=== PATIENT | male | born 1960 | race Caucasian/White ===

== ENCOUNTER 2023-04-11 11:36 | Outpatient (OUT) | payer MEDICARE, SELFPAY ==
[2023-04-11 12:19] LABS: Basophils Percent Auto 0.3 % (0.2-2.0); Eosinophils Absolute Auto 0.1 10^3/uL (0.0-0.7); Eosinophils Percent Auto 1.8 % (0.9-7.0); Hematocrit 44.8 % (42.0-54.0); Hemoglobin 14.2 g/dL (14.0-18.0); Immature Granulocytes Abs Auto 0.07 10^3/uL (0.00-0.03); Immature Granulocytes Pct Auto 2.1 % (0.0-0.5); Lymphocytes Absolute Auto 1.2 10^3/uL (1.2-3.8); Lymphocytes Percent Auto 35.9 % (20.5-60.0); Mean Corpuscular HGB Conc 31.7 g/dL (29.9-35.2); Mean Corpuscular Hemoglobin 26.6 pg (25.9-34.0); Mean Corpuscular Volume 83.9 fL (80.0-94.0); Mean Platelet Volume 9.3 fL (9.5-13.5); Monocytes Absolute Auto 0.2 10^3/uL (0.3-0.8); Monocytes Percent Auto 7.2 % (1.7-12.0); Neutrophils Absolute Auto 1.8 10^3/uL (1.4-6.5); Neutrophils Percent Auto 52.7 % (43.0-75.0); Platelet Count 116 10^3/uL (150-450); Red Blood Count 5.34 10^6/uL (4.70-6.10); Red Cell Distribution Width 15.9 % (11.0-15.0); White Blood Count 3.3 10^3/uL (4.0-11.0)
[2023-04-11 12:30] LABS: Alanine Aminotransferase 54 U/L (16-63); Albumin Globulin Ratio 1.1; Albumin Level 3.8 g/dL (3.4-5.0); Alkaline Phosphatase 92 U/L (46-116); Anion Gap 10.2; Aspartate Amino Transferase 36 U/L (15-37); BUN Creatinine Ratio 12.1; Bilirubin Total 0.6 mg/dL (0.2-1.0); Calcium 9.2 mg/dL (8.5-10.1); Carbon Dioxide 29.8 mmol/L (21.0-32.0); Chloride 108 mmol/L (98-107); Estimated GFR (African America 48 (>=60); Estimated GFR (Non-African Ame 40 (>=60); Globulin 3.5 g/dL; Glucose 104 mg/dL (74-106); Sodium 143 mmol/L (136-145); Total Protein 7.3 g/dL (6.4-8.2)
== END 2023-04-11 11:37 | disposition home or self-care (01) ==
LOC: LAB 11:43
PROVIDERS: PCP Family Medicine; Visit Provider Family Medicine
DX: R10.84 Generalized abdominal pain (principal)
CPT/HCPCS: 36415; 80053; 83690; 85025

== ENCOUNTER 2023-05-26 08:56 | Outpatient (OUT) | payer MEDICARE, SELFPAY ==
[2023-05-26 09:43] LABS: BUN Creatinine Ratio 14.4; Calcium 9.3 mg/dL (8.5-10.1); Carbon Dioxide 28.4 mmol/L (21.0-32.0); Chloride 106 mmol/L (98-107); Estimated GFR (African America 51 (>=60); Estimated GFR (Non-African Ame 42 (>=60); Glucose 114 mg/dL (74-106); Potassium 4.4 mmol/L (3.5-5.1); Sodium 141 mmol/L (136-145)
[2023-05-27 12:09] LABS: PTH, Intact 27 pg/mL (15-65)
== END 2023-05-26 08:57 | disposition home or self-care (01) ==
LOC: LAB 08:59
PROVIDERS: PCP Family Medicine; Visit Provider Internal Medicine
DX: C83.30 Diffuse large B-cell lymphoma, unspecified site (principal); Z76.82 Awaiting organ transplant status; I12.9 Hypertensive chronic kidney disease with stage 1 through stage 4 chronic kidney disease, or unspecified chronic kidney disease; N18.30 Chronic kidney disease, stage 3 unspecified; N25.81 Secondary hyperparathyroidism of renal origin
CPT/HCPCS: 36415; 80048; 83970; 84100

== ENCOUNTER 2023-08-11 08:47 | Outpatient (OUT) | payer MEDICARE, SELFPAY ==
[2023-08-11 09:19] LABS: Basophils Percent Auto 0.2 % (0.2-2.0); Eosinophils Absolute Auto 0.2 10^3/uL (0.0-0.7); Eosinophils Percent Auto 4.2 % (0.9-7.0); Hematocrit 44.4 % (42.0-54.0); Hemoglobin 13.9 g/dL (14.0-18.0); Immature Granulocytes Abs Auto 0.05 10^3/uL (0.00-0.03); Immature Granulocytes Pct Auto 1.1 % (0.0-0.5); Lymphocytes Absolute Auto 1.4 10^3/uL (1.2-3.8); Lymphocytes Percent Auto 29.8 % (20.5-60.0); Mean Corpuscular HGB Conc 31.3 g/dL (29.9-35.2); Mean Corpuscular Hemoglobin 26.8 pg (25.9-34.0); Mean Corpuscular Volume 85.5 fL (80.0-94.0); Mean Platelet Volume 10.1 fL (9.5-13.5); Monocytes Absolute Auto 0.3 10^3/uL (0.3-0.8); Monocytes Percent Auto 7.3 % (1.7-12.0); Neutrophils Absolute Auto 2.6 10^3/uL (1.4-6.5); Neutrophils Percent Auto 57.4 % (43.0-75.0); Platelet Count 124 10^3/uL (150-450); Red Blood Count 5.19 10^6/uL (4.70-6.10); Red Cell Distribution Width 15.1 % (11.0-15.0); White Blood Count 4.5 10^3/uL (4.0-11.0)
[2023-08-11 09:33] LABS: Alanine Aminotransferase 76 U/L (16-63); Albumin Globulin Ratio 0.9; Albumin Level 3.6 g/dL (3.4-5.0); Alkaline Phosphatase 120 U/L (46-116); Anion Gap 10.1; Aspartate Amino Transferase 31 U/L (15-37); Bilirubin Total 0.6 mg/dL (0.2-1.0); Calcium 9.1 mg/dL (8.5-10.1); Chloride 104 mmol/L (98-107); Estimated GFR (African America 52 (>=60); Estimated GFR (Non-African Ame 43 (>=60); Globulin 3.8 g/dL; Glucose 109 mg/dL (74-106); Lactate Dehydrogenase 209 U/L (85-227); Potassium 4.1 mmol/L (3.5-5.1); Sodium 139 mmol/L (136-145); Total Protein 7.4 g/dL (6.4-8.2)
== END 2023-08-11 08:48 | disposition home or self-care (01) ==
LOC: LAB 08:48
PROVIDERS: PCP Family Medicine
DX: C83.39 Diffuse large B-cell lymphoma, extranodal and solid organ sites (principal)
CPT/HCPCS: 36415; 80053; 83615; 85025

== ENCOUNTER 2023-09-10 10:19 | Outpatient (OUT) | payer MEDICARE, SELFPAY ==
--- OUTSIDE RECORDS SUMMARY | 2023-09-10 10:28 | XMS_ITS | CCD ---
Author Name Unknown Address [address] [facility] [id number] [place] [address] Organization [facility] Care Team Providers Care Solar Sales Rep Name Role Phone Christopher Watkins Unavailable Unavailable Nael Farias Unavailable Unavailable Nael Farias Unavailable Unavailable Unavailable MD Nael Farias 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 Provider [phone] MD Victor Hugo Farrell Attending Provider Andrea, Dr. Nael Brand 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 Unava ilable Anirudh Sears Attending Unavailable Andrea, Dr. Nael Brand 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 Unava ilable Anirudh Sears Attending Unavailable Anirudh Sears Attending Unavailable Andrea, Dr. Nael Brand 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 Unava ilable Unavailable Unavailable SANDRA COLE Admitting Unavailable SANDRA COLE Consulting Unavailable SANDRA COLE Attending Unavailable HEMEEVELYN ., DR GARCIA 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 Unavailable HEMEYER ., DR GARCIA Consulting Unavailable HEMEYER ., DR GARCIA Attending Unavailable HEMEYER ., DR GARCIA Admitting Unavailable HEMEYER ., DR GARCIA 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 Unavailable MISC, DR MATTHEW Consulting Unavailable HEMEYER ., DR GARCIA 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 Unavailable MISC, DR MATTHEW Attending Unavailable MISC, DR MATTHEW Admitting Unavailable MISC, DR MATTHEW Admitting Unavailable HEMEYER ., DR GARCIA 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 Unavailable MISC, DR MATTHEW Consulting Unavailable MISC, DR MATTHEW Attending Unavailable MISC, DR MATTHEW Admitting Unavailable HEMEYER ., DR GARCIA 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 Unavailable MISC, DR MATTHEW Consulting Unavailable MISC, DR MATTHEW Attending Unavailable MISC, DR MATTHEW Admitting Unavailable HEMEYER ., DR GARCIA 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 Unavailable MISC, DR MATTHEW Consulting Unavailable MISC, DR MATTHEW Attending Unavailable ZIEBER, DR JS Hubbard Consulting Unavailable HEMEYER ., DR GARCIA 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 Unavailable HEMEYER ., DR GARCIA Consulting Unavailable HEMEYER ., DR GARCIA Attending Unavailable HEMEYER ., DR GARCIA Admitting Unavailable MISC, DR MATTHEW Admitting Unavailable HEMEYER ., DR GARCIA 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 Unavailable MISC, DR MATTHEW Consulting Unavailable MISC, DR MATTHEW Attending Unavailable Unavailable Unavailable Dr. Fab Clark Attending Unavailable Hemeyer, Dr. Nael Brand [facility] Unava ilable Farrell, Victor Hugo Attending Unavailable HemeNael rivas [facility] Care Unavailable Farrell, Victor Hugo Admitting Unavailable Farrell, Victor Hugo Attending Unavailable HemeNael rivas [facility] Care Unavailable Farrell, Victor Hugo Admitting Unavailable Sears, Anirudh C Admitting Unavailable Sears, Anirudh C Attending Unavailable Andrea, Dr. Nael Brand [facility] Unava ilable Sears, Anirudh C Admitting Unavailable Sears, Anirudh C Attending Unavailable Andrea, Dr. Nael Brand 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 Unava ilable Hemeyer, Dr. Nael Brand [facility] Care Unava ilable Neha, Dr. White Attending Unavailable Neha, Dr. White Referring Unavailable Hemeyer, Dr. Nael Brand [facility] Care Unava ilable Neha, Dr. White Attending Unavailable Neha, Dr. White Referring Unavailable Hemeyer, Dr. Nael Brand [facility] Care Unava ilable Neha, Dr. White Attending Unavailable Neha, Dr. White Referring Unavailable Hemeyer, Dr. Nael Brand 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 Unava ilable Hemeyer, Dr. Nael Brand Referring Unava ilable Kelsey, Dr. Sandra Lopez Attending Unav ailable Hemeyer, Dr. Nael Brand [facility] Care Unava ilable Sears, Anirudh C Attending Unavailable Sears, Anirudh C Admitting Unavailable NOHELIA MACHADO Attending Unavailable SEARS, ANIRUDH C Attending Unavailable NAEL FARIAS [facility] Care Unavailab Nael Garcia MD 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 Provider Anirudh Sears MD Unavailable Allergies Allergy Classification Reported Allergen(s) Allergy Type Date of Onset Reaction(s) Facility (20 sources) Dapsonhardik; Translations: [dapsone] Drug Allergy 06-13-20 22 Rash [facility] (20 sources) Prochlorperazine; Translations: [Compazine] Drug Allergy [facility] Repository (20 sources) Sulfamethoxazole / Trimethoprim; Translations: [Bactrim DS TABS] Drug Allergy 08-04-20 23 Hives, Itching, Rash [facility] Work Phone: (16 sources) voriconazole; Translations: [voriconazole] Drug Allergy 08-04-20 23 Other [facility] Repository (1 source) Penicillins Allergy to substance 12-04-19 18 Unknown Reaction [facility] (6 sources) Prochlorperazine; Translations: [prochlorperazine] Drug Allergy 12-04-19 18 Other, Shortness of breath [facility] (3 sources) Sulfamethoxazole; Translations: [sulfamethoxazole] Drug Allergy 12-04-19 18 Unknown Reaction [facility] (3 sources) Trimethoprim; Translations: [trimethoprim] Drug Allergy 12-04-19 18 Unknown Reaction [facility] (1 source) Capsaicin Drug Allergy [facility] (1 source) Sulfamethoxazole / Trimethoprim Drug Allergy [facility] (1 source) Sulfamethoxazole / Trimethoprim; Translations: [SULFAMETHOXAZOLE-TR IMETHOPRIM] Drug Allergy 08-04-20 [facility] Medications Current Medications Medication Drug Class(es) Dates Sig (Normalized) Sig (Original) breath-actuated 120 actuat beclomethasone dipropionate 0.08 mg/actuat metered dose inhaler (1 source) Corticosteroid Start: 09-09-2023 End: 09-08-2024 beclomethasone dipropionate (Qvar) 80 mcg/actuation inhaler Indications: CVID (common variable immunodeficiency) ([facility]) Inhale 2 Inhalations 2 times a day. Rinse mouth out after inhalation. 10.6 g 3 09/09/2023 09/08/2024 Active calcitriol 0.50320 mg oral capsule (20 sources) Vitamin D3 Analog Start: 06-13-2022 take 0.5 ug by mouth twice daily Calcitriol Active 0.5 MCG PO Twice daily June 13, 2022 12:00am 2xW; weekends Start: 07-28-2019 calcitriol (Ro caltrol) 0.25 mcg capsule Take by mouth. 0 07/28/2019 Active Start: 07-28-2019 Calcitriol 0.2 5 MCG Oral Capsule TAKE 2 CAPSULES OVER THE WEEKENDS AND 1 CAPSULE THE OTHER DAYS Quantity: 117 Refills: 3 Ordered: 07-Apr-2023 Christopher Watkins MD Start : 28-Jul-2019 Active Start: 07-28-2019 take 1 capsule by [facility] every other day Calcitriol 0.25 MCG Oral Capsule One cap every other day. Quantity: 15 Refills: 10 Christopher Watkins MD Start : 28-Jul-2019 Active cetirizine hydrochloride 10 mg oral tablet (20 sources) Histamine-1 Receptor Antagonist take 1 tablet by mouth once daily cetirizine (ZyrTEC) 10 mg tablet Take 1 tablet (10 mg) by mouth once daily. 0 Active ZyrTEC Allergy 1 0 MG Oral Tablet Quantity: 0 Refills: 0 Ordered: 08-Mar-2019 DO Active Cetirizine / Pseudoephedrine (1 source) alpha-Adrenergic Agonist, Histamine-1 Receptor Antagonist Start: 06-13-2022 take 1 tablet by mouth once daily, then take 1 tablet by mouth every twelve hours Cetirizine-Pseudoephedrine (Zyrtec-D) 5-120 mg Tablet Extended Release 12 Hr Active 1 TAB PO Daily June 13, 2022 12:00am dextran 70 1 mg/ml / glycerin 2 mg/ml / hypromellose 3 mg/ml ophthalmic solution (2 sources) Plasma Volume Supervisor Asbestos Removal, Non-Standardized Chemical Allergen Start: 02-27-2019 artificial tears, pvjfywj-hfypfay-[id number], 0.1-0.3-0.2 % ophthalmic solution Administer into affected eye(s) 4 times a day as needed. 0 02/27/2019 Active diphenhydrAMINE hydrochloride 25 mg oral tablet (18 sources) Histamine-1 Receptor Antagonist Start: 01-16-2021 diphenhydrAMINE (Benadryl Allergy) 25 mg tablet Take by mouth. 0 01/16/2021 Active Start: 01-16-2021 Benadryl Aller gy 25 MG Oral Tablet take 20 minutes prior to infusion Quantity: 10 Refills: 0 Ordered: 16-Jan-2021 Kelsey GRACE, Sandra Daniel Start : 16-Jan-2021 Active 14 actuat fluticasone furoate 0.1 mg/actuat dry powder inhaler (16 sources) Corticosteroid Start: 04-09-2023 take 1 puff(s) by mouth once daily Arnuity Ellipta 100 mcg/actuation inhaler INHALE 1 PUFF BY MOUTH DAILY (rinse mouth after use) 0 04/09/2023 Active Start: 10-09-2022 take 1 puff(s) by mo [facility] once daily Arnuity Ellipta 100 MCG/ACT Inhalation Aerosol Powder Breath Activated INHALE 1 PUFF BY MOUTH DAILY Quantity: 30 Refills: 0 Ordered: 06-Nov-2022 DO Start : 09-Oct-2022 Active Start: 03-13-2018 take 1 spray(s) nasa l route once daily Fluticasone Propionate 50 MCG/ACT Nasal Suspension USE 1 SPRAY IN EACH NOSTRIL ONCE DAILY. Quantity: 1 Refills: 3 DO Start : 13-Mar-2018 Active Magnesium (16 sources) magnesium 200 mg tablet Take 1 tablet (200 mg) by mouth. 0 Active End: 08-13-2023 take 1 tablet by mouth once daily magnesium 200 mg tablet Take 1 tablet (200 mg) by mouth once daily. 0 08/13/2023 Discontinued (Med List Cleanup) take 1 tablet by [facility] once daily Magnesium 200 MG Oral Tablet TAKE 1 TABLET DAILY DIRECTED. Quantity: 0 Refills: 0 Ordered: 08-Nov-2021 DO Active magnesium gluconate 250 mg oral tablet (2 sources) Start: 06-13-2022 take 250 mg by mouth twice daily Magnesium Gluconate Active 250 MG PO Twice daily June 13, 2022 12:00am magnesium glucon ate 12.5 mg magne- sium (250 mg) tablet every 12 hours. 0 Active methocarbamol 750 mg oral tablet (15 sources) Muscle Relaxant Start: 12-19-2021 take 1 tablet by mouth three times daily as needed methocarbamol (Robaxin) 750 mg tablet Take 1 tablet (750 mg) by mouth 3 times a day as needed. 0 12/19/2021 Active omeprazole 20 mg delayed release oral capsule (20 sources) Proton Pump Inhibitor Start: 02-09-2016 End: 06-13-2022 omeprazole (PriLOSEC) [address] capsule Take by mouth once daily. 0 02/09/2016 Active Start: 02-09-2016 Omeprazole 20 MG Oral Capsule Delayed Release Quantity: 0 Refills: 0 Ordered: 09-Feb-2016 DO Start : 09-Feb-2016 Active oxyCODONE hydrochloride 5 mg oral tablet (3 sources) Opioid Agonist Start: 11-12-2018 oxyCODONE (Roxicodone) 5 mg immediate release tablet Take by mouth every 4 hours if needed. 0 11/12/2018 Active potassium 99 mg extended release oral tablet (14 sources) Start: 06-13-2022 take 99 mg by mouth once daily Potassium Active 99 MG PO Daily June 13, 2022 12:00am potassium citrate 99 mg oral tablet (2 sources) take 1 tablet by mouth once daily potassium citrate 99 mg capsule Take 1 tablet by mouth once daily. 0 Active valsartan 80 mg oral tablet (9 sources) Angiotensin 2 Receptor Muriel Start: 04-18-2023 valsartan (Diovan) 80 mg tablet Start: 01-29-2023 take 1 tablet by anthony th once daily Valsartan 80 MG Oral Tablet TAKE 1 TABLET BY MOUTH EVERY DAY Quantity: 90 Refills: 3 Ordered: 29-Jan-2023 Christopher Watkins MD Start : 29-Jan-2023 Active Completed/Discontinued Medications Medication Drug Class(es) Dates Sig (Normalized) Sig (Original) acetaminophen 325 mg oral capsule (18 sources) Start: 01-16-2021 End: 09-09-2023 acetaminophen (TylenoL) 325 mg capsule Take by mouth. 0 01/16/2021 09/09/2023 Discontinued (Med List Cleanup) Start: 01-16-2021 Tylenol 325 MG Oral Capsule take two tablets 20 minutes prior to infusion Quantity: 10 Refills: 0 Ordered: 16-Jan-2021 Sandra Cole MD Start : 16-Jan-2021 Active Start: 01-16-2021 Acetaminophen 325 MG Oral Tablet TAKE 2 TABLETS BY MOUTH 20 MIN PRIOR TO INFUSION Quantity: 10 Refills: 0 Ordered: 17-Jan-2021 DO Start : 16-Jan-2021 Complete acyclovir 400 mg oral tablet (7 sources) Herpesvirus Nucleoside Analog DNA Polymerase Inhibitor, Herpes Simplex Virus Nucleoside Analog DNA Polymerase Inhibitor, Herpes Zoster Virus Nucleoside Analog DNA Polymerase Inhibitor Start: 12-17-2017 take 1 tablet by mouth twice daily Acyclovir 400 MG Oral Tablet TAKE 1 TABLET TWICE DAILY. Quantity: 0 Refills: 0 Ordered: 17-Dec-2017 DO Start : 17-Dec-2017 Active albuterol 0.83 mg/ml inhalation solution (20 sources) beta2-Adrenergic Agonist Start: 07-01-2022 Albuterol Sulfate (2.5 MG/3ML) 0.083% Inhalation Nebulization Solution Quantity: 375 Refills: 0 Ordered: 01-Jul-2022 DO Start : 01-Jul-2022 Active Start: 06-13-2022 take 2.5 mg by inhal ation every six hours Albuterol Sulfate Active 2.5 MG INHALATION Q6H June 13, 2022 12:00am Start: 06-13-2022 take 1 puff(s) by in halation every four hours Albuterol Sulfate Active 1 PUFF INHALATION Q4H June 13, 2022 12:00am Start: 06-13-2020 albuterol 0.63 mg/3 mL nebulizer solution Inhale. 0 06/13/2020 Active Start: 06-13-2020 take 1 [IU] by inhal ation every four to six hours as needed Albuterol Sulfate 0.63 MG/3ML Inhalation Nebulization Solution USE 1 UNIT DOSE IN NEBULIZER EVERY 4 TO 6 HOURS NEEDED. Quantity: 0 Refills: 0 Ordered: 13-Jun-2020 DO Start : 13-Jun-2020 Active amLODIPine 5 mg oral tablet (12 sources) Dihydropyridine Calcium Channel Muriel Start: 03-12-2022 End: 09-09-2023 take 1 tablet by mouth once daily amLODIPine (Norvasc) 5 mg tablet Take 1 tablet (5 mg) by mouth once daily. 0 03/12/2022 09/09/2023 Discontinued (Therapy completed) cefdinir 300 mg oral capsule (2 sources) Cephalosporin Antibacterial Start: 11-20-2022 End: 09-09-2023 take 1 capsule by mouth twice daily cefdinir (Omnicef) 300 mg capsule Take 1 capsule (300 mg) by mouth 2 times a day. 0 11/20/2022 09/09/2023 Discontinued (Therapy completed) cefuroxime 500 mg oral tablet (2 sources) Cephalosporin Antibacterial Start: 10-31-2022 End: 09-09-2023 take 1 tablet by mouth twice daily cefuroxime (Ceftin) 500 mg tablet Take 1 tablet (500 mg) by mouth 2 times a day. 0 10/31/2022 09/09/2023 Discontinued (Therapy completed) cholecalciferol 0.125 mg oral tablet (2 sources) Vitamin D Start: 12-03-2017 End: 06-13-2022 take 1 tablet by mouth once daily Cholecalciferol (Vitamin D3) (Vitamin D3) 5,000 unit Tablet Discontinued 5000 UNIT PO Daily December 03, 2017 12:00am June 13, 2022 8:53am chondroitin sulfates 200 mg / glucosamine hydrochloride 250 mg oral tablet (2 sources) Start: 12-03-2017 End: 06-13-2022 take 2 tablets by mouth once daily Glucosamine-Chondro itin (Osteo Bi-Flex) 250-200 mg Tablet Discontinued 2 TAB PO Daily December 03, 2017 12:00am June 13, 2022 8:53am ergocalciferol 46781 unt oral capsule (5 sources) Provitamin D2 Compound Vitamin D (Ergocalciferol) 1.25 MG (22799 UT) Oral Capsule Refills: 0 DO Active Vitamin D (Ergoc alciferol) 70556 UNIT Oral Capsule Refills: 0 Active fluconazole 200 mg oral tablet (3 sources) Azole Antifungal Start: 10-03-2022 End: 09-09-2023 take 1 tablet by mouth once daily fluconazole (Diflucan) 200 mg tablet Take 1 tablet (200 mg) by mouth once daily. 0 10/03/2022 09/09/2023 Discontinued (Therapy completed) Start: 03-20-2021 take 1 tablet by anthony once daily Fluconazole 200 MG Oral Tablet take 1 tablet by mouth once daily for 10 days Quantity: 14 Refills: 0 Ordered: 20-Mar-2021 DO Start : 20-Mar-2021 Complete gabapentin 100 mg oral capsule (20 sources) Anti-epileptic Agent Start: 02-20-2023 End: 08-13-2023 take 1 capsule by mouth twice daily at bedtime gabapentin (Neurontin) 100 mg capsule TAKE 1 CAPSULE BY MOUTH TWICE DAILY in addition to the 300mg AT BEDTIME 0 02/25/2023 08/13/2023 Discontinued (Med List Cleanup) Start: 06-13-2020 gabapentin (Ne urontin) 300 mg capsule Take by mouth. 0 06/13/2020 Active Start: 06-13-2020 Gabapentin 300 MG Oral Capsule Quantity: 0 Refills: 0 Ordered: 13-Jun-2020 DO Start : 13-Jun-2020 Active Hyaluronidase (9 sources) Endoglycosidase Start: 04-23-2023 End: 09-09-2023 HyQvia 5 gram /50 mL (10 %) solution Start: 04-23-2023 HyQvia 5 gram /50 mL (10 %) solution Start: 06-13-2022 Igg-Hyaluronid ase,Recombinant (Hyqvia) 5 gram /50 mL (10 %) Solution Active 50 ML SUBCUT Q28D June 13, 2022 12:00am Start: 11-06-2021 End: 09-09-2023 immune globulin-hyaluronidas e (HyQvia) 2.5 gram /25 mL (10 %) solution Inject under the skin. 0 11/06/2021 09/09/2023 Discontinued (Cost of medication) Start: 11-06-2021 End: 09-09-2023 HyQvia 20 gram /200 mL (10 % ) solution Inject under the skin. 0 11/06/2021 09/09/2023 Discontinued (Cost of medication) Start: 11-06-2021 immune globuli n-hyaluronidase (HyQvia) 2.5 gram /25 mL (10 %) solution Inject under the skin. 0 11/06/2021 Active Start: 11-06-2021 HyQvia 20 gram /200 mL (10 %) solution Inject under the skin. 0 11/06/2021 Active End: 09-09-2023 immune globulin-hyaluronidas e (HyQvia) 2.5 gram /25 mL (10 %) solution Inject under the skin. 0 09/09/2023 Discontinued (Cost of medication) immune globulin- hyaluronidase (HyQvia) 2.5 gram /25 mL (10 %) solution Inject under the skin. 0 Active hydrocortisone 25 mg/ml topical cream (17 sources) Corticosteroid Start: 01-17-2021 End: 09-09-2023 hydrocortisone 2.5 % cream Apply topically. Apply to affected areas 2-3 times daily 0 01/17/2021 09/09/2023 Discontinued (Cost of medication) Start: 01-17-2021 Hydrocortisone 2.5 % External Cream APPLY 2-3 TIMES DAILY TO AFFECTED AREA(S). Quantity: 1 Refills: 0 Ordered: 17-Jan-2021 Sandra Cole MD Start : 17-Jan-2021 Active Hyqvia 2.5 GM/25ML Subcutane ous Kit (13 sources) Start: 11-06-2021 Hyqvia 2.5 GM/ 25ML Subcutaneous Kit evry 28 days Quantity: 0 Refills: 0 Ordered: 08-Nov-2021 DO Start : 06-Nov-2021 Active Start: 11-06-2021 Hyqvia 2.5 GM/ 25ML Subcutaneous Kit Quantity: 0 Refills: 0 Ordered: 08-Nov-2021 DO Start : 06-Nov-2021 Active Hyqvia 20 GM/200ML Subcutaneous Kit (6 sources) Start: 11-06-2021 Hyqvia 20 GM/200ML Subcutaneous Kit Quantity: 0 Refills: 0 Ordered: 08-Nov-2021 DO Start : 06-Nov-2021 Active levoFLOXacin 750 mg oral tablet (2 sources) Quinolone Antimicrobial Start: 11-19-2022 End: 09-09-2023 take 1 tablet by mouth once daily levoFLOXacin (Levaquin) 750 mg tablet TAKE 1 TABLET BY MOUTH ONCE DAILY FOR 10 DAYS 0 11/19/2022 09/09/2023 Discontinued (Therapy completed) lidocaine 25 mg/ml / prilocaine 25 mg/ml topical cream (11 sources) Antiarrhythmic, Amide Local Anesthetic Start: 08-15-2022 Lidocaine-Prilocai ne 2.5-2.5 % External Cream APPLY TO AREA AND COVER WITH saran wrap 1 HOUR BEFORE APPOINTMENT. Quantity: 1 Refills: 0 Ordered: 19-Aug-2022 Sandra Cole MD Start : 15-Aug-2022 Active Start: 10-12-2021 Lidocaine-Pril ocaine 2.5-2.5 % External Cream Quantity: 30 Refills: 0 Ordered: 12-Oct-2021 DO Start : 12-Oct-2021 Complete loratadine 10 mg oral tablet (2 sources) Start: 12-03-2017 End: 06-13-2022 take 1 tablet by mouth once daily Loratadine (Claritin) 10 mg Tablet Discontinued 10 MG PO Daily December 03, 2017 12:00am June 13, 2022 8:53am losartan potassium 25 mg oral tablet (6 sources) Angiotensin 2 Receptor Muriel Start: 06-13-2022 take 1 tablet by mouth once daily Losartan Potassium 25 MG Oral Tablet TAKE 1 TABLET DAILY. Quantity: 0 Refills: 0 Ordered: 09-Jul-2022 DO Start : 09-Jul-2022 Active ondansetron 4 mg oral tablet (19 sources) Serotonin-3 Receptor Antagonist Start: 06-13-2020 End: 08-13-2023 ondansetron (Zofran) 4 mg tablet Take by mouth. 0 06/13/2020 08/13/2023 Discontinued (Med List Cleanup) Start: 06-13-2020 Zofran 4 MG Or al Tablet Quantity: 0 Refills: 0 Ordered: 13-Jun-2020 DO Start : 13-Jun-2020 Active Start: 02-01-2019 ondansetron (Z ofran) 8 mg tablet Take by mouth every 8 hours if needed. 0 02/01/2019 Active pot bicarb/potassium cit/ca (POTASSIUM BICARBONATE ORAL) (2 sources) End: 09-09-2023 pot bicarb/potassium cit/ca (POTASSIUM BICARBONATE ORAL) Take 99 mg by mouth. 0 09/09/2023 Discontinued (Therapy completed) pot bicarb/potas sium cit/ca (POTASSIUM BICARBONATE ORAL) Take 99 mg by mouth. 0 Active predniSONE 50 mg oral tablet (2 sources) Start: 01-16-2021 predniSONE 50 MG Oral Tablet take 30 minutes prior to infusion Quantity: 10 Refills: 0 Ordered: 16-Jan-2021 Sandra Cole MD Start : 16-Jan-2021 Active traMADol hydrochloride 50 mg oral tablet (2 sources) Opioid Agonist Start: 12-03-2017 End: 06-13-2022 take 50 mg by mouth once daily Tramadol Discontinued 50 MG PO Daily December 03, 2017 12:00am June 13, 2022 8:53am traZODone hydrochloride 50 mg oral tablet (2 sources) Serotonin Reuptake Inhibitor Start: 12-03-2017 End: 06-13-2022 take 50 mg by mouth at bedtime Trazodone Discontinued 50 MG PO Bedtime December 03, 2017 12:00am June 13, 2022 8:53am Problems Active Problems Problem Classification Problem Date Documented Date Episodic/Chronic Acute and unspecified renal failure (15 sources) Injury of kidney; Translations: [Acute kidney failure, unspecified] Onset: 3 08-04-2023 Episodic Asthma (1 source) Asthma; Translations: [Unspecified asthma, uncomplicated] Onset: 4 09-10-2023 Chronic Cataract (20 sources) Nuclear senile cataract; Translations: [Senile nuclear sclerosis] Onset: 9 08-04-2023 Chronic Chronic kidney disease (20 sources) Chronic kidney disease stage 3; Translations: [Chronic kidney disease, Stage III (moderate)] Onset: 2 08-04-2023 Chronic Chronic kidney disease (1 source) Chronic kidney disease; Translations: [CHRONIC KIDNEY DISEASE STAGE 3B] Onset: 2 Coagulation and hemorrhagic disorders (15 sources) Platelet count below reference range; Translations: [Thrombocytopenia, unspecified] Onset: 3 08-04-2023 Chronic Complication of device; implant or graft (20 sources) Graft versus host disease; 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, unspecified] Chronic Deficiency and other anemia (1 source) Antineoplastic chemotherapy induced pancytopenia; Translations: [Antineoplastic chemotherapy induced pancytopenia] Onset: 3 Chronic Essential hypertension (20 sources) Benign essential hypertension; Translations: [Benign essential hypertension] Onset: 3 08-04-2023 Chronic Genitourinary symptoms and ill-defined conditions (20 sources) H/O: kidney disease; Translations: [Urinary symptoms ] Onset: 2 Episodic Headache; including migraine (5 sources) Headache; Translations: [Head ache] Episodic Immunity disorders (20 sources) Hypogammaglobulinemia; Translations: [Hypogammaglobulinemia, unspecified] Onset: 3 Chronic Non-Hodgkin`s lymphoma (20 sources) Diffuse non-Hodgkin's lymphoma, large cell (clinical); Translations: [Other malignant lymphomas, unspecified site, extranodal and solid organ sites] Onset: 2 Chronic Non-Hodgkin`s lymphoma (20 sources) History of B-cell lymphoma; Translations: [Personal history of other lymphatic and hematopoietic neoplasms] Episodic Other circulatory disease (20 sources) H/O: hypertension; Translations: [Personal history of other diseases of circulatory system] Episodic Other circulatory disease (15 sources) Orthostatic hypotension; Translations: [Orthostatic hypotension] Onset: 3 08-04-2023 Episodic Other connective tissue disease (6 sources) Cramp; Translations: [Cramp of limb] Episodic Other connective tissue disease (1 source) Cramp and spasm; Translations: [Cramp and spasm] Onset: 3 Episodic Other diseases of kidney and ureters (17 sources) Renal mass; Translations: [Unspecified disorder of kidney and ureter] Onset: 3 08-04-2023 Chronic Other diseases of kidney and ureters (5 sources) Renal mass; Translations: [Left renal mass] Episodic Other endocrine disorders (19 sources) Secondary hyperparathyroidism; Translations: [Secondary hyperparathyroidism (of renal origin)] Onset: 3 08-04-2023 Chronic Other nervous system disorders (1 source) Polyneuropathy, unspecified; Translations: [Polyneuropathy, unspecified] Onset: 2 Chronic Other screening for suspected conditions (not mental disorders or infectious disease) (4 sources) Other specified abnormal findings of blood chemistry; Translations: [OTH SPEC ABNORMAL FINDINGS BLD CHEM] Onset: 3 Episodic Other skin disorders (3 sources) Eruption; Translations: [Rash and other nonspecific skin eruption] Episodic Other upper respiratory infections (8 sources) Chronic sphenoidal sinusitis; Translations: [Chronic sphenoidal sinusitis] Chronic Residual codes; unclassified (5 sources) Procedure indicated; Translations: [Awaiting organ transplant status] Chronic Residual codes; unclassified (10 sources) Awaiting transplantation; Translations: [Awaiting organ transplant status] Chronic Secondary malignancies (15 sources) Secondary malignant neoplasm of kidney; Translations: [Secondary malignant neoplasm of kidney] Onset: 3 08-04-2023 Chronic Systemic lupus erythematosus and connective tissue disorders (5 sources) Keratoconjunctivitis sicca; 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] Chronic Unclassified (3 sources) COUGH, UNSPECIFIED; Translations: [COUGH, UNSPECIFIED] Onset: 2 Unclassified (1 source) Encounter for screening for malignant neoplasm of colon; Translations: [Encounter for screening for malignant neoplasm of colon] Onset: 2 Unclassified (1 source) Encounter for preprocedural laboratory examination; Translations: [Encounter for preprocedural laboratory examination] Onset: 2 Past or Other Problems Problem Classification Problem Date Documented Date Episodic/Chronic E Codes: Adverse effects of medical drugs (1 source) Adverse effect of antineoplastic and immunosuppressive drugs, sequela; Translations: [ADVRS EFF ANTINEOPL IMMUNOSUP SEQ] Onset: 04-05-2022 Episodic Lung disease due to external agents (1 source) Drug-induced interstitial lung disorders, unspecified; Translations: [DRUG-INDUCD INTERSTIT LUNG D/O UNS] Onset: 04-05-2022 Episodic Neoplasms of unspecified nature or uncertain behavior (20 sources) 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; Translations: [Neoplasm of uncertain behavior of other and unspecified respiratory organs] Resolved: 06-28-2016 Episodic Other eye disorders (20 sources) Tear film insufficiency; Translations: [Tear film insufficiency, unspecified] Onset: 04-08-2019 Episodic Other eye disorders (20 sources) Dry eyes; Translations: [Tear film insufficiency, unspecified] Onset: 04-08-2019 Episodic Unclassified (5 sources) Procedure indicated; Translations: [Stem cell transplant candidate] Unclassified (13 sources) Never smoked tobacco; Translations: [Never a smoker] Unclassified (1 source) COUGH, UNSPECIFIED; Translations: [COUGH, UNSPECIFIED] Onset: 07-18-2022 NEGATED: Highlighted row has not occurred!Residual codes; unclassified (20 sources) Disease Episodic Results Test Name Value Interpretation Reference Range Facility Office Visit ([facility] - Established)on 05-29-2023 Follow-up visit Diagnoses/Problems Benign essential HTN (401.1) (I10) CKD (chronic kidney disease), stage III (585.3) (N18.30) Hyperparathyroidism, secondary (588.81) (N25.81) Orders Benign essential HTN, CKD (chronic kidney disease), stage III, Hyperparathyroidism, secondary Basic Metabolic Panel; Status:Active; Requested for:[id number]; Parathormone Intact, Serum; Status:Active; Requested for:[id number]; Provider Impressions 1- CKD III: His Cr level is 1.67. Stable kidney function. He has history of lymphoma with multiple relapses. He had multiple exposures to iv contrast over the past few years. He had a CAR-T treatment back in December 2018. He is getting IVIG. Last spot urine protein to creatinine ratio did not show significant proteinuria. Volume status is good. His blood pressure is good. 2- Secondary hyperparathyroidism: He is on calcitriol with good PTH level. I will see him in about 4 months for follow-up. Chief Complaint Pt's f/u PT in office for their 6 month f.u History of Present Illness The patient is being seen for a routine clinic follow-up of chronic kidney disease. This is classified as stage 3. Recently, the disease has been stable. Disease complications: hyperparathyroidism, but no hyperkalemia, no hypocalcemia, no hyperphosphatemia, no metabolic acidosis, no coagulopathy, no uremic encephalopathy, no neuropathy and no renal osteodystrophy. The patient is currently asymptomatic. No associated symptoms are reported. Review of Systems The patient does not have any dizziness or lightheadedness. No chills and no fever. No headaches. No nausea and no vomiting. No chest pain. No chest tightness. No abdominal pain. No diarrhea and no constipation. The patient denies any hematemesis or hemoptysis. No hematuria. No rectal bleeding. No melena. No epistaxis. The patient denies any urinary symptoms. No frequency, no hesitancy, and no urgency. No flank pain. The patient denies any leg edema. No leg pain. The patient denies any feeling of weakness. No itching. Overall, the rest of the review of systems is also negative. 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) Never a smoker Orthostatic hypotension (458.0) (I95.1) 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) Stem cell transplant candidate (V49.83) (Z76.82) Thrombocytopenia (287.5) (D69.6) Past Medical History History of Bilateral dry eyes (375.15) (H04.123) History of Dry eye syndrome (375.15) (H04.129) 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) History of B-cell lymphoma (V10.79) (Z85.72) History of hypertension (V12.59) (Z86.79) History of kidney disease (V13.09) (Z87.448) 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) Resolved Date: 28 Jun 2016 Surgical History History of Plantar fasciotomy Family History Family history of Alzheimer's disease (V17.2) (Z82.0) Family history of asthma (V17.5) (Z82.5) Family history of eczema (V19.4) (Z84.0) Family history of malignant neoplasm (V16.9) (Z80.9) Family history of Seasonal allergies Family history of asthma (V17.5) (Z82.5) Family history of eczema (V19.4) (Z84.0) Family history of malignant neoplasm of prostate (V16.42) (Z80.42) Family history of Seasonal allergies Family history of malignant neoplasm (V16.9) (Z80.9) Family history of malignant neoplasm (V16.9) (Z80.9) Family history of multiple myeloma (V16.7) (Z80.7) Family history of glaucoma (V19.11) (Z83.511) Social History Alcohol use (V49.89) (Z78.9) Caffeine use (V49.89) (Z78.9) Currently working Lives with family Never a smoker No illicit drug use Allergies Bactrim DS TABS Recorded By: Komal Jack; 12/17/2017 2:50:40 PM Compazine Recorded By: Komal Jack; 12/17/2017 2:53:15 PM dapsone Recorded By: Marcy Rene; 03/08/2019 2:38:38 PM voriconazole Recorded By: Soo Denton; 10/01/2021 9:50:46 AM No Known Environmental Allergies Recorded By: Samantha Kay; 02/09/2016 8:35:31 AM No Known Food Allergies Recorded By: Samantha Kay; 02/09/2016 8:35:31 AM Current Meds Medication NameInstruction Albuterol Sulfate 0.63 MG/3ML Inhalation Nebulization SolutionUSE 1 UNIT DOSE IN NEBULIZER EVERY 4 TO 6 HOURS NEEDED. amLODIPine Besylate 5 MG Oral TabletTAKE 1 TABLET DAILY DIRECTED. Arnuity Ellipta 100 MCG/ACT Inhalation Aerosol Powder Breath ActivatedINHALE 1 PUFF BY MOUTH DAILY Benadryl Allergy 25 MG Oral Tablettake 20 minutes prior (more content not included)... [facility] Phone Note - Heme Onc-appoin tment question - 04/29/23 [facility] 04-28-2023 Phone Note - Heme Onc-appointment question - 04/29/23 appt Phone Call Information: Patient Demographics: Name: KATERINA DANIELLE Date: 1960 Address: [address] [place] [address] Date and Time: 28-Apr-2023 09:18 Caller Information: call from Call From: patient Primary Phone Number: [phone] Reason for Call: Reason for Callappointment question, 04/29/23 appt Message: Message: VM Got a call about appointment on 04/29/23. Was not aware of this- thought next appointment in July. Is this correct Team Communication: Clinician note: contacted patient Team Communications: Spoke with the patient. Noticed that the appt for tomorrow was scheduled with Albaro after phone message where patient called in for abd pain, bloating and Albaro wanted to see patient after CT, lab, GI appt. States he has a FUV with his PCP this week for the same s/s. Pt prefers to see PCP (10 minutes from house) versus Albaro/Dr. Sears- (2hours away). Explained to patient that I would cancel appt for tomorrow with Albaro but patient can call office back at anytime with any further questions or concerns, Tea Oro 04/28/2023 09:30 Tea Oro 04/28/2023 09:34 Outpatient Medication Profile: * Patient Currently Takes Medications as of 22-Jan-2023 13:01 documented in Structured Notes gabapentin 300 mg oral capsule: 1 cap(s) orally once a day , Start Date: 06-Sep-2022 omeprazole 20 mg oral delayed release tablet: 1 tab(s) orally once a day, Start Date: 10-Jun-2019 Artificial Tears ophthalmic solution: 1 drop(s) in each eye 4 times a day, As Needed -for dry eyes , Start Date: 27-Feb-2019 ondansetron 8 mg oral tablet: 1 tab(s) orally every 8 hours, As Needed -for nausea and vomiting , Start Date: 01-Feb-2019 oxyCODONE 5 mg oral tablet: 1 tab(s) orally every 4 hours, As needed, Pain - Mod (4-6), Start Date: 12-Nov-2018 albuterol 2.5 mg/3 mL (0.083%) inhalation solution: 3 milliliter(s) by nebulizer 2 times a day, As Needed , Start Date: 18-Sep-2018 albuterol 90 mcg/inh inhalation aerosol: 2 puff(s) inhaled 4 times a day, As Needed for shortness of breath, Start Date: 18-Sep-2018 ZyrTEC 10 mg oral tablet: 1 tab(s) orally once a day calcitriol: 20 milligram(s) orally once a day, M-F 2x a day Sat-Sun Hyqvia 10%-160 units/mL subcutaneous solution: every 28 days Arnuity Ellipta 100 mcg inhalation powder: 1 puff(s) inhaled every 24 hours potassium bicarbonate-sodium bicarbonate: 99 milligram(s) orally once a day magnesium calcitrate: 200 milligram(s) orally once a day Orders: Complete Blood Count + Differential, 28-May-2018 Complete Blood Count + Differential, 14-Nov-2021 Comprehensive Metabolic Panel, 14-Nov-2021 Complete Blood Count + Differential, 29-Aug-2022 Comprehensive Metabolic Panel, 29-Aug-2022 Lactate Dehydrogenase, Serum, 29-Aug-2022 Magnesium, Serum, 29-Aug-2022 Complete Blood Count + Differential, 25-Jul-2023 Comprehensive Metabolic Panel, 25-Jul-2023 Lactate Dehydrogenase, Serum, 25-Jul-2023 Allergies: Bactrim: Rash, Hives/Urticaria, Itching Compazine: Other (Moderate), Resp Distress dapsone: Rash voriconazole: Other Lab Results: Results CBC date/time WBC HGB HCT PLT Neut 10-Oct-2022 15:36 N/A N/A N/A N/A N/A BMP date/time NA K CL CO2 BUN CREAT 21-Jan-2023 08:08 N/A N/A N/A N/A N/A N/A Hepatic date/time T Pro T Bili AST ALT ALKP ALB 12-Jan-2019 03:46 4.6(L) 0.8 N/A 13 202(H) 3.1(L) LDH date/time LDH 21-Jan-2023 08:08 N/A Scheduling Orders: Reason for request:Patient Requested. Electronic Signatures: Tea Oro (N MGR) (Signed 28-Apr-2023 09:34) Authored: Phone Call Information, Scheduling Orders Ashley Dugan (UNIT SECT) (Signed 28-Apr-2023 09:19) Authored: Phone Call Information, Outpatient Medication Profile, Orders, Allergies, Results Last Updated: 28-Apr-2023 09:34 by Tea Oro (N MGR) Normal [facility] Phone Note - Heme Onc-test r esultson 04-15-2023 Phone Note - Heme Onc-test results Phone Call Information: Patient Demographics: Name: KATERINA DANIELLE Date: 1960 Address: [address] [place] [address] Date and Time: 15-Apr-2023 14:56 Caller Information: call from Call From: patient Primary Phone Number: [phone] Reason for Call: Reason for Calltest results Message: Message: Calling to see if Dr. Sears had time to see results from labs on Friday His PCP really didn't find anything wrong and wants to order a CT. Patient would like to know Dr. Sears's thoughts first before continuing with this. Should have come from [place]. Team Communication: Team Communications: I spoke Katerina I did let him know that we do have his blood work. He stated that he saw his PCP for ABD pain and tenderness and they want to order a CT and US. He was unsure if he should do it. I did let him know that if his PCP is recommending further testing and is currently still in pain that we would recommend keeping that stephanie and he can fax all results to us so we can have them on file. He was very appreciative and verbalized understanding. he will continue with the scan and US Zofia Smith 04/15/2023 15:30 Outpatient Medication Profile: * Patient Currently Takes Medications as of 22-Jan-2023 13:01 documented in Structured Notes gabapentin 300 mg oral capsule: 1 cap(s) orally once a day , Start Date: 06-Sep-2022 omeprazole 20 mg oral delayed release tablet: 1 tab(s) orally once a day, Start Date: 10-Jun-2019 Artificial Tears ophthalmic solution: 1 drop(s) in each eye 4 times a day, As Needed -for dry eyes , Start Date: 27-Feb-2019 ondansetron 8 mg oral tablet: 1 tab(s) orally every 8 hours, As Needed -for nausea and vomiting , Start Date: 01-Feb-2019 oxyCODONE 5 mg oral tablet: 1 tab(s) orally every 4 hours, As needed, Pain - Mod (4-6), Start Date: 12-Nov-2018 albuterol 2.5 mg/3 mL (0.083%) inhalation solution: 3 milliliter(s) by nebulizer 2 times a day, As Needed , Start Date: 18-Sep-2018 albuterol 90 mcg/inh inhalation aerosol: 2 puff(s) inhaled 4 times a day, As Needed for shortness of breath, Start Date: 18-Sep-2018 ZyrTEC 10 mg oral tablet: 1 tab(s) orally once a day calcitriol: 20 milligram(s) orally once a day, M-F 2x a day Sat-Sun Hyqvia 10%-160 units/mL subcutaneous solution: every 28 days Arnuity Ellipta 100 mcg inhalation powder: 1 puff(s) inhaled every 24 hours potassium bicarbonate-sodium bicarbonate: 99 milligram(s) orally once a day magnesium calcitrate: 200 milligram(s) orally once a day Orders: Complete Blood Count + Differential, 28-May-2018 Complete Blood Count + Differential, 14-Nov-2021 Comprehensive Metabolic Panel, 14-Nov-2021 Complete Blood Count + Differential, 29-Aug-2022 Comprehensive Metabolic Panel, 29-Aug-2022 Lactate Dehydrogenase, Serum, 29-Aug-2022 Magnesium, Serum, 29-Aug-2022 Complete Blood Count + Differential, 25-Jul-2023 Comprehensive Metabolic Panel, 25-Jul-2023 Lactate Dehydrogenase, Serum, 25-Jul-2023 Allergies: Bactrim: Rash, Hives/Urticaria, Itching Compazine: Other (Moderate), Resp Distress dapsone: Rash voriconazole: Other Lab Results: Results CBC date/time WBC HGB HCT PLT Neut 10-Oct-2022 15:36 N/A N/A N/A N/A N/A BMP date/time NA K CL CO2 BUN CREAT 21-Jan-2023 08:08 N/A N/A N/A N/A N/A N/A Hepatic date/time T Pro T Bili AST ALT ALKP ALB 12-Jan-2019 03:46 4.6(L) 0.8 N/A 13 202(H) 3.1(L) LDH date/time LDH 21-Jan-2023 08:08 N/A Electronic Signatures: Zofia Smith (KLEVER) (Signed 15-Apr-2023 15:30) Authored: Phone Call Information Ashley Dugan (UNIT SECT) (Signed 15-Apr-2023 14:58) Authored: Phone Call Information, Outpatient Medication Profile, Orders, Allergies, Results Last Updated: 15-Apr-2023 15:30 by Zofia Smith (RN) [facility] Phone Note - Heme Onc-pain - Pain/tenderness in abdomenon 04-08-2023 Phone Note - Heme Onc-pain - Pain/tenderness in abdomen Phone Call Information: Patient Demographics: Name: KATERINA DANIELLE Date: 1960 Address: [address] [place] [address] Date and Time: 08-Apr-2023 09:26 Caller Information: call from Call From: patient Primary Phone Number: [phone] Reason for Call: Reason for Callpain, Pain/tenderness in abdomen Message: Message: VM Having issues with tenderness in abdomen. Doesn't see Dr. Sears until July. Has been a while since PET scan- not sure if he might need See Dr. Sears sooner Team Communication: Team Communications: Spoke with patient, he has had chronic abdominal tenderness and discomfort, states he has now begun to feel bloated and uncomfortable when sitting up but relief when lying down. Discussed with Albaro, patient referred to GI with lab work and follow-up with Albaro in three weeks. Called patient back and he states he has seen GI in the past and had a colonoscopy last year. He will call their office and make a follow-up and if he isn't able to, he said he will ask his PCP for a referral as he lives two hours away. Blood work requisitions will be mailed to patient. He has no additional questions. Nikki Aguilera 04/08/2023 10:46 Outpatient Medication Profile: * Patient Currently Takes Medications as of 22-Jan-2023 13:01 documented in Structured Notes gabapentin 300 mg oral capsule: 1 cap(s) orally once a day , Start Date: 06-Sep-2022 omeprazole 20 mg oral delayed release tablet: 1 tab(s) orally once a day, Start Date: 10-Jun-2019 Artificial Tears ophthalmic solution: 1 drop(s) in each eye 4 times a day, As Needed -for dry eyes , Start Date: 27-Feb-2019 ondansetron 8 mg oral tablet: 1 tab(s) orally every 8 hours, As Needed -for nausea and vomiting , Start Date: 01-Feb-2019 oxyCODONE 5 mg oral tablet: 1 tab(s) orally every 4 hours, As needed, Pain - Mod (4-6), Start Date: 12-Nov-2018 albuterol 2.5 mg/3 mL (0.083%) inhalation solution: 3 milliliter(s) by nebulizer 2 times a day, As Needed , Start Date: 18-Sep-2018 albuterol 90 mcg/inh inhalation aerosol: 2 puff(s) inhaled 4 times a day, As Needed for shortness of breath, Start Date: 18-Sep-2018 ZyrTEC 10 mg oral tablet: 1 tab(s) orally once a day calcitriol: 20 milligram(s) orally once a day, M-F 2x a day Sat-Sun Hyqvia 10%-160 units/mL subcutaneous solution: every 28 days Arnuity Ellipta 100 mcg inhalation powder: 1 puff(s) inhaled every 24 hours potassium bicarbonate-sodium bicarbonate: 99 milligram(s) orally once a day magnesium calcitrate: 200 milligram(s) orally once a day Orders: Complete Blood Count + Differential, 28-May-2018 Complete Blood Count + Differential, 14-Nov-2021 Comprehensive Metabolic Panel, 14-Nov-2021 Complete Blood Count + Differential, 29-Aug-2022 Comprehensive Metabolic Panel, 29-Aug-2022 Lactate Dehydrogenase, Serum, 29-Aug-2022 Magnesium, Serum, 29-Aug-2022 Complete Blood Count + Differential, 25-Jul-2023 Comprehensive Metabolic Panel, 25-Jul-2023 Lactate Dehydrogenase, Serum, 25-Jul-2023 Allergies: Bactrim: Rash, Hives/Urticaria, Itching Compazine: Other (Moderate), Resp Distress dapsone: Rash voriconazole: Other Lab Results: Results CBC date/time WBC HGB HCT PLT Neut 10-Oct-2022 15:36 N/A N/A N/A N/A N/A BMP date/time NA K CL CO2 BUN CREAT 21-Jan-2023 08:08 N/A N/A N/A N/A N/A N/A Hepatic date/time T Pro T Bili AST ALT ALKP ALB 12-Jan-2019 03:46 4.6(L) 0.8 N/A 13 202(H) 3.1(L) LDH date/time LDH 21-Jan-2023 08:08 N/A Electronic Signatures: Nikki Aguilera (KLEVER) (Signed 08-Apr-2023 10:46) Authored: Phone Call Information Ashley Dugan (UNIT SECT) (Signed 08-Apr-2023 09:27) Authored: Phone Call Information, Outpatient Medication Profile, Orders, Allergies, Results Last Updated: 08-Apr-2023 10:46 by Nikki Aguilera) Normal [facility] Initial Visit (Pain Medicine )on 02-20-2023 Initial Visit (Pain Medicine) Diagnoses/Problems Cramps, muscle, general (729.82) (R25.2) Orders Stop: Gabapentin 100 MG Oral Capsule Neurology - Neuromuscular Referral Evaluation and Treatment Evaluate AND Treat Status: Hold For - Scheduling Requested for: 20Feb2023 Start: Gabapentin 100 MG Oral Capsule; TAKE 1 CAPSULE Twice daily In addition to 300 mg he takes at bedtime Provider Impressions This 60-year-old male here for evaluation of generalized cramps in his multiple muscles of his body. He has been experiencing the symptoms since 2018. He has been diagnosed with large B-cell lymphoma currently under remission. 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 He has tried multiple different medications including opioids, gabapentin, muscle relaxants does take magnesium, drinks significant amount of water. The medications such as muscle relaxants and gabapentin does help however he still gets cramps whenever he is engaged in any sort of activities. Etiology of his cramps is unclear to me, I would recommend referral to neuromuscular neurology for further evaluation. I did however recommend adding 100 mg gabapentin twice daily during the daytime in addition to the 300 mg he only takes at night. Follow-up after evaluation by neurology. Chief Complaint Abdominal Pain NPV for pain in the abdomen since 2017. Had enlarged b cell lymphoma. deny neck and back surgery. no hip or knee pain. All images done at . currently do not take anything for pain. Adult Risk ScreeningThere are no spiritual/cultural practices/values/needs that are important to know Initial Fall Risk Screening: KATERINA has not fallen in the last 6 months. His fall did not result in injury. KATERINA does not have a fear of falling. He does not need assistance with sitting, standing or walking. Does not need assistance walking in his home. He does not need assistance in an unfamiliar setting. The patient is not using an assistive device. Pain Scale: On a scale of 0 to 10, the patient rates the pain at 4. Please identify location of pain: abdomen. Pain Quality: aching and tightness. The pain makes it hard for the patient to do these things: walking, exercise, sleep, house work, relationships with family or friends and self-care (bathing, dressing, eating). Living Will. Living Will: No living will on file. Healthcare POA: No healthcare proxy on file. Tobacco Screening: KATERINA does not use tobacco. Domestic Violence Screen: Does not feel threatened or abused physically, emotionally or sexually. Do you feel UNSAFE? The patient feels safe in the home. Depression/Suicide Screening: During the past 2 weeks, the patient has not felt down, depressed or hopeless. During the past 2 weeks, the patient has not felt little interest or pleasure in doing things. He does not have a risk of suicide. He has not had thoughts of harming others. [place]-SUICIDE SEVERITY RATING SCALE 1. Have you wished you were or wished you could go to sleep and not wake up? -NO 2. Have you actually had any thoughts of killing yourself? - NO 6. Have you done anything, started to do anything, or prepared to do anything to end your life? - NO. Single alcohol screening question: In the past year the patient has had 5 or more drinks (men) or 4 or more drinks (women)? 0 time(s). Single substance abuse screening question: In the past year the patient has used a recreational drug or used a prescription drug for non-medical reasons? 0 time(s). Procedure or Sedation Areas: Not Applicable Nutrition Screening: In the past month, there was not a day when I or anyone in my family went hungry because there was not enough food. Patient Education: The patient denies that they or the person with them has problems with hearing, speaking, seeing, moving around or learning The patient is comfortable filling out medical forms. Food Insecurity: 1. Within the past 12 months, you worried that your food would run out before you got money to buy more: No 2. Within the past 12 months, the food you bought just didn't last and you didn't have money to get more: No History of Present Illness OPIOID Opioid Risk Screening: Opioid Risk Tool Last opioid risk screening date/ordered today: 02/20/23 Patient's total score is 0, within range of Low Risk (<= 3). This 62 year old male here for evaluation of generalized cramping. The patient has been experiencing these symptoms for last 5 years. The patient describes the pain as aching and tight. The patient's current pain score is 4 on a scale from 0-10. The pain is worsened by cramping and is alleviated by walk and medications for cramp. Since the start of the symptoms the pain has been worsening. The patient denies any fever, chills, weight loss, weakness, numbness, bladder/ bowel incontinence, history of IV drug abuse, recent trauma. Review of Systems Constitutional: no fever. Eyes: no eye pain. ENT: no ea (more content not included)... [facility] Note - Heme Onc Sched ulingon 01-31-2023 Clinic Note - Heme Onc Scheduling Retrieve Patient Instructions: Patient Instructions: Patient Instructions: RetrievePatient Instructions Instructions patient is scheduled w/ Pain Mngmnt as requested. Earliest available 02/19. End of Visit Documentation: Clinic Location/Phone Number: Clinic Location/Phone Number: [facility] End Of Visit MU Report Item: Visit Summary given or mailed to patientyes mailed Electronic Signatures: Nicole Jeong (SEC) (Signed 31-Jan-2023 16:14) Authored: Retrieve Patient Instructions, End of Visit Documentation Last Updated: 31-Jan-2023 16:14 by Nicole Jeong (SEC) Normal [facility] Phone Note - Heme Onc-appoin tment question - Referral to paion 01-31-2023 Phone Note - Heme Onc-appointment question - Referral to brian Phone Call Information: Patient Demographics: Name: KATERINA DANIELLE Date: 1960 Address: [address] [place] [address] Date and Time: 31-Jan-2023 12:13 Caller Information: call from Call From: patient Primary Phone Number: [phone] Reason for Call: Reason for Callappointment question, Referral to pain management Message: Message: Calling regarding Dr. Sears's referral for pain management. The doctor he was seeing, Mandi Christianson, said she was not the doctor he was supposed to see- supposed to see pain management. Team Communication: Clinician note: contacted patient Team Communications: Left detailed message on name specific voice mail that a new referral was placed for pain management and should be getting a call to schedule next week. Encouraged to call office back with any further questions or concerns. Tea Oro 01/31/2023 12:22 Outpatient Medication Profile: * Patient Currently Takes Medications as of 22-Jan-2023 13:01 documented in Structured Notes gabapentin 300 mg oral capsule: 1 cap(s) orally once a day , Start Date: 06-Sep-2022 omeprazole 20 mg oral delayed release tablet: 1 tab(s) orally once a day, Start Date: 10-Jun-2019 Artificial Tears ophthalmic solution: 1 drop(s) in each eye 4 times a day, As Needed -for dry eyes , Start Date: 27-Feb-2019 ondansetron 8 mg oral tablet: 1 tab(s) orally every 8 hours, As Needed -for nausea and vomiting , Start Date: 01-Feb-2019 oxyCODONE 5 mg oral tablet: 1 tab(s) orally every 4 hours, As needed, Pain - Mod (4-6), Start Date: 12-Nov-2018 albuterol 2.5 mg/3 mL (0.083%) inhalation solution: 3 milliliter(s) by nebulizer 2 times a day, As Needed , Start Date: 18-Sep-2018 albuterol 90 mcg/inh inhalation aerosol: 2 puff(s) inhaled 4 times a day, As Needed for shortness of breath, Start Date: 18-Sep-2018 ZyrTEC 10 mg oral tablet: 1 tab(s) orally once a day calcitriol: 20 milligram(s) orally once a day, M-F 2x a day Sat-Sun Hyqvia 10%-160 units/mL subcutaneous solution: every 28 days Arnuity Ellipta 100 mcg inhalation powder: 1 puff(s) inhaled every 24 hours potassium bicarbonate-sodium bicarbonate: 99 milligram(s) orally once a day magnesium calcitrate: 200 milligram(s) orally once a day Orders: Complete Blood Count + Differential, 28-May-2018 Complete Blood Count + Differential, 14-Nov-2021 Comprehensive Metabolic Panel, 14-Nov-2021 Complete Blood Count + Differential, 29-Aug-2022 Comprehensive Metabolic Panel, 29-Aug-2022 Lactate Dehydrogenase, Serum, 29-Aug-2022 Magnesium, Serum, 29-Aug-2022 Complete Blood Count + Differential, 25-Jul-2023 Comprehensive Metabolic Panel, 25-Jul-2023 Lactate Dehydrogenase, Serum, 25-Jul-2023 Allergies: Bactrim: Rash, Hives/Urticaria, Itching Compazine: Other (Moderate), Resp Distress dapsone: Rash voriconazole: Other Lab Results: Results CBC date/time WBC HGB HCT PLT Neut 10-Oct-2022 15:36 N/A N/A N/A N/A N/A BMP date/time NA K CL CO2 BUN CREAT 21-Jan-2023 08:08 N/A N/A N/A N/A N/A N/A Hepatic date/time T Pro T Bili AST ALT ALKP ALB 12-Jan-2019 03:46 4.6(L) 0.8 N/A 13 202(H) 3.1(L) LDH date/time LDH 21-Jan-2023 08:08 N/A Electronic Signatures: Tea Oro (N MGR) (Signed 31-Jan-2023 12:22) Authored: Phone Call Information Ashley Dugan (UNIT SECT) (Signed 31-Jan-2023 12:15) Authored: Phone Call Information, Outpatient Medication Profile, Orders, Allergies, Results Last Updated: 31-Jan-2023 12:22 by Tea Oro (N MGR) Normal [facility] Office Visit (Onco-Nephrolog y - Established)on 01-29-2023 Follow-up visit Diagnoses/Problems Benign essential HTN (401.1) (I10) CKD (chronic kidney disease), stage III (585.3) (N18.30) Stem cell transplant candidate (V49.83) (Z76.82) Hyperparathyroidism, secondary (588.81) (N25.81) Diffuse large B-cell lymphoma (202.80) (C83.30) Orders Benign essential HTN, CKD (chronic kidney disease), stage III Start: Valsartan 80 MG Oral Tablet; TAKE 1 TABLET BY MOUTH EVERY DAY Benign essential HTN, CKD (chronic kidney disease), stage III, Diffuse large B-cell lymphoma, Hyperparathyroidism, secondary, Stem cell transplant candidate Basic Metabolic Panel; Status:Active; Requested for:[id number]; Parathormone Intact, Serum; Status:Active; Requested for:[id number]; Phosphorus, Serum; Status:Active; Requested for:[id number]; Unlinked Stop: Losartan Potassium 25 MG Oral Tablet Provider Impressions 1- CKD III: His Cr level is 1.8. Stable kidney function. He has history of lymphoma with multiple relapses. He had multiple exposures to iv contrast over the past few years. He had a CAR-T treatment back in December 2018. He is getting IVIG. Last spot urine protein to creatinine ratio did not show significant proteinuria. Volume status is good. 2- Secondary hyperparathyroidism: He is on calcitriol with good PTH level. 3. HTN: BP is on high side. He is on Losartan 25 mg once a day. I replaced it with Valsartan 80 mg once a day. I will see him in about 4 months for follow-up. Chief Complaint F/u Pt's f/u PT in office for their 6 month f.u History of Present Illness The patient is being seen for a routine clinic follow-up of chronic kidney disease. This is classified as stage 3. Recently, the disease has been stable. Disease complications: hyperparathyroidism, but no hyperkalemia, no hypocalcemia, no hyperphosphatemia, no metabolic acidosis, no coagulopathy, no uremic encephalopathy, no neuropathy and no renal osteodystrophy. The patient is currently asymptomatic. No associated symptoms are reported. Review of Systems The patient does not have any dizziness or lightheadedness. No chills and no fever. No headaches. No nausea and no vomiting. No chest pain. No chest tightness. No abdominal pain. No diarrhea and no constipation. The patient denies any hematemesis or hemoptysis. No hematuria. No rectal bleeding. No melena. No epistaxis. The patient denies any urinary symptoms. No frequency, no hesitancy, and no urgency. No flank pain. The patient denies any leg edema. No leg pain. The patient denies any feeling of weakness. No itching. Overall, the rest of the review of systems is also negative. 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) Stem cell transplant candidate (V49.83) (Z76.82) Thrombocytopenia (287.5) (D69.6) Past Medical History History of Bilateral dry eyes (375.15) (H04.123) History of Dry eye syndrome (375.15) (H04.129) 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) History of B-cell lymphoma (V10.79) (Z85.72) History of hypertension (V12.59) (Z86.79) History of kidney disease (V13.09) (Z87.448) 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) Resolved Date: 28 Jun 2016 Surgical History History of Plantar fasciotomy Family History Family history of Alzheimer's disease (V17.2) (Z82.0) Family history of asthma (V17.5) (Z82.5) Family history of eczema (V19.4) (Z84.0) Family history of malignant neoplasm (V16.9) (Z80.9) Family history of Seasonal allergies Family history of asthma (V17.5) (Z82.5) Family history of eczema (V19.4) (Z84.0) Family history of malignant neoplasm of prostate (V16.42) (Z80.42) Family history of Seasonal allergies Family history of malignant neoplasm (V16.9) (Z80.9) Family history of malignant neoplasm (V16.9) (Z80.9) Family history of multiple myeloma (V16.7) (Z80.7) Family history of glaucoma (V19.11) (Z83.511) Social History Alcohol use (V49.89) (Z78.9) Caffeine use (V49.89) (Z78.9) Currently working Lives with family Never a smoker No illicit drug use Allergies Bactrim DS TABS Recorded By: Komal Jack; 12/17/2017 2:50:40 PM Compazine Recorded By: Komal Jack; 12/17/2017 2:53:15 PM dapsone Recorded By: Marcy Rene; 03/08/2019 2:38:38 PM voriconazole Recorded By: Soo Denton; 10/01/2021 9:50:46 AM No Known Environmental Allergies Recorded By: Samantha Kay; 02/09/2016 8:35:31 AM No Known Food (more content not included)... Normal [facility] Phone Note - Heme Onc-order entryon 01-29-2023 Phone Note - Heme Onc-radio recorder Phone Call Information: Patient Demographics: Name: KATERINA DANIELLE Date: 1960 Address: [address] [place] [address] Primary Phone Number: [phone] Reason for Call: Reason for Callorder entry Team Communication: Team Communications: Orders for labs Zofia Smith 01/29/2023 14:13 Outpatient Medication Profile: * Patient Currently Takes Medications as of 22-Jan-2023 13:01 documented in Structured Notes gabapentin 300 mg oral capsule: 1 cap(s) orally once a day , Start Date: 06-Sep-2022 omeprazole 20 mg oral delayed release tablet: 1 tab(s) orally once a day, Start Date: 10-Jun-2019 Artificial Tears ophthalmic solution: 1 drop(s) in each eye 4 times a day, As Needed -for dry eyes , Start Date: 27-Feb-2019 ondansetron 8 mg oral tablet: 1 tab(s) orally every 8 hours, As Needed -for nausea and vomiting , Start Date: 01-Feb-2019 oxyCODONE 5 mg oral tablet: 1 tab(s) orally every 4 hours, As needed, Pain - Mod (4-6), Start Date: 12-Nov-2018 albuterol 2.5 mg/3 mL (0.083%) inhalation solution: 3 milliliter(s) by nebulizer 2 times a day, As Needed , Start Date: 18-Sep-2018 albuterol 90 mcg/inh inhalation aerosol: 2 puff(s) inhaled 4 times a day, As Needed for shortness of breath, Start Date: 18-Sep-2018 ZyrTEC 10 mg oral tablet: 1 tab(s) orally once a day calcitriol: 20 milligram(s) orally once a day, M-F 2x a day Sat-Sun Hyqvia 10%-160 units/mL subcutaneous solution: every 28 days [place] Ellipta 100 mcg inhalation powder: 1 puff(s) inhaled every 24 hours potassium bicarbonate-sodium bicarbonate: 99 milligram(s) orally once a day magnesium calcitrate: 200 milligram(s) orally once a day Orders: Complete Blood Count + Differential, 28-May-2018 Complete Blood Count + Differential, 14-Nov-2021 Comprehensive Metabolic Panel, 14-Nov-2021 Complete Blood Count + Differential, 29-Aug-2022 Comprehensive Metabolic Panel, 29-Aug-2022 Lactate Dehydrogenase, Serum, 29-Aug-2022 Magnesium, Serum, 29-Aug-2022 Complete Blood Count + Differential, 25-Jul-2023 Comprehensive Metabolic Panel, 25-Jul-2023 Lactate Dehydrogenase, Serum, 25-Jul-2023 Allergies: Bactrim: Rash, Hives/Urticaria, Itching Compazine: Other (Moderate), Resp Distress dapsone: Rash voriconazole: Other Lab Results: Results CBC date/time WBC HGB HCT PLT Neut 10-Oct-2022 15:36 N/A N/A N/A N/A N/A BMP date/time NA K CL CO2 BUN CREAT 21-Jan-2023 08:08 N/A N/A N/A N/A N/A N/A Hepatic date/time T Pro T Bili AST ALT ALKP ALB 12-Jan-2019 03:46 4.6(L) 0.8 N/A 13 202(H) 3.1(L) LDH date/time LDH 21-Jan-2023 08:08 N/A Electronic Signatures: Zofia Smith (RN) (Signed 29-Jan-2023 14:13) Authored: Phone Call Information, Outpatient Medication Profile, Orders, Allergies, Results Last Updated: 29-Jan-2023 14:13 by Zofia Smith (RN) [facility] Tobacco Screening.on 023 Fall risk assessment b) One or more fall s in the last year [facility] 3 DO Work Phone: Tobacco use status [facility] b) No [facility] 3 DO Work Phone: Clinic Note - Heme Onc Sched ulingon 01-24-2023 Clinic Note - Heme Onc Scheduling Retrieve Patient Instructions: Patient Instructions: Patient Instructions: RetrievePatient Instructions End of Visit Documentation: Clinic Location/Phone Number: Clinic Location/Phone Number: [facility] End Of Visit MU Report Item: Visit Summary given or mailed to patientyes mailed to patient Electronic Signatures: Nicole Jeong (SEC) (Signed 24-Jan-2023 14:06) Authored: Retrieve Patient Instructions, End of Visit Documentation Last Updated: 24-Jan-2023 14:06 by Nicole Jeong (SEC) [facility] Clinic Note - Heme Onc-Follo w Up Visiton 01-22-2023 Clinic Note - Heme Onc-Follow Up Visit Patient Visit Information: Visit Type: Follow Up Visit Cancer History: Treatment Synopsis: Mr. Danielle is a 58 yo M with no significant past medical history except for migraine headaches who was referred from Dr. 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 He was well until Sep 2015 occasional migraine headaches before that when he developed what seemed like a sinus infection and was treated with antibiotics and steroids. He continued to have severe throat pain, fever, and severe facial pain. He was seen by Neurology and treated for migraine headaches without any relief. He was then evaluated by ENT and underwent a nasal endoscopy which noted sphenoid sinus fullness but found no mass initially--. 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 He was referred to Dr. Rodriguez in oncology at [facility] for evaluation. 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 Bone marrow biopsy was done which was negative for involvement with lymphoma . He also underwent an LP with low yield. Because of his meningeal enhancement and location close to [employer], he was treated with hyperCVAD-MA. He received 4 cycles of hyperCVAD (last cycle 05/2016) with CR. 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 Pathology report: NOTE: The lymphoma is difficult to classify. It is composed predominantly of medium-sized irregular cells with condensed chromatin with some large cells that are CD5 and CD10 positive. Cyclin D1 was negative. There is evidence of plasmacytic differentiation as a small subset of plasmacytic cells are light chain restricted. The cells demonstrate a Ki-67 proliferation fraction of 50%.The main differential diagnosis includes a cyclin D1 negative mantle cell lymphoma and an unusual marginal zone lymphoma. The number of large cells does not appear to be great enough for a diagnosis of large B cell lymphoma. Nonetheless, with the presence of some large cells and a relatively brisk Ki-67 fraction the lesion may act more aggressively than a low-grade B cell lymphoma. Sox11 staining as well as heavy chain stains and molecular studies are pending to help in the classification of the process. Clinical correlation is suggested. The current biopsy was compared to this patient's previous biopsy ([id number]). The previous biopsy demonstrated areas of necrosis and apoptosis with cells that are more clearly large cells, features not seen, or clearly identified, in the current specimen. Nonetheless, the CD5 positivity and lambda expression is the same although CD10 and CD26 expression are different (CD10 expression may have been very very weak in the previous biopsy in retrospect). Given the findings, the processes are likely related although demonstrating different morphology. Relatedness is difficult to determine with certainty without molecular studies. 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 The patient was enrolled on [id number], Venetoclax+RICE. Cycle 1 started 10/29/17. Had tumor lysis with cycle 1 due to which venetoclax had to be stopped. Recovered with supportive therapy, renal function returned to baseline. Received 2 cycles. Admission January 06-2017, for autologous SCT with BEAM preparative regimen. T=0 January 12, 2018. Hospitalization complicated by fluid overload requiring diuretics, anorexia, nausea, mucositis, C diff negative diarrhea. 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 The patient was recently readmitted to [facility] (06/16-06/18/18) for fever and PNA. 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 He completed by mouth Levaquin. The patient was admitted to [facility] (08/18-08/21/18) with a new PE. He was started on renally dosed Lovenox. He reported bruising with some bleeding at the site of his Lovenox injections. He feels that the Lovenox made his pelvic pain worse. He was not willing to take further Lovenox and discontinued his injections (without discussion with our office) as of 08/31/18. He then was prescribed Xarelto and was only taking this intermittently because of headaches. 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 He initiated therapy on clinical research trial ADCT 1418. He was scheduled to receive C3 (09/04/18) but unable due to a persistently elevated GGT. CAR T Cell infusion 01/04/19 with tisagenlecleucel ([employer]) with preparative regimen of fludarabine and cytoxan. History of Present Illness: ID Statement: KATERINA DANIELLE is a 62 year old Male (more content not included)... [facility] Clinic Note - Intakeon 01-22 Clinic Note - Intake Patient Visit Information: Visit TypeFollow Up Visit Source of Informationpatient Admission Information: Admission Since Last VisitNo Vital Signs: Temp (degrees C)36 degrees C Heart Rate (beats/min)88 beats per minute Respiration (breaths/min)17 breath per minute BP Systolic (mm Hg)Image has been removed. 141 mmHg BP Diastolic (mm Hg)86 mmHg BP Mean (mm Hg)104 mmHg Height in cm182.5 centimeter(s) Weight in kg120.9 kilogram(s) Weightstanding BMI (kg/m2)36.2 kg/M2 BSA (m2)2.47 M2 SpO2 (%)95 % SpO2 Patient Onroom air Pain Screening: Patient States Painno (0) Allergies: Bactrim: Drug, Rash, Hives/Urticaria, Itching, Active Compazine: Drug, Other (Moderate), Resp Distress, Active dapsone: Drug, Rash, Active voriconazole: Drug, Other, Active Outpatient Medication Profile: * Patient Currently Takes Medications as of 22-Jan-2023 13:01 documented in Structured Notes gabapentin 300 mg oral capsule: Last Dose Taken: , 1 cap(s) orally once a day , Start Date: 06-Sep-2022 omeprazole 20 mg oral delayed release tablet: Last Dose Taken: , 1 tab(s) orally once a day, Start Date: 10-Jun-2019 Artificial Tears ophthalmic solution: Last Dose Taken: , 1 drop(s) in each eye 4 times a day, As Needed -for dry eyes , Start Date: 27-Feb-2019 ondansetron 8 mg oral tablet: Last Dose Taken: , 1 tab(s) orally every 8 hours, As Needed -for nausea and vomiting , Start Date: 01-Feb-2019 oxyCODONE 5 mg oral tablet: Last Dose Taken: , 1 tab(s) orally every 4 hours, As needed, Pain - Mod (4-6), Start Date: 12-Nov-2018 albuterol 2.5 mg/3 mL (0.083%) inhalation solution: Last Dose Taken: , 3 milliliter(s) by nebulizer 2 times a day, As Needed , Start Date: 18-Sep-2018 albuterol 90 mcg/inh inhalation aerosol: Last Dose Taken: , 2 puff(s) inhaled 4 times a day, As Needed for shortness of breath, Start Date: 18-Sep-2018 ZyrTEC 10 mg oral tablet: Last Dose Taken: , 1 tab(s) orally once a day calcitriol: Last Dose Taken: , 20 milligram(s) orally once a day, M-F 2x a day Sat-Sun Hyqvia 10%-160 units/mL subcutaneous solution: Last Dose Taken: , every 28 days Arnuity Ellipta 100 mcg inhalation powder: Last Dose Taken: , 1 puff(s) inhaled every 24 hours potassium bicarbonate-sodium bicarbonate: Last Dose Taken: , 99 milligram(s) orally once a day magnesium calcitrate: Last Dose Taken: , 200 milligram(s) orally once a day Notification: NotificationsAnnual Screens Due Dates Advanced Directives: Aug 15, 2023 Family Violence: Aug 15, 2023 Depression (Due every 6 months for ONC only; all others use Annual date): Feb 11, 2023 Substance Use - Alcohol: Aug 15, 2023 Substance Use - Drugs: Aug 15, 2023 Nutrition: Aug 15, 2023 Learning: Aug 15, 2023 Travel History: COVID-19 Screening Completedno exposure or symptoms Travel or ExposureNO travel to International locations in the past 30 days Falls: Have you fallen in the last 6 monthsno Do you have a fear of fallingno Do you feel you need assistanceno Is the patient using an assistive deviceno Not a falls riskimplement environmental risk factors interventions Spiritual/Procedural: Spiritual/cultural/religi ous practices important for us to knowno Alcohol, prescription or recreational drugs taken this AM for non medical reasonsno Oncology Nutrition: During the past 2 weeks, weight has(0) not changed Intake past month, compared to normal intake(0) unchanged Problems keeping me from eating past 2 weeks (0) no problem eating In the past month, my activity/functioning rating is(0) normal with no limitations Clinician notifiedno Score 6 or > notify clinician0 Electronic Signatures: Lindsay Yadav (PCNA) (Signed 22-Jan-2023 13:02) Authored: Patient Visit Information, Vital Signs, Allergies, Outpatient Medication Profile, Notification, Travel History, Falls, Spiritual/Procedural, Oncology Nutrition Last Updated: 22-Jan-2023 13:02 by Lindsay Yadav (PCNA) Normal [facility] COMPREHENSIVE PANELon 2022 ALBUMIN Canceled Normal [facility] Comment on above: Order Comment: TEST COMPREHENSIVE PANEL WAS CANCELLED, 01/21/2023 08:08 NO SPECIMEN RECEIVED IN LAB. Performed By: #### C MP #### [address] [place] [id number] ALKALINE PHOSPHATASE Canceled Normal [facility] [place] Comment on above: Order Comment: TEST COMPREHENSIVE PANEL WAS CANCELLED, 01/21/2023 08:08 NO SPECIMEN RECEIVED IN LAB. Performed By: #### C MP #### [address] [place] [id number] ALT Canceled [facility] Comment on above: Order Comment: TEST COMPREHENSIVE PANEL WAS CANCELLED, 01/21/2023 08:08 NO SPECIMEN RECEIVED IN LAB. Result Comment: Yisel ents treated with Sulfasalazine may generate falsely decreased results for ALT. Performed By: #### C MP #### [address] [place] [address] ANION GAP Canceled Normal [facility] Comment on above: Order Comment: TEST COMPREHENSIVE PANEL WAS CANCELLED, 01/21/2023 08:08 NO SPECIMEN RECEIVED IN LAB. Performed By: #### C MP #### [address] [place] [address] AST Canceled Normal [facility] Comment on above: Order Comment: TEST COMPREHENSIVE PANEL WAS CANCELLED, 01/21/2023 08:08 NO SPECIMEN RECEIVED IN LAB. Performed By: #### C MP #### [address] [place] [address] BICARBONATE Canceled Normal [facility] Comment on above: Order Comment: TEST COMPREHENSIVE PANEL WAS CANCELLED, 01/21/2023 08:08 NO SPECIMEN RECEIVED IN LAB. Performed By: #### C MP #### [address] [place] [address] BILIRUBIN,TOTAL Canceled Normal [facility], [place], [facility] Comment on above: Order Comment: TEST COMPREHENSIVE PANEL WAS CANCELLED, 01/21/2023 08:08 NO SPECIMEN RECEIVED IN LAB. Performed By: #### C MP #### [address] [place] [address] CALCIUM Canceled Normal [facility] Comment on above: Order Comment: TEST COMPREHENSIVE PANEL WAS CANCELLED, 01/21/2023 08:08 NO SPECIMEN RECEIVED IN LAB. Performed By: #### C MP #### [address] [place] [address] CHLORIDE Canceled Normal [facility] Comment on above: Order Comment: TEST COMPREHENSIVE PANEL WAS CANCELLED, 01/21/2023 08:08 NO SPECIMEN RECEIVED IN LAB. Performed By: #### C MP #### [address] [place] [address] CREATININE Canceled Normal [facility] Comment on above: Order Comment: TEST COMPREHENSIVE PANEL WAS CANCELLED, 01/21/2023 08:08 NO SPECIMEN RECEIVED IN LAB. Performed By: #### C MP #### [address] [place] [address] eGFR FEMALE Canceled Normal [facility] Comment on above: Order Comment: TEST COMPREHENSIVE PANEL WAS CANCELLED, 01/21/2023 08:08 NO SPECIMEN RECEIVED IN LAB. Result Comment: CALC ULATIONS OF ESTIMATED GFR ARE PERFORMED USING THE 2020 CKD-EPI STUDY REFIT EQUATION WITHOUT THE RACE VARIABLE FOR THE IDMS-TRACEABLE CREATININE METHODS. https://jasn.asnjournals.org/content/early/ASN.820587 8361 Performed By: #### C MP #### [address] [place] [address] eGFR MALE Canceled Normal [facility] Comment on above: Order Comment: TEST COMPREHENSIVE PANEL WAS CANCELLED, 01/21/2023 08:08 NO SPECIMEN RECEIVED IN LAB. Result Comment: CALC ULATIONS OF ESTIMATED GFR ARE PERFORMED USING THE 2020 CKD-EPI STUDY REFIT EQUATION WITHOUT THE RACE VARIABLE FOR THE IDMS-TRACEABLE CREATININE METHODS. https://jasn.asnjournals.org/content/early/ASN.856116 9486 Performed By: #### C MP #### [address] [place] [address] GLUCOSE Canceled Normal [facility] Comment on above: Order Comment: TEST COMPREHENSIVE PANEL WAS CANCELLED, 01/21/2023 08:08 NO SPECIMEN RECEIVED IN LAB. Performed By: #### C MP #### [address] [place] [address] POTASSIUM Canceled Normal [facility] Comment on above: Order Comment: TEST COMPREHENSIVE PANEL WAS CANCELLED, 01/21/2023 08:08 NO SPECIMEN RECEIVED IN LAB. Performed By: #### C MP #### [address] [place] [address] SODIUM Canceled Normal [facility] Comment on above: Order Comment: TEST COMPREHENSIVE PANEL WAS CANCELLED, 01/21/2023 08:08 NO SPECIMEN RECEIVED IN LAB. Performed By: #### C MP #### [address] [place] [address] TOTAL PROTEIN Canceled Normal [facility] Comment on above: Order Comment: TEST COMPREHENSIVE PANEL WAS CANCELLED, 01/21/2023 08:08 NO SPECIMEN RECEIVED IN LAB. Performed By: #### C MP #### [address] [place] [address] UREA NITROGEN Canceled Normal [facility] Comment on above: Order Comment: TEST COMPREHENSIVE PANEL WAS CANCELLED, 01/21/2023 08:08 NO SPECIMEN RECEIVED IN LAB. Performed By: #### C MP #### [address] [place] [address] LDHon 01-21-2023 LDH Canceled Normal [facility] Comment on above: Order Comment: TEST LDH WAS CANCELLED, 01/21/2023 08:08 NO SPECIMEN RECEIVED IN LAB. Performed By: #### L DH ####[facility] [place] [address] [place] [address] MAGNESIUMon 01-21-2023 MAGNESIUM Canceled Normal [facility] Comment on above: Order Comment: TEST MAGNESIUM WAS CANCELLED, 01/21/2023 08:08 NO SPECIMEN RECEIVED IN LAB. Performed By: #### M G ####[address] [place] [address] Phone Note - Heme Onc-Insura nce Medical Hxon 01-14-2023 Phone Note - Heme Onc-Insurance Medical Hx Phone Call Information: Patient Demographics: Name: KATERINA DANIELLE Date: 1960 Address: [address] [place] [address] Date and Time: 14-Jan-2023 10:30 Caller Information: call from Call From: patient Primary Phone Number: [phone] Reason for Call: Reason for CallInsurance Medical Hx Message: Message: Insurance company re-evaluating him ([facility]). Would like a copy of medical history that was mailed to him last year, since his condition hasn't changed much- if anything, they have gotten worse. He wants dean- they need by 02/05/23. Otherwise benefits will be terminated. Sees Dr. Sears on 01/22/23. Asking for call back to discuss. Team Communication: Clinician note: contacted patient Team Communications: Spoke with the patient. States he received a notice from his disability insurance that he needs to be re-evaluated. States Dr. Saleem's office sent in the form from the insurance company. Pt sees Dr. Sears on January 22 and last saw 3 months prior. Insurance wants information faxed by February 05. Asked the patient to fax us the insurance form- provided office fax number. Pt will work with the insurance company to have the form faxed ot the office. Tea Oro 01/14/2023 11:04 Tea Oro 01/14/2023 11:06 Patient calling back to advise he will bring paperwork in at appointment so everything is filled out correctly and can fax then. Zofia ERNST aware of plan. Ashley Dugan 01/14/2023 14:19 Outpatient Medication Profile: * Patient Currently Takes Medications as of 10-Oct-2022 12:47 documented in Structured Notes gabapentin 300 mg oral capsule: 1 cap(s) orally once a day , Start Date: 06-Sep-2022 omeprazole 20 mg oral delayed release tablet: 1 tab(s) orally once a day, Start Date: 10-Jun-2019 Artificial Tears ophthalmic solution: 1 drop(s) in each eye 4 times a day, As Needed -for dry eyes , Start Date: 27-Feb-2019 ondansetron 8 mg oral tablet: 1 tab(s) orally every 8 hours, As Needed -for nausea and vomiting , Start Date: 01-Feb-2019 oxyCODONE 5 mg oral tablet: 1 tab(s) orally every 4 hours, As needed, Pain - Mod (4-6), Start Date: 12-Nov-2018 albuterol 2.5 mg/3 mL (0.083%) inhalation solution: 3 milliliter(s) by nebulizer 2 times a day, As Needed , Start Date: 18-Sep-2018 albuterol 90 mcg/inh inhalation aerosol: 2 puff(s) inhaled 4 times a day, As Needed for shortness of breath, Start Date: 18-Sep-2018 ZyrTEC 10 mg oral tablet: 1 tab(s) orally once a day calcitriol: 20 milligram(s) orally once a day, M-F 2x a day Sat-Sun Hyqvia 10%-160 units/mL subcutaneous solution: every 28 days Arnclayton Ellipta 100 mcg inhalation powder: 1 puff(s) inhaled every 24 hours potassium bicarbonate-sodium bicarbonate: 99 milligram(s) orally once a day magnesium calcitrate: 200 milligram(s) orally once a day Orders: Complete Blood Count + Differential, 28-May-2018 Complete Blood Count + Differential, 14-Nov-2021 Comprehensive Metabolic Panel, 14-Nov-2021 Complete Blood Count + Differential, 29-Aug-2022 Comprehensive Metabolic Panel, 29-Aug-2022 Lactate Dehydrogenase, Serum, 29-Aug-2022 Magnesium, Serum, 29-Aug-2022 Allergies: Bactrim: Rash, Hives/Urticaria, Itching Compazine: Other (Moderate), Resp Distress dapsone: Rash voriconazole: Other Lab Results: Results CBC date/time WBC HGB HCT PLT Neut 10-Oct-2022 15:36 N/A N/A N/A N/A N/A BMP date/time NA K CL CO2 BUN CREAT 21-Feb-2022 14:00 N/A N/A N/A N/A N/A N/A Hepatic date/time T Pro T Bili AST ALT ALKP ALB 12-Jan-2019 03:46 4.6(L) 0.8 N/A 13 202(H) 3.1(L) LDH date/time LDH 21-Feb-2022 14:00 N/A Electronic Signatures: Tea Oro (N MGR) (Signed 14-Jan-2023 11:06) Authored: Phone Call Information Ashley Dugan (UNIT SECT) (Signed 14-Jan-2023 14:19) Authored: Phone Call Information, Outpatient Medication Profile, Orders, Allergies, Results Last Updated: 14-Jan-2023 14:19 by Ashley Dugan (UNIT SECT) Normal [facility] IMMUNOGLOBULIN IGG QUANTITAT IVEon 01-03-2023 Immunoglobulin G, Qn, Serum 997 mg/dL Normal [phone] [facility] Comment on above: Performed By: #### M G, LDH, CMP #### [facility] [address] [place], [place] [address] Dr. 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 We will call you with results and further recommendations. Continue infusions with no change. If you develop fever, loss of taste or smell, sore throat, wheezing or shortness of breath, please let me know so we can order COVID testing and possible immunoglobulin infusion. By signing my name below, I, Ronny Curiel, attest that this documentation has been prepared under the direction and in the presence of Sandra Cole MD. All medical record entries made by the Marleneibe were at my direction and personally dictated by me. I have reviewed the chart and agree that the record accurately reflects my personal performance of the history, physical exam, discussion and plan. Provider Impressions CVID, hypogammaglobulinemia - Chronic, controlled. He has been ill requiring numerous antibiotic courses. Doing well on HyQvia infusions every 28 days with only mild bloating and abdominal tenderness post infusion. He will have IgG level. We will call you with results and further recommendations. Continue infusions with no change. Record release signed for PCP and Nohelia Machado DO, [employer] in [employer]. If you develop fever, loss of taste or smell, sore throat, wheezing or shortness of breath, please let me know so we can order COVID testing and possible immunoglobulin infusion. Moderate risk of disease progression exists. Chief Complaint Followup visit for immunoglobin deficiency History of Present Illness Patient was last here, 12/28/2021 and he has been chronically sick attributed to his 2 granddaughters who attend school and may bring home triggers. He was having wheezing, chest/sinus congestion, chronic throat-clearing with sensation of phlegm in his throat with intermittent clear sputum and PND, but denied PNA. PCP thought it may have been bacterial. He was on antibiotics for about 2 months. One made him sick and PCP switched him to something else a couple of times because they were not working for him. He did very well after taking Cefdinir and felt great. He developed RSV and at that point, PCP referred patient to a Womens Volleyball Coach at [facility]. He saw Nohelia Machado DO, Womens Volleyball Coach at [facility], did a breathing test and ordered a CXR. He was Dxd with a lung disease and started on Arnuity. Patient thinks he had his labs ordered here last visit. Patient has blood work due and routine labs and questions if he can have his IgG level done at that time. Patient's HyQvia infusions every 28 days are going well but he does have bloating and tenderness after. Review of Systems See attached Review of Systems in HPI. 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) Stem cell transplant candidate (V49.83) (Z76.82) Thrombocytopenia (287.5) (D69.6) Past Medical History History of Bilateral dry eyes (375.15) (H04.123) History of Dry eye syndrome (375.15) (H04.129) 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) History of B-cell lymphoma (V10.79) (Z85.72) History of hypertension (V12.59) (Z86.79) History of kidney disease (V13.09) (Z87.448) 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) Resolved Date: 28 Jun 2016 Surgical History History of Plantar fasciotomy Social History Alcohol use (V49.89) (Z78.9) Caffeine use (V49.89) (Z78.9) Currently working Lives with family Never a smoker No illicit drug use Allergies Bactrim DS TABS Recorded By: Komal Jakc; 12/17/2017 2:50:40 PM Compazine Recorded By: Komal Jack; 12/17/2017 2:53:15 PM dapsone Recorded By: Marcy Rene; 03/08/2019 2:38:38 PM voriconazole Recorded By: Soo Denton; 10/01/2021 9:50:46 AM No Known Environmental Allergies Recorded By: Samantha Kay; 02/09/2016 8:35:31 AM No Known Food Allergies Recorded By: Samantha Kay; 02/09/2016 8:35:31 AM Current Meds Medication NameInstruction Albuterol Sulfate (2.5 MG/3ML) 0.083% Inhalation Nebulization Solution Albuterol Sulfate 0.63 MG/3ML Inhalation Nebulization SolutionUSE 1 UNIT DOSE IN NEBULIZER EVERY 4 TO 6 HOURS NEEDED. amLODIPine Besylate 5 MG Oral TabletTAKE 1 TABLET DAILY DIRECTED. Arnuity Ellipta 100 MCG/ACT Inhalation Aerosol Powder Breath ActivatedINHALE 1 PUFF (more content not included)... Normal [facility] HEREDITARY HEMOCHROMATOSIS, DNA ANALYSISon 10-21-2022 Hereditary Hemochromatosis Comment Normal [facility] Comment on above: Result Comment: [facility]: c.845G>A (p.Qdl091Rfm) - Not Detected c.187C>G (p.Nbl10Lki) - Detected, heterozygous c.193A>T (p.Vhf83Lln) - Not Detected Not associated with increased risk to develop clinical symptoms of Hereditary Hemochromatosis. In symptomatic individuals, other causes of iron overload should be evaluated. See Additional Information and Comments. Additional Clinical Information: Hereditary hemochromatosis (HFE related) is an autosomal recessive iron storage disorder. Patients may have a genetic diagnosis of hereditary hemochromatosis and never show clinical symptoms. Clinical symptoms typically appear between 40 to 60 years in males and after menopause in females. Signs and symptoms may include organ damage, primarily in the liver, risk for hepatocellular carcinoma, diabetes, and heart disease due to iron accumulation. Life expectancy may be decreased in individuals who develop cirrhosis. Treatment for clinically symptomatic individuals may include therapeutic phlebotomy. Liver transplant may be used to treat end stage liver failure. For preventive care, monitoring for iron overload is recommended for patients who are homozygous for c.845G>A (p.Bnu692Fdi) and have yet to experience clinical symptoms. . Comments: The most common HFE variants associated with hereditary hemochromatosis are c.845G>A (p.Biz142Hdt), c.187C>G (p.Sel72Vxe), c.193A>T (p.Gnm94Uor). While patients homozygous for c.845G>A (p.Qxb262Roj) are the most likely to present clinical symptoms, less than 10% develop clinically significant iron overload with tissue and organ damage. . Genetic counseling is recommended to discuss the potential clinical implications of positive results, as well as recommendations for testing family members. Genetic Coordinators are available for health care providers to discuss results at [phone] ([phone]). . Test Details: Three variants analyzed: c.845G>A (p.Sjz246Kbr), commonly referred to as C282Y c.187C>G (p.Gug87Ztc), commonly referred to as H63D c.193A>T (p.Aor02Jgd), commonly referred to as S65C . Methods/Limitations: DNA Analysis of the HFE gene ([id number]) was performed by PCR amplification followed by restriction enzyme digestion analyses. Results must be combined with clinical information for the most accurate interpretation. Molecular-based testing is highly accurate, but as in any laboratory test, diagnostic errors may occur. False positive or false negative results may occur for reasons that include genetic variants, blood transfusions, bone marrow transplantation, somatic or tissue-specific mosaicism, mislabeled samples, or erroneous representation of family relationships. This test was developed and its performance characteristics determined by [employer]. It has not been cleared or approved by the Food and Drug Administration. . References: Jared BR, Keith PC, Shelby KV, Rishabh LW, Heriberto ; [employer] Liver Diseases. Diagnosis and management of hemochromatosis: 2011 practice guideline by the [employer] Liver Diseases. Hepatology. 2011 Sam;54(1):328-43. doi: 10.1002/hep.39341. PMID: 94625393; PMCID: LEW4853760. Consuelo G, Lisa P, Janeth DW, Marcel H, Nick O, Jeffrey S, Ryder I, Frederick Daniel, Candace Hale. [facility] best practice guidelines for the molecular genetic diagnosis of hereditary hemochromatosis (HH). Eur J Hum Winter. 2016 Nov;24(4):479-95. doi: 10.1038/ejhg.2015.128. Epub 2014Mar 08. PMID: 71621119; PMCID: [id number]. . Leslee Cadena, PhD, FACMG Dioni Trinidad, PhD Sunday Sofia, PhD, FAC Angelito Beard, PhD, FAC Tom Wills, PhD, FAC Helio Henry, PhD, FAC Katie Collazo, PhD, FAC Yun Peterson, PhD, FAC Performed By: #### H HDNA #### [facility] [address] [place] [address] [address] Ladan Mcdonald FERRITINon 10-11-2022 Ferritin [Mass/Vol] 1497.0 ng/mL Critically high 26.0-388. 0 [facility] Comment on above: Performed By: #### M G, LDH, CMP #### [facility] [address] [place] [address] [address] Ladan Mcdonald IRON AND TIBCon 10-11-2022 % SATURATION 35.6 % Normal [facility] Comment on above: Performed By: #### M G, LDH, CMP #### [facility] [address] [place] [address] [address] Ladan Mcdonald Iron [Mass/Vol] 99.0 ug/dL Normal 65.0-175.0 [facility] Comment on above: Performed By: #### M G, LDH, CMP #### [facility] [address] [place] [address] [address] Ladan Mcdonald TIBC DIRECT 278.0 ug/dL Normal 250.0-450.0 [facility] Comment on above: Performed By: #### M G, LDH, CMP #### [facility] [address] [place] [address] [address] Ladan Mcdonald MAGNESIUMon 10-11-2022 Magnesium [Mass/Vol] 2.2 mg/dL Normal 1.8-2.4 [facility] Comment on above: Performed By: #### M G, LDH, CMP #### [facility] [address] [place] [address] Dr. Ladan Mcdonald TSHon 10-11-2022 TSH 0.839 uIU/mL Normal 0.358-3.740 [facility] Comment on above: Performed By: #### M G, LDH, CMP #### [facility] [address] [place] [address] Dr. Ladan Mcdonald VIT B12 AND FOLATEon 023 Cobalamin (Vitamin B12) [Mass/Vol] 632.0 pg/mL Normal 193.0-986.0 [facility] Comment on above: Performed By: #### F ERR, B12FOL, FETIBC #### [facility] [address] [place] [address] Dr. Ladan Mcdonald FOLATE 10.20 ng/mL Normal 8.60-58.90 [facility] Comment on above: Performed By: #### F ERR, B12FOL, FETIBC #### [facility] [address] [place] [address] Dr. Ladan Mcdonald CBC AND DIFFERENTIALon 10-10 % AUTOMATED IMMATURE GRAN Canceled Normal [facility] Comment on above: Order Comment: TEST CBC AND DIFFERENTIAL WAS CANCELLED, 10/10/2022 15:36 NO SAMPLE RECIEVED/RELEASED IN ERROR Result Comment: Caryn ture Granulocyte Count (IG) includes promyelocytes, myelocytes and metamyelocytes but does not include bands. Percent differential counts (%) should be interpreted in the context of the absolute cell counts (cells/L). Performed By: #### C BCDF #### [facility] [id number] [place] [address] [place] [address] % BASOPHIL Canceled Normal [facility] Comment on above: Order Comment: TEST CBC AND DIFFERENTIAL WAS CANCELLED, 10/10/2022 15:36 NO SAMPLE RECIEVED/RELEASED IN ERROR Performed By: #### C BCDF #### [address] [place] [address] % EOSINOPHIL Canceled Normal [facility] Comment on above: Order Comment: TEST CBC AND DIFFERENTIAL WAS CANCELLED, 10/10/2022 15:36 NO SAMPLE RECIEVED/RELEASED IN ERROR Performed By: #### C BCDF #### [address] [place] [address] % LYMPHOCYTE Canceled Normal [facility] Comment on above: Order Comment: TEST CBC AND DIFFERENTIAL WAS CANCELLED, 10/10/2022 15:36 NO SAMPLE RECIEVED/RELEASED IN ERROR Performed By: #### C BCDF #### [address] [place] [address] % MONOCYTE Canceled Normal [facility] Comment on above: Order Comment: TEST CBC AND DIFFERENTIAL WAS CANCELLED, 10/10/2022 15:36 NO SAMPLE RECIEVED/RELEASED IN ERROR Performed By: #### C BCDF #### [address] [place] [address] % NEUTROPHIL Canceled Normal [facility] Comment on above: Order Comment: TEST CBC AND DIFFERENTIAL WAS CANCELLED, 10/10/2022 15:36 NO SAMPLE RECIEVED/RELEASED IN ERROR Performed By: #### C BCDF #### [address] [place] [address] BASOPHIL Canceled Normal [facility] Comment on above: Order Comment: TEST CBC AND DIFFERENTIAL WAS CANCELLED, 10/10/2022 15:36 NO SAMPLE RECIEVED/RELEASED IN ERROR Performed By: #### C BCDF #### [address] [place] [address] DIFFERENTIAL Canceled Normal [facility] Comment on above: Order Comment: TEST CBC AND DIFFERENTIAL WAS CANCELLED, 10/10/2022 15:36 NO SAMPLE RECIEVED/RELEASED IN ERROR Performed By: #### C BCDF #### [address] [place] [address] EOSINOPHIL Canceled Normal [facility] Comment on above: Order Comment: TEST CBC AND DIFFERENTIAL WAS CANCELLED, 10/10/2022 15:36 NO SAMPLE RECIEVED/RELEASED IN ERROR Performed By: #### C BCDF #### [address] [place] [address] HCT Canceled Normal [facility] Comment on above: Order Comment: TEST CBC AND DIFFERENTIAL WAS CANCELLED, 10/10/2022 15:36 NO SAMPLE RECIEVED/RELEASED IN ERROR Performed By: #### C BCDF #### [address] [place] [address] HGB Canceled Normal [facility] Comment on above: Order Comment: TEST CBC AND DIFFERENTIAL WAS CANCELLED, 10/10/2022 15:36 NO SAMPLE RECIEVED/RELEASED IN ERROR Performed By: #### C BCDF #### [address] [place] [address] LYMPHOCYTE Canceled Normal [facility] Comment on above: Order Comment: TEST CBC AND DIFFERENTIAL WAS CANCELLED, 10/10/2022 15:36 NO SAMPLE RECIEVED/RELEASED IN ERROR Performed By: #### C BCDF #### [address] [place] [address] MCHC Canceled Normal [facility] Comment on above: Order Comment: TEST CBC AND DIFFERENTIAL WAS CANCELLED, 10/10/2022 15:36 NO SAMPLE RECIEVED/RELEASED IN ERROR Performed By: #### C BCDF #### [address] [place] [address] MCV Canceled Normal [facility] Comment on above: Order Comment: TEST CBC AND DIFFERENTIAL WAS CANCELLED, 10/10/2022 15:36 NO SAMPLE RECIEVED/RELEASED IN ERROR Performed By: #### C BCDF #### [address] [place] [address] MONOCYTE Canceled Normal [facility] Comment on above: Order Comment: TEST CBC AND DIFFERENTIAL WAS CANCELLED, 10/10/2022 15:36 NO SAMPLE RECIEVED/RELEASED IN ERROR Performed By: #### C BCDF #### [address] [place] [address] NEUTROPHIL Canceled Normal [facility] Comment on above: Order Comment: TEST CBC AND DIFFERENTIAL WAS CANCELLED, 10/10/2022 15:36 NO SAMPLE RECIEVED/RELEASED IN ERROR Performed By: #### C BCDF #### [address] [place] [address] PLT Canceled Normal [facility] Comment on above: Order Comment: TEST CBC AND DIFFERENTIAL WAS CANCELLED, 10/10/2022 15:36 NO SAMPLE RECIEVED/RELEASED IN ERROR Performed By: #### C BCDF #### [address] [place] [address] RBC Canceled Normal [facility] Comment on above: Order Comment: TEST CBC AND DIFFERENTIAL WAS CANCELLED, 10/10/2022 15:36 NO SAMPLE RECIEVED/RELEASED IN ERROR Performed By: #### C BCDF #### [address] [place] [address] RDW-CV Canceled Normal [facility] Comment on above: Order Comment: TEST CBC AND DIFFERENTIAL WAS CANCELLED, 10/10/2022 15:36 NO SAMPLE RECIEVED/RELEASED IN ERROR Performed By: #### C BCDF #### [address] [place] [address] WBC Canceled Normal [facility] Comment on above: Order Comment: TEST CBC AND DIFFERENTIAL WAS CANCELLED, 10/10/2022 15:36 NO SAMPLE RECIEVED/RELEASED IN ERROR Performed By: #### C BCDF #### [address] [place] [address] Clinic Note - Heme Onc Miguel Ángel merissacollin 10-10-2022 Clinic Note - Heme Onc Scheduling Retrieve Patient Instructions: Patient Instructions: Patient Instructions: RetrievePatient Instructions Instructions Typenutrition Instructions Return to clinic Please call the office with any new or worsening symptoms in the meantime. End of Visit Documentation: Clinic Location/Phone Number: Clinic Location/Phone Number: [facility] [address] [facility] [place] [address] End Of Visit MU Report Item: Visit Summary given or mailed to patientyes Electronic Signatures: Whit Dugan (SEC) (Signed 10-Oct-2022 14:02) Authored: Retrieve Patient Instructions, End of Visit Documentation Last Updated: 10-Oct-2022 14:02 by Whit Dugan (SEC) [facility] Clinic Note - Heme Onc-Follo w Up Visiton 10-10-2022 Clinic Note - Heme Onc-Follow Up Visit Patient Visit Information: Visit Type: Follow Up Visit Cancer History: Treatment Synopsis: Mr. Danielle is a 58 yo M with no significant past medical history except for migraine headaches who was referred from Dr. 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 He was well until Sep 2015 occasional migraine headaches before that when he developed what seemed like a sinus infection and was treated with antibiotics and steroids. He continued to have severe throat pain, fever, and severe facial pain. He was seen by Neurology and treated for migraine headaches without any relief. He was then evaluated by ENT and underwent a nasal endoscopy which noted sphenoid sinus fullness but found no mass initially--. 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 He was referred to Dr. Rodriguez in oncology at [facility] for evaluation. 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 Bone marrow biopsy was done which was negative for involvement with lymphoma . He also underwent an LP with low yield. Because of his meningeal enhancement and location close to [employer], he was treated with hyperCVAD-MA. He received 4 cycles of hyperCVAD (last cycle 05/2016) with CR. 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 Pathology report: NOTE: The lymphoma is difficult to classify. It is composed predominantly of medium-sized irregular cells with condensed chromatin with some large cells that are CD5 and CD10 positive. Cyclin D1 was negative. There is evidence of plasmacytic differentiation as a small subset of plasmacytic cells are light chain restricted. The cells demonstrate a Ki-67 proliferation fraction of 50%.The main differential diagnosis includes a cyclin D1 negative mantle cell lymphoma and an unusual marginal zone lymphoma. The number of large cells does not appear to be great enough for a diagnosis of large B cell lymphoma. Nonetheless, with the presence of some large cells and a relatively brisk Ki-67 fraction the lesion may act more aggressively than a low-grade B cell lymphoma. Sox11 staining as well as heavy chain stains and molecular studies are pending to help in the classification of the process. Clinical correlation is suggested. The current biopsy was compared to this patient's previous biopsy ([id number]). The previous biopsy demonstrated areas of necrosis and apoptosis with cells that are more clearly large cells, features not seen, or clearly identified, in the current specimen. Nonetheless, the CD5 positivity and lambda expression is the same although CD10 and CD26 expression are different (CD10 expression may have been very very weak in the previous biopsy in retrospect). Given the findings, the processes are likely related although demonstrating different morphology. Relatedness is difficult to determine with certainty without molecular studies. 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 The patient was enrolled on [id number], Venetoclax+RICE. Cycle 1 started 10/29/17. Had tumor lysis with cycle 1 due to which venetoclax had to be stopped. Recovered with supportive therapy, renal function returned to baseline. Received 2 cycles. Admission January 06-2017, for autologous SCT with BEAM preparative regimen. T=0 January 12, 2018. Hospitalization complicated by fluid overload requiring diuretics, anorexia, nausea, mucositis, C diff negative diarrhea. 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 The patient was recently readmitted to [facility] (06/16-06/18/18) for fever and PNA. 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 He completed by mouth Levaquin. The patient was admitted to [facility] (08/18-08/21/18) with a new PE. He was started on renally dosed Lovenox. He reported bruising with some bleeding at the site of his Lovenox injections. He feels that the Lovenox made his pelvic pain worse. He was not willing to take further Lovenox and discontinued his injections (without discussion with our office) as of 08/31/18. He then was prescribed Xarelto and was only taking this intermittently because of headaches. 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 He initiated therapy on clinical research trial ADCT 1418. He was scheduled to receive C3 (09/04/18) but unable due to a persistently elevated GGT. CAR T Cell infusion 01/04/19 with tisagenlecleucel ([employer]) with preparative regimen of fludarabine and cytoxan. History of Present Illness: ID Statement: KATERINA DNAIELLE is a 61 year old Male (more content not included)... Normal [facility] Clinic Note - Intakeon 10-10 Clinic Note - Intake Patient Visit Information: Visit TypeFollow Up Visit Source of Informationpatient Admission Information: Admission Since Last VisitNo Vital Signs: Temp (degrees C)36.2 degrees C Temperaturetemporal Heart Rate (beats/min)75 beats per minute Respiration (breaths/min)18 breath per minute BP Systolic (mm Hg)Image has been removed. 143 mmHg BP Diastolic (mm Hg)81 mmHg BP Mean (mm Hg)101 mmHg Height in cm182.5 centimeter(s) Weight in kg118.6 kilogram(s) Weightstanding BMI (kg/m2)35.6 kg/M2 BSA (m2)2.45 M2 Last 3 Weights & HeightsDate: Weight/Scale Type:Height: 15-Aug-2022 12:86327.7 kg 182.5 cm 21-Feb-2022 13:73901 kg 182.5 cm 21-Nov-2021 11:71651.3 kg / standing kjxiw834.5 cm SpO2 (%)94 % SpO2 Patient Onroom air Pain Screening: Patient States Painno (0) Allergies: Bactrim: Drug, Rash, Hives/Urticaria, Itching, Active Compazine: Drug, Other (Moderate), Resp Distress, Active dapsone: Drug, Rash, Active voriconazole: Drug, Other, Active Outpatient Medication Profile: * Patient Currently Takes Medications as of 06-Sep-2022 10:55 documented in Structured Notes gabapentin 300 mg oral capsule: 1 cap(s) orally once a day , Start Date: 06-Sep-2022 omeprazole 20 mg oral delayed release tablet: 1 tab(s) orally once a day, Start Date: 10-Jun-2019 Artificial Tears ophthalmic solution: 1 drop(s) in each eye 4 times a day, As Needed -for dry eyes , Start Date: 27-Feb-2019 ondansetron 8 mg oral tablet: 1 tab(s) orally every 8 hours, As Needed -for nausea and vomiting , Start Date: 01-Feb-2019 oxyCODONE 5 mg oral tablet: 1 tab(s) orally every 4 hours, As needed, Pain - Mod (4-6), Start Date: 12-Nov-2018 albuterol 2.5 mg/3 mL (0.083%) inhalation solution: 3 milliliter(s) by nebulizer 2 times a day, As Needed , Start Date: 18-Sep-2018 albuterol 90 mcg/inh inhalation aerosol: 2 puff(s) inhaled 4 times a day, As Needed for shortness of breath, Start Date: 18-Sep-2018 ZyrTEC 10 mg oral tablet: 1 tab(s) orally once a day calcitriol: 20 milligram(s) orally once a day, M-F 2x a day Sat-Sun Hyqvia 10%-160 units/mL subcutaneous solution: every 28 days potassium bicarbonate-sodium bicarbonate: 99 milligram(s) orally once a day magnesium calcitrate: 200 milligram(s) orally once a day Notification: NotificationsAnnual Screens Due Dates Advanced Directives: Aug 15, 2023 Family Violence: Aug 15, 2023 Depression (Due every 6 months for ONC only; all others use Annual date): Feb 11, 2023 Substance Use - Alcohol: Aug 15, 2023 Substance Use - Drugs: Aug 15, 2023 Nutrition: Aug 15, 2023 Learning: Aug 15, 2023 Travel History: COVID-19 Screening Completedno exposure or symptoms Travel or ExposureNO travel to International locations in the past 30 days Falls: Have you fallen in the last 6 monthsno Do you have a fear of fallingno Do you feel you need assistanceno Is the patient using an assistive deviceno Electronic Signatures: Linda Romero (PAKO II) (Signed 10-Oct-2022 12:45) Authored: Patient Visit Information, Vital Signs, Allergies, Outpatient Medication Profile, Notification, Travel History, Falls Last Updated: 10-Oct-2022 12:45 by Linda Romero (PAKO PAGAN) Normal [facility] CBC AUTO DIFFon 09-27-2022 BASO # 0.0 103/ul Normal 0.0-0.1 [facility] Comment on above: Performed By: #### C BC #### [facility] [address] [address] [address] Ladan Mcdonald Basophils/100 WBC (Bld) 0.3 % Normal 0.2-2.0 [facility] Comment on above: Performed By: #### C BC #### [facility] [address] [address] [address] Ladan Mcdonald EO # 0.2 103/ul Normal 0.0-0.7 [facility] Comment on above: Performed By: #### C BC #### [facility] [address] [place] [address] Dr. Ladan Mcdonald Eosinophils/100 WBC (Bld) 4.8 % Normal 0.9-7.0 [facility] Comment on above: Performed By: #### C BC #### [facility] [address] [place] [address] Dr. Ladan Mcdonald Erythrocyte distribution width (RBC) [Ratio] 16.1 % Critically high 11.0-15.0 [facility] Comment on above: Performed By: #### C BC #### [facility] [address] [place] [address] Dr. Ladan Mcdonald Hematocrit (Bld) [Volume fraction] 46.7 % Normal 42.0-54.0 [facility] Comment on above: Performed By: #### C BC #### [facility] [address] [place] [address] Dr. Ladan Mcdonald Hemoglobin (Bld) [Mass/Vol] 13.6 g/dL Critically low 14.0-18.0 [facility] Comment on above: Performed By: #### C BC #### [facility] [address] [address] [address] Ladan Mcdonald IG # 0.02 10e3/ul Normal 0.00-0.03 [facility] Comment on above: Performed By: #### C BC #### [facility] [address] [address] [address] Ladan Mcdonald IG % 0.5 % Normal 0.0-0.5 [facility] Comment on above: Performed By: #### C BC #### [facility] [address] [place] [address] Dr. Ladan Mcdonald LYMPH # 1.0 103/ul Critically low 1.2-3.8 [facility] Comment on above: Performed By: #### C BC #### [facility] [address] [place] [address] Dr. Ladan Mcdonald Lymphocytes/100 WBC (Bld) 26.1 % Normal 20.5-60.0 [facility] Comment on above: Performed By: #### C BC #### [facility] [address] [place] [address] Dr. Ladan Mcdonald MANUAL DIFF REQ NO Normal [facility] Comment on above: Performed By: #### C BC #### [facility] [address] [place] [address] Dr. Ldaan Mcdonald MCH (RBC) [Entitic mass] 26.6 pg Normal 25.9-34.0 [facility] Comment on above: Performed By: #### C BC #### [facility] [address] [place] [address] Dr. Ladan Mcdonald MCHC (RBC) [Mass/Vol] 29.1 g/dL Critically low 29.9-35.2 [facility] Comment on above: Performed By: #### C BC #### [facility] [address] [place] [address] Dr. Ladan Mcdonald MCV (RBC) [Entitic vol] 91.4 fL Normal 80.0-94.0 [facility] Comment on above: Performed By: #### C BC #### [facility] [address] [place] [address] Dr. Ladan Mcdonald MONO # 0.4 103/ul Normal 0.3-0.8 [facility] Comment on above: Performed By: #### C BC #### [facility] [address] [place] [address] Dr. Ladan Mcdonald Monocytes/100 WBC (Bld) 8.8 % Normal 1.7-12.0 [facility] Comment on above: Performed By: #### C BC #### [facility] [address] [place] [address] Dr. Ladan Mcdonald NEUT # 2.4 103/ul Normal 1.4-6.5 [facility] Comment on above: Performed By: #### C BC #### [facility] [address] [place] [address] Dr. Ladan Mcdonald Neutrophils/100 WBC (Bld) 59.5 % Normal 43.0-75.0 [facility] Comment on above: Performed By: #### C BC #### [facility] [address] [place] [address] Dr. Ladan Mcdonald Platelet mean volume (Bld) [Entitic vol] 10.1 fL Normal 9.5-13.5 [facility] Comment on above: Performed By: #### C BC #### [facility] [address] [place] [address] Dr. Ladan Mcdonald PLT 132 103/ul Critically low 150-450 [facility] Comment on above: Performed By: #### C BC #### [facility] [address] [place] [address] Dr. Ladan Mcdonald RBC 5.11 106/ul Normal 4.70-6.10 [facility] Comment on above: Performed By: #### C BC #### [facility] [address] [place] [address] Dr. Ladan Mcdonald WBC 4.0 103/ul Normal 4.0-11.0 [facility] Comment on above: Performed By: #### C BC #### [facility] [address] [place] [address] Dr. Ladan Mcdonald LDHon 09-27-2022 LDH 256 U/L Critically high 85-227 [facility] Comment on above: Performed By: #### M G, LDH, CMP #### [facility] [address] [place] [address] Dr. Ladan Mcdonald MAGNESIUMon 09-27-2022 Magnesium [Mass/Vol] 2.1 mg/dL Normal 1.8-2.4 [facility] Comment on above: Performed By: #### M G, LDH, CMP #### [facility] [address] [address] [address] Ladan Mcdonald PROF 14(COMP METB)on 023 Albumin [Mass/Vol] 3.5 g/dL Normal 3.4-5.0 [facility] Comment on above: Performed By: #### M G, LDH, CMP #### [facility] [address] [place] [address] Dr. Ladan Mcdonald Albumin/Globulin [Mass ratio] 1.0 {ratio} Normal [facility] Comment on above: Performed By: #### M G, LDH, CMP #### [facility] [address] [place] [address] Dr. Ladan Mcdonald ALP [Catalytic activity/Vol] 121 U/L Critically high 46-116 [facility] Comment on above: Performed By: #### M G, LDH, CMP #### [facility] [address] [place] [address] Dr. Ladan Mcdonald ALT [Catalytic activity/Vol] 51 U/L Normal 16-63 [facility] Comment on above: Performed By: #### M G, LDH, CMP #### [facility] [address] [place] [address] Dr. Ladan Mcdonald Anion gap [Moles/Vol] 11.7 mmol/L Normal [facility] Comment on above: Performed By: #### M G, LDH, CMP #### [facility] [address] [place] [address] Dr. Ladan Mcdonald AST [Catalytic activity/Vol] 33 U/L Normal 15-37 [facility] Comment on above: Performed By: #### M G, LDH, CMP #### [facility] [address] [address] [address] Ladan Mcdonald Bilirubin [Mass/Vol] 0.4 mg/dL Normal 0.2-1.0 [facility] Comment on above: Performed By: #### M G, LDH, CMP #### [facility] [address] [address] [address] Ladan Mcdonald Calcium [Mass/Vol] 9.4 mg/dL Normal 8.5-10.1 [facility] Comment on above: Performed By: #### M G, LDH, CMP #### [facility] [address] [address] [address] Ladan Mcdonald Chloride [Moles/Vol] 104 mmol/L Normal 98-107 [facility] Comment on above: Performed By: #### M G, LDH, CMP #### [facility] [address] [place] [address] Dr. Ladan Mcdonald CO2 [Moles/Vol] 29.0 mmol/L Normal 21.0-32.0 [facility] Comment on above: Performed By: #### M G, LDH, CMP #### [facility] [address] [address] [address] Ladan Mcdonald Creatinine [Mass/Vol] 1.61 mg/dL Critically high 0.70-1.30 [facility] Comment on above: Performed By: #### M G, LDH, CMP #### [facility] [address] [address] [address] Ladan Mcdonald EGFR-AF COMORAN 53 mL/min/1.73m2 Critically low >=60 [facility] Comment on above: Performed By: #### M G, LDH, CMP #### [facility] [address] [place] [address] Dr. Ladan Mcdonald EGFR-NON AF COMORAN 44 mL/min/1.73m2 Critically low >=60 [facility] Comment on above: Performed By: #### M G, LDH, CMP #### [facility] [address] [address] [address] Ladan Mcdonald Globulin (S) [Mass/Vol] 3.6 g/dL Normal [facility] Comment on above: Performed By: #### M G, LDH, CMP #### [facility] [address] [place] [address] Dr. Ladan Mcdonald Glucose [Mass/Vol] 107 mg/dL Critically high 74-106 [facility] Comment on above: Performed By: #### M G, LDH, CMP #### [facility] [address] [place] [address] Dr. Ladan Mcdonald Potassium [Moles/Vol] 4.7 mmol/L Normal 3.5-5.1 [facility] Comment on above: Performed By: #### M G, LDH, CMP #### [facility] [address] [place] [address] Dr. Ladan Mcdonald Protein [Mass/Vol] 7.1 g/dL Normal 6.4-8.2 [facility] Comment on above: Performed By: #### M G, LDH, CMP #### [facility] [address] [place] [address] Dr. Ladan Mcdonald Sodium [Moles/Vol] 140 mmol/L Normal 136-145 [facility] Comment on above: Performed By: #### M G, LDH, CMP #### [facility] [address] [place] [address] Dr. Ladan Mcdonald Urea nitrogen [Mass/Vol] 27.0 mg/dL Critically high 7.0-18.0 [facility] Comment on above: Performed By: #### M G, LDH, CMP #### [facility] [address] [place] [address] Dr. Ladan Mcdonald Urea nitrogen/Creatinine [Mass ratio] 16.8 mg/mg Normal [facility] Comment on above: Performed By: #### M G, LDH, CMP #### [facility] [address] [place] [address] Dr. Ladan Mcdonald Phone Note - Heme Onc-lab re quisitionon 09-27-2022 Phone Note - Heme Onc-lab requisition Phone Call Information: Patient Demographics: Name: KATERINA DANIELLE Date: 1960 Address: [address] [place] [address] Date and Time: 27-Sep-2022 08:29 Caller Information: call from Primary Phone Number: [phone] Reason for Call: Reason for Calllab requisition Message: Message: Needs lab order sent to [facility] in [place], [place] or [facility] in [place], [place]. Has appointment scheduled for next . Patient called back- fax number to lab at [facility]: [phone] Team Communication: Team Communications: RN printed and this medical assistant secretary faxed. Confirmation received 10:21am. Ashley Dugan 09/27/2022 10:26 Outpatient Medication Profile: * Patient Currently Takes Medications as of 06-Sep-2022 10:55 documented in Structured Notes gabapentin 300 mg oral capsule: 1 cap(s) orally once a day , Start Date: 06-Sep-2022 omeprazole 20 mg oral delayed release tablet: 1 tab(s) orally once a day, Start Date: 10-Jun-2019 Artificial Tears ophthalmic solution: 1 drop(s) in each eye 4 times a day, As Needed -for dry eyes , Start Date: 27-Feb-2019 ondansetron 8 mg oral tablet: 1 tab(s) orally every 8 hours, As Needed -for nausea and vomiting , Start Date: 01-Feb-2019 oxyCODONE 5 mg oral tablet: 1 tab(s) orally every 4 hours, As needed, Pain - Mod (4-6), Start Date: 12-Nov-2018 albuterol 2.5 mg/3 mL (0.083%) inhalation solution: 3 milliliter(s) by nebulizer 2 times a day, As Needed , Start Date: 18-Sep-2018 albuterol 90 mcg/inh inhalation aerosol: 2 puff(s) inhaled 4 times a day, As Needed for shortness of breath, Start Date: 18-Sep-2018 ZyrTEC 10 mg oral tablet: 1 tab(s) orally once a day calcitriol: 20 milligram(s) orally once a day, M-F 2x a day Sat-Sun Hyqvia 10%-160 units/mL subcutaneous solution: every 28 days potassium bicarbonate-sodium bicarbonate: 99 milligram(s) orally once a day magnesium calcitrate: 200 milligram(s) orally once a day Orders: Complete Blood Count + Differential, 28-May-2018 Complete Blood Count + Differential, 14-Nov-2021 Comprehensive Metabolic Panel, 14-Nov-2021 Complete Blood Count + Differential, 29-Aug-2022 Comprehensive Metabolic Panel, 29-Aug-2022 Lactate Dehydrogenase, Serum, 29-Aug-2022 Magnesium, Serum, 29-Aug-2022 Allergies: Bactrim: Rash, Hives/Urticaria, Itching Compazine: Other (Moderate), Resp Distress dapsone: Rash voriconazole: Other Lab Results: Results CBC date/time WBC HGB HCT PLT Neut 21-Feb-2022 14:00 N/A N/A N/A N/A N/A BMP date/time NA K CL CO2 BUN CREAT 21-Feb-2022 14:00 N/A N/A N/A N/A N/A N/A Hepatic date/time T Pro T Bili AST ALT ALKP ALB 12-Jan-2019 03:46 4.6(L) 0.8 N/A 13 202(H) 3.1(L) LDH date/time LDH 21-Feb-2022 14:00 N/A Electronic Signatures: Ashley Dugan (UNIT SECT) (Signed 27-Sep-2022 10:26) Authored: Phone Call Information, Outpatient Medication Profile, Orders, Allergies, Results Last Updated: 27-Sep-2022 10:26 by Ashley Dugan (UNIT SECT) [facility] Phone Note - Heme Onc-refill medication...on 09-06-2022 Phone Note - Heme Onc-refill medication... Phone Call Information: Patient Demographics: Name: KATERINA DANIELLE Date: 1960 Address: [address] [place] [address] Date and Time: 06-Sep-2022 10:40 Caller Information: call from Call From: patient Primary Phone Number: [phone] Reason for Call: Reason for Callrefill medication Message: Message: Patient fills Gabapentin with [facility] that is now [facility]. He has 14 pills left. They will not refill for him until 09/22/22 and then say it will be 1-2 weeks before delivery. He will be out of medication by then. Asking if office can rectify Team Communication: Clinician note: contacted patient Disposition: Rx sent by [facility] Team Communications: Spoke with Yas at [facility] pharmacy. States patient needs a refill for gabapentin sent in and then he will be able to receive the medication within 7 business days or less. Tea Oro 09/06/2022 11:[address] Sears: KAETRINA DANIELLE ([id number]): Needs refill of gabapentin 300mg daily please Anirudh Sears MD09/06/2022 11:17 AM Yes ok to refill Spoke with the patient. Provided the patient the update. Refill sent in to patient's mail order pharmacy. pt had no further questions or concerns at this time, Tea Oro 09/06/2022 11:22 Outpatient Medication Profile: * Patient Currently Takes Medications as of 15-Aug-2022 12:46 documented in Structured Notes gabapentin 300 mg oral capsule: 1 cap(s) orally once a day , Start Date: 21-Nov-2021 omeprazole 20 mg oral delayed release tablet: 1 tab(s) orally once a day, Start Date: 10-Jun-2019 Artificial Tears ophthalmic solution: 1 drop(s) in each eye 4 times a day, As Needed -for dry eyes , Start Date: 27-Feb-2019 ondansetron 8 mg oral tablet: 1 tab(s) orally every 8 hours, As Needed -for nausea and vomiting , Start Date: 01-Feb-2019 oxyCODONE 5 mg oral tablet: 1 tab(s) orally every 4 hours, As needed, Pain - Mod (4-6), Start Date: 12-Nov-2018 albuterol 2.5 mg/3 mL (0.083%) inhalation solution: 3 milliliter(s) by nebulizer 2 times a day, As Needed , Start Date: 18-Sep-2018 albuterol 90 mcg/inh inhalation aerosol: 2 puff(s) inhaled 4 times a day, As Needed for shortness of breath, Start Date: 18-Sep-2018 Hyqvia 10%-160 units/mL subcutaneous solution: every 28 days ZyrTEC 10 mg oral tablet: 1 tab(s) orally once a day calcitriol: 20 milligram(s) orally once a day, M-F 2x a day Sat-Sun potassium bicarbonate-sodium bicarbonate: 99 milligram(s) orally once a day magnesium calcitrate: 200 milligram(s) orally once a day Orders: Complete Blood Count + Differential, 28-May-2018 Complete Blood Count + Differential, 14-Nov-2021 Comprehensive Metabolic Panel, 14-Nov-2021 Complete Blood Count + Differential, 29-Aug-2022 Comprehensive Metabolic Panel, 29-Aug-2022 Lactate Dehydrogenase, Serum, 29-Aug-2022 Magnesium, Serum, 29-Aug-2022 Allergies: Bactrim: Rash, Hives/Urticaria, Itching Compazine: Other (Moderate), Resp Distress dapsone: Rash voriconazole: Other Lab Results: Results CBC date/time WBC HGB HCT PLT Neut 21-Feb-2022 14:00 N/A N/A N/A N/A N/A BMP date/time NA K CL CO2 BUN CREAT 21-Feb-2022 14:00 N/A N/A N/A N/A N/A N/A Hepatic date/time T Pro T Bili AST ALT ALKP ALB 12-Jan-2019 03:46 4.6(L) 0.8 N/A 13 202(H) 3.1(L) LDH date/time LDH 21-Feb-2022 14:00 N/A Electronic Signatures: Tea Oro (N MGR) (Signed 06-Sep-2022 11:22) Authored: Phone Call Information Ashley Dugan (UNIT SECT) (Signed 06-Sep-2022 10:43) Authored: Phone Call Information, Outpatient Medication Profile, Orders, Allergies, Results Last Updated: 06-Sep-2022 11:22 by Tea Oro (N MGR) Normal [facility] Clinic Note - Heme Onc-Follo w Up Visiton 08-15-2022 Clinic Note - Heme Onc-Follow Up Visit Patient Visit Information: Visit Type: Follow Up Visit Cancer History: Treatment Synopsis: Mr. Danielle is a 58 yo M with no significant past medical history except for migraine headaches who was referred from Dr. 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 He was well until Sep 2015 occasional migraine headaches before that when he developed what seemed like a sinus infection and was treated with antibiotics and steroids. He continued to have severe throat pain, fever, and severe facial pain. He was seen by Neurology and treated for migraine headaches without any relief. He was then evaluated by ENT and underwent a nasal endoscopy which noted sphenoid sinus fullness but found no mass initially--. 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 He was referred to Dr. Rodriguez in oncology at [facility] for evaluation. 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 Bone marrow biopsy was done which was negative for involvement with lymphoma . He also underwent an LP with low yield. Because of his meningeal enhancement and location close to [employer], he was treated with hyperCVAD-MA. He received 4 cycles of hyperCVAD (last cycle 05/2016) with CR. 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 Pathology report: NOTE: The lymphoma is difficult to classify. It is composed predominantly of medium-sized irregular cells with condensed chromatin with some large cells that are CD5 and CD10 positive. Cyclin D1 was negative. There is evidence of plasmacytic differentiation as a small subset of plasmacytic cells are light chain restricted. The cells demonstrate a Ki-67 proliferation fraction of 50%.The main differential diagnosis includes a cyclin D1 negative mantle cell lymphoma and an unusual marginal zone lymphoma. The number of large cells does not appear to be great enough for a diagnosis of large B cell lymphoma. Nonetheless, with the presence of some large cells and a relatively brisk Ki-67 fraction the lesion may act more aggressively than a low-grade B cell lymphoma. Sox11 staining as well as heavy chain stains and molecular studies are pending to help in the classification of the process. Clinical correlation is suggested. The current biopsy was compared to this patient's previous biopsy ([id number]). The previous biopsy demonstrated areas of necrosis and apoptosis with cells that are more clearly large cells, features not seen, or clearly identified, in the current specimen. Nonetheless, the CD5 positivity and lambda expression is the same although CD10 and CD26 expression are different (CD10 expression may have been very very weak in the previous biopsy in retrospect). Given the findings, the processes are likely related although demonstrating different morphology. Relatedness is difficult to determine with certainty without molecular studies. 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 The patient was enrolled on [id number], Venetoclax+RICE. Cycle 1 started 10/29/17. Had tumor lysis with cycle 1 due to which venetoclax had to be stopped. Recovered with supportive therapy, renal function returned to baseline. Received 2 cycles. Admission January 06-2017, for autologous SCT with BEAM preparative regimen. T=0 January 12, 2018. Hospitalization complicated by fluid overload requiring diuretics, anorexia, nausea, mucositis, C diff negative diarrhea. 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 The patient was recently readmitted to [facility] (06/16-06/18/18) for fever and PNA. 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 He completed by mouth Levaquin. The patient was admitted to [facility] (08/18-08/21/18) with a new PE. He was started on renally dosed Lovenox. He reported bruising with some bleeding at the site of his Lovenox injections. He feels that the Lovenox made his pelvic pain worse. He was not willing to take further Lovenox and discontinued his injections (without discussion with our office) as of 08/31/18. He then was prescribed Xarelto and was only taking this intermittently because of headaches. 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 He initiated therapy on clinical research trial ADCT 1418. He was scheduled to receive C3 (09/04/18) but unable due to a persistently elevated GGT. CAR T Cell infusion 01/04/19 with tisagenlecleucel ([email or web address].COMCV [employer]) with preparative regimen of fludarabine and cytoxan. History of Present Illness: ID Statement: KATERINA DANIELLE is a 61 year old Male (more content not included)... Normal [facility] Clinic Note - Intakeon 08-15 Clinic Note - Intake Patient Visit Information: Visit TypeFollow Up Visit Source of Informationpatient Admission Information: Admission Since Last VisitNo Vital Signs: Temp (degrees C)36 degrees C Temperaturetemporal Heart Rate (beats/min)85 beats per minute Respiration (breaths/min)16 breath per minute BP Systolic (mm Hg)Image has been removed. 142 mmHg BP Diastolic (mm Hg)87 mmHg BP Mean (mm Hg)105 mmHg Height in cm182.5 centimeter(s) Weight in kg118.7 kilogram(s) Weightstanding BMI (kg/m2)35.6 kg/M2 BSA (m2)2.45 M2 Last 3 Weights & HeightsDate: Weight/Scale Type:Height: 21-Feb-2022 13:22935 kg 182.5 cm 21-Nov-2021 11:84853.3 kg / standing wdynq851.5 cm 23-Aug-2021 13:50353.3 kg / standing .5 cm SpO2 (%)94 % SpO2 Patient Onroom air Pain Screening: Patient States Painyes Current Pain Score (0-10)3 Pain Description/Locationabd pain Pain Scale UsedNumeric (0-10) Currently on a Pain Regimenno Allergies: Bactrim: Drug, Rash, Hives/Urticaria, Itching, Active Compazine: Drug, Other (Moderate), Resp Distress, Active dapsone: Drug, Rash, Active voriconazole: Drug, Other, Active Outpatient Medication Profile: * Patient Currently Takes Medications as of 21-Feb-2022 13:51 documented in Structured Notes gabapentin 300 mg oral capsule: 1 cap(s) orally once a day , Start Date: 21-Nov-2021 omeprazole 20 mg oral delayed release tablet: 1 tab(s) orally once a day, Start Date: 10-Jun-2019 Artificial Tears ophthalmic solution: 1 drop(s) in each eye 4 times a day, As Needed -for dry eyes , Start Date: 27-Feb-2019 ondansetron 8 mg oral tablet: 1 tab(s) orally every 8 hours, As Needed -for nausea and vomiting , Start Date: 01-Feb-2019 oxyCODONE 5 mg oral tablet: 1 tab(s) orally every 4 hours, As needed, Pain - Mod (4-6), Start Date: 12-Nov-2018 albuterol 2.5 mg/3 mL (0.083%) inhalation solution: 3 milliliter(s) by nebulizer 2 times a day, As Needed , Start Date: 18-Sep-2018 albuterol 90 mcg/inh inhalation aerosol: 2 puff(s) inhaled 4 times a day, As Needed for shortness of breath, Start Date: 18-Sep-2018 ZyrTEC 10 mg oral tablet: 1 tab(s) orally once a day calcitriol: 20 milligram(s) orally once a day, M-F 2x a day Sat-Sun potassium bicarbonate-sodium bicarbonate: 99 milligram(s) orally once a day magnesium calcitrate: 200 milligram(s) orally once a day Notification: NotificationsAll annual screens currently due. Travel History: COVID-19 Screening Completedno exposure or symptoms Travel or ExposureNO travel to International locations in the past 30 days Falls: Have you fallen in the last 6 monthsno Do you have a fear of fallingno Do you feel you need assistanceno Is the patient using an assistive deviceno Spiritual/Procedural: Spiritual/cultural/religi ous practices important for us to knowno [facility] of Mental Health Treatmentno Violence: Are you or have you been threatened or abused physically,emotionally or sexually abused by anyoneno Do you feel UNSAFE going back to the place you are livingno Depression: Past 2 wks: [place] down, depressed or hopelessno Past 2 wks: [place] little interest/pleasure doing thingsno Any Thoughts of Harming Othersno In the Past Month: Have you wished you were or could go to sleep and not wake upno In the Past Month: Have you had any actual thoughts of killing yourselfno Lifetime: Have you ever done, started to do, or prepared to do anything to end your lifeno Substance: How many times in the past year have you hd 5 or more drinks within 24 hours0 Patient Declined to Answerno How many times in past year have you used recreational or prescription drugs for non-medical reasons0 Nutrition/Learning: In the past month, was there any day when you or anyone in your family went hungry because you didn't have enough foodno Primary LanguageEnglish Do you, or others today, need extra help due to problems with hearing,speaking, seeing, moving around or learningno Other Miller Learnerno Electronic Signatures: Linda Romero (PAKO II) (Signed 15-Aug-2022 12:44) Authored: Patient Visit Information, Vital Signs, Allergies, Outpatient Medication Profile, Notification, Travel History, Falls, Spiritual/Procedural, Adv Dir, Violence, Depression, Substance, Nutrition/Learning Last Updated: 15-Aug-2022 12:44 by Linda Romero (PAKO II) Normal [facility] CBC AUTO DIFFon 08-12-2022 BASO # 0.0 103/ul Normal 0.0-0.1 [facility] Comment on above: Performed By: #### C BC #### [facility] [address] [address] [address] Ladan Mcdonald Basophils/100 WBC (Bld) 0.5 % Normal 0.2-2.0 [facility] Comment on above: Performed By: #### C BC #### [facility] [address] [place] [address] Dr. Ladan Mcdonald EO # 0.2 103/ul Normal 0.0-0.7 [facility] Comment on above: Performed By: #### C BC #### [facility] [address] [place] [address] Dr. Ladan Mcdonald Eosinophils/100 WBC (Bld) 4.3 % Normal 0.9-7.0 [facility] Comment on above: Performed By: #### C BC #### [facility] [address] [place] [address] Dr. Ladan Mcdonald Erythrocyte distribution width (RBC) [Ratio] 15.7 % Critically high 11.0-15.0 [facility] Comment on above: Performed By: #### C BC #### [facility] [address] [place] [address] Dr. Ladan Mcdonald Hematocrit (Bld) [Volume fraction] 44.2 % Normal 42.0-54.0 [facility] Comment on above: Performed By: #### C BC #### [facility] [address] [place] [address] Dr. Ladan Mcdonald Hemoglobin (Bld) [Mass/Vol] 14.0 g/dL Normal 14.0-18.0 [facility] Comment on above: Performed By: #### C BC #### [facility] [address] [place] [address] Dr. Ladan Mcdonald IG # 0.06 10e3/ul Critically high 0.00-0.03 [facility] Comment on above: Performed By: #### C BC #### [facility] [address] [place] [address] Dr. Ladan Mcdonald IG % 1.5 % Critically high 0.0-0.5 [facility] Comment on above: Performed By: #### C BC #### [facility] [address] [address] [address] Ladan Mcdonald LYMPH # 1.4 103/ul Normal 1.2-3.8 [facility] Comment on above: Performed By: #### C BC #### [facility] [address] [place] [address] Dr. Ladan Mcdonald Lymphocytes/100 WBC (Bld) 35.2 % Normal 20.5-60.0 [facility] Comment on above: Performed By: #### C BC #### [facility] [address] [place] [address] Dr. Ladan Mcdonald MANUAL DIFF REQ NO Normal [facility] Comment on above: Performed By: #### C BC #### [facility] [address] [place] [address] Dr. Ladan Mcdonald MCH (RBC) [Entitic mass] 26.4 pg Normal 25.9-34.0 [facility] Comment on above: Performed By: #### C BC #### [facility] [address] [place] [address] Dr. Ladan Mcdonald MCHC (RBC) [Mass/Vol] 31.7 g/dL Normal 29.9-35.2 [facility] Comment on above: Performed By: #### C BC #### [facility] [address] [place] [address] Dr. Ladan Mcdonald MCV (RBC) [Entitic vol] 83.2 fL Normal 80.0-94.0 [facility] Comment on above: Performed By: #### C BC #### [facility] [address] [place] [address] Dr. Ladan Mcdonald MONO # 0.3 103/ul Normal 0.3-0.8 [facility] Comment on above: Performed By: #### C BC #### [facility] [address] [place] [address] Dr. Ladan Mcdonald Monocytes/100 WBC (Bld) 6.4 % Normal 1.7-12.0 [facility] Comment on above: Performed By: #### C BC #### [facility] [address] [place] [address] Dr. Ladan Mcdonald NEUT # 2.0 103/ul Normal 1.4-6.5 [facility] Comment on above: Performed By: #### C BC #### [facility] [address] [place] [address] Dr. Ladan Mcdonald Neutrophils/100 WBC (Bld) 52.1 % Normal 43.0-75.0 [facility] Comment on above: Performed By: #### C BC #### [facility] [address] [place] [address] Dr. Ladan Mcdonald Platelet mean volume (Bld) [Entitic vol] 9.4 fL Critically low 9.5-13.5 [facility] Comment on above: Performed By: #### C BC #### [facility] [address] [place] [address] Dr. Ladan Mcdonald PLT 137 103/ul Critically low 150-450 [facility] Comment on above: Performed By: #### C BC #### [facility] [address] [place] [address] Dr. Ladan Mcdonald RBC 5.31 106/ul Normal 4.70-6.10 [facility] Comment on above: Performed By: #### C BC #### [facility] [address] [place] [address] Dr. Ladan Mcdonald WBC 3.9 103/ul Critically low 4.0-11.0 [facility] Comment on above: Performed By: #### C BC #### [facility] [address] [place] [address] Dr. Ladan Mcdonald LDHon 08-12-2022 LDH 196 U/L Normal 85-227 [facility] Comment on above: Performed By: #### M G, LDH, CMP #### [facility] [address] [address] [address] Ladan Mcdonald MAGNESIUMon 08-12-2022 Magnesium [Mass/Vol] 2.1 mg/dL Normal 1.8-2.4 [facility] Comment on above: Performed By: #### M G, LDH, CMP #### [facility] [address] [address] [address] Ladan Mcdonald PROF 14(COMP METB)on 022 Albumin [Mass/Vol] 3.5 g/dL Normal 3.4-5.0 [facility] Comment on above: Performed By: #### M G, LDH, CMP #### [facility] [address] [place] [address] Dr. Ladan Mcdonald Albumin/Globulin [Mass ratio] 0.9 {ratio} Normal [facility] Comment on above: Performed By: #### M G, LDH, CMP #### [facility] [address] [place] [address] Dr. Ladan Mcdonald ALP [Catalytic activity/Vol] 118 U/L Critically high 46-116 [facility] Comment on above: Performed By: #### M G, LDH, CMP #### [facility] [address] [place] [address] Dr. Ladan Mcdonald ALT [Catalytic activity/Vol] 46 U/L Normal 16-63 [facility] Comment on above: Performed By: #### M G, LDH, CMP #### [facility] [address] [place] [address] Dr. Ladan Mcdonald Anion gap [Moles/Vol] 8.7 mmol/L Normal [facility] Comment on above: Performed By: #### M G, LDH, CMP #### [facility] [address] [place] [address] Dr. Ladan Mcdonald AST [Catalytic activity/Vol] 30 U/L Normal 15-37 [facility] Comment on above: Performed By: #### M G, LDH, CMP #### [facility] [address] [address] [address] Ladan Mcdonald Bilirubin [Mass/Vol] 0.4 mg/dL Normal 0.2-1.0 [facility] Comment on above: Performed By: #### M G, LDH, CMP #### [facility] [address] [place] [address] Dr. Ladan Mcdonald Calcium [Mass/Vol] 9.1 mg/dL Normal 8.5-10.1 [facility] Comment on above: Performed By: #### M G, LDH, CMP #### [facility] [address] [place] [address] Dr. Ladan Mcdonald Chloride [Moles/Vol] 106 mmol/L Normal 98-107 [facility] Comment on above: Performed By: #### M G, LDH, CMP #### [facility] [address] [place] [address] Dr. Ladan Mcdonald CO2 [Moles/Vol] 31.9 mmol/L Normal 21.0-32.0 [facility] Comment on above: Performed By: #### M G, LDH, CMP #### [facility] [address] [place] [address] Dr. Ladan Mcdonald Creatinine [Mass/Vol] 1.68 mg/dL Critically high 0.70-1.30 [facility] Comment on above: Performed By: #### M G, LDH, CMP #### [facility] [address] [place] [address] Dr. Ladan Mcdonald EGFR-AF COMORAN 51 mL/min/1.73m2 Critically low >=60 [facility] Comment on above: Performed By: #### M G, LDH, CMP #### [facility] [address] [place] [address] Dr. Ladan Mcdonald EGFR-NON AF COMORAN 42 mL/min/1.73m2 Critically low >=60 [facility] Comment on above: Performed By: #### M G, LDH, CMP #### [facility] [address] [place] [address] Dr. Ladan Mcdonald Globulin (S) [Mass/Vol] 3.7 g/dL Normal [facility] Comment on above: Performed By: #### M G, LDH, CMP #### [facility] [address] [address] [address] Ladan Mcdonald Glucose [Mass/Vol] 110 mg/dL Critically high 74-106 [facility] Comment on above: Performed By: #### M G, LDH, CMP #### [facility] [address] [place] [address] Dr. Ladan Mcdonald Potassium [Moles/Vol] 4.6 mmol/L Normal 3.5-5.1 [facility] Comment on above: Performed By: #### M G, LDH, CMP #### [facility] [address] [place] [address] Dr. aLdan Mcdonald Protein [Mass/Vol] 7.2 g/dL Normal 6.4-8.2 [facility] Comment on above: Performed By: #### M G, LDH, CMP #### [facility] [address] [place] [address] Dr. Ladan Mdconald Sodium [Moles/Vol] 142 mmol/L Normal 136-145 [facility] Comment on above: Performed By: #### M G, LDH, CMP #### [facility] [address] [place] [address] Dr. Ladan Mcdonald Urea nitrogen [Mass/Vol] 24.0 mg/dL Critically high 7.0-18.0 [facility] Comment on above: Performed By: #### M G, LDH, CMP #### [facility] [address] [place] [address] Dr. Ladan Mcdonald Urea nitrogen/Creatinine [Mass ratio] 14.3 mg/mg Normal [facility] Comment on above: Performed By: #### M G, LDH, CMP #### [facility] [address] [place] [address] Dr. Ladan Mcdonald Phone Note - Heme Onc-lab re quisition - Mailing lab reqon 08-06-2022 Phone Note - Heme Onc-lab requisition - Mailing lab req Phone Call Information: Patient Demographics: Name: KATERINA DANIELLE Date: 1960 Address: [address] [place] [address] [address] [place] [id number] Date and Time: 06-Aug-2022 10:58 Caller Information: call from Primary Phone Number: [phone] Reason for Call: Reason for Calllab requisition, Mailing lab req Message: Message: Patient has appointment with Dr. Sears 08/15/22. He never got lab slip- usually goes locally before hand. Can this be mailed to him so he can go to lab by Friday Team Communication: Team Communications: I spoke with Katerina. I told him that I will print his lab slip and mail it to him today. He was very appreciative and denied further questions at this time. Zofia Smith 08/06/2022 11:16 Outpatient Medication Profile: * Patient Currently Takes Medications as of 21-Feb-2022 13:51 documented in Structured Notes gabapentin 300 mg oral capsule: 1 cap(s) orally once a day , Start Date: 21-Nov-2021 omeprazole 20 mg oral delayed release tablet: 1 tab(s) orally once a day, Start Date: 10-Jun-2019 Artificial Tears ophthalmic solution: 1 drop(s) in each eye 4 times a day, As Needed -for dry eyes , Start Date: 27-Feb-2019 ondansetron 8 mg oral tablet: 1 tab(s) orally every 8 hours, As Needed -for nausea and vomiting , Start Date: 01-Feb-2019 oxyCODONE 5 mg oral tablet: 1 tab(s) orally every 4 hours, As needed, Pain - Mod (4-6), Start Date: 12-Nov-2018 albuterol 2.5 mg/3 mL (0.083%) inhalation solution: 3 milliliter(s) by nebulizer 2 times a day, As Needed , Start Date: 18-Sep-2018 albuterol 90 mcg/inh inhalation aerosol: 2 puff(s) inhaled 4 times a day, As Needed for shortness of breath, Start Date: 18-Sep-2018 ZyrTEC 10 mg oral tablet: 1 tab(s) orally once a day calcitriol: 20 milligram(s) orally once a day, M-F 2x a day Sat-Sun potassium bicarbonate-sodium bicarbonate: 99 milligram(s) orally once a day magnesium calcitrate: 200 milligram(s) orally once a day Orders: Complete Blood Count + Differential, 28-May-2018 Complete Blood Count + Differential, 14-Nov-2021 Comprehensive Metabolic Panel, 14-Nov-2021 Complete Blood Count + Differential, 29-Aug-2022 Comprehensive Metabolic Panel, 29-Aug-2022 Lactate Dehydrogenase, Serum, 29-Aug-2022 Magnesium, Serum, 29-Aug-2022 Allergies: Bactrim: Rash, Hives/Urticaria, Itching Compazine: Other (Moderate), Resp Distress dapsone: Rash voriconazole: Other Lab Results: Results CBC date/time WBC HGB HCT PLT Neut 21-Feb-2022 14:00 N/A N/A N/A N/A N/A BMP date/time NA K CL CO2 BUN CREAT 21-Feb-2022 14:00 N/A N/A N/A N/A N/A N/A Hepatic date/time T Pro T Bili AST ALT ALKP ALB 12-Jan-2019 03:46 4.6(L) 0.8 N/A 13 202(H) 3.1(L) LDH date/time LDH 21-Feb-2022 14:00 N/A Electronic Signatures: Zofia Smith (RN) (Signed 06-Aug-2022 11:16) Authored: Phone Call Information Ashley Dugan (UNIT SECT) (Signed 06-Aug-2022 11:00) Authored: Phone Call Information, Outpatient Medication Profile, Orders, Allergies, Results Last Updated: 06-Aug-2022 11:16 by Zofia Smith (RN) Normal [facility] XR CHEST 2 Von 07-18-2022 XR CHEST 2 V EXAMINATION: XR CHES T 2 V HISTORY: Cough ; chronic cough, shortness of breath, chest pain COMPARISON: XR chest 06/16/2018 FINDINGS: LUNGS: Mild chronic stranding within the lingula, unchanged. Underexpanded lungs without appreciable infiltrates or mass. VASCULATURE: No increased pulmonary vasculature. PLEURA: No pneumothorax, effusion, or pleural thickening. CARDIAC: No cardiomegaly or cardiac silhouette abnormality. MEDIASTINUM: No visible mass or adenopathy. BONES: No fracture or visible bone lesion. OTHER: Negative. IMPRESSION: 1. No acute cardiopulmonary process. Stable chest. Electronically authenticated by: JS LÓPEZ Date: 2022-07-18 15:06 Normal [facility] Office Visit (Onco-Nephrolog y - Established)on 07-16-2022 Follow-up visit Diagnoses/Problems CKD (chronic kidney disease), stage III (585.3) (N18.30) Benign essential HTN (401.1) (I10) Hyperparathyroidism, secondary (588.81) (N25.81) Orders Benign essential HTN, CKD (chronic kidney disease), stage III, Hyperparathyroidism, secondary Basic Metabolic Panel; Status:Active; Requested for:[id number]; Parathormone Intact, Serum; Status:Active; Requested for:[id number]; Phosphorus, Serum; Status:Active; Requested for:[id number]; Provider Impressions 1- CKD III: His Cr level is 1.74. Stable kidney function. He has history of lymphoma with multiple relapses. He had multiple exposures to iv contrast over the past few years. He had a CAR-T treatment back in December 2018. He is getting IVIG. Last spot urine protein to creatinine ratio did not show significant proteinuria. Volume status is good. His blood pressure is good. 2- Secondary hyperparathyroidism: He is on calcitriol with good PTH level. I will see him in about 4 months for follow-up. Chief Complaint Pt's f/u PT in office for their 6 month f.u History of Present Illness The patient is being seen for a routine clinic follow-up of chronic kidney disease. This is classified as stage 3. Recently, the disease has been stable. Disease complications: hyperparathyroidism, but no hyperkalemia, no hypocalcemia, no hyperphosphatemia, no metabolic acidosis, no coagulopathy, no uremic encephalopathy, no neuropathy and no renal osteodystrophy. The patient is currently asymptomatic. No associated symptoms are reported. Review of Systems The patient does not have any dizziness or lightheadedness. No chills and no fever. No headaches. No nausea and no vomiting. No chest pain. No chest tightness. No abdominal pain. No diarrhea and no constipation. The patient denies any hematemesis or hemoptysis. No hematuria. No rectal bleeding. No melena. No epistaxis. The patient denies any urinary symptoms. No frequency, no hesitancy, and no urgency. No flank pain. The patient denies any leg edema. No leg pain. The patient denies any feeling of weakness. No itching. Overall, the rest of the review of systems is also negative. 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) Stem cell transplant candidate (V49.83) (Z76.82) Thrombocytopenia (287.5) (D69.6) Past Medical History History of Bilateral dry eyes (375.15) (H04.123) History of Dry eye syndrome (375.15) (H04.129) 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) History of B-cell lymphoma (V10.79) (Z85.72) History of hypertension (V12.59) (Z86.79) History of kidney disease (V13.09) (Z87.448) 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) Resolved Date: 28 Jun 2016 Surgical History History of Plantar fasciotomy Family History Family history of Alzheimer's disease (V17.2) (Z82.0) Family history of asthma (V17.5) (Z82.5) Family history of eczema (V19.4) (Z84.0) Family history of malignant neoplasm (V16.9) (Z80.9) Family history of Seasonal allergies Family history of asthma (V17.5) (Z82.5) Family history of eczema (V19.4) (Z84.0) Family history of malignant neoplasm of prostate (V16.42) (Z80.42) Family history of Seasonal allergies Family history of malignant neoplasm (V16.9) (Z80.9) Family history of malignant neoplasm (V16.9) (Z80.9) Family history of multiple myeloma (V16.7) (Z80.7) Family history of glaucoma (V19.11) (Z83.511) Social History Alcohol use (V49.89) (Z78.9) Caffeine use (V49.89) (Z78.9) Currently working Lives with family Never a smoker No illicit drug use Allergies Bactrim DS TABS Recorded By: Komal Jack; 12/17/2017 2:50:40 PM Compazine Recorded By: Komal Jack; 12/17/2017 2:53:15 PM dapsone Recorded By: Marcy Rene; 03/08/2019 2:38:38 PM voriconazole Recorded By: Soo Denton; 10/01/2021 9:50:46 AM No Known Environmental Allergies Recorded By: Samantha Kay; 02/09/2016 8:35:31 AM No Known Food Allergies Recorded By: Samantha Kay; 02/09/2016 8:35:31 AM Current Meds Medication NameInstruction Albuterol Sulfate 0.63 MG/3ML Inhalation Nebulization SolutionUSE 1 UNIT DOSE IN NEBULIZER EVERY 4 TO 6 HOURS NEEDED. amLODIPine Besylate 5 MG Oral TabletTAKE 1 TABLET DAILY DIRECTED. Benadryl Allergy 25 MG Oral Tablettake 20 minutes prior to infusion Calcitriol 0.25 MCG Oral CapsuleTAKE 2 CAPSULES OVER THE WEEKENDS (more content not included)... [facility] L ----- Specimen: [id number] Received: 06/13/22 Status: LUIZ Galvan Num: [id number] Spec Type: Surgical Subm Dr: Victor Hugo Farrell MD Tissues: A Colon - Polyp (POLYP) B Colon - Polyp (POLYP #2) Procedures: HE Stain/6, Gross/Micro L4/2 Age/ Patient Sex Location Account Attending Physician Katerina Danielle 61[id number] Victor Hugo Farrell MD SPEC NUM: [id number] RECD: 06/13/22 STATUS: LUIZ REHao NUM: [id number] FADI: 06/13/[address] [facility] [address]: Victor Hugo Farrell MD ENTERED: 06/13/228357 [facility] DR: SPEC TYPE: Surgical DEPT: S ORDERED: HE Stain/6, Gross/Micro L4/2 ORDERED: HE Stain/6, Gross/Micro L4/2 Pathological Diagnosis A. Polyp number one, polypectomy: - Tubular adenoma. B. Polyp number two, polypectomy: - Tubular adenoma. Clinical Information Screening Gross Description A. Received in formalin labeled with the patient's name, number and polyp are fragments of wallis mucosa tissue measuring 0.3 x 0.2 x 0.2 cm. Entirely submitted in one cassette labeled A1. B. Received in formalin labeled with the patient's name, number and polyp number two is a wallis mucosa tissue measuring 0.3 x 0.2 x 0.2 cm. Entirely submitted in one cassette labeled B1. Specimen: [id number] Received: 06/13/22 Status: LUIZ Galvan Num: [id number] Spec Type: Surgical Subm Dr: Victor Hugo Farrell MD Tissues: A Colon - Polyp (POLYP) B Colon - Polyp (POLYP #2) Procedures: HE Stain/6, Gross/Micro L4/2 Patient: Katerina Danielle [id number] (Continued) Specimen: [id number] Received: 06/13/22 (Continued) Signed (signature on file) Yuri Trinidad MD 06/14/22 0843 Specimen: [id number] Received: 06/13/22 Status: LUIZ Galvan Num: [id number] Spec Type: Surgical Subm Dr: Victor Hugo Farrell MD Tissues: A Colon - Polyp (POLYP) B Colon - Polyp (POLYP #2) Procedures: HE Stain/6, Gross/Micro L4/2 Patient: LolisKaterina [id number] (Continued) Specimen: [id number] Received: 06/13/22 (Continued) Microscopic Description A. Two glass slides with H E stained material have been examined. The microscopic findings support the above pathologic diagnosis. B. Two glass slides with H E stained material have been examined. The microscopic findings support the above pathologic diagnosis. CPT Codes 57381?2 Specimen: [id number] Received: 06/13/22 Status: LUIZ Galvan Num: [id number] Spec Type: Surgical Subm Dr: Victor Hugo Farrell MD Tissues: A Colon - Polyp (POLYP) B Colon - Polyp (POLYP #2) Procedures: CHELA Stain/6, Gross/Micro L4/2 Patient: LolisKaterina [id number] (Continued) Signed (signature on file) Yuri Trinidad MD 06/14/22 0843 [facility] COVID-19 Antigenon 2 COVID-19 Antigen Healthcare Worker?: N Reference Range: Negative Negative results, from patients with symptom onset beyond five days, should be treated as presumptive and confirmation with a molecular assay, if necessary, for patient management, may be performed. Negative results do not rule out COVID-19 and should not be used as the sole basis for treatment or patient management decisions, including infection control decisions. Negative results should be considered in the context of a patient's recent exposures, history and the presence of clinical signs and symptoms consistent with COVID-19. The Crystal SARS Antigen JOE does not differentiate between SARS-CoV and SARS-CoV-2. This test was developed and its performance characteristic determined by [employer] and validated at [facility]. This test has not been FDA cleared or approved. This test has been authorized by FDA under an Emergency Use Authorization (EUA). This test has been validated in accordance with the FDA's Guidance Document (Policy for Diagnostics Testing in Laboratories Certified to Perform High Complexity Testing under CLIA prior to Emergency Use Authorization for Coronavirus Disease-2019 during the Public Health Emergency) issued on December 02, 2019. This test is only authorized for the duration of time the declaration that circumstances exist justifying the authorization of the emergency use of in vitro diagnostic tests for detection of SARS-CoV-2 virus and/or diagnosis of COVID-19 infection under section 564(b)(1) of the Act, 21 U.S.C. 360bbb-3(b)(1), unless the authorization is terminated or revoked sooner. SARS-CoV+SARS-CoV-2 (COVID-19) Ag [Presence] in Respiratory specimen by Rapid immunoassay Negative for SARS Antigen by JOE PERFORMED BY: [place] [address] PATHOLOGIST HUMAN RESOURCES ANALYST BRIAN BALL M.D. [facility] Comment on above: Performed By: #### S RICKIE, COVID-19 CRYSTAL #### [address] COVID-19 SOFIAOrdered By: Tod Farrell on 06-11-2022 SARS-CoV+SARS-CoV-2 (COVID-19) Ag IA.rapid Ql (Resp) Negative Negative [facility] Comment on above: This is a duplicate Crystal SARS Antigen (JOE) result to be used for statistical tracking purpose only. No Panel InformationOrdered By: Victor Hugo Farrell on 06-11-2022 SARS Antigen (LFIA) [facility] Crystal Ag Negativeon 06-11-20 22 Crystal Ag Negative Negative Normal Negative [facility] Comment on above: Result Comment: This is a duplicate Crystal SARS Antigen (JOE) result to be used for statistical tracking purpose only. PERFORMED BY: [facility] [address] [place] [address] PATHOLOGIST HUMAN RESOURCES ANALYST BRIAN BALL M.D. Performed By: #### S OFIANEG, COVID-19 CRYSTAL #### [facility] [address] ECHOCARDIO M/2D COMPLETEon 0 04-01-2022 ECHOCARDIO M/2D COMPLETE Patient: KATERINA DANIELLE Exam Date: 04/01/2022 : 1960 Gender:M Ordering : DR NAEL FARIAS . Admission #: [id number] Family : Order #: [id number] CLICK HERE TO VIEW EXAM ECHOCARDIOGRAM REPORT PROCEDURE: CARDIO PULMONARY ECHOCARDIO M/2D COMP INDICATIONS: B-cell lymphona (chemo and radiation), edema, chronic kidney disease, hypertension COMPARISON: None. DESCRIPTION: COMPLETE ECHOCARDIOGRAM Real-time transthoracic echocardiography with 2D, M-mode, spectral and color flow Doppler performed. QUALITY: Technical quality was good. 72 260# BP 152/80 HR 75 LEFT VENTRICLE: Normal chamber size. Normal left ventricular wall thickness. Normal global left ventricular systolic function by standard measures. Longitudinal strain measurements were performed and are as follows: Four-chamber -14.2%, 2 chamber -8.1%, 3 chamber -12.7%. Global longitudinal strain is -11.7%. LV EF: Normal left ventricular ejection fraction, (55%). DIASTOLIC: Normal diastolic function. ATRIAL SEPTUM: Visually appears intact. LEFT ATRIUM: Normal chamber size. RIGHT ATRIUM: Normal chamber size. RIGHT VENTRICLE: Normal chamber size. Normal right ventricular systolic function. TRICUSPID VALVE: Normal mobility and thickness. No stenosis with mild regurgitation. Doppler velocities are consistent with mildly elevated right-sided pressures. RVSP is 40 mmHg MITRAL VALVE: Normal mobility and thickness. No evidence of mitral valve stenosis. There is no mitral annular calcification. Trivial mitral regurgitation. AORTIC VALVE: Normal trileaflet appearance. No visible sclerosis. Normal leaflet mobility. No evidence of aortic valve stenosis. No aortic regurgitation. AORTIC ROOT: Normal diameter and appearance. Ascending aorta is normal in size. PULMONIC VALVE: Normal thickness and mobility. No stenosis. No regurgitation. PERICARDIUM: IVC: Not well visualized. PLEURA: CONCLUSION: 1. Ventricular systolic function is normal. LVEF is 55%. 2. Normal diastolic function. 3. No significant valvular dysfunction. 4. Mildly elevated right-sided pressures. 5. No pericardial effusion. 6. Reduced global longitudinal strain [-11.17%]. The pattern of reduced strain is patchy throughout the myocardium. This is indicative of subclinical systolic dysfunction. Dictated by: Spencer Perkins M.D. on 04/02/2022 at 18:28 Approved by: Spencer Perkins M.D. on 04/02/2022 at 18:37 Normal [facility] LACTATE DEHYDROGENASE (LD) I SOENZYMESon 02-23-2022 LD FRACTION 1 16 % Critically low 17-32 The [facility] Comment on above: Result Comment: Perf ormed at: BN Performed By: #### L DISO #### [facility] [address] [address] [address] Ladan Mcdonald LD FRACTION 2 33 % Normal 25-40 [facility] Comment on above: Result Comment: Perf ormed at: BN Performed By: #### L DISO #### [facility] [address] [address] [address] Ladan Mcdonald LD FRACTION 3 23 % Normal 17-27 The [facility] Comment on above: Result Comment: Perf ormed at: BN Performed By: #### L DISO #### [facility] [address] [address] [address] Ladan Mcdonald LD FRACTION 4 13 % Normal 5-13 [facility] Comment on above: Result Comment: Perf ormed at: BN Performed By: #### L DISO #### [facility] [address] [address] [address] Ladan Mcdonald LD FRACTION 5 15 % Normal 4-20 [facility] Comment on above: Result Comment: Perf ormed at: BN Performed By: #### L DISO #### [facility] [address] [place], [place] [address] Dr. Ladan Mcdonald LDH 245 IU/L Critically high 121-224 [facility] Comment on above: Result Comment: Perf ormed at: CB Performed By: #### L DISO #### [facility] [address] [place], [place] [address] Dr. Ladan Mcdonald CBC AND DIFFERENTIALon 02-21 % AUTOMATED IMMATURE GRAN Canceled Normal [facility] Comment on above: Order Comment: TEST CBC AND DIFFERENTIAL WAS CANCELLED, 02/21/2022 14:13 Cancelled per Zofia. Result Comment: Caryn ture Granulocyte Count (IG) includes promyelocytes, myelocytes and metamyelocytes but does not include bands. Percent differential counts (%) should be interpreted in the context of the absolute cell counts (cells/L). Performed By: #### C BCDF #### [address] [place] [address] % BASOPHIL Canceled Normal [facility] Comment on above: Order Comment: TEST CBC AND DIFFERENTIAL WAS CANCELLED, 02/21/2022 14:13 Cancelled per Zofia. Performed By: #### C BCDF #### [address] [place] [address] % EOSINOPHIL Canceled Normal [facility] Comment on above: Order Comment: TEST CBC AND DIFFERENTIAL WAS CANCELLED, 02/21/2022 14:13 Cancelled per Zofia. Performed By: #### C BCDF #### [address] [place] [address] % LYMPHOCYTE Canceled Normal [facility] Comment on above: Order Comment: TEST CBC AND DIFFERENTIAL WAS CANCELLED, 02/21/2022 14:13 Cancelled per Zofia. Performed By: #### C BCDF #### [address] [place] [address] % MONOCYTE Canceled Normal [facility] Comment on above: Order Comment: TEST CBC AND DIFFERENTIAL WAS CANCELLED, 02/21/2022 14:13 Cancelled per Zofia. Performed By: #### C BCDF #### [address] [place] [address] % NEUTROPHIL Canceled Normal [facility] Comment on above: Order Comment: TEST CBC AND DIFFERENTIAL WAS CANCELLED, 02/21/2022 14:13 Cancelled per Zofia. Performed By: #### C BCDF #### [address] [place] [address] BASOPHIL Canceled [facility] Comment on above: Order Comment: TEST CBC AND DIFFERENTIAL WAS CANCELLED, 02/21/2022 14:13 Cancelled per Zofia. Performed By: #### C BCDF #### [address] [place] [address] DIFFERENTIAL Canceled [facility] Comment on above: Order Comment: TEST CBC AND DIFFERENTIAL WAS CANCELLED, 02/21/2022 14:13 Cancelled per Zofia. Performed By: #### C BCDF #### [address] [place] [address] EOSINOPHIL Canceled [facility] Comment on above: Order Comment: TEST CBC AND DIFFERENTIAL WAS CANCELLED, 02/21/2022 14:13 Cancelled per Zofia. Performed By: #### C BCDF #### [address] [place] [address] HCT Canceled [facility] Comment on above: Order Comment: TEST CBC AND DIFFERENTIAL WAS CANCELLED, 02/21/2022 14:13 Cancelled per Zofia. Performed By: #### C BCDF #### [address] [place] [address] HGB Canceled [facility] Comment on above: Order Comment: TEST CBC AND DIFFERENTIAL WAS CANCELLED, 02/21/2022 14:13 Cancelled per Zofia. Performed By: #### C BCDF #### [address] [place] [address] LYMPHOCYTE Canceled [facility] Comment on above: Order Comment: TEST CBC AND DIFFERENTIAL WAS CANCELLED, 02/21/2022 14:13 Cancelled per Zofia. Performed By: #### C BCDF #### [address] [place] [address] [facility] Comment on above: Order Comment: TEST CBC AND DIFFERENTIAL WAS CANCELLED, 02/21/2022 14:13 Cancelled per Zofia. Performed By: #### C BCDF #### [address] [place] [address] MCV Canceled [facility] Comment on above: Order Comment: TEST CBC AND DIFFERENTIAL WAS CANCELLED, 02/21/2022 14:13 Cancelled per Zofia. Performed By: #### C BCDF #### [address] [place] [address] MONOCYTE Canceled [facility] Comment on above: Order Comment: TEST CBC AND DIFFERENTIAL WAS CANCELLED, 02/21/2022 14:13 Cancelled per Zofia. Performed By: #### C BCDF #### [address] [place] [address] NEUTROPHIL Canceled [facility] Comment on above: Order Comment: TEST CBC AND DIFFERENTIAL WAS CANCELLED, 02/21/2022 14:13 Cancelled per Zofia. Performed By: #### C BCDF #### [address] [place] [address] PLT Canceled [facility] Comment on above: Order Comment: TEST CBC AND DIFFERENTIAL WAS CANCELLED, 02/21/2022 14:13 Cancelled per Zofia. Performed By: #### C BCDF #### [address] [place] [address] RBC Canceled [facility] Comment on above: Order Comment: TEST CBC AND DIFFERENTIAL WAS CANCELLED, 02/21/2022 14:13 Cancelled per Zofia. Performed By: #### C BCDF #### [address] [place] [address] RDW-CV Canceled [facility] Comment on above: Order Comment: TEST CBC AND DIFFERENTIAL WAS CANCELLED, 02/21/2022 14:13 Cancelled per Zofia. Performed By: #### C BCDF #### [address] [place] [address] WBC Canceled [facility] Comment on above: Order Comment: TEST CBC AND DIFFERENTIAL WAS CANCELLED, 02/21/2022 14:13 Cancelled per Zofia. Performed By: #### C BCDF #### [address] [place] [address] COMPREHENSIVE PANELon 2021 ALBUMIN Canceled Normal [facility] Comment on above: Order Comment: TEST COMPREHENSIVE PANEL WAS CANCELLED, 02/21/2022 14:13 Cancelled per Zofia. Performed By: #### C MP #### [address] [place] [address] ALKALINE PHOSPHATASE Canceled Normal [facility] Comment on above: Order Comment: TEST COMPREHENSIVE PANEL WAS CANCELLED, 02/21/2022 14:13 Cancelled per Zofia. Performed By: #### C MP #### [address] [place] [address] ALT Canceled [facility] Comment on above: Order Comment: TEST COMPREHENSIVE PANEL WAS CANCELLED, 02/21/2022 14:13 Cancelled per Zofia. Result Comment: Yisel ents treated with Sulfasalazine may generate falsely decreased results for ALT. Performed By: #### C MP #### [address] [place] [address] ANION GAP Canceled [facility] Comment on above: Order Comment: TEST COMPREHENSIVE PANEL WAS CANCELLED, 02/21/2022 14:13 Cancelled per Zofia. Performed By: #### C MP #### [address] [place] [address] AST Canceled [facility] Comment on above: Order Comment: TEST COMPREHENSIVE PANEL WAS CANCELLED, 02/21/2022 14:13 Cancelled per Zofia. Performed By: #### C MP #### [address] [place] [address] BICARBONATE Canceled Normal [facility] Comment on above: Order Comment: TEST COMPREHENSIVE PANEL WAS CANCELLED, 02/21/2022 14:13 Cancelled per Zofia. Performed By: #### C MP #### [address] [place] [address] BILIRUBIN,TOTAL Canceled Normal [facility] Comment on above: Order Comment: TEST COMPREHENSIVE PANEL WAS CANCELLED, 02/21/2022 14:13 Cancelled per Zofia. Performed By: #### C MP #### [address] [place] [address] CALCIUM Canceled [facility] Comment on above: Order Comment: TEST COMPREHENSIVE PANEL WAS CANCELLED, 02/21/2022 14:13 Cancelled per Zofia. Performed By: #### C MP #### [address] [place] [address] CHLORIDE Canceled [facility] Comment on above: Order Comment: TEST COMPREHENSIVE PANEL WAS CANCELLED, 02/21/2022 14:13 Cancelled per Zofia. Performed By: #### C MP #### [address] [place] [address] CREATININE Canceled [facility] Comment on above: Order Comment: TEST COMPREHENSIVE PANEL WAS CANCELLED, 02/21/2022 14:13 Cancelled per Zofia. Performed By: #### C MP #### [address] [place] [address] eGFR FEMALE Canceled [facility] Comment on above: Order Comment: TEST COMPREHENSIVE PANEL WAS CANCELLED, 02/21/2022 14:13 Cancelled per Zofia. Result Comment: CALC ULATIONS OF ESTIMATED GFR ARE PERFORMED USING THE 2020 CKD-EPI STUDY REFIT EQUATION WITHOUT THE RACE VARIABLE FOR THE IDMS-TRACEABLE CREATININE METHODS. https://jasn.asnjournals.org/content/early//ASN.868748 2480 Performed By: #### C MP #### [address] [place] [address] eGFR MALE Canceled [facility] Comment on above: Order Comment: TEST COMPREHENSIVE PANEL WAS CANCELLED, 02/21/2022 14:13 Cancelled per Zofia. Result Comment: CALC ULATIONS OF ESTIMATED GFR ARE PERFORMED USING THE 2020 CKD-EPI STUDY REFIT EQUATION WITHOUT THE RACE VARIABLE FOR THE IDMS-TRACEABLE CREATININE METHODS. https://jasn.asnjournals.org/content/early//ASN.261152 9180 Performed By: #### C MP #### [address] [place] [address] GLUCOSE Canceled [facility] Comment on above: Order Comment: TEST COMPREHENSIVE PANEL WAS CANCELLED, 02/21/2022 14:13 Cancelled per Zofia. Performed By: #### C MP #### [address] [place] [address] POTASSIUM Canceled [facility] Comment on above: Order Comment: TEST COMPREHENSIVE PANEL WAS CANCELLED, 02/21/2022 14:13 Cancelled per Zofia. Performed By: #### C MP #### [address] [place] [address] SODIUM Canceled [facility] Comment on above: Order Comment: TEST COMPREHENSIVE PANEL WAS CANCELLED, 02/21/2022 14:13 Cancelled per Zofia. Performed By: #### C MP #### [address] [place] [address] TOTAL PROTEIN Canceled [facility] Comment on above: Order Comment: TEST COMPREHENSIVE PANEL WAS CANCELLED, 02/21/2022 14:13 Cancelled per Zofia. Performed By: #### C MP #### [address] [place] [address] UREA NITROGEN Canceled [facility] Comment on above: Order Comment: TEST COMPREHENSIVE PANEL WAS CANCELLED, 02/21/2022 14:13 Cancelled per Zofia. Performed By: #### C MP #### [address] [place] [address] LDHon 02-21-2022 LDH Canceled Normal [facility] Comment on above: Order Comment: TEST LDH WAS CANCELLED, 02/21/2022 14:13 Cancelled per Zofia. Performed By: #### L #### [facility] [address] [address] [place] [address] CBC AUTO DIFFon 02-20-2022 BASO # 0.0 103/ul Normal 0.0-0.1 [facility] Comment on above: Performed By: #### C BC #### [facility] [address] [address] [address] Ladan Mcdonald Basophils/100 WBC (Bld) 0.6 % Normal 0.2-2.0 [facility] Comment on above: Performed By: #### C BC #### [facility] [address] [place] [address] Dr. Ladan Mcdonald EO # 0.1 103/ul Normal 0.0-0.7 [facility] Comment on above: Performed By: #### C BC #### [facility] [address] [place] [address] Dr. Ladan Mcdonald Eosinophils/100 WBC (Bld) 2.0 % Normal 0.9-7.0 [facility] Comment on above: Performed By: #### C BC #### [facility] [address] [place] [address] Dr. Ladan Mcdonald Erythrocyte distribution width (RBC) [Ratio] 15.4 % Critically high 11.0-15.0 [facility] Comment on above: Performed By: #### C BC #### [facility] [address] [place] [address] Dr. Ladan Mcdonald Hematocrit (Bld) [Volume fraction] 44.7 % Normal 42.0-54.0 [facility] Comment on above: Performed By: #### C BC #### [facility] [address] [place] [address] Dr. Ladan Mcdonald Hemoglobin (Bld) [Mass/Vol] 14.3 g/dL Normal 14.0-18.0 [facility] Comment on above: Performed By: #### C BC #### [facility] [address] [place] [address] Dr. Ladan Mcdonald IG # 0.02 10e3/ul Normal 0.00-0.03 [facility] Comment on above: Performed By: #### C BC #### [facility] [address] [place] [address] Dr. Ladan Mcdonald IG % 0.6 % Critically high 0.0-0.5 [facility] Comment on above: Performed By: #### C BC #### [facility] [address] [place] [address] Dr. Ladan Mcdonald LYMPH # 0.9 103/ul Critically low 1.2-3.8 [facility] Comment on above: Performed By: #### C BC #### [facility] [address] [place] [address] Dr. Ladan Mcdonald Lymphocytes/100 WBC (Bld) 26.6 % Normal 20.5-60.0 [facility] Comment on above: Performed By: #### C BC #### [facility] [address] [place] [address] Dr. Ladan Mcdonald MANUAL DIFF REQ NO Normal [facility] Comment on above: Performed By: #### C BC #### [facility] [address] [place] [address] Dr. Ladan Mcdonald MCH (RBC) [Entitic mass] 26.2 pg Normal 25.9-34.0 [facility] Comment on above: Performed By: #### C BC #### [facility] [address] [place] [address] Dr. Ladan Mcdonald MCHC (RBC) [Mass/Vol] 32.0 g/dL Normal 29.9-35.2 [facility] Comment on above: Performed By: #### C BC #### [facility] [address] [place] [address] Dr. Ladan Mcdonald MCV (RBC) [Entitic vol] 82.0 fL Normal 80.0-94.0 [facility] Comment on above: Performed By: #### C BC #### [facility] [address] [address] [address] Ladan Mcdonald MONO # 0.3 103/ul Normal 0.3-0.8 [facility] Comment on above: Performed By: #### C BC #### [facility] [address] [address] [address] Ladan Mcdonald Monocytes/100 WBC (Bld) 8.9 % Normal 1.7-12.0 [facility] Comment on above: Performed By: #### C BC #### [facility] [address] [place] [address] Dr. Ladan Mcdonald NEUT # 2.2 103/ul Normal 1.4-6.5 [facility] Comment on above: Performed By: #### C BC #### [facility] [address] [place] [address] Dr. Ladan Mcdonald Neutrophils/100 WBC (Bld) 61.3 % Normal 43.0-75.0 [facility] Comment on above: Performed By: #### C BC #### [facility] [address] [place] [address] Dr. Ladan Mcdonald Platelet mean volume (Bld) [Entitic vol] 9.7 fL Normal 9.5-13.5 [facility] Comment on above: Performed By: #### C BC #### [facility] [address] [place] [address] Dr. Ladan Mcdonald PLT 115 103/ul Critically low 150-450 [facility] Comment on above: Performed By: #### C BC #### [facility] [address] [place] [address] Dr. Ladan Mcdonald RBC 5.45 106/ul Normal 4.70-6.10 [facility] Comment on above: Performed By: #### C BC #### [facility] [address] [place] [address] Dr. Ladan Mcdonald WBC 3.5 103/ul Critically low 4.0-11.0 [facility] Comment on above: Performed By: #### C BC #### [facility] [address] [place] [address] Dr. Ladan Mcdonald PROF 14(COMP METB)on 022 Albumin [Mass/Vol] 3.7 g/dL Normal 3.4-5.0 [facility] Comment on above: Performed By: #### M G, LDH, CMP #### [facility] [address] [address] [address] Ladan Mcdonald Albumin/Globulin [Mass ratio] 1.1 {ratio} Normal [facility] Comment on above: Performed By: #### M G, LDH, CMP #### [facility] [address] [address] [address] Ladan Mcdonald ALP [Catalytic activity/Vol] 121 U/L Critically high 46-116 [facility] Comment on above: Performed By: #### M G, LDH, CMP #### [facility] [address] [address] [address] Ladan Mcdonald ALT [Catalytic activity/Vol] 55 U/L Normal 16-63 [facility] Comment on above: Performed By: #### M G, LDH, CMP #### [facility] [address] [address] [address] Ladan Mcdonald Anion gap [Moles/Vol] 11.7 mmol/L Normal [facility] Comment on above: Performed By: #### M G, LDH, CMP #### [facility] [address] [address] [address] Ladan Mcdonald AST [Catalytic activity/Vol] 40 U/L Critically high 15-37 [facility] Comment on above: Performed By: #### M G, LDH, CMP #### [facility] [address] [address] [address] Ladan Mcdonald Bilirubin [Mass/Vol] 0.5 mg/dL Normal 0.2-1.0 [facility] Comment on above: Performed By: #### M G, LDH, CMP #### [facility] [address] [address] [address] Ladan Mcdonald Calcium [Mass/Vol] 9.2 mg/dL Normal 8.5-10.1 [facility] Comment on above: Performed By: #### M G, LDH, CMP #### [facility] [address] [address] [address] Ladan Mcdonald Chloride [Moles/Vol] 107 mmol/L Normal 98-107 [facility] Comment on above: Performed By: #### M G, LDH, CMP #### [facility] [address] [place] [address] Dr. Ladan Mcdonald CO2 [Moles/Vol] 28.3 mmol/L Normal 21.0-32.0 [facility] Comment on above: Performed By: #### M G, LDH, CMP #### [facility] [address] [place] [address] Dr. Ladan Mcdonald Creatinine [Mass/Vol] 1.97 mg/dL Critically high 0.70-1.30 [facility] Comment on above: Performed By: #### M G, LDH, CMP #### [facility] [address] [place] [address] Dr. Ladan Mcdonald EGFR-AF COMORAN 42 mL/min/1.73m2 Critically low >=60 [facility] Comment on above: Performed By: #### M G, LDH, CMP #### [facility] [address] [place] [address] Dr. Ladan Mcdonald EGFR-NON AF COMORAN 35 mL/min/1.73m2 Critically low >=60 [facility] Comment on above: Performed By: #### M G, LDH, CMP #### [facility] [address] [place] [address] Dr. Ladan Mcdonald Globulin (S) [Mass/Vol] 3.5 g/dL Normal [facility] Comment on above: Performed By: #### M G, LDH, CMP #### [facility] [address] [place] [address] Dr. Ladan Mcdonald Glucose [Mass/Vol] 114 mg/dL Critically high 74-106 [facility] Comment on above: Performed By: #### M G, LDH, CMP #### [facility] [address] [place] [address] Dr. Ladan Mcdonald Potassium [Moles/Vol] 4.0 mmol/L Normal 3.5-5.1 [facility] Comment on above: Performed By: #### M G, LDH, CMP #### [facility] [address] [address] [address] Ladan Mcdonald Protein [Mass/Vol] 7.2 g/dL Normal 6.4-8.2 [facility] Comment on above: Performed By: #### M G, LDH, CMP #### [facility] [address] [address] [address] Ladan Mcdonald Sodium [Moles/Vol] 143 mmol/L Normal 136-145 [facility] Comment on above: Performed By: #### M G, LDH, CMP #### [facility] [address] [place] [address] Dr. Ladan Mcdonald Urea nitrogen [Mass/Vol] 26.0 mg/dL Critically high 7.0-18.0 [facility] Comment on above: Performed By: #### M G, LDH, CMP #### [facility] [address] [place] [address] Dr. Ladan Mcdonald Urea nitrogen/Creatinine [Mass ratio] 13.2 mg/mg Normal [facility] Comment on above: Performed By: #### M G, LDH, CMP #### [facility] [address] [place] [address] Dr. Ladan Mcdonald CBC AND DIFFERENTIALon 11-14 % AUTOMATED IMMATURE GRAN 1.2 % High 0.0 - 0.9 [facility] Comment on above: Result Comment: Caryn ture Granulocyte Count (IG) includes promyelocytes, myelocytes and metamyelocytes but does not include bands. Percent differential counts (%) should be interpreted in the context of the absolute cell counts (cells/L). Performed By: #### C BCDF #### [facility] [id number] [place] [address] Basophils (Bld) [#/Vol] 0.01 10*3/uL Normal 0.00 - 0.10 [facility] Comment on above: Performed By: #### C BCDF #### [id number] [place] [address] Basophils/100 WBC (Bld) 0.2 % Normal 0.0 - 2.0 [facility] Comment on above: Performed By: #### C BCDF #### [address] [address] Eosinophils (Bld) [#/Vol] 0.04 10*3/uL Normal 0.00 - 0.70 [facility] Comment on above: Performed By: #### C BCDF #### [address] [address] Eosinophils/100 WBC (Bld) 1.0 % Normal 0.0 - 6.0 [facility] Comment on above: Performed By: #### C BCDF #### [address] [address] Erythrocyte distribution width (RBC) [Ratio] 15.0 % High 11.5 - 14.5 [facility] Comment on above: Performed By: #### C BCDF #### [address] [address] Hematocrit (Bld) [Volume fraction] 48.2 % Normal 41.0 - 52.0 [facility] Comment on above: Performed By: #### C BCDF #### [address] [address] Hemoglobin (Bld) [Mass/Vol] 14.9 g/dL Normal 13.5 - 17.5 [facility] Comment on above: Performed By: #### C BCDF #### [address] [address] Lymphocytes (Bld) [#/Vol] 1.26 10*3/uL Normal 1.20 - 4.80 [facility] Comment on above: Performed By: #### C BCDF #### [address] [address] Lymphocytes/100 WBC (Bld) 30.2 % Normal 13.0 - 44.0 [facility] Comment on above: Performed By: #### C BCDF #### [address] [address] MCHC (RBC) [Mass/Vol] 30.9 g/dL Low 32.0 - 36.0 [facility] Comment on above: Performed By: #### C BCDF #### [address] [address] MCV (RBC) [Entitic vol] 84 fL Normal 80 - 100 [facility] Comment on above: Performed By: #### C BCDF #### [address] [address] Monocytes (Bld) [#/Vol] 0.36 10*3/uL Normal 0.10 - 1.00 [facility] Comment on above: Performed By: #### C BCDF #### [address] [address] Monocytes/100 WBC (Bld) 8.6 % Normal 2.0 - 10.0 [facility] Comment on above: Performed By: #### C BCDF #### [address] [address] Neutrophils (Bld) [#/Vol] 2.45 10*3/uL Normal 1.20 - 7.70 [facility] Comment on above: Performed By: #### C BCDF #### [address] [address] Neutrophils/100 WBC (Bld) 58.8 % Normal 40.0 - 80.0 [facility] Comment on above: Performed By: #### C BCDF #### [address] [address] NUCLEATED RBC 0.0 /100 WBC Normal 0.0 - 0.0 [facility] Comment on above: Performed By: #### C BCDF #### [address] [address] Platelets (Bld) [#/Vol] 138 10*3/uL Low 150 - 450 [facility] Comment on above: Performed By: #### C BCDF #### [address] [address] RBC 5.71 x10E12/L Normal 4.50 - 5.90 [facility] Comment on above: Performed By: #### C BCDF #### [address] [address] WBC (Bld) [#/Vol] 4.2 10*3/uL Low 4.4 - 11.3 [facility] Comment on above: Performed By: #### C BCDF #### [address] [address] COMPREHENSIVE PANELon 2021 Albumin [Mass/Vol] 4.3 g/dL Normal 3.4 - 5.0 [facility] Comment on above: Performed By: #### C MP #### [address] [address] ALP [Catalytic activity/Vol] 89 U/L Normal 33 - 136 [facility] Comment on above: Performed By: #### C MP #### [address] [address] ALT [Catalytic activity/Vol] 43 U/L Normal 10 - 52 [facility] Comment on above: Result Comment: Yisel ents treated with Sulfasalazine may generate falsely decreased results for ALT. Performed By: #### C MP #### [address] [address] Anion gap [Moles/Vol] 11 mmol/L Normal 10 - 20 [facility] Comment on above: Performed By: #### C MP #### [address] [address] AST [Catalytic activity/Vol] 31 U/L Normal 9 - 39 [facility] Comment on above: Performed By: #### C MP #### [address] [address] Bilirubin [Mass/Vol] 0.7 mg/dL Normal 0.0 - 1.2 [facility] Comment on above: Performed By: #### C MP #### [address] [address] Calcium [Mass/Vol] 9.5 mg/dL Normal 8.6 - 10.3 [facility] Comment on above: Performed By: #### C MP #### [address] [address] Chloride [Moles/Vol] 105 mmol/L Normal 98 - 107 [facility] Comment on above: Performed By: #### C MP #### [address] [place] [address] Creatinine [Mass/Vol] 1.76 mg/dL High 0.50 - 1.30 [facility] Comment on above: Performed By: #### C MP #### [address] [address] GFR/1.73 sq M.predicted among non-blacks MDRD (S/P/Bld) [Vol rate/Area] 43 mL/min/{1.73_m2} Abnormal >90 [facility] Comment on above: Result Comment: CALC ULATIONS OF ESTIMATED GFR ARE PERFORMED USING THE 2020 CKD-EPI STUDY REFIT EQUATION WITHOUT THE RACE VARIABLE FOR THE IDMS-TRACEABLE CREATININE METHODS. https://jasn.asnjournals.org/content/early/ASN.734992 2375 Performed By: #### C MP #### [address] [address] Glucose [Mass/Vol] 117 mg/dL High 74 - 99 [facility] Comment on above: Performed By: #### C MP #### [address] [place] [address] HCO3 (Bld) [Moles/Vol] 27 mmol/L Normal 21 - 32 [facility] Comment on above: Performed By: #### C MP #### [address] [address] Potassium [Moles/Vol] 4.3 mmol/L Normal 3.5 - 5.3 [facility] Comment on above: Performed By: #### C MP #### [address] [address] Protein [Mass/Vol] 7.0 g/dL Normal 6.4 - 8.2 [facility] Comment on above: Performed By: #### C MP #### [facility] [address] [place] [address] Sodium [Moles/Vol] 139 mmol/L Normal 136 - 145 [facility] Comment on above: Performed By: #### C MP #### [facility] [address] [place] [address] Urea nitrogen [Mass/Vol] 23 mg/dL Normal 6 - 23 [facility] Comment on above: Performed By: #### C MP #### [address] 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 COMPARISON: CT chest 06/13/2020; CT abdomen pelvis dated 01/02/2019 ACCESSION NUMBER(S): [id number] ORDERING CLINICIAN: ANIRUDH SEARS TECHNIQUE: CT of the chest, abdomen, and pelvis was performed following the intravenous administration 90 mL Omnipaque 350. Sagittal and coronal reconstructions were generated. FINDINGS: CHEST: LUNG/PLEURA/LARGE AIRWAYS: There is no consolidation or pleural fluid. There is basilar atelectasis. There are no suspicious lung nodules. VESSELS: Aorta, cava and main pulmonary arteries are unremarkable. HEART: Heart is normal in size. There are coronary artery calcifications MEDIASTINUM AND ENOCH: There is no significant mediastinal or hilar lymphadenopathy. CHEST WALL AND LOWER NECK: The thyroid as visualized is unremarkable. The thoracic spine is unremarkable. ABDOMEN: LIVER: Unremarkable BILE DUCTS: Unremarkable GALLBLADDER: There is suggestion of a tiny stone in a nondistended gallbladder. PANCREAS: Unremarkable SPLEEN: Unremarkable ADRENAL GLANDS: There are no adrenal masses. KIDNEYS AND URETERS: The left kidney is atrophic. There is soft tissue in the left renal pelvis. There are bilateral tiny nonobstructing calculi. PELVIS: BLADDER: The bladder is nearly empty. REPRODUCTIVE ORGANS: The prostate is visualized. BOWEL: There is no significant bowel distention. There is a suggestion of a normal caliber appendix. There are colonic diverticula. VESSELS: The cava is unremarkable. There are atherosclerotic changes of the aorta. PERITONEUM/RETROPERITONEU M/LYMPH NODES: There is no free air or free fluid. There is minimal residual soft tissue to the left of the aorta the level of the left kidney. BONE AND SOFT TISSUE: The bones are unremarkable. COMPARISON OF FINDINGS: There is a significant decrease in the soft tissue density left renal pelvis. The left kidney has decreased in size. Soft tissue show in the region of the spleen has resolved. IMPRESSION: CHEST: No acute intrathoracic abnormality. No change. ABDOMEN-PELVIS: Interval decrease in the size of the left kidney. Interval decrease in the soft tissue in the left renal pelvis and in the retroperitoneum. Interval resolution of the soft tissue nodule next to the spleen. Electronically signed by: FRANK GRAVES MD [facility] CT SINUS W CONTRASTon 2021 CT SINUS W CONTRAST Patient Name: KATERINA DANIELLE STUDY: CT NECK WITH CONTRAST; CT SINUS W CONTRAST; 11/14/2021 10:51 am INDICATION: HX DLBCL new sinus symptoms, same location as prior occurence 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 COMPARISON: June 2018. ACCESSION NUMBER(S): [id number]; [id number] ORDERING CLINICIAN: ANIRUDH SEARS TECHNIQUE: Following intravenous injection axial CT was performed from the orbital roof the to the thoracic inlet and multiplanar reconstructions were made. FINDINGS: * The the paranasal sinuses nasopharynx and oropharynx are unremarkable. *The major salivary glands are normal. *There is no measurable cervical lymphadenopathy. *The larynx and related cartilages are normal. *The thyroid gland is normal. *The thoracic inlet is normal. IMPRESSION: *The paranasal sinuses are normal *there is no evidence of mass, cyst or adenopathy in the neck. THIS EXAMINATION WAS INTERPRETED AT [place] Electronically signed by: DEANDRE PENG MD Normal [facility] NR CT NECK WITH CONTRASTon 0 11-14-[address] NECK WITH CONTRAST Patient Name: KATERINA DANIELLE STUDY: CT NECK WITH CONTRAST; CT SINUS W CONTRAST; 11/14/2021 10:51 am INDICATION: HX DLBCL new sinus symptoms, same location as prior occurence 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 COMPARISON: June 2018. ACCESSION NUMBER(S): [id number]; [id number] ORDERING CLINICIAN: ANIRUDH SEARS TECHNIQUE: Following intravenous injection axial CT was performed from the orbital roof the to the thoracic inlet and multiplanar reconstructions were made. FINDINGS: * The the paranasal sinuses nasopharynx and oropharynx are unremarkable. *The major salivary glands are normal. *There is no measurable cervical lymphadenopathy. *The larynx and related cartilages are normal. *The thyroid gland is normal. *The thoracic inlet is normal. IMPRESSION: *The paranasal sinuses are normal *there is no evidence of mass, cyst or adenopathy in the neck. THIS EXAMINATION WAS INTERPRETED AT [place] Electronically signed by: DEANDRE PENG MD Normal [facility] Tobacco Screening.on 022 Fall risk assessment a) [facility] falls within the last year [facility] DO Work Phone: Tobacco use status [facility] b) No [facility] DO Work Phone: Complete Blood Count + Diffe maryon 05-21-2021 Basophils/100 WBC (Bld) 0.5 % 0.0 - 2.0 [employer] 2100 DO Work Phone: Erythrocyte distribution width (RBC) [Ratio] 15.6 % above high threshold See Below Shibumi 2100 DO Work Phone: Comment on above: Reference Range: 11. 5 - 14.5 Hematocrit (Bld) [Volume fraction] 46.6 % See Below Shibumi 2100 DO Work Phone: Comment on above: Reference Range: 41. 0 - 52.0 Hemoglobin (Bld) [Mass/Vol] 14.8 g/dL See Below Shibumi 2100 DO Work Phone: Comment on above: Reference Range: 13. 5 - 17.5 Lymphocytes/100 WBC (Bld) 27.6 % See Below Shibumi 2100 DO Work Phone: Comment on above: Reference Range: 13. 0 - 44.0 MCHC (RBC) [Mass/Vol] 31.8 g/dL below low threshold See Below MP-Curtain Drier s-Solo 2100 DO Work Phone: Comment on above: Reference Range: 32. 0 - 36.0 MCV (RBC) [Entitic vol] 87 fL 80 - 100 MP-Curtain Drier s-Owen 2100 DO Work Phone: Monocytes/100 WBC (Bld) 6.7 % 2.0 - 10.0 MP-[facility]urtain Drier [facility]-Solo 2100 DO Work Phone: Neutrophils/100 WBC (Bld) 62.6 % See Below MP-Curtain Drier s-Solo 2100 DO Work Phone: Comment on above: Reference Range: 40. 0 - 80.0 Platelets (Bld) [#/Vol] 138 10*3/uL below low threshold 150 - 450 MP-Curtain Drier s-Solo 2100 DO Work Phone: RBC (Bld) [#/Vol] 5.37 {x10E12/L} See Below MP PriceBabaCurtain Drier s-Owen 2100 DO Work Phone: Comment on above: Reference Range: 4.5 0 - 5.90 WBC (Bld) [#/Vol] 4.2 10*3/uL below low threshold 4.4 - 11.3 MP-Curtain Drier s-Owen 2100 DO Work Phone: Complete Blood Count + Differential 0.02 {x10E9/L} See Below MP-Curtain Drier s-Solo 2100 DO Work Phone: Comment on above: Reference Range: 0.0 0 - 0.10 Complete Blood Count + Differential 0.08 {x10E9/L} See Below MP-Curtain Drier s-Solo 2100 DO Work Phone: Comment on above: Reference Range: 0.0 0 - 0.70 Complete Blood Count + Differential 0.28 {x10E9/L} See Below MP-Curtain Drier s-Solo 2100 DO Work Phone: Comment on above: Reference Range: 0.1 0 - 1.00 Complete Blood Count + Differential 1.15 {x10E9/L} below low threshold See Below Shibumi 2100 DO Work Phone: Comment on above: Reference Range: 1.2 0 - 4.80 Complete Blood Count + Differential 2.60 {x10E9/L} See Below [employer]la[employer] DFM DO Work Phone: Comment on above: Reference Range: 1.2 0 - 7.70 Complete Blood Count + Differential 1.9 % 0.0 - 6.0 AkampuslaBlaze DFM DO Work Phone: Complete Blood Count + Differential 0.7 % 0.0 - 0.9 [employer]la[employer]aze DFM DO Work Phone: Comment on above: Immature Granulocyte Count (IG) includes promyelocytes, myelocytes and metamyelocytes but does not include bands. Percent differential counts (%) should be interpreted in the context of the absolute cell counts (cells/L). Immunoglobulin G Level, Seru [facility] 05-21-2021 IgG [Mass/Vol] 1100 mg/dL 700 - 1600 [employer] Shop[employer]wen 2100 DO Work Phone: Comment on above: MONOCLONAL PROTEINS MAY CAUSE FALSELY LOWRESULTS IN THIS ASSAY. SERUM PROTEINELECTROPHORESIS SHOULD BE DONE THEFIRST TEST TO EVALUATE MONOCLONAL GAMMOPATHY. Laboratory - Chemistry and C hemistry - challengeon 05-21-2021 Albumin BCP dye [Mass/Vol] 4.2 g/dL 3.4 - 5.0 [employer] ASlaBlaze DFM DO Work Phone: ALP [Catalytic activity/Vol] 86 U/L 33 - 136 [employer]la[employer] DFM DO Work Phone: ALT With P-5'-P [Catalytic activity/Vol] 32 U/L 10 - 52 [employer]la[employer] DFM DO Work Phone: Comment on above: Patients treated wit h Sulfasalazine may generate falsely decreased results for ALT. Anion gap [Moles/Vol] 11 mmol/L 10 - 20 MP- Curtain Drier s-Solo 2100 DO Work Phone: [phone] AST With P-5'-P [Catalytic activity/Vol] 28 U/L 9 - 39 MP-Curtain Drier s-Owen 2100 DO Work Phone: [phone] Bilirubin [Mass/Vol] 0.6 mg/dL 0.0 - 1.2 MP-A llergist s-Owen 2100 DO Work Phone: [phone] Calcium [Mass/Vol] 9.2 mg/dL 8.6 - 10.3 MP-All ergist s-Solo 2100 DO Work Phone: [phone] Chloride [Moles/Vol] 107 mmol/L 98 - 107 MP-A llergist s-Solo 2100 DO Work Phone: [phone] CO2 [Moles/Vol] 27 mmol/L 21 - 32 MP-Allerg ist s-Solo 2100 DO Work Phone: [phone] Creatinine [Mass/Vol] 1.77 mg/dL above high threshold See Below MP-Curtain Drier s-Owen 2100 DO Work Phone: [phone] Comment on above: Reference Range: 0.5 0 - 1.30 Glucose [Mass/Vol] 99 mg/dL 74 - 99 MP-All ergist s-Owen 2100 DO Work Phone: [phone] Potassium [Moles/Vol] 4.5 mmol/L 3.5 - 5.3 MP- Curtain Drier s-Solo 2100 DO Work Phone: [phone] Protein [Mass/Vol] 7.0 g/dL 6.4 - 8.2 MP-All ergist s-Solo 2100 DO Work Phone: [phone] Sodium [Moles/Vol] 140 mmol/L 136 - 145 MP-All ergist s-Owen 2100 DO Work Phone: [phone] Urea nitrogen [Mass/Vol] 22 mg/dL 6 - 23 MP-Curtain Drier s-Owen 2100 DO Work Phone: [phone] No Panel Informationon 05-21 47 {mL/min/1.73m2} Abnormal >60 MP-All ergist s-Owen 2100 DO Work Phone: Comment on above: CALCULATIONS OF KATIE MATED GFR ARE PERFORMED USING THE MDRD STUDY EQUATION FOR THE IDMS-TRACEABLE CREATININE METHODS. CLIN CHEM 2007;53:766-72 39 {mL/min/1.73m2} Abnormal >60 MP-All ergist s-Owen 2100 DO Work Phone: CBC AND DIFFERENTIALon 01-20 % AUTOMATED IMMATURE GRAN 1.9 % High 0.0 - 0.9 [facility] Comment on above: Result Comment: Caryn ture Granulocyte Count (IG) includes promyelocytes, myelocytes and metamyelocytes but does not include bands. Percent differential counts (%) should be interpreted in the context of the absolute cell counts (cells/L). Performed By: #### C BCDF #### [address] [address] Basophils (Bld) [#/Vol] 0.02 10*3/uL Normal 0.00 - 0.10 [facility] Comment on above: Performed By: #### C BCDF #### [address] [address] Basophils/100 WBC (Bld) 0.5 % Normal 0.0 - 2.0 [facility] Comment on above: Performed By: #### C BCDF #### [address] [address] Eosinophils (Bld) [#/Vol] 0.25 10*3/uL Normal 0.00 - 0.70 [facility] Comment on above: Performed By: #### C BCDF #### [address] [address] Eosinophils/100 WBC (Bld) 6.0 % Normal 0.0 - 6.0 [facility] Comment on above: Performed By: #### C BCDF #### [address] [address] Erythrocyte distribution width (RBC) [Ratio] 14.2 % Normal 11.5 - 14.5 [facility] Comment on above: Performed By: #### C BCDF #### [address] [address] Hematocrit (Bld) [Volume fraction] 46.7 % Normal 41.0 - 52.0 [facility] Comment on above: Performed By: #### C BCDF #### [address] [address] Hemoglobin (Bld) [Mass/Vol] 14.8 g/dL Normal 13.5 - 17.5 [facility] Comment on above: Performed By: #### C BCDF #### [address] [address] Lymphocytes (Bld) [#/Vol] 1.10 10*3/uL Low 1.20 - 4.80 [facility] Comment on above: Performed By: #### C BCDF #### [address] [address] Lymphocytes/100 WBC (Bld) 26.6 % Normal 13.0 - 44.0 [facility] Comment on above: Performed By: #### C BCDF #### [address] [address] MCHC (RBC) [Mass/Vol] 31.7 g/dL Low 32.0 - 36.0 [facility] Comment on above: Performed By: #### C BCDF #### [address] [address] MCV (RBC) [Entitic vol] 85 fL Normal 80 - 100 [facility] Comment on above: Performed By: #### C BCDF #### [address] [address] Monocytes (Bld) [#/Vol] 0.48 10*3/uL Normal 0.10 - 1.00 [facility] Comment on above: Performed By: #### C BCDF #### [address] [address] Monocytes/100 WBC (Bld) 11.6 % Normal 2.0 - 10.0 [facility] Comment on above: Performed By: #### C BCDF #### [address] [address] Neutrophils (Bld) [#/Vol] 2.21 10*3/uL Normal 1.20 - 7.70 [facility] Comment on above: Performed By: #### C BCDF #### [address] [address] Neutrophils/100 WBC (Bld) 53.4 % Normal 40.0 - 80.0 [facility] Comment on above: Performed By: #### C BCDF #### [address] [address] Platelets (Bld) [#/Vol] 122 10*3/uL Low 150 - 450 [facility] Comment on above: Performed By: #### C BCDF #### [address] [address] RBC (Bld) [#/Vol] 5.47 x10E12/L Normal 4.50 - 5.90 [facility] Comment on above: Performed By: #### C BCDF #### [address] [address] WBC (Bld) [#/Vol] 4.1 10*3/uL Low 4.4 - 11.3 [facility] Comment on above: Performed By: #### C BCDF #### [address] [address] COMPREHENSIVE PANELon 2019 Albumin [Mass/Vol] 4.7 g/dL Normal 3.4 - 5.0 [facility] Comment on above: Performed By: #### P HOS #### [address] [address] ALP [Catalytic activity/Vol] 186 U/L High 33 - 120 [facility] Comment on above: Performed By: #### P HOS #### [address] [address] ALT [Catalytic activity/Vol] 46 U/L Normal 10 - 52 [facility] Comment on above: Result Comment: Yisel ents treated with Sulfasalazine may generate falsely decreased results for ALT. Performed By: #### P HOS #### [address] [address] Anion gap [Moles/Vol] 11 mmol/L Normal 10 - 20 [facility] Comment on above: Performed By: #### P HOS #### [address] [address] AST [Catalytic activity/Vol] 30 U/L Normal 9 - 39 [facility] Comment on above: Performed By: #### P HOS #### [address] [address] Bilirubin [Mass/Vol] 0.6 mg/dL Normal 0.0 - 1.2 [facility] Comment on above: Performed By: #### P HOS #### [address] [address] Calcium [Mass/Vol] 9.2 mg/dL Normal 8.6 - 10.3 [facility] Comment on above: Performed By: #### P HOS #### [address] [address] Chloride [Moles/Vol] 106 mmol/L Normal 98 - 107 [facility] Comment on above: Performed By: #### P HOS #### [address] [address] Creatinine [Mass/Vol] 1.90 mg/dL High 0.50 - 1.30 [facility] Comment on above: Performed By: #### P HOS #### [address] [address] GFR- AM. 44 mL/min/1.73m2 Abnormal >60 [facility] Comment on above: Result Comment: CALC ULATIONS OF ESTIMATED GFR ARE PERFORMED USING THE MDRD STUDY EQUATION FOR THE IDMS-TRACEABLE CREATININE METHODS. CLIN CHEM 2007;53:766-72 Performed By: #### P HOS #### [address] [address] GFR-NON AM. 36 mL/min/1.73m2 Abnormal >60 [facility] Comment on above: Performed By: #### P HOS #### [address] [address] Glucose [Mass/Vol] 62 mg/dL Low 74 - 99 [facility] Comment on above: Performed By: #### P HOS #### [address] [address] HCO3 (Bld) [Moles/Vol] 29 mmol/L Normal 21 - 32 [facility] Comment on above: Performed By: #### P HOS #### [address] [address] Potassium [Moles/Vol] 4.1 mmol/L Normal 3.5 - 5.3 [facility] Comment on above: Performed By: #### P HOS #### [address] [address] Protein [Mass/Vol] 6.5 g/dL Normal 6.4 - 8.2 [facility] Comment on above: Performed By: #### P HOS #### [address] [address] Sodium [Moles/Vol] 142 mmol/L Normal 136 - 145 [facility] Comment on above: Performed By: #### P HOS #### [address] [address] Urea nitrogen [Mass/Vol] 23 mg/dL Normal 6 - 23 [facility] Comment on above: Performed By: #### P HOS #### [address] [address] LDHon 01-21-2020 LDH 246 U/L Normal 84 - 246 [facility] Comment on above: Performed By: #### P HOS #### [address] [address] PARATHYROID HORMONE,INTACTon 01-21-2020 PARATHYROID HORMONE,INTACT 105.7 pg/mL High 18.5 - 88.0 [facility] Comment on above: Result Comment: Yisel ents receiving more than 5 mg/day of biotin may have interference in test results. A sample should be taken no sooner than eight hours after previous dose. Contact the testing laboratory for additional information. Performed By: #### P HOS #### [address] [address] PHOSPHORUSon 01-21-2020 Phosphate [Mass/Vol] 2.8 mg/dL Normal 2.5 - 4.9 [facility] Comment on above: Result Comment: The performance characteristics of phosphorus testing in heparinized plasma have been validated by the individual laboratory site where testing is performed. Testing on heparinized plasma is not approved by the FDA; however, such approval is not necessary. Performed By: #### P HOS #### [address] [address] URIC ACIDon 01-21-2020 Urate [Mass/Vol] 5.9 mg/dL Normal 4.0 - 7.5 [facility] Comment on above: Result Comment: Anabell puncture immediately after or during the administration of Metamizole may lead to falsely low results. Testing should be performed immediately prior to Metamizole dosing. Performed By: #### P HOS #### [address] [address] BASIC METABOLIC PANELon 11-2 Anion gap [Moles/Vol] 11 mmol/L Normal 10 - 20 [facility] Comment on above: Performed By: #### B MP #### [address] [address] Calcium [Mass/Vol] 9.0 mg/dL Normal 8.6 - 10.3 [facility] Comment on above: Performed By: #### B MP #### [address] [address] Chloride [Moles/Vol] 109 mmol/L High 98 - 107 [facility] Comment on above: Performed By: #### B MP #### [address] [address] Creatinine [Mass/Vol] 1.92 mg/dL High 0.50 - 1.30 [facility] Comment on above: Performed By: #### B MP #### [address] [address] GFR- AM. 44 mL/min/1.73m2 Abnormal >60 [facility] Comment on above: Result Comment: CALC ULATIONS OF ESTIMATED GFR ARE PERFORMED USING THE MDRD STUDY EQUATION FOR THE IDMS-TRACEABLE CREATININE METHODS. CLIN CHEM 2007;53:766-72 Performed By: #### B MP #### [address] [address] GFR-NON AM. 36 mL/min/1.73m2 Abnormal >60 [facility] Comment on above: Performed By: #### B MP #### [address] [address] Glucose [Mass/Vol] 64 mg/dL Low 74 - 99 [facility] Comment on above: Performed By: #### B MP #### [address] [address] HCO3 (Bld) [Moles/Vol] 27 mmol/L Normal 21 - 32 [facility] Comment on above: Performed By: #### B MP #### [address] [address] Potassium [Moles/Vol] 4.1 mmol/L Normal 3.5 - 5.3 [facility] Comment on above: Performed By: #### B MP #### [address] [address] Sodium [Moles/Vol] 143 mmol/L Normal 136 - 145 [facility] Comment on above: Performed By: #### B MP #### [address] [address] Urea nitrogen [Mass/Vol] 27 mg/dL High 6 - 23 [facility] Comment on above: Performed By: #### B MP #### [address] [address] Metabolic Panelon 07-27-2019 Anion gap [Moles/Vol] 11 mmol/L 10 - 20 [facility] Work Phone: Calcium [Mass/Vol] 9.0 mg/dL 8.6 - 10.3 [facility]Nep [facility] Work Phone: Chloride [Moles/Vol] 109 mmol/L above high threshold 98 - 107 [facility] Work Phone: CO2 [Moles/Vol] 27 mmol/L 21 - 32 [facility]ro log [facility] Work Phone: Creatinine [Mass/Vol] 1.92 mg/dL above high threshold See Below [facility] Work Phone: Comment on above: Reference Range: 0.5 0 - 1.30 Glucose [Mass/Vol] 64 mg/dL below low threshold 74 - 99 [facility] Work Phone: Potassium [Moles/Vol] 4.1 mmol/L 3.5 - 5.3 [facility] Work Phone: Sodium [Moles/Vol] 143 mmol/L 136 - [address] [facility]-[address] [facility] Work Phone: Urea nitrogen [Mass/Vol] 27 mg/dL above high threshold 6 - 23 [facility] Work Phone: Otheron 07-27-2019 Interpreted by: RULOQN51/27/19 14:38MRN: [id number] Name: KATERINA DANIELLE STUDY:US RENAL BILAT; 07/27/2019 2:41 pm INDICATION:CKD, Essential (primary) hypertension, Diffuse large B-cell lymphoma. COMPARISON:None. ORDERING CLINICIAN:CHRISTOPHER WATKINS TECHNIQUE:Multiple images of the kidneys were obtained . FINDINGS:RIGHT KIDNEY:The right kidney is 11.4 cm in longest axis. There is no evidence ofhydronephrosis. No definite renal masses or stones. LEFT KIDNEY:The left kidney is 10 cm in longest axis. No evidence ofhydronephrosis. Definite stones. BLADDER:The bladder is grossly unremarkable IMPRESSION:No hydronephrosis or suspicious renal masses or obstructing stonesElectronically signed by: CHELSEA 07/28/19 14:38 Normal [facility] Work Phone: 44 {mL/min/1.73m2} Abnormal >60 [facility]ep [facility] Work Phone: Comment on above: CALCULATIONS OF KATIE MATED GFR ARE PERFORMED USING THE MDRD STUDY EQUATION FOR THE IDMS-TRACEABLE CREATININE METHODS. CLIN CHEM 2007;53:766-72 36 {mL/min/1.73m2} Abnormal >60 [facility] Work Phone: Please click on the link to view the study images Normal -Nephrolog [facility] Work Phone: PARATHYROID HORMONE,INTACTon 07-27-2019 PARATHYROID HORMONE,INTACT 117.6 pg/mL High 18.5 - 88.0 [facility] Comment on above: Result Comment: Yisel ents receiving more than 5 mg/day of biotin may have interference in test results. A sample should be taken no sooner than eight hours after previous dose. Contact the testing laboratory for additional information. Performed By: #### P TH #### [address] [address] PHOSPHORUSon 07-27-2019 Phosphate [Mass/Vol] 2.7 mg/dL Normal 2.5 - 4.9 [facility] Comment on above: Result Comment: The performance characteristics of phosphorus testing in heparinized plasma have been validated by the individual laboratory site where testing is performed. Testing on heparinized plasma is not approved by the FDA; however, such approval is not necessary. Performed By: #### P HOS #### [address] [address] Parathormone Intact, Serumon 07-27-2019 Parathyrin.intact [Mass/Vol] 117.6 pg/mL above high threshold See Below [facility] Work Phone: Comment on above: Reference Range: 18. 5 - 88.0 Patients receiving more than 5 mg/day of biotin may have interference in test results. A sample should be taken no sooner than eight hours after previous dose. Contact the testing laboratory for additional information. Phosphorus, Serumon 07-27-20 Phosphate [Mass/Vol] 2.7 mg/dL 2.5 - 4.9 MG-N [facility] Work Phone: Comment on above: The performance marie acteristics of phosphorus testing in heparinized plasma have been validated by the individual laboratory site where testing is performed. Testing on heparinized plasma is not approved by the FDA; however, such approval is not necessary. TOTAL PROTEIN, URINE SPOTon 07-27-2019 CREATININE,URINE 167.0 mg/dL Normal 20.0 - 370.0 [facility] Comment on above: Performed By: #### T PS2 #### [address] [address] T. PROTEIN/CREAT RATIO 0.37 mg/mg Creat High 0.00 - 0.17 [facility] Comment on above: Performed By: #### T PS2 #### [address] [address] TOTAL PROT,URINE SPOT 61 mg/dL High 5 - 25 [facility] Comment on above: Performed By: #### T PS2 #### [address] [address] Total Protein, Urine Spoton 07-27-2019 Creatinine (U) [Mass/Vol] 167.0 mg/dL See Below [facility] Work Phone: Comment on above: Reference Range: 20. 0 - 370.0 Protein/Creatinine (U) [Ratio] 0.37 {mg/mg_Creat} above high threshold See Below [facility] Work Phone: Comment on above: Reference Range: 0.0 0 - 0.17 Total Protein, Urine Spot 61 mg/dL above high threshold 5 - 25 [facility] Work Phone: UA MICROSCOPICon 07-27-2019 MUCUS 1+ /LPF Normal [facility] Comment on above: Performed By: #### U AMIC #### [address] [address] RBC 1 /HPF Normal 0-5 [facility] Comment on above: Performed By: #### U AMIC #### [address] [address] WBC 1 /HPF Normal 0-5 [facility] Comment on above: Performed By: #### U AMIC #### [address] [address] URIC ACIDon 07-27-2019 Urate [Mass/Vol] 5.8 mg/dL Normal 4.0 - 7.5 [facility] Comment on above: Result Comment: Anabell puncture immediately after or during the administration of Metamizole may lead to falsely low results. Testing should be performed immediately prior to Metamizole dosing. Performed By: #### U NIKO #### [address] [address] URINALYSISon 07-27-2019 Appearance (U) CLEAR Normal CLEAR [facility] Comment on above: Performed By: #### U A #### [address] [address] Bilirubin (U) [Mass/Vol] Negative Normal NEGATIVE [facility] Comment on above: Performed By: #### U A #### [address] [address] BLOOD SMALL(1+) Abnormal NEGATIVE [facility] Comment on above: Performed By: #### U A #### [address] [address] Color (U) YELLOW Normal STRAW,YELLO W [facility] Comment on above: Performed By: #### U A #### [address] [address] Glucose [Mass/Vol] Negative Normal NEGATIVE [facility] Comment on above: Performed By: #### U A #### [address] [address] Ketones Ql (U) Negative Normal NEGATIVE [facility] Comment on above: Performed By: #### U A #### [address] [address] Leukocyte esterase Test strip Ql (U) Negative Normal NEGATIVE [facility] Comment on above: Performed By: #### U A #### [address] [address] Nitrite Ql (U) Negative Normal NEGATIVE [facility] Comment on above: Performed By: #### U A #### [address] [address] pH (Bld) 6.0 Normal 5.0 - 8.0 [facility] Comment on above: Performed By: #### U A #### [address] [address] Protein (U) [Mass/Vol] 30 (1+) Abnormal NEGATIVE [facility] Comment on above: Performed By: #### U A #### [address] [address] Specific gravity (U) [Rel density] 1.021 Normal 1.005 - 1.035 [facility] Comment on above: Performed By: #### U A #### [address] [address] Urobilinogen Qn (U) <2.0 Normal 0.0 - 1.9 [facility] Comment on above: Performed By: #### U A #### [address] [address] RENAL BILATon 07-27-2019 RENAL BILAT Patient Name: KATERINA DANIELLE STUDY: US RENAL BILAT; 07/27/2019 2:41 pm INDICATION: CKD, Essential (primary) hypertension, Diffuse large B-cell lymphoma. COMPARISON: None. ACCESSION NUMBER(S): [id number] ORDERING CLINICIAN: CHRISTOPHER WATKINS TECHNIQUE: Multiple images of the kidneys were obtained . FINDINGS: RIGHT KIDNEY: The right kidney is 11.4 cm in longest axis. There is no evidence of hydronephrosis. No definite renal masses or stones. LEFT KIDNEY: The left kidney is 10 cm in longest axis. No evidence of hydronephrosis. Definite stones. BLADDER: The bladder is grossly unremarkable IMPRESSION: No hydronephrosis or suspicious renal masses or obstructing stones Electronically signed by: GRUPO TRAN MD Normal [facility] Uric Acid, Serumon 9 Urate [Mass/Vol] 5.8 mg/dL 4.0 - 7.5 [facility]r [facility] Work Phone: Comment on above: Venipuncture immedia tely after or during the administration of Metamizole may lead to falsely low results. Testing should be performed immediately prior to Metamizole dosing. Urinalysison 07-27-2019 Appearance (U) CLEAR CLEAR [facility] Work Phone: Color (U) YELLOW See Below -Ne[facility] Work Phone: Comment on above: Reference Range: STR AW,YELLOW Glucose Ql (U) Negative NEGATIVE [facility] Work Phone: Ketones Ql (U) Negative NEGATIVE [facility] Work Phone: Leukocyte esterase Test strip Ql (U) Negative NEGATIVE [facility] Work Phone: pH (U) 6.0 [pH] 5.0 - 8.0 -Nephrolog [facility] Work Phone: Protein (U) [Mass/Vol] 30 (1+) Abnormal NEGATIVE [facility] Work Phone: RBC (U) [#/Vol] SMALL(1+) Abnormal NEGATIVE -Nephro log [facility] Work Phone: Specific gravity (U) [Rel density] 1.021 See Below [facility] Work Phone: Comment on above: Reference Range: 1.0 05 - 1.035 Urinalysis Negative NEGATIVE [facility] Work Phone: Urinalysis <2.0 0.0 - 1.9 [facility] Work Phone: Urinalysis, Microscopicon Urinalysis, Microscopic 1 {/HPF} 0-5 [facility] [facility] Work Phone: Urinalysis, Microscopic 1+ [facility] Work Phone: VITAMIN D, 25-HYDROXYon 07-03 VITAMIN D, 25-HYDROXY 66 ng/mL Normal [facility] Comment on above: Result Comment: . DEFICIENCY: < 20 NG/ML INSUFFICIENCY: 20-29 NG/ML OPTIMUM LEVEL: 30-80 NG/ML POSSIBLE TOXICITY: > 80 NG/ML THIS ASSAY ACCURATELY QUANTIFIES THE SUM OF VITAMIN D3, 25-HYDROXY AND VIT D2,25-HYDROXY. Performed By: #### V TDOH #### [address] [address] Vitamin D 25-Hydroxyon 07-27 Calcidiol [Mass/Vol] 66 ng/mL [facility] Work Phone: Comment on above: .DEFICIENCY: < 20 NG /MLINSUFFICIENCY: 20-29 NG/MLOPTIMUM LEVEL: 30-80 NG/MLPOSSIBLE TOXICITY: > 80 NG/MLTHIS ASSAY ACCURATELY QUANTIFIES THE SUM OFVITAMIN D3, 25-HYDROXY AND VIT D2,25-HYDROXY. Complete Blood Count + Diffe rentialon 07-02-2019 Basophils (Bld) [#/Vol] 0.01 {x10E9/L} See Below [facility] Work Phone: 1 Comment on above: Reference Range: 0.0 0 - 0.10 Basophils/100 WBC (Bld) 0.3 % 0.0 - 2.0 [facility] Work Phone: 1 Eosinophils (Bld) [#/Vol] 0.09 {x10E9/L} See Below [facility] Work Phone: 1 Comment on above: Reference Range: 0.0 0 - 0.70 Eosinophils/100 WBC (Bld) 2.8 % 0.0 - 6.0 [facility] Work Phone: Erythrocyte distribution width (RBC) [Ratio] 15.4 % above high threshold See Below [facility] Work Phone: Comment on above: Reference Range: 11. 5 - 14.5 Hematocrit (Bld) [Volume fraction] 43.5 % See Below [facility] Work Phone: Comment on above: Reference Range: 41. 0 - 52.0 Hemoglobin (Bld) [Mass/Vol] 13.6 g/dL See Below [facility] Work Phone: 1 Comment on above: Reference Range: 13. 5 - 17.5 Lymphocytes (Bld) [#/Vol] 0.93 {x10E9/L} below low threshold See Below [facility] Work Phone: Comment on above: Reference Range: 1.2 0 - 4.80 Lymphocytes/100 WBC (Bld) 29.3 % See Below [facility] Work Phone: Comment on above: Reference Range: 13. 0 - 44.0 MCHC (RBC) [Mass/Vol] 31.3 g/dL below low threshold See Below [facility] Work Phone: 1 Comment on above: Reference Range: 32. 0 - 36.0 MCV (RBC) [Entitic vol] 87 fL 80 - 100 [facility] Work Phone: 1 Monocytes (Bld) [#/Vol] 0.28 {x10E9/L} See Below [facility] Work Phone: Comment on above: Reference Range: 0.1 0 - 1.00 Monocytes/100 WBC (Bld) 8.8 % 2.0 - 10.0 [facility] Work Phone: Neutrophils (Bld) [#/Vol] 1.84 {x10E9/L} See Below [facility] Work Phone: 1 Comment on above: Reference Range: 1.2 0 - 7.70 Neutrophils/100 WBC (Bld) 58.2 % See Below [facility] Work Phone: Comment on above: Reference Range: 40. 0 - 80.0 Platelets (Bld) [#/Vol] 61 {x10E9/L} below low threshold 150 - 450 [facility] Work Phone: RBC (Bld) [#/Vol] 5.02 {x10E12/L} See Below [facility] Work Phone: Comment on above: Reference Range: 4.5 0 - 5.90 WBC (Bld) [#/Vol] 3.2 {x10E9/L} below low threshold 4.4 - 11.3 [facility] Work Phone: Complete Blood Count + Differential 0.6 % 0.0 - 0.9 [facility] Work Phone: Comment on above: Percent differential counts (%) should be interpreted in the context of the absolute cell counts (cells/L). Gamma Glutamyl Transferase, Serumon 07-02-2019 Gamma glutamyl transferase [Catalytic activity/Vol] 522 U/L above high threshold 5 - 64 [facility] Work Phone: [phone] Imm/Pathon 07-02-2019 IgA [Mass/Vol] 13 mg/dL below low threshold 70 - 400 [facility] Work Phone: [phone] Comment on above: MONOCLONAL PROTEINS MAY CAUSE FALSELY LOWRESULTS IN THIS ASSAY. SERUM PROTEINELECTROPHORESIS SHOULD BE DONE THEFIRST TEST TO EVALUATE MONOCLONAL GAMMOPATHY. IgG [Mass/Vol] 589 mg/dL below low threshold 700 - 1600 [facility] Work Phone: [phone] Comment on above: MONOCLONAL PROTEINS MAY CAUSE FALSELY LOWRESULTS IN THIS ASSAY. SERUM PROTEINELECTROPHORESIS SHOULD BE DONE THEFIRST TEST TO EVALUATE MONOCLONAL GAMMOPATHY. IgM [Mass/Vol] mg/dL Abnormal 40 - 230 [facility] Work Phone: [phone]- Comment on above: MONOCLONAL PROTEINS MAY CAUSE FALSELY LOWRESULTS IN THIS ASSAY. SERUM PROTEINELECTROPHORESIS SHOULD BE DONE THEFIRST TEST TO EVALUATE MONOCLONAL GAMMOPATHY. Metabolic Panelon 07-02-2019 ALP [Catalytic activity/Vol] 271 U/L above high threshold 33 - 120 [facility] Work Phone: - Anion gap [Moles/Vol] 13 mmol/L 10 - 20 [facility] Work Phone: Bilirubin [Mass/Vol] 0.5 mg/dL 0.0 - 1.2 [facility] Work Phone: Calcium [Mass/Vol] 9.3 mg/dL 8.6 - 10.6 [facility] rology -[facility] Work Phone: Chloride [Moles/Vol] 107 mmol/L 98 - 107 [facility] Work Phone: 38 CO2 [Moles/Vol] 26 mmol/L 21 - 32 [facility]rol ogy -[facility] Work Phone: Creatinine [Mass/Vol] 1.82 mg/dL above high threshold See Below [facility] Work Phone: Comment on above: Reference Range: 0.5 0 - 1.30 Glucose [Mass/Vol] 90 mg/dL 74 - 99 [facility] rology -[facility] Work Phone: -38 LDH [Catalytic activity/Vol] 202 U/L 84 - 246 [facility] Work Phone: [phone] Potassium [Moles/Vol] 4.7 mmol/L 3.5 - 5.3 [facility] [employer] Work Phone: Protein [Mass/Vol] 6.3 g/dL below low threshold 6.4 - 8.2 [facility] Work Phone: Sodium [Moles/Vol] 141 mmol/L 136 - 145 [facility] Work Phone: [phone] Urea nitrogen [Mass/Vol] 32 mg/dL above high threshold 6 - 23 [facility] Work Phone: Glucose [Mass/Vol] 93 mg/dL 74 - 99 [facility] Work Phone: Otheron 07-02-2019 Albumin BCP dye [Mass/Vol] 4.4 g/dL 3.4 - 5.0 [facility] Work Phone: ALT With P-5'-P [Catalytic activity/Vol] 56 U/L above high threshold 10 - 52 [facility] Work Phone: Comment on above: Patients treated wit h Sulfasalazine may generate falsely decreased results for ALT. AST With P-5'-P [Catalytic activity/Vol] 39 U/L 9 - 39 [facility] Work Phone: 46 {mL/min/1.73m2} Abnormal >60 [facility] Ramon [employer] Work Phone: Comment on above: CALCULATIONS OF KATIE MATED GFR ARE PERFORMED USING THE MDRD STUDY EQUATION FOR THE IDMS-TRACEABLE CREATININE METHODS. CLIN CHEM 2007;53:766-72 38 {mL/min/1.73m2} Abnormal >60 [facility] Ramon [employer] Work Phone: Interpreted by: BENJY VICK07/02/19 12:12MRN: [id number] Name: KATERINA DANIELLE STUDY:PET/CT LYMPHOMA STAGING; 07/02/2019 9:33 am INDICATION:Currently on CAR T infusion. Evaluate for disease response. NHL. S/pCAR T Cell therapy. 6 month scan. 58-year-old male with non-Hodgkin'slymphoma, initially diagnosed in the right sphenoid as diffuse largeB- ell lymphoma in 2016 treated with 4 cycles of hyper-CVAD.Recurrence in 10/2017 in the left kidney, started on clinical trialCASE 2415 (Venetoclax + RICE). Patient developed further recurrencein 08/2018, reated with CAR T-cell infusion (tisagenlecleucel) withpreparative regimen of fludarabine and Cytoxan on 01/04/2019 COMPARISON:PET-CT 04/02/2019 ORDERING CLINICIAN:LETICIA SALEEM TECHNIQUE:DIVISION OF NUCLEAR MEDICINEPOSITRON EMISSION TOMOGRAPHY (PET-CT) The patient received an intravenous dose of 10.7 mCi of Fluorine-18fluorodeoxyglu cose (FDG). Positron emission tomographic (PET) imagesfrom mid-thigh to skull base were then acquired after a one hourdelay. Also acquired was a contemporaneous low dose non-contrast CTscan performed for attenuation correction of PET images and anatomiclocalization. The PET and CT images were digitally fused fordisplay. All images were acquired on a combined PET-CT scanner unit.Some areas of FDG accumulation may be described in standardizeduptake value (SUV) units. CODING:Subsequent Treatment Strategy (PS) CALIBRATION:Dose Kclsmgtuo-of-Xyux Interval (mins): 54 minMediastinal bloodpool SUV (normal 1.5-2.5): 2.3Blood glucose: 93 mg/dL FINDINGS:NECK:No focal hypermetabolic soft tissue lesion is seen in the neck.No hypermetabolic cervical lymphadenopathy is present. CHEST:No focal hypermetabolic lesion is seen in the lung parenchyma.No evidence of hypermetabolic mediastinal, hilar or axillarylymphadenopathy. ABDOMEN AND PELVIS:No hypermetabolic soft tissue lesion is present in the abdomen andpelvis. No significant change in size of the inferior pole left renalsoft tissue lesion without convincing evidence of increased FDGuptake, although evaluation is somewhat limited due to the increasedFDG uptake within the adjacent left renal collecting system andureter. No significant change in size of the perisplenic soft tissuelesion with similar mild FDG uptake with a max SUV of 1.4No evidence of hypermetabolic lymphadenopathy.Physiolog ic radiotracer uptake is present in the liver and spleenwith excretion into the bowel and the urinary tract. MUSCULOSKELETAL:There is no focal hypermetabolic lesion to suggest osseous metastasis. IMPRESSION:1. No significant change in size of the inferior pole left renal softtissue lesion without convincing evidence of increased metabolicactivity, although quantification of residual metabolic activity islimited due to excretion of the radiotracer in the patient left renalcollecting system and ureter. Findings likely reflect residual scartissue.2. Very mild persistent metabolic activity within the perisplenicsoft tissue lesion, unchanged in size and also likely reflectsresidual scar tissue.3. Deauville score 2. I personally reviewed the image(s) / study and agree with thefindings and interpretation as stated. [facility]Electronically signed by: DANIAL VICK 07/02/19 12:12 Normal [facility] Work Phone: C Reactive Protein, Serumon 04-02-2019 CRP [Mass/Vol] 1.59 mg/dL Abnormal MG[facility]Ophthal mo logy-[place] [facility] Work Phone: Comment on above: REF VALUE< 1.00 Complete Blood Count + Diffe rentialon 04-02-2019 Basophils (Bld) [#/Vol] 0.01 {x10E9/L} See Below MG-Ophthalmo logy-[place] [facility] Work Phone: Comment on above: Reference Range: 0.0 0 - 0.10 Basophils/100 WBC (Bld) 0.3 % 0.0 - 2.0 MG[facility]Ophthalmo logy-[place] [facility] Work Phone: Eosinophils (Bld) [#/Vol] 0.07 {x10E9/L} See Below [facility]-Ophthalmo logy-[place] [facility] Work Phone: Comment on above: Reference Range: 0.0 0 - 0.70 Eosinophils/100 WBC (Bld) 2.2 % 0.0 - 6.0 MG-Ophthalmlexie [facility] Work Phone: Erythrocyte distribution width (RBC) [Ratio] 13.7 % See Below Corwin [facility] Work Phone: Comment on above: Reference Range: 11. 5 - 14.5 Hematocrit (Bld) [Volume fraction] 38.8 % below low threshold See Below [facility]win [facility] Work Phone: Comment on above: Reference Range: 41. 0 - 52.0 Hemoglobin (Bld) [Mass/Vol] 12.4 g/dL below low threshold See Below Corwin [facility] Work Phone: Comment on above: Reference Range: 13. 5 - 17.5 Lymphocytes (Bld) [#/Vol] 0.89 {x10E9/L} below low threshold See Below Corwin Weaver Work Phone: Comment on above: Reference Range: 1.2 0 - 4.80 Lymphocytes/100 WBC (Bld) 27.7 % See Below Corwin Weaver Work Phone: Comment on above: Reference Range: 13. 0 - 44.0 MCHC (RBC) [Mass/Vol] 32.0 g/dL See Below ASHLEY Weaver Work Phone: Comment on above: Reference Range: 32. 0 - 36.0 MCV (RBC) [Entitic vol] 93 fL 80 - 100 Corwin Weaver Work Phone: Monocytes (Bld) [#/Vol] 0.37 {x10E9/L} See Below Corwin Weaver Work Phone: Comment on above: Reference Range: 0.1 0 - 1.00 Monocytes/100 WBC (Bld) 11.5 % 2.0 - 10.0 -Ophthalmlexie Weaver Work Phone: Neutrophils (Bld) [#/Vol] 1.86 {x10E9/L} See Below MG-Ophthalmo logy-[place] [facility] Work Phone: Comment on above: Reference Range: 1.2 0 - 7.70 Neutrophils/100 WBC (Bld) 58.0 % See Below MG-Ophthalmo logy-[place] [facility] Work Phone: Comment on above: Reference Range: 40. 0 - 80.0 Platelets (Bld) [#/Vol] 60 {x10E9/L} below low threshold 150 - 450 MG-Ophthalmo logy-[place] [facility] Work Phone: [phone] RBC (Bld) [#/Vol] 4.18 {x10E12/L} below low threshold See Below MG-Ophthalmo logy-[place] [facility] Work Phone: Comment on above: Reference Range: 4.5 0 - 5.90 WBC (Bld) [#/Vol] 3.2 {x10E9/L} below low threshold 4.4 - 11.3 MG-Ophthalmo logsamra-[place] [facility] Work Phone: [phone] Complete Blood Count + Differential 0.3 % 0.0 - 0.9 MG-Ophthalmo jerri-[place] Work Phone: [phone] Comment on above: Percent differential counts (%) should be interpreted in the context of the absolute cell counts (cells/L). Ferritin, Serumon 04-02-2019 Ferritin [Mass/Vol] 667 ug/L above high threshold 20 - 300 MG-Ophthalmo logsamra-[place] Work Phone: Fibrinogen Assayon 9 Fibrinogen Assay 435 mg/dL above high threshold 200 - 400 MG-Ophthalmo logy-[place] [facility] Work Phone: Hematologyon 04-02-2019 aPTT Coag (PPP) [Time] 25 {sec} below low threshold 28 - 38 MG-Ophthalmo logy-[place] [facility] Work Phone: Comment on above: THE APTT IS NO LONGE R USED FOR MONITORING UNFRACTIONATED HEPARIN THERAPY. FOR MONITORING HEPARIN THERAPY, USE THE HEPARIN ASSAY. INR Coag (PPP) [Relative time] 1.0 {INR} 0.9 - 1.1 MG-Ophthalmo logy-[place] [facility] Work Phone: [phone] PT Coag (PPP) [Time] 11.0 {sec} 9.7 - 12.7 MG-O phthalmo logy-[place] [facility] Work Phone: [phone] Immunoglobulin G Level, Seru mon 04-02-2019 IgG [Mass/Vol] 487 mg/dL below low threshold 700 - 1600 MG[facility]Ophthalmo logy-[place] [facility] Work Phone: [phone] Comment on above: MONOCLONAL PROTEINS MAY CAUSE FALSELY LOWRESULTS IN THIS ASSAY. SERUM PROTEINELECTROPHORESIS SHOULD BE DONE THEFIRST TEST TO EVALUATE MONOCLONAL GAMMOPATHY. Magnesium, Serumon 9 Magnesium [Mass/Vol] 2.39 mg/dL See Below MG-O phthalmo logy-[place] [facility] [employer] [facility] Work Phone: Comment on above: Reference Range: 1.6 0 - 2.40 Metabolic Panelon 04-02-2019 ALP [Catalytic activity/Vol] 327 U/L above high threshold 33 - 120 MG-Ophthalmo logy-[place] [facility] Work Phone: Anion gap [Moles/Vol] 14 mmol/L 10 - 20 MG- Ophthalmo logy-[place] [facility] Work Phone: Bilirubin [Mass/Vol] 0.7 mg/dL 0.0 - 1.2 MG-O phthalmo logy-[place] [facility] [facility] Work Phone: Calcium [Mass/Vol] 9.6 mg/dL 8.6 - 10.6 MG-Oph thalmo logy-[place] [facility] Work Phone: Chloride [Moles/Vol] 106 mmol/L 98 - 107 MG-O phthalmo logy-[place] [facility] Work Phone: CO2 [Moles/Vol] 25 mmol/L 21 - 32 MG-Ophtha lmo [facility] e [employer] Work Phone: Creatinine [Mass/Vol] 1.50 mg/dL above high threshold See Below MG-Ophthalmo logy-[place] [facility] Work Phone: Comment on above: Reference Range: 0.5 0 - 1.30 Glucose [Mass/Vol] 94 mg/dL 74 - 99 MG-Oph thalmo log-[facility] e [employer] Work Phone: LDH [Catalytic activity/Vol] 161 U/L 84 - 246 MG-Ophthalmo logy-[facility] e [employer] [facility] Work Phone: Potassium [Moles/Vol] 4.6 mmol/L 3.5 - 5.3 MG- [facility] [employer] Work Phone: Protein [Mass/Vol] 6.2 g/dL below low threshold 6.4 - 8.2 MG[facility] Work Phone: Sodium [Moles/Vol] 140 mmol/L 136 - 145 MG-Oph [facility] [employer] Work Phone: Urea nitrogen [Mass/Vol] 22 mg/dL 6 - 23 MG[facility]hthalmo [facility] Work Phone: Glucose [Mass/Vol] 92 mg/dL 74 - 99 MG-Oph [facility] [employer] Work Phone: Otheron 04-02-2019 Interpreted by: REAGAN AHMADI04/02/19 13:04MRN: [id number] Name: KATERINA DANIELLE STUDY:PET/CT LYMPHOMA STAGING; 04/02/2019 11:47 am INDICATION:90 day s/p CAR T infusion. Evaluate for disease response. NHL. S/pCAR T Cell therapy. Day 60 scan. 58-year-old male with non-Hodgkin'slymphoma, initially diagnosed in the right sphenoid as diffuse largeB- ell lymphoma in 2016 treated with 4 cycles of hyper-CVAD.Recurrence in 10/2017 in the left kidney, started on clinical trialCASE 2415 (Venetoclax + RICE). Patient developed further recurrencein 08/2018, reated with CAR T-cell infusion (tisagenlecleucel) withpreparative regimen of fludarabine and Cytoxan on 01/04/2019 COMPARISON:PET-CT dated 03/05/2019 ORDERING CLINICIAN:LETICIA SALEEM TECHNIQUE:DIVISION OF NUCLEAR MEDICINEPOSITRON EMISSION TOMOGRAPHY (PET-CT) The patient received an intravenous dose of 14.8 mCi of Fluorine-18fluorodeoxyglu cose (FDG). Positron emission tomographic (PET) imagesfrom mid-thigh to skull base were then acquired after a one hourdelay. Also acquired was a contemporaneous low dose non-contrast CTscan performed for attenuation correction of PET images and anatomiclocalization. The PET and CT images were digitally fused fordisplay. All images were acquired on a combined PET-CT scanner unit.Some areas of FDG accumulation may be described in standardizeduptake value (SUV) units. CODING:Subsequent Treatment Strategy (PS) CALIBRATION:Dose Anjbqvgtx-cg-Zqjn Interval (mins): 105 minMediastinal bloodpool SUV (normal 1.5-2.5): 1.5Blood glucose: 92 mg/dL FINDINGS:NECK:No focal hypermetabolic soft tissue lesion is seen in the neck.No hypermetabolic cervical lymphadenopathy is present. CHEST:No focal hypermetabolic lesion is seen in the lung parenchyma.No evidence of hypermetabolic mediastinal, hilar or axillarylymphadenopathy. ABDOMEN AND PELVIS:No hypermetabolic soft tissue lesion is present in the abdomen andpelvis.No evidence of hypermetabolic lymphadenopathy.Physiolog ic radiotracer uptake is present in the liver and spleenwith excretion into the bowel loops and the genitourinary tract.The previously noted mild perisplenic hypermetabolic activity, seemsto be continuous with the splenic tissue and again demonstrates milduptake, likely representing splenic tissue. MUSCULOSKELETAL:There is no focal hypermetabolic lesion to suggest osseous metastasis. IMPRESSION:1. No definite evidence of focal hypermetabolic activity throughoutthe body to suggest recurrent or residual malignancy. I personally reviewed the image(s) / study and agree with thefindings and interpretation as stated. [facility] Electronically signed by: ZARA AHMADI 04/02/19 13:04 Normal MG-Ophthalmo logy-[place] [facility] Work Phone: Albumin BCP dye [Mass/Vol] 4.1 g/dL 3.4 - 5.0 MG-Ophthalmo logy-[place] [facility] Work Phone: ALT With P-5'-P [Catalytic activity/Vol] 34 U/L 10 - 52 MG-Ophthalmo logy-[place] [facility] Work Phone: Comment on above: Patients treated wit h Sulfasalazine may generate falsely decreased results for ALT. AST With P-5'-P [Catalytic activity/Vol] 24 U/L 9 - 39 MG-Ophthalmo logy-[place] [facility] Work Phone: 48 {mL/min/1.73m2} Abnormal >60 MG-Oph thalmo logy-[place] [facility] Work Phone: 58 {mL/min/1.73m2} Abnormal >60 MG-Oph thalmo logy-[place] [facility] Work Phone: Comment on above: CALCULATIONS OF KATIE MATED GFR ARE PERFORMED USING THE MDRD STUDY EQUATION FOR THE IDMS-TRACEABLE CREATININE METHODS. CLIN CHEM 2007;53:766-72 Uric Acid, Serumon 9 Urate [Mass/Vol] 5.9 mg/dL 4.0 - 7.5 MG-Ophth almo logy-[place] [facility] Work Phone: Comment on above: Venipuncture immedia tely after or during the administration of Metamizole may lead to falsely low results. Testing should be performed immediately prior to Metamizole dosing. Vitamin B12, Serumon 019 Cobalamin (Vitamin B12) [Mass/Vol] 362 pg/mL 211 - 911 MG-Ophthalmo logy-[place] [facility] Work Phone: C Reactive Protein, Serumon 03-19-2019 CRP [Mass/Vol] 0.82 mg/dL MG-Ophthal mo Jenni Merino Work Phone: Comment on above: REF VALUE< 1.00 Complete Blood Count + Diffe maryse 03-19-2019 Basophils (Bld) [#/Vol] 0.01 {x10E9/L} See Below MG-Ophthalmo jerri-Kandice Merino Work Phone: Comment on above: Reference Range: 0.0 0 - 0.10 Basophils/100 WBC (Bld) 0.4 % 0.0 - 2.0 MG-Ophthalmo jerri-Kandice Merino Work Phone: Eosinophils (Bld) [#/Vol] 0.06 {x10E9/L} See Below MG-Ophthalmo jerri-Kandice Merino Work Phone: Comment on above: Reference Range: 0.0 0 - 0.70 Eosinophils/100 WBC (Bld) 2.3 % 0.0 - 6.0 MG-Ophthalmo jerri-Kandice Merino Work Phone: Erythrocyte distribution width (RBC) [Ratio] 14.9 % above high threshold See Below MG-Ophthalmo jerri-Kandice Merino Work Phone: Comment on above: Reference Range: 11. 5 - 14.5 Hematocrit (Bld) [Volume fraction] 37.4 % below low threshold See Below MG-Ophthalmo jerri-Kandice Merino Work Phone: Comment on above: Reference Range: 41. 0 - 52.0 Hemoglobin (Bld) [Mass/Vol] 11.9 g/dL below low threshold See Below MG-Ophthalmo jerri-Kandice Merino Work Phone: Comment on above: Reference Range: 13. 5 - 17.5 Lymphocytes (Bld) [#/Vol] 0.78 {x10E9/L} below low threshold See Below MG-Ophthalmo jerri-Serinak hardik Merino Work Phone: Comment on above: Reference Range: 1.2 0 - 4.80 Lymphocytes/100 WBC (Bld) 30.2 % See Below MG-Ophthalmo jerri-Kandice Talamantes02 Work Phone: Comment on above: Reference Range: 13. 0 - 44.0 MCHC (RBC) [Mass/Vol] 31.8 g/dL below low threshold See Below MG-Ophthalmo jerri-Kandice Talamantes02 Work Phone: Comment on above: Reference Range: 32. 0 - 36.0 MCV (RBC) [Entitic vol] 95 fL 80 - 100 MG-Ophthalmo jerri-Kandice Talamantes02 Work Phone: [phone] Monocytes (Bld) [#/Vol] 0.33 {x10E9/L} See Below MG-Ophthalmo jerri-Kandice Merino Work Phone: [phone] Comment on above: Reference Range: 0.1 0 - 1.00 Monocytes/100 WBC (Bld) 12.8 % 2.0 - 10.0 MG-Ophthalmo Jenni Merino Work Phone: Neutrophils (Bld) [#/Vol] 1.38 {x10E9/L} See Below MG-Ophthalmo Jenni Merino Work Phone: [phone] Comment on above: Reference Range: 1.2 0 - 7.70 Neutrophils/100 WBC (Bld) 53.5 % See Below MG-Ophthalmo Jenni Merino Work Phone: [phone] Comment on above: Reference Range: 40. 0 - 80.0 Platelets (Bld) [#/Vol] 54 {x10E9/L} below low threshold 150 - 450 MG-Ophthalmo jerri-Kandice Talamantes02 Work Phone: RBC (Bld) [#/Vol] 3.95 {x10E12/L} below low threshold See Below MG-Ophthalmo jerri-Kandice Talamantes02 Work Phone: Comment on above: Reference Range: 4.5 0 - 5.90 WBC (Bld) [#/Vol] 2.6 {x10E9/L} below low threshold 4.4 - 11.3 MG-Ophthalmo logy-[place] [facility] Work Phone: [phone] Complete Blood Count + Differential 0.8 % 0.0 - 0.9 MG-Ophthalmo logy-[place] [facility] Work Phone: [phone] Comment on above: Percent differential counts (%) should be interpreted in the context of the absolute cell counts (cells/L). Ferritin, Serumon 03-19-2019 Ferritin [Mass/Vol] 569 ug/L above high threshold 20 - 300 MG-Ophthalmo logy-[place] [facility] Work Phone: Fibrinogen Assayon 9 Fibrinogen Assay 388 mg/dL 200 - 400 MG-Ophth almo logy-[place] [facility] Work Phone: [phone] Hematologyon 03-19-2019 aPTT Coag (PPP) [Time] 31 {sec} 28 - 38 MG-Ophthalmo logy-[place] [facility] Work Phone: Comment on above: THE APTT IS NO LONGE R USED FOR MONITORING UNFRACTIONATED HEPARIN THERAPY. FOR MONITORING HEPARIN THERAPY, USE THE HEPARIN ASSAY. INR Coag (PPP) [Relative time] 1.0 {INR} 0.9 - 1.1 MG-Ophthalmo logy-[place] [facility] Work Phone: [phone] PT Coag (PPP) [Time] 11.0 {sec} 9.7 - 12.7 MG-O phthalmo logy-[place] [facility] Work Phone: [phone] Immunoglobulin G Level, Seru mon 03-19-2019 IgG [Mass/Vol] 263 mg/dL below low threshold 700 - 1600 MG-Ophthalmo logy-[place] [facility] Work Phone: [phone] Comment on above: MONOCLONAL PROTEINS MAY CAUSE FALSELY LOWRESULTS IN THIS ASSAY. SERUM PROTEINELECTROPHORESIS SHOULD BE DONE THEFIRST TEST TO EVALUATE MONOCLONAL GAMMOPATHY. Magnesium, Serumon 9 Magnesium [Mass/Vol] 2.32 mg/dL See Below MG-O phthalmo logy-[place] [facility] Work Phone: Comment on above: Reference Range: 1.6 0 - 2.40 Metabolic Panelon 03-19-2019 ALP [Catalytic activity/Vol] 359 U/L above high threshold 33 - 120 MG-Ophthalmo logy-[place] e [place] Work Phone: Anion gap [Moles/Vol] 13 mmol/L 10 - 20 MG- Ophthalmo logy-[place] Work Phone: Bilirubin [Mass/Vol] 0.6 mg/dL 0.0 - 1.2 MG-O phthalmo logy-Torinalalex e [place] Work Phone: Calcium [Mass/Vol] 9.7 mg/dL 8.6 - 10.6 [facility]Tor[facility] e [place] Work Phone: Chloride [Moles/Vol] 107 mmol/L 98 - 107 MG-O phthalmo [facility]-Torinalalex e [place] Work Phone: CO2 [Moles/Vol] 24 mmol/L 21 - 32 MG[facility]ha [facility]-Torinalalex e [place] Work Phone: Creatinine [Mass/Vol] 1.49 mg/dL above high threshold See Below MG-Ophthalmo henoky-Serinak e [place] Work Phone: Comment on above: Reference Range: 0.5 0 - 1.30 Glucose [Mass/Vol] 107 mg/dL above high threshold 74 - 99 MG-Ophthalmo logy-[place] e [place] Work Phone: LDH [Catalytic activity/Vol] 171 U/L 84 - 246 MG-Ophthalmo logy-[place] e [place] Work Phone: Potassium [Moles/Vol] 4.2 mmol/L 3.5 - 5.3 MG- [facility]hthalmo logy[facility] [facility] [place] Work Phone: Protein [Mass/Vol] 5.7 g/dL below low threshold 6.4 - 8.2 MG-[facility]hthalmo log[facility] Work Phone: Sodium [Moles/Vol] 140 mmol/L 136 - 145 MG-Oph thalmo logy-[place] [facility] Work Phone: Urea nitrogen [Mass/Vol] 21 mg/dL 6 - 23 MG-[facility]hthalmo log[facility] [facility] Work Phone: Otheron 03-19-2019 Albumin BCP dye [Mass/Vol] 4.1 g/dL 3.4 - 5.0 MG-[facility]hthalmo log[facility] [facility] Work Phone: ALT With P-5'-P [Catalytic activity/Vol] 48 U/L 10 - 52 MG-Ophthalmo log[facility] [facility] Work Phone: Comment on above: Patients treated wit h Sulfasalazine may generate falsely decreased results for ALT. AST With P-5'-P [Catalytic activity/Vol] 27 U/L 9 - 39 MG-Ophthalmo log[facility] [facility] Work Phone: 48 {mL/min/1.73m2} Abnormal >60 MG-Oph thalmo logy-[place] [facility] Work Phone: 58 {mL/min/1.73m2} Abnormal >60 MG-Oph thalmo logy-[place] [facility] Work Phone: Comment on above: CALCULATIONS OF KATIE MATED GFR ARE PERFORMED USING THE MDRD STUDY EQUATION FOR THE IDMS-TRACEABLE CREATININE METHODS. CLIN CHEM 2007;53:766-72 Thyroidon 03-19-2019 TSH Qn 0.78 {mIU/L} See Below MG-Ophthalmo logy-[place] [facility] Work Phone: Comment on above: Reference Range: 0.4 4 - 3.98 TSH testing is performed using different testing methodology at [facility] than at other [facility] hospitals. Direct result comparisons should only be made within the same method.. Patients receiving more than 5 mg/day of biotin may have interference in test results. A sample should be taken no sooner than eight hours after previous dose. Contact [phone] for additional information. Uric Acid, Serumon 9 Urate [Mass/Vol] 5.5 mg/dL 4.0 - 7.5 MG-Conchis Carpenter B102 Work Phone: Comment on above: Venipuncture immedia tely after or during the administration of Metamizole may lead to falsely low results. Testing should be performed immediately prior to Metamizole dosing. Vital Signs Date Time Vital Sign Value Performing Clinician Facility 08-13-2023 11:15-0500 Body mass index (BMI) [Ratio] 35.16 kg/m2 Anirudh Sears MD Work Phone: [facility] 08-13-2023 11:15-0500 Body temperature 97.3 [degF] Anirudh Sears MD Work Phone: [facility] 08-13-2023 11:15-0500 Body weight 117.6 kg Anirudh Sears MD Work Phone: [facility] 08-13-2023 11:15-0500 Diastolic blood pressure 78 mm[Hg] Anirudh Sears MD Work Phone: [facility] 08-13-2023 11:15-0500 Heart rate 70 /min Anirudh Sears MD Work Phone: [facility] 08-13-2023 11:15-0500 Respiratory rate 16 /min Anirudh Sears MD Work Phone: [facility] 08-13-2023 11:15-0500 SaO2% (BldA) [Mass fraction] 98 % Anirudh Sears MD Work Phone: [facility] 08-13-2023 11:15-0500 Systolic blood pressure 115 mm[Hg] Anirudh Sears MD Work Phone: [facility] 02-20-2023 13:54-0400 Body height 182.88 cm Nael Farias Work Phone: -[facility] Work Phone: 02-20-2023 13:54-0400 Body mass index (BMI) [Ratio] 35.26 kg/m2 Nael Farias Work Phone: [facility] Work Phone: 02-20-2023 13:54-0400 Body surface area Derived from formula 2.38 m2 Nael Farias Work Phone: [facility] Work Phone: 02-20-2023 13:54-0400 Body temperature 97.16 [degF] Nael Farias Work Phone: [facility] Work Phone: 02-20-2023 13:54-0400 Body weight 117.94 kg Nael Farias Work Phone: [facility] Work Phone: 02-20-2023 13:54-0400 Diastolic blood pressure 95 mm[Hg] Nael Farias Work Phone: [facility] Work Phone: 02-20-2023 13:54-0400 Heart rate 75 /min Nael Farias Work Phone: [facility] Work Phone: 02-20-2023 13:54-0400 Respiratory rate 16 /min Nael Farias Work Phone: [facility] Work Phone: 02-20-2023 13:54-0400 SaO2% (BldA) [Mass fraction] 96 % Nael Farias Work Phone: [facility] Work Phone: 02-20-2023 13:54-0400 Systolic blood pressure 136 mm[Hg] [facility] Work [facility] 01-29-2023 13:51-0400 Body height 182.88 cm Nael Farias Work Phone: [facility] 3 DO Work Phone: 01-29-2023 13:51-0400 Body mass index (BMI) [Ratio] 36.08 kg/m2 Nael Farias Work Phone: [facility] 3 DO Work Phone: 01-29-2023 13:51-0400 Body surface area Derived from formula 2.4 m2 Nael Farias Work Phone: [facility] 3 DO Work Phone: 01-29-2023 13:51-0400 Body temperature 97.9 [degF] Nael Farias Work Phone: [facility] 3 DO Work Phone: 01-29-2023 13:51-0400 Body weight 120.66 kg Nael Farias Work Phone: [facility] 3 DO Work Phone: 01-29-2023 13:51-0400 Diastolic blood pressure 84 mm[Hg] Nael Farias Work Phone: [facility] 3 DO Work Phone: 01-29-2023 13:51-0400 Heart rate 72 /min Nael Farias Work Phone: [facility] 3 DO Work Phone: 01-29-2023 13:51-0400 Systolic blood pressure 138 mm[Hg] Nael Farias Work Phone: [facility] 3 DO Work Phone: 12-20-2022 10:45-0400 Diastolic blood pressure 98 mm[Hg] Nael Farias Work Phone: [facility] 2099 DO Work Phone: 12-20-2022 10:45-0400 Heart rate 82 /min Nael Farias Work Phone: [facility] 2099 DO Work Phone: 12-20-2022 10:45-0400 SaO2% (BldA) [Mass fraction] 98 % Nael Farias Work Phone: [facility] 2099 DO Work Phone: 12-20-2022 10:45-0400 Systolic blood pressure 134 mm[Hg] Nael Farias Work Phone: [facility] 2099 DO Work Phone: 12-28-2021 10:15-0400 Body height 182.88 cm Nael Farias Work Phone: [facility] 2099 DO Work Phone: 12-28-2021 10:15-0400 Body mass index (BMI) [Ratio] 36.21 kg/m2 Nael Farias Work Phone: [facility] 2099 DO Work Phone: 12-28-2021 10:15-0400 Body surface area Derived from formula 2.41 m2 Nael Farias Work Phone: [facility] 2099 DO Work Phone: 12-28-2021 10:15-0400 Body weight 121.11 kg Nael Farias Work Phone: [facility] 2099 DO Work Phone: 12-28-2021 10:15-0400 Diastolic blood pressure 94 mm[Hg] Nael Brownevelyn Work Phone: [facility] 2099 DO Work Phone: 12-28-2021 10:15-0400 Systolic blood pressure 140 mm[Hg] Nael Brownevelyn Work Phone: [facility] 2099 DO Work Phone: 11-08-2021 10:18-0500 Body height 182.88 cm Nael Brownevelyn Work Phone: [facility] 3 DO Work Phone: 11-08-2021 10:18-0500 Body mass index (BMI) [Ratio] 36.48 kg/m2 Nael Farias Work Phone: [facility] 3 DO Work Phone: 11-08-2021 10:18-0500 Body surface area Derived from formula 2.42 m2 Nael Brownevelyn Work Phone: [facility] 3 DO Work Phone: 11-08-2021 10:18-0500 Body temperature 97 [degF] Nael Brownevelyn Work Phone: [facility] 3 DO Work Phone: 11-08-2021 10:18-0500 Body weight 122.02 kg Nael Farias Work Phone: [facility] 3 DO Work Phone: 11-08-2021 10:18-0500 Diastolic blood pressure 82 mm[Hg] Nael Farias Work Phone: [facility] 3 DO Work Phone: 11-08-2021 10:18-0500 Heart rate 72 /min Nael Farias Work Phone: [facility] 3 DO Work Phone: 11-08-2021 10:18-0500 Systolic blood pressure 130 mm[Hg] Nael Farias Work Phone: [facility] 3 DO Work Phone: 05-21-2021 11:28-0400 Body height 182.88 cm Nael Farias Work Phone: [facility] 2099 DO Work Phone: 05-21-2021 11:28-0400 Body mass index (BMI) [Ratio] 35.8 kg/m2 Nael Farias Work Phone: [facility] 2099 DO Work Phone: 05-21-2021 11:28-0400 Body surface area Derived from formula 2.4 m2 Nael Farias Work Phone: [facility] 2099 DO Work Phone: 05-21-2021 11:28-0400 Body weight 119.75 kg Nael Farias Work Phone: [facility] 2099 DO Work Phone: 05-21-2021 11:28-0400 Diastolic blood pressure 90 mm[Hg] Nael Farias Work Phone: [facility] 2099 DO Work Phone: 05-21-2021 11:28-0400 Systolic blood pressure 142 mm[Hg] Nael Farias Work Phone: [facility] 2099 DO Work Phone: 08-02-2019 12:54-0500 BMI (Body Mass Index) 32.98 kg/m2 Christopher Neha YN-Nhmofmhtj-Cfhqj an Work Phone: 08-02-2019 12:54-0500 Body Temperature 96.62 [degF] Christopher Neha UN-Atzzdkild-Oy idm an Work Phone: 08-02-2019 12:54-0500 Body weight 110.31 kg Christopher Neha BL-Wmvmputci-Qea dm an Work Phone: 08-02-2019 12:54-0500 BP Diastolic 76 mm[Hg] Christopher Neha EF-Wylehenby-Uro dm an Work Phone: 08-02-2019 12:54-0500 BP Systolic 117 mm[Hg] Christopher Neha HW-Itomwfmga-Vcd dm an Work Phone: 08-02-2019 12:54-0500 BSA (Body Surface Area) 2.31 m2 Christopher Neha YL-Ktfjjcxoo-Fejnr an Work Phone: 08-02-2019 12:54-0500 Height 182.88 cm Christopher Neha TC-Gxnfrfhml-Zgx dm an Work Phone: 08-02-2019 12:54-0500 Pulse (Heart Rate) 79 /min Christopher Neha MG-Neurology- [place] Work Phone: 08-02-2019 12:54-0500 Pulse Oximetry 100 % Christopher Neha VN-Ilddyvbjm-Xfs dm an Work Phone: 08-02-2019 12:54-0500 Respiratory Rate 16 /min Christopher Neha BL-Tvwltrmri-Ss idm an Work Phone: 08-02-2019 12:54-0500 0 1 Christopher Neha BZ-Tiohrlkyl-Juz dm an Work Phone: Comment on above: Pain Scale 07-26-2019 11:44-0500 BMI (Body Mass Index) 33.12 kg/m2 Christopher Neha UA-Xgobcplzh-Giuyz an Work Phone: 07-26-2019 11:44-0500 Body Temperature 96.3 [degF] Christopher Neha BV-Ctyfybpqv-Zn idm an Work Phone: 07-26-2019 11:44-0500 Body weight 110.76 kg Christopher Neha UB-Ywbkxtwnd-Mfa dm an Work Phone: 07-26-2019 11:44-0500 BP Diastolic 75 mm[Hg] Christopher Neha MX-Qtequhrnt-Dsl dm an Work Phone: 07-26-2019 11:44-0500 BP Systolic 128 mm[Hg] Christopher Neha JZ-Nhumxttuz-Tot dm an Work Phone: 07-26-2019 11:44-0500 BSA (Body Surface Area) 2.32 m2 Christopher Neha TV-Bltslopai-Oqbwe an Work Phone: 07-26-2019 11:44-0500 Height 182.88 cm Christopher Neha KB-Jlxcjmpsr-Ptr dm an Work Phone: 07-26-2019 11:44-0500 Pulse (Heart Rate) 85 /min Christopher Neha MG-Neurology- [place] Work Phone: 07-26-2019 11:44-0500 Pulse Oximetry 100 % Christopher Neha QE-Dflnjbabg-Ose dm an Work Phone: 07-26-2019 11:44-0500 Respiratory Rate 16 /min Christopher Neha HH-Vpjsbrtdh-Rb idm an Work Phone: 07-26-2019 11:44-0500 3 1 Christopher Neha CV-Uecmebbzs-Ndu dm an Work Phone: Comment on above: Pain Scale Encounters Encounter Date Encounter Type Care Provider Facility Start: 09-09-2023 End: 09-09-2023 Office outpatient visit 25 minutes Sandra Cole MD Work Phone: [facility] Comment on above: Hypogammaglobulinemi a (CMS/HCC) (Primary Dx); CVID (common variable immunodeficiency) (CMS/HCC) Start: 08-13-2023 End: 08-14-2023 ambulatory ANIRUDH SEARS [facility] Start: 08-13-2023 End: 08-13-2023 Office outpatient visit 15 minutes Anirudh Sears MD Work Phone: [facility] Comment on above: Hypogammaglobulinemi a ([facility]/HCC) Start: 07-16-2023 End: 07-16-2023 ambulatory NOHELIA MACHADO Not Available Start: 05-29-[address] Nael Farias Facility: Start: 04-07-2023 Rx Renewal Nael Stout er Work Phone: [facility] 3 DO Work Phone: Start: 02-25-2023 AUDIT Nael Stout er Work Phone: [facility] Work Phone: Start: 02-20-2023 Current tobacco non- user cad cap copd pv dm Nael Farias Work Phone: [facility] Work Phone: Start: 02-20-[address] Fab Clark Faci lity:[id number] Start: 01-29-2023 Office outpatient vi sit 25 minutes Nael Farias Work Phone: [facility] 3 DO Work Phone: Start: 01-29-[address] Nael Farias Facility: Start: 01-22-[address] Nael Farias Facility:[facility] Start: 01-02-2023 End: 01-03-2023 ambulatory SANDRA COLE Facility:H1 Start: 12-20-2022 Office outpatient vi sit 15 minutes Nael Farias Work Phone: CC-Blobdbiexi-Oavmj [place]uis m 2100 DO Work Phone: Start: 12-20-2022 Patient encounter procedure Ed scott Farias Work Phone: MU-Jgnpfmspgg-Cqzun [place] [facility] 2100 DO Work Phone: Start: 12-20-[address] Nael Farias Facility:[id number] Start: 10-22-2022 Rx Renewal Nael Stout er Work Phone: -[facility] 250 DO Work Phone: Start: 10-15-2022 End: 10-16-[address] NAEL FARIAS . Facility:H1 Start: 10-11-2022 End: 10-12-[address] DOCTOR CHÁVEZ Facility:H1 Start: 10-10-2022 ambulatory Anirudh Sears Facility:[facility] Start: 09-27-2022 End: 09-28-[address] DOCTOR CHÁVEZ Facility:H1 Start: 08-15-2022 ambulatory Anirduh Sears Facility:[facility] Start: 08-15-2022 ambulatory Anirudh Sears Faci lity:[id number] Start: 08-12-2022 End: 08-13-[address] DOCTOR CHÁVEZ Facility:H1 Start: 07-18-2022 End: 07-19-[address] DOCTOR CHÁVEZ Facility:H1 Start: 07-16-[address] Nael Farias Facility:[id number] Start: 06-13-2022 End: 06-13-2022 ambulatory Victor Hugo Farrell Facility:[facility] Start: 06-11-2022 End: 06-11-2022 ambulatory Victor Hugo Bud Facility:[facility] Start: 06-11-2022 End: 06-11-2022 ambulatory MD Nael Farias Work Phone: [facility] Work Phone: Start: 06-11-2022 End: 06-11-2022 Patient encounter procedure MD Nael Farias Work Phone: [facility] Ffw-Wtf-Eoxqhrsr Testing Start: 04-01-2022 End: 04-02-[address] NAEL FARIAS . Facility:H1 Start: 02-21-[address] Nael Farias Facility:[id number] Start: 02-20-2022 End: 02-21-[address] DOCTOR CHÁVEZ Facility:H1 Start: 12-28-2021 Office outpatient vi sit 15 minutes Nael Farias Work Phone: FX-Ygdfxtrfdj-Ulpuy luis m 2100 DO Work Phone: Start: 12-28-2021 Patient encounter procedure Ed chavez Jaquan Farias Work Phone: ZP-Nywznqnzel-Xfzjf [place]uis m 2100 DO Work Phone: Start: 11-14-[address] Nael Farias Facility:[id number] Start: 11-08-2021 Office outpatient vi sit 25 minutes Nael Partida Andrea Work Phone: MP-[facility] [place] 3 DO Work Phone: Start: 05-22-2021 Chart Update Nael Stout er Work Phone: FI-Hgmtztzjwn-Tamsy [place] m 2100 DO Work Phone: Start: 05-21-2021 Patient encounter procedure Ed chavez Jaquan Farias Work Phone: CO-Trpxhqmzsy-Otjop luis m 2100 DO Work Phone: Start: 08-02-2019 Patient encounter procedure Christopher Ra shidi UU-Qcdoibubb-Ftfhog n Work Phone: Start: 07-26-2019 Patient encounter procedure Christopher Ra shidi DQ-Ltmnthghc-Rqjmwl n Work Phone: Start: 04-08-2019 Patient encounter procedure Edward H emeyer SD-Qfvsigdtizjrb-Ws [place] B102 Work Phone: Start: 03-08-2019 Patient encounter procedure Edward H emeyer HK-Diniplsocpflk-Jd [place] B102 Work Phone: Start: 07-08-2018 Patient encounter procedure Edward H emeyer OD-Ljojxmcvjsjon-Ad [place] B102 Work Phone: Start: 03-13-2018 Patient encounter procedure Edward H emeyer WN-Svbokmhlgxcxv-Ep [place] B102 Work Phone: Start: 12-17-2017 Patient encounter procedure Edward H emeyer ID-Wwodgfulkelwd-Qy [place] B102 Work Phone: Start: 09-19-2017 Patient encounter procedure Nael valera YK-Lzkwmjiaprcnq-Ck sofie B102 Work Phone: Procedures Date Procedure Procedure Detail Performing Clinician Start: 06-13-2022 Colonoscopy Anirudh Sears MD Work Phone: Start: 08-02-2019 Assay of blood/uric acid Christopher Neha Start: 08-02-2019 Assay of parathormone A rash Neha Start: 08-02-2019 Assay of phosphorus inorganic Christopher Neha Start: 08-02-2019 Basic metabolic 1998 panel - Serum or Plasma Christopher Neha Start: 07-28-2019 Basic metabolic 1998 panel - Serum or Plasma Christopher Neha Start: 07-26-2019 25 hydroxy includes fractions if performed Christopher Neha Start: 07-26-2019 Assay of blood/uric acid Christopher Neha Start: 07-26-2019 Assay of parathormone A rash Neha Start: 07-26-2019 Assay of phosphorus inorganic Christopher Neha Start: 07-26-2019 Basic metabolic 1998 panel - Serum or Plasma Christopher Neha Start: 07-26-2019 Creatinine other source Christopher Neha Start: 07-26-2019 Protein total xcpt refractometry urine Christopher Neha Start: 07-26-2019 Ultrasound Kidney Bilateral Christopher Neha Start: 07-26-2019 Urnls dip stick/tabl et rgnt auto w/o microscopy Christopher Neha Start: 12-23-2017 Lipid 1996 panel - S eulalio or Plasma Anirudh Sears MD Work Phone: Fasciotomy of foot Nael ng SARS Antigen (LFIA) MD Solis Farias Work Phone: Plan of Treatment Date Care Activity Detail Author Start: 06-13-2032 Screening for malignant neoplasm of colon [facility] Start: 08-16-2024 End: 08-16-2024 Patient encounter procedure 08/16/2024 10:40 AM EST Office Visit [facility] [address] [place] [address] [place] [address] [place] [address] [facility] Start: 11-27-2023 End: 11-27-2023 Patient encounter procedure 11/27/2023 12:20 PM EDT Office Visit [facility] [address] [place] [address] [place] [address] [place] [address] [facility] Start: 10-20-2023 End: 10-20-2023 Patient encounter procedure 10/20/2023 3:00 PM EST Office Visit [facility] [address] [facility] [address] [place] [id number] Sandra Cole MD [address] [facility] [address] [place] [address] [facility] Start: 09-09-2023 End: 09-09-2024 Immunoglobulins (IgG, IgA, IgM) Immunoglobulins (IgG, IgA, IgM) Lab Routine CVID (common variable immunodeficiency) (CMS/HCC) Expected: 09/09/2023 (Approximate), Expires: 09/09/2024 [facility] Service Area Work Phone: Comment on above: Expected: 09/09/2023 (Approximate), Expires: 09/09/2024 Start: 08-12-2023 End: 08-11-2024 CBC W Auto Differential panel - Blood CBC and Auto Differential Lab Routine Hypogammaglobulinemia (CMS/HCC) Expected: 08/12/2023 (Approximate), Expires: 08/11/2024 [facility] Service Area Work Phone: Comment on above: Expected: 08/12/2023 (Approximate), Expires: 08/11/2024 Start: 08-12-2023 End: 08-11-2024 Comprehensive metabolic 2000 panel - Serum or Plasma Comprehensive Metabolic Panel Lab Routine Hypogammaglobulinemia (CMS/HCC) Expected: 08/12/2023 (Approximate), Expires: 08/11/2024 [facility] Work Phone: Comment on above: Expected: 08/12/2023 (Approximate), Expires: 08/11/2024 Start: 08-12-2023 End: 08-11-2024 Lactate dehydrogenase [Enzymatic activity/volume] in Serum or Plasma by Lactate to pyruvate reaction Lactate dehydrogenase Lab Routine Hypogammaglobulinemia (CMS/HCC) Expected: 08/12/2023 (Approximate), Expires: 08/11/2024 [facility] Work Phone: Comment on above: Expected: 08/12/2023 (Approximate), Expires: 08/11/2024 Start: 08-09-2023 COVID-19 Vaccine (4 - Pfizer risk series) COVID-19 Vaccine (4 - Pfizer risk series) [facility] Start: 05-29-2023 FUV, Provider: Christopher Watkins, Status: Pen, Time: 12:50 PM FUV, Provider: Christopher Watkins, Status: Pen, Time: 12:50 PM [facility] 3 DO Work Phone: Start: 01-23-2023 FUV, Provider: Christopher Watkins, Status: Pen, Time: 11:10 AM FUV, Provider: Christopher Watkins, Status: Pen, Time: 11:10 AM EN-Gjfcjubnna-[place] 2100 DO Work Phone: Start: 01-21-2023 FUV, Provider: Christopher Watkins, Status: Pen, Time: 1:00 PM FUV, Provider: Christopher Watkins, Status: Pen, Time: 1:00 PM [facility] 250 DO Work Phone: Start: 12-23-2022 Lipid panel Lipid Panel [facility] Start: 07-02-2022 Diabetes mellitus screening Diabetes Screening [facility] Start: 03-12-2022 FUV, Provider: Christopher Watkins, Status: Pen, Time: 2:10 PM FUV, Provider: Christopher Watkins, Status: Pen, Time: 2:10 PM [facility] 3 DO Work Phone: Start: 11-08-2021 FUV, Provider: Christopher Watkins, Status: Pen, Time: 10:00 AM FUV, Provider: Christopher Watkins, Status: Pen, Time: 10:00 AM HS-Cyrxyldoxk-Cnq [place] 2100 DO Work Phone: Start: 07-27-2019 Ultrasound Kidney Bilat eral ZC-Qvglkfkzm-Jcbe man Work Phone: Start: 1982 DTaP/Tdap/Td Vaccine s (1 - Tdap) DTaP/Tdap/Td Vaccines (1 - Tdap) [facility] Start: 11-16-1979 Zoster Vaccines (1 o f 2) Zoster Vaccines (1 of 2) [facility] Start: 1966 Pneumococcal Vaccine : Pediatrics (0 to 5 Years) and At-Risk Patients (6 to 64 Years) (1 - PCV) Pneumococcal Vaccine: Pediatrics (0 to 5 Years) and At-Risk Patients (6 to 64 Years) (1 - PCV) [facility] Start: 1960 HIV screening HIV Screening [facility] Start: 1960 Medicare Annual Wellness Visit Medicare Annual Wellness Visit (AWV) [facility] Start: 1960 Screening for malignant neoplasm of colon [facility] ZC-Ebjnvlzdq-Lc id man Work Phone: NEGATED: Highlighted row has been ruled out! Planned Goals not documented MG-Neurolog y-Berto man Work Phone: Immunizations Immunization Date Immunization Notes Care Provider Fa cilicammy 08-27-2022 Pfizer COVID-19 vaccine, bivalent, age 12 years and older (30 mcg/0.3 mL) Anirudh Sears MD Work Phone: [facility] Work Phone: 08-18-2022 influenza, injectabl e, quadrivalent, preservative free Anirudh Sears MD Work Phone: [facility] Work Phone: 01-01-2022 Pfizer Newman Cap SARS-CoV-2 Anirudh Sears MD Work Phone: [facility] Work Phone: 11-16-2020 Pfizer-BioNTech COVID-19 Vacc 30 MCG/0.3ML Intramuscular Suspension Nael Partida Stephanieevelyn Work Phone: [facility] 3 DO Work Phone: 02-08-2020 measles, mumps and rubella virus vaccine Nael Partida Andrea Work Phone: [facility] 3 DO Work Phone: Payers Date Payer Category Payer Self-pay [id number] 2021 Medicare ANTHEM MEDICARE ANTHEM MEDICARE ADVANTAGE [id number] 2021-Present [address] [place] [address] [id number] 1960 Unknown [id number] 2.16.840.1.711442.3.579.2. 1069 1960 Unknown [id number] 2.16.840.1.431728.3.579.2. 1069 1960 Unknown [id number] 2.16.840.1.551965.3.579.2. 1069 1960 Unknown [id number] 2.16.840.1.393495.3.579.2. 593 1960 Unknown [id number] 2.16.840.1.206966.3.579.2. 593 1960 Unknown [id number] 2.16.840.1.068217.3.579.2. 593 1960 Unknown [id number] 2.16.840.1.203649.3.579.2. 593 1960 Unknown [id number] 2.16.840.1.693509.3.579.2. 593 1960 Unknown [id number] 2.16.840.1.440036.3.579.2. 593 1960 Unknown [id number] 2.16.840.1.189477.3.579.2. 593 1960 Unknown [id number] 2.16.840.1.879228.3.579.2. 593 1960 Unknown [id number] 2.16.840.1.624631.3.579.2. 1046 1960 Unknown [id number] 2.16.840.1.670233.3.579.2. 356 1960 Unknown [id number] 2.16.840.1.050830.3.579.2. 356 1960 Unknown [id number] 2.16.840.1.709677.3.579.2. 356 1960 Unknown [id number] 2.16.840.1.582019.3.579.2. 356 1960 Unknown [id number] 2.16.840.1.221399.3.579.2. 356 1960 Unknown [id number] 2.16.840.1.839933.3.579.2. 356 1960 Unknown [id number] 2.16.840.1.771010.3.579.2. 356 1960 Unknown [id number] 2.16.840.1.168121.3.579.2. 1259 1960 Unknown [id number] 2.16.840.1.422492.3.579.2. 1245 1959 Medicare [id number] Private Health Insurance [place] [facility] [id number] Unknown Unknown O [id number] Unknown Aranza BC/BS [id number] Unknown [id number] Unknown [id number] Social History Date Type Detail Facility Start: 08-13-2023 End: 09-09-2023 Never a smoker Never a smoker [facility]-Ezjykrfzmo-Pkpyip k e 2100 DO Work Phone: Start: 1960 Sex Assigned At Male [facility] Start: 08-13-2023 Tobacco smoking status NHIS Never smoked tobacco [facility] History of tobacco use Passive smoker [facility] Work Phone: Start: 08-13-2023 Tobacco use and exposure Smokeless tobacco non-user [facility] Work Phone: Start: 08-13-2023 End: 09-09-2023 Alcohol intake Lifetime non-drinker (finding) [facility] Work Phone: Start: 08-13-2023 End: 09-09-2023 Tobacco use panel [facility] Work Phone: Start: 1960 Sex Assigned At Not on file [facility] Work Phone: Start: 08-03-2023 End: 08-13-2023 Exposure to SARS-CoV-2 (event) Not sure [facility] NEGATED: Highlighted row - - OU[facility] [address] Work Phone: Functional Status Date Assessment Result Facility NEGATED: Highlighted row Functional performance Functional status health issues are not documented Disease BT-Hspdvvytjejfa[facility] [place] [facility] Work Phone: Mental Status Date Assessment Result Facility NEGATED: Highlighted row Cognitive function [Interpretation] Cognitive status health issues are not documented Disease YT-Emzslftgrvbbq-[place] [place] [facility] Work Phone: Clinical Notes 09-06-2020 to 09-10-2023 Assessment & Plan Note - Sandra Cole MD - 09/10/2023 8:46 AM ESTAssessment & Plan Note - Sandra Cole MD - 09/10/2023 8:46 AM Roque Cole MD - 09/09/2023 5:15 PM EST Note Date & Type Note Facility 09-10-2023 Evaluation + Plan note Associated Problem(s): Asthma Patient states the cost of his Arnuity went up dramatically this year. He is unable to afford the $42 a month co-pay. Therefore, I am going to try to change him to a lower cost inhaler. I am also going to ask my staff to send him co-pay assistance through [employer]. According to the patient his primary care recommended albuterol 2 inhalations twice a day as a maintenance and then every 4 hours as needed, but I am concerned about him developing tolerance to the albuterol and not having his underlying inflammation treated with a maintenance medication. Therefore I am going to attempt to get a covered inhaled corticosteroid for maintenance. [facility] Work Phone: 09-10-2023 Miscellaneous Notes Associated Problem(s): Asthma Patient states the cost of his Arnuity went up dramatically this year. He is unable to afford the $42 a month co-pay. Therefore, I am going to try to change him to a lower cost inhaler. I am also going to ask my staff to send him co-pay assistance through [employer]. According to the patient his primary care recommended albuterol 2 inhalations twice a day as a maintenance and then every 4 hours as needed, but I am concerned about him developing tolerance to the albuterol and not having his underlying inflammation treated with a maintenance medication. Therefore I am going to attempt to get a covered inhaled corticosteroid for maintenance. Associated Problem(s): CVID (common variable immunodeficiency) ([facility]) Unfortunately, this is an insurance nightmare. His benefits have changed. I am going to ask my staff to look into what the actual issue is. He is willing to go to IVIG monthly which is probably his best bet. Unfortunately he does live some distance away. We will try to coordinate care with [facility]. Due to his kidney disease I do not really feel that IV is the best option, but under the circumstances IV is better than nothing. documented in this encounter [facility] Work Phone: 09-10-2023 Evaluation + Plan note Associated Problem(s): CVID (common variable immunodeficiency) ([facility]) Unfortunately, this is an insurance nightmare. His benefits have changed. I am going to ask my staff to look into what the actual issue is. He is willing to go to IVIG monthly which is probably his best bet. Unfortunately he does live some distance away. We will try to coordinate care with [facility]. Due to his kidney disease I do not really feel that IV is the best option, but under the circumstances IV is better than nothing. [facility] Work Phone: 09-09-2023 History of Presen t illness Narrative Subjective Katerina Danielle is a 62 y.o. male who presents for Follow-up and Immunotherapy (Would like to discuss new medication). Chief Complaint Patient presents with Follow-up Immunotherapy Would like to discuss new medication Since last visit, 12/20/2022, patient reports his benefits changed 2 weeks before last month's infusion. His last infusion was 07/30/2023. They notified him 08/12/2023 that he was switched to [place] who never contacted him despite him calling them twice. When they called him, they told him it would cost $2500 a month and that did not include his pump and supplies. He states his stomach feels better than ever after 2 years on HyQvia compared to tender and sore prior. He is fine with going back to IVIG. Patient did test positive for COVID at [facility] and again on 08/27/2023. He and his have researched the last 2 weeks and is asking if his immune system could have healed over this time period. He was doing IVIG every 6 weeks at home instead of every 4. He is willing to try this and will let us know if he gets sick. Patient also asked if Gammagard subcu weekly but he cannot do this. Patient states his medications and copays have increased in [place]. He reports Arnuity was increased from $12 to $42 because it was switched to Tier 3. He states this is a generic. He was switched to albuterol inhaler 2 inhalations every 4 hours but he is planning on using it 2 puffs a day. Physical Exam Constitutional: Appearance: Normal appearance. HENT: Head: Normocephalic and atraumatic. Eyes: Extraocular Movements: Extraocular movements intact. Conjunctiva/sclera: Conjunctivae normal. Pupils: Pupils are equal, round, and reactive to light. Pulmonary: Effort: Pulmonary effort is normal. Musculoskeletal: Cervical back: Normal range of motion. Skin: Findings: No rash. Neurological: Mental Status: He is alert and oriented to person, place, and time. Mental status is at baseline. Psychiatric: Mood and Affect: Mood normal. Behavior: Behavior normal. Thought Content: Thought content normal. Judgment: Judgment normal. Assessment/Plan CVID (common variable immunodeficiency) ([facility]) Unfortunately, this is an insurance nightmare. His benefits have changed. I am going to ask my staff to look into what the actual issue is. He is willing to go to IVIG monthly which is probably his best bet. Unfortunately he does live some distance away. We will try to coordinate care with [facility]. Due to his kidney disease I do not really feel that IV is the best option, but under the circumstances IV is better than nothing. Asthma Patient states the cost of his Arnuity went up dramatically this year. He is unable to afford the $42 a month co-pay. Therefore, I am going to try to change him to a lower cost inhaler. I am also going to ask my staff to send him co-pay assistance through [employer]. According to the patient his primary care recommended albuterol 2 inhalations twice a day as a maintenance and then every 4 hours as needed, but I am concerned about him developing tolerance to the albuterol and not having his underlying inflammation treated with a maintenance medication. Therefore I am going to attempt to get a covered inhaled corticosteroid for maintenance. By signing my name below, I, Marlene Curielibe, attest that this documentation has been prepared under the direction and in the presence of Sandra Cole MD. All medical record entries made by the Scribe were at my direction and personally dictated by me. I have reviewed the chart and agree that the record accurately reflects my personal performance of the history, physical exam, discussion and plan. documented in this encounter [facility] Work Phone: 09-09-2023 Instructions Carolyn Morrison - 09/09/2023 5:15 PM EST Obtain blood work to check IgG, IgA and IgM levels. We will call you with results, recommendations and followup plan. Compare QVAR to Arnuity. Use albuterol only as needed. I will let you know what our plan is for your infusions. documented in this encounter [facility] Work Phone: 08-13-2023 History of Presen t illness Narrative Patient ID: Katerina Danielle is a 62 y.o. male. Cancer History: Treatment Synopsis: Mr. Katerina Danielle is a 62 yo M with no significant past medical history except for migraine headaches who was referred from Dr. 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 He was well until Sep 2015 occasional migraine headaches before that when he developed what seemed like a sinus infection and was treated with antibiotics and steroids. He continued to have severe throat pain, fever, and severe facial pain. He was seen by Neurology and treated for migraine headaches without any relief. He was then evaluated by ENT and underwent a nasal endoscopy which noted sphenoid sinus fullness but found no mass initially--. 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 He was referred to Dr. Rodriguez in oncology at [facility] for evaluation. 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 Bone marrow biopsy was done which was negative for involvement with lymphoma . He also underwent an LP with low yield. Because of his meningeal enhancement and location close to [employer], he was treated with hyperCVAD-MA. He received 4 cycles of hyperCVAD (last cycle 05/2016) with CR. 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 Pathology report: NOTE: The lymphoma is difficult to classify. It is composed predominantly of medium-sized irregular cells with condensed chromatin with some large cells that are CD5 and CD10 positive. Cyclin D1 was negative. There is evidence of plasmacytic differentiation as a small subset of plasmacytic cells are light chain restricted. The cells demonstrate a Ki-67 proliferation fraction of 50%.The main differential diagnosis includes a cyclin D1 negative mantle cell lymphoma and an unusual marginal zone lymphoma. The number of large cells does not appear to be great enough for a diagnosis of large B cell lymphoma. Nonetheless, with the presence of some large cells and a relatively brisk Ki-67 fraction the lesion may act more aggressively than a low-grade B cell lymphoma. Sox11 staining as well as heavy chain stains and molecular studies are pending to help in the classification of the process. Clinical correlation is suggested. The current biopsy was compared to this patient's previous biopsy ([id number]). The previous biopsy demonstrated areas of necrosis and apoptosis with cells that are more clearly large cells, features not seen, or clearly identified, in the current specimen. Nonetheless, the CD5 positivity and lambda expression is the same although CD10 and CD26 expression are different (CD10 expression may have been very very weak in the previous biopsy in retrospect). Given the findings, the processes are likely related although demonstrating different morphology. Relatedness is difficult to determine with certainty without molecular studies. 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 The patient was enrolled on [id number], Venetoclax+RICE. Cycle 1 started 10/29/17. Had tumor lysis with cycle 1 due to which venetoclax had to be stopped. Recovered with supportive therapy, renal function returned to baseline. Received 2 cycles. Admission January 06-2017, for autologous SCT with BEAM preparative regimen. T=0 January 12, 2018. Hospitalization complicated by fluid overload requiring diuretics, anorexia, nausea, mucositis, C diff negative diarrhea. 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 The patient was recently readmitted to [facility] (06/16-06/18/18) for fever and PNA. 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 He completed by mouth Levaquin. The patient was admitted to [facility] (08/18-08/21/18) with a new PE. He was started on renally dosed Lovenox. He reported bruising with some bleeding at the site of his Lovenox injections. He feels that the Lovenox made his pelvic pain worse. He was not willing to take further Lovenox and discontinued his injections (without discussion with our office) as of 08/31/18. He then was prescribed Xarelto and was only taking this intermittently because of headaches. 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 He initiated therapy on clinical research trial ADCT 1418. He was scheduled to receive C3 (09/04/18) but unable due to a persistently elevated GGT. CAR T Cell infusion 01/04/19 with tisagenlecleucel ([facility]) with preparative regimen of fludarabine and cytoxan. Subjective HPI Mr. Katerina Danielle is a 62 y/o M who presents for follow-up for his diffuse large b-cell, s/p CAR-T treatment. Patient had blood work done at an outside of hospital on 08/11/2023. At that time, his creatinine was elevated but stable at 1.63. Platelets 124,000. Since last visit, patient reports that he had COVID 3 weeks ago with high fevers, headaches and nausea, vomiting and diarrhea. States that he is feeling better now with no new infections, fevers or chills or new GI issues. Denies any new chest pain, cough or shortness of breath. Denies any new lumps or bumps. No other complaints today. Patient's past medical history, surgical history, family history and social history reviewed. Objective Vitals: 08/13/23 1115 BP: 115/78 Pulse: 70 Resp: 16 Temp: 36.3 C (97.3 F) SpO2: 98% Review of Systems: Review of Systems: Positive per HPI, otherwise negative. Physical Exam: Constitutional: Patient appears in no acute distress. Sitting comfortably in chair. Eyes: EOMI, clear sclera ENMT: mucous membranes moist, no apparent injury Head/Neck: Neck supple, no JVD Respiratory/Thorax: Patent airways, CTAB, normal breath sounds, no increased work of breathing Cardiovascular: Regular, rate and rhythm, no murmurs Gastrointestinal: Nondistended, soft, non-tender, no rebound tenderness or guarding, no masses palpable Extremities: normal extremities, no cyanosis edema, no swelling Neurological: alert and oriented x3, nonfocal, normal speech and hearing Lymphatic: No palpable lymphadenopathy in cervical, axillary lymph nodes. Spleen appears normal size. Psychological: Appropriate mood and behavior, normal affect Skin: Warm and dry, no lesions, no rashes Performance Status: Symptomatic; fully ambulatory Labs/Imaging/Pathology: personally reviewed reports and images in [facility] electronic medical record system. Pertinent results as it related to the plan represented in below in assessment and plan. Assessment/Plan 1. 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, with possible [employer] extension - S/p 4 cycles of hyperCVAD-MA - Post-treatment imaging showed resolution of the sphenoid mass as well as two abnormalities: mediastinal artifact at site of infusion and pulmonary uptake on PET that was related to infection - He recurred in 10/2017 with a large L renal mass - S/p 2 cycles of V+RICE on clinical trial CASE 2415 - He is s/p autologous sct with BEAM preparative regimen (T0=01/12/18). - He was again found to have recurrence of his lymphoma and was treated on clinical research trial ADCT 1418. Treatment was limited due to persistently elevated GGT. The patient had PET scan 3/8/19 that showed POD. - CAR T Cell therapy: Cells given 01/04/19. Treated with tisagenlecleucel ([facility]). Preparative regimen includes Fludarabine and Cyclophosphamide 08/13/23: - Overall, no evidence of recurrence. - No lymphadenopathy. - He did have a recent COVID infection with high fevers and GI toxicity with nausea, vomiting and diarrhea. - RTC in 1 year with repeat labs. 2. Abdominal pain 3. Muscle cramps - likely also related to prior treatments - advised to start slow magnesium anywhere between 250-500 mg OTC - now improving with OTC med, will discus further pCP 4. 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 Vison changes - Likely also related to prior treatments - At this point, we did discuss that he could benefit from further evaluation with another abstract maker. Patient will consider 6. Hypogammaglobulinemia: - Restarted close to home. Much better sinus symptoms. 7. Dry eye, right worse than the left 8. Hypertension - Persistently elevated blood pressure; patient is to discuss further with his PCP 9. New onset migraines - Worsening; patient believes they may be related to his eye symptoms - Discussed that if migraines worsen further, we would plan for workup with MRI in 2 mo RTC in 1 year with repeat labs. This note has been transcribed using a medical care evaluation specialist and there is a possibility of unintentional typing misprints. Diagnoses and all orders for this visit: Hypogammaglobulinemia (CMS/HCC) - CBC and Auto Differential; Future - Comprehensive Metabolic Panel; Future - Lactate dehydrogenase; Future - Clinic Appointment Request Follow up; Future Anirudh Sears MD Hematology/Oncology [facility] Scribe Attestation By signing my name below, IBernarda Scribe attest that this documentation has been prepared under the direction and in the presence of Anirudh Sears MD. documented in this encounter [facility] Work Phone: 02-20-2023 History of Presen t illness Narrative OPIOIDOpioid Risk Screening:Opioid Risk ToolLast opioid risk screening date/ordered today: 02/20/23Patient's total score is 0, within range of Low Risk (<= 3).This 62 year old male here for evaluation of generalized cramping. The patient has been experiencing these symptoms for last 5 years. The patient describes the pain as aching and tight. The patient's current pain score is 4 on a scale from 0-10. The pain is worsened by cramping and is alleviated by walk and medications for cramp. Since the start of the symptoms the pain has been worsening.The patient denies any fever, chills, weight loss, weakness, numbness, bladder/ bowel incontinence, history of IV drug abuse, recent trauma. -[facility] Work Phone: 02-20-2023 History of Presen t illness Narrative OPIOIDOpioid Risk Screening:Opioid Risk ToolLast opioid risk screening date/ordered today: 02/20/23Patient's total score is 0, within range of Low Risk (<= 3).This 62 year old male here for evaluation of generalized cramping. The patient has been experiencing these symptoms for last 5 years. The patient describes the pain as aching and tight. The patient's current pain score is 4 on a scale from 0-10. The pain is worsened by cramping and is alleviated by walk and medications for cramp. Since the start of the symptoms the pain has been worsening.The patient denies any fever, chills, weight loss, weakness, numbness, bladder/ bowel incontinence, history of IV drug abuse, recent trauma. [facility] Work Phone: 02-20-2023 History of Presen t illness Narrative OPIOIDOpioid Risk Screening:Opioid Risk ToolLast opioid risk screening date/ordered today: 02/20/23Patient's total score is 0, within range of Low Risk (<= 3).This 62 year old male here for evaluation of generalized cramping. The patient has been experiencing these symptoms for last 5 years. The patient describes the pain as aching and tight. The patient's current pain score is 4 on a scale from 0-10. The pain is worsened by cramping and is alleviated by walk and medications for cramp. Since the start of the symptoms the pain has been worsening.The patient denies any fever, chills, weight loss, weakness, numbness, bladder/ bowel incontinence, history of IV drug abuse, recent trauma. [facility] Work Phone: 12-28-2021 History of Presen t illness Narrative Patient was last here, 12/28/2021 and he has been chronically sick attributed to his 2 granddaughters who attend school and may bring home triggers. He was having wheezing, chest/sinus congestion, chronic throat-clearing with sensation of phlegm in his throat with intermittent clear sputum and PND, but denied PNA. PCP thought it may have been bacterial. He was on antibiotics for about 2 months. One made him sick and PCP switched him to something else a couple of times because they were not working for him. He did very well after taking Cefdinir and felt great. He developed RSV and at that point, PCP referred patient to a Wom[employer] Volleyball Coach at [facility].He saw Nohelia Machado DO, Womens Volleyball Coach at [facility], did a breathing test and ordered a CXR. He was Dxd with a lung disease and started on Arnuity.Patient thinks he had his labs ordered here last visit. Patient has blood work due and routine labs and questions if he can have his IgG level done at that time.Patient's HyQvia infusions every 28 days are going well but he does have bloating and tenderness after. [facility]Cyprimil[facility]Ddumoscn 2100 DO Work Phone: 12-28-2021 History of Presen t illness Narrative Patient was last here, 12/28/2021 and he has been chronically sick attributed to his 2 granddaughters who attend school and may bring home triggers. He was having wheezing, chest/sinus congestion, chronic throat-clearing with sensation of phlegm in his throat with intermittent clear sputum and PND, but denied PNA. PCP thought it may have been bacterial. He was on antibiotics for about 2 months. One made him sick and PCP switched him to something else a couple of times because they were not working for him. He did very well after taking Cefdinir and felt great. He developed RSV and at that point, PCP referred patient to a Womens Volleyball Coach at [facility].He saw Nohelia Machado DO, Womens Volleyball Coach at [facility], did a breathing test and ordered a CXR. He was Dxd with a lung disease and started on Arnuity.Patient thinks he had his labs ordered here last visit. Patient has blood work due and routine labs and questions if he can have his IgG level done at that time.Patient's HyQvia infusions every 28 days are going well but he does have bloating and tenderness after. JQ-Bxnrtdhtap-Bosecqrg 2100 DO Work Phone: 05-21-2021 History of Presen t illness Narrative Patient was last here, 05/21/2021.Patient states he is doing well on HyQvia. He reports he bruised his right lower abdomen with the needle. He uses a heating pad during and after infusions. He has been doing infusions in the evening. He has intermittent sensation of abdominal fullness and burning when waking that resolves in a few days.His breathing is variable depending on season. He has intermittent wheeze even just sitting. If he overexerts himself, it is no better and sweats profusely to the point his shirt is drenched. He has to limit himself to 2 hours of exercising. He has gained weight due to limitations and is hoping weight loss helps. He does not use his albuterol.He saw Dr. Watkins 11/08/2021 who ordered labs. His next appointment is 03/12/2022.He takes methocarbamol for sciatic nerve pain provided by PCP.He will have his second COVID booster Friday.. [id number] 2100 DO Work Phone: 05-21-2021 History of Presen t illness Narrative Patient was last here, 05/21/2021.Patient states he is doing well on HyQvia. He reports he bruised his right lower abdomen with the needle. He uses a heating pad during and after infusions. He has been doing infusions in the evening. He has intermittent sensation of abdominal fullness and burning when waking that resolves in a few days.He has had a dramatic decrease in infections. He is doing well from that standpoint. he is tolerating the infusionsHis breathing is variable depending on season. He has intermittent wheeze even just sitting. If he overexerts himself, it is no better and sweats profusely to the point his shirt is drenched. He has to limit himself to 2 hours of exercising. He has gained weight due to limitations and is hoping weight loss helps. He does not use his albuterol.He saw Dr. Watkins 11/08/2021 who ordered labs. His next appointment is 03/12/2022.He takes methocarbamol for sciatic nerve pain provided by PCP.He will have his second COVID booster Friday.. [id number] 2100 DO Work Phone: 09-06-2020 History of Presen t illness Narrative Since last visit, 09/06/2020, patient reportsHe had his labs done at [facility] 2 weeks ago and he requested results be sent to [place] and here. Dr. Sears told her the labs were normal. Dr. Watkins said he would advise of any abnormal labs, but he never called him.He noticed onset of bumps after HyQvia S/P infusion by nurse March 2021. Since then, he does them himself but the last few months and concerned of possible hernia because they get larger. He also felt extremely bloated. He was told to apply moist heat prior to infusion, which helped with the morgan and soreness. He pretreats with prednisone. He extends the infusion time to avoid the burning that occurs with infusing too rapidly.He takes a potassium pill for hand cramping so severe at times, his wanted to call EMS. Dr. 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 Teresa 2100 DO Work Phone: Evaluation note No assessment inform ation available [facility] Work Phone: Evaluation note Diagnosis Hypogammaglobulinemia (CMS/HCC) Unspecified hypogammaglobulinemia documented in this encounter [facility] Work Phone: Evaluation note* Diagnosis Hypogammaglobulinemia (CMS/HCC)- Primary Unspecified hypogammaglobulinemia CVID (common variable immunodeficiency) ([facility]/HCC) Common variable immunodeficiency documented in this encounter [facility] Work Phone: History of Present illness NarrativeThe patient is being seen for a routine clinic follow-up of chronic kidney disease. This is classified as stage 3. Recently, the disease has been stable. Disease complications: hyperparathyroidism, but no hyperkalemia, no hypocalcemia, no hyperphosphatemia, no metabolic acidosis, no coagulopathy, no uremic encephalopathy, no neuropathy and no renal osteodystrophy. The patient is currently asymptomatic. No associated symptoms are reported.-[facility] 3 DO Work Phone: History of Present illness NarrativeThe patient is being seen for a routine clinic follow-up of chronic kidney disease. This is classified as stage 3. Recently, the disease has been stable. Disease complications: hyperparathyroidism, but no hyperkalemia, no hypocalcemia, no hyperphosphatemia, no metabolic acidosis, no coagulopathy, no uremic encephalopathy, no neuropathy and no renal osteodystrophy. The patient is currently asymptomatic. No associated symptoms are reported.-[facility] 3 DO Work Phone: Family History Grandparent Name Dates Details Family history of glaucoma(V 19.11, Z83.511) Status:Active Mother Name Dates Details Family history of Alzheimer' s disease(V17.2, Z82.0) Status:Active Family history of malignant neoplasm(V16.9, Z80.9) Status:Active Sister Name Dates Details Family history of malignant neoplasm(V16.9, Z80.9) Status:Active Brother Name Dates Details Family history of malignant neoplasm(V16.9, Z80.9) Status:Active Grandparent Name Dates Details Family history of glaucoma(V 19.11, Z83.511) Status:Active Mother Name Dates Details Family history of Alzheimer' s disease(V17.2, Z82.0) Status:Active Family history of malignant neoplasm(V16.9, Z80.9) Status:Active Sister Name Dates Details Family history of malignant neoplasm(V16.9, Z80.9) Status:Active Brother Name Dates Details Family history of malignant neoplasm(V16.9, Z80.9) Status:Active Grandparent Name Dates Details Family history of glaucoma(V 19.11, Z83.511) Status:Active Mother Name Dates Details Family history of Alzheimer' s disease(V17.2, Z82.0) Status:Active Family history of malignant neoplasm(V16.9, Z80.9) Status:Active Sister Name Dates Details Family history of malignant neoplasm(V16.9, Z80.9) Status:Active Brother Name Dates Details Family history of malignant neoplasm(V16.9, Z80.9) Status:Active Grandparent Name Dates Details Family history of glaucoma(V 19.11, Z83.511) Status:Active Mother Name Dates Details Family history of Alzheimer' s disease(V17.2, Z82.0) Status:Active Family history of malignant neoplasm(V16.9, Z80.9) Status:Active Sister Name Dates Details Family history of malignant neoplasm(V16.9, Z80.9) Status:Active Brother Name Dates Details Family history of malignant neoplasm(V16.9, Z80.9) Status:Active Grandparent Name Dates Details Family history of glaucoma(V 19.11, Z83.511) Status:Active Mother Name Dates Details Family history of Alzheimer' s disease(V17.2, Z82.0) Status:Active Family history of malignant neoplasm(V16.9, Z80.9) Status:Active Sister Name Dates Details Family history of malignant neoplasm(V16.9, Z80.9) Status:Active Brother Name Dates Details Family history of malignant neoplasm(V16.9, Z80.9) Status:Active Unknown Family Member Name Dates Details Family history of Alzheimer' s disease: Mother(V17.2, Z82.0) Status:Active Family history of malignant neoplasm: Mother, Sister, Brother(V16.9, Z80.9) Status:Active Family history of glaucoma: Grandparent(V19.11, Z83.511) Status:Active Family history of asthma: Mo ther, Father(V17.5, Z82.5) Status:Active Family history of eczema: Mo ther, Father(V19.4, Z84.0) Status:Active Seasonal allergies: Mother, Father Status:Active Unknown Family Member Name Dates Details Family history of Alzheimer' s disease: Mother(V17.2, Z82.0) Status:Active Family history of malignant neoplasm: Mother, Sister, Brother(V16.9, Z80.9) Status:Active Family history of glaucoma: Grandparent(V19.11, Z83.511) Status:Active Family history of asthma: Mo ther, Father(V17.5, Z82.5) Status:Active Family history of eczema: Mo ther, Father(V19.4, Z84.0) Status:Active Seasonal allergies: Mother, Father Status:Active Unknown Family Member Name Dates Details Family history of glaucoma: Grandparent(V19.11, Z83.511) Status:Active Family history of asthma: Mo ther, Father(V17.5, Z82.5) Status:Active Family history of eczema: Mo ther, Father(V19.4, Z84.0) Status:Active Seasonal allergies: Mother, Father Status:Active Family history of malignant neoplasm of prostate: Father(V16.42, Z80.42) Status:Active Family history of malignant neoplasm: Mother, Sister, Brother(V16.9, Z80.9) Status:Active Family history of Alzheimer' s disease: Mother(V17.2, Z82.0) Status:Active Family history of multiple m yeloma: Brother(V16.7, Z80.7) Status:Active Unknown Family Member Name Dates Details Family history of Alzheimer' s disease: Mother(V17.2, Z82.0) Status:Active Family history of malignant neoplasm: Mother, Sister, Brother(V16.9, Z80.9) Status:Active Family history of glaucoma: Grandparent(V19.11, Z83.511) Status:Active Family history of asthma: Mo ther, Father(V17.5, Z82.5) Status:Active Family history of eczema: Mo ther, Father(V19.4, Z84.0) Status:Active Seasonal allergies: Mother, Father Status:Active Family history of malignant neoplasm of prostate: Father(V16.42, Z80.42) Status:Active Family history of multiple m yeloma: Brother(V16.7, Z80.7) Status:Active Unknown Family Member Name Dates Details Family history of Alzheimer' s disease: Mother(V17.2, Z82.0) Status:Active Family history of malignant neoplasm: Mother, Sister, Brother(V16.9, Z80.9) Status:Active Family history of glaucoma: Grandparent(V19.11, Z83.511) Status:Active Family history of asthma: Mo ther, Father(V17.5, Z82.5) Status:Active Family history of eczema: Mo ther, Father(V19.4, Z84.0) Status:Active Seasonal allergies: Mother, Father Status:Active Family history of malignant neoplasm of prostate: Father(V16.42, Z80.42) Status:Active Family history of multiple m yeloma: Brother(V16.7, Z80.7) Status:Active Unknown Family Member Name Dates Details Family history of Alzheimer' s disease: Mother(V17.2, Z82.0) Status:Active Family history of malignant neoplasm: Mother, Sister, Brother(V16.9, Z80.9) Status:Active Family history of glaucoma: Grandparent(V19.11, Z83.511) Status:Active Family history of asthma: Mo ther, Father(V17.5, Z82.5) Status:Active Family history of eczema: Mo ther, Father(V19.4, Z84.0) Status:Active Seasonal allergies: Mother, Father Status:Active Family history of malignant neoplasm of prostate: Father(V16.42, Z80.42) Status:Active Family history of multiple m yeloma: Brother(V16.7, Z80.7) Status:Active Unknown Family Member Name Dates Details Family history of Alzheimer' s disease: Mother(V17.2, Z82.0) Status:Active Family history of malignant neoplasm: Mother, Sister, Brother(V16.9, Z80.9) Status:Active Family history of glaucoma: Grandparent(V19.11, Z83.511) Status:Active Family history of asthma: Mo ther, Father(V17.5, Z82.5) Status:Active Family history of eczema: Mo ther, Father(V19.4, Z84.0) Status:Active Seasonal allergies: Mother, Father Status:Active Family history of malignant neoplasm of prostate: Father(V16.42, Z80.42) Status:Active Family history of multiple m yeloma: Brother(V16.7, Z80.7) Status:Active Unknown Family Member Name Dates Details Family history of Alzheimer' s disease: Mother(V17.2, Z82.0) Status:Active Family history of malignant neoplasm: Mother, Sister, Brother(V16.9, Z80.9) Status:Active Family history of glaucoma: Grandparent(V19.11, Z83.511) Status:Active Family history of asthma: Mo ther, Father(V17.5, Z82.5) Status:Active Family history of eczema: Mo ther, Father(V19.4, Z84.0) Status:Active Seasonal allergies: Mother, Father Status:Active Family history of malignant neoplasm of prostate: Father(V16.42, Z80.42) Status:Active Family history of multiple m yeloma: Brother(V16.7, Z80.7) Status:Active Unknown Family Member Name Dates Details Family history of Alzheimer' s disease: Mother(V17.2, Z82.0) Status:Active Family history of malignant neoplasm: Mother, Sister, Brother(V16.9, Z80.9) Status:Active Family history of glaucoma: Grandparent(V19.11, Z83.511) Status:Active Family history of asthma: Mo ther, Father(V17.5, Z82.5) Status:Active Family history of eczema: Mo ther, Father(V19.4, Z84.0) Status:Active Seasonal allergies: Mother, Father Status:Active Family history of malignant neoplasm of prostate: Father(V16.42, Z80.42) Status:Active Family history of multiple m yeloma: Brother(V16.7, Z80.7) Status:Active Unknown Family Member Name Dates Details Family history of Alzheimer' s disease: Mother(V17.2, Z82.0) Status:Active Family history of malignant neoplasm: Mother, Sister, Brother(V16.9, Z80.9) Status:Active Family history of glaucoma: Grandparent(V19.11, Z83.511) Status:Active Family history of malignant neoplasm of prostate: Father(V16.42, Z80.42) Status:Active Family history of multiple m yeloma: Brother(V16.7, Z80.7) Status:Active Seasonal allergies: Mother, Father Status:Active Family history of eczema: Mo ther, Father(V19.4, Z84.0) Status:Active Family history of asthma: Mo ther, Father(V17.5, Z82.5) Status:Active Unknown Family Member Name Dates Details Family history of Alzheimer' s disease: Mother(V17.2, Z82.0) Status:Active Family history of malignant neoplasm: Mother, Sister, Brother(V16.9, Z80.9) Status:Active Family history of glaucoma: Grandparent(V19.11, Z83.511) Status:Active Family history of asthma: Mo ther, Father(V17.5, Z82.5) Status:Active Family history of eczema: Mo ther, Father(V19.4, Z84.0) Status:Active Seasonal allergies: Mother, Father Status:Active Family history of malignant neoplasm of prostate: Father(V16.42, Z80.42) Status:Active Family history of multiple m yeloma: Brother(V16.7, Z80.7) Status:Active Unknown Family Member Name Dates Details Family history of Alzheimer' s disease: Mother(V17.2, Z82.0) Status:Active Family history of malignant neoplasm: Mother, Sister, Brother(V16.9, Z80.9) Status:Active Family history of glaucoma: Grandparent(V19.11, Z83.511) Status:Active Family history of asthma: Mo ther, Father(V17.5, Z82.5) Status:Active Family history of eczema: Mo ther, Father(V19.4, Z84.0) Status:Active Seasonal allergies: Mother, Father Status:Active Family history of malignant neoplasm of prostate: Father(V16.42, Z80.42) Status:Active Family history of multiple m yeloma: Brother(V16.7, Z80.7) Status:Active Unknown Family Member Name Dates Details Family history of Alzheimer' s disease: Mother(V17.2, Z82.0) Status:Active Family history of malignant neoplasm: Mother, Sister, Brother(V16.9, Z80.9) Status:Active Family history of glaucoma: Grandparent(V19.11, Z83.511) Status:Active Family history of asthma: Mo ther, Father(V17.5, Z82.5) Status:Active Family history of eczema: Mo ther, Father(V19.4, Z84.0) Status:Active Seasonal allergies: Mother, Father Status:Active Family history of malignant neoplasm of prostate: Father(V16.42, Z80.42) Status:Active Family history of multiple m yeloma: Brother(V16.7, Z80.7) Status:Active Relationship Condition Age at Onset Recorded Date/T osvaldo father Heart disease Unknown Diabetes mellitus Unknown Malignant neoplasm of prostate Unknown Disease of circulatory system Unknown Pulmonary emphysema Unknown Not Specified Alzheimer's disease Unknown grandparent Malignant neoplasm Unknown grandparent Alzheimer's disease Unknown sister Malignant neoplasm of ovary Unknown brother Heart disease Unknown Disease of spine Unknown Multiple myeloma Unknown Summary Purpose Advance Directives Advance Directive Response Recorded Date/ Time Advance Directives No November 07 18 3:47pm Chief Complaint FUV for immunoglobin deficiencyPT in office for their 6 month f.uFUV for immunoglobin deficiencyFUV for immunoglobin deficiencyFollowup visit for immunoglobin deficiencyFollowup visit for immunoglobin deficiency* F/u * Pt's f/u * PT in office for their 6 month f.u NPV for pain in the abdomen since 2017. Had enlarged b cell lymphoma. deny neck and back surgery. no hip or knee pain. All images done at . currently do not take anything for pain.NPV for pain in the abdomen since 2017. Had enlarged b cell lymphoma. deny neck and back surgery. no hip or knee pain. All images done at . currently do not take anything for pain.NPV for pain in the abdomen since 2017. Had enlarged b cell lymphoma. deny neck and back surgery. no hip or knee pain. All images done at . currently do not take anything for pain.NPV for pain in the abdomen since 2017. Had enlarged b cell lymphoma. deny neck and back surgery. no hip or knee pain. All images done at . currently do not take anything for pain. Chief Complaint and Reason for Visit Chief Complaint Screening Additional Source Comments (unrecognized sect ion and content) No Status Records FoundNo Status Records FoundNo Status Records FoundNo Status Records FoundNo Status Records FoundNo Status Records FoundNo Status Records FoundNo Status Records FoundNo Status Records Found INFORMATION SOURCE (unrecogn ized section and content) DATE CREATED AUTHOR 01/25/2020 [facility] DATE CREATED AUTHOR AUTHOR'S ORGANIZ ATION 08/22/2022 [facility] DATE CREATED AUTHOR AUTHOR'S ORGANIZ ATION 01/09/2023 [facility] DATE CREATED AUTHOR AUTHOR'S ORGANIZ ATION 02/22/2023 [facility] DATE CREATED AUTHOR AUTHOR'S ORGANIZ ATION 05/03/2023 [facility] DATE CREATED AUTHOR AUTHOR'S ORGANIZ ATION 06/05/2023 [facility] DATE CREATED AUTHOR AUTHOR'S ORGANIZ ATION 06/05/2023 [employer] DATE CREATED AUTHOR AUTHOR'S ORGANIZ ATION 07/18/2023 [facility] EPIC DATE CREATED AUTHOR AUTHOR'S ORGANIZ ATION 08/18/2023 [facility] Care Teams (unrecognized sec tion and content) Team Status: Inactive Member Role Status Dates Nael Farias MD 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 Provider Active Victor Hugo Farrell MD Attending Provider Active Team Status: Active Member Role Status Dates Nael Farias MD 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 Provider 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 Start Date End Date Nael Farias MD [address] [place] [address] PCP - General 06/18/18 Anirudh Sears MD [address] [place] [address] [address] [place], [place] [id number] Consulting Physician Hematology and Oncology 08/13/23 [employer] Relationship Specialty Start Date End Date Nael Farias MD [address] [place] [id number] PCP - General 06/18/18 Anirudh Sears MD [address] [place] [address] [address] [place] [address] Consulting Physician Hematology and Oncology 08/13/23 Goals (unrecognized section and content) Goals may be documented in a n alternate sectionGoals may be documented in an alternate section Reason for Visit (unrecogniz ed section and content) Reason Comments Follow-up Reason Comments Follow-up Immunotherapy Would like to discus s new medication FOR RECORDS PERTAINING TO PATIENTS WHO ARE OR HAVE BEEN ENROLLED IN A CHEMICAL DEPENDENCY/SUBSTANCEABUSE PROGRAM, SOME INFORMATION MAY BE OMITTED. This clinical summary was aggregated from multiple sources. Caution should be exercised in using it in the provision of clinical care. This summary normalizes information from multiple sources, and as a consequence, information in this document may materially change the coding, format and clinical context of patient data. In addition, data may be omitted in some cases. CLINICAL DECISIONS SHOULD BE BASED ON THE PRIMARY CLINICAL RECORDS. [employer] provides no warranty or guarantee of the accuracy or completeness of information in this document.
[2023-09-11 09:12] LABS: Immunoglobulin A, Qn, Serum 12 mg/dL (61-437); Immunoglobulin G, Qn, Serum 610 mg/dL (603-1613); Immunoglobulin M, Qn, Serum <5 mg/dL (20-172)
== END 2023-09-10 10:20 | disposition home or self-care (01) ==
LOC: LAB 10:21
PROVIDERS: PCP Family Medicine
DX: D83.9 Common variable immunodeficiency, unspecified (principal)
CPT/HCPCS: 36415; 82784

== ENCOUNTER 2023-09-24 07:28 | Outpatient (RCR) | payer MEDICARE, SELFPAY ==
[2023-09-24] MEDS: IMMUN GLOB G(IGG)/PRO/IGA 0-50 400 ML IV (09:21)
[2023-09-24 09:54] VITALS: BP 152/88; PULSE 69; RESP 18; TEMP 36.3; O2SAT 96
--- NOTE | 2023-09-24 09:59 | PC.NURSE ---
0840: Pt. to [facility] amb. per self. Weight obtained. Seated in recliner. VSS. #22 gauge IV initiated to right ac on first attempt without difficulty. Flushes easily without redness or edema. Pt. tolerated well. Pt. denies questions regarding infusion. Pt. profile obtained. 0921: IVIG infusion initiated at this time. Clarified with pharmacistMaine permission to give Privigen vs. Gammagard as ordered, as she states it is on [facility] formulary. Pt. given water. Denies wanting food or snack. 0951: Pt. tolerating infusion without c/o. Denies needs.
--- NOTE | 2023-09-24 10:25 | PC.NURSE ---
Pt. without c/o or needs. IV site remains clear.
--- NOTE | 2023-09-24 11:05 | PC.NURSE ---
Pt. without c/o or needs.
[2023-09-24 11:49] VITALS: BP 133/83; PULSE 63; RESP 16; TEMP 36.1; O2SAT 98
--- NOTE | 2023-09-24 11:50 | PC.NURSE ---
Continues to tolerate infusion without c/o. VSS.
[2023-09-24 12:26] VITALS: BP 158/68; PULSE 68; RESP 16; TEMP 36.1; O2SAT 96
--- NOTE | 2023-09-24 12:28 | PC.NURSE ---
1215: IV infusion completed at this time. Pt. without s&s of transfusion reaction. VSS. IV d/c'd, pressure to site. 1225: Pt. d/c'd amb. to home.
== END 2023-10-01 23:59 | disposition home or self-care (01) ==
LOC: INF 07:28
PROVIDERS: PCP Family Medicine
DX: D80.1 Nonfamilial hypogammaglobulinemia (principal); D83.9 Common variable immunodeficiency, unspecified
CPT/HCPCS: 96365; 96366; J1459

== ENCOUNTER 2023-10-22 07:44 | Outpatient (RCR) | payer MEDICARE, SELFPAY ==
[2023-10-22 08:30] VITALS: BP 121/81; PULSE 71; RESP 18; TEMP 36.4; O2SAT 97
[2023-10-22] MEDS: IGA OV50 IV (08:55)
[2023-10-22] MEDS: IMMUN GLOB IV (08:55)
[2023-10-22] MEDS: GLY IV (08:55)
--- NOTE | 2023-10-22 11:08 | PC.NURSE ---
0855: Patient is here for Gammagard, vitals obtained and stable. IV started with blood return, he denies any complaints. 0900:Gammagard started, he is tolerating infusion well and denies any complaints. 1105: He completed infusion well and denies any s/s or reaction. IV was discontinued and he was discharged home ambulatory.
== END 2023-10-30 23:59 | disposition home or self-care (01) ==
LOC: INF 07:44
PROVIDERS: PCP Family Medicine
DX: D80.1 Nonfamilial hypogammaglobulinemia (principal); D83.9 Common variable immunodeficiency, unspecified
CPT/HCPCS: 96365; 96366; J1569

== ENCOUNTER 2023-11-19 07:30 | Outpatient (RCR) | payer MEDICARE, SELFPAY ==
[2023-11-19 09:00] VITALS: BP 143/65; PULSE 70; RESP 18; TEMP 36.3; O2SAT 96
[2023-11-19] MEDS: IGA OV50 IV (09:05)
[2023-11-19] MEDS: GLY IV (09:05)
[2023-11-19] MEDS: IMMUN GLOB IV (09:05)
[2023-11-19 09:07] VITALS: BP 143/65; PULSE 70; RESP 18; TEMP 35.9; O2SAT 96
--- NOTE | 2023-11-19 09:11 | PC.NURSE ---
0850 Arrival ambulatory. alert oriented, offers no complaints. IV #22 initiated RACF, excellent blood return, labs drawn. 09 Gammagard initiated, titrated accordingly: step 1 0.5ml/kg/hr 60.25 ml hrx 30 mins step 2 1 ml/kg/hr 120 ml hr x 30 mins, step 3 2 ml/kg/hr 241 ml/hr for 30 mins, step 4 3 ml/kg/hr 361 ml/hr x 30 mins, step 5 5 ml/kg/hr 602 ml/hr.
[2023-11-19 09:23] LABS: Alanine Aminotransferase 61 U/L (16-63); Albumin Level 3.5 g/dL (3.4-5.0); Alkaline Phosphatase 125 U/L (46-116); Anion Gap 14.5; Aspartate Amino Transferase 27 U/L (15-37); BUN Creatinine Ratio 13.5; Bilirubin Total 0.6 mg/dL (0.2-1.0); Calcium 9.3 mg/dL (8.5-10.1); Carbon Dioxide 28.7 mmol/L (21.0-32.0); Chloride 105 mmol/L (98-107); Estimated GFR (African America 47 (>=60); Estimated GFR (Non-African Ame 39 (>=60); Globulin 3.4 g/dL; Glucose 127 mg/dL (74-106); Potassium 4.2 mmol/L (3.5-5.1); Sodium 144 mmol/L (136-145); Total Protein 6.9 g/dL (6.4-8.2)
[2023-11-19 10:00] VITALS: BP 134/94; PULSE 68; RESP 18; TEMP 36.2; O2SAT 97
--- NOTE | 2023-11-19 10:06 | PC.NURSE ---
1010 tolerating infusion without any s/s or reaction, reclined in recliner watching TV
[2023-11-20 05:10] LABS: Immunoglobulin G, Qn 699 mg/dL (603-1613)
== END 2023-11-30 23:59 | disposition home or self-care (01) ==
LOC: INF 07:30
PROVIDERS: PCP Family Medicine
DX: D83.9 Common variable immunodeficiency, unspecified (principal)
CPT/HCPCS: 80053; 82784; 96365; 96366; J1569

== ENCOUNTER 2023-12-17 07:30 | Outpatient (RCR) | payer MEDICARE, SELFPAY ==
[2023-12-17 08:40] VITALS: BP 140/76; PULSE 64; TEMP 36.6; O2SAT 97
[2023-12-17] MEDS: IMMUN GLOB IV (09:15)
[2023-12-17] MEDS: IGA OV50 IV (09:15)
[2023-12-17] MEDS: GLY IV (09:15)
--- NOTE | 2023-12-17 09:41 | PC.NURSE ---
0840: Pt. to [facility] amb. for Gammagard infusion. Weight obtained. Seated in recliner. Vss. Offers no c/o. Iv initiated on second attempt without difficulty. Pt. tolerated without c/o. Given water, declines wanting to eat. 0915: IV Gammagard initiated at this time. Pt. without c/o. 0930: Tolerating infusion without c/o. Denies needs.
[2023-12-17 10:53] VITALS: BP 134/85; PULSE 55; TEMP 36.3; O2SAT 99
--- NOTE | 2023-12-17 10:54 | PC.NURSE ---
1054: Pt. cont. to deny needs. VSS.
[2023-12-17 12:10] VITALS: BP 148/89; PULSE 66; TEMP 36.6; O2SAT 96
--- NOTE | 2023-12-17 12:16 | PC.NURSE ---
1205: IV infusion completed without s&s of adverse reaction. VSS. IV d/c'd, pressure to site. Up to bathroom to void. 1210: D/c'd amb. to home.
== END 2023-12-30 23:59 | disposition home or self-care (01) ==
LOC: INF 07:30
PROVIDERS: PCP Family Medicine
DX: D83.9 Common variable immunodeficiency, unspecified (principal)
CPT/HCPCS: 96365; 96366; J1569

== ENCOUNTER 2024-01-19 07:32 | Outpatient (RCR) | payer MEDICARE, SELFPAY ==
[2024-01-19] MEDS: IGA OV50 IV (10:02)
[2024-01-19] MEDS: IMMUN GLOB IV (10:02)
[2024-01-19] MEDS: GLY IV (10:02)
[2024-01-19 10:26] VITALS: BP 117/76; PULSE 68; TEMP 36.3; O2SAT 97
--- NOTE | 2024-01-19 10:30 | PC.NURSE ---
0935 Arrival ambulatory. Awake and oriented. IV initiated racf. tolerated well
[2024-01-19 10:45] VITALS: BP 111/70; PULSE 68; TEMP 36.3; O2SAT 98
== END 2024-01-30 23:59 | disposition home or self-care (01) ==
LOC: INF 07:32
PROVIDERS: PCP Family Medicine
DX: D83.9 Common variable immunodeficiency, unspecified (principal)
CPT/HCPCS: 96365; 96366; J1569

== ENCOUNTER 2024-02-11 07:35 | Outpatient (RCR) | payer MEDICARE, SELFPAY ==
[2024-02-11 08:48] VITALS: BP 144/65; PULSE 65; TEMP 36.5; O2SAT 98
[2024-02-11] MEDS: [UNRECOGNIZED DRUG - OTHER] IV (09:00)
[2024-02-11] MEDS: IMMUNE GLOBULIN IV (09:00)
--- NOTE | 2024-02-11 09:15 | PC.NURSE ---
0845 Arrival ambulatory to chair 3. alert oriented offers no complaints. 0855 #22 IV initiated right AC. tolerated well 0900 Gammagard initiated per protocol, instructed on s/s of rxn and to notify staff if experiences any. verbalized understanding 0920 Breakfaast ordered
[2024-02-11 10:30] VITALS: BP 136/83; PULSE 59; TEMP 36.6; O2SAT 95
== END 2024-02-11 12:00 | disposition home or self-care (01) ==
LOC: INF 07:35
PROVIDERS: PCP Family Medicine; Visit Provider Family Medicine
DX: D83.9 Common variable immunodeficiency, unspecified (principal)
CPT/HCPCS: 96365; 96366; J1569

== ENCOUNTER 2024-03-10 07:38 | Outpatient (RCR) | payer MEDICARE, SELFPAY ==
[2024-03-10 08:40] VITALS: BP 156/74; PULSE 58; TEMP 35.8; O2SAT 95
[2024-03-10] MEDS: IMMUNE GLOBULIN IV (09:09)
[2024-03-10] MEDS: [UNRECOGNIZED DRUG - OTHER] IV (09:09)
--- NOTE | 2024-03-10 09:31 | PC.NURSE ---
0840: Pt. to [facility] amb. for Gammagard infusion. Weight obtained. Seated in recliner. VSS. IV initiated to right arm, see documentation. Pt. tolerated without c/o. Given snack and water. Relays comfort.
--- NOTE | 2024-03-10 09:33 | PC.NURSE ---
0909: IV Gammagard initiated at this time. 0935: Pt. tolerating infusion without c/o. Denies needs.
--- NOTE | 2024-03-10 10:32 | PC.NURSE ---
Pt. tolerating infusion without c/o. IV site remains without s&s of infiltration. Pt. denies needs.
[2024-03-10 11:00] VITALS: BP 145/82; PULSE 58; TEMP 36.5; O2SAT 98
--- NOTE | 2024-03-10 11:34 | PC.NURSE ---
1100: IV therapy completed at this time without s&s of adverse reaction. VSS. IV d/c'd, pressure to site. 1105: Pt. d/c'd amb. to home.
== END 2024-03-11 15:33 | disposition home or self-care (01) ==
LOC: INF 07:38
PROVIDERS: PCP Family Medicine; Visit Provider Family Medicine
DX: D83.9 Common variable immunodeficiency, unspecified (principal)
CPT/HCPCS: 96365; 96366; J1569

== ENCOUNTER 2024-04-09 07:34 | Outpatient (RCR) | payer MEDICARE, SELFPAY ==
[2024-04-09 08:42] VITALS: BP 130/79; PULSE 63; TEMP 35.5; O2SAT 94
[2024-04-09] MEDS: [UNRECOGNIZED DRUG - OTHER] IV (09:08)
[2024-04-09] MEDS: IMMUNE GLOBULIN IV (09:08)
--- NOTE | 2024-04-09 09:19 | PC.NURSE ---
0842: Pt. to [facility] amb. for Gammagard infusion. Weight obtained. Seated in recliner. VSS. IV initiated, see documentation. Blood drawn for ordered labs. Pt. tolerated without c/o. Given juice. Declines snack or other needs. 0908:IV Gammagard initiated at this time. To be titrated as tolerated.
[2024-04-09 09:50] LABS: Alanine Aminotransferase 49 U/L (16-63); Albumin Globulin Ratio 1.1; Albumin Level 3.4 g/dL (3.4-5.0); Alkaline Phosphatase 109 U/L (46-116); Anion Gap 10.1; Aspartate Amino Transferase 32 U/L (15-37); BUN Creatinine Ratio 13.3; Bilirubin Total 0.5 mg/dL (0.2-1.0); Calcium 9.2 mg/dL (8.5-10.1); Chloride 106 mmol/L (98-107); Estimated GFR (African America 46 (>=60); Estimated GFR (Non-African Ame 38 (>=60); Globulin 3.2 g/dL; Glucose 109 mg/dL (74-106); Potassium 4.1 mmol/L (3.5-5.1); Sodium 142 mmol/L (136-145); Total Protein 6.6 g/dL (6.4-8.2)
--- NOTE | 2024-04-09 09:58 | PC.NURSE ---
0945: Pt. tolerating infusion without c/o. Denies needs or c/o.
[2024-04-09 10:50] VITALS: BP 144/86; PULSE 58; TEMP 36.6; O2SAT 97
--- NOTE | 2024-04-09 11:12 | PC.NURSE ---
1050: IV infusion completed at this time without s&s of adverse reaction. VSS. IV d/c'd, pressure to site. Pt. without c/o. D/c'd amb. to home
[2024-04-10 05:07] LABS: Immunoglobulin G, Qn 774 mg/dL (603-1613)
== END 2024-05-01 23:59 | disposition home or self-care (01) ==
LOC: INF 07:34
PROVIDERS: PCP Family Medicine
DX: D83.9 Common variable immunodeficiency, unspecified (principal)
CPT/HCPCS: 80053; 82784; 96365; 96366; J1569

== ENCOUNTER 2024-05-05 07:26 | Outpatient (RCR) | payer MEDICARE, SELFPAY ==
[2024-05-05 08:45] VITALS: BP 106/71; PULSE 78; TEMP 35.8; O2SAT 95
[2024-05-05] MEDS: GLY IV (09:05)
[2024-05-05] MEDS: IGA OV50 IV (09:05)
[2024-05-05] MEDS: IMMUN GLOB IV (09:05)
--- NOTE | 2024-05-05 09:08 | PC.NURSE ---
0845: Pt. to [facility] amb. for scheduled infusion. Weight obtained. Seated in recliner. VSS. IV initiated to right outer ac, see documentation. Pt. without c/o or needs. Snack and beverage provided. 0905: IV Gammagard initiated at this time.
--- NOTE | 2024-05-05 09:35 | PC.NURSE ---
0935: Tolerating infusion without c/o. Denies needs. Infusion titrated at this time.
--- NOTE | 2024-05-05 09:58 | PC.NURSE ---
No new changes observed. IV site clear. Pt. denies needs.
--- NOTE | 2024-05-05 11:03 | PC.NURSE ---
1047: Gammagard completed without s&s of adverse reaction. IV d/c'd, pressure to site. D/c'd amb to home.
== END 2024-05-31 23:59 | disposition home or self-care (01) ==
LOC: INF 07:26
PROVIDERS: PCP Family Medicine; Visit Provider Family Medicine
DX: D83.9 Common variable immunodeficiency, unspecified (principal)
CPT/HCPCS: 96365; 96366; J1569

== ENCOUNTER 2024-06-02 08:53 | Outpatient (OUT) | payer MEDICARE, SELFPAY ==
--- OUTSIDE RECORDS SUMMARY | 2024-06-02 09:30 | XMS_ITS | CCD ---
Author Organization [facility] CliniSywv Care Team Providers Care Retort Press Operator Name Role Phone Christopher Watkins Unavailable Unavailable Nael Farias Unavailable Unavailable Nael Farias Unavailable Unavailable Unavailable MD Neal Farias 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 Provider [phone] MD Victor Hugo Farrell Attending Provider [phone] Andrea, Dr. Nael Brand 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 Unava ilable Anirudh Sears Attending Unavailable Hemeevelyn, Dr. Nael Brand 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 Unava ilable Anirudh Sears Attending Unavailable Sears, Anirudh Lowe Attending Unavailable Hemeyer, Dr. Nael Brand 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 Unava ilyonathan Unavailable Unavailable SANDRA COLE Admitting Unavailable SANDRA COLE Consulting Unavailable SANDRA COLE Attending Unavailable HEMEYER ., DR GARCIA 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 [...] Clark Attending Unavailable Hemeyer, Dr. Nael Brand [facility] Unava ilable Sears, Anirudh C Admitting Unavailable Sears, Anirudh C Attending Unavailable Hemeyer, Dr. Nael Brand [facility] Unava ilable Sears, Anirudh C Admitting Unavailable Sears, Anirudh C Attending Unavailable Hemeevelyn, Dr. Nael Brand [facility] Unava ilable Stephanieyer, Dr. Nael Brand [facility] Unava ilable Neha, Dr. White Attending Unavailable Neha, Dr. White Referring Unavailable Hemeyer, Dr. Nael Brand [facility] Unava ilable Neha, Dr. Whiet Attending Unavailable Neah, Dr. White Referring Unavailable Hemeyer, Dr. Nael Brand [facility] Unava ilable Neha, Dr. White Attending Unavailable Neha, Dr. White Referring Unavailable Hemeyer, Dr. Nael Brand [facility] Unava ilable Stephanieyer, Dr. Nael Brand Referring Unava ilable Kelsey, Dr. Sandra Lopez Attending Unav ailable Hemeyer, Dr. Nael Brand [facility] Unava ilable Sears, Anirudh C Attending Unavailable Sears, Anirudh C Admitting Unavailable Hemeyer Nael GRACE 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 Provider Orion GRACE, Anirudh Katina Unavailable Christopher Watkins MD Unavailable SANDRA COLE Attending Unavailable NAEL FARIAS [facility] Unavailab CHRISTOPHER Marcial Attending Unavailable NAEL FARIAS [facility] Unavailab SANDRA Rowley Attending Unavailable NAEL FARIAS [facility] Unavailab MD Nael Garcia 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 Provider DO Nadeem Morrison Attending Provider Nael Farias 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 Unavailable Nadeem Morrison Attending Unavailab Nadeem Lopez Admitting Unavailab le ANIRUDH SEARS Attending Unavailable NAEL FARIAS 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 Unavailable ANIRUDH SEARS Attending Unavailable NAEL FARIAS 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 Unavailable NAEL FARIAS Attending Unavailable NOHELIA MACHADO Attending Unavailable NAEL FARIAS Attending Unavailable NAEL FARIAS Attending Unavailable NAEL FARIAS Attending Unavailable NADEEM MORRISON Attending Unavailable NADEEM MORRISON Attending Unavailable NADEEM MORRISON Attending Unavailable NAEL FARIAS Attending Unavailable Allergies Allergy Classification Reported Allergen(s) Allergy Type Date of Onset Reaction(s) Facility (20 sources) Dapsone; Translations: [dapsone] Drug Allergy 06-13-20 22 Rash [facility] (20 sources) Prochlorperazine; Translations: [Compazine] Drug Allergy [facility] (20 sources) Sulfamethoxazole / Trimethoprim; Translations: [Bactrim DS TABS] Drug Allergy 08-04-20 23 Hives, Itching, Rash -[facility] Work Phone: (19 sources) voriconazole; Translations: [voriconazole] Drug Allergy 08-04-20 23 Other -[facility] 3 DO Work Phone: (1 source) Penicillins Allergy to substance 12-04-19 18 Unknown Reaction [facility] (11 sources) Prochlorperazine; Translations: [PROCHLORPERAZINE] Drug Allergy 12-04-19 18 Other, Shortness of breath [facility] (5 sources) Sulfamethoxazole; Translations: [sulfamethoxazole] Drug Allergy 12-04-19 18 Unknown Reaction [facility] (8 sources) Trimethoprim; Translations: [TRIMETHOPRIM] Drug Allergy 12-04-19 18 Other [facility] (1 source) Capsaicin Drug Allergy [facility] (1 source) Sulfamethoxazole / Trimethoprim Drug Allergy [facility] (3 sources) Capsaicin; Translations: [CAPSAICIN] Drug Allergy 01-05-20 24 Diarrhea [facility] (2 sources) Sulfamethoxazole / Trimethoprim; Translations: [SULFAMETHOXAZOLE-TR IMETHOPRIM] Drug Allergy 08-04-20 23 [facility] 3 Repository Medications Current Medications Medication Drug Class(es) Dates Sig (Normalized) Sig (Original) breath-actuated 120 actuat beclomethasone dipropionate 0.08 mg/actuat metered dose inhaler (1 source) Corticosteroid Start: 09-09-2023 End: 09-08-2024 beclomethasone dipropionate (Qvar) 80 mcg/actuation inhaler Indications: CVID (common variable immunodeficiency) (CMS/HCC) Inhale 2 Inhalations 2 times a day. Rinse mouth out after inhalation. 10.6 g 3 09/09/2023 09/08/2024 Active calcitriol 0.01909 mg oral capsule (20 sources) Vitamin D3 Analog Start: 06-13-2022 take 0.5 ug by mouth twice daily Calcitriol Active 0.5 MCG PO Twice daily June 13, 2022 12:00am 2xW; weekends Start: 07-28-2019 End: 05-19-2024 take 0.25 ug by mouth once daily Calcitriol Discontinued 0.25 MCG PO Daily June 13, 2022 12:00am May 19, 2024 3:58pm 5x week-takes on weekdays Start: 07-28-2019 Calcitriol 0.2 5 MCG Oral Capsule TAKE 2 CAPSULES OVER THE WEEKENDS AND 1 CAPSULE THE OTHER DAYS Quantity: 117 Refills: 3 Ordered: 07-Apr-2023 Christopher Watkins MD Start : 28-Jul-2019 Active Start: 07-28-2019 take 1 capsule by [facility] every other day Calcitriol 0.25 MCG Oral Capsule One cap every other day. Quantity: 15 Refills: 10 Christopher Watkins MD Start : 28-Jul-2019 Active cetirizine hydrochloride 10 mg oral tablet (20 sources) Histamine-1 Receptor Antagonist take 1 tablet by mouth once daily cetirizine (ZyrTEC) 10 mg tablet Take 1 tablet (10 mg) by mouth once daily. Active ZyrTEC Allergy 1 0 MG Oral Tablet Quantity: 0 Refills: 0 Ordered: 08-Mar-2019 DO Active Cetirizine / Pseudoephedrine (3 sources) alpha-Adrenergic Agonist, Histamine-1 Receptor Antagonist Start: 06-13-2022 take 1 tablet by mouth once daily, then take 1 tablet by mouth every twelve hours Cetirizine-Pseudoephedrine (Zyrtec-D) 5-120 mg Tablet Extended Release 12 Hr Active 1 TAB PO Daily June 13, 2022 12:00am dextran 70 1 mg/ml / glycerin 2 mg/ml / hypromellose 3 mg/ml ophthalmic solution (4 sources) Plasma Volume Commercial Technician, Non-Standardized Chemical Allergen Start: 02-27-2019 artificial tears, [id number]-[id number]-[id number], 0.1-0.3-0.2 % ophthalmic solution Administer into affected eye(s) 4 times a day as needed. 02/27/2019 Active diphenhydrAMINE hydrochloride 25 mg oral tablet (20 sources) Histamine-1 Receptor Antagonist Start: 01-16-2021 diphenhydrAMINE (Benadryl Allergy) 25 mg tablet Take by mouth. 01/16/2021 Active Start: 01-16-2021 Benadryl Aller gy [...] Start: 10-09-2022 take 1 puff(s) by mo uth once daily Arnuity Ellipta 100 MCG/ACT Inhalation Aerosol Powder Breath Activated INHALE 1 PUFF BY MOUTH DAILY Quantity: 30 Refills: 0 Ordered: 06-Nov-2022 DO Start : 09-Oct-2022 Active Start: 03-13-2018 take 1 spray(s) nasa l route once daily Fluticasone Propionate 50 MCG/ACT Nasal Suspension USE 1 SPRAY IN EACH NOSTRIL ONCE DAILY. Quantity: 1 Refills: 3 DO Start : 13-Mar-2018 Active fluticasone / salmeterol (3 sources) Corticosteroid, beta2-Adrenergic Agonist Start: 12-26-2023 End: 12-25-2024 take 1 puff(s) by mouth twice daily fluticasone propion-salmeteroL (Wixela Inhub) 500-50 mcg/dose diskus inhaler Indications: Asthma, unspecified asthma severity, unspecified whether complicated, unspecified whether persistent ([facility]-HCC) Inhale 1 puff 2 times a day. Rinse mouth with water after use to reduce aftertaste and incidence of candidiasis. Do not swallow. 60 each 12/26/2023 12/25/2024 Active Start: 09-15-2023 End: 12-05-2023 take 1 puff(s) by mouth twice daily fluticasone propion-salmeteroL (Advair Diskus) 500-50 mcg/dose diskus inhaler Indications: Asthma, unspecified asthma severity, unspecified whether complicated, unspecified whether persistent Inhale 1 puff 2 times a day. Rinse mouth with water after use to reduce aftertaste and incidence of candidiasis. Do not swallow. 60 each 09/15/2023 12/05/2023 Discontinued (Med List Cleanup) End: 12-05-2023 take 1 puff(s) by mouth twice daily fluticasone propion-salmeteroL (Advair Diskus) 500-50 mcg/dose diskus inhaler Inhale 1 puff 2 times a day. Rinse mouth with water after use to reduce aftertaste and incidence of candidiasis. Do not swallow. 0 12/05/2023 Discontinued (Med List Cleanup) 30 actuat fluticasone furoate 0.2 mg/actuat / vilanterol 0.025 mg/actuat dry powder inhaler (1 source) Corticosteroid, beta2-Adrenergic Agonist Start: 12-17-2023 End: 01-07-2024 take 1 puff(s) by inhalation once daily fluticasone furoate-vilanteroL (Breo Ellipta) 200-25 mcg/dose inhaler Indications: Asthma, unspecified asthma severity, unspecified whether complicated, unspecified whether persistent ([facility]-HCC) Inhale 1 puff once daily. 3 each 3 12/17/2023 01/07/2024 Discontinued (Formulary change) fluticasone propion/salmete rol (WIXELA INHUB INHL) (1 source) fluticasone propion/salmeterol (WIXELA INHUB INHL) Inhale. 0 Active gabapentin 100 mg oral capsule (20 sources) Anti-epileptic Agent Start: 05-19-2024 take 100 mg by mouth once daily in the morning Gabapentin Active 100 MG PO Daily May 19, 2024 12:00am in the AM Start: 01-04-2024 take 1 capsule by mo [facility] twice daily gabapentin (Neurontin) 100 mg capsule Take 1 capsule (100 mg) by mouth 2 times a day. 01/04/2024 Active Start: 02-20-2023 End: 08-13-2023 take 1 capsule by mouth twice daily at bedtime gabapentin (Neurontin) 100 mg capsule TAKE 1 CAPSULE BY MOUTH TWICE DAILY in addition to the 300mg AT BEDTIME 0 02/25/2023 08/13/2023 Discontinued (Med List Cleanup) Start: 06-13-2020 take 300 mg by mouth once daily at bedtime Gabapentin Active 300 MG PO Daily at bedtime June 13, 2022 12:00am Start: 06-13-2020 Gabapentin 300 MG Oral Capsule Quantity: 0 Refills: 0 Ordered: 13-Jun-2020 DO Start : 13-Jun-2020 Active 300 ml immunoglobulin g, human 100 mg/ml injection (2 sources) Human Immunoglobulin G Start: 10-03-2023 End: 10-02-2024 immune globulin, human, (Gammagard Liquid) infusion Indications: CVID (common variable immunodeficiency) (Multi) Infuse 400 mL (40 g) into a venous catheter every 30 (thirty) days. 400 mL 10/03/2023 10/02/2024 Active losartan potassium 25 mg oral tablet (9 sources) Angiotensin 2 Receptor Muriel Start: 06-13-2022 End: 12-05-2023 take 25 mg by mouth once daily Losartan Active 25 MG PO Daily June 13, 2022 12:00am Magnesium (18 sources) End: 01-07-2024 magnesium 200 mg tablet Take 1 tablet (200 mg) by mouth. 01/07/2024 Discontinued (Med List Cleanup) magnesium 200 mg tablet Take 1 tablet (200 mg) by mouth. 0 Active End: 08-13-2023 take 1 tablet by mouth once daily magnesium 200 mg tablet Take 1 tablet (200 mg) by mouth once daily. 0 08/13/2023 Discontinued (Med List Cleanup) take 1 tablet by anthony once daily Magnesium 200 MG Oral Tablet TAKE 1 TABLET DAILY DIRECTED. Quantity: 0 Refills: 0 Ordered: 08-Nov-2021 DO Active magnesium gluconate 250 mg oral tablet (6 sources) Start: 06-13-2022 take 250 mg by mouth twice daily Magnesium Gluconate Active 250 MG PO Twice daily June 13, 2022 12:00am magnesium glucon ate 12.5 mg magne- sium (250 mg) tablet every 12 hours. Active ondansetron 8 mg oral tablet (20 sources) Serotonin-3 Receptor Antagonist Start: 06-13-2020 End: 08-13-2023 ondansetron (Zofran) 4 mg tablet Take by mouth. 0 06/13/2020 08/13/2023 Discontinued (Med List Cleanup) Start: 06-13-2020 Zofran 4 MG Or al Tablet Quantity: 0 Refills: 0 Ordered: 13-Jun-2020 DO Start : 13-Jun-2020 Active Start: 02-01-2019 take 8 mg by mouth e very four to six hours Ondansetron Hcl Active 8 MG PO EVERY 4-6 HOURS June 13, 2022 12:00am polyvinyl alcohol 0.014 ml/ml / povidone 6 mg/ml ophthalmic solution (1 source) lubricating eye drops (polyvinyl alcohol-povidon,PF,) ophthalmic solution Administer 1-2 drops into both eyes. Active potassium 99 mg extended release oral tablet (16 sources) Start: take 99 mg by mouth once daily Potassium Active 99 MG PO Daily June 13, 2022 12:00am potassium citrate 99 mg oral tablet (4 sources) take 1 tablet by mouth once daily potassium citrate 99 mg capsule Take 1 tablet by mouth once daily. Active tiZANidine 4 mg oral tablet (1 source) Central alpha-2 Adrenergic Agonist Start: 024 take 0.5-1 tablets by mouth twice daily as needed Tizanidine Active 0 PO Twice daily 60 May 19, 2024 12:00am 1/2-1 tablet orally twice daily PRN; valsartan 80 mg oral tablet (11 sources) Angiotensin 2 Receptor Muriel Start: 024 take 1 tablet by mouth once daily valsartan (Diovan) 80 mg tablet Indications: Benign essential HTN TAKE 1 TABLET BY MOUTH DAILY 90 tablet 3 12/15/2023 Active Start: 10-14-2023 valsartan (Sergey van) 80 mg tablet Indications: Benign essential HTN Take 1 tablet daily 90 tablet 0 10/14/2023 Active Start: 04-18-2023 valsartan (Sergey van) 80 mg tablet Start: 01-29-2023 take 1 tablet by anthony th once daily Valsartan 80 MG Oral Tablet TAKE 1 TABLET BY MOUTH EVERY DAY Quantity: 90 Refills: 3 Ordered: 29-Jan-2023 Christopher Watkins MD Start : 29-Jan-2023 Active ZINC CITRATE (2 sources) ZINC CITRATE ORA L Take by mouth. Active ZINC CITRATE ORA L Take by mouth. 0 Active Completed/Discontinued Medications Medication Drug Class(es) Dates [...] albuterol 0.63 mg/3 mL nebulizer solution Inhale. 06/13/2020 Active Start: 06-13-2020 take 1 [IU] [...] daily. 0 03/12/2022 09/09/2023 Discontinued (Therapy completed) baclofen 10 mg oral tablet (3 sources) gamma-Aminobutyric Acid-ergic Agonist Start: 05-19-2024 End: 05-19-2024 take 10 mg by mouth twice daily Baclofen Discontinued 10 MG PO Twice daily May 19, 2024 12:00am May 19, 2024 4:34pm Start: 09-29-2023 take 1 tablet by anthony th twice daily baclofen (Lioresal) 10 mg tablet Take 1 tablet (10 mg) by mouth 2 times a day. 09/29/2023 Active cefdinir 300 mg oral capsule (2 sources) [...] (Therapy completed) cholecalciferol 0.125 mg oral tablet (6 sources) Vitamin D Start: 12-03-2017 End: 06-13-2022 take 1 tablet by mouth once daily Cholecalciferol (Vitamin D3) (Vitamin D3) 5,000 unit Tablet Discontinued 5000 UNIT PO Daily December 03, 2017 12:00am June 13, 2022 8:53am take 1 tablet by mouth once yeyo y cholecalciferol (Vitamin D3) 50 MCG (2000 UT) tablet Take 1 tablet (50 mcg) by mouth once daily. Active chondroitin sulfates 200 mg / glucosamine hydrochloride 250 mg oral tablet (4 sources) Start: 12-03-2017 End: 06-13-2022 take 2 tablets by mouth once daily Glucosamine-Chondroitin (Osteo Bi-Flex) 250-200 mg Tablet Discontinued 2 TAB PO Daily December 03, 2017 12:00am June 13, 2022 8:53am ergocalciferol 42700 unt oral capsule (5 sources) Provitamin D2 Compound Vitamin D (Ergocalci ferol) 1.25 MG (08784 UT) Oral Capsule Refills: 0 DO Active Vitamin D (Ergoc alciferol) 89876 UNIT Oral Capsule Refills: 0 Active fluconazole [...] Ordered: 20-Mar-2021 DO Start : 20-Mar-2021 Complete Hyaluronidase (11 sources) Endoglycosidase Start: 04-23-2023 End: 09-09-2023 HyQvia [...] APPOINTMENT. Quantity: 1 Refills: 0 Ordered: 19-Aug-2022 Kelsey GRACE, Sandra Daniel Start : 15-Aug-2022 Active Start: 10-12-2021 Lidocaine-Pril ocaine 2.5-2.5 % External Cream Quantity: 30 Refills: 0 Ordered: 12-Oct-2021 DO Start : 12-Oct-2021 Complete loratadine 10 mg oral tablet (4 sources) Start: 12-03-2017 End: 06-13-2022 take 1 tablet by mouth once daily Loratadine (Claritin) 10 mg Tablet Discontinued 10 MG PO Daily December 03, 2017 12:00am June 13, 2022 8:53am methocarbamol 750 mg oral tablet (18 sources) Muscle Relaxant Start: 12-19-2021 End: 05-19-2024 Methocarbamol Discontinued 750 MG PO As Directed June 13, 2022 12:00am May 19, 2024 3:57pm omeprazole 20 mg delayed release oral capsule (20 sources) Proton Pump Inhibitor Start: 02-09-2016 End: 06-13-2022 take 20 mg by mouth once daily Omeprazole Discontinued 20 MG PO Daily December 03, 2017 12:00am June 13, 2022 8:53am Start: 02-09-2016 Omeprazole 20 MG Oral Capsule Delayed Release Quantity: 0 Refills: 0 Ordered: 09-Feb-2016 DO Start : 09-Feb-2016 Active oxyCODONE hydrochloride 5 mg oral tablet (7 sources) Opioid Agonist Start: 11-12-2018 End: 05-19-2024 take 5 mg by mouth every four to six hours Oxycodone Discontinued 5 MG PO EVERY 4-6 HOURS June 13, 2022 12:00am May 19, 2024 3:58pm pot bicarb/potassium cit/ca (POTASSIUM BICARBONATE ORAL) (2 [...] Active traMADol hydrochloride 50 mg oral tablet (4 sources) Opioid Agonist Start: 12-03-2017 End: 06-13-2022 take 50 mg by mouth once daily Tramadol Discontinued 50 MG PO Daily December 03, 2017 12:00am June 13, 2022 8:53am traZODone hydrochloride 50 mg oral tablet (4 sources) Serotonin Reuptake Inhibitor Start: 12-03-2017 End: 06-13-2022 take 50 mg by mouth at bedtime Trazodone Discontinued 50 MG PO Bedtime December 03, 2017 12:00am June 13, 2022 8:53am Problems Active Problems Problem Classification Problem Date Documented Date Episodic/Chronic Asthma (6 sources) Asthma; Translations: [Unspecified asthma, uncomplicated] Onset: 4 09-10-2023 Chronic Cataract (20 sources) Nuclear senile cataract; Translations: [Senile nuclear sclerosis] Onset: 9 08-04-2023 Chronic Chronic kidney disease (20 sources) Chronic kidney disease stage 3; Translations: [Chronic kidney disease, Stage III (moderate)] Onset: 2 08-04-2023 Chronic Chronic kidney disease (3 sources) Chronic kidney disease; Translations: [CHRONIC KIDNEY DISEASE STAGE 3B] Onset: 2 Coagulation and hemorrhagic disorders (17 sources) Platelet count below reference range; Translations: [Thrombocytopenia, unspecified] Onset: 3 08-04-2023 Chronic Complication of device; implant or graft (20 sources) Graft versus host disease; Translations: [Nbkoh-niggeg-ulbw disease, unspecified] Chronic Deficiency and other anemia [...] other diseases of circulatory system] Episodic Other connective tissue disease (6 sources) Cramp; Translations: [Cramp of limb] Episodic Other connective tissue disease (1 source) Cramp and spasm; Translations: [Cramp and spasm] Onset: 3 Episodic Other connective tissue disease (1 source) Spasm; Translations: [Other muscle spasm] 05-19-2024 Episodic Other connective tissue disease (1 source) Other muscle spasm; Translations: [Spasm of muscle] 05-19-2024 Episodic Other diseases of kidney and ureters (19 sources) Renal mass; Translations: [Unspecified disorder of kidney and ureter] Onset: 3 08-04-2023 Chronic Other diseases of kidney and ureters (2 sources) Secondary hyperparathyroidism of renal origin; Translations: [Secondary hyperparathyroidism of renal origin (CMS/HCC)] Onset: 3 Chronic Other diseases of kidney and ureters (5 sources) Renal mass; Translations: [Left renal mass] Episodic Other endocrine disorders (20 sources) Secondary hyperparathyroidism; Translations: [Secondary hyperparathyroidism (of renal origin)] Onset: 3 08-04-2023 Chronic Other nervous system disorders (1 source) Polyneuropathy, unspecified; Translations: [Polyneuropathy, unspecified] Onset: 2 Chronic Other nervous system disorders (1 source) Chronic pain; Translations: [Other chronic pain] 05-19-2024 Chronic Other nervous system disorders (1 source) Other chronic pain; Translations: [Other chronic pain] 05-19-2024 Chronic Other screening for suspected conditions (not [...] [Awaiting organ transplant status] Chronic Secondary malignancies (17 sources) Secondary malignant neoplasm of kidney; Translations: [Secondary malignant neoplasm of kidney] Onset: 3 08-04-2023 Chronic Spondylosis; intervertebral disc disorders; other back problems (2 sources) Degeneration of cervical intervertebral disc; Translations: [Other cervical disc degeneration, unspecified cervical region] 05-19-2024 Chronic Systemic lupus erythematosus and connective tissue disorders (5 sources) Keratoconjunctivitis sicca; 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] Chronic Unclassified (3 sources) COUGH, UNSPECIFIED; Translations: [COUGH, UNSPECIFIED] Onset: 2 Past or Other Problems Problem Classification Problem Date Documented Date Episodic/Chronic Acute and unspecified renal failure (17 sources) Injury of kidney; Translations: [Acute kidney failure, unspecified] Onset: 08-04-2023 08-04-2023 Episodic E Codes: Adverse effects of medical drugs [...] unspecified respiratory organs] Resolved: 06-28-2016 Episodic Other circulatory disease (17 sources) Orthostatic hypotension; Translations: [Orthostatic hypotension] Onset: 08-04-2023 08-04-2023 Episodic Other eye disorders (20 sources) Tear film insufficiency; Translations: [Tear film insufficiency, unspecified] Onset: 04-08-2019 Episodic Other eye disorders (20 sources) Dry eyes; Translations: [Tear film insufficiency, unspecified] Onset: 04-08-2019 Episodic Unclassified (5 sources) Procedure indicated; Translations: [Stem cell transplant candidate] Unclassified (13 sources) Never smoked tobacco; Translations: [Never a smoker] Unclassified (1 source) COUGH, UNSPECIFIED; Translations: [COUGH, UNSPECIFIED] Onset: 07-18-2022 Unclassified (2 sources) Onset: 12-05-2023 12-05-2023 NEGATED: Highlighted row has not occurred!Residual codes; unclassified (20 sources) Disease Episodic Results Test Name Value Interpretation Reference Range Facility ISTAT XRay CREon 04-15-2024 ISTAT GFR 36.811 Normal [facility] Comment on above: Result Comment: PERF ORMED BY: [address] [id number] PATHOLOGIST PROPERTY INSURANCE INSPECTOR BRIAN BALL M.D. Performed By: #### I SCRE #### [address] MR cervical spine wo/w conon 04-15-2024 MR cervical spine wo/w con [facility] [place] [address] [place] [address] MRI Report Signed Patient: Katerina Danielle MR#: [id number] 0 : 1960 Acct:[id number] Age/Sex: 63 / M ADM Date: 04/15/24 Loc: MR Room: Type: [facility] CLI Attending Dr: Nadeem Morrison DO Copies to: Nadeem Morrison DO Ordering Provider: Nadeem Morrison DO Date of Service: 04/15/24 MR/MR cervical spine wo/w con: C85.18, M62.838, R53.1 MR cervical spine wo/w con 04/15/2024 7:43 PM SIGNS AND SYMPTOMS: History of B-cell lymphoma, muscle spasms and generalized weakness PROTOCOL: Multiplanar multisequence MR images of the cervical spine were obtained with and without IV contrast CONTRAST: 20 mL of intravenous ProHance COMPARISON: 03/13/2016. FINDINGS: The bones of the cervical spine are in anatomic alignment. There is preservation of vertebral body heights. There is mild to moderate disc height loss at C5-C6. There is heterogeneous marrow signal within the clivus which is only partly visualized. There is a benign-appearing hemangioma within the T2 vertebral body and T3 vertebral body.. The cord is normal in signal. No epidural or paraspinous fluid collection is appreciated. The visualized paraspinous soft tissues are within normal limits. The prevertebral soft tissues are within normal limits. There is no abnormal postcontrast enhancement. At C2-C3: There is a normal disc, central canal, and neural foramen. At C3-C4: There is a normal disc, central canal, and neural foramen. At C4-C5: There is operative joint spurring and facet hypertrophy. There is moderate right and mild left neural foraminal narrowing without spinal canal narrowing. At C5-C6: There is a broad-based disc bulge with facet and operative joint degenerative change contributing to moderate to severe left and moderate right neural foramen. There is mild spinal canal narrowing. At C6-C7: There is a broad-based disc bulge with facet and operative injection change. There is mild neural foraminal narrowing and mild spinal canal narrowing. At C7-T1: There is a normal disc, central canal, and neural foramen. MR/MR cervical spine wo/w con IMPRESSION: Heterogeneous marrow signal is noted within the clivus which is partly visualized. Degenerative changes are noted at C4-5, C5-6, and C6-7 as above. No cord compression or cord signal abnormality. No abnormal postcontrast enhancement. Impression dictated by: Sorin Shah M.D.04/15/2024 10:18 PM Dictation Location: [facility]--13 Transcribed By: COURT 04/15/242217 Dictated By: Sorin Shah II, MD 04/15/242210 Signed By: 04/15/242217 Normal [facility] MR head/brain wo/w conon MR head/brain wo/w con [facility] [place] [address] [place] [address] MRI Report Signed Patient: Katerina Danielle MR#: [id number] 0 : 1960 Acct:[id number] Age/Sex: 63 / M ADM Date: 04/15/24 Loc: MR Room: Type: [facility] Attending Dr: Nadeem Morrison DO Copies to: Nadeem Morrison DO Ordering Provider: Nadeem Morrison DO Date of Service: 04/15/24 MR/MR head/brain wo/w con: C85.18, M62.838, R53.1 MR head/brain wo/w con 04/15/2024 7:43 PM SIGN AND SYMPTOMS: History of B-cell lymphoma, muscle spasms and generalized weakness PROTOCOL: Multiplanar multisequence MR images of the brain were obtained with and without IV contrast CONTRAST: 20 mL of intravenous ProHance COMPARISON: 03/13/2016 FINDINGS: Extra axial spaces: Age appropriate. Hemorrhage: None. Ventricular system: Within normal limits. Basal cisterns: Within normal limits and not effaced. Cerebral parenchyma: T2 and T2 FLAIR hyperintense foci are noted in the periventricular and subcortical white matter suggesting chronic microvascular ischemic change. Midline shift: None.. Cerebellum: Within normal limits. Brainstem: Within normal limits. OTHER: Calvarium: Normal marrow signal. Vascular system: Satisfactory flow voids within the anterior and posterior circulation. There is a developmental venous anomaly in the left occipital and parietal junction. Visualized Paranasal sinuses: There is a small left mastoid effusion. Mucosal thickening is noted in the maxillary sinuses. There is partial opacification of the sphenoid sinuses with an expansile clivus lesion presumably representing the previously treated mass.. Visualized Orbits: Within normal limits. Visualized upper cervical spine: Within normal limits. Sella and skull base: Within normal limits. MR/MR head/brain wo/w con IMPRESSION: No acute intracranial pathology or abnormal post contrast-enhancement. Posttreatment changes are noted in the clivus and floor of the sella. Mild chronic microvascular ischemic changes are noted. There is a developmental venous anomaly in the left occipital and parietal junction. This is a normal anatomic variant. Impression dictated by: Sorin Shah M.D.04/15/2024 10:23 PM Dictation Location: [place] [address] Transcribed By: [facility] 04/15/242222 Dictated By: Sorin Shah II, MD 04/15/242217 Signed By: 04/15/242222 Normal [facility] No Panel InformationOrdered By: Nadeem Morrison on 04-15-2024 Bedside Estimated GFR (eGFR) 36.811 [facility] Whole blood creatinine measu rementOrdered By: Nadeem Morrison on 04-15-2024 Creatinine [Mass/Vol] 2.0 mg/dL High 0.6-1.3 [facility] Comment on above: ER/ESD physician is notified/shown all ISTAT results.Critical values may be confirmed by laboratory testing ifdeemed necessary by ER attending doctor. Result Comment: ER/E SD physician is notified/shown all ISTAT results. Critical values may be confirmed by laboratory testing if deemed necessary by ER attending doctor. Performed By: #### I SCRE #### [facility] [address] [place] [address] Office Visit (Onco-Nephrolog y - Established)on 05-29-2023 Follow-up visit Diagnoses/Problems Benign essential HTN (401.1) (I10) CKD (chronic kidney disease), stage III (585.3) (N18.30) Hyperparathyroidism, secondary (588.81) (N25.81) Orders Benign essential HTN, CKD (chronic kidney disease), stage III, Hyperparathyroidism, secondary Basic Metabolic Panel; Status:Active; Requested for:02Mtm6052; Parathormone Intact, Serum; Status:Active; Requested for:64Mjx8881; Provider Impressions 1- CKD III: His Cr [...] 12/17/2017 2:50:40 PM Compazine Recorded By: Komal Jakc; 12/17/2017 2:53:15 PM dapsone Recorded By: Marcy [...] minutes prior (more content not included)... Normal [facility] Phone Note - Heme Onc-appoin tment question - 04/29/23 [facility] 04-28-2023 Phone Note - Heme Onc-appointment question - 04/29/23 appt Phone Call Information: Patient Demographics: Name: KATERINA DANIELLE Date: 1960 Address: [address] [place] [address] Date and Time: 28-Apr-2023 09:18 Caller Information: call from Call From: patient Primary Phone Number: [phone] Reason for Call: Reason for Callappointment question, [...] 09:34 by Tea Oro (N MGR) Normal [facility] Phone Note - Heme Onc-test r jose martinon 04-15-2023 Phone Note - Heme Onc-test results Phone Call Information: Patient Demographics: Name: KATERINA DANIELLE Date: 1960 Address: [address] [place] [address] Date and Time: 15-Apr-2023 14:56 Caller Information: call from Call From: patient Primary Phone Number: [phone] Reason for Call: Reason for Calltest results Message: Message: Calling to see if Dr. Sears had time to see results from labs on Friday His PCP really didn't find anything wrong and wants to order a CT. Patient would like to know Dr. Sears's thoughts first before continuing with this. Should have come from [place]. Team Communication: Team Communications: I spoke Katerina [...] Last Updated: 15-Apr-2023 15:30 by Zofia Smith (KLEVER) Normal [facility] Phone Note - Heme Onc-pain - Pain/tenderness in abdomenon 04-08-2023 Phone Note - Heme Onc-pain - Pain/tenderness in abdomen Phone Call Information: Patient Demographics: Name: KATERINA DANIELLE Date: 1960 Address: [address] [place] [address] Date and Time: 08-Apr-2023 09:26 Caller Information: call from Call From: patient Primary Phone Number: [phone] Reason for Call: Reason for Callpain, Pain/tenderness [...] (Signed 08-Apr-2023 10:46) Authored: Phone Call Information Dugan, Ashley (UNIT SECT) (Signed 08-Apr-2023 09:27) Authored: Phone Call Information, Outpatient Medication Profile, Orders, Allergies, Results Last Updated: 08-Apr-2023 10:46 by Nikki AguileraRN) Normal [facility] Initial Visit (Pain Medicine )on 02-20-2023 Initial [...] and evaluated by multiple physicians including his nuisance wildlife trapper, his oncologist. He has tried multiple different [...] no ea (more content not included)... Normal [facility] Clinic Note - Heme Onc Sched ulingon 01-31-2023 Clinic Note - Heme Onc Scheduling Retrieve Patient Instructions: Patient Instructions: Patient Instructions: RetrievePatient Instructions Instructions patient is scheduled w/ Pain Mngmnt as requested. Earliest available 02/19. End of Visit Documentation: Clinic Location/Phone Number: Clinic Location/Phone Number: [facility] End Of Visit MU Report Item: Visit Summary given or mailed to patientyes mailed Electronic Signatures: Nicole Jeong (SEC) (Signed 31-Jan-2023 16:14) Authored: Retrieve Patient Instructions, End of Visit Documentation Last Updated: 31-Jan-2023 16:14 by Nicole Jeong (SEC) Normal [facility] Phone Note - Heme Onc-appoin tment question - Referral to paion 01-31-2023 Phone Note - Heme Onc-appointment question - Referral to brian Phone Call Information: Patient Demographics: Name: KATERINA DANIELLE Date: 1960 Address: [address] [place] [address] Date and Time: 31-Jan-2023 12:13 Caller Information: call from Call From: patient Primary Phone Number: [phone] Reason for Call: Reason for Callappointment question, [...] 12:22 by Tea Oro (N MGR) Normal [facility] Office Visit (Onco-Nephrolog y - Established)on 01-29-2023 [...] transplant candidate Basic Metabolic Panel; Status:Active; Requested for:[id number]; Parathormone Intact, Serum; Status:Active; Requested for:83Vik3356; Phosphorus, Serum; Status:Active; Requested for:98Ihd8042; Unlinked Stop: Losartan Potassium 25 MG Oral [...] Known Food (more content not included)... Normal [employer] Phone Note - Heme Onc-order entryon 01-29-2023 Phone Note - Heme Onc-shipping order clerk Phone Call Information: Patient Demographics: Name: KATERINA DANIELLE Date: 1960 Address: [address] [place] [address] Primary Phone Number: [phone] Reason for Call: Reason for Callorder entry [...] 29-Jan-2023 14:13 by Zofia Smith (RN) Normal [facility] Tobacco Screening.on 023 Fall risk assessment b) One or more fall s in the last year [facility] 3 DO Work Phone: Tobacco use status CPHS b) No [facility] 3 DO Work Phone: Clinic Note - Heme Onc Sched ulingon 01-24-2023 Clinic Note - Heme Onc Scheduling Retrieve Patient Instructions: Patient Instructions: Patient Instructions: RetrievePatient Instructions End of Visit Documentation: Clinic Location/Phone Number: Clinic Location/Phone Number: [facility] End Of Visit MU Report Item: Visit Summary given or mailed to patientyes mailed to patient Electronic Signatures: Nicole Jeong (SEC) (Signed 24-Jan-2023 14:06) Authored: Retrieve Patient Instructions, End of Visit Documentation Last Updated: 24-Jan-2023 14:06 by Nicole Jeong (SEC) Normal [facility] Clinic Note - Heme Onc-Follo w Up [...] referred to Dr. Rodriguez in oncology at [facility] for evaluation. 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 Bone marrow biopsy was done which was negative for involvement with lymphoma . He also underwent an LP with low yield. Because of his meningeal enhancement and location close to DRY CHAIN OFFBEARER, he was treated with hyperCVAD-MA. He received [...] was compared to this patient's previous biopsy ([id number]). The previous biopsy demonstrated areas of necrosis [...] TP53 mutations. The patient was enrolled on [id number], Venetoclax+RICE. Cycle 1 started 10/29/17. Had tumor [...] pneumonitis. The patient was recently readmitted to [facility] (06/16-06/18/18) for fever and PNA. 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 He completed by mouth Levaquin. The patient was admitted to [facility] (08/18-08/21/18) with a new PE. He was [...] CAR T Cell infusion 01/04/19 with tisagenlecleucel ([employer]) with preparative regimen of fludarabine and cytoxan. History of Present Illness: ID Statement: KATERINA DANIELLE is a 62 year old Male (more content not included)... Normal [facility] Clinic Note - Intakeon 01-22 Clinic Note [...] 22-Jan-2023 13:02 by Lindsay Yadav (PCNA) Normal [facility] COMPREHENSIVE PANELon 2022 ALBUMIN Canceled Normal [facility] Comment on above: Order Comment: TEST COMPREHENSIVE PANEL WAS CANCELLED, 01/21/2023 08:08 NO SPECIMEN RECEIVED IN LAB. Performed By: #### C MP #### [address] [place] [address] ALKALINE PHOSPHATASE Canceled Normal [facility] Comment on above: Order Comment: TEST COMPREHENSIVE PANEL WAS CANCELLED, 01/21/2023 08:08 NO SPECIMEN RECEIVED IN LAB. Performed By: #### C MP #### [address] [place] [address] ALT Canceled Normal [facility] Comment on above: Order Comment: TEST COMPREHENSIVE PANEL WAS CANCELLED, 01/21/2023 08:08 NO SPECIMEN RECEIVED IN LAB. Result Comment: Yisel ents treated with Sulfasalazine may generate falsely decreased results for ALT. Performed By: #### C MP #### [address] [place] [address] ANION GAP Canceled Normal [facility] Comment on above: Order Comment: TEST COMPREHENSIVE PANEL WAS CANCELLED, 01/21/2023 08:08 NO SPECIMEN RECEIVED IN LAB. Performed By: #### C MP #### [address] [place] [address] AST Canceled Normal [facility] Comment on above: Order Comment: TEST COMPREHENSIVE PANEL WAS CANCELLED, 01/21/2023 08:08 NO SPECIMEN RECEIVED IN LAB. Performed By: #### C MP #### [address] [place] [address] BICARBONATE Canceled Normal [facility] Comment on above: Order Comment: TEST COMPREHENSIVE PANEL WAS CANCELLED, 01/21/2023 08:08 NO SPECIMEN RECEIVED IN LAB. Performed By: #### C MP #### [address] [place] [address] BILIRUBIN,TOTAL Canceled Normal [facility] Comment on above: Order Comment: TEST COMPREHENSIVE PANEL WAS CANCELLED, 01/21/2023 08:08 NO SPECIMEN RECEIVED IN LAB. Performed By: #### C MP #### [address] [place] [address] CALCIUM Canceled Normal [facility] Comment on above: Order Comment: TEST COMPREHENSIVE PANEL WAS CANCELLED, 01/21/2023 08:08 NO SPECIMEN RECEIVED IN LAB. Performed By: #### C MP #### [address] [place] [address] CHLORIDE Canceled Normal [facility] Comment on above: Order Comment: TEST COMPREHENSIVE PANEL WAS CANCELLED, 01/21/2023 08:08 NO SPECIMEN RECEIVED IN LAB. Performed By: #### C MP #### [address] [place] [address] CREATININE Canceled Normal [facility] Comment on above: Order Comment: TEST COMPREHENSIVE PANEL WAS CANCELLED, 01/21/2023 08:08 NO SPECIMEN RECEIVED IN LAB. Performed By: #### C MP #### [address] [place] [address] eGFR FEMALE Canceled Normal [facility] Comment on above: Order Comment: TEST COMPREHENSIVE PANEL WAS CANCELLED, 01/21/2023 08:08 NO SPECIMEN RECEIVED IN LAB. Result Comment: CALC ULATIONS OF ESTIMATED GFR ARE PERFORMED USING THE 2020 CKD-EPI STUDY REFIT EQUATION WITHOUT THE RACE VARIABLE FOR THE IDMS-TRACEABLE CREATININE METHODS. https://jasn.asnjournals.org/content/early/ASN.860200 7494 Performed By: #### C MP #### [address] [place] [address] eGFR MALE Canceled Normal [facility] Comment on above: Order Comment: TEST COMPREHENSIVE PANEL WAS CANCELLED, 01/21/2023 08:08 NO SPECIMEN RECEIVED IN LAB. Result Comment: CALC ULATIONS OF ESTIMATED GFR ARE PERFORMED USING THE 2020 CKD-EPI STUDY REFIT EQUATION WITHOUT THE RACE VARIABLE FOR THE IDMS-TRACEABLE CREATININE METHODS. https://jasn.asnjournals.org/content/early/ASN.909513 3179 Performed By: #### C MP #### [address] [place] [address] GLUCOSE Canceled Normal [facility] Comment on above: Order Comment: TEST COMPREHENSIVE PANEL WAS CANCELLED, 01/21/2023 08:08 NO SPECIMEN RECEIVED IN LAB. Performed By: #### C MP #### [address] [place] [address] POTASSIUM Canceled Normal [facility] Comment on above: Order Comment: TEST COMPREHENSIVE PANEL WAS CANCELLED, 01/21/2023 08:08 NO SPECIMEN RECEIVED IN LAB. Performed By: #### C MP #### [address] [place] [address] SODIUM Canceled Normal [facility] Comment on above: Order Comment: TEST COMPREHENSIVE PANEL WAS CANCELLED, 01/21/2023 08:08 NO SPECIMEN RECEIVED IN LAB. Performed By: #### C MP #### [address] [place] [address] TOTAL PROTEIN Canceled Normal [facility] Comment on above: Order Comment: TEST COMPREHENSIVE PANEL WAS CANCELLED, 01/21/2023 08:08 NO SPECIMEN RECEIVED IN LAB. Performed By: #### C MP #### [address] [place] [address] UREA NITROGEN Canceled Normal [facility] Comment on above: Order Comment: TEST COMPREHENSIVE PANEL WAS CANCELLED, 01/21/2023 08:08 NO SPECIMEN RECEIVED IN LAB. Performed By: #### C MP #### [address] [place] [address] LDHon 01-21-2023 LDH Canceled Normal [facility] Comment on above: Order Comment: TEST LDH WAS CANCELLED, 01/21/2023 08:08 NO SPECIMEN RECEIVED IN LAB. Performed By: #### L DH ####[facility] [place] [address] [place] [address] MAGNESIUMon 01-21-2023 MAGNESIUM Canceled Normal [facility] Comment on above: Order Comment: TEST MAGNESIUM WAS CANCELLED, 01/21/2023 08:08 NO SPECIMEN RECEIVED IN LAB. Performed By: #### M G ####[address] [place] [address] Phone Note - Heme Onc-Insura nce Medical Hxon 01-14-2023 Phone Note - Heme Onc-Insurance Medical Hx Phone Call Information: Patient Demographics: Name: KATERINA DANIELLE Date: 1960 Address: [address] [place] [address] Date and Time: 14-Jan-2023 10:30 Caller Information: call from Call From: patient Primary Phone Number: [phone] Reason for Call: Reason for CallInsurance Medical Hx Message: Message: Insurance company re-evaluating him (Alfie Espinosa). Would like a copy of medical history [...] insurance that he needs to be re-evaluated. [facility] Dr. Saleem's office sent in the form [...] 14:19 by Ashley Dugan (UNIT SECT) Normal [facility] IMMUNOGLOBULIN IGG QUANTITAT IVEon 01-03-2023 Immunoglobulin G, Qn, Serum 997 mg/dL Normal [id number] [facility] Comment on above: Performed By: #### M G, LDH, CMP #### [facility] [address] [place], [place] [address] Dr. Ladan Mcdonald Office Visiton 12-20-2022 Follow-up [...] All medical record entries made by the Marleneibhardik were at my direction and personally dictated [...] signed for PCP and Nohelia Machado DO, Screen Printing Equipment [employer]ter in [employer]. If you develop fever, loss [...] that point, PCP referred patient to a Screen Printing Equipment Setter at [facility]. He saw Nohelia Machado DO, Screen Printing Equipment Setter at [facility], did a breathing test and ordered [...] 1 PUFF (more content not included)... Normal [facility] HEREDITARY HEMOCHROMATOSIS, DNA ANALYSISon 10-21-2022 Hereditary Hemochromatosis Comment Normal [facility] Comment on above: Result Comment: Resu lts: c.845G>A (p.Uha201Pxa) - Not Detected c.187C>G (p.Dif00Lpj) - Detected, heterozygous c.193A>T (p.Rbm89Nem) - Not Detected Not associated with increased [...] for patients who are homozygous for c.845G>A (p.Dgc435Osh) and have yet to experience clinical symptoms. . Comments: The most common HFE variants associated with hereditary hemochromatosis are c.845G>A (p.Gzb808Hqm), c.187C>G (p.Ddm71Ypd), c.193A>T (p.Bmz63Zvg). While patients homozygous for c.845G>A (p.Eol005Rla) are the most likely to present clinical symptoms, less than 10% develop clinically significant iron overload with tissue and organ damage. . Genetic counseling is recommended to discuss the potential clinical implications of positive results, as well as recommendations for testing family members. Genetic Coordinators are available for health care providers to discuss results at [phone]). . Test Details: Three variants analyzed: c.845G>A (p.Wny269Qwp), commonly referred to as C282Y c.187C>G (p.Hmi42Vha), commonly referred to as H63D c.193A>T (p.Jpz34Ngi), commonly referred to as S65C . Methods/Limitations: [...] developed and its performance characteristics determined by [employer]. It has not been cleared or approved by the Food and Drug Administration. . References: Jared INMAN, Keith PC, Shelby KV, Rishabh LW, Heriberto ; [place] Association for the Study of Liver Diseases. Diagnosis and management of hemochromatosis: 2011 practice guideline by the [place] Association for the Study of Liver Diseases. Hepatology. 2010;54(1):328-43. doi: 10.1002/hep.95164. PMID: 45057079; PMCID: [id number]. Consuelo G, Lisa P, Janeth CODY, Marcel H, Nick O, Jeffrey S, Ryder I, Frederick M, Candace Hale. QN best practice guidelines for the molecular genetic diagnosis of hereditary hemochromatosis (HH). Eur J Hum Winter. 2016 Nov;24(4):479-95. doi: 10.1038/ejhg.2015.128. Epub 2014Mar 08. PMID: 19604604; PMCID: [id number]. . Leslee Cadena, PhD, FACMG Dioni Trinidad, PhD Sunday Sofia, PhD, FACMG Angelito Beard, PhD, FACMG Tom Wills, PhD, FACMG Helio Henry, PhD, FACMG Katie Collazo, PhD, FAC Yun Peterson, PhD, FAC Performed By: #### H HDNA #### [facility] [address] [place] [address] [address] Ladan Mcdonald FERRITINon 10-11-2022 Ferritin [Mass/Vol] 1497.0 ng/mL Critically high 26.0-388. 0 [facility] Comment on above: Performed By: #### M G, LDH, CMP #### [facility] [address] [place] [address] [address] Ladan Mcdonald IRON AND TIBCon 10-11-2022 % SATURATION 35.6 % Normal [facility] Comment on above: Performed By: #### M G, LDH, CMP #### [facility] [address] [place] [address] [address] Ladan Mcdonald Iron [Mass/Vol] 99.0 ug/dL Normal 65.0-175.[address] [facility] Comment on above: Performed By: #### M G, LDH, CMP #### [facility] [address] [place] [address] Dr. Ladan Mcdonald TIBC DIRECT 278.0 ug/dL Normal 250.0-450.0 [facility] Comment on above: Performed By: #### M G, LDH, CMP #### [facility] [address] [place] [address] Dr. Ladan Mcdonald MAGNESIUMon 10-11-2022 Magnesium [Mass/Vol] 2.2 mg/dL Normal 1.8-2.4 [facility] Comment on above: Performed By: #### M G, LDH, CMP #### [facility] [address] [place] [address] Dr. Ladan Mcdonald TSHon 10-11-2022 TSH 0.839 uIU/mL Normal 0.358-3.740 [facility] Comment on above: Performed By: #### M G, LDH, CMP #### [facility] [address] [place] [address] Dr. Ladan Mcdonald VIT B12 AND FOLATEon 023 Cobalamin (Vitamin B12) [Mass/Vol] 632.0 pg/mL Normal 193.0-986.0 [facility] Comment on above: Performed By: #### F ERR, B12FOL, FETIBC #### [facility] [address] [place] [address] Dr. Ladan Mcdonald FOLATE 10.20 ng/mL Normal 8.60-58.90 [facility] Comment on above: Performed By: #### F ERR, B12FOL, FETIBC #### [facility] [address] [place] [address] Dr. Ladan Mcdonald CBC AND DIFFERENTIALon 10-10 % AUTOMATED IMMATURE GRAN Canceled Normal [facility] Comment on above: Order Comment: TEST CBC AND DIFFERENTIAL WAS CANCELLED, 10/10/2022 15:36 NO SAMPLE RECIEVED/RELEASED IN ERROR Result Comment: Caryn ture Granulocyte Count (IG) includes promyelocytes, myelocytes and metamyelocytes but does not include bands. Percent differential counts (%) should be interpreted in the context of the absolute cell counts (cells/L). Performed By: #### C BCDF #### [address] [place] [address] % BASOPHIL Canceled Normal [facility] Comment on above: Order Comment: TEST CBC AND DIFFERENTIAL WAS CANCELLED, 10/10/2022 15:36 NO SAMPLE RECIEVED/RELEASED IN ERROR Performed By: #### C BCDF #### [address] [place] [address] % EOSINOPHIL Canceled Normal [facility] Comment on above: Order Comment: TEST CBC AND DIFFERENTIAL WAS CANCELLED, 10/10/2022 15:36 NO SAMPLE RECIEVED/RELEASED IN ERROR Performed By: #### C BCDF #### [address] [place] [address] % LYMPHOCYTE Canceled Normal [facility] Comment on above: Order Comment: TEST CBC AND DIFFERENTIAL WAS CANCELLED, 10/10/2022 15:36 NO SAMPLE RECIEVED/RELEASED IN ERROR Performed By: #### C BCDF #### [address] [place] [address] % MONOCYTE Canceled Normal [facility] Comment on above: Order Comment: TEST CBC AND DIFFERENTIAL WAS CANCELLED, 10/10/2022 15:36 NO SAMPLE RECIEVED/RELEASED IN ERROR Performed By: #### C BCDF #### [address] [place] [address] % NEUTROPHIL Canceled [facility] Comment on above: Order Comment: TEST CBC AND DIFFERENTIAL WAS CANCELLED, 10/10/2022 15:36 NO SAMPLE RECIEVED/RELEASED IN ERROR Performed By: #### C BCDF #### [address] [place] [address] BASOPHIL Canceled Normal [facility] Comment on above: Order Comment: TEST CBC AND DIFFERENTIAL WAS CANCELLED, 10/10/2022 15:36 NO SAMPLE RECIEVED/RELEASED IN ERROR Performed By: #### C BCDF #### [address] [place] [address] DIFFERENTIAL Canceled Normal [facility] Comment on above: Order Comment: TEST CBC AND DIFFERENTIAL WAS CANCELLED, 10/10/2022 15:36 NO SAMPLE RECIEVED/RELEASED IN ERROR Performed By: #### C BCDF #### [address] [place] [address] EOSINOPHIL Canceled Normal [facility] Comment on above: Order Comment: TEST CBC AND DIFFERENTIAL WAS CANCELLED, 10/10/2022 15:36 NO SAMPLE RECIEVED/RELEASED IN ERROR Performed By: #### C BCDF #### [address] [place] [address] HCT Canceled [facility] Comment on above: Order Comment: TEST CBC AND DIFFERENTIAL WAS CANCELLED, 10/10/2022 15:36 NO SAMPLE RECIEVED/RELEASED IN ERROR Performed By: #### C BCDF #### [address] [place] [address] HGB Canceled [facility] Comment on above: Order Comment: TEST CBC AND DIFFERENTIAL WAS CANCELLED, 10/10/2022 15:36 NO SAMPLE RECIEVED/RELEASED IN ERROR Performed By: #### C BCDF #### [address] [place] [address] LYMPHOCYTE Canceled [facility] Comment on above: Order Comment: TEST CBC AND DIFFERENTIAL WAS CANCELLED, 10/10/2022 15:36 NO SAMPLE RECIEVED/RELEASED IN ERROR Performed By: #### C BCDF #### [address] [place] [address] MCHC Canceled [facility] Comment on above: Order Comment: TEST CBC AND DIFFERENTIAL WAS CANCELLED, 10/10/2022 15:36 NO SAMPLE RECIEVED/RELEASED IN ERROR Performed By: #### C BCDF #### [address] [place] [address] MCV Canceled [facility] Comment on above: Order Comment: TEST CBC AND DIFFERENTIAL WAS CANCELLED, 10/10/2022 15:36 NO SAMPLE RECIEVED/RELEASED IN ERROR Performed By: #### C BCDF #### [address] [place] [address] MONOCYTE Canceled [facility] Comment on above: Order Comment: TEST CBC AND DIFFERENTIAL WAS CANCELLED, 10/10/2022 15:36 NO SAMPLE RECIEVED/RELEASED IN ERROR Performed By: #### C BCDF #### [address] [place] [address] NEUTROPHIL Canceled [facility] Comment on above: Order Comment: TEST CBC AND DIFFERENTIAL WAS CANCELLED, 10/10/2022 15:36 NO SAMPLE RECIEVED/RELEASED IN ERROR Performed By: #### C BCDF #### [address] [place] [address] PLT Canceled [facility] Comment on above: Order Comment: TEST CBC AND DIFFERENTIAL WAS CANCELLED, 10/10/2022 15:36 NO SAMPLE RECIEVED/RELEASED IN ERROR Performed By: #### C BCDF #### [address] [place] [address] RBC Canceled [facility] Comment on above: Order Comment: TEST CBC AND DIFFERENTIAL WAS CANCELLED, 10/10/2022 15:36 NO SAMPLE RECIEVED/RELEASED IN ERROR Performed By: #### C BCDF #### [address] [place] [address] RDW-CV Canceled [facility] Comment on above: Order Comment: TEST CBC AND DIFFERENTIAL WAS CANCELLED, 10/10/2022 15:36 NO SAMPLE RECIEVED/RELEASED IN ERROR Performed By: #### C BCDF #### [address] [place] [address] WBC Canceled [facility] Comment on above: Order Comment: TEST CBC AND DIFFERENTIAL WAS CANCELLED, 10/10/2022 15:36 NO SAMPLE RECIEVED/RELEASED IN ERROR Performed By: #### C BCDF #### [address] [place] [address] Clinic Note - Heme Onc Sched ulingon 10-10-2022 Clinic Note - Heme Onc Scheduling Retrieve Patient Instructions: Patient Instructions: Patient Instructions: RetrievePatient Instructions Instructions Typenutrition Instructions Return to clinic Please call the office with any new or worsening symptoms in the meantime. End of Visit Documentation: Clinic Location/Phone Number: Clinic Location/Phone Number: [address] [address] End Of Visit MU Report Item: Visit Summary given or mailed to patientyes Electronic Signatures: Whit Dugan (SEC) (Signed 10-Oct-2022 14:02) Authored: Retrieve Patient Instructions, End of Visit Documentation Last Updated: 10-Oct-2022 14:02 by Whit Dugan (SEC) [facility] Clinic Note - Heme Onc-Follo w Up [...] referred to Dr. Rodriguez in oncology at [facility] for evaluation. 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 Bone marrow biopsy was done which was negative for involvement with lymphoma . He also underwent an LP with low yield. Because of his meningeal enhancement and location close to DRY CHAIN OFFBEARER, he was treated with hyperCVAD-MA. He received [...] was compared to this patient's previous biopsy ([id number]). The previous biopsy demonstrated areas of necrosis [...] TP53 mutations. The patient was enrolled on [id number], Venetoclax+RICE. Cycle 1 started 10/29/17. Had tumor [...] pneumonitis. The patient was recently readmitted to [facility] (06/16-06/18/18) for fever and PNA. 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 He completed by mouth Levaquin. The patient was admitted to [facility] (08/18-08/21/18) with a new PE. He was [...] CAR T Cell infusion 01/04/19 with tisagenlecleucel ([employer]) with preparative regimen of fludarabine and cytoxan. History of Present Illness: ID Statement: KATERINA DANIELLE is a 61 year old Male (more content not included)... [facility] Clinic Note - Intakeon 10-10 Clinic Note [...] 3 Weights & HeightsDate: Weight/Scale Type:Height: 15-Aug-2022 12:54842.7 kg 182.5 cm 21-Feb-2022 13:99450 kg 182.5 cm 21-Nov-2021 11:57328.3 kg / standing .5 cm SpO2 (%)94 [...] an assistive deviceno Electronic Signatures: Linda Romero (MA II) (Signed 10-Oct-2022 12:45) Authored: Patient Visit Information, Vital Signs, Allergies, Outpatient Medication Profile, Notification, Travel History, Falls Last Updated: 10-Oct-2022 12:45 by Linda Romero (MA II) [facility] CBC AUTO DIFFon 09-27-2022 BASO # 0.0 103/ul Normal 0.0-0.1 [facility] Comment on above: Performed By: #### C BC #### [facility] [address] [address] [address] Ladan Mcdonald Basophils/100 WBC (Bld) 0.3 % Normal 0.2-2.0 [facility] Comment on above: Performed By: #### C BC #### [facility] [address] [address] [address] Ladan Mcdonald EO # 0.2 103/ul Normal 0.0-0.7 [facility] Comment on above: Performed By: #### C BC #### [facility] [address] [address] [address] Ladan Mcdonald Eosinophils/100 WBC (Bld) 4.8 % Normal 0.9-7.0 [facility] Comment on above: Performed By: #### C BC #### [facility] [address] [address] [address] Ladan Mcdonald Erythrocyte distribution width (RBC) [Ratio] 16.1 % Critically high 11.0-15.0 [facility] Comment on above: Performed By: #### C BC #### [facility] [address] [address] [address] Ladan Mcdonald Hematocrit (Bld) [Volume fraction] 46.7 % Normal 42.0-54.0 [facility] Comment on above: Performed By: #### C BC #### [facility] [address] [address] [address] Ladan Mcdonald Hemoglobin (Bld) [Mass/Vol] 13.6 g/dL Critically low 14.0-18.0 [facility] Comment on above: Performed By: #### C BC #### [facility] [address] [place] [address] Dr. Ladan Mcdonald IG # 0.02 10e3/ul Normal 0.00-0.03 [facility] Comment on above: Performed By: #### C BC #### [facility] [address] [place] [address] Dr. Ladan Mcdoanld IG % 0.5 % Normal 0.0-0.5 [facility] Comment on above: Performed By: #### C BC #### [facility] [address] [place] [address] Dr. Ladan Mcdonald LYMPH # 1.0 103/ul Critically low 1.2-3.8 [facility] Comment on above: Performed By: #### C BC #### [facility] [address] [place] [address] Dr. Ladan Mcdonald Lymphocytes/100 WBC (Bld) 26.1 % Normal 20.5-60.0 [facility] Comment on above: Performed By: #### C BC #### [facility] [address] [place] [address] Dr. Ladan Mcdonald MANUAL DIFF REQ NO Normal [facility] Comment on above: Performed By: #### C BC #### [facility] [address] [place] [address] Dr. Ladan Mcdonald MCH (RBC) [Entitic mass] 26.6 pg Normal 25.9-34.0 [facility] Comment on above: Performed By: #### C BC #### [facility] [address] [place] [address] Dr. Ladan Mcdonald MCHC (RBC) [Mass/Vol] 29.1 g/dL Critically low 29.9-35.2 [facility] Comment on above: Performed By: #### C BC #### [facility] [id number] Ladan Mcdonald MCV (RBC) [Entitic vol] 91.4 fL Normal 80.0-94.0 [facility] Comment on above: Performed By: #### C BC #### [facility] [address] [address] [address] Ladan Mcdonald MONO # 0.4 103/ul Normal 0.3-0.8 [facility] Comment on above: Performed By: #### C BC #### [facility] [address] [address] [address] Ladan Mcdonald Monocytes/100 WBC (Bld) 8.8 % Normal 1.7-12.0 [facility] Comment on above: Performed By: #### C BC #### [facility] [address] [place] [address] Dr. Ladan Mcdonald NEUT # 2.4 103/ul Normal 1.4-6.5 [facility] Comment on above: Performed By: #### C BC #### [facility] [address] [place] [address] Dr. Ladan Mcdonald Neutrophils/100 WBC (Bld) 59.5 % Normal 43.0-75.0 [facility] Comment on above: Performed By: #### C BC #### [facility] [address] [place] [address] Dr. Ladan Mcdonald Platelet mean volume (Bld) [Entitic vol] 10.1 fL Normal 9.5-13.5 [facility] Comment on above: Performed By: #### C BC #### [facility] [address] [place] [address] Dr. Ladan Mcdonald PLT 132 103/ul Critically low 150-450 [facility] Comment on above: Performed By: #### C BC #### [facility] [address] [place], [place] [id number] Dr. Ladan Mcdonald RBC 5.11 106/ul Normal 4.70-6.10 [facility] Comment on above: Performed By: #### C BC #### [facility] [address] [place] [address] Dr. Ladan Mcdonald WBC 4.0 103/ul Normal 4.0-11.0 [facility] Comment on above: Performed By: #### C BC #### [facility] [address] [address] [address] Ladan Mcdonald LDHon 09-27-2022 LDH 256 U/L Critically high 85-227 [facility] Comment on above: Performed By: #### M G, LDH, CMP #### [facility] [address] [address] [address] Ladan Mcdonald MAGNESIUMon 09-27-2022 Magnesium [Mass/Vol] 2.1 mg/dL Normal 1.8-2.4 [facility] Comment on above: Performed By: #### M G, LDH, CMP #### [facility] [address] [place] [address] Dr. Ladan Mcdonald PROF 14(COMP METB)on 023 Albumin [Mass/Vol] 3.5 g/dL Normal 3.4-5.0 [facility] Comment on above: Performed By: #### M G, LDH, CMP #### [facility] [address] [address] [address] Ladan Mcdonald Albumin/Globulin [Mass ratio] 1.0 {ratio} Normal [facility] Comment on above: Performed By: #### M G, LDH, CMP #### [facility] [address] [place] [address] Dr. Ladan Mcdonald ALP [Catalytic activity/Vol] 121 U/L Critically high 46-116 [facility] Comment on above: Performed By: #### M G, LDH, CMP #### [facility] [address] [address] [address] Ladan Mcdonald ALT [Catalytic activity/Vol] 51 U/L Normal 16-63 [facility] Comment on above: Performed By: #### M G, LDH, CMP #### [facility] [address] [address] [address] Ladan Mcdonald Anion gap [Moles/Vol] 11.7 mmol/L Normal [facility] [place] Comment on above: Performed By: #### M G, LDH, CMP #### [facility] [address] [address] [address] Ladan Mcdonald AST [Catalytic activity/Vol] 33 U/L Normal 15-37 [facility] Comment on above: Performed By: #### M G, LDH, CMP #### [facility] [address] [place] [address] Dr. Ladan Mcdonald Bilirubin [Mass/Vol] 0.4 mg/dL Normal 0.2-1.0 [facility] Comment on above: Performed By: #### M G, LDH, CMP #### [facility] [address] [place] [address] Dr. Ladan Mcdonald Calcium [Mass/Vol] 9.4 mg/dL Normal 8.5-10.1 [facility] Comment on above: Performed By: #### M G, LDH, CMP #### [facility] [address] [place] [address] Dr. Ladan Mcdonald Chloride [Moles/Vol] 104 mmol/L Normal 98-107 [facility] Comment on above: Performed By: #### M G, LDH, CMP #### [facility] [address] [place] [address] Dr. Ladan Mcdonald CO2 [Moles/Vol] 29.0 mmol/L Normal 21.0-32.0 [facility] Comment on above: Performed By: #### M G, LDH, CMP #### [facility] [address] [place] [address] Dr. Ladan Mcdonald Creatinine [Mass/Vol] 1.61 mg/dL Critically high 0.70-1.30 [facility] Comment on above: Performed By: #### M G, LDH, CMP #### [facility] [address] [place] [address] Dr. Ladan Mcdonald EGFR-AF NIGERIAN 53 mL/min/1.73m2 Critically low >=60 [facility] Comment on above: Performed By: #### M G, LDH, CMP #### [facility] [address] [place] [address] Dr. Ladan Mcdonald EGFR-NON AF NIGERIAN 44 mL/min/1.73m2 Critically low >=60 [facility] Comment on above: Performed By: #### M G, LDH, CMP #### [facility] [address] [address] [address] Ladan Mcdonald Globulin (S) [Mass/Vol] 3.6 g/dL Normal [facility] Comment on above: Performed By: #### M G, LDH, CMP #### [facility] [address] [address] [address] Ladan Mcdonald Glucose [Mass/Vol] 107 mg/dL Critically high 74-106 [facility] Comment on above: Performed By: #### M G, LDH, CMP #### [facility] [address] [place] [address] Dr. Ladan Mcdonald Potassium [Moles/Vol] 4.7 mmol/L Normal 3.5-5.1 [facility] Comment on above: Performed By: #### M G, LDH, CMP #### [facility] [address] [place] [address] Dr. Ladan Mcdonald Protein [Mass/Vol] 7.1 g/dL Normal 6.4-8.2 [facility] Comment on above: Performed By: #### M G, LDH, CMP #### [facility] [address] [place] [address] Dr. Ladan Mcdonald Sodium [Moles/Vol] 140 mmol/L Normal 136-145 [facility] Comment on above: Performed By: #### M G, LDH, CMP #### [facility] [address] [place] [address] Dr. Ladan Mcdonald Urea nitrogen [Mass/Vol] 27.0 mg/dL Critically high 7.0-18.0 [facility] Comment on above: Performed By: #### M G, LDH, CMP #### [facility] [address] [place] [address] Dr. Ladan Mcdonald Urea nitrogen/Creatinine [Mass ratio] 16.8 mg/mg Normal [facility] Comment on above: Performed By: #### M G, LDH, CMP #### [facility] [address] [place], [place] [address] Dr. Ladan Mcdonald Phone Note - Heme Onc-lab re quisitionon 09-27-2022 Phone Note - Heme Onc-lab requisition Phone Call Information: Patient Demographics: Name: KATERINA DANIELLE Date: 1960 Address: [address] [place] [address] Date and Time: 27-Sep-2022 08:29 Caller Information: call from Primary Phone Number: [phone] Reason for Call: Reason for Calllab requisition Message: Message: VM Needs lab order sent to [facility] in [place], [place] or [facility] in [place], [place]. Has appointment scheduled for next . Patient called back- fax number to lab at 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 Confirmation received 10:21am. Ashley Dugan 09/27/2022 [...] 27-Sep-2022 10:26 by Ashley Dugan (UNIT SECT) [facility] Phone Note - Heme Onc-refill medication...on 09-06-2022 Phone Note - Heme Onc-refill medication... Phone Call Information: Patient Demographics: Name: KATERINA DANIELLE Date: 1960 Address: [address] [place] [address] Date and Time: 06-Sep-2022 10:40 Caller Information: call from Call From: patient Primary Phone Number: [phone] Reason for Call: Reason for Callrefill medication Message: Message: Patient fills Gabapentin with [facility] that is now [facility]. He has 14 pills left. They will not refill for him until 09/22/22 and then say it will be 1-2 weeks before delivery. He will be out of medication by then. Asking if office can rectify Team Communication: Clinician note: contacted patient Disposition: Rx sent by eprescribe Team Communications: Spoke with Yas at [facility] pharmacy. States patient needs a refill for gabapentin sent in and then he will be able to receive the medication within 7 business days or less. Tea Oro 09/06/2022 11:[address] Sears: KATERINA DANIELLE ([id number]): Needs refill of gabapentin 300mg daily please [...] 11:22 by Tea Oro (N MGR) [facility] Clinic Note - Heme Onc-Follo w Up [...] referred to Dr. Rodriguez in oncology at [facility] for evaluation. 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 Bone marrow biopsy was done which was negative for involvement with lymphoma . He also underwent an LP with low yield. Because of his meningeal enhancement and location close to DRY CHAIN OFFBEARER, he was treated with hyperCVAD-MA. He received [...] was compared to this patient's previous biopsy ([id number]). The previous biopsy demonstrated areas of necrosis [...] TP53 mutations. The patient was enrolled on [id number], Venetoclax+RICE. Cycle 1 started 10/29/17. Had tumor [...] pneumonitis. The patient was recently readmitted to [facility] (06/16-06/18/18) for fever and PNA. 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 He completed by mouth Levaquin. The patient was admitted to [facility] (08/18-08/21/18) with a new PE. He was [...] CAR T Cell infusion 01/04/19 with tisagenlecleucel ([facility]) with preparative regimen of fludarabine and cytoxan. History of Present Illness: ID Statement: KATERINA DANIELLE is a 61 year old Male (more content not included)... [facility] Clinic Note - Intakeon 08-15 Clinic Note [...] 3 Weights & HeightsDate: Weight/Scale Type:Height: 21-Feb-2022 13:89834 kg 182.5 cm 21-Nov-2021 11:02873.3 kg / standing hovbq673.5 cm 23-Aug-2021 13:50559.3 kg / standing dermv598.5 cm SpO2 (%)94 % SpO2 Patient Onroom [...] for us to knowno Adv Dir: Living [facility] Declaration of Mental Health Treatmentno Violence: Are you or have you been threatened or abused physically,emotionally or sexually abused by anyoneno Do you feel UNSAFE going back to the place you are livingno Depression: Past 2 wks: [place] down, depressed or hopelessno Past 2 wks: [place] little interest/pleasure doing thingsno Any Thoughts of [...] Updated: 15-Aug-2022 12:44 by Linda Romero (PAKO PAGAN) [facility] CBC AUTO DIFFon 08-12-2022 BASO # 0.0 103/ul Normal 0.0-0.1 [facility] Comment on above: Performed By: #### C BC #### [facility] [address] [place] [address] Dr. Ladan Mcdonald Basophils/100 WBC (Bld) 0.5 % Normal 0.2-2.0 [facility] Comment on above: Performed By: #### C BC #### [facility] [address] [place] [address] Dr. Ladan Mcdonald EO # 0.2 103/ul Normal 0.0-0.7 [facility] Comment on above: Performed By: #### C BC #### [facility] [address] [place] [address] Dr. Ladan Mcdonald Eosinophils/100 WBC (Bld) 4.3 % Normal 0.9-7.0 [facility] Comment on above: Performed By: #### C BC #### [facility] [address] [place] [address] Dr. Ladan Mcdonald Erythrocyte distribution width (RBC) [Ratio] 15.7 % Critically high 11.0-15.0 [facility] Comment on above: Performed By: #### C BC #### [facility] [address] [place] [address] Dr. Ladan Mcdonald Hematocrit (Bld) [Volume fraction] 44.2 % Normal 42.0-54.0 [facility] Comment on above: Performed By: #### C BC #### [facility] [address] [place] [address] Dr. Ladan Mcdonald Hemoglobin (Bld) [Mass/Vol] 14.0 g/dL Normal 14.0-18.0 [facility] Comment on above: Performed By: #### C BC #### [facility] [address] [place] [address] Dr. Ladan Mcdonald IG # 0.06 10e3/ul Critically high 0.00-0.03 [facility] Comment on above: Performed By: #### C BC #### [facility] [address] [place] [address] Dr. Ladan Mcdonald IG % 1.5 % Critically high 0.0-0.[address] [facility] Comment on above: Performed By: #### C BC #### [facility] [address] [place] [address] Dr. Ladan Mcdonald LYMPH # 1.4 103/ul Normal 1.2-3.8 [facility] Comment on above: Performed By: #### C BC #### [facility] [address] [place] [address] Dr. Ladan Mcdonald Lymphocytes/100 WBC (Bld) 35.2 % Normal 20.5-60.0 [facility] Comment on above: Performed By: #### C BC #### [facility] [address] [place] [address] Dr. Ladan Mcdonald MANUAL DIFF REQ NO Normal [facility] Comment on above: Performed By: #### C BC #### [facility] [address] [place] [address] Dr. Ladan Mcdonald MCH (RBC) [Entitic mass] 26.4 pg Normal 25.9-34.0 [facility] Comment on above: Performed By: #### C BC #### [facility] [address] [place] [address] Dr. Ladan Mcdonald MCHC (RBC) [Mass/Vol] 31.7 g/dL Normal 29.9-35.2 [facility] Comment on above: Performed By: #### C BC #### [facility] [facility] [address] [place] [address] Dr. Ladan Mcdonald MCV (RBC) [Entitic vol] 83.2 fL Normal 80.0-94.0 [facility] Comment on above: Performed By: #### C BC #### [facility] [address] [place] [address] Dr. Ladan Mcdonald MONO # 0.3 103/ul Normal 0.3-0.8 [facility] Comment on above: Performed By: #### C BC #### [facility] [address] [place] [address] Dr. Ladan Mcdonald Monocytes/100 WBC (Bld) 6.4 % Normal 1.7-12.0 [facility] Comment on above: Performed By: #### C BC #### [facility] [address] [place] [address] Dr. Ladan Mcdonald NEUT # 2.0 103/ul Normal 1.4-6.5 [facility] Comment on above: Performed By: #### C BC #### [facility] [address] [place] [address] Dr. Ladan Mcdonald Neutrophils/100 WBC (Bld) 52.1 % Normal 43.0-75.0 [facility] Comment on above: Performed By: #### C BC #### [facility] [address] [place] [address] Dr. Ladan Mcdonald Platelet mean volume (Bld) [Entitic vol] 9.4 fL Critically low 9.5-13.5 [facility] Comment on above: Performed By: #### C BC #### [facility] [address] [place] [address] Dr. Ladan Mcdonald PLT 137 103/ul Critically low 150-450 [facility] Comment on above: Performed By: #### C BC #### [facility] [address] [place] [address] Dr. Ladan Mcdonald RBC 5.31 106/ul Normal 4.70-6.10 [facility] Comment on above: Performed By: #### C BC #### [facility] [address] [place] [address] Dr. Ladan Mcdonald WBC 3.9 103/ul Critically low 4.0-11.0 [facility] Comment on above: Performed By: #### C BC #### [facility] [address] [address] [address] Ladan Mcdonald LDHon 08-12-2022 LDH 196 U/L Normal 85-227 [facility] Comment on above: Performed By: #### M G, LDH, CMP #### [facility] [address] [place] [address] Dr. Ladan Mcdonald MAGNESIUMon 08-12-2022 Magnesium [Mass/Vol] 2.1 mg/dL Normal 1.8-2.4 [facility] Comment on above: Performed By: #### M G, LDH, CMP #### [facility] [address] [place] [address] Dr. Ladan Mcdonald PROF 14(COMP METB)on 022 Albumin [Mass/Vol] 3.5 g/dL Normal 3.4-5.0 [facility] Comment on above: Performed By: #### M G, LDH, CMP #### [facility] [address] [place] [address] Dr. Ladan Mcdonald Albumin/Globulin [Mass ratio] 0.9 {ratio} Normal [facility] Comment on above: Performed By: #### M G, LDH, CMP #### [facility] [address] [place] [address] Dr. Ladan Mcdonald ALP [Catalytic activity/Vol] 118 U/L Critically high 46-116 [facility] Comment on above: Performed By: #### M G, LDH, CMP #### [facility] [address] [place] [address] Dr. Ladan Mcdonald ALT [Catalytic activity/Vol] 46 U/L Normal 16-63 [facility] Comment on above: Performed By: #### M G, LDH, CMP #### [facility] [address] [place] [address] Dr. Ladan Mcdonald Anion gap [Moles/Vol] 8.7 mmol/L Normal [facility] Comment on above: Performed By: #### M G, LDH, CMP #### [facility] [address] [address] [address] Ladan Mcdonald AST [Catalytic activity/Vol] 30 U/L Normal 15-37 [facility] Comment on above: Performed By: #### M G, LDH, CMP #### [facility] [address] [address] [address] Ladan Mcdonald Bilirubin [Mass/Vol] 0.4 mg/dL Normal 0.2-1.0 [facility] Comment on above: Performed By: #### M G, LDH, CMP #### [facility] [address] [address] [address] Ladan Mcdonald Calcium [Mass/Vol] 9.1 mg/dL Normal 8.5-10.1 [facility] Comment on above: Performed By: #### M G, LDH, CMP #### [facility] [address] [address] [address] Ladan Mcdonald Chloride [Moles/Vol] 106 mmol/L Normal 98-107 [facility] Comment on above: Performed By: #### M G, LDH, CMP #### [facility] [address] [address] [address] Ladan Mcdonald CO2 [Moles/Vol] 31.9 mmol/L Normal 21.0-32.0 [facility] Comment on above: Performed By: #### M G, LDH, CMP #### [facility] [address] [address] [address] Ladan Mcdonald Creatinine [Mass/Vol] 1.68 mg/dL Critically high 0.70-1.30 [facility] Comment on above: Performed By: #### M G, LDH, CMP #### [facility] [address] [address] [address] Ladan Mcdonald EGFR-AF NIGERIAN 51 mL/min/1.73m2 Critically low >=60 [facility] Comment on above: Performed By: #### M G, LDH, CMP #### [facility] [address] [address] [address] Ladan Mcdonald EGFR-NON AF NIGERIAN 42 mL/min/1.73m2 Critically low >=60 [facility] Comment on above: Performed By: #### M G, LDH, CMP #### [facility] [address] [address] [address] Ladan Mcdonald Globulin (S) [Mass/Vol] 3.7 g/dL Normal [facility] Comment on above: Performed By: #### M G, LDH, CMP #### [facility] [address] [address] [address] Ladan Mcdonald Glucose [Mass/Vol] 110 mg/dL Critically high 74-106 [facility] Comment on above: Performed By: #### M G, LDH, CMP #### [facility] [address] [place] [address] Dr. Ladan Mcdonald Potassium [Moles/Vol] 4.6 mmol/L Normal 3.5-5.1 [facility] Comment on above: Performed By: #### M G, LDH, CMP #### [facility] [address] [place] [address] Dr. Ladan Mcdonald Protein [Mass/Vol] 7.2 g/dL Normal 6.4-8.2 [facility] Comment on above: Performed By: #### M G, LDH, CMP #### [facility] [address] [place] [address] Dr. Ladan Mcdonald Sodium [Moles/Vol] 142 mmol/L Normal 136-145 [facility] Comment on above: Performed By: #### M G, LDH, CMP #### [facility] [address] [place] [address] Dr. Ladan Mcdonald Urea nitrogen [Mass/Vol] 24.0 mg/dL Critically high 7.0-18.0 [facility] Comment on above: Performed By: #### M G, LDH, CMP #### [facility] [address] [place] [address] Dr. Ladan Mcdonald Urea nitrogen/Creatinine [Mass ratio] 14.3 mg/mg Normal [facility] Comment on above: Performed By: #### M G, LDH, CMP #### [facility] [address] [place] [address] Dr. Ladan Mcdonald Phone Note - Heme Onc-lab re quisition - Mailing lab reqon 08-06-2022 Phone Note - Heme Onc-lab requisition - Mailing lab req Phone Call Information: Patient Demographics: Name: KATERINA DANIELLE Date: 1960 Address: [address] [place] [address] Date and Time: 06-Aug-2022 10:58 Caller Information: call from Primary Phone Number: [phone] Reason for Call: Reason for Calllab requisition, [...] 21-Feb-2022 14:00 N/A Electronic Signatures: Zofia Smith (KLEVER) (Signed 06-Aug-2022 11:16) Authored: Phone Call Information Ashley Dugan (UNIT SECT) (Signed 06-Aug-2022 11:00) Authored: Phone Call Information, Outpatient Medication Profile, Orders, Allergies, Results Last Updated: 06-Aug-2022 11:16 by Zofia Smith (KLEVER) Normal [facility] XR CHEST 2 Von 07-18-2022 XR CHEST [...] JS LÓPEZ Date: 2022-07-18 15:06 Normal [facility] Office Visit (Onco-Nephrolog y - Established)on 07-16-2022 Follow-up visit Diagnoses/Problems CKD (chronic kidney disease), stage III (585.3) (N18.30) Benign essential HTN (401.1) (I10) Hyperparathyroidism, secondary (588.81) (N25.81) Orders Benign essential HTN, CKD (chronic kidney disease), stage III, Hyperparathyroidism, secondary Basic Metabolic Panel; Status:Active; Requested for:[id number]; Parathormone Intact, Serum; Status:Active; Requested for:[id number]; Phosphorus, Serum; Status:Active; Requested for:[id number]; Provider Impressions 1- CKD III: His Cr [...] THE WEEKENDS (more content not included)... Normal [facility] COVID-19 SOFIAOrdered By: Tod Farrell on 06-11-2022 SARS-CoV+SARS-CoV-2 (COVID-19) Ag IA.rapid Ql (Resp) Negative Negative [facility] Comment on above: This is a duplicate Mariella SARS Antigen (JOE) result to be used for statistical tracking purpose only. No Panel InformationOrdered By: Victor Hugo Farrell on 06-11-2022 SARS Antigen (LFIA) [facility] ECHOCARDIO M/2D COMPLETEon 0 04-01-2022 ECHOCARDIO M/2D COMPLETE Patient: KATERINA DANIELLE Exam Date: 04/01/2022 : 1960 Gender:M Ordering : DR NAEL FARIAS . Admission #: [id number] Family : Order #: [id number] CLICK HERE TO VIEW EXAM ECHOCARDIOGRAM REPORT [...] M.D. on 04/02/2022 at 18:37 Normal [facility] LACTATE DEHYDROGENASE (LD) I SOENZYMESon 02-23-2022 LD FRACTION 1 16 % Critically low 17-32 [facility] Comment on above: Result Comment: Perf ormed at: BN Performed By: #### L DISO #### [facility] [address] [address] [address] Ladan Mcdonald LD FRACTION 2 33 % Normal 25-40 [facility] Comment on above: Result Comment: Perf ormed at: BN Performed By: #### L DISO #### [facility] [address] [address] [address] Ladan Mcdonald LD FRACTION 3 23 % Normal 17-27 [facility] Comment on above: Result Comment: Perf ormed at: BN Performed By: #### L DISO #### [facility] [address] [address] [address] Ladan Mcdonald LD FRACTION 4 13 % Normal 5-13 [facility] Comment on above: Result Comment: Perf ormed at: BN Performed By: #### L DISO #### [facility] [address] [address] [address] Ladan Mcdonald LD FRACTION 5 15 % Normal 4-20 [facility] Comment on above: Result Comment: Perf ormed at: BN Performed By: #### L DISO #### [facility] [address] [address] [address] Ladan Mcdonald LDH 245 IU/L Critically high 121-[address] [facility] Comment on above: Result Comment: Perf ormed at: CB Performed By: #### L DISO #### [facility] [address] [address] [address] Ladan Mcdonald CBC AND DIFFERENTIALon 02-21 % AUTOMATED IMMATURE GRAN Canceled Normal [facility] Comment on above: Order Comment: TEST CBC AND DIFFERENTIAL WAS CANCELLED, 02/21/2022 14:13 Cancelled per Zofia. Result Comment: Caryn ture Granulocyte Count (IG) includes promyelocytes, myelocytes and metamyelocytes but does not include bands. Percent differential counts (%) should be interpreted in the context of the absolute cell counts (cells/L). Performed By: #### C BCDF #### [address] [place] [address] % BASOPHIL Canceled Normal [facility] Comment on above: Order Comment: TEST CBC AND DIFFERENTIAL WAS CANCELLED, 02/21/2022 14:13 Cancelled per Zofia. Performed By: #### C BCDF #### [address] [place] [address] % EOSINOPHIL Canceled Normal [facility] Comment on above: Order Comment: TEST CBC AND DIFFERENTIAL WAS CANCELLED, 02/21/2022 14:13 Cancelled per Zofia. Performed By: #### C BCDF #### [address] [place] [address] % LYMPHOCYTE Canceled Normal [facility] Comment on above: Order Comment: TEST CBC AND DIFFERENTIAL WAS CANCELLED, 02/21/2022 14:13 Cancelled per Zofia. Performed By: #### C BCDF #### [address] [place] [address] % MONOCYTE Canceled Normal [facility] Comment on above: Order Comment: TEST CBC AND DIFFERENTIAL WAS CANCELLED, 02/21/2022 14:13 Cancelled per Zofia. Performed By: #### C BCDF #### [address] [place] [address] % NEUTROPHIL Canceled Normal [facility] Comment on above: Order Comment: TEST CBC AND DIFFERENTIAL WAS CANCELLED, 02/21/2022 14:13 Cancelled per Zofia. Performed By: #### C BCDF #### [address] [place] [address] BASOPHIL Canceled Normal [facility] Comment on above: Order Comment: TEST CBC AND DIFFERENTIAL WAS CANCELLED, 02/21/2022 14:13 Cancelled per Zofia. Performed By: #### C BCDF #### [address] [place] [address] DIFFERENTIAL Canceled [facility] Comment on above: Order Comment: TEST CBC AND DIFFERENTIAL WAS CANCELLED, 02/21/2022 14:13 Cancelled per Zofia. Performed By: #### C BCDF #### [address] [place] [address] EOSINOPHIL Canceled [facility] Comment on above: Order Comment: TEST CBC AND DIFFERENTIAL WAS CANCELLED, 02/21/2022 14:13 Cancelled per Zofia. Performed By: #### C BCDF #### [address] [place] [address] HCT Canceled [facility] Comment on above: Order Comment: TEST CBC AND DIFFERENTIAL WAS CANCELLED, 02/21/2022 14:13 Cancelled per Zofia. Performed By: #### C BCDF #### [address] [place] [address] HGB Canceled [facility] Comment on above: Order Comment: TEST CBC AND DIFFERENTIAL WAS CANCELLED, 02/21/2022 14:13 Cancelled per Zofia. Performed By: #### C BCDF #### [address] [place] [address] LYMPHOCYTE Canceled [facility] Comment on above: Order Comment: TEST CBC AND DIFFERENTIAL WAS CANCELLED, 02/21/2022 14:13 Cancelled per Zofia. Performed By: #### C BCDF #### [address] [place] [address] MCHC Canceled [facility] Comment on above: Order Comment: TEST CBC AND DIFFERENTIAL WAS CANCELLED, 02/21/2022 14:13 Cancelled per Zofia. Performed By: #### C BCDF #### [address] [place] [address] MCV Canceled [facility] Comment on above: Order Comment: TEST CBC AND DIFFERENTIAL WAS CANCELLED, 02/21/2022 14:13 Cancelled per Zofia. Performed By: #### C BCDF #### [address] [place] [address] MONOCYTE Canceled [facility] Comment on above: Order Comment: TEST CBC AND DIFFERENTIAL WAS CANCELLED, 02/21/2022 14:13 Cancelled per Zofia. Performed By: #### C BCDF #### [address] [place] [address] NEUTROPHIL Canceled [facility] Comment on above: Order Comment: TEST CBC AND DIFFERENTIAL WAS CANCELLED, 02/21/2022 14:13 Cancelled per Zofia. Performed By: #### C BCDF #### [address] [place] [address] PLT Canceled [facility] Comment on above: Order Comment: TEST CBC AND DIFFERENTIAL WAS CANCELLED, 02/21/2022 14:13 Cancelled per Zofia. Performed By: #### C BCDF #### [address] [place] [address] RBC Canceled [facility] Comment on above: Order Comment: TEST CBC AND DIFFERENTIAL WAS CANCELLED, 02/21/2022 14:13 Cancelled per Zofia. Performed By: #### C BCDF #### [address] [place] [address] RDW-CV Canceled [facility] Comment on above: Order Comment: TEST CBC AND DIFFERENTIAL WAS CANCELLED, 02/21/2022 14:13 Cancelled per Zofia. Performed By: #### C BCDF #### [address] [place] [address] WBC Canceled [facility] Comment on above: Order Comment: TEST CBC AND DIFFERENTIAL WAS CANCELLED, 02/21/2022 14:13 Cancelled per Zofia. Performed By: #### C BCDF #### [address] [place] [address] COMPREHENSIVE PANELon 2021 ALBUMIN Canceled Normal [facility] Comment on above: Order Comment: TEST COMPREHENSIVE PANEL WAS CANCELLED, 02/21/2022 14:13 Cancelled per Zofia. Performed By: #### C MP #### [address] [place] [address] ALKALINE PHOSPHATASE Canceled Normal [facility] Comment on above: Order Comment: TEST COMPREHENSIVE PANEL WAS CANCELLED, 02/21/2022 14:13 Cancelled per Zofia. Performed By: #### C MP #### [address] [place] [address] ALT Canceled [facility] Comment on above: Order Comment: TEST COMPREHENSIVE PANEL WAS CANCELLED, 02/21/2022 14:13 Cancelled per Zofia. Result Comment: Yisel ents treated with Sulfasalazine may generate falsely decreased results for ALT. Performed By: #### C MP #### [address] [place] [address] ANION GAP Canceled Normal [facility] Comment on above: Order Comment: TEST COMPREHENSIVE PANEL WAS CANCELLED, 02/21/2022 14:13 Cancelled per Zofia. Performed By: #### C MP #### [address] [place] [address] AST Canceled Normal [facility] Comment on above: Order Comment: TEST COMPREHENSIVE PANEL WAS CANCELLED, 02/21/2022 14:13 Cancelled per Zofia. Performed By: #### C MP #### [address] [place] [address] BICARBONATE Canceled Normal [facility] Comment on above: Order Comment: TEST COMPREHENSIVE PANEL WAS CANCELLED, 02/21/2022 14:13 Cancelled per Zofia. Performed By: #### C MP #### [address] [place] [address] BILIRUBIN,TOTAL Canceled Normal [facility] Comment on above: Order Comment: TEST COMPREHENSIVE PANEL WAS CANCELLED, 02/21/2022 14:13 Cancelled per Zofia. Performed By: #### C MP #### [address] [place] [address] CALCIUM Canceled [facility] Comment on above: Order Comment: TEST COMPREHENSIVE PANEL WAS CANCELLED, 02/21/2022 14:13 Cancelled per Zofia. Performed By: #### C MP #### [address] [place] [address] CHLORIDE Canceled [facility] Comment on above: Order Comment: TEST COMPREHENSIVE PANEL WAS CANCELLED, 02/21/2022 14:13 Cancelled per Zofia. Performed By: #### C MP #### [address] [place] [address] CREATININE Canceled [facility] Comment on above: Order Comment: TEST COMPREHENSIVE PANEL WAS CANCELLED, 02/21/2022 14:13 Cancelled per Zofia. Performed By: #### C MP #### [address] [place] [address] eGFR FEMALE Canceled [facility] Comment on above: Order Comment: TEST COMPREHENSIVE PANEL WAS CANCELLED, 02/21/2022 14:13 Cancelled per Zofia. Result Comment: CALC ULATIONS OF ESTIMATED GFR ARE PERFORMED USING THE 2020 CKD-EPI STUDY REFIT EQUATION WITHOUT THE RACE VARIABLE FOR THE IDMS-TRACEABLE CREATININE METHODS. https://jasn.asnjournals.org/content//ASN.184842 2985 Performed By: #### C MP #### [address] [place] [address] eGFR MALE Canceled [facility] Comment on above: Order Comment: TEST COMPREHENSIVE PANEL WAS CANCELLED, 02/21/2022 14:13 Cancelled per Ozfia. Result Comment: CALC ULATIONS OF ESTIMATED GFR ARE PERFORMED USING THE 2020 CKD-EPI STUDY REFIT EQUATION WITHOUT THE RACE VARIABLE FOR THE IDMS-TRACEABLE CREATININE METHODS. https://jasn.asnjournals.org/content/22/ASN.865683 1596 Performed By: #### C MP #### [address] [place] [address] GLUCOSE Canceled Normal [facility] Comment on above: Order Comment: TEST COMPREHENSIVE PANEL WAS CANCELLED, 02/21/2022 14:13 Cancelled per Zofia. Performed By: #### C MP #### [address] [place] [address] POTASSIUM Canceled Normal [facility] Comment on above: Order Comment: TEST COMPREHENSIVE PANEL WAS CANCELLED, 02/21/2022 14:13 Cancelled per Zofia. Performed By: #### C MP #### [address] [place] [address] SODIUM Canceled [facility] Comment on above: Order Comment: TEST COMPREHENSIVE PANEL WAS CANCELLED, 02/21/2022 14:13 Cancelled per Zofia. Performed By: #### C MP #### [address] [place] [address] TOTAL PROTEIN Canceled [facility] Comment on above: Order Comment: TEST COMPREHENSIVE PANEL WAS CANCELLED, 02/21/2022 14:13 Cancelled per Zofia. Performed By: #### C MP #### [address] [place] [address] UREA NITROGEN Canceled Normal [facility] Comment on above: Order Comment: TEST COMPREHENSIVE PANEL WAS CANCELLED, 02/21/2022 14:13 Cancelled per Zofia. Performed By: #### C MP #### [address] [place] [address] LDHon 02-21-2022 LDH Canceled [facility] Comment on above: Order Comment: TEST LDH WAS CANCELLED, 02/21/2022 14:13 Cancelled per Zofia. Performed By: #### L DH #### [facility] [address] [place] [address] CBC AUTO DIFFon 02-20-2022 BASO # 0.0 103/ul Normal 0.0-0.1 [facility] Comment on above: Performed By: #### C BC #### [facility] [address] [place] [address] Dr. Ladan Mcdonald Basophils/100 WBC (Bld) 0.6 % Normal 0.2-2.0 [facility] Comment on above: Performed By: #### C BC #### [facility] [address] [place] [address] Dr. Laadn Mcdonald EO # 0.1 103/ul Normal 0.0-0.7 [facility] Comment on above: Performed By: #### C BC #### [facility] [address] [place] [address] Dr. Ladan Mcdonald Eosinophils/100 WBC (Bld) 2.0 % Normal 0.9-7.0 [facility] Comment on above: Performed By: #### C BC #### [facility] [address] [place] [address] Dr. Ladan Mcdonald Erythrocyte distribution width (RBC) [Ratio] 15.4 % Critically high 11.0-15.0 [facility] Comment on above: Performed By: #### C BC #### [facility] [address] [place] [address] Dr. Ladan Mcdonald Hematocrit (Bld) [Volume fraction] 44.7 % Normal 42.0-54.0 [facility] Comment on above: Performed By: #### C BC #### [facility] [address] [place] [address] Dr. Ladan Mcdonald Hemoglobin (Bld) [Mass/Vol] 14.3 g/dL Normal 14.0-18.0 [facility] Comment on above: Performed By: #### C BC #### [facility] [address] [place] [address] Dr. Ladan Mcdonald IG # 0.02 10e3/ul Normal 0.00-0.03 [facility] Comment on above: Performed By: #### C BC #### [facility] [address] [place] [address] Dr. Ladan Mcdonald IG % 0.6 % Critically high 0.0-0.5 [facility] Comment on above: Performed By: #### C BC #### [facility] [address] [place] [address] Dr. Ladan Mcdonald LYMPH # 0.9 103/ul Critically low 1.2-3.8 [facility] Comment on above: Performed By: #### C BC #### [facility] [address] [place] [address] Dr. Ladan Mcdonald Lymphocytes/100 WBC (Bld) 26.6 % Normal 20.5-60.0 [facility] Comment on above: Performed By: #### C BC #### [facility] [address] [place] [address] Dr. Ladan Mcdonald MANUAL DIFF REQ NO Normal [facility] Comment on above: Performed By: #### C BC #### [facility] [address] [place] [address] Dr. Ladan Mcdonald MCH (RBC) [Entitic mass] 26.2 pg Normal 25.9-34.0 [facility] Comment on above: Performed By: #### C BC #### [facility] [address] [place] [address] Dr. Ladan Mcdonald MCHC (RBC) [Mass/Vol] 32.0 g/dL Normal 29.9-35.2 [facility] Comment on above: Performed By: #### C BC #### [facility] [address] [place] [address] Dr. Ladan Mcdonald MCV (RBC) [Entitic vol] 82.0 fL Normal 80.0-94.0 [facility] [facility] Comment on above: Performed By: #### C BC #### [facility] [address] [place] [address] Dr. Ladan Mcdonald MONO # 0.3 103/ul Normal 0.3-0.8 [facility] Comment on above: Performed By: #### C BC #### [facility] [address] [place] [address] Dr. Ladan Mcdonald Monocytes/100 WBC (Bld) 8.9 % Normal 1.7-12.0 [facility] Comment on above: Performed By: #### C BC #### [facility] [address] [address] [address] Ladan Mcdonald NEUT # 2.2 103/ul Normal 1.4-6.5 [facility] Comment on above: Performed By: #### C BC #### [facility] [address] [address] [address] Ladan Mcdonald Neutrophils/100 WBC (Bld) 61.3 % Normal 43.0-75.0 [facility] Comment on above: Performed By: #### C BC #### [facility] [address] [address] [address] Ladan Mcdonald Platelet mean volume (Bld) [Entitic vol] 9.7 fL Normal 9.5-13.5 [facility] Comment on above: Performed By: #### C BC #### [facility] [address] [address] [address] Ladan Mcdonald PLT 115 103/ul Critically low 150-450 [facility] Comment on above: Performed By: #### C BC #### [facility] [address] [address] [address] Ladan Mcdonald RBC 5.45 106/ul Normal 4.70-6.10 [facility] Comment on above: Performed By: #### C BC #### [facility] [address] [address] [address] Ladan Mcdonald WBC 3.5 103/ul Critically low 4.0-11.0 [facility] Comment on above: Performed By: #### C BC #### [facility] [address] [address] [address] Ladan Mcdonald PROF 14(COMP METB)on 022 Albumin [Mass/Vol] 3.7 g/dL Normal 3.4-5.0 [facility] Comment on above: Performed By: #### M G, LDH, CMP #### [facility] [address] [address] [address] Ladan Mcdonald Albumin/Globulin [Mass ratio] 1.1 {ratio} Normal [facility] Comment on above: Performed By: #### M G, LDH, CMP #### [facility] [address] [address] [address] Ladan Mcdonald ALP [Catalytic activity/Vol] 121 U/L Critically high 46-116 [facility] Comment on above: Performed By: #### M G, LDH, CMP #### [facility] [address] [address] [address] Ladan Mcdonald ALT [Catalytic activity/Vol] 55 U/L Normal 16-63 [facility] Comment on above: Performed By: #### M G, LDH, CMP #### [facility] [address] [address] [address] Ladan Mcdonald Anion gap [Moles/Vol] 11.7 mmol/L Normal [facility] [place] Comment on above: Performed By: #### M G, LDH, CMP #### [facility] [address] [address] [address] Ladan Mcdonald AST [Catalytic activity/Vol] 40 U/L Critically high 15-37 [facility] Comment on above: Performed By: #### M G, LDH, CMP #### [facility] [address] [address] [address] Ladan Mcdonald Bilirubin [Mass/Vol] 0.5 mg/dL Normal 0.2-1.0 [facility] Comment on above: Performed By: #### M G, LDH, CMP #### [facility] [address] [address] [address] Ladan Mcdonald Calcium [Mass/Vol] 9.2 mg/dL Normal 8.5-10.1 [facility] Comment on above: Performed By: #### M G, LDH, CMP #### [facility] [address] [address] [address] Ladan Mcdonald Chloride [Moles/Vol] 107 mmol/L Normal 98-107 [facility] Comment on above: Performed By: #### M G, LDH, CMP #### [facility] [address] [address] [address] Ladan Mcdonald CO2 [Moles/Vol] 28.3 mmol/L Normal 21.0-32.0 [facility] Comment on above: Performed By: #### M G, LDH, CMP #### [facility] [address] [place] [address] Dr. Ladan Mcdonald Creatinine [Mass/Vol] 1.97 mg/dL Critically high 0.70-1.30 [facility] Comment on above: Performed By: #### M G, LDH, CMP #### [facility] [address] [place] [address] Dr. Ladan Mcdonald EGFR-AF NIGERIAN 42 mL/min/1.73m2 Critically low >=60 [facility] Comment on above: Performed By: #### M G, LDH, CMP #### [facility] [address] [place] [address] Dr. Ladan Mcdonald EGFR-NON AF NIGERIAN 35 mL/min/1.73m2 Critically low >=60 [facility] Comment on above: Performed By: #### M G, LDH, CMP #### [facility] [address] [place] [address] Dr. Ladan Mcdonald Globulin (S) [Mass/Vol] 3.5 g/dL Normal [facility] Comment on above: Performed By: #### M G, LDH, CMP #### [facility] [address] [place] [address] Dr. Ladan Mcdonald Glucose [Mass/Vol] 114 mg/dL Critically high 74-106 [facility] Comment on above: Performed By: #### M G, LDH, CMP #### [facility] [address] [place] [address] Dr. Ladan Mcdonald Potassium [Moles/Vol] 4.0 mmol/L Normal 3.5-5.1 [facility] Comment on above: Performed By: #### M G, LDH, CMP #### [facility] [address] [place] [address] Dr. Ladan Mcdonald Protein [Mass/Vol] 7.2 g/dL Normal 6.4-8.2 [facility] Comment on above: Performed By: #### M G, LDH, CMP #### [facility] [address] [place], [place] [address] Dr. Ladan Mcdonald Sodium [Moles/Vol] 143 mmol/L Normal 136-145 [facility] Comment on above: Performed By: #### M G, LDH, CMP #### [facility] [address] [address] [address] Ladan Mcdonald Urea nitrogen [Mass/Vol] 26.0 mg/dL Critically high 7.0-18.0 [facility] Comment on above: Performed By: #### M G, LDH, CMP #### [facility] [address] [place], [place] [address] Dr. Ladan Mcdonald Urea nitrogen/Creatinine [Mass ratio] 13.2 mg/mg Normal [facility] Comment on above: Performed By: #### M G, LDH, CMP #### [facility] [address] [address] [address] Ladan Mcdonald CBC AND DIFFERENTIALon 11-14 % AUTOMATED IMMATURE GRAN 1.2 % High 0.0 - 0.9 [facility] Comment on above: Result Comment: Caryn ture Granulocyte Count (IG) includes promyelocytes, myelocytes and metamyelocytes but does not include bands. Percent differential counts (%) should be interpreted in the context of the absolute cell counts (cells/L). Performed By: #### C BCDF #### [address] [address] Basophils (Bld) [#/Vol] 0.01 10*3/uL Normal 0.00 - 0.10 [facility] Comment on above: Performed By: #### C BCDF #### [address] [address] Basophils/100 WBC (Bld) 0.2 % Normal 0.0 - 2.0 [facility] Comment on above: Performed By: #### C BCDF #### [address] [address] Eosinophils (Bld) [#/Vol] 0.04 10*3/uL Normal 0.00 - 0.70 [facility] Comment on above: Performed By: #### C BCDF #### [address] [place] [address] Eosinophils/100 WBC (Bld) 1.0 % Normal 0.0 - 6.0 [facility] Comment on above: Performed By: #### C BCDF #### [address] [place] [address] Erythrocyte distribution width (RBC) [Ratio] 15.0 % High 11.5 - 14.5 [facility] Comment on above: Performed By: #### C BCDF #### [address] [place] [address] Hematocrit (Bld) [Volume fraction] 48.2 % Normal 41.0 - 52.0 [facility] Comment on above: Performed By: #### C BCDF #### [address] [place] [address] Hemoglobin (Bld) [Mass/Vol] 14.9 g/dL Normal 13.5 - 17.5 [facility] Comment on above: Performed By: #### C BCDF #### [address] [address] Lymphocytes (Bld) [#/Vol] 1.26 10*3/uL Normal 1.20 - 4.80 [facility] Comment on above: Performed By: #### C BCDF #### [address] [place] [address] Lymphocytes/100 WBC (Bld) 30.2 % Normal 13.0 - 44.0 [facility] Comment on above: Performed By: #### C BCDF #### [address] [place] [address] MCHC (RBC) [Mass/Vol] 30.9 g/dL Low 32.0 - 36.0 [facility] Comment on above: Performed By: #### C BCDF #### [address] [place] [address] MCV (RBC) [Entitic vol] 84 fL Normal 80 - 100 [facility] Comment on above: Performed By: #### C BCDF #### [address] [address] Monocytes (Bld) [#/Vol] 0.36 10*3/uL Normal 0.10 - 1.00 [facility] Comment on above: Performed By: #### C BCDF #### [address] [address] Monocytes/100 WBC (Bld) 8.6 % Normal 2.0 - 10.0 [facility] Comment on above: Performed By: #### C BCDF #### [address] [address] Neutrophils (Bld) [#/Vol] 2.45 10*3/uL Normal 1.20 - 7.70 [facility] Comment on above: Performed By: #### C BCDF #### [address] [address] Neutrophils/100 WBC (Bld) 58.8 % Normal 40.0 - 80.0 [facility] Comment on above: Performed By: #### C BCDF #### [address] [address] NUCLEATED RBC 0.0 /100 WBC Normal 0.0 - 0.0 [facility] Comment on above: Performed By: #### C BCDF #### [address] [address] Platelets (Bld) [#/Vol] 138 10*3/uL Low 150 - 450 [facility] Comment on above: Performed By: #### C BCDF #### [address] [address] RBC 5.71 x10E12/L Normal 4.50 - 5.90 [facility] Comment on above: Performed By: #### C BCDF #### [address] [address] WBC (Bld) [#/Vol] 4.2 10*3/uL Low 4.4 - 11.3 [facility] Comment on above: Performed By: #### C BCDF #### [address] [place] [address] COMPREHENSIVE PANELon 2021 Albumin [Mass/Vol] 4.3 g/dL Normal 3.4 - 5.0 [facility] Comment on above: Performed By: #### C MP #### [address] [address] ALP [Catalytic activity/Vol] 89 U/L Normal 33 - 136 [facility] Comment on above: Performed By: #### C MP #### [address] [address] ALT [Catalytic activity/Vol] 43 U/L Normal 10 - 52 [facility] Comment on above: Result Comment: Yisel ents treated with Sulfasalazine may generate falsely decreased results for ALT. Performed By: #### C MP #### [address] [address] Anion gap [Moles/Vol] 11 mmol/L Normal 10 - 20 [facility] Comment on above: Performed By: #### C MP #### [address] [address] AST [Catalytic activity/Vol] 31 U/L Normal 9 - 39 [facility] Comment on above: Performed By: #### C MP #### [address] [address] Bilirubin [Mass/Vol] 0.7 mg/dL Normal 0.0 - 1.2 [facility] Comment on above: Performed By: #### C MP #### [address] [address] Calcium [Mass/Vol] 9.5 mg/dL Normal 8.6 - 10.3 [facility] Comment on above: Performed By: #### C MP #### [address] [address] Chloride [Moles/Vol] 105 mmol/L Normal 98 - 107 [facility] Comment on above: Performed By: #### C MP #### [address] [address] Creatinine [Mass/Vol] 1.76 mg/dL High 0.50 - 1.30 [facility] Comment on above: Performed By: #### C MP #### [address] [address] GFR/1.73 sq M.predicted among non-blacks MDRD (S/P/Bld) [Vol rate/Area] 43 mL/min/{1.73_m2} Abnormal >90 [facility] Comment on above: Result Comment: CALC ULATIONS OF ESTIMATED GFR ARE PERFORMED USING THE 2020 CKD-EPI STUDY REFIT EQUATION WITHOUT THE RACE VARIABLE FOR THE IDMS-TRACEABLE CREATININE METHODS. https://jasn.asnjournals.org/content/early/ASN.815221 5973 Performed By: #### C MP #### [address] [address] Glucose [Mass/Vol] 117 mg/dL High 74 - 99 [facility] Comment on above: Performed By: #### C MP #### [address] [address] HCO3 (Bld) [Moles/Vol] 27 mmol/L Normal 21 - 32 [facility] Comment on above: Performed By: #### C MP #### [address] [address] Potassium [Moles/Vol] 4.3 mmol/L Normal 3.5 - 5.3 [facility] Comment on above: Performed By: #### C MP #### [address] [address] Protein [Mass/Vol] 7.0 g/dL Normal 6.4 - 8.2 [facility] Comment on above: Performed By: #### C MP #### [address] [address] Sodium [Moles/Vol] 139 mmol/L Normal 136 - 145 [facility] Comment on above: Performed By: #### C MP #### [address] [address] Urea nitrogen [Mass/Vol] 23 mg/dL Normal 6 - 23 [facility] Comment on above: Performed By: #### C MP #### [facility] [place] [address] [facility] 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 COMPARISON: CT chest 06/13/2020; CT abdomen pelvis dated 01/02/2019 ACCESSION NUMBER(S): [id number] ORDERING CLINICIAN: ANIRUDH SEARS TECHNIQUE: CT of [...] spleen. Electronically signed by: FRANK GRAVES MD [facility] CT SINUS W CONTRASTon 2021 CT SINUS W CONTRAST Patient Name: KATERINA DANIELLE STUDY: CT NECK WITH CONTRAST; CT SINUS W CONTRAST; 11/14/2021 10:51 am INDICATION: HX DLBCL new sinus symptoms, same location as prior occurence 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 COMPARISON: June 2018. ACCESSION NUMBER(S): [id number]; [id number] ORDERING CLINICIAN: ANIRUDH SEARS TECHNIQUE: Following intravenous [...] the neck. 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 COMPARISON: June 2018. ACCESSION NUMBER(S): [id number]; [id number] ORDERING CLINICIAN: ANIRUDH SEARS TECHNIQUE: Following intravenous [...] the neck. THIS EXAMINATION WAS INTERPRETED AT [facility] Electronically signed by: DEANDRE PENG MD Normal [facility] Tobacco Screening.on 022 Fall risk assessment a) No falls within the last year [facility] [place] 3 DO Work Phone: Tobacco use status CPHS b) No [facility] 3 DO Work Phone: Complete Blood Count + Diffe rentialon 05-21-2021 Basophils/100 WBC (Bld) 0.5 % 0.0 - 2.0 Meetyl DO Work Phone: Erythrocyte distribution width (RBC) [Ratio] 15.6 % above high threshold See Below Meetyl DO Work Phone: Comment on above: Reference Range: 11. 5 - 14.5 Hematocrit (Bld) [Volume fraction] 46.6 % See Below Meetyl DO Work Phone: Comment on above: Reference Range: 41. 0 - 52.0 Hemoglobin (Bld) [Mass/Vol] 14.8 g/dL See Below [employer] 2100 DO Work Phone: Comment on above: Reference Range: 13. 5 - 17.5 Lymphocytes/100 WBC (Bld) 27.6 % See Below Meetyl DO Work Phone: Comment on above: Reference Range: 13. 0 - 44.0 MCHC (RBC) [Mass/Vol] 31.8 g/dL below low threshold See Below Meetyl DO Work Phone: Comment on above: Reference Range: 32. 0 - 36.0 MCV (RBC) [Entitic vol] 87 fL 80 - 100 Meetyl DO Work Phone: Monocytes/100 WBC (Bld) 6.7 % 2.0 - 10.0 [employer] [facility] 2100 DO Work Phone: Neutrophils/100 WBC (Bld) 62.6 % See Below [employer] [facility] 2100 DO Work Phone: Comment on above: Reference Range: 40. 0 - 80.0 Platelets (Bld) [#/Vol] 138 10*3/uL below low threshold 150 - 450 [employer] [facility] 2100 DO Work Phone: RBC (Bld) [#/Vol] 5.37 {x10E12/L} See Below [facility] [facility] 2100 DO Work Phone: Comment on above: Reference Range: 4.5 0 - 5.90 WBC (Bld) [#/Vol] 4.2 10*3/uL below low threshold 4.4 - 11.3 [employer] [facility] 2100 DO Work Phone: Complete Blood Count + Differential 0.02 {x10E9/L} See Below [employer] 2100 DO Work Phone: Comment on above: Reference Range: 0.0 0 - 0.10 Complete Blood Count + Differential 0.08 {x10E9/L} See Below [employer] [facility] 2100 DO Work Phone: Comment on above: Reference Range: 0.0 0 - 0.70 Complete Blood Count + Differential 0.28 {x10E9/L} See Below [employer] [facility] 2100 DO Work Phone: Comment on above: Reference Range: 0.1 0 - 1.00 Complete Blood Count + Differential 1.15 {x10E9/L} below low threshold See Below [employer] [facility] 2100 DO Work Phone: Comment on above: Reference Range: 1.2 0 - 4.80 Complete Blood Count + Differential 2.60 {x10E9/L} See Below [employer] [facility] 2100 DO Work Phone: Comment on above: Reference Range: 1.2 0 - 7.70 Complete Blood Count + Differential 1.9 % 0.0 - 6.0 -[facility] 2100 DO Work Phone: Complete Blood Count + Differential 0.7 % 0.0 - 0.9 -[facility] 2100 DO Work Phone: Comment on above: Immature Granulocyte Count (IG) includes promyelocytes, myelocytes and metamyelocytes but does not include bands. Percent differential counts (%) should be interpreted in the context of the absolute cell counts (cells/L). Immunoglobulin G Level, Seru [facility] 05-21-2021 IgG [Mass/Vol] 1100 mg/dL 700 - 1600 [facility] dinora[facility] 2099 DO Work Phone: Comment on above: MONOCLONAL PROTEINS MAY CAUSE FALSELY LOWRESULTS IN THIS ASSAY. SERUM PROTEINELECTROPHORESIS SHOULD BE DONE THEFIRST TEST TO EVALUATE MONOCLONAL GAMMOPATHY. Laboratory - Chemistry and C hemistry - challengeon 05-21-2021 Albumin BCP dye [Mass/Vol] 4.2 g/dL 3.4 - 5.0 -[facility] 2100 DO Work Phone: ALP [Catalytic activity/Vol] 86 U/L 33 - 136 [facility] 2099 DO Work Phone: ALT With P-5'-P [Catalytic activity/Vol] 32 U/L 10 - 52 -[facility] 2099 DO Work Phone: Comment on above: Patients treated wit h Sulfasalazine may generate falsely decreased results for ALT. Anion gap [Moles/Vol] 11 mmol/L 10 - 20 - [facility] 2100 DO Work Phone: AST With P-5'-P [Catalytic activity/Vol] 28 U/L 9 - 39 -[facility] 2100 DO Work Phone: Bilirubin [Mass/Vol] 0.6 mg/dL 0.0 - 1.2 [facility] 2100 DO Work Phone: Calcium [Mass/Vol] 9.2 mg/dL 8.6 - 10.3 [facility] 2100 DO Work Phone: [phone] Chloride [Moles/Vol] 107 mmol/L 98 - 107 [facility] 2100 DO Work Phone: CO2 [Moles/Vol] 27 mmol/L 21 - 32 [facility] ist [facility] 2100 DO Work Phone: Creatinine [Mass/Vol] 1.77 mg/dL above high threshold See Below [employer] [facility] 2100 DO Work Phone: Comment on above: Reference Range: 0.5 0 - 1.30 Glucose [Mass/Vol] 99 mg/dL 74 - 99 [facility] 2100 DO Work Phone: Potassium [Moles/Vol] 4.5 mmol/L 3.5 - 5.3 [facility]- [employer] [facility] 2100 DO Work Phone: Protein [Mass/Vol] 7.0 g/dL 6.4 - 8.2 [facility] 2100 DO Work Phone: Sodium [Moles/Vol] 140 mmol/L 136 - 145 [facility] 2100 DO Work Phone: Urea nitrogen [Mass/Vol] 22 mg/dL 6 - 23 [employer] [facility] 2100 DO Work Phone: [phone] Panel Informationon 05-21 47 {mL/min/1.73m2} Abnormal >60 [facility] 2100 DO Work Phone: Comment on above: CALCULATIONS OF KATIE MATED GFR ARE PERFORMED USING THE MDRD STUDY EQUATION FOR THE IDMS-TRACEABLE CREATININE METHODS. CLIN CHEM 2007;53:766-72 39 {mL/min/1.73m2} Abnormal >60 [facility] 2100 DO Work Phone: CBC AND DIFFERENTIALon 01-20 % AUTOMATED IMMATURE GRAN 1.9 % High 0.0 - 0.9 [facility] Comment on above: Result Comment: Caryn ture Granulocyte Count (IG) includes promyelocytes, myelocytes and metamyelocytes but does not include bands. Percent differential counts (%) should be interpreted in the context of the absolute cell counts (cells/L). Performed By: #### C BCDF #### [address] [address] Basophils (Bld) [#/Vol] 0.02 10*3/uL Normal 0.00 - 0.10 [facility] Comment on above: Performed By: #### C BCDF #### [address] [address] Basophils/100 WBC (Bld) 0.5 % Normal 0.0 - 2.0 [facility] Comment on above: Performed By: #### C BCDF #### [address] [address] Eosinophils (Bld) [#/Vol] 0.25 10*3/uL Normal 0.00 - 0.70 [facility] Comment on above: Performed By: #### C BCDF #### [address] [address] Eosinophils/100 WBC (Bld) 6.0 % Normal 0.0 - 6.0 [facility] Comment on above: Performed By: #### C BCDF #### [address] [address] Erythrocyte distribution width (RBC) [Ratio] 14.2 % Normal 11.5 - 14.5 [facility] Comment on above: Performed By: #### C BCDF #### [address] [address] Hematocrit (Bld) [Volume fraction] 46.7 % Normal 41.0 - 52.0 [facility] Comment on above: Performed By: #### C BCDF #### [address] [address] Hemoglobin (Bld) [Mass/Vol] 14.8 g/dL Normal 13.5 - 17.5 [facility] Comment on above: Performed By: #### C BCDF #### [address] [address] Lymphocytes (Bld) [#/Vol] 1.10 10*3/uL Low 1.20 - 4.80 [facility] Comment on above: Performed By: #### C BCDF #### [address] [address] Lymphocytes/100 WBC (Bld) 26.6 % Normal 13.0 - 44.0 [facility] Comment on above: Performed By: #### C BCDF #### [address] [address] MCHC (RBC) [Mass/Vol] 31.7 g/dL Low 32.0 - 36.0 [facility] Comment on above: Performed By: #### C BCDF #### [address] [address] MCV (RBC) [Entitic vol] 85 fL Normal 80 - 100 [facility] Comment on above: Performed By: #### C BCDF #### [address] [address] Monocytes (Bld) [#/Vol] 0.48 10*3/uL Normal 0.10 - 1.00 [facility] Comment on above: Performed By: #### C BCDF #### [address] [address] Monocytes/100 WBC (Bld) 11.6 % Normal 2.0 - 10.0 [facility] Comment on above: Performed By: #### C BCDF #### [address] [address] Neutrophils (Bld) [#/Vol] 2.21 10*3/uL Normal 1.20 - 7.70 [facility] Comment on above: Performed By: #### C BCDF #### [address] [address] Neutrophils/100 WBC (Bld) 53.4 % Normal 40.0 - 80.0 [facility] Comment on above: Performed By: #### C BCDF #### [address] [address] Platelets (Bld) [#/Vol] 122 10*3/uL Low 150 - 450 [facility] Comment on above: Performed By: #### C BCDF #### [address] [address] RBC (Bld) [#/Vol] 5.47 x10E12/L Normal 4.50 - 5.90 [facility] Comment on above: Performed By: #### C BCDF #### [address] [address] WBC (Bld) [#/Vol] 4.1 10*3/uL Low 4.4 - 11.3 [facility] Comment on above: Performed By: #### C BCDF #### [address] [address] COMPREHENSIVE PANELon 2019 Albumin [Mass/Vol] 4.7 g/dL Normal 3.4 - 5.0 [facility] Comment on above: Performed By: #### P HOS #### [address] [address] ALP [Catalytic activity/Vol] 186 U/L High 33 - 120 [facility] Comment on above: Performed By: #### P HOS #### [address] [address] ALT [Catalytic activity/Vol] 46 U/L Normal 10 - 52 [facility] Comment on above: Result Comment: Yisel ents treated with Sulfasalazine may generate falsely decreased results for ALT. Performed By: #### P HOS #### [address] [address] Anion gap [Moles/Vol] 11 mmol/L Normal 10 - 20 [facility] Comment on above: Performed By: #### P HOS #### [address] [address] AST [Catalytic activity/Vol] 30 U/L Normal 9 - 39 [facility] Comment on above: Performed By: #### P HOS #### [address] [address] Bilirubin [Mass/Vol] 0.6 mg/dL Normal 0.0 - 1.2 [facility] Comment on above: Performed By: #### P HOS #### [address] [address] Calcium [Mass/Vol] 9.2 mg/dL Normal 8.6 - 10.3 [facility] Comment on above: Performed By: #### P HOS #### [address] [address] Chloride [Moles/Vol] 106 mmol/L Normal 98 - 107 [facility] Comment on above: Performed By: #### P HOS #### [address] [address] Creatinine [Mass/Vol] 1.90 mg/dL High 0.50 - 1.30 [facility] Comment on above: Performed By: #### P HOS #### [address] [address] GFR- AM. 44 mL/min/1.73m2 Abnormal >60 [facility] Comment on above: Result Comment: CALC ULATIONS OF ESTIMATED GFR ARE PERFORMED USING THE MDRD STUDY EQUATION FOR THE IDMS-TRACEABLE CREATININE METHODS. CLIN CHEM 2007;53:766-72 Performed By: #### P HOS #### [address] [address] GFR-NON AM. 36 mL/min/1.73m2 Abnormal >60 [facility] Comment on above: Performed By: #### P HOS #### [address] [address] Glucose [Mass/Vol] 62 mg/dL Low 74 - 99 [facility] Comment on above: Performed By: #### P HOS #### [address] [address] HCO3 (Bld) [Moles/Vol] 29 mmol/L Normal 21 - 32 [facility] Comment on above: Performed By: #### P HOS #### [address] [address] Potassium [Moles/Vol] 4.1 mmol/L Normal 3.5 - 5.3 [facility] Comment on above: Performed By: #### P HOS #### [address] [address] Protein [Mass/Vol] 6.5 g/dL Normal 6.4 - 8.2 [facility] Comment on above: Performed By: #### P HOS #### [address] [address] Sodium [Moles/Vol] 142 mmol/L Normal 136 - 145 [facility] Comment on above: Performed By: #### P HOS #### [address] [address] Urea nitrogen [Mass/Vol] 23 mg/dL Normal 6 - 23 [facility] Comment on above: Performed By: #### P HOS #### [address] [address] LDHon 01-21-2020 LDH 246 U/L Normal 84 - 246 [facility] Comment on above: Performed By: #### P HOS #### [address] [address] PARATHYROID HORMONE,INTACTon 01-21-2020 PARATHYROID HORMONE,INTACT 105.7 pg/mL High 18.5 - 88.0 [facility] Comment on above: Result Comment: Yisel ents receiving more than 5 mg/day of biotin may have interference in test results. A sample should be taken no sooner than eight hours after previous dose. Contact the testing laboratory for additional information. Performed By: #### P HOS #### [address] [address] PHOSPHORUSon 01-21-2020 Phosphate [Mass/Vol] 2.8 mg/dL Normal 2.5 - 4.9 [facility] Comment on above: Result Comment: The performance characteristics of phosphorus testing in heparinized plasma have been validated by the individual laboratory site where testing is performed. Testing on heparinized plasma is not approved by the FDA; however, such approval is not necessary. Performed By: #### P HOS #### [address] [address] URIC ACIDon 01-21-2020 Urate [Mass/Vol] 5.9 mg/dL Normal 4.0 - 7.5 [facility] Comment on above: Result Comment: Anabell puncture immediately after or during the administration of Metamizole may lead to falsely low results. Testing should be performed immediately prior to Metamizole dosing. Performed By: #### P HOS #### [address] [address] BASIC METABOLIC PANELon 11-2 Anion gap [Moles/Vol] 11 mmol/L Normal 10 - 20 [facility] Comment on above: Performed By: #### B MP #### [address] [address] Calcium [Mass/Vol] 9.0 mg/dL Normal 8.6 - 10.3 [facility] Comment on above: Performed By: #### B MP #### [address] [address] Chloride [Moles/Vol] 109 mmol/L High 98 - 107 [facility] Comment on above: Performed By: #### B MP #### [address] [address] Creatinine [Mass/Vol] 1.92 mg/dL High 0.50 - 1.30 [facility] Comment on above: Performed By: #### B MP #### [address] [address] GFR- AM. 44 mL/min/1.73m2 Abnormal >60 [facility] Comment on above: Result Comment: CALC ULATIONS OF ESTIMATED GFR ARE PERFORMED USING THE MDRD STUDY EQUATION FOR THE IDMS-TRACEABLE CREATININE METHODS. CLIN CHEM 2007;53:766-72 Performed By: #### B MP #### [address] [address] GFR-NON AM. 36 mL/min/1.73m2 Abnormal >60 [facility] Comment on above: Performed By: #### B MP #### [address] [address] Glucose [Mass/Vol] 64 mg/dL Low 74 - 99 [facility] Comment on above: Performed By: #### B MP #### [address] [address] HCO3 (Bld) [Moles/Vol] 27 mmol/L Normal 21 - 32 [facility] Comment on above: Performed By: #### B MP #### [address] [address] Potassium [Moles/Vol] 4.1 mmol/L Normal 3.5 - 5.3 [facility] Comment on above: Performed By: #### B MP #### [address] [address] Sodium [Moles/Vol] 143 mmol/L Normal 136 - 145 [facility] Comment on above: Performed By: #### B MP #### [address] [address] Urea nitrogen [Mass/Vol] 27 mg/dL High 6 - 23 [facility] Comment on above: Performed By: #### B MP #### [address] [address] Metabolic Panelon 07-27-2019 Anion gap [Moles/Vol] 11 mmol/L 10 - 20 [facility] Work Phone: Calcium [Mass/Vol] 9.0 mg/dL 8.6 - 10.3 [facility] Work Phone: Chloride [Moles/Vol] 109 mmol/L above high threshold 98 - 107 [facility] Work Phone: CO2 [Moles/Vol] 27 mmol/L 21 - 32 [facility] Work Phone: Creatinine [Mass/Vol] 1.92 mg/dL above high threshold See Below [facility] Work Phone: Comment on above: Reference Range: 0.5 0 - 1.30 Glucose [Mass/Vol] 64 mg/dL below low threshold 74 - 99 [facility] Work Phone: Potassium [Moles/Vol] 4.1 mmol/L 3.5 - 5.3 [facility] Work Phone: Sodium [Moles/Vol] 143 mmol/L 136 - 145 [facility] Work Phone: Urea nitrogen [Mass/Vol] 27 mg/dL above high threshold 6 - 23 [facility] Work Phone: Otheron 07-27-2019 Interpreted by: UWECTA23/27/19 14:38MRN: [id number] Name: KATERINA DANIELLE STUDY: RENAL BILAT; 07/27/2019 2:41 pm INDICATION:CKD, Essential [...] stonesElectronically signed by: CHELSEA 07/28/19 14:38 Normal [facility] Work Phone: 44 {mL/min/1.73m2} Abnormal >60 [facility] Work Phone: Comment on above: CALCULATIONS OF KATIE MATED GFR ARE PERFORMED USING THE MDRD STUDY EQUATION FOR THE IDMS-TRACEABLE CREATININE METHODS. CLIN CHEM 2007;53:766-72 36 {mL/min/1.73m2} Abnormal >60 [facility] Work Phone: Please click on the link to view the study images Normal -[facility] Work Phone: PARATHYROID HORMONE,INTACTon 07-27-2019 PARATHYROID HORMONE,INTACT 117.6 pg/mL High 18.5 - 88.0 [facility] Comment on above: Result Comment: Yisel ents receiving more than 5 mg/day of biotin may have interference in test results. A sample should be taken no sooner than eight hours after previous dose. Contact the testing laboratory for additional information. Performed By: #### P TH #### [address] [address] PHOSPHORUSon 07-27-2019 Phosphate [Mass/Vol] 2.7 mg/dL Normal 2.5 - 4.9 [facility] Comment on above: Result Comment: The performance characteristics of phosphorus testing in heparinized plasma have been validated by the individual laboratory site where testing is performed. Testing on heparinized plasma is not approved by the FDA; however, such approval is not necessary. Performed By: #### P HOS #### [address] [address] Parathormone Intact, Serumon 07-27-2019 Parathyrin.intact [Mass/Vol] 117.6 pg/mL above high threshold See Below [facility] Work Phone: Comment on above: Reference Range: 18. 5 - 88.0 Patients receiving more than 5 mg/day of biotin may have interference in test results. A sample should be taken no sooner than eight hours after previous dose. Contact the testing laboratory for additional information. Phosphorus, Serumon 07-27-20 19 Phosphate [Mass/Vol] 2.7 mg/dL 2.5 - 4.9 [facility] Work Phone: Comment on above: The performance marie acteristics of phosphorus testing in heparinized plasma have been validated by the individual laboratory site where testing is performed. Testing on heparinized plasma is not approved by the FDA; however, such approval is not necessary. TOTAL PROTEIN, URINE SPOTon 07-27-2019 CREATININE,URINE 167.0 mg/dL Normal 20.0 - 370.0 [facility] Comment on above: Performed By: #### T PS2 #### [address] [address] T. PROTEIN/CREAT RATIO 0.37 mg/mg Creat High 0.00 - 0.17 [facility] Comment on above: Performed By: #### T PS2 #### [address] [address] TOTAL PROT,URINE SPOT 61 mg/dL High 5 - 25 [facility] Comment on above: Performed By: #### T PS2 #### [address] [address] Total Protein, Urine Spoton 07-27-2019 Creatinine (U) [Mass/Vol] 167.0 mg/dL See Below [facility] Work Phone: Comment on above: Reference Range: 20. 0 - 370.0 Protein/Creatinine (U) [Ratio] 0.37 {mg/mg_Creat} above high threshold See Below [facility] Work Phone: Comment on above: Reference Range: 0.0 0 - 0.17 Total Protein, Urine Spot 61 mg/dL above high threshold 5 - 25 [facility] Work Phone: UA MICROSCOPICon 07-27-2019 MUCUS 1+ /LPF Normal [facility] Comment on above: Performed By: #### U AMIC #### [address] [address] RBC 1 /HPF Normal 0-5 [facility] Comment on above: Performed By: #### U AMIC #### [address] [address] WBC 1 /HPF Normal 0-5 [facility] Comment on above: Performed By: #### U AMIC #### [address] [address] URIC ACIDon 07-27-2019 Urate [Mass/Vol] 5.8 mg/dL Normal 4.0 - 7.5 [facility] Comment on above: Result Comment: Anabell puncture immediately after or during the administration of Metamizole may lead to falsely low results. Testing should be performed immediately prior to Metamizole dosing. Performed By: #### U NIKO #### [address] [address] URINALYSISon 07-27-2019 Appearance (U) CLEAR Normal CLEAR [facility] Comment on above: Performed By: #### U A #### [address] [address] Bilirubin (U) [Mass/Vol] Negative Normal NEGATIVE [facility] Comment on above: Performed By: #### U A #### [address] [address] BLOOD SMALL(1+) Abnormal NEGATIVE [facility] Comment on above: Performed By: #### U A #### [address] [address] Color (U) YELLOW Normal STRAW,YELLO W [facility] Comment on above: Performed By: #### U A #### [address] [address] Glucose [Mass/Vol] Negative Normal NEGATIVE [facility] Comment on above: Performed By: #### U A #### [address] [address] Ketones Ql (U) Negative Normal NEGATIVE [facility] Comment on above: Performed By: #### U A #### [address] [place] [address] Leukocyte esterase Test strip Ql (U) Negative Normal NEGATIVE [facility] Comment on above: Performed By: #### U A #### [address] [address] Nitrite Ql (U) Negative Normal NEGATIVE [facility] Comment on above: Performed By: #### U A #### [address] [address] pH (Bld) 6.0 Normal 5.0 - 8.0 [facility] Comment on above: Performed By: #### U A #### [address] [address] Protein (U) [Mass/Vol] 30 (1+) Abnormal NEGATIVE [facility] Comment on above: Performed By: #### U A #### [address] [address] Specific gravity (U) [Rel density] 1.021 Normal 1.005 - 1.035 [facility] Comment on above: Performed By: #### U A #### [address] [address] Urobilinogen Qn (U) <2.0 Normal 0.0 - 1.9 [facility] Comment on above: Performed By: #### U A #### [address] [address] RENAL BILATon 07-27-2019 RENAL BILAT Patient Name: KATERINA DANIELLE STUDY: US RENAL BILAT; 07/27/2019 2:41 pm INDICATION: CKD, Essential (primary) hypertension, Diffuse large B-cell lymphoma. COMPARISON: None. ACCESSION NUMBER(S): [id number] ORDERING CLINICIAN: CHRISTOPHER WATKINS TECHNIQUE: Multiple images [...] Electronically signed by: GRUPO TRAN MD Normal [facility] Uric Acid, Serumon 9 Urate [Mass/Vol] 5.8 mg/dL 4.0 - 7.5 [facility] Work Phone: Comment on above: Venipuncture immedia tely after or during the administration of Metamizole may lead to falsely low results. Testing should be performed immediately prior to Metamizole dosing. Urinalysison 07-27-2019 Appearance (U) CLEAR CLEAR [facility] Work Phone: Color (U) YELLOW See Below [facility] Work Phone: Comment on above: Reference Range: STR AW,YELLOW Glucose Ql (U) Negative NEGATIVE [facility] Work Phone: Ketones Ql (U) Negative NEGATIVE [facility] Work Phone: Leukocyte esterase Test strip Ql (U) Negative NEGATIVE -[facility] Work Phone: pH (U) 6.0 [pH] 5.0 - 8.0 -[facility] Work Phone: Protein (U) [Mass/Vol] 30 (1+) Abnormal NEGATIVE [facility] Work Phone: RBC (U) [#/Vol] SMALL(1+) Abnormal NEGATIVE [facility] Work Phone: Specific gravity (U) [Rel density] 1.021 See Below -[facility] Work Phone: Comment on above: Reference Range: 1.0 05 - 1.035 Urinalysis Negative NEGATIVE -[facility] Work Phone: Urinalysis <2.0 0.0 - 1.9 [facility] Work Phone: Urinalysis, Microscopicon Urinalysis, Microscopic 1 {/HPF} 0-5 [facility] Work Phone: Urinalysis, Microscopic 1+ [facility] Work Phone: VITAMIN D, 25-HYDROXYon 07-03 VITAMIN D, 25-HYDROXY 66 ng/mL Normal [facility] Comment on above: Result Comment: . DEFICIENCY: < 20 NG/ML INSUFFICIENCY: 20-29 NG/ML OPTIMUM LEVEL: 30-80 NG/ML POSSIBLE TOXICITY: > 80 NG/ML THIS ASSAY ACCURATELY QUANTIFIES THE SUM OF VITAMIN D3, 25-HYDROXY AND VIT D2,25-HYDROXY. Performed By: #### V TDOH #### [address] [address] Vitamin D 25-Hydroxyon 07-27 Calcidiol [Mass/Vol] 66 ng/mL [facility] Work Phone: Comment on above: .DEFICIENCY: < 20 NG /MLINSUFFICIENCY: 20-29 NG/MLOPTIMUM LEVEL: 30-80 NG/MLPOSSIBLE TOXICITY: > 80 NG/MLTHIS ASSAY ACCURATELY QUANTIFIES THE SUM OFVITAMIN D3, 25-HYDROXY AND VIT D2,25-HYDROXY. Complete Blood Count + Diffe rentialon 07-02-2019 Basophils (Bld) [#/Vol] 0.01 {x10E9/L} See Below [facility] Work Phone: Comment on above: Reference Range: 0.0 0 - 0.10 Basophils/100 WBC (Bld) 0.3 % 0.0 - 2.0 [facility] Work Phone: Eosinophils (Bld) [#/Vol] 0.09 {x10E9/L} See Below [employer] Work Phone: 1 Comment on above: Reference Range: 0.0 0 - 0.70 Eosinophils/100 WBC (Bld) 2.8 % 0.0 - 6.0 [employer] Work Phone: Erythrocyte distribution width (RBC) [Ratio] 15.4 % above high threshold See Below [employer] Work Phone: Comment on above: Reference Range: 11. 5 - 14.5 Hematocrit (Bld) [Volume fraction] 43.5 % See Below [employer] Work Phone: Comment on above: Reference Range: 41. 0 - 52.0 Hemoglobin (Bld) [Mass/Vol] 13.6 g/dL See Below [employer] Work Phone: Comment on above: Reference Range: 13. 5 - 17.5 Lymphocytes (Bld) [#/Vol] 0.93 {x10E9/L} below low threshold See Below [employer] Work Phone: Comment on above: Reference Range: 1.2 0 - 4.80 Lymphocytes/100 WBC (Bld) 29.3 % See Below [employer] Work Phone: Comment on above: Reference Range: 13. 0 - 44.0 MCHC (RBC) [Mass/Vol] 31.3 g/dL below low threshold See Below [employer] Work Phone: Comment on above: Reference Range: 32. 0 - 36.0 MCV (RBC) [Entitic vol] 87 fL 80 - 100 [employer] Work Phone: Monocytes (Bld) [#/Vol] 0.28 {x10E9/L} See Below [employer] Work Phone: Comment on above: Reference Range: 0.1 0 - 1.00 Monocytes/100 WBC (Bld) 8.8 % 2.0 - 10.0 [employer] Work Phone: Neutrophils (Bld) [#/Vol] 1.84 {x10E9/L} See Below [facility] Work Phone: 1) Comment on above: Reference Range: 1.2 0 - 7.70 Neutrophils/100 WBC (Bld) 58.2 % See Below [facility] Work Phone: 1) Comment on above: Reference Range: 40. 0 - 80.0 Platelets (Bld) [#/Vol] 61 {x10E9/L} below low threshold 150 - 450 [facility] Work Phone: 1() RBC (Bld) [#/Vol] 5.02 {x10E12/L} See Below [facility] Work Phone: 1) Comment on above: Reference Range: 4.5 0 - 5.90 WBC (Bld) [#/Vol] 3.2 {x10E9/L} below low threshold 4.4 - 11.3 [facility] Work Phone: ) Complete Blood Count + Differential 0.6 % 0.0 - 0.9 [facility] Work Phone: ) Comment on above: Percent differential counts (%) should be interpreted in the context of the absolute cell counts (cells/L). Gamma Glutamyl Transferase, Serumon 07-02-2019 Gamma glutamyl transferase [Catalytic activity/Vol] 522 U/L above high threshold 5 - 64 [facility] Work Phone: 1) Imm/Pathon 07-02-2019 IgA [Mass/Vol] 13 mg/dL below low threshold 70 - 400 [facility] Work Phone: 1) Comment on above: MONOCLONAL PROTEINS MAY CAUSE FALSELY LOWRESULTS IN THIS ASSAY. SERUM PROTEINELECTROPHORESIS SHOULD BE DONE THEFIRST TEST TO EVALUATE MONOCLONAL GAMMOPATHY. IgG [Mass/Vol] 589 mg/dL below low threshold 700 - 1600 [facility] Work Phone: 1 Comment on above: MONOCLONAL PROTEINS MAY CAUSE FALSELY LOWRESULTS IN THIS ASSAY. SERUM PROTEINELECTROPHORESIS SHOULD BE DONE THEFIRST TEST TO EVALUATE MONOCLONAL GAMMOPATHY. IgM [Mass/Vol] mg/dL Abnormal 40 - 230 [facility] Work Phone: [phone] Comment on above: MONOCLONAL PROTEINS MAY CAUSE FALSELY LOWRESULTS IN THIS ASSAY. SERUM PROTEINELECTROPHORESIS SHOULD BE DONE THEFIRST TEST TO EVALUATE MONOCLONAL GAMMOPATHY. Metabolic Panelon 07-02-2019 ALP [Catalytic activity/Vol] 271 U/L above high threshold 33 - 120 [facility] Work Phone: [phone] Anion gap [Moles/Vol] 13 mmol/L 10 - 20 [facility] Work Phone: [phone] Bilirubin [Mass/Vol] 0.5 mg/dL 0.0 - 1.2 [facility] Work Phone: [phone] Calcium [Mass/Vol] 9.3 mg/dL 8.6 - 10.6 [facility] [employer] Work Phone: [phone] Chloride [Moles/Vol] 107 mmol/L 98 - 107 [facility] Work Phone: [phone] CO2 [Moles/Vol] 26 mmol/L 21 - 32 [facility] Work Phone: [phone] Creatinine [Mass/Vol] 1.82 mg/dL above high threshold See Below [facility] Work Phone: [phone] Comment on above: Reference Range: 0.5 0 - 1.30 Glucose [Mass/Vol] 90 mg/dL 74 - 99 [facility] Work Phone: [phone] LDH [Catalytic activity/Vol] 202 U/L 84 - 246 [facility] Work Phone: [phone] Potassium [Moles/Vol] 4.7 mmol/L 3.5 - 5.3 [facility] Work Phone: [phone] Protein [Mass/Vol] 6.3 g/dL below low threshold 6.4 - 8.2 [facility] Work Phone: [phone] Sodium [Moles/Vol] 141 mmol/L 136 - 145 [facility] Work Phone: Urea nitrogen [Mass/Vol] 32 mg/dL above high threshold 6 - 23 [facility] Work Phone: Glucose [Mass/Vol] 93 mg/dL 74 - 99 [facility] [employer] Work Phone: Otheron 07-02-2019 Albumin BCP dye [Mass/Vol] 4.4 g/dL 3.4 - 5.0 [facility] Work Phone: ALT With P-5'-P [Catalytic activity/Vol] 56 U/L above high threshold 10 - 52 [facility] Work Phone: Comment on above: Patients treated wit h Sulfasalazine may generate falsely decreased results for ALT. AST With P-5'-P [Catalytic activity/Vol] 39 U/L 9 - 39 [facility] Work Phone: 46 {mL/min/1.73m2} Abnormal >60 [facility] [employer] Work Phone: Comment on above: CALCULATIONS OF KATIE MATED GFR ARE PERFORMED USING THE MDRD STUDY EQUATION FOR THE IDMS-TRACEABLE CREATININE METHODS. CLIN CHEM 2007;53:766-72 38 {mL/min/1.73m2} Abnormal >60 [facility] Work Phone: Interpreted by: BENJY VICK07/02/19 12:12MRN: [id number] Name: KATERINA DANIELLE STUDY:PET/CT LYMPHOMA STAGING; 07/02/2019 9:33 am INDICATION:Currently on CAR T infusion. Evaluate for disease response. NHL. S/pCAR T Cell therapy. 6 month scan. 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 CODING:Subsequent Treatment Strategy (PS) CALIBRATION:Dose Ytyskdngb-oj-Cuju Interval (mins): 54 minMediastinal bloodpool SUV (normal [...] interpretation as stated. [facility]Elect[facility]ically signed by: DANIAL VICK 07/02/19 12:12 [...] WBC (Bld) 2.2 % 0.0 - 6.0 [facility] Work Phone: Erythrocyte distribution width (RBC) [Ratio] 13.7 % See Below [facility] Work Phone: Comment on above: Reference Range: 11. 5 - 14.5 Hematocrit (Bld) [Volume fraction] 38.8 % below low threshold See Below [facility] [...] WBC (Bld) 11.5 % 2.0 - 10.0 [facility] Work Phone: Neutrophils (Bld) [#/Vol] 1.86 {x10E9/L} See Below [facility] Work Phone: Comment on above: Reference Range: 1.2 0 - 7.70 Neutrophils/100 WBC (Bld) 58.0 % See Below [facility] Work Phone: Comment on above: Reference Range: 40. 0 - 80.0 Platelets (Bld) [#/Vol] 60 {x10E9/L} below low threshold 150 - 450 [facility] Work Phone: [phone] RBC (Bld) [#/Vol] 4.18 {x10E12/L} below low threshold See Below [facility] Work Phone: Comment on above: Reference Range: 4.5 0 - 5.90 WBC (Bld) [#/Vol] 3.2 {x10E9/L} below low threshold 4.4 - 11.3 [facility] Work Phone: Complete Blood Count + Differential 0.3 % 0.0 - 0.9 [facility] Work Phone: Comment on above: Percent differential counts (%) should be interpreted in the context of the absolute cell counts (cells/L). Ferritin, Serumon 04-02-2019 Ferritin [Mass/Vol] 667 ug/L above high threshold 20 - 300 [facility] Work Phone: [phone] Fibrinogen Assayon 9 Fibrinogen Assay 435 mg/dL above high threshold 200 - 400 [facility] Work Phone: Hematologyon 04-02-2019 aPTT Coag (PPP) [Time] 25 {sec} below low threshold 28 - 38 MG-Ophthalmo logy[facility] [facility] Work Phone: [phone] Comment on above: THE APTT IS NO LONGE R USED FOR MONITORING UNFRACTIONATED HEPARIN THERAPY. FOR MONITORING HEPARIN THERAPY, USE THE HEPARIN ASSAY. INR Coag (PPP) [Relative time] 1.0 {INR} 0.9 - 1.1 MG-Ophthalmo [facility] [facility] Work Phone: [phone] PT Coag (PPP) [Time] 11.0 {sec} 9.7 - 12.7 MG-O phthalmo [facility] [facility] Work Phone: Immunoglobulin G Level, Seru mon 04-02-2019 IgG [Mass/Vol] 487 mg/dL below low threshold 700 - 1600 MG[facility]Ophthalmo [facility] [facility] Work Phone: Comment on above: MONOCLONAL PROTEINS MAY CAUSE FALSELY LOWRESULTS IN THIS ASSAY. SERUM PROTEINELECTROPHORESIS SHOULD BE DONE THEFIRST TEST TO EVALUATE MONOCLONAL GAMMOPATHY. Magnesium, Serumon 9 Magnesium [Mass/Vol] 2.39 mg/dL See Below MG-O phthalmo logy[facility] [facility] Work Phone: Comment on above: Reference Range: 1.6 0 - 2.40 Metabolic Panelon 04-02-2019 ALP [Catalytic activity/Vol] 327 U/L above high threshold 33 - 120 MG-Ophthalmo logy[facility] [facility] Work Phone: Anion gap [Moles/Vol] 14 mmol/L 10 - 20 MG- Ophthalmo logy[facility] [facility] Work Phone: Bilirubin [Mass/Vol] 0.7 mg/dL 0.0 - 1.2 MG-O phthalmo logy[facility] [facility] Work Phone: Calcium [Mass/Vol] 9.6 mg/dL 8.6 - 10.6 MG-Oph thalmo logy-[place] [employer] Work Phone: Chloride [Moles/Vol] 106 mmol/L 98 - 107 MG-O phthalmo logy[facility] [facility] Work Phone: CO2 [Moles/Vol] 25 mmol/L 21 - 32 MG-Ophtha lmo logy[facility] [employer] Work Phone: Creatinine [Mass/Vol] 1.50 mg/dL above high threshold See Below MG-Ophthalmo logy[facility] [facility] Work Phone: Comment on above: Reference Range: 0.5 0 - 1.30 Glucose [Mass/Vol] 94 mg/dL 74 - 99 [facility] Work Phone: LDH [Catalytic activity/Vol] 161 U/L 84 - 246 MG-[facility]hthalmo [place] Work Phone: Potassium [Moles/Vol] 4.6 mmol/L 3.5 - 5.3 MG- [facility]hthalmo [place] Work Phone: Protein [Mass/Vol] 6.2 g/dL below low threshold 6.4 - 8.2 MG[facility]hthalmo [place] Work Phone: Sodium [Moles/Vol] 140 mmol/L 136 - 145 [facility] Work Phone: Urea nitrogen [Mass/Vol] 22 mg/dL 6 - 23 MG-Ophthalmo [facility] e 02 Work Phone: Glucose [Mass/Vol] 92 mg/dL 74 - 99 MG-Oph [facility] e 02 Work Phone: Otheron 04-02-2019 Interpreted by: REAGAN AHMADI04/02/19 13:04MRN: [id number] Name: KATERINA DANIELLE STUDY:PET/CT LYMPHOMA STAGING; 04/02/2019 [...] (SUV) units. CODING:Subsequent Treatment Strategy (PS) CALIBRATION:Dose Ueluapfvh-ss-Wizy Interval (mins): 105 minMediastinal bloodpool SUV (normal [...] interpretation as [facility]. [facility] Electronically signed by: ZARA AHMADI 04/02/19 [...] 03-19-2019 CRP [Mass/Vol] 0.82 mg/dL MG-Ophthal mo logy[facility] [facility] Work Phone: Comment on above: REF VALUE< 1.00 Complete Blood Count + Diffe rentialon 03-19-2019 Basophils (Bld) [#/Vol] 0.01 {x10E9/L} See Below MG-Ophthalmo log[facility] [facility] Work Phone: Comment on above: Reference Range: 0.0 0 - 0.10 Basophils/100 WBC (Bld) 0.4 % 0.0 - 2.0 Corwin Weaver Work Phone: Eosinophils (Bld) [#/Vol] 0.06 {x10E9/L} See Below Corwin Weaver Work Phone: Comment on above: Reference Range: 0.0 0 - 0.70 Eosinophils/100 WBC (Bld) 2.3 % 0.0 - 6.0 Corwin Weaver Work Phone: Erythrocyte distribution width (RBC) [Ratio] 14.9 % above high threshold See Below Corwin Weaver Work Phone: Comment on above: Reference Range: 11. 5 - 14.5 Hematocrit (Bld) [Volume fraction] 37.4 % below low threshold See Below Corwin Weaver Work Phone: Comment on above: Reference Range: 41. 0 - 52.0 Hemoglobin (Bld) [Mass/Vol] 11.9 g/dL below low threshold See Below Corwin Weaver Work Phone: Comment on above: Reference Range: 13. 5 - 17.5 Lymphocytes (Bld) [#/Vol] 0.78 {x10E9/L} below low threshold See Below Corwin Weaver Work Phone: Comment on above: Reference Range: 1.2 0 - 4.80 Lymphocytes/100 WBC (Bld) 30.2 % See Below Corwin Weaver Work Phone: Comment on above: Reference Range: 13. 0 - 44.0 MCHC (RBC) [Mass/Vol] 31.8 g/dL below low threshold See Below Corwin Weaver Work Phone: Comment on above: Reference Range: 32. 0 - 36.0 MCV (RBC) [Entitic vol] 95 fL 80 - 100 MG-Ophthalmo logsamra-[place] Work Phone: Monocytes (Bld) [#/Vol] 0.33 {x10E9/L} See Below MG-Ophthalmo logsamra-[place] Work Phone: Comment on above: Reference Range: 0.1 0 - 1.00 Monocytes/100 WBC (Bld) 12.8 % 2.0 - 10.0 MG-Ophthalmo logsamra-[place] Work Phone: Neutrophils (Bld) [#/Vol] 1.38 {x10E9/L} See Below MG-Ophthalmo logsamra-[place] Work Phone: Comment on above: Reference Range: 1.2 0 - 7.70 Neutrophils/100 WBC (Bld) 53.5 % See Below MG-Ophthalmo logsamra-[place] hardik Merino Work Phone: Comment on above: Reference Range: 40. 0 - 80.0 Platelets (Bld) [#/Vol] 54 {x10E9/L} below low threshold 150 - 450 MG-Ophthalmo jerri-[place] Work Phone: [phone] RBC (Bld) [#/Vol] 3.95 {x10E12/L} below low threshold See Below MG-Ophthalmo jerri-[place] hardik Merino Work Phone: Comment on above: Reference Range: 4.5 0 - 5.90 WBC (Bld) [#/Vol] 2.6 {x10E9/L} below low threshold 4.4 - 11.3 MG-Ophthalmo logsamra-[place] Work Phone: Complete Blood Count + Differential 0.8 % 0.0 - 0.9 MG-Ophthalmo logsamra-[place] Work Phone: Comment on above: Percent differential counts (%) should be interpreted in the context of the absolute cell counts (cells/L). Ferritin, Serumon 07-19-2019 Ferritin [Mass/Vol] 569 ug/L above high threshold 20 - 300 MG-Ophthalmo log[facility] [facility] Work Phone: Fibrinogen Assayon 9 Fibrinogen Assay 388 mg/dL 200 - 400 MG-Ophth almo logy[facility] [facility] Work Phone: Hematologyon 03-19-2019 aPTT Coag (PPP) [Time] 31 {sec} 28 - 38 MG-Ophthalmo [facility] [facility] Work Phone: Comment on above: THE APTT IS NO LONGE R USED FOR MONITORING UNFRACTIONATED HEPARIN THERAPY. FOR MONITORING HEPARIN THERAPY, USE THE HEPARIN ASSAY. INR Coag (PPP) [Relative time] 1.0 {INR} 0.9 - 1.1 MG-Ophthalmo [facility] [facility] Work Phone: [phone] PT Coag (PPP) [Time] 11.0 {sec} 9.7 - 12.7 MG-O phthalmo logy[facility] [facility] Work Phone: Immunoglobulin G Level, Seru mon 03-19-2019 IgG [Mass/Vol] 263 mg/dL below low threshold 700 - 1600 MG-Ophthalmo logy[facility] [facility] Work Phone: Comment on above: MONOCLONAL PROTEINS [...] e B102 Work Phone: Anion gap [Moles/Vol] 13 mmol/L 10 - 20 MG- Ophthalmo log[facility] [facility] Work Phone: Bilirubin [Mass/Vol] 0.6 mg/dL 0.0 - 1.2 MG-O phthalmo logy[place] 02 Work Phone: Calcium [Mass/Vol] 9.7 mg/dL 8.6 - 10.6 MG-Oph thalmo logy-[place] 02 Work Phone: Chloride [Moles/Vol] 107 mmol/L 98 - 107 MG-O phthalmo logy[place] 02 Work Phone: CO2 [Moles/Vol] 24 mmol/L 21 - 32 MG-Ophtha lmo logy-[place] Work Phone: Creatinine [Mass/Vol] 1.49 mg/dL above high threshold See Below MG-Ophthalmo logy[facility] [employer] Work Phone: Comment on above: Reference Range: 0.5 0 - 1.30 Glucose [Mass/Vol] 107 mg/dL above high threshold 74 - 99 MG-Ophthalmo log[facility] [facility] Work Phone: LDH [Catalytic activity/Vol] 171 U/L 84 - 246 MG-Ophthalmo logy[facility] Work Phone: Potassium [Moles/Vol] 4.2 mmol/L 3.5 - 5.3 MG- Ophthalmo logy[facility] Work Phone: Protein [Mass/Vol] 5.7 g/dL below low threshold 6.4 - 8.2 MG-Ophthalmo log[facility] [facility] Work Phone: Sodium [Moles/Vol] 140 mmol/L 136 - 145 MG-Oph thalmo logy-[place] 02 Work Phone: Urea nitrogen [Mass/Vol] 21 mg/dL 6 - 23 MG-Ophthalmo logy[facility] 02 Work Phone: Otheron 03-19-2019 Albumin BCP dye [...] {mL/min/1.73m2} Abnormal >60 MG-Oph thalmo logy[facility] [employer] Work Phone: Comment on above: CALCULATIONS OF KATIE MATED GFR ARE PERFORMED USING THE MDRD STUDY EQUATION FOR THE IDMS-TRACEABLE CREATININE METHODS. CLIN CHEM 2007;53:[id number] Thyroidon 03-19-2019 TSH Qn 0.78 {mIU/L} See Below MG-Ophthalmo logy[facility] [facility] Work Phone: Comment on above: Reference Range: 0.4 4 - 3.98 TSH testing is performed using different testing methodology at [facility] than at other [facility]. Direct result comparisons should only be made within the same method.. Patients receiving more than 5 mg/day of biotin may have interference in test results. A sample should be taken no sooner than eight hours after previous dose. Contact [phone] for additional information. Uric Acid, Serumon 9 Urate [Mass/Vol] 5.5 mg/dL 4.0 - 7.5 MG-Ophth almo logy-[place] [employer] Work Phone: Comment on above: Venipuncture immedia tely after or during the administration of Metamizole may lead to falsely low results. Testing should be performed immediately prior to Metamizole dosing. Vital Signs Date Time Vital Sign Value Performing Clinician Facility 05-19-2024 15:51-0400 Body weight 119.74 kg MD Nael Farias Work Phone: [facility] 05-19-2024 15:51-0400 Diastolic blood pressure 84 mm[Hg] MD Nael Farias Work Phone: [facility] 05-19-2024 15:51-0400 Heart rate 70 /min MD Nael Farias Work Phone: [facility] 05-19-2024 15:51-0400 SaO2% (BldA) [Mass fraction] 97 % MD Nael Farias Work Phone: [facility] 05-19-2024 15:51-0400 Systolic blood pressure 140 mm[Hg] MD Nael Farias Work Phone: [facility] 01-05-2024 10:39-0400 Body mass index (BMI) [Ratio] 35.8 kg/m2 Sandra Cole MD Work Phone: [facility] [place] 01-05-2024 10:39-0400 Body weight 119.75 kg Sandra Cole MD Work Phone: [facility] [place] 01-05-2024 10:39-0400 Heart rate 72 /min Sandra Cole MD Work Phone: [facility] [place] 01-05-2024 10:39-0400 SaO2% (BldA) [Mass fraction] 96 % Sandra Cole MD Work Phone: [facility] [place] 12-05-2023 09:53-0400 Body height 182.9 cm Christopher Watkins MD Work Phone: [facility] [place] 12-05-2023 09:53-0400 Body mass index (BMI) [Ratio] 35.67 kg/m2 Christopher Watkins MD Work Phone: [facility] [place] 12-05-2023 09:53-0400 Body weight 119.3 kg Christopher Watkins MD Work Phone: [facility] [place] 12-05-2023 09:53-0400 Diastolic blood pressure 84 mm[Hg] Christopher Watkins MD Work Phone: [facility] [place] 12-05-2023 09:53-0400 Heart rate 62 /min Christopher Watkins MD Work Phone: [facility] [place] 12-05-2023 09:53-0400 Systolic blood pressure 128 mm[Hg] Christopher Watkins MD Work Phone: [facility] [place] 08-13-2023 11:15-0500 Body mass index (BMI) [Ratio] 35.16 kg/m2 Anirudh Sears MD Work Phone: [facility] [place] 08-13-2023 11:15-0500 Body temperature 97.3 [degF] Anirudh Sears MD Work Phone: [facility] [place] 08-13-2023 11:15-0500 Body weight 117.6 kg Anirudh Sears MD Work Phone: [facility] [place] 08-13-2023 11:15-0500 Diastolic blood pressure 78 mm[Hg] Anirudh Sears MD Work Phone: [facility] [place] 08-13-2023 11:15-0500 Heart rate 70 /min Anirudh Sears MD Work Phone: [facility] [place] 08-13-2023 11:15-0500 Respiratory rate 16 /min Anirudh Sears MD Work Phone: [facility] [place] 08-13-2023 11:15-0500 SaO2% (BldA) [Mass fraction] 98 % Anirudh Sears MD Work Phone: [facility] [place] 08-13-2023 11:15-0500 Systolic blood pressure 115 mm[Hg] Anirudh Sears MD Work Phone: [facility] [place] 02-20-2023 13:54-0400 Body height 182.88 cm Nael Farias Work Phone: [facility] Work Phone: 02-20-2023 13:54-0400 Body mass index (BMI) [Ratio] 35.26 kg/m2 Nael Farias Work Phone: [facility] Work Phone: 02-20-2023 13:54-0400 Body surface area Derived from formula 2.38 m2 Moizscott Partida Stephanieevelyn Work Phone: [facility] Work Phone: 02-20-2023 13:54-0400 Body temperature 97.16 [degF] Moizscott Partida Stephanieevelyn Work Phone: [facility] Work Phone: 02-20-2023 13:54-0400 Body weight 117.94 kg Moizscott Farias Work Phone: [facility] Work Phone: 02-20-2023 13:54-0400 Diastolic blood pressure 95 mm[Hg] Moizscott Farias Work Phone: [facility] Work Phone: 02-20-2023 13:54-0400 Heart rate 75 /min Nael Brownevelyn Work Phone: [facility] Work Phone: 02-20-2023 13:54-0400 Respiratory rate 16 /min Nael Farias Work Phone: [facility] Work Phone: 02-20-2023 13:54-0400 SaO2% (BldA) [Mass fraction] 96 % Nael Farias Work Phone: [facility] Work Phone: 02-20-2023 13:54-0400 Systolic blood pressure 136 mm[Hg] Nael Brownyer Work Phone: [facility] Work Phone: 01-29-2023 13:51-0400 Body height 182.88 cm Nael Brownevelyn Work Phone: [facility] 3 DO Work Phone: 01-29-2023 13:51-0400 Body mass index (BMI) [Ratio] 36.08 kg/m2 Nael Brownyer Work Phone: [facility] 3 DO Work Phone: 01-29-2023 13:51-0400 Body surface area Derived from formula 2.4 m2 Nael Farias Work Phone: [facility] 3 DO Work Phone: 01-29-2023 13:51-0400 Body temperature 97.9 [degF] Nael Brownyer Work Phone: [facility] 3 DO Work Phone: 01-29-2023 13:51-0400 Body weight 120.66 kg Nael Brownevelyn Work Phone: [facility] 3 DO Work Phone: 01-29-2023 13:51-0400 Diastolic blood pressure 84 mm[Hg] Nael Brownyer Work Phone: [facility] 3 DO Work Phone: 01-29-2023 13:51-0400 Heart rate 72 /min Nael Farias Work Phone: [facility] 3 DO Work Phone: 01-29-2023 13:51-0400 Systolic blood pressure 138 mm[Hg] Nael Jaquan Farias Work Phone: [facility] 3 DO Work Phone: 12-20-2022 10:45-0400 Diastolic blood pressure 98 mm[Hg] Moizscott Farias Work Phone: [facility] [address] DO Work Phone: 12-20-2022 10:45-0400 Heart rate 82 /min Moizscott Farias Work Phone: [facility] 2099 DO Work Phone: 12-20-2022 10:45-0400 SaO2% (BldA) [Mass fraction] 98 % Moizscott Farias Work Phone: [facility] 2099 DO Work Phone: 12-20-2022 10:45-0400 Systolic blood pressure 134 mm[Hg] Moizscott Farias Work Phone: KP-[place]karad[facility] [address]99 DO Work Phone: 12-28-2021 10:15-0400 Body height 182.88 cm Moizscott Partida Stephanieevelyn Work Phone: [facility] 2099 DO Work Phone: 12-28-2021 10:15-0400 Body mass index (BMI) [Ratio] 36.21 kg/m2 Nael Brownevelyn Work Phone: ZG-[place]ft[facility] 2099 DO Work Phone: 12-28-2021 10:15-0400 Body surface area Derived from formula 2.41 m2 Nael Farias Work Phone: [facility] 2099 DO Work Phone: 12-28-2021 10:15-0400 Body weight 121.11 kg Nael Farias Work Phone: [facility]-[place]w[facility] [address] DO Work Phone: 12-28-2021 10:15-0400 Diastolic blood pressure 94 mm[Hg] Nael Brownyer Work Phone: [facility] 2099 DO Work Phone: 12-28-2021 10:15-0400 Systolic blood pressure 140 mm[Hg] Nael Brownyer Work Phone: [facility] 2099 DO Work Phone: 11-08-2021 10:18-0500 Body height 182.88 cm Nael Farias Work Phone: [facility] 3 DO Work Phone: 11-08-2021 10:18-0500 Body mass index (BMI) [Ratio] 36.48 kg/m2 Nael Farias Work Phone: [facility] 3 DO Work Phone: 11-08-2021 10:18-0500 Body surface area Derived from formula 2.42 m2 Nael Farias Work Phone: [facility] 3 DO Work Phone: 11-08-2021 10:18-0500 Body temperature 97 [degF] Nael Brownyer Work Phone: [facility] 3 DO Work Phone: 11-08-2021 10:18-0500 Body weight 122.02 kg Nael Farias Work Phone: [facility] 3 DO Work Phone: 11-08-2021 10:18-0500 Diastolic blood pressure 82 mm[Hg] Nael Farias Work Phone: [facility] 3 DO Work Phone: 11-08-2021 10:18-0500 Heart rate 72 /min Moizscott Jaquan Andrea Work Phone: [facility] 3 DO Work Phone: 11-08-2021 10:18-0500 Systolic blood pressure 130 mm[Hg] Moizscott Jaquan Andrea Work Phone: [facility] 3 DO Work Phone: 05-21-2021 11:28-0400 Body height 182.88 cm Moizscott Jaquan Andrea Work Phone: DF-[place]ngp[facility] [address]99 DO Work Phone: 05-21-2021 11:28-0400 Body mass index (BMI) [Ratio] 35.8 kg/m2 Moizscott Jaquan Andrea Work Phone: [facility] 2099 DO Work Phone: 05-21-2021 11:28-0400 Body surface area Derived from formula 2.4 m2 Moizscott Jaquan Andrea Work Phone: [facility] 2099 DO Work Phone: 05-21-2021 11:28-0400 Body weight 119.75 kg Nael Farias Work Phone: [facility] 2099 DO Work Phone: 05-21-2021 11:28-0400 Diastolic blood pressure 90 mm[Hg] Moizscott Jaquan Andrea Work Phone: [facility] 2099 DO Work Phone: 05-21-2021 11:28-0400 Systolic blood pressure 142 mm[Hg] Nael Partida Andrea Work Phone: [facility] 2099 DO Work Phone: 08-02-2019 12:54-0500 BMI (Body Mass Index) 32.98 kg/m2 Christopher TRACYLN-Qkasbjoks-Xcebh an Work Phone: 08-02-2019 12:54-0500 Body Temperature 96.62 [degF] Christopher Neha UO-Dwlboluwj-Tb idm an Work Phone: 08-02-2019 12:54-0500 Body weight 110.31 kg Christopher Neha YC-Huhbzrkum-Cfn dm an Work Phone: 08-02-2019 12:54-0500 BP Diastolic 76 mm[Hg] Christopher Neha PD-Hcgurjeyp-Tig dm an Work Phone: 08-02-2019 12:54-0500 BP Systolic 117 mm[Hg] Christopher Neha EO-Lfrgzpazr-Dvr dm an Work Phone: 08-02-2019 12:54-0500 BSA (Body Surface Area) 2.31 m2 Christopher Neha HV-Yvblcxyqx-Fwfkm an Work Phone: 08-02-2019 12:54-0500 Height 182.88 cm Christopher Neha FL-Lizdiadsy-Vtg dm an Work Phone: 08-02-2019 12:54-0500 Pulse (Heart Rate) 79 /min Christopher Neha MG-Neurology- [place] Work Phone: 08-02-2019 12:54-0500 Pulse Oximetry 100 % Christopher Neha GU-Pfsxvcejj-Ajj dm an Work Phone: 08-02-2019 12:54-0500 Respiratory Rate 16 /min Christopher Neha HX-Bujkuluva-Mw idm an Work Phone: 08-02-2019 12:54-0500 0 1 Christopher Neha LG-Llmaavwco-Dmi dm an Work Phone: Comment on above: Pain Scale 07-26-2019 11:44-0500 BMI (Body Mass Index) 33.12 kg/m2 Christopher Neha FZ-Qercxczaj-Mapqh an Work Phone: 07-26-2019 11:44-0500 Body Temperature 96.3 [degF] Christopher Neha NW-Szkywjifo-Qv idm an Work Phone: 07-26-2019 11:44-0500 Body weight 110.76 kg Christopher Neha UG-Mmematqen-Ufe dm an Work Phone: 07-26-2019 11:44-0500 BP Diastolic 75 mm[Hg] Christopher Neha CS-Qgepmxcha-Asj dm an Work Phone: 07-26-2019 11:44-0500 BP Systolic 128 mm[Hg] Christopher Neha RI-Juaafzibo-Zrq dm an Work Phone: 07-26-2019 11:44-0500 BSA (Body Surface Area) 2.32 m2 Christopher Neha UJ-Wgvevclrl-Yvbgc an Work Phone: 07-26-2019 11:44-0500 Height 182.88 cm Christopher Neha CR-Cykzrdvjv-Wsj dm an Work Phone: 07-26-2019 11:44-0500 Pulse (Heart Rate) 85 /min Christopher Neha MG-Neurology- [place] Work Phone: 07-26-2019 11:44-0500 Pulse Oximetry 100 % Christopher Neha GY-Yxrvykxxk-Nux dm an Work Phone: 07-26-2019 11:44-0500 Respiratory Rate 16 /min Christopher Neha JG-Mfpykgrpl-Lr idm an Work Phone: 07-26-2019 11:44-0500 3 1 Christopher Neha AN-Qhurtkqbu-Rgr dm an Work Phone: Comment on above: Pain Scale Encounters Encounter Date Encounter Type Care Provider Facility Start: 05-25-2024 End: 05-25-2024 ambulatory NAEL FARIAS Not Available Start: 05-19-2024 End: 05-19-2024 ambulatory MD Nael Farias Work Phone: [facility] Work Phone: Start: 05-19-2024 End: 05-19-2024 Patient encounter procedure MD Nael Farias Work Phone: [facility] Work Phone: Start: 05-10-2024 End: 05-10-2024 ambulatory NADEEM MORRISON Not Available Start: 04-27-2024 End: 04-27-2024 ambulatory ANIRUDH Katina [facility] Start: 04-15-2024 End: 04-15-2024 Patient encounter procedure MD Nael Farias Work Phone: [facility] [place] Work Phone: Start: 04-15-2024 End: 04-15-2024 ambulatory MD Nael Farias Work Phone: [facility] Work Phone: Start: 04-13-2024 End: 04-13-2024 ambulatory NADEEM MORRISON Not Available Start: 03-23-2024 End: 03-23-2024 ambulatory NADEEM MORRISON Not Available Start: 02-17-2024 End: 02-17-2024 ambulatory NAEL FARIAS Not Available Start: 01-05-2024 End: 01-05-2024 [facility] Start: 01-05-2024 End: 01-05-2024 Office outpatient visit 25 minutes Sandra Cole MD Work Phone: [facility] Comment on above: Asthma, unspecified asthma severity, unspecified whether complicated, unspecified whether persistent ([facility]-HCC) (Primary Dx); CVID (common variable immunodeficiency) (Multi) Start: 12-05-2023 End: 12-05-2023 ambulatory [facility] Ambulatory Start: 12-05-2023 End: 12-05-2023 Office outpatient visit 15 minutes Christopher Watkins MD Work Phone: [facility] Comment on above: Stage 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 disease (CMS/HCC) (Primary Dx); Essential hypertension; Hyperparathyroidism, secondary (CMS/HCC) Start: 11-05-2023 End: 11-05-2023 ambulatory NAEL FARIAS Not Available Start: 10-23-2023 End: 10-23-2023 ambulatory NAEL FARIAS Not Available Start: 09-11-2023 End: 09-11-2023 ambulatory NAEL FARIAS Not Available Start: 09-09-2023 End: 09-09-2023 ambulatory SANDRA Daniel [facility] Ambulatory Start: 09-09-2023 End: 09-09-2023 Office outpatient visit 25 minutes Sandra Cole MD Work Phone: [facility] Comment on above: Hypogammaglobulinemi a (CMS/HCC) (Primary Dx); CVID (common variable immunodeficiency) (CMS/HCC) Start: 08-13-2023 End: 08-13-2023 Office outpatient visit 15 minutes Anirudh Sears MD Work Phone: [facility] Comment on above: Hypogammaglobulinemi a (CMS/HCC) Start: 08-13-2023 End: 08-13-2023 ambulatory ANIRUDH SEARS [facility] Start: 07-16-2023 End: 07-16-2023 ambulatory NOHELIA MACHADO Not Available Start: 05-29-[address] Nael Farias Facility: Start: 04-07-2023 Rx Renewal Nael Stout er Work Phone: [facility] 3 DO Work Phone: Start: 02-25-2023 AUDIT Nael Stout er Work Phone: [facility] Work Phone: Start: 02-20-2023 Current tobacco non- user cad cap copd pv dm Nael Farias [facility] Work [facility]: Start: 02-20-[address] Fab Clark Faci lity:[id number] Start: 01-29-2023 Office outpatient vi sit 25 minutes Nael Farias Work Phone: [facility] 3 DO Work Phone: Start: 01-29-[address] Nael Farias Facility: Start: 01-22-[address] Nael Farias Facility:[facility] Start: 01-02-2023 End: 01-03-2023 ambulatory SANDRA COLE Facility:[facility]1 Start: 12-20-2022 Office outpatient vi sit 15 minutes Nael Farias Work Phone: [facility] [address] DO Work Phone: Start: 12-20-2022 Patient encounter procedure Moiz Farias Work Phone: [facility] 2100 DO Work Phone: Start: 12-20-[address] Nael Farias Facility:[id number] Start: 10-22-2022 Rx Renewal Nael Stout er Work Phone: [facility] 250 DO Work Phone: Start: 10-15-2022 End: 10-16-[address] NAEL FARIAS . Facility:[facility]1 Start: 10-11-2022 End: 10-12-[address] DOCTOR CHÁVEZ Facility:[facility]1 Start: 10-10-2022 ambulatory Anirudh Sears Facility:[facility] Start: 09-27-2022 End: 09-28-[address] DOCTOR CHÁVEZ Facility:[facility]1 Start: 08-15-2022 ambulatory Anirudh Sears Facility:[facility] [facility] Start: 08-15-2022 ambulatory Anirudh Sears Faci lity:[id number] Start: 08-12-2022 End: 08-13-[address] DOCTOR CHÁVEZ Facility:H1 Start: 07-18-2022 End: 07-19-[address] DOCTOR CHÁVEZ Facility:H1 Start: 07-16-[address] Nael Farias Facility: Start: 06-11-2022 End: 06-11-2022 ambulatory MD Nael Farias Work Phone: [facility] Work Phone: Start: 06-11-2022 End: 06-11-2022 Patient encounter procedure MD Nael Farias Work Phone: [facility]-Pre[facility] Start: 04-01-2022 End: 04-02-[address] NAEL FARIAS . Facility:H1 Start: 02-21-[address] Nael Farias Facility:[id number] Start: 02-20-2022 End: 02-21-[address] DOCTOR CHÁVEZ Facility:H1 Start: 12-28-2021 Office outpatient vi sit 15 minutes Nael Farias Work Phone: LL-Qdfzybbzsk-[place] 2100 DO Work Phone: Start: 12-28-2021 Patient encounter procedure Ed chavez J Andrea Work Phone: YH-Rnjxfxcfer-Zgsb [place] 2100 DO Work Phone: Start: 11-14-[address] Nael Farias Facility:[id number] Start: 11-08-2021 Office outpatient vi sit 25 minutes Nael Farias Work Phone: -[facility] 3 DO Work Phone: Start: 05-22-2021 Chart Update Nael Stout er Work Phone: LU-Pspzqbnhhn-Bqyd [place] 2100 DO Work Phone: Start: 05-21-2021 Patient encounter procedure Ed chavez J Andrea Work Phone: AJ-Mecnqiswxz-[place] 2100 DO Work Phone: Start: 08-02-2019 Patient encounter procedure Christopher Ra shidi JO-Urfewxqim-Myims an Work Phone: Start: 07-26-2019 Patient encounter procedure Christopher Ra shidi ER-Xautrbnpe-Alkwc an Work Phone: Start: 04-08-2019 Patient encounter procedure Nael valera GA-Exrqyjurekfoh-U [place] B102 Work Phone: Start: 03-08-2019 Patient encounter procedure Nael ramsayer CV-Cqdbkyexdltvs-W [place] B102 Work Phone: Start: 07-08-2018 Patient encounter procedure Nael valera ZP-Ehahqqxsyetss-N [place] B102 Work Phone: Start: 03-13-2018 Patient encounter procedure Nael ramsayer KN-Gijybwqxvzrmr-U [place] B102 Work Phone: Start: 12-17-2017 Patient encounter procedure Nael ramsayer LR-Qzpmefvkwcbol-P [place] B102 Work Phone: Start: 09-19-2017 Patient encounter procedure Nael ramsayer CE-Rvciiglcqdwzj-S [place] B102 Work Phone: Procedures Date Procedure Procedure Detail Performing Clinician Start: 04-15-2024 MRI of cervical spin e with contrast MD Nael Farias Work Phone: Start: 04-15-2024 MRI of head MD Nael Farias Work Phone: Start: 09-09-2023 IMMUNOGLOBULINS (IGG , IGA, IGM) SANDRA COLE Start: 06-13-2022 Paola Sears MD Work Phone: Start: 08-02-2019 Assay [...] for malignant neoplasm of colon [facility] Start: 08-16-2024 End: 08-16-2024 Patient encounter procedure 08/16/2024 10:40 AM EST Office Visit [facility] [address] [place] [address] Dr [address] [place] [id number] Anirudh Sears MD [address] [place] [address] Dr [address] [place], [place] [id number] [facility] Start: 07-05-2024 End: 07-05-2024 Patient encounter procedure 07/05/2024 10:45 AM EST Office Visit [facility] [address] [place] [address] Sandra Cole MD [address] [facility], [address] [place] [address] [facility] Start: 06-11-2024 End: 06-11-2024 Patient encounter procedure 06/11/2024 10:30 AM EDT Office Visit [facility] [address] [place] [address] Dr [address] [place] [phone] Christopher Watkins MD [address] [place] [address] Dr [address] [place] [address] [facility] Start: 01-05-2024 End: 01-05-2024 Patient encounter procedure 01/05/2024 10:45 AM EDT Office Visit [facility] [address] [place] [address] Sandra Cole MD [address] [facility], [address] [place] [address] [facility] Start: 12-05-2023 End: 12-04-2024 Basic metabolic 2000 panel - Serum or Plasma Basic Metabolic Panel Lab Routine Stage 3b chronic kidney disease (CMS/HCC) Essential hypertension Expected: 12/05/2023 (Approximate), Expires: 12/04/2024 [facility] Service Area Work Phone: Comment on above: Expected: 12/05/2023 (Approximate), Expires: 12/04/2024 Start: 12-05-2023 End: 12-04-2024 Creatinine [Mass/volume] in Urine Creatinine, Urine Random Lab Routine Stage 3b chronic kidney disease (CMS/HCC) Essential hypertension Expected: 12/05/2023 (Approximate), Expires: 12/04/2024 [facility] Work Phone: Comment on above: Expected: 12/05/2023 (Approximate), Expires: 12/04/2024 Start: 12-05-2023 End: 12-04-2024 Parathyrin.intact [Mass/volume] in Serum or Plasma Parathyroid Hormone, Intact Lab Routine Stage 3b chronic kidney disease (CMS/HCC) Essential hypertension Expected: 12/05/2023 (Approximate), Expires: 12/04/2024 [facility] Work Phone: Comment on above: Expected: 12/05/2023 (Approximate), Expires: 12/04/2024 Start: 12-05-2023 End: 12-04-2024 Protein, Urine Random Protein, Urine Random Lab Routine Stage 3b chronic kidney disease (CMS/HCC) Essential hypertension Expected: 12/05/2023 (Approximate), Expires: 12/04/2024 [facility] Work Phone: Comment on above: Expected: 12/05/2023 (Approximate), Expires: 12/04/2024 Start: 11-27-2023 End: 11-27-2023 Patient encounter procedure 11/27/2023 12:20 PM EDT Office Visit [facility] [address] [facility] [address] [place] [address] [place] [address] [facility] [address] [place] [address] [facility] Start: 10-20-2023 End: 10-20-2023 Patient encounter procedure 10/20/2023 3:00 PM EST Office Visit [facility] [address] [place] [id number] Sandra Cole MD [address] [facility], [facility] [address] [place] [address] [facility] Start: 09-09-2023 End: 09-09-2024 Immunoglobulins (IgG, IgA, IgM) Immunoglobulins (IgG, IgA, IgM) Lab Routine CVID (common variable immunodeficiency) (CMS/HCC) Expected: 09/09/2023 (Approximate), Expires: 09/09/2024 [facility] Service Area Work Phone: Comment on above: Expected: 09/09/2023 (Approximate), Expires: 09/09/2024 Start: 08-12-2023 End: 08-11-2024 CBC W Auto Differential panel - Blood CBC and Auto Differential Lab Routine Hypogammaglobulinemia (CMS/HCC) Expected: 08/12/2023 (Approximate), Expires: 08/11/2024 [facility] Service Area Work Phone: Comment on above: Expected: 08/12/2023 (Approximate), Expires: 08/11/2024 Start: 08-12-2023 End: 08-11-2024 Comprehensive metabolic 2000 panel - Serum or Plasma Comprehensive Metabolic Panel Lab Routine Hypogammaglobulinemia (CMS/HCC) Expected: 08/12/2023 (Approximate), Expires: 08/11/2024 [facility] Work Phone: Comment on above: Expected: 08/12/2023 (Approximate), Expires: 08/11/2024 Start: 08-12-2023 End: 08-11-2024 Lactate dehydrogenase [Enzymatic activity/volume] in Serum or Plasma by Lactate to pyruvate reaction Lactate dehydrogenase Lab Routine Hypogammaglobulinemia (CMS/HCC) Expected: 08/12/2023 (Approximate), Expires: 08/11/2024 [facility] Work Phone: Comment on above: Expected: 08/12/2023 (Approximate), Expires: 08/11/2024 Start: 08-09-2023 COVID-19 Vaccine (4 - Pfizer risk series) COVID-19 Vaccine (4 - Pfizer risk series) [facility] Start: 08-09-2023 COVID-19 Vaccine ( season) COVID-19 Vaccine ( season) [facility] Start: 08-09-2023 COVID-19 Vaccine ( season) COVID-19 Vaccine ( season) [facility] Start: 05-29-2023 FUV, Provider: Christopher Watkins, Status: Pen, Time: 12:50 PM FUV, Provider: Christopher Watkins, Status: Pen, Time: 12:50 PM [facility] 3 DO Work Phone: Start: 01-23-2023 FUV, Provider: Christopher Watkins, Status: Pen, Time: 11:10 AM FUV, Provider: Christopher Watkins, Status: Pen, Time: 11:10 AM [facility] DO Work Phone: Start: 01-21-2023 FUV, Provider: Christopher Watkins, Status: Pen, Time: 1:00 PM FUV, Provider: Christopher Watkins, Status: Pen, Time: 1:00 PM [facility] 250 DO Work Phone: Start: 12-23-2022 Lipid panel Lipid Panel [facility] Start: 07-02-2022 Diabetes mellitus screening Diabetes Screening [facility] Start: 03-12-2022 FUV, Provider: Christopher Watkins, Status: Pen, Time: 2:10 PM FUV, Provider: Christopher Watkins, Status: Pen, Time: 2:10 PM -[facility] 3 DO Work Phone: Start: 11-08-2021 FUV, Provider: Christopher Watkins, Status: Pen, Time: 10:00 AM FUV, Provider: Christopher Watkins, Status: Pen, Time: 10:00 AM ET-Syrqabzknx-Mgg [place] 2100 DO Work Phone: Start: 2020 RSV patient s and/or patients aged 60+ years (1 - 1-dose 60+ series) RSV patients and/or patients aged 60+ years (1 - 1-dose 60+ series) [facility] Start: 07-27-2019 Ultrasound Kidney Bilat eral UG-Rnjpdzsxx-Edgi man Work Phone: Start: 1982 DTaP/Tdap/Td Vaccine s (1 - Tdap) DTaP/Tdap/Td Vaccines (1 - Tdap) [facility] Start: 11-16-1979 Zoster Vaccines (1 o f 2) Zoster Vaccines (1 of 2) [facility] Start: 1966 Pneumococcal Vaccine : Pediatrics (0 to 5 Years) and At-Risk Patients (6 to 64 Years) (1 - PCV) Pneumococcal Vaccine: Pediatrics (0 to 5 Years) and At-Risk Patients (6 to 64 Years) (1 - PCV) [facility] Start: 1966 Pneumococcal Vaccine : Pediatrics (0 to 5 Years) and At-Risk Patients (6 to 64 Years) (1 of 2 - PCV) Pneumococcal Vaccine: Pediatrics (0 to 5 Years) and At-Risk Patients (6 to 64 Years) (1 of 2 - PCV) [facility] Start: 1960 HIV screening HIV Screening [facility] Start: 1960 Medicare Annual Wellness Visit Medicare Annual Wellness Visit (AWV) [facility] Start: 1960 Screening for malignant neoplasm of colon [facility] aPTT in Platelet poo r plasma by Coagulation assay [facility] Platelets [#/volume] in Blood [facility] QG-Dvtcdiyni-Ze id man Work Phone: [facility] NEGATED: Highlighted row has been ruled out! Planned Goals not documented MG-Neurolog y-Berto man Work Phone: Immunizations Immunization Date Immunization Notes Care Provider Fa cili 08-27-2022 Pfizer COVID-19 vaccine, bivalent, age 12 years and older (30 mcg/0.3 mL) Anirudh Sears MD Work Phone: [facility] Work Phone: 08-18-2022 influenza, injectabl e, quadrivalent, preservative free Anirudh Sears MD Work Phone: [facility] Work Phone: 01-01-2022 Pfizer Newman Cap SARS-CoV-2 Anirudh Sears MD Work Phone: [facility] Work Phone: 11-16-2020 Pfizer-BioNTech COVID-19 Vacc 30 MCG/0.3ML Intramuscular Suspension Nael Farias Work Phone: [facility] 3 DO Work Phone: 02-08-2020 measles, mumps and rubella virus vaccine Nael Farias Work Phone: [facility] 3 DO Work Phone: Payers Date Payer Category Payer Self-pay [id number] 2021 Medicare ANTH MEDICARE ANTH MEDICARE ADVANTAGE [id number] 2021-Present [address] [place] [address] [id number] 1960 Unknown [id number] 2.16.840.1.573050.3.579.2. 1069 1960 Unknown [id number] 2.16.840.1.416035.3.579.2. 1069 1960 Unknown [id number] 2.16.840.1.371974.3.579.2. 1069 1960 Unknown [id number] 2.16.840.1.643467.3.579.2. 593 1960 Unknown [id number] 2.16.840.1.513062.3.579.2. 593 1960 Unknown [id number] 2.16.840.1.805138.3.579.2. 593 1960 Unknown [id number] 2.16.840.1.801909.3.579.2. 593 1960 Unknown [id number] 2.16.840.1.787843.3.579.2. 593 1960 Unknown [id number] 2.16.840.1.597289.3.579.2. 593 1960 Unknown [id number] 2.16.840.1.993396.3.579.2. 593 1960 Unknown [id number] 2.16.840.1.812677.3.579.2. 593 1960 Unknown [id number] 2.16.840.1.662464.3.579.2. 1046 1960 Unknown [id number] 2.16.840.1.131224.3.579.2. 356 1960 Unknown [id number] 2.16.840.1.400134.3.579.2. 356 1960 Unknown [id number] 2.16.840.1.947705.3.579.2. 356 1960 Unknown [id number] 2.16.840.1.653574.3.579.2. 356 1960 Unknown [id number] 2.16.840.1.197288.3.579.2. 356 1960 Unknown [id number] 2.16.840.1.050482.3.579.2. 356 1960 Unknown [id number] 2.16.840.1.321481.3.579.2. 356 1960 Unknown [id number] 2.16.840.1.431608.3.579.2. 1244 1960 Unknown [id number] 2.16.840.1.962651.3.579.2. 1244 1960 Unknown [id number] 2.16.840.1.822202.3.579.2. 1244 1960 Unknown [id number] 2.16.840.1.848373.3.579.2. 1245 1960 Unknown [id number] 2.16.840.1.521394.3.579.2. 1245 1960 Unknown [id number] 2.16.840.1.461281.3.579.2. 1259 1960 Unknown [id number] 2.16.840.1.227386.3.579.2. 1259 1960 Unknown [id number] 2.16.840.1.120125.3.579.2. 1259 1960 Unknown [id number] 2.16.840.1.063457.3.579.2. 1259 1960 Unknown [id number] 2.16.840.1.662729.3.579.2. 1259 1960 Unknown [id number] 2.16.840.1.282381.3.579.2. 1259 1960 Unknown [id number] 2.16.840.1.337437.3.579.2. 1259 1960 Unknown [id number] 2.16.840.1.593073.3.579.2. 1259 1960 Unknown [id number] 2.16.840.1.983406.3.579.2. 1259 1959 Medicare [id number] Private Health Insurance [facility] [id number] Unknown Unknown MMO [id number] Unknown [place] [id number] Unknown [id number] 2.16.840.1.438571.3.579.2. 531 Social History Date Type Detail Facility Start: 08-13-2023 End: 01-05-2024 Never a smoker Never a smoker HF-Adzhvjmahw-Njxwog k e 2100 DO Work Phone: Start: 1960 Sex Assigned At Male [facility] Start: 06-13-2022 End: 08-13-2023 Tobacco smoking status NHIS Never smoked tobacco [facility] History of tobacco use Passive smoker [facility] Work Phone: Start: 08-13-2023 Tobacco use and exposure Smokeless tobacco non-user [facility] Work Phone: Start: 08-13-2023 End: 01-05-2024 Alcohol intake Lifetime non-drinker (finding) [facility] Work Phone: Start: 08-13-2023 End: 01-05-2024 Tobacco use panel [facility] Work Phone: Start: 1960 Sex Assigned At Not on file [facility] Work Phone: Start: 08-03-2023 End: 01-05-2024 Exposure to SARS-CoV-2 (event) Not sure [facility] NEGATED: Highlighted row - - TZ-Stnmvuglsyqtw-[place] [address] Work Phone: Functional Status Date Assessment Result Facility NEGATED: Highlighted row Functional performance Functional status health issues are not documented Disease SI-Betyryltfedsw-Dq [place] [address] Work Phone: Mental Status Date Assessment Result Facility NEGATED: Highlighted row Cognitive function [Interpretation] Cognitive status health issues are not documented Disease NA-Cgsdsenapnoaf-Rx sofie Merino Work Phone: Clinical Notes 09-06-2020 to 01-05-2024 Assessment & Plan Note - Carolyn Dormanpam - 01/05/2024 11:13 AM EDTAssessment & Plan Note - Carolyn Dormanpam - 01/05/2024 11:13 AM EDTSandra Cole MD - 01/05/2024 10:45 AM EDT Note Date & Type Note Facility 01-05-2024 Evaluation + Plan note Associated Problem(s): Asthma ([facility]) ACT is 19. Sx are controlled currently. This situation is out of control. We received a call from his insurance company stating that the Wixela was not covered. Therefore they requested that we change it to Breo. We change the prescription to Breo and notify the patient. He then received both the Wixela and the Breo. The insurance will not take the Breo back because it has been shipped to him. Unfortunately insurance company did not notify that they were going to ship it to him. He will finish out the Wixela that he currently has. I explained to him that the Breo is somewhat interchangeable and he can use the Breo that he was dispensed. He is to take that 1 inhalation 1 time a day. Nonetheless, the Wixela will be less expensive so upon completion of the Breo he will restart Wixela. I would like to see him back in 6 months [facility] Work Phone: 01-05-2024 Miscellaneous Notes Associated Problem(s): Asthma ([facility]) ACT is 19. Sx are controlled currently. This situation is out of control. We received a call from his insurance company stating that the Wixela was not covered. Therefore they requested that we change it to Breo. We change the prescription to Breo and notify the patient. He then received both the Wixela and the Breo. The insurance will not take the Breo back because it has been shipped to him. Unfortunately insurance company did not notify that they were going to ship it to him. He will finish out the Wixela that he currently has. I explained to him that the Breo is somewhat interchangeable and he can use the Breo that he was dispensed. He is to take that 1 inhalation 1 time a day. Nonetheless, the Wixela will be less expensive so upon completion of the Breo he will restart Wixela. I would like to see him back in 6 months Associated Problem(s): CVID (common variable immunodeficiency) (Multi) Infusions are going well with Tylenol pretreatment. I think pre and post IV hydration would be beneficial. Unfortunately due to insurance constraints the cost is out of control. Therefore, the patient is willing to suffer with the side effects. Is a very unfortunate situation for the patient. Continue Gammagard infusions at [facility]. He will maintain his current dose. His last level in October 2023 was a little low at 699. Nonetheless, the patient has not had any infections and therefore we will not increase his dose at this time. I would like to check it in 3 months time. documented in this encounter [facility] Work Phone: 01-05-2024 Evaluation + Plan note Associated Problem(s): CVID (common variable immunodeficiency) (Multi) Infusions are going well with Tylenol pretreatment. I think pre and post IV hydration would be beneficial. Unfortunately due to insurance constraints the cost is out of control. Therefore, the patient is willing to suffer with the side effects. Is a very unfortunate situation for the patient. Continue Gammagard infusions at [facility]. He will maintain his current dose. His last level in October 2023 was a little low at 699. Nonetheless, the patient has not had any infections and therefore we will not increase his dose at this time. I would like to check it in 3 months time. [facility] Work Phone: 01-05-2024 History of Presen t illness Narrative Subjective Katerina Danielle is a 63 y.o. male who presents for Immunodeficiency. Chief Complaint Patient presents with Immunodeficiency Since last visit, 12-20-22, patient states his infusions at [facility] are going well but pays over $700 a month. He will have a mild headache and intermittent dizziness. He takes Tylenol prior to infusions. He does not want to add IV hydration before or after his infusions due to the extra cost and time. He has not been ill despite his family being sick and his being sick over the weekend. He is up to date on his COVID vaccines. Patient endorses persistent issues with coverage for his Wixela. He received a new Rx 11-10-23, which was a generic that cost $42.00 a month. He then received Breo Ellipta 200/25 for 90 days for $84.00 in the mail. He called but was never told why they shipped it to him. He told them he would return it but they told him they could not take it back. He also was told the office has to DC the Breo. He is asking if he should just use it since they will not take it back. Patient states he saw Neurology who prescribed gabapentin, which works well for him. Objective Pulse 72 Wt 120 kg (264 lb) SpO2 96% BMI 35.80 kg/m Physical Exam Constitutional: Appearance: Normal appearance. HENT: Head: Normocephalic and atraumatic. Right Ear: External ear normal. There is no impacted cerumen. Left Ear: External ear normal. There is no impacted cerumen. Nose: No congestion or rhinorrhea. Eyes: Extraocular Movements: Extraocular movements intact. Conjunctiva/sclera: Conjunctivae normal. Pupils: Pupils are equal, round, and reactive to light. Cardiovascular: Rate and Rhythm: Normal rate and regular rhythm. Heart sounds: No murmur heard. No friction rub. No gallop. Pulmonary: Effort: No respiratory distress. Breath sounds: No wheezing, rhonchi or rales. Skin: General: Skin is warm and dry. Neurological: Mental Status: He is alert. Psychiatric: Mood and Affect: Mood normal. Behavior: Behavior normal. Assessment/Plan CVID (common variable immunodeficiency) (Multi) Infusions are going well with Tylenol pretreatment. I think pre and post IV hydration would be beneficial. Unfortunately due to insurance constraints the cost is out of control. Therefore, the patient is willing to suffer with the side effects. Is a very unfortunate situation for the patient. Continue Gammagard infusions at [facility]. He will maintain his current dose. His last level in October 2023 was a little low at 699. Nonetheless, the patient has not had any infections and therefore we will not increase his dose at this time. I would like to check it in 3 months time. Asthma ([facility]) ACT is 19. Sx are controlled currently. This situation is out of control. We received a call from his insurance company stating that the Wixela was not covered. Therefore they requested that we change it to Breo. We change the prescription to Breo and notify the patient. He then received both the Wixela and the Breo. The insurance will not take the Breo back because it has been shipped to him. Unfortunately insurance company did not notify that they were going to ship it to him. He will finish out the Wixela that he currently has. I explained to him that the Breo is somewhat interchangeable and he can use the Breo that he was dispensed. He is to take that 1 inhalation 1 time a day. Nonetheless, the Wixela will be less expensive so upon completion of the Breo he will restart Wixela. I would like to see him back in 6 months By signing my name below, I, Ronny [...] plan. documented in this encounter [facility] Work Phone: 01-05-2024 Instructions Carolyn Morrison - 01/05/2024 10:45 AM EDT Continue Wixela or Breo one inhalation one time a day. Continue Gammagard infusions at [facility] as scheduled. Follow up in 6 months or sooner if symptoms worsen prior. documented in this encounter [facility] Work Phone: 09-10-2023 Evaluation + Plan note Associated Problem(s): Asthma Patient states the cost of his Arnuity went up dramatically this year. He is unable to afford the $42 a month co-pay. Therefore, I am going to try to change him to a lower cost inhaler. I am also going to ask my staff to send him co-pay assistance through [employer]. According to the patient his primary care recommended albuterol 2 inhalations twice a day as a maintenance and then every 4 hours as needed, but I am concerned about him developing tolerance to the albuterol and not having his underlying inflammation treated with a maintenance medication. Therefore I am going to attempt to get a covered inhaled corticosteroid for maintenance. [facility] [place] Work Phone: 09-10-2023 Miscellaneous Notes Associated Problem(s): Asthma Patient states the cost of his Arnuity went up dramatically this year. He is unable to afford the $42 a month co-pay. Therefore, I am going to try to change him to a lower cost inhaler. I am also going to ask my staff to send him co-pay assistance through [employer]. According to the patient his primary care [...] maintenance. Associated Problem(s): CVID (common variable immunodeficiency) ([facility]) Unfortunately, this is an insurance nightmare. His benefits have changed. I am going to ask my staff to look into what the actual issue is. He is willing to go to IVIG monthly which is probably his best bet. Unfortunately he does live some distance away. We will try to coordinate care with [facility]. Due to his kidney disease I do not really feel that IV is the best option, but under the circumstances IV is better than nothing. documented in this encounter [facility] [place] Work Phone: 09-10-2023 Evaluation + Plan note Associated Problem(s): CVID (common variable immunodeficiency) ([facility]) Unfortunately, this is an insurance nightmare. His benefits have changed. I am going to ask my staff to look into what the actual issue is. He is willing to go to IVIG monthly which is probably his best bet. Unfortunately he does live some distance away. We will try to coordinate care with [facility]. Due to his kidney disease I do not really feel that IV is the best option, but under the circumstances IV is better than nothing. [facility] [place] Work Phone: 09-09-2023 History of Presen t [...] him 08/12/2023 that he was switched to [facility] who never contacted him despite him calling [...] Patient did test positive for COVID at [facility] and again on 08/27/2023. He and [...] Judgment normal. Assessment/Plan CVID (common variable immunodeficiency) ([facility]) Unfortunately, this is an insurance nightmare. His benefits have changed. I am going to ask my staff to look into what the actual issue is. He is willing to go to IVIG monthly which is probably his best bet. Unfortunately he does live some distance away. We will try to coordinate care with [facility]. Due to his kidney disease I do [...] staff to send him co-pay assistance through [employer]. According to the patient his primary care [...] maintenance. By signing my name below, I, Carolyn Morrison Scribe, attest that this documentation has been prepared [...] plan. documented in this encounter [facility] [place] Work Phone: 09-09-2023 Instructions Carolyn Morrison - 09/09/2023 5:15 PM EST Obtain blood work to check IgG, IgA and IgM levels. We will call you with results, recommendations and followup plan. Compare QVAR to Arnuity. Use albuterol only as needed. I will let you know what our plan is for your infusions. documented in this encounter [facility] [place] Work Phone: 08-13-2023 History of Presen t [...] referred to Dr. Rodriguez in oncology at [facility] for evaluation. 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 Bone marrow biopsy was done which was negative for involvement with lymphoma . He also underwent an LP with low yield. Because of his meningeal enhancement and location close to DRY CHAIN OFFBEARER, he was treated with hyperCVAD-MA. He received [...] was compared to this patient's previous biopsy ([id number]). The previous biopsy demonstrated areas of necrosis [...] TP53 mutations. The patient was enrolled on [id number], Venetoclax+RICE. Cycle 1 started 10/29/17. Had tumor [...] pneumonitis. The patient was recently readmitted to [facility] (06/16-06/18/18) for fever and PNA. 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 He completed by mouth Levaquin. The patient was admitted to [facility] (08/18-08/21/18) with a new PE. He was [...] CAR T Cell infusion 01/04/19 with tisagenlecleucel ([facility]) with preparative regimen of fludarabine and cytoxan. [...] Labs/Imaging/Pathology: personally reviewed reports and images in [employer] [facility] [employer] electronic medical record system. Pertinent results as it related to the plan represented in below in assessment and plan. Assessment/Plan 1. 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 The patient had PET scan 11/06/18 that showed POD. - CAR T Cell therapy: Cells given 01/04/19. Treated with tisagenlecleucel ([employer]). Preparative regimen includes Fludarabine and Cyclophosphamide 08/13/23: [...] could benefit from further evaluation with another machine joint cutter. Patient will consider 6. Hypogammaglobulinemia: - Restarted [...] This note has been transcribed using a director medical science and there is a possibility of unintentional typing misprints. Diagnoses and all orders for this visit: Hypogammaglobulinemia (CMS/HCC) - CBC and Auto Differential; Future - Comprehensive Metabolic Panel; Future - Lactate dehydrogenase; Future - Clinic Appointment Request Follow up; Future Anirudh Sears MD Hematology/Oncology [facility] Scribe Attestation By signing my name below, Bernarda Cole Scribe attest that this documentation has been prepared under the direction and in the presence of Anirudh Sears MD. documented in this encounter [facility] [place] Work Phone: 02-20-2023 History of Presen t [...] of IV drug abuse, recent trauma. -Pain Management-[facility] Work Phone: 02-20-2023 History of Presen t [...] history of IV drug abuse, recent trauma. [facility] Work Phone: 02-20-2023 History of Presen [...] history of IV drug abuse, recent trauma. [facility] Work Phone: 12-28-2021 History of Presen t [...] that point, PCP referred patient to a Screen Printing Equipment Setter at [facility].He saw Nohelia Machado DO, Screen Printing Equipment Setter at [facility], did a breathing test and ordered [...] he does have bloating and tenderness after. HB-Cnlakqheyn-Xuabpvxp 2100 DO Work Phone: 12-28-2021 History of [...] that point, PCP referred patient to a Screen Printing Equipment Setter at [facility].He saw Nohelia Machado DO, Screen Printing Equipment Setter at [facility], did a breathing test and ordered [...] he does have bloating and tenderness after. BP-Fajnmdxqce-Drmesruu 2100 DO Work Phone: 05-21-2021 History of [...] will have his second COVID booster Friday.. XJ-Vcoewitgxl-Dgiermtu 2100 DO Work Phone: 05-21-2021 History of [...] will have his second COVID booster Friday.. PY-Hmdrubcoom-Pbfctddy 8658 DO Work Phone: 09-06-2020 History of Presen t illness Narrative Since last visit, 09/06/2020, patient reportsHe had his labs done at [facility] 2 weeks ago and he requested results [...] be a large B cell lymphoma S/P. GV-Triyqdlxeh-Yjhtgkdw 2100 DO Work Phone: Evaluation note No assessment inform ation available [facility] Work Phone: Evaluation note Diagnosis Hypogammaglobulinemia (CMS/HCC) Unspecified hypogammaglobulinemia documented in this encounter [facility] [place] Work Phone: Evaluation note* Diagnosis Hypogammaglobulinemia (CMS/HCC)- Primary Unspecified hypogammaglobulinemia CVID (common variable immunodeficiency) ([facility]/HCC) Common variable immunodeficiency documented in this encounter [facility] [place] Work Phone: Evaluation note* Diagnosis Stage 3b chronic kidney disease (CMS/HCC)- Primary Essential hypertension Unspecified essential hypertension Hyperparathyroidism, secondary ([facility]/HCC) documented in this encounter [facility] [place] Work Phone: Evaluation note* Diagnosis Asthma, unspecified asthma severity, unspecified whether complicated, unspecified whether persistent ([facility]-HCC)- Primary CVID (common variable immunodeficiency) (Multi) Common variable immunodeficiency documented in this encounter [facility] [place] Work Phone: Evaluation note* Diagnosis Onset Date Resolution Status B-cell lymphoma acute DDD (degenerative disc disease), cervical acute Muscle spasm acute Other chronic pain acute [facility] Work Phone: History of Present illness NarrativeThe [...] is currently asymptomatic. No associated symptoms are reported.-[facility] 3 DO Work Phone: History of Present [...] is currently asymptomatic. No associated symptoms are reported.-[facility] 3 DO Work Phone: History of Present illness Narrative* Christopher Watkins MD - 12/05/2023 10:10 AM EDT Katerina Cory Carneylexie 63 y.o. @WT@ N/Room: [id number]/Room/bed info not found Subjective: The patient is being seen for a routine clinic follow-up of chronic kidney disease. Recently, the disease has been stable. Disease complications: No hyperkalemia, no hypocalcemia, no hyperphosphatemia, no metabolic acidosis, no coagulopathy, no uremic encephalopathy, no neuropathy and no renal osteo dystrophy. The patient is currently asymptomatic. No associated symptoms are reported. Meds: Current Outpatient Medications Medication Sig Dispense Refill albuterol 0.63 mg/3 mL nebulizer solution Inhale. artificial tears, dpwspbi-kgvusru-diqhznao, 0.1-0.3-0.2 % ophthalmic solution Administer into affected eye(s) 4 times a day as needed. baclofen (Lioresal) 10 mg tablet Take 1 tablet (10 mg) by mouth 2 times a day. calcitriol (Rocaltrol) 0.25 mcg capsule Take by mouth. cetirizine (ZyrTEC) 10 mg tablet Take 1 tablet (10 mg) by mouth once daily. cholecalciferol (Vitamin D3) 50 MCG (2000 UT) tablet Take 1 tablet (50 mcg) by mouth once daily. diphenhydrAMINE (Benadryl Allergy) 25 mg tablet Take by mouth. fluticasone propion/salmeterol (WIX[employer]A INHUB INHL) Inhale. gabapentin (Neurontin) 300 mg capsule Take by mouth. immune globulin, human, (Gammagard Liquid) infusion Infuse 400 mL (40 g) into a venous catheter every 30 (thirty) days. 400 mL 11 magnesium 200 mg tablet Take 1 tablet (200 mg) by mouth. magnesium gluconate 12.5 mg magne- sium (250 mg) tablet every 12 hours. omeprazole (PriLOSEC) [address] capsule Take by mouth once daily. ondansetron (Zofran) 8 mg tablet Take by mouth every 8 hours if needed. oxyCODONE (Roxicodone) 5 mg immediate release tablet Take by mouth every 4 hours if needed. potassium citrate 99 mg capsule Take 1 tablet by mouth once daily. valsartan (Diovan) 80 mg tablet Take 1 tablet daily 90 tablet 0 ZINC CITRATE ORAL Take by mouth. No current facility-administered medications for this visit. ROS: The patient is awake and oriented. No dizziness or lightheadedness. No chills and no fever. No headaches. No nausea and no vomiting. No shortness of breath. No cough. No sputum. No chest pain. No chest tightness. No abdominal pain. No diarrhea and no constipation. No hematemesis or hemoptysis. No hematuria. No rectal bleeding. No melena. No epistaxis. No urinary symptoms. No flank pain. No leg edema. No leg pain. No weakness. No itching. Overall, the rest of the review of systems is also negative. 12 point review of systems otherwise negative as stated in HPI. Physical Examination: Vitals: 12/05/23 0953 BP: 128/84 Pulse: 62 General: The patient is awake, oriented, and is not in any distress. Head and Neck: Normocephalic. No periorbital edema. Eyes: non-icteric Respiratory: Symmetric air entry. Symmetric chest expansion.No respiratory distress. Cardiovascular: Symmetric peripheral pulses. Skin: No maculopapular rash. Abdomen: soft, nt/nd Musculoskeletal: No peripheral edema in both left and right upper extremities. No edema in either left or right lower extremities. Neuro Exam: Speech is fluent. Moves extremities. Imaging: === 07/27/19 === US RENAL COMPLETE - Impression - No hydronephrosis or suspicious renal masses or obstructing stones Blood Labs: No results found for this or any previous visit (from the past 24 hour(s)). Lab Results Component Value Date PTH 65.5 11/09/2020 PROTUR 61 (H) 07/27/2019 PROTUR 30 (1+) (A) 07/27/2019 PHOS 4.1 11/09/2020 Lab Results Component Value Date GLUCOSE CANCELED 01/21/2023 CALCIUM CANCELED 01/21/2023 NA CANCELED 01/21/2023 K CANCELED 01/21/2023 CO2 CANCELED 01/21/2023 CL CANCELED 01/21/2023 BUN CANCELED 01/21/2023 CREATININE CANCELED 01/21/2023 Assessment and Plan: 1- CKD III: His Cr level is 1.78. Stable kidney function. He has history of lymphoma with multiple relapses. He had multiple exposures to iv contrast over the past few years. He had a CAR-T treatmentback in December 2018. He is getting IVIG. Last spot urine protein to creatinine ratio did not show significant proteinuria. Volume status is good. His blood pressure is good. 2- Secondary hyperparathyroidism: He is on calcitriol. PTH level will be checked before the next appointment. I will see him in about 6 months for follow-up. Christopher Watkins MD Senior Attending Physician Director of Onco-Nephrology Program Division of Nephrology & Hypertension [facility] documented in this [facility] Work Phone: Family History No Family History Records Found Grandparent Name Dates Details Family history of [...] Disease of spine Unknown Multiple myeloma Unknown Relationship Condition Age at Onset Recorded Date/T osvaldo father Heart disease Unknown Diabetes mellitus Unknown Malignant neoplasm of prostate Unknown Disease of circulatory system Unknown Pulmonary emphysema Unknown mother Alzheimer's disease Unknown grandparent Malignant neoplasm Unknown grandparent Alzheimer's disease Unknown sister Malignant neoplasm of ovary Unknown brother Heart disease Unknown Disease of spine Unknown Multiple myeloma Unknown Summary Purpose Advance Directives No Advanced Directives Records Found Advance Directive Response Recorded Date/ Time Advance Directives No November 07 3:47pm Chief Complaint FUV for immunoglobin deficiencyPT [...] and Reason for Visit Chief Complaint Screening Chief Complaint C85.18 M62.838 R53.1 Chief Complaint C85.18 M62.[address] NADEEM MORRISON Reason for Visit B-cell lymphoma DDD (degenerative disc disease), cervical Muscle spasm Other chronic pain Additional Source Comments (unrecognized sect ion and content) No Status Records FoundNo Status Records FoundNo Status Records FoundNo Status Records FoundNo Status Records FoundNo Status Records FoundNo Status Records FoundNo Status Records FoundNo Status Records FoundNo Status Records Found INFORMATION SOURCE (unrecogn ized section and content) DATE CREATED AUTHOR 01/25/2020 [facility] DATE CREATED AUTHOR AUTHOR'S ORGANIZ ATION 08/22/2022 [facility] DATE CREATED AUTHOR AUTHOR'S ORGANIZ ATION 01/09/2023 [facility] DATE CREATED AUTHOR AUTHOR'S ORGANIZ ATION 02/22/2023 [facility] DATE CREATED AUTHOR AUTHOR'S ORGANIZ ATION 06/05/2023 [facility] DATE CREATED AUTHOR AUTHOR'S ORGANIZ ATION 06/05/2023 [employer] DATE CREATED AUTHOR AUTHOR'S ORGANIZ ATION 01/09/2024 [facility] DATE CREATED AUTHOR AUTHOR'S ORGANIZ ATION 04/22/2024 [facility] DATE CREATED AUTHOR AUTHOR'S ORGANIZ ATION 05/01/2024 [facility] DATE CREATED AUTHOR AUTHOR'S ORGANIZ ATION 05/27/2024 [facility] [employer] Care Teams (unrecognized sec tion and content) Team Status: Active Member Role Status Dates Nael Farias MD 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 Provider Active Team Status: Inactive Member Role Status Dates Nael Farias MD 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 Provider Active Start: April 15, 2024 End: April 15, 2024 Nadeem Morrison DO Attending Provider Active Start: April 15, 2024 End: April 15, 2024 Team Status: Inactive Member Role Status Dates Nael Farias MD 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 Provider Active Victor Hugo Farrell MD Attending Provider Active 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 Start Date End Date Nael Farias MD [address] [place] [phone] PCP - General 06/18/18 Anirudh Sears MD [address] [place] [address] [address] [place] [address] Consulting Physician Hematology and Oncology 08/13/23 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 Start Date End Date Nael Farias MD [address] [place] [phone] PCP - General 06/18/18 Anirudh Sears MD [address] [place] [address] [address] [place] [address] Consulting Physician Hematology and Oncology 08/13/23 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 Start Date End Date Nael Farias MD [address] [phone] PCP - General 06/18/18 Anirudh Sears MD [address] [place] [address] [address] [place] [address] Consulting Physician Hematology and Oncology 08/13/23 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 Start Date End Date Nael Farias MD [address] [place] [phone] PCP - General 06/18/18 Anirudh Sears MD [address] [place] [address] [address] [place] [address] Consulting Physician Hematology and Oncology 08/13/23 Christopher Watkins MD [address] [place] [address] [address] [place] [address] Consulting Physician Nephrology 12/08/23 Team Status: Inactive Member Role Status Dates Nael Farias MD 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 Provider Active Start: May 19, 2024 End: May 19, 2024 Elia Malik MD Attending Provider Active Sta rt: May 19, 2024 End: May 19, 2024 Nadeem Morrison DO Referring Provider Active Start: May 19, 2024 End: May 19, 2024 Goals (unrecognized section and content) Goals may be documented in a n alternate sectionGoals may be documented in an alternate sectionGoals may be documented in an alternate sectionGoals may be documented in an alternate section Reason for Visit (unrecogniz ed section and content) Reason Comments Follow-up Reason Comments Follow-up Immunotherapy Would like to discus s new medication Reason Comments Immunodeficiency FOR RECORDS PERTAINING TO PATIENTS WHO ARE [...] BE BASED ON THE PRIMARY CLINICAL RECORDS. [facility] [employer] provides no warranty or guarantee of the accuracy or completeness of information in this document.
[2024-06-02 10:10] LABS: Anion Gap 13.2; BUN Creatinine Ratio 14.3; Calcium 9.5 mg/dL (8.5-10.1); Chloride 104 mmol/L (98-107); Estimated GFR (African America 42 (>=60 mL/min/1.73m^2); Estimated GFR (Non-African Ame 35 (>=60 mL/min/1.73m^2); Glucose 106 mg/dL (74-106); Potassium 4.2 mmol/L (3.5-5.1); Sodium 140 mmol/L (136-145)
[2024-06-03 12:10] LABS: PTH, Intact 22 pg/mL (15-65)
== END 2024-06-02 08:54 | disposition home or self-care (01) ==
LOC: LAB 09:01
PROVIDERS: PCP Family Medicine; Visit Provider Internal Medicine
DX: C85.10 Unspecified B-cell lymphoma, unspecified site (principal); N18.30 Chronic kidney disease, stage 3 unspecified; N25.81 Secondary hyperparathyroidism of renal origin; I12.9 Hypertensive chronic kidney disease with stage 1 through stage 4 chronic kidney disease, or unspecified chronic kidney disease
CPT/HCPCS: 80048; 83970; 85025; 85610

== ENCOUNTER 2024-06-02 09:09 | Outpatient (OUT) | payer MEDICARE, SELFPAY ==
--- OUTSIDE RECORDS SUMMARY | 2024-06-02 09:33 | XMS_ITS | CCD ---
Author Organization [facility] CliniSyor Care Team Providers Care Well Logging Captain Mud Analysis Name Role Phone Chritsopher Watkins Unavailable Unavailable Nael Farias Unavailable Unavailable Nael Farias Unavailable Unavailable Unavailable MD Nael Farias 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 Provider MD Victor Hugo Farrell Attending Provider Andrea, [...] DR GARCIA 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 Unavailable MISC, DR MATTHWE Consulting Unavailable MISC, DR MATTHEW Attending Unavailable [...] Clark Attending Unavailable Hemeyer, Dr. Nael Brand [facility] Unava ilable Sears, Anirudh C Admitting Unavailable Sears, Anirudh C Attending Unavailable Hemeyer, Dr. Nael Brand [facility] Unava ilable Sears, Anirudh C Admitting Unavailable Sears, Anirudh C Attending Unavailable Hemeevelyn, Dr. Nael Brand [facility] Unava ilable Stephanieyer, Dr. Nael Brand [facility] Unava ilable Neha, Dr. White Attending Unavailable Neha, Dr. White Referring Unavailable Hemeyer, Dr. Nael Brand [facility] Unava ilable Neha, Dr. White Attending Unavailable Neha, Dr. White Referring Unavailable Hemeyer, Dr. Nael Brand [facility] Unava ilable Neha, Dr. White Attending Unavailable Neha, Dr. White Referring Unavailable Hemeyer, Dr. Nael Brand [facility] Unava ilable Stephanieyer, Dr. Nael Brand Referring Unava ilable Kelsey, Dr. Sandra Lopez Attending Unav ailable Hemeyer, Dr. Nael Brand [facility] Unava ilable Sears, Anirudh C Attending Unavailable Sears, Anirudh C Admitting Unavailable Hemeyer Nael GRACE 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 Provider Orion GRACE, Anirudh Katina Unavailable Christopher Watkins MD Unavailable SANDRA COLE Attending Unavailable NAEL FARIAS [facility] Unavailab CHRISTOPHER Marcial Attending Unavailable NAEL FARIAS [facility] Unavailab SANDRA Rowley Attending Unavailable NAEL FARIAS [facility] Unavailab MD Nael Garcia 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 Provider [phone] DO Nadeem Morrison Attending Provider Nael Farias [...] Translations: [dapsone] Drug Allergy 06-13-20 22 Rash [facility] (20 sources) Prochlorperazine; Translations: [Compazine] Drug Allergy The [facility] (20 sources) Sulfamethoxazole / Trimethoprim; Translations: [Bactrim DS TABS] Drug Allergy 08-04-20 23 Hives, Itching, Rash -Ophthalmol [facility] B102 Work Phone: (19 sources) voriconazole; Translations: [voriconazole] Drug Allergy 08-04-20 23 Other -[facility] 3 DO Work Phone: (1 source) Penicillins Allergy to substance 12-04-19 18 Unknown Reaction [facility] (11 sources) Prochlorperazine; Translations: [PROCHLORPERAZINE] Drug Allergy 12-04-19 18 Other, Shortness of breath [facility] (5 sources) Sulfamethoxazole; Translations: [sulfamethoxazole] Drug Allergy 12-04-19 18 Unknown Reaction [facility] (8 sources) Trimethoprim; Translations: [TRIMETHOPRIM] Drug Allergy 12-04-19 18 Other [facility] (1 source) Capsaicin Drug Allergy The [facility] (1 source) Sulfamethoxazole / Trimethoprim Drug Allergy The [facility] (3 sources) Capsaicin; Translations: [CAPSAICIN] Drug Allergy 01-05-20 24 Diarrhea [facility] (2 sources) Sulfamethoxazole / Trimethoprim; Translations: [SULFAMETHOXAZOLE-TR IMETHOPRIM] Drug Allergy 08-04-20 23 [facility] 3 Repository Medications Current Medications Medication Drug Class(es) Dates Sig (Normalized) Sig (Original) breath-actuated 120 actuat beclomethasone dipropionate 0.08 mg/actuat metered dose inhaler (1 source) Corticosteroid Start: 09-09-2023 End: 09-08-2024 beclomethasone dipropionate (Qvar) 80 mcg/actuation inhaler Indications: CVID (common variable immunodeficiency) (CMS/HCC) Inhale 2 Inhalations 2 times a day. Rinse mouth out after inhalation. 10.6 g 3 09/09/2023 09/08/2024 Active calcitriol 0.75216 mg oral capsule (20 sources) Vitamin D3 [...] Active Start: 07-28-2019 take 1 capsule by [facility] every other day Calcitriol 0.25 [...] mg/ml ophthalmic solution (4 sources) Plasma Volume Air Vice Marshal, Non-Standardized Chemical Allergen Start: 02-27-2019 artificial tears, zokwgej-cmxlboe-hoefunju, 0.1-0.3-0.2 % ophthalmic solution Administer into affected [...] severity, unspecified whether complicated, unspecified whether persistent ([facility]-H[facility]) Inhale 1 puff once daily. 3 each [...] 01-04-2024 take 1 capsule by mo [facility] twice daily gabapentin (Neurontin) 100 mg capsule [...] 2017 12:00am June 13, 2022 8:53am ergocalciferol 37568 unt oral capsule (5 sources) Provitamin D2 Compound Vitamin D (Ergocalci ferol) 1.25 MG (19312 UT) Oral Capsule Refills: 0 DO Active Vitamin D (Ergoc alciferol) 38466 UNIT Oral Capsule Refills: 0 Active fluconazole [...] (20 sources) Graft versus host disease; Translations: [Njrgc-xgwcrt-ttcx disease, unspecified] Chronic Deficiency and other anemia [...] CREon 04-15-2024 ISTAT GFR 36.811 Normal [facility] Comment on above: Result Comment: PERF ORMED BY: [address] [address] PATHOLOGIST NEUROPSYCHIATRIC AIDE BRIAN BALL M.D. Performed By: #### I SCRE #### [address] MR cervical spine wo/w conon 04-15-2024 MR cervical spine wo/w con [facility] [place] [address] [place] [address] MRI Report Signed Patient: Katerina Danielle MR#: [id number] 0 : 1960 Acct:[id number] Age/Sex: 63 / M ADM Date: 04/15/24 Loc: MR Room: Type: [facility] CLI Attending Dr: Nadeem Morrison DO Copies [...] Sorin Shah M.D.04/15/2024 10:18 PM Dictation Location: [facility]--13 Transcribed By: COURT 04/15/242217 Dictated By: Sorin Shah II, MD 04/15/242210 Signed By: 04/15/242217 Normal [facility] MR head/brain wo/w conon MR head/brain wo/w con [facility] [place] [address] [place] [address] MRI Report Signed Patient: Katerina Danielle MR#: [id number] 0 : 1960 Acct:[id number] Age/Sex: 63 / M ADM Date: 04/15/24 Loc: MR Room: Type: [facility] Attending Dr: Nadeem Morrison DO Copies to: [...] Sorin Shah M.D.04/15/2024 10:23 PM Dictation Location: [place] [address] Transcribed By: [facility] 04/15/242222 Dictated By: Sorin Shah II, MD 04/15/242217 Signed By: 04/15/242222 Normal [facility] No Panel InformationOrdered By: Nadeem Morrison on 04-15-2024 Bedside Estimated GFR (eGFR) 36.811 [facility] Whole blood creatinine measu rementOrdered By: Nadeem Morrison on 04-15-2024 Creatinine [Mass/Vol] 2.0 mg/dL High 0.6-1.[address] [facility] Comment on above: ER/ESD physician is notified/shown all ISTAT results.Critical values may be confirmed by laboratory testing ifdeemed necessary by ER attending doctor. Result Comment: ER/E SD physician is notified/shown all ISTAT results. Critical values may be confirmed by laboratory testing if deemed necessary by ER attending doctor. Performed By: #### I SCRE #### [facility] [address] [place] [address] Office Visit (Onco-Nephrolog y - Established)on 05-29-2023 Follow-up visit Diagnoses/Problems Benign essential HTN (401.1) (I10) CKD (chronic kidney disease), stage III (585.3) (N18.30) Hyperparathyroidism, secondary (588.81) (N25.81) Orders Benign essential HTN, CKD (chronic kidney disease), stage III, Hyperparathyroidism, secondary Basic Metabolic Panel; Status:Active; Requested for:17Fxs4835; Parathormone Intact, Serum; Status:Active; Requested for:09Pqf3340; Provider Impressions 1- CKD III: His Cr [...] minutes prior (more content not included)... Normal [facility] Phone Note - Heme Onc-appoin tment question - 04/29/23 [facility] 04-28-2023 Phone Note - Heme Onc-appointment question - 04/29/23 appt Phone Call Information: Patient Demographics: Name: KATERINA DANIELLE Date: 1960 Address: [address] [place] [address] Date and Time: 28-Apr-2023 09:18 Caller Information: call from Call From: patient Primary Phone Number: [phone] Reason for Call: Reason for Callappointment question, [...] 09:34 by Tea Oro (N MGR) Normal [facility] Phone Note - Heme Onc-test r jose martinon 04-15-2023 Phone Note - Heme Onc-test results Phone Call Information: Patient Demographics: Name: KATERINA DANIELLE Date: 1960 Address: [address] [place] [address] Date and Time: 15-Apr-2023 14:56 Caller Information: call from Call From: patient Primary Phone Number: [phone] Reason for Call: Reason for Calltest results Message: Message: Calling to see if Dr. Sears had time to see results from labs on Friday His PCP really didn't find anything wrong and wants to order a CT. Patient would like to know Dr. Sears's thoughts first before continuing with this. Should have come from [place]. Team Communication: Team Communications: I spoke Katerina [...] 15-Apr-2023 15:30 by Zofia Smith (KLEVER) Normal [facility] Phone Note - Heme Onc-pain - Pain/tenderness in abdomenon 04-08-2023 Phone Note - Heme Onc-pain - Pain/tenderness in abdomen Phone Call Information: Patient Demographics: Name: KATERINA DANIELLE Date: 1960 Address: [address] [place] [address] Date and Time: 08-Apr-2023 09:26 Caller Information: call from Call From: patient Primary Phone Number: [phone] Reason for Call: Reason for Callpain, Pain/tenderness [...] Updated: 08-Apr-2023 10:46 by Nikki AguileraRN) Normal [facility] Initial Visit (Pain Medicine )on [...] and evaluated by multiple physicians including his info specialist, his oncologist. He has tried multiple different [...] no ea (more content not included)... Normal [facility] Clinic Note - Heme Onc Sched ulingon 01-31-2023 Clinic Note - Heme Onc Scheduling Retrieve Patient Instructions: Patient Instructions: Patient Instructions: RetrievePatient Instructions Instructions patient is scheduled w/ Pain Mngmnt as requested. Earliest available 02/19. End of Visit Documentation: Clinic Location/Phone Number: Clinic Location/Phone Number: [facility] End Of Visit MU Report Item: Visit Summary given or mailed to patientyes mailed Electronic Signatures: Nicole Jeong (SEC) (Signed 31-Jan-2023 16:14) Authored: Retrieve Patient Instructions, End of Visit Documentation Last Updated: 31-Jan-2023 16:14 by Nicole Jeong (SEC) Normal [facility] Phone Note - Heme Onc-appoin tment question - Referral to paion 01-31-2023 Phone Note - Heme Onc-appointment question - Referral to brian Phone Call Information: Patient Demographics: Name: KATERINA DANIELLE Date: 1960 Address: [address] [place] [address] Date and Time: 31-Jan-2023 12:13 Caller Information: call from Call From: patient Primary Phone Number: [phone] Reason for Call: Reason for Callappointment question, [...] 12:22 by Tea Oro (N MGR) Normal [facility] Office Visit (Onco-Nephrolog y - [...] transplant candidate Basic Metabolic Panel; Status:Active; Requested for:87Ste6814; Parathormone Intact, Serum; Status:Active; Requested for:10Tbw6780; Phosphorus, Serum; Status:Active; Requested for:45Krz6819; Unlinked Stop: Losartan Potassium 25 MG Oral [...] Known Food (more content not included)... Normal [facility] Phone Note - Heme Onc-order entryon 01-29-2023 Phone Note - Heme Onc-order puller Phone Call Information: Patient Demographics: Name: KATERINA DANIELLE Date: 1960 Address: [address] [place] [address] Primary Phone Number: [phone] Reason for Call: Reason for Callorder entry [...] 29-Jan-2023 14:13 by Zofia Smith (RN) Normal [facility] Tobacco Screening.on 023 Fall risk assessment b) One or more fall s in the last year [facility] 3 DO Work Phone: Tobacco use status [facility] b) No [facility] 3 DO Work Phone: Clinic Note - Heme Onc Sched ulingon 01-24-2023 Clinic Note - Heme Onc Scheduling Retrieve Patient Instructions: Patient Instructions: Patient Instructions: RetrievePatient Instructions End of Visit Documentation: Clinic Location/Phone Number: Clinic Location/Phone Number: [facility] End Of Visit MU Report Item: Visit Summary given or mailed to patientyes mailed to patient Electronic Signatures: Nicole Jeong (SEC) (Signed 24-Jan-2023 14:06) Authored: Retrieve Patient Instructions, End of Visit Documentation Last Updated: 24-Jan-2023 14:06 by Nicole Jeong (SEC) Normal [facility] Clinic Note - Heme Onc-Follo [...] referred to Dr. Rodriguez in oncology at [facility] for evaluation. 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 Bone marrow biopsy was done which was negative for involvement with lymphoma . He also underwent an LP with low yield. Because of his meningeal enhancement and location close to [employer] THERAPIST, he was treated with hyperCVAD-MA. He received [...] was compared to this patient's previous biopsy ([id number]). The previous biopsy demonstrated areas of necrosis [...] TP53 mutations. The patient was enrolled on [id number], Venetoclax+RICE. Cycle 1 started 10/29/17. Had tumor [...] pneumonitis. The patient was recently readmitted to [facility] (06/16-06/18/18) for fever and PNA. 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 He completed by mouth Levaquin. The patient was admitted to [facility] (08/18-08/21/18) with a new PE. He was [...] CAR T Cell infusion 01/04/19 with tisagenlecleucel ([employer]) with preparative regimen of fludarabine and cytoxan. History of Present Illness: ID Statement: KATERINA DANIELLE is a 62 year old Male (more content not included)... Normal [facility] Clinic Note - Intakeon 01-22 [...] 22-Jan-2023 13:02 by Lindsay Yadav (PCNA) Normal [facility] COMPREHENSIVE PANELon [address] [facility] Comment on above: Order Comment: TEST COMPREHENSIVE PANEL WAS CANCELLED, 01/21/2023 08:08 NO SPECIMEN RECEIVED IN LAB. Performed By: #### C MP #### [address] [place] [address] ALKALINE PHOSPHATASE Canceled Normal [facility] [place] Comment on above: Order Comment: TEST COMPREHENSIVE PANEL WAS CANCELLED, 01/21/2023 08:08 NO SPECIMEN RECEIVED IN LAB. Performed By: #### C MP #### [address] [place] [address] [facility] Comment on above: Order Comment: TEST COMPREHENSIVE PANEL WAS CANCELLED, 01/21/2023 08:08 NO SPECIMEN RECEIVED IN LAB. Result Comment: Yisel ents treated with Sulfasalazine may generate falsely decreased results for ALT. Performed By: #### C MP #### [address] [place] [address] ANION GAP Canceled Normal [facility] Comment on above: Order Comment: TEST COMPREHENSIVE PANEL WAS CANCELLED, 01/21/2023 08:08 NO SPECIMEN RECEIVED IN LAB. Performed By: #### C MP #### [address] [place] [address] [facility] Comment on above: Order Comment: TEST COMPREHENSIVE PANEL WAS CANCELLED, 01/21/2023 08:08 NO SPECIMEN RECEIVED IN LAB. Performed By: #### C MP #### [address] [place] [address] BICARBONATE Canceled Normal [facility] Comment on above: Order Comment: TEST COMPREHENSIVE PANEL WAS CANCELLED, 01/21/2023 08:08 NO SPECIMEN RECEIVED IN LAB. Performed By: #### C MP #### [address] [place] [address] BILIRUBIN,TOTAL Canceled Normal [facility] Comment on above: Order Comment: TEST COMPREHENSIVE PANEL WAS CANCELLED, 01/21/2023 08:08 NO SPECIMEN RECEIVED IN LAB. Performed By: #### C MP #### [address] [place] [address] [facility] Comment on above: Order Comment: TEST COMPREHENSIVE PANEL WAS CANCELLED, 01/21/2023 08:08 NO SPECIMEN RECEIVED IN LAB. Performed By: #### C MP #### [address] [place] [address] [facility] Comment on above: Order Comment: TEST COMPREHENSIVE PANEL WAS CANCELLED, 01/21/2023 08:08 NO SPECIMEN RECEIVED IN LAB. Performed By: #### C MP #### [address] [place] [address] [address] Normal [facility] Comment on above: Order Comment: TEST COMPREHENSIVE PANEL WAS CANCELLED, 01/21/2023 08:08 NO SPECIMEN RECEIVED IN LAB. Performed By: #### C MP #### [address] [place] [address] eGFR FEMALE Canceled Normal [facility] Comment on above: Order Comment: TEST COMPREHENSIVE PANEL WAS CANCELLED, 01/21/2023 08:08 NO SPECIMEN RECEIVED IN LAB. Result Comment: CALC ULATIONS OF ESTIMATED GFR ARE PERFORMED USING THE 2020 CKD-EPI STUDY REFIT EQUATION WITHOUT THE RACE VARIABLE FOR THE IDMS-TRACEABLE CREATININE METHODS. https://jasn.asnjournals.org/content/early/ASN.168753 2609 Performed By: #### C MP #### [address] [place] [address] eGFR MALE Canceled Normal [facility] Comment on above: Order Comment: TEST COMPREHENSIVE PANEL WAS CANCELLED, 01/21/2023 08:08 NO SPECIMEN RECEIVED IN LAB. Result Comment: CALC ULATIONS OF ESTIMATED GFR ARE PERFORMED USING THE 2020 CKD-EPI STUDY REFIT EQUATION WITHOUT THE RACE VARIABLE FOR THE IDMS-TRACEABLE CREATININE METHODS. https://jasn.asnjournals.org/content/early/ASN.932865 1999 Performed By: #### C MP #### [address] [place] [address] [facility] Comment on above: Order Comment: TEST COMPREHENSIVE PANEL WAS CANCELLED, 01/21/2023 08:08 NO SPECIMEN RECEIVED IN LAB. Performed By: #### C MP #### [address] [place] [address] [address] Canceled Normal [facility] Comment on above: Order Comment: TEST COMPREHENSIVE PANEL WAS CANCELLED, 01/21/2023 08:08 NO SPECIMEN RECEIVED IN LAB. Performed By: #### C MP #### [address] [place] [address] [facility] Comment on above: Order Comment: TEST COMPREHENSIVE PANEL WAS CANCELLED, 01/21/2023 08:08 NO SPECIMEN RECEIVED IN LAB. Performed By: #### C MP #### [address] [place] [address] TOTAL PROTEIN Canceled Normal [facility] Comment on above: Order Comment: TEST COMPREHENSIVE PANEL WAS CANCELLED, 01/21/2023 08:08 NO SPECIMEN RECEIVED IN LAB. Performed By: #### C MP #### [address] [place] [address] UREA NITROGEN Canceled Normal [facility] Comment on above: Order Comment: TEST COMPREHENSIVE PANEL WAS CANCELLED, 01/21/2023 08:08 NO SPECIMEN RECEIVED IN LAB. Performed By: #### C MP #### [address] [place] [address] LDHon 01-21-[address] [facility] Comment on above: Order Comment: TEST LDH WAS CANCELLED, 01/21/2023 08:08 NO SPECIMEN RECEIVED IN LAB. Performed By: #### L DH ####[facility] [place] [address] [place] [address] MAGNESIUMon 01-21-[address] [facility] Comment on above: Order Comment: TEST MAGNESIUM WAS CANCELLED, 01/21/2023 08:08 NO SPECIMEN RECEIVED IN LAB. Performed By: #### M G ####[address] [place] [address] Phone Note - Heme Onc-Insura nce Medical Hxon 01-14-2023 Phone Note - Heme Onc-Insurance Medical Hx Phone Call Information: Patient Demographics: Name: KATERINA DANIELLE Date: 1960 Address: [address] [place] [address] Date and Time: 14-Jan-2023 10:30 Caller Information: call from Call From: patient Primary Phone Number: [phone] Reason for Call: Reason for CallInsurance Medical [...] insurance that he needs to be re-evaluated. [facility] Dr. Saleem's office sent in the [...] 14:19 by Ashley Dugan (UNIT SECT) Normal [facility] IMMUNOGLOBULIN IGG QUANTITAT IVEon 01-03-2023 Immunoglobulin G, Qn, Serum 997 mg/dL Normal [phone] [facility] Comment on above: Performed By: #### M G, LDH, CMP #### [facility] [address] [place], [place] [address] Dr. Ladan Mcdonald Office Visiton 12-20-2022 Follow-up [...] signed for PCP and Nohelia Machado DO, Office Asst in [facility]. If you develop fever, loss [...] that point, PCP referred patient to a Office Asst at [facility]. He saw Nohelia Machado DO, Office Asst at [facility], did a breathing test and ordered a [...] 1 PUFF (more content not included)... Normal [facility] HEREDITARY HEMOCHROMATOSIS, DNA ANALYSISon 10-21-2022 Hereditary Hemochromatosis Comment Normal [facility] Comment on above: Result Comment: Resu lts: c.845G>A (p.Gwh467Lme) - Not Detected c.187C>G (p.Qtu31Hge) - Detected, heterozygous c.193A>T (p.Ivu68Fjg) - Not Detected Not associated with increased [...] for patients who are homozygous for c.845G>A (p.Xpp500Hwi) and have yet to experience clinical symptoms. . Comments: The most common HFE variants associated with hereditary hemochromatosis are c.845G>A (p.Ycu032Azt), c.187C>G (p.Dxd86Sns), c.193A>T (p.Xkq28Fnv). While patients homozygous for c.845G>A (p.Lux953Tmg) are the most likely to present clinical symptoms, less than 10% develop clinically significant iron overload with tissue and organ damage. . Genetic counseling is recommended to discuss the potential clinical implications of positive results, as well as recommendations for testing family members. Genetic Coordinators are available for health care providers to discuss results at [phone]). . Test Details: Three variants analyzed: c.845G>A (p.Mdy538Pif), commonly referred to as C282Y c.187C>G (p.Nqa50Qsa), commonly referred to as H63D c.193A>T (p.Rme52Xcb), commonly referred to as S65C . Methods/Limitations: [...] developed and its performance characteristics determined by [employer]. It has not been cleared or approved by the Food and Drug Administration. . References: Jared INMAN, Keith PC, Shelby KV, Rishabh LW, Heriberto ; [employer] Liver [employer]. Diagnosis and management of hemochromatosis: 2011 practice guideline by the [employer]. Hepatology. 2010;54(1):328-43. doi: 10.1002/hep.22553. PMID: 55165863; PMCID: PGA0278844. Consuelo G, Lisa P, Janeth CODY, Marcel H, Nick O, Jeffrey S, Ryder I, Frederick M, Candace Hale. QN best practice guidelines for the molecular genetic diagnosis of hereditary hemochromatosis (HH). Eur J Hum Winter. 2016 Nov;24(4):479-95. doi: 10.1038/ejhg.2015.128. Epub 2014Mar 08. PMID: 46276113; PMCID: [id number]. . Leslee Cadena, PhD, FACMG Dioni Trinidad, PhD Sunday Sofia, PhD, FACMG Angelito Beard, PhD, FACMG Tom Wills, PhD, FACMG Helio Henry, PhD, FACMG Katie Collazo, PhD, FAC Yun Peterson, PhD, FAC Performed By: #### H HDNA #### [facility] [address] [place] [address] [address] Ladan Mcdonald FERRITINon 10-11-2022 Ferritin [Mass/Vol] 1497.0 ng/mL Critically high 26.0-388. 0 [facility] Comment on above: Performed By: #### M G, LDH, CMP #### [facility] [address] [place] [address] [address] Ladan Mcdonald IRON AND TIBCon 10-11-2022 % SATURATION 35.6 % Normal [facility] Comment on above: Performed By: #### M G, LDH, CMP #### [facility] [address] [place] [address] [address] Ladan Mcdonald Iron [Mass/Vol] 99.0 ug/dL Normal 65.0-175.0 [facility] Comment on above: Performed By: #### M G, LDH, CMP #### [facility] [address] [place] [address] Dr. Ladan Mcdonald TIBC DIRECT 278.0 ug/dL Normal 250.0-450.0 [facility] Comment on above: Performed By: #### M G, LDH, CMP #### [facility] [address] [place] [address] Dr. Ladan Mcdonald MAGNESIUMon 10-11-2022 Magnesium [Mass/Vol] 2.2 mg/dL Normal 1.8-2.4 [facility] Comment on above: Performed By: #### M G, LDH, CMP #### [facility] [address] [place] [address] Dr. Ladan Mcdonald TSHon 10-11-2022 TSH 0.839 uIU/mL Normal 0.358-3.740 [facility] Comment on above: Performed By: #### M G, LDH, CMP #### [facility] [address] [place] [address] Dr. Ladan Mcdonald VIT B12 AND FOLATEon 023 Cobalamin (Vitamin B12) [Mass/Vol] 632.0 pg/mL Normal 193.0-986.0 [facility] Comment on above: Performed By: #### F ERR, B12FOL, FETIBC #### [facility] [address] [place] [address] Dr. Ladan Mcdonald FOLATE 10.20 ng/mL Normal 8.60-58.90 [facility] Comment on above: Performed By: #### F ERR, B12FOL, FETIBC #### [facility] [address] [place] [address] Dr. Ladan Mcdonald CBC AND DIFFERENTIALon 10-10 % AUTOMATED IMMATURE GRAN Canceled Normal [facility] Comment on above: Order Comment: TEST CBC AND DIFFERENTIAL WAS CANCELLED, 10/10/2022 15:36 NO SAMPLE RECIEVED/RELEASED IN ERROR Result Comment: Caryn ture Granulocyte Count (IG) includes promyelocytes, myelocytes and metamyelocytes but does not include bands. Percent differential counts (%) should be interpreted in the context of the absolute cell counts (cells/L). Performed By: #### C BCDF #### [address] [place] [address] % BASOPHIL Canceled Normal [facility] Comment on above: Order Comment: TEST CBC AND DIFFERENTIAL WAS CANCELLED, 10/10/2022 15:36 NO SAMPLE RECIEVED/RELEASED IN ERROR Performed By: #### C BCDF #### [address] [place] [address] % EOSINOPHIL Canceled Normal [facility] Comment on above: Order Comment: TEST CBC AND DIFFERENTIAL WAS CANCELLED, 10/10/2022 15:36 NO SAMPLE RECIEVED/RELEASED IN ERROR Performed By: #### C BCDF #### [address] [place] [address] % LYMPHOCYTE Canceled Normal [facility] Comment on above: Order Comment: TEST CBC AND DIFFERENTIAL WAS CANCELLED, 10/10/2022 15:36 NO SAMPLE RECIEVED/RELEASED IN ERROR Performed By: #### C BCDF #### [address] [place] [address] % MONOCYTE Canceled Normal [facility] Comment on above: Order Comment: TEST CBC AND DIFFERENTIAL WAS CANCELLED, 10/10/2022 15:36 NO SAMPLE RECIEVED/RELEASED IN ERROR Performed By: #### C BCDF #### [address] [place] [address] % NEUTROPHIL Canceled Normal [facility] Comment on above: Order Comment: TEST CBC AND DIFFERENTIAL WAS CANCELLED, 10/10/2022 15:36 NO SAMPLE RECIEVED/RELEASED IN ERROR Performed By: #### C BCDF #### [address] [place] [address] [address] [facility] Comment on above: Order Comment: TEST CBC AND DIFFERENTIAL WAS CANCELLED, 10/10/2022 15:36 NO SAMPLE RECIEVED/RELEASED IN ERROR Performed By: #### C BCDF #### [address] [place] [address] [facility] Comment on above: Order Comment: TEST CBC AND DIFFERENTIAL WAS CANCELLED, 10/10/2022 15:36 NO SAMPLE RECIEVED/RELEASED IN ERROR Performed By: #### C BCDF #### [address] [place] [address] [address]IN[address] [facility] Comment on above: Order Comment: TEST CBC AND DIFFERENTIAL WAS CANCELLED, 10/10/2022 15:36 NO SAMPLE RECIEVED/RELEASED IN ERROR Performed By: #### C BCDF #### [address] [place] [address] [facility] Comment on above: Order Comment: TEST CBC AND DIFFERENTIAL WAS CANCELLED, 10/10/2022 15:36 NO SAMPLE RECIEVED/RELEASED IN ERROR Performed By: #### C BCDF #### [address] [place] [address] [facility] Comment on above: Order Comment: TEST CBC AND DIFFERENTIAL WAS CANCELLED, 10/10/2022 15:36 NO SAMPLE RECIEVED/RELEASED IN ERROR Performed By: #### C BCDF #### [address] [place] [address] [address]MPHOCYTE Canceled Normal [facility] Comment on above: Order Comment: TEST CBC AND DIFFERENTIAL WAS CANCELLED, 10/10/2022 15:36 NO SAMPLE RECIEVED/RELEASED IN ERROR Performed By: #### C BCDF #### [address] [place] [address] [facility] Comment on above: Order Comment: TEST CBC AND DIFFERENTIAL WAS CANCELLED, 10/10/2022 15:36 NO SAMPLE RECIEVED/RELEASED IN ERROR Performed By: #### C BCDF #### [address] [place] [address] [facility] Comment on above: Order Comment: TEST CBC AND DIFFERENTIAL WAS CANCELLED, 10/10/2022 15:36 NO SAMPLE RECIEVED/RELEASED IN ERROR Performed By: #### C BCDF #### [address] [place] [address] Normal [facility] Comment on above: Order Comment: TEST CBC AND DIFFERENTIAL WAS CANCELLED, 10/10/2022 15:36 NO SAMPLE RECIEVED/RELEASED IN ERROR Performed By: #### C BCDF #### [address] [place] [address] [address] Normal [facility] Comment on above: Order Comment: TEST CBC AND DIFFERENTIAL WAS CANCELLED, 10/10/2022 15:36 NO SAMPLE RECIEVED/RELEASED IN ERROR Performed By: #### C BCDF #### [address] [place] [address] [facility] Comment on above: Order Comment: TEST CBC AND DIFFERENTIAL WAS CANCELLED, 10/10/2022 15:36 NO SAMPLE RECIEVED/RELEASED IN ERROR Performed By: #### C BCDF #### [address] [place] [address] [facility] Comment on above: Order Comment: TEST CBC AND DIFFERENTIAL WAS CANCELLED, 10/10/2022 15:36 NO SAMPLE RECIEVED/RELEASED IN ERROR Performed By: #### C BCDF #### [address] [place] [address] RDW-CV Canceled Normal [facility] Comment on above: Order Comment: TEST CBC AND DIFFERENTIAL WAS CANCELLED, 10/10/2022 15:36 NO SAMPLE RECIEVED/RELEASED IN ERROR Performed By: #### C BCDF #### [address] [place] [address] [facility] Comment on above: Order Comment: TEST CBC AND DIFFERENTIAL WAS CANCELLED, 10/10/2022 15:36 NO SAMPLE RECIEVED/RELEASED IN ERROR Performed By: #### C BCDF #### [address] [place] [address] Clinic Note - Heme Onc Sched ulingon 10-10-2022 Clinic Note - Heme Onc Scheduling Retrieve Patient Instructions: Patient Instructions: Patient Instructions: RetrievePatient Instructions Instructions Typenutrition Instructions Return to clinic Please call the office with any new or worsening symptoms in the meantime. End of Visit Documentation: Clinic Location/Phone Number: Clinic Location/Phone Number: [address] [place] [address] End Of Visit MU Report Item: Visit Summary given or mailed to patientyes Electronic Signatures: Whit Dugan (SEC) (Signed 10-Oct-2022 14:02) Authored: Retrieve Patient Instructions, End of Visit Documentation Last Updated: 10-Oct-2022 14:02 by Whit Dugan (SEC) Normal [facility] Clinic Note - Heme Onc-Follo [...] referred to Dr. Rodriguez in oncology at [facility] for evaluation. 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 Bone marrow biopsy was done which was negative for involvement with lymphoma . He also underwent an LP with low yield. Because of his meningeal enhancement and location close to [employer], he was treated with hyperCVAD-MA. He received [...] was compared to this patient's previous biopsy ([id number]). The previous biopsy demonstrated areas of necrosis [...] TP53 mutations. The patient was enrolled on [id number], Venetoclax+RICE. Cycle 1 started 10/29/17. Had tumor [...] pneumonitis. The patient was recently readmitted to [facility] (06/16-06/18/18) for fever and PNA. 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 He completed by mouth Levaquin. The patient was admitted to [facility] (08/18-08/21/18) with a new PE. He was [...] CAR T Cell infusion 01/04/19 with tisagenlecleucel ([employer]) with preparative regimen of fludarabine and cytoxan. History of Present Illness: ID Statement: KATERINA DANIELLE is a 61 year old Male (more content not included)... Normal [facility] Clinic Note - Intakeon 10-10 [...] 3 Weights & HeightsDate: Weight/Scale Type:Height: 15-Aug-2022 12:07799.7 kg 182.5 cm 21-Feb-2022 13:99684 kg 182.5 cm 21-Nov-2021 11:75027.3 kg / standing dimrj813.5 cm SpO2 (%)94 % SpO2 Patient Onroom [...] 12:45 by Linda Romero (MA II) Normal [facility] CBC AUTO DIFFon 09-27-2022 BASO # 0.0 103/ul Normal 0.0-0.1 [facility] Comment on above: Performed By: #### C BC #### [facility] [address] [address] [address] Ladan Mcdonald Basophils/100 WBC (Bld) 0.3 % Normal 0.2-2.0 [facility] Comment on above: Performed By: #### C BC #### [facility] [address] [address] [address] Ladan Mcdonald EO # 0.2 103/ul Normal 0.0-0.7 [facility] Comment on above: Performed By: #### C BC #### [facility] [address] [address] [address] Ladan Mcdonald Eosinophils/100 WBC (Bld) 4.8 % Normal 0.9-7.0 [facility] Comment on above: Performed By: #### C BC #### [facility] [address] [address] [address] Ladan Mcdonald Erythrocyte distribution width (RBC) [Ratio] 16.1 % Critically high 11.0-15.0 [facility] Comment on above: Performed By: #### C BC #### [facility] [address] [address] [address] Ladan Mcdonald Hematocrit (Bld) [Volume fraction] 46.7 % Normal 42.0-54.0 [facility] Comment on above: Performed By: #### C BC #### [facility] [address] [address] [address] Ladan Mcdonald Hemoglobin (Bld) [Mass/Vol] 13.6 g/dL Critically low 14.0-18.0 [facility] Comment on above: Performed By: #### C BC #### [facility] [address] [place] [address] Dr. Ladan Mcdonald IG # 0.02 10e3/ul Normal 0.00-0.03 [facility] Comment on above: Performed By: #### C BC #### [facility] [address] [place] [address] Dr. Ladan Mcodnald IG % 0.5 % Normal 0.0-0.5 [facility] Comment on above: Performed By: #### C BC #### [facility] [address] [place] [address] Dr. Ladan Mcdonald LYMPH # 1.0 103/ul Critically low 1.2-3.8 [facility] Comment on above: Performed By: #### C BC #### [facility] [address] [place] [address] Dr. Ladan Mcdonald Lymphocytes/100 WBC (Bld) 26.1 % Normal 20.5-60.0 [facility] Comment on above: Performed By: #### C BC #### [facility] [address] [place] [address] Dr. Ladan Mcdonald MANUAL DIFF REQ NO Normal [facility] Comment on above: Performed By: #### C BC #### [facility] [address] [place] [address] Dr. Ladan Mcdonald MCH (RBC) [Entitic mass] 26.6 pg Normal 25.9-34.0 [facility] Comment on above: Performed By: #### C BC #### [facility] [address] [place] [address] Dr. Ladan Mcdonald MCHC (RBC) [Mass/Vol] 29.1 g/dL Critically low 29.9-35.2 [facility] Comment on above: Performed By: #### C BC #### [facility] [address] [id number] Ladan Mcdonald MCV (RBC) [Entitic vol] 91.4 fL Normal 80.0-94.0 [facility] Comment on above: Performed By: #### C BC #### [facility] [address] [address] [address] Ladan Mcdonald MONO # 0.4 103/ul Normal 0.3-0.8 [facility] Comment on above: Performed By: #### C BC #### [facility] [address] [address] [address] Ladan Mcdonald Monocytes/100 WBC (Bld) 8.8 % Normal 1.7-12.0 [facility] Comment on above: Performed By: #### C BC #### [facility] [address] [place] [address] Dr. Ladan Mcdonald NEUT # 2.4 103/ul Normal 1.4-6.5 [facility] Comment on above: Performed By: #### C BC #### [facility] [address] [place] [address] Dr. Ladan Mcdonald Neutrophils/100 WBC (Bld) 59.5 % Normal 43.0-75.0 [facility] Comment on above: Performed By: #### C BC #### [facility] [address] [place] [address] Dr. Ladan Mcdonald Platelet mean volume (Bld) [Entitic vol] 10.1 fL Normal 9.5-13.5 [facility] Comment on above: Performed By: #### C BC #### [facility] [address] [place] [address] Dr. Ladan Mcdonald PLT 132 103/ul Critically low 150-450 [facility] Comment on above: Performed By: #### C BC #### [facility] [address] [place], [place] [address] Dr. Ladan Mcdonald RBC 5.11 106/ul Normal 4.70-6.10 [facility] Comment on above: Performed By: #### C BC #### [facility] [address] [place] [address] Dr. Ladan Mcdonald WBC 4.0 103/ul Normal 4.0-11.0 [facility] Comment on above: Performed By: #### C BC #### [facility] [address] [address] [address] Ladan Mcdonald LDHon 09-27-2022 LDH 256 U/L Critically high 85-227 [facility] Comment on above: Performed By: #### M G, LDH, CMP #### [facility] [address] [address] [address] Ladan Mcdonald MAGNESIUMon 09-27-2022 Magnesium [Mass/Vol] 2.1 mg/dL Normal 1.8-2.4 [facility] Comment on above: Performed By: #### M G, LDH, CMP #### [facility] [address] [place] [address] Dr. Ladan Mcdonald PROF 14(COMP METB)on 023 Albumin [Mass/Vol] 3.5 g/dL Normal 3.4-5.0 [facility] Comment on above: Performed By: #### M G, LDH, CMP #### [facility] [address] [address] [address] Ladan Mcdonald Albumin/Globulin [Mass ratio] 1.0 {ratio} Normal [facility] Comment on above: Performed By: #### M G, LDH, CMP #### [facility] [address] [place] [address] Dr. Ladan Mcdonald ALP [Catalytic activity/Vol] 121 U/L Critically high 46-116 [facility] Comment on above: Performed By: #### M G, LDH, CMP #### [facility] [address] [address] [address] Ladan Mcdonald ALT [Catalytic activity/Vol] 51 U/L Normal 16-63 [facility] Comment on above: Performed By: #### M G, LDH, CMP #### [facility] [address] [address] [address] Ladan Mcdonald Anion gap [Moles/Vol] 11.7 mmol/L Normal [facility] Comment on above: Performed By: #### M G, LDH, CMP #### [facility] [address] [address] [address] Ladan Mcdonald AST [Catalytic activity/Vol] 33 U/L Normal 15-37 [facility] Comment on above: Performed By: #### M G, LDH, CMP #### [facility] [address] [place] [address] Dr. Ladan Mcdonald Bilirubin [Mass/Vol] 0.4 mg/dL Normal 0.2-1.0 [facility] Comment on above: Performed By: #### M G, LDH, CMP #### [facility] [address] [place] [address] Dr. Ladan Mcdonald Calcium [Mass/Vol] 9.4 mg/dL Normal 8.5-10.1 [facility] Comment on above: Performed By: #### M G, LDH, CMP #### [facility] [address] [place] [address] Dr. Ladan Mcdonald Chloride [Moles/Vol] 104 mmol/L Normal 98-107 [facility] Comment on above: Performed By: #### M G, LDH, CMP #### [facility] [address] [place] [address] Dr. Ladan Mcdonald CO2 [Moles/Vol] 29.0 mmol/L Normal 21.0-32.0 [facility] Comment on above: Performed By: #### M G, LDH, CMP #### [facility] [address] [place] [address] Dr. Ladan Mcdonald Creatinine [Mass/Vol] 1.61 mg/dL Critically high 0.70-1.30 [facility] Comment on above: Performed By: #### M G, LDH, CMP #### [facility] [address] [place] [address] Dr. Ladan Mcdonald EGFR-AF GHANAIAN 53 mL/min/1.73m2 Critically low >=60 [facility] Comment on above: Performed By: #### M G, LDH, CMP #### [facility] [address] [place] [address] Dr. Ladan Mcdonald EGFR-NON AF GHANAIAN 44 mL/min/1.73m2 Critically low >=60 [facility] Comment on above: Performed By: #### M G, LDH, CMP #### [facility] [address] [address] [address] Ladan Mcdonald Globulin (S) [Mass/Vol] 3.6 g/dL Normal [facility] Comment on above: Performed By: #### M G, LDH, CMP #### [facility] [address] [address] [address] Ladan Mcdonald Glucose [Mass/Vol] 107 mg/dL Critically high 74-106 [facility] Comment on above: Performed By: #### M G, LDH, CMP #### [facility] [address] [place] [address] Dr. Ladan Mcdonald Potassium [Moles/Vol] 4.7 mmol/L Normal 3.5-5.1 [facility] Comment on above: Performed By: #### M G, LDH, CMP #### [facility] [address] [place] [address] Dr. Ladan Mcdonald Protein [Mass/Vol] 7.1 g/dL Normal 6.4-8.2 [facility] Comment on above: Performed By: #### M G, LDH, CMP #### [facility] [address] [place] [address] Dr. Ladan Mcdonald Sodium [Moles/Vol] 140 mmol/L Normal 136-145 [facility] Comment on above: Performed By: #### M G, LDH, CMP #### [facility] [address] [place] [address] Dr. Ladan Mcdonald Urea nitrogen [Mass/Vol] 27.0 mg/dL Critically high 7.0-18.0 [facility] Comment on above: Performed By: #### M G, LDH, CMP #### [facility] [address] [place] [address] Dr. Ladan Mcdonald Urea nitrogen/Creatinine [Mass ratio] 16.8 mg/mg Normal [facility] Comment on above: Performed By: #### M G, LDH, CMP #### [facility] [address] [place], [place] [address] Dr. Ladan Mcdonald Phone Note - Heme Onc-lab re quisitionon 09-27-2022 Phone Note - Heme Onc-lab requisition Phone Call Information: Patient Demographics: Name: KATERINA DANIELLE Date: 1960 Address: [address] [place] [address] Date and Time: 27-Sep-2022 08:29 Caller Information: call from Primary Phone Number: [phone] Reason for Call: Reason for Calllab requisition Message: Message: VM Needs lab order sent to [facility] in [place], [place] or [facility] in [place], [place]. Has appointment scheduled for next . Patient called back- fax number to lab at [facility]: [phone] Team Communication: Team Communications: RN printed and this secretary receptionist faxed. Confirmation received 10:21am. Ashley Dugan 09/27/2022 [...] 10:26 by Ashley Dugan (UNIT SECT) Normal [facility] Phone Note - Heme Onc-refill medication...on 09-06-2022 Phone Note - Heme Onc-refill medication... Phone Call Information: Patient Demographics: Name: KATERINA DANIELLE Date: 1960 Address: [address] [place] [address] Date and Time: 06-Sep-2022 10:40 Caller Information: call from Call From: patient Primary Phone Number: [phone] Reason for Call: Reason for Callrefill medication Message: Message: Patient fills Gabapentin with [facility] that is now [facility]. He has 14 pills left. They will not refill for him until 09/22/22 and then say it will be 1-2 weeks before delivery. He will be out of medication by then. Asking if office can rectify Team Communication: Clinician note: contacted patient Disposition: Rx sent by eprescribe Team Communications: Spoke with Yas at [facility]. States patient needs a refill for gabapentin sent in and then he will be able to receive the medication within 7 business days or less. Tea Oro 09/06/2022 11:[address] Sears: KATERINA DANIELLE ([id number]): Needs refill of gabapentin 300mg daily please [...] 11:22 by Tea Oro (N MGR) Normal [facility] Clinic Note - Heme Onc-Follo [...] referred to Dr. Rodriguez in oncology at [facility] for evaluation. 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 Bone marrow biopsy was done which was negative for involvement with lymphoma . He also underwent an LP with low yield. Because of his meningeal enhancement and location close to [employer], he was treated with hyperCVAD-MA. He received [...] was compared to this patient's previous biopsy ([id number]). The previous biopsy demonstrated areas of necrosis [...] TP53 mutations. The patient was enrolled on [id number], Venetoclax+RICE. Cycle 1 started 10/29/17. Had tumor [...] pneumonitis. The patient was recently readmitted to [facility] (06/16-06/18/18) for fever and PNA. 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 He completed by mouth Levaquin. The patient was admitted to [facility] (08/18-08/21/18) with a new PE. He was [...] CAR T Cell infusion 01/04/19 with tisagenlecleucel ([facility] with preparative regimen of fludarabine and cytoxan. History of Present Illness: ID Statement: KATERINA DANIELLE is a 61 year old Male (more content not included)... Normal [facility] Clinic Note - Intakeon 08-15 [...] 3 Weights & HeightsDate: Weight/Scale Type:Height: 21-Feb-2022 13:64882 kg 182.5 cm 21-Nov-2021 11:33557.3 kg / standing .5 cm 23-Aug-2021 13:79978.3 kg / standing .5 cm SpO2 (%)94 [...] for us to knowno Adv Dir: Living [facility] Declaration of Mental Health Treatmentno Violence: Are you or have you been threatened or abused physically,emotionally or sexually abused by anyoneno Do you feel UNSAFE going back to the place you are livingno Depression: Past 2 wks: Shaniko down, depressed or hopelessno Past 2 wks: Shaniko little interest/pleasure doing thingsno Any Thoughts of [...] 12:44 by Linda Romero (PAKO PAGAN) Normal [facility] CBC AUTO DIFFon 08-12-2022 BASO # 0.0 103/ul Normal 0.0-0.1 [facility] Comment on above: Performed By: #### C BC #### [facility] [address] [place] [address] Dr. Ladan Mcdonald Basophils/100 WBC (Bld) 0.5 % Normal 0.2-2.0 [facility] Comment on above: Performed By: #### C BC #### [facility] [address] [place] [address] Dr. Ladan Mcdonald EO # 0.2 103/ul Normal 0.0-0.7 [facility] Comment on above: Performed By: #### C BC #### [facility] [address] [place] [address] Dr. Ladan Mcdonald Eosinophils/100 WBC (Bld) 4.3 % Normal 0.9-7.0 [facility] Comment on above: Performed By: #### C BC #### [facility] [address] [place] [address] Dr. Ladan Mcdonald Erythrocyte distribution width (RBC) [Ratio] 15.7 % Critically high 11.0-15.0 [facility] Comment on above: Performed By: #### C BC #### [facility] [address] [place] [address] Dr. Ladan Mcdonald Hematocrit (Bld) [Volume fraction] 44.2 % Normal 42.0-54.0 [facility] Comment on above: Performed By: #### C BC #### [facility] [address] [place] [address] Dr. Ladan Mcdonald Hemoglobin (Bld) [Mass/Vol] 14.0 g/dL Normal 14.0-18.0 [facility] Comment on above: Performed By: #### C BC #### [facility] [address] [place] [address] Dr. Ladan Mcdonald IG # 0.06 10e3/ul Critically high 0.00-0.03 [facility] Comment on above: Performed By: #### C BC #### [facility] [address] [place] [address] Dr. Ladan Mcdonald IG % 1.5 % Critically high 0.0-0.5 [facility] Comment on above: Performed By: #### C BC #### [facility] [address] [place] [address] Dr. Ladan Mcdonald LYMPH # 1.4 103/ul Normal 1.2-3.8 [facility] Comment on above: Performed By: #### C BC #### [facility] [address] [place] [address] Dr. Ladan Mcdonald Lymphocytes/100 WBC (Bld) 35.2 % Normal 20.5-60.0 [facility] Comment on above: Performed By: #### C BC #### [facility] [address] [place] [address] Dr. Ladan Mcdonald MANUAL DIFF REQ NO Normal [facility] Comment on above: Performed By: #### C BC #### [facility] [address] [place] [address] Dr. Ladan Mcdonald MCH (RBC) [Entitic mass] 26.4 pg Normal 25.9-34.0 [facility] Comment on above: Performed By: #### C BC #### [facility] [address] [place] [address] Dr. Ladan Mcdonald MCHC (RBC) [Mass/Vol] 31.7 g/dL Normal 29.9-35.2 [facility] Comment on above: Performed By: #### C BC #### [facility] [address] [place] [address] Dr. Ladan Mcdonald MCV (RBC) [Entitic vol] 83.2 fL Normal 80.0-94.0 [facility] Comment on above: Performed By: #### C BC #### [facility] [address] [place] [address] Dr. Ladan Mcdonald MONO # 0.3 103/ul Normal 0.3-0.8 [facility] Comment on above: Performed By: #### C BC #### [facility] [address] [place] [address] Dr. Ladan Mcdonald Monocytes/100 WBC (Bld) 6.4 % Normal 1.7-12.0 [facility] Comment on above: Performed By: #### C BC #### [facility] [address] [place] [address] Dr. Ladan Mcdonald NEUT # 2.0 103/ul Normal 1.4-6.5 [facility] Comment on above: Performed By: #### C BC #### [facility] [address] [place] [address] Dr. Ladan Mcdonald Neutrophils/100 WBC (Bld) 52.1 % Normal 43.0-75.0 [facility] Comment on above: Performed By: #### C BC #### [facility] [address] [place] [address] Dr. Ladan Mcdonald Platelet mean volume (Bld) [Entitic vol] 9.4 fL Critically low 9.5-13.5 The [facility] Comment on above: Performed By: #### C BC #### [facility] [address] [place] [address] Dr. Ladan Mcdonald PLT 137 103/ul Critically low 150-450 The [facility] Comment on above: Performed By: #### C BC #### [facility] [address] [place] [address] Dr. Ladan Mcdonald RBC 5.31 106/ul Normal 4.70-6.10 [facility] Comment on above: Performed By: #### C BC #### [facility] [address] [place] [address] Dr. Ladan Mcdonald WBC 3.9 103/ul Critically low 4.0-11.0 [facility] Comment on above: Performed By: #### C BC #### [facility] [address] [address] [address] Ladan Mcdonald LDHon 08-12-2022 LDH 196 U/L Normal 85-227 [facility] Comment on above: Performed By: #### M G, LDH, CMP #### [facility] [address] [place] [address] Dr. Ladan Mcdonald MAGNESIUMon 08-12-2022 Magnesium [Mass/Vol] 2.1 mg/dL Normal 1.8-2.4 [facility] Comment on above: Performed By: #### M G, LDH, CMP #### [facility] [address] [place] [address] Dr. Ladan Mcdonald PROF 14(COMP METB)on 022 Albumin [Mass/Vol] 3.5 g/dL Normal 3.4-5.0 [facility] Comment on above: Performed By: #### M G, LDH, CMP #### [facility] [address] [place] [address] Dr. Ladan Mcdonald Albumin/Globulin [Mass ratio] 0.9 {ratio} Normal [facility] Comment on above: Performed By: #### M G, LDH, CMP #### [facility] [address] [place] [address] Dr. Ladan Mcdonald ALP [Catalytic activity/Vol] 118 U/L Critically high 46-116 [facility] Comment on above: Performed By: #### M G, LDH, CMP #### [facility] [address] [place] [address] Dr. Ladan Mcdonald ALT [Catalytic activity/Vol] 46 U/L Normal 16-63 [facility] Comment on above: Performed By: #### M G, LDH, CMP #### [facility] [address] [place] [address] Dr. Ladan Mcdonald Anion gap [Moles/Vol] 8.7 mmol/L Normal [facility] Comment on above: Performed By: #### M G, LDH, CMP #### [facility] [address] [address] [address] Ladan Mcdonald AST [Catalytic activity/Vol] 30 U/L Normal 15-37 [facility] Comment on above: Performed By: #### M G, LDH, CMP #### [facility] [address] [address] [address] Ladan Mcdonald Bilirubin [Mass/Vol] 0.4 mg/dL Normal 0.2-1.0 [facility] Comment on above: Performed By: #### M G, LDH, CMP #### [facility] [address] [address] [address] Ladan Mcdonald Calcium [Mass/Vol] 9.1 mg/dL Normal 8.5-10.1 [facility] Comment on above: Performed By: #### M G, LDH, CMP #### [facility] [address] [address] [address] Ladan Mcdonald Chloride [Moles/Vol] 106 mmol/L Normal 98-107 [facility] Comment on above: Performed By: #### M G, LDH, CMP #### [facility] [address] [address] [address] Ladan Mcdonald CO2 [Moles/Vol] 31.9 mmol/L Normal 21.0-32.0 [facility] Comment on above: Performed By: #### M G, LDH, CMP #### [facility] [address] [address] [address] Ladan Mcdonald Creatinine [Mass/Vol] 1.68 mg/dL Critically high 0.70-1.30 [facility] Comment on above: Performed By: #### M G, LDH, CMP #### [facility] [address] [address] [address] Ladan Mcdonald EGFR-AF GHANAIAN 51 mL/min/1.73m2 Critically low >=60 [facility] Comment on above: Performed By: #### M G, LDH, CMP #### [facility] [address] [address] [address] Ladan Mcdonald EGFR-NON AF GHANAIAN 42 mL/min/1.73m2 Critically low >=60 [facility] Comment on above: Performed By: #### M G, LDH, CMP #### [facility] [address] [address] [address] Ladan Mcdonald Globulin (S) [Mass/Vol] 3.7 g/dL Normal [facility] Comment on above: Performed By: #### M G, LDH, CMP #### [facility] [address] [address] [address] Ladan Mcdonald Glucose [Mass/Vol] 110 mg/dL Critically high 74-106 [facility] Comment on above: Performed By: #### M G, LDH, CMP #### [facility] [address] [place] [address] Dr. Ladan Mcdonald Potassium [Moles/Vol] 4.6 mmol/L Normal 3.5-5.1 [facility] Comment on above: Performed By: #### M G, LDH, CMP #### [facility] [address] [place] [address] Dr. Ladan Mcdonald Protein [Mass/Vol] 7.2 g/dL Normal 6.4-8.2 [facility] Comment on above: Performed By: #### M G, LDH, CMP #### [facility] [address] [place] [address] Dr. Ladan Mcdonald Sodium [Moles/Vol] 142 mmol/L Normal 136-145 [facility] Comment on above: Performed By: #### M G, LDH, CMP #### [facility] [address] [place] [address] Dr. Ladan Mcdonald Urea nitrogen [Mass/Vol] 24.0 mg/dL Critically high 7.0-18.0 [facility] Comment on above: Performed By: #### M G, LDH, CMP #### [facility] [address] [place] [address] Dr. Ladan Mcdonald Urea nitrogen/Creatinine [Mass ratio] 14.3 mg/mg Normal [facility] Comment on above: Performed By: #### M G, LDH, CMP #### [facility] [address] [place] [address] Dr. Ladan Mcdonald Phone Note - Heme Onc-lab re quisition - Mailing lab reqon 08-06-2022 Phone Note - Heme Onc-lab requisition - Mailing lab req Phone Call Information: Patient Demographics: Name: KATERINA DANIELLE Date: 1960 Address: [address] [place] [address] Date and Time: 06-Aug-2022 10:58 Caller Information: call from Primary Phone Number: [phone] Reason for Call: Reason for Calllab requisition, [...] 06-Aug-2022 11:16 by Zofia Smith (KLEVER) Normal [facility] XR CHEST 2 Von 07-18-2022 [...] JS LÓPEZ Date: 2022-07-18 15:06 Normal [facility] Office Visit (Onco-Nephrolog y - Established)on 07-16-2022 Follow-up visit Diagnoses/Problems CKD (chronic kidney disease), stage III (585.3) (N18.30) Benign essential HTN (401.1) (I10) Hyperparathyroidism, secondary (588.81) (N25.81) Orders Benign essential HTN, CKD (chronic kidney disease), stage III, Hyperparathyroidism, secondary Basic Metabolic Panel; Status:Active; Requested for:[id number]; Parathormone Intact, Serum; Status:Active; Requested for:[id number]; Phosphorus, Serum; Status:Active; Requested for:[id number]; Provider Impressions 1- CKD III: His Cr [...] (COVID-19) Ag IA.rapid Ql (Resp) Negative Negative [facility] Comment on above: This is a duplicate Mariella SARS Antigen (JOE) result to be used for statistical tracking purpose only. No Panel InformationOrdered By: Victor Hugo Farrell on 06-11-2022 SARS Antigen (LFIA) [facility] ECHOCARDIO M/2D COMPLETEon 0 04-01-2022 ECHOCARDIO M/2D COMPLETE Patient: KATERINA DANIELLE Exam Date: 04/01/2022 : 1960 Gender:M Ordering : DR NAEL FARIAS . Admission #: [id number] Family : Order #: [id number] CLICK HERE TO VIEW EXAM ECHOCARDIOGRAM REPORT [...] M.D. on 04/02/2022 at 18:37 Normal [facility] LACTATE DEHYDROGENASE (LD) I SOENZYMESon 02-23-2022 LD FRACTION 1 16 % Critically low 17-32 [facility] Comment on above: Result Comment: Perf ormed at: BN Performed By: #### L DISO #### [facility] [address] [address] [address] Ladan Mcdonald LD FRACTION 2 33 % Normal 25-40 [facility] Comment on above: Result Comment: Perf ormed at: BN Performed By: #### L DISO #### [facility] [address] [address] [address] Ladan Mcdonald LD FRACTION 3 23 % Normal 17-27 [facility] Comment on above: Result Comment: Perf ormed at: BN Performed By: #### L DISO #### [facility] [address] [address] [address] Ladan Mcdonald LD FRACTION 4 13 % Normal 5-13 [facility] Comment on above: Result Comment: Perf ormed at: BN Performed By: #### L DISO #### [facility] [address] [address] [address] Ladan Mcdonald LD FRACTION 5 15 % Normal 4-20 The [facility] Comment on above: Result Comment: Perf ormed at: BN Performed By: #### L DISO #### [facility] [address] [address] [address] Ladan Mcdonald LDH 245 IU/L Critically high 121-224 [facility] Comment on above: Result Comment: Perf ormed at: CB Performed By: #### L DISO #### [facility] [address] [address] [address] Ladan Mcdonald CBC AND DIFFERENTIALon 02-21 % AUTOMATED IMMATURE GRAN Canceled Normal [facility] Comment on above: Order Comment: TEST CBC AND DIFFERENTIAL WAS CANCELLED, 02/21/2022 14:13 Cancelled per Zofia. Result Comment: Caryn ture Granulocyte Count (IG) includes promyelocytes, myelocytes and metamyelocytes but does not include bands. Percent differential counts (%) should be interpreted in the context of the absolute cell counts (cells/L). Performed By: #### C BCDF #### [address] [place] [address] % BASOPHIL Canceled Normal [facility] Comment on above: Order Comment: TEST CBC AND DIFFERENTIAL WAS CANCELLED, 02/21/2022 14:13 Cancelled per Zofia. Performed By: #### C BCDF #### [address] [place] [address] % EOSINOPHIL Canceled Normal [facility] Comment on above: Order Comment: TEST CBC AND DIFFERENTIAL WAS CANCELLED, 02/21/2022 14:13 Cancelled per Zofia. Performed By: #### C BCDF #### [address] [place] [address] % LYMPHOCYTE Canceled Normal [facility] Comment on above: Order Comment: TEST CBC AND DIFFERENTIAL WAS CANCELLED, 02/21/2022 14:13 Cancelled per Zofia. Performed By: #### C BCDF #### [address] [place] [address] % MONOCYTE Canceled Normal [facility] Comment on above: Order Comment: TEST CBC AND DIFFERENTIAL WAS CANCELLED, 02/21/2022 14:13 Cancelled per Zofia. Performed By: #### C BCDF #### [address] [place] [address] % NEUTROPHIL Canceled Normal [facility] Comment on above: Order Comment: TEST CBC AND DIFFERENTIAL WAS CANCELLED, 02/21/2022 14:13 Cancelled per Zofia. Performed By: #### C BCDF #### [address] [place] [address] BASOPHIL Canceled Normal [facility] Comment on above: Order Comment: TEST CBC AND DIFFERENTIAL WAS CANCELLED, 02/21/2022 14:13 Cancelled per Zofia. Performed By: #### C BCDF #### [address] [place] [address] DIFFERENTIAL Canceled [facility] Comment on above: Order Comment: TEST CBC AND DIFFERENTIAL WAS CANCELLED, 02/21/2022 14:13 Cancelled per Zofia. Performed By: #### C BCDF #### [address] [place] [address] EOSINOPHIL Canceled [facility] Comment on above: Order Comment: TEST CBC AND DIFFERENTIAL WAS CANCELLED, 02/21/2022 14:13 Cancelled per Zofia. Performed By: #### C BCDF #### [address] [place] [address] HCT Canceled [facility] Comment on above: Order Comment: TEST CBC AND DIFFERENTIAL WAS CANCELLED, 02/21/2022 14:13 Cancelled per Zofia. Performed By: #### C BCDF #### [address] [place] [address] HGB Canceled [facility] Comment on above: Order Comment: TEST CBC AND DIFFERENTIAL WAS CANCELLED, 02/21/2022 14:13 Cancelled per Zofia. Performed By: #### C BCDF #### [address] [place] [address] LYMPHOCYTE Canceled [facility] Comment on above: Order Comment: TEST CBC AND DIFFERENTIAL WAS CANCELLED, 02/21/2022 14:13 Cancelled per Zofia. Performed By: #### C BCDF #### [address] [place] [address] MCHC Canceled [facility] Comment on above: Order Comment: TEST CBC AND DIFFERENTIAL WAS CANCELLED, 02/21/2022 14:13 Cancelled per Zofia. Performed By: #### C BCDF #### [address] [place] [address] MCV Canceled [facility] Comment on above: Order Comment: TEST CBC AND DIFFERENTIAL WAS CANCELLED, 02/21/2022 14:13 Cancelled per Zofia. Performed By: #### C BCDF #### [address] [place] [address] MONOCYTE Canceled [facility] Comment on above: Order Comment: TEST CBC AND DIFFERENTIAL WAS CANCELLED, 02/21/2022 14:13 Cancelled per Zofia. Performed By: #### C BCDF #### [address] [place] [address] NEUTROPHIL Canceled [facility] Comment on above: Order Comment: TEST CBC AND DIFFERENTIAL WAS CANCELLED, 02/21/2022 14:13 Cancelled per Zofia. Performed By: #### C BCDF #### [address] [place] [address] PLT Canceled [facility] Comment on above: Order Comment: TEST CBC AND DIFFERENTIAL WAS CANCELLED, 02/21/2022 14:13 Cancelled per Zofia. Performed By: #### C BCDF #### [address] [place] [address] RBC Canceled [facility] Comment on above: Order Comment: TEST CBC AND DIFFERENTIAL WAS CANCELLED, 02/21/2022 14:13 Cancelled per Zofia. Performed By: #### C BCDF #### [address] [place] [address] RDW-CV Canceled [facility] Comment on above: Order Comment: TEST CBC AND DIFFERENTIAL WAS CANCELLED, 02/21/2022 14:13 Cancelled per Zofia. Performed By: #### C BCDF #### [address] [place] [address] WBC Canceled [facility] Comment on above: Order Comment: TEST CBC AND DIFFERENTIAL WAS CANCELLED, 02/21/2022 14:13 Cancelled per Zofia. Performed By: #### C BCDF #### [address] [place] [address] COMPREHENSIVE PANELon 2021 ALBUMIN Canceled Normal [facility] Comment on above: Order Comment: TEST COMPREHENSIVE PANEL WAS CANCELLED, 02/21/2022 14:13 Cancelled per Zofia. Performed By: #### C MP #### [address] [place] [address] ALKALINE PHOSPHATASE Canceled Normal [facility] Comment on above: Order Comment: TEST COMPREHENSIVE PANEL WAS CANCELLED, 02/21/2022 14:13 Cancelled per Zofia. Performed By: #### C MP #### [address] [place] [address] ALT Canceled [facility] Comment on above: Order Comment: TEST COMPREHENSIVE PANEL WAS CANCELLED, 02/21/2022 14:13 Cancelled per Zofia. Result Comment: Iysel ents treated with Sulfasalazine may generate falsely decreased results for ALT. Performed By: #### C MP #### [address] [place] [address] ANION GAP Canceled Normal [facility] Comment on above: Order Comment: TEST COMPREHENSIVE PANEL WAS CANCELLED, 02/21/2022 14:13 Cancelled per Zofia. Performed By: #### C MP #### [address] [place] [address] AST Canceled Normal [facility] Comment on above: Order Comment: TEST COMPREHENSIVE PANEL WAS CANCELLED, 02/21/2022 14:13 Cancelled per Zofia. Performed By: #### C MP #### [address] [place] [address] BICARBONATE Canceled Normal [facility] Comment on above: Order Comment: TEST COMPREHENSIVE PANEL WAS CANCELLED, 02/21/2022 14:13 Cancelled per Zofia. Performed By: #### C MP #### [address] [place] [address] BILIRUBIN,TOTAL Canceled Normal [facility] Comment on above: Order Comment: TEST COMPREHENSIVE PANEL WAS CANCELLED, 02/21/2022 14:13 Cancelled per Zofia. Performed By: #### C MP #### [address] [place] [address] CALCIUM Canceled [facility] Comment on above: Order Comment: TEST COMPREHENSIVE PANEL WAS CANCELLED, 02/21/2022 14:13 Cancelled per Zofia. Performed By: #### C MP #### [address] [place] [address] CHLORIDE Canceled [facility] Comment on above: Order Comment: TEST COMPREHENSIVE PANEL WAS CANCELLED, 02/21/2022 14:13 Cancelled per Zofia. Performed By: #### C MP #### [address] [place] [address] CREATININE Canceled [facility] Comment on above: Order Comment: TEST COMPREHENSIVE PANEL WAS CANCELLED, 02/21/2022 14:13 Cancelled per Zofia. Performed By: #### C MP #### [address] [place] [address] eGFR FEMALE Canceled [facility] Comment on above: Order Comment: TEST COMPREHENSIVE PANEL WAS CANCELLED, 02/21/2022 14:13 Cancelled per Zofia. Result Comment: CALC ULATIONS OF ESTIMATED GFR ARE PERFORMED USING THE 2020 CKD-EPI STUDY REFIT EQUATION WITHOUT THE RACE VARIABLE FOR THE IDMS-TRACEABLE CREATININE METHODS. https://jasn.asnjournals.org/content//ASN.102365 2536 Performed By: #### C MP #### [address] [place] [address] eGFR MALE Canceled [facility] Comment on above: Order Comment: TEST COMPREHENSIVE PANEL WAS CANCELLED, 02/21/2022 14:13 Cancelled per Zofia. Result Comment: CALC ULATIONS OF ESTIMATED GFR ARE PERFORMED USING THE 2020 CKD-EPI STUDY REFIT EQUATION WITHOUT THE RACE VARIABLE FOR THE IDMS-TRACEABLE CREATININE METHODS. https://jasn.asnjournals.org/content/22/ASN.046361 9527 Performed By: #### C MP #### [address] [place] [address] GLUCOSE Canceled Normal [facility] Comment on above: Order Comment: TEST COMPREHENSIVE PANEL WAS CANCELLED, 02/21/2022 14:13 Cancelled per Zofia. Performed By: #### C MP #### [address] [place] [address] POTASSIUM Canceled Normal [facility] Comment on above: Order Comment: TEST COMPREHENSIVE PANEL WAS CANCELLED, 02/21/2022 14:13 Cancelled per Zofia. Performed By: #### C MP #### [address] [place] [address] SODIUM Canceled [facility] Comment on above: Order Comment: TEST COMPREHENSIVE PANEL WAS CANCELLED, 02/21/2022 14:13 Cancelled per Zofia. Performed By: #### C MP #### [address] [place] [address] TOTAL PROTEIN Canceled [facility] Comment on above: Order Comment: TEST COMPREHENSIVE PANEL WAS CANCELLED, 02/21/2022 14:13 Cancelled per Zofia. Performed By: #### C MP #### [address] [place] [address] UREA NITROGEN Canceled Normal [facility] Comment on above: Order Comment: TEST COMPREHENSIVE PANEL WAS CANCELLED, 02/21/2022 14:13 Cancelled per Zofia. Performed By: #### C MP #### [address] [place] [address] LDHon 02-21-2022 LDH Canceled [facility] Comment on above: Order Comment: TEST LDH WAS CANCELLED, 02/21/2022 14:13 Cancelled per Zofia. Performed By: #### L DH #### [facility] [address] [place] [address] CBC AUTO DIFFon 02-20-2022 BASO # 0.0 103/ul Normal 0.0-0.1 [facility] Comment on above: Performed By: #### C BC #### [facility] [address] [place] [address] Dr. Ladan Mcdonald Basophils/100 WBC (Bld) 0.6 % Normal 0.2-2.0 [facility] Comment on above: Performed By: #### C BC #### [facility] [address] [place] [address] Dr. Ladan Mcdonald EO # 0.1 103/ul Normal 0.0-0.7 [facility] Comment on above: Performed By: #### C BC #### [facility] [address] [place] [address] Dr. Ladan Mcdonald Eosinophils/100 WBC (Bld) 2.0 % Normal 0.9-7.0 [facility] Comment on above: Performed By: #### C BC #### [facility] [address] [place] [address] Dr. Ladan Mcdonald Erythrocyte distribution width (RBC) [Ratio] 15.4 % Critically high 11.0-15.0 [facility] Comment on above: Performed By: #### C BC #### [facility] [address] [place] [address] Dr. Ladan Mcdonald Hematocrit (Bld) [Volume fraction] 44.7 % Normal 42.0-54.0 [facility] Comment on above: Performed By: #### C BC #### [facility] [address] [place] [address] Dr. Ladan Mcdonald Hemoglobin (Bld) [Mass/Vol] 14.3 g/dL Normal 14.0-18.0 [facility] Comment on above: Performed By: #### C BC #### [facility] [address] [place] [address] Dr. Ladan Mcdonald IG # 0.02 10e3/ul Normal 0.00-0.03 [facility] Comment on above: Performed By: #### C BC #### [facility] [address] [place] [address] Dr. Ladan Mcdonald IG % 0.6 % Critically high 0.0-0.5 [facility] Comment on above: Performed By: #### C BC #### [facility] [facility] [address] [place] [address] Dr. Ladan Mcdonald LYMPH # 0.9 103/ul Critically low 1.2-3.8 [facility] Comment on above: Performed By: #### C BC #### [facility] [address] [place] [address] Dr. Ladan Mcdonald Lymphocytes/100 WBC (Bld) 26.6 % Normal 20.5-60.0 [facility] Comment on above: Performed By: #### C BC #### [facility] [address] [place] [address] Dr. Ladan Mcdonald MANUAL DIFF REQ NO Normal [facility] Comment on above: Performed By: #### C BC #### [facility] [address] [place] [address] Dr. Ladan Mcdonald MCH (RBC) [Entitic mass] 26.2 pg Normal 25.9-34.0 [facility] Comment on above: Performed By: #### C BC #### [facility] [address] [place] [address] Dr. Ladan Mcdonald MCHC (RBC) [Mass/Vol] 32.0 g/dL Normal 29.9-35.2 [facility] Comment on above: Performed By: #### C BC #### [facility] [address] [place] [address] Dr. Ladan Mcdonald MCV (RBC) [Entitic vol] 82.0 fL Normal 80.0-94.0 [facility] Comment on above: Performed By: #### C BC #### [facility] [address] [place] [address] Dr. Ladan Mcdonald MONO # 0.3 103/ul Normal 0.3-0.8 [facility] Comment on above: Performed By: #### C BC #### [facility] [address] [place] [address] Dr. Ladan Mcdonald Monocytes/100 WBC (Bld) 8.9 % Normal 1.7-12.0 [facility] Comment on above: Performed By: #### C BC #### [facility] [address] [address] [address] Ladan Mcdonald NEUT # 2.2 103/ul Normal 1.4-6.5 [facility] Comment on above: Performed By: #### C BC #### [facility] [address] [address] [address] Ladan Mcdonald Neutrophils/100 WBC (Bld) 61.3 % Normal 43.0-75.0 [facility] Comment on above: Performed By: #### C BC #### [facility] [address] [address] [address] Ladan Mcdonald Platelet mean volume (Bld) [Entitic vol] 9.7 fL Normal 9.5-13.5 [facility] Comment on above: Performed By: #### C BC #### [facility] [address] [address] [address] Ladan Mcdonald PLT 115 103/ul Critically low 150-450 [facility] Comment on above: Performed By: #### C BC #### [facility] [address] [address] [address] Ladan Mcdonald RBC 5.45 106/ul Normal 4.70-6.10 [facility] Comment on above: Performed By: #### C BC #### [facility] [address] [address] [address] Ladan Mcdonald WBC 3.5 103/ul Critically low 4.0-11.0 [facility] Comment on above: Performed By: #### C BC #### [facility] [address] [address] [address] Ladan Mcdonald PROF 14(COMP METB)on 022 Albumin [Mass/Vol] 3.7 g/dL Normal 3.4-5.0 [facility] Comment on above: Performed By: #### M G, LDH, CMP #### [facility] [address] [address] [address] Ladan Mcdonald Albumin/Globulin [Mass ratio] 1.1 {ratio} Normal [facility] Comment on above: Performed By: #### M G, LDH, CMP #### [facility] [address] [address] [address] Ladan Mcdonald ALP [Catalytic activity/Vol] 121 U/L Critically high 46-116 [facility] Comment on above: Performed By: #### M G, LDH, CMP #### [facility] [address] [address] [address] Ladan Mcdonald ALT [Catalytic activity/Vol] 55 U/L Normal 16-63 [facility] Comment on above: Performed By: #### M G, LDH, CMP #### [facility] [address] [address] [address] Ladan Mcdonald Anion gap [Moles/Vol] 11.7 mmol/L Normal [facility] Comment on above: Performed By: #### M G, LDH, CMP #### [facility] [address] [address] [address] Ladan Mcdonald AST [Catalytic activity/Vol] 40 U/L Critically high 15-37 [facility] Comment on above: Performed By: #### M G, LDH, CMP #### [facility] [address] [address] [address] Ladan Mcdonald Bilirubin [Mass/Vol] 0.5 mg/dL Normal 0.2-1.0 [facility] Comment on above: Performed By: #### M G, LDH, CMP #### [facility] [address] [address] [address] Ladan Mcdonald Calcium [Mass/Vol] 9.2 mg/dL Normal 8.5-10.1 [facility] Comment on above: Performed By: #### M G, LDH, CMP #### [facility] [address] [address] [address] Ladan Mcdonald Chloride [Moles/Vol] 107 mmol/L Normal 98-107 [facility] Comment on above: Performed By: #### M G, LDH, CMP #### [facility] [address] [address] [address] Ladan Mcdonald CO2 [Moles/Vol] 28.3 mmol/L Normal 21.0-32.0 [facility] Comment on above: Performed By: #### M G, LDH, CMP #### [facility] [address] [place] [address] Dr. Ladan Mcdonald Creatinine [Mass/Vol] 1.97 mg/dL Critically high 0.70-1.30 [facility] Comment on above: Performed By: #### M G, LDH, CMP #### [facility] [address] [place] [address] Dr. Ladan Mcdonald EGFR-AF GHANAIAN 42 mL/min/1.73m2 Critically low >=60 [facility] Comment on above: Performed By: #### M G, LDH, CMP #### [facility] [address] [place] [address] Dr. Ladan Mcdonald EGFR-NON AF GHANAIAN 35 mL/min/1.73m2 Critically low >=60 [facility] Comment on above: Performed By: #### M G, LDH, CMP #### [facility] [address] [place] [address] Dr. Ladan Mcdonald Globulin (S) [Mass/Vol] 3.5 g/dL Normal [facility] Comment on above: Performed By: #### M G, LDH, CMP #### [facility] [address] [place] [address] Dr. Ladan Mcdonald Glucose [Mass/Vol] 114 mg/dL Critically high 74-106 [facility] Comment on above: Performed By: #### M G, LDH, CMP #### [facility] [address] [place] [address] Dr. Ladan Mcdonald Potassium [Moles/Vol] 4.0 mmol/L Normal 3.5-5.1 [facility] Comment on above: Performed By: #### M G, LDH, CMP #### [facility] [address] [place] [address] Dr. Ladan Mcdonald Protein [Mass/Vol] 7.2 g/dL Normal 6.4-8.2 [facility] Comment on above: Performed By: #### M G, LDH, CMP #### [facility] [address] [place], [place] [address] Dr. Ladan Mcdonald Sodium [Moles/Vol] 143 mmol/L Normal 136-145 [facility] Comment on above: Performed By: #### M G, LDH, CMP #### [facility] [address] [address] [address] Ladan Mcdonald Urea nitrogen [Mass/Vol] 26.0 mg/dL Critically high 7.0-18.0 [facility] Comment on above: Performed By: #### M G, LDH, CMP #### [facility] [address] [place], [place] [address] Dr. Ladan Mcdonald Urea nitrogen/Creatinine [Mass ratio] 13.2 mg/mg Normal [facility] Comment on above: Performed By: #### M G, LDH, CMP #### [facility] [address] [address] [address] Ladan Mcdonald CBC AND DIFFERENTIALon 11-14 % AUTOMATED IMMATURE GRAN 1.2 % High 0.0 - 0.9 [facility] Comment on above: Result Comment: Caryn ture Granulocyte Count (IG) includes promyelocytes, myelocytes and metamyelocytes but does not include bands. Percent differential counts (%) should be interpreted in the context of the absolute cell counts (cells/L). Performed By: #### C BCDF #### [address] [address] Basophils (Bld) [#/Vol] 0.01 10*3/uL Normal 0.00 - 0.10 [facility] Comment on above: Performed By: #### C BCDF #### [address] [address] Basophils/100 WBC (Bld) 0.2 % Normal 0.0 - 2.0 [facility] [place] [facility] Comment on above: Performed By: #### C BCDF #### [address] [address] Eosinophils (Bld) [#/Vol] 0.04 10*3/uL Normal 0.00 - 0.70 [facility] [place] Comment on above: Performed By: #### C BCDF #### [address] [place] [address] Eosinophils/100 WBC (Bld) 1.0 % Normal 0.0 - 6.0 [facility] [place] Comment on above: Performed By: #### C BCDF #### [address] [place] [address] Erythrocyte distribution width (RBC) [Ratio] 15.0 % High 11.5 - 14.5 [facility] [place] Comment on above: Performed By: #### C BCDF #### [address] [place] [address] Hematocrit (Bld) [Volume fraction] 48.2 % Normal 41.0 - 52.0 [facility] [place] Comment on above: Performed By: #### C BCDF #### [address] [place] [address] Hemoglobin (Bld) [Mass/Vol] 14.9 g/dL Normal 13.5 - 17.5 [facility] [place] Comment on above: Performed By: #### C BCDF #### [address] [address] Lymphocytes (Bld) [#/Vol] 1.26 10*3/uL Normal 1.20 - 4.80 [facility] [place] Comment on above: Performed By: #### C BCDF #### [address] [place] [address] Lymphocytes/100 WBC (Bld) 30.2 % Normal 13.0 - 44.0 [facility] [place] Comment on above: Performed By: #### C BCDF #### [address] [place] [address] MCHC (RBC) [Mass/Vol] 30.9 g/dL Low 32.0 - 36.0 [facility] [place] [place] Comment on above: Performed By: #### C BCDF #### [address] [place] [address] MCV (RBC) [Entitic vol] 84 fL Normal 80 - 100 [facility] [place] Comment on above: Performed By: #### C BCDF #### [address] [address] Monocytes (Bld) [#/Vol] 0.36 10*3/uL Normal 0.10 - 1.00 [facility] [place] Comment on above: Performed By: #### C BCDF #### [address] [address] Monocytes/100 WBC (Bld) 8.6 % Normal 2.0 - 10.0 [facility] [place] Comment on above: Performed By: #### C BCDF #### [address] [address] Neutrophils (Bld) [#/Vol] 2.45 10*3/uL Normal 1.20 - 7.70 [facility] [place] Comment on above: Performed By: #### C BCDF #### [address] [address] Neutrophils/100 WBC (Bld) 58.8 % Normal 40.0 - 80.0 [facility] [place] Comment on above: Performed By: #### C BCDF #### [address] [address] NUCLEATED RBC 0.0 /100 WBC Normal 0.0 - 0.0 [facility] [place] Comment on above: Performed By: #### C BCDF #### [address] [address] Platelets (Bld) [#/Vol] 138 10*3/uL Low 150 - 450 [facility] [place] Comment on above: Performed By: #### C BCDF #### [address] [address] RBC 5.71 x10E12/L Normal 4.50 - 5.90 [facility] [place] Comment on above: Performed By: #### C BCDF #### [address] [address] WBC (Bld) [#/Vol] 4.2 10*3/uL Low 4.4 - 11.3 [facility] [place] [place] Comment on above: Performed By: #### C BCDF #### [address] [place] [address] COMPREHENSIVE PANELon 2021 Albumin [Mass/Vol] 4.3 g/dL Normal 3.4 - 5.0 [facility] [place] [place] Comment on above: Performed By: #### C MP #### [address] [address] ALP [Catalytic activity/Vol] 89 U/L Normal 33 - 136 [facility] [place] Comment on above: Performed By: #### C MP #### [address] [address] ALT [Catalytic activity/Vol] 43 U/L Normal 10 - 52 [facility] [place] Comment on above: Result Comment: Yisel ents treated with Sulfasalazine may generate falsely decreased results for ALT. Performed By: #### C MP #### [address] [address] Anion gap [Moles/Vol] 11 mmol/L Normal 10 - 20 [facility] [place] Comment on above: Performed By: #### C MP #### [address] [address] AST [Catalytic activity/Vol] 31 U/L Normal 9 - 39 [facility] [place] Comment on above: Performed By: #### C MP #### [address] [address] Bilirubin [Mass/Vol] 0.7 mg/dL Normal 0.0 - 1.2 [facility] [place] Comment on above: Performed By: #### C MP #### [address] [address] Calcium [Mass/Vol] 9.5 mg/dL Normal 8.6 - 10.3 [facility] [place] [place] Comment on above: Performed By: #### C MP #### [address] [address] Chloride [Moles/Vol] 105 mmol/L Normal 98 - 107 [facility] [place] Comment on above: Performed By: #### C MP #### [address] [address] Creatinine [Mass/Vol] 1.76 mg/dL High 0.50 - 1.30 [facility] [place] [place] Comment on above: Performed By: #### C MP #### [address] [address] GFR/1.73 sq M.predicted among non-blacks MDRD (S/P/Bld) [Vol rate/Area] 43 mL/min/{1.73_m2} Abnormal >90 [facility] [place] Comment on above: Result Comment: CALC ULATIONS OF ESTIMATED GFR ARE PERFORMED USING THE 2020 CKD-EPI STUDY REFIT EQUATION WITHOUT THE RACE VARIABLE FOR THE IDMS-TRACEABLE CREATININE METHODS. https://jasn.asnjournals.org/content/early/ASN.842233 0785 Performed By: #### C MP #### [address] [address] Glucose [Mass/Vol] 117 mg/dL High 74 - 99 [facility] [place] [place] Comment on above: Performed By: #### C MP #### [address] [address] HCO3 (Bld) [Moles/Vol] 27 mmol/L Normal 21 - 32 [facility] [place] Comment on above: Performed By: #### C MP #### [address] [address] Potassium [Moles/Vol] 4.3 mmol/L Normal 3.5 - 5.3 [facility] [place] Comment on above: Performed By: #### C MP #### [address] [address] Protein [Mass/Vol] 7.0 g/dL Normal 6.4 - 8.2 [facility] [place] [place] Comment on above: Performed By: #### C MP #### [address] [address] Sodium [Moles/Vol] 139 mmol/L Normal 136 - 145 [facility] [place] [place] Comment on above: Performed By: #### C MP #### [address] [address] Urea nitrogen [Mass/Vol] 23 mg/dL Normal 6 - 23 [facility] [place] Comment on above: Performed By: #### C MP #### [facility] [address] [facility] 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 COMPARISON: CT chest 06/13/2020; CT abdomen pelvis dated 01/02/2019 ACCESSION NUMBER(S): [id number] ORDERING CLINICIAN: ANIRUDH SEARS TECHNIQUE: CT of [...] spleen. Electronically signed by: FRANK GRAVES MD [facility] CT SINUS W CONTRASTon 2021 CT SINUS W CONTRAST Patient Name: KATERINA DANIELLE STUDY: CT NECK WITH CONTRAST; CT SINUS W CONTRAST; 11/14/2021 10:51 am INDICATION: HX DLBCL new sinus symptoms, same location as prior occurence 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 COMPARISON: June 2018. ACCESSION NUMBER(S): [id number]; [id number] ORDERING CLINICIAN: ANIRUDH SEARS TECHNIQUE: Following intravenous [...] the neck. THIS EXAMINATION WAS INTERPRETED AT [facility] [place] Electronically signed by: DEANDRE PENG MD Normal [facility] [place] NR CT NECK WITH CONTRASTon 0 11-14-[address] NECK WITH CONTRAST Patient Name: KATERINA DANIELLE STUDY: CT NECK WITH CONTRAST; CT SINUS W CONTRAST; 11/14/2021 10:51 am INDICATION: HX DLBCL new sinus symptoms, same location as prior occurence 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 COMPARISON: June 2018. ACCESSION NUMBER(S): [id number]; [id number] ORDERING CLINICIAN: ANIRUDH SEARS TECHNIQUE: Following intravenous [...] the neck. THIS EXAMINATION WAS INTERPRETED AT [facility] [place] Electronically signed by: DEANDRE PENG MD Normal [facility] [place] Tobacco Screening.on 022 Fall risk assessment a) No falls within the last year [facility] 3 DO Work Phone: Tobacco use status CPHS b) No [facility] 3 DO Work Phone: Complete Blood Count + Diffe rentialon 05-21-2021 Basophils/100 WBC (Bld) 0.5 % 0.0 - 2.0 [employer] DO Work Phone: Erythrocyte distribution width (RBC) [Ratio] 15.6 % above high threshold See Below [employer] DO Work Phone: Comment on above: Reference Range: 11. 5 - 14.5 Hematocrit (Bld) [Volume fraction] 46.6 % See Below [employer] DO Work Phone: Comment on above: Reference Range: 41. 0 - 52.0 Hemoglobin (Bld) [Mass/Vol] 14.8 g/dL See Below [employer] 2100 DO Work Phone: Comment on above: Reference Range: 13. 5 - 17.5 Lymphocytes/100 WBC (Bld) 27.6 % See Below [employer] DO Work Phone: Comment on above: Reference Range: 13. 0 - 44.0 MCHC (RBC) [Mass/Vol] 31.8 g/dL below low threshold See Below [employer] DO Work Phone: Comment on above: Reference Range: 32. 0 - 36.0 MCV (RBC) [Entitic vol] 87 fL 80 - 100 [employer] DO Work Phone: Monocytes/100 WBC (Bld) 6.7 % 2.0 - 10.0 [facility] 2100 DO Work Phone: Neutrophils/100 WBC (Bld) 62.6 % See Below [facility] 2100 DO Work Phone: Comment on above: Reference Range: 40. 0 - 80.0 Platelets (Bld) [#/Vol] 138 10*3/uL below low threshold 150 - 450 [facility] 2100 DO Work Phone: RBC (Bld) [#/Vol] 5.37 {x10E12/L} See Below [facility] 2100 DO Work Phone: Comment on above: Reference Range: 4.5 0 - 5.90 WBC (Bld) [#/Vol] 4.2 10*3/uL below low threshold 4.4 - 11.3 [facility] 2100 DO Work Phone: Complete Blood Count + Differential 0.02 {x10E9/L} See Below [facility] [facility] 2100 DO Work Phone: Comment on above: Reference Range: 0.0 0 - 0.10 Complete Blood Count + Differential 0.08 {x10E9/L} See Below [facility] [facility] 2100 DO Work Phone: Comment on above: Reference Range: 0.0 0 - 0.70 Complete Blood Count + Differential 0.28 {x10E9/L} See Below [facility] 2100 DO Work Phone: Comment on above: Reference Range: 0.1 0 - 1.00 Complete Blood Count + Differential 1.15 {x10E9/L} below low threshold See Below [facility] 2100 DO Work Phone: Comment on above: Reference Range: 1.2 0 - 4.80 Complete Blood Count + Differential 2.60 {x10E9/L} See Below [facility] 2100 DO Work Phone: Comment on above: Reference Range: 1.2 0 - 7.70 Complete Blood Count + Differential 1.9 % 0.0 - 6.0 [facility] Work Phone: Complete Blood Count + Differential 0.7 % 0.0 - 0.9 [facility] 2100 DO Work Phone: Comment on above: Immature Granulocyte Count (IG) includes promyelocytes, myelocytes and metamyelocytes but does not include bands. Percent differential counts (%) should be interpreted in the context of the absolute cell counts (cells/L). Immunoglobulin G Level, Seru [facility] 05-21-2021 IgG [Mass/Vol] 1100 mg/dL 700 - 1600 [facility] dinora[facility] 2099 DO Work Phone: Comment on above: MONOCLONAL PROTEINS MAY CAUSE FALSELY LOWRESULTS IN THIS ASSAY. SERUM PROTEINELECTROPHORESIS SHOULD BE DONE THEFIRST TEST TO EVALUATE MONOCLONAL GAMMOPATHY. Laboratory - Chemistry and C hemistry - challengeon 05-21-2021 Albumin BCP dye [Mass/Vol] 4.2 g/dL 3.4 - 5.0 -[facility] 2100 DO Work Phone: ALP [Catalytic activity/Vol] 86 U/L 33 - 136 [facility] 2099 DO Work Phone: ALT With P-5'-P [Catalytic activity/Vol] 32 U/L 10 - 52 -[facility] 2099 DO Work Phone: Comment on above: Patients treated wit h Sulfasalazine may generate falsely decreased results for ALT. Anion gap [Moles/Vol] 11 mmol/L 10 - 20 - [facility] 2100 DO Work Phone: AST With P-5'-P [Catalytic activity/Vol] 28 U/L 9 - 39 -[facility] 2100 DO Work Phone: Bilirubin [Mass/Vol] 0.6 mg/dL 0.0 - 1.2 [facility] 2100 DO Work Phone: Calcium [Mass/Vol] 9.2 mg/dL 8.6 - 10.3 [facility] 2100 DO Work Phone: [phone] Chloride [Moles/Vol] 107 mmol/L 98 - 107 [facility] 2100 DO Work Phone: CO2 [Moles/Vol] 27 mmol/L 21 - 32 [facility] 2100 DO Work Phone: Creatinine [Mass/Vol] 1.77 mg/dL above high threshold See Below [facility] 2100 DO Work Phone: Comment on above: Reference Range: 0.5 0 - 1.30 Glucose [Mass/Vol] 99 mg/dL 74 - 99 [facility] 2100 DO Work Phone: Potassium [Moles/Vol] 4.5 mmol/L 3.5 - 5.3 [facility] 2100 DO Work Phone: Protein [Mass/Vol] 7.0 g/dL 6.4 - 8.2 [facility] 2100 DO Work Phone: Sodium [Moles/Vol] 140 mmol/L 136 - 145 [facility] 2100 DO Work Phone: Urea nitrogen [Mass/Vol] 22 mg/dL 6 - 23 [facility] 2100 DO Work Phone: No Panel Informationon 05-21 47 {mL/min/1.73m2} Abnormal >60 [facility] 2100 DO Work Phone: Comment on above: CALCULATIONS OF KATIE MATED GFR ARE PERFORMED USING THE MDRD STUDY EQUATION FOR THE IDMS-TRACEABLE CREATININE METHODS. CLIN CHEM 2007;53:766-72 39 {mL/min/1.73m2} Abnormal >60 [facility] 2100 DO Work Phone: CBC AND DIFFERENTIALon 01-20 % AUTOMATED IMMATURE GRAN 1.9 % High 0.0 - 0.9 [facility] Comment on above: Result Comment: Caryn ture Granulocyte Count (IG) includes promyelocytes, myelocytes and metamyelocytes but does not include bands. Percent differential counts (%) should be interpreted in the context of the absolute cell counts (cells/L). Performed By: #### C BCDF #### [address] [address] Basophils (Bld) [#/Vol] 0.02 10*3/uL Normal 0.00 - 0.10 [facility] Comment on above: Performed By: #### C BCDF #### [address] [address] Basophils/100 WBC (Bld) 0.5 % Normal 0.0 - 2.0 [facility] Comment on above: Performed By: #### C BCDF #### [address] [address] Eosinophils (Bld) [#/Vol] 0.25 10*3/uL Normal 0.00 - 0.70 [facility] Comment on above: Performed By: #### C BCDF #### [address] [address] Eosinophils/100 WBC (Bld) 6.0 % Normal 0.0 - 6.0 [facility] Comment on above: Performed By: #### C BCDF #### [address] [address] Erythrocyte distribution width (RBC) [Ratio] 14.2 % Normal 11.5 - 14.5 [facility] Comment on above: Performed By: #### C BCDF #### [address] [address] Hematocrit (Bld) [Volume fraction] 46.7 % Normal 41.0 - 52.0 [facility] Comment on above: Performed By: #### C BCDF #### [address] [address] Hemoglobin (Bld) [Mass/Vol] 14.8 g/dL Normal 13.5 - 17.5 [facility] Comment on above: Performed By: #### C BCDF #### [address] [address] Lymphocytes (Bld) [#/Vol] 1.10 10*3/uL Low 1.20 - 4.80 [facility] Comment on above: Performed By: #### C BCDF #### [address] [address] Lymphocytes/100 WBC (Bld) 26.6 % Normal 13.0 - 44.0 [facility] Comment on above: Performed By: #### C BCDF #### [address] [address] MCHC (RBC) [Mass/Vol] 31.7 g/dL Low 32.0 - 36.0 [facility] Comment on above: Performed By: #### C BCDF #### [address] [address] MCV (RBC) [Entitic vol] 85 fL Normal 80 - 100 [facility] Comment on above: Performed By: #### C BCDF #### [address] [address] Monocytes (Bld) [#/Vol] 0.48 10*3/uL Normal 0.10 - 1.00 [facility] Comment on above: Performed By: #### C BCDF #### [address] [address] Monocytes/100 WBC (Bld) 11.6 % Normal 2.0 - 10.0 [facility] Comment on above: Performed By: #### C BCDF #### [address] [address] Neutrophils (Bld) [#/Vol] 2.21 10*3/uL Normal 1.20 - 7.70 [facility] Comment on above: Performed By: #### C BCDF #### [address] [address] Neutrophils/100 WBC (Bld) 53.4 % Normal 40.0 - 80.0 [facility] Comment on above: Performed By: #### C BCDF #### [address] [address] Platelets (Bld) [#/Vol] 122 10*3/uL Low 150 - 450 [facility] Comment on above: Performed By: #### C BCDF #### [address] [address] RBC (Bld) [#/Vol] 5.47 x10E12/L Normal 4.50 - 5.90 [facility] Comment on above: Performed By: #### C BCDF #### [address] [address] WBC (Bld) [#/Vol] 4.1 10*3/uL Low 4.4 - 11.3 [facility] Comment on above: Performed By: #### C BCDF #### [address] [address] COMPREHENSIVE PANELon 2019 Albumin [Mass/Vol] 4.7 g/dL Normal 3.4 - 5.0 [facility] Comment on above: Performed By: #### P HOS #### [address] [address] ALP [Catalytic activity/Vol] 186 U/L High 33 - 120 [facility] Comment on above: Performed By: #### P HOS #### [address] [address] ALT [Catalytic activity/Vol] 46 U/L Normal 10 - 52 [facility] Comment on above: Result Comment: Yisel ents treated with Sulfasalazine may generate falsely decreased results for ALT. Performed By: #### P HOS #### [address] [address] Anion gap [Moles/Vol] 11 mmol/L Normal 10 - 20 [facility] Comment on above: Performed By: #### P HOS #### [address] [address] AST [Catalytic activity/Vol] 30 U/L Normal 9 - 39 [facility] Comment on above: Performed By: #### P HOS #### [address] [address] Bilirubin [Mass/Vol] 0.6 mg/dL Normal 0.0 - 1.2 [facility] Comment on above: Performed By: #### P HOS #### [address] [address] Calcium [Mass/Vol] 9.2 mg/dL Normal 8.6 - 10.3 [facility] Comment on above: Performed By: #### P HOS #### [address] [address] Chloride [Moles/Vol] 106 mmol/L Normal 98 - 107 [facility] Comment on above: Performed By: #### P HOS #### [address] [address] Creatinine [Mass/Vol] 1.90 mg/dL High 0.50 - 1.30 [facility] Comment on above: Performed By: #### P HOS #### [address] [address] GFR- AM. 44 mL/min/1.73m2 Abnormal >60 [facility] Comment on above: Result Comment: CALC ULATIONS OF ESTIMATED GFR ARE PERFORMED USING THE MDRD STUDY EQUATION FOR THE IDMS-TRACEABLE CREATININE METHODS. CLIN CHEM 2007;53:766-72 Performed By: #### P HOS #### [address] [address] GFR-NON AM. 36 mL/min/1.73m2 Abnormal >60 [facility] Comment on above: Performed By: #### P HOS #### [address] [address] Glucose [Mass/Vol] 62 mg/dL Low 74 - 99 [facility] Comment on above: Performed By: #### P HOS #### [address] [address] HCO3 (Bld) [Moles/Vol] 29 mmol/L Normal 21 - 32 [facility] Comment on above: Performed By: #### P HOS #### [address] [address] Potassium [Moles/Vol] 4.1 mmol/L Normal 3.5 - 5.3 [facility] Comment on above: Performed By: #### P HOS #### [address] [address] Protein [Mass/Vol] 6.5 g/dL Normal 6.4 - 8.2 [facility] Comment on above: Performed By: #### P HOS #### [address] [address] Sodium [Moles/Vol] 142 mmol/L Normal 136 - 145 [facility] Comment on above: Performed By: #### P HOS #### [address] [address] Urea nitrogen [Mass/Vol] 23 mg/dL Normal 6 - 23 [facility] Comment on above: Performed By: #### P HOS #### [address] [address] LDHon 01-21-2020 LDH 246 U/L Normal 84 - 246 [facility] Comment on above: Performed By: #### P HOS #### [address] [address] PARATHYROID HORMONE,INTACTon 01-21-2020 PARATHYROID HORMONE,INTACT 105.7 pg/mL High 18.5 - 88.0 [facility] Comment on above: Result Comment: Yisel ents receiving more than 5 mg/day of biotin may have interference in test results. A sample should be taken no sooner than eight hours after previous dose. Contact the testing laboratory for additional information. Performed By: #### P HOS #### [address] [address] PHOSPHORUSon 01-21-2020 Phosphate [Mass/Vol] 2.8 mg/dL Normal 2.5 - 4.9 [facility] Comment on above: Result Comment: The performance characteristics of phosphorus testing in heparinized plasma have been validated by the individual laboratory site where testing is performed. Testing on heparinized plasma is not approved by the FDA; however, such approval is not necessary. Performed By: #### P HOS #### [address] [address] URIC ACIDon 01-21-2020 Urate [Mass/Vol] 5.9 mg/dL Normal 4.0 - 7.5 [facility] Comment on above: Result Comment: Anabell puncture immediately after or during the administration of Metamizole may lead to falsely low results. Testing should be performed immediately prior to Metamizole dosing. Performed By: #### P HOS #### [address] [address] BASIC METABOLIC PANELon 11-2 Anion gap [Moles/Vol] 11 mmol/L Normal 10 - 20 [facility] Comment on above: Performed By: #### B MP #### [address] [address] Calcium [Mass/Vol] 9.0 mg/dL Normal 8.6 - 10.3 [facility] Comment on above: Performed By: #### B MP #### [address] [address] Chloride [Moles/Vol] 109 mmol/L High 98 - 107 [facility] Comment on above: Performed By: #### B MP #### [address] [address] Creatinine [Mass/Vol] 1.92 mg/dL High 0.50 - 1.30 [facility] Comment on above: Performed By: #### B MP #### [address] [address] GFR- AM. 44 mL/min/1.73m2 Abnormal >60 [facility] Comment on above: Result Comment: CALC ULATIONS OF ESTIMATED GFR ARE PERFORMED USING THE MDRD STUDY EQUATION FOR THE IDMS-TRACEABLE CREATININE METHODS. CLIN CHEM 2007;53:766-72 Performed By: #### B MP #### [address] [address] GFR-NON AM. 36 mL/min/1.73m2 Abnormal >60 [facility] Comment on above: Performed By: #### B MP #### [address] [address] Glucose [Mass/Vol] 64 mg/dL Low 74 - 99 [facility] Comment on above: Performed By: #### B MP #### [address] [address] HCO3 (Bld) [Moles/Vol] 27 mmol/L Normal 21 - 32 [facility] Comment on above: Performed By: #### B MP #### [address] [address] Potassium [Moles/Vol] 4.1 mmol/L Normal 3.5 - 5.3 [facility] Comment on above: Performed By: #### B MP #### [address] [address] Sodium [Moles/Vol] 143 mmol/L Normal 136 - 145 [facility] Comment on above: Performed By: #### B MP #### [address] [address] Urea nitrogen [Mass/Vol] 27 mg/dL High 6 - 23 [facility] Comment on above: Performed By: #### B MP #### [address] [address] Metabolic Panelon 07-27-2019 Anion gap [Moles/Vol] 11 mmol/L 10 - 20 [facility] Work Phone: Calcium [Mass/Vol] 9.0 mg/dL 8.6 - 10.3 [facility] Work Phone: Chloride [Moles/Vol] 109 mmol/L above high threshold 98 - 107 [facility] Work Phone: CO2 [Moles/Vol] 27 mmol/L 21 - 32 [facility] Work Phone: Creatinine [Mass/Vol] 1.92 mg/dL above high threshold See Below [facility] Work Phone: Comment on above: Reference Range: 0.5 0 - 1.30 Glucose [Mass/Vol] 64 mg/dL below low threshold 74 - 99 [facility] Work Phone: Potassium [Moles/Vol] 4.1 mmol/L 3.5 - 5.3 [facility] Work Phone: Sodium [Moles/Vol] 143 mmol/L 136 - 145 [facility] Work Phone: Urea nitrogen [Mass/Vol] 27 mg/dL above high threshold 6 - 23 [facility] Work Phone: Otheron 07-27-2019 Interpreted by: LMYVEB32/27/19 14:38MRN: [id number] Name: KATERINA DANIELLE STUDY: RENAL BILAT; 07/27/2019 [...] signed by: CHELSEA 07/28/19 14:38 Normal [facility] Work Phone: 44 {mL/min/1.73m2} Abnormal >60 [facility] Work Phone: Comment on above: CALCULATIONS OF KATIE MATED GFR ARE PERFORMED USING THE MDRD STUDY EQUATION FOR THE IDMS-TRACEABLE CREATININE METHODS. CLIN CHEM 2007;53:766-72 36 {mL/min/1.73m2} Abnormal >60 [facility] Work Phone: Please click on the link to view the study images Normal -[facility] Work Phone: PARATHYROID HORMONE,INTACTon 07-27-2019 PARATHYROID HORMONE,INTACT 117.6 pg/mL High 18.5 - 88.0 [facility] Comment on above: Result Comment: Yisel ents receiving more than 5 mg/day of biotin may have interference in test results. A sample should be taken no sooner than eight hours after previous dose. Contact the testing laboratory for additional information. Performed By: #### P TH #### [address] [address] PHOSPHORUSon 07-27-2019 Phosphate [Mass/Vol] 2.7 mg/dL Normal 2.5 - 4.9 [facility] Comment on above: Result Comment: The performance characteristics of phosphorus testing in heparinized plasma have been validated by the individual laboratory site where testing is performed. Testing on heparinized plasma is not approved by the FDA; however, such approval is not necessary. Performed By: #### P HOS #### [address] [address] Parathormone Intact, Serumon 07-27-2019 Parathyrin.intact [Mass/Vol] 117.6 pg/mL above high threshold See Below [facility] Work Phone: Comment on above: Reference Range: 18. 5 - 88.0 Patients receiving more than 5 mg/day of biotin may have interference in test results. A sample should be taken no sooner than eight hours after previous dose. Contact the testing laboratory for additional information. Phosphorus, Serumon 07-27-20 19 Phosphate [Mass/Vol] 2.7 mg/dL 2.5 - 4.9 [facility] Work Phone: Comment on above: The performance marie acteristics of phosphorus testing in heparinized plasma have been validated by the individual laboratory site where testing is performed. Testing on heparinized plasma is not approved by the FDA; however, such approval is not necessary. TOTAL PROTEIN, URINE SPOTon 07-27-2019 CREATININE,URINE 167.0 mg/dL Normal 20.0 - 370.0 [facility] Comment on above: Performed By: #### T PS2 #### [address] [address] T. PROTEIN/CREAT RATIO 0.37 mg/mg Creat High 0.00 - 0.17 [facility] Comment on above: Performed By: #### T PS2 #### [address] [address] TOTAL PROT,URINE SPOT 61 mg/dL High 5 - 25 [facility] Comment on above: Performed By: #### T PS2 #### [address] [address] Total Protein, Urine Spoton 07-27-2019 Creatinine (U) [Mass/Vol] 167.0 mg/dL See Below [facility] Work Phone: Comment on above: Reference Range: 20. 0 - 370.0 Protein/Creatinine (U) [Ratio] 0.37 {mg/mg_Creat} above high threshold See Below [facility] Work Phone: Comment on above: Reference Range: 0.0 0 - 0.17 Total Protein, Urine Spot 61 mg/dL above high threshold 5 - 25 [facility] Work Phone: UA MICROSCOPICon 07-27-2019 MUCUS 1+ /LPF Normal [facility] Comment on above: Performed By: #### U AMIC #### [address] [address] RBC 1 /HPF Normal 0-5 [facility] Comment on above: Performed By: #### U AMIC #### [address] [address] WBC 1 /HPF Normal 0-5 [facility] Comment on above: Performed By: #### U AMIC #### [address] [address] URIC ACIDon 07-27-2019 Urate [Mass/Vol] 5.8 mg/dL Normal 4.0 - 7.5 [facility] Comment on above: Result Comment: Anabell puncture immediately after or during the administration of Metamizole may lead to falsely low results. Testing should be performed immediately prior to Metamizole dosing. Performed By: #### U NIKO #### [address] [address] URINALYSISon 07-27-2019 Appearance (U) CLEAR Normal CLEAR [facility] Comment on above: Performed By: #### U A #### [address] [address] Bilirubin (U) [Mass/Vol] Negative Normal NEGATIVE [facility] Comment on above: Performed By: #### U A #### [address] [address] BLOOD SMALL(1+) Abnormal NEGATIVE [facility] Comment on above: Performed By: #### U A #### [address] [address] Color (U) YELLOW Normal STRAW,YELLO W [facility] Comment on above: Performed By: #### U A #### [address] [address] Glucose [Mass/Vol] Negative Normal NEGATIVE [facility] Comment on above: Performed By: #### U A #### [address] [address] Ketones Ql (U) Negative Normal NEGATIVE [facility] Comment on above: Performed By: #### U A #### [address] [place] [address] Leukocyte esterase Test strip Ql (U) Negative Normal NEGATIVE [facility] Comment on above: Performed By: #### U A #### [address] [address] Nitrite Ql (U) Negative Normal NEGATIVE [facility] Comment on above: Performed By: #### U A #### [address] [address] pH (Bld) 6.0 Normal 5.0 - 8.0 [facility] Comment on above: Performed By: #### U A #### [address] [address] Protein (U) [Mass/Vol] 30 (1+) Abnormal NEGATIVE [facility] Comment on above: Performed By: #### U A #### [address] [address] Specific gravity (U) [Rel density] 1.021 Normal 1.005 - 1.035 [facility] Comment on above: Performed By: #### U A #### [address] [address] Urobilinogen Qn (U) <2.0 Normal 0.0 - 1.9 [facility] Comment on above: Performed By: #### U A #### [address] [address] RENAL BILATon 07-27-2019 RENAL BILAT Patient Name: KATERINA DANIELLE STUDY: US RENAL BILAT; 07/27/2019 2:41 pm INDICATION: CKD, Essential (primary) hypertension, Diffuse large B-cell lymphoma. COMPARISON: None. ACCESSION NUMBER(S): [id number] ORDERING CLINICIAN: CHRISTOPHER WATKINS TECHNIQUE: Multiple images [...] Electronically signed by: GRUPO TRAN MD Normal [facility] Uric Acid, Serumon 9 Urate [Mass/Vol] 5.8 mg/dL 4.0 - 7.5 [facility] Work Phone: Comment on above: Venipuncture immedia tely after or during the administration of Metamizole may lead to falsely low results. Testing should be performed immediately prior to Metamizole dosing. Urinalysison 07-27-2019 Appearance (U) CLEAR CLEAR [facility] Work Phone: Color (U) YELLOW See Below [facility] Work Phone: Comment on above: Reference Range: STR AW,YELLOW Glucose Ql (U) Negative NEGATIVE [facility] Work Phone: Ketones Ql (U) Negative NEGATIVE [facility] Work Phone: Leukocyte esterase Test strip Ql (U) Negative NEGATIVE -[facility] Work Phone: pH (U) 6.0 [pH] 5.0 - 8.0 -[facility] Work Phone: Protein (U) [Mass/Vol] 30 (1+) Abnormal NEGATIVE [facility] Work Phone: RBC (U) [#/Vol] SMALL(1+) Abnormal NEGATIVE [facility] Work Phone: Specific gravity (U) [Rel density] 1.021 See Below -[facility] Work Phone: Comment on above: Reference Range: 1.0 05 - 1.035 Urinalysis Negative NEGATIVE -[facility] Work Phone: Urinalysis <2.0 0.0 - 1.9 [facility] Work Phone: Urinalysis, Microscopicon Urinalysis, Microscopic 1 {/HPF} 0-5 [facility] Work Phone: Urinalysis, Microscopic 1+ [facility] Work Phone: VITAMIN D, 25-HYDROXYon 07-03 VITAMIN D, 25-HYDROXY 66 ng/mL Normal [facility] Comment on above: Result Comment: . DEFICIENCY: < 20 NG/ML INSUFFICIENCY: 20-29 NG/ML OPTIMUM LEVEL: 30-80 NG/ML POSSIBLE TOXICITY: > 80 NG/ML THIS ASSAY ACCURATELY QUANTIFIES THE SUM OF VITAMIN D3, 25-HYDROXY AND VIT D2,25-HYDROXY. Performed By: #### V TDOH #### [address] [address] Vitamin D 25-Hydroxyon 07-27 Calcidiol [Mass/Vol] 66 ng/mL [facility] Work Phone: Comment on above: .DEFICIENCY: < 20 NG /MLINSUFFICIENCY: 20-29 NG/MLOPTIMUM LEVEL: 30-80 NG/MLPOSSIBLE TOXICITY: > 80 NG/MLTHIS ASSAY ACCURATELY QUANTIFIES THE SUM OFVITAMIN D3, 25-HYDROXY AND VIT D2,25-HYDROXY. Complete Blood Count + Diffe rentialon 07-02-2019 Basophils (Bld) [#/Vol] 0.01 {x10E9/L} See Below [facility] Work Phone: Comment on above: Reference Range: 0.0 0 - 0.10 Basophils/100 WBC (Bld) 0.3 % 0.0 - 2.0 [facility] Work Phone: Eosinophils (Bld) [#/Vol] 0.09 {x10E9/L} See Below [employer] Work Phone: 1 Comment on above: Reference Range: 0.0 0 - 0.70 Eosinophils/100 WBC (Bld) 2.8 % 0.0 - 6.0 [employer] Work Phone: Erythrocyte distribution width (RBC) [Ratio] 15.4 % above high threshold See Below [employer] Work Phone: Comment on above: Reference Range: 11. 5 - 14.5 Hematocrit (Bld) [Volume fraction] 43.5 % See Below [employer] Work Phone: Comment on above: Reference Range: 41. 0 - 52.0 Hemoglobin (Bld) [Mass/Vol] 13.6 g/dL See Below [employer] Work Phone: Comment on above: Reference Range: 13. 5 - 17.5 Lymphocytes (Bld) [#/Vol] 0.93 {x10E9/L} below low threshold See Below [employer] Work Phone: Comment on above: Reference Range: 1.2 0 - 4.80 Lymphocytes/100 WBC (Bld) 29.3 % See Below [employer] Work Phone: Comment on above: Reference Range: 13. 0 - 44.0 MCHC (RBC) [Mass/Vol] 31.3 g/dL below low threshold See Below [employer] Work Phone: Comment on above: Reference Range: 32. 0 - 36.0 MCV (RBC) [Entitic vol] 87 fL 80 - 100 [employer] Work Phone: Monocytes (Bld) [#/Vol] 0.28 {x10E9/L} See Below [employer] Work Phone: Comment on above: Reference Range: 0.1 0 - 1.00 Monocytes/100 WBC (Bld) 8.8 % 2.0 - 10.0 [employer] Work Phone: Neutrophils (Bld) [#/Vol] 1.84 {x10E9/L} [...] 9.3 mg/dL 8.6 - 10.6 [facility] [employer] [facility] Work Phone: [phone] Chloride [Moles/Vol] [...] 141 mmol/L 136 - 145 [facility] Work Phone: Urea nitrogen [Mass/Vol] 32 mg/dL above high threshold 6 - 23 [facility] Work Phone: Glucose [Mass/Vol] 93 mg/dL 74 - 99 [facility] [employer] Work Phone: Otheron 07-02-2019 Albumin BCP dye [Mass/Vol] 4.4 g/dL 3.4 - 5.0 [facility] Work Phone: ALT With P-5'-P [Catalytic activity/Vol] 56 U/L above high threshold 10 - 52 [facility] Work Phone: Comment on above: Patients treated wit h Sulfasalazine may generate falsely decreased results for ALT. AST With P-5'-P [Catalytic activity/Vol] 39 U/L 9 - 39 [facility] Work Phone: 46 {mL/min/1.73m2} Abnormal >60 [facility] [employer] Work Phone: Comment on above: CALCULATIONS OF KATIE MATED GFR ARE PERFORMED USING THE MDRD STUDY EQUATION FOR THE IDMS-TRACEABLE CREATININE METHODS. CLIN CHEM 2007;53:766-72 38 {mL/min/1.73m2} Abnormal >60 [facility] [employer] Work Phone: Interpreted by: BENJY VICK07/02/19 12:12MRN: [id number] Name: KATERINA DANIELLE STUDY:PET/CT LYMPHOMA STAGING; 07/02/2019 [...] (SUV) units. CODING:Subsequent Treatment Strategy (PS) CALIBRATION:Dose Mjnulhdus-jh-Lwsu Interval (mins): 54 minMediastinal bloodpool SUV (normal [...] interpretation as stated. [facility]Electronically signed by: DANIAL VICK 07/02/19 12:12 [...] 450 [facility] [facility] Work Phone: [phone] RBC (Bld) [#/Vol] 4.18 {x10E12/L} below [...] 300 [facility] [facility] Work Phone: [phone] Fibrinogen Assayon 9 Fibrinogen Assay 435 mg/dL above high threshold 200 - 400 [facility] [facility] Work Phone: Hematologyon 04-02-2019 aPTT Coag (PPP) [Time] 25 {sec} below low threshold 28 - 38 [facility] [facility] Work Phone: [phone] Comment on above: THE APTT IS NO LONGE R USED FOR MONITORING UNFRACTIONATED HEPARIN THERAPY. FOR MONITORING HEPARIN THERAPY, USE THE HEPARIN ASSAY. INR Coag (PPP) [Relative time] 1.0 {INR} 0.9 - 1.1 [facility] [facility] Work Phone: [phone] PT Coag (PPP) [Time] 11.0 {sec} [...] 8.6 - 10.6 [facility] thalmo [facility] [facility] [employer] Work Phone: Chloride [Moles/Vol] 106 mmol/L 98 - 107 [facility] phthalmo [facility] [facility] Work Phone: CO2 [Moles/Vol] 25 mmol/L 21 - 32 [facility]htha lmo [facility] [employer] Work Phone: Creatinine [Mass/Vol] 1.50 mg/dL above high threshold See Below [facility] [facility] Work Phone: Comment on above: Reference Range: 0.5 0 - 1.30 Glucose [Mass/Vol] 94 mg/dL 74 - 99 [facility] Work Phone: LDH [Catalytic activity/Vol] 161 U/L 84 - 246 [facility]mo [facility] [facility] Work Phone: Potassium [Moles/Vol] 4.6 mmol/L 3.5 - 5.3 MG- [facility]hthalmo [facility] [facility] Work Phone: Protein [Mass/Vol] 6.2 g/dL below low threshold 6.4 - 8.2 [facility]mo [facility] [facility] Work Phone: Sodium [Moles/Vol] 140 mmol/L 136 - 145 [facility] Work Phone: Urea nitrogen [Mass/Vol] 22 mg/dL 6 - 23 [facility]mo [facility] e 02 Work Phone: Glucose [Mass/Vol] 92 mg/dL 74 - 99 MG-Oph [facility] e 02 Work Phone: Otheron 04-02-2019 Interpreted by: REAGAN AHMADI04/02/19 13:04MRN: [id number] Name: KATERINA DANIELLE STUDY:PET/CT LYMPHOMA STAGING; 04/02/2019 [...] (SUV) units. CODING:Subsequent Treatment Strategy (PS) CALIBRATION:Dose Wewemcrtk-ej-Phkj Interval (mins): 105 minMediastinal bloodpool SUV (normal [...] interpretation as stated. [facility] Electronically signed by: ZARA AHMADI 04/02/19 [...] Work Phone: Comment on above: CALCULATIONS OF KTAIE MATED GFR ARE PERFORMED USING THE MDRD [...] g/dL below low threshold See Below [employer] Work Phone: Comment on above: Reference Range: [...] 450 MG-Ophthalmo jerri[facility] [facility] Work Phone: RBC (Bld) [#/Vol] 3.95 {x10E12/L} [...] 1.1 [facility] [facility] Work Phone: [phone] PT Coag (PPP) [Time] 11.0 {sec} [...] 24 mmol/L 21 - 32 [facility]Ophtha lmo [facility] [facility] Work Phone: Creatinine [Mass/Vol] 1.49 mg/dL above high threshold See Below [facility] [employer] Work Phone: Comment on above: Reference Range: 0.5 0 - 1.30 Glucose [Mass/Vol] 107 mg/dL above high threshold 74 - 99 [facility] [facility] Work Phone: LDH [Catalytic activity/Vol] 171 U/L 84 - 246 [facility] Work Phone: Potassium [Moles/Vol] 4.2 mmol/L 3.5 - 5.3 [facility] Work Phone: Protein [Mass/Vol] 5.7 g/dL below low threshold 6.4 - 8.2 [facility] [facility] Work Phone: Sodium [Moles/Vol] 140 [...] {mL/min/1.73m2} Abnormal >60 [facility] thalmo [facility] [employer] Work Phone: Comment on above: CALCULATIONS OF KATIE MATED GFR ARE PERFORMED USING THE MDRD STUDY EQUATION FOR THE IDMS-TRACEABLE CREATININE METHODS. CLIN CHEM 2007;53:[id number] Thyroidon 03-19-2019 TSH Qn 0.78 {mIU/L} See Below [facility] [facility] Work Phone: Comment on above: Reference Range: 0.4 4 - 3.98 TSH testing is performed using different testing methodology at [facility] than at other [facility]. Direct result comparisons should only be made within the same method.. Patients receiving more than 5 mg/day of biotin may have interference in test results. A sample should be taken no sooner than eight hours after previous dose. Contact [phone] for additional information. Uric Acid, Serumon 9 Urate [Mass/Vol] 5.5 mg/dL 4.0 - 7.5 MG-Ophth almo logy[facility] [employer] Work Phone: Comment on above: Venipuncture immedia tely after or during the administration of Metamizole may lead to falsely low results. Testing should be performed immediately prior to Metamizole dosing. Vital Signs Date Time Vital Sign Value Performing Clinician Facility 05-19-2024 15:51-0400 Body weight 119.74 kg MD Nael Farias Work Phone: [facility] 05-19-2024 15:51-0400 Diastolic blood pressure 84 mm[Hg] MD Nael Farias Work Phone: [facility] 05-19-2024 15:51-0400 Heart rate 70 /min MD Nael Farias Work Phone: [facility] 05-19-2024 15:51-0400 SaO2% (BldA) [Mass fraction] 97 % MD Nael Farias Work Phone: [facility] 05-19-2024 15:51-0400 Systolic blood pressure 140 mm[Hg] MD Nael Farias Work Phone: [facility] 01-05-2024 10:39-0400 Body mass index (BMI) [Ratio] 35.8 kg/m2 Sandra Cole MD Work Phone: [facility] 01-05-2024 10:39-0400 Body weight 119.75 kg Sandra Cole MD Work Phone: [facility] 01-05-2024 10:39-0400 Heart rate 72 /min Sandra Cole MD Work Phone: [facility] 01-05-2024 10:39-0400 SaO2% (BldA) [Mass fraction] 96 % Sandra Cole MD Work Phone: [facility] 12-05-2023 09:53-0400 Body height 182.9 cm Christopher Watkins MD Work Phone: [facility] 12-05-2023 09:53-0400 Body mass index (BMI) [Ratio] 35.67 kg/m2 Christopher Watkins MD Work Phone: [facility] 12-05-2023 09:53-0400 Body weight 119.3 kg Christopher Watkins MD Work Phone: [facility] 12-05-2023 09:53-0400 Diastolic blood pressure 84 mm[Hg] Christopher Watkins MD Work Phone: [facility] 12-05-2023 09:53-0400 Heart rate 62 /min Christopher Watkins MD Work Phone: [facility] 12-05-2023 09:53-0400 Systolic blood pressure 128 mm[Hg] Christopher Watkins MD Work Phone: [facility] 08-13-2023 11:15-0500 Body mass index (BMI) [Ratio] 35.16 kg/m2 Anirudh Sears MD Work Phone: [facility] 08-13-2023 11:15-0500 Body temperature 97.3 [degF] Anirudh Sears MD Work Phone: [facility] 08-13-2023 11:15-0500 Body weight 117.6 kg Anirudh Sears MD Work Phone: [facility] 08-13-2023 11:15-0500 Diastolic blood pressure 78 mm[Hg] Anirudh Sears MD Work Phone: [facility] 08-13-2023 11:15-0500 Heart rate 70 /min Anirudh Sears MD Work Phone: [facility] 08-13-2023 11:15-0500 Respiratory rate 16 /min Anirudh Sears MD Work Phone: [facility] 08-13-2023 11:15-0500 SaO2% (BldA) [Mass fraction] 98 % Anirudh Sears MD Work Phone: [facility] 08-13-2023 11:15-0500 Systolic blood pressure 115 mm[Hg] Anirudh Sears MD Work Phone: [facility] 02-20-2023 13:54-0400 Body height 182.88 cm Nael Farias Work Phone: [facility] Work Phone: 02-20-2023 13:54-0400 Body mass index (BMI) [Ratio] 35.26 kg/m2 Nael Farias Work Phone: [facility] Work Phone: 02-20-2023 13:54-0400 Body surface area Derived from formula 2.38 m2 Moizscott Partida Stephanieevelyn Work Phone: [facility] Work Phone: 02-20-2023 13:54-0400 Body temperature 97.16 [degF] Moizscott Partida Stephanieevelyn Work Phone: [facility] Work Phone: 02-20-2023 13:54-0400 Body weight 117.94 kg Moizscott Farias Work Phone: [facility] Work Phone: 02-20-2023 13:54-0400 Diastolic blood pressure 95 mm[Hg] Moizscott Farias Work Phone: [facility] Work Phone: 02-20-2023 13:54-0400 Heart rate 75 /min Nael Brownevelyn Work Phone: [facility] Work Phone: 02-20-2023 13:54-0400 Respiratory rate 16 /min Nael Farias Work Phone: [facility] Work Phone: 02-20-2023 13:54-0400 SaO2% (BldA) [Mass fraction] 96 % Nael Farias Work Phone: [facility] Work Phone: 02-20-2023 13:54-0400 Systolic blood pressure 136 mm[Hg] Nael Brownyer Work Phone: [facility] Work Phone: 01-29-2023 13:51-0400 Body height 182.88 cm Nael Brownevelyn Work Phone: [facility] 3 DO Work Phone: 01-29-2023 13:51-0400 Body mass index (BMI) [Ratio] 36.08 kg/m2 Nael Brownyer Work Phone: [facility] 3 DO Work Phone: 01-29-2023 13:51-0400 Body surface area Derived from formula 2.4 m2 Nael Farias Work Phone: [facility] 3 DO Work Phone: 01-29-2023 13:51-0400 Body temperature 97.9 [degF] Nael Brownyer Work Phone: [facility] 3 DO Work Phone: 01-29-2023 13:51-0400 Body weight 120.66 kg Nael Brownevelyn Work Phone: [facility] 3 DO Work Phone: 01-29-2023 13:51-0400 Diastolic blood pressure 84 mm[Hg] Nael Brownyer Work Phone: [facility] 3 DO Work Phone: 01-29-2023 13:51-0400 Heart rate 72 /min Nael Farias Work Phone: [facility] 3 DO Work Phone: 01-29-2023 13:51-0400 Systolic blood pressure 138 mm[Hg] Nael Jaquan Farias Work Phone: [facility] 3 DO Work Phone: 12-20-2022 10:45-0400 Diastolic blood pressure 98 mm[Hg] Moizscott Farias Work Phone: FC-Ntlohtjjfk[facility] [address]99 DO Work Phone: 12-20-2022 10:45-0400 Heart rate 82 /min Moizscott Farias Work Phone: [facility] 2099 DO Work Phone: 12-20-2022 10:45-0400 SaO2% (BldA) [Mass fraction] 98 % Moizscott Farias Work Phone: [facility] 2099 DO Work Phone: 12-20-2022 10:45-0400 Systolic blood pressure 134 mm[Hg] Moizscott Farias Work Phone: XP-Hwfccudjfg-[place]klp [place] 2099 DO Work Phone: 12-28-2021 10:15-0400 Body height 182.88 cm Moizscott Partida Stephanieevelyn Work Phone: [facility] 2099 DO Work Phone: 12-28-2021 10:15-0400 Body mass index (BMI) [Ratio] 36.21 kg/m2 Nael Brownevelyn Work Phone: BN-Wyybhzolvx-[place] 2099 DO Work Phone: 12-28-2021 10:15-0400 Body surface area Derived from formula 2.41 m2 Nael Farias Work Phone: [facility] 2099 DO Work Phone: 12-28-2021 10:15-0400 Body weight 121.11 kg Nael Farias Work Phone: OS-Plhunzfkdy-Xzpa [place] 2099 DO Work Phone: 12-28-2021 10:15-0400 Diastolic blood pressure 94 mm[Hg] Nael Brownyer Work Phone: [facility] 2099 DO Work Phone: 12-28-2021 10:15-0400 Systolic blood pressure 140 mm[Hg] Nael Brownyer Work Phone: [facility] 2099 DO Work Phone: 11-08-2021 10:18-0500 Body height 182.88 cm Nael Farias Work Phone: [facility] 3 DO Work Phone: 11-08-2021 10:18-0500 Body mass index (BMI) [Ratio] 36.48 kg/m2 Nael Farias Work Phone: [facility] 3 DO Work Phone: 11-08-2021 10:18-0500 Body surface area Derived from formula 2.42 m2 Nael Farias Work Phone: [facility] 3 DO Work Phone: 11-08-2021 10:18-0500 Body temperature 97 [degF] Nael Brownyer Work Phone: [facility] 3 DO Work Phone: 11-08-2021 10:18-0500 Body weight 122.02 kg Nael Farias Work Phone: [facility] 3 DO Work Phone: 11-08-2021 10:18-0500 Diastolic blood pressure 82 mm[Hg] Nael Farias Work Phone: [facility] 3 DO Work Phone: 11-08-2021 10:18-0500 Heart rate 72 /min Moizscott Jaquan Andrea Work Phone: [facility] 3 DO Work Phone: 11-08-2021 10:18-0500 Systolic blood pressure 130 mm[Hg] Moizscott Jaquan Andrea Work Phone: [facility] 3 DO Work Phone: 05-21-2021 11:28-0400 Body height 182.88 cm Moizscott Jaquan Andrea Work Phone: QO-Pvilqjyeqg-Fvxz [place] 2099 DO Work Phone: 05-21-2021 11:28-0400 Body mass index (BMI) [Ratio] 35.8 kg/m2 Moizscott Jaquan Andrea Work Phone: [facility] 2099 DO Work Phone: 05-21-2021 11:28-0400 Body surface area Derived from formula 2.4 m2 Moizscott Jaquan Andrea Work Phone: [facility] 2099 DO Work Phone: 05-21-2021 11:28-0400 Body weight 119.75 kg Nael Farias Work Phone: [facility] 2099 DO Work Phone: 05-21-2021 11:28-0400 Diastolic blood pressure 90 mm[Hg] Moizscott Jaquan Andrea Work Phone: [facility] 2099 DO Work Phone: 05-21-2021 11:28-0400 Systolic blood pressure 142 mm[Hg] Nael Partida Andrea Work Phone: [facility] 2099 DO Work Phone: 08-02-2019 12:54-0500 BMI (Body Mass Index) 32.98 kg/m2 Christopher TRACYSL-Umdbgghcu-Mrkyp an Work Phone: 08-02-2019 12:54-0500 Body Temperature 96.62 [degF] Christopher Neha MS-Rlvrjylvd-Aa idm an Work Phone: 08-02-2019 12:54-0500 Body weight 110.31 kg Christopher Neha XO-Gssiilztt-Mpd dm an Work Phone: 08-02-2019 12:54-0500 BP Diastolic 76 mm[Hg] Christopher Neha ZB-Mslvtpvuo-Mci dm an Work Phone: 08-02-2019 12:54-0500 BP Systolic 117 mm[Hg] Christopher Neha MK-Bfhdlztan-Pba dm an Work Phone: 08-02-2019 12:54-0500 BSA (Body Surface Area) 2.31 m2 Christopher Neha BP-Nmvqtiskq-Dtteo an Work Phone: 08-02-2019 12:54-0500 Height 182.88 cm Christopher Neha EM-Ydvoxqeme-Smg dm an Work Phone: 08-02-2019 12:54-0500 Pulse (Heart Rate) 79 /min Christopher Neha MG-Neurology- [place] [facility] Work Phone: 08-02-2019 12:54-0500 Pulse Oximetry 100 % Christopher Neha DR-Ehxzyonny-Ecf dm an Work Phone: 08-02-2019 12:54-0500 Respiratory Rate 16 /min Christopher Neha XS-Aricawwsk-Bd idm an Work Phone: 08-02-2019 12:54-0500 0 1 Christopher Neha EB-Hctpzbqwf-Kja dm an Work Phone: Comment on above: Pain Scale 07-26-2019 11:44-0500 BMI (Body Mass Index) 33.12 kg/m2 Christopher Neha QT-Okrzywepq-Woqdy an Work Phone: 07-26-2019 11:44-0500 Body Temperature 96.3 [degF] Christopher Neha CM-Fewnkvrei-Bb idm an Work Phone: 07-26-2019 11:44-0500 Body weight 110.76 kg Christopher Neah DL-Krbjnbjcv-Kcr dm an Work Phone: 07-26-2019 11:44-0500 BP Diastolic 75 mm[Hg] Christopher Neha QP-Fwlgonnwj-Tca dm an Work Phone: 07-26-2019 11:44-0500 BP Systolic 128 mm[Hg] Christopher Neha EW-Hagyxuyoh-Bcw dm an Work Phone: 07-26-2019 11:44-0500 BSA (Body Surface Area) 2.32 m2 Christopher Neha LG-Wuhmsqiat-Qflgr an Work Phone: 07-26-2019 11:44-0500 Height 182.88 cm Christopher Neha DP-Jfakkovua-Bww dm an Work Phone: 07-26-2019 11:44-0500 Pulse (Heart Rate) 85 /min Christopher Neha MG-Neurology- [place] Work Phone: 07-26-2019 11:44-0500 Pulse Oximetry 100 % Christopher Neha XU-Uywuplkka-Ajf dm an Work Phone: 07-26-2019 11:44-0500 Respiratory Rate 16 /min Christopher Neha OB-Lvelughdd-Ln idm an Work Phone: 07-26-2019 11:44-0500 3 1 Christopher Neha AE-Butgjbgre-Arz dm an Work Phone: Comment on above: Pain Scale Encounters Encounter Date Encounter Type Care Provider Facility Start: 05-25-2024 End: 05-25-2024 ambulatory NAEL FARIAS Not Available Start: 05-19-2024 End: 05-19-2024 ambulatory MD Nael Farias Work Phone: [facility] Work Phone: Start: 05-19-2024 End: 05-19-2024 Patient encounter procedure MD Nael Farias Work Phone: [facility] Work Phone: Start: 05-10-2024 End: 05-10-2024 ambulatory NADEEM MORRISON Not Available Start: 04-27-2024 End: 04-27-2024 ambulatory ANIRUDH Katina [facility] Start: 04-15-2024 End: 04-15-2024 Patient encounter procedure MD Nael Farias Work Phone: [facility] [place] Work Phone: Start: 04-15-2024 End: 04-15-2024 ambulatory MD Nael Farias Work Phone: [facility] Work Phone: Start: 04-13-2024 End: 04-13-2024 ambulatory NADEEM MORRISON Not Available Start: 03-23-2024 End: 03-23-2024 ambulatory NADEEM MORRISON Not Available Start: 02-17-2024 End: 02-17-2024 ambulatory NAEL FARIAS Not Available Start: 01-05-2024 End: 01-05-2024 [facility] Start: 01-05-2024 End: 01-05-2024 Office outpatient visit 25 minutes Sandra Cole MD Work Phone: [facility] Comment on above: Asthma, unspecified asthma severity, unspecified whether complicated, unspecified whether persistent ([facility]-HCC) (Primary Dx); CVID (common variable immunodeficiency) (Multi) Start: 12-05-2023 End: 12-05-2023 ambulatory [facility] Ambulatory Start: 12-05-2023 End: 12-05-2023 Office outpatient visit 15 minutes Christopher Watkins MD Work Phone: [facility] Comment on above: Stage 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 disease (CMS/HCC) (Primary Dx); Essential hypertension; Hyperparathyroidism, secondary (CMS/HCC) Start: 11-05-2023 End: 11-05-2023 ambulatory NAEL FARIAS Not Available Start: 10-23-2023 End: 10-23-2023 ambulatory NAEL FARIAS Not Available Start: 09-11-2023 End: 09-11-2023 ambulatory NAEL FARIAS Not Available Start: 09-09-2023 End: 09-09-2023 ambulatory SANDRA Daniel [facility] Ambulatory Start: 09-09-2023 End: 09-09-2023 Office outpatient visit 25 minutes Sandra Cole MD Work Phone: [facility] Comment on above: Hypogammaglobulinemi a (CMS/HCC) (Primary Dx); CVID (common variable immunodeficiency) (CMS/HCC) Start: 08-13-2023 End: 08-13-2023 Office outpatient visit 15 minutes Anirudh Sears MD Work Phone: [facility] Comment on above: Hypogammaglobulinemi a (CMS/HCC) Start: 08-13-2023 End: 08-13-2023 ambulatory ANIRUDH SEARS [facility] Start: 07-16-2023 End: 07-16-2023 ambulatory NOHELIA MACHADO Not Available Start: 05-29-[address] Nael Farias Facility: Start: 04-07-2023 Rx Renewal Nael Stout er Work Phone: [facility] 3 DO Work Phone: Start: 02-25-2023 AUDIT Nael Stout er Work Phone: [facility] Work Phone: Start: 02-20-2023 Current tobacco non- user cad cap copd pv dm Nael Farias [facility] Work Phone: Start: 02-20-[address] Fab Clark Faci lity:[id number] Start: 01-29-2023 Office outpatient vi sit 25 minutes Nael Farias Work Phone: [facility] 3 DO Work Phone: Start: 01-29-[address] Nael Farias Facility: Start: 01-22-[address] Nael Farias Facility:[facility] Start: 01-02-2023 End: 01-03-2023 ambulatory SANDRA COLE Facility:H1 Start: 12-20-2022 Office outpatient vi sit 15 minutes Nael Farias Work Phone: TH-Ylthfptbhi-[place] 2100 DO Work Phone: Start: 12-20-2022 Patient encounter procedure Moiz Farias Work Phone: [facility] 2100 DO Work Phone: Start: 12-20-[address] Nael Farias Facility:[id number] Start: 10-22-2022 Rx Renewal Nael Stout er Work Phone: [facility] 250 DO Work Phone: Start: 10-15-2022 End: 10-16-[address] NAEL FARIAS . Facility:H1 Start: 10-11-2022 End: 10-12-[address] DOCTOR CHÁVEZ Facility:H1 Start: 10-10-2022 ambulatory Anirudh Sears Facility:[facility] Start: 09-27-2022 End: 09-28-[address] DOCTOR CHÁVEZ Facility:H1 Start: 08-15-2022 ambulatory Anirudh Sears Facility:[facility] [place] [facility] Start: 08-15-2022 ambulatory Anirudh Sears Faci lity:[id number] Start: 08-12-2022 End: 08-13-[address] DOCTOR CHÁVEZ Facility:H1 Start: 07-18-2022 End: 07-19-[address] DOCTOR CHÁVEZ Facility:H1 Start: 07-16-[address] Nael Farias Facility: Start: 06-11-2022 End: 06-11-2022 ambulatory MD Nael Farias Work Phone: [facility] Work Phone: Start: 06-11-2022 End: 06-11-2022 Patient encounter procedure MD Nael Farias Work Phone: [facility]-Pre-Surgical [facility] Start: 04-01-2022 End: 04-02-[address] NAEL FARIAS . Facility:H1 Start: 02-21-[address] Nael Farias Facility:[id number] Start: 02-20-2022 End: 02-21-[address] DOCTOR CHÁVEZ Facility:H1 Start: 12-28-2021 Office outpatient vi sit 15 minutes Nael Farias Work Phone: TL-Irjaxqwtyc-Z[place]rz [place] 2100 DO Work Phone: Start: 12-28-2021 Patient encounter procedure Ed chavez J Andrea Work Phone: BI-Cgdwfzxppp-Cqsu [place] 2100 DO Work Phone: Start: 11-14-[address] Nael Farias Facility:[id number] Start: 11-08-2021 Office outpatient vi sit 25 minutes Nael Farias Work Phone: -[facility] 3 DO Work Phone: Start: 05-22-2021 Chart Update Nael Stout er Work Phone: ZE-Hmpnmfdthn-Gwxo [place] 2100 DO Work Phone: Start: 05-21-2021 Patient encounter procedure Ed chavez J Andrea Work Phone: XI-Cmqdolzzhx-Etez [place] 2100 DO Work Phone: Start: 08-02-2019 Patient encounter procedure Christopher Ra shidi DR-Tkgqjbsct-Hxubl an Work Phone: Start: 07-26-2019 Patient encounter procedure Christopher Ra shidi QN-Bbhsskpif-Ojeeg an Work Phone: Start: 04-08-2019 Patient encounter procedure Nael valera XY-Wyynvuuekzant-X estarabella B102 Work Phone: Start: 03-08-2019 Patient encounter procedure Nael ramsayer XV-Npujdbjbeccjv-Q [place] [facility] Work Phone: Start: 07-08-2018 Patient encounter procedure Nael valera ZU-Eyvmltturagna-N [place] [facility] Work Phone: Start: 03-13-2018 Patient encounter procedure Nael ramsayer RA-Raodbpodlcbwx-S [place] [address] Work Phone: Start: 12-17-2017 Patient encounter procedure Nael ramsayer JK-Oarpebmqipuun-V [place] [address] Work Phone: Start: 09-19-2017 Patient encounter procedure Nael ramsayer FL-Toxzcvqskklvg-H [place] [address] Work Phone: Procedures Date Procedure [...] Christopher Neha Start: 07-26-2019 Creatinine other source Chrsitopher Neha Start: 07-26-2019 Protein total xcpt refractometry [...] 06-13-2032 Screening for malignant neoplasm of colon [facility] Start: 08-16-2024 End: 08-16-2024 Patient encounter procedure 08/16/2024 10:40 AM EST Office Visit [facility] [address] [place] [address] [address] [place] [id number] Anirudh Sears MD [address] [place] [address] Dr [address] [place], [place] [id number] [facility] Start: 07-05-2024 End: 07-05-2024 Patient encounter procedure 07/05/2024 10:45 AM EST Office Visit [facility] [address] [place] [address] [place] [address] Sandra Cole MD [address] [facility], [address] [place] [address] [facility] Start: 06-11-2024 End: 06-11-2024 Patient encounter procedure 06/11/2024 10:30 AM EDT Office Visit [facility] [address] [place] [address] Dr [address] [place] [phone] Christopher Watkins MD [address] [place] [address] Dr [address] [place] [address] [facility] Start: 01-05-2024 End: 01-05-2024 Patient encounter procedure 01/05/2024 10:45 AM EDT Office Visit [facility] [address] [place] [address] Sandra Cole MD [address] [facility], [address] [place] [address] [facility] Start: 12-05-2023 End: 12-04-2024 Basic metabolic 2000 panel - Serum or Plasma Basic Metabolic Panel Lab Routine Stage 3b chronic kidney disease (CMS/HCC) Essential hypertension Expected: 12/05/2023 (Approximate), Expires: 12/04/2024 [facility] Service Area Work Phone: Comment on above: Expected: 12/05/2023 (Approximate), Expires: 12/04/2024 Start: 12-05-2023 End: 12-04-2024 Creatinine [Mass/volume] in Urine Creatinine, Urine Random Lab Routine Stage 3b chronic kidney disease (CMS/HCC) Essential hypertension Expected: 12/05/2023 (Approximate), Expires: 12/04/2024 [facility] Work Phone: Comment on above: Expected: 12/05/2023 (Approximate), Expires: 12/04/2024 Start: 12-05-2023 End: 12-04-2024 Parathyrin.intact [Mass/volume] in Serum or Plasma Parathyroid Hormone, Intact Lab Routine Stage 3b chronic kidney disease (CMS/HCC) Essential hypertension Expected: 12/05/2023 (Approximate), Expires: 12/04/2024 [facility] Work Phone: Comment on above: Expected: 12/05/2023 (Approximate), Expires: 12/04/2024 Start: 12-05-2023 End: 12-04-2024 Protein, Urine Random Protein, Urine Random Lab Routine Stage 3b chronic kidney disease (CMS/HCC) Essential hypertension Expected: 12/05/2023 (Approximate), Expires: 12/04/2024 [facility] Work Phone: Comment on above: Expected: 12/05/2023 (Approximate), Expires: 12/04/2024 Start: 11-27-2023 End: 11-27-2023 Patient encounter procedure 11/27/2023 12:20 PM EDT Office Visit [facility] [address] [facility] [address] [place] [address] [place] [address] [facility] [address] [place] [address] [facility] Start: 10-20-2023 End: 10-20-2023 Patient encounter procedure 10/20/2023 3:00 PM EST Office Visit [facility] [address] [place] [id number] Sandra Cole MD [address] [facility] [address] [place] [address] [facility] Start: 09-09-2023 End: 09-09-2024 Immunoglobulins (IgG, IgA, IgM) Immunoglobulins (IgG, IgA, IgM) Lab Routine CVID (common variable immunodeficiency) (CMS/HCC) Expected: 09/09/2023 (Approximate), Expires: 09/09/2024 [facility] Service Area Work Phone: Comment on above: Expected: 09/09/2023 (Approximate), Expires: 09/09/2024 Start: 08-12-2023 End: 08-11-2024 CBC W Auto Differential panel - Blood CBC and Auto Differential Lab Routine Hypogammaglobulinemia (CMS/HCC) Expected: 08/12/2023 (Approximate), Expires: 08/11/2024 [facility] Service Area Work Phone: Comment on above: Expected: 08/12/2023 (Approximate), Expires: 08/11/2024 Start: 08-12-2023 End: 08-11-2024 Comprehensive metabolic 2000 panel - Serum or Plasma Comprehensive Metabolic Panel Lab Routine Hypogammaglobulinemia (CMS/HCC) Expected: 08/12/2023 (Approximate), Expires: 08/11/2024 [facility] Work Phone: Comment on above: Expected: 08/12/2023 (Approximate), Expires: 08/11/2024 Start: 08-12-2023 End: 08-11-2024 Lactate dehydrogenase [Enzymatic activity/volume] in Serum or Plasma by Lactate to pyruvate reaction Lactate dehydrogenase Lab Routine Hypogammaglobulinemia (CMS/HCC) Expected: 08/12/2023 (Approximate), Expires: 08/11/2024 [facility] Work Phone: Comment on above: Expected: 08/12/2023 (Approximate), Expires: 08/11/2024 Start: 08-09-2023 COVID-19 Vaccine (4 - Pfizer risk series) COVID-19 Vaccine (4 - Pfizer risk series) [facility] Start: 08-09-2023 COVID-19 Vaccine ( season) COVID-19 Vaccine ( season) [facility] Start: 08-09-2023 COVID-19 Vaccine ( season) COVID-19 Vaccine ( season) [facility] Start: 05-29-2023 FUV, Provider: Christopher Watkins, Status: Pen, Time: 12:50 PM FUV, Provider: Christopher Watkins, Status: Pen, Time: 12:50 PM [facility] 3 DO Work Phone: Start: 01-23-2023 FUV, Provider: Christopher Watkins, Status: Pen, Time: 11:10 AM FUV, Provider: Christopher Watkins, Status: Pen, Time: 11:10 AM [facility] 2100 DO Work Phone: Start: 01-21-2023 FUV, Provider: Christopher Watkins, Status: Pen, Time: 1:00 PM FUV, Provider: Christopher Watkins, Status: Pen, Time: 1:[address] [facility] 250 DO Work Phone: Start: 12-23-2022 Lipid panel Lipid Panel [facility] Start: 07-02-2022 Diabetes mellitus screening Diabetes Screening [facility] Start: 03-12-2022 FUV, Provider: Christopher Watkins, Status: Pen, Time: 2:10 PM FUV, Provider: Christopher Watkins, Status: Pen, Time: 2:10 PM -[facility] 3 DO Work Phone: Start: 11-08-2021 FUV, Provider: Christopher Watkins, Status: Pen, Time: 10:00 AM FUV, Provider: Christopher Watkins, Status: Pen, Time: 10:00 AM EA-Sfhhvwjats-[address]lo [address] 2100 DO Work Phone: Start: 2020 RSV patient s and/or patients aged 60+ years (1 - 1-dose 60+ series) RSV patients and/or patients aged 60+ years (1 - 1-dose 60+ series) [facility] Start: 07-27-2019 Ultrasound Kidney Bilat eral CL-Gdmpdgpjy-Uxvs man Work Phone: Start: 1982 DTaP/Tdap/Td Vaccine s (1 - Tdap) DTaP/Tdap/Td Vaccines (1 - Tdap) [facility] Start: 11-16-1979 Zoster Vaccines (1 o f 2) Zoster Vaccines (1 of 2) [facility] Start: 1966 Pneumococcal Vaccine : Pediatrics (0 to 5 Years) and At-Risk Patients (6 to 64 Years) (1 - PCV) Pneumococcal Vaccine: Pediatrics (0 to 5 Years) and At-Risk Patients (6 to 64 Years) (1 - PCV) [facility] Start: 1966 Pneumococcal Vaccine : Pediatrics (0 to 5 Years) and At-Risk Patients (6 to 64 Years) (1 of 2 - PCV) Pneumococcal Vaccine: Pediatrics (0 to 5 Years) and At-Risk Patients (6 to 64 Years) (1 of 2 - PCV) [facility] Start: 1960 HIV screening HIV Screening [facility] Start: 1960 Medicare Annual Wellness Visit Medicare Annual Wellness Visit (AWV) [facility] Start: 1960 Screening for malignant neoplasm of colon [facility] aPTT in Platelet poo r plasma by Coagulation assay [facility] Platelets [#/volume] in Blood [facility] LE-Kbgjzlldt-Yk id man Work Phone: [facility] NEGATED: Highlighted row has been ruled out! Planned Goals not documented MG-Neurolog y-Berto man Work Phone: Immunizations Immunization Date Immunization Notes Care Provider Fa cili 08-27-2022 Pfizer COVID-19 vaccine, bivalent, age 12 years and older (30 mcg/0.3 mL) Anirudh Sears MD Work Phone: [facility] Work Phone: 08-18-2022 influenza, injectabl e, quadrivalent, preservative free Anirudh Sears MD Work Phone: [facility] Work Phone: 01-01-2022 Pfizer Newman Cap SARS-CoV-2 Anirudh Sears MD Work Phone: [facility] Work Phone: 11-16-2020 Pfizer-BioNTech COVID-19 Vacc 30 MCG/0.3ML Intramuscular Suspension Nael Farias Work Phone: [facility] 3 DO Work Phone: 02-08-2020 measles, mumps and rubella virus vaccine Nael Farias Work Phone: [facility] 3 DO Work Phone: Payers Date Payer Category Payer Self-pay [id number] 2021 Medicare ANTH MEDICARE ANTH MEDICARE ADVANTAGE [id number] 2021-Present [address] [place] [address] [id number] 1960 Unknown [id number] 2.16.840.1.219535.3.579.2. 1069 1960 Unknown [id number] 2.16.840.1.409393.3.579.2. 1069 1960 Unknown [id number] 2.16.840.1.216723.3.579.2. 1069 1960 Unknown [id number] 2.16.840.1.419933.3.579.2. 593 1960 Unknown [id number] 2.16.840.1.888471.3.579.2. 593 1960 Unknown [id number] 2.16.840.1.927311.3.579.2. 593 1960 Unknown [id number] 2.16.840.1.779076.3.579.2. 593 1960 Unknown [id number] 2.16.840.1.469637.3.579.2. 593 1960 Unknown [id number] 2.16.840.1.085935.3.579.2. 593 1960 Unknown [id number] 2.16.840.1.950041.3.579.2. 593 1960 Unknown [id number] 2.16.840.1.683217.3.579.2. 593 1960 Unknown [id number] 2.16.840.1.102971.3.579.2. 1046 1960 Unknown [id number] 2.16.840.1.625669.3.579.2. 356 1960 Unknown [id number] 2.16.840.1.555650.3.579.2. 356 1960 Unknown [id number] 2.16.840.1.641860.3.579.2. 356 1960 Unknown [id number] 2.16.840.1.518024.3.579.2. 356 1960 Unknown [id number] 2.16.840.1.360700.3.579.2. 356 1960 Unknown [id number] 2.16.840.1.161352.3.579.2. 356 1960 Unknown [id number] 2.16.840.1.750192.3.579.2. 356 1960 Unknown [id number] 2.16.840.1.969849.3.579.2. 1244 1960 Unknown [id number] 2.16.840.1.340930.3.579.2. 1244 1960 Unknown [id number] 2.16.840.1.573250.3.579.2. 1244 1960 Unknown [id number] 2.16.840.1.085675.3.579.2. 1245 1960 Unknown [id number] 2.16.840.1.550958.3.579.2. 1245 1960 Unknown [id number] 2.16.840.1.795336.3.579.2. 1259 1960 Unknown [id number] 2.16.840.1.502594.3.579.2. 1259 1960 Unknown [id number] 2.16.840.1.306635.3.579.2. 1259 1960 Unknown [id number] 2.16.840.1.524490.3.579.2. 1259 1960 Unknown [id number] 2.16.840.1.990426.3.579.2. 1259 1960 Unknown [id number] 2.16.840.1.965721.3.579.2. 1259 1960 Unknown [id number] 2.16.840.1.494084.3.579.2. 1259 1960 Unknown [id number] 2.16.840.1.300872.3.579.2. 1259 1960 Unknown [id number] 2.16.840.1.533479.3.579.2. 1259 1959 Medicare [id number] Private Health Insurance [facility] [id number] Unknown Unknown MMO [id number] Unknown [place] BC/BS [id number] Unknown [id number] 2.16.840.1.887662.3.579.2. 531 Social History Date Type Detail Facility Start: 08-13-2023 End: 01-05-2024 Never a smoker Never a smoker JG-Kcuuodjcoo-Ogwlyp k e 2100 DO Work Phone: Start: 1960 Sex Assigned At Male [facility] Start: 06-13-2022 End: 08-13-2023 Tobacco smoking status NHIS Never smoked tobacco [facility] History of tobacco use Passive smoker [facility] Work Phone: Start: 08-13-2023 Tobacco use and exposure Smokeless tobacco non-user [facility] Work Phone: Start: 08-13-2023 End: 01-05-2024 Alcohol intake Lifetime non-drinker (finding) [facility] Work Phone: Start: 08-13-2023 End: 01-05-2024 Tobacco use panel [facility] Work Phone: Start: 1960 Sex Assigned At Not on file [facility] Work Phone: Start: 08-03-2023 End: 01-05-2024 Exposure to SARS-CoV-2 (event) Not sure [facility] NEGATED: Highlighted row - - XU-[address] Work Phone: Functional Status Date Assessment Result Facility NEGATED: Highlighted row Functional performance Functional status health issues are not documented Disease HE-Eqarxswndnzvy-Ez [address] Work Phone: Mental Status Date Assessment Result Facility NEGATED: Highlighted row Cognitive function [Interpretation] Cognitive status health issues are not documented Disease BF-Fgrsvusxfsplf-Ci sofie Merino Work Phone: Clinical Notes 09-06-2020 to 01-05-2024 Assessment & Plan Note - Carolyn Dormanpam - 01/05/2024 11:13 AM EDTAssessment & Plan Note - Carloyn Dormanpam - 01/05/2024 11:13 AM EDTSandra Cole MD - 01/05/2024 10:45 AM EDT Note Date & Type Note Facility 01-05-2024 Evaluation + Plan note Associated Problem(s): Asthma ([facility]) ACT is 19. Sx are controlled currently. [...] to see him back in 6 months [facility] Work Phone: 01-05-2024 Miscellaneous Notes Associated Problem(s): Asthma ([facility]) ACT is 19. Sx are controlled currently. [...] for the patient. Continue Gammagard infusions at [place]. He will maintain his current dose. His last level in October 2023 was a little low at 699. Nonetheless, the patient has not had any infections and therefore we will not increase his dose at this time. I would like to check it in 3 months time. documented in this encounter [facility] Work Phone: 01-05-2024 Evaluation + Plan note [...] for the patient. Continue Gammagard infusions at [place]. He will maintain his current dose. His last level in October 2023 was a little low at 699. Nonetheless, the patient has not had any infections and therefore we will not increase his dose at this time. I would like to check it in 3 months time. [facility] Work Phone: 01-05-2024 History of Presen t illness Narrative Subjective Katerina Danielle is a 63 y.o. male who presents for Immunodeficiency. Chief Complaint Patient presents with Immunodeficiency Since last visit, 12-20-22, patient states his infusions at [facility] are going well but pays over $700 [...] for the patient. Continue Gammagard infusions at [place]. He will maintain his current dose. His last level in October 2023 was a little low at 699. Nonetheless, the patient has not had any infections and therefore we will not increase his dose at this time. I would like to check it in 3 months time. Asthma ([facility]) ACT is 19. Sx are controlled currently. [...] discussion and plan. documented in this encounter [facility] Work Phone: 01-05-2024 Instructions Carolyn Morrison - 01/05/2024 10:45 AM EDT Continue Wixela or Breo one inhalation one time a day. Continue Gammagard infusions at [facility] as scheduled. Follow up in 6 months or sooner if symptoms worsen prior. documented in this encounter [facility] Work Phone: 09-10-2023 Evaluation + Plan note Associated Problem(s): Asthma Patient states the cost of his Arnuity went up dramatically this year. He is unable to afford the $42 a month co-pay. Therefore, I am going to try to change him to a lower cost inhaler. I am also going to ask my staff to send him co-pay assistance through [employer]. According to the patient his primary care recommended albuterol 2 inhalations twice a day as a maintenance and then every 4 hours as needed, but I am concerned about him developing tolerance to the albuterol and not having his underlying inflammation treated with a maintenance medication. Therefore I am going to attempt to get a covered inhaled corticosteroid for maintenance. [facility] Work Phone: 09-10-2023 Miscellaneous Notes Associated Problem(s): Asthma Patient states the cost of his Arnuity went up dramatically this year. He is unable to afford the $42 a month co-pay. Therefore, I am going to try to change him to a lower cost inhaler. I am also going to ask my staff to send him co-pay assistance through [employer]. According to the patient his primary care [...] maintenance. Associated Problem(s): CVID (common variable immunodeficiency) ([facility]) Unfortunately, this is an insurance nightmare. His benefits have changed. I am going to ask my staff to look into what the actual issue is. He is willing to go to IVIG monthly which is probably his best bet. Unfortunately he does live some distance away. We will try to coordinate care with [facility]. Due to his kidney disease I do not really feel that IV is the best option, but under the circumstances IV is better than nothing. documented in this encounter [facility] Work Phone: 09-10-2023 Evaluation + Plan note Associated Problem(s): CVID (common variable immunodeficiency) ([facility]) Unfortunately, this is an insurance nightmare. His benefits have changed. I am going to ask my staff to look into what the actual issue is. He is willing to go to IVIG monthly which is probably his best bet. Unfortunately he does live some distance away. We will try to coordinate care with [facility]. Due to his kidney disease I do not really feel that IV is the best option, but under the circumstances IV is better than nothing. [facility] Work Phone: 09-09-2023 History of Presen t [...] him 08/12/2023 that he was switched to [facility] who never contacted him despite him calling [...] Patient did test positive for COVID at [facility] and again on 08/27/2023. He and his [...] Judgment normal. Assessment/Plan CVID (common variable immunodeficiency) (CMS/[facility]) Unfortunately, this is an insurance nightmare. His benefits have changed. I am going to ask my staff to look into what the actual issue is. He is willing to go to IVIG monthly which is probably his best bet. Unfortunately he does live some distance away. We will try to coordinate care with [facility]. Due to his kidney disease I [...] staff to send him co-pay assistance through [employer]. According to the patient his primary care [...] discussion and plan. documented in this encounter [facility] Work Phone: 09-09-2023 Instructions Carolyn Morrison - 09/09/2023 5:15 PM EST Obtain blood work to check IgG, IgA and IgM levels. We will call you with results, recommendations and followup plan. Compare QVAR to Arnuity. Use albuterol only as needed. I will let you know what our plan is for your infusions. documented in this encounter [facility] Work Phone: 08-13-2023 History of Presen t [...] referred to Dr. Rodriguez in oncology at [facility] for evaluation. 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 Bone marrow biopsy was done which was negative for involvement with lymphoma . He also underwent an LP with low yield. Because of his meningeal enhancement and location close to CLINICAL SOCIAL WORK THERAPIST, he was treated with hyperCVAD-MA. He received [...] was compared to this patient's previous biopsy ([id number]). The previous biopsy demonstrated areas of necrosis [...] TP53 mutations. The patient was enrolled on [id number], Venetoclax+RICE. Cycle 1 started 10/29/17. Had tumor [...] pneumonitis. The patient was recently readmitted to [facility] (06/16-06/18/18) for fever and PNA. 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 He completed by mouth Levaquin. The patient was admitted to [facility] (08/18-08/21/18) with a new PE. He was [...] CAR T Cell infusion 01/04/19 with tisagenlecleucel ([facility]) with preparative regimen of fludarabine and cytoxan. [...] Labs/Imaging/Pathology: personally reviewed reports and images in [employer] electronic medical record system. Pertinent results as it related to the plan represented in below in assessment and plan. Assessment/Plan 1. 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 Patient will consider 6. Hypogammaglobulinemia: - Restarted [...] note has been transcribed using a medical coding instructor and there is a possibility of unintentional typing misprints. Diagnoses and all orders for this visit: Hypogammaglobulinemia (CMS/HCC) - CBC and Auto Differential; Future - Comprehensive Metabolic Panel; Future - Lactate dehydrogenase; Future - Clinic Appointment Request Follow up; Future Anirudh Sears MD Hematology/Oncology [facility] Scribe Attestation By signing my name below, Bernarda Cole Scribe attest that this documentation has been prepared under the direction and in the presence of Anirudh Sears MD. documented in this encounter [facility] Work Phone: 02-20-2023 History of Presen [...] of IV drug abuse, recent trauma. -Pain Management-[facility] Work Phone: 02-20-2023 History of Presen [...] history of IV drug abuse, recent trauma. [facility] Work Phone: 02-20-2023 History of Presen [...] history of IV drug abuse, recent trauma. [facility] Work Phone: 12-28-2021 History of Presen [...] that point, PCP referred patient to a Office Asst at [facility].He saw Nohelia Machado DO, Office Asst at [facility], did a breathing test and ordered a [...] he does have bloating and tenderness after. XK-Utpmgqxcsi-Irgscrzc 2100 DO Work Phone: 12-28-2021 History of [...] that point, PCP referred patient to a Office Asst at [facility].He saw Nohelia Machado DO, Office Asst at [facility], did a breathing test and ordered a [...] he does have bloating and tenderness after. LW-Psfhegzxxj-Qpjmhojj 2100 DO Work Phone: 05-21-2021 History of [...] will have his second COVID booster Friday.. PJ-Kyuhgcfihj-Lqsahuke 2100 DO Work Phone: 05-21-2021 History of [...] will have his second COVID booster Friday.. AW-Ogqjinyhra-Huddulwu 9212 DO Work Phone: 09-06-2020 History of Presen t illness Narrative Since last visit, 09/06/2020, patient reportsHe had his labs done at [facility] 2 weeks ago and he requested [...] be a large B cell lymphoma S/P. DU-Rgwqmzpyaq-Bwhffzpo 2100 DO Work Phone: Evaluation note No assessment inform ation available [facility] Work Phone: Evaluation note Diagnosis Hypogammaglobulinemia (CMS/HCC) Unspecified hypogammaglobulinemia documented in this encounter [facility] Work Phone: Evaluation note* Diagnosis Hypogammaglobulinemia (CMS/HCC)- Primary Unspecified hypogammaglobulinemia CVID (common variable immunodeficiency) ([facility]/HCC) Common variable immunodeficiency documented in this encounter [facility] Work Phone: Evaluation note* Diagnosis Stage 3b chronic kidney disease (CMS/HCC)- Primary Essential hypertension Unspecified essential hypertension Hyperparathyroidism, secondary ([facility]/HCC) documented in this encounter [facility] Work Phone: Evaluation note* Diagnosis Asthma, unspecified asthma severity, unspecified whether complicated, unspecified whether persistent ([facility])- Primary CVID (common variable immunodeficiency) (Multi) Common variable immunodeficiency documented in this encounter [facility] Work Phone: Evaluation note* Diagnosis Onset Date Resolution Status B-cell lymphoma acute DDD (degenerative disc disease), cervical acute Muscle spasm acute Other chronic pain acute [facility] Work Phone: History of Present illness NarrativeThe [...] is currently asymptomatic. No associated symptoms are reported.-[facility] 3 DO Work Phone: History of Present [...] is currently asymptomatic. No associated symptoms are reported.-[facility] 3 DO Work Phone: History of Present illness Narrative* Christopher Watkins MD - 12/05/2023 10:10 AM EDT Katerina Cory Carneylexie 63 y.o. @WT@ N/Room: [id number]/Room/bed info not found Subjective: The patient is [...] mg/3 mL nebulizer solution Inhale. artificial tears, xazcdqq-sngozrg-uwsritax, 0.1-0.3-0.2 % ophthalmic solution Administer into affected [...] Onco-Nephrology Program Division of Nephrology & Hypertension [facility] documented in this [facility] Work Phone: Family History No Family History [...] section and content) DATE CREATED AUTHOR 01/25/2020 [facility] DATE CREATED AUTHOR AUTHOR'S ORGANIZ ATION 08/22/2022 [facility] DATE CREATED AUTHOR AUTHOR'S ORGANIZ ATION 01/09/2023 [facility] DATE CREATED AUTHOR AUTHOR'S ORGANIZ ATION 02/22/2023 [facility] DATE CREATED AUTHOR AUTHOR'S ORGANIZ ATION 06/05/2023 [facility] DATE CREATED AUTHOR AUTHOR'S ORGANIZ ATION 06/05/2023 [employer] DATE CREATED AUTHOR AUTHOR'S ORGANIZ ATION 01/09/2024 [facility] DATE CREATED AUTHOR AUTHOR'S ORGANIZ ATION 04/22/2024 [facility] DATE CREATED AUTHOR AUTHOR'S ORGANIZ ATION 05/01/2024 [facility] DATE CREATED AUTHOR AUTHOR'S ORGANIZ ATION 05/27/2024 [facility] dical Specialists EPIC Care Teams (unrecognized [...] Victor Hugo Farrell MD Attending Provider Active Well Logging Captain Mud Analysis Relationship Specialty Start Date End Date Nael Farias MD [address] [place] [id number] PCP - General 06/18/18 Anirudh Sears MD [address] [place] [address] [address] [place] [address] Consulting Physician Hematology and Oncology 08/13/23 Well Log[employer] Captain Mud Analysis Relationship Specialty Start Date End Date Nael Farias MD [address] [place] [address] PCP - General 06/18/18 Anirudh Sears MD [address] [place] [address] [address] [place] [address] Consulting Physician Hematology and Oncology 08/13/23 Well Log[employer] Captain Mud Analysis Relationship Specialty Start Date End Date Nael Farias MD [address] [place] [phone] PCP - General 06/18/18 Anirudh Sears MD [address] [place] [address] [address] [place] [address] Consulting Physician Hematology and Oncology 08/13/23 Well Logging Captain Mud Analysis Relationship Specialty Start Date End Date Nael Farias MD [address] [place] [phone] PCP - General 06/18/18 Anirudh Sears MD [address] [place] [address] [address] [place] [address] Consulting Physician Hematology and Oncology 08/13/23 Christopher Watkins MD [address] [place] [address] [address] [place] [address] Consulting Physician Nephrology 12/08/23 Team Status: Inactive [...] BE BASED ON THE PRIMARY CLINICAL RECORDS. [facility] [employer] provides no warranty or guarantee of the accuracy or completeness of information in this document.
[2024-06-02 09:52] LABS: Basophils Percent Auto 0.2 % (0.2-2.0); Eosinophils Absolute Auto 0.2 10^3/uL (0.0-0.7); Eosinophils Percent Auto 4.6 % (0.9-7.0); Hematocrit 43.8 % (42.0-54.0); Hemoglobin 13.8 g/dL (14.0-18.0); Immature Granulocytes Abs Auto 0.13 10^3/uL (0.00-0.03); Immature Granulocytes Pct Auto 2.9 % (0.0-0.5); Lymphocytes Absolute Auto 1.2 10^3/uL (1.2-3.8); Mean Corpuscular HGB Conc 31.5 g/dL (29.9-35.2); Mean Corpuscular Hemoglobin 26.6 pg (25.9-34.0); Mean Corpuscular Volume 84.6 fL (80.0-94.0); Mean Platelet Volume 11.2 fL (9.5-13.5); Monocytes Absolute Auto 0.4 10^3/uL (0.3-0.8); Monocytes Percent Auto 7.7 % (1.7-12.0); Neutrophils Absolute Auto 2.6 10^3/uL (1.4-6.5); Neutrophils Percent Auto 57.6 % (43.0-75.0); Platelet Count 149 10^3/uL (150-450); Red Blood Count 5.18 10^6/uL (4.70-6.10); Red Cell Distribution Width 15.4 % (11.0-15.0); White Blood Count 4.6 10^3/uL (4.0-11.0)
[2024-06-02 10:10] LABS: Prothrombin Time 9.8 sec (9.0-11.6)
[2024-06-02 10:13] LABS: INR <0.93
== END 2024-06-02 09:10 | disposition home or self-care (01) ==
LOC: LAB 09:12
PROVIDERS: PCP Family Medicine; Visit Provider Anesthesiology
DX: C85.10 Unspecified B-cell lymphoma, unspecified site (principal)
CPT/HCPCS: 85025; 85610; 85730

== ENCOUNTER 2024-06-30 07:34 | Outpatient (RCR) | payer MEDICARE, SELFPAY ==
[2024-06-02 09:05] VITALS: PULSE 63; TEMP 35.9; O2SAT 96
[2024-06-02] MEDS: IMMUNE GLOBULIN IV ×2 (09:43→10:57)
[2024-06-02] MEDS: [UNRECOGNIZED DRUG - OTHER] IV ×2 (09:43→10:57)
--- NOTE | 2024-06-02 09:45 | PC.NURSE ---
0943: IV IGG infusion initiated at this time. Pt. without needs or c/o.
[2024-06-02 10:28] VITALS: BP 118/74; PULSE 63; TEMP 36.1; O2SAT 95
--- NOTE | 2024-06-02 10:29 | PC.NURSE ---
Tolerating infusion without any s/s of reaction, titration documented in MAR
--- NOTE | 2024-06-02 11:24 | PC.NURSE ---
1125 infusion completed, tolerated wellno s/s of reaction. IV dc'd from racf, catheter intact site clear. cottonball and coban applied. Released ambulatory
[2024-06-30] MEDS: IMMUNE GLOBULIN IV (09:11)
[2024-06-30] MEDS: [UNRECOGNIZED DRUG - OTHER] IV (09:11)
[2024-07-01 05:07] LABS: Immunoglobulin G, Qn 741 mg/dL (603-1613)
== END 2024-07-01 23:59 | disposition home or self-care (01) ==
LOC: INF 07:34
PROVIDERS: PCP Family Medicine
DX: D83.9 Common variable immunodeficiency, unspecified (principal)
CPT/HCPCS: 36415; 82784; 96365; 96366; J1569

== ENCOUNTER 2024-07-28 07:33 | Outpatient (RCR) | payer MEDICARE, SELFPAY ==
[2024-07-28 08:48] VITALS: BP 133/79; PULSE 77; TEMP 35.9; O2SAT 94
[2024-07-28] MEDS: GLY IV (09:18)
[2024-07-28] MEDS: IMMUN GLOB IV (09:18)
[2024-07-28] MEDS: IGA OV50 IV (09:18)
[2024-07-28 10:43] VITALS: BP 120/78; PULSE 81; TEMP 36.3; O2SAT 95
== END 2024-07-28 13:37 | disposition home or self-care (01) ==
LOC: INF 07:33
PROVIDERS: PCP Family Medicine
DX: D83.9 Common variable immunodeficiency, unspecified (principal)
CPT/HCPCS: 96365; J1569

== ENCOUNTER 2024-08-12 11:41 | Outpatient (OUT) | payer MEDICARE, SELFPAY ==
--- OUTSIDE RECORDS SUMMARY | 2024-08-12 11:57 | XMS_ITS | CCD ---
Author Organization [facility] CliniSynm Care Team Providers Care Poultry Hatchery Supervisor Name Role Phone Christopher Watkins Unavailable Unavailable Nael Farias Unavailable Unavailable Nael Farias Unavailable Unavailable Unavailable MD Nael Farias 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 Provider MD Victor Hugo Farrell Attending Provider [phone] Andrea, Dr. Nael Brand 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 Unava [...] Unavailable MISC, DR MATTHEW Consulting Unavailable MISC, DOCTOR Attending Unavailable Unavailable Unavailable Eduardo, Dr. Sanon Attending Unavailable Hemeyer, Dr. Nael Brand [facility] Unava ilable Sears, Anirudh C Admitting Unavailable Sears, Anirudh C Attending Unavailable Hemeyer, Dr. Nael Brand [facility] Unava ilable Sears, Anirudh C Admitting Unavailable Sears, Anirudh C Attending Unavailable Hemeevelyn, Dr. Nael Brand [facility] Unava ilable Andrea, Dr. Nael Brand [facility] Unava ilable Roland, Dr. White Attending Unavailable Roland, Dr. White Referring Unavailable Hemeyer, Dr. Nael Brand [facility] Unava ilable Roland, Dr. White Attending Unavailable Roland, Dr. White Referring Unavailable Hemeyer, Dr. Nael Brand [facility] Unava ilable Roland, Dr. White Attending Unavailable Roland, Dr. White Referring Unavailable Hemeyer, Dr. Nael Brand [facility] Unava ilable Stephanieyer, Dr. Nael Brand Referring Unava ilable Kelsey, Dr. Sandra Lopez Attending Unav ailable Hemeyer, Dr. Nael Brand [facility] Unava ilable Sears, Anirudh C Attending Unavailable Sears, Anirudh C Admitting Unavailable Hemeyer Nael GRACE 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 Provider Anirudh Sears MD Unavailable Christopher Watkins MD Unavailable MD Nael Farias 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 Provider DO Nadeem Morrison Attending Provider Nael Farias 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 Unavailable Nadeem Morrison Attending Unavailab Nadeem Lopez Admitting Unavailab le SEARS, ANIRUDH C Attending Unavailable NAEL FARIAS 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 Unavailable SEARS, ANIRUDH C Attending Unavailable NAEL FARIAS 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 Unavailable NAEL FARIAS Attending Unavailable NOHELIA MACHADO Attending Unavailable HEMEYER, EDWARD J Attending Unavailable NAEL FARIAS Attending Unavailable NAEL FARIAS Attending Unavailable NADEEM MORRISON Attending Unavailable NADEEM MORRISON Attending Unavailable NADEEM MORRISON Attending Unavailable NAEL FARIAS Attending Unavailable Nael Farias MD Unavailable Nael Farias MD 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 Provider Nohelia Machado DO Unavailable Unavailable Christopher Watkins MD Unavailable Unavailable Sandra Cole MD Unavailable Nael Farias MD 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 Provider [phone] Nael Farias MD Unavailable Nael Farias MD 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 Provider [phone] Sandra Cole MD Unavailable SANDRA COLE Attending Unavailable NAEL FARIAS 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 Unavailable ROLAND, CHRISTOPHER Attending Unavailable NAEL FARIAS 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 Unavailable SANDRA COLE Attending Unavailable NAEL FARIAS 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 Unavailable ROLAND, CHRISTOPHER Attending Unavailable NAEL FARIAS 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 Unavailable SANDRA COLE Attending Unavailable NAEL FARIAS 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 Unavailable Allergies Allergy Classification Reported Allergen(s) Allergy Type Date of Onset Reaction(s) Facility (20 sources) Dapsone; Translations: [dapsone] Drug Allergy 06-13-[address] [facility] (20 sources) Prochlorperazine; Translations: [Compazine] Drug Allergy [facility] Repository (20 sources) Sulfamethoxazole / Trimethoprim; Translations: [Bactrim DS TABS] Drug Allergy 02-06-20 23 Hives, Itching, Rash [facility]102 Work Phone: (20 sources) voriconazole; Translations: [voriconazole] Drug Allergy 08-04-20 23 Other [facility] 3 DO Work Phone: (1 source) Penicillins Allergy to substance 12-04-19 18 Unknown Reaction [facility] (18 sources) Prochlorperazine; Translations: [prochlorperazine] Drug Allergy 12-04-19 18 Other, Shortness of breath [facility] (6 sources) Sulfamethoxazole; Translations: [sulfamethoxazole] Drug Allergy 12-04-19 18 Unknown Reaction [facility] (11 sources) Trimethoprim; Translations: [trimethoprim] Drug Allergy 12-04-19 18 Other [facility] (1 source) Capsaicin Drug Allergy [facility] Repository (1 source) Sulfamethoxazole / Trimethoprim Drug Allergy [facility] Repository (5 sources) Capsaicin; Translations: [CAPSAICIN] Drug Allergy 01-05-20 24 Diarrhea [facility] (2 sources) Sulfamethoxazole / Trimethoprim; Translations: [SULFAMETHOXAZOLE-TR IMETHOPRIM] Drug Allergy 08-04-20 23 [facility] Repository (4 sources) Capsaicin Drug Allergy 01-05-20 24 Diarrhea [facility] (4 sources) levoFLOXacin Drug Allergy 02-06-20 23 [facility] Medications Current Medications Medication Drug Class(es) Dates Sig (Normalized) Sig (Original) baclofen 10 mg oral tablet (10 sources) gamma-Aminobutyric Acid-ergic Agonist Start: 03-25-2024 baclofen (Lioresal) 10 MG tablet Indications: Spasm Take by mouth; 1/2 tablet in the morning, 1/2 tablet at lunchtime, and 1 tablet in the evening. 180 tablet 03/25/2024 Active Start: 09-29-2023 End: 06-11-2024 take 10 mg by mouth twice daily Baclofen Discontinued 10 MG PO Twice daily May 19, 2024 12:00am May 19, 2024 4:34pm take 1 tablet by anthony th three times daily baclofen (Lioresal) 10 mg tablet Take 1 tablet (10 mg) by mouth 3 times a day. Active breath-actuated 120 actuat beclomethasone dipropionate 0.08 mg/actuat metered dose inhaler (1 source) Corticosteroid Start: 09-09-2023 End: 09-08-2024 beclomethasone dipropionate (Qvar) 80 mcg/actuation inhaler Indications: CVID (common variable immunodeficiency) (CMS/HCC) Inhale 2 Inhalations 2 times a day. Rinse mouth out after inhalation. 10.6 g 3 09/09/2023 09/08/2024 Active calcitriol 0.49680 mg oral capsule (20 sources) Vitamin D3 Analog Start: 04-15-2024 calcitriol ( Rocaltrol) 0.25 mcg capsule Indications: Hyperparathyroidism (Multi) TAKE 2 CAPSULES OVER THE WEEKENDS AND 1 CAPSULE THE OTHER DAYS 117 capsule 3 04/15/2024 Active Start: 06-13-2022 take 0.5 ug by mouth twice daily Calcitriol Active 0.5 MCG PO Twice daily June 13, 2022 12:00am 2xW; weekends Start: 07-28-2019 End: 05-19-2024 take 0.25 ug by mouth once daily Calcitriol Discontinued 0.25 MCG PO Daily June 13, 2022 12:00am May 19, 2024 3:58pm 5x week-takes on Start: 07-28-2019 Calcitriol 0.2 5 MCG Oral Capsule TAKE 2 CAPSULES OVER THE WEEKENDS AND 1 CAPSULE THE OTHER DAYS Quantity: 117 Refills: 3 Ordered: 07-Apr-2023 Christopher Watkins MD Start : 28-Jul-2019 Active Start: 07-28-2019 take 1 capsule by [facility] every other day Calcitriol 0.25 MCG Oral [...] Ordered: 08-Mar-2019 DO Active Cetirizine / Pseudoephedrine (4 sources) alpha-Adrenergic Agonist, Histamine-1 Receptor Antagonist Start: 06-13-2022 take 1 tablet by mouth once daily, then take 1 tablet by mouth every twelve hours Cetirizine-Pseudoephedrine (Zyrtec-D) 5-120 mg Tablet Extended Release 12 Hr Active 1 TAB PO Daily June 13, 2022 12:00am dextran 70 1 mg/ml / glycerin 2 mg/ml / hypromellose 3 mg/ml ophthalmic solution (6 sources) Plasma Volume Legal Archivist, Non-Standardized Chemical Allergen Start: 02-27-2019 artificial tears, [id number]-wvqadlzs, 0.1-0.3-0.2 % ophthalmic solution Administer into affected eye(s) 4 times a day as needed. 02/27/2019 Active 14 actuat fluticasone furoate 0.1 mg/actuat [...] Start : 13-Mar-2018 Active fluticasone / salmeterol (9 sources) Corticosteroid, beta2-Adrenergic Agonist Start: 05-31-2024 End: 08-29-2024 take 1 puff(s) by mouth twice daily fluticasone propion-salmeteroL (Wixela Inhub) 500-50 mcg/dose diskus inhaler Indications: Asthma, unspecified asthma severity, unspecified whether complicated, unspecified whether persistent (HHS-HCC) Inhale 1 puff 2 times a day. Rinse mouth with water after use to reduce aftertaste and incidence of candidiasis. Do not swallow. 180 each 2 05/31/2024 08/29/2024 Active Start: 12-26-2023 End: 12-25-2024 take 1 puff(s) by mouth twice daily fluticasone propion-salmeteroL (Wixela Inhub) 500-50 mcg/dose diskus inhaler Indications: Asthma, unspecified asthma severity, unspecified whether complicated, unspecified whether persistent (HHS-HCC) Inhale 1 puff 2 times a day. Rinse mouth with water after use to reduce aftertaste and incidence of candidiasis. Do not swallow. 60 each 11 12/26/2023 12/25/2024 Active Start: 09-15-2023 End: 12-05-2023 take 1 puff(s) by mouth twice daily fluticasone propion-salmeteroL (Advair Diskus) 500-50 mcg/dose diskus inhaler Indications: Asthma, unspecified asthma severity, unspecified whether complicated, unspecified whether persistent Inhale 1 puff 2 times a day. Rinse mouth with water after use to reduce aftertaste and incidence of candidiasis. Do not swallow. 60 each 11 09/15/2023 12/05/2023 Discontinued (Med List Cleanup) take 1 puff(s) by in halation once daily Fluticasone-Salmeterol (Wixela Inhub) 500-50 MCG/ACT aerosol powder Inhale 1 puff Daily Active End: 12-05-2023 take 1 puff(s) by mouth [...] severity, unspecified whether complicated, unspecified whether persistent ([facility]) Inhale 1 puff once daily. 3 each 12/17/2023 01/07/2024 Discontinued (Formulary change) fluticasone propion/salmete rol (WIXELA INHUB INHL) (1 source) fluticasone propion/salmeterol (WIXELA INHUB INHL) Inhale. 0 Active gabapentin 100 mg oral capsule (20 sources) Anti-epileptic Agent Start: 05-19-2024 End: 11-27-2024 take 1 capsule by mouth in the morning gabapentin (Neurontin) 100 MG capsule Indications: Chronic pain syndrome Take 1 capsule (100 mg) by mouth in the morning and in the evening 180 capsule 1 05/31/2024 11/27/2024 Active Start: 01-04-2024 take 1 capsule by [facility] twice daily gabapentin (Neurontin) 100 mg capsule Take 1 capsule (100 mg) by mouth 2 times a day. 01/04/2024 Active Start: 02-20-2023 End: 08-13-2023 take 1 capsule by mouth twice daily at bedtime gabapentin (Neurontin) 100 mg capsule TAKE 1 CAPSULE BY MOUTH TWICE DAILY in addition to the 300mg AT BEDTIME 0 02/25/2023 08/13/2023 Discontinued (Med List Cleanup) Start: 06-13-2020 End: 11-27-2024 gabapentin (Neurontin) 300 m g capsule Take by mouth once daily at bedtime. 06/13/2020 07/05/2024 Discontinued (Med List Cleanup) Start: 06-13-2020 Gabapentin 300 MG Oral Capsule Quantity: 0 Refills: 0 Ordered: 13-Jun-2020 DO Start : 13-Jun-2020 Active Homeopathic Products (Leg Cramp Relief) sublingual tablet (4 sources) Homeopathic Prod ucts (Leg Cramp Relief) sublingual tablet Place 1 tablet under the tongue if needed Active 300 ml immunoglobulin g, human 100 mg/ml injection (8 sources) Human Immunoglobulin G Start: 10-03-2023 End: 10-02-2024 immune globulin, human, (Gammagard Liquid) infusion Indications: CVID (common variable immunodeficiency) Infuse 400 mL (40 g) into a venous catheter every 30 (thirty) days. 400 mL 10/03/2023 10/02/2024 Active Immune Globulin, Human, 40 GM/400ML solution Inject 400 mL as directed every 30 (thirty) days Active losartan potassium 25 mg oral tablet (10 sources) Angiotensin 2 Receptor Muriel Start: 06-13-2022 [...] List Cleanup) take 1 tablet by anthony th once daily Magnesium 200 MG Oral Tablet TAKE 1 TABLET DAILY DIRECTED. Quantity: 0 Refills: 0 Ordered: 08-Nov-2021 DO Active magnesium gluconate 250 mg oral tablet (13 sources) Start: 06-13-2022 take 250 mg by mouth twice daily Magnesium Gluconate Active 250 MG PO Twice daily June 13, 2022 12:00am magnesium glucon ate 12.5 mg magne- sium (250 mg) tablet every 12 hours. Active take 1 tablet by mouth once yeyo y magnesium gluconate 250 MG tablet Take 1 tablet by mouth Daily Active omeprazole 20 mg delayed release oral capsule (20 sources) Proton Pump Inhibitor Start: 02-09-2016 End: 06-13-2022 omeprazole (PriLOSEC) [address] capsule Take by mouth once daily. 02/09/2016 Active Start: 02-09-2016 Omeprazole 20 MG Oral Capsule Delayed Release Quantity: 0 Refills: 0 Ordered: 09-Feb-2016 DO Start : 09-Feb-2016 Active take 1 tablet by anthony th before mealtime omeprazole OTC (PriLOSEC OTC) 20 MG EC tablet Take 20 mg by mouth in the morning. Take before meals. Do not crush, chew, or split.. Active ondansetron 8 mg oral tablet (20 [...] by mouth every 8 hours if needed. 02/01/2019 Active oxyCODONE hydrochloride 5 mg oral tablet (14 sources) Opioid Agonist Start: 11-12-2018 End: 05-19-2024 oxyCODONE (Roxicodone) 5 mg immediate release tablet Take by mouth every 4 hours if needed. 11/12/2018 Active take 1 tablet by anthony th every six hours as needed for pain oxyCODONE (Roxicodone) 5 MG immediate release tablet Take 5 mg by mouth every 6 (six) hours if needed for severe pain Active polyvinyl alcohol 0.014 ml/ml / povidone 6 mg/ml ophthalmic solution (7 sources) lubricating eye drops (polyvinyl alcohol-povidon,PF,) ophthalmic solution Administer 1-2 drops into both eyes. Active potassium 99 mg extended release oral tablet (20 sources) Start: 06-13-2022 take 99 mg by mouth once daily Potassium Active 99 MG PO Daily June 13, 2022 12:00am Potassium 99 MG tablet 1 (one) time each day at the same time. Active potassium citrate 99 mg oral tablet (6 sources) take 1 tablet by mouth once daily potassium citrate 99 mg capsule Take 1 tablet by mouth once daily. Active sildenafil 20 mg oral tablet (4 sources) Phosphodiesterase 5 Inhibitor Start: 11-05-19 sildenafil (Revatio) 20 MG tablet Indications: Erectile dysfunction due to diseases classified elsewhere Take 1 to 5 tablets as needed daily 90 tablet 1 11/05/2023 Active tiZANidine 4 mg oral capsule (8 sources) Central alpha-2 Adrenergic Agonist Start: 05-19-20 tiZANidine (Zanaflex) 4 mg capsule 2 mg once daily. 05/19/2024 Active Start: 05-19-2024 take 2 mg by mouth i n the morning tiZANidine (Zanaflex) 4 MG tablet Take 2 mg by mouth in the morning and 2 mg before bedtime. 05/19/2024 Active Start: 05-19-2024 take 0.5-1 tablets b y mouth twice daily as needed Tizanidine Active 0 PO Twice daily 60 May 19, 2024 12:00am 1/2-1 tablet orally twice daily PRN; valsartan 80 mg oral tablet (17 sources) Angiotensin 2 Receptor Muriel Start: 01-29-2023 valsartan (Diovan) 8 0 mg tablet Indications: Benign essential HTN TAKE 1 TABLET DAILY 90 tablet 02/13/2024 Active Completed/Discontinued Medications Medication Drug Class(es) Dates [...] (Therapy completed) cholecalciferol 0.125 mg oral tablet (15 sources) Vitamin D Start: 12-03-2017 End: 06-13-2022 take 1 tablet by mouth once daily Cholecalciferol (Vitamin D3) (Vitamin D3) 5,000 unit Tablet Discontinued 5000 UNIT PO Daily December 03, 2017 12:00am June 13, 2022 8:53am End: 07-05-2024 take 1 tablet by mouth once daily cholecalciferol (Vitamin D3) 50 MCG (2000 UT) tablet Take 1 tablet (50 mcg) by mouth once daily. 07/05/2024 Discontinued (Med List Cleanup) take 2 tablets by mo uth once daily cholecalciferol (Vitamin D3) 5,000 Units tablet Take 2 tablets (10,000 Units) by mouth once daily. Active take 1 capsule by mo uth in the morning cholecalciferol (Vitamin D-3) 250 MCG (10728 UT) capsule Take 1 capsule by mouth in the morning. Active chondroitin sulfates 200 mg / glucosamine hydrochloride 250 mg oral tablet (5 sources) Start: 12-03-2017 End: 06-13-2022 take 2 tablets by mouth once daily Glucosamine-Chondroitin (Osteo Bi-Flex) 250-200 mg Tablet Discontinued 2 TAB PO Daily December 03, 2017 12:00am June 13, 2022 8:53am diphenhydrAMINE hydrochloride 25 mg oral tablet (20 sources) Histamine-1 Receptor Antagonist Start: 01-16-2021 End: 07-05-2024 diphenhydrAMINE (Benadryl Allergy) 25 mg tablet Take by mouth. 01/16/2021 07/05/2024 Discontinued (Med List Cleanup) Start: 01-16-2021 Benadryl Aller gy 25 MG Oral Tablet take 20 minutes prior to infusion Quantity: 10 Refills: 0 Ordered: 16-Jan-2021 Kelsey GRACE, Sandra Daniel Start : 16-Jan-2021 Active ergocalciferol 65362 unt oral capsule (5 sources) Provitamin D2 Compound Vitamin D (Ergocalciferol) 1.25 MG (84540 UT) Oral Capsule Refills: 0 DO Active Vitamin D (Ergoc alciferol) 20164 UNIT Oral Capsule Refills: 0 Active fluconazole 200 mg oral tablet (3 sources) Azole Antifungal Start: 10-03-2022 End: 09-09-2023 take 1 tablet by mouth once daily fluconazole (Diflucan) 200 mg tablet Take 1 tablet (200 mg) by mouth once daily. 0 10/03/2022 09/09/2023 Discontinued (Therapy completed) Start: 03-20-2021 take 1 tablet by anthony th once daily Fluconazole 200 MG Oral Tablet take 1 tablet by mouth once daily for 10 days Quantity: 14 Refills: 0 Ordered: 20-Mar-2021 DO Start : 20-Mar-2021 Complete Hyaluronidase (12 sources) Endoglycosidase Start: 04-23-2023 End: 09-09-2023 HyQvia [...] 12-Oct-2021 Complete loratadine 10 mg oral tablet (5 sources) Start: 12-03-2017 End: 06-13-2022 take 1 tablet by mouth once daily Loratadine (Claritin) 10 mg Tablet Discontinued 10 MG PO Daily December 03, 2017 12:00am June 13, 2022 8:53am methocarbamol 750 mg oral tablet (19 sources) Muscle Relaxant Start: 12-19-2021 End: 05-19-2024 Methocarbamol Discontinued 750 MG PO As Directed June 13, 2022 12:00am May 19, 2024 3:57pm pot bicarb/potassium cit/ca (POTASSIUM BICARBONATE ORAL) (2 [...] Active traMADol hydrochloride 50 mg oral tablet (5 sources) Opioid Agonist Start: 12-03-2017 End: 06-13-2022 take 50 mg by mouth once daily Tramadol Discontinued 50 MG PO Daily December 03, 2017 12:00am June 13, 2022 8:53am traZODone hydrochloride 50 mg oral tablet (5 sources) Serotonin Reuptake Inhibitor Start: 12-03-2017 End: 06-13-2022 take 50 mg by mouth at bedtime Trazodone Discontinued 50 MG PO Bedtime December 03, 2017 12:00am June 13, 2022 8:53am Zinc (2 sources) End: 05-25-2024 take 0.5 tablet by mouth once daily zinc 50 MG tablet Take 0.5 tablets by mouth 1 (one) time each day 05/25/2024 Discontinued (Therapy completed) ZINC CITRATE (4 sources) End: 07-05-2024 ZINC CITRATE ORAL Take by mouth. 07/05/2024 Discontinued (Med List Cleanup) ZINC CITRATE ORA L Take by mouth. Active ZINC CITRATE ORA L Take by mouth. 0 Active Problems Active Problems Problem Classification Problem Date Documented Date Episodic/Chronic Asthma (15 sources) Asthma; Translations: [Unspecified asthma, uncomplicated] Onset: 3 09-10-2023 Chronic Cataract (20 sources) Nuclear senile cataract; Translations: [Senile nuclear sclerosis] Onset: 9 08-04-2023 Chronic Chronic kidney disease (20 sources) Chronic kidney disease stage 3; Translations: [Chronic kidney disease, Stage III (moderate)] Onset: 2 08-04-2023 Chronic Chronic kidney disease (5 sources) Chronic kidney disease; Translations: [CHRONIC KIDNEY DISEASE STAGE 3B] Onset: 2 Coagulation and hemorrhagic disorders (19 sources) Platelet count below reference range; Translations: [Thrombocytopenia, unspecified] Onset: 3 08-04-2023 Chronic Complication of device; implant or graft (20 sources) Graft versus host disease; Translations: [Fdigc-sppdyx-xnnn disease, unspecified] Chronic Deficiency and other anemia (1 source) Antineoplastic chemotherapy induced pancytopenia; Translations: [Antineoplastic chemotherapy induced pancytopenia] Onset: 3 Chronic Disorders of lipid metabolism (4 sources) Mixed hyperlipidemia; Translations: [Mixed hyperlipidemia] Onset: 3 02-05-2023 Chronic Esophageal disorders (4 sources) Gastroesophageal reflux disease; Translations: [Gastro-esophageal reflux disease without esophagitis] Onset: 3 02-05-2023 Chronic Essential hypertension (20 sources) Benign essential hypertension; Translations: [Benign essential hypertension] Onset: 3 08-04-2023 Chronic Genitourinary symptoms and ill-defined conditions (20 sources) H/O: kidney disease; Translations: [Urinary symptoms ] Onset: 2 Episodic Headache; including migraine (4 sources) Refractory migraine without aura; Translations: [Migraine without aura, intractable, with status migrainosus] Onset: 3 02-05-2023 Chronic Headache; including migraine (5 sources) Headache; Translations: [Head ache] Episodic Immunity disorders (20 sources) Hypogammaglobulinemia; Translations: [Hypogammaglobulinemia, unspecified] Onset: 3 Chronic Malaise and fatigue (4 sources) Fatigue; Translations: [Chronic fatigue, unspecified] Onset: 3 02-05-2023 Chronic Non-Hodgkin`s lymphoma (20 sources) Diffuse non-Hodgkin's lymphoma, large cell (clinical); Translations: [Other malignant lymphomas, unspecified site, extranodal and solid organ sites] Onset: 2 Chronic Non-Hodgkin`s lymphoma (20 sources) History of B-cell lymphoma; Translations: [Personal history of other lymphatic and hematopoietic neoplasms] Episodic Osteoarthritis (4 sources) Osteoarthritis; Translations: [Unspecified osteoarthritis, unspecified site] Onset: 3 02-05-2023 Chronic Other and ill-defined heart disease (4 sources) Systolic dysfunction; Translations: [Heart disease, unspecified] Onset: 3 02-05-2023 Chronic Other circulatory disease (20 sources) H/O: hypertension; Translations: [Personal history of other diseases of circulatory system] Episodic Other connective tissue disease (6 sources) Cramp; Translations: [Cramp of limb] Episodic Other connective tissue disease (1 source) Cramp and spasm; Translations: [Cramp and spasm] Onset: 3 Episodic Other connective tissue disease (3 sources) Other muscle spasm; Translations: [Spasm of muscle] 05-19-2024 Episodic Other diseases of kidney and ureters (20 sources) Renal mass; Translations: [Unspecified disorder of kidney and ureter] Onset: 3 08-04-2023 Chronic Other diseases of kidney and ureters (4 sources) Hyperparathyroidism due to renal insufficiency; Translations: [Secondary hyperparathyroidism of renal origin] Onset: 3 02-05-2023 Chronic Other diseases of kidney and ureters (4 sources) Secondary hyperparathyroidism of renal origin; Translations: [Secondary hyperparathyroidism of renal origin (Multi)] Onset: 3 Chronic Other diseases of kidney and ureters (5 sources) Renal mass; Translations: [Left renal mass] Episodic Other endocrine disorders (20 sources) Secondary hyperparathyroidism; Translations: [Secondary hyperparathyroidism (of renal origin)] Onset: 3 08-04-2023 Chronic Other nervous system disorders (1 source) Polyneuropathy, unspecified; Translations: [Polyneuropathy, unspecified] Onset: 2 Chronic Other nervous system disorders (2 sources) Chronic pain; Translations: [Other chronic pain] 05-19-2024 Chronic Other nervous system disorders (3 sources) Other chronic pain; Translations: [Other chronic pain] 05-19-2024 Chronic Other nervous system disorders (6 sources) Polyneuropathy due to drug; Translations: [Drug-induced polyneuropathy] Onset: 3 02-05-2023 Chronic Other nervous system disorders (6 sources) Chronic pain syndrome; Translations: [Chronic pain syndrome] Onset: 4 02-17-2024 Chronic Other nutritional; endocrine; and metabolic disorders (6 sources) Morbid obesity; Translations: [Morbid (severe) obesity due to excess calories] Onset: 4 10-23-2023 Chronic Other nutritional; endocrine; and metabolic disorders (6 sources) Body mass index 30+ - obesity; Translations: [Body mass index (BMI) 35.0-35.9, adult] Onset: 4 05-06-2024 Chronic Other screening for suspected conditions (not mental disorders or infectious disease) (4 sources) Other specified abnormal findings of blood chemistry; Translations: [OTH SPEC ABNORMAL FINDINGS BLD CHEM] Onset: 3 Episodic Other skin disorders (3 sources) Eruption; Translations: [Rash and other nonspecific skin eruption] Episodic Other upper respiratory disease (4 sources) Allergic rhinitis; Translations: [Other allergic rhinitis] Onset: 3 02-05-2023 Chronic Other upper respiratory infections (8 sources) Chronic sphenoidal sinusitis; Translations: [Chronic sphenoidal sinusitis] Chronic Residual codes; unclassified (5 sources) Procedure indicated; Translations: [Awaiting organ transplant status] Chronic Residual codes; unclassified (10 sources) Awaiting transplantation; Translations: [Awaiting organ transplant status] Chronic Residual codes; unclassified (4 sources) H/O: tissue/organ recipient; Translations: [Stem cells transplant status] Onset: 3 02-05-2023 Chronic Secondary malignancies (19 sources) Secondary malignant neoplasm of kidney; Translations: [Secondary malignant neoplasm of kidney] Onset: 3 08-04-2023 Chronic Secondary malignancies (4 sources) 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; Translations: [Secondary malignant neoplasm of kidney] Onset: 3 02-05-2023 Chronic Secondary malignancies (4 sources) Secondary malignant neoplasm of back; Translations: [Secondary malignant neoplasm of other parts of nervous system] Onset: 3 02-05-2023 Chronic Secondary malignancies (4 sources) Secondary malignant neoplasm of spleen; Translations: [Secondary malignant neoplasm of other digestive organs] Onset: 3 02-05-2023 Chronic Spondylosis; intervertebral disc disorders; other back problems (5 sources) Degeneration of cervical intervertebral disc; Translations: [Other cervical disc degeneration, unspecified cervical region] 05-19-2024 Chronic Systemic lupus erythematosus and connective tissue disorders (5 sources) Keratoconjunctivitis sicca; 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] Chronic Unclassified (3 sources) COUGH, UNSPECIFIED; Translations: [COUGH, UNSPECIFIED] Onset: 2 Past or Other Problems Problem Classification Problem Date Documented Date Episodic/Chronic Acute and unspecified renal failure (19 sources) Injury of kidney; Translations: [Acute kidney failure, unspecified] Onset: 08-04-2023 08-04-2023 Episodic E Codes: Adverse effects of medical drugs (5 sources) Adverse effect of antineoplastic and immunosuppressive drugs, sequela; Translations: [Adverse reaction to drug] Onset: 04-05-2022 02-05-2023 Episodic Lung disease due to external agents (5 sources) Drug-induced interstitial lung disorders, unspecified; Translations: [Drug-induced interstitial lung disorder] Onset: 04-05-2022 02-05-2023 Episodic Mood disorders (4 sources) Mood disorders Onset: 10-23-2023 10-23-2023 Neoplasms of unspecified nature or uncertain behavior (20 sources) 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; Translations: [Neoplasm of uncertain behavior of other and unspecified respiratory organs] Resolved: 06-28-2016 Episodic Other circulatory disease (19 sources) Orthostatic hypotension; Translations: [Orthostatic hypotension] Onset: 08-04-2023 08-04-2023 Episodic Other connective tissue disease (8 sources) Spasm; Translations: [Other muscle spasm] Onset: 09-11-2023 05-19-2024 Episodic Other diseases of veins and lymphatics (4 sources) Peripheral venous insufficiency; Translations: [Venous insufficiency (chronic) (peripheral)] Onset: 02-05-2023 02-05-2023 Episodic Other eye disorders (20 sources) Tear film insufficiency; Translations: [Tear film insufficiency, unspecified] Onset: 04-08-2019 Episodic Other eye disorders (20 sources) Dry eyes; Translations: [Tear film insufficiency, unspecified] Onset: 04-08-2019 Episodic Other nutritional; endocrine; and metabolic disorders (4 sources) Obesity caused by energy imbalance; Translations: [Other obesity due to excess calories] Onset: 02-05-2023 Resolved: 10-23-2023 10-23-2023 Chronic Pleurisy; pneumothorax; pulmonary collapse (4 sources) Thickening of pleura; Translations: [Pleural plaque without asbestos] Onset: 02-05-2023 02-05-2023 Episodic Unclassified (5 sources) Procedure indicated; Translations: [Stem cell transplant candidate] Unclassified (13 sources) Never smoked tobacco; Translations: [Never a smoker] Unclassified (1 source) COUGH, UNSPECIFIED; Translations: [COUGH, UNSPECIFIED] Onset: 07-18-2022 Unclassified (4 sources) Onset: 12-05-2023 Resolved: 06-11-2024 12-05-2023 NEGATED: Highlighted row has not occurred!Residual codes; unclassified (20 sources) Disease Episodic Results Test Name Value Interpretation Reference Range Facility ALL IMMUNOGLOBULIN Mio 07-01 TBH IMMUNOGLOBULIN G, QN 741 mg/dL 603 - 1613 mg/dL [facility] Comment on above: Performed at: [place] [id number] [employer] Driver: Benjamín Vora PhD, Phone: [phone] [facility] WITH AUTO DIFFon BASOPHILS ABSOLUTE AUTO 0.0 [facility] Basophils/100 WBC (Bld) 0.2 % 0.2 - 2.0 % [facility] Eosinophils/100 WBC (Bld) 4.6 % 0.9 - 7.0 % [facility] Erythrocyte distribution width (RBC) [Ratio] 15.4 % High 11.0 - 15.0 % [facility] Hematocrit (Bld) [Volume fraction] 43.8 % 42.0 - 54.0 % [facility] Hemoglobin (Bld) [Mass/Vol] 13.8 g/dL Low 14.0 - 18.0 g/dL [facility] IMMATURE GRANULOCYTES ABS AUTO 0.13 High [facility] Immature granulocytes/100 WBC (Bld) 2.9 % High 0.0 - 0.5 % [facility] Interpretation and review of laboratory results Abnormal [facility] LYMPHOCYTES ABSOLUTE AUTO 1.2 [facility] Lymphocytes/100 WBC (Bld) 27.0 % 20.5 - 60.0 % [facility] MCH (RBC) [Entitic mass] 26.6 pg 25.9 - 34.0 pg [facility] MCHC (RBC) [Mass/Vol] 31.5 g/dL 29.9 - 35.2 g/dL [facility] MCV (RBC) [Entitic vol] 84.6 fL 80.0 - 94.0 fL [facility] MONOCYTES ABSOLUTE AUTO 0.4 [facility] Monocytes/100 WBC (Bld) 7.7 % 1.7 - 12.0 % [facility] NEUTROPHILS ABSOLUTE AUTO 2.6 [facility] Neutrophils/100 WBC (Bld) 57.6 % 43.0 - 75.0 % [facility] Platelet mean volume (Bld) [Entitic vol] 11.2 fL 9.5 - 13.5 fL [facility] TBH EO # 0.2 [facility]H PLT 149 Low [facility] TB[facility] RBC 5.18 [facility] WBC 4.6 [facility] CLIN[facility] ISTAT XRay CREon 04-15-2024 ISTAT GFR 36.811 Normal [facility] Comment on above: Result Comment: PERF ORMED BY: [place] [address] PATHOLOGIST [employer]AIL SERVICE LEAD MERCHANDISER BRIAN BALL M.D. Performed By: #### I SCRE #### [address] MR cervical spine wo/w conon 04-15-2024 MR cervical spine wo/w con [facility] [place] [address] [place] [address] MRI Report Signed Patient: Katerina Danielle MR#: [id number] 0 : 1960 Acct:[id number] Age/Sex: 63 / M ADM Date: 04/15/24 Loc: Room: Type: [facility] Attending Dr: Nadeem Morrison DO Copies to: [...] Sorin Shah M.D.04/15/2024 10:18 PM Dictation Location: [place] [address] Transcribed By: [facility] 04/15/242217 Dictated By: Sorin Shah II, MD 04/15/242210 Signed By: 04/15/242217 Normal [facility] MR head/brain wo/w jeanne MR head/brain wo/w con [facility] [place] [address] MRI Report Signed Patient: Katerina Danielle MR#: [id number] 0 : 1960 Acct:[id number] Age/Sex: 63 / M ADM Date: 04/15/24 Loc: MR Room: Type: [facility] CLI Attending Dr: Nadeem Morrison DO Copies [...] Sorin Shah M.D.04/15/2024 10:23 PM Dictation Location: [place] [address] Transcribed By: [facility] 04/15/242222 Dictated By: Sorin Shah II, MD 04/15/242217 Signed By: 04/15/242222 [facility] No Panel InformationOrdered By: Nadeem Morrison on 04-15-2024 Bedside Estimated GFR (eGFR) 36.811 [facility] Whole blood creatinine measu rementOrdered By: Paramjitdean Sosaett on 04-15-2024 Creatinine [Mass/Vol] 2.0 mg/dL High 0.6-1.3 [facility] Comment on above: ER/ESD physician is notified/shown all ISTAT results.Critical values may be confirmed by laboratory testing ifdeemed necessary by ER attending doctor. Result Comment: ER/E SD physician is notified/shown all ISTAT results. Critical values may be confirmed by laboratory testing if deemed necessary by ER attending doctor. Performed By: #### I SCRE #### [address] Office Visit (Onco-Nephrolog y - Established)on 05-29-2023 Follow-up visit Diagnoses/Problems Benign essential HTN (401.1) (I10) CKD (chronic kidney disease), stage III (585.3) (N18.30) Hyperparathyroidism, secondary (588.81) (N25.81) Orders Benign essential HTN, CKD (chronic kidney disease), stage III, Hyperparathyroidism, secondary Basic Metabolic Panel; Status:Active; Requested for:53Gth8788; Parathormone Intact, Serum; Status:Active; Requested for:98Ilg2552; Provider Impressions 1- CKD III: His Cr [...] minutes prior (more content not included)... Normal [facility] Phone Note - Heme Onc-appoin tment question - 04/29/23 appton 04-28-2023 Phone Note - Heme Onc-appointment question - 04/29/23 appt Phone Call Information: Patient Demographics: Name: KATERINA DANIELLE Date: 1960 Address: [address] [place] [address] Date and Time: 28-Apr-2023 09:18 Caller Information: call from Call From: patient Primary Phone Number: [phone] Reason for Call: Reason for Callappointment question, [...] 09:34 by Tea Oro (N MGR) Normal [facility] Phone Note - Heme Onc-test r eneultson 04-15-2023 Phone Note - Heme Onc-test results Phone Call Information: Patient Demographics: Name: KATERINA DANIELLE Date: 1960 Address: [address] [place] [address] Date and Time: 15-Apr-2023 14:56 Caller Information: call from Call From: patient Primary Phone Number: [phone] Reason for Call: Reason for Calltest results Message: Message: Calling to see if Dr. Sears had time to see results from labs on Friday His PCP really didn't find anything wrong and wants to order a CT. Patient would like to know Dr. Sears's thoughts first before continuing with this. Should have come from [place]. Team Communication: Team Communications: I spoke Katerina [...] N/A Electronic Signatures: Zofia Smith (RN) (Signed 15-Apr-2023 15:30) Authored: Phone Call Information Ashley Dugan (UNIT SECT) (Signed 15-Apr-2023 14:58) Authored: Phone Call Information, Outpatient Medication Profile, Orders, Allergies, Results Last Updated: 15-Apr-2023 15:30 by Zofia Smith (RN) [facility] Phone Note - Heme Onc-pain - Pain/tenderness in abdomenon 04-08-2023 Phone Note - Heme Onc-pain - Pain/tenderness in abdomen Phone Call Information: Patient Demographics: Name: KATERINA DANIELLE Date: 1960 Address: [address] [place] [address] Date and Time: 08-Apr-2023 09:26 Caller Information: call from Call From: patient Primary Phone Number: [phone] Reason for Call: Reason for Callpain, Pain/tenderness [...] to patient. He has no additional questions. EdinsonRenato ortizll 04/08/2023 10:46 Outpatient Medication Profile: * Patient [...] 21-Jan-2023 08:08 N/A Electronic Signatures: Nikki Aguilera (RN) (Signed 08-Apr-2023 10:46) Authored: Phone Call Information Ashley Dugan (UNIT SECT) (Signed 08-Apr-2023 09:27) Authored: Phone Call Information, Outpatient Medication Profile, Orders, Allergies, Results Last Updated: 08-Apr-2023 10:46 by Nikki Aguilera (RN) [facility] Initial Visit (Pain Medicine )on 02-20-2023 [...] and evaluated by multiple physicians including his interior design principal, his oncologist. He has tried multiple different [...] no ea (more content not included)... Normal [facility] - [facility] Note - Heme Onc Scheduling Retrieve Patient Instructions: Patient Instructions: Patient Instructions: RetrievePatient Instructions Instructions patient is scheduled w/ Pain Mngmnt as requested. Earliest available 02/19. End of Visit Documentation: Clinic Location/Phone Number: Clinic Location/Phone Number: [facility] End Of Visit [facility] Report Item: Visit Summary given or mailed to patientyes mailed Electronic Signatures: Nicole Jeong (SEC) (Signed 31-Jan-2023 16:14) Authored: Retrieve Patient Instructions, End of Visit Documentation Last Updated: 31-Jan-2023 16:14 by Nicole Jeong) [facility] Phone Note - Heme Onc-appoin tment question - Referral to paion 01-31-2023 Phone Note - Heme Onc-appointment question - Referral to brian Phone Call Information: Patient Demographics: Name: KATERINA DANIELLE Date: 1960 Address: [address] [place] [address] Date and Time: 31-Jan-2023 12:13 Caller Information: call from Call From: patient Primary Phone Number: [phone] Reason for Call: Reason for Callappointment question, [...] 12:22 by Tea Oro (N MGR) Normal [facility] Office Visit (Onco-Nephrolog y - Established)on 01-29-2023 [...] transplant candidate Basic Metabolic Panel; Status:Active; Requested for:94Joq3667; Parathormone Intact, Serum; Status:Active; Requested for:64Srk1390; Phosphorus, Serum; Status:Active; Requested for:99Fiz1353; Unlinked Stop: Losartan Potassium 25 MG Oral [...] Known Food (more content not included)... Normal [facility] Phone Note - Heme Onc-order entryon 01-29-2023 Phone Note - Heme Onc-supervisor order takers Phone Call Information: Patient Demographics: Name: KATERINA DANIELLE Date: 1960 Address: [address] [place] [address] Primary Phone Number: [phone] Reason for Call: Reason for Callorder entry [...] 29-Jan-2023 14:13 by Zofia Smith (RN) Normal [facility] Tobacco Screening.on 023 Fall risk assessment b) One or more fall s in the last year [facility] 3 DO Work Phone: Tobacco use status CP b) No [facility] 3 DO Work Phone: Clinic Note - Heme Onc Sched ulingon 01-24-2023 Clinic Note - Heme Onc Scheduling Retrieve Patient Instructions: Patient Instructions: Patient Instructions: RetrievePatient Instructions End of Visit Documentation: Clinic Location/Phone Number: Clinic Location/Phone Number: [facility] End Of Visit [facility] Report Item: Visit Summary given or mailed to patientyes mailed to patient Electronic Signatures: Nicole Jeong (SEC) (Signed 24-Jan-2023 14:06) Authored: Retrieve Patient Instructions, End of Visit Documentation Last Updated: 24-Jan-2023 14:06 by Nicole Jeong (SEC) Normal [facility] Clinic Note - Heme Onc-Follo w Up [...] referred to Dr. Rodriguez in oncology at [facility] for evaluation. 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 Bone marrow biopsy was done which was negative for involvement with lymphoma . He also underwent an LP with low yield. Because of his meningeal enhancement and location close to PLANNING DIRECTOR, he was treated with hyperCVAD-MA. He received [...] was compared to this patient's previous biopsy ([id number]). The previous biopsy demonstrated areas of necrosis [...] TP53 mutations. The patient was enrolled on [id number], Venetoclax+RICE. Cycle 1 started 10/29/17. Had tumor [...] pneumonitis. The patient was recently readmitted to [facility] (06/16-06/18/18) for fever and PNA. 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 He completed by mouth Levaquin. The patient was admitted to [facility] (08/18-08/21/18) with a new PE. He was [...] CAR T Cell infusion 01/04/19 with tisagenlecleucel ([facility]) with preparative regimen of fludarabine and cytoxan. History of Present Illness: ID Statement: KATERINA DANIELLE is a 62 year old Male (more content not included)... Normal [facility] Clinic Note - Intakeon 01-22 Clinic Note [...] 22-Jan-2023 13:02 by Lindsay Yadav (PCNA) Normal [facility] COMPREHENSIVE PANELon 2022 ALBUMIN Canceled Normal [facility] Comment on above: Order Comment: TEST COMPREHENSIVE PANEL WAS CANCELLED, 01/21/2023 08:08 NO SPECIMEN RECEIVED IN LAB. Performed By: #### C MP #### [address] [place] [address] ALKALINE PHOSPHATASE Canceled Normal [facility] [place] Comment on above: Order Comment: TEST COMPREHENSIVE PANEL WAS CANCELLED, 01/21/2023 08:08 NO SPECIMEN RECEIVED IN LAB. Performed By: #### C MP #### [address] [place] [address] ALT Canceled Normal [facility] Comment on above: Order Comment: TEST COMPREHENSIVE PANEL WAS CANCELLED, 01/21/2023 08:08 NO SPECIMEN RECEIVED IN LAB. Result Comment: Yisel ents treated with Sulfasalazine may generate falsely decreased results for ALT. Performed By: #### C MP #### [address] [place] [address] ANION GAP Canceled Normal [facility] Comment on above: Order Comment: TEST COMPREHENSIVE PANEL WAS CANCELLED, 01/21/2023 08:08 NO SPECIMEN RECEIVED IN LAB. Performed By: #### C MP #### [address] [place] [address] AST Canceled Normal [facility] Comment on above: Order Comment: TEST COMPREHENSIVE PANEL WAS CANCELLED, 01/21/2023 08:08 NO SPECIMEN RECEIVED IN LAB. Performed By: #### C MP #### [address] [place] [address] BICARBONATE Canceled Normal [facility] Comment on above: Order Comment: TEST COMPREHENSIVE PANEL WAS CANCELLED, 01/21/2023 08:08 NO SPECIMEN RECEIVED IN LAB. Performed By: #### C MP #### [address] [place] [address] BILIRUBIN,TOTAL Canceled Normal [facility] Comment on above: Order Comment: TEST COMPREHENSIVE PANEL WAS CANCELLED, 01/21/2023 08:08 NO SPECIMEN RECEIVED IN LAB. Performed By: #### C MP #### [address] [place] [address] CALCIUM Canceled Normal [facility] Comment on above: Order Comment: TEST COMPREHENSIVE PANEL WAS CANCELLED, 01/21/2023 08:08 NO SPECIMEN RECEIVED IN LAB. Performed By: #### C MP #### [address] [place] [address] CHLORIDE Canceled Normal [facility] Comment on above: Order Comment: TEST COMPREHENSIVE PANEL WAS CANCELLED, 01/21/2023 08:08 NO SPECIMEN RECEIVED IN LAB. Performed By: #### C MP #### [address] [place] [address] CREATININE Canceled Normal [facility] Comment on above: Order Comment: TEST COMPREHENSIVE PANEL WAS CANCELLED, 01/21/2023 08:08 NO SPECIMEN RECEIVED IN LAB. Performed By: #### C MP #### [address] [place] [address] eGFR FEMALE Canceled Normal [facility] Comment on above: Order Comment: TEST COMPREHENSIVE PANEL WAS CANCELLED, 01/21/2023 08:08 NO SPECIMEN RECEIVED IN LAB. Result Comment: CALC ULATIONS OF ESTIMATED GFR ARE PERFORMED USING THE 2020 CKD-EPI STUDY REFIT EQUATION WITHOUT THE RACE VARIABLE FOR THE IDMS-TRACEABLE CREATININE METHODS. https://jasn.asnjournals.org/content/early//ASN.040526 7479 Performed By: #### C MP #### [address] [place] [address] eGFR MALE Canceled Normal [facility] Comment on above: Order Comment: TEST COMPREHENSIVE PANEL WAS CANCELLED, 01/21/2023 08:08 NO SPECIMEN RECEIVED IN LAB. Result Comment: CALC ULATIONS OF ESTIMATED GFR ARE PERFORMED USING THE 2020 CKD-EPI STUDY REFIT EQUATION WITHOUT THE RACE VARIABLE FOR THE IDMS-TRACEABLE CREATININE METHODS. https://jasn.asnjournals.org/content/early//ASN.648977 3447 Performed By: #### C MP #### [address] [place] [address] GLUCOSE Canceled Normal [facility] Comment on above: Order Comment: TEST COMPREHENSIVE PANEL WAS CANCELLED, 01/21/2023 08:08 NO SPECIMEN RECEIVED IN LAB. Performed By: #### C MP #### [address] [place] [address] POTASSIUM Canceled Normal [facility] Comment on above: Order Comment: TEST COMPREHENSIVE PANEL WAS CANCELLED, 01/21/2023 08:08 NO SPECIMEN RECEIVED IN LAB. Performed By: #### C MP #### [address] [place] [address] SODIUM Canceled Normal [facility] Comment on above: Order Comment: TEST COMPREHENSIVE PANEL WAS CANCELLED, 01/21/2023 08:08 NO SPECIMEN RECEIVED IN LAB. Performed By: #### C MP #### [address] [place] [address] TOTAL PROTEIN Canceled Normal [facility] Comment on above: Order Comment: TEST COMPREHENSIVE PANEL WAS CANCELLED, 01/21/2023 08:08 NO SPECIMEN RECEIVED IN LAB. Performed By: #### C MP #### [address] [place] [address] UREA NITROGEN Canceled Normal [facility] Comment on above: Order Comment: TEST COMPREHENSIVE PANEL WAS CANCELLED, 01/21/2023 08:08 NO SPECIMEN RECEIVED IN LAB. Performed By: #### C MP #### [address] [place] [address] LDHon 01-21-2023 LDH Canceled Normal [facility] Comment on above: Order Comment: TEST LDH WAS CANCELLED, 01/21/2023 08:08 NO SPECIMEN RECEIVED IN LAB. Performed By: #### L DH ####[facility] [place] [address] MAGNESIUMon 01-21-2023 MAGNESIUM Canceled Normal [facility] Comment on above: Order Comment: TEST MAGNESIUM WAS CANCELLED, 01/21/2023 08:08 NO SPECIMEN RECEIVED IN LAB. Performed By: #### M G ####[facility] [id number] [place] [address] Phone Note - Heme Onc-Insura nce Medical Hxon 01-14-2023 Phone Note - Heme Onc-Insurance Medical Hx Phone Call Information: Patient Demographics: Name: KATERINA DANIELLE Date: 1960 Address: [address] [place], [place] [address] [address] Date and Time: 14-Jan-2023 10:30 Caller Information: call from Call From: patient Primary Phone Number: [phone] Reason for Call: Reason for CallInsurance Medical Hx Message: Message: Insurance company re-evaluating him ([employer]). Would like a copy of medical history that was mailed to him last year, since his condition hasn't changed much- if anything, they have gotten worse. He wants edan- they need by 02/05/23. Otherwise benefits will be terminated. Sees Dr. Sears on 01/22/23. Asking for call back to discuss. Team Communication: Clinician note: contacted patient Team Communications: Spoke with the patient. States he received a notice from his disability insurance that he needs to be re-evaluated. [facility] Dr. Saleem's office sent in the form [...] 14:19 by Ashley Dugan (UNIT SECT) Normal [facility] IMMUNOGLOBULIN IGG QUANTITAT IVEon 01-03-2023 Immunoglobulin G, Qn, Serum 997 mg/dL Normal 603-1613 [facility] Comment on above: Performed By: #### M G, LDH, CMP #### [facility] [address] [place] [address] [address] Ladan Mcdonald Office Visiton 12-20-2022 Follow-up [...] signed for PCP and Nohelia Machado DO, Store Host in [facility]. If you develop fever, loss of taste [...] that point, PCP referred patient to a Store Host at [facility]. He saw Nohelia Machado DO, Store Host at [facility], did a breathing test and ordered [...] 1 PUFF (more content not included)... Normal [facility] HEREDITARY HEMOCHROMATOSIS, DNA ANALYSISon 10-21-2022 Hereditary Hemochromatosis Comment Normal [facility] Comment on above: Result Comment: Resu lts: c.845G>A (p.Gru908Hnt) - Not Detected c.187C>G (p.Iku15Vxe) - Detected, heterozygous c.193A>T (p.Kxc70Msn) - Not Detected Not associated with increased [...] for patients who are homozygous for c.845G>A (p.Ulu753Miu) and have yet to experience clinical symptoms. . Comments: The most common HFE variants associated with hereditary hemochromatosis are c.845G>A (p.Bpb179Bxx), c.187C>G (p.Blt26Lzk), c.193A>T (p.Rew30Xpy). While patients homozygous for c.845G>A (p.Ela962Azf) are the most likely to present clinical symptoms, less than 10% develop clinically significant iron overload with tissue and organ damage. . Genetic counseling is recommended to discuss the potential clinical implications of positive results, as well as recommendations for testing family members. Genetic Coordinators are available for health care providers to discuss results at [phone] ([phone]). . Test Details: Three variants analyzed: c.845G>A (p.Ydm763Cya), commonly referred to as C282Y c.187C>G (p.Mgo02Ihi), commonly referred to as H63D c.193A>T (p.Xii64Xkp), commonly referred to as S65C . Methods/Limitations: [...] developed and its performance characteristics determined by [employer]. It has not been cleared or approved by the Food and Drug Administration. . References: Jared BR, Keith PC, Shelby KV, Rishabh LW, Heriberto ; [employer]. Diagnosis and management of hemochromatosis: 2011 practice guideline by the [employer]. Hepatology. 2011 Mar;54(1):328-43. doi: 10.1002/hep.27312. PMID: 34830582; PMCID: [id number]. Consuelo G, Lisa P, Janeth CODY, Marcel H, Nick O, Jeffrey S, Ryder I, Frederick M, Candace S. [facility] best practice guidelines for the molecular genetic diagnosis of hereditary hemochromatosis (HH). Eur J Hum Winter. 2016 Apr;24(4):479-95. doi: 10.1038/ejhg.2015.128. Epub 2014Mar 08. PMID: 55794726; PMCID: [id number]. . Leslee Cadena, PhD, [facility] Dioni Trinidad, PhD Sunday Sofia, PhD, [facility] Angelito Beard, PhD, [facility] Tom Wills, PhD, [facility] Helio Henry, PhD, [facility] Katie Collazo, PhD, [facility] Yun Peterson, PhD, [facility] Performed By: #### H HDNA #### [facility] [address] [place] [address] Dr. Ladan Mcdonald FERRITINon 10-11-2022 Ferritin [Mass/Vol] 1497.0 ng/mL Critically high 26.0-388. 0 [facility] Comment on above: Performed By: #### M G, LDH, CMP #### [facility] [address] [place] [address] Dr. Ladan Mcdonald IRON AND TIBCon 10-11-2022 % SATURATION 35.6 % Normal [facility] Comment on above: Performed By: #### M G, LDH, CMP #### [facility] [address] [place] [address] Dr. Ladan Mcdonald Iron [Mass/Vol] 99.0 ug/dL Normal 65.0-175.0 [facility] Comment on above: Performed By: #### M G, LDH, CMP #### [facility] [address] [place] [address] Dr. Ladan Mcdonald TIBC DIRECT 278.0 ug/dL Normal 250.0-450.0 [facility] Comment on above: Performed By: #### M G, LDH, CMP #### [facility] [address] [place] [address] Dr. Ladan Mcdonald MAGNESIUMon 10-11-2022 Magnesium [Mass/Vol] 2.2 mg/dL Normal 1.8-2.4 [facility] Comment on above: Performed By: #### M G, LDH, CMP #### [facility] [address] [place] [address] Dr. Ladan Mcdonald TSHon 10-11-2022 TSH 0.839 uIU/mL Normal 0.358-3.740 [facility] Comment on above: Performed By: #### M G, LDH, CMP #### [facility] [address] [place] [address] Dr. Ladan Mcdonald VIT B12 AND FOLATEon 023 Cobalamin (Vitamin B12) [Mass/Vol] 632.0 pg/mL Normal 193.0-986.0 [facility] Comment on above: Performed By: #### F ERR, B12FOL, FETIBC #### [facility] [address] [place], [place] [address] Dr. Ladan Mcdonald FOLATE 10.20 ng/mL Normal 8.60-58.90 [facility] Comment on above: Performed By: #### F ERR, B12FOL, FETIBC #### [facility] [address] [place], [place] [address] Dr. Ladan Mcdonald CBC AND DIFFERENTIALon 10-10 % AUTOMATED IMMATURE GRAN Canceled Normal [facility] Comment on above: Order Comment: TEST CBC AND DIFFERENTIAL WAS CANCELLED, 10/10/2022 15:36 NO SAMPLE RECIEVED/RELEASED IN ERROR Result Comment: Caryn ture Granulocyte Count (IG) includes promyelocytes, myelocytes and metamyelocytes but does not include bands. Percent differential counts (%) should be interpreted in the context of the absolute cell counts (cells/L). Performed By: #### C BCDF #### [address] [place] [address] % BASOPHIL Canceled Normal [facility] Comment on above: Order Comment: TEST CBC AND DIFFERENTIAL WAS CANCELLED, 10/10/2022 15:36 NO SAMPLE RECIEVED/RELEASED IN ERROR Performed By: #### C BCDF #### [address] [place] [address] % EOSINOPHIL Canceled Normal [facility] Comment on above: Order Comment: TEST CBC AND DIFFERENTIAL WAS CANCELLED, 10/10/2022 15:36 NO SAMPLE RECIEVED/RELEASED IN ERROR Performed By: #### C BCDF #### [address] [place] [address] % LYMPHOCYTE Canceled Normal [facility] Comment on above: Order Comment: TEST CBC AND DIFFERENTIAL WAS CANCELLED, 10/10/2022 15:36 NO SAMPLE RECIEVED/RELEASED IN ERROR Performed By: #### C BCDF #### [address] [place] [address] % MONOCYTE Canceled Normal [facility] Comment on above: Order Comment: TEST CBC AND DIFFERENTIAL WAS CANCELLED, 10/10/2022 15:36 NO SAMPLE RECIEVED/RELEASED IN ERROR Performed By: #### C BCDF #### [address] [place] [address] % NEUTROPHIL Canceled Normal [facility] Comment on above: Order Comment: TEST CBC AND DIFFERENTIAL WAS CANCELLED, 10/10/2022 15:36 NO SAMPLE RECIEVED/RELEASED IN ERROR Performed By: #### C BCDF #### [address] [place] [address] BASOPHIL Canceled Normal [facility] Comment on above: Order Comment: TEST CBC AND DIFFERENTIAL WAS CANCELLED, 10/10/2022 15:36 NO SAMPLE RECIEVED/RELEASED IN ERROR Performed By: #### C BCDF #### [address] [place] [address] DIFFERENTIAL Canceled Normal [facility] Comment on above: Order Comment: TEST CBC AND DIFFERENTIAL WAS CANCELLED, 10/10/2022 15:36 NO SAMPLE RECIEVED/RELEASED IN ERROR Performed By: #### C BCDF #### [address] [place] [address] EOSINOPHIL Canceled Normal [facility] Comment on above: Order Comment: TEST CBC AND DIFFERENTIAL WAS CANCELLED, 10/10/2022 15:36 NO SAMPLE RECIEVED/RELEASED IN ERROR Performed By: #### C BCDF #### [address] [place] [address] HCT Canceled Normal [facility] Comment on above: Order Comment: TEST CBC AND DIFFERENTIAL WAS CANCELLED, 10/10/2022 15:36 NO SAMPLE RECIEVED/RELEASED IN ERROR Performed By: #### C BCDF #### [address] [place] [address] HGB Canceled Normal [facility] Comment on above: Order Comment: TEST CBC AND DIFFERENTIAL WAS CANCELLED, 10/10/2022 15:36 NO SAMPLE RECIEVED/RELEASED IN ERROR Performed By: #### C BCDF #### [address] [place] [address] LYMPHOCYTE Canceled Normal [facility] Comment on above: Order Comment: TEST CBC AND DIFFERENTIAL WAS CANCELLED, 10/10/2022 15:36 NO SAMPLE RECIEVED/RELEASED IN ERROR Performed By: #### C BCDF #### [address] [place] [address] MCHC Canceled Normal [facility] Comment on above: Order Comment: TEST CBC AND DIFFERENTIAL WAS CANCELLED, 10/10/2022 15:36 NO SAMPLE RECIEVED/RELEASED IN ERROR Performed By: #### C BCDF #### [address] [place] [address] MCV Canceled Normal [facility] Comment on above: Order Comment: TEST CBC AND DIFFERENTIAL WAS CANCELLED, 10/10/2022 15:36 NO SAMPLE RECIEVED/RELEASED IN ERROR Performed By: #### C BCDF #### [address] [place] [address] MONOCYTE Canceled Normal [facility] Comment on above: Order Comment: TEST CBC AND DIFFERENTIAL WAS CANCELLED, 10/10/2022 15:36 NO SAMPLE RECIEVED/RELEASED IN ERROR Performed By: #### C BCDF #### [address] [place] [address] NEUTROPHIL Canceled Normal [facility] Comment on above: Order Comment: TEST CBC AND DIFFERENTIAL WAS CANCELLED, 10/10/2022 15:36 NO SAMPLE RECIEVED/RELEASED IN ERROR Performed By: #### C BCDF #### [address] [place] [address] PLT Canceled Normal [facility] Comment on above: Order Comment: TEST CBC AND DIFFERENTIAL WAS CANCELLED, 10/10/2022 15:36 NO SAMPLE RECIEVED/RELEASED IN ERROR Performed By: #### C BCDF #### [address] [place] [address] RBC Canceled Normal [facility] Comment on above: Order Comment: TEST CBC AND DIFFERENTIAL WAS CANCELLED, 10/10/2022 15:36 NO SAMPLE RECIEVED/RELEASED IN ERROR Performed By: #### C BCDF #### [address] [place] [address] RDW-CV Canceled Normal [facility] Comment on above: Order Comment: TEST CBC AND DIFFERENTIAL WAS CANCELLED, 10/10/2022 15:36 NO SAMPLE RECIEVED/RELEASED IN ERROR Performed By: #### C BCDF #### [address] [place] [address] WBC Canceled Normal [facility] Comment on above: Order Comment: TEST CBC AND DIFFERENTIAL WAS CANCELLED, 10/10/2022 15:36 NO SAMPLE RECIEVED/RELEASED IN ERROR Performed By: #### C BCDF #### [address] [place] [address] Clinic Note - Heme Onc Sched ulingon 10-10-2022 Clinic Note - Heme Onc Scheduling Retrieve Patient Instructions: Patient Instructions: Patient Instructions: RetrievePatient Instructions Instructions Typenutrition Instructions Return to clinic Please call the office with any new or worsening symptoms in the meantime. End of Visit Documentation: Clinic Location/Phone Number: Clinic Location/Phone Number: [address] [place] [address] End Of Visit MU Report Item: Visit Summary given or mailed to patientyes Electronic Signatures: Whit Dugan (SEC) (Signed 10-Oct-2022 14:02) Authored: Retrieve Patient Instructions, End of Visit Documentation Last Updated: 10-Oct-2022 14:02 by Whit Dugan (SEC) Normal [facility] Clinic Note - Heme Onc-Follo w Up [...] referred to Dr. Rodriguez in oncology at [facility] for evaluation. 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 Bone marrow biopsy was done which was negative for involvement with lymphoma . He also underwent an LP with low yield. Because of his meningeal enhancement and location close to [employer], he was treated with hyperCVAD-MA. He received [...] was compared to this patient's previous biopsy ([id number]). The previous biopsy demonstrated areas of necrosis [...] TP53 mutations. The patient was enrolled on [id number], Venetoclax+RICE. Cycle 1 started 10/29/17. Had tumor [...] pneumonitis. The patient was recently readmitted to [facility] (06/16-06/18/18) for fever and PNA. 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 He completed by mouth Levaquin. The patient was admitted to [facility] (08/18-08/21/18) with a new PE. He was [...] CAR T Cell infusion 01/04/19 with tisagenlecleucel ([employer]/Viigo) with preparative regimen of fludarabine and cytoxan. History of Present Illness: ID Statement: KATERINA DANIELLE is a 61 year old Male (more content not included)... Normal [facility] Clinic Note - Intakeon 10-10 Clinic Note [...] 3 Weights & HeightsDate: Weight/Scale Type:Height: 15-Aug-2022 12:07398.7 kg 182.5 cm 21-Feb-2022 13:30161 kg 182.5 cm 21-Nov-2021 11:30452.3 kg / standing gbhiw054.5 cm SpO2 (%)94 % SpO2 Patient Onroom [...] 12:45 by Linda Romero (PAKO PAGAN) Normal [facility] CBC AUTO DIFFon 09-27-2022 BASO # 0.0 103/ul Normal 0.0-0.1 [facility] Comment on above: Performed By: #### C BC #### [facility] [address] [place] [address] [address] Ladan Mcdonald Basophils/100 WBC (Bld) 0.3 % Normal 0.2-2.0 [facility] Comment on above: Performed By: #### C BC #### [facility] [address] [place] [address] [address] Ladan Mcdonald EO # 0.2 103/ul Normal 0.0-0.7 [facility] Comment on above: Performed By: #### C BC #### [facility] [address] [place] [address] Dr. Ladan Mcdonald Eosinophils/100 WBC (Bld) 4.8 % Normal 0.9-7.0 [facility] Comment on above: Performed By: #### C BC #### [facility] [address] [place] [address] Dr. Ladan Mcdonald Erythrocyte distribution width (RBC) [Ratio] 16.1 % Critically high 11.0-15.0 [facility] Comment on above: Performed By: #### C BC #### [facility] [address] [place] [address] Dr. Ladan Mcdonald Hematocrit (Bld) [Volume fraction] 46.7 % Normal 42.0-54.0 [facility] Comment on above: Performed By: #### C BC #### [facility] [address] [place] [address] Dr. Ladan Mcdonald Hemoglobin (Bld) [Mass/Vol] 13.6 g/dL Critically low 14.0-18.0 [facility] Comment on above: Performed By: #### C BC #### [facility] [address] [place] [address] Dr. Ladan Mcdonald IG # 0.02 10e3/ul Normal 0.00-0.03 [facility] Comment on above: Performed By: #### C BC #### [facility] [address] [place] [address] Dr. Ladan Mcdonald IG % 0.5 % Normal 0.0-0.5 [facility] Comment on above: Performed By: #### C BC #### [facility] [address] [place] [address] Dr. Ladan Mcdonald LYMPH # 1.0 103/ul Critically low 1.2-3.8 [facility] Comment on above: Performed By: #### C BC #### [facility] [address] [place] [address] Dr. Ladan Mcdonald Lymphocytes/100 WBC (Bld) 26.1 % Normal 20.5-60.0 [facility] Comment on above: Performed By: #### C BC #### [facility] [address] [place] [address] Dr. Ladan Mcdonald MANUAL DIFF REQ NO Normal [facility] Comment on above: Performed By: #### C BC #### [facility] [address] [place] [address] Dr. Ladan Mcdonald MCH (RBC) [Entitic mass] 26.6 pg Normal 25.9-34.0 [facility] Comment on above: Performed By: #### C BC #### [facility] [address] [place] [address] Dr. Ladan Mcdonald MCHC (RBC) [Mass/Vol] 29.1 g/dL Critically low 29.9-35.2 [facility] Comment on above: Performed By: #### C BC #### [facility] [address] [place] [address] Dr. Ladan Mcdonald MCV (RBC) [Entitic vol] 91.4 fL Normal 80.0-94.0 [facility] Comment on above: Performed By: #### C BC #### [facility] [address] [place] [address] Dr. Ladan Mcdonald MONO # 0.4 103/ul Normal 0.3-0.8 [facility] Comment on above: Performed By: #### C BC #### [facility] [address] [place] [address] Dr. Ladan Mcdonald Monocytes/100 WBC (Bld) 8.8 % Normal 1.7-12.0 [facility] Comment on above: Performed By: #### C BC #### [facility] [address] [place] [address] Dr. Ladan Mcdonald NEUT # 2.4 103/ul Normal 1.4-6.5 [facility] Comment on above: Performed By: #### C BC #### [facility] [address] [place] [address] Dr. Ladan Mcdonald Neutrophils/100 WBC (Bld) 59.5 % Normal 43.0-75.0 [facility] Comment on above: Performed By: #### C BC #### [facility] [address] [place] [address] Dr. Ladan Mcdonald Platelet mean volume (Bld) [Entitic vol] 10.1 fL Normal 9.5-13.5 [facility] Comment on above: Performed By: #### C BC #### [facility] [address] [place] [address] [address] Ladan Mcdonald PLT 132 103/ul Critically low 150-450 [facility] Comment on above: Performed By: #### C BC #### [facility] [address] [place] [address] Dr. Ladan Mcdonald RBC 5.11 106/ul Normal 4.70-6.10 [facility] Comment on above: Performed By: #### C BC #### [facility] [address] [place] [address] Dr. Ladan Mcdonald WBC 4.0 103/ul Normal 4.0-11.0 [facility] Comment on above: Performed By: #### C BC #### [facility] [address] [place] [address] Dr. Ladan Mcdonald LDHon 09-27-2022 LDH 256 U/L Critically high 85-227 [facility] Comment on above: Performed By: #### M G, LDH, CMP #### [facility] [address] [place] [address] Dr. Ladan Mcdonald MAGNESIUMon 09-27-2022 Magnesium [Mass/Vol] 2.1 mg/dL Normal 1.8-2.4 [facility] Comment on above: Performed By: #### M G, LDH, CMP #### [facility] [address] [place] [address] Dr. Ladan Mcdonald PROF 14(COMP METB)on 023 Albumin [Mass/Vol] 3.5 g/dL Normal 3.4-5.0 [facility] Comment on above: Performed By: #### M G, LDH, CMP #### [facility] [address] [place] [address] [address] Ladan Mcdonald Albumin/Globulin [Mass ratio] 1.0 {ratio} Normal [facility] Comment on above: Performed By: #### M G, LDH, CMP #### [facility] [address] [place] [address] [address] Ladan Mcdonald ALP [Catalytic activity/Vol] 121 U/L Critically high 46-116 [facility] Comment on above: Performed By: #### M G, LDH, CMP #### [facility] [address] [place] [address] [address] Ladan Mcdonald ALT [Catalytic activity/Vol] 51 U/L Normal 16-63 [facility] Comment on above: Performed By: #### M G, LDH, CMP #### [facility] [address] [place] [address] Dr. Ladan Mcdonald Anion gap [Moles/Vol] 11.7 mmol/L Normal [facility] Comment on above: Performed By: #### M G, LDH, CMP #### [facility] [address] [place] [address] [address] Ladan Mcdonald AST [Catalytic activity/Vol] 33 U/L Normal 15-37 [facility] Comment on above: Performed By: #### M G, LDH, CMP #### [facility] [address] [place] [address] Dr. Ladan Mcdonald Bilirubin [Mass/Vol] 0.4 mg/dL Normal 0.2-1.0 [facility] Comment on above: Performed By: #### M G, LDH, CMP #### [facility] [address] [place] [address] Dr. Ladan Mcdonald Calcium [Mass/Vol] 9.4 mg/dL Normal 8.5-10.1 [facility] Comment on above: Performed By: #### M G, LDH, CMP #### [facility] [address] [place] [address] [address] Ladan Mcdonald Chloride [Moles/Vol] 104 mmol/L Normal 98-107 [facility] Comment on above: Performed By: #### M G, LDH, CMP #### [facility] [address] [place] [address] [address] Ladan Mcdonald CO2 [Moles/Vol] 29.0 mmol/L Normal 21.0-32.0 [facility] Comment on above: Performed By: #### M G, LDH, CMP #### [facility] [address] [place] [address] [address] Ladan Mcdonald Creatinine [Mass/Vol] 1.61 mg/dL Critically high 0.70-1.30 [facility] Comment on above: Performed By: #### M G, LDH, CMP #### [facility] [address] [place] [address] [address] Ladan Mcdonald EGFR-AF [place] 53 mL/min/1.73m2 Critically low >=60 [facility] Comment on above: Performed By: #### M G, LDH, CMP #### [facility] [address] [place] [address] Dr. Ladan Mcdonald EGFR-NON AF [place] 44 mL/min/1.73m2 Critically low >=60 [facility] Comment on above: Performed By: #### M G, LDH, CMP #### [facility] [address] [place] [address] [address] Ladan Mcdonald Globulin (S) [Mass/Vol] 3.6 g/dL Normal [facility] Comment on above: Performed By: #### M G, LDH, CMP #### [facility] [address] [place] [address] [address] Ladan Mcdonald Glucose [Mass/Vol] 107 mg/dL Critically high 74-106 [facility] Comment on above: Performed By: #### M G, LDH, CMP #### [facility] [address] [place] [address] [address] Ladan Mcdonald Potassium [Moles/Vol] 4.7 mmol/L Normal 3.5-5.1 [facility] Comment on above: Performed By: #### M G, LDH, CMP #### [facility] [address] [place] [address] [address] Ladan Mcdonald Protein [Mass/Vol] 7.1 g/dL Normal 6.4-8.2 [facility] Comment on above: Performed By: #### M G, LDH, CMP #### [facility] [id number] Ladan Mcdonald Sodium [Moles/Vol] 140 mmol/L Normal 136-145 [facility] Comment on above: Performed By: #### M G, LDH, CMP #### [facility] [id number] Ladan Mcdonald Urea nitrogen [Mass/Vol] 27.0 mg/dL Critically high 7.0-18.0 [facility] Comment on above: Performed By: #### M G, LDH, CMP #### [facility] [id number] Ladan Mcdonald Urea nitrogen/Creatinine [Mass ratio] 16.8 mg/mg Normal [facility] Comment on above: Performed By: #### M G, LDH, CMP #### [facility] [address] [place] [address] [address] Ladan Mcdonald Phone Note - Heme Onc-lab re quisitionon 09-27-2022 Phone Note - Heme Onc-lab requisition Phone Call Information: Patient Demographics: Name: KATERINA DANIELLE Date: 1960 Address: [address] [place] [address] Date and Time: 27-Sep-2022 08:29 Caller Information: call from Primary Phone Number: [phone] Reason for Call: Reason for Calllab requisition Message: Message: Needs lab order sent to [facility] in [place], [place] or [facility] in [place], [place]. Has appointment scheduled for next . Patient called back- fax number to lab at [facility] [place]: [phone] Team Communication: Team Communications: RN printed and this bilingual secretary faxed. Confirmation received 10:21am. Ashley Dugan [...] 27-Sep-2022 10:26 by Ashley Dugan (UNIT SECT) [facility] Phone Note - Heme Onc-refill medication...on 09-06-2022 Phone Note - Heme Onc-refill medication... Phone Call Information: Patient Demographics: Name: KATERINA DANIELLE Date: 1960 Address: [address] [place] [address] Date and Time: 06-Sep-2022 10:40 Caller Information: call from Call From: patient Primary Phone Number: [phone] Reason for Call: Reason for Callrefill medication Message: Message: Patient fills Gabapentin with [facility] now [facility]. He has 14 pills left. They will not refill for him until 09/22/22 and then say it will be 1-2 weeks before delivery. He will be out of medication by then. Asking if office can rectify Team Communication: Clinician note: contacted patient Disposition: Rx sent by eprescribe Team Communications: Spoke with Yas at [facility]. States patient needs a refill for gabapentin sent in and then he will be able to receive the medication within 7 business days or less. Lamoda, Tea 09/06/2022 11:[address] Sears: KATERINA DANIELLE ([id number]): Needs refill of gabapentin 300mg daily please Anirudh Sears MD09/06/2022 11:17 AM Yes ok to refill Spoke with the patient. Provided the patient the update. Refill sent in to patient's mail order pharmacy. pt had no further questions or concerns at this time, Lamoda, Tea 09/06/2022 11:22 Outpatient Medication Profile: * Patient [...] 11:22 by Tea Oro (N MGR) Normal [facility] Note - Heme Onc-Follo w Up [...] referred to Dr. Rodriguez in oncology at [facility] for evaluation. 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 Bone marrow biopsy was done which was negative for involvement with lymphoma . He also underwent an LP with low yield. Because of his meningeal enhancement and location close to [employer], he was treated with hyperCVAD-MA. He received [...] was compared to this patient's previous biopsy ([id number]). The previous biopsy demonstrated areas of necrosis [...] TP53 mutations. The patient was enrolled on [id number], Venetoclax+SCOTT. Cycle 1 started 10/29/17. Had tumor lysis [...] pneumonitis. The patient was recently readmitted to [facility] (06/16-06/18/18) for fever and PNA. 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 He completed by mouth Levaquin. The patient was admitted to [facility] (08/18-08/21/18) with a new PE. He was [...] CAR T Cell infusion 01/04/19 with tisagenlecleucel ([employer]/Viigo) with preparative regimen of fludarabine and cytoxan. History of Present Illness: ID Statement: KATERINA DANIELLE is a 61 year old Male (more content not included)... Normal [facility] Note - Intakeon 08-15 Clinic Note [...] 3 Weights & HeightsDate: Weight/Scale Type:Height: 21-Feb-2022 13:21831 kg 182.5 cm 21-Nov-2021 11:43533.3 kg / standing .5 cm 23-Aug-2021 13:25455.3 kg / standing .5 cm SpO2 (%)94 [...] for us to knowno [facility] of [facility] Treatmentno Violence: Are you or have you been threatened or abused physically,emotionally or sexually abused by anyoneno Do you feel UNSAFE going back to the place you are livingno Depression: Past 2 wks: [place] down, depressed or hopelessno Past 2 wks: [place] little interest/pleasure doing thingsno Any Thoughts of [...] 12:44 by Linda Romero (PAKO II) Normal [facility] CBC AUTO DIFFon 08-12-2022 BASO # 0.0 103/ul Normal 0.0-0.1 [facility] Comment on above: Performed By: #### C BC #### [facility] [address] [address] [address] Ladan Mcdonald Basophils/100 WBC (Bld) 0.5 % Normal 0.2-2.0 [facility] Comment on above: Performed By: #### C BC #### [facility] [address] [address] [address] Ladan Mcdonald EO # 0.2 103/ul Normal 0.0-0.7 [facility] Comment on above: Performed By: #### C BC #### [facility] [address] [place] [address] Dr. Ladan Mcdonald Eosinophils/100 WBC (Bld) 4.3 % Normal 0.9-7.0 [facility] Comment on above: Performed By: #### C BC #### [facility] [address] [place] [address] Dr. Ladan Mcdonald Erythrocyte distribution width (RBC) [Ratio] 15.7 % Critically high 11.0-15.0 [facility] Comment on above: Performed By: #### C BC #### [facility] [address] [place] [address] Dr. Ladan Mcdonald Hematocrit (Bld) [Volume fraction] 44.2 % Normal 42.0-54.0 [facility] Comment on above: Performed By: #### C BC #### [facility] [address] [place] [address] Dr. Ladan Mcdonald Hemoglobin (Bld) [Mass/Vol] 14.0 g/dL Normal 14.0-18.0 [facility] Comment on above: Performed By: #### C BC #### [facility] [address] [place] [address] Dr. Ladan Mcdonald IG # 0.06 10e3/ul Critically high 0.00-0.03 [facility] Comment on above: Performed By: #### C BC #### [facility] [address] [place] [address] Dr. Ladan Mcdonald IG % 1.5 % Critically high 0.0-0.5 [facility] Comment on above: Performed By: #### C BC #### [facility] [address] [place] [address] Dr. Ladan Mcdonald LYMPH # 1.4 103/ul Normal 1.2-3.8 [facility] Comment on above: Performed By: #### C BC #### [facility] [address] [place] [address] Dr. Ladan Mcdonald Lymphocytes/100 WBC (Bld) 35.2 % Normal 20.5-60.0 [facility] Comment on above: Performed By: #### C BC #### [facility] [address] [place] [address] Dr. Ladan Mcdonald MANUAL DIFF REQ NO Normal [facility] Comment on above: Performed By: #### C BC #### [facility] [address] [place] [address] Dr. Ladan Mcdonald MCH (RBC) [Entitic mass] 26.4 pg Normal 25.9-34.0 [facility] Comment on above: Performed By: #### C BC #### [facility] [address] [place] [address] Dr. Ladan Mcdonald MCHC (RBC) [Mass/Vol] 31.7 g/dL Normal 29.9-35.2 [facility] Comment on above: Performed By: #### C BC #### [facility] [address] [place] [address] Dr. Ladan Mcdonald MCV (RBC) [Entitic vol] 83.2 fL Normal 80.0-94.0 [facility] Comment on above: Performed By: #### C BC #### [facility] [address] [place] [address] Dr. Ladan Mcdonald MONO # 0.3 103/ul Normal 0.3-0.8 [facility] Comment on above: Performed By: #### C BC #### [facility] [address] [place] [address] Dr. Ladan Mcdonald Monocytes/100 WBC (Bld) 6.4 % Normal 1.7-12.0 [facility] Comment on above: Performed By: #### C BC #### [facility] [address] [place] [address] Dr. Ladan Mcdonald NEUT # 2.0 103/ul Normal 1.4-6.5 [facility] Comment on above: Performed By: #### C BC #### [facility] [address] [place] [address] Dr. Ladan Mcdonald Neutrophils/100 WBC (Bld) 52.1 % Normal 43.0-75.0 [facility] Comment on above: Performed By: #### C BC #### [facility] [address] [address] [address] Ladan Mcdonald Platelet mean volume (Bld) [Entitic vol] 9.4 fL Critically low 9.5-13.5 [facility] Comment on above: Performed By: #### C BC #### [facility] [address] [address] [address] Ladan Mcdonald PLT 137 103/ul Critically low 150-450 [facility] Comment on above: Performed By: #### C BC #### [facility] [address] [address] [address] Ladan Mcdonald RBC 5.31 106/ul Normal 4.70-6.10 [facility] Comment on above: Performed By: #### C BC #### [facility] [address] [place] [address] Dr. Ladan Mcdonald WBC 3.9 103/ul Critically low 4.0-11.0 [facility] Comment on above: Performed By: #### C BC #### [facility] [address] [address] [address] Ladan Mcdonald LDHon 08-12-2022 LDH 196 U/L Normal 85-227 [facility] Comment on above: Performed By: #### M G, LDH, CMP #### [facility] [address] [place] [address] Dr. Ladan Mcdonald MAGNESIUMon 08-12-2022 Magnesium [Mass/Vol] 2.1 mg/dL Normal 1.8-2.4 [facility] Comment on above: Performed By: #### M G, LDH, CMP #### [facility] [address] [address] [address] Ladan Mcdonald PROF 14(COMP METB)on 022 Albumin [Mass/Vol] 3.5 g/dL Normal 3.4-5.0 [facility] Comment on above: Performed By: #### M G, LDH, CMP #### [facility] [address] [place] [address] Dr. Ladan Mcdonald Albumin/Globulin [Mass ratio] 0.9 {ratio} Normal [facility] Comment on above: Performed By: #### M G, LDH, CMP #### [facility] [address] [address] [address] Ladan Mcdonald ALP [Catalytic activity/Vol] 118 U/L Critically high 46-116 [facility] Comment on above: Performed By: #### M G, LDH, CMP #### [facility] [address] [address] [address] Ladan Mcdonald ALT [Catalytic activity/Vol] 46 U/L Normal 16-63 [facility] Comment on above: Performed By: #### M G, LDH, CMP #### [facility] [address] [place] [address] Dr. Ladan Mcdonald Anion gap [Moles/Vol] 8.7 mmol/L Normal [facility] Comment on above: Performed By: #### M G, LDH, CMP #### [facility] [address] [place] [address] Dr. Ladan Mdconald AST [Catalytic activity/Vol] 30 U/L Normal 15-37 [facility] Comment on above: Performed By: #### M G, LDH, CMP #### [facility] [address] [place] [address] Dr. Ladan Mcdonald Bilirubin [Mass/Vol] 0.4 mg/dL Normal 0.2-1.0 [facility] Comment on above: Performed By: #### M G, LDH, CMP #### [facility] [address] [place] [address] Dr. Ladan Mcdonald Calcium [Mass/Vol] 9.1 mg/dL Normal 8.5-10.1 [facility] Comment on above: Performed By: #### M G, LDH, CMP #### [facility] [address] [place] [address] Dr. Ladan Mcdonald Chloride [Moles/Vol] 106 mmol/L Normal 98-107 [facility] Comment on above: Performed By: #### M G, LDH, CMP #### [facility] [address] [place] [address] Dr. Ladan Mcdonald CO2 [Moles/Vol] 31.9 mmol/L Normal 21.0-32.0 [facility] Comment on above: Performed By: #### M G, LDH, CMP #### [facility] [address] [address] [address] Ladan Mcdonald Creatinine [Mass/Vol] 1.68 mg/dL Critically high 0.70-1.30 [facility] Comment on above: Performed By: #### M G, LDH, CMP #### [facility] [address] [address] [address] Ladan Mcdonald EGFR-AF [place] 51 mL/min/1.73m2 Critically low >=60 [facility] Comment on above: Performed By: #### M G, LDH, CMP #### [facility] [address] [address] [address] Ladan Mcdonald EGFR-NON AF [place] 42 mL/min/1.73m2 Critically low >=60 [facility] Comment on above: Performed By: #### M G, LDH, CMP #### [facility] [address] [address] [address] Ladan Mcdonald Globulin (S) [Mass/Vol] 3.7 g/dL Normal [facility] Comment on above: Performed By: #### M G, LDH, CMP #### [facility] [address] [address] [address] Ladan Mcdonald Glucose [Mass/Vol] 110 mg/dL Critically high 74-106 [facility] Comment on above: Performed By: #### M G, LDH, CMP #### [facility] [address] [address] [address] Ladan Mcdonald Potassium [Moles/Vol] 4.6 mmol/L Normal 3.5-5.1 [facility] Comment on above: Performed By: #### M G, LDH, CMP #### [facility] [address] [address] [address] Ladan Mcdonald Protein [Mass/Vol] 7.2 g/dL Normal 6.4-8.2 [facility] Comment on above: Performed By: #### M G, LDH, CMP #### [facility] [address] [place], [place] [address] Dr. Ladan Mcdonald Sodium [Moles/Vol] 142 mmol/L Normal 136-145 [facility] Comment on above: Performed By: #### M G, LDH, CMP #### [facility] [address] [place], [place] [address] Dr. Ladan Mcdonald Urea nitrogen [Mass/Vol] 24.0 mg/dL Critically high 7.0-18.0 [facility] Comment on above: Performed By: #### M G, LDH, CMP #### [facility] [address] [place], [place] [address] Dr. Ladan Mcdonald Urea nitrogen/Creatinine [Mass ratio] 14.3 mg/mg Normal [facility] Comment on above: Performed By: #### M G, LDH, CMP #### [facility] [id number] Ladan Mcdonald Phone Note - Heme Onc-lab re quisition - Mailing lab reqon 08-06-2022 Phone Note - Heme Onc-lab requisition - Mailing lab req Phone Call Information: Patient Demographics: Name: KATERINA DANIELLE Date: 1960 Address: [address] [place] [address] Date and Time: 06-Aug-2022 10:58 Caller Information: call from Primary Phone Number: [phone] Reason for Call: Reason for Calllab requisition, [...] 06-Aug-2022 11:16 by Zofia Smith (RN) Normal [facility] XR CHEST 2 Von 07-18-2022 XR CHEST [...] by: JS LÓPEZ Date: 2022-07-18 15:06 Normal [facility] Office Visit (Onco-Nephrolog y - Established)on 07-16-2022 Follow-up visit Diagnoses/Problems CKD (chronic kidney disease), stage III (585.3) (N18.30) Benign essential HTN (401.1) (I10) Hyperparathyroidism, secondary (588.81) (N25.81) Orders Benign essential HTN, CKD (chronic kidney disease), stage III, Hyperparathyroidism, secondary Basic Metabolic Panel; Status:Active; Requested for:[id number]; Parathormone Intact, Serum; Status:Active; Requested for:[id number]; Phosphorus, Serum; Status:Active; Requested for:[id number]; Provider Impressions 1- CKD III: His Cr [...] Allergies Bactrim DS TABS Recorded By: Komal aJck; 12/17/2017 2:50:40 PM Compazine Recorded By: Komal Jack; 12/17/2017 2:53:15 PM dapsone Recorded By: Marcy Rnee; 03/08/2019 2:38:38 PM voriconazole Recorded By: Soo [...] THE WEEKENDS (more content not included)... Normal [facility] COVID-19 SOFIAOrdered By: Tod Farrell on 06-11-2022 SARS-CoV+SARS-CoV-2 (COVID-19) Ag IA.rapid Ql (Resp) Negative Negative [facility] Comment on above: This is a duplicate Mariella SARS Antigen (JOE) result to be used for statistical tracking purpose only. No Panel InformationOrdered By: Victor Hugo Farrell on 06-11-2022 SARS Antigen (LFIA) [facility] ECHOCARDIO M/2D COMPLETEon 0 04-01-2022 ECHOCARDIO M/2D COMPLETE Patient: KATERINA DANIELLE Exam Date: 04/01/2022 : 1960 Gender:M Ordering : DR NAEL FARIAS . Admission #: [id number] Family : Order #: [id number] CLICK HERE TO VIEW EXAM ECHOCARDIOGRAM REPORT [...] M.D. on 04/02/2022 at 18:37 Normal [facility] LACTATE DEHYDROGENASE (LD) I SOENZYMESon 02-23-2022 LD FRACTION 1 16 % Critically low 17-32 [facility] [place] [facility] Comment on above: Result Comment: Perf ormed at: BN Performed By: #### L DISO #### [facility] [address] [address] [address] Ladan Mcdonald LD FRACTION 2 33 % Normal 25-40 [facility] Comment on above: Result Comment: Perf ormed at: BN Performed By: #### L DISO #### [facility] [address], [place] [address] Dr. Ladan Mcdonald LD FRACTION 3 23 % Normal 17-27 [facility] Comment on above: Result Comment: Perf ormed at: BN Performed By: #### L DISO #### [facility] [address], [place] [address] Dr. Ladan Mcdonald LD FRACTION 4 13 % Normal 5-13 [facility] Comment on above: Result Comment: Perf ormed at: BN Performed By: #### L DISO #### [facility] [address], [place] [address] Dr. Ladan Mcdonald LD FRACTION 5 15 % Normal 4-20 [facility] Comment on above: Result Comment: Perf ormed at: BN Performed By: #### L DISO #### [facility] [address], [place] [address] Dr. Ladan Mcdonald LDH 245 IU/L Critically high 121-224 [facility] Comment on above: Result Comment: Perf ormed at: CB Performed By: #### L DISO #### [facility] [address], [place] [address] Dr. Ladan Mcdonald CBC AND DIFFERENTIALon 02-21 % AUTOMATED IMMATURE GRAN Canceled Normal [facility] Comment on above: Order Comment: TEST CBC AND DIFFERENTIAL WAS CANCELLED, 02/21/2022 14:13 Cancelled per Zfoia. Result Comment: Caryn ture Granulocyte Count (IG) includes promyelocytes, myelocytes and metamyelocytes but does not include bands. Percent differential counts (%) should be interpreted in the context of the absolute cell counts (cells/L). Performed By: #### C BCDF #### [address] [place] [address] % BASOPHIL Canceled Normal [facility] Comment on above: Order Comment: TEST CBC AND DIFFERENTIAL WAS CANCELLED, 02/21/2022 14:13 Cancelled per Zofia. Performed By: #### C BCDF #### [address] [place] [address] % EOSINOPHIL Canceled Normal [facility] Comment on above: Order Comment: TEST CBC AND DIFFERENTIAL WAS CANCELLED, 02/21/2022 14:13 Cancelled per Zofia. Performed By: #### C BCDF #### [address] [place] [address] % LYMPHOCYTE Canceled Normal [facility] Comment on above: Order Comment: TEST CBC AND DIFFERENTIAL WAS CANCELLED, 02/21/2022 14:13 Cancelled per Zofia. Performed By: #### C BCDF #### [address] [place] [address] % MONOCYTE Canceled Normal [facility] Comment on above: Order Comment: TEST CBC AND DIFFERENTIAL WAS CANCELLED, 02/21/2022 14:13 Cancelled per Zofia. Performed By: #### C BCDF #### [address] [place] [address] % NEUTROPHIL Canceled Normal [facility] Comment on above: Order Comment: TEST CBC AND DIFFERENTIAL WAS CANCELLED, 02/21/2022 14:13 Cancelled per Zofia. Performed By: #### C BCDF #### [address] [place] [address] BASOPHIL Canceled [facility] Comment on above: Order Comment: TEST CBC AND DIFFERENTIAL WAS CANCELLED, 02/21/2022 14:13 Cancelled per Zofia. Performed By: #### C BCDF #### [address] [place] [address] DIFFERENTIAL Canceled [facility] Comment on above: Order Comment: TEST CBC AND DIFFERENTIAL WAS CANCELLED, 02/21/2022 14:13 Cancelled per Ozfia. Performed By: #### C BCDF #### [address] [place] [address] EOSINOPHIL Canceled [facility] Comment on above: Order Comment: TEST CBC AND DIFFERENTIAL WAS CANCELLED, 02/21/2022 14:13 Cancelled per Zofia. Performed By: #### C BCDF #### [address] [place] [address] HCT Canceled [facility] Comment on above: Order Comment: TEST CBC AND DIFFERENTIAL WAS CANCELLED, 02/21/2022 14:13 Cancelled per Zofia. Performed By: #### C BCDF #### [address] [place] [address] HGB Canceled [facility] Comment on above: Order Comment: TEST CBC AND DIFFERENTIAL WAS CANCELLED, 02/21/2022 14:13 Cancelled per Zofia. Performed By: #### C BCDF #### [address] [place] [address] LYMPHOCYTE Canceled Normal [facility] Comment on above: Order Comment: TEST CBC AND DIFFERENTIAL WAS CANCELLED, 02/21/2022 14:13 Cancelled per Zofia. Performed By: #### C BCDF #### [address] [place] [address] MCHC Canceled [facility] Comment on above: Order Comment: TEST CBC AND DIFFERENTIAL WAS CANCELLED, 02/21/2022 14:13 Cancelled per Zofia. Performed By: #### C BCDF #### [address] [place] [address] MCV Canceled [facility] Comment on above: Order Comment: TEST CBC AND DIFFERENTIAL WAS CANCELLED, 02/21/2022 14:13 Cancelled per Zofia. Performed By: #### C BCDF #### [address] [place] [address] MONOCYTE Canceled [facility] Comment on above: Order Comment: TEST CBC AND DIFFERENTIAL WAS CANCELLED, 02/21/2022 14:13 Cancelled per Zofia. Performed By: #### C BCDF #### [address] [place] [address] NEUTROPHIL Canceled [facility] Comment on above: Order Comment: TEST CBC AND DIFFERENTIAL WAS CANCELLED, 02/21/2022 14:13 Cancelled per Zofia. Performed By: #### C BCDF #### [address] [place] [address] PLT Canceled [facility] Comment on above: Order Comment: TEST CBC AND DIFFERENTIAL WAS CANCELLED, 02/21/2022 14:13 Cancelled per Zofia. Performed By: #### C BCDF #### [address] [place] [address] RBC Canceled Normal [facility] Comment on above: Order Comment: TEST CBC AND DIFFERENTIAL WAS CANCELLED, 02/21/2022 14:13 Cancelled per Zofia. Performed By: #### C BCDF #### [address] [place] [address] RDW-CV Canceled Normal [facility] Comment on above: Order Comment: TEST CBC AND DIFFERENTIAL WAS CANCELLED, 02/21/2022 14:13 Cancelled per Zofia. Performed By: #### C BCDF #### [address] [place] [address] WBC Canceled [facility] Comment on above: Order Comment: TEST CBC AND DIFFERENTIAL WAS CANCELLED, 02/21/2022 14:13 Cancelled per Zofia. Performed By: #### C BCDF #### [address] [place] [address] COMPREHENSIVE PANELon 2021 ALBUMIN Canceled Normal [facility] Comment on above: Order Comment: TEST COMPREHENSIVE PANEL WAS CANCELLED, 02/21/2022 14:13 Cancelled per Zofia. Performed By: #### C MP #### [address] [place] [address] ALKALINE PHOSPHATASE Canceled Normal [facility] Comment on above: Order Comment: TEST COMPREHENSIVE PANEL WAS CANCELLED, 02/21/2022 14:13 Cancelled per Zofia. Performed By: #### C MP #### [address] [place] [address] ALT Canceled Normal [facility] Comment on above: Order Comment: TEST COMPREHENSIVE PANEL WAS CANCELLED, 02/21/2022 14:13 Cancelled per Zofia. Result Comment: Yisel ents treated with Sulfasalazine may generate falsely decreased results for ALT. Performed By: #### C MP #### [address] [place] [address] ANION GAP Canceled Normal [facility] Comment on above: Order Comment: TEST COMPREHENSIVE PANEL WAS CANCELLED, 02/21/2022 14:13 Cancelled per Zofia. Performed By: #### C MP #### [address] [place] [address] AST Canceled [facility] Comment on above: Order Comment: TEST COMPREHENSIVE PANEL WAS CANCELLED, 02/21/2022 14:13 Cancelled per Zofia. Performed By: #### C MP #### [address] [place] [address] BICARBONATE Canceled [facility] Comment on above: Order Comment: TEST COMPREHENSIVE PANEL WAS CANCELLED, 02/21/2022 14:13 Cancelled per Zofia. Performed By: #### C MP #### [address] [place] [address] BILIRUBIN,TOTAL Canceled [facility] Comment on above: Order Comment: TEST COMPREHENSIVE PANEL WAS CANCELLED, 02/21/2022 14:13 Cancelled per Zofia. Performed By: #### C MP #### [address] [place] [address] CALCIUM Canceled [facility] Comment on above: Order Comment: TEST COMPREHENSIVE PANEL WAS CANCELLED, 02/21/2022 14:13 Cancelled per Zofia. Performed By: #### C MP #### [address] [place] [address] CHLORIDE Canceled [facility] Comment on above: Order Comment: TEST COMPREHENSIVE PANEL WAS CANCELLED, 02/21/2022 14:13 Cancelled per Zofia. Performed By: #### C MP #### [address] [place] [address] CREATININE Canceled [facility] Comment on above: Order Comment: TEST COMPREHENSIVE PANEL WAS CANCELLED, 02/21/2022 14:13 Cancelled per Zofia. Performed By: #### C MP #### [address] [place] [address] eGFR FEMALE Canceled Normal [facility] Comment on above: Order Comment: TEST COMPREHENSIVE PANEL WAS CANCELLED, 02/21/2022 14:13 Cancelled per Zofia. Result Comment: CALC ULATIONS OF ESTIMATED GFR ARE PERFORMED USING THE 2020 CKD-EPI STUDY REFIT EQUATION WITHOUT THE RACE VARIABLE FOR THE IDMS-TRACEABLE CREATININE METHODS. https://jasn.asnjournals.org/content/earlyASN.789740 6269 Performed By: #### C MP #### [address] [place] [address] eGFR MALE Canceled Normal [facility] Comment on above: Order Comment: TEST COMPREHENSIVE PANEL WAS CANCELLED, 02/21/2022 14:13 Cancelled per Zofia. Result Comment: CALC ULATIONS OF ESTIMATED GFR ARE PERFORMED USING THE 2020 CKD-EPI STUDY REFIT EQUATION WITHOUT THE RACE VARIABLE FOR THE IDMS-TRACEABLE CREATININE METHODS. https://jasn.asnjournals.org/content/earlyASN.205234 8536 Performed By: #### C MP #### [address] [place] [address] GLUCOSE Canceled [facility] Comment on above: Order Comment: TEST COMPREHENSIVE PANEL WAS CANCELLED, 02/21/2022 14:13 Cancelled per Zofia. Performed By: #### C MP #### [address] [place] [address] POTASSIUM Canceled [facility] Comment on above: Order Comment: TEST COMPREHENSIVE PANEL WAS CANCELLED, 02/21/2022 14:13 Cancelled per Zofia. Performed By: #### C MP #### [address] [place] [address] SODIUM Canceled [facility] Comment on above: Order Comment: TEST COMPREHENSIVE PANEL WAS CANCELLED, 02/21/2022 14:13 Cancelled per Zofia. Performed By: #### C MP #### [address] [place] [address] TOTAL PROTEIN Canceled [facility] Comment on above: Order Comment: TEST COMPREHENSIVE PANEL WAS CANCELLED, 02/21/2022 14:13 Cancelled per Zofia. Performed By: #### C MP #### [address] [place] [address] UREA NITROGEN Canceled Normal [facility] Comment on above: Order Comment: TEST COMPREHENSIVE PANEL WAS CANCELLED, 02/21/2022 14:13 Cancelled per Zofia. Performed By: #### C MP #### [address] [place] [address] LDHon 02-21-2022 LDH Canceled Normal [facility] Comment on above: Order Comment: TEST LDH WAS CANCELLED, 02/21/2022 14:13 Cancelled per Zofia. Performed By: #### L DH #### [facility] [address] [place] [address] CBC AUTO DIFFon 02-20-2022 BASO # 0.0 103/ul Normal 0.0-0.1 [facility] Comment on above: Performed By: #### C BC #### [facility] [address] [address] [address] Ladan Mcdonald Basophils/100 WBC (Bld) 0.6 % Normal 0.2-2.0 [facility] Comment on above: Performed By: #### C BC #### [facility] [address] [place] [address] Dr. Ladan Mcdonald EO # 0.1 103/ul Normal 0.0-0.7 [facility] Comment on above: Performed By: #### C BC #### [facility] [address] [address] [address] Ladan Mcdonald Eosinophils/100 WBC (Bld) 2.0 % Normal 0.9-7.0 [facility] Comment on above: Performed By: #### C BC #### [facility] [address] [place] [address] Dr. Ladan Mcdonald Erythrocyte distribution width (RBC) [Ratio] 15.4 % Critically high 11.0-15.0 [facility] Comment on above: Performed By: #### C BC #### [facility] [address] [address] [address] Ladan Mcdonald Hematocrit (Bld) [Volume fraction] 44.7 % Normal 42.0-54.0 [facility] Comment on above: Performed By: #### C BC #### [facility] [address] [address] [address] Ladan Mcdonald Hemoglobin (Bld) [Mass/Vol] 14.3 g/dL Normal 14.0-18.0 [facility] Comment on above: Performed By: #### C BC #### [facility] [address] [place] [address] Dr. Ladan Mcdonald IG # 0.02 10e3/ul Normal 0.00-0.03 [facility] Comment on above: Performed By: #### C BC #### [facility] [address] [place] [address] Dr. Ladan Mcdonald IG % 0.6 % Critically high 0.0-0.5 [facility] Comment on above: Performed By: #### C BC #### [facility] [address] [place] [address] Dr. Ladan Mcdonald LYMPH # 0.9 103/ul Critically low 1.2-3.8 [facility] Comment on above: Performed By: #### C BC #### [facility] [address] [place] [address] Dr. Ladan Mcdonald Lymphocytes/100 WBC (Bld) 26.6 % Normal 20.5-60.0 [facility] Comment on above: Performed By: #### C BC #### [facility] [address] [place] [address] Dr. Ladan Mcdonald MANUAL DIFF REQ NO Normal [facility] Comment on above: Performed By: #### C BC #### [facility] [address] [place] [address] Dr. Ladan Mcdonald MCH (RBC) [Entitic mass] 26.2 pg Normal 25.9-34.0 [facility] Comment on above: Performed By: #### C BC #### [facility] [address] [address] [address] Ladan Mcdonald MCHC (RBC) [Mass/Vol] 32.0 g/dL Normal 29.9-35.2 [facility] Comment on above: Performed By: #### C BC #### [facility] [address] [place] [address] Dr. Ladan Mcdonald MCV (RBC) [Entitic vol] 82.0 fL Normal 80.0-94.0 [facility] Comment on above: Performed By: #### C BC #### [facility] [address] [place] [address] Dr. Ladan Mcdonald MONO # 0.3 103/ul Normal 0.3-0.8 [facility] Comment on above: Performed By: #### C BC #### [facility] [address] [place] [address] Dr. Ladan Mcdonald Monocytes/100 WBC (Bld) 8.9 % Normal 1.7-12.0 [facility] Comment on above: Performed By: #### C BC #### [facility] [address] [place] [address] Dr. Ladan Mcdonald NEUT # 2.2 103/ul Normal 1.4-6.5 [facility] Comment on above: Performed By: #### C BC #### [facility] [address] [place] [address] Dr. Ladan Mcdonald Neutrophils/100 WBC (Bld) 61.3 % Normal 43.0-75.0 [facility] Comment on above: Performed By: #### C BC #### [facility] [address] [place] [address] Dr. Ladan Mcdonald Platelet mean volume (Bld) [Entitic vol] 9.7 fL Normal 9.5-13.5 [facility] Comment on above: Performed By: #### C BC #### [facility] [address] [place] [address] Dr. Ladan Mcdonald PLT 115 103/ul Critically low 150-450 [facility] Comment on above: Performed By: #### C BC #### [facility] [address] [place] [address] Dr. Ladan Mcdonald RBC 5.45 106/ul Normal 4.70-6.10 [facility] Comment on above: Performed By: #### C BC #### [facility] [address] [address] [address] Ladan Mcdonald WBC 3.5 103/ul Critically low 4.0-11.0 [facility] Comment on above: Performed By: #### C BC #### [facility] [address] [address] [address] Ladan Mcdonald PROF 14(COMP METB)on 022 Albumin [Mass/Vol] 3.7 g/dL Normal 3.4-5.0 [facility] Comment on above: Performed By: #### M G, LDH, CMP #### [facility] [address] [address] [address] Ladan Mcdonald Albumin/Globulin [Mass ratio] 1.1 {ratio} Normal [facility] Comment on above: Performed By: #### M G, LDH, CMP #### [facility] [address] [address] [address] Ladan Mcdonald ALP [Catalytic activity/Vol] 121 U/L Critically high 46-116 [facility] Comment on above: Performed By: #### M G, LDH, CMP #### [facility] [address] [address] [address] Ladan Mcdonald ALT [Catalytic activity/Vol] 55 U/L Normal 16-63 [facility] Comment on above: Performed By: #### M G, LDH, CMP #### [facility] [address] [address] [address] Ladan Mcdonald Anion gap [Moles/Vol] 11.7 mmol/L Normal [facility] Comment on above: Performed By: #### M G, LDH, CMP #### [facility] [address] [address] [address] Ladan Mcdonald AST [Catalytic activity/Vol] 40 U/L Critically high 15-37 [facility] Comment on above: Performed By: #### M G, LDH, CMP #### [facility] [address] [address] [address] Ladan Mcdonald Bilirubin [Mass/Vol] 0.5 mg/dL Normal 0.2-1.0 [facility] Comment on above: Performed By: #### M G, LDH, CMP #### [facility] [address] [address] [address] Ladan Mcdonald Calcium [Mass/Vol] 9.2 mg/dL Normal 8.5-10.1 [facility] Comment on above: Performed By: #### M G, LDH, CMP #### [facility] [address] [address] [address] Ladan Mcdonald Chloride [Moles/Vol] 107 mmol/L Normal 98-107 [facility] Comment on above: Performed By: #### M G, LDH, CMP #### [facility] [address] [place] [address] Dr. Ladan Mcdonald CO2 [Moles/Vol] 28.3 mmol/L Normal 21.0-32.0 [facility] Comment on above: Performed By: #### M G, LDH, CMP #### [facility] [address] [address] [address] Ladan Mcdonald Creatinine [Mass/Vol] 1.97 mg/dL Critically high 0.70-1.30 [facility] Comment on above: Performed By: #### M G, LDH, CMP #### [facility] [address] [address] [address] Ladan Mcdonald EGFR-AF [place] 42 mL/min/1.73m2 Critically low >=60 [facility] Comment on above: Performed By: #### M G, LDH, CMP #### [facility] [address] [address] [address] Ladan Mcdonald EGFR-NON AF [place] 35 mL/min/1.73m2 Critically low >=60 [facility] Comment on above: Performed By: #### M G, LDH, CMP #### [facility] [address] [address] [address] Ladan Mcdonald Globulin (S) [Mass/Vol] 3.5 g/dL Normal [facility] Comment on above: Performed By: #### M G, LDH, CMP #### [facility] [address] [address] [address] Ladan Mcdonald Glucose [Mass/Vol] 114 mg/dL Critically high 74-106 [facility] Comment on above: Performed By: #### M G, LDH, CMP #### [facility] [address] [place] [address] Dr. Ladan Mcdonald Potassium [Moles/Vol] 4.0 mmol/L Normal 3.5-5.1 [facility] Comment on above: Performed By: #### M G, LDH, CMP #### [facility] [address] [place] [address] Dr. Ladan Mcdonald Protein [Mass/Vol] 7.2 g/dL Normal 6.4-8.2 [facility] Comment on above: Performed By: #### M G, LDH, CMP #### [facility] [address] [place] [address] Dr. Ladan Mcdonald Sodium [Moles/Vol] 143 mmol/L Normal 136-145 [facility] Comment on above: Performed By: #### M G, LDH, CMP #### [facility] [address] [place] [address] Dr. Ladan Mcdonald Urea nitrogen [Mass/Vol] 26.0 mg/dL Critically high 7.0-18.0 [facility] Comment on above: Performed By: #### M G, LDH, CMP #### [facility] [address] [place] [address] Dr. Ladan Mcdonald Urea nitrogen/Creatinine [Mass ratio] 13.2 mg/mg Normal [facility] Comment on above: Performed By: #### M G, LDH, CMP #### [facility] [address] [place] [address] Dr. Ladan Mcdonald CBC AND DIFFERENTIALon 11-14 % AUTOMATED IMMATURE GRAN 1.2 % High 0.0 - 0.9 [facility] Comment on above: Result Comment: Caryn ture Granulocyte Count (IG) includes promyelocytes, myelocytes and metamyelocytes but does not include bands. Percent differential counts (%) should be interpreted in the context of the absolute cell counts (cells/L). Performed By: #### C BCDF #### [address] [address] Basophils (Bld) [#/Vol] 0.01 10*3/uL Normal 0.00 - 0.10 [facility] Comment on above: Performed By: #### C BCDF #### [address] [address] Basophils/100 WBC (Bld) 0.2 % Normal 0.0 - 2.0 [facility] Comment on above: Performed By: #### C BCDF #### [address] [address] Eosinophils (Bld) [#/Vol] 0.04 10*3/uL Normal 0.00 - 0.70 [facility] Comment on above: Performed By: #### C BCDF #### [address] [address] Eosinophils/100 WBC (Bld) 1.0 % Normal 0.0 - 6.0 [facility] Comment on above: Performed By: #### C BCDF #### [address] [address] Erythrocyte distribution width (RBC) [Ratio] 15.0 % High 11.5 - 14.5 [facility] Comment on above: Performed By: #### C BCDF #### [address] [address] Hematocrit (Bld) [Volume fraction] 48.2 % Normal 41.0 - 52.0 [facility] Comment on above: Performed By: #### C BCDF #### [address] [address] Hemoglobin (Bld) [Mass/Vol] 14.9 g/dL Normal 13.5 - 17.5 [facility] Comment on above: Performed By: #### C BCDF #### [address] [address] Lymphocytes (Bld) [#/Vol] 1.26 10*3/uL Normal 1.20 - 4.80 [facility] Comment on above: Performed By: #### C BCDF #### [address] [address] Lymphocytes/100 WBC (Bld) 30.2 % Normal 13.0 - 44.0 [facility] Comment on above: Performed By: #### C BCDF #### [address] [address] MCHC (RBC) [Mass/Vol] 30.9 g/dL Low 32.0 - 36.0 [facility] Comment on above: Performed By: #### C BCDF #### [address] [address] MCV (RBC) [Entitic vol] 84 fL Normal 80 - 100 [facility] Comment on above: Performed By: #### C BCDF #### [address] [address] Monocytes (Bld) [#/Vol] 0.36 10*3/uL Normal 0.10 - 1.00 [facility] Comment on above: Performed By: #### C BCDF #### [address] [address] Monocytes/100 WBC (Bld) 8.6 % Normal 2.0 - 10.0 [facility] Comment on above: Performed By: #### C BCDF #### [address] [address] Neutrophils (Bld) [#/Vol] 2.45 10*3/uL Normal 1.20 - 7.70 [facility] Comment on above: Performed By: #### C BCDF #### [address] [address] Neutrophils/100 WBC (Bld) 58.8 % Normal 40.0 - 80.0 [facility] Comment on above: Performed By: #### C BCDF #### [address] [address] NUCLEATED RBC 0.0 /100 WBC Normal 0.0 - 0.0 [facility] Comment on above: Performed By: #### C BCDF #### [address] [address] Platelets (Bld) [#/Vol] 138 10*3/uL Low 150 - 450 [facility] Comment on above: Performed By: #### C BCDF #### [address] [address] RBC 5.71 x10E12/L Normal 4.50 - 5.90 [facility] Comment on above: Performed By: #### C BCDF #### [address] [address] WBC (Bld) [#/Vol] 4.2 10*3/uL Low 4.4 - 11.3 [facility] Comment on above: Performed By: #### C BCDF #### [address] [address] COMPREHENSIVE PANELon 2021 Albumin [Mass/Vol] 4.3 g/dL Normal 3.4 - 5.0 [facility] Comment on above: Performed By: #### C MP #### [address] [address] ALP [Catalytic activity/Vol] 89 U/L Normal 33 - 136 [facility] Comment on above: Performed By: #### C MP #### [address] [address] ALT [Catalytic activity/Vol] 43 U/L Normal 10 - 52 [facility] Comment on above: Result Comment: Yisel ents treated with Sulfasalazine may generate falsely decreased results for ALT. Performed By: #### C MP #### [address] [address] Anion gap [Moles/Vol] 11 mmol/L Normal 10 - 20 [facility] Comment on above: Performed By: #### C MP #### [address] [address] AST [Catalytic activity/Vol] 31 U/L Normal 9 - 39 [facility] Comment on above: Performed By: #### C MP #### [address] [address] Bilirubin [Mass/Vol] 0.7 mg/dL Normal 0.0 - 1.2 [facility] Comment on above: Performed By: #### C MP #### [address] [address] Calcium [Mass/Vol] 9.5 mg/dL Normal 8.6 - 10.3 [facility] Comment on above: Performed By: #### C MP #### [address] [address] Chloride [Moles/Vol] 105 mmol/L Normal 98 - 107 [facility] Comment on above: Performed By: #### C MP #### [address] [address] Creatinine [Mass/Vol] 1.76 mg/dL High 0.50 - 1.30 [facility] Comment on above: Performed By: #### C MP #### [address] [address] GFR/1.73 sq M.predicted among non-blacks MDRD (S/P/Bld) [Vol rate/Area] 43 mL/min/{1.73_m2} Abnormal >90 [facility] Comment on above: Result Comment: CALC ULATIONS OF ESTIMATED GFR ARE PERFORMED USING THE 2020 CKD-EPI STUDY REFIT EQUATION WITHOUT THE RACE VARIABLE FOR THE IDMS-TRACEABLE CREATININE METHODS. https://jasn.asnjournals.org/content/early//ASN.322282 4079 Performed By: #### C MP #### [address] [address] Glucose [Mass/Vol] 117 mg/dL High 74 - 99 [facility] Comment on above: Performed By: #### C MP #### [address] [address] HCO3 (Bld) [Moles/Vol] 27 mmol/L Normal 21 - 32 [facility] Comment on above: Performed By: #### C MP #### [address] [place] [address] Potassium [Moles/Vol] 4.3 mmol/L Normal 3.5 - 5.3 [facility] Comment on above: Performed By: #### C MP #### [address] [place] [address] Protein [Mass/Vol] 7.0 g/dL Normal 6.4 - 8.2 [facility] Comment on above: Performed By: #### C MP #### [address] [address] Sodium [Moles/Vol] 139 mmol/L Normal 136 - 145 [facility] Comment on above: Performed By: #### C MP #### [address] [address] Urea nitrogen [Mass/Vol] 23 mg/dL Normal 6 - 23 [facility] Comment on above: Performed By: #### C MP #### [address] [address] [address] CHEST ABDOMEN PELVIS W IV CONTRASTon 11-14-2021 CT CHEST ABDOMEN PELVIS W IV CONTRAST Patient Name: KATERINA DANIELLE STUDY: CT CHEST ABDOMEN PELVIS W IV CONTRAST; 11/14/2021 10:51 am INDICATION: HX DLBCL new sinus symptoms, same location as prior occurence 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 COMPARISON: CT chest 06/13/2020; CT abdomen pelvis dated 01/02/2019 ACCESSION NUMBER(S): [id number] ORDERING CLINICIAN: ANIRUDH SEARS TECHNIQUE: CT of [...] spleen. Electronically signed by: FRANK GRAVES MD [facility] CT SINUS W CONTRASTon 2021 CT SINUS W CONTRAST Patient Name: KATERINA DANIELLE STUDY: CT NECK WITH CONTRAST; CT SINUS W CONTRAST; 11/14/2021 10:51 am INDICATION: HX DLBCL new sinus symptoms, same location as prior occurence 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 COMPARISON: June 2018. ACCESSION NUMBER(S): [id number]; [id number] ORDERING CLINICIAN: ANIRUDH SEARS TECHNIQUE: Following intravenous [...] the neck. THIS EXAMINATION WAS INTERPRETED AT [facility] Electronically signed by: DEANDRE PENG MD Normal [facility] NR CT NECK WITH CONTRASTon 0 11-14-[address] NECK WITH CONTRAST Patient Name: KATERINA DANIELLE STUDY: CT NECK WITH CONTRAST; CT SINUS W CONTRAST; 11/14/2021 10:51 am INDICATION: HX DLBCL new sinus symptoms, same location as prior occurence 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 COMPARISON: June 2018. ACCESSION NUMBER(S): [id number]; [id number] ORDERING CLINICIAN: ANIRUDH SEARS TECHNIQUE: Following intravenous [...] the neck. THIS EXAMINATION WAS INTERPRETED AT [facility] Electronically signed by: DEANDRE PENG MD Normal [facility] Tobacco Screening.on 022 Fall risk assessment a) No falls within the last year [facility] 3 DO Work Phone: Tobacco use status CPHS b) No [facility] 3 DO Work Phone: Complete Blood Count + Diffe rentialon 05-21-2021 Basophils/100 WBC (Bld) 0.5 % 0.0 - 2.0 -Reacción 2099 DO Work Phone: Erythrocyte distribution width (RBC) [Ratio] 15.6 % above high threshold See Below [facility] 2100 DO Work Phone: Comment on above: Reference Range: 11. 5 - 14.5 Hematocrit (Bld) [Volume fraction] 46.6 % See Below -[employer] [facility] 2100 DO Work Phone: Comment on above: Reference Range: 41. 0 - 52.0 Hemoglobin (Bld) [Mass/Vol] 14.8 g/dL See Below [facility] 2100 DO Work Phone: Comment on above: Reference Range: 13. 5 - 17.5 Lymphocytes/100 WBC (Bld) 27.6 % See Below [facility] 2100 DO Work Phone: Comment on above: Reference Range: 13. 0 - 44.0 MCHC (RBC) [Mass/Vol] 31.8 g/dL below low threshold See Below [facility] 2100 DO Work Phone: Comment on above: Reference Range: 32. 0 - 36.0 MCV (RBC) [Entitic vol] 87 fL 80 - 100 [facility] 2100 DO Work Phone: Monocytes/100 WBC (Bld) 6.7 % 2.0 - 10.0 [facility] 2100 DO Work Phone: Neutrophils/100 WBC (Bld) 62.6 % See Below MPGuangzhou Huan CompanyRat Poisoner s-Springer 2100 DO Work Phone: Comment on above: Reference Range: 40. 0 - 80.0 Platelets (Bld) [#/Vol] 138 10*3/uL below low threshold 150 - 450 [facility] 2100 DO Work Phone: RBC (Bld) [#/Vol] 5.37 {x10E12/L} See Below MP [employer] [employer] CompanyRat Poison[employer] s-[place] 2100 DO Work Phone: Comment on above: Reference Range: 4.5 0 - 5.90 WBC (Bld) [#/Vol] 4.2 10*3/uL below low threshold 4.4 - 11.3 [facility] 2100 DO Work Phone: Complete Blood Count + Differential 0.02 {x10E9/L} See Below MP-[facility] [employer] 2100 DO Work Phone: Comment on above: Reference Range: 0.0 0 - 0.10 Complete Blood Count + Differential 0.08 {x10E9/L} See Below TVShow Time[employer] s[employer]Springer 2100 DO Work Phone: Comment on above: Reference Range: 0.0 0 - 0.70 Complete Blood Count + Differential 0.28 {x10E9/L} See Below Women of CoffeeRat Poisoner [email or web address] 2100 DO Work Phone: Comment on above: Reference Range: 0.1 0 - 1.00 Complete Blood Count + Differential 1.15 {x10E9/L} below low threshold See Below TVShow Timeist Apos TherapySpringer 2100 DO Work Phone: Comment on above: Reference Range: 1.2 0 - 4.80 Complete Blood Count + Differential 2.60 {x10E9/L} See Below Women of CoffeeRat Poisoner Apos TherapySpringer 2100 DO Work Phone: Comment on above: Reference Range: 1.2 0 - 7.70 Complete Blood Count + Differential 1.9 % 0.0 - 6.0 Women of CoffeeRat Poisoner Apos TherapySpringer 2100 DO Work Phone: Complete Blood Count + Differential 0.7 % 0.0 - 0.9 Women of CoffeeRat Poisoner Game ClosureProvidence Va Medical CenterSpringer [place] DO Work Phone: Comment on above: Immature Granulocyte Count (IG) includes promyelocytes, myelocytes and metamyelocytes but does not include bands. Percent differential counts (%) should be interpreted in the context of the absolute cell counts (cells/L). Immunoglobulin G Level, Seru mon 05-21-2021 IgG [Mass/Vol] 1100 mg/dL 700 - 1600 -[employer]atomixrust Game ClosureBag[facility] Center [place] DO Work Phone: Comment on above: MONOCLONAL PROTEINS MAY CAUSE FALSELY LOWRESULTS IN THIS ASSAY. SERUM PROTEINELECTROPHORESIS SHOULD BE DONE THEFIRST TEST TO EVALUATE MONOCLONAL GAMMOPATHY. Laboratory - Chemistry and C hemistry - challengeon 05-21-2021 Albumin BCP dye [Mass/Vol] 4.2 g/dL 3.4 - 5.0 [facility] 2100 DO Work Phone: ALP [Catalytic activity/Vol] 86 U/L 33 - 136 MP-[employer] [facility] 2100 DO Work Phone: ALT With P-5'-P [Catalytic activity/Vol] 32 U/L 10 - 52 [facility] [employer] 2100 DO Work Phone: Comment on above: Patients treated wit h Sulfasalazine may generate falsely decreased results for ALT. Anion gap [Moles/Vol] 11 mmol/L 10 - 20 MP- [facility] [employer] 2100 DO Work Phone: AST With P-5'-P [Catalytic activity/Vol] 28 U/L 9 - 39 [facility] 2100 DO Work Phone: Bilirubin [Mass/Vol] 0.6 mg/dL 0.0 - 1.2 MP-A llergist s-Owen 2100 DO Work Phone: Calcium [Mass/Vol] 9.2 mg/dL 8.6 - 10.3 MP-All ergist s-[place]wen 2100 DO Work Phone: Chloride [Moles/Vol] 107 mmol/L 98 - 107 MP-A llergist s-[place]wen 2100 DO Work Phone: CO2 [Moles/Vol] 27 mmol/L 21 - 32 MP-Allerg ist s-Springer 2100 DO Work Phone: Creatinine [Mass/Vol] 1.77 mg/dL above high threshold See Below MP-[employer] [facility] 2100 DO Work Phone: Comment on above: Reference Range: 0.5 0 - 1.30 Glucose [Mass/Vol] 99 mg/dL 74 - 99 MP-All ergist s-Springer 2100 DO Work Phone: Potassium [Moles/Vol] 4.5 mmol/L 3.5 - 5.3 MP- [facility] [employer] [facility] 2100 DO Work Phone: Protein [Mass/Vol] 7.0 g/dL 6.4 - 8.2 MP-All ergist s-Springer 2100 DO Work Phone: Sodium [Moles/Vol] 140 mmol/L 136 - 145 MP-All ergist s-[facility]wen 2100 DO Work Phone: Urea nitrogen [Mass/Vol] 22 mg/dL 6 - 23 [facility] [employer] [facility] 2100 DO Work Phone: No Panel Informationon 05-21 47 {mL/min/1.73m2} Abnormal >60 MP-All ergist s-Springer 2100 DO Work Phone: Comment on above: CALCULATIONS OF KATIE MATED GFR ARE PERFORMED USING THE MDRD STUDY EQUATION FOR THE IDMS-TRACEABLE CREATININE METHODS. CLIN CHEM 2007;53:766-72 39 {mL/min/1.73m2} Abnormal >60 MP-All ergist s-[facility]wen 2100 DO Work Phone: CBC AND DIFFERENTIALon 01-20 % AUTOMATED IMMATURE GRAN 1.9 % High 0.0 - 0.9 [facility] Comment on above: Result Comment: Caryn ture Granulocyte Count (IG) includes promyelocytes, myelocytes and metamyelocytes but does not include bands. Percent differential counts (%) should be interpreted in the context of the absolute cell counts (cells/L). Performed By: #### C BCDF #### [address] [address] Basophils (Bld) [#/Vol] 0.02 10*3/uL Normal 0.00 - 0.10 [facility] Comment on above: Performed By: #### C BCDF #### [address] [address] Basophils/100 WBC (Bld) 0.5 % Normal 0.0 - 2.0 [facility] Comment on above: Performed By: #### C BCDF #### [address] [address] Eosinophils (Bld) [#/Vol] 0.25 10*3/uL Normal 0.00 - 0.70 [facility] Comment on above: Performed By: #### C BCDF #### [address] [address] Eosinophils/100 WBC (Bld) 6.0 % Normal 0.0 - 6.0 [facility] Comment on above: Performed By: #### C BCDF #### [address] [address] Erythrocyte distribution width (RBC) [Ratio] 14.2 % Normal 11.5 - 14.5 [facility] Comment on above: Performed By: #### C BCDF #### [address] [address] Hematocrit (Bld) [Volume fraction] 46.7 % Normal 41.0 - 52.0 [facility] Comment on above: Performed By: #### C BCDF #### [address] [address] Hemoglobin (Bld) [Mass/Vol] 14.8 g/dL Normal 13.5 - 17.5 [facility] Comment on above: Performed By: #### C BCDF #### [address] [address] Lymphocytes (Bld) [#/Vol] 1.10 10*3/uL Low 1.20 - 4.80 [facility] Comment on above: Performed By: #### C BCDF #### [address] [address] Lymphocytes/100 WBC (Bld) 26.6 % Normal 13.0 - 44.0 [facility] Comment on above: Performed By: #### C BCDF #### [address] [address] MCHC (RBC) [Mass/Vol] 31.7 g/dL Low 32.0 - 36.0 [facility] Comment on above: Performed By: #### C BCDF #### [address] [address] MCV (RBC) [Entitic vol] 85 fL Normal 80 - 100 [facility] Comment on above: Performed By: #### C BCDF #### [address] [address] Monocytes (Bld) [#/Vol] 0.48 10*3/uL Normal 0.10 - 1.00 [facility] Comment on above: Performed By: #### C BCDF #### [address] [address] Monocytes/100 WBC (Bld) 11.6 % Normal 2.0 - 10.0 [facility] Comment on above: Performed By: #### C BCDF #### [address] [address] Neutrophils (Bld) [#/Vol] 2.21 10*3/uL Normal 1.20 - 7.70 [facility] Comment on above: Performed By: #### C BCDF #### [address] [address] Neutrophils/100 WBC (Bld) 53.4 % Normal 40.0 - 80.0 [facility] Comment on above: Performed By: #### C BCDF #### [address] [address] Platelets (Bld) [#/Vol] 122 10*3/uL Low 150 - 450 [facility] Comment on above: Performed By: #### C BCDF #### [address] [address] RBC (Bld) [#/Vol] 5.47 x10E12/L Normal 4.50 - 5.90 [facility] Comment on above: Performed By: #### C BCDF #### [address] [address] WBC (Bld) [#/Vol] 4.1 10*3/uL Low 4.4 - 11.3 [facility] Comment on above: Performed By: #### C BCDF #### [address] [address] COMPREHENSIVE PANEL 2019 Albumin [Mass/Vol] 4.7 g/dL Normal 3.4 - 5.0 [facility] Comment on above: Performed By: #### P HOS #### [address] [address] ALP [Catalytic activity/Vol] 186 U/L High 33 - 120 [facility] Comment on above: Performed By: #### P HOS #### [address] [address] ALT [Catalytic activity/Vol] 46 U/L Normal 10 - 52 [facility] Comment on above: Result Comment: Yisel ents treated with Sulfasalazine may generate falsely decreased results for ALT. Performed By: #### P HOS #### [address] [address] Anion gap [Moles/Vol] 11 mmol/L Normal 10 - 20 [facility] Comment on above: Performed By: #### P HOS #### [address] [address] AST [Catalytic activity/Vol] 30 U/L Normal 9 - 39 [facility] Comment on above: Performed By: #### P HOS #### [address] [address] Bilirubin [Mass/Vol] 0.6 mg/dL Normal 0.0 - 1.2 [facility] Comment on above: Performed By: #### P HOS #### [address] [address] Calcium [Mass/Vol] 9.2 mg/dL Normal 8.6 - 10.3 [facility] Comment on above: Performed By: #### P HOS #### [address] [address] Chloride [Moles/Vol] 106 mmol/L Normal 98 - 107 [facility] Comment on above: Performed By: #### P HOS #### [address] [address] Creatinine [Mass/Vol] 1.90 mg/dL High 0.50 - 1.30 [facility] Comment on above: Performed By: #### P HOS #### [address] [address] GFR- AM. 44 mL/min/1.73m2 Abnormal >60 [facility] Comment on above: Result Comment: CALC ULATIONS OF ESTIMATED GFR ARE PERFORMED USING THE MDRD STUDY EQUATION FOR THE IDMS-TRACEABLE CREATININE METHODS. CLIN CHEM 2007;53:766-72 Performed By: #### P HOS #### [address] [address] GFR-NON AM. 36 mL/min/1.73m2 Abnormal >60 [facility] Comment on above: Performed By: #### P HOS #### [address] [address] Glucose [Mass/Vol] 62 mg/dL Low 74 - 99 [facility] Comment on above: Performed By: #### P HOS #### [address] [address] HCO3 (Bld) [Moles/Vol] 29 mmol/L Normal 21 - 32 [facility] Comment on above: Performed By: #### P HOS #### [address] [address] Potassium [Moles/Vol] 4.1 mmol/L Normal 3.5 - 5.3 [facility] Comment on above: Performed By: #### P HOS #### [address] [address] Protein [Mass/Vol] 6.5 g/dL Normal 6.4 - 8.2 [facility] Comment on above: Performed By: #### P HOS #### [address] [address] Sodium [Moles/Vol] 142 mmol/L Normal 136 - 145 [facility] Comment on above: Performed By: #### P HOS #### [address] [address] Urea nitrogen [Mass/Vol] 23 mg/dL Normal 6 - 23 [facility] Comment on above: Performed By: #### P HOS #### [address] [address] LDHon 01-21-2020 LDH 246 U/L Normal 84 - 246 [facility] Comment on above: Performed By: #### P HOS #### [address] [address] PARATHYROID HORMONE,INTACTon 01-21-2020 PARATHYROID HORMONE,INTACT 105.7 pg/mL High 18.5 - 88.0 [facility] Comment on above: Result Comment: Yisel ents receiving more than 5 mg/day of biotin may have interference in test results. A sample should be taken no sooner than eight hours after previous dose. Contact the testing laboratory for additional information. Performed By: #### P HOS #### [address] [address] PHOSPHORUSon 01-21-2020 Phosphate [Mass/Vol] 2.8 mg/dL Normal 2.5 - 4.9 [facility] Comment on above: Result Comment: The performance characteristics of phosphorus testing in heparinized plasma have been validated by the individual laboratory site where testing is performed. Testing on heparinized plasma is not approved by the FDA; however, such approval is not necessary. Performed By: #### P HOS #### [address] [address] URIC ACIDon 01-21-2020 Urate [Mass/Vol] 5.9 mg/dL Normal 4.0 - 7.5 [facility] Comment on above: Result Comment: Anabell puncture immediately after or during the administration of Metamizole may lead to falsely low results. Testing should be performed immediately prior to Metamizole dosing. Performed By: #### P HOS #### [address] [address] BASIC METABOLIC PANELon 11-2 Anion gap [Moles/Vol] 11 mmol/L Normal 10 - 20 [facility] Comment on above: Performed By: #### B MP #### [address] [address] Calcium [Mass/Vol] 9.0 mg/dL Normal 8.6 - 10.3 [facility] Comment on above: Performed By: #### B MP #### [address] [address] Chloride [Moles/Vol] 109 mmol/L High 98 - 107 [facility] Comment on above: Performed By: #### B MP #### [address] [address] Creatinine [Mass/Vol] 1.92 mg/dL High 0.50 - 1.30 [facility] Comment on above: Performed By: #### B MP #### [address] [address] GFR- AM. 44 mL/min/1.73m2 Abnormal >60 [facility] Comment on above: Result Comment: CALC ULATIONS OF ESTIMATED GFR ARE PERFORMED USING THE MDRD STUDY EQUATION FOR THE IDMS-TRACEABLE CREATININE METHODS. CLIN CHEM 2007;53:766-72 Performed By: #### B MP #### [address] [address] GFR-NON AM. 36 mL/min/1.73m2 Abnormal >60 [facility] Comment on above: Performed By: #### B MP #### [address] [address] Glucose [Mass/Vol] 64 mg/dL Low 74 - 99 [facility] Comment on above: Performed By: #### B MP #### [address] [address] HCO3 (Bld) [Moles/Vol] 27 mmol/L Normal 21 - 32 [facility] Comment on above: Performed By: #### B MP #### [address] [address] Potassium [Moles/Vol] 4.1 mmol/L Normal 3.5 - 5.3 [facility] Comment on above: Performed By: #### B MP #### [address] [address] Sodium [Moles/Vol] 143 mmol/L Normal 136 - 145 [facility] Comment on above: Performed By: #### B MP #### [address] [address] Urea nitrogen [Mass/Vol] 27 mg/dL High 6 - 23 [facility] Comment on above: Performed By: #### B MP #### [address] [address] Metabolic Panelon 07-27-2019 Anion gap [Moles/Vol] 11 mmol/L 10 - 20 [facility]- Nephrolog [facility] Work Phone: Calcium [Mass/Vol] 9.0 mg/dL 8.6 - 10.3 [facility]Nep hrolog [facility] Work Phone: [phone] Chloride [Moles/Vol] 109 mmol/L above high threshold 98 - 107 [facility] Work Phone: [phone] CO2 [Moles/Vol] 27 mmol/L 21 - 32 [facility]-Nephro log [facility] Work Phone: Creatinine [Mass/Vol] 1.92 mg/dL above high threshold See Below [facility] Work Phone: Comment on above: Reference Range: 0.5 0 - 1.30 Glucose [Mass/Vol] 64 mg/dL below low threshold 74 - 99 [facility] Work Phone: Potassium [Moles/Vol] 4.1 mmol/L 3.5 - 5.3 [facility] Work Phone: Sodium [Moles/Vol] 143 mmol/L 136 - 145 [facility]ep [facility] Work Phone: [phone] Urea nitrogen [Mass/Vol] 27 mg/dL above high threshold 6 - 23 [facility] Work Phone: Otheron 07-27-2019 Interpreted by: SLYFRX19/27/19 14:38MRN: [id number] Name: KATERINA DANIELLE STUDY: RENAL BILAT; 07/27/2019 [...] signed by: CHELSEA 07/28/19 14:38 Normal [facility] Work Phone: 44 {mL/min/1.73m2} Abnormal >60 [facility]ep [facility] Work Phone: Comment on above: CALCULATIONS OF KATIE MATED GFR ARE PERFORMED USING THE MDRD STUDY EQUATION FOR THE IDMS-TRACEABLE CREATININE METHODS. CLIN CHEM 2007;53:766-72 36 {mL/min/1.73m2} Abnormal >60 [facility]ep [facility] Work Phone: Please click on the link to view the study images Normal -Nephrolog [facility] Work Phone: PARATHYROID HORMONE,INTACTon 07-27-2019 PARATHYROID HORMONE,INTACT 117.6 pg/mL High 18.5 - 88.0 [facility] Comment on above: Result Comment: Yisel ents receiving more than 5 mg/day of biotin may have interference in test results. A sample should be taken no sooner than eight hours after previous dose. Contact the testing laboratory for additional information. Performed By: #### P TH #### [address] [address] PHOSPHORUSon 07-27-2019 Phosphate [Mass/Vol] 2.7 mg/dL Normal 2.5 - 4.9 [facility] Comment on above: Result Comment: The performance characteristics of phosphorus testing in heparinized plasma have been validated by the individual laboratory site where testing is performed. Testing on heparinized plasma is not approved by the FDA; however, such approval is not necessary. Performed By: #### P HOS #### [address] [address] Parathormone Intact, Serumon 07-27-2019 Parathyrin.intact [Mass/Vol] 117.6 pg/mL above high threshold See Below [facility]Nephrolog [facility] Work Phone: Comment on above: Reference Range: 18. 5 - 88.0 Patients receiving more than 5 mg/day of biotin may have interference in test results. A sample should be taken no sooner than eight hours after previous dose. Contact the testing laboratory for additional information. Phosphorus, Serumon 07-27-20 19 Phosphate [Mass/Vol] 2.7 mg/dL 2.5 - 4.9 [facility] Work Phone: Comment on above: The performance marie acteristics of phosphorus testing in heparinized plasma have been validated by the individual laboratory site where testing is performed. Testing on heparinized plasma is not approved by the FDA; however, such approval is not necessary. TOTAL PROTEIN, URINE SPOTon 07-27-2019 CREATININE,URINE 167.0 mg/dL Normal 20.0 - 370.0 [facility] Comment on above: Performed By: #### T PS2 #### [address] [address] T. PROTEIN/CREAT RATIO 0.37 mg/mg Creat High 0.00 - 0.17 [facility] Comment on above: Performed By: #### T PS2 #### [address] [address] TOTAL PROT,URINE SPOT 61 mg/dL High 5 - 25 [facility] Comment on above: Performed By: #### T PS2 #### [address] [address] Total Protein, Urine Spoton 07-27-2019 Creatinine (U) [Mass/Vol] 167.0 mg/dL See Below [facility] Work Phone: Comment on above: Reference Range: 20. 0 - 370.0 Protein/Creatinine (U) [Ratio] 0.37 {mg/mg_Creat} above high threshold See Below [facility] Work Phone: Comment on above: Reference Range: 0.0 0 - 0.17 Total Protein, Urine Spot 61 mg/dL above high threshold 5 - 25 [facility] Work Phone: UA MICROSCOPICon 07-27-2019 MUCUS 1+ /LPF Normal [facility] Comment on above: Performed By: #### U AMIC #### [address] [address] RBC 1 /HPF Normal 0-5 [facility] Comment on above: Performed By: #### U AMIC #### [address] [address] WBC 1 /HPF Normal 0-5 [facility] Comment on above: Performed By: #### U AMIC #### [address] [address] URIC ACIDon 07-27-2019 Urate [Mass/Vol] 5.8 mg/dL Normal 4.0 - 7.5 [facility] Comment on above: Result Comment: Anabell puncture immediately after or during the administration of Metamizole may lead to falsely low results. Testing should be performed immediately prior to Metamizole dosing. Performed By: #### U NIKO #### [address] [address] URINALYSISon 07-27-2019 Appearance (U) CLEAR Normal CLEAR [facility] Comment on above: Performed By: #### U A #### [address] [address] Bilirubin (U) [Mass/Vol] Negative Normal NEGATIVE [facility] Comment on above: Performed By: #### U A #### [address] [address] BLOOD SMALL(1+) Abnormal NEGATIVE [facility] Comment on above: Performed By: #### U A #### [address] [address] Color (U) YELLOW Normal STRAW,YELLO W [facility] Comment on above: Performed By: #### U A #### [address] [address] Glucose [Mass/Vol] Negative Normal NEGATIVE [facility] Comment on above: Performed By: #### U A #### [address] [address] Ketones Ql (U) Negative Normal NEGATIVE [facility] Comment on above: Performed By: #### U A #### [address] [address] Leukocyte esterase Test strip Ql (U) Negative Normal NEGATIVE [facility] Comment on above: Performed By: #### U A #### [address] [address] Nitrite Ql (U) Negative Normal NEGATIVE [facility] Comment on above: Performed By: #### U A #### [address] [address] pH (Bld) 6.0 Normal 5.0 - 8.0 [facility] Comment on above: Performed By: #### U A #### [address] [address] Protein (U) [Mass/Vol] 30 (1+) Abnormal NEGATIVE [facility] Comment on above: Performed By: #### U A #### [address] [address] Specific gravity (U) [Rel density] 1.021 Normal 1.005 - 1.035 [facility] Comment on above: Performed By: #### U A #### [address] [place] [address] Urobilinogen Qn (U) <2.0 Normal 0.0 - 1.9 [facility] Comment on above: Performed By: #### U A #### [address] [address] RENAL BILATon 07-27-2019 US RENAL BILAT Patient Name: KATERINA DANIELLE STUDY: US RENAL BILAT; 07/27/2019 2:41 pm INDICATION: CKD, Essential (primary) hypertension, Diffuse large B-cell lymphoma. COMPARISON: None. ACCESSION NUMBER(S): [id number] ORDERING CLINICIAN: CHRISTOPHER WATKINS TECHNIQUE: Multiple images [...] Electronically signed by: GRUPO TRAN MD Normal [facility] Uric Acid, Serumon 9 Urate [Mass/Vol] 5.8 mg/dL 4.0 - 7.5 [facility]-Nephr olog [facility] Work Phone: Comment on above: Venipuncture immedia tely after or during the administration of Metamizole may lead to falsely low results. Testing should be performed immediately prior to Metamizole dosing. Urinalysison 07-27-2019 Appearance (U) CLEAR CLEAR [facility]-Nephrol og [facility] Work Phone: Color (U) YELLOW See Below [facility]phrolog [facility] Work Phone: Comment on above: Reference Range: STR AW,YELLOW Glucose Ql (U) Negative NEGATIVE [facility]-Nephrol [facility] Work Phone: Ketones Ql (U) Negative NEGATIVE [facility]-Nephrol [facility] Work Phone: Leukocyte esterase Test strip Ql (U) Negative NEGATIVE [facility] Work Phone: [phone] pH (U) 6.0 [pH] 5.0 - 8.0 [facility] Work Phone: [phone] Protein (U) [Mass/Vol] 30 (1+) Abnormal NEGATIVE [facility] Work Phone: [phone] RBC (U) [#/Vol] SMALL(1+) Abnormal NEGATIVE -Nephro log [facility] Work Phone: [phone] Specific gravity (U) [Rel density] 1.021 See Below [facility] Work Phone: [phone] Comment on above: Reference Range: 1.0 05 - 1.035 Urinalysis Negative NEGATIVE [facility] Work Phone: [phone] Urinalysis <2.0 0.0 - 1.9 [facility] Work Phone: [phone] Urinalysis, Microscopicon Urinalysis, Microscopic 1 {/HPF} 0-5 [facility] Work Phone: Urinalysis, Microscopic 1+ [facility] Work Phone: VITAMIN D, 25-HYDROXYon 07-03 VITAMIN D, 25-HYDROXY 66 ng/mL Normal [facility] Comment on above: Result Comment: . DEFICIENCY: < 20 NG/ML INSUFFICIENCY: 20-29 NG/ML OPTIMUM LEVEL: 30-80 NG/ML POSSIBLE TOXICITY: > 80 NG/ML THIS ASSAY ACCURATELY QUANTIFIES THE SUM OF VITAMIN D3, 25-HYDROXY AND VIT D2,25-HYDROXY. Performed By: #### V TDOH #### [address] [address] Vitamin D 25-Hydroxyon 07-27 Calcidiol [Mass/Vol] 66 ng/mL MG-N gisel leonardoFall River Emergency Hospitalmaría elena [facility] Work Phone: [phone] Comment on above: .DEFICIENCY: < 20 NG /MLINSUFFICIENCY: 20-29 NG/MLOPTIMUM LEVEL: 30-80 NG/MLPOSSIBLE TOXICITY: > 80 NG/MLTHIS ASSAY ACCURATELY QUANTIFIES THE SUM OFVITAMIN D3, 25-HYDROXY AND VIT D2,25-HYDROXY. Complete Blood Count + Diffe maryse 07-02-2019 Basophils (Bld) [#/Vol] 0.01 {x10E9/L} See Below -Neurology [facility] Work Phone: [phone] Comment on above: Reference Range: 0.0 0 - 0.10 Basophils/100 WBC (Bld) 0.3 % 0.0 - 2.0 [facility] Work Phone: [phone] Eosinophils (Bld) [#/Vol] 0.09 {x10E9/L} See Below [facility] Work Phone: [phone] Comment on above: Reference Range: 0.0 0 - 0.70 Eosinophils/100 WBC (Bld) 2.8 % 0.0 - 6.0 [facility] Work Phone: [phone] Erythrocyte distribution width (RBC) [Ratio] 15.4 % above high threshold See Below [facility] Work Phone: [phone] Comment on above: Reference Range: 11. 5 - 14.5 Hematocrit (Bld) [Volume fraction] 43.5 % See Below [facility] Work Phone: Comment on above: Reference Range: 41. 0 - 52.0 Hemoglobin (Bld) [Mass/Vol] 13.6 g/dL See Below [facility] Work Phone: [phone] Comment on above: Reference Range: 13. 5 - 17.5 Lymphocytes (Bld) [#/Vol] 0.93 {x10E9/L} below low threshold See Below [facility] Work Phone: [phone] Comment on above: Reference Range: 1.2 0 - 4.80 Lymphocytes/100 WBC (Bld) 29.3 % See Below [facility] Work Phone: [phone] Comment on above: Reference Range: 13. 0 - 44.0 MCHC (RBC) [Mass/Vol] 31.3 g/dL below low threshold See Below [facility] Work Phone: [phone]) Comment on above: Reference Range: 32. 0 - 36.0 MCV (RBC) [Entitic vol] 87 fL 80 - 100 [facility] Work Phone: () Monocytes (Bld) [#/Vol] 0.28 {x10E9/L} See Below [facility] Work Phone: ) Comment on above: Reference Range: 0.1 0 - 1.00 Monocytes/100 WBC (Bld) 8.8 % 2.0 - 10.0 [facility] Work Phone: ) Neutrophils (Bld) [#/Vol] 1.84 {x10E9/L} See Below [facility] Work Phone: ) Comment on above: Reference Range: 1.2 0 - 7.70 Neutrophils/100 WBC (Bld) 58.2 % See Below [facility] Work Phone: ) Comment on above: Reference Range: 40. 0 - 80.0 Platelets (Bld) [#/Vol] 61 {x10E9/L} below low threshold 150 - 450 [facility] Work Phone: RBC (Bld) [#/Vol] 5.02 {x10E12/L} See Below [facility] Work Phone: ) Comment on above: Reference Range: 4.5 0 [...] 5 - 64 [facility] Work Phone: 1 Imm/Pathon 07-02-2019 IgA [Mass/Vol] 13 mg/dL below low threshold 70 - 400 [facility] Work Phone: 1 Comment on [...] mg/dL Abnormal 40 - 230 [facility]-Neurolo gy -[employer] Work Phone: [phone] Comment on above: MONOCLONAL PROTEINS MAY CAUSE FALSELY LOWRESULTS IN THIS ASSAY. SERUM PROTEINELECTROPHORESIS SHOULD BE DONE THEFIRST TEST TO EVALUATE MONOCLONAL GAMMOPATHY. Metabolic Panelon 07-02-2019 ALP [Catalytic activity/Vol] 271 U/L above high threshold 33 - 120 [facility] Work Phone: 1 Anion gap [Moles/Vol] 13 mmol/L 10 - 20 [facility] Work Phone: Bilirubin [Mass/Vol] 0.5 mg/dL 0.0 - 1.2 [facility]-N eurology [facility] Work Phone: Calcium [Mass/Vol] 9.3 mg/dL 8.6 - 10.6 [facility]-Juan Ramon rology -[facility] Work Phone: Chloride [Moles/Vol] 107 mmol/L 98 - 107 [facility]-N eurology [facility] Work Phone: [phone] CO2 [Moles/Vol] 26 mmol/L 21 - 32 [facility]-Neurol ogy [facility] Work Phone: [phone] Creatinine [Mass/Vol] 1.82 mg/dL above high threshold See Below [facility] Work Phone: [phone] Comment on above: Reference Range: 0.5 0 - 1.30 Glucose [Mass/Vol] 90 mg/dL 74 - 99 [facility] Work Phone: [phone] LDH [Catalytic activity/Vol] 202 U/L 84 - 246 [facility] Work Phone: [phone] Potassium [Moles/Vol] 4.7 mmol/L 3.5 - 5.3 [facility] Work Phone: [phone] Protein [Mass/Vol] 6.3 g/dL below low threshold 6.4 - 8.2 [facility] Work Phone: [phone] Sodium [Moles/Vol] 141 mmol/L 136 - 145 [facility] Work Phone: [phone] Urea nitrogen [Mass/Vol] 32 mg/dL above high threshold 6 - 23 [facility] Work Phone: [phone] Glucose [Mass/Vol] 93 mg/dL 74 - 99 [facility] Work Phone: [phone] Otheron 07-02-2019 Albumin BCP dye [Mass/Vol] 4.4 g/dL 3.4 - 5.0 [facility] Work Phone: [phone] ALT With P-5'-P [Catalytic activity/Vol] 56 U/L above high threshold 10 - 52 [facility] Work Phone: [phone] Comment on above: Patients treated wit h Sulfasalazine may generate falsely decreased results for ALT. AST With P-5'-P [Catalytic activity/Vol] 39 U/L 9 - 39 [facility] Work Phone: [phone] 46 {mL/min/1.73m2} Abnormal >60 [facility]uan Ramon [employer] Work Phone: Comment on above: CALCULATIONS OF KATIE MATED GFR ARE PERFORMED USING THE MDRD STUDY EQUATION FOR THE IDMS-TRACEABLE CREATININE METHODS. CLIN CHEM 2007;53:766-72 38 {mL/min/1.73m2} Abnormal >60 [facility] Ramon jacoby [employer] Work Phone: Interpreted by: BENJY VICK07/02/19 12:12MRN: [id number] Name: KATERINA DANIELLE STUDY:PET/CT LYMPHOMA STAGING; 07/02/2019 [...] (SUV) units. CODING:Subsequent Treatment Strategy (PS) CALIBRATION:Dose Hsdkknchj-ys-Kgve Interval (mins): 54 minMediastinal bloodpool SUV (normal [...] interpretation as stated. [facility]Electronically signed by: DANIAL VICK 07/02/19 12:12 Normal [facility] Work Phone: C Reactive Protein, Serumon 04-02-2019 CRP [Mass/Vol] 1.59 mg/dL Abnormal MG-Ophthal mo [employer] [facility] [employer] Work Phone: Comment on above: REF VALUE< 1.00 Complete Blood Count + Diffe rentialon 04-02-2019 Basophils (Bld) [#/Vol] 0.01 {x10E9/L} See Below MG-Ophthalmo [employer] Work Phone: Comment on above: Reference Range: 0.0 0 - 0.10 Basophils/100 WBC (Bld) 0.3 % 0.0 - 2.0 [facility] Work Phone: Eosinophils (Bld) [#/Vol] 0.07 {x10E9/L} See Below [facility] Work Phone: Comment on above: Reference Range: 0.0 0 - 0.70 Eosinophils/100 WBC (Bld) 2.2 % 0.0 - 6.0 [facility] Work [...] [Entitic vol] 93 fL 80 - 100 MG-Ophthalmo logsamra-[facility]in[facility] e [facility] Work Phone: Monocytes (Bld) [#/Vol] 0.37 {x10E9/L} See Below MG-Ophthalmo logy-[place] e [facility]bin02 Work Phone: Comment on above: Reference Range: 0.1 0 - 1.00 Monocytes/100 WBC (Bld) 11.5 % 2.0 - 10.0 MG-Ophthalmo logy-[place] e [facility] Work Phone: Neutrophils (Bld) [#/Vol] 1.86 {x10E9/L} See Below MG-Ophthalmo logy-[place] e [facility]02 Work Phone: Comment on above: Reference Range: 1.2 0 - 7.70 Neutrophils/100 WBC (Bld) 58.0 % See Below MG-Ophthalmo logy-Serinak e Wilber Work Phone: Comment on above: Reference Range: 40. 0 - 80.0 Platelets (Bld) [#/Vol] 60 {x10E9/L} below low threshold 150 - 450 MG-Ophthalmo logsamra-Serinak e [facility]02 Work Phone: [phone] RBC (Bld) [#/Vol] 4.18 {x10E12/L} below low threshold See Below MG-Ophthalmo logsamra-Serinak hardik Merino Work Phone: Comment on above: Reference Range: 4.5 0 - 5.90 WBC (Bld) [#/Vol] 3.2 {x10E9/L} below low threshold 4.4 - 11.3 MG-Ophthalmo logsamra-Serinak e Albin02 Work Phone: Complete Blood Count + Differential 0.3 % 0.0 - 0.9 MG-Ophthalmo logy-Torinlak e Albin02 Work Phone: Comment on above: Percent differential counts (%) should be interpreted in the context of the absolute cell counts (cells/L). Ferritin, Serumon 04-02-2019 Ferritin [Mass/Vol] 667 ug/L above high threshold 20 - 300 MG-Ophthalmo logsamra-Torinlak e B102 Work Phone: Fibrinogen Assayon 9 [...] time] 1.0 {INR} 0.9 - 1.1 MG-Ophthalmo logy-Torinlak e B1Landon Work Phone: [phone] PT Coag (PPP) [Time] 11.0 {sec} 9.7 - 12.7 MG-O phthalmo jerri-Serinak e Wilber Work Phone: Immunoglobulin G Level, Seru mon 04-02-2019 IgG [Mass/Vol] 487 mg/dL below low threshold 700 - 1600 MG-Ophthalmo jerri-Serinak e Wilber Work Phone: Comment on above: MONOCLONAL PROTEINS MAY CAUSE FALSELY LOWRESULTS IN THIS ASSAY. SERUM PROTEINELECTROPHORESIS SHOULD BE DONE THEFIRST TEST TO EVALUATE MONOCLONAL GAMMOPATHY. Magnesium, Serumon 9 Magnesium [Mass/Vol] 2.39 mg/dL See Below MG-O phthalmo jerri-Serinak e Wilber Work Phone: Comment on above: Reference Range: 1.6 0 - 2.40 Metabolic Panelon 04-02-2019 ALP [Catalytic activity/Vol] 327 U/L above high threshold 33 - 120 MG-Ophthalmo logy-Torinlak e Albin02 Work Phone: Anion gap [Moles/Vol] 14 mmol/L 10 - 20 MG- Ophthalmo logy-Westlak e B102 Work Phone: Bilirubin [Mass/Vol] 0.7 mg/dL 0.0 - 1.2 MG-O phthalmo logy-Torinmak e [facility] Work Phone: Calcium [Mass/Vol] 9.6 mg/dL 8.6 - 10.6 MG-Oph thalmo logy-Torinmak e [facility] Work Phone: Chloride [Moles/Vol] 106 mmol/L 98 - 107 MG-O phthalmo logy-Torinmaalex e [facility] Work Phone: CO2 [Moles/Vol] 25 mmol/L 21 - 32 [facility] Work Phone: Creatinine [Mass/Vol] 1.50 mg/dL above high threshold See Below MG-Ophthalmo jerri-Torinmaalex e [facility] Work Phone: Comment on above: Reference Range: 0.5 0 - 1.30 Glucose [Mass/Vol] 94 mg/dL 74 - 99 [facility] Work Phone: LDH [Catalytic activity/Vol] 161 U/L 84 - 246 [facility] Work Phone: Potassium [Moles/Vol] 4.6 mmol/L 3.5 - 5.3 MG- [facility] Work Phone: Protein [Mass/Vol] 6.2 g/dL below low threshold 6.4 - 8.2 [facility]Torin[facility] e [facility] Work Phone: Sodium [Moles/Vol] 140 mmol/L 136 - 145 MG-Oph thalmo logy-Torinmaalex e [facility] Work Phone: Urea nitrogen [Mass/Vol] 22 mg/dL 6 - 23 MG-Ophthalmo logy-Torinmaalex e [facility] Work Phone: Glucose [Mass/Vol] 92 mg/dL 74 - 99 MG-Oph thalmo logy-Torinmaalex e [facility] Work Phone: Otheron 08--2019 Interpreted by: REAGAN AHMADI04/02/19 13:04MRN: [id number] Name: KATERINA DANIELLE STUDY:PET/CT LYMPHOMA STAGING; 04/02/2019 [...] (SUV) units. CODING:Subsequent Treatment Strategy (PS) CALIBRATION:Dose Shpniajjc-jn-Euti Interval (mins): 105 minMediastinal bloodpool SUV (normal [...] interpretation as stated. [facility] Electronically signed by: ZARA AHMADI 04/02/19 [...] [Mass/Vol] 362 pg/mL 211 - 911 MG-Ophthalmo logsamra-Serinak e Albin02 Work Phone: C Reactive Protein, Serumon 03-19-2019 CRP [Mass/Vol] 0.82 mg/dL MG-Ophthal mo logsamra-oTrinlak e Wilber Work Phone: Comment on above: REF VALUE< 1.00 Complete Blood Count + Diffe rentialon 03-19-2019 Basophils (Bld) [#/Vol] 0.01 {x10E9/L} See Below MG-Ophthalmo logsamra-Serinak e Wilber Work Phone: Comment on above: Reference Range: 0.0 0 - 0.10 Basophils/100 WBC (Bld) 0.4 % 0.0 - 2.0 MG-Ophthalmo logsamra-Serinak e ROXIMITY Work Phone: Eosinophils (Bld) [#/Vol] 0.06 {x10E9/L} See Below MG-Ophthalmo logsamra-Torinlak e Wilber Work Phone: Comment on above: Reference Range: 0.0 0 - 0.70 Eosinophils/100 WBC (Bld) 2.3 % 0.0 - 6.0 MG-Ophthalmo logsamra-Torinlak e [employer]binUm[employer]eltech Work Phone: Erythrocyte distribution width (RBC) [Ratio] 14.9 % above high threshold See Below MG-Ophthalmo logsamra-Torinlak e Wilber Work Phone: Comment on above: Reference Range: 11. 5 - 14.5 Hematocrit (Bld) [Volume fraction] 37.4 % below low threshold See Below MG-Ophthalmo logsamra-Torinlak e B102 Work Phone: Comment on above: Reference Range: 41. 0 - 52.0 Hemoglobin (Bld) [Mass/Vol] 11.9 g/dL below low threshold See Below MG-Ophthalmo jerri-Kandice Talamantes02 Work Phone: Comment on above: Reference Range: 13. 5 - 17.5 Lymphocytes (Bld) [#/Vol] 0.78 {x10E9/L} below low threshold See Below MG-Ophthalmo jerri-Kandice Merino Work Phone: Comment on above: Reference Range: 1.2 0 - 4.80 Lymphocytes/100 WBC (Bld) 30.2 % See Below MG-Ophthalmo jerri-Kandice Merino Work Phone: Comment on above: Reference Range: 13. 0 - 44.0 MCHC (RBC) [Mass/Vol] 31.8 g/dL below low threshold See Below MG-Ophthalmo jerri-Kandice Merino Work Phone: Comment on above: Reference Range: 32. 0 - 36.0 MCV (RBC) [Entitic vol] 95 fL 80 - 100 MG-Ophthalmo jerri-Kandice Merino Work Phone: Monocytes (Bld) [#/Vol] 0.33 {x10E9/L} See Below MG-Ophthalmo Jenni Merino Work Phone: Comment on above: Reference Range: 0.1 0 - 1.00 Monocytes/100 WBC (Bld) 12.8 % 2.0 - 10.0 MG-Ophthalmo jerri-Kandice Merino Work Phone: Neutrophils (Bld) [#/Vol] 1.38 {x10E9/L} See Below MG-Ophthalmo jerri-Kandice Merino Work Phone: Comment on above: Reference Range: 1.2 0 - 7.70 Neutrophils/100 WBC (Bld) 53.5 % See Below MG-Ophthalmo jerri-Kandice Talamantes02 Work Phone: Comment on above: Reference Range: 40. 0 - 80.0 Platelets (Bld) [#/Vol] 54 {x10E9/L} below low threshold 150 - 450 MG-Ophthalmo logy-Westlak e B102 Work Phone: RBC (Bld) [#/Vol] 3.95 {x10E12/L} below low threshold See Below MG-Ophthalmo logy-Westlak e B102 Work Phone: Comment on above: Reference Range: 4.5 0 - 5.90 WBC (Bld) [#/Vol] 2.6 {x10E9/L} below low threshold 4.4 - 11.3 MG-Ophthalmo logy-Westlak e B102 Work Phone: Complete Blood Count + Differential 0.8 % 0.0 - 0.9 MG-Ophthalmo logy-Torinlak e B102 Work Phone: Comment on above: Percent differential counts (%) should be interpreted in the context of the absolute cell counts (cells/L). Ferritin, Serumon 03-19-2019 Ferritin [Mass/Vol] 569 ug/L above high threshold 20 - 300 MG-Ophthalmo logy-Westlak e B102 Work Phone: Fibrinogen Assayon 9 Fibrinogen Assay 388 mg/dL 200 - 400 MG-Ophth almo logy-Torinlak e Albin02 Work Phone: Hematologyon 03-19-2019 aPTT Coag (PPP) [Time] 31 {sec} 28 - 38 MG-Ophthalmo logy-Torinlak e B1Landon Work Phone: Comment on above: THE APTT IS NO LONGE R USED FOR MONITORING UNFRACTIONATED HEPARIN THERAPY. FOR MONITORING HEPARIN THERAPY, USE THE HEPARIN ASSAY. INR Coag (PPP) [Relative time] 1.0 {INR} 0.9 - 1.1 MG-Ophthalmo logy-Westlak e B102 Work Phone: PT Coag (PPP) [Time] 11.0 {sec} 9.7 [...] logy-Westlak e B102 Work Phone: Chloride [Moles/Vol] 107 mmol/L 98 - 107 MG-O phthalmo logy-Westlak e B102 Work Phone: CO2 [Moles/Vol] 24 mmol/L 21 - 32 MG-Ophtha lmo logy-Westlak e [employer] Work Phone: Creatinine [Mass/Vol] 1.49 mg/dL above high threshold See Below MG-Ophthalmo logy-Westlak e B102 Work Phone: Comment on above: Reference Range: 0.5 0 - 1.30 Glucose [Mass/Vol] 107 mg/dL above high threshold 74 - 99 MG-Ophthalmo logy-Westlak e B102 Work Phone: LDH [Catalytic activity/Vol] 171 U/L 84 - 246 MG-Ophthalmo logy-Torinlak e 02 Work Phone: Potassium [Moles/Vol] 4.2 mmol/L 3.5 - 5.3 MG- Ophthalmo logy-Westlak e B102 Work Phone: Protein [Mass/Vol] 5.7 g/dL below low threshold 6.4 - 8.2 MG-Ophthalmo logy-Westlak e 02 Work Phone: Sodium [Moles/Vol] 140 mmol/L 136 - 145 MG-Oph thalmo logy-Serinak e 02 Work Phone: Urea nitrogen [Mass/Vol] 21 mg/dL 6 - 23 MG-Ophthalmo logy-Torinlak e 02 Work Phone: [phone] Otheron 03-19-2019 Albumin BCP dye [Mass/Vol] 4.1 g/dL 3.4 - 5.0 MG-Ophthalmo logy-Serinak e [employer] Work Phone: [phone] ALT With P-5'-P [Catalytic activity/Vol] 48 U/L 10 - 52 MG-Ophthalmo logy-Serinak e [employer] Work Phone: Comment on above: Patients treated wit h Sulfasalazine may generate falsely decreased results for ALT. AST With P-5'-P [Catalytic activity/Vol] 27 U/L 9 - 39 MG-Ophthalmo logy-Torinlak e [facility] Work Phone: 48 {mL/min/1.73m2} Abnormal >60 MG-Oph thalmo logy-Torinlak e 02 Work Phone: 58 {mL/min/1.73m2} Abnormal >60 MG-Oph thalmo logy-Westlak e 02 Work Phone: [phone] Comment on above: CALCULATIONS OF KATIE MATED GFR ARE PERFORMED USING THE MDRD STUDY EQUATION FOR THE IDMS-TRACEABLE CREATININE METHODS. CLIN CHEM 2007;[id number]:[id number] Thyroidon 03-19-2019 TSH Qn 0.78 {mIU/L} See Below MG-Ophthalmo jerri-Torinlak e B102 Work Phone: Comment on above: Reference Range: 0.4 4 - 3.98 TSH testing is performed using different testing methodology at [facility] than at other [facility]. Direct result comparisons should only be made within the same method.. Patients receiving more than 5 mg/day of biotin may have interference in test results. A sample should be taken no sooner than eight hours after previous dose. Contact [phone] for additional information. Uric Acid, Serumon 9 Urate [Mass/Vol] 5.5 mg/dL 4.0 - 7.5 MG-Ophth almo logy-Serinak e B102 Work Phone: Comment on above: Venipuncture immedia tely after or during the administration of Metamizole may lead to falsely low results. Testing should be performed immediately prior to Metamizole dosing. Vital Signs Date Time Vital Sign Value Performing Clinician Facility 07-05-2024 10:16050 Body height 182.9 cm Sandra Cole MD Work Phone: [facility] 07-05-2024 10:16050 Body mass index (BMI) [Ratio] 36.89 kg/m2 Sandra Cole MD Work Phone: [facility] 07-05-2024 10:16050 Body weight 123.38 kg Sandra Cole MD Work Phone: [facility] 06-16-2024 14:190400 Body weight 119.74 kg MD Nael Farias Work Phone: [facility] 06-16-2024 14:19-040 Diastolic blood pressure 70 mm[Hg] MD Nael Farias Work Phone: [facility] 06-16-2024 14:190400 Heart rate 69 /min MD Nael Farias Work Phone: [facility] 06-16-2024 14:19-0400 SaO2% (BldA) [Mass fraction] 97 % MD Nael Farias Work Phone: [facility] 06-16-2024 14:19-0400 Systolic blood pressure 120 mm[Hg] MD Nael Farias Work Phone: [facility] 06-11-2024 10:11-0400 Body height 182.9 cm Christopher Watkins MD Work Phone: [facility] 06-11-2024 10:11-0400 Body mass index (BMI) [Ratio] 35.8 kg/m2 Christpoher Watkins MD Work Phone: [facility] 06-11-2024 10:11-0400 Body weight 119.75 kg Christopher Watkins MD Work Phone: [facility] 06-11-2024 10:11-0400 Diastolic blood pressure 69 mm[Hg] Christopher Watkins MD Work Phone: [facility] 06-11-2024 10:11-0400 Heart rate 67 /min Christopher Watkins MD Work Phone: [facility] 06-11-2024 10:11-0400 Systolic blood pressure 104 mm[Hg] Christopher Watkins MD Work Phone: [facility] 05-25-2024 09:57-0400 Body height 182.9 cm Nael Farias MD Work Phone: [facility] 05-25-2024 09:57-0400 Body mass index (BMI) [Ratio] 35.8 kg/m2 Nael Farias MD Work Phone: [facility] 05-25-2024 09:57-0400 Body weight 119.75 kg Nael Farias MD Work Phone: [facility] 05-19-2024 15:51-0400 Body weight 119.74 kg MD Nael Farias Work Phone: [facility] 05-19-2024 15:51-0400 Diastolic blood pressure 84 mm[Hg] MD Nael Farias Work Phone: [facility] 05-19-2024 15:51-0400 Heart rate 70 /min MD Nael Farias Work Phone: [facility] 05-19-2024 15:51-0400 SaO2% (BldA) [Mass fraction] 97 % MD Nael Farias Work Phone: [facility] 05-19-2024 15:51-0400 Systolic blood pressure 140 mm[Hg] MD Nael Farias Work Phone: [facility] 01-05-2024 10:39-0400 Body mass index (BMI) [Ratio] 35.8 kg/m2 Sandra Cole MD Work Phone: [facility] 01-05-2024 10:39-0400 Body weight 119.75 kg Sandra Cole MD Work Phone: [facility] 01-05-2024 10:39-0400 Heart rate 72 /min Sandra Cole MD Work Phone: [facility] 01-05-2024 10:39-0400 SaO2% (BldA) [Mass fraction] 96 % Sandra Cole MD Work Phone: [facility] 12-05-2023 09:53-0400 Body height 182.9 cm Christopher Watkins MD Work Phone: [facility] 12-05-2023 09:53-0400 Body mass index (BMI) [Ratio] 35.67 kg/m2 Christopher Watkins MD Work Phone: [facility] 12-05-2023 09:53-0400 Body weight 119.3 kg Christopher Watkins MD Work Phone: [facility] 12-05-2023 09:53-0400 Diastolic blood pressure 84 mm[Hg] Christopher Watkins MD Work Phone: [facility] 12-05-2023 09:53-0400 Heart rate 62 /min Christopher Watkins MD Work Phone: [facility] 12-05-2023 09:53-0400 Systolic blood pressure 128 mm[Hg] Christopher Watkins MD Work Phone: [facility] 08-13-2023 11:15-0500 Body mass index (BMI) [Ratio] 35.16 kg/m2 Anirudh Sears MD Work Phone: [facility] 08-13-2023 11:15-0500 Body temperature 97.3 [degF] Anirudh Sears MD Work Phone: [facility] 08-13-2023 11:15-0500 Body weight 117.6 kg Anirudh Sears MD Work Phone: [facility] 08-13-2023 11:15-0500 Diastolic blood pressure 78 mm[Hg] Anirudh Sears MD Work Phone: [facility] 08-13-2023 11:15-0500 Heart rate 70 /min Anirudh Sears MD Work Phone: [facility] 08-13-2023 11:15-0500 Respiratory rate 16 /min Anirudh Sears MD Work Phone: [facility] 08-13-2023 11:15-0500 SaO2% (BldA) [Mass fraction] 98 % Anirudh Sears MD Work Phone: [facility] 08-13-2023 11:15-0500 Systolic blood pressure 115 mm[Hg] Anirudh Sears MD Work Phone: [facility] 02-20-2023 13:54-0400 Body height 182.88 cm Nael Farias Work Phone: [facility] Work Phone: 02-20-2023 13:54-0400 Body mass index (BMI) [Ratio] 35.26 kg/m2 Nael Farias Work Phone: [facility] Work Phone: 02-20-2023 13:54-0400 Body surface area Derived from formula 2.38 m2 Nael Farias Work Phone: [facility] Work Phone: 02-20-2023 13:54-0400 Body temperature 97.16 [degF] Nael Farias Work Phone: [facility] Work Phone: 02-20-2023 13:54-0400 Body weight 117.94 kg Nael Farias Work Phone: [facility] Work Phone: 02-20-2023 13:54-0400 Diastolic blood pressure 95 mm[Hg] Nael Farias Work Phone: [facility] Work Phone: 02-20-2023 13:54-0400 Heart rate 75 /min Nael Farias Work Phone: [facility] Work Phone: 02-20-2023 13:54-0400 Respiratory rate 16 /min Nael Farias Work Phone: [facility] Work Phone: 02-20-2023 13:54-0400 SaO2% (BldA) [Mass fraction] 96 % Nael Jaquan Farias Work Phone: [facility] Work Phone: 02-20-2023 13:54-0400 Systolic blood pressure 136 mm[Hg] Nael Jaquan Farias Work Phone: [facility] Work Phone: 01-29-2023 13:51-0400 Body height 182.88 cm Nael Brownevelyn Work Phone: [facility] 3 DO Work Phone: 01-29-2023 13:51-0400 Body mass index (BMI) [Ratio] 36.08 kg/m2 Nael Brownyer Work Phone: [facility] 3 DO Work Phone: 01-29-2023 13:51-0400 Body surface area Derived from formula 2.4 m2 Nael Brownyer Work Phone: [facility] 3 DO Work Phone: 01-29-2023 13:51-0400 Body temperature 97.9 [degF] Nael Brownyer Work Phone: [facility] 3 DO Work Phone: 01-29-2023 13:51-0400 Body weight 120.66 kg Nael Brownyer Work Phone: [facility] 3 DO Work Phone: 01-29-2023 13:51-0400 Diastolic blood pressure 84 mm[Hg] Nael Brownyer Work Phone: [facility] 3 DO Work Phone: 01-29-2023 13:51-0400 Heart rate 72 /min Nael Brownyer Work Phone: [facility] 3 DO Work Phone: 01-29-2023 13:51-0400 Systolic blood pressure 138 mm[Hg] Nael Brownyer Work Phone: [facility] 3 DO Work Phone: 12-20-2022 10:45-0400 Diastolic blood pressure 98 mm[Hg] Nael Farias Work Phone: [facility] [address] DO Work Phone: 12-20-2022 10:45-0400 Heart rate 82 /min Nael Farias Work Phone: [facility] 2099 DO Work Phone: 12-20-2022 10:45-0400 SaO2% (BldA) [Mass fraction] 98 % Nael Farias Work Phone: [facility] [address] DO Work Phone: 12-20-2022 10:45-0400 Systolic blood pressure 134 mm[Hg] Nael Farias Work Phone: [facility] 2099 DO Work Phone: 12-28-2021 10:15-0400 Body height 182.88 cm Nael Farias Work Phone: [facility] 2099 DO Work Phone: 12-28-2021 10:15-0400 Body mass index (BMI) [Ratio] 36.21 kg/m2 Nael Farias Work Phone: [facility] 2099 DO Work Phone: 12-28-2021 10:15-0400 Body surface area Derived from formula 2.41 m2 Moizscott Farias Work Phone: [facility] 2099 DO Work Phone: 12-28-2021 10:15-0400 Body weight 121.11 kg Moizscott Farias Work Phone: [facility] 2099 DO Work Phone: 12-28-2021 10:15-0400 Diastolic blood pressure 94 mm[Hg] Nael Partida Andrea Work Phone: [facility] 2099 DO Work Phone: 12-28-2021 10:15-0400 Systolic blood pressure 140 mm[Hg] Nael Brownyer Work Phone: [place] [address] DO Work Phone: 11-08-2021 10:18-0500 Body height 182.88 cm Nael Farias Work Phone: [facility] 3 DO Work Phone: 11-08-2021 10:18-0500 Body mass index (BMI) [Ratio] 36.48 kg/m2 Nael Brownyer Work Phone: [facility] 3 DO Work Phone: 11-08-2021 10:18-0500 Body surface area Derived from formula 2.42 m2 Nael Farias Work Phone: [facility] 3 DO Work Phone: 11-08-2021 10:18-0500 Body temperature 97 [degF] Nael Brownyer Work Phone: [facility] 3 DO Work Phone: 11-08-2021 10:18-0500 Body weight 122.02 kg Nael Farias Work Phone: [facility] 3 DO Work Phone: 11-08-2021 10:18-0500 Diastolic blood pressure 82 mm[Hg] Nael Brownyer Work Phone: [facility] 3 DO Work Phone: 11-08-2021 10:18-0500 Heart rate 72 /min Nael Farias Work Phone: [facility] 3 DO Work Phone: 11-08-2021 10:18-0500 Systolic blood pressure 130 mm[Hg] Nael Farias Work Phone: [facility] 3 DO Work Phone: 05-21-2021 11:28-0400 Body height 182.88 cm Nael Farias Work Phone: [facility] 2099 DO Work Phone: 05-21-2021 11:28-0400 Body mass index (BMI) [Ratio] 35.8 kg/m2 Nael Farias Work Phone: [facility] 2099 DO Work Phone: 05-21-2021 11:28-0400 Body surface area Derived from formula 2.4 m2 Nael Farias Work Phone: [facility] 2099 DO Work Phone: 05-21-2021 11:28-0400 Body weight 119.75 kg Nael Farias Work Phone: [facility] 2099 DO Work Phone: 05-21-2021 11:28-0400 Diastolic blood pressure 90 mm[Hg] Nael Farias Work Phone: [facility] 2099 DO Work Phone: 05-21-2021 11:28-0400 Systolic blood pressure 142 mm[Hg] Nael Farias Work Phone: [facility] 2099 DO Work Phone: 08-02-2019 12:54-0500 BMI (Body Mass Index) 32.98 kg/m2 Christopher Roland BF-Ehohdilcx-Xhmjg an Work Phone: 08-02-2019 12:54-0500 Body Temperature 96.62 [degF] Christopher Roland UO-Rdawpcnpl-Jg idm an Work Phone: 08-02-2019 12:54-0500 Body weight 110.31 kg Christopher Roland VT-Gvzgbdcxw-Vyv dm an Work Phone: 08-02-2019 12:54-0500 BP Diastolic 76 mm[Hg] Christopher Roland JW-Lejpknoup-Zkn dm an Work Phone: 08-02-2019 12:54-0500 BP Systolic 117 mm[Hg] Christopher Roland JW-Djgcjghhj-Lam dm an Work Phone: 08-02-2019 12:54-0500 BSA (Body Surface Area) 2.31 m2 Christopher Roland LL-Hieuubbrs-Nghxg an Work Phone: 08-02-2019 12:54-0500 Height 182.88 cm Christopher Roland DF-Mzxolqijk-Aru dm an Work Phone: 08-02-2019 12:54-0500 Pulse (Heart Rate) 79 /min Christopher Roland MG-Neurology- Seidm an Work Phone: 08-02-2019 12:54-0500 Pulse Oximetry 100 % Christopher Roland VB-Ofofmqvma-Wok dm an Work Phone: 08-02-2019 12:54-0500 Respiratory Rate 16 /min Christopher Roland NI-Mbgknvyfs-Gb idm an Work Phone: 08-02-2019 12:54-0500 0 1 Christopher Roland WQ-Lxwvsqssf-Fvj dm an Work Phone: Comment on above: Pain Scale 07-26-2019 11:44-0500 BMI (Body Mass Index) 33.12 kg/m2 Christopher Roland DT-Axirwvxro-Zzzgd an Work Phone: 07-26-2019 11:44-0500 Body Temperature 96.3 [degF] Christopher Roland BD-Ypenvbadu-Ag idm an Work Phone: 07-26-2019 11:44-0500 Body weight 110.76 kg Christopher Roland AU-Xyuabgwdb-Utk dm an Work Phone: 07-26-2019 11:44-0500 BP Diastolic 75 mm[Hg] Christopher Roland NW-Kbnprhuon-Tss dm an Work Phone: 07-26-2019 11:44-0500 BP Systolic 128 mm[Hg] Christopher Roland WU-Nzvyijwtx-Hsu dm an Work Phone: 07-26-2019 11:44-0500 BSA (Body Surface Area) 2.32 m2 Christopher Roland PW-Mgmsvcudl-Rbzje an Work Phone: 07-26-2019 11:44-0500 Height 182.88 cm Christopher Roland CI-Smlmulepz-Edr dm an Work Phone: 07-26-2019 11:44-0500 Pulse (Heart Rate) 85 /min Christopher Roland MG-Neurology- Seidm an Work Phone: 07-26-2019 11:44-0500 Pulse Oximetry 100 % Christopher Roland TT-Emkzwdutr-Ujn dm an Work Phone: 07-26-2019 11:44-0500 Respiratory Rate 16 /min Christopher Roland VE-Qrfpoppce-Sr idm an Work Phone: 07-26-2019 11:44-0500 3 1 Christopher Roland QC-Sdvqplxqy-Quv dm an Work Phone: Comment on above: Pain Scale Encounters Encounter Date Encounter Type Care Provider Facility Start: 07-05-2024 End: 07-05-2024 Office outpatient visit 25 minutes Sandra Cole MD Work Phone: [facility] Comment on above: CVID (common variabl e immunodeficiency) (Primary Dx); Asthma, unspecified asthma severity, unspecified whether complicated, unspecified whether persistent ([facility]) Start: 07-05-2024 End: 07-05-2024 ambulatory SANDRA Daniel [facility] Ambulatory Start: 06-30-2024 End: 07-01-2024 Clinisync Result Encounter Generic External Data Provider [facility] External Department Unsolicited Start: 06-30-2024 End: 07-01-2024 Clinisync Result Encounter Generic External Data Provider [facility] External Department Unsolicited Start: 06-16-2024 End: 06-16-2024 ambulatory MD Nael Farias Work Phone: [facility] Work Phone: Start: 06-16-2024 End: 06-16-2024 Patient encounter procedure MD Nael Farias Work Phone: [facility] Work Phone: Start: 06-11-2024 End: 06-11-2024 Office outpatient visit 25 minutes Christopher Watkins MD Work Phone: [facility] Comment on above: Stage 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 disease (Multi) (Primary Dx); Essential hypertension; Hyperparathyroidism, secondary (Multi) Start: 06-11-2024 End: 06-11-[address] [facility] Start: 06-02-2024 End: 06-02-2024 Clinisync Result Encounter Generic External Data Provider [facility] External Department Unsolicited Start: 06-02-2024 End: 06-02-2024 Clinisync Result Encounter Generic External Data Provider [facility] External Department Unsolicited Start: 05-25-2024 End: 05-25-2024 Office outpatient visit 15 minutes Nael Farias MD Work Phone: [facility] Comment on above: Chronic pain syndrom e; Drug-induced polyneuropathy (CMS/HCC); Spasm; Moderate persistent asthma without complication (CMS/HCC); Morbid obesity (CMS/HCC); BMI 35.0-35.9,adult Start: 05-25-2024 End: 05-25-2024 ambulatory NAEL FARIAS Not Available Start: 05-19-2024 End: 05-19-2024 ambulatory MD Nael Farias Work Phone: [facility] Work Phone: Start: 05-19-2024 End: 05-19-2024 Patient encounter procedure MD Nael Farias Work Phone: [facility] Work Phone: Start: 05-10-2024 End: 05-10-2024 ambulatory NADEEM MORRISON Not Available Start: 04-27-2024 End: 04-27-2024 ambulatory [facility] Start: 04-15-2024 End: 04-15-2024 Patient encounter procedure MD Nael Farias Work Phone: [facility] [place] Work Phone: Start: 04-15-2024 End: 04-15-2024 ambulatory MD Nael Farias Work Phone: [facility] Work Phone: Start: 04-13-2024 End: 04-13-2024 ambulatory NADEEM MORRISON Not Available Start: 03-23-2024 End: 03-23-2024 ambulatory NADEEM MORRISON Not Available Start: 02-17-2024 End: 02-17-2024 ambulatory NAEL FARIAS Not Available Start: 01-05-2024 End: 01-05-2024 Office outpatient visit 25 minutes Sandra Cole MD Work Phone: [facility] Comment on above: Asthma, unspecified asthma severity, unspecified whether complicated, unspecified whether persistent ([facility]-HCC) (Primary Dx); CVID (common variable immunodeficiency) (Multi) Start: 01-05-2024 End: 01-05-2024 ambulatory SANDRA Daniel [facility] Ambulatory Start: 12-05-2023 End: 12-05-2023 Office outpatient visit 15 minutes Christopher Watkins MD Work Phone: [facility] Comment on above: Stage 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 disease (CMS/HCC) (Primary Dx); Essential hypertension; Hyperparathyroidism, secondary (CMS/HCC) Start: 12-05-2023 End: 12-05-2023 ambulatory CHRISTOPHER WATKINS [facility] Ambulatory Start: 11-05-2023 End: 11-05-2023 ambulatory NAEL FARIAS Not Available Start: 10-23-2023 End: 10-23-2023 ambulatory NAEL FARIAS Not Available Start: 09-11-2023 End: 09-11-2023 ambulatory NAEL FARIAS Not Available Start: 09-09-2023 End: 09-09-2023 ambulatory SANDRA Daniel [facility] Ambulatory Start: 09-09-2023 End: 09-09-2023 Office outpatient visit 25 minutes Sandra Cole MD Work Phone: [facility] Comment on above: Hypogammaglobulinemi a (CMS/HCC) (Primary Dx); CVID (common variable immunodeficiency) (CMS/HCC) Start: 08-13-2023 End: 08-13-2023 Office outpatient visit 15 minutes Anirudh Sears MD Work Phone: [facility] Comment on above: Hypogammaglobulinemi a (CMS/HCC) Start: 08-13-2023 End: 08-13-2023 ambulatory ANIRUDH SEARS [facility] Start: 07-16-2023 End: 07-16-2023 ambulatory NOHELIA MACHADO Not Available Start: 05-29-[address] Nael Farias Facility: Start: 04-07-2023 Rx Renewal Nael Stout er Work Phone: [place] [address] DO Work Phone: Start: 02-25-2023 AUDIT Nael Stout er Work Phone: [facility] Pain [facility] Work Phone: Start: 02-20-2023 Current tobacco non- user cad cap copd pv dm Nael Farias Work Phone: [facility] Work Phone: Start: 02-20-[address] Fab Clark Faci lity:[id number] Start: 01-29-2023 Office outpatient vi sit 25 minutes Nael Farias Work Phone: [facility] 3 DO Work Phone: Start: 01-29-[address] Nael Farias Facility: Start: 01-22-[address] Nael Farias Facility:[facility] Start: 01-02-2023 End: 01-03-2023 ambulatory SANDRA COLE Facility:H1 Start: 12-20-2022 Office outpatient vi sit 15 minutes Nael Farias Work Phone: KN-Pqkuxmjbqi-Fzzhx luis m 2100 DO Work Phone: Start: 12-20-2022 Patient encounter procedure Moiz Farias Work Phone: FO-Kgqsqufpcb-Dhhfz luis m 2100 DO Work Phone: Start: 12-20-[address] Nael Farias Facility:[id number] Start: 10-22-2022 Rx Renewal Nael Stout er Work Phone: -[facility] 250 DO Work Phone: Start: 10-15-2022 End: 10-16-[address] NAEL FARIAS . Facility:H1 Start: 10-11-2022 End: 10-12-[address] DOCTOR CHÁVEZ Facility:H1 Start: 10-10-2022 ambulatory Anirudh Sears Facility:[facility] Start: 09-27-2022 End: 09-28-[address] DOCTOR CHÁVEZ Facility:H1 Start: 08-15-2022 ambulatory Anirudh Sears Facility:[facility] Start: 08-15-2022 ambulatory Anirudh Sears Faci lity:[id number] Start: 08-12-2022 End: 08-13-[address] DOCTOR CHÁVEZ Facility:H1 Start: 07-18-2022 End: 07-19-[address] DOCTOR CHÁVEZ Facility:H1 Start: 07-16-[address] Nael Farias Facility:[id number] Start: 06-11-2022 End: 06-11-2022 ambulatory MD Nael Farias Work Phone: [facility] Work Phone: Start: 06-11-2022 End: 06-11-2022 Patient encounter procedure MD Nael Farias Work Phone: [facility] Start: 04-01-2022 End: 04-02-[address] NAEL FARIAS . Facility:H1 Start: 02-21-[address] Nael Farias Facility:[id number] Start: 02-20-2022 End: 02-21-[address] DOCTOR CHÁVEZ Facility:H1 Start: 12-28-2021 Office outpatient vi sit 15 minutes Nael Farias Work Phone: JF-Aidrlcwnby-Trask luis m 2100 DO Work Phone: Start: 12-28-2021 Patient encounter procedure Ed chavez Jaquan Farias Work Phone: QN-Rozpeidsqx-Hxxua luis m 2100 DO Work Phone: Start: 11-14-[address] Nael Farias Facility:[id number] Start: 11-08-2021 Office outpatient vi sit 25 minutes Nael Farias Work Phone: [facility] 3 DO Work Phone: Start: 05-22-2021 Chart Update Nael Stout er Work Phone: EB-Opomwksyrr-Ksprg luis m 2100 DO Work Phone: Start: 05-21-2021 Patient encounter procedure Ed chavez Jaquan Farias Work Phone: WI-Nbhvhericy-Rwwdk luis m 2100 DO Work Phone: Start: 08-02-2019 Patient encounter procedure Christopher Ra shidi GP-Wfmksriqv-Zttmwy n Work Phone: Start: 07-26-2019 Patient encounter procedure Christopher Ra shidi BU-Ymsfqpxqc-Kfdzqf n Work Phone: Start: 04-08-2019 Patient encounter procedure Edward H emeyer JH-Mldfawyjxqxdc-Tp [place] B102 Work Phone: Start: 03-08-2019 Patient encounter procedure Edward H emeyer VT-Xlmvdtqmetmeu-Ej [place] [address]102 Work Phone: Start: 07-08-2018 Patient encounter procedure Edscott ramsayer QD-Vefwsyzjzffng-Vl [place] B102 Work Phone: Start: 03-13-2018 Patient encounter procedure Edscott ramsayer BZ-Zggylzygkerwp-Lm [place] B102 Work Phone: Start: 12-17-2017 Patient encounter procedure Edscott garyeyer UT-Xfalgycuasolm-Lx [place] B102 Work Phone: Start: 09-19-2017 Patient encounter procedure Edscott Lui emeyer QP-Ocfrqgrtdagbs-Xd [place] B102 Work Phone: Procedures Date Procedure Procedure Detail Performing Clinician Start: 06-30-2024 ALL IMMUNOGLOBULIN G Ge neric External Data Provider Start: 06-02-2024 ALL CBC WITH AUTO DIFF Generic External Data Provider Start: 04-15-2024 MRI of cervical spin e with contrast MD Nael Farias Work Phone: Start: 04-15-2024 MRI of head MD Nael Farias Work Phone: Start: 09-09-2023 IMMUNOGLOBULINS (IGG , IGA, IGM) SANDRA COLE Start: 06-13-2022 Paola eSars MD Work Phone: Start: 08-02-2019 Assay of blood/uric acid Christopher Roland Start: 08-02-2019 Assay of parathormone A rash Roland Start: 08-02-2019 Assay of phosphorus inorganic Christopher Roland Start: 08-02-2019 Basic metabolic 1998 panel - Serum or Plasma Christopher Roland Start: 07-28-2019 Basic metabolic 1998 panel - Serum or Plasma Christopher Roland Start: 07-26-2019 25 hydroxy includes fractions if performed Christopher Roland Start: 07-26-2019 Assay of blood/uric acid Christopher Roland Start: 07-26-2019 Assay of parathormone A rash Roland Start: 07-26-2019 Assay of phosphorus inorganic Christopher Roland Start: 07-26-2019 Basic metabolic 1998 panel - Serum or Plasma Christopher Roland Start: 07-26-2019 Creatinine other source Christopher Roland Start: 07-26-2019 Protein total xcpt refractometry urine Christopher Roland Start: 07-26-2019 Ultrasound Kidney Bilateral Christopher Roland Start: 07-26-2019 Urnls dip stick/tabl et rgnt auto w/o microscopy Christopher Roland Start: 12-23-2017 Lipid 1996 panel - S eulalio or Plasma Anirudh Sears MD Work Phone: Fasciotomy of foot Nael ng SARS Antigen (LFIA) MD Solis Farias Work Phone: Plan of Treatment Date Care Activity Detail Author Start: 06-13-2032 Screening for malignant neoplasm of colon [facility] Start: 01-03-2025 End: 01-03-2025 Patient encounter procedure 01/03/2025 10:45 AM EDT Office Visit [facility] [address] [place] [phone] Sandra Cole MD [address] [facility] [address] [place] [address] [facility] Start: 10-23-2024 Medicare Annual Wellness (AWV) Medicare Annual Wellness (AWV) [facility] Start: 10-08-2024 End: 10-08-2024 Patient encounter procedure 10/08/2024 10:40 AM EST Office Visit [facility] [address] [place] [address] Dr [address] [place] [phone] Christopher Watkins MD [address] [place] [address] Dr [address] [place] [address] [facility] Start: 08-23-2024 End: 08-23-2024 Patient encounter procedure [facility] 100 Start: 08-16-2024 End: 08-16-2024 Patient encounter procedure 08/16/2024 10:40 AM EST Office Visit [facility] [address] [place] [address] Dr [address] [place] [phone] Anirudh Sears MD [address] [place] [address] Dr [address] [place] [address] [facility] Start: 08-09-2024 End: 08-09-2024 Patient encounter procedure 08/09/2024 8:20 AM EST Office Visit [facility] [address] [place] [phone] Arely Gabriel NP [address] [place] [phone] [facility] Start: 07-14-2024 End: 07-14-2024 Patient encounter procedure 07/14/2024 1:45 PM EST Office Visit [facility] [address] [place] [phone] Nohelia Machado, DO [address] [facility] [place] [address] [facility] Start: 07-05-2024 End: 07-05-2024 Patient encounter procedure 07/05/2024 10:45 AM EST Office Visit [facility] [address] [facility] [address] [place] [phone] Sandra Cole MD [address] [facility] [address] [place], [place] [phone] [facility] Start: 06-11-2024 End: 06-11-2025 Basic metabolic 2000 panel - Serum or Plasma Basic Metabolic Panel Lab Routine Stage 3b chronic kidney disease (Multi) Essential hypertension Hyperparathyroidism, secondary (Multi) Expected: 06/11/2024 (Approximate), Expires: 06/11/2025 [facility] Service Area Work Phone: Comment on above: Expected: 06/11/2024 (Approximate), Expires: 06/11/2025 Start: 06-11-2024 End: 06-11-2025 Creatinine [Mass/volume] in Urine Creatinine, Urine Random Lab Routine Stage 3b chronic kidney disease (Multi) Essential hypertension Hyperparathyroidism, secondary (Multi) Expected: 06/11/2024 (Approximate), Expires: 06/11/2025 [facility] Work Phone: Comment on above: Expected: 06/11/2024 (Approximate), Expires: 06/11/2025 Start: 06-11-2024 End: 06-11-2025 Parathyrin.intact [Mass/volume] in Serum or Plasma Parathyroid Hormone, Intact Lab Routine Stage 3b chronic kidney disease (Multi) Essential hypertension Hyperparathyroidism, secondary (Multi) Expected: 06/11/2024 (Approximate), Expires: 06/11/2025 [facility] Work Phone: Comment on above: Expected: 06/11/2024 (Approximate), Expires: 06/11/2025 Start: 06-11-2024 End: 06-11-2025 Protein, Urine Random Protein, Urine Random Lab Routine Stage 3b chronic kidney disease (Multi) Essential hypertension Hyperparathyroidism, secondary (Multi) Expected: 06/11/2024 (Approximate), Expires: 06/11/2025 [facility] Work Phone: Comment on above: Expected: 06/11/2024 (Approximate), Expires: 06/11/2025 Start: 06-11-2024 End: 06-11-2024 Patient encounter procedure 06/11/2024 10:30 AM EDT Office Visit [facility] [address] [facility] [address] [place] [phone] Christopher Watkins [place] [id number] [place] [address] Dr [address] [place] [address] [facility] Start: 05-02-2024 COVID-19 Vaccine ( season) COVID-19 Vaccine ( season) [facility] Start: 05-02-2024 COVID-19 Vaccine ( season) COVID-19 Vaccine ( season) [facility] Start: 05-02-2024 Influenza vaccination Influenza Vacc ine (#1) [facility] Start: 01-05-2024 End: 01-05-2024 Patient encounter procedure 01/05/2024 10:45 AM EDT Office Visit [facility] [address] [place] [address] Sandra Cole MD [address] [facility], [address] [place] [address] [facility] Start: 12-05-2023 End: 12-04-2024 Basic metabolic 2000 panel - Serum or Plasma Basic Metabolic Panel Lab Routine Stage 3b chronic kidney disease (CMS/HCC) Essential hypertension Expected: 12/05/2023 (Approximate), Expires: 12/04/2024 [facility] Service Area Work Phone: Comment on above: Expected: 12/05/2023 (Approximate), Expires: 12/04/2024 Start: 12-05-2023 End: 12-04-2024 Creatinine [Mass/volume] in Urine Creatinine, Urine Random Lab Routine Stage 3b chronic kidney disease (CMS/HCC) Essential hypertension Expected: 12/05/2023 (Approximate), Expires: 12/04/2024 [facility] Work Phone: Comment on above: Expected: 12/05/2023 (Approximate), Expires: 12/04/2024 Start: 12-05-2023 End: 12-04-2024 Parathyrin.intact [Mass/volume] in Serum or Plasma Parathyroid Hormone, Intact Lab Routine Stage 3b chronic kidney disease (CMS/HCC) Essential hypertension Expected: 12/05/2023 (Approximate), Expires: 12/04/2024 [facility] Work Phone: Comment on above: Expected: 12/05/2023 (Approximate), Expires: 12/04/2024 Start: 12-05-2023 End: 12-04-2024 Protein, Urine Random Protein, Urine Random Lab Routine Stage 3b chronic kidney disease (CMS/HCC) Essential hypertension Expected: 12/05/2023 (Approximate), Expires: 12/04/2024 [facility] Work Phone: Comment on above: Expected: 12/05/2023 (Approximate), Expires: 12/04/2024 Start: 11-27-2023 End: 11-27-2023 Patient encounter procedure 11/27/2023 12:20 PM EDT Office Visit [facility] [address] [facility] [address] [place] [phone] [place] [address] [facility] [address] [place] [address] [facility] Start: 10-20-2023 End: 10-20-2023 Patient encounter procedure 10/20/2023 3:00 PM EST Office Visit [facility] [address] [facility] [address] [place] [phone] Sandra Cole MD [address] [facility] [address] [place] [address] [facility] Start: 09-09-2023 End: 09-09-2024 Immunoglobulins (IgG, IgA, IgM) Immunoglobulins (IgG, IgA, IgM) Lab Routine CVID (common variable immunodeficiency) (CMS/HCC) Expected: 09/09/2023 (Approximate), Expires: 09/09/2024 [facility] Service Area Work Phone: Comment on above: Expected: 09/09/2023 (Approximate), Expires: 09/09/2024 Start: 08-12-2023 End: 08-11-2024 CBC W Auto Differential panel - Blood CBC and Auto Differential Lab Routine Hypogammaglobulinemia (CMS/HCC) Expected: 08/12/2023 (Approximate), Expires: 08/11/2024 [facility] Service Area Work Phone: Comment on above: Expected: 08/12/2023 (Approximate), Expires: 08/11/2024 Start: 08-12-2023 End: 08-11-2024 Comprehensive metabolic 2000 panel - Serum or Plasma Comprehensive Metabolic Panel Lab Routine Hypogammaglobulinemia (CMS/HCC) Expected: 08/12/2023 (Approximate), Expires: 08/11/2024 [facility] Work Phone: Comment on above: Expected: 08/12/2023 (Approximate), Expires: 08/11/2024 Start: 08-12-2023 End: 08-11-2024 Lactate dehydrogenase [Enzymatic activity/volume] in Serum or Plasma by Lactate to pyruvate reaction Lactate dehydrogenase Lab Routine Hypogammaglobulinemia (CMS/HCC) Expected: 08/12/2023 (Approximate), Expires: 08/11/2024 [facility] Work Phone: Comment on above: Expected: 08/12/2023 (Approximate), Expires: 08/11/2024 Start: 08-09-2023 COVID-19 Vaccine (4 - Pfizer risk series) COVID-19 Vaccine (4 - Pfizer risk series) [facility] Start: 08-09-2023 COVID-19 Vaccine ( season) COVID-19 Vaccine ( season) [facility] Start: 08-09-2023 COVID-19 Vaccine ( season) COVID-19 Vaccine () [facility] Start: 05-29-2023 FUV, Provider: Christopher Watkins, Status: Pen, Time: 12:50 PM FUV, Provider: Christopher Watkins, Status: Pen, Time: 12:50 PM [facility] 3 DO Work Phone: Start: 01-23-2023 FUV, Provider: Christopher Watkins, Status: Pen, Time: 11:10 AM FUV, Provider: Christopher Watkins, Status: Pen, Time: 11:10 AM GQ-Tnbhvvfmek-Rdz [place] 2100 DO Work Phone: Start: 01-21-2023 FUV, Provider: Christopher Watkins, Status: Pen, Time: 1:00 PM FUV, Provider: Christopher Watkins, Status: Pen, Time: 1:00 PM [facility] Work Phone: Start: 12-23-2022 Lipid panel Lipid Panel [facility] Start: 07-02-2022 Diabetes mellitus screening Diabetes Screening [facility] Start: 03-12-2022 FUV, Provider: Christopher Watkins, Status: Pen, Time: 2:10 PM FUV, Provider: Christopher Watkins, Status: Pen, Time: 2:10 PM [facility] [place] 3 DO Work Phone: Start: 11-08-2021 FUV, Provider: Christopher Watkins, Status: Pen, Time: 10:00 AM FUV, Provider: Christopher Watkins, Status: Pen, Time: 10:00 AM EK-Hhorymdwsv-Tla [place] [address]100 DO Work Phone: Start: 2020 Hepatitis B Vaccines (1 of 3 - Risk 3-dose series) Hepatitis B Vaccines (1 of 3 - Risk 3-dose series) [facility] Start: 2020 RSV High Risk: (Elderly (60+) or Population) (1 - Risk 60-74 years 1-dose series) RSV High Risk: (Elderly (60+) or Population) (1 - Risk 60-74 years 1-dose series) [facility] Start: 2020 RSV patient s and/or patients aged 60+ years (1 - 1-dose 60+ series) RSV patients and/or patients aged 60+ years (1 - 1-dose 60+ series) [facility] Start: 07-27-2019 Ultrasound Kidney Bilat eral GT-Ecjpxtdah-Agez man Work Phone: Start: 1982 DTaP/Tdap/Td Vaccine s (1 - Tdap) DTaP/Tdap/Td Vaccines (1 - Tdap) [facility] Start: 11-16-1979 Hepatitis A Vaccines (1 of 2 - Risk 2-dose series) Hepatitis A Vaccines (1 of 2 - Risk 2-dose series) [facility] Start: 11-16-1979 Zoster Vaccines (1 o f 2) Zoster Vaccines (1 of 2) [facility] Start: 1966 Pneumococcal Vaccine : Pediatrics (0 to 5 Years) and At-Risk Patients (6 to 64 Years) (1 - PCV) Pneumococcal Vaccine: Pediatrics (0 to 5 Years) and At-Risk Patients (6 to 64 Years) (1 - PCV) [facility] Start: 1966 Pneumococcal Vaccine : Pediatrics (0 to 5 Years) and At-Risk Patients (6 to 64 Years) (1 of 2 - PCV) Pneumococcal Vaccine: Pediatrics (0 to 5 Years) and At-Risk Patients (6 to 64 Years) (1 of 2 - PCV) [facility] Start: 1960 HIV screening HIV Screening [facility] Start: 1960 Medicare Annual Wellness Visit Medicare Annual Wellness Visit (AWV) [facility] Start: 1960 Screening for malignant neoplasm of colon [facility] aPTT in Platelet poo r plasma by Coagulation assay [facility] Platelets [#/volume] in Blood [facility] HQ-Phlwgomjn-Rj id man Work Phone: [facility] NEGATED: Highlighted row has been ruled out! Planned Goals not documented MG-Neurolog y-Berto man Work Phone: Immunizations Immunization Date Immunization Notes Care Provider Marcos jones 06-14-2023 influenza, injectabl e, quadrivalent, preservative free Generic Provider [facility] 06-14-2023 influenza virus vaccine, unspecified formulation Generic Provider [facility] 08-27-2022 Moderna Bivalent Booster Vaccination Generic Provider [facility] 08-27-[address] 12 Years And Older Generic Provider [facility] 08-27-2022 Pfizer COVID-19 vaccine, bivalent, age 12 years and older (30 mcg/0.3 mL) Anirudh Sears MD Work Phone: [facility] Work Phone: 08-18-2022 influenza, injectabl e, quadrivalent, preservative free Anirudh Sears MD Work Phone: [facility] Work Phone: 01-01-2022 Pfizer Newman Cap SARS-CoV-2 Anirudh Sears MD Work Phone: [facility] Work Phone: 11-16-2020 Pfizer-BioNTech COVID-19 Vacc 30 MCG/0.3ML Intramuscular Suspension Nael Partida Stephanieevelyn Work Phone: [facility] 3 DO Work Phone: 02-08-2020 measles, mumps and rubella virus vaccine Moizscott Partida Andrea Work Phone: [facility] 3 DO Work Phone: Payers Date Payer Category Payer Self-pay [id number] 2021 Medicare [id number] 2021 Medicare (Managed Care) 1.2. [id number] 1960 Unknown [id number] 2.16.840.1.690280.3.579.2.1069 1960 Unknown [id number] 2.16.840.1.231216.3.579.2.1069 1960 Unknown [id number] 2.16.840.1.831224.3.579.2.1069 1960 Unknown [id number] 2.16.840.1.968818.3.579.2.593 1960 Unknown [id number] 2.16.840.1.598342.3.579.2.593 1960 Unknown [id number] 2.16.840.1.484327.3.579.2.593 1960 Unknown [id number] 2.16.840.1.631130.3.579.2.593 1960 Unknown [id number] 2.16.840.1.052500.3.579.2.593 1960 Unknown [id number] 2.16.840.1.218640.3.579.2.593 1960 Unknown [id number] 2.16.840.1.411442.3.579.2.593 1960 Unknown [id number] 2.16.840.1.463731.3.579.2.593 1960 Unknown [id number] 2.16.840.1.430874.3.579.2.1046 1960 Unknown [id number] 2.16.840.1.038571.3.579.2.356 1960 Unknown [id number] 2.16.840.1.416068.3.579.2.356 1960 Unknown [id number] 2.16.840.1.300205.3.579.2.356 1960 Unknown [id number] 2.16.840.1.931259.3.579.2.356 1960 Unknown [id number] 2.16.840.1.214651.3.579.2.356 1960 Unknown [id number] 2.16.840.1.153123.3.579.2.356 1960 Unknown [id number] 2.16.840.1.754857.3.579.2.356 1960 Unknown [id number] 2.16.840.1.201144.3.579.2.1245 1960 Unknown [id number] 2.16.840.1.873718.3.579.2.1245 1960 Unknown [id number] 2.16.840.1.135388.3.579.2.1259 1960 Unknown [id number] 2.16.840.1.308237.3.579.2.1259 1960 Unknown [id number] 2.16.840.1.890426.3.579.2.1259 1960 Unknown [id number] 2.16.840.1.859724.3.579.2.1259 1960 Unknown [id number] 2.16.840.1.080818.3.579.2.1259 1960 Unknown [id number] 2.16.840.1.773424.3.579.2.1259 1960 Unknown [id number] 2.16.840.1.926678.3.579.2.1259 1960 Unknown [id number] 2.16.840.1.738196.3.579.2.1259 1960 Unknown [id number] 2.16.840.1.216292.3.579.2.1259 1960 Unknown [id number] 2.16.840.1.924087.3.579.2.1244 1960 Unknown [id number] 2.16.840.1.027090.3.579.2.1244 1960 Unknown [id number] 2.16.840.1.509547.3.579.2.1244 1960 Unknown [id number] 2.16.840.1.487163.3.579.2.1244 1960 Unknown [id number] 2.16.840.1.761041.3.579.2.1244 1959 Medicare [id number] Private Health Insurance [facility] [id number] Unknown Unknown [facility] [id number] Unknown Aranza BC/BS [id number] Unknown [id number] 2.16.840.1.593287.3.579.2.531 Social History Date Type Detail Facility Start: 08-13-2023 End: 07-05-2024 Never a smoker Never a smoker [facility] Start: 1960 Sex Assigned At Male [facility] Start: 07-16-2023 End: 08-13-2023 Tobacco smoking status NHIS Never smoked tobacco [facility] History of tobacco use Passive smoker [facility] Work Phone: Start: 07-16-2023 End: 08-13-2023 Tobacco use and exposure Smokeless tobacco non-user [facility] Work Phone: Start: 08-13-2023 End: 07-05-2024 Alcohol intake Lifetime non-drinker (finding) [facility] Work Phone: Start: 08-13-2023 End: 07-05-2024 Tobacco use panel [facility] Start: 1960 Sex Assigned At [facility] Start: 08-03-2023 End: 07-05-2024 Exposure to SARS-CoV-2 (event) Not sure [facility] Start: 05-25-2024 Alcoholic beverage intake Ex-drinker (finding) [facility] Within the last year , have you been afraid of your partner or ex-partner? No [facility] Are you now , , , , never or living with a partner? [facility] How often to you hav e a drink containing alcohol? Never [facility] How many standard drinks containing alcohol do you have on a typical day? Patient does not drink [facility] Do you feel stress - tense, restless, nervous, or anxious, or unable to sleep at night because your mind is troubled all the time - these days [OSQ] Very much [facility] (I/We) worried whether (my/our) food would run out before (I/we) got money to buy more. Never true [facility] Start: 04-09-2023 Alcohol Comment Caffeine intak e: 1-2 cups per day soda [facility] NEGATED: Highlighted row - - TX-Qsphkrnzosood-Hsm eliezer bell [facility] Work Phone: Functional Status Date Assessment Result Facility NEGATED: Highlighted row Functional performance Functional status health issues are not documented Disease XS-Meuzrzkbdnkcq-Wg starabella [facility] Work Phone: Mental Status Date Assessment Result Facility NEGATED: Highlighted row Cognitive function [Interpretation] Cognitive status health issues are not documented Disease QH-Pczqidyzhnxqs-Ck sofie [facility] Work Phone: Clinical Notes 09-06-2020 to 07-05-2024 Sandra Cole MD - 07/05/2024 10:45 AM ESTPatient InstructionsAssessment & Plan Note - Carolyn Morrison - 07/05/2024 10:36 AM Keli Farias MD - 05/25/2024 10:00 AM EDT Note Date & Type Note Facility 07-05-2024 History of Presen t illness Narrative Subjective Katerina Danielle is a 63 y.o. male who presents for Follow-up (ACT 19). Chief Complaint Patient presents with Follow-up ACT 19 Patient presents for F/U of asthma and CVID. Started Gammagard 10-03-23 at [facility]. Started IVIG in 2018. At that time he received home health out of [place] to come to his home for administration. He would experience flulike symptoms with headache drainage and GI upset that would take him approximately a week to recover from. Therefore he discontinued treatment. He was then started on HyQvia around March 2021. He was changed to IVIG at [facility] due to cost. Since last visit, 01-05-24, patient reports his insurance switched his infusion and he missed August's infusion. In Sep 2023, they gave him the wrong infusion medication so he did not even have the correct one until Oct 2023. It is currently straightened out but has to pay his deductible of $4500 every year. He had his last infusion on , could not stay awake and felt like he was getting sick including chills. He denies fever and he checked his BP, which was normal. By Friday, he started to feel better and still felt mildly sick but today he feels well. Patient's son is a physician and told patient he should feel better after infusions. Both of his granddaughter's, ages 8 and 5, have contracted pneumonia recently with the youngest ending up hospitalized. The 8 year old has asthma. He states the infusions are necessary because he is around them all the time but he will wear a mask. He has intermittent diarrhea but has been healthy otherwise. Patient had blood work ordered Jun [address] Watkins, Retail Support Specialist. He had an MRI of his head showed an abnormality he saw Dr. Sears for. She thinks it was all arthritic and told patient no need to be concern. He has arthritis in his knees, shoulders and and elbows. He was told shots may be given in his neck. He was taking baclofen for his nerve but was switched to something else that caused hot flashes and disrupted his sleep. He called his physician who recommended he return to baclofen. He did research, started eating an apple a day and had cramps only one time since. Patient used gabapentin S/P stem cell transplant 2017. Patient drives 1.5 hours here for this appointment though does not mind the drive. Review of Systems Musculoskeletal: Positive for arthralgias. Objective Ht 1.829 m (6') Wt 123 kg (272 lb) BMI 36.89 kg/m Physical Exam Constitutional: Appearance: Normal appearance. [...] Affect: Mood normal. Behavior: Behavior normal. Assessment/Plan Asthma ([facility]) ACT is 19. He is doing well from an asthma standpoint. He will continue the Wixela one inhalation twice a day. CVID (common variable immunodeficiency) He is tolerating his Gammagard well. Last IgG was 741. Cost is still an issue, but the patient understands that he has few options. He will continue his current treatment. He is due to for a level quarterly By signing my name below, I, Chelly Curiele, attest that this documentation has been prepared under the direction and in the presence of Sandra Cole MD. All medical record entries made by the Scribe were at my direction and personally dictated by me. I have reviewed the chart and agree that the record accurately reflects my personal performance of the history, physical exam, discussion and plan. documented in this encounter [facility] Work Phone: 07-05-2024 Instructions Carolyn Morrison - 07/05/2024 10:45 AM EST Continue Wixela one inhalation two times a day. Continue Gammagard infusions at [facility] as scheduled. Follow up in 6 months or sooner if symptoms worsen prior. documented in this encounter [facility] Work Phone: 07-05-2024 Evaluation + Plan note Associated Problem(s): CVID (common variable immunodeficiency) He is tolerating his Gammagard well. Last IgG was 741. Cost is still an issue, but the patient understands that he has few options. He will continue his current treatment. He is due to for a level quarterly [facility] Work Phone: 07-05-2024 Miscellaneous Notes Associated Problem(s): CVID (common variable immunodeficiency) He is tolerating his Gammagard well. Last IgG was 741. Cost is still an issue, but the patient understands that he has few options. He will continue his current treatment. He is due to for a level quarterly Associated Problem(s): Asthma ACT is 19. He is doing well from an asthma standpoint. He will continue the Wixela one inhalation twice a day. documented in this encounter [facility] Work Phone: 07-04-2024 Evaluation + Plan note Associated Problem(s): Asthma ACT is 19. He is doing well from an asthma standpoint. He will continue the Wixela one inhalation twice a day. [facility] Work Phone: 05-25-2024 History of Presen t illness Narrative Images from the original note were not included. Patient ID: Katerina Danielle is a 63 y.o. male who presents for: Pt is here for follow-up of chronic pain related to back, hips, legs, muscle. Her/His pain is stable with the restricted and limited use of legs. Pain is usually 8/10, described as aching, sharp, and throbbing and occurs continuously. Pt states he saw a pain dr and he put him on a new medication and his BP bottomed out and it took 2 hours to recover. He had stopped taking it again until last night. He wants to discuss with . Asthma Patient presents for evaluation of dyspnea and non-productive cough. The patient has been previously diagnosed with asthma. Symptoms currently include dyspnea, non-productive cough, and wheezing and occur continuously. Observed precipitants include: animal dander, dust, infection, pollens, smoke, and upper respiratory infection. Does he do nebulizer treatments? yes Does he use an inhaler? yes Does he use a spacer with MDIs? no Does he monitor peak flow rates? yes What is his personal best peak flow rate: havent done it in a while Review of Systems Constitutional: Negative for activity change and fatigue. Respiratory: Positive for cough, shortness of breath and wheezing. Cardiovascular: Positive for chest pain and leg swelling. Negative for palpitations. Neurological: Negative for light-headedness and headaches. Objective The patient is pleasant and in no acute distress. The neck is supple and trachea is midline. No masses are appreciated. The heart sounds are somewhat distant. The heart is regular rate and rhythm without S3, S4. No murmur. The patient has normal respiratory pattern. The breath sounds are diffusely decreased but symmetrical without evidence of rhonchi or rales. No wheezing. The skin is warm and dry. The lower extremities have trace edema. The patient has good eye contact and speech is clear. Appropriate affect. Visit Vitals Ht 6' Wt 264 lb BMI 35.80 kg/m Smoking Status Never BSA 2.47 m No visits with results within 6 Month(s) from this visit. Latest known visit with results is: Clinisync Result Encounter on 09/10/2023 Component Date Value Ref Range Status IMMUNOGLOBULIN G, QN, SERUM 09/10/2023 610 603 - 1613 mg/dL Final IMMUNOGLOBULIN A, QN, SERUM 09/10/2023 12 (A) 61 - 437 mg/dL Final Result confirmed on concentration. IMMUNOGLOBULIN M, QN, SERUM 09/10/2023 <5 (A) 20 - 172 mg/dL Final Comment: Result confirmed on concentration. Performed at: [address] [id number] [employer]: Benjamín Vora PhD, Phone: [phone] Allergies Allergen Reactions Capsaicin Diarrhea Dapsone Other Reaction(s): nausea, chills, vomiting Levofloxacin Other Reaction(s): diarrhea Prochlorperazine Other Reaction(s): Hives nausea Sulfamethoxazole-Trimethoprim Other Reaction(s): Hives Current Outpatient Medications on File Prior to Visit Medication Sig Dispense Refill baclofen (Lioresal) 10 MG tablet Take by mouth; 1/2 tablet in the morning, 1/2 tablet at lunchtime, and 1 tablet in the evening. (Patient taking differently: Take 10 mg by mouth 1 in AM) 180 tablet 0 calcitriol (Rocaltrol) 0.25 MCG capsule Take 0.25 mcg by mouth See administration instructions. TAKE 1 CAPSULE BY MOUTH ONCE DAILY ON WEEKDAYS AND 2 CAPSULES ONCE DAILY ON FRI. AND SUN. cetirizine (ZyrTEC) 10 MG tablet Take 10 mg by mouth Daily as needed for allergies cholecalciferol (Vitamin D-3) 250 MCG (13999 UT) capsule Take 1 capsule by mouth in the morning. Fluticasone-Salmeterol (Wixela Inhub) 500-50 MCG/ACT aerosol powder Inhale 1 puff Daily gabapentin (Neurontin) 100 MG capsule Take 100 mg by mouth in the morning and 100 mg before bedtime. gabapentin (Neurontin) 300 MG capsule Take 1-2 capsules (300-600 mg) by mouth at bedtime Take 1 to 2 capsules in the evening 180 capsule 1 Homeopathic Products (Leg Cramp Relief) sublingual tablet Place 1 tablet under the tongue if needed Immune Globulin, Human, 40 GM/400ML solution Inject 400 mL as directed every 30 (thirty) days magnesium gluconate 250 MG tablet Take 1 tablet by mouth Daily omeprazole OTC (PriLOSEC OTC) 20 MG EC tablet Take 20 mg by mouth in the morning. Take before meals. Do not crush, chew, or split.. ondansetron (Zofran) 8 MG tablet Take 8 mg by mouth every 8 (eight) hours if needed for nausea. oxyCODONE (Roxicodone) 5 MG immediate release tablet Take 5 mg by mouth every 6 (six) hours if needed for severe pain polyvinyl alcohol-povidone PF (Refresh) 1.4-0.6 % ophthalmic solution Administer 1-2 drops into both eyes if needed Potassium 99 MG tablet 1 (one) time each day at the same time. sildenafil (Revatio) 20 MG tablet Take 1 to 5 tablets as needed daily 90 tablet 1 tiZANidine (Zanaflex) 4 MG tablet Take 2 mg by mouth in the morning and 2 mg before bedtime. valsartan (Diovan) 80 MG tablet Take 80 mg by mouth in the morning. [DISCONTINUED] zinc 50 MG tablet Take 0.5 tablets by mouth 1 (one) time each day No current facility-administered medications on file prior to visit. 1. Chronic pain syndrome Chronic problem, stable, multifactorial, with complex decision making. The patient presents for re-evaluation of their chronic pain syndrome and treatment recommendations. They note, that the pain is still present but under reasonable control with home therapies and medications. They state that they are taking their medications compliantly and perceiving a benefit specifically from these medications. They deny any significant side effects from the medications themselves. The treatment program enables them to continue their activities of daily living. He has not need a refills today. 2. Drug-induced polyneuropathy (CMS/HCC) Chronic problem that is a component of his chronic pain syndrome. Fairly well managed with the gabapentin. 3. Spasm Chronic problem that Neurology is also looking into. A component of his chronic pain syndrome. He truly describes spasms with actual drawing up of the flexor components of both his upper extremities and to a lesser degree his lower extremities. 4. Moderate persistent asthma without complication (CMS/HCC) Chronic problem, stable. He does note he gets short of breath with activity but denies any wheezing. 5. Morbid obesity (CMS/HCC) Encouraged specific lifestyle changes. 6. BMI 35.0-35.9,adult Defines the morbid obesity when combined with multi morbidity documented in this encounter [facility] 01-05-2024 Evaluation + Plan note Associated Problem(s): Asthma (HHS-HCC) ACT is 19. Sx are controlled currently. [...] to see him back in 6 months [facility] Work Phone: 01-05-2024 Miscellaneous Notes Associated Problem(s): Asthma ([facility]) ACT is 19. Sx are controlled [...] for the patient. Continue Gammagard infusions at [facility]. He will maintain his current dose. His last level in October 2023 was a little low at 699. Nonetheless, the patient has not had any infections and therefore we will not increase his dose at this time. I would like to check it in 3 months time. documented in this encounter [facility] Work Phone: 01-05-2024 Evaluation + Plan note [...] for the patient. Continue Gammagard infusions at [facility]. He will maintain his current dose. His last level in October 2023 was a little low at 699. Nonetheless, the patient has not had any infections and therefore we will not increase his dose at this time. I would like to check it in 3 months time. [facility] Work Phone: 01-05-2024 History of Presen t illness Narrative Subjective Katerina Danielle is a 63 y.o. male who presents for Immunodeficiency. Chief Complaint Patient presents with Immunodeficiency Since last visit, 12-20-22, patient states his infusions at [facility] are going well but pays over $700 [...] for the patient. Continue Gammagard infusions at [facility]. He will maintain his current dose. His last level in October 2023 was a little low at 699. Nonetheless, the patient has not had any infections and therefore we will not increase his dose at this time. I would like to check it in 3 months time. Asthma ([facility]) ACT is 19. Sx are controlled [...] months By signing my name below, I, Marlene [...] discussion and plan. documented in this encounter [facility] Work Phone: 01-05-2024 Instructions Carolyn Morrison - 01/05/2024 10:45 AM EDT Continue Wixela or Breo one inhalation one time a day. Continue Gammagard infusions at [facility] as scheduled. Follow up in 6 months or sooner if symptoms worsen prior. documented in this encounter [facility] Work Phone: 09-10-2023 Evaluation + Plan note Associated Problem(s): Asthma Patient states the cost of his Arnuity went up dramatically this year. He is unable to afford the $42 a month co-pay. Therefore, I am going to try to change him to a lower cost inhaler. I am also going to ask my staff to send him co-pay assistance through [employer]. According to the patient his primary care recommended albuterol 2 inhalations twice a day as a maintenance and then every 4 hours as needed, but I am concerned about him developing tolerance to the albuterol and not having his underlying inflammation treated with a maintenance medication. Therefore I am going to attempt to get a covered inhaled corticosteroid for maintenance. [facility] Work Phone: 09-10-2023 Miscellaneous Notes Associated Problem(s): Asthma Patient states the cost of his Arnuity went up dramatically this year. He is unable to afford the $42 a month co-pay. Therefore, I am going to try to change him to a lower cost inhaler. I am also going to ask my staff to send him co-pay assistance through [employer]. According to the patient his primary care [...] maintenance. Associated Problem(s): CVID (common variable immunodeficiency) ([facility]) Unfortunately, this is an insurance nightmare. His benefits have changed. I am going to ask my staff to look into what the actual issue is. He is willing to go to IVIG monthly which is probably his best bet. Unfortunately he does live some distance away. We will try to coordinate care with [facility]. Due to his kidney disease I do not really feel that IV is the best option, but under the circumstances IV is better than nothing. documented in this encounter [facility] Work Phone: 09-10-2023 Evaluation + Plan note Associated Problem(s): CVID (common variable immunodeficiency) ([facility]) Unfortunately, this is an insurance nightmare. His benefits have changed. I am going to ask my staff to look into what the actual issue is. He is willing to go to IVIG monthly which is probably his best bet. Unfortunately he does live some distance away. We will try to coordinate care with [facility]. Due to his kidney disease I do not really feel that IV is the best option, but under the circumstances IV is better than nothing. [facility] Work Phone: 09-09-2023 History of Presen t [...] him 08/12/2023 that he was switched to [place] who never contacted him despite him calling [...] Patient did test positive for COVID at [facility] and again on 08/27/2023. He and [...] Judgment normal. Assessment/Plan CVID (common variable immunodeficiency) ([facility]) Unfortunately, this is an insurance nightmare. His benefits have changed. I am going to ask my staff to look into what the actual issue is. He is willing to go to IVIG monthly which is probably his best bet. Unfortunately he does live some distance away. We will try to coordinate care with [facility]. Due to his kidney disease I [...] staff to send him co-pay assistance through [employer]. According to the patient his primary care [...] maintenance. By signing my name below, I, Ronny [...] discussion and plan. documented in this encounter [facility] Work Phone: 09-09-2023 Instructions Carolyn Tamiko - 09/09/2023 5:15 PM EST Obtain blood work to check IgG, IgA and IgM levels. We will call you with results, recommendations and followup plan. Compare QVAR to Arnuity. Use albuterol only as needed. I will let you know what our plan is for your infusions. documented in this encounter [facility] Work Phone: 08-13-2023 History of Presen t [...] referred to Dr. Rodriguez in oncology at [facility] for evaluation. 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 Bone marrow biopsy was done which was negative for involvement with lymphoma . He also underwent an LP with low yield. Because of his meningeal enhancement and location close to PLANNING DIRECTOR, he was treated with hyperCVAD-MA. He received [...] was compared to this patient's previous biopsy ([id number]). The previous biopsy demonstrated areas of necrosis [...] TP53 mutations. The patient was enrolled on [id number], Venetoclax+RICE. Cycle 1 started 10/29/17. Had tumor [...] pneumonitis. The patient was recently readmitted to [facility] (06/16-06/18/18) for fever and PNA. 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 He completed by mouth Levaquin. The patient was admitted to [facility] (08/18-08/21/18) with a new PE. He was [...] CAR T Cell infusion 01/04/19 with tisagenlecleucel (Devotee/Viigo) with preparative regimen of fludarabine and cytoxan. [...] Labs/Imaging/Pathology: personally reviewed reports and images in [facility] electronic medical record system. Pertinent results as it related to the plan represented in below in assessment and plan. Assessment/Plan 1. 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 Treated with tisagenlecleucel (Ashley/Tobias). Preparative regimen includes Fludarabine and Cyclophosphamide 08/13/23: [...] could benefit from further evaluation with another supervisor heat treating. Patient will consider 6. Hypogammaglobulinemia: - Restarted [...] note has been transcribed using a medical assistant dermatology and there is a possibility of unintentional typing misprints. Diagnoses and all orders for this visit: Hypogammaglobulinemia (CMS/HCC) - CBC and Auto Differential; Future - Comprehensive Metabolic Panel; Future - Lactate dehydrogenase; Future - Clinic Appointment Request Follow up; Future Anirudh Sears MD Hematology/Oncology [facility] Scribe Attestation By signing my name below, I Bernardajay Noe, Marleneibhardik attest that this documentation has been prepared under the direction and in the presence of Anirudh Sears MD. documented in this encounter [facility] Work Phone: 02-20-2023 History of [...] of IV drug abuse, recent trauma. -Pain Management[facility] Work Phone: 02-20-2023 History of [...] history of IV drug abuse, recent trauma. [facility] Work Phone: 02-20-2023 History of Presen [...] history of IV drug abuse, recent trauma. [facility] Work Phone: 12-28-2021 History of Presen [...] that point, PCP referred patient to a Store Host at [facility].He saw Nohelia Machado DO, Store Host at [facility], did a breathing test and ordered [...] he does have bloating and tenderness after. KU-Xfzpkmxhlj-Xqolpjab 2100 DO Work Phone: 12-28-2021 History of [...] that point, PCP referred patient to a Store Host at [facility].He saw Nohelia Machado DO, Store Host at [facility], did a breathing test and ordered [...] he does have bloating and tenderness after. [employer] [facility] DO Work Phone: 05-21-2021 History of [...] will have his second COVID booster Friday.. FD-Owvtrsftrl-Tchmmebz 2099 DO Work Phone: 05-21-2021 History of Presen [...] will have his second COVID booster Friday.. IO-Bqqnrstxqo-Sgvzyqky 2100 DO Work Phone: 09-06-2020 History of Presen t illness Narrative Since last visit, 09/06/2020, patient reportsHe had his labs done at [facility] 2 weeks ago and he requested [...] be a large B cell lymphoma S/P. WF-Fwpgbvcpip-Hhkgpttz 2100 DO Work Phone: Evaluation note No assessment inform ation available [facility] Work Phone: Evaluation note Diagnosis Hypogammaglobulinemia (CMS/HCC) Unspecified hypogammaglobulinemia documented in this encounter [facility] Work Phone: Evaluation note* Diagnosis Hypogammaglobulinemia (CMS/HCC)- Primary Unspecified hypogammaglobulinemia CVID (common variable immunodeficiency) ([facility]/HCC) Common variable immunodeficiency documented in this encounter [facility] Work Phone: Evaluation note* Diagnosis Stage 3b chronic kidney disease (CMS/HCC)- Primary Essential hypertension Unspecified essential hypertension Hyperparathyroidism, secondary ([facility]/HCC) documented in this encounter [facility] Work Phone: Evaluation note* Diagnosis Asthma, unspecified asthma severity, unspecified whether complicated, unspecified whether persistent ([facility])- Primary CVID (common variable immunodeficiency) (Multi) Common variable immunodeficiency documented in this encounter [facility] Work Phone: Evaluation note* Diagnosis Onset Date Resolution Status B-cell lymphoma acute DDD (degenerative disc disease), cervical acute Muscle spasm acute Other chronic pain acute [facility] Work Phone: Evaluation note* Diagnosis Chronic pain syndrome 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 Spasm Abnormal involuntary movements Moderate persistent asthma without complication (CMS/HCC) Morbid obesity (CMS/HCC) Morbid obesity BMI 35.0-35.9,adult documented in this encounter [facility] HealthcareEvaluation note* Diagnosis Hypogammaglobulinemia (Multi)- Primary Unspecified hypogammaglobulinemia CVID (common variable immunodeficiency) Common variable immunodeficiency Asthma, unspecified asthma severity, unspecified whether complicated, unspecified whether persistent ([facility]HS-HCC)- Primary CVID (common variable immunodeficiency) Common variable immunodeficiency Stage 3b chronic kidney disease (Multi)- Primary Essential hypertension Unspecified essential hypertension Hyperparathyroidism, secondary (Multi) documented in this encounter [facility] Work Phone: Evaluation note* Diagnosis Onset Date Resolution Status B-cell lymphoma acute DDD (degenerative disc disease), cervical acute Muscle spasm acute Other chronic pain acute B-cell lymphoma acute DDD (degenerative disc disease), cervical acute Muscle spasm acute Other chronic pain acute [facility] Work Phone: Evaluation note* Diagnosis Hypogammaglobulinemia (Multi)- Primary Unspecified hypogammaglobulinemia CVID (common variable immunodeficiency) Common variable immunodeficiency Asthma, unspecified asthma severity, unspecified whether complicated, unspecified whether persistent ([facility]-HCC)- Primary CVID (common variable immunodeficiency) Common variable immunodeficiency CVID (common variable immunodeficiency)- Primary Common variable immunodeficiency Asthma, unspecified asthma severity, unspecified whether complicated, unspecified whether persistent ([facility]-HCC) documented in this encounter [facility] Work Phone: History of Present illness NarrativeThe [...] is currently asymptomatic. No associated symptoms are reported.[facility] 3 DO Work Phone: History of Present illness Narrative* Christopher Watkins MD - 12/05/2023 10:10 AM EDT Katerina Danielle 63 y.o. @@ [facility]/Room: [id number]/Room/bed info not found Subjective: The patient is [...] mg/3 mL nebulizer solution Inhale. artificial tears, zrifolm-fhovvco-smhlbpel, 0.1-0.3-0.2 % ophthalmic solution Administer into affected [...] Onco-Nephrology Program Division of Nephrology & Hypertension [facility]: History of Present illness Narrative* Christopher Watkins MD - 06/11/2024 10:30 AM EDT Katerina Danielle 63 y.o. @WT@ [facility]/Room: [id number]/Room/bed info not found Subjective: The patient is [...] mg/3 mL nebulizer solution Inhale. artificial tears, ysdkcue-mykkxdp-kapwjlxr, 0.1-0.3-0.2 % ophthalmic solution Administer into affected eye(s) 4 times a day as needed. calcitriol (Rocaltrol) 0.25 mcg capsule TAKE 2 CAPSULES OVER THE WEEKENDS AND 1 CAPSULE THE OTHER DAYS 117 capsule 3 cetirizine (ZyrTEC) 10 mg tablet Take 1 tablet (10 mg) by mouth once daily. cholecalciferol (Vitamin D3) 5,000 Units tablet Take 2 tablets (10,000 Units) by mouth once daily. diphenhydrAMINE (Benadryl Allergy) 25 mg tablet Take by mouth. fluticasone propion-salmeteroL (Wixela Inhub) 500-50 mcg/dose diskus inhaler Inhale 1 puff 2 times a day. Rinse mouth with water after use to reduce aftertaste and incidence of candidiasis. Do not swallow. 180 each 2 gabapentin (Neurontin) 100 mg capsule Take 1 capsule (100 mg) by mouth 2 times a day. gabapentin (Neurontin) 300 mg capsule Take by mouth once daily at bedtime. immune globulin, human, (Gammagard Liquid) infusion Infuse 400 mL (40 g) into a venous catheter every 30 (thirty) days. 400 mL 11 lubricating eye drops (polyvinyl alcohol-povidon,PF,) ophthalmic solution Administer 1-2 drops intoboth eyes. magnesium gluconate 12.5 mg magne- sium (250 mg) tablet every 12 hours. omeprazole (PriLOSEC) [address] capsule Take by mouth once daily. ondansetron (Zofran) 8 mg tablet Take by mouth every 8 hours if needed. oxyCODONE (Roxicodone) 5 mg immediate release tablet Take by mouth every 4 hours if needed. potassium citrate 99 mg capsule Take 1 tablet by mouth once daily. tiZANidine (Zanaflex) 4 mg capsule 2 mg once daily. valsartan (Diovan) 80 mg tablet TAKE 1 TABLET DAILY 90 tablet 0 cholecalciferol (Vitamin D3) 50 MCG (2000 UT) tablet Take 1 tablet (50 mcg) by mouth once daily. ZINC CITRATE ORAL Take by mouth. No [...] as stated in HPI. Physical Examination: Vitals: 06/11/24 1011 BP: 104/69 Pulse: 67 General: The patient is awake, oriented, and is not in any distress. Head and Neck: Normocephalic. No periorbital edema. Eyes: non-icteric Respiratory: Symmetric air entry. Symmetric chest expansion.No respiratory distress. Skin: No maculopapular rash. Musculoskeletal: No peripheral edema in both left [...] 1- CKD III: His Cr level is 1.96. Stable kidney function. He has history of lymphoma with multiple relapses. He had multiple exposures to iv contrast over the past few years. He is s/p autologus HSCTin December 2027. 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 He is getting IVIG. Last spot urine protein to creatinine ratio did not show significant proteinuria. Volume status is good. 2- Secondary hyperparathyroidism: He is on calcitriol with good PTH level. I will see him in about 4 months for follow-up. Christopher Watkins MD Senior Attending Physician Director of Onco-Nephrology Program Division of Nephrology & Hypertension [facility] documented in this [facility] Work Phone: Family History No Family History [...] disease), cervical Muscle spasm Other chronic pain Chief Complaint C85.18 M62.[address] ANDEEM MORRISON FOLLOW UP FOLLOWING TIZANIDINE CHANGE Reason for Visit B-cell lymphoma DDD (degenerative disc disease), cervical Muscle spasm Other chronic pain B-cell lymphoma DDD (degenerative disc disease), cervical Muscle spasm Other chronic pain Additional Source Comments (unrecognized sect ion and content) No Status Records FoundNo Status Records FoundNo Status Records FoundNo Status Records FoundNo Status Records FoundNo Status Records FoundNo Status Records FoundNo Status Records FoundNo Status Records FoundNo Status Records Found INFORMATION SOURCE (unrecogn ized section and content) DATE CREATED AUTHOR 01/25/2020 [facility] DATE CREATED AUTHOR AUTHOR'S ORGANIZ ATION 08/22/2022 [facility] DATE CREATED AUTHOR AUTHOR'S ORGANIZ ATION 01/09/2023 [facility] DATE CREATED AUTHOR AUTHOR'S ORGANIZ ATION 02/22/2023 [facility] DATE CREATED AUTHOR AUTHOR'S ORGANIZ ATION 06/05/2023 [facility] DATE CREATED AUTHOR AUTHOR'S ORGANIZ ATION 06/05/2023 [facility] DATE CREATED AUTHOR AUTHOR'S ORGANIZ ATION 04/22/[address] [facility] DATE CREATED AUTHOR AUTHOR'S ORGANIZ ATION 05/01/2024 [facility] DATE CREATED AUTHOR AUTHOR'S ORGANIZ ATION 05/27/2024 [facility] EPIC DATE CREATED AUTHOR AUTHOR'S ORGANIZ ATION 07/29/2024 [facility] [employer] Architect Teams (unrecognized sec tion and content) Team [...] Victor Hugo Farrell MD Attending Provider Active Poultry Hatchery Supervisor Relationship Specialty Start Date End Date Nael Farias MD [address] [place] [address] PCP - General 06/18/18 [place] [address] [facility] [address] [place] [address] Consulting Physician Hematology and Oncology 08/13/23 Poultry Hatchery Supervisor Relationship Specialty Start Date End Date Nael Farias MD [address] [place] [address] PCP - General 06/18/18 Anirudh Sears MD [address] [place] [address] [address] [place], [place] [phone] Consulting Physician Hematology and Oncology 08/13/23 Poultry Hatchery Supervisor Relationship Specialty Start Date End Date Nael Farias MD [address] [place] [address] PCP - General 06/18/18 Anirudh Sears MD [address] [place] [address] [address] [place] [address] Consulting Physician Hematology and Oncology 08/13/23 Poultry Hatchery Supervisor Relationship Specialty Start Date End Date Nael Farias MD [address] [place] [address] PCP - General 06/18/18 Anirudh Sears MD [address] [place] [address] [address] [place], [place] [phone] Consulting Physician Hematology and Oncology 08/13/23 Christopher Watkins MD [address] [place] [address] [address] [place] [address] Consulting Physician Nephrology 12/08/23 Team Status: Inactive Member Role Status Dates Nael Farias MD 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 Provider Active Start: May 19, 2024 End: May 19, 2024 Elia Malik MD Attending Provider Active Sta rt: May 19, 2024 End: May 19, 2024 Nadeem Morrison DO Referring Provider Active Start: May 19, 2024 End: May 19, 2024 Poultry Hatchery Supervisor Relationship Specialty Start Date End Date Nael Farias MD [address] [place] [address] (Fax) PCP - Aranza MIN 09/01/21 Nael Farias MD [address] [place] [address] PCP - General Family Medicine 01/31/23 Nohelia Machado DO [address] [place] [address] Referring Physician Pulmonary Disease 10/09/23 [place] [address] [facility] [place] [address] Referring Physician Nephrology 10/09/23 [place] [address] [place] [address] Referring Physician Allergy and Immunology 10/09/23 Anirudh Sears Referring Physician Oncology 09/01/18 Poultry Hatchery Supervisor Relationship Specialty Start Date End Date Nael Farias MD [address] [place] [address] (Fax) PCP - Aranza MIN 09/01/21 Nael Farias MD [address] [place] [address] PCP - General Family Medicine 01/31/23 Nohelia Machado DO [address] [place] [address] Referring Physician Pulmonary Disease 10/09/23 Christopher Watkins MD [address] [place] [address] [place] [address] Referring Physician Nephrology 10/09/23 [place] [address] [place] [phone] Referring Physician Allergy and Immunology 10/09/23 Anirudh Sears Referring Physician Oncology 09/01/18 Poultry Hatchery Supervisor Relationship Specialty Start Date End Date Nael Farias MD [address] [place] [phone] PCP - General 06/18/18 Anirudh Sears MD [address] [place] [address] [address] [place] [address] Consulting Physician Hematology and Oncology 08/13/23 Christopher Watkins MD [address] [place] [address] [address] [place] [address] Consulting Physician Nephrology 12/08/23 Team Status: Inactive Member Role Status Dates Nael Farias MD 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 Provider Active Start: June 16, 2024 End: June 16, 2024 Elia Malik MD Attending Provider Active Sta rt: June 16, 2024 End: June 16, 2024 Poultry Hatchery Supervisor Relationship Specialty Start Date End Date Nael Farias MD [address] [id number] PCP - Aranza MIN 09/01/21 Nael Farias MD [address] [address] PCP - General Family Medicine 01/31/23 Nohelia Machado DO [address] [place] [address] Referring Physician Pulmonary Disease 10/09/23 Christopher Watkins MD [address] [place] [address] [place] [address] Referring Physician Nephrology 10/09/23 [place] [address] [place] [address] Referring Physician Allergy and Immunology 10/09/23 Anirudh Sears Referring Physician Oncology 09/01/18 Poultry Hatchery Supervisor Relationship Specialty Start Date End Date Nael Farias MD [address] [place] [address] PCP - General 06/18/18 Anirudh Sears MD [address] [place] [address] [address] [place] [address] Consulting Physician Hematology and Oncology 08/13/23 Christopher Watkins MD [address] [place] [address] [address] [place] [address] Consulting Physician Nephrology 12/08/23 Sandra Cole MD [address] [facility] [address] [place] [address] Referring Physician Allergy and Immunology 06/24/24 Goals (unrecognized section and content) Goals may [...] discus s new medication Reason Comments Immunodeficiency Reason Comments Asthma Pain Reason Comments Follow-up ACT 19 FOR RECORDS PERTAINING TO PATIENTS WHO ARE [...] BE BASED ON THE PRIMARY CLINICAL RECORDS. [facility]. provides no warranty or guarantee of the accuracy or completeness of information in this document.
[2024-08-12 12:23] LABS: Hematocrit 42.5 % (42.0-54.0); Hemoglobin 13.6 g/dL (14.0-18.0); Mean Corpuscular Hemoglobin 26.9 pg (25.9-34.0); Mean Platelet Volume 10.2 fL (9.5-13.5); Platelet Count 140 10^3/uL (150-450); Red Blood Count 5.06 10^6/uL (4.70-6.10); White Blood Count 4.9 10^3/uL (4.0-11.0)
[2024-08-12 12:47] LABS: Alanine Aminotransferase 38 U/L (16-63); Albumin Level 3.5 g/dL (3.4-5.0); Alkaline Phosphatase 89 U/L (46-116); Anion Gap 10.8; Aspartate Amino Transferase 26 U/L (15-37); BUN Creatinine Ratio 15.2; Bilirubin Total 0.5 mg/dL (0.2-1.0); Calcium 9.7 mg/dL (8.5-10.1); Carbon Dioxide 28.6 mmol/L (21.0-32.0); Chloride 108 mmol/L (98-107); Estimated GFR (African America 47 (>=60 mL/min/1.73m^2); Estimated GFR (Non-African Ame 39 (>=60 mL/min/1.73m^2); Globulin 3.6 g/dL; Glucose 75 mg/dL (74-106); Lactate Dehydrogenase 213 U/L (85-227); Potassium 4.4 mmol/L (3.5-5.1); Sodium 143 mmol/L (136-145); Total Protein 7.1 g/dL (6.4-8.2)
[2024-08-12 14:04] LABS: Eosinophils Absolute Manual 0.09 10^3/uL (0.00-0.70); Lymphocytes Absolute Manual 1.56 10^3/uL (1.20-3.80); Monocytes Absolute Manual 0.39 10^3/uL (0.30-0.80); Segmented Neut Absolute Manual 27.68 10^3/uL (1.4-6.5)
== END 2024-08-12 11:42 | disposition home or self-care (01) ==
LOC: LAB 11:45
PROVIDERS: PCP Family Medicine
DX: C83.398 Diffuse large B-cell lymphoma of other extranodal and solid organ sites (principal)
CPT/HCPCS: 36415; 80053; 83615; 85007; 85027

== ENCOUNTER 2024-08-27 07:32 | Outpatient (RCR) | payer MEDICARE, SELFPAY ==
[2024-08-27 09:16] VITALS: BP 112/73; PULSE 73; TEMP 36.1; O2SAT 95
[2024-08-27] MEDS: IMMUN GLOB IV (10:29)
[2024-08-27] MEDS: IGA OV50 IV (10:29)
[2024-08-27] MEDS: GLY IV (10:29)
== END 2024-08-27 13:29 | disposition home or self-care (01) ==
LOC: INF 07:32
PROVIDERS: PCP Family Medicine
DX: D83.9 Common variable immunodeficiency, unspecified (principal)
CPT/HCPCS: 96365; J1569

== ENCOUNTER 2024-09-22 07:30 | Outpatient (RCR) | payer MEDICARE, SELFPAY ==
[2024-09-22] MEDS: IGA OV50 IV (09:05)
[2024-09-22] MEDS: GLY IV (09:05)
[2024-09-22] MEDS: IMMUN GLOB IV (09:05)
[2024-09-22 09:08] VITALS: BP 120/75; PULSE 73; TEMP 36.1; O2SAT 97
--- NOTE | 2024-09-22 10:18 | PC.NURSE ---
tolerating infusion without any s/s of reaction. titrated up every 15 mins
[2024-09-22 11:58] LABS: Alanine Aminotransferase 42 U/L (16-63); Albumin Globulin Ratio 1.1; Albumin Level 3.4 g/dL (3.4-5.0); Alkaline Phosphatase 91 U/L (46-116); Anion Gap 12.9; Aspartate Amino Transferase 24 U/L (15-37); BUN Creatinine Ratio 14.4; Bilirubin Total 0.6 mg/dL (0.2-1.0); Carbon Dioxide 29.1 mmol/L (21.0-32.0); Chloride 103 mmol/L (98-107); Estimated GFR (African America 46 (>=60 mL/min/1.73m^2); Estimated GFR (Non-African Ame 38 (>=60 mL/min/1.73m^2); Globulin 3.1 g/dL; Glucose 153 mg/dL (74-106); Sodium 141 mmol/L (136-145); Total Protein 6.5 g/dL (6.4-8.2)
[2024-09-23 07:07] LABS: Immunoglobulin G, Qn 794 mg/dL (603-1613)
== END 2024-10-01 23:59 | disposition home or self-care (01) ==
LOC: INF 07:30
PROVIDERS: PCP Family Medicine
DX: D83.9 Common variable immunodeficiency, unspecified (principal); I12.9 Hypertensive chronic kidney disease with stage 1 through stage 4 chronic kidney disease, or unspecified chronic kidney disease; N18.32 Chronic kidney disease, stage 3b; N25.81 Secondary hyperparathyroidism of renal origin; D80.1 Nonfamilial hypogammaglobulinemia
CPT/HCPCS: 36592; 80053; 82784; 83970; 96365; J1569

== ENCOUNTER 2024-09-22 11:13 | Outpatient (OUT) | payer MEDICARE, SELFPAY ==
[2024-09-23 11:08] LABS: PTH, Intact 19 pg/mL (15-65)
== END 2024-09-22 11:14 | disposition home or self-care (01) ==
LOC: LAB 11:14
PROVIDERS: PCP Family Medicine; Referring Provider Internal Medicine; Visit Provider Internal Medicine
DX: I12.9 Hypertensive chronic kidney disease with stage 1 through stage 4 chronic kidney disease, or unspecified chronic kidney disease (principal); N18.32 Chronic kidney disease, stage 3b; N25.81 Secondary hyperparathyroidism of renal origin
CPT/HCPCS: 83970

== ENCOUNTER 2024-10-20 07:34 | Outpatient (RCR) | payer MEDICARE, SELFPAY ==
[2024-10-20 08:36] VITALS: BP 137/82; PULSE 74; TEMP 36.9; O2SAT 96
[2024-10-20] MEDS: IMMUN GLOB IV (09:04)
[2024-10-20] MEDS: GLY IV (09:04)
[2024-10-20] MEDS: IGA OV50 IV (09:04)
--- NOTE | 2024-10-20 09:12 | PC.NURSE ---
Here for IV gammunex. Alert oriented offers no complaints.
== END 2024-10-21 08:32 | disposition home or self-care (01) ==
LOC: INF 07:34
PROVIDERS: PCP Family Medicine
DX: D80.1 Nonfamilial hypogammaglobulinemia (principal); D83.9 Common variable immunodeficiency, unspecified
CPT/HCPCS: 96365; 96366; J1569

== ENCOUNTER 2024-11-17 07:35 | Outpatient (RCR) | payer MEDICARE, SELFPAY ==
[2024-11-17 08:43] VITALS: BP 152/84; PULSE 67; TEMP 36.1; O2SAT 95
[2024-11-17] MEDS: IGA OV50 IV (08:57)
[2024-11-17] MEDS: GLY IV (08:57)
[2024-11-17] MEDS: [UNRECOGNIZED DRUG - OTHER] IV (08:57)
[2024-11-17] MEDS: IMMUN GLOB IV (08:57)
[2024-11-17 10:04] VITALS: BP 130/80
== END 2024-11-22 11:39 | disposition home or self-care (01) ==
LOC: INF 07:35
PROVIDERS: PCP Family Medicine
DX: D83.9 Common variable immunodeficiency, unspecified (principal); D80.1 Nonfamilial hypogammaglobulinemia
CPT/HCPCS: 96365; 96366; J1569

== ENCOUNTER 2024-12-15 07:35 | Outpatient (RCR) | payer MEDICARE, SELFPAY ==
[2024-12-15 08:45] VITALS: BP 125/81; PULSE 74; TEMP 36.5; O2SAT 95
[2024-12-15] MEDS: 0.9 % SODIUM CHLORIDE 250 ML 10 ML IV (09:00)
[2024-12-15] MEDS: GLY IV (09:21)
[2024-12-15] MEDS: IGA OV50 IV (09:21)
[2024-12-15] MEDS: IMMUN GLOB IV (09:21)
--- NOTE | 2024-12-15 10:24 | PC.NURSE ---
Tolerating infusion without c/o. Denies needs.
== END 2024-12-15 13:47 | disposition home or self-care (01) ==
LOC: INF 07:35
PROVIDERS: PCP Family Medicine
DX: D83.9 Common variable immunodeficiency, unspecified (principal); D80.1 Nonfamilial hypogammaglobulinemia; I12.9 Hypertensive chronic kidney disease with stage 1 through stage 4 chronic kidney disease, or unspecified chronic kidney disease; N18.32 Chronic kidney disease, stage 3b; N25.81 Secondary hyperparathyroidism of renal origin; C83.30 Diffuse large B-cell lymphoma, unspecified site
CPT/HCPCS: 36415; 80053; 82570; 82784; 83970; 84156; 96365; 96366; J1569

== ENCOUNTER 2024-12-15 09:00 | Outpatient (RCR) | payer MEDICARE, SELFPAY ==
[2024-12-15 09:39] LABS: Alanine Aminotransferase 47 U/L (16-63); Albumin Globulin Ratio 1.1; Albumin Level 3.5 g/dL (3.4-5.0); Alkaline Phosphatase 97 U/L (46-116); Aspartate Amino Transferase 28 U/L (15-37); BUN Creatinine Ratio 16.1; Bilirubin Total 0.5 mg/dL (0.2-1.0); Calcium 9.3 mg/dL (8.5-10.1); Chloride 105 mmol/L (98-107); Estimated GFR (African America 45 (>=60 mL/min/1.73m^2); Estimated GFR (Non-African Ame 37 (>=60 mL/min/1.73m^2); Globulin 3.1 g/dL; Glucose 125 mg/dL (74-106); Sodium 143 mmol/L (136-145); Total Protein 6.6 g/dL (6.4-8.2)
[2024-12-16 06:07] LABS: Immunoglobulin G, Qn 843 mg/dL (603-1613)
== END 2024-12-15 13:48 | disposition home or self-care (01) ==
LOC: INF 09:00
PROVIDERS: PCP Family Medicine; Visit Provider Allergy & Immunology
DX: D83.9 Common variable immunodeficiency, unspecified (principal)
CPT/HCPCS: 80053; 82784

== ENCOUNTER 2024-12-15 09:00 | Outpatient (RCR) | payer MEDICARE, SELFPAY ==
[2024-12-15 12:07] LABS: Protein Creatinine Ratio Urine 0.21; Total Protein Urine Random 34.4 mg/dL (<=11.9)
[2024-12-16 11:11] LABS: PTH, Intact 15 pg/mL (15-65)
== END 2024-12-15 13:48 | disposition home or self-care (01) ==
LOC: INF 09:00
PROVIDERS: PCP Family Medicine; Visit Provider Internal Medicine
DX: I12.9 Hypertensive chronic kidney disease with stage 1 through stage 4 chronic kidney disease, or unspecified chronic kidney disease (principal); N18.32 Chronic kidney disease, stage 3b; N25.81 Secondary hyperparathyroidism of renal origin; C83.30 Diffuse large B-cell lymphoma, unspecified site
CPT/HCPCS: 82570; 83970; 84156

== ENCOUNTER 2025-01-12 07:34 | Outpatient (RCR) | payer MEDICARE, SELFPAY ==
[2025-01-12 08:48] VITALS: BP 110/72; PULSE 90; TEMP 36.3; O2SAT 93
[2025-01-12] MEDS: 0.9 % SODIUM CHLORIDE 250 ML 10 ML IV (09:06)
[2025-01-12] MEDS: GLY IV (09:20)
[2025-01-12] MEDS: IGA OV50 IV (09:20)
[2025-01-12] MEDS: IMMUN GLOB IV (09:20)
== END 2025-01-13 07:45 | disposition home or self-care (01) ==
LOC: INF 07:34
PROVIDERS: PCP Family Medicine
DX: D80.1 Nonfamilial hypogammaglobulinemia (principal); D83.9 Common variable immunodeficiency, unspecified
CPT/HCPCS: 96365; 96366; J1569

== ENCOUNTER 2025-01-31 07:49 | Outpatient (OUT) | payer MEDICARE, SELFPAY ==
--- OUTSIDE RECORDS SUMMARY | 2025-01-31 07:53 | XMS_ITS | Encounter Summary ---
Author Organization [facility] Address [address] [place] [address] Phone Care Team Providers Care Pulmonary Physical Therapist Name Role Phone Nael Mendez MD 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 Provider Miranda Sears MD Unavailable Christopher Solomon MD Unavailable [phone] Sandra Cole MD Unavailable Encounter Details Date Type Department Care Team (Late st Contact Info) Description 04/12/[address] [facility] [address] [facility] [address] [place] [address] Sandra Cole MD [address] [facility], [address] [place], [place] [id number] Social History Tobacco Use Types Packs/Day Years Used Date Smoking Tobacco: Never Passive Smoke Exposure: Past Smokeless Tobacco: Never Alcohol Use Standard Drinks/Week Comments Never 0 (1 standard drink = 0.6 oz pur e alcohol) Sex and Gender Information Value Date Recorded Sex Assigned at Not on file Legal Sex Male 12:29 PM EST Gender Identity Not on file Sexual Orientation Not on file documented as of this encounter Plan of Treatment Upcoming Encounters Date Type Department Care Team (Late st Contact Info) Description 02/10/2025 9:00 AM EDT Office Visit [facility] [address] [facility] [address] [place] [address] Miranda Sears MD [address] [place] [address] [address] [place] [address] 02/17/2025 11:30 AM EDT Office Visit [facility] [address] [place] [address] [address] [place] [address] Christopher Solomon MD [address] [place] [address] [address] [place] [address] 07/11/2025 11:15 AM EST Office Visit [facility] [address] [place] [address] Sandra Cole MD [address] [facility] [address] [place] [address] 08/15/2025 10:40 AM EST Office Visit [facility] [address] [place] [address] [address] [place] [address] Miranda Sears MD [address] [place] [address] [address] [place] [address] documented as of this encounter Visit Diagnoses Not on filedocumented in this encounter Additional Health Concerns Assessment Noted Time A fall risk assessment has been complete d for the patient 12/05/2023 9:49 AM EDT documented as of this encounter Care Teams Pulmonary Physical Therapist Relationship Specialty Start Date End Date Nael Mendez MD [address] [place] [address] PCP - General 06/18/18 Miranda Sears MD [address] [place] [address] [address] [place] [address] Consulting Physician Hematology and Oncology 08/13/23 Christopher Solomon MD [address] [place] [address] [address] [place] [address] Consulting Physician Nephrology 12/08/23 Sandra Cole MD [address] [facility], [address] [place] [address] Referring Physician Allergy and Immunology 06/24/24 documented as of this encounter
--- OUTSIDE RECORDS SUMMARY | 2025-01-31 07:53 | XMS_ITS | Encounter Summary ---
Author Organization [facility] Address [address] [place] [address] Phone Care Team Providers Care Gas Welding Equipment Mechanic Name Role Phone Nael Mendez MD 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 Provider Miranda Sears MD Unavailable Christopher Solomon MD Unavailable [phone] Sandra Cole MD Unavailable Encounter Details Date Type Department Care Team (Late st Contact Info) Description 08/22/2023 Scanned Document [facility] [address] [facility] [address] [place] [address] Sandra Cole MD [address] [facility], [address] [place], [place] [phone] Social History Tobacco Use Types Packs/Day Years [...] on file Sexual Orientation Not on file COVID-19 Exposure Response Date Recorded In the last 10 days, have yo u been in contact with someone who was confirmed or suspected to have Coronavirus/COVID-19? No / Unsure 08/13/2023 10:36 AM EST documented as of this encounter Plan of Treatment Upcoming Encounters Date Type Department Care Team (Late st Contact Info) Description 02/10/2025 9:00 AM EDT Office Visit [facility] [address] [place] [address] [address] [place] [phone] Miranda Sears MD [address] [place] [address] [address] [place] [address] 02/17/2025 11:30 AM EDT Office Visit [facility] [address] [place] [address] [address] [place] [address] Christopher Solomon MD [address] [place] [address] Dr [address] [place] [address] 07/11/2025 11:15 AM EST Office Visit [facility] [address] [facility] [address] [place] [address] Sandra Cole MD [address] [facility], [facility] [address] [place] [address] 08/15/2025 10:40 AM EST Office Visit [facility] [address] [place] [address] Dr [address] [place] [address] Miranda Sears MD [address] [place] [address] [address] [place] [address] documented as of this encounter Visit Diagnoses Not on filedocumented in this encounter Care Teams Gas Welding Equipment Mechanic Relationship Specialty Start Date End Date Nael Mendez MD [address] [place] [address] PCP - General 06/18/18 Miranda Sears MD [address] [place] [address] [address] [place] [address] Consulting Physician Hematology and Oncology 08/13/23 [place] [address] [facility] [address] [place] [address] Consulting Physician Nephrology 12/08/23 Sandra Cole MD [address] [facility], [facility] [address] [place], [place] [phone] Referring Physician Allergy and Immunology 06/24/24 documented as of this encounter
--- OUTSIDE RECORDS SUMMARY | 2025-01-31 07:53 | XMS_ITS | Encounter Summary ---
Author Organization [facility] Address [address] [place] [address] Phone Care Team Providers Care Structural Biologist Name Role Phone Nael Mendez MD 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 Provider Miranda Sears MD Unavailable Christopher Solomon MD Unavailable [phone] Sandra Cole MD Unavailable Encounter Details Date Type Department Care Team (Late st Contact Info) Description 07/18/2023 Scanned Document [facility] [address] [address] Conversion, Onbase Social History Tobacco Use Types Packs/Day Years Used Date Smoking Tobacco: Never Assessed Sex and Gender Information Value Date Recorded Sex Assigned at Not on file Legal Sex Male 12:29 PM EST Gender Identity Not on file Sexual Orientation Not on file documented as of this encounter Plan of Treatment Upcoming Encounters Date Type Department Care Team (Late st Contact Info) Description 02/10/2025 9:00 AM EDT Office Visit [facility] [address] [facility] [address] [place] [phone] Miranda Sears MD [address] [place] [address] [address] [place] [id number] 02/17/2025 11:30 AM EDT Office Visit [facility] [address] [facility] [address] [place] [phone] Christopher Solomon MD [address] [place] [address] [address] [place] [address] 07/11/2025 11:15 AM EST Office Visit [facility] [address] [place] [address] Sandra Cole MD [address] [facility], [facility] [address] [place] [address] 08/15/2025 10:40 AM EST Office Visit [facility] [address] [place] [address] [address] [place] [address] Miranda Sears MD [address] [place] [address] [address] [place] [address] documented as of this encounter Procedures Procedure Name Priority Date/Time Associated Diagnosis Comments OUTSIDE IMAGING SCAN 07/18/2023 documented in this encounter Results * OUTSIDE IMAGING SCAN (07/18/2023) Anatomical Region Laterality Modality Other Narrative 07/18/2023 Ordered by an unspecified provider. us Onbase Conversion OUTSIDE SCAN Final Result documented in this encounter Visit Diagnoses Not on filedocumented in this encounter Care Teams Structural Biologist Relationship Specialty Start Date End Date Nael Mendez MD [address] [place] [address] PCP - General 06/18/18 Miranda Sears MD [address] [place] [address] [address] [place] [address] Consulting Physician Hematology and Oncology 08/13/23 Christopher Solomon MD [address] [place] [address] [address] [place] [address] Consulting Physician Nephrology 12/08/23 Sandra Cole MD [address] [facility], [place] [address] Referring Physician Allergy and Immunology 06/24/24 documented as of this encounter
--- OUTSIDE RECORDS SUMMARY | 2025-01-31 07:53 | XMS_ITS | Encounter Summary ---
Author Organization [facility] Address [address] [place] [address] Phone Care Team Providers Care Clerk Of Scales Name Role Phone Nael Mendez MD 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 Provider [phone] Miranda Sears MD Unavailable Christopher Solomon MD Unavailable [phone] Sandra Cole MD Unavailable Encounter Details Date Type Department Care Team (Late st Contact Info) Description 11/21/2023 Scanned Document [facility] [address] [place] [address] Sandra Cole MD [address] [facility], Minor [address] [place], [place] [id number] Social History Tobacco Use Types Packs/Day Years [...] Description 02/10/2025 9:00 AM EDT Office Visit [facility] [address] [facility] [address] [place] [address] Miranda Sears MD [address] [place] [address] Dr [address] 1 [place] [address] 02/17/2025 11:30 AM EDT Office Visit [facility] [address] [place] [address] Dr [address] 3 [place] [address] Christopher Solomon MD [address] [place] [address] Dr [address] [place] [address] 07/11/2025 11:15 AM EST Office Visit [facility] [address] [place] [address] Sandra Cole MD [address] [facility], [facility] [address] [place] [address] 08/15/2025 10:40 AM EST Office Visit [facility] [address] [place] [address] Dr [address] [place] [address] Miranda Sears MD [address] [place] [address] Dr [address] 1 [place] [address] documented as of this encounter Visit Diagnoses Not on filedocumented in this encounter Care Teams Clerk Of Scales Relationship Specialty Start Date End Date Nael Mendez MD [address] [place] [address] PCP - General 06/18/18 Miranda Sears MD [address] [place] [address] Dr [address]ax[address] 1 [place] [address] Consulting Physician Hematology and Oncology 08/13/23 Christopher Solomon MD [address] [place] [address] Dr [address] 3 [place] [address] Consulting Physician Nephrology 12/08/23 Sandra Cole MD [address] [facility], Minor [address] [place] [address] Referring Physician Allergy and Immunology 06/24/24 documented as of this encounter
--- OUTSIDE RECORDS SUMMARY | 2025-01-31 07:53 | XMS_ITS | Encounter Summary ---
Author Organization [facility] Address [address] [place] [address] Phone Care Team Providers Care Food Production Manager Name Role Phone Nael Mendez MD 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 Provider [phone] Miranda Sears MD Unavailable Christopher Solomon MD Unavailable [phone] Sandra Cole MD Unavailable [phone] Encounter Details Date Type Department Care Team (Late st Contact Info) Description 09/27/2024 Scanned Document [facility] [address] [place] [address] Sandra Cole MD [address] [facility], Minor [address] [place], [place] [id number] Social History Tobacco Use Types Packs/Day Years [...] Description 02/10/2025 9:00 AM EDT Office Visit [facility] [address] [facility] [address] [place] [address] Miranda Sears MD [address] [place] [address] Dr Gaxiola 1 [place] [address] 02/17/2025 11:30 AM EDT Office Visit [facility] [address] [place] [address] Dr Gax[address]ola 3 [place] [address] Christopher Solomon MD [address] [place] [address] Dr [address] 3 [place] [address] 07/11/2025 11:15 AM EST Office Visit [facility] [address] [place] [address] Sandra Cole MD [address] [facility], [facility] [address] [place] [address] 08/15/2025 10:40 AM EST Office Visit [facility] [address] [place] [address] Dr Gax[address]ola 1 [place] [address] Miranda Sears MD [address] [place] [address] Dr Gax[address] 1 [place] [address] documented as of this encounter Visit Diagnoses Not on filedocumented in this encounter Additional Health Concerns Assessment Noted Time A fall risk assessment has been complete d for the patient 06/11/2024 10:13 AM EDT documented as of this encounter Care Teams Food Production Manager Relationship Specialty Start Date End Date Nael Mendez MD [address] [place] [address] PCP - General 06/18/18 Miranda Sears MD [address] [place] [address] Dr Gax[address] 1 [place] [address] Consulting Physician Hematology and Oncology 08/13/23 Christopher Solomon MD [address] [place] [address] Dr [address] [place] [address] Consulting Physician Nephrology 12/08/23 Sandra Cole MD [address] [facility], Minor [address] [place] [address] Referring Physician Allergy and Immunology 06/24/24 documented as of this encounter
--- OUTSIDE RECORDS SUMMARY | 2025-01-31 07:53 | XMS_ITS | Encounter Summary ---
Author Organization [facility] Address [address] [place] [address] Phone Care Team Providers Care Mold Filler Name Role Phone Nael Mendez MD 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 Provider Miranda Sears MD Unavailable Christopher Solomon MD Unavailable [phone] Sandra Cole MD Unavailable [phone] Encounter Details Date Type Department Care Team (Late st Contact Info) Description 09/13/2024 Scanned Document [facility] [address] [facility] [address] [place] [address] Sandra Cole MD [address] [facility], Minor [address] [place], [place] [phone] Social History Tobacco Use Types Packs/Day Years [...] suspected to have Coronavirus/COVID-19? No / Unsure 08/16/2024 10:14 AM EST documented as of this encounter Plan of Treatment Upcoming Encounters Date Type Department Care Team (Late st Contact Info) Description 02/10/2025 9:00 AM EDT Office Visit [facility] [address] [place] [address] Dr Gaxiola 1 [place] [address] Miranda Sears MD [address] [place] [address] Dr Minor 1 [place] [address] 02/17/2025 11:30 AM EDT Office Visit [facility] [address] [place] [address] Dr [address] 3 [place] [address] Christopher Solomon MD [address] [place] [address] Dr [address] 3 [place] [address] 07/11/2025 11:15 AM EST Office Visit [facility] [address] [facility] [address] [place] [address] Sandra Cole MD [address] [facility], [facility] [address] [place] [address] 08/15/2025 10:40 AM EST Office Visit [facility] [address] [place] [address] Dr [address] 1 [place] [address] Miranda Sears MD [address] [place] [address] Dr [address] 1 [place] [address] documented as of this encounter Visit Diagnoses Not on filedocumented in this encounter Additional Health Concerns Assessment Noted Time A fall risk assessment has been complete d for the patient 06/11/2024 10:13 AM EDT documented as of this encounter Care Teams Mold Filler Relationship Specialty Start Date End Date Nael Mendez MD [address] [place] [address] PCP - General 06/18/18 Miranda Sears MD [address] [place] [address] Dr [address] 1 [place] [address] Consulting Physician Hematology and Oncology 08/13/23 [place] [address] [place] [address] Consulting Physician Nephrology 12/08/23 Sandra Cole MD [address] [facility], Minor [address] [place] [address] Referring Physician Allergy and Immunology 06/24/24 documented as of this encounter
--- OUTSIDE RECORDS SUMMARY | 2025-01-31 07:53 | XMS_ITS | Encounter Summary ---
Author Organization [facility] Address [address] [place] [address] Phone Care Team Providers Care Summer Analyst Name Role Phone Nael Mendez MD 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 Provider Miranda Sears MD Unavailable Christopher Solomon MD Unavailable [phone] Sandra Cole MD Unavailable Encounter Details Date Type Department Care Team (Late st Contact Info) Description 08/22/2023 Scanned Document [facility] [address] [facility] [address] [place] [address] Sandra Cole MD [address] [facility], Minor [address] [place], [place] [id number] Social History Tobacco Use Types Packs/Day Years [...] Description 02/10/2025 9:00 AM EDT Office Visit [facility] [address] [place] [address] Dr Gax[address]ola [address] [place] [address] Miranda Sears MD [address] [place] [address] Dr Gaxiola 1 [place] [address] 02/17/2025 11:30 AM EDT Office Visit [facility] [address] [place] [address] Dr Gaxi[address] 3 [place] [address] Christopher Solomon MD [address] [place] [address] Dr Gaxi[address] 3 [place] [address] 07/11/2025 11:15 AM EST Office Visit [facility] [address] [facility] [address] [place] [address] Sandra Cole MD [address] [facility], [facility] [address] [place] [address] 08/15/2025 10:40 AM EST Office Visit [facility] [address] [place] [address] Dr Gax[address]ola 1 [place] [address] Miarnda Sears MD [address] [place] [address] Dr Gaxiola 1 [place] [address] documented as of this encounter Visit Diagnoses Not on filedocumented in this encounter Care Teams Summer Analyst Relationship Specialty Start Date End Date Nael Mendez MD [address] [place] [address] PCP - General 06/18/18 Miranda Sears MD [address] [place] [address] Dr Gaxiola 1 [place] [address] Consulting Physician Hematology and Oncology 08/13/23 [place] [address] [facility] [address] Minor [address] [place] [address] Consulting Physician Nephrology 12/08/23 Sandra Cole MD [address] [facility], [facility] [address] [place], [place] [address] Referring Physician Allergy and Immunology 06/24/24 documented as of this encounter
--- OUTSIDE RECORDS SUMMARY | 2025-01-31 07:53 | XMS_ITS | Encounter Summary ---
Author Organization [facility] Address [address] [place] [address] Phone Care Team Providers Care Bracelet And Brooch Maker Name Role Phone Nael Mendez MD 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 Provider Miranda Sears MD Unavailable Christopher Solomon MD Unavailable [phone] Sandra Cole MD Unavailable [phone] Encounter Details Date Type Department Care Team (Late st Contact Info) Description 09/29/2023 Scanned Document [facility] [address] [place] [address] Sandra Cole MD [address] [facility], Minor [address] [place], [place] [id number] Social History Tobacco Use Types Packs/Day Years [...] 02/10/2025 9:00 AM EDT Office Visit [facility] [address] [facility] [address] [place] [address] Miranda Sears MD [address] [place] [address] Dr Gaxiola 1 [place] [address] 02/17/2025 11:30 AM EDT Office Visit [facility] [address] [place] [address] Dr G[address]ola 3 [place] [address] Christopher Solomon MD [address] [place] [address] Dr Gax[address]ola 3 [place] [address] 07/11/2025 11:15 AM EST Office Visit [facility] [address] [place] [address] Sandra Cole MD [address] [facility], [facility] [address] [place] [address] 08/15/2025 10:40 AM EST Office Visit [facility] [address] [place] [address] Dr Gaxiola 1 [place] [address] Miranda Sears MD [address] [place] [address] Dr G[address]ola 1 [place] [address] documented as of this encounter Visit Diagnoses Not on filedocumented in this encounter Care Teams Bracelet And Brooch Maker Relationship Specialty Start Date End Date Nael Mendez MD [address] [place] [address] PCP - General 06/18/18 Miranda Sears MD [address] [place] [address] Dr G[address] 1 [place] [address] Consulting Physician Hematology and Oncology 08/13/23 Christopher Solomon MD [address] [place] [address] Dr [address] 3 [place] [address] Consulting Physician Nephrology 12/08/23 Sandra Cole MD [address] [facility], Minor [address] [place] [address] Referring Physician Allergy and Immunology 06/24/24 documented as of this encounter
--- OUTSIDE RECORDS SUMMARY | 2025-01-31 07:53 | XMS_ITS | Encounter Summary ---
Author Organization [facility] Address [address] [place] [address] Phone Care Team Providers Care Equity Manager Name Role Phone Nael Mendez MD 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 Provider Miranda Sears MD Unavailable Christopher Solomon MD Unavailable [phone] Sandra Cole MD Unavailable [phone] Encounter Details Date Type Department Care Team (Late st Contact Info) Description 09/26/2023 Scanned Document [facility] [address] [place] [address] Sandra Cole MD [address] [facility], Minor [address] [place], [place] [phone] Social History Tobacco Use Types Packs/Day Years [...] Description 02/10/2025 9:00 AM EDT Office Visit [facility] [address] [facility] [address] [place] [address] Miranda Sears MD [address] [place] [address] Dr Gaxiola 1 [place] [address] 02/17/2025 11:30 AM EDT Office Visit [facility] [address] [place] [address] Dr Gaxiola 3 [place] [address] Christopher Solomon MD [address] [place] [address] Dr Gaxiola 3 [place] [address] 07/11/2025 11:15 AM EST Office Visit [facility] [address] [place] [address] Sandra Cole MD [address] [facility], [facility] [address] [place] [address] 08/15/2025 10:40 AM EST Office Visit [facility] [address] [place] [address] Dr Gaxiola 1 [place] [address] Miranda Sears MD [address] [place] [address] Dr Gaxiola 1 [place] [address] documented as of this encounter Visit Diagnoses Not on filedocumented in this encounter Care Teams Equity Manager Relationship Specialty Start Date End Date Nael Mendez MD [address] [place] [address] PCP - General 06/18/18 Miranda Sears MD [address] [place] [address] Dr Gaxiola 1 [place] [address] Consulting Physician Hematology and Oncology 08/13/23 Christopher Solomon MD [address] [place] [address] Dr [address]ola 3 [place] [address] Consulting Physician Nephrology 12/08/23 Sandra Cole MD [address] [facility], Minor [address] [place] [address] Referring Physician Allergy and Immunology 06/24/24 documented as of this encounter
--- OUTSIDE RECORDS SUMMARY | 2025-01-31 07:53 | XMS_ITS | Encounter Summary ---
Author Organization [facility] Address [address] [place] [address] Phone Care Team Providers Care Medical Device Sales Name Role Phone Nael Mendez MD 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 Provider Miranda Sears MD Unavailable Christopher Solomon MD Unavailable [phone] Sandra Cole MD Unavailable [phone] Encounter Details Date Type Department Care Team (Late st Contact Info) Description 09/07/2024 Scanned Document [facility] [address] [facility] [address] [place] [address] Sandra Cole MD [address] [facility], Minor [address] [place], [place] [address] Social History Tobacco Use Types Packs/Day Years [...] Description 02/10/2025 9:00 AM EDT Office Visit [facility] [address] [place] [address] Dr Gaxiola 1 [place] [address] Miranda Sears MD [address] [place] [address] Dr Minor [address] [place] [address] 02/17/2025 11:30 AM EDT Office Visit [facility] [address] [place] [address] Dr Gaxiola 3 [place] [address] Christopher Solomon MD [address] [place] [address] Dr G[address]ola 3 [place] [address] 07/11/2025 11:15 AM EST Office Visit [facility] [address] [facility] [address] [place] [address] Sandra Cole MD [address] [facility], [facility] [address] [place] [address] 08/15/2025 10:40 AM EST Office Visit [facility] [address] [place] [address] Dr Gaxiola 1 [place] [address] Miranda Sears MD [address] [place] [address] Dr G[address]ola 1 [place] [address] documented as of this encounter Visit Diagnoses Not on filedocumented in this encounter Additional Health Concerns Assessment Noted Time A fall risk assessment has been complete d for the patient 06/11/2024 10:13 AM EDT documented as of this encounter Care Teams Medical Device Sales Relationship Specialty Start Date End Date Nael Mendez MD [address] [place] [address] PCP - General 06/18/18 Miranda Sears MD [address] [place] [address] Dr G[address] [place] [address] Consulting Physician Hematology and Oncology 08/13/23 [place] [address] [facility] [address] [place] [address] Consulting Physician Nephrology 12/08/23 Sandra Cole MD [address] [facility], Minor [address] [place] [address] Referring Physician Allergy and Immunology 06/24/24 documented as of this encounter
--- OUTSIDE RECORDS SUMMARY | 2025-01-31 07:53 | XMS_ITS | Encounter Summary ---
Author Organization [facility] Address [address] [place] [address] Phone Care Team Providers Care Welding Machine Operator Thermit Name Role Phone Nael Mendez MD 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 Provider Miranda Sears MD Unavailable Christopher Solomon MD Unavailable [phone] Sandra Cole MD Unavailable Encounter Details Date Type Department Care Team (Late st Contact Info) Description 06/02/2024 Scanned Document [facility] [address] [place] [address] Scanning, Generic Provider Social History Tobacco Use Types Packs/Day Years [...] Description 02/10/2025 9:00 AM EDT Office Visit [facility] [address] [facility] [address] [place] [address] [place] [address] [facility] [address] Gax[address] 1 [place] [address] 02/17/2025 11:30 AM EDT Office Visit [facility] [address] [place] [address] Dr Gaxiola 3 [place] [address] Christopher Solomon MD [address] [place] [address] Dr Gaxiola 3 [place] [address] 07/11/2025 11:15 AM EST Office Visit [facility] [address] [place] [address] Sandra Cole MD [address] [facility], Minor [address] [place] [address] 08/15/2025 10:40 AM EST Office Visit [facility] [address] [place] [address] Dr Gaxiola 1 [place] [address] Miranda Sears MD [address] [place] [address] Dr G[address]ola 1 [place] [address] documented as of this encounter Visit Diagnoses Not on filedocumented in this encounter Additional Health Concerns Assessment Noted Time A fall risk assessment has been complete d for the patient 12/05/2023 9:49 AM EDT documented as of this encounter Care Teams Welding Machine Operator Thermit Relationship Specialty Start Date End Date Nael Mendez MD [address] [phone] PCP - General 06/18/18 Miranda Sears MD [address] [place] [address] Dr Gax[address]ola 1 [place] [address] Consulting Physician Hematology and Oncology 08/13/23 Christopher Solomon MD [address] [place] [address] Dr [address] 3 [place] [address] Consulting Physician Nephrology 12/08/23 Sandra Cole MD [address] [facility], Minor [address] [place], [place] [address] Referring Physician Allergy and Immunology 06/24/24 documented as of this encounter
--- OUTSIDE RECORDS SUMMARY | 2025-01-31 07:53 | XMS_ITS | Encounter Summary ---
Author Organization [facility] Address [address] [place] [address] Phone Care Team Providers Care Double Needle Operator Name Role Phone Nael Mendez MD 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 Provider Miranda Sears MD Unavailable Christopher Solomon MD Unavailable [phone] Sandra Cole MD Unavailable Encounter Details Date Type Department Care Team (Late st Contact Info) Description 09/12/2023 Scanned Document [facility] [address] [facility] [address] [place] [address] Sandra Cole MD [address] [facility], Minor [address] [place], [place] [address] Social History Tobacco Use Types Packs/Day Years [...] Description 02/10/2025 9:00 AM EDT Office Visit [facility] [address] [place] [address] Dr Gax[address]ola [address] [place] [address] Miranda Sears MD [address] [place] [address] Dr Gax[address]ola 1 [place] [address] 02/17/2025 11:30 AM EDT Office Visit [facility] [address] [place] [address] Dr Gax[address] 3 [place] [address] Christopher Solomon MD [address] [place] [address] Dr Gax[address]ola 3 [place] [address] 07/11/2025 11:15 AM EST Office Visit [facility] [address] [facility] [address] [place] [address] Sandra Cole MD [address] [facility], [facility] [address] [place] [address] 08/15/2025 10:40 AM EST Office Visit [facility] [address] [place] [address] Dr Gaxiola 1 [place] [address] Miranda Sears MD [address] [place] [address] Dr [address]ola 1 [place] [address] documented as of this encounter Visit Diagnoses Not on filedocumented in this encounter Care Teams Double Needle Operator Relationship Specialty Start Date End Date Nael Mendez MD [address] [place] [address] PCP - General 06/18/18 Miranda Sears MD [address] [place] [address] Dr Gax[address]ola 1 [place] [address] Consulting Physician Hematology and Oncology 08/13/23 [place] [address] [facility] [address] Minor [address] [place] [address] Consulting Physician Nephrology 12/08/23 Sandra Cole MD [address] [facility], [facility] [address] [place], [place] [address] Referring Physician Allergy and Immunology 06/24/24 documented as of this encounter
--- OUTSIDE RECORDS SUMMARY | 2025-01-31 07:53 | XMS_ITS ---
Author Organization [facility] Address [address] [place] [address] Care Team Providers Care Disaster Director Name Role Phone Nael Mendez MD Unavailable [phone] Nael Mendez MD 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 Provider [phone] Nohelia Machado DO Unavailable Unavailable Christopher Solomon MD Unavailable Unavailable Sandra Cole MD Unavailable [phone] Active Problems Problem Noted Date Diagnosed Date BMI 37.0-37.9, adult 05/06/2024 Chronic pain syndrome 02/17/2024 Morbid obesity 10/23/2023 Overview (10/23/2023): BMI >= to 35 with multiple co-morbid conditions. 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 02/05/2023 Esophageal reflux 02/05/2023 Hypogammaglobulinemia 02/05/2023 Immunodeficiency due to external causes 02/06/20 Migraine without aura, intractable, with status migrainosus 02/05/2023 Mixed hyperlipidemia 02/05/2023 Non-seasonal allergic rhinitis 02/05/2023 Osteoarthrosis 02/05/2023 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 Past Treatment and Therapy Plans No past plan information found. Lifetime Dose Tracking * Chemical Lifetime Dose Automatic Entry Manual Entr y Radiation 117.44 mSv 117.44 mSv 0 mSv Resolved Problems Problem Noted Date Diagnosed Date Resolved Date Other obesity due to excess calories 02/05/2023 10/23/2023
--- OUTSIDE RECORDS SUMMARY | 2025-01-31 07:53 | XMS_ITS | Encounter Summary ---
Author Organization [facility] Address [address] [place] [address] Phone Care Team Providers Care Ranch Hand Livestock Name Role Phone Nael Mendez MD 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 Provider [phone] Miranda Sears MD Unavailable Christopher Solomon MD Unavailable [phone] Sandra Cole MD Unavailable Encounter Details Date Type Department Care Team (Late st Contact Info) Description 10/13/2023 Scanned Document [facility] [address] [place] [address] Sandra Cole MD [address] [facility], [address] [place], [place] [id number] Social History Tobacco Use Types Packs/Day Years [...] Description 02/10/2025 9:00 AM EDT Office Visit [facility] [address] [facility] [address] [place] [address] Miranda Sears MD [address] [place] [address] Dr [address] [place] [address] 02/17/2025 11:30 AM EDT Office Visit [facility] [address] [place] [address] Dr [address] [place] [address] Christopher Solomon MD [address] [place] [address] Dr [address] [place] [address] 07/11/2025 11:15 AM EST Office Visit [facility] [address] [place] [address] Sandra Cole MD [address] [facility], [facility] [address] [place] [address] 08/15/2025 10:40 AM EST Office Visit [facility] [address] [place] [address] Dr [address] [place] [address] Miranda Sears MD [address] [place] [address] Dr [address] [place] [address] documented as of this encounter Visit Diagnoses Not on filedocumented in this encounter Care Teams Ranch Hand Livestock Relationship Specialty Start Date End Date Nael Mendez MD [address] [place] [address] PCP - General 06/18/18 Miranda Sears MD [address] [place] [address] Dr [address] [place] [address] Consulting Physician Hematology and Oncology 08/13/23 Christopher Solomon MD [address] [place] [address] Dr [address] [place] [address] Consulting Physician Nephrology 12/08/23 Sandra Cole MD [address] [facility], [address] [place] [address] Referring Physician Allergy and Immunology 06/24/24 documented as of this encounter
--- OUTSIDE RECORDS SUMMARY | 2025-01-31 07:53 | XMS_ITS | Encounter Summary ---
Author Organization [facility] Address [address] [place] [address] Phone Care Team Providers Care Mechanical Engineering Officer Name Role Phone Nael Mendez MD 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 Provider Miranda Sears MD Unavailable Christopher Solomon MD Unavailable [phone] Sandra Cole MD Unavailable Encounter Details Date Type Department Care Team (Late st Contact Info) Description 10/03/2023 Scanned Document [facility] [address] [place] [address] Sandra Cole MD [address] [facility], [address] [place], [place] [id number] Social History Tobacco Use Types Packs/Day Years [...] Description 02/10/2025 9:00 AM EDT Office Visit [facility] [address] [facility] [address] [place] [address] Miranda Sears MD [address] [place] [address] Dr [address]ax[address] 1 [place] [address] 02/17/2025 11:30 AM EDT Office Visit [facility] [address] [place] [address] Dr [address] 3 [place] [address] Chirstopher Solomon MD [address] [place] [address] Dr [address] 3 [place] [address] 07/11/2025 11:15 AM EST Office Visit [facility] [address] [place] [address] Sandra Cole MD [address] [facility], [facility] [address] [place] [address] 08/15/2025 10:40 AM EST Office Visit [facility] [address] [place] [address] Dr [address] 1 [place] [address] Miranda Sears MD [address] [place] [address] Dr [address] 1 [place] [address] documented as of this encounter Visit Diagnoses Not on filedocumented in this encounter Care Teams Mechanical Engineering Officer Relationship Specialty Start Date End Date Nael Mendez MD [address] [place] [address] PCP - General 06/18/18 Miranda Sears MD [address] [place] [address] Dr [address] 1 [place] [address] Consulting Physician Hematology and Oncology 08/13/23 Christopher Solomon MD [address] [place] [address] Dr [address] [place] [address] Consulting Physician Nephrology 12/08/23 Sandra Cole MD [address] [facility], [address] [place] [address] Referring Physician Allergy and Immunology 06/24/24 documented as of this encounter
--- OUTSIDE RECORDS SUMMARY | 2025-01-31 07:53 | XMS_ITS | Encounter Summary ---
Author Organization [facility] Address [address] [place] [address] Phone Care Team Providers Care Associate Professor Of Medicine Name Role Phone Nael Mendez MD 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 Provider Miranda Sears MD Unavailable Christopher Solomon MD Unavailable [phone] Sandra Cole MD Unavailable Encounter Details Date Type Department Care Team (Late st Contact Info) Description 08/22/2023 Scanned Document [facility] [address] [facility] [address] [place] [address] Sandra Cole MD [address] [facility], [address] [place], [place] [id number] Social History Tobacco Use Types Packs/Day Years [...] Description 02/10/2025 9:00 AM EDT Office Visit [facility] [address] [place] [address] Dr [address] [place] [address] Miranda Sears MD [address] [place] [address] Dr [address] 1 [place] [address] 02/17/2025 11:30 AM EDT Office Visit [facility] [address] [place] [address] Dr [address] [place] [address] Christopher Solomon MD [address] [place] [address] Dr [address] [place] [address] 07/11/2025 11:15 AM EST Office Visit [facility] [address] [facility] [address] [place] [address] Sandra Cole MD [address] [facility], [facility] [address] [place] [address] 08/15/2025 10:40 AM EST Office Visit [facility] [address] [place] [address] Dr [address] [place] [address] Miranda Sears MD [address] [place] [address] Dr [address] [place] [address] documented as of this encounter Visit Diagnoses Not on filedocumented in this encounter Care Teams Associate Professor Of Medicine Relationship Specialty Start Date End Date Nael Mendez MD [address] [place] [address] PCP - General 06/18/18 Miranda Sears MD [address] [place] [address] Dr [address] [place] [address] Consulting Physician Hematology and Oncology 08/13/[address] [place] [address] [facility] [facility] [address] [place] [address] Consulting Physician Nephrology 12/08/23 Sandra Cole MD [address] [facility], [facility] [address] [place], [place] [address] Referring Physician Allergy and Immunology 06/24/24 documented as of this encounter
--- OUTSIDE RECORDS SUMMARY | 2025-01-31 07:53 | XMS_ITS | Encounter Summary ---
Author Organization [facility] Address [address] [place] [address] Phone Care Team Providers Care Quality Control Supervisor Name Role Phone Nael Mendez MD 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 Provider Miranda Sears MD Unavailable Christopher Solomon MD Unavailable [phone] Sandra Cole MD Unavailable [phone] Encounter Details Date Type Department Care Team (Late st Contact Info) Description 11/20/2023 Scanned Document [facility] [address] [place] [address] Sandra Cole MD [address] [facility], [address] [place], [place] [phone] Social History Tobacco Use Types Packs/Day Years [...] AM EDT Office Visit [facility] [address] [facility] [address] [place] [address] Miranda Sears MD [address] [place] [address] Dr [address]ax[address] 1 [place] [address] 02/17/2025 11:30 AM EDT Office Visit [facility] [address] [place] [address] Dr [address] [place] [address] Christopher Solomon MD [address] [place] [address] Dr [address] 3 [place] [address] 07/11/2025 11:15 AM EST Office Visit [facility] [address] [place] [address] Sandra Cole MD [address] [facility], [facility] [address] [place] [address] 08/15/2025 10:40 AM EST Office Visit [facility] [address] [place] [address] Dr [address] [place] [address] Miranda Sears MD [address] [place] [address] Dr [address] [place] [address] documented as of this encounter Visit Diagnoses Not on filedocumented in this encounter Care Teams Quality Control Supervisor Relationship Specialty Start Date End Date Nael Mendez MD [address] [place] [address] PCP - General 06/18/18 Miranda Sears MD [address] [place] [address] Dr [address] 1 [place] [address] Consulting Physician Hematology and Oncology 08/13/23 Christopher Solomon MD [address] [place] [address] Dr [address] [place] [address] Consulting Physician Nephrology 12/08/23 Sandra Cole MD [address] [facility], [address] [place] [address] Referring Physician Allergy and Immunology 06/24/24 documented as of this encounter
--- OUTSIDE RECORDS SUMMARY | 2025-01-31 07:53 | XMS_ITS | Encounter Summary ---
Author Organization [facility] Address [address] [place] [address] Phone Care Team Providers Care Atomizer Assembler Name Role Phone Nael Mendez MD 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 Provider Miranda Sears MD Unavailable Christopher Solomon MD Unavailable [phone] Sandra Cole MD Unavailable [phone] Encounter Details Date Type Department Care Team (Late st Contact Info) Description 09/22/2024 Scanned Document [facility] [address] [place] [address] Sandra Cole MD [address] [facility], [address] [place], [place] [phone] Social History Tobacco Use Types Packs/Day Years [...] Description 02/10/2025 9:00 AM EDT Office Visit [facility] [address] [facility] [address] [place] [address] Miranda Sears MD [address] [place] [address] Dr [address] 1 [place] [address] 02/17/2025 11:30 AM EDT Office Visit [facility] [address] [place] [address] Dr [address] 3 [place] [address] Christopher Solomon MD [address] [place] [address] Dr [address] 3 [place] [address] 07/11/2025 11:15 AM EST Office Visit [facility] [address] [place] [address] Sandra Cole MD [address] [facility], [facility] [address] [place] [address] 08/15/2025 10:40 AM EST Office Visit [facility] [address] [place] [address] Dr [address] [place] [address] Miranda Sears MD [address] [place] [address] Dr [address] 1 [place] [address] documented as of this encounter Visit Diagnoses Not on filedocumented in this encounter Additional Health Concerns Assessment Noted Time A fall risk assessment has been complete d for the patient 06/11/2024 10:13 AM EDT documented as of this encounter Care Teams Atomizer Assembler Relationship Specialty Start Date End Date Nael Mendez MD [address] [place] [address] PCP - General 06/18/18 Miranda Sears MD [address] [place] [address] Dr [address] 1 [place] [address] Consulting Physician Hematology and Oncology 08/13/23 Christopher Solomon MD [address] [place] [address] Dr [address] 3 [place] [address] Consulting Physician Nephrology 12/08/23 Sandra Cole MD [address] [facility], [address] [place] [address] Referring Physician Allergy and Immunology 06/24/24 documented as of this encounter
--- OUTSIDE RECORDS SUMMARY | 2025-01-31 07:53 | XMS_ITS | Encounter Summary ---
Author Organization [facility] Address [address] [place] [address] Phone Care Team Providers Care Diffuser Operator Name Role Phone Nael Mendez MD 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 Provider Miranda Sears MD Unavailable Christopher Solomon MD Unavailable [phone] Sandra Cole MD Unavailable Encounter Details Date Type Department Care Team (Late st Contact Info) Description 11/14/2023 Scanned Document [facility] [address] [place] [address] Sandra Cole MD [address] [facility], [address] [employer], [place] [phone] Social History Tobacco Use Types Packs/Day Years [...] Description 02/10/2025 9:00 AM EDT Office Visit [facility] [address] [facility] [address] [place] [address] Miranda Sears MD [address] [place] [address] Dr [address] 1 [place] [address] 02/17/2025 11:30 AM EDT Office Visit [facility] [address] [place] [address] Dr [address] 3 [place] [address] Christopher Solomon MD [address] [place] [address] Dr [address] 3 [place] [address] 07/11/2025 11:15 AM EST Office Visit [facility] [address] [place] [address] Sandra Cole MD [address] [facility], [facility] [address] [place] [address] 08/15/2025 10:40 AM EST Office Visit [facility] [address] [place] [address] Dr [address] 1 [place] [address] Miranda Sears MD [address] [place] [address] Dr [address] 1 [place] [address] documented as of this encounter Visit Diagnoses Not on filedocumented in this encounter Care Teams Diffuser Operator Relationship Specialty Start Date End Date Nael Mendez MD [address] [place] [address] PCP - General 06/18/18 Miranda Sears MD [address] [place] [address] Dr [address] 1 [place] [address] Consulting Physician Hematology and Oncology 08/13/23 Christopher Solomon MD [address] [place] [address] Dr [address] [place] [address] Consulting Physician Nephrology 12/08/23 Sandra Cole MD [address] [facility], [address] [place] [address] Referring Physician Allergy and Immunology 06/24/24 documented as of this encounter
--- OUTSIDE RECORDS SUMMARY | 2025-01-31 07:53 | XMS_ITS | Encounter Summary ---
Author Organization [facility] Address [address] [place] [address] Phone Care Team Providers Care Heat Treater Helper Name Role Phone Nael Mendez MD 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 Provider Miranda Sears MD Unavailable Christopher Solomon MD Unavailable [phone] Sandra Cole MD Unavailable Encounter Details Date Type Department Care Team (Late st Contact Info) Description 10/17/2023 Scanned Document [facility] [address] [place] [address] Sandra Cole MD [address] [facility], [address] [place], [place] [id number] Social History Tobacco Use Types Packs/Day Years [...] Description 02/10/2025 9:00 AM EDT Office [facility] [address] [facility] [address] [place] [address] Miranda Sears MD [address] [place] [address] Dr [address] [place] [address] 02/17/2025 11:30 AM EDT Office Visit [facility] [address] [place] [address] Dr [address] 3 [place] [address] Christopher Solomon MD [address] [place] [address] Dr [address] 3 [place] [address] 07/11/2025 11:15 AM EST Office Visit [facility] [address] [place] [address] Sandra Cole MD [address] [facility], [facility] [address] [place] [address] 08/15/2025 10:40 AM EST Office [facility] [address] [place] [address] Dr [address] [place] [address] Miranda Sears MD [address] [place] [address] Dr [address] [place] [address] documented as of this encounter Visit Diagnoses Not on filedocumented in this encounter Care Teams Heat Treater Helper Relationship Specialty Start Date End Date Nael Mendez MD [address] [place] [address] PCP - General 06/18/18 Miranda Sears MD [address] [place] [address] Dr [address] 1 [place] [address] Consulting Physician Hematology and Oncology 08/13/23 Christopher Solomon MD [address] [place] [address] Dr [address] 3 [place] [address] Consulting Physician Nephrology 12/08/23 Sandra Cole MD [address] [facility], [address] [place] [address] Referring Physician Allergy and Immunology 06/24/24 documented as of this encounter
--- OUTSIDE RECORDS SUMMARY | 2025-01-31 07:53 | XMS_ITS | Encounter Summary ---
Author Organization [facility] Address [address] [place] [address] Phone Care Team Providers Care Boat Joiner Name Role Phone Nael Mendez MD 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 Provider Miranda Sears MD Unavailable Christopher Solomon MD Unavailable [phone] Sandra Cole MD Unavailable Encounter Details Date Type Department Care Team (Late st Contact Info) Description 08/29/2023 Scanned Document [facility] [address] [facility] [address] [place] [address] Sandra Cole MD [address] [facility], [address] [place], [place] [id number] Social History Tobacco Use Types Packs/Day Years [...] Description 02/10/2025 9:00 AM EDT Office Visit [facility] [address] [place] [address] Dr [address] [place] [address] Miranda Sears MD [address] [place] [address] Dr [address] 1 [place] [address] 02/17/2025 11:30 AM EDT Office Visit [facility] [address] [place] [address] Dr [address] 3 [place] [address] Christopher Solomon MD [address] [place] [address] Dr [address] 3 [place] [address] 07/11/2025 11:15 AM EST Office Visit [facility] [address] [facility] [address] [place] [address] Sandra oCle MD [address] [facility], [facility] [address] [place] [address] 08/15/2025 10:40 AM EST Office Visit [facility] [address] [place] [address] Dr [address] [place] [address] Miranda Sears MD [address] [place] [address] Dr [address] 1 [place] [address] documented as of this encounter Visit Diagnoses Not on filedocumented in this encounter Care Teams Boat Joiner Relationship Specialty Start Date End Date Nael Mendez MD [address] [place] [address] PCP - General 06/18/18 Miranda Sears MD [address] [place] [address] Dr [address] 1 [place] [address] Consulting Physician Hematology and Oncology 08/13/23 [place] [address] [place] [address] Consulting Physician Nephrology 12/08/23 Sandra Cole MD [address] [facility], [facility] [address] [place], [place] [address] Referring Physician Allergy and Immunology 06/24/24 documented as of this encounter
--- OUTSIDE RECORDS SUMMARY | 2025-01-31 07:53 | XMS_ITS | Encounter Summary ---
Author Organization [facility] Address [address] [place] [address] Phone Care Team Providers Care Sba Business Development Officer Name Role Phone Nael Mendez MD 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 Provider Miranda Sears MD Unavailable Christopher Solomon MD Unavailable [phone] Sandra Cole MD Unavailable Encounter Details Date Type Department Care Team (Late st Contact Info) Description 04/12/2024 Scanned Document [facility] [address] [place] [address] Sandra Cole MD [address] [facility], [address] [place], [place] [id number] Social History Tobacco Use Types Packs/Day Years [...] Description 02/10/2025 9:00 AM EDT Office Visit [facility] [address] [facility] [address] [place] [phone] Miranda Sears MD [address] [place] [address] [address] [place] [address] 02/17/2025 11:30 AM EDT Office Visit [facility] [address] [place] [address] Dr [address] [place] [address] Christopher Solomon MD [address] [place] [address] Dr [address] [place] [address] 07/11/2025 11:15 AM EST Office Visit [facility] [address] [place] [phone] Sandra Cole MD [address] [facility], [facility] [address] [place] [address] 08/15/2025 10:40 AM EST Office Visit [facility] [address] [place] [address] Dr [address] [place] [address] Miranda Sears MD [address] [place] [address] Dr [address] [place] [address] documented as of this encounter Visit Diagnoses Not on filedocumented in this encounter Additional Health Concerns Assessment Noted Time A fall risk assessment has been complete d for the patient 12/05/2023 9:49 AM EDT documented as of this encounter Care Teams Sba Business Development Officer Relationship Specialty Start Date End Date Nael Mendez MD [address] [place] [address] PCP - General 06/18/18 Miranda Sears MD [address] [place] [address] [address] [place] [address] Consulting Physician Hematology and Oncology 08/13/23 Christopher Solomon MD [address] [place] [address] Dr [address] [place] [address] Consulting Physician Nephrology 12/08/23 Sandra Cole MD [address] [facility], [address] [place] [address] Referring Physician Allergy and Immunology 06/24/24 documented as of this encounter
--- OUTSIDE RECORDS SUMMARY | 2025-01-31 07:53 | XMS_ITS | Clinical Summary ---
Author Organization [facility] Healthcare Address [address] [place] [address] Care Team Providers Care Credit Analysis Manager Name Role Phone Nael Mendez MD Unavailable [phone] Nael Mendez MD 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 Provider [phone] Nohelia Machado DO Unavailable Unavailable Christopher Solomon MD Unavailable Unavailable Sandra Cole MD Unavailable Allergies Active Allergy Reactions Criticality Noted Date Comments Capsaicin Diarrhea 01/05/2024 Dapsone 02/05/2023 Other Reaction(s): nausea, chills, vomiting Levofloxacin 02/05/2023 Other Reaction(s): diarrhea Prochlorperazine 02/05/2023 Other Reaction(s): Hives nausea Sulfamethoxazole-Trimethoprim 2022 Other Reaction(s): Hives Medications calcitriol (Rocaltrol) 0.25 MCG capsule Take 0.25 mcg by mouth See administration instructions. TAKE 1 CAPSULE BY MOUTH ONCE DAILY ON WEEK AND 2 CAPSULES ONCE DAILY ON FRI. AND SUN. Active magnesium gluconate 250 MG tablet Take 1 tablet by mouth Daily Active ondansetron (Zofran) 8 MG tablet Take 8 mg by mouth every 8 (eight) hours if needed for nausea. Active Potassium 99 MG tablet 1 (one) time each day at the same time. Active cetirizine (ZyrTEC) 10 MG tablet Take 10 mg by mouth Daily Active cholecalciferol (Vitamin D-3) 250 MCG (45575 UT) capsule Take 1 capsule by mouth in the morning. Active Fluticasone-Salm eterol (Wixela Inhub) 500-50 MCG/ACT aerosol powder Inhale 1 puff Daily Active oxyCODONE (Roxicodone) 5 MG immediate release tablet Take 5 mg by mouth every 6 (six) hours if needed for severe pain Active omeprazole OTC (PriLOSEC OTC) 20 MG EC tablet Take 20 mg by mouth in the morning. Take before meals. Do not crush, chew, or split.. Active polyvinyl alcohol-povidone PF (Refresh) 1.4-0.6 % ophthalmic solution Administer 1-2 drops into both eyes Daily Active Immune Globulin, Human, 40 GM/400ML solution Inject 400 mL as directed every 30 (thirty) days Active Homeopathic Products (Leg Cramp Relief) sublingual tablet Place 1 tablet under the tongue if needed Active gabapentin (Neurontin) 300 MG capsuleIndicatio ns:Spasm,Chronic pain syndrome Take 1-2 capsules (300-600 mg) by mouth at bedtime Take 1 to 2 capsules in the evening 180 capsule 1 05/31/20 24 Active gabapentin (Neurontin) 100 MG capsuleIndicatio ns:Chronic pain syndrome Take 1 capsule (100 mg) by mouth in the morning and in the evening 180 capsule 1 05/31/20 24 Active Additional Information Patient taking differently:100 mg OralDaily, Reported on 01/10/2025 baclofen (Lioresal) 10 MG tabletIndication s:Spasm Take by mouth; 1/2 tablet in the morning, 1/2 tablet at lunchtime, and 1 tablet in the evening. 180 tablet 1 08/23/20 24 Active albuterol (2.5 MG/3ML) 0.083% nebulizer solutionIndicati ons:Moderate persistent asthma without complication (CMS/HCC) Take 3 mL (2.5 mg) by nebulization 4 (four) times a day as needed for wheezing or shortness of breath 08/23/20 24 025 Active albuterol HFA 90 mcg/act inhalerIndicatio ns:Moderate persistent asthma without complication (CMS/HCC) Inhale 2 puffs every 4 (four) hours if needed for wheezing or shortness of breath 08/23/20 24 Active valsartan (Diovan) 160 MG tablet Take 160 mg by mouth Daily 10/19/19 25 Active Active Problems Problem Noted Date Diagnosed Date [...] canal 03/2023 Secondary malignant neoplasm of spleen 3 Stage 3b chronic kidney disease (HCC) 02/05/2023 Stem cells transplant status 02/05/2023 Overview (11/04/2024): CAR T Cell infusion with tisageniecleucel 2019 Preparative Regimen of fludarabine and Cytoxan Systolic dysfunction 02/05/2023 Thickening of pleura 02/05/2023 Venous (peripheral) insufficiency 02/05/2023 Resolved Problems Problem Noted Date Diagnosed Date Resolved Date Other obesity due to excess calories 02/05/2023 10/23/2023 Encounters Date Type Department Care Team Description 01/10/2025 1:45 PM EDT Office Visit [facility] [address] [place] [address] Nael Mendez MD Diarrhea, unspecified type (Primary Dx); 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) 01/10/2025 Bamboo flowsheet [facility] [address] [facility] [address] [place] [address] Nael Mendez MD 01/10/2025 Travel 01/04/2025 Telephone [facility] [address] [facility] [address] [place] [address] WalterElizabeth singer MA Care Coordination 12/15/2024 Clinisync Result Encounter [facility] External Department Unsolicited Provider, Generic External Data 11/04/2024 9:30 AM EST Office Visit [facility] [address] [facility] [address] [place] [address] Nael Mendez MD Encounter for Medicare annual wellness exam (Primary Dx); Advance directive discussed with patient; Encounter for screening for other disorder; Screening for alcohol problem; Screening for diabetes mellitus (DM); Screening for lipid disorders; Morbid obesity (CMS/HCC); Acute non-recurrent maxillary sinusitis; 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 (CMS/HCC); Secondary malignant neoplasm of spinal canal (CMS/HCC) ; 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); Secondary malignant neoplasm of spleen (CMS/HCC) ; Hypogammaglobulinemia (CMS/HCC) ; Common variable immunodeficiency (CMS/HCC) ; 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); Stem cells transplant status (CMS/HCC) ; Drug-induced polyneuropathy (CMS/HCC) ; 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); Migraine without aura, intractable, with status migrainosus (CMS/HCC) ; Mixed hyperlipidemia (CMS/HCC) ; Stage 3b chronic kidney disease (HCC) (CMS/HCC) 11/04/2024 Bamboo flowsheet [facility] [address] [facility] [address] [place] [address] Nael Mendez MD 11/04/2024 Travel from Last 3 Months Immunizations Immunization Administration Dates Next Due Influenza, injectable, quadrivalent, preservativ e free 06/14/2023,08/18/2022 MMR 02/08/2020 Moderna Bivalent Booster Vaccination 08/27/2022 Pfizer Bivalent Booster 12 Years And Older 12/27 /2022 Family History Medical History Relation Name Comments Myloma Brother 1 Heart disease Brother 2 Patrick Spinal disease Brother 2 Patrick COPD Brother 3 Ryan Heart failure Brother 3 Ryan Alcohol abuse Father Ryan Arthritis Father Ryan Circulation problems Father Ryan Diabetes Father Ryan Emphysema Father Ryan Heart disease Father Ryan Prostate cancer Father Ryan Cancer Maternal Grandfather Louie [place]el[place] Alzheimer's disease Maternal Grandmother Gabriella [place] Mental illness Maternal Grandmother Gabriella [place] Alzheimer's disease Mother Isela Asthma Mother Isela Mental illness Mother Isela Cancer Paternal Grandfather Louie [place] Alzheimer's disease Paternal Grandmother Gabriella [place] Mental illness Paternal Grandmother Gabriella [place] Ovarian cancer Sister Relation Name Status Comments Brother 1 Alive Brother 2 Patrick Alive Brother 3 Ryan Daughter Alive 1 daughter Father Ryan Maternal Grandfather Louie [place] Maternal Grandmother Gabriella [place] Mother Isela Paternal Grandfather Louie [place]ho Paternal Grandmother Gabriella [place] Sister x2 Son Alive 1 son Social History Tobacco Use Types Packs/Day Years Used Date Smoking Tobacco: Never Smokeless Tobacco: Never Tobacco Cessation:Counseling Given: Yes Alcohol Use Standard Drinks/Week Comments Not Currently 0 (1 standard drink = 0.6 oz pure alcohol) Caffeine intake: 1-2 cups per day soda B1300 Health Literacy Answer Date Recor ded How often do you need to hav e someone help you when you read instructions, pamphlets, or other written material from your doctor or pharmacy? Rarely 08/19/2024 Humiliation, Afraid, Rape, and Kick questionnair e Answer Date Recorded Within the last year, have y ou been afraid of your partner or ex-partner? No 04/08/2023 Within the last year, have y ou been humiliated or emotionally abused in other ways by your partner or ex-partner? No Within the last year, have y ou been kicked, hit, slapped, or otherwise physically hurt by your partner or ex-partner? No 04/08/2023 Within the last year, have y ou been raped or forced to have any kind of sexual activity by your partner or ex-partner? No 04/08/2023 Social Connection and Isolation Panel [NHANES] A nswer Date Recorded In a typical week, how many times do you talk on the phone with family, friends, or neighbors? Twice a week 08/19/2024 How often do you get togethe r with friends or relatives? Three times a week 08/19/2024 How often do you attend chur ch or lutheran services? Never 08/19/2024 Do you belong to any clubs o r organizations such as rastafari groups, unions, fraternal or athletic groups, or school groups? No 08/19/2024 How often do you attend meet ings of the clubs or organizations you belong to? Never 08/19/2024 Are you , , di vorced, , never , or living with a partner? 08/19/2024 AUDIT-C Answer Date Recorded Q1: How often do you have a drink containing alcohol? Never 08/19/2024 Q2: How many drinks containi ng alcohol do you have on a typical day when you are drinking? Patient does not drink Q3: How often do you have si x or more drinks on one occasion? Never 08/19/2024 Overall Financial Resource Strain (CARDIA) Answe r Date Recorded How hard is it for you to pa y for the very basics like food, housing, medical care, and heating? Not very hard 08/19/2024 PHQ-2 Answer Date Recorded Patient Health Questionnaire-2 Score 2 11/04/2024 [facility] - Occupational Stress Questionnaire Answer Date Recorded Do you feel stress - tense, restless, nervous, or anxious, or unable to sleep at night because your mind is troubled all the time - these days? Rather much 08/19/2024 Exercise Vital Sign Answer Date Recorde d On average, how many days pe r week do you engage in moderate to strenuous exercise (like a brisk walk)? 0 days 08/19/2024 On average, how many minutes do you engage in exercise at this level? 0 min 08/19/2024 Hunger Vital Sign Answer Date Recorded Within the past 12 months, y ou worried that your food would run out before you got the money to buy more. Never true 08/19/20 24 Within the past 12 months, t he food you bought just didn't last and you didn't have money to get more. Never true 08/19/2024 PRAPARE - Transportation Answer Date Re corded In the past 12 months, has l ack of transportation kept you from medical appointments or from getting medications? No 08/01 In the past 12 months, has l ack of transportation kept you from meetings, work, or from getting things needed for daily living? No 08/19/2024 Housing Stability Vital Sign Answer Nathanael e Recorded In the last 12 months, was t here a time when you were not able to pay the mortgage or rent on time? No 04/08/2023 Number of Places Lived in the Last Year Not on f ile 04/08/2023 In the last 12 months, was t here a time when you did not have a steady place to sleep or slept in a longterm (including now)? No 04/08/2023 Housing Stability Vital Sign Answer Nathanael e Recorded In the last 12 months, was t here a time when you were not able to pay the mortgage or rent on time? No 08/19/2024 Number of Times Moved in the Last Year Not on fi le 08/19/2024 At any time in the past 12 [facility], were you homeless or living in a longterm (including now)? No 08/19/2024 Sex and Gender Information Value Date Recorded Sex Assigned at Not on file Legal Sex Male 7:14 PM EDT Gender Identity Not on file Sexual Orientation Not on file Last Filed Vital Signs Vital Sign Reading Time Taken Comments Blood Pressure 124/78 11/04/2024 9:29 AM EST Pulse 92 11/04/2024 9:29 AM EST Temperature - - Respiratory Rate 16 03/23/2024 8:17 AM EDT Oxygen Saturation 95% 11/04/2024 9:29 AM EST Inhaled Oxygen Concentration - - Weight 120 kg (265 lb) 01/10/2025 1:35 PM EDT Height 182.9 cm (6') 01/10/2025 1:35 PM EDT Body Mass Index 35.94 01/10/2025 1:35 PM EDT Plan of Treatment Health Maintenance Due Date Last Done Comments CT Colonography 1960 FIT-DNA 1960 FIT 1960 FOBT 1960 Sigmoidoscopy 1960 Influenza Vaccine (Season Ended) 2025 06/14/20 23, 08/18/2022 Medicare Annual Wellness (AWV) 11/04/2025 0 11/04/2024, 10/23/2023, 02/25/2022, Additional history exists Colonoscopy 06/13/2032 06/13/2022, 06/01, 06/13/2022 Colorectal Cancer Screening 06/13/2032 Procedures Procedure Name Priority Date/Time Associated Diagnosis Comments [facility] URINE T PROTEIN CREAT RATIO Routine 12/15/2024 11:15 AM EDT [facility] PTH, INTRAOPERATIVE Routine 12/15/2024 9:00 AM EDT ALL IMMUNOGLOBULIN G Routine 12/15/2024 9:00 AM EDT [facility] CMP (CMP) (FOR REMOTE COUNT INCLUDES THE [facility] USE) Routine 12/15/2024 9:00 AM EDT COLONOSCOPY Routine 06/13/2022 12:00 PM EDT from Last 3 Months or Most Recently Relevant to Health Maintenance Results * (ABNORMAL) [facility] URINE T PROTEIN CREAT RATIO (12/15/2024 11:15 AM EDT) TOTAL PROTEIN URINE RANDOM 34.4(H) <=11.9 mg/dL [facility] CREATININE URINE RANDOM 160.50 20.00 - 300.00 mg/dL [facility] PROTEIN CREATININE RATIO URINE 0.21 [facility] 12/15/2024 11:1 5 AM EDT 12/15/2024 11:24 AM EDT Narrative [facility] - 12/15/2024 12:08 PM EDT us Generic External Data Provider JESSICA F inal Result [facility] * [facility] PTH, INTRAOPERATIVE (12/15/2024 9:00 AM EDT) PTH, INTACT 15 15 - 65 pg/mL [facility] Comment: Performed at: - [facility] [address] [id number] Time Broker: Benjamín Vora PhD, Phone: [phone] 12/15/2024 9:00 AM EDT 12/15/2024 9:16 AM EDT Narrative [facility] - 12/16/2024 11:11 AM EDT us Generic External Data Provider [facility] F inal Result [facility] TB * (ABNORMAL) [facility] CMP (CMP) (FOR REMOTE COUNT INCLUDES THE [facility] USE) (12/15/2024 9:00 AM EDT) SODIUM 143 136 - 145 mmol/L [facility] POTASSIUM 4.0 3.5 - 5.1 mmol/L [facility] CHLORIDE 105 98 - 107 mmol/L [facility] CARBON DIOXIDE 30.0 21.0 - 32.0 mmol/L [facility] ANION GAP 12.0 TB[facility] GLUCOSE 125(H) 74 - 106 mg/dL [facility] BLOOD UREA NITROGEN 30.0(H) 7.0 - 18.0 mg/dL [facility] CREATININE 1.86(H) 0.70 - 1.30 mg/dL [facility] TBH EGFR-AF PAKISTANI 45(L) >=60 mL/min/1. 73m 2 TBH TBH EGFR-NON AF PAKISTANI 37(L) >=60 mL/min/1. 73m 2 TB[facility] BUN CREATININE RATIO 16.1 TBH CALCIUM 9.3 8.5 - 10.1 mg/dL [facility] BILIRUBIN TOTAL 0.5 0.2 - 1.0 mg/dL [facility] ASPARTATE AMINO TRANSFERASE 28 15 - 37 U/L [facility] ALANINE AMINOTRANSFERASE 47 16 - 63 U/L [facility] ALKALINE PHOSPHATASE 97 46 - 116 U/L [facility] TOTAL PROTEIN 6.6 6.4 - 8.2 g/dL [facility] ALBUMIN LEVEL 3.5 3.4 - 5.0 g/dL [facility] GLOBULIN 3.1 g/dL [facility] ALBUMIN GLOBULIN RATIO 1.1 [facility] 12/15/2024 9:00 AM EDT 12/15/2024 9:16 AM EDT Narrative [facility] - 12/15/2024 9:42 AM EDT Generic External Data Provider [facility]IN[facility] F inal Result Performing Organization Address City/[facility] Co de Phone Number [facility] * ALL IMMUNOGLOBULIN G (12/15/2024 9:00 AM EDT) Pathologist [facility] IMMUNOGLOBULIN G, QN [phone] - 1613 mg/dL [facility] Comment: Performed at: - [address] [id number] Time Broker: Benjamín Vora PhD, Phone: [phone] 12/15/2024 9:00 AM EDT 12/15/2024 9:16 AM EDT Narrative [facility] - 12/16/2024 6:07 AM EDT Generic External Data Provider CLIN[facility] F inal Result Performing Organization Address [facility] Co de Phone Number [facility] * Colonoscopy (06/13/2022 12:00 PM EDT) Anatomical Region Laterality Modality Endoscopy 06/13/2022 12:0 0 PM EDT Narrative 06/13/2022 12:00 PM EDT PERFORMED AT [facility] LOCATION:[id number] Procedure Note CONVERSION, GENERIC - 01/15/2023 PERFORMED AT [facility] LOCATION:[id number] Nael Mendez MD ENDOSCOPY PROCEDURE ORDERABL ES Final Result from Last 3 Months or Most Recently Relevant to Health Maintenance Insurance [facility] MEDICARE ADVANTAGE Care Teams Credit Analysis Manager Relationship Specialty Start Date End Date Nael Mendez MD [address] [facility] [address] [place] [address] PCP - Aranza MIN 09/01/21 Nael Mendez MD [address] [facility] [address] [place] [address] PCP - General Family Medicine 01/31/23 Nohelia Machado DO [address] [place] [address] Referring Physician Pulmonary Disease 10/09/23 [place] [address] [facility] [place] [address] Referring Physician Nephrology 10/09/23 [place] [address] [place] [address] Referring Physician Allergy and Immunology 10/09/23 Miranda Sears Referring Physician Oncology 09/01/18
--- OUTSIDE RECORDS SUMMARY | 2025-01-31 07:53 | XMS_ITS | Encounter Summary ---
Author Organization [facility] Address [address] [place] [address] Phone Care Team Providers Care Basting Machine Operator Name Role Phone Nael Mendez MD 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 Provider [phone] Miranda Sears MD Unavailable Christopher Solomon MD Unavailable [phone] Sandra Cole MD Unavailable Encounter Details Date Type Department Care Team (Late st Contact Info) Description 09/22/2024 Scanned Document [facility] [address] [place] [phone] Scanning, Generic Provider Social History Tobacco Use [...] Description 02/10/2025 9:00 AM EDT Office Visit [facility] [address] [facility] [address] [facility] [address] [place] [phone] [place] [address] [facility] [address] [place] [address] 02/17/2025 11:30 AM EDT Office Visit [facility] [address] [place] [address] Dr [address] [place] [address] Christopher Solomon MD [address] [place] [address] Dr [address] [place] [address] 07/11/2025 11:15 AM EST Office Visit [facility] [address] [place] [phone] Sandra Cole MD [address] [facility], [address] [place] [address] 08/15/2025 10:40 AM EST Office Visit [facility] [address] [place] [address] Dr [address] [place] [address] Miranda Sears MD [address] [place] [address] Dr [address] [place] [address] documented as of this encounter Visit Diagnoses Not on filedocumented in this encounter Additional Health Concerns Assessment Noted Time A fall risk assessment has been complete d for the patient 06/11/2024 10:13 AM EDT documented as of this encounter Care Teams Basting Machine Operator Relationship Specialty Start Date End Date Nael Mendez MD [address] [phone] PCP - General 06/18/18 Miranda Sears MD [address] [place] [address] Dr [address] [place] [address] Consulting Physician Hematology and Oncology 08/13/23 Christopher Solomon MD [address] [place] [address] Dr [address] [place] [address] Consulting Physician Nephrology 12/08/23 Sadnra Cole MD [address] [facility], [address] [place], [place] [id number] Referring Physician Allergy and Immunology 06/24/24 documented as of this encounter
--- OUTSIDE RECORDS SUMMARY | 2025-01-31 07:53 | XMS_ITS | Encounter Summary ---
Author Organization [facility] Address [address] [place] [address] Phone Care Team Providers Care Fabrication Operator Name Role Phone Nael Mendez MD 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 Provider [phone] Miranda Sears MD Unavailable Christopher Solomon MD Unavailable [phone] Sandra Cole MD Unavailable Encounter Details Date Type Department Care Team (Late st Contact Info) Description 05/26/2023 Orders Only [facility] [address] [place] [address] Conversion, Onbase Social History Tobacco Use Types [...] Description 02/10/2025 9:00 AM EDT Office Visit [facility] [address] [facility] [address] [place] [phone] Miranda Sears MD [address] [place] [address] Dr [address] [place] [id number] 02/17/2025 11:30 AM EDT [facility] [address] [place] [phone] Christopher Solomon MD [address] [place] [address] Dr [address] [place] [address] 07/11/2025 11:15 AM EST Office Visit [facility] [address] [place] [phone] Sandra Cole MD [address] [facility], [facility] [address] [place] [address] 08/15/2025 10:40 AM EST Office Visit [facility] [address] [place] [address] Dr [address] [place] [address] Miranda Sears MD [address] [place] [address] Dr [address] [place] [address] Scheduled Orders Name Type Priority Associated Diagnoses Orde r Schedule OUTSIDE LAB SCAN Lab Ordered: 05/26/2023 OUTSIDE LAB SCAN Lab Ordered: 05/26/2023 documented as of this encounter Visit Diagnoses Not on filedocumented in this encounter Care Teams Fabrication Operator Relationship Specialty Start Date End Date Nael Mendez MD [address] [phone] PCP - General 06/18/18 Miranda Sears MD [address] [place] [address] Dr [address] [place] [address] Consulting Physician Hematology and Oncology 08/13/23 Christopher Solomon MD [address] [place] [address] [address] [place] [address] Consulting Physician Nephrology 12/08/23 Sandra Cole MD [address] [facility], [facility] [address] [place] [address] Referring Physician Allergy and Immunology 06/24/24 documented as of this encounter
--- OUTSIDE RECORDS SUMMARY | 2025-01-31 07:53 | XMS_ITS | Encounter Summary ---
Author Organization [facility] Address [address] [place] [address] Phone Care Team Providers Care Business Area Manager Name Role Phone Nael Mendez MD 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 Provider Miranda Sears MD Unavailable Christopher Solomon MD Unavailable [phone] Sandra Cole MD Unavailable Encounter Details Date Type Department Care Team (Late st Contact Info) Description 09/23/2024 Scanned Document [facility] [address] [place] [phone] Scanning, Generic Provider Social History Tobacco Use [...] Description 02/10/2025 9:00 AM EDT Office Visit [facility] [address] [facility] [address] [place] [address] [place] [address] [place] [address] 02/17/2025 11:30 AM EDT Office Visit [facility] [address] [place] [address] Dr [address] [place] [address] Christopher Solomon MD [address] [place] [address] Dr [address] [place] [address] 07/11/2025 11:15 AM EST Office Visit [facility] [address] [place] [address] Sandra Cole MD [address] [facility], [address] [place] [address] 08/15/2025 10:40 AM EST Office Visit [facility] [address] [place] [address] Dr [address] [place] [address] Miranda Sears MD [address] [place] [address] Dr [address] 1 [place] [address] documented as of this encounter Visit Diagnoses Not on filedocumented in this encounter Additional Health Concerns Assessment Noted Time A fall risk assessment has been complete d for the patient 06/11/2024 10:13 AM EDT documented as of this encounter Care Teams Business Area Manager Relationship Specialty Start Date End Date Nael Mendez MD [address] [phone] PCP - General 06/18/18 Miranda Sears MD [address] [place] [address] Dr [address] [place] [address] Consulting Physician Hematology and Oncology 08/13/23 Christopher Solomon MD [address] [place] [address] Dr [address] [place] [address] Consulting Physician Nephrology 12/08/23 Sandra Cole MD [address] [facility], [address] [place], [place] [phone] Referring Physician Allergy and Immunology 06/24/24 documented as of this encounter
--- OUTSIDE RECORDS SUMMARY | 2025-01-31 07:53 | XMS_ITS | Encounter Summary ---
Author Organization [facility] Address [address] [place] [address] Phone Care Team Providers Care Comprehensive Ophthalmologist Name Role Phone Nael Mendez MD 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 Provider Miranda Sears MD Unavailable Christopher Solomon MD Unavailable [phone] Sandra Cole MD Unavailable Encounter Details Date Type Department Care Team (Late st Contact Info) Description 08/14/2023 Scanned Document [facility] [address] [place] [address] Sandra Cole MD [address] [facility] [address] [facility], [address] [place], [place] [id number] Social History Tobacco Use Types Packs/Day Years [...] Description 02/10/2025 9:00 AM EDT Office Visit [facility] [address] [place] [address] Dr [address] [place] [address] Miranda Sears MD [address] [place] [address] Dr [address] [place] [address] 02/17/2025 11:30 AM EDT Office Visit [facility] [address] [place] [address] Dr [address] [place] [address] Christopher Solomon MD [address] [place] [address] Dr [address] [place] [address] 07/11/2025 11:15 AM EST Office Visit [facility] [address] [place] [address] Sandra Cole MD [address] [facility], [address] [place] [address] 08/15/2025 10:40 AM EST Office Visit [facility] [address] [place] [address] Dr [address] [place] [address] Miranda Sears MD [address] [place] [address] Dr [address] 1 [place] [address] documented as of this encounter Visit Diagnoses Not on filedocumented in this encounter Care Teams Comprehensive Ophthalmologist Relationship Specialty Start Date End Date Nael Mendez MD [address] [place] [phone] PCP - General 06/18/18 Miranda Sears MD [address] [place] [address] Dr [address] 1 [place] [address] Consulting Physician Hematology and Oncology 08/13/23 [place] [address] [place] [address] Consulting Physician Nephrology 12/08/23 Sandra Cole MD [address] [facility], [address] [place], [place] [phone] Referring Physician Allergy and Immunology 06/24/24 documented as of this encounter
--- OUTSIDE RECORDS SUMMARY | 2025-01-31 07:53 | XMS_ITS | Encounter Summary ---
Author Organization [facility] Address [address] [place] [address] Phone Care Team Providers Care Sheep Farm Manager Name Role Phone Nael Mendez MD 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 Provider Miranda Sears MD Unavailable Christopher Solomon MD Unavailable [phone] Sandra Cole MD Unavailable Encounter Details Date Type Department Care Team (Late st Contact Info) Description 09/11/2023 Scanned Document [facility] [address] [place] [address] Sandra Cole MD [address] [facility], [address] [place], [place] [id number] Social History Tobacco Use Types Packs/Day Years [...] AM EDT Office Visit [facility] [address] [place] [address] Dr [address] [place] [address] Miranda Sears MD [address] [place] [address] Dr [address] [place] [address] 02/17/2025 11:30 AM EDT Office Visit [facility] [address] [place] [address] Dr [address] [place] [address] Christopher Solomon MD [address] [place] [address] Dr [address] 3 [place] [address] 07/11/2025 11:15 AM EST Office Visit [facility] [address] [facility] [address] [place] [address] Sandra Cole MD [address] [facility], [facility] [address] [place] [address] 08/15/2025 10:40 AM EST Office Visit [facility] [address] [place] [address] Dr [address] [place] [address] Miranda Sears MD [address] [place] [address] Dr [address] [place] [address] documented as of this encounter Visit Diagnoses Not on filedocumented in this encounter Care Teams Sheep Farm Manager Relationship Specialty Start Date End Date Nael Mendez MD [address] [place] [phone] PCP - General 06/18/18 Miranda Sears MD [address] [place] [address] Dr [address] [place] [address] Consulting Physician Hematology and Oncology 08/13/23 [place] [address] [facility] [address] [place] [address] Consulting Physician Nephrology 12/08/23 Sandra Cole MD [address] [facility], [address] [place], [place] [phone] Referring Physician Allergy and Immunology 06/24/24 documented as of this encounter
--- OUTSIDE RECORDS SUMMARY | 2025-01-31 07:53 | XMS_ITS | Encounter Summary ---
Author Organization [facility] Address [address] [place] [address] Phone Care Team Providers Care Quality Control Head Name Role Phone Nael Mendez MD 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 Provider Miranda Sears MD Unavailable Christopher Solomon MD Unavailable [phone] Sandra Cole MD Unavailable [phone] Encounter Details Date Type Department Care Team (Late st Contact Info) Description 08/14/2023 Scanned Document [facility] [address] [facility] [address] [place] [address] Sandra Cole MD [address] [facility], [address] [place], [place] [id number] Social History Tobacco Use Types Packs/Day Years [...] Description 02/10/2025 9:00 AM EDT Office Visit [facility] [address] [place] [address] Dr [address] [place] [address] Miranda Sears MD [address] [place] [address] Dr [address] 1 [place] [address] 02/17/2025 11:30 AM EDT Office Visit [facility] [address] [place] [address] Dr [address] [place] [address] Christopher Solomon MD [address] [place] [address] Dr [address] 3 [place] [address] 07/11/2025 11:15 AM EST Office Visit [facility] [address] [facility] [address] [place] [address] Sandra Cole MD [address] [facility], [facility] [address] [place] [address] 08/15/2025 10:40 AM EST Office Visit [facility] [address] [place] [address] Dr [address] [place] [address] Miranda Sears MD [address] [place] [address] Dr [address] 1 [place] [address] documented as of this encounter Visit Diagnoses Not on filedocumented in this encounter Care Teams Quality Control Head Relationship Specialty Start Date End Date Nael Mendez MD [address] [place] [address] PCP - General 06/18/18 Miranda Sears MD [address] [place] [address] Dr [address] [place] [address] Consulting Physician Hematology and Oncology 08/13/23 [place] [address] [facility] [address] [place] [address] Consulting Physician Nephrology 12/08/23 Sandra Cole MD [address] [facility], [facility] [address] [place], [place] [phone] Referring Physician Allergy and Immunology 06/24/24 documented as of this encounter
--- OUTSIDE RECORDS SUMMARY | 2025-01-31 07:53 | XMS_ITS | Encounter Summary ---
Author Organization [facility] Address [address] [place] [address] Phone Care Team Providers Care Body Art Technician Name Role Phone Nael Mendez MD 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 Provider Miranda Sears MD Unavailable Christopher Solomon MD Unavailable [phone] Sandra Cole MD Unavailable [phone] Encounter Details Date Type Department Care Team (Late st Contact Info) Description 07/02/2024 Scanned Document [facility] [address] [facility] [address] [place] [address] Sandra Cole MD [address] [facility], [address] [place], [place] [phone] Social History Tobacco Use Types Packs/Day Years [...] suspected to have Coronavirus/COVID-19? No / Unsure 07/05/2024 10:10 AM EST documented as of this encounter Plan of Treatment Upcoming Encounters Date Type Department Care Team (Late st Contact Info) Description 02/10/2025 9:00 AM EDT Office Visit [facility] [address] [place] [address] Dr [address] [place] [address] Miranda Sears MD [address] [place] [address] Dr [address] [place] [address] 02/17/2025 11:30 AM EDT Office Visit [facility] [address] [place] [address] Dr [address] [place] [address] Christopher Solomon MD [address] [place] [address] Dr [address] [place] [address] 07/11/2025 11:15 AM EST Office Visit [facility] [address] [facility] [address] [place] [address] Sandra Cole MD [address] [facility], [facility] [address] [place] [address] 08/15/2025 10:40 AM EST Office Visit [facility] [address] [place] [address] Dr [address] [place] [address] Miranda Sears MD [address] [place] [address] Dr [address] 1 [place] [address] documented as of this encounter Visit Diagnoses Not on filedocumented in this encounter Additional Health Concerns Assessment Noted Time A fall risk assessment has been complete d for the patient 06/11/2024 10:13 AM EDT documented as of this encounter Care Teams Body Art Technician Relationship Specialty Start Date End Date Nael Mendez MD [address] [place] [phone] PCP - General 06/18/18 Miranda Sears MD [address] [place] [address] Dr [address] [place] [address] Consulting Physician Hematology and Oncology 08/13/23 [place] [address] [facility] [address] [place] [address] Consulting Physician Nephrology 12/08/23 Sandra Cole MD [address] [facility], [address] [place] [address] Referring Physician Allergy and Immunology 06/24/24 documented as of this encounter
--- OUTSIDE RECORDS SUMMARY | 2025-01-31 07:53 | XMS_ITS | Encounter Summary ---
Author Organization [facility] Address [address] [place] [address] Phone Care Team Providers Care Histology Manager Name Role Phone Nael Mendez MD 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 Provider Miranda Sears MD Unavailable Christopher Solomon MD Unavailable [phone] Sandra Cole MD Unavailable [phone] Encounter Details Date Type Department Care Team (Late st Contact Info) Description 09/10/2023 Scanned Document [facility] [address] [place] [address] Sandra Cole MD [address] [facility] [address] [facility], [address] [place], [place] [phone] Social History Tobacco Use Types Packs/Day Years [...] AM EDT Office Visit [facility] [address] [place] [address] Dr [address] [place] [address] Miranda Sears MD [address] [place] [address] Dr [address] [place] [address] 02/17/2025 11:30 AM EDT Office Visit [facility] [address] [place] [address] Dr [address] [place] [address] Christopher Solomon MD [address] [place] [address] Dr [address] 3 [place] [address] 07/11/2025 11:15 AM EST Office Visit [facility] [address] [facility] [address] [place] [address] Sandra Cole MD [address] [facility], [facility] [address] [place] [address] 08/15/2025 10:40 AM EST Office Visit [facility] [address] [place] [address] Dr [address] [place] [address] Miranda Sears MD [address] [place] [address] Dr [address] 1 [place] [address] documented as of this encounter Visit Diagnoses Not on filedocumented in this encounter Care Teams Histology Manager Relationship Specialty Start Date End Date Nael Mendez MD [address] [place] [phone] PCP - General 06/18/18 Miranda Sears MD [address] [place] [address] Dr [address] [place] [address] Consulting Physician Hematology and Oncology 08/13/23 [place] [address] [facility] [address] [place] [address] Consulting Physician Nephrology 12/08/23 Sandra Cole MD [address] [facility], [address] [place], [place] [address] Referring Physician Allergy and Immunology 06/24/24 documented as of this encounter
--- OUTSIDE RECORDS SUMMARY | 2025-01-31 07:53 | XMS_ITS | Encounter Summary ---
Author Organization [facility] Address [address] [place] [address] Phone Care Team Providers Care Hearing Consultant Name Role Phone Nael Mendez MD 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 Provider Miranda Sears MD Unavailable Christopher Solomon MD Unavailable [phone] Sandra Cole MD Unavailable Encounter Details Date Type Department Care Team (Late st Contact Info) Description 05/02/2016 Scanned Document [facility] [address] [place] [address] Scanning, Generic Provider Social History Tobacco Use [...] Description 02/10/2025 9:00 AM EDT Office Visit [facility] [address] [facility] [address] [place] [address] Miranda Sears [place] [address] [place] [address] Dr [address] [place] [id number] 02/17/2025 11:30 AM EDT Office Visit [facility] [address] [facility] [address] [place] [address] Christopher Solomon MD [address] [place] [address] Dr [address] [place] [address] 07/11/2025 11:15 AM EST Office Visit [facility] [address] [place] [address] Sandra Cole MD [address] [facility], [address] [place] [address] 08/15/2025 10:40 AM EST Office Visit [facility] [address] [place] [address] Dr [address] 1 [place] [address] Miranda Sears MD [address] [place] [address] Dr [address] 1 [place] [address] documented as of this encounter Visit Diagnoses Not on filedocumented in this encounter Care Teams Hearing Consultant Relationship Specialty Start Date End Date Nael Mendez MD [address] [place] [phone] PCP - General 06/18/18 Miranda Sears MD [address] [place] [address] Dr [address] [place] [address] Consulting Physician Hematology and Oncology 08/13/23 Christopher Solomon MD [address] [place] [address] Dr [address] 3 [place] [address] Consulting Physician Nephrology 12/08/23 Sandra Cole MD [address] [facility], [address] [place] [address] Referring Physician Allergy and Immunology 06/24/24 documented as of this encounter
--- OUTSIDE RECORDS SUMMARY | 2025-01-31 07:54 | XMS_ITS | Encounter Summary ---
Author Organization [facility] Address [address] [place] [address] Phone Care Team Providers Care Automatic Lathe Tender Name Role Phone Nael Mendez MD 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 Provider Miranda Sears MD Unavailable Christopher Solomon MD Unavailable [phone] Sandra Cole MD Unavailable Encounter Details Date Type Department Care Team (Late st Contact Info) Description 12/20/2024 Scanned Document [facility] [address] [facility] [address] [place] [address] Sandra Cole MD [address] [facility], [address] [place], [place] [id number] Social History Tobacco Use Types Packs/Day Years [...] 02/10/2025 9:00 AM EDT Office Visit [facility] [address] [facility] [address] [place] [address] Miranda Sears MD [address] [place] [address] Dr [address] [place] [address] 02/17/2025 11:30 AM EDT Office Visit [facility] [address] [place] [address] Dr [address] 3 [place] [address] Christopher Solomon MD [address] [place] [address] Dr [address] [place] [address] 07/11/2025 11:15 AM EST Office Visit [facility] [address] [place] [address] Sandra Cole MD [address] [facility], [facility] [address] [place] [address] 08/15/2025 10:40 AM EST Office Visit [facility] [address] [place] [address] Dr [address] 1 [place] [address] Miranda Sears MD [address] [place] [address] Dr [address] 1 [place] [address] documented as of this encounter Visit Diagnoses Not on filedocumented in this encounter Additional Health Concerns Assessment Noted Time A fall risk assessment has been complete d for the patient 10/19/2024 2:22 PM EST documented as of this encounter Care Teams Automatic Lathe Tender Relationship Specialty Start Date End Date Nael Mendez MD [address] [facility] [address] [place] [phone] PCP - General 06/18/18 Miranda Sears MD [address] [place] [address] Dr [address] [place] [address] Consulting Physician Hematology and Oncology 08/13/23 Christopher Solomon MD [address] [place] [address] Dr [address] [place] [address] Consulting Physician Nephrology 12/08/23 Sandra Cole MD [address] [facility], [facility] [address] [place] [address] Referring Physician Allergy and Immunology 06/24/24 documented as of this encounter
--- OUTSIDE RECORDS SUMMARY | 2025-01-31 07:54 | XMS_ITS | Encounter Summary ---
Author Organization [facility] Address [address] [place] [address] Phone Care Team Providers Care Poolroom Table Attendant Name Role Phone Nael Mendez MD 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 Provider Miranda Sears MD Unavailable Christopher Solomon MD Unavailable [phone] Sandra Cole MD Unavailable Encounter Details Date Type Department Care Team (Late st Contact Info) Description 04/30/2021 Orders Only [facility] [address] [place] [address] Conversion, Onbase Social History Tobacco Use Types [...] 9:00 AM EDT Office Visit [facility] [address] [facility] [address] [place] [address] Miranda Sears MD [address] [place] [address] Dr [address] [place] [id number] 02/17/2025 11:30 AM EDT Office Visit [facility] [address] [facility] [address] [place] [address] Christopher Solomon MD [address] [place] [address] Dr [address] 3 [place] [address] 07/11/2025 11:15 AM EST Office Visit [facility] [address] [facility] [address] [place] [address] Sandra Cole MD [address] [facility], [facility] [address] [place] [address] 08/15/2025 10:40 AM EST Office Visit [facility] [address] [place] [address] Dr [address] [place] [address] Miranda Sears MD [address] [place] [address] Dr [address] [place] [address] Scheduled Orders Name Type Priority Associated Diagnoses Orde r Schedule OUTSIDE LAB SCAN Lab Ordered: 04/30/2021 documented as of this encounter Visit Diagnoses Not on filedocumented in this encounter Care Teams Poolroom Table Attendant Relationship Specialty Start Date End Date Nael Mendez MD [address] [place] [address] PCP - General 06/18/18 Miranda Sears MD [address] [place] [address] Dr [address] [place] [address] Consulting Physician Hematology and Oncology 08/13/23 Christopher Solomon MD [address] [place] [address] Dr [address] 3 [place] [address] Consulting Physician Nephrology 12/08/23 Sandra Cole MD [address] [facility], [facility] [address] [place] [address] Referring Physician Allergy and Immunology 06/24/24 documented as of this encounter
--- OUTSIDE RECORDS SUMMARY | 2025-01-31 07:54 | XMS_ITS | Encounter Summary ---
Author Organization [facility] Address [address] [place] [address] Phone Care Team Providers Care Binder Layer Name Role Phone Nael Mendez MD 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 Provider Miranda Sears MD Unavailable Christopher Solomon MD Unavailable [phone] Sandra Cole MD Unavailable Encounter Details Date Type Department Care Team (Late st Contact Info) Description 11/06/2021 Orders Only [facility] [address] [place] [address] Conversion, Onbase Social History Tobacco Use Types [...] 02/10/2025 9:00 AM EDT Office Visit [facility] [address] [place] [address] Miranda Sears MD [address] [place] [address] Dr [address] [place] [id number] 02/17/2025 11:30 AM EDT Office Visit [facility] [address] [place] [address] Christopher Solomon MD [address] [place] [address] Dr [address] [place] [address] 07/11/2025 11:15 AM EST Office Visit [facility] [address] [facility] [address] [place] [address] Sandra Cole MD [address] [facility], [facility] [address] [place] [address] 08/15/2025 10:40 AM EST Office Visit [facility] [address] [place] [address] Dr [address] [place] [address] Miranda Sears MD [address] [place] [address] Dr [address] [place] [address] Scheduled Orders Name Type Priority Associated Diagnoses Orde r Schedule OUTSIDE LAB SCAN Lab Ordered: 11/06/2021 documented as of this encounter Visit Diagnoses Not on filedocumented in this encounter Care Teams Binder Layer Relationship Specialty Start Date End Date Nael Mendez MD [address] [place] [address] PCP - General 06/18/18 Miranda Sears MD [address] [place] [address] Dr [address] [place] [address] Consulting Physician Hematology and Oncology 08/13/23 Christopher Solomon MD [address] [place] [address] Dr [address] [place] [address] Consulting Physician Nephrology 12/08/23 Sandra Cole MD [address] [facility], [facility] [address] [place] [address] Referring Physician Allergy and Immunology 06/24/24 documented as of this encounter
--- OUTSIDE RECORDS SUMMARY | 2025-01-31 07:54 | XMS_ITS | Encounter Summary ---
Author Organization [facility] Address [address] [place] [address] Phone Care Team Providers Care Broom Machine Operator Name Role Phone Nael Mendez MD 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 Provider [phone] Miranda Sears MD Unavailable Christopher Solomon MD Unavailable [phone] Sandra Cole MD Unavailable [phone] Encounter Details Date Type Department Care Team (Late st Contact Info) Description 01/20/2023 Orders Only [facility] [address] [place] [address] Conversion, Onbase Social History Tobacco Use Types [...] 9:00 AM EDT Office Visit [facility] [address] [facility] [address] [place] [address] Miranda Sears MD [address] [place] [address] Dr [address] [place] [id number] 02/17/2025 11:30 AM EDT Office Visit [facility] [address] [facility] [address] [place] [address] Christopher Solomon MD [address] [place] [address] Dr [address] [place] [address] 07/11/2025 11:15 AM EST Office Visit [facility] [address] [facility] [address] [place] [address] Sandra Cole MD [address] [facility], [facility] [address] [place] [address] 08/15/2025 10:40 AM EST Office Visit [facility] [address] [place] [address] Dr [address] [place] [address] Miranda Sears MD [address] [place] [address] Dr [address] [place] [address] Scheduled Orders Name Type Priority Associated Diagnoses Orde r Schedule OUTSIDE LAB SCAN Lab Ordered: 01/20/2023 documented as of this encounter Visit Diagnoses Not on filedocumented in this encounter Care Teams Broom Machine Operator Relationship Specialty Start Date End Date Nael Mendez MD [address] [place] [address] PCP - General 06/18/18 Miranda Sears MD [address] [place] [address] Dr [address] [place] [address] Consulting Physician Hematology and Oncology 08/13/23 Christopher Solomon MD [address] [place] [address] Dr [address] [place] [address] Consulting Physician Nephrology 12/08/23 Sandra Cole MD [address] [facility], [facility] [address] [place] [address] Referring Physician Allergy and Immunology 06/24/24 documented as of this encounter
--- OUTSIDE RECORDS SUMMARY | 2025-01-31 07:54 | XMS_ITS | Encounter Summary ---
Author Organization [facility] Address [address] [place] [address] Phone Care Team Providers Care Classified Ad Clerk Name Role Phone Nael Mendez MD 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 Provider [phone] Miranda Sears MD Unavailable Christopher Solomon MD Unavailable [phone] Sandra Cole MD Unavailable Encounter Details Date Type Department Care Team (Late st Contact Info) Description 12/15/2024 Scanned Document [facility] [address] [place] [address] Scanning, Generic Provider Social History Tobacco Use [...] AM EDT Office Visit [facility] [address] [place] [address] [place] [address] [place] [address] 02/17/2025 11:30 AM EDT Office Visit [facility] [address] [place] [address] Dr [address] [place] [address] Christopher Solomon MD [address] [place] [address] Dr [address] [place] [address] 07/11/2025 11:15 AM EST Office Visit [facility] [address] [place] [address] Sandra Cole MD [address] [facility], [address] [place] [address] 08/15/2025 10:40 AM EST Office Visit [facility] [address] [place] [address] Dr [address] [place] [address] Miranda Sears MD [address] [place] [address] Dr [address] [place] [address] documented as of this encounter Visit Diagnoses Not on filedocumented in this encounter Additional Health Concerns Assessment Noted Time A fall risk assessment has been complete d for the patient 10/19/2024 2:22 PM EST documented as of this encounter Care Teams Classified Ad Clerk Relationship Specialty Start Date End Date Nael Mendez MD [address] [address] PCP - General 06/18/18 Miranda Sears MD [address] [place] [address] Dr [address] [place] [address] Consulting Physician Hematology and Oncology 08/13/23 Christopher Solomon MD [address] [place] [address] Dr [address] [place] [address] Consulting Physician Nephrology 12/08/23 Sandra Cole MD [address] [facility], [address] [place], [place] [phone] Referring Physician Allergy and Immunology 06/24/24 documented as of this encounter
--- OUTSIDE RECORDS SUMMARY | 2025-01-31 07:54 | XMS_ITS | Encounter Summary ---
Author Organization [facility] Address [address] [place] [address] Phone Care Team Providers Care Kitchen Steward/Stewardess Name Role Phone Nael Mendez MD 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 Provider Miranda Sears MD Unavailable Christopher Solomon MD Unavailable [phone] Sandra Cole MD Unavailable Encounter Details Date Type Department Care Team (Late st Contact Info) Description 12/15/2024 Scanned Document [facility] [address] [place] [address] Sandra Cole MD [address] [facility], [address] [place], [place] [id number] Social History Tobacco Use Types Packs/Day Years [...] 9:00 AM EDT Office Visit [facility] [address] [facility] [address] [place] [address] Miranda Sears MD [address] [place] [address] Dr [address] [place] [address] 02/17/2025 11:30 AM EDT Office Visit [facility] [address] [place] [address] Dr [address] [place] [address] Christopher Solomon MD [address] [place] [address] Dr [address] [place] [address] 07/11/2025 11:15 AM EST Office Visit [facility] [address] [place] [address] Sandra Cole MD [address] [facility], [facility] [address] [place] [address] 08/15/2025 10:40 AM EST Office Visit [facility] [address] [place] [address] Dr [address] [place] [address] Miranda Sears MD [address] [place] [address] Dr [address] [place] [address] documented as of this encounter Visit Diagnoses Not on filedocumented in this encounter Additional Health Concerns Assessment Noted Time A fall risk assessment has been complete d for the patient 10/19/2024 2:22 PM EST documented as of this encounter Care Teams Kitchen Steward/Stewardess Relationship Specialty Start Date End Date Nael Mendez MD [address] [facility] [address] [place] [address] PCP - General 06/18/18 Miranda Sears MD [address] [place] [address] Dr [address] [place] [address] Consulting Physician Hematology and Oncology 08/13/23 Christopher Solomon MD [address] [place] [address] Dr [address] [place] [address] Consulting Physician Nephrology 12/08/23 Sandra Cole MD [address] [facility], [facility] [address] [place] [address] Referring Physician Allergy and Immunology 06/24/24 documented as of this encounter
--- OUTSIDE RECORDS SUMMARY | 2025-01-31 07:54 | XMS_ITS | Encounter Summary ---
Author Organization [facility] Address [address] [place] [address] Care Team Providers Care Gut Carrier Name Role Phone Nael Mendez MD Unavailable [phone] Nael Mendez MD 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 Provider [phone] Nohelia Machado DO Unavailable Unavailable Christopher Solomon MD Unavailable Unavailable Sandra Cole MD Unavailable [phone] Mary Hinds LPN Unavailable Encounter Details Date Type Department Care Team (Late st Contact Info) Description 02/21/2023 Abstract [facility] [address] [place] [address] Nael Mendez MD 112 [facility] [address] [place] [address] Social History Tobacco Use Types Packs/Day Years [...] suspected to have Coronavirus/COVID-19? No / Unsure 02/05/2023 11:36 AM EDT documented as of this encounter Plan of Treatment Not on file documented as of this encounter Visit Diagnoses Not on filedocumented in this encounter Care Teams Gut Carrier Relationship Specialty Start Date End Date Nael Mendez MD [address] [place] [address] PCP - Aranza MIN 09/01/21 Nael Mendez MD [address] [facility] [address] [place] [address] PCP - General Family Medicine 01/31/23 Nohelia Machado DO [address] [place] [address] Referring Physician Pulmonary Disease 10/09/23 [place] [address] [facility] [place] [address] Referring Physician Nephrology 10/09/23 [place] [address] [place] [address] Referring Physician Allergy and Immunology 10/09/23 Mary Hinds LPN Licensed Practical Nurse Family Medicine 02/23/24 03/11/24 Miranda Sears Referring Physician Oncology 09/01/18 documented as of this encounter
--- OUTSIDE RECORDS SUMMARY | 2025-01-31 07:54 | XMS_ITS | Encounter Summary ---
Author Organization [facility] Address [address] [place] [address] Care Team Providers Care Fast Food Server Name Role Phone Nael Mendez MD Unavailable [phone] Nael Mendez MD 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 Provider [phone] Nohelia Machado DO Unavailable Unavailable Christopher Solomon MD Unavailable Unavailable Sandra Cole MD Unavailable [phone] Mary Hinds LPN Unavailable Encounter Details Date Type Department Care Team (Late st Contact Info) Description 04/25/2023 Abstract [facility] [address] [place] [address] Nael Mendez MD [address] [facility] [address] [place], [place] [id number] Social History Tobacco Use Types Packs/Day Years Used Date Smoking Tobacco: Never Alcohol Use Standard Drinks/Week Comments Not Currently 0 (1 standard drink = 0.6 oz pure alcohol) Caffeine intake: 1-2 cups per day soda Humiliation, Afraid, Rape, and Kick questionnair e [...] the phone with family, friends, or neighbors? Three times a week 04/08/2023 How often do you get togethe r with friends or relatives? Twice a week 04/08/2023 How often do you attend chur ch or orthodox services? Never 04/08/2023 Do you belong to any clubs o r organizations such as methodist groups, unions, fraternal or athletic groups, or school groups? No 04/08/2023 How often do you attend meet ings of the clubs or organizations you belong to? Never 04/08/2023 Are you , , di vorced, , never , or living with a partner? 04/08/2023 AUDIT-C Answer Date Recorded Q1: How often do you have a drink containing alcohol? Never 04/08/2023 Q2: How many drinks containi ng alcohol do you have on a typical day when you are drinking? Patient does not drink Q3: How often do you have si x or more drinks on one occasion? Never 04/08/2023 Overall Financial Resource Strain (CARDIA) Answe r Date Recorded How hard is it for you to pa y for the very basics like food, housing, medical care, and heating? Not hard at all 04/08/2023 [facility] - Occupational Stress Questionnaire Answer Date Recorded Do you feel stress - tense, restless, nervous, or anxious, or unable to sleep at night because your mind is troubled all the time - these days? Very much 04/08/2023 Exercise Vital Sign Answer Date Recorde d On average, how many days pe r week do you engage in moderate to strenuous exercise (like a brisk walk)? 0 days 04/08/2023 On average, how many minutes do you engage in exercise at this level? 0 min 04/08/2023 Hunger Vital Sign Answer Date Recorded Within the past 12 months, y ou worried that your food would run out before you got the money to buy more. Never true 04/08/20 23 Within the past 12 months, t he food you bought just didn't last and you didn't have money to get more. Never true 04/08/2023 PRAPARE - Transportation Answer Date Re corded In the past 12 months, has l ack of transportation kept you from medical appointments or from getting medications? No 04/2023 In the past 12 months, has l ack of transportation kept you from meetings, work, or from getting things needed for daily living? No 04/08/2023 Housing Stability Vital Sign Answer [...] place to sleep or slept in a mcc (including now)? No 04/08/2023 Sex and Gender Information Value Date Recorded Sex Assigned at Not on file Legal Sex Male 7:14 PM EDT Gender Identity Not on file Sexual Orientation Not on file COVID-19 Exposure Response Date Recorded In the last 10 days, have yo u been in contact with someone who was confirmed or suspected to have Coronavirus/COVID-19? No / Unsure 04/18/2023 2:47 PM EDT documented as of this encounter Plan of Treatment Not on file documented as of this encounter Visit Diagnoses Not on filedocumented in this encounter Care Teams Fast Food Server Relationship Specialty Start Date End Date Nael Mendez MD [address] [address] PCP - Aranza MIN 09/01/21 Nael Mendez MD [address] [address] PCP - General Family Medicine 01/31/23 Nohelia Machado DO [address] [place] [address] Referring Physician Pulmonary Disease 10/09/23 [place] [address] [place] [address] Referring Physician Nephrology 10/09/23 [place] [address] [place] [address] Referring Physician Allergy and Immunology 10/09/23 Mary Hinds LPN Licensed Practical Nurse Family Medicine 02/23/24 03/11/24 Miranda Sears Referring Physician Oncology 09/01/18 documented as of this encounter
--- OUTSIDE RECORDS SUMMARY | 2025-01-31 07:54 | XMS_ITS | Encounter Summary ---
Author Organization [facility] Address [address] [place] [address] Care Team Providers Care Tea And Spice Supervisor Name Role Phone Nael Mendez MD Unavailable [phone] Nael Mendez MD 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 Provider [phone] Nohelia Machado DO Unavailable Unavailable Christopher Solomon MD Unavailable Unavailable Sandra Cole MD Unavailable [phone] Mary Hinds LPN Unavailable Encounter Details Date Type Department Care Team (Late st Contact Info) Description 04/25/2023 Abstract [facility] [address] [place] [address] Nael Mendez MD [address] [facility] [address] [place], [place] [id number] Social History Tobacco Use Types Packs/Day Years [...] often do you attend chur ch or druze services? Never 04/08/2023 Do you belong to any clubs o r organizations such as druze groups, unions, fraternal or athletic groups, or [...] and heating? Not hard at all 04/08/2023 [facility] ional Health - Occupational Stress [...] place to sleep or slept in a chcf (including now)? No 04/08/2023 Sex and Gender [...] on filedocumented in this encounter Care Teams Tea And Spice Supervisor Relationship Specialty Start Date End Date Nael Mendez MD [address] [address] PCP - Aranza MIN 09/01/21 Nael Mendez MD [address] [address] PCP - General Family Medicine 01/31/23 Nohelia Machado DO [address] [place] [address] Referring Physician Pulmonary Disease 10/09/23 [place] [address] [facility] [place] [address] Referring Physician Nephrology 10/09/23 [place] [address] [place] [address] Referring Physician Allergy and Immunology 10/09/23 Mary Hinds LPN Licensed Practical Nurse Family Medicine 02/23/24 03/11/24 Miranda Sears Referring Physician Oncology 09/01/18 documented as of this encounter
--- OUTSIDE RECORDS SUMMARY | 2025-01-31 07:54 | XMS_ITS | Encounter Summary ---
Author Organization [facility] Address [address] [place] [address] Phone Care Team Providers Care Director Pharmaceutical Name Role Phone Nael Mendez MD 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 Provider Miranda Sears MD Unavailable Christopher Solomon MD Unavailable [phone] Sandra Cole MD Unavailable Encounter Details Date Type Department Care Team (Late st Contact Info) Description 05/08/2022 Orders Only [facility] [address] [place] [address] Conversion, Onbase Social History Tobacco Use Types [...] Description 02/10/2025 9:00 AM EDT Office Visit [facility] [address] [facility] [address] [place] [address] Miranda Sears MD [address] [place] [address] Dr [address] [place] [id number] 02/17/2025 11:30 AM EDT Office Visit [facility] [address] [facility] [address] [place] [address] Christopher Solomon MD [address] [place] [address] Dr [address] [place] [address] 07/11/2025 11:15 AM EST Office Visit [facility] [address] [facility] [address] [place] [address] Sandra Cole MD [address] [facility], [facility] [address] [place] [address] 08/15/2025 10:40 AM EST Office Visit [facility] [address] [place] [address] Dr [address] [place] [address] Miranda Sears MD [address] [place] [address] Dr [address] [place] [address] Scheduled Orders Name Type Priority Associated Diagnoses Orde r Schedule OUTSIDE LAB SCAN Lab Ordered: 05/08/2022 documented as of this encounter Visit Diagnoses Not on filedocumented in this encounter Care Teams Director Pharmaceutical Relationship Specialty Start Date End Date Nael Mendez MD [address] [place] [address] PCP - General 06/18/18 Miranda Sears MD [address] [place] [address] Dr [address] [place] [address] Consulting Physician Hematology and Oncology 08/13/23 Christopher Solomon MD [address] [place] [address] Dr [address] [place] [address] Consulting Physician Nephrology 12/08/23 Sandra Cole MD [address] [facility], [facility] [address] [place] [address] Referring Physician Allergy and Immunology 06/24/24 documented as of this encounter
--- OUTSIDE RECORDS SUMMARY | 2025-01-31 07:54 | XMS_ITS | Encounter Summary ---
Author Organization [facility] Address [address] [place] [address] Phone Care Team Providers Care Poison Information Specialist Name Role Phone Nael Mendez MD 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 Provider Miranda Sears MD Unavailable Christopher Solomon MD Unavailable [phone] Sandra Cole MD Unavailable Encounter Details Date Type Department Care Team (Late st Contact Info) Description 12/15/2024 Scanned Document [facility] [address] [place] [address] Sandra Cole MD [address] [facility], [address] [place], [place] [id number] Social History Tobacco Use Types Packs/Day Years [...] Description 02/10/2025 9:00 AM EDT Office Visit [facility] [address] [facility] [address] [place] [address] Miranda Sears MD [address] [place] [address] Dr [address] [place] [address] 02/17/2025 11:30 AM EDT Office Visit [facility] [address] [place] [address] Dr [address] [place] [address] Christopher Solomon MD [address] [place] [address] Dr [address] [place] [address] 07/11/2025 11:15 AM EST Office Visit [facility] [address] [place] [address] Sandra Cole MD [address] [facility], [facility] [address] [place] [address] 08/15/2025 10:40 AM EST Office Visit [facility] [address] [place] [address] Dr [address] [place] [address] Miranda Sears MD [address] [place] [address] Dr [address] [place] [address] documented as of this encounter Visit Diagnoses Not on filedocumented in this encounter Additional Health Concerns Assessment Noted Time A fall risk assessment has been complete d for the patient 10/19/2024 2:22 PM EST documented as of this encounter Care Teams Poison Information Specialist Relationship Specialty Start Date End Date Nael Mendez MD [address] [facility] [address] [place] [address] PCP - General 06/18/18 Miranda Sears MD [address] [place] [address] Dr [address] [place] [address] Consulting Physician Hematology and Oncology 08/13/23 Christopher Solomon MD [address] [place] [address] Dr [address] [place] [address] Consulting Physician Nephrology 12/08/23 Sandra Cole MD [address] [facility], [facility] [address] [place] [address] Referring Physician Allergy and Immunology 06/24/24 documented as of this encounter
--- OUTSIDE RECORDS SUMMARY | 2025-01-31 07:54 | XMS_ITS | Encounter Summary ---
Author Organization [facility] Address [address] [place] [address] Care Team Providers Care Entry Level Account Executive Name Role Phone Nael Mendez MD Unavailable [phone] Nael Mendez MD 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 Provider [phone] Nohelia Machado DO Unavailable Unavailable Christopher Solomon MD Unavailable Unavailable Sandra Cole MD Unavailable [phone] Mary Hinds LPN Unavailable Reason for Visit * Reason Comments Med Refill Encounter Details Date Type Department Care Team (Late st Contact Info) Description 02/10/2024 Refill [facility] [address] [facility] [place] [id number] Nael Mendez MD 112 [facility] [address] [place], [place] [id number] Social History Tobacco Use Types Packs/Day Years Used Date Smoking Tobacco: Never Smokeless Tobacco: Never Alcohol Use Standard Drinks/Week [...] often do you attend chur ch or mormonism services? Never 04/08/2023 Do you belong to any clubs o r organizations such as sikh groups, unions, fraternal or athletic groups, or [...] and heating? Not hard at all 04/08/2023 [facility] - Occupational Stress [...] in a longterm (including now)? No 04/08/2023 Sex and Gender Information Value Date Recorded Sex Assigned at Not on file Legal Sex Male 7:14 PM EDT Gender Identity Not on file Sexual Orientation Not on file documented as of this encounter Plan of Treatment Not on file documented as of this encounter Visit Diagnoses Not on filedocumented in this encounter Additional Health Concerns Assessment Noted Time PHQ-9 Depression Total Score: 12 10/23/ 024 10:00 AM EST documented as of this encounter Care Teams Entry Level Account Executive Relationship Specialty Start Date End Date Nael Mendez MD [address] [address] PCP - Aranza MIN 09/01/21 Nael Mendez MD [address] [address] PCP - General Family Medicine 01/31/23 Nohelia Machado DO [address] [place] [address] Referring Physician Pulmonary Disease 10/09/23 [place] [address] [facility] [place] [address] Referring Physician Nephrology 10/09/23 [place] [address] [place] [address] Referring Physician Allergy and Immunology 10/09/23 Mary Hinds LPN Licensed Practical Nurse Family Medicine 02/23/24 03/11/24 Miranda Sears Referring Physician Oncology 09/01/18 documented as of this encounter
--- OUTSIDE RECORDS SUMMARY | 2025-01-31 07:54 | XMS_ITS | Encounter Summary ---
Author Organization [facility] Address [address] [facility] [place] [address] Care Team Providers Care Proc Tech Name Role Phone Nael Mendez MD Unavailable [phone] Nael Mendez MD 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 Provider [phone] Nohelia Machado DO Unavailable Unavailable Christopher Solomon MD Unavailable Unavailable Sandra Cole MD Unavailable [phone] Mary Hinds LPN Unavailable Encounter Details Date Type Department Care Team (Late st Contact Info) Description 02/20/2023 Abstract [facility] [address] [place] [address] Fab Clark MD [address] [place] [address] Social History Tobacco Use Types Packs/Day Years [...] on filedocumented in this encounter Care Teams Proc Tech Relationship Specialty Start Date End Date Nael Mendez MD 112 [facility] [address] [place] [address] (Fax) PCP - Aranza MIN 09/01/21 Nael Mendez MD [address] [place] [address] PCP - General Family Medicine 01/31/23 Nohelia Machado DO [address] [place] [address] Referring Physician Pulmonary Disease 10/09/23 [place] [address] [facility] [place] [address] Referring Physician Nephrology 10/09/23 [place] [address] [place] [address] Referring Physician Allergy and Immunology 10/09/23 Mary Hinds LPN Licensed Practical Nurse Family Medicine 02/23/24 03/11/24 Miranda Sears Referring Physician Oncology 09/01/18 documented as of this encounter
--- OUTSIDE RECORDS SUMMARY | 2025-01-31 07:54 | XMS_ITS | Encounter Summary ---
Author Organization [facility] Address [address] [place] [address] Care Team Providers Care Wildlife Forensic Geneticist Name Role Phone Nael Mendez MD Unavailable [phone] Nael Mendez MD 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 Provider [phone] Nohelia Machado DO Unavailable Unavailable Christopher Solomon MD Unavailable Unavailable Sandra Cole MD Unavailable [phone] Mary Hinds LPN Unavailable Encounter Details Date Type Department Care Team (Late st Contact Info) Description 02/20/2023 Abstract [facility] [address] [place] [address] Nael Mendez MD 112 [facility] 100 [place] [address] Social History Tobacco Use Types Packs/Day Years [...] on filedocumented in this encounter Care Teams Wildlife Forensic Geneticist Relationship Specialty Start Date End Date Nael Mendez MD [address] [place] [address] PCP - Aranza MIN 09/01/21 Nael Mendez MD [address] [facility] [address] [place] [address] PCP - General Family Medicine 01/31/23 Nohelia Machado DO [address] [place] [address] Referring Physician Pulmonary Disease 10/09/23 [place] [address] [facility] [place] [address] Referring Physician Nephrology 10/09/23 [place] [address] [place] [address] Referring Physician Allergy and Immunology 10/09/23 Mary Hinds LPN Licensed Practical Nurse Family Medicine 02/23/24 03/11/24 Miranda Sears Referring Physician Oncology 09/01/18 documented as of this encounter
--- OUTSIDE RECORDS SUMMARY | 2025-01-31 07:54 | XMS_ITS | Encounter Summary ---
Author Organization [facility] Address [address] [place] [address] Phone Care Team Providers Care Site Supervising Technical Operator Name Role Phone Nael Mendez MD 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 Provider Miranda Sears MD Unavailable Christopher Solomon MD Unavailable [phone] Sandra Cole MD Unavailable Encounter Details Date Type Department Care Team (Late st Contact Info) Description 12/13/2024 Scanned Document [facility] [address] [place] [address] Sandra Cole MD [address] [facility], [address] [place], [place] [id number] Social History Tobacco Use Types Packs/Day Years [...] AM EDT Office Visit [facility] [address] [facility] [address] [place] [address] Miranda Sears MD [address] [place] [address] [address] [place] [address] 02/17/2025 11:30 AM EDT Office Visit [facility] [address] [place] [address] [address] [place] [address] Christopher Solomon MD [address] [place] [address] [address] [place] [address] 07/11/2025 11:15 AM EST Office Visit [facility] [address] [place] [address] Sandra Cole MD [address] [facility], [facility] [address] [place] [address] 08/15/2025 10:40 AM EST Office Visit [facility] [address] [place] [address] [address] [place] [address] Miranda Sears MD [address] [place] [address] [address] [place] [address] documented as of this encounter Visit Diagnoses Not on filedocumented in this encounter Additional Health Concerns Assessment Noted Time A fall risk assessment has been complete d for the patient 10/19/2024 2:22 PM EST documented as of this encounter Care Teams Site Supervising Technical Operator Relationship Specialty Start Date End Date Nael Mendez MD [facility] [address] [place] [phone] PCP - General 06/18/18 Miranda Sears MD [address] [place] [address] [address] [place] [address] Consulting Physician Hematology and Oncology 08/13/23 Christopher Solomon MD [address] [place] [address] [address] [place] [address] Consulting Physician Nephrology 12/08/23 Sandra Cole MD [address] [facility], [facility] [address] [place] [address] Referring Physician Allergy and Immunology 06/24/24 documented as of this encounter
--- OUTSIDE RECORDS SUMMARY | 2025-01-31 07:54 | XMS_ITS | Clinical Summary ---
Author Organization [facility] Address [address] [place] [address] Phone Care Team Providers Care University Relations Recruiter Name Role Phone Nael Mendez MD 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 Provider Miranda Sears MD Unavailable Christopher Solomon MD Unavailable [phone] Sandra Cole MD Unavailable Allergies Active Allergy Reactions Criticality Noted Date Comments Capsaicin Diarrhea 01/05/2024 Dapsone Rash Low 08/04/2023 Levofloxacin GI Upset Low 02/05/2023 Prochlorperazine Other,Shortness of breath High 08/04/2023 anxiety, restlessness Sulfamethoxazole-Trimetho prim Hives,Itching,Chavo h Low 08/04/2023 Trimethoprim Other 12/03/2017 Voriconazole Other 08/04/2023 Sweating, insomnia, nausea. Medications potassium citrate 99 mg capsule Take 1 tablet by mouth once daily. Active albuterol 0.63 mg/3 mL nebulizer solution Inhale. 0 Active cetirizine (ZyrTEC) 10 mg tablet Take 1 tablet (10 mg) by mouth once daily. Active artificial tears, dextran-hypomel- glycerin, 0.1-0.3-0.2 % ophthalmic solution Administer into affected eye(s) 4 times a day as needed. 9 Active omeprazole (PriLOSEC) [address] capsule Take by mouth once daily. 6 Active ondansetron (Zofran) 8 mg tablet Take by mouth every 8 hours if needed. 9 Active oxyCODONE (Roxicodone) 5 mg immediate release tablet Take by mouth every 4 hours if needed. 9 Active magnesium gluconate 12.5 mg magne- sium (250 mg) tablet every 12 hours. Active gabapentin (Neurontin) 100 mg capsule Take 1 capsule (100 mg) by mouth 2 times a day. 4 Active lubricating eye drops (polyvinyl alcohol-povidon, PF,) ophthalmic solution Administer 1-2 drops into both eyes. Active calcitriol (Rocaltrol) 0.25 mcg capsuleIndicatio ns:Hyperparathyr oidism (Multi) TAKE 2 CAPSULES OVER THE WEEKENDS AND 1 CAPSULE THE OTHER DAYS 117 capsule 3 4 Active fluticasone propion-salmeter oL (Wixela Inhub) 500-50 mcg/dose diskus inhalerIndicatio ns:Asthma, unspecified asthma severity, unspecified whether complicated, unspecified whether persistent ([facility]) Inhale 1 puff 2 times a day. Rinse mouth with water after use to reduce aftertaste and incidence of candidiasis. Do not swallow. 180 each 2 4 Active cholecalciferol (Vitamin D3) 5,000 Units tablet Take 2 tablets (250 mcg) by mouth once daily. Active baclofen (Lioresal) 10 mg tablet Take 1 tablet (10 mg) by mouth 3 times a day. Active valsartan (Diovan) 160 mg tabletIndication s:Stage 3b chronic kidney disease (Multi),Essentia l hypertension,Hyp erparathyroidism , secondary (Multi),Diffuse large B-cell lymphoma, unspecified body region (Multi) Take 1 tablet (160 mg) by mouth once daily. 90 tablet 3 5 10/19/19 26 Active Active Problems Problem Noted Date Diagnosed Date Asthma 09/10/2023 Overview (09/10/2023): 09/2023 Previously managed by his primary care. Assessment & Plan (01/03/2025 10:56 AM EDT): ACT 19. No flares or exacerbations and Sx are well-controlled on his medications. He will continue Wixela and albuterol as needed. Assessment & Plan (07/07/2024 2:28 PM EST): ACT is 19. He is doing well from an asthma standpoint. He will continue the Wixela one inhalation twice a day. Assessment & Plan (01/07/2024 11:30 AM EDT): ACT is 19. Sx are controlled currently. [...] to see him back in 6 months Assessment & Plan (09/10/2023 8:46 AM EST): Patient states the cost of his Arnuity went up dramatically this year. He is unable to afford the $42 a month co-pay. Therefore, I am going to try to change him to a lower cost inhaler. I am also going to ask my staff to send him co-pay assistance through [employer]. According to the patient his primary care recommended albuterol 2 inhalations twice a day as a maintenance and then every 4 hours as needed, but I am concerned about him developing tolerance to the albuterol and not having his underlying inflammation treated with a maintenance medication. Therefore I am going to attempt to get a covered inhaled corticosteroid for maintenance. EDGAR (acute kidney injury) 08/04/2023 Benign essential HTN 08/04/2023 Chronic kidney insufficiency 08/04/2023 CKD (chronic kidney disease), stage III (Multi) 08/04/2023 CVID (common variable immunodeficiency) 08/04/20 23 Overview (01/02/2025): Started Gammagard infusions 2--24 at [facility]. Previously on HyQvia with side effects of abdominal bloating and pain at infusion sites. 09/2023 Current labs and treatment due to insurance issues. Last infusion was in July 2023. Started IVIG in 2018. At that time he received home health out of [place] to come to his home for administration. He would experience flulike symptoms with headache drainage and GI upset that would take him approximately a week to recover from. Therefore he discontinued treatment. He was then started on HyQvia around March 2021. He was changed to IVIG at [facility] due to cost. Assessment & Plan (01/03/2025 10:57 AM EDT): Infusions are going well with no SE or infections x6 months. He had a GI viral illness since that started with profuse diarrhea and emesis but is improving. He will continue his Gammagard infusions as scheduled with quarterly blood work. Assessment & Plan (07/07/2024 2:35 PM EST): He is tolerating his Gammagard well. Last IgG was 741. Cost is still an issue, but the patient understands that he has few options. He will continue his current treatment. He is due to for a level quarterly Assessment & Plan (01/07/2024 10:05 AM EDT): Infusions are going well with Tylenol pretreatment. I think pre and post IV hydration would be beneficial. Unfortunately due to insurance constraints the cost is out of control. Therefore, the patient is willing to suffer with the side effects. Is a very unfortunate situation for the patient. Continue Gammagard infusions at [facility]. He will maintain his current dose. His last level in October 2023 was a little low at 699. Nonetheless, the patient has not had any infections and therefore we will not increase his dose at this time. I would like to check it in 3 months time. Assessment & Plan (09/10/2023 8:44 AM EST): Unfortunately, this is an insurance nightmare. His benefits have changed. I am going to ask my staff to look into what the actual issue is. He is willing to go to IVIG monthly which is probably his best bet. Unfortunately he does live some distance away. We will try to coordinate care with [facility]. Due to his kidney disease I do not really feel that IV is the best option, but under the circumstances IV is better than nothing. 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) 08/04/2023 Orthostatic hypotension 08/04/2023 Senile nuclear sclerosis 08/04/2023 Thrombocytopenia 08/04/2023 Encounters Date Type Department Care Team Description 01/25/2025 Telephone [facility] [address] [facility] [address] [place] [id number] Miranda Sears MD Lymphoma symptoms 01/03/2025 10:45 AM EDT Office Visit [facility] [address] [facility] [address] [place] [address] Sandra Cole MD CVID (common variable immunodeficiency) (Primary Dx); Moderate persistent asthma without complication ([facility]) 01/03/2025 Travel 12/20/2024 Scanned Document [facility] [address] [facility] [address] [place] [address] Sandra Cole MD 12/15/2024 Scanned Document [facility] [address] [place] [address] Sandra Cole MD 12/15/2024 Scanned Document [facility] [address] [facility] [address] [place] [address] Sandra Cole MD 12/15/2024 Scanned Document [facility] [address] [place] [address] Scanning, Generic Provider 12/13/2024 Scanned Document [facility] [address] [place] [phone] Sandra Cole MD from Last 3 Months Immunizations Immunization Administration Dates Next Due Flu vaccine (IIV4), preservative free *Check age /dose* 08/18/2022 MMR vaccine, subcutaneous (MMR II) 02/08/2020 Pfizer COVID-19 vaccine, biv alent, age 12 years and older (30 mcg/0.3 mL) 08/27/2022 Pfizer Newman Cap SARS-CoV-2 01/01/2022 Social History Tobacco Use Types Packs/Day Years Used Date Smoking Tobacco: Never Passive Smoke Exposure: Past Smokeless Tobacco: Never Tobacco Cessation:Counseling Given: Not Answered Alcohol Use Standard Drinks/Week Comments Never 0 [...] suspected to have Coronavirus/COVID-19? No / Unsure 01/03/2025 10:21 AM EDT Last Filed Vital Signs Vital Sign Reading Time Taken Comments Blood Pressure 130/62 01/03/2025 10:34 AM EDT Pulse 74 10/19/2024 2:36 PM EST Temperature 35.6 C (96.1 F) 08/16/2024 10:24 AM EST Respiratory Rate 18 08/16/2024 10:24 AM EST Oxygen Saturation 94% 08/16/2024 10:24 AM EST Inhaled Oxygen Concentration - - Weight 123 kg (271 lb) 01/03/2025 10:34 AM EDT Height 182.9 cm (6') 01/03/2025 10:34 AM EDT Body Mass Index 36.75 01/03/2025 10:34 AM EDT Plan of Treatment Upcoming Encounters Date Type Department Care Team (Late st Contact Info) Description 02/10/2025 9:00 AM EDT Office Visit [facility] [address] [place] [address] [address] [place] [address] Miranda Sears MD [address] [place] [address] [address] [place] [address] 02/17/2025 11:30 AM EDT Office Visit [facility] [address] [place] [address] [address] [place] [address] Christopher Solomon MD [address] [place] [address] [address] [place] [address] 07/11/2025 11:15 AM EST Office Visit [facility] [address] [facility] [address] [place] [phone] Sandra Cole MD [address] [facility] [address] [place] [address] 08/15/2025 10:40 AM EST Office Visit [facility] [address] [place] [address] [address] [place] [address] Miranda Sears MD [address] [place] [address] [address] [place] [address] Health Maintenance Due Date Last Done Comments CT Colonography 1960 FIT-DNA (Cologuard) 1960 FIT 1960 HIV Screening 1960 Medicare Annual Wellness Visit (AWV) 1960 Sigmoidoscopy 1960 CKD: Urine Protein Screening 11/16/1979 Hepatitis A Vaccines (1 of 2 - Risk 2-dose series) 11/16/1979 Pneumococcal Vaccine (1 of 2 - PCV) 11/16/1979 Zoster Vaccines (1 of 2) 11/16/1979 DTaP/Tdap/Td Vaccines (1 - Tdap) 1982 Hepatitis B Vaccines (1 of 3 - Risk 3-dose series) 2020 RSV High Risk: (Elderly (60+) or Population) (1 - Risk 60-74 years 1-dose series) 2020 Diabetes Screening 07/02/2022 07/02/2019, 0 04/02/2019, 03/05/2019, Additional history exists Lipid Panel 12/23/2022 12/23/2017 COVID-19 Vaccine ( season) 2024 06/14/2023, 08/27/2022, 01/01/2022, Additional history exists Influenza Vaccine (Season Ended) 2025 06/14/2023, 08/18/2022 Colonoscopy 06/13/2032 06/13/2022, 06/13/2022 Colorectal Cancer Screening 06/13/2032 Hepatitis C Screening Completed 11/06/2018 , 12/11/2017, 10/28/2017 MMR Vaccines Completed 02/08/2020 Irritable Bowel Syndrome Discontinued 06/13/2022, 03/02 HIB Vaccines Aged Out No longer eligi ble based on patient's age to complete this topic HPV Vaccines Aged Out No longer eligi ble based on patient's age to complete this topic IPV Vaccines Aged Out No longer eligi ble based on patient's age to complete this topic Meningococcal Vaccine Aged Out No kenadll gemini eligible based on patient's age to complete this topic Rotavirus Vaccines Aged Out No longer eligible based on patient's age to complete this topic Procedures Procedure Name Priority Date/Time Associated Diagnosis Comments POCT GLUCOSE Routine 07/02/2019 8:01 AM EDT AUTO TRANSPLANT VIRAL PANEL Routine 11/06/2018 12:49 PM EST BRONCHOSCOPY Routine 03/23/2018 1:00 PM EDT LIPID PANEL Routine 12/23/2017 9:39 AM EDT from Last 3 Months or Most Recently Relevant to Health Maintenance Results * POCT GLUCOSE (07/02/2019 8:01 AM EDT) POCT Glucose 93 74 - 99 mg/dL [facility] 07/02/2019 8:01 AM EDT 07/02/2019 9:43 AM EDT Pieter Saleem MD LAB POINT OF CAR E TEST DOCKED DEVICE UNSOLICITED RESULTS Final Result [facility] * (ABNORMAL) Auto Transplant Viral Panel (11/06/2018 12:49 PM EST) CMV IgG 9.1(A) INDEX [facility] Comment: RESULTS WERE OBTAINED WITH THE IMMULITE CMV IGG CHEMILUMINESCENT METHOD. THE MAGNITUDE OF THE MEASURED RESULT, ABOVE THE CUT-OFF, IS NOT INDICATIVE OF THE TOTAL AMOUNT OF ANTIBODY PRESENT. NEGATIVE: < 0.9 EQUIVOCAL: 0.9 - 1.0 POSITIVE: >=1.1 CMV IgM NEGATIVE NEGATIVE [facility] Comment: RESULTS WERE OBTAINED WITH THE IMMULITE 2000 CMV IGM CHEMILUMINESCENT METHOD AND CANNOT BE INTERCHANGED WITH OTHER TESTING METHODS. Immunodeficiency may impair a CMV specific IgM response. Samples collected early in CMV infection may not demonstrate IgM sera conversion. Hepatitis B Surface Ab 311.9 <10 mIU/mL [facility] Comment: INTERPRETIVE CRITERIA: <10 mIU/mL....NONREACTIVE >=10 mIU/mL...REACTIVE . Patients receiving more than 5 mg/day of biotin may have interference in test results. A sample should be taken no sooner than eight hours after previous dose. Contact the testing laboratory for additional information. HSV 1 IgG 3.1(A) INDEX [facility] Comment: REF VALUES NEGATIVE <0.9 EQUIVOCAL >=0.90 <=1.10 POSITIVE >1.10 HSV 2 IgG 1.7(A) INDEX [facility] Comment: POTENTIAL FOR CROSS-REACTIVITY BETWEEN HSV I AND HSV II EXISTS. REF VALUES NEGATIVE <0.9 EQUIVOCAL >=0.90 <=1.10 POSITIVE >1.10 Varicella IgG POSITIVE NEGATIVE [facility] Comment: INTERPRETATIVE COMMENT NEGATIVE: No IgG antibodies specific to VZV detected. It is likely that the patient has not had a previous exposure to VZV through infection or vaccination. Alternatively, the patient may have been exposed to VZV but a failure to respond may indicate immunodeficiency. EQUIVOCAL:Equivocal results; obtain additional sample for retesting. POSITIVE: IgG antibody to VZV detected. This may indicate that the patient was exposed to VZV through infection or vaccination. The interpretation of serological tests should take into account the immunological status of the patient. Test results for patients, including immunocompromised patients, neonates, and pediatric patients, reflect their capacity to respond immunologically to the virus as well as their exposure to the pathogen. Patients treated with IVIG may demonstrate altered results in serological assays. Hep B Core IgM NON-REACTIVE NONREACTIVE [facility] Comment: Patients receiving more than 5 mg/day of biotin may have interference in test results. A sample should be taken no sooner than eight hours after previous dose. Contact the testing laboratory for additional information. Hepatitis C Ab NON-REACTIVE NONREACTIVE [facility] Comment: Patients receiving more than 5 mg/day of biotin may have interference in test results. A sample should be taken no sooner than eight hours after previous dose. Contact the testing laboratory for additional information. Hepatitis B Surface Ag NONREACTIVE NONREACTIVE [facility] Comment: Patients receiving more than 5 mg/day of biotin may have interference in test results. A sample should be taken no sooner than eight hours after previous dose. Contact the testing laboratory for additional information. HIV 1 and 2 Screen NON REACTIVE NONREACTIVE [facility] Comment: HIV Ag/Ab screen is performed using the Siemens Advia Centaur HIV Ag/Ab Combo assay which detects the presence of HIV p24 antigen as well as antibodies to HIV-1 (Group M and O) and HIV-2. SYPHILIS IGG - DATA CONVERSION NON REACTIVE NONREACTIVE [facility] Comment: Patients receiving more than 5 mg/day of biotin may have interference in test results. A sample should be taken no sooner than eight hours after previous dose. Contact [phone] for additional information. 11/06/2018 12:4 9 PM EST 11/06/2018 1:54 PM EST us Pieter Saleem MD LAB BLOOD ORDERABLES Fin al Result [facility] * Bronchoscopy (03/23/2018 1:00 PM EDT) Anatomical Region Laterality Modality Endoscopy 03/23/2018 1:00 PM EDT Narrative 08/19/2022 11:51 AM EST Patient Name: Gabriel Danielle Procedure Date: 03/23/2018 1:00 PM Date of : 1960 Room: [place] Procedure Room 7 Attending MD: Dante Murphy DO, [id number] Procedure: Bronchoscopy Indications: Bilateral atelectasis Providers: Dante Murphy DO (Doctor), Gabriel Mcghee RN (Nurse), Denny Montalvo RN (Nurse), Pat Love MD (Fellow) Referring MD: Katie Jeffries MD (Referring MD) Provider Care Team: Katie Jeffries MD (Requesting Physician) Medicines: Lidocaine 4% Nebulizer 3 mL, Midazolam mg IV, Fentanyl mcg IV, Lidocaine 2% mg, Cetacaine [place] 1 dose, Fentanyl IV 125 mcgs, Lidocaine 2% Nebulizer 3 mLs, Versed IV 6 mgs Complications: No immediate complications Procedure: Pre-Anesthesia Assessment: - A History and Physical has been performed. Patient meds and allergies have been reviewed. The risks and benefits of the procedure and the sedation options and risks were discussed with the patient. All questions were answered and informed consent was obtained. Patient identification and proposed procedure were verified prior to the procedure by the physician and the nurse in the procedure room at 09:10 AM. Mental Status Examination: normal. Airway Examination: normal oropharyngeal airway. Respiratory Examination: bibasilar crackles. CV Examination: normal. ASA Grade Assessment: III - A patient with severe systemic disease. After reviewing the risks and benefits, the patient was deemed in satisfactory condition to undergo the procedure. The anesthesia plan was to use monitored anesthesia care (MAC). Immediately prior to administration of medications, the patient was re-assessed for adequacy to receive sedatives. The heart rate, respiratory rate, oxygen saturations, blood pressure, adequacy of pulmonary ventilation, and response to care were monitored throughout the procedure. The physical status of the patient was re-assessed after the procedure. After obtaining informed consent, the therapeutic bronchoscope was introduced through the mouth and advanced to the tracheobronchial tree of both lungs. The procedure was accomplished without difficulty. The patient tolerated the procedure well. The total duration of the procedure was 10 minutes. Findings: The oropharynx appears normal. The larynx appears normal. The vocal cords appear normal. The subglottic space is normal. The trachea is of normal caliber. The helga is sharp. The tracheobronchial tree was examined to at least the first subsegmental level. Bronchial mucosa and anatomy are normal; there are no endobronchial lesions, and no secretions. Copious, white, thick secretions were found throughout the tracheobronchial tree. Bronchoalveolar lavage was performed in the LLL anterior medial segments (B7 & B8) of the lung and sent for cell count, bacterial culture, viral smears & culture, fungal & AFB analysis and cytology for immunocompromised host protocol. 120 mL of fluid were instilled. 50 mL were returned. The return was cellular. Moderate Sedation: Moderate (conscious) sedation was personally administered by the endoscopist. The following parameters were monitored: oxygen saturation, heart rate, blood pressure, and response to care. Total physician intraservice time was 10 minutes. Estimated Blood Loss: Estimated blood loss was minimal. Impression: - Bilateral atelectasis - The examination was normal. - Bronchoalveolar lavage was performed. Recommendation: - The patient will be observed post-procedure, until all discharge criteria are met. - Await BAL results. - Follow up with referring physician. Procedure Code(s): --- Professional --- 75562, Bronchoscopy, rigid or flexible, including fluoroscopic guidance, when performed; with bronchial alveolar lavage Diagnosis Code(s): --- Professional --- J98.11, [employer]te[employer] CPT copyright 2020 [employer]. All rights reserved. The codes documented in this report are preliminary and upon sock and stocking ironer review may be revised to meet current compliance requirements. Attending Participation: I was present and participated during the entire procedure, including non-rivera portions. Dante Murphy DO 03/23/2018 3:17:37 PM This report has been signed electronically. Number of Addenda: 0 Note Initiated On: 03/23/2018 8:27 AM Patient Profile: This is a 57 year old male. Refer to note in patient chart for documentation of history and physical. The attending physician independently verified the history and physical at 9:11AM on 03/23/18. The patient's ECOG performance status grade is 1 - restricted in physically strenuous activity but ambulatory and able to carry out work of a light or sedentary nature. Procedure Note Dante Murphy DO - 10/31/2022 Patient Name: Gabriel Danielle Procedure Date: 03/23/2018 1:00 PM Date of : 1960 Room: [place] Procedure Room 7 Attending MD: Dante Murphy DO, [id number] Procedure: Bronchoscopy Indications: Bilateral atelectasis Providers: Dante Murphy DO (Doctor), Gabriel Mcghee RN (Nurse), Denny Montalvo RN (Nurse), Pat Love MD (Fellow) Referring MD: Katie Jeffries MD (Referring MD) Provider Care Team: Katie Jeffries MD (Requesting Physician) Medicines: Lidocaine 4% Nebulizer 3 mL, Midazolam mg IV,Fentanyl mcg IV, Lidocaine 2% mg, Cetacaine [place] 1 dose, Fentanyl IV 125 mcgs, Lidocaine 2% Nebulizer 3 mLs, Versed IV 6 mgs Complications: No immediate complications Procedure: Pre-Anesthesia Assessment: - A History and Physical has been performed.Patient meds and allergies have been reviewed. The risksand benefits of the procedure and the sedation optionsand risks were discussed with the patient. Allquestions were answered and informed consent was obtained. Patient identification and proposed procedure were verified prior to the procedure by the physicianand the nurse in the procedure room at 09:10 AM. Mental Status Examination: normal. Airway Examination:normal oropharyngeal airway. Respiratory Examination: bibasilar crackles. CV Examination: normal. ASAGrade Assessment: III - A patient with severe systemic disease. After reviewing the risks and benefits,the patient was deemed in satisfactory condition to undergo the procedure. The anesthesia plan was touse monitored anesthesia care (MAC). Immediately priorto administration of medications, the patient was re-assessed for adequacy to receive sedatives. The heart rate, respiratory rate, oxygen saturations, blood pressure, adequacy of pulmonary ventilation,and response to care were monitored throughout the procedure. The physical status of the patient was re-assessed after the procedure. After obtaining informed consent, the therapeutic bronchoscope was introduced through the mouth and advanced to the tracheobronchial tree of bothlungs. The procedure was accomplished without difficulty.The patient tolerated the procedure well. The total duration of the procedure was 10 minutes. Findings: The oropharynx appears normal. The larynx appears normal. The vocal cords appear normal. The subglottic space is normal. The trachea isof normal caliber. The helga is sharp. The tracheobronchial tree was examined to at least the first subsegmental level. Bronchial mucosaand anatomy are normal; there are no endobronchial lesions, and no secretions. Copious, white, thick secretions were found throughoutthe tracheobronchial tree. Bronchoalveolar lavage was performed in the LLL anterior medialsegments (B7 & B8) of the lung and sent for cell count, bacterial culture,viral smears & culture, fungal & AFB analysis and cytology for immunocompromised host protocol. 120 mL of fluid were instilled. 50mL were returned. The return was cellular. Moderate Sedation: Moderate (conscious) sedation was personally administered by the endoscopist. The following parameters were monitored: oxygensaturation, heart rate, blood pressure, and response to care. Total physician intraservice time was 10 minutes. Estimated Blood Loss: Estimated blood loss was minimal. Impression: - Bilateral atelectasis - The examination was normal. - Bronchoalveolar lavage was performed. Recommendation: - The patient will be observed post-procedure,until all discharge criteria are met. - Await BAL results. - Follow up with referring physician. Procedure Code(s): --- Professional --- 92311, Bronchoscopy, rigid or flexible, including fluoroscopic guidance, when performed; withbronchial alveolar lavage Diagnosis Code(s): --- Professional --- J98.11, Atelectasis CPT copyright 2020 [employer]. All rights reserved. The codes documented in this report are preliminary and upon sock and stocking ironer reviewmay be revised to meet current compliance requirements. Attending Participation: I was present and participated during the entire procedure, including non-rievra portions. Dante Murphy DO 03/23/2018 3:17:37 PM This report has been signed electronically. Number of Addenda: 0 Note Initiated On: 03/23/2018 8:27 AM Patient Profile: This is a 57 year old male. Refer to note in patient chart for documentation of history and physical. The attending physician independently verified the history and physical at 9:11AM on 03/23/18. The patient's ECOG performance status grade is 1 - restricted in physically strenuous activity but ambulatory and able to carry outwork of a light or sedentary nature. us Katie Jeffries MD ENDOSCOPY PROCEDURE ORDERABLES Edited Result - Final * (ABNORMAL) Lipid Panel (12/23/2017 9:39 AM EDT) Cholesterol 274(H) 0 - 199 mg/dL [facility] Comment: . AGE DESIRABLE BORDERLINE HIGH HIGH 0-19 Y 0 - 169 170 - 199 >/= 200 20-24 Y 0 - 189 190 - 224 >/= 225 >24 Y 0 - 199 200 - 239 >/= 240 All ranges are based on fasting samples. Specific therapeutic targets will vary based on patient-specific cardiac risk. . Pediatric guidelines reference:Pediatrics 2011, 128(S5). Adult guidelines reference: NCEP ATPIII Guidelines, JOE 2001, 258:2486-97 . Venipuncture immediately after or during the administration of Metamizole may lead to falsely low results. Testing should be performed immediately prior to Metamizole dosing. HDL 49.1 mg/dL [facility] Comment: . AGE VERY LOW LOW NORMAL HIGH 0-19 Y < 35 < 40 40-45 ---- 20-24 Y ---- < 40 >45 ---- >24 Y ---- < 40 40-60 >60 . Cholesterol/HDL Ratio 5.6(A) [facility] Comment: REF VALUES DESIRABLE < 3.4 HIGH RISK > 5.0 LDL 193(H) 0 - 99 mg/dL [facility] Comment: . NEAR BORD AGE DESIRABLE OPTIMAL HIGH HIGH VERY HIGH 0-19 Y 0 - 109 --- 110-129 >/= 130 ---- 20-24 Y 0 - 119 --- 120-159 >/= 160 ---- >24 Y 0 - 99 100-129 130-159 160-189 >/=190 . VLDL 32 0 - 40 mg/dL [facility] Triglycerides 159(H) 0 - 149 mg/dL [facility] Comment: . AGE DESIRABLE BORDERLINE HIGH HIGH VERY HIGH 0 D-90 D 19 - 174 ---- ---- ---- 91 D- 9 Y 0 - 74 75 - 99 >/= 100 ---- 10-19 Y 0 - 89 90 - 129 >/= 130 ---- 20-24 Y 0 - 114 115 - 149 >/= 150 ---- >24 Y 0 - 149 150 - 199 200- 499 >/= 500 . Venipuncture immediately after or during the administration of Metamizole may lead to falsely low results. Testing should be performed immediately prior to Metamizole dosing. 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 [employer] BLOOD ORDERABLES nal Result [facility] from Last 3 Months or Most Recently Relevant to Health Maintenance Insurance ANTHEM MEDICARE ADVANTAGE ANTHEM MEDICARE ADVANTAGE Care Teams University Relations Recruiter Relationship Specialty Start Date End Date Nael Mendez MD [address] [place] [phone] PCP - General 06/18/18 [place] [address] [facility] [address] [place], [place] [id number] Consulting Physician Hematology and Oncology 08/13/23 [place] [address] [facility] [address] [place], [place] [phone] Consulting Physician Nephrology 12/08/23 Sandra Cole MD [address] [facility], [facility] [address] [place], [place] [phone] Referring Physician Allergy and Immunology 06/24/24
--- OUTSIDE RECORDS SUMMARY | 2025-01-31 07:54 | XMS_ITS | Encounter Summary ---
Author Organization [facility] Address [address] [place] [address] Phone Care Team Providers Care Char House Supervisor Name Role Phone Nael Mendez MD 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 Provider Miranda Sears MD Unavailable Christopher Solomon MD Unavailable [phone] Sandra Cole MD Unavailable Reason for Visit * Reason Onset Date Comments Lymphoma symptoms 01/25/2025 Encounter Details Date Type Department Care Team (Late st Contact Info) Description 01/25/2025 Telephone [facility] [address] [address] [place] [address] Miranda Sears MD [id number] [place] [address] [address] [place], [place] [id number] Lymphoma symptoms Social History Tobacco Use Types Packs/Day Years [...] No / Unsure 01/03/2025 10:21 AM EDT documented as of this encounter Miscellaneous Notes * Telephone Encounter - Tea Lamoda, RN - 01/25/2025 12:02 PM EDT Spoke with the patient. Provided update from Dr. Sears. States he gets lab work done at [facility] and is asking for lab reqs to be faxed to the [facility] lab. Then this hospital faxes the results to Dr. Sears's office. Lab orders pended per Dr. Sears's response. Pt verbalized understanding and had no further questions or concerns at this time. [facility] lab fax number: [phone]. Lab reqs for CBCD, CMP, LDH faxed to this number and provided Dr. Sears's office fax for lab to fax results to. * Telephone Encounter - Ashley Dugan - 01/25/2025 9:29 AM EDT Patient scheduled follow up with Dr. Sears due to new symptoms. Asking if she might want blood workprior? Symptoms: gets sob easily. Sweating.. Cold sweats at night. Swelling. If talks too much, gets hoarse. These were all symptoms when diagnosed with lymphoma last time. Also, having a lot of problems with back. Going to go to a chiropractor for this. Patient noting: Stomach flu end of October- just got over last week. Not sure if this is part of it? documented in this encounter Plan of Treatment Upcoming Encounters Date Type Department Care Team (Late st Contact Info) Description 02/10/2025 9:00 AM EDT Office Visit [facility] [address] [place] [address] Dr [address] [place] [address] Miranda Sears MD [address] [place] [address] Dr [address] [place] [address] 02/17/2025 11:30 AM EDT Office Visit [facility] [address] [place] [address] [address] [place] [address] Christopher Solomon MD [address] [place] [address] [address] [place] [address] 07/11/2025 11:15 AM EST Office Visit [facility][note 3] [address] [place] [address] Sandra Cole MD [address] [facility][note 3], [facility] [address] [place] [address] 08/15/2025 10:40 AM EST Office Visit [facility] [address] [place] [address] Dr [address] [place] [phone] Miranda Sears MD [address] [place] [address] Dr [address] [place] [address] Scheduled Orders Name Type Priority Associated Diagnoses Orde r Schedule CBC and Auto Differential Lab Routine 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, unspecified laterality (Multi) Expected: 01/25/2025 (Approximate), Expires: 01/25/2026 Comprehensive Metabolic Panel Lab Routine 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, unspecified laterality (Multi) Expected: 01/25/2025 (Approximate), Expires: 01/25/2026 Lactate dehydrogenase Lab Routine 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, unspecified laterality (Multi) Expected: 01/25/2025 (Approximate), Expires: 01/25/2026 documented as of this encounter Visit Diagnoses Diagnosis 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, unspecified laterality (Multi) documented in this encounter Additional Health Concerns Assessment Noted Time A fall risk assessment has been complete d for the patient 10/19/2024 2:22 PM EST documented as of this encounter Care Teams Char House Supervisor Relationship Specialty Start Date End Date Nael Mendez MD [address] [place] [phone] PCP - General 06/18/18 Miranda Sears MD [address] [place] [address] [address] [place] [address] Consulting Physician Hematology and Oncology 08/13/23 Christopher Solomon MD [address] [place] [address] [address] [place] [address] Consulting Physician Nephrology 12/08/23 Sandra Cole MD [address] [facility][note 3], [address] [place] [address] Referring Physician Allergy and Immunology 06/24/24 documented as of this encounter
--- OUTSIDE RECORDS SUMMARY | 2025-01-31 07:54 | XMS_ITS | Encounter Summary ---
Author Organization [facility] Address [address] [place] [address] Care Team Providers Care Acid Strength Inspector Name Role Phone Nael Mendez MD Unavailable [phone] Nael Mendez MD 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 Provider [phone] Nohelia Machado DO Unavailable Unavailable Christopher Solomon MD Unavailable Unavailable Sandra Cole MD Unavailable [phone] Mary Hinds LPN Unavailable Encounter Details Date Type Department Care Team (Late st Contact Info) Description 02/21/2023 Abstract [facility] [address] [place] [address] Fab Clark MD [address] [place] [address] Social History Tobacco Use Types Packs/Day Years [...] on filedocumented in this encounter Care Teams Acid Strength Inspector Relationship Specialty Start Date End Date Nael Mendez MD [address] [facility] [address] [place] [address] (Fax) PCP - Aranza MIN 09/01/21 Nael Mendez MD [address] [place] [address] PCP - General Family Medicine 01/31/23 Nohelia Machado DO [address] [place] [address] Referring Physician Pulmonary Disease 10/09/23 [place] [address] [facility] [address] Referring Physician Nephrology 10/09/23 [place] [address] [place] [address] Referring Physician Allergy and Immunology 10/09/23 Mary Hinds LPN Licensed Practical Nurse Family Medicine 02/23/24 03/11/24 Miranda Sears Referring Physician Oncology 09/01/18 documented as of this encounter
--- OUTSIDE RECORDS SUMMARY | 2025-01-31 07:54 | XMS_ITS | Encounter Summary ---
Author Organization [facility] Address [address] [place] [address] Phone Care Team Providers Care Beverage Host Name Role Phone Nael Mendez MD 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 Provider Miranda Sears MD Unavailable Christopher Solomon MD Unavailable [phone] Sandra Cole MD Unavailable [phone] Encounter Details Date Type Department Care Team (Late st Contact Info) Description 03/06/2022 Orders Only [facility] [address] [place] [address] Conversion, Onbase Social History Tobacco Use Types [...] Description 02/10/2025 9:00 AM EDT Office Visit [facility] [address] [facility] [address] [place] [phone] Miranda Sears MD [address] [place] [address] Dr [address] [place] [phone] 02/17/2025 11:30 AM EDT Office Visit [facility] [address] [facility] [address] [place] [address] Christopher Solomon MD [address] [place] [address] [address] [place] [address] 07/11/2025 11:15 AM EST Office Visit [facility] [address] [facility] [address] [place] [address] Sandra Cole MD [address] [facility], [facility] [address] [place] [address] 08/15/2025 10:40 AM EST Office Visit [facility] [address] [place] [address] [address] [place] [address] Miranda Sears MD [address] [place] [address] [address] [place] [address] Scheduled Orders Name Type Priority Associated Diagnoses Orde r Schedule OUTSIDE LAB SCAN Lab Ordered: 03/06/2022 documented as of this encounter Visit Diagnoses Not on filedocumented in this encounter Care Teams Beverage Host Relationship Specialty Start Date End Date Nael Mendez MD [address] [place] [address] PCP - General 06/18/18 Miranda Sears MD [address] [place] [address] [address] [place] [address] Consulting Physician Hematology and Oncology 08/13/23 Christopher Solomon MD [address] [place] [address] [address] [place] [address] Consulting Physician Nephrology 12/08/23 Sandra Cole MD [address] [facility], [facility] [address] [place] [address] Referring Physician Allergy and Immunology 06/24/24 documented as of this encounter
[2025-01-31 08:13] LABS: Basophils Percent Auto 0.2 % (0.2-2.0); Eosinophils Absolute Auto 0.3 10^3/uL (0.0-0.7); Hematocrit 40.5 % (42.0-54.0); Hemoglobin 13.1 g/dL (14.0-18.0); Immature Granulocytes Abs Auto 0.13 10^3/uL (0.00-0.03); Immature Granulocytes Pct Auto 2.2 % (0.0-0.5); Lymphocytes Absolute Auto 1.7 10^3/uL (1.2-3.8); Lymphocytes Percent Auto 28.8 % (20.5-60.0); Mean Corpuscular HGB Conc 32.3 g/dL (29.9-35.2); Mean Corpuscular Hemoglobin 27.3 pg (25.9-34.0); Mean Corpuscular Volume 84.4 fL (80.0-94.0); Monocytes Absolute Auto 0.4 10^3/uL (0.3-0.8); Monocytes Percent Auto 7.2 % (1.7-12.0); Neutrophils Absolute Auto 3.3 10^3/uL (1.4-6.5); Neutrophils Percent Auto 56.6 % (43.0-75.0); Platelet Count 164 10^3/uL (150-450); Red Cell Distribution Width 15.5 % (11.0-15.0); White Blood Count 5.8 10^3/uL (4.0-11.0)
[2025-01-31 09:02] LABS: Alanine Aminotransferase 51 U/L (16-63); Albumin Level 3.3 g/dL (3.4-5.0); Alkaline Phosphatase 103 U/L (46-116); Anion Gap 12.1; Aspartate Amino Transferase 28 U/L (15-37); BUN Creatinine Ratio 16.6; Bilirubin Total 0.3 mg/dL (0.2-1.0); Calcium 9.8 mg/dL (8.5-10.1); Carbon Dioxide 30.5 mmol/L (21.0-32.0); Chloride 109 mmol/L (98-107); Estimated GFR (African America 50 (>=60 mL/min/1.73m^2); Estimated GFR (Non-African Ame 41 (>=60 mL/min/1.73m^2); Globulin 3.3 g/dL; Glucose 108 mg/dL (74-106); Lactate Dehydrogenase 207 U/L (85-227); Potassium 4.6 mmol/L (3.5-5.1); Sodium 147 mmol/L (136-145); Total Protein 6.6 g/dL (6.4-8.2)
== END 2025-01-31 07:50 | disposition home or self-care (01) ==
LOC: LAB 07:51
PROVIDERS: PCP Family Medicine
DX: C79.00 Secondary malignant neoplasm of unspecified kidney and renal pelvis (principal)
CPT/HCPCS: 36415; 80053; 83615; 85025

== ENCOUNTER 2025-02-09 07:32 | Outpatient (RCR) | payer MEDICARE, SELFPAY ==
[2025-02-09 08:40] VITALS: BP 126/84; PULSE 95; TEMP 36.4; O2SAT 96
[2025-02-09] MEDS: GLY IV (08:51)
[2025-02-09] MEDS: IMMUN GLOB IV (08:51)
[2025-02-09] MEDS: IGA OV50 IV (08:51)
[2025-02-09] MEDS: 0.9 % SODIUM CHLORIDE 250 ML 10 ML IV (09:00)
--- NOTE | 2025-02-09 10:45 | PC.NURSE ---
gammunex infused. remainder of ns flush began. tolerated well without any s/s of reaction
--- NOTE | 2025-02-09 11:00 | PC.NURSE ---
1100 ns infused. tolerated well. iv dc'd catheter intact. cottonball and bandaid applied. released ambulatory
== END 2025-02-09 14:10 | disposition home or self-care (01) ==
LOC: INF 07:32
PROVIDERS: PCP Family Medicine
DX: D83.9 Common variable immunodeficiency, unspecified (principal); D80.1 Nonfamilial hypogammaglobulinemia
CPT/HCPCS: 96365; 96366; J1569

== ENCOUNTER 2025-03-09 07:30 | Outpatient (RCR) | payer MEDICARE, SELFPAY ==
[2025-03-09] MEDS: 0.9 % SODIUM CHLORIDE 250 ML 750 ML IV (09:00)
[2025-03-09] MEDS: IGA OV50 IV (09:10)
[2025-03-09] MEDS: GLY IV (09:10)
[2025-03-09] MEDS: IMMUN GLOB IV (09:10)
[2025-03-10 04:07] LABS: Immunoglobulin G, Qn 766 mg/dL (603-1613)
== END 2025-03-31 23:59 | disposition home or self-care (01) ==
LOC: INF 07:30
PROVIDERS: PCP Family Medicine
DX: D83.9 Common variable immunodeficiency, unspecified (principal); D80.1 Nonfamilial hypogammaglobulinemia
CPT/HCPCS: 36415; 82784; 96365; J1569

== ENCOUNTER 2025-04-06 07:55 | Outpatient (RCR) | payer MEDICARE, SELFPAY ==
[2025-04-06 08:45] VITALS: BP 121/76; PULSE 88; TEMP 35.9; O2SAT 96
[2025-04-06] MEDS: [UNRECOGNIZED DRUG - OTHER] IV (09:05)
[2025-04-06] MEDS: IMMUNE GLOBULIN IV (09:05)
[2025-04-06] MEDS: 0.9 % SODIUM CHLORIDE 250 ML 1000 ML IV (09:10)
== END 2025-05-01 23:59 | disposition home or self-care (01) ==
LOC: INF 07:55
PROVIDERS: PCP Family Medicine
DX: D80.1 Nonfamilial hypogammaglobulinemia (principal); D83.9 Common variable immunodeficiency, unspecified
CPT/HCPCS: 96365; 96366; J1569

== ENCOUNTER 2025-05-04 08:38 | Outpatient (RCR) | payer MEDICARE, SELFPAY ==
[2025-05-04 08:35] VITALS: BP 122/73; PULSE 76; TEMP 36.4; O2SAT 94
[2025-05-04] MEDS: [UNRECOGNIZED DRUG - OTHER] IV (09:04)
[2025-05-04] MEDS: IMMUNE GLOBULIN IV (09:04)
[2025-05-04] MEDS: 0.9 % SODIUM CHLORIDE 250 ML 20 ML IV (09:04)
--- NOTE | 2025-05-04 09:06 | PC.NURSE ---
IV Gammagard initiated at this time. Pt. given water. Denies c/o or needs.
--- NOTE | 2025-05-04 10:35 | PC.NURSE ---
1029: Pt. completed infusion without s&s of adverse reaction. IV NS infusing at this time. Denies needs.
== END 2025-05-31 23:59 | disposition home or self-care (01) ==
LOC: INF 08:38
PROVIDERS: PCP Family Medicine
DX: D80.1 Nonfamilial hypogammaglobulinemia (principal); D83.9 Common variable immunodeficiency, unspecified
CPT/HCPCS: 96365; J1569

== ENCOUNTER 2025-06-01 08:48 | Outpatient (RCR) | payer MEDICARE, SELFPAY ==
[2025-06-01 09:11] LABS: Anion Gap 12.4; Blood Urea Nitrogen 27.0 mg/dL (7.0-18.0); Calcium 9.6 mg/dL (8.5-10.1); Carbon Dioxide 28.9 mmol/L (21.0-32.0); Chloride 106 mmol/L (98-107); Estimated GFR (African America 46 (>=60 mL/min/1.73m^2); Estimated GFR (Non-African Ame 38 (>=60 mL/min/1.73m^2); Glucose 146 mg/dL (74-106); Potassium 4.3 mmol/L (3.5-5.1); Sodium 143 mmol/L (136-145)
== END 2025-07-01 23:59 | disposition home or self-care (01) ==
LOC: INF 08:48
PROVIDERS: PCP Family Medicine; Visit Provider Family Medicine
DX: N18.32 Chronic kidney disease, stage 3b (principal)
CPT/HCPCS: 80048

== ENCOUNTER 2025-06-29 08:40 | Outpatient (RCR) | payer MEDICARE, SELFPAY ==
[2025-03-09 09:04] VITALS: BP 130/80; PULSE 87; TEMP 36.4; O2SAT 97
[2025-06-01 08:37] VITALS: BP 112/75; PULSE 87; TEMP 36.4; O2SAT 93
[2025-06-01] MEDS: 0.9 % SODIUM CHLORIDE 250 ML 10 ML IV (08:45)
[2025-06-01] MEDS: IGA OV50 IV (09:03)
[2025-06-01] MEDS: IMMUN GLOB IV (09:03)
[2025-06-01] MEDS: GLY IV (09:03)
--- NOTE | 2025-06-01 09:54 | PC.NURSE ---
Tolerating infusion without c/o. Denies needs. IV site remains clear.
[2025-06-29] MEDS: 0.9 % SODIUM CHLORIDE 250 ML 10 ML IV (08:56)
[2025-06-29] MEDS: IMMUN GLOB IV (09:03)
[2025-06-29] MEDS: IGA OV50 IV (09:03)
[2025-06-29] MEDS: GLY IV (09:03)
[2025-06-29 09:16] VITALS: BP 116/76; PULSE 80; TEMP 36.6; O2SAT 96
== END 2025-07-01 23:59 | disposition home or self-care (01) ==
LOC: INF 08:40
PROVIDERS: PCP Family Medicine
DX: N18.32 Chronic kidney disease, stage 3b (principal); D80.1 Nonfamilial hypogammaglobulinemia; D83.9 Common variable immunodeficiency, unspecified
CPT/HCPCS: 36415; 80048; 96365; 96366; J1569

== ENCOUNTER 2025-07-06 08:37 | Outpatient (OUT) | payer MEDICARE, SELFPAY ==
--- OUTSIDE RECORDS SUMMARY | 2025-07-06 08:41 | XMS_ITS ---
Author Organization [facility] Address [address] [place] [address] Care Team Providers Care Welcome Center Attendant Name Role Phone Nael Mendez MD Unavailable [phone] Nohelia Machado DO Unavailable Unavailable Christopher Solomon MD Unavailable Unavailable Sandra Cole MD Unavailable [phone] Nael Mendez MD 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 Provider [phone] Active Problems ProblemNoted DateDiagnosed DateBMI 37.0-37.9, adult05/06/2024hronic pain shosijum21/18/2024Morbid ceuarqb6110/23/2023 Overview (10/23/2023): BMI >= to 35 with multiple co-morbid conditions. Spasm09/11/2023dverse effect of antineoplastic and immunosuppressive drugs, vxeodqa4802/05/20238301Kqxvqm45/07/2023hronic hhzacym3602/05/2023ommon variable cpomianujvmhldww02/07/2023LBCL (diffuse large B cell lymphoma)02/05/2023 Overview (11/04/2024): Initial DX 2016 Drug-induced diffuse interstitial pulmonary /07/2023rug-induced pdbyfbxkkfengb79/07/2023Esophageal ahhapy1202/05/2023Hypogammaglobulinemia 02/05/2023Immunodeficiency due to external kjjxyh1102/05/2023Migraine without aura, intractable, with status aoawzcvlqvz64/07/2023Mixed hyperlipidemia 02/05/2023Non-seasonal allergic uyhhrssh21/07/1395Ybeloxuqnxakkl63/07/2023 Secondary hyperparathyroidism of renal zutzyu4602/05/2023Secondary malignant neoplasm of left kidney and renal yhdhlw2302/05/2023Secondary malignant neoplasm of spinal canal02/05/2023Secondary malignant neoplasm of wkdhhi1502/05/2023Stage 3b chronic kidney thykrau5402/05/2023Stem cells transplant rgpwwa0402/05/2023 Overview (11/04/2024): CAR T Cell infusion with tisageniecleucel 2019 Preparative Regimen of fludarabine and Cytoxan Systolic zadciomfgqv43/07/2023Thickening of cunlbf1002/05/2023Venous (peripheral) ihsyijnkrddph42/07/2023 Current Treatment and Therapy Plans No current plan information found. Past Treatment and Therapy Plans No past plan information found. Lifetime Dose Tracking * ChemicalLifetime DoseAutomatic EntryManual AlnwcNocvorngb970.44 wAc165.44 mSv0 mSv Resolved Problems ProblemNoted DateDiagnosed DateResolved DateOther obesity due to excess calories /
--- OUTSIDE RECORDS SUMMARY | 2025-07-06 08:41 | XMS_ITS | Encounter Summary ---
Author Organization [facility] Address [address] [place] [address] Phone Care Team Providers Care Mainspring Strip Gauger Name Role Phone Nael Mendez MD 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 Provider [phone] Miranda Sears MD Unavailable Christopher Solomon MD Unavailable [phone] Sandra Cole MD Unavailable [phone] Encounter Details DateTypeDepartmentCare Team (Latest Contact Info)Yhktgovduow48/30/2025Scanned Document [facility] [address] [facility] [address] [place] [address] Sandra Cole MD [address] [facility], [facility] [address] [place] [address] Social History Tobacco UseTypesPacks/DayYears UsedDateSmoking Tobacco: NeverPassive Smoke Exposure: PastSmokeless Tobacco: NeverAlcohol UseStandard Drinks/WeekComments Never0 (1 standard drink = 0.6 oz pure alcohol)Sex and Gender InformationValue Date RecordedSex Assigned at BirthNot on fileLegal ZqdWmok51/26/2022 12:29 PM ESTGender IdentityNot on fileSexual OrientationNot on filedocumented as of this encounter Plan of Treatment DateTypeDepartmentCare Team (Latest Contact Info)Fczeqfwmtqa51/10/2025 11:15 AM ESTOffice Visit [facility] [address] [place] [address] Sandra Cole MD [address] [facility], [address] [place] [address] 08/11/2025 11:30 AM ESTOffice Visit [facility] [address] [place] [address] [address] [place] [address] Christopher Solomon MD [address] [place] [address] Dr [address] [place] [address] 08/15/2025 10:40 AM ESTOffice Visit [facility] [address] [place] [address] Dr [address] [place] [address] Miranda Sears MD [address] [place] [address] Dr [address] [place] [address] documented as of this encounter Visit Diagnoses Not on filedocumented in this encounter Additional Health Concerns AssessmentNoted TimeA fall risk assessment has been completed for the patient 02/17/2025 11:03 AM EDTdocumented as of this encounter Care Teams Team MemberRelationshipSpecialtyStart DateEnd Date Nael Mendez MD [address] [place] [address] PCP - Kskyqbl84/18/18 Miranda Sears MD [address] [place] [address] [address] [place] [address] Consulting PhysicianHematology and Fcplkpfj33/13/23 Christopher Solomon MD [address] [place] [address] [address] [place] [address] Consulting PhysicianNephrology12/08/23 Sandra Cole MD [address] [facility], [address] [place] [address] Referring PhysicianAllergy and Qfikfmwyzd46/24/24documented as of this encounter
--- OUTSIDE RECORDS SUMMARY | 2025-07-06 08:41 | XMS_ITS | Clinical Summary ---
Author Organization [facility] Healthcare Address [address] [place] [address] Care Team Providers Care Machining Department Supervisor Name Role Phone Nael Mendez MD Unavailable [phone] Nohelia Machado DO Unavailable Unavailable Christopher Solomon MD Unavailable Unavailable Sandra Cole MD Unavailable [phone] Nael Mendez MD 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 Provider [phone] Allergies Active AllergyReactionsCriticalityNoted EvrjJrdmwpjbGzcowtnsmHqcnlaex48/06/2024 Yidmpip0902/05/2023 Other Reaction(s): nausea, chills, vomiting AlreoihwqnZygneKotvuf10/24/2025 Pain in the kidney area, unable to urinate Owivsukyfcdh87/07/2023 Other Reaction(s): diarrhea Rvdzzuyaqfwpypqw74/07/2023 Other Reaction(s): Hives nausea Sulfamethoxazole-Lxgbgqaqtbmm98/07/2023 Other Reaction(s): Hives RaokbvceiranSam35/04/2023 Sweating, insomnia, nausea. Medications MedicationSigDispense QuantityRefillsLast FilledStart DateEnd DateStatus calcitriol (Rocaltrol) 0.25 MCG capsule Take 0.25 mcg by mouth See administration instructions. TAKE 1 CAPSULE BY MOUTH ONCE DAILY ON WEEK AND 2 CAPSULES ONCE DAILY ON FRI. AND SUN.Active magnesium gluconate 250 MG tablet Take 1 tablet by mouth DailyActive ondansetron (Zofran) 8 MG tablet Take 8 mg by mouth every 8 (eight) hours if needed for nausea.Active Potassium 99 MG tablet 1 (one) time each day at the same time.Active cetirizine (ZyrTEC) 10 MG tablet Take 10 mg by mouth DailyActive cholecalciferol (Vitamin D-3) 250 MCG (22256 UT) capsule Take 1 capsule by mouth in the morning.Active Fluticasone-Salmeterol (Wixela Inhub) 500-50 MCG/ACT aerosol powder Inhale 1 puff DailyActive oxyCODONE (Roxicodone) 5 MG immediate release tablet Take 5 mg by mouth every 6 (six) hours if needed for severe painActive omeprazole OTC (PriLOSEC OTC) 20 MG EC tablet Take 20 mg by mouth in the morning. Take before meals. Do not crush, chew, or split..Active polyvinyl alcohol-povidone PF (Refresh) 1.4-0.6 % ophthalmic solution Administer 1-2 drops into both eyes DailyActive Immune Globulin, Human, 40 GM/400ML solution Inject 400 mL as directed every 30 (thirty) daysActive Homeopathic Products (Leg Cramp Relief) sublingual tablet Place 1 tablet under the tongue if neededActive albuterol (2.5 MG/3ML) 0.083% nebulizer solution Indications:Moderate persistent asthma without complication (HCC)Take 3 mL (2.5 mg) by nebulization 4 (four) times a day as needed for wheezing or shortness of [id number] valsartan (Diovan) 160 MG tablet Take 160 mg by mouth Daily5Active chlorhexidine (Peridex) 0.12 % solution Use 15 mL in the mouth or throat if needed for wound careActive gabapentin (Neurontin) 100 MG capsule Indications:Chronic pain syndromeTake 1 capsule (100 mg) by mouth in the morning and in the evening 180 capsule 5Active gabapentin (Neurontin) 300 MG capsule Indications:Chronic pain syndrome,SpasmTake 1-2 capsules (300-600 mg) by mouth at bedtime Take 1 to 2 capsules in the evening 180 capsule 5Active baclofen (Lioresal) 10 MG tablet Indications:SpasmTake by mouth; 1/2 tablet in the morning, 1/2 tablet at lunchtime, and 1 tablet in the evening. 180 tablet 5Active albuterol HFA 90 mcg/act inhaler Indications:Moderate persistent asthma without complication (HCC)Inhale 2 puffs every 4 (four) hours if needed for wheezing or shortness of breath 54 g 5Active spironolactone (Aldactone) 25 MG tablet Indications:Venous insufficiencyTake 1 tablet (25 mg) by mouth Daily 90 tablet 5009/12/2025ctive spironolactone (Aldactone) 25 MG tablet Indications:Venous insufficiencyTake 1 tablet (25 mg) by mouth Daily 30 tablet Discontinued(Reorder) Active Problems ProblemNoted DateDiagnosed DateBMI 37.0-37.9, adult05/06/2024hronic pain /18/2024Morbid qisjrrq2710/23/2023 Overview (10/23/2023): BMI >= to 35 with multiple co-morbid conditions. Spasm09/11/2023dverse effect of antineoplastic and immunosuppressive drugs, iwrbpxl1002/05/20235653Eoggmd38/07/2023hronic ohshenb8802/05/2023ommon variable cndbuawdeamogghp53/07/2023LBCL (diffuse large B cell lymphoma)02/05/2023 Overview (11/04/2024): Initial DX 2016 Drug-induced diffuse interstitial pulmonary jritthfd69/07/2023rug-induced wwbcwpjlszcotz76/07/2023Esophageal pguzcv7902/05/2023Hypogammaglobulinemia 02/05/2023Immunodeficiency due to external wrfqsg1602/05/2023Migraine without aura, intractable, with status ricbhjzolhw41/07/2023Mixed hyperlipidemia 02/05/2023Non-seasonal allergic nylfnzgp26/07/0524Bncxbsxupnmvdt29/07/2023 Secondary hyperparathyroidism of renal zadipu0502/05/2023Secondary malignant neoplasm of left kidney and renal dshtez0102/05/2023Secondary malignant neoplasm of spinal canal02/05/2023Secondary malignant neoplasm of tcthik6602/05/2023Stage 3b chronic kidney isokqtu5402/05/2023Stem cells transplant qtpiky1502/05/2023 Overview (11/04/2024): CAR T Cell infusion with tisageniecleucel 2018 Preparative Regimen of fludarabine and Cytoxan Systolic jhjtrymepyx86/07/2023Thickening of sxjqyb8302/05/2023Venous (peripheral) mcslupabzzlzf11/07/2023 Resolved Problems ProblemNoted DateDiagnosed DateResolved DateOther obesity due to excess calories / Encounters DateTypeDepartmentCare TuufCwpixqcowig63/14/2025Telephone [facility] [place] [address] [place] [address] Tyree, Elizabeth, [place] Care Fkeewgnlwyex05/01/2025linisync Result Encounter [facility] External Department Unsolicited Nael Mendez MD 05/25/2025 9:00 AM EDTOffice Visit [place] [address] [place] [address] Nael Mendez MD Chronic pain syndrome (Primary Dx); Moderate persistent asthma without complication (HCC); Drug-induced diffuse interstitial pulmonary fibrosis; Morbid obesity (CMS-HCC); BMI 37.0-37.9, adult; Stage 3b chronic kidney disease (CMS-HCC); Venous esycktfwsqlmu49/24/2025amboo flowsheet [place] [address] [place] [address] Nael Mendez MD 05/25/20255811Kfcowj14/17/0680Hxabrk83/08/2025 1:45 PM EDTOffice Visit [place] [address] [place] [address] Nael Mendez MD Edema of both legs (Primary Dx); Drug-induced diffuse interstitial pulmonary fibrosis; Moderate persistent asthma without complication (HCC); Systolic dysfunction; Stage 3b chronic kidney disease (CMS-HCC)05/09/2025amboo flowsheet [place] [address] [place] [address] Nael Mendez MD 05/09/2025Travelfrom Last 3 Months Immunizations ImmunizationAdministration DatesNext DueInfluenza, injectable, quadrivalent, preservative free06/14/2023,08/18/2022MMR02/08/2020Moderna Bivalent Booster Asplqxucdsx32/27/2022fizer Bivalent Booster 12 Years And Older08/27/2022 Family History Medical HistoryRelationNameCommentsMylomaBrother 1Heart diseaseBrother 2Steve Spinal diseaseBrother 2SteveCOPDBrother 3AlfredHeart failureBrother 3Alfred Alcohol abuseFatherAlfredArthritisFatherAlfredCirculation problemsFatherAlfred DiabetesFatherAlfredEmphysemaFatherAlfredHeart diseaseFatherAlfredNeuropathy FatherAlfredProstate cancerFatherAlfredRestless legs syndromeFatherAlfredCancer Maternal GrandfatherGlenn KramerAlzheimer's diseaseMaternal GrandmotherMae KramerMental illnessMaternal GrandmotherMae KramerAlzheimer's diseaseMotherCarol AsthmaMotherCarolDementiaMotherCarolMental illnessMotherCarolCancerPaternal GrandfatherGlenn KramerAlzheimer's diseasePaternal GrandmotherMae KramerMental illnessPaternal GrandmotherMae KramerOvarian cancerSisterRelationNameStatus CommentsBrother 1AliveBrother 2SteveAliveBrother 0UdzwdfIamywziiZphecrqkFgwnn1 daughterFatherAlfredDeceasedMaternal GrandfatherGlenn KramerDeceasedMaternal GrandmotherMae KramerDeceasedMotherCarolDeceasedPaternal GrandfatherGlenn Coelho DeceasedPaternal GrandmotherMae EfborpXzncijqzPwwrtqRlvnndfki9JbbRryyr8 son Social History Tobacco UseTypesPacks/DayYears UsedDateSmoking Tobacco: NeverSmokeless Tobacco: Never Tobacco Cessation:Counseling Given: Yes Alcohol UseStandard Drinks/WeekCommentsNot Currently0 (1 standard drink = 0.6 oz pure alcohol)Caffeine intake: 1-2 cups per day rdxfH5348 Health LiteracyAnswer Date RecordedHow often do you need to have someone help you when you read instructions, pamphlets, or other written material from your doctor or pharmacy? Uefyxn1608/19/2024Humiliation, Afraid, Rape, and Kick questionnaireAnswerDate RecordedWithin the last year, have you been afraid of your partner or ex-partner?No04/08/2023Within the last year, have you been humiliated or emotionally abused in other ways by your partner or ex-partner?No04/08/2023 Within the last year, have you been kicked, hit, slapped, or otherwise physically hurt by your partner or ex-partner?No04/08/2023Within the last year, have you been raped or forced to have any kind of sexual activity by your part ner or ex-partner?No04/08/2023Social Connection and Isolation PanelAnswerDate RecordedIn a typical week, how many times do you talk on the phone with family, friends, or neighbors?Twice a week08/19/2024How often do you get together with friends or relatives?Three times a week08/19/2024How often do you attend episcopal or evangelical services?Never08/19/2024o you belong to any clubs or organizations such as episcopal groups, unions, fraternal or athletic groups, or school groups?No 08/19/2024How often do you attend meetings of the clubs or organizations you belong to?Never08/19/2024re you , , , , never , or living with a partner?Ilzwntf9708/19/2024UDIT-CAnswerDate RecordedQ1: How often do you have a drink containing alcohol?Never08/19/2024Q2: How many drinks containing alcohol do you have on a typical day when you are drinking? Patient does not drink08/19/2024Q3: How often do you have six or more drinks on one occasion?Never08/19/2024Overall Financial Resource Strain (CARDIA)AnswerDate RecordedHow hard is it for you to pay for the very basics like food, housing, medical care, and heating?Not very hard08/19/2024HQ-2AnswerDate RecordedPatient Health Questionnaire-2 [facility]qfvy173[facility] [place] [facility] Occup[facility] - Occupational Stress QuestionnaireAnswerDate RecordedDo you feel stress - tense, restless, nervous, or anxious, or unable to sleep at night because your mind is troubled all the time - these days?Rather much08/19/2024Exercise Vital SignAnswerDate RecordedOn average, how many days per week do you engage in moderate to strenuous exercise (like a brisk walk)?0 days08/19/2024On average, how many minutes do you engage in exercise at this level?0 min08/19/2024Hunger Vital SignAnswerDate RecordedWithin the past 12 months, you worried that your food would run out before you got the money to buymore.Never true08/19/2024 Within the past 12 months, the food you bought just didn't last and you didn't have money to get more.Never true08/19/2024RAPARE - TransportationAnswerDate RecordedIn the past 12 months, has lack of transportation kept you from medical appointments or from getting medications?No08/19/2024In the past 12 months, has lack of transportation kept you from meetings, work, or from getting things needed for daily living?No08/19/2024Housing Stability Vital SignAnswerDate RecordedIn the last 12 months, was there a time when you were not able to pay the mortgage or rent on time?No04/08/2023Number of Places Lived in the Last Year Not on file04/08/2023In the last 12 months, was there a time when you did not have a steady place to sleep or slept in [place] (including now)?No04/08/2023 Housing Stability Vital SignAnswerDate RecordedIn the last 12 months, was there a time when you were not able to pay the mortgage or rent on time?No08/19/2024 Number of Times Moved in the Last YearNot on file08/19/2024t any time in the past 12 months, were you homeless or living in a [place] (including now)?No 08/19/2024Sex and Gender InformationValueDate RecordedSex Assigned at BirthNot on fileLegal OfdTosu5611/13/2022 7:14 PM EDTGender IdentityNot on fileSexual OrientationNot on file Last Filed Vital Signs Vital SignReadingTime TakenCommentsBlood Ygqnifyd419/7803 9:29 AM EST Mwjxq7607 8:58 AM EDTTemperature--Respiratory Pmyx0623 8:17 AM EDTOxygen Ysbnxycbzo51%05/25/2025 8:58 AM EDTInhaled Oxygen Concentration-- Kbrhkt679 kg (273 lb)05/25/2025 8:58 AM IPZPyflwe297.9 cm (6')05/25/2025 8:58 AM EDTBody Mass Index37.03005/25/2025 8:58 AM EDT Plan of Treatment Health MaintenanceDue DateLast DoneCommentsCT Uunsfolmomaa97/17/1961FIT-DNA 1960FIT1960FOBT1960 2562Pknbjdwzlgglo42/17/1961neumococcal Vaccine: Pediatrics (0 to 5 Years) and At-Risk Patients (6 to 64 Years) (1 of 2 - PCV)11/16/1979COVID-19 Vaccine (2024- season)51, 08/27/2022, 08/27/2022, Additional history existsMedicare Annual Wellness (AWV) 6011/04/2024, 10/23/2023, 02/25/2022Influenza Vaccine (#1)2026 06/14/2023, 2Postponed from 05/02/2025 (Patient Refused)Colonoscopy 21, 06/13/2022olorectal Cancer Gqsyqoepz11/13/2032 Procedures Procedure NamePriorityDate/TimeAssociated DiagnosisCommentsALL BASIC METABOLIC DVZBPCcgkhdg32/01/2025 8:40 AM EDT KJRDMCKAOWAJncoxqw29/13/2022 12:00 PM EDT from Last 3 Months or Most Recently Relevant to Health Maintenance Results * (ABNORMAL) ALL BASIC METABOLIC PANEL (06/01/2025 8:40 AM EDT)ComponentValueRef RangeTest MethodAnalysis TimePerformed AtPathologist YeuvxipllIYUXLM990696 - 145 mmol/LTBHPOTASSIUM4.33.5 - 5.1 mmol/INFSZZMOCCMV07883 - 107 mmol/LTBH CARBON HCQAQQM36.921.0 - 32.0 mmol/LTBHANION GAP12.9BGTLZMIWEW394(H)74 - 106 mg/dLTBHBLOOD UREA RTDGVFGG13.0(H)7.0 - 18.0 mg/dLTBHCREATININE1.80(H)0.70 - 1.30 mg/dLTBHTBH EGFR-AF SAAXQHAB11(L)>=60 mL/min/1.73m 2TBHTBH EGFR-NON AF NLBPWJMC22(L)>=60 mL/min/1.73m 2TBHBUN CREATININE RATIO15.1WBFYRRCAEK7.68.5 - 10.1 mg/dLTBHSpecimen (Source)Anatomical Location / LateralityCollection Method / VolumeCollection TimeReceived Time06/01/2025 8:40 AM EDT1 9:01 AM EDT Narrative [facility] - 06/01/2025 9:16 AM EDT Authorizing ProviderResult TypeResult StatusNael Mendez MDCLINISYNCFinal ResultPerforming OrganizationAddressCity/State/ZIP CodePhone Number [facility] * Colonoscopy (06/13/2022 12:00 PM EDT)Anatomical RegionLateralityModality EndoscopySpecimen (Source)Anatomical Location / LateralityCollection Method / VolumeCollection TimeReceived Time06/13/2022 12:00 PM EDT Narrative 06/13/2022 12:00 PM EDT PERFORMED AT [facility] LOCATION:[id number] Procedure Note CONVERSION, GENERIC - 01/15/2023 PERFORMED AT [facility] LOCATION:[id number] Authorizing ProviderResult TypeResult StatusNael Mendez MDENDOSCOPY PROCEDURE ORDERABLESFinal Result from Last 3 Months or Most Recently Relevant to Health Maintenance Insurance MemberSubscriberPlan / Payer (Effective 2021-Present)Name:Gabriel Danielle Relation to Subscriber:SelfName:Gabriel Danielle Payer ID:Not on file Group ID:[id number] Type:Not on file Address: [place] [phone] Care Teams Team MemberRelationshipSpecialtyStart DateEnd Date Nael Mendez MD [address] [address] PCP - [place]09/01/21 Nael Mendez MD [address] [address] PCP - GeneralFamily Medicine05/09/25 Nohelia Machado DO [address] [place] [address] Referring PhysicianPulmonary Disease10/09/23 [place] [address] [facility] [address] Referring PhysicianNephrology10/09/23 [place] [address] [place] [address] Referring PhysicianAllergy and Immunology10/09/23 Miranda Sears Referring PhysicianOncolog09/01/18
--- OUTSIDE RECORDS SUMMARY | 2025-07-06 08:41 | XMS_ITS | Clinical Summary ---
Author Organization [facility] Address [address] [place] [address] Phone Care Team Providers Care Front Desk Agent Name Role Phone Nael Mendez MD 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 Provider Miranda Sears MD Unavailable Christopher Solomon MD Unavailable [phone] Sandra Cole MD Unavailable [phone] Allergies Active AllergyReactionsCriticalityNoted OumdEblczrdnApldkqkmkNnvpsdcv00/06/2024 BaduvevQrmmLnd66/04/2023LevofloxacinGI GaxylGcd99/07/2023ProchlorperazineOther, Shortness of rvgtuyZjic96/04/2023 anxiety, restlessness Sulfamethoxazole-TrimethoprimHives,Itching,UqbtAyh2608/04/2023TrimethoprimOther 12/03/20176092QwmwbbirgxehFuyzy10/04/2023 Sweating, insomnia, nausea. Medications MedicationSigDispense QuantityRefillsLast FilledStart DateEnd DateStatus potassium citrate 99 mg capsule Take 1 tablet by mouth once daily.Active albuterol 0.63 mg/3 mL nebulizer solution Inhale.06/13/2020Active cetirizine (ZyrTEC) 10 mg tablet Take 1 tablet (10 mg) by mouth once daily.Active artificial tears, rfttzzo-ngspsko-egnkmzwv, 0.1-0.3-0.2 % ophthalmic solution Administer into affected eye(s) 4 times a day as needed.02/27/2019Active omeprazole (PriLOSEC) [address] capsule Take by mouth once daily.02/09/2016Active ondansetron (Zofran) 8 mg tablet Take by mouth every 8 hours if needed.02/01/2019Active oxyCODONE (Roxicodone) 5 mg immediate release tablet Take by mouth every 4 hours if needed.11/12/2018Active magnesium gluconate 12.5 mg magne- sium (250 mg) tablet every 12 hours.Active gabapentin (Neurontin) 100 mg capsule Take 1 capsule (100 mg) by mouth 2 times a day.01/04/2024ctive lubricating eye drops (polyvinyl alcohol-povidon,PF,) ophthalmic solution Administer 1-2 drops into both eyes.Active cholecalciferol (Vitamin D3) 5,000 Units tablet Take 2 tablets (250 mcg) by mouth once daily.Active baclofen (Lioresal) 10 mg tablet Take 1 tablet (10 mg) by mouth 3 times a day.Active valsartan (Diovan) 160 mg tablet Indications:Stage 3b chronic kidney disease (Multi),Essential hypertension, Hyperparathyroidism, secondary (Multi),Diffuse large B-cell lymphoma, unspecified body region (Multi)Take 1 tablet (160 mg) by mouth once daily. 90 tablet /ctive fluticasone propion-salmeteroL (Wixela Inhub) 500-50 mcg/dose diskus inhaler Indications:Asthma, unspecified asthma severity, unspecified whether complicated, unspecified whether persistent ([facility])Inhale 1 puff 2 times a day. Rinse mouth with water after use to reduce aftertaste and incidence of candidiasis. Do not swallow. 180 each 12:19 PM EDT501/ctive gabapentin (Neurontin) 300 mg capsule Take 1 capsule (300 mg) by mouth once daily at bedtime.Active calcitriol (Rocaltrol) 0.25 mcg capsule Indications:Hyperparathyroidism (Multi)TAKE TWO CAPSULES BY MOUTH EVERY DAY OVER THE WEEKENDS, AND TAKE ONE CAPSULE DAILY ON THE OTHER DAYS, DIRECTED. 117 capsule 5Active Active Problems ProblemNoted DateDiagnosed EdrhMbiqsp38/10/2024 Overview (09/10/2023): 09/2023 Previously managed by his [...] is to take that 1 inhalation 1 timea day. Nonetheless, the Wixela will be less [...] staff to send him co-pay assistance through [employer]. According to the patient his primary care recommended albuterol 2 inhalations twice a day as a maintenance and then every 4 hours as needed, but I am concerned about him developing tolerance to the albuterol and not having his underlying inflammation treated with a maintenance medication. Therefore I am going to attempt to get a coveredinhaled corticosteroid for maintenance. EDGAR (acute kidney injury)3Benign essential HTN08/04/2023hronic kidney lbqwfitrlahtj12/04/2023KD (chronic kidney disease), stage III08/04/2023VID (common variable immunodeficiency)08/04/2023 Overview (01/02/2025): Started Gammagard infusions 2--24 at [place]. Previously on HyQvia with side effects of abdominal bloating and pain at infusion sites. 09/2023 Current labs and treatment due to insurance issues. Last infusion was in July 2023. Started IVIG in 2018. At that time he received home health out of [place] to come to his home for administration. He would experience flulike symptoms with headache drainage and GI upset that would take him approximately a week to recover from. Therefore he discontinued treatment. He was then started on HyQvia around March 2021. He was changed to IVIG at [place] due to cost. Assessment & Plan (01/03/2025 [...] for the patient. Continue Gammagard infusions at [place]. He will maintain his current dose. His last level in October 2023 was a little low at 699. Nonetheless, the patient has not had any infections and therefore wewill not increase his dose at this time. [...] We will try to coordinate care with [facility]. Due to his kidney disease I do not really feel that IV is the best option, but under the c ircumstances IV is better than nothing. Diffuse large B-cell beipafdh91/04/2023Hyperparathyroidism, ovhukasze26/04/2023 Vlqimhpwsenrxkhipbvxb27/04/9392Vckbjqwbhkdassuic56/04/2023Left renal mass 08/04/2023Malignant neoplasm metastatic to ydjehj1208/04/2023Orthostatic gbkbqpmiorh75/04/2023Senile nuclear luajtnsws66/04/2023Thrombocytopenia 08/04/2023 Encounters DateTypeDepartmentCare JxwtTcqzfcumzmx71/30/2025Scanned Document [facility] [address] [place] [phone] Sandra Cole MD 06/30/2025Orders Only [facility] [address] [place] [phone] Sandra Cole MD Hypogammaglobulinemia (Multi) (Primary Dx)from Last 3 Months Immunizations ImmunizationAdministration DatesNext DueFlu vaccine (IIV4), preservative free *Check age/dose*08/18/2022MMR vaccine, subcutaneous (MMR II)02/08/2020Pfizer COVID-19 vaccine, bivalent, age 12 years and older (30 mcg/0.3 mL)08/27/2022 Pfizer Newman Cap XQYT-OpD-515/03/2022 Social History Tobacco UseTypesPacks/DayYears UsedDateSmoking Tobacco: NeverPassive Smoke Exposure: PastSmokeless Tobacco: Never Tobacco Cessation:Counseling Given: Not Answered Alcohol UseStandard Drinks/WeekCommentsNever0 (1 standard drink = 0.6 oz pure alcohol)Sex and Gender InformationValueDate RecordedSex Assigned at BirthNot on fileLegal TazOocq71/26/2022 12:29 PM ESTGender IdentityNot on fileSexual OrientationNot on file Last Filed Vital Signs Vital SignReadingTime TakenCommentsBlood Pspvpseg108/7406 11:04 AM EDT Hnpgl52730/19/2025 11:04 AM MEVVvhwbdzvpfj09.4 ??C (97.5 ??F)02/10/2025 8:50 AM EDTRespiratory Dgue888802/10/2025 8:50 AM EDTOxygen Novwmfbshm58%02/10/2025 8:50 AM EDTInhaled Oxygen Concentration--Obnosl496 kg (270 lb 6.4 oz)02/17/2025 11:04 AM JFWMwiqtu814.9 cm (6')02/17/2025 11:04 AM EDTBody Mass Index36.67002/17/2025 11:04 AM EDT Plan of Treatment DateTypeDepartmentCare Team (Latest Contact Info)Yiqvheacwmj92/10/2025 11:15 AM ESTOffice Visit [facility] [address] [place] [phone] Sandra Cole MD [address] [facility] [place] [address] 08/11/2025 11:30 AM ESTOffice Visit [facility] [address] [place] [address] [address] [place] [phone] Christopher Solomon MD [address] [place] [address] [address] [place] [address] 08/15/2025 10:40 AM ESTOffice Visit [facility] [address] [facility] [address] [place] [phone] Miranda Sears MD [address] [place] [address] [address] [place] [address] Health MaintenanceDue DateLast DoneCommentsCT Jhwhnerxndcw97/17/1961FIT-DNA (Cologuard)1960FIT1960HIV Outnukggq74/17/1961Medicare Annual Wellness Visit (AWV)1960 4580Cbxyhxqrcdlqa39/17/1961KD: Urine Protein Rlvdegndd72/17/1980Hepatitis A Vaccines (1 of 2 - Risk 2-dose series)11/16/1979 Pneumococcal Vaccine (1 of 2 - PCV)11/16/1979Zoster Vaccines (1 of 2)11/16/1979 DTaP/Tdap/Td Vaccines (1 - Tdap)1982PSA Prostate Cancer Screening 2010RSV High Risk: (Elderly (60+) or Population) (1 - Risk 50-74 years 1-dose series)2010Hepatitis B Vaccines (1 of 3 - Risk 3-dose series) 2020ipid PanelDiabetes Mhhxhteti05/16/700921/, 05/21/2021, 08/08/2020, Additional history existsInfluenza Vaccine (#1) , 2COVID-19 Vaccine ( season)2025 06/14/2023, 08/27/2022, 01/01/2022, Additional history existsColonoscopy , 2Colorectal Cancer Weezgbryc15/13/2032Hepatitis C CmvimotvaBtzusibne24/08/2019, 12/11/2017, 10/28/2017MMR VaccinesCompleted 02/08/2020Irritable Bowel NjquvtakZxgdcmdszkjn84/13/2022, 03/23/2018HIB Vaccines Aged OutNo longer eligible based on patient's age to complete this topicHPV VaccinesAged OutNo longer eligible based on patient's age to complete this topic IPV VaccinesAged OutNo longer eligible based on patient's age to complete this topicMeningococcal VaccineAged OutNo longer eligible based on patient's age to complete this topicRotavirus VaccinesAged OutNo longer eligible based on patient's age to complete this topic Procedures Procedure NamePriorityDate/TimeAssociated DiagnosisCommentsCOMPREHENSIVE METABOLIC BNSJMAobdsrc95/16/2022 9:19 AM EDT AUTO TRANSPLANT VIRAL PYRBXJywxgzd67/08/2019 12:49 PM EST YEZBLGBWZNRJZsrppdq80/23/2018 1:00 PM EDT LIPID PXXJDYvzlege47/24/2018 9:39 AM EDT from Last 3 Months or Most Recently Relevant to Health Maintenance Results * (ABNORMAL) Comprehensive Metabolic Panel (11/14/2021 9:19 AM EDT)Component ValueRef RangeTest MethodAnalysis TimePerformed AtPathologist SignatureGlucose 117(H)74 - 99 mg/dLST [facility] GLMTyozzw796223 - 145 mmol/[facility] LABPotassium4.33.5 - 5.3 mmol/[facility] LAB Otsauljq98953 - 107 mmol/[facility] WQBNdqjvkcirhb1841 - 32 mmol/[facility] LABAnion Qht1354 - 20 mmol/[facility] LABUrea Fkhronuv299 - 23 mg/dLST [facility] LABCreatinine1.76 (H)0.50 - 1.30 mg/dLST [facility] LABGFR MALE43(A)>90 mL/min/1.73m2ST [facility] LABComment: CALCULATIONS OF ESTIMATED GFR ARE PERFORMED USING THE 2020 CKD-EPI STUDY REFIT EQUATION WITHOUT THE RACE VARIABLE FOR THE IDMS-TRACEABLE CREATININE METHODS. https://jasn.asnjournals.org/content//ASN.3902852496 Calcium9.58.6 - 10.3 mg/dLST [facility] LABAlbumin4.33.4 - 5.0 g/dLST [facility] LABAlkaline Tyhnixyyozv9472 - 136 U/LST [facility] LABTotal Protein7.06.4 - 8.2 g/dLST [facility] STHQAE113 - 39 U/LST [facility] LABTotal Bilirubin0.70.0 - 1.2 mg/dLST [facility] LABALT (SGPT)4310 - 52 U/LST [facility] LABComment: Patients treated with Sulfasalazine may generate falsely decreased results for ALT. Specimen (Source)Anatomical Location / LateralityCollection Method / Volume Collection TimeReceived Time11/14/2021 9:19 AM EDT11/14/2021 9:24 AM EDT Narrative Authorizing ProviderResult TypeResult StatusPurandal DEWITT BLOOD ORDERABLES Final ResultPerforming OrganizationAddressCity/State/ZIP CodePhone Number [facility] * (ABNORMAL) Auto Transplant Viral Panel (11/06/2018 12:49 PM EST)ComponentValue Ref RangeTest MethodAnalysis TimePerformed AtPathologist SignatureCMV IgG9.1 (A)[facility] LABComment: RESULTS WERE OBTAINED WITH THE IMMULITE CMV IGG CHEMILUMINESCENT METHOD. THE MAGNITUDE OF THE MEASURED RESULT, ABOVE THE CUT-OFF, IS NOT INDICATIVE OF THE TOTAL AMOUNT OF ANTIBODY PRESENT. NEGATIVE: < 0.9 EQUIVOCAL: ?? 0.9 - 1.0 POSITIVE: >=1.1 CMV IgMNEGATIVENEGATIVEGEISING[facility] LABComment: RESULTS WERE OBTAINED WITH THE IMMULITE 2000 CMV IGM CHEMILUMINESCENT METHOD AND CANNOT BE INTERCHANGED WITH OTHER TESTING METHODS. Immunodeficiency may impair a CMV specific IgM response. Samples collected early in CMV infection may not demonstrate IgM sera conversion. Hepatitis B Surface Ab311.9<10 mIU/mLGEISINGER-[facility]OKIN AREA [facility] LABComment: INTERPRETIVE CRITERIA: <10 mIU/mL....NONREACTIVE >=10 mIU/mL...REACTIVE . Patients receiving more than 5 mg/day of biotin may have interference in test results. ??A sample should be taken no sooner than eight hours after ??previous dose. Contact the testing laboratory for additional information. HSV 1 IgG3.1(A)[facility] LABComment: REF VALUES NEGATIVE <0.9 EQUIVOCAL >=0.90 <=1.10 POSITIVE >1.10 HSV 2 IgG1.7(A)[facility] LABComment: POTENTIAL FOR CROSS-REACTIVITY BETWEEN HSV I AND HSV II EXISTS. REF VALUES NEGATIVE <0.9 EQUIVOCAL >=0.90 <=1.10 POSITIVE >1.10 Varicella IgGPOSITIVENEGATIVEGEISINGER[facility] LABComment: INTERPRETATIVE COMMENT NEGATIVE: No IgG antibodies specific to VZV detected. ? It is likely that the patient has not had a ? previous exposure to VZV through infection ? or vaccination. Alternatively, the patient may have been ? exposed to VZV but a failure to respond may indicate ? immunodeficiency. EQUIVOCAL:Equivocal results; obtain additional sample for retesting. POSITIVE: IgG antibody to VZV detected. This may indicate that ? the patient was exposed to VZV through infection or ? vaccination. The interpretation of serological tests should take into account the immunological status of the patient. ??Test results for patients, including immunocompromised patients, neonates, and pediatric patients, reflect their capacity to respond immunologically to the virus as well as their exposure to the pathogen. Patients treated with IVIG may demonstrate altered results in serological assays. Hep B Core IgMNON-REACTIVENONREACTIVEGEISINGER[facility] LABComment: Patients receiving more than 5 mg/day of biotin may have interference in test results. ??A sample should be taken no sooner than eight hours after ??previous dose. Contact the testing laboratory for additional information. Hepatitis C AbNON-REACTIVENONREACTIVEGEISINGER[facility] LABComment: Patients receiving more than 5 mg/day of biotin may have interference in test results. ??A sample should be taken no sooner than eight hours after ??previous dose. Contact the testing laboratory for additional information. Hepatitis B Surface AgNONREACTIVENONREACTIVEGEISINGER[facility] LABComment: Patients receiving more than 5 mg/day of biotin may have interference in test results. ??A sample should be taken no sooner than eight hours after ??previous dose. Contact the testing laboratory for additional information. HIV 1 and 2 ScreenNON REACTIVENONREFORMERLY [facility] LABComment: HIV Ag/Ab screen is performed using the Siemens Advia Centaur HIV Ag/Ab Combo assay which detects the presence of HIV p24 antigen as well as antibodies to HIV-1 (Group M and O) and HIV-2. SYPHILIS IGG - DATA CONVERSIONNON REACTIVENONREACTIVEGEISINGER[facility] LABComment: Patients receiving more than 5 mg/day of biotin may have interference in test results. ??A sample should be taken no sooner than eight hours after ??previous dose. Contact [phone] for additional information. Specimen (Source)Anatomical Location / LateralityCollection Method / Volume Collection TimeReceived Time11/06/2018 12:49 PM EST11/06/2018 1:54 PM EST Narrative Authorizing ProviderResult TypeResult StatusPaarron Saleem MDLAB BLOOD ORDERABLESFinal ResultPerforming OrganizationAddressCity/State/ZIP CodePhone Number [facility] * Bronchoscopy (03/23/2018 1:00 PM EDT)Anatomical RegionLateralityModality EndoscopySpecimen (Source)Anatomical Location / LateralityCollection Method / VolumeCollection TimeReceived Time03/23/2018 1:00 PM EDT Narrative 08/19/2022 11:51 AM EST Patient Name: Gabriel Danielle Procedure Date: 03/23/2018 1:00 PM Date of : 1960 Room: [place] Procedure Room 7 Attending MD: Dante Murphy DO, [id number] Procedure: ? Bronchoscopy Indications: ? Bilateral atelectasis Providers: ? Dante Murphy DO (Doctor), Gabriel Mcghee RN ? (Nurse), Denny Montalvo RN (Nurse), Pat ? MD Ivan (Fellow) Referring MD: ?Katie Jeffries MD (Referring MD) Provider Care Team: ?Katie Jeffries MD (Requesting Physician) Medicines: ? Lidocaine 4% Nebulizer 3 mL, Midazolam mg IV, Fentanyl ? mcg IV, Lidocaine 2% mg, Cetacaine Langeloth 1 dose, ? Fentanyl IV 125 mcgs, Lidocaine 2% Nebulizer 3 mLs, ? Versed IV 6 mgs Complications: ? No immediate complications Procedure: ? Pre-Anesthesia Assessment: ? - A History and Physical has been performed. Patient ? meds and allergies have been reviewed. The risks and ? benefits of the procedure and the sedation options and ? risks were discussed with the patient. All questions ? were answered and informed consent was obtained. ? Patient identification and proposed procedure were ? verified prior to the procedure by the physician and ? the nurse in the procedure room at 09:10 AM. Mental ? Status Examination: normal. Airway Examination: normal ? oropharyngeal airway. Respiratory Examination: ? bibasilar crackles. CV Examination: normal. ASA Grade ? Assessment: III - A patient with severe systemic ? disease. After reviewing the risks and benefits, the ? patient was deemed in satisfactory condition to ? undergo the procedure. The anesthesia plan was to use ? monitored anesthesia care (MAC). Immediately prior to ? administration of medications, the patient was ? re-assessed for adequacy to receive sedatives. The ? heart rate, respiratory rate, oxygen saturations, ? blood pressure, adequacy of pulmonary ventilation, and ? response to care were monitored throughout the ? procedure. The physical status of the patient was ? re-assessed after the procedure. ? After obtaining informed consent, the therapeutic ? bronchoscope was introduced through the mouth and ? advanced to the tracheobronchial tree of both lungs. ? The procedure was accomplished without difficulty. The ? patient tolerated the procedure well. The total ? duration of the procedure was 10 minutes. Findings: ? The oropharynx appears normal. The larynx appears normal. The vocal ? cords appear normal. The subglottic space is normal. The trachea is of ? normal caliber. The helga is sharp. The tracheobronchial tree was ? examined to at least the first subsegmental level. Bronchial mucosa and ? anatomy are normal; there are no endobronchial lesions, and no ? secretions. Copious, white, thick secretions were found throughout the ? tracheobronchial tree. ? Bronchoalveolar lavage was performed in the LLL anterior medial segments (B7 & B8) of the lung and sent for cell count, bacterial culture, viral smears & culture, fungal & AFB analysis and cytology for ? immunocompromised host protocol. 120 mL of fluid were instilled. 50 mL ? were returned. The return was cellular. Moderate Sedation: ? Moderate (conscious) sedation was personally administered by the ? endoscopist. The following parameters were monitored: oxygen saturation, ? heart rate, blood pressure, and response to care. Total physician ? intraservice time was 10 minutes. Estimated Blood Loss: ? Estimated blood loss was minimal. Impression: ?- Bilateral atelectasis ? - The examination was normal. ? - Bronchoalveolar lavage was performed. Recommendation: ?- The patient will be observed post-procedure, until ? all discharge criteria are met. ? - Await BAL results. ? - Follow up with referring physician. Procedure Code(s): ? --- Professional --- ? 69936, Bronchoscopy, rigid or flexible, including ? fluoroscopic guidance, when performed; with bronchial ? alveolar lavage Diagnosis Code(s): ? --- Professional --- ? J98.11, Atelectasis CPT copyright 2021 [employer]. All rights reserved. The codes documented in this report are preliminary and upon instrument technician helper review may be revised to meet current compliance requirements. Attending Participation: ? I was present and participated during the entire procedure, including ? non-rivera portions. Dante Murphy DO 03/23/2018 3:17:37 PM This report has been signed electronically. Number of Addenda: 0 Note Initiated On: 03/23/2018 8:27 AM Patient Profile: ? This is a 57 year old male. Refer to note in patient chart for ? documentation of history and physical. The attending physician ? independently verified the history and physical at 9:11AM on 03/23/18. ? The patient's ECOG performance status grade is 1 - restricted in ? physically strenuous activity but ambulatory and able to carry out work ? of a light or sedentary nature. Procedure Note Dante Murphy DO - 02/21/2025 Patient Name: Gabriel Danielle Procedure Date: 03/23/2018 1:00 PM Date of : 1960 Room: [place] Procedure Room 7 Attending MD: Dante Murphy DO, [id number] Procedure: Bronchoscopy Indications: Bilateral atelectasis Providers: Dante Murphy DO (Doctor), Gabriel Mcghee RN (Nurse), Denny Montalvo RN (Nurse), Pat Love MD (Fellow) Referring MD: Katie Jeffries MD (Referring MD) Provider Care Team: Katie Jeffries MD (Requesting Physician) Medicines: Lidocaine 4% Nebulizer 3 mL, Midazolam mg IV,Fentanyl mcg IV, Lidocaine 2% mg, Cetacaine Langeloth 1 dose, Fentanyl IV 125 mcgs, Lidocaine [...] tree. Bronchoalveolar lavage was performed in the [facility] anterior medialsegments (B7 & B8) of the [...] referring physician. Procedure Code(s): --- Professional --- 24390, Bronchoscopy, rigid or flexible, including fluoroscopic guidance, when performed; withbronchial alveolar lavage Diagnosis Code(s): --- Professional --- J98.11, Atelectasis CPT copyright 2021 [employer]. All rights reserved. The codes documented in this report are preliminary and upon instrument technician helper reviewmay be revised to meet current compliance [...] outwork of a light or sedentary nature. Authorizing ProviderResult TypeResult StatusJane A Little MDENDOSCOPY PROCEDURE ORDERABLESEdited Result - Final * (ABNORMAL) Lipid Panel (12/23/2017 9:39 AM EDT)ComponentValueRef RangeTest MethodAnalysis TimePerformed AtPathologist CgwtnqcyhHyvhurimprt805(H)0 - 199 mg/dLGE[facility] LABComment: . ?AGE ?DESIRABLE ?? BORDERLINE HIGH ?? HIGH 0-19 Y 0 - 169 170 - 199 >/= 200 20-24 Y 0 - 189 190 - 224 >/= 225 >24 Y 0 - 199 200 - 239 >/= 240 All ranges are based on fasting samples. Specific therapeutic targets will vary based on patient-specific cardiac risk. . Pediatric guidelines reference:Pediatrics 2011, 128(S5). Adult guidelines reference: NCEP ATPIII Guidelines, ??JOE 2001, 258:2486-97 . Venipuncture immediately after or during the administration of Metamizole may lead to falsely low results. Testing should be performed immediately prior to Metamizole dosing. HDL49.1mg/dLGEISINGER[facility] LABComment: . ?AGE ?VERY LOW ?? LOW ? NORMAL ?HIGH ?? 0-19 Y < 35 < 40 40-45 ---- 20-24 Y ---- < 40 >45 ---- >24 Y ---- < 40 40-60 >60 . Cholesterol/HDL Ratio5.6(A)[facility] LABComment: REF VALUES DESIRABLE < 3.4 HIGH RISK > 5.0 HPW385(H)0 - 99 mg/dLGE[facility] LABComment: . ? NEAR ?BORD ?AGE ?DESIRABLE ??OPTIMAL ?HIGH ? HIGH ? VERY HIGH 0-19 Y 0 - 109 --- 110-129 >/= 130 ---- 20-24 Y 0 - 119 --- 120-159 >/= 160 ---- >24 Y 0 - 99 100-129 130-159 160-189 >/=190 . PHRW853 - 40 mg/dLGE[facility] AVPCmunclpozpnvz943(H)0 - 149 mg/dLGEISING[facility] LABComment: . ?AGE ?DESIRABLE ?? BORDERLINE HIGH ?? HIGH ? VERY HIGH 0 D-90 D ?19 - 174 ? ---- ? ---- ?---- 91 D- 9 Y 0 - 74 [...] be performed immediately prior to Metamizole dosing. Specimen (Source)Anatomical Location / LateralityCollection Method / Volume Collection TimeReceived Time12/23/2017 9:39 AM EDT12/23/2017 12:53 PM EDT Narrative Authorizing ProviderResult TypeResult StatusHeather Cory Hastings MICA PLATE LAYER-CNPLAB BLOOD ORDERABLESFinal ResultPerforming OrganizationAddressCity/State/ZIP CodePhone Number [facility] LAB from Last 3 Months or Most Recently Relevant to Health Maintenance Insurance Care Teams Team MemberRelationshipSpecialtyStart DateEnd Date Nael Mendez MD [address] [place] [address] PCP - Whfefou79/18/18 Miranda Sears MD [address] [place] [address] [address] [place] [address] Consulting PhysicianHematology and Fkschshp51/13/23 Christopher Solomon MD [address] [place] [address] [address] [place] [address] Consulting PhysicianNephrology12/08/23 Sandra Cole MD [address] [facility] [address] [place] [address] Referring PhysicianAllergy and Jultsncoog20/24/24
--- OUTSIDE RECORDS SUMMARY | 2025-07-06 08:41 | XMS_ITS | Encounter Summary ---
Author Organization [facility] Address [address] [place] [address] Phone Care Team Providers [employer] First Officer Name Role Phone Nael Mendez MD 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 Provider Miranda Sears MD Unavailable Christopher Solomon MD Unavailable [phone] Sandra Cole MD Unavailable [phone] Encounter Details DateTypeDepartmentCare Team (Latest Contact Info)Juuxvdzbzzl65/30/2025Orders Only [facility] [address] [place] [address] Sandra Cole MD [address] [facility], [address] [place], [place] [id number] Hypogammaglobulinemia (Multi) (Primary Dx) Social History Tobacco UseTypesPacks/DayYears UsedDateSmoking Tobacco: NeverPassive Smoke Exposure: PastSmokeless Tobacco: NeverAlcohol UseStandard Drinks/WeekComments Never0 (1 standard drink = 0.6 oz pure alcohol)Sex and Gender InformationValue Date RecordedSex Assigned at BirthNot on fileLegal SmsKjmu52/26/2022 12:29 PM ESTGender IdentityNot on fileSexual OrientationNot on filedocumented as of this encounter Plan of Treatment DateTypeDepartmentCare Team (Latest Contact Info)Wibitqgbdep10/10/2025 11:15 AM ESTOffice Visit [facility] [address] [place] [phone] Sandra Cole MD [address] [facility], [facility] [address] [place] [address] 08/11/2025 11:30 AM ESTOffice Visit [facility] [address] [place] [address] [address] [place] [phone] Christopher Solomon MD [address] [place] [address] [address] [place] [address] 08/15/2025 10:40 AM ESTOffice Visit [facility] [place] [address] [place] [address] [address] [place] [phone] Miranda Sears MD [address] [place] [address] [address] [place] [address] NameTypePriorityAssociated DiagnosesOrder ScheduleComprehensive Metabolic Panel LabRoutine Hypogammaglobulinemia (Multi) Every 3 months for 6 Occurrences starting 06/30/2025 until 12/30/2026IgGLab Routine Hypogammaglobulinemia (Multi) Every 3 months for 6 Occurrences starting 06/30/2025 until 12/30/2026documented as of this encounter Visit Diagnoses Diagnosis Hypogammaglobulinemia (Multi)- Primary Unspecified hypogammaglobulinemia documented in this encounter Additional Health Concerns AssessmentNoted TimeA fall risk assessment has been completed for the patient 02/17/2025 11:03 AM EDTdocumented as of this encounter Care Teams Team MemberRelationshipSpecialtyStart DateEnd Date Nael Mendez MD [address] [place] [address] PCP - Zzzeewf43/18/18 Miranda Sears MD [address] [place] [address] [address] [place] [address] Consulting PhysicianHematology and Uazbuisc89/13/23 [place] [address] [facility] [address] [place] [address] Consulting PhysicianNephrology12/08/23 Sandra Cole MD [address] [facility], [facility] [address] [place] [address] Referring PhysicianAllergy and Kbevrdfoig42/24/24documented as of this encounter
--- OUTSIDE RECORDS SUMMARY | 2025-07-06 08:46 | XMS_ITS | CCD ---
Author Organization [facility] Care Team Providers Care Building Surveyor Name Role Phone Christopher Watkins Unavailable Unavailable Nael Farias Unavailable Unavailable Nael Farias Unavailable Unavailable Unavailable MD Nael Farias 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 Provider MD Victor Hugo Farrell Attending Provider [phone] Andrea, Dr. Nael Brand 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 Unava ilable Anirudh Sears Attending Unavailable Andrea, Dr. Nael Brand 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 Unava ilable Anirudh Sears Attending Unavailable SearsAnirudh ferreira Attending Unavailable Hemeevelyn, Dr. Nael Brand 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 Unava ilyonathan [...] MATTHEW Consulting Unavailable MISC, DOCTOR Attending Unavailable MISC, DR MATTHEW Admitting Unavailable HEMEYER ., DR GARCIA 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 Unavailable MISC, DR MATTHEW Consulting Unavailable MISC, DOCTOR Attending Unavailable MISC, DR MATTHEW Admitting Unavailable HEMEYER ., DR GARCIA 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 Unavailable MISC, DR MATTHEW Consulting Unavailable MISC, DR MATTHEW Attending Unavailable ZIEBLUDA, DR JS Hubbard Consulting Unavailable HEMEYER ., DR GARCIA 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 Unavailable HEMEYER ., DR GARCIA Consulting Unavailable HEMEYER ., DR GARCIA Attending Unavailable HEMEYER ., DR GARCIA Admitting Unavailable MISC, DR MATTHEW Admitting Unavailable HEMEYER ., DR GARCIA 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 Unavailable MISC, DR MATTHEW Consulting Unavailable MISC, DR MATTHEW Attending Unavailable Unavailable Unavailable Eduardo, Dr. Sanon Attending Unavailable Hemeyer, Dr. Nael Bradn [facility] Unava ilable Sears, Anirudh C Admitting Unavailable Sears, Anirudh C Attending Unavailable Hemeyer, Dr. Nael Brand [facility] Unava ilable Sears, Anirudh C Admitting Unavailable Sears, Anirudh C Attending Unavailable Hemeyer, Dr. Nael Brand [facility] Unava ilable Hemeyer, Dr. Nael Brand [facility] Unava ilable Roland, Dr. White Attending Unavailable Roland, Dr. White Referring Unavailable Hemeyer, Dr. Nael Brand [facility] Unava ilable Roland, Dr. White Attending Unavailable Roland, Dr. White Referring Unavailable Hemeyer, Dr. Nael Brand [facility] Unava ilable Roland, Dr. White Attending Unavailable Roland, Dr. White Referring Unavailable Hemeyer, Dr. Nael Brand [facility] Unava ilable Stephanieyer, Dr. Nael Brand Referring Unava ilable Kelsey, Dr. Sandra Lopez Attending Unav ailable Hemeyer, Dr. Nael Brand [facility] Unava ilable Sears, Anirudh C Attending Unavailable Sears, Anirudh C Admitting Unavailable Hemeyer Nael GRACE 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 Provider Anirudh Sears MD Unavailable Christopher Watkins MD Unavailable MD Nael Farias 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 Provider DO Nadeem Morrison Attending Provider [phone] Nael Farias 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 Unavailable Nadeem Morrison Attending Unavailab Nadeem Lopez Admitting Unavailab Nael Garcia MD Unavailable Nael Farias MD 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 Provider [phone] Nohelia Machado DO Unavailable Unavailable Christopher Watkins MD Unavailable Unavailable Sandra Cole MD Unavailable [phone] Nael Farias MD 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 Provider Nael Farias MD Unavailable Nael Farias MD 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 Provider Sandra Cole MD Unavailable Nael Farias MD Unavailable Nael Farias MD 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 Provider Nael Farias MD 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 Provider [phone] Anirudh Sears MD Unavailable Christopher Watkins MD Unavailable Sandra Cole MD Unavailable SEARS, ANIRUDH C Attending Unavailable HEMEEVELYN, EDSCOTT Partida 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 Unavailable SEARS, ANIRUDH C Attending Unavailable SEARS, ANIRUDH C Referring Unavailable HEMEEVELYN, EDSCOTT Partida 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 Unavailable SEARS, ANIRUDH C Attending Unavailable HEMEEVELYN, EDWARD Jaquan 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 Unavailable ROLAND, CHRISTOPHER Attending Unavailable HEMEEVELYN, EDSCOTT Partida 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 Unavailable SANDRA COLE Attending Unavailable HEMEEVELYN, EDSCOTT Partida 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 Unavailable ROLAND, CHRISTOPHER Attending Unavailable HEMEEVELYN, EDSCOTT Partida 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 Unavailable SANDRA COLE Attending Unavailable HEMEEVELYN, EDSCOTT J 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 Unavailable ROLAND, CHRISTOPHER Attending Unavailable HEMEEVELYN, EDSCOTT J 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 Unavailable Nael Farias MD 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 Provider NAEL FARIAS Attending Unavailable HEMEYER, EDWARD J Attending Unavailable HEMEYER, EDSCOTT J Attending Unavailable HEMEYER, EDSCOTT J Attending Unavailable HEMEYER, EDSCOTT J Attending Unavailable HEMEEVELYN, EDSCOTT J Attending Unavailable Nohelia Machado DO Unavailable Unavailable Christopher Watkins MD Unavailable Unavailable Sandra Cole MD Unavailable Allergies Allergy ClassificationReported Allergen(s)Allergy TypeDate of OnsetReaction(s) Facility (20 sources)Dapsone; Translations: [dapsone]Drug Nkkiazw91-18-7428RamhWklgiaemyReg[facility] ([facility] sources)Prochlorperazine; Translations: [Compazine]Drug AllergyThe [facility] (20 sources)Sulfamethoxazole / Trimethoprim; Translations: [Bactrim DS TABS]Drug Ljoeazr15-94-2309Untex, Itching, GduiPU-Wojqdmrxxnbcy-Bwnxghjm B102 Work Phone: (20 sources)voriconazole; Translations: [voriconazole]Drug Jaovzfj12-63-7307 [facility] 3 DO Work Phone: (1 source)PenicillinsAllergy to uqnkskzkg80-46-5258Jrexamt ReactionOhiohealth Hardin Memorial Hospital (20 sources)Prochlorperazine; Translations: [prochlorperazine]Drug Allergy 98-26-8529Fxzcu, Shortness of breathOhiohealth Hardin Memorial Hospital (6 sources)Sulfamethoxazole; Translations: [sulfamethoxazole]Drug Allergy 03-93-9771DvmatazMer[facility] (17 sources)Trimethoprim; Translations: [trimethoprim]Drug Osupqew63-11-9372 [facility] (1 source)CapsaicinDrug AllergyA[facility] Rep[facility] (1 source)Sulfamethoxazole / TrimethoprimDrug AllergyAcmc [facility] Repository (11 sources)Capsaicin; Translations: [CAPSAICIN]Drug Jgnjlcj77-96-5287JaforptfGerman Hospital (20 sources)CapsaicinDrug Xwohdls70-06-7571KndnrqmsAYIB Healthcare (20 sources)levoFLOXacin; Translations: [LEVOFLOXACIN]Drug Mmnqvtj12-25-0532RT [facility] (2 sources)Sulfamethoxazole / Trimethoprim; Translations: [SULFAMETHOXAZOLE-TRIMETHOPRIM]Drug Gwftkcf10-20-9925YYHenry County Hospital Repository (11 sources)CephalexinDrug Glcbgnw43-09-4366WzpveMSDY Healthcare (5 sources)VoriconazoleAllergy to xegbzlqvv18-17-3303FAID Healthcare Medications Current Medications MedicationDrug Class(es)DatesSig (Normalized)Sig (Original)[id number] 200 actuat albuterol 0.09 mg/actuat metered dose inhaler (20 sources)beta2-Adrenergic AgonistStart: 08-23-2024 End: 32-94-1423psxuryhcm (2.5 MG/3ML) 0.083% nebulizer solution Indications: Moderate persistent asthma without complication (HCC) Take 3 mL (2.5 mg) by nebulization 4 (four) times a day as needed for wheezing or shortness of breath 08/23/2024 08/23/2025 ActiveStart: 08-23-2024 End: 61-29-2030wqcr 2 puff(s) by inhalation every four hours for wheezing albuterol HFA 90 mcg/act inhaler Indications: Moderate persistent asthma without complication (HCC)Inhale 2 puffs every 4 (four) hours if needed for wheezing or shortness of breath 54 g 1 02/22/2025tiveStart: 68-56-0470Lzadekzbg Sulfate (2.5 MG/3ML) 0.083% Inhalation Nebulization Solution Quantity: 375 Refills: 0 Ordered: 01-Jul-2022 DO Start : 01-Jul-2022 ActiveStart: 97-30-1730ueyw 2.5 mg by inhalation every six hoursAlbuterol Sulfate Active 2.5 MG INHALATION Q6H June 13, 2022 12:00amStart: 59-35-8028kezy 1 puff(s) by inhalation every four hoursAlbuterol Sulfate Active 1 PUFF INHALATION Q4H June 13, 2022 12:00amStart: 82-98-4292txipyncdz 0.63 mg/3 mL nebulizer solution Inhale. 06/13/2020 ActiveStart: 21-99-8769tcnq 1 [IU] by inhalation every four to six hours as neededAlbuterol Sulfate 0.63 MG/3ML Inhalation Nebulization Solution USE 1 UNIT DOSE IN NEBULIZER EVERY 4TO 6 HOURS NEEDED. Quantity: 0 Refills: 0 Ordered: 13-Jun-2020 DO Start : 13-Jun-2020 Activebaclofen 10 mg oral tablet (20 sources)gamma-Aminobutyric Acid-ergic AgonistStart: 02-07-2025 End: 56-04-8058hhwkaerr (Lioresal) 10 MG tablet Indications: Spasm Take by mouth; 1/2 tablet in the morning, 1/2 tablet at lunchtime, and 1 tablet in the evening. 180 tablet 1 02/22/2025 ActiveStart: 03-25-2024 End: 98-95-1787tptjorys (Lioresal) 10 MG tablet Indications: Spasm Take by mouth; 1/2 tablet in the morning, 1/2 tablet at lunchtime, and 1 tablet in the evening. 180 tablet 1 08/23/2024 ActiveStart: 09-29-2023 End: 26-00-1220lhox 10 mg by mouth twice dailyBaclofen Discontinued 10 MG PO Twice daily May 19, 2024 12:00am May 19, 2024 4:34pmtake 1 tablet by mouth three times dailybaclofen (Lioresal) 10 mg tablet Take 1 tablet (10 mg) by mouth 3 times a day. Activebreath-actuated 120 actuat beclomethasone dipropionate 0.08 mg/actuat metered dose inhaler (1 source)CorticosteroidStart: 09-09-2023 End: 85-95-1406hqzsmtipznzgil dipropionate (Qvar) 80 mcg/actuation inhaler Indications: CVID (common variable immunodeficiency) ([facility]) Inhale 2 Inhalations 2 times a day. Rinse mouth out after inhalation. 10.6 g3 09/09/2023 09/08/2024 Activecalcitriol 0.09797 mg oral capsule (20 sources)Vitamin D3 AnalogStart: 21-92-7190blbjmpdxpb (Rocaltrol) 0.25 mcg capsule Indications: Hyperparathyroidism (Multi) TAKE 2 CAPSULES OVER THE WEEKENDS AND 1 CAPSULE THE OTHER DAYS 117 capsule 3 04/15/2024 ActiveStart: 44-54-4486nlxx 0.5 ug by mouth twice dailyCalcitriol Active 0.5 MCG PO Twice daily June 13, 2022 12:00am 2xW; weekendsStart: 07-28-2019 End: 48-90-2881wrfl 0.25 ug by mouth once dailyCalcitriol Discontinued 0.25 MCG PO Daily June 13, 2022 12:00am May 19, 2024 3:58pm 5xweek-takes on weekdaysStart: 48-25-9904Qsggrdivmf 0.25 MCG Oral Capsule TAKE 2 CAPSULES OVER THE WEEKENDS AND 1 CAPSULE THE OTHER DAYS Quantity: 117 Refills: 3 Ordered: 07-Apr-2023 Christopher Watkins MD Start : 28-Jul-2019 ActiveStart: 40-07-7523kdks 1 capsule by mouth every other dayCalcitriol 0.25 MCG Oral Capsule One cap every other day. Quantity: 15 Refills: 10 Christopher Watkins MD Start : 28-Jul-2019 Active cefuroxime 500 mg oral tablet (4 sources)Cephalosporin AntibacterialStart: 11-04-2024 End: 69-44-2408mhgi 1 tablet by mouth in the morningcefuroxime (Ceftin) 500 MG tablet Indications: Acute non-recurrent maxillary sinusitis Take 1 tablet (500 mg) by mouth in the morning and 1 tablet (500 mg) before bedtime. Do all this for 14 days. 28tablet 11/04/2024 11/18/2024 ActiveStart: 10-31-2022 End: 23-52-4029gkru 1 tablet by mouth twice dailycefuroxime (Ceftin) 500 mg tablet Take 1 tablet (500 mg) by mouth 2 times a day. 0 10/31/2022 09/09/2023 Discontinued (Therapy completed)cephalexin 500 mg oral capsule (1 source)Cephalosporin Antibacterial End: 80-67-8541vglz 1 capsule by mouth twice dailycephalexin (Keflex) 500 mg capsule Take 1 capsule (500 mg) by mouth 2 times a day. 02/10/2025 Discontinued (Med List Cleanup)cetirizine hydrochloride 10 mg oral tablet (20 sources)Histamine-1 Receptor Antagonisttake 1 tablet by mouth once daily cetirizine (ZyrTEC) 10 MG tablet Take 10 mg by mouth Daily ActiveZyrTEC Allergy 10 MG Oral Tablet Quantity: 0 Refills: 0 Ordered: 08-Mar-2019 DO ActiveCetirizine / Pseudoephedrine (4 sources)alpha-Adrenergic Agonist, Histamine-1 Receptor AntagonistStart: 11-66-2311bmdd 1 tablet by mouth once daily, then take 1 tablet by mouth every twelve hoursCetirizine-Pseudoephedrine (Zyrtec-D) 5-120 mg Tablet Extended Release 12 Hr Active 1 TAB PO Daily June 13, 2022 12:00amchlorhexidine gluconate 1.2 mg/ml mouthwash (11 sources)chlorhexidine (Peridex) 0.12 % solution Use 15 mL in the mouth or throat if needed for wound care Activedextran 70 1 mg/ml / glycerin 2 mg/ml / hypromellose 3 mg/ml ophthalmic solution (12 sources)Plasma Volume Instructional Technology Director, Non-Standardized Chemical AllergenStart: 83-72-1972lkawvkftte tears, cickvtf-pxwchjn-riuebjyy, 0.1-0.3-0.2 % ophthalmic solution Administer into affected eye(s) 4 times a day as needed. 02/27/2019 Uogkhf57 actuat fluticasone furoate 0.1 mg/actuat dry powder inhaler (16 sources)CorticosteroidStart: 44-74-5337fsaw 1 puff(s) by mouth once daily Arnuity Ellipta 100 mcg/actuation inhaler INHALE 1 PUFF BY MOUTH DAILY (rinse mouth after use) 0 04/09/2023 ActiveStart: 28-60-7833tnlz 1 puff(s) by mouth once dailyArnuity Ellipta 100 MCG/ACT Inhalation Aerosol Powder Breath Activated INHALE 1 PUFF BY MOUTH DAILYQuantity: 30 Refills: 0 Ordered: 06-Nov-2022 DO Start : 09-Oct-2022 ActiveStart: 81-70-9747zffn 1 spray(s) nasal route once daily Fluticasone Propionate 50 MCG/ACT Nasal Suspension USE 1 SPRAY IN EACH NOSTRIL ONCE DAILY. Quantity: 1 Refills: 3 DO Start : 13-Mar-2018 Activefluticasone / salmeterol (20 sources)Corticosteroid, beta2-Adrenergic AgonistStart: 02-07-2025 End: 81-15-1242rpdu 1 puff(s) by mouth twice dailyfluticasone propion-salmeteroL (Wixela Inhub) 500-50 mcg/dose diskus inhaler Indications: Asthma, unspecified asthma severity, unspecified whether complicated, unspecified whether persistent (HHS-HCC) Inhale 1 puff 2 times a day. Rinse mouth with water after use to reduce aftertaste and incidence of candidiasis. Do not swallow. 180 each 2 02/07/2025 05/08/2025 ActiveStart: 64-27-3469qxjb 1 puff(s) by mouth twice daily fluticasone propion-salmeteroL (Wixela Inhub) 500-50 mcg/dose diskus inhaler Indications: Asthma, unspecified asthma severity, unspecified whether complicated, unspecified whether persistent (HHS-HCC) Inhale 1 puff 2 times a day. Rinse mouth with water after use to reduce aftertaste and incidence of candidiasis. Do not swallow. 180 each 2 05/31/2024 ActiveStart: 05-31-2024 End: 99-70-6685humo 1 puff(s) by mouth twice dailyfluticasone propion-salmeteroL (Wixela Inhub) 500-50 mcg/dose diskus inhaler Indications: Asthma, unspecified asthma severity, unspecified whether complicated, unspecified whether persistent (HHS-HCC) Inhale 1 puff 2 times a day. Rinse mouth with water after use to reduce aftertaste and incidence of candidiasis. Do not swallow. 180 each 2 05/31/2024 08/29/2024 ActiveStart: 12-26-2023 End: 58-31-5329hgxf 1 puff(s) by mouth twice dailyfluticasone propion-salmeteroL (Wixela Inhub) 500-50 mcg/dose diskus inhaler Indications: Asthma, unspecified asthma severity, unspecified whether complicated, unspecified whether persistent (HHS-HCC) Inhale 1 puff 2 times a day. Rinse mouth with water after use to reduce aftertaste and incidence of candidiasis. Do not swallow. 60 each 12/26/2023 12/25/2024 ActiveStart: 09-15-2023 End: 85-46-8175drid 1 puff(s) by mouth twice dailyfluticasone propion-salmeteroL (Advair Diskus) 500-50 mcg/dose diskus inhaler Indications: Asthma, unspecified asthma severity, unspecified whether complicated, unspecified whether persistent Inhale 1 puff 2 times a day. Rinse mouth with water after use to reduce aftertaste and incidence of candidiasis. Do not swallow. 60 each 09/15/2023 12/05/2023 Discontinued (Med List Cleanup)take 1 puff(s) by inhalation once dailyFluticasone-Salmeterol (Wixela Inhub) 500-50 MCG/ACT aerosol powder Inhale 1 puff Daily Active End: 38-20-0667bjro 1 puff(s) by mouth twice dailyfluticasone propion-salmeteroL (Advair Diskus) 500-50 mcg/dose diskus inhaler Inhale 1 puff 2 timesa day. Rinse mouth with water after use to reduce aftertaste and incidence of candidiasis. Do not swallow. 0 12/05/2023 Discontinued (Med List Cleanup)30 actuat fluticasone furoate 0.2 mg/actuat / vilanterol 0.025 mg/actuat dry powder inhaler (1 source)Corticosteroid, beta2-Adrenergic AgonistStart: 12-17-2023 End: 79-96-7348fmmq 1 puff(s) by inhalation once dailyfluticasone furoate- vilanteroL (Breo Ellipta) 200-25 mcg/dose inhaler Indications: Asthma, unspecifi ed asthma severity, unspecified whether complicated, unspecified whether persistent ([facility]) Inhale 1 puff once daily. 3 each 3 12/17/2023 01/07/2024 Discontinued (Formulary change)fluticasone propion/salmeterol (WIXELA INHUB INHL) (1 source)fluticasone propion/salmeterol (WIXELA INHUB INHL) Inhale. 0 Active gabapentin 300 mg oral capsule (20 sources)Anti-epileptic AgentStart: 05-19-2024 End: 34-61-7337dbld 1 capsule by mouth in the morninggabapentin (Neurontin) 100 MG capsule Indications: Chronic pain syndrome Take 1 capsule (100 mg) bymouth in the morning and in the evening 180 capsule 1 02/22/2025 08/21/2025 ActiveStart: 02-38-7379sviq 1 capsule by mouth twice dailygabapentin (Neurontin) 100 mg capsule Take 1 capsule (100 mg) by mouth 2 times a day. 01/04/2024 ActiveStart: 02-20-2023 End: 19-37-7624dyum 1 capsule by mouth twice daily at bedtimegabapentin (Neurontin) 100 mg capsule TAKE 1 CAPSULE BY MOUTH TWICE DAILY in addition to the 300mg AT BEDTIME 0 02/25/2023 08/13/2023 Discontinued (Med List Cleanup) Start: 06-13-2020 End: 97-27-5109lcdw 1-2 capsules by mouth at bedtime, then take 1-2 capsules by mouth in the eveninggabapentin (Neurontin) 300 MG capsule Indications: Chronic pain syndrome , Spasm Take 1-2 capsules (300-600 mg) by mouth at bedtime Take 1 to 2 capsules in the evening 180 capsule 1 02/22/2025 08/21/2025 ActiveStart: 65-00-2960Lucxbrlpav 300 MG Oral Capsule Quantity: 0 Refills: 0 Ordered: 13-Jun-2020 DO Start : 13-Jun-2020 ActiveHomeopathic Products (Leg Cramp Relief) sublingual tablet (20 sources)Homeopathic Products (Leg Cramp Relief) sublingual tablet Place 1 tablet under the tongue if beroeoWhhsaf418 ml immunoglobulin g, human 100 mg/ml injection (20 sources)Human Immunoglobulin GStart: 10-03-2023 End: 57-54-1831uasltj globulin, human, (Gammagard Liquid) infusion Indications: CVID (common variable immunodeficiency) Infuse 400 mL (40 g) into a venous catheter every 30 (thirty) days. 400 mL 10/03/2023 10/02/2024 ActiveImmune Globulin, Human, 40 GM/400ML solution Inject 400 mL as directed every 30 (thirty) days Activelosartan potassium 25 mg oral tablet (10 sources)Angiotensin 2 Receptor BlockerStart: 06-13-2022 End: 08-42-3790vcfk 25 mg by mouth once dailyLosartan Active 25 MG PO Daily June 13, 2022 12:00amMagnesium (18 sources) End: 53-45-1124cnoahxovu 200 mg tablet Take 1 tablet (200 mg) by mouth. 01/07/2024 Discontinued (Med List Cleanup)magnesium 200 mg tablet Take 1 tablet (200 mg) by mouth. 0 Active End: 84-12-8571pnew 1 tablet by mouth once dailymagnesium 200 mg tablet Take 1 tablet (200 mg) by mouth once daily. 0 08/13/2023 Discontinued (Med List Cleanup)take 1 tablet by mouth once dailyMagnesium 200 MG Oral Tablet TAKE 1 TABLET DAILY DIRECTED. Quantity: 0 Refills: 0 Ordered: 08-Nov-2021 DO Active magnesium gluconate 250 mg oral tablet (20 sources)Start: 27-35-9107emuy 250 mg by mouth twice dailyMagnesium Gluconate Active 250 MG PO Twice daily June 13, 2022 12:00amtake 1 tablet by mouth once dailymagnesium gluconate 250 MG tablet Take 1 tablet by mouth Daily Active magnesium gluconate 12.5 mg magne- sium (250 mg) tablet every 12 hours. Active take 2 tablets by mouth once dailymagnesium gluconate 250 MG tablet Take 2 tablets by mouth Daily Activeomeprazole 20 mg delayed release oral capsule (20 sources)Proton Pump InhibitorStart: 02-09-2016 End: 67-01-2634sgycnioyhy (PriLOSEC) [address] capsule Take by mouth once daily. 02/09/2016 ActiveStart: 06-45-8633Gltesoclup 20 MG Oral Capsule Delayed Release Quantity: 0 Refills: 0 Ordered: 09-Feb-2016 DO Start : 09-Feb-2016 Activetake 1 tablet by mouth before mealtimeomeprazole OTC (PriLOSEC OTC) 20 MG EC tablet Take 20 mg by mouth in the morning. Take before meals. Do not crush, chew, or split.. ActiveoxyCODONE hydrochloride 5 mg oral tablet (20 sources)Opioid AgonistStart: 11-12-2018 End: 13-99-3258pohFYIFRY (Roxicodone) 5 mg immediate release tablet Take by mouth every 4 hours if needed. 11/12/2018 Activetake 1 tablet by mouth every six hours as needed for painoxyCODONE (Roxicodone) 5 MG immediate release tablet Take 5 mg by mouth every 6 (six) hours if needed for severe pain Activepolyvinyl alcohol 0.014 ml/ml / povidone 6 mg/ml ophthalmic solution (20 sources)take 1-2 drop(s) into the eye(s) once dailypolyvinyl alcohol- povidone PF (Refresh) 1.4-0.6 % ophthalmic solution Administer 1-2 drops into both eyes Daily Activelubricating eye drops (polyvinyl alcohol-povidon,PF,) ophthalmic solution Administer 1-2 drops intoboth eyes. Activepotassium 99 mg extended release oral tablet (20 sources)Start: 86-31-5449jowx 99 mg by mouth once dailyPotassium Active 99 MG PO Daily June 13, 2022 12:00amPotassium 99 MG tablet 1 (one) time each day at the same time. Activepotassium citrate 99 mg oral tablet (12 sources)take 1 tablet by mouth once dailypotassium citrate 99 mg capsule Take 1 tablet by mouth once daily. Activesildenafil 20 mg oral tablet (17 sources)Phosphodiesterase 5 InhibitorStart: 11-05-2023 End: 01-18-8926utamgckizr (Revatio) 20 MG tablet Indications: Erectile dysfunction due to diseases classified elsewhere Take 1 to 5 tablets as needed daily 90 tablet 1 11/05/2023 11/04/2024 Discontinued (Therapy completed) spironolactone 25 mg oral tablet (5 sources)Aldosterone AntagonistStart: 05-25-2025 End: 68-91-3260ykvm 1 tablet by mouth once dailyspironolactone (Aldactone) 25 MG tablet Indications: Venous insufficiency Take 1 tablet (25 mg) by mouth Daily 90 tablet 06/14/2025 09/12/2025 ActivetiZANidine 4 mg oral tablet (14 sources)Central alpha-2 Adrenergic AgonistStart: 05-19-2024 End: 48-30-5370baps 2 mg by mouth in the morningtiZANidine (Zanaflex) 4 MG tablet Take 2 mg by mouth in the morning and 2 mg before bedtime. 05/19/2024 08/23/2024 Discontinued (Therapy completed)Start: 05-19-2024 End: 09-94-8398rvXPJbechb (Zanaflex) 4 mg capsule 2 mg once daily. 05/19/2024 08/16/2024 Discontinued (Med List Cleanup)Start: 54-20-4241gnfe 0.5-1 tablets by mouth twice daily as neededTizanidine Active 0 PO Twice daily 60 May 19, 2024 12:00am 1/2-1 tablet orally twice daily PRN;valsartan 160 mg oral tablet (20 sources)Angiotensin 2 Receptor BlockerStart: 10-19-2024 End: 22-27-4327wrnn 1 tablet by mouth once dailyvalsartan (Diovan) 160 MG tablet Take 160 mg by mouth Daily 10/19/2024 ActiveStart: 01-29-2023 End: 40-79-3125vcah 1 tablet by mouth once dailyvalsartan (Diovan) 80 mg tablet Indications: Benign essential HTN TAKE 1 TABLET BY MOUTH DAILY 90 tablet 3 07/26/2024 10/19/2024 Discontinued (Therapy completed) Completed/Discontinued Medications MedicationDrug Class(es)DatesSig (Normalized)Sig (Original)acetaminophen 325 mg oral capsule (18 sources)Start: 01-16-2021 End: 59-11-5100wpqfujxffalsb (TylenoL) 325 mg capsule Take by mouth. 0 01/16/2021 09/09/2023 Discontinued (Med List Cleanup)Start: 41-08-5618Csnfmqn 325 MG Oral Capsule take two tablets 20 minutes prior to infusion Quantity: 10 Refills: 0 Ordered: 16-Jan-2021 Sandra Cole MD Start : 16-Jan-2021 Active Start: 70-57-4091Gkrmcwgkgsorf 325 MG Oral Tablet TAKE 2 TABLETS BY MOUTH 20 MIN PRIOR TO INFUSION Quantity: 10 Refills: 0 Ordered: 17-Jan-2021 DO Start : 16-Jan-2021 Completeacyclovir 400 mg oral tablet (7 sources)Herpesvirus Nucleoside Analog DNA Polymerase Inhibitor, Herpes Simplex Virus Nucleoside Analog DNA Polymerase Inhibitor, Herpes Zoster Virus Nucleoside Analog DNA Polymerase InhibitorStart: 67-53-9652qqlh 1 tablet by mouth twice dailyAcyclovir 400 MG Oral Tablet TAKE 1 TABLET TWICE DAILY. Quantity: 0 Refills: 0 Ordered: 77-Jyz-0782SO Start : 17-Dec-2017 Active amLODIPine 5 mg oral tablet (12 sources)Dihydropyridine Calcium Channel BlockerStart: 03-12-2022 End: 66-60-1877tiyt 1 tablet by mouth once dailyamLODIPine (Norvasc) 5 mg tablet Take 1 tablet (5 mg) by mouth once daily. 0 03/12/2022 09/09/2023 Discontinued (Therapy completed)cefdinir 300 mg oral capsule (2 sources)Cephalosporin AntibacterialStart: 11-20-2022 End: 56-03-1593hlms 1 capsule by mouth twice dailycefdinir (Omnicef) 300 mg capsule Take 1 capsule (300 mg) by mouth 2 times a day. 0 11/20/2022 09/09/2023 Discontinued (Therapy completed)cholecalciferol 0.125 mg oral tablet (20 sources)Vitamin DStart: 12-03-2017 End: 29-36-3546yiue 1 tablet by mouth once dailyCholecalciferol (Vitamin D3) (Vitamin D3) 5,000 unit Tablet Discontinued 5000 UNIT PO Daily December 03, 2017 12:00am June 13, 2022 8:53amtake 1 capsule by mouth in the morning cholecalciferol (Vitamin D-3) 250 MCG (59528 UT) capsule Take 1 capsule by mouth in the morning. Activetake 2 tablets by mouth once dailycholecalciferol (Vitamin D3) 5,000 Units tablet Take 2 tablets (250 mcg) by mouth once daily. Active End: 97-95-7614zfry 1 tablet by mouth once dailycholecalciferol (Vitamin D3) 50 MCG (2000 UT) tablet Take 1 tablet (50 mcg) by mouth once daily. 07/05/2024 Discontinued (Med List Cleanup)chondroitin sulfates 200 mg / glucosamine hydrochloride 250 mg oral tablet (5 sources)Start: 12-03-2017 End: 09-69-5363owio 2 tablets by mouth once dailyGlucosamine-Chondroitin (Osteo Bi-Flex) 250-200 mg Tablet Discontinued 2 TAB PO Daily December 03, 2017 12:00am June 13, 2022 8:53amdiphenhydrAMINE hydrochloride 25 mg oral tablet (20 sources)Histamine-1 Receptor AntagonistStart: 01-16-2021 End: 82-16-9106naktolollnZIIIM (Benadryl Allergy) 25 mg tablet Take by mouth. 01/16/2021 07/05/2024 Discontinued (Med List Cleanup)Start: 02-84-0432Iltqgyla Allergy 25 MG Oral Tablet take 20 minutes prior to infusion Quantity: 10 Refills: 0 Ordered: 16-Jan-2021 Sandra Cole MD Start : 16-Jan-2021 Active ergocalciferol 97216 unt oral capsule (5 sources)Provitamin D2 CompoundVitamin D (Ergocalciferol) 1.25 MG (96907 UT) Oral Capsule Refills: 0 DO ActiveVitamin D (Ergocalciferol) 58856 UNIT Oral Capsule Refills: 0 Activefluconazole 200 mg oral tablet (3 sources)Azole AntifungalStart: 10-03-2022 End: 86-91-7839mrhf 1 tablet by mouth once dailyfluconazole (Diflucan) 200 mg tablet Take 1 tablet (200 mg) by mouth once daily. 0 10/03/2022 09/09/2023 Discontinued (Therapy completed)Start: 21-60-3762ocax 1 tablet by mouth once dailyFluconazole 200 MG Oral Tablet take 1 tablet by mouth once daily for 10 days Quantity: 14 Refills: 0 Ordered: 20-Mar-2021 DO Start : 20-Mar-2021 CompleteHyaluronidase (12 sources)EndoglycosidaseStart: 04-23-2023 End: 90-69-0532PzFjkm 5 gram /50 mL (10 %) solutionStart: 50-29-1696XhFnrt 5 gram /50 mL (10 %) solutionStart: 86-92-8489Vkq-Hyaluronidase,Recombinant (Hyqvia) 5 gram /50 mL (10 %) Solution Active 50 ML SUBCUT Q28D June 13, 2022 12:00amStart: 11-06-2021 End: 02-46-4193univwe globulin-hyaluronidase (HyQvia) 2.5 gram /25 mL (10 %) solution Inject under the skin. 0 11/06/2021 09/09/2023 Discontinued (Cost of medication)Start: 11-06-2021 End: 55-93-0482QvAccv 20 gram /200 mL (10 %) solution Inject under the skin. 0 11/06/2021 09/09/2023 Discontinued (Cost of medication)Start: 78-42-2867vmccxd globulin-hyaluronidase (HyQvia) 2.5 gram /25 mL (10 %) solution Inject under the skin. 0 11/06/2021 ActiveStart: 30-41-6245AiUmpo 20 gram /200 mL (10 %) solution Inject under the skin. 0 11/06/2021 Active End: 20-35-6691cidkzj globulin-hyaluronidase (HyQvia) 2.5 gram /25 mL (10 %) solution Inject under the skin. 0 09/09/2023 Discontinued (Cost of medication) immune globulin-hyaluronidase (HyQvia) 2.5 gram /25 mL (10 %) solution Inject under the skin. 0 Activehydrocortisone 25 mg/ml topical cream (17 sources)CorticosteroidStart: 01-17-2021 End: 55-99-8160jgvofiwfqubvrm 2.5 % cream Apply topically. Apply to affected areas 2-3 times daily 0 01/17/2021 09/09/2023 Discontinued (Cost of medication) Start: 50-78-5187Dyuqktiwcvmcnd 2.5 % External Cream APPLY 2-3 TIMES DAILY TO AFFECTED AREA(S). Quantity: 1 Refills:0 Ordered: 17-Jan-2021 Sandra Cole MD Start : 17-Jan-2021 ActiveHyqvia 2.5 GM/25ML Subcutaneous Kit (13 sources)Start: 83-34-6230Wwbsso 2.5 GM/25ML Subcutaneous Kit evry 28 days Quantity: 0 Refills: 0 Ordered: 08-Nov-2021 DO Start : 06-Nov-2021 ActiveStart: 29-20-4519Kbwllg 2.5 GM/25ML Subcutaneous Kit Quantity: 0 Refills: 0 Ordered: 08-Nov-2021 DO Start : 06-Nov-2021 ActiveHyqvia 20 GM/200ML Subcutaneous Kit (6 sources)Start: 90-18-2453Derlcm 20 GM/200ML Subcutaneous Kit Quantity: 0 Refills: 0 Ordered: 08-Nov-2021 DO Start : 06-Nov-2021 ActivelevoFLOXacin 750 mg oral tablet (2 sources)Quinolone AntimicrobialStart: 11-19-2022 End: 64-74-6712qmjc 1 tablet by mouth once dailylevoFLOXacin (Levaquin) 750 mg tablet TAKE 1 TABLET BY MOUTH ONCE DAILY FOR 10 DAYS 0 11/19/2022 09/09/2023 Discontinued (Therapy completed)lidocaine 25 mg/ml / prilocaine 25 mg/ml topical cream (11 sources)Antiarrhythmic, Amide Local AnestheticStart: 07-24-1856Cfhhdahys- Prilocaine 2.5-2.5 % External Cream APPLY TO AREA AND COVER WITH saran wrap 1 HOUR BEFOREAPPOINTMENT. Quantity: 1 Refills: 0 Ordered: 19-Aug-2022 Sandra Cole MD Start : 15-Aug-2022 ActiveStart: 69-63-1344Ipntwphbw-Prilocaine 2.5- 2.5 % External Cream Quantity: 30 Refills: 0 Ordered: 12-Oct-2021 DO Start: 12-Oct-2021 Completeloratadine 10 mg oral tablet (5 sources)Start: 12-03-2017 End: 40-24-4309wghh 1 tablet by mouth once dailyLoratadine (Claritin) 10 mg Tablet Discontinued 10 MG PO Daily December 03, 2017 12:00am June 13, 2022 8:53ammethocarbamol 750 mg oral tablet (19 sources)Muscle RelaxantStart: 12-19-2021 End: 41-81-8256Oymxzvxhfmgpj Discontinued 750 MG PO As Directed June 13, 2022 12:00am May 19, 2024 3:57pmondansetron 4 mg oral tablet (20 sources)Serotonin-3 Receptor AntagonistStart: 02-22-2025 End: 65-57-6385oxyz 1 tablet by mouth every eight hours as needed for nausea and vomiting and nausea and nauseaondansetron (Zofran) 4 MG tablet Indications: Nausea Take 1 tablet (4 mg) by mouth every 8 (eight) hours if needed for nausea or vomiting for up to 7 days 20 tablet 02/22/2025 03/01/2025 ExpiredStart: 06-13-2020 End: 08-49-0066acekxllgnnn (Zofran) 4 mg tablet Take by mouth. 0 06/13/2020 08/13/2023 Discontinued (Med List Cleanup)Start: 18-58-1315Qjezxz 4 MG Oral Tablet Quantity: 0 Refills: 0 Ordered: 13-Jun-2020 DO Start : 13-Jun-2020 Active Start: 94-04-6997zoopuxzaypp (Zofran) 8 mg tablet Take by mouth every 8 hours if needed. 02/01/2019 Activepot bicarb/potassium cit/ca (POTASSIUM BICARBONATE ORAL) (2 sources) End: 48-41-9149oht bicarb/potassium cit/ca (POTASSIUM BICARBONATE ORAL) Take 99 mg by mouth. 0 09/09/2023 Discontinued (Therapy completed)pot bicarb/potassium cit/ca (POTASSIUM BICARBONATE ORAL) Take 99 mg by mouth. 0 ActivepredniSONE 50 mg oral tablet (2 sources)Start: 94-18-8777forecbYTOL 50 MG Oral Tablet take 30 minutes prior to infusion Quantity: 10 Refills: 0 Ordered: 16-Jan-2021 Sandra Cole MD Start : 16-Jan-2021 ActivetraMADol hydrochloride 50 mg oral tablet (5 sources)Opioid AgonistStart: 12-03-2017 End: 25-54-5657zird 50 mg by mouth once dailyTramadol Discontinued 50 MG PO Daily December 03, 2017 12:00am June 13, 2022 8:53amtraZODone hydrochloride 50 mg oral tablet (5 sources)Serotonin Reuptake InhibitorStart: 12-03-2017 End: 42-35-8009ctpl 50 mg by mouth at bedtimeTrazodone Discontinued 50 MG PO Bedtime December 03, 2017 12:00am June 13, 2022 8:53amZinc (6 sources) End: 10-87-2198ggzv 0.5 tablet by mouth once dailyzinc 50 MG tablet Take 0.5 tablets by mouth 1 (one) time each day 05/25/2024 Discontinued (Therapy c ompleted)take 0.5 tablet by mouth once dailyzinc 50 MG tablet Take 0.5 tablets by mouth 1 (one) time each day ActiveZINC CITRATE (5 sources) End: 39-57-0653LUNC CITRATE ORAL Take by mouth. 07/05/2024 Discontinued (Med List Cleanup)ZINC CITRATE ORAL Take by mouth. ActiveZINC CITRATE ORAL Take by mouth. 0 Active Problems Active Problems Problem ClassificationProblemDateDocumented DateEpisodic/Chronic Administrative/social admission (2 sources)Advance directive discussed with patient; Translations: [Other specified counseling]06-79-1751CxzekhtkBmktet (20 sources)Asthma; Translations: [Unspecified asthma, uncomplicated]Onset: 190418-17-5074LiorxykCjazenyd (20 sources)Nuclear senile cataract; Translations: [Senile nuclear sclerosis] Onset: 160572-07-7842KetuqlkGimvjzj kidney disease (20 sources)Chronic kidney disease stage 3; Translations: [Chronic kidney disease, Stage III (moderate)]Onset: 458590-01-9102RkhsjdyTlboacj kidney disease (3 sources)Chronic kidney disease; Translations: [CHRONIC KIDNEY DISEASE STAGE 3B]Onset: 76-46-9335Pfxrxexqzqr and hemorrhagic disorders (20 sources)Platelet count below reference range; Translations: [Thrombocytopenia, unspecified]Onset: 596778-81-6534TowuazoSdagaxbbjwcq of device; implant or graft (20 sources)Graft versus host disease; Translations: [Olfzf-aqamox-ijog disease, unspecified]ChronicDeficiency and other anemia (1 source)Antineoplastic chemotherapy induced pancytopenia; Translations: [Antineoplastic chemotherapy induced pancytopenia]Onset: 06-71-9248Jolsqgm Disorders of lipid metabolism (20 sources)Mixed hyperlipidemia; Translations: [Mixed hyperlipidemia]Onset: 569388-44-1920VikffdyKkapqxysmm disorders (20 sources)Gastroesophageal reflux disease; Translations: [Gastro-esophageal reflux disease without esophagitis]Onset: 884216-09-6190LtqhxvsOehwtzxrm hypertension (20 sources)Benign essential hypertension; Translations: [Benign essential hypertension]Onset: 830931-46-2952DlxwelkEpslvxgzkecrt symptoms and ill- defined conditions (20 sources)H/O: kidney disease; Translations: [Urinary symptoms ]Onset: 17-26-0134MciwbwajGjniuwgd; including migraine (20 sources)Refractory migraine without aura; Translations: [Migraine without aura, intractable, with status migrainosus]Onset: hronic Headache; including migraine (5 sources)Headache; Translations: [Head ache]EpisodicImmunity disorders (20 sources)Hypogammaglobulinemia; Translations: [Hypogammaglobulinemia, unspecified]Onset: 80-88-8439EtflemjXaqmckj and fatigue (20 sources)Fatigue; Translations: [Chronic fatigue, unspecified]Onset: 384987-61-0077UsenafuTyaeic and vomiting (2 sources)Nausea; Translations: [Nausea]17-93-9318TzfapfpfIku-Hodgkin`s lymphoma (20 sources)Diffuse non-Hodgkin's lymphoma, large cell (clinical); Translations: [Other malignant lymphomas, unspecified site, extranodal and solid organ sites] Onset: 78-91-2413AlcoejgXyg-Hodgkin`s lymphoma (20 sources)History of B-cell lymphoma; Translations: [Personal history of other lymphatic and hematopoietic neoplasms]EpisodicOsteoarthritis (20 sources)Osteoarthritis; Translations: [Unspecified osteoarthritis, unspecified site]Onset: 571940-72-1381QeyeqdhWsofl and ill-defined heart disease (20 sources)Systolic dysfunction; Translations: [Heart disease, unspecified] Onset: 848508-57-3074AwilwwuShjri circulatory disease (20 sources)H/O: hypertension; Translations: [Personal history of other diseases of circulatory system]EpisodicOther connective tissue disease (6 sources)Cramp; Translations: [Cramp of limb]EpisodicOther connective tissue disease (1 source)Cramp and spasm; Translations: [Cramp and spasm]Onset: 02-20-2023 EpisodicOther connective tissue disease (3 sources)Other muscle spasm; Translations: [Spasm of muscle]13-93-1801Munsszqa Other diseases of kidney and ureters (20 sources)Renal mass; Translations: [Unspecified disorder of kidney and ureter]Onset: 403394-10-6878DtcxmqaUavbp diseases of kidney and ureters (20 sources)Hyperparathyroidism due to renal insufficiency; Translations: [Secondary hyperparathyroidism of renal origin]Onset: ChronicOther diseases of kidney and ureters (2 sources)Secondary hyperparathyroidism of renal origin; Translations: [Secondary hyperparathyroidism of renal origin (Multi)]Onset: 02-43-2836Nttlekx Other diseases of kidney and ureters (5 sources)Renal mass; Translations: [Left renal mass]EpisodicOther diseases of veins and lymphatics (3 sources)Vascular insufficiency; Translations: [Venous insufficiency (chronic) (peripheral)]15-13-1301RapubqevQyugo endocrine disorders (20 sources)Secondary hyperparathyroidism; Translations: [Secondary hyperparathyroidism (of renal origin)]Onset: 524484-91-0312IwafafyXpgpp nervous system disorders (1 source)Polyneuropathy, unspecified; Translations: [Polyneuropathy, unspecified]Onset: 77-59-8677NcelvjmHwpwi nervous system disorders (2 sources)Chronic pain; Translations: [Other chronic pain]84-09-7359Nrgysqp Other nervous system disorders (3 sources)Other chronic pain; Translations: [Other chronic pain]05-19-2024 ChronicOther nervous system disorders (20 sources)Polyneuropathy due to drug; Translations: [Drug-induced polyneuropathy]Onset: 175632-45-6494JljxbwvCzazt nervous system disorders (20 sources)Chronic pain syndrome; Translations: [Chronic pain syndrome]Onset: 273010-14-1109CyadhmgGmhzz nutritional; endocrine; and metabolic disorders (20 sources)Morbid obesity; Translations: [Morbid (severe) obesity due to excess calories]Onset: 614171-56-6737LwrkxiqAvlbq nutritional; endocrine; and metabolic disorders (20 sources)Body mass index 30+ - obesity; Translations: [Body mass index (BMI) 35.0-35.9, adult]Onset: 740170-33-8910PhumegxQyxbj screening for suspected conditions (not mental disorders or infectious disease) (10 sources)Other specified abnormal findings of blood chemistry; Translations: [Patient encounter status]Onset: 34-87-6668EilllrcwXffgz skin disorders (3 sources)Eruption; Translations: [Rash and other nonspecific skin eruption] EpisodicOther upper respiratory disease (20 sources)Allergic rhinitis; Translations: [Other allergic rhinitis]Onset: 095102-42-8163KccfvwtQvsav upper respiratory infections (8 sources)Chronic sphenoidal sinusitis; Translations: [Chronic sphenoidal sinusitis]ChronicOther upper respiratory infections (2 sources)Acute maxillary sinusitis; Translations: [Acute maxillary sinusitis, unspecified]79-57-9938NzsmyqetBqzygoqe codes; unclassified (5 sources)Procedure indicated; Translations: [Awaiting organ transplant status] ChronicResidual codes; unclassified (10 sources)Awaiting transplantation; Translations: [Awaiting organ transplant status]ChronicResidual codes; unclassified (20 sources)H/O: tissue/organ recipient; Translations: [Stem cells transplant status]Onset: 562324-92-3736UlvqbfzTpvafgil codes; unclassified (2 sources)Bilateral lower limb edema; Translations: [Localized edema]05-12-2025 EpisodicScreening and history of mental health and substance abuse codes (2 sources)Patient encounter status; Translations: [Encounter for screening examination for other mental health and behavioral disorders]57-28-7962Khrbkuqv Secondary malignancies (20 sources)Secondary malignant neoplasm of kidney; Translations: [Secondary malignant neoplasm of kidney]Onset: 548662-25-0602ZkrozdwEoyyztpca malignancies (20 sources)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; Translations: [Secondary malignant neoplasm of kidney]Onset: 02-05-2023 32-46-0061GxcioccPvhfbmwjb malignancies (20 sources)Secondary malignant neoplasm of back; Translations: [Secondary malignant neoplasm of other parts ofnervous system]Onset: ChronicSecondary malignancies (20 sources)Secondary malignant neoplasm of spleen; Translations: [Secondary malignant neoplasm of other digestive organs]Onset: hronic Spondylosis; intervertebral disc disorders; other back problems (5 sources)Degeneration of cervical intervertebral disc; Translations: [Other cervical disc degeneration, unspecified cervical region]67-67-4169Nxkmbzo Systemic lupus erythematosus and connective tissue disorders (5 sources)Keratoconjunctivitis sicca; 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]ChronicUnclassified (3 sources)COUGH, UNSPECIFIED; Translations: [COUGH, UNSPECIFIED]Onset: 94-98-2454Kqnmissvviva (1 source)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; Translations: [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]Onset: 08-04-2023 Past or Other Problems Problem ClassificationProblemDateDocumented DateEpisodic/ChronicAcute and unspecified renal failure (20 sources)Injury of kidney; Translations: [Acute kidney failure, unspecified] Onset: 838479-26-4139CdszbgayJ Codes: Adverse effects of medical drugs (20 sources)Adverse effect of antineoplastic and immunosuppressive drugs, sequela; Translations: [Adverse reaction to drug]Onset: EpisodicLung disease due to external agents (20 sources)Drug-induced interstitial lung disorders, unspecified; Translations: [Drug-induced interstitial lung disorder]Onset: 868685-25-3003ArqjpyerZdvz disorders (20 sources)Mood disordersOnset: 10-23-2023 Resolved: 538715-66-8894Ekfqznqia of unspecified nature or uncertain behavior (20 sources)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; Translations: [Neoplasm of uncertain behavior of other and unspecified respiratory organs] Resolved: 44-01-1837QapqtqboJxjxo circulatory disease (20 sources)Orthostatic hypotension; Translations: [Orthostatic hypotension] Onset: 262909-95-9067YpdxjfxnJvefe connective tissue disease (20 sources)Spasm; Translations: [Other muscle spasm]Onset: EpisodicOther diseases of veins and lymphatics (20 sources)Peripheral venous insufficiency; Translations: [Venous insufficiency (chronic) (peripheral)]Onset: 684537-50-3691DgqbmfyuDkfyq eye disorders (20 sources)Tear film insufficiency; Translations: [Tear film insufficiency, unspecified]Onset: 86-49-8496ZipeawgvKqgbh eye disorders (20 sources)Dry eyes; Translations: [Tear film insufficiency, unspecified]Onset: 71-20-9438SptkrzkgWbuwx nutritional; endocrine; and metabolic disorders (20 sources)Obesity caused by energy imbalance; Translations: [Other obesity due to excess calories]Onset: 02-05-2023 Resolved: 420148-82-4666HowawqsFkueijbj; pneumothorax; pulmonary collapse (20 sources)Thickening of pleura; Translations: [Pleural plaque without asbestos]Onset: 520904-30-8444HvtbhsorPoqjqhmyijy; intervertebral disc disorders; other back problems (4 sources)Cervical radiculopathy; Translations: [Radiculopathy, cervical region]32-20-4193IuoanzbgZpvekojdpbcf (5 sources)Procedure indicated; Translations: [Stem cell transplant candidate] Unclassified (13 sources)Never smoked tobacco; Translations: [Never a smoker]Unclassified (1 source)COUGH, UNSPECIFIED; Translations: [COUGH, UNSPECIFIED]Onset: 49-66-4965Rszuddmkwvtk (10 sources)Onset: 12-05-2023 Resolved: 090028-71-4942Terqzhgudoma (1 source)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 Residual codes; unclassified (20 sources)DiseaseEpisodic Results Test NameValueInterpretationReference RangeFacilityALL BASIC METABOLIC PANELon 85-90-4796Pozhk gap [Moles/Vol]12.4 mmol/LNOMS HealthcareCalcium [Mass/Vol]9.6 mg/dL8.5 - 10.1 mg/dLNOWI HealthcareChloride [Moles/Vol]106 mmol/L98 - 107 mmol/LNOMS HealthcareCO2 [Moles/Vol]28.9 mmol/L21.0 - 32.0 mmol/LNOMS Healthcare Creatinine [Mass/Vol]1.8 mg/dLHigh0.70 - 1.30 mg/dLNOWI HealthcareGFR/1.73 sq M.predicted CKD-EPI (S/P/Bld) [Vol rate/Area]46Low>=60 mL/min/1.73m 2NOMS HealthcareGlucose [Mass/Vol]146 mg/bPOxtb07 - 106 mg/dLNOWI Healthcare Interpretation and review of laboratory resultsAbnormalNOWI HealthcarePotassium [Moles/Vol]4.3 mmol/L3.5 - 5.1 mmol/LNOMS HealthcareSodium [Moles/Vol]143 mmol/L 136 - 145 mmol/LNOMS HealthcareTBH EGFR-NON AF ZJAHBFVJ45Prz>=60 mL/min/1.73m 2 NOMS HealthcareUrea nitrogen [Mass/Vol]27 mg/dLHigh7.0 - 18.0 mg/dLNOWI HealthcareUrea nitrogen/Creatinine [Mass ratio]15 mg/mgNOWI HealthcareCLINISYNC [facility] HealthcareALL IMMUNOGLOBULIN Mio 18-59-1097ARC IMMUNOGLOBULIN G, QN766 mg/dL603 - 1613 mg/dLNOWI HealthcareComment on above:Performed at: - Lab[address] [id number] Director Of Cardiology: Benjamín Vora PhD, Phone: [phone] [facility]NC[facility] CBC WITH AUTO DIFFon 08-85-9569HDIBTMQTL ABSOLUTE OEEL3ZBKQ HealthcareBasophils/100 WBC (Bld)0.2 %0.2 - 2.0 %NOM Healthcare Eosinophils/100 WBC (Bld)5 %0.9 - 7.0 %[facility] HospitalErythrocyte distribution width (RBC) [Ratio]15.5 %High11.0 - 15.0 %[facility] HealthcareHematocrit (Bld) [Volume fraction]40.5 %Low42.0 - 54.0 %[facility] HealthcareHemoglobin (Bld) [Mass/Vol]13.1 g/dLLow14.0 - 18.0 g/dLNOWI HealthcareIMMATURE GRANULOCYTES ABS AUTO0.13HighNOWI HealthcareImmature granulocytes/100 WBC (Bld)2.2 %High0.0 - 0.5 %[facility] HospitalInterpretation and review of laboratory resultsAbnormalNOWI HealthcareLYMPHOCYTES ABSOLUTE AUTO1.7NOMS HealthcareLymphocytes/100 WBC (Bld) 28.8 %20.5 - 60.0 %[facility] HospitalMCH (RBC) [Entitic mass]27.3 pg25.9 - 34.0 pg [facility] HospitalMCHC (RBC) [Mass/Vol]32.3 g/dL29.9 - 35.2 g/dLNOKindred HospitalMCV (RBC) [Entitic vol]84.4 fL80.0 - 94.0 fLNOWI HealthcareMONOCYTES ABSOLUTE AUTO 0.4NOMS HealthcareMonocytes/100 WBC (Bld)7.2 %1.7 - 12.0 %[facility] NEUTROPHILS ABSOLUTE AUTO3.3NOMS HealthcareNeutrophils/100 WBC (Bld)56.6 %43.0 - 75.0 %[facility] HospitalPlatelet mean volume (Bld) [Entitic vol]10 fL9.5 - 13.5 fL [facility] HospitalTBH EO #0.3NOMS HealthcareTBH [id number] [facility] HospitalTBH RBC4.8NOMS HealthcareTB WBC5.8NOMS HealthcareCLINISYNCNOMS HealthcareCCF CMP (CMP) (FOR REMOTE [facility] USE)on 89-16-7079Ssvfzlu [Mass/Vol]3.5 g/dL3.4 - 5.0 g/dLNOWI HealthcareALBUMIN GLOBULIN RATIO1.1NOMS HealthcareALP [Catalytic activity/Vol]97 U/L46 - 116 U/LNOMS HealthcareALT [Catalytic activity/Vol]47 U/L16 - 63 U/LNOMS HealthcareAnion gap [Moles/Vol]12 mmol/LNOMS HealthcareAST [Catalytic activity/Vol]28 U/L15 - 37 U/LNOMS HealthcareBilirubin [Mass/Vol]0.5 mg/dL0.2 - 1.0 mg/dLNOMS HealthcareCalcium [Mass/Vol]9.3 mg/dL8.5 - 10.1 mg/dLNOMS HealthcareChloride [Moles/Vol]105 mmol/L98 - 107 mmol/LNOMS HealthcareCO2 [Moles/Vol]30 mmol/L21.0 - 32.0 mmol/LNOMS HealthcareCreatinine [Mass/Vol]1.86 mg/dLHigh0.70 - 1.30 mg/dLNOMS HealthcareGFR/1.73 sq M.predicted CKD-EPI (S/P/Bld) [Vol rate/Area]45Low>=60 mL/min/1.73m 2NOMS HealthcareGlobulin (S) [Mass/Vol]3.1 g/dLNOMS HealthcareGlucose [Mass/Vol]125 mg/yITojv58 - 106 mg/dL [facility] HealthcareInterpretation and review of laboratory resultsAbnormalNOMS HealthcarePotassium [Moles/Vol]4 mmol/L3.5 - 5.1 mmol/LNOMS HealthcareProtein [Mass/Vol]6.6 g/dL6.4 - 8.2 g/dLNOWI HealthcareSodium [Moles/Vol]143 mmol/L136 - 145 mmol/LNOMS HealthcareTBH EGFR-NON AF [id number]>=60 mL/min/1.73m 2NOMS HealthcareUrea nitrogen [Mass/Vol]30 mg/dLHigh7.0 - 18.0 mg/dLNOWI Healthcare Urea nitrogen/Creatinine [Mass ratio]16.1 mg/mgNOMS HealthcareCLINISYNCNSURGICAL HOS[facility] [place] HealthcareCCF CMP (CMP) (FOR REMOTE [facility] USE)on 88-87-3254Uvrowqf [Mass/Vol]3.4 g/dL3.4 - 5.0 g/dLNOWI HealthcareALBUMIN GLOBULIN RATIO1.1NOMS HealthcareALP [Catalytic activity/Vol]91 U/L46 - 116 U/LNOMS HealthcareALT [Catalytic activity/Vol]42 U/L16 - 63 U/LNOMS HealthcareAnion gap [Moles/Vol]12.9 mmol/L NOMS HealthcareAST [Catalytic activity/Vol]24 U/L15 - 37 U/LNOMS Healthcare Bilirubin [Mass/Vol]0.6 mg/dL0.2 - 1.0 mg/dLNOWI HealthcareCalcium [Mass/Vol]9 mg/dL8.5 - 10.1 mg/dLNOWI HealthcareChloride [Moles/Vol]103 mmol/L98 - 107 mmol/LNOMS HealthcareCO2 [Moles/Vol]29.1 mmol/L21.0 - 32.0 mmol/LNOMS Healthcare Creatinine [Mass/Vol]1.81 mg/dLHigh0.70 - 1.30 mg/dLNOMS HealthcareGFR/1.73 sq M.predicted CKD-EPI (S/P/Bld) [Vol rate/Area]46Low>=60 mL/min/1.73m 2NS[facility] [place] HealthcareGlobulin (S) [Mass/Vol]3.1 g/dLNOWI HealthcareGlucose [Mass/Vol]153 mg/xOAmls40 - 106 mg/dLNOWI HealthcareInterpretation and review of laboratory resultsAbnormalMCKAY[facility]DEE [facility]ITAL [facility] HealthcarePotassium [Moles/Vol]4 mmol/L3.5 - 5.1 mmol/LNOMS HealthcareProtein [Mass/Vol]6.5 g/dL6.4 - 8.2 g/dLNOWI HealthcareSodium [Moles/Vol]141 mmol/L136 - 145 mmol/LNMosaic Life Care at St. JosephTBH EGFR-NON AF [id number] Low>=60 mL/min/1.73m 2[facility] [place] HealthcareUrea nitrogen [Mass/Vol]26 mg/dLHigh7.0 - 18.0 mg/dLNOWI HealthcareUrea nitrogen/Creatinine [Mass ratio]14.4 mg/mgNOWI HealthcareCLINISYNCNSURGICAL HOSP[facility] [place] [place] HealthcareALL CBC WITH AUTO DIFFon 37-76-5994Yjricukeyub distribution width (RBC) [Ratio]15 %11.0 - 15.0 %NOMS HealthcareHematocrit (Bld) [Volume fraction]42.5 %42.0 - 54.0 %NOM HealthcareHemoglobin (Bld) [Mass/Vol] 13.6 g/dLLow14.0 - 18.0 g/dLNOWI HealthcareInterpretation and review of laboratory resultsAbnormalCoxHealth (RBC) [Entitic mass]26.9 pg25.9 - 34.0 pgNOMS HealthcareMCHC (RBC) [Mass/Vol]32 g/dL29.9 - 35.2 g/dLPershing Memorial HospitalV (RBC) [Entitic vol]84 fL80.0 - 94.0 fLFulton State HospitalPlatelet mean volume (Bld) [Entitic vol]10.2 fL9.5 - 13.5 fLNOKindred HospitalTB ADR604FjmOMXN HealthcareTB RBC5.06NOKindred HospitalTB WBC4.9NOKindred HospitalCLINISYNCNHannibal Regional Hospital IMMUNOGLOBULIN Mio 31-12-9438YGS IMMUNOGLOBULIN G, QN741 mg/dL603 - 1613 mg/dLMCKAY-DEE HOSPITAL CENTER HealthcareComment on above:Performed at: [facility] Lab[address] [id number] Director Of Cardiology: Benjamín Vora PhD, Phone: [phone] CLINISYVanderbilt Rehabilitation Hospital CBC WITH AUTO DIFFon 35-24-4590RFPOPUBLM ABSOLUTE AUTO0.0NOWI HealthcareBasophils/100 WBC (Bld)0.2 %0.2 - 2.0 %[facility] Eosinophils/100 WBC (Bld)4.6 %0.9 - 7.0 %NOM HealthcareErythrocyte distribution width (RBC) [Ratio]15.4 %High11.0 - 15.0 %NOMS HealthcareHematocrit (Bld) [Volume fraction]43.8 %42.0 - 54.0 %NOM HealthcareHemoglobin (Bld) [Mass/Vol] 13.8 g/dLLow14.0 - 18.0 g/dLFulton State HospitalIMMATURE GRANULOCYTES ABS AUTO0.13 HighNOKindred HospitalImmature granulocytes/100 WBC (Bld)2.9 %High0.0 - 0.5 %NOM HealthcareInterpretation and review of laboratory resultsAbnormalFulton State Hospital LYMPHOCYTES ABSOLUTE AUTO1.2NOMS [facility] HospitalLymphocytes/100 WBC (Bld)27.0 %20.5 - 60.0 %Pershing Memorial HospitalH (RBC) [Entitic mass]26.6 pg25.9 - 34.0 pgNOFreeman Cancer InstituteHC (RBC) [Mass/Vol]31.5 g/dL29.9 - 35.2 g/dLNOMS HealthcareMCV (RBC) [Entitic vol]84.6 fL80.0 - 94.0 fLNOMS HealthcareMONOCYTES ABSOLUTE AUTO0.4NOMS HealthcareMonocytes/100 WBC (Bld)7.7 %1.7 - 12.0 %NOMS HealthcareNEUTROPHILS ABSOLUTE AUTO2.6NOMS HealthcareNeutrophils/100 WBC (Bld)57.6 %43.0 - 75.0 %NOMS HealthcarePlatelet mean volume (Bld) [Entitic vol]11.2 fL9.5 - 13.5 fLNOMS HealthcareTBH EO #0.2NOMS HealthcareTBH MOH777GxwOBYA HealthcareTBH RBC5.18NOMS HealthcareTBH WBC4.6NOMS HealthcareCLINISYNCNOMS HealthcareISTAT XRay CREon 00-16-7765WSKLW GFR36.811[facility] Physician GroupComment on above: Result Comment: PERFORMED BY: [place] [address] PATHOLOGIST [employer]PERATION FORMING MACHINE SETTER BRIAN BALL M.D.Performed By: #### ISCRE #### [address] cervical spine wo/w conon 96-90-1737HG cervical spine wo/w [facility] [place] [address] MRI Report Signed Patient: Katerina Danielle MR#: [id number] 0 : 1960 Acct:[id number] Age/Sex: 63 / M ADM Date: 04/15/24 Loc: Room: Type: [facility] Attending Dr: Nadeem Morrison DO Copies to: [...] Sorin Shah M.D.04/15/2024 10:18 PM Dictation Location: [place] [address] Transcribed By: [facility] 04/15/242217 Dictated By: Sorin Shah II, MD 04/15/242210 Signed By: 04/15/242217[facility] Physician [facility] head/brain wo/w jeanne 52-53-8867ZA head/brain wo/w [facility] [place] [address] MRI Report Signed Patient: Katerina Danielle MR#: [id number] 0 : 1960 Acct:[id number] Age/Sex: 63 / M ADM Date: 04/15/24 Loc: MR Room: Type: [facility] Attending Dr: Nadeem Morrison DO Copies to: [...] Sorin Shah M.D.04/15/2024 10:23 PM Dictation Location: [place] [address] Transcribed By: PWS 04/15/242222 Dictated By: Sorin Shah II, MD 04/15/242217 Signed By: 04/15/242222NoHighlands-Cashiers Hospital Physician GroupNo Panel InformationOrdered By: Nadeem Morrison on 63-55-1344Sslpfyn Estimated GFR (eGFR)36.811Ohio[facility] Memorial HospitalWhole blood creatinine measurementOrdered By: Nadeem Morrison on 35-61-9262Dsbklslbub [Mass/Vol]2.0 mg/dLHigh0.6-1.3FCleveland ClinicComment on above:ER/ESD physician is notified/shown all ISTAT results.Critical values may be confirmed by laboratorytesting ifdeemed necessary by ER attending doctor.Result Comment: ER/ESD physician is notified/shown all ISTAT results. Critical values may be confirmed by laboratory testing if deemed necessary by ER attending doctor.Performed By: #### ISCRE #### [place] [address] USAOffice Visit (Onco-Nephrology - Established)on 05-29-2023 Follow-up visitDiagnoses/Problems Benign essential HTN (401.1) (I10) CKD (chronic kidney disease), stage III (585.3) (N18.30) Hyperparathyroidism, secondary (588.81) (N25.81) Orders Benign essential HTN, CKD (chronic kidney disease), stage III, Hyperparathyroidism, secondary Basic Metabolic Panel; Status:Active; Requested for:34Ohj3777; Parathormone Intact, Serum; Status:Active; Requested for:53Dyp6409; Provider Impressions 1- CKD III: His Cr [...] hemoptysis. No hematuria. No rectal bleeding. No m wilmer. No epistaxis. The patient denies any urinary [...] Tablettake 20 minutes prior (more content not included)...NormalUH TouchworksPhone Note - Heme Onc-appointment question - 04/29/23 appton 29-81-4086Tpwqt Note - Heme Onc-appointment question - 04/29/23 apptPhone Call Information: Patient Demographics: Name: KATERINA DANIELLE Date: 1960 Address: [address] [place] [address] Date and Time: 28-Apr-2023 09:18 Caller Information: call from Call From: patient Primary Phone Number: [phone] Reason for Call: Reason for Callappointment question, [...] Updated: 28-Apr-2023 09:34 by Tea Oro (N MGR)[facility] HospitalPhone Note - Heme Onc-test resultson 29-04-5663Lahlw Note - Heme Onc-test resultsPhone Call Information: Patient Demographics: Name: KATERINA DANIELLE Date: 1960 Address: [address] [place] [address] Date and Time: 15-Apr-2023 14:56 Caller Information: call from Call From: patient Primary Phone Number: [phone] Reason for Call: Reason for Calltest results Message: Message: Calling to see if Dr. Sears had time to see results from labs on Friday His PCP really didn't find anything wrong and wants to order a CT. Patient would like to know Dr. Sears's thoughts first before continuing with this. Should have come from [place]. Team Communication: Team Communications: I spoke Katerina [...] Last Updated: 15-Apr-2023 15:30 by Zofia Smith (RN)[facility] HospitalPhone Note - Heme Onc-pain - Pain/tenderness in abdomenon 43-53-9533Zvprb Note - Heme Onc-pain - Pain/tenderness in abdomenPhone Call Information: Patient Demographics: Name: KATERINA DANIELLE Date: 1960 Address: [address] [place] [address] Date and Time: 08-Apr-2023 09:26 Caller Information: call from Call From: patient Primary Phone Number: [phone] Reason for Call: Reason for Callpain, Pain/tenderness [...] Results Last Updated: 08-Apr-2023 10:46 by Nikki Aguilera)[facility] HospitalInitial Visit (Pain Medicine)on 86-44-0970Cvflrej Visit (Pain Medicine) Diagnoses/Problems Cramps, muscle, general [...] He has been diagnosed with large B-cell lymphomacurrently under remission. 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 He has tried multiple different [...] last and you didn't have money to getmore: No History of Present Illness OPIOID Opioid Risk Screening: Opioid Risk Tool Last opioid risk screening date/ordered today: 02/20/23 Patient's total score is 0, within range of Low Risk (<= 3). This 62 year old male here for evaluation of generalized cramping. The patient has been experiencing these symptoms for last 5 years. The patient describes the pain as aching and tight. The patient'scurrent pain score is 4 on a scale from 0-10. The pain is worsened by cramping and is alleviated bywalk and medications for cramp. Since the start of the symptoms the pain has been worsening. The patient denies any fever, chills, weight loss, weakness, numbness, bladder/ bowel incontinence,history of IV drug abuse, recent trauma. Review of Systems Constitutional: no fever. Eyes: no eye pain. ENT: no ea (more content not included)...NormalUH TouchworksClinic Note - Heme Onc Schedulingon 90-72-4562Lavgim Note - Heme Onc SchedulingRetrieve Patient Instructions: Patient Instructions: Patient Instructions: RetrievePatient Instructions Instructions patient is scheduled w/ Pain Mngmnt as requested. Earliest available 02/19. End of Visit Documentation: Clinic Location/Phone Number: Clinic Location/Phone Number: [facility] End Of Visit MU Report Item: Visit Summary given or mailed to patientyes mailed Electronic Signatures: iNcole Jeong (SEC) (Signed 31-Jan-2023 16:14) Authored: Retrieve Patient Instructions, End of Visit Documentation Last Updated: 31-Jan-2023 16:14 by Nicole Jeong (SEC)[facility] HospitalPhone Note - Heme Onc-appointment question - Referral to paion 01-31-2023 Phone Note - Heme Onc-appointment question - Referral to paiPhone Call Information: Patient Demographics: Name: KATERINA DANIELLE Date: 1960 Address: [address] [place] [address] Date and Time: 31-Jan-2023 12:13 Caller Information: call from Call From: patient Primary Phone Number: [phone] Reason for Call: Reason for Callappointment question, [...] Updated: 31-Jan-2023 12:22 by Tea Oro (N MGR)[facility] HospitalOffice Visit (Onco-Nephrology - Established)on 63-53-2125Adjmrr-up visitDiagnoses/Problems Benign essential HTN (401.1) (I10) CKD (chronic [...] transplant candidate Basic Metabolic Panel; Status:Active; Requested for:37Crd7387; Parathormone Intact, Serum; Status:Active; Requested for:21Hdw5557; Phosphorus, Serum; Status:Active; Requested for:70Zww4733; Unlinked Stop: Losartan Potassium 25 MG Oral [...] hemoptysis. No hematuria. No rectal bleeding. No m wilmer. No epistaxis. The patient denies any urinary [...] AM No Known Food (more content not included)...NormalUH TouchworksPhone Note - Heme Onc-order entryon 87-25-3617Njaqa Note - Heme Onc-order entryPhone Call Information: Patient Demographics: Name: KATERINA DANIELLE Date: 1960 Address: [address] [place] [address] Primary Phone Number: [phone] Reason for Call: Reason for Callorder entry [...] Last Updated: 29-Jan-2023 14:13 by Zofia Smith (RN)[facility] HospitalTobacco Screening.on 00-47-5381Mcye risk assessmentb) One or more falls in the last year-[facility] 3 DO Work Phone: Tobacco use status CPHSb) NoMP-[facility] 3 DO Work Phone: Clinic Note - Heme Onc Schedulingon 68-77-8927Ofuvph Note - Heme Onc SchedulingRetrieve Patient Instructions: Patient Instructions: Patient Instructions: RetrievePatient Instructions End of Visit Documentation: Clinic Location/Phone Number: Clinic Location/Phone Number: [facility] End Of Visit MU Report Item: Visit Summary given or mailed to patientyes mailed to patient Electronic Signatures: Nicole Jeong (SEC) (Signed 24-Jan-2023 14:06) Authored: Retrieve Patient Instructions, End of Visit Documentation Last Updated: 24-Jan-2023 14:06 by Nicole Jeong (SEC)[facility] HospitalClinic Note - Heme Onc-Follow Up Visiton 61-52-9728Kadtuu Note - Heme Onc-Follow Up VisitPatient Visit Information: Visit Type: Follow Up Visit [...] referred to Dr. Rodriguez in oncology at [facility] for evaluation. 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 Bone marrow biopsy was done which was negative for involvement with lymphoma . He also underwent an LP with low yield. Because of his meningeal enhancement and location close to [employer], he was treated with hyperCVAD-MA. He received [...] was compared to this patient's previous biopsy ([id number]). The previous biopsy demonstrated areas of necrosis [...] TP53 mutations. The patient was enrolled on RPJX1196, Venetoclax+RICE. Cycle 1 started 10/29/17. Had tumor [...] pneumonitis. The patient was recently readmitted to [facility] (06/16-06/18/18) for fever and PNA. 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 He completed by mouth Levaquin. The patient was admitted to [facility] (08/18-08/21/18) with a new PE. He [...] CAR T Cell infusion 01/04/19 with tisagenlecleucel (24tidyKiind.me/Novartis) with preparative regimen of fludarabine and cytoxan. History of Present Illness: ID Statement: KATERINA DANIELLE is a 62 year old Male (more content not included)...[facility] HospitalClinic Note - Intakeon 84-02-8485Aibzzw Note - IntakePatient Visit Information: Visit TypeFollow Up Visit Source [...] falls riskimplement environmental risk factors interventions Spiritual/Procedural: Spiritual/cultural/temple practices important for us to knowno Alcohol, [...] Last Updated: 22-Jan-2023 13:02 by Lindsay Yadav (PCNA)[facility] HospitalCOMPREHENSIVE PANELon 61-13-9064GCZSFTDDsnonsihBiscixPCRice Memorial HospitalComment on above:Order Comment: TEST COMPREHENSIVE PANEL WAS CANCELLED, 01/21/2023 08:08 NO SPECIMEN RECEIVED IN LAB.Performed By: #### CMP #### [address] [place] [address]MLISDNST PHOSPHATASECanNorth Valley Health Center Comment on above:Order Comment: TEST COMPREHENSIVE PANEL WAS CANCELLED, 01/21/2023 08:08 NO SPECIMEN RECEIVED IN LAB.Performed By: #### CMP #### [address] [place] [address]GTUGzhmzsaqZfrrjwAPKittson Memorial HospitalComment on above: Order Comment: TEST COMPREHENSIVE PANEL WAS CANCELLED, 01/21/2023 08:08 NO SPECIMEN RECEIVED IN LAB.Result Comment: Patients treated with Sulfasalazine may generate falsely decreased results for ALT.Performed By: #### CMP #### [address] [place], [place] [address]CHVPR GAPCanNorth Valley Health CenterComment on above:Order Comment: TEST COMPREHENSIVE PANEL WAS CANCELLED, 01/21/2023 08:08 NO SPECIMEN RECEIVED IN LAB.Performed By: #### CMP #### [address] [place] [address]LOEUblrjwocXonzheXANorth Valley Health CenterComment on above: Order Comment: TEST COMPREHENSIVE PANEL WAS CANCELLED, 01/21/2023 08:08 NO SPECIMEN RECEIVED IN LAB.Performed By: #### CMP #### [address] [place], [place] [address]EJJZVJIFCHLRqczjnolLfcarrZFRice Memorial HospitalComment on above:Order Comment: TEST COMPREHENSIVE PANEL WAS CANCELLED, 01/21/2023 08:08 NO SPECIMEN RECEIVED IN LAB.Performed By: #### CMP #### [address] [place], [place] [address]OWPMBTBEO,TOTALCanNorth Valley Health Center Comment on above:Order Comment: TEST COMPREHENSIVE PANEL WAS CANCELLED, 01/21/2023 08:08 NO SPECIMEN RECEIVED IN LAB.Performed By: #### CMP #### [address] [place], [place] [address]ICPZHZELdzbtdgdVmxleaIKNorth Valley Health CenterComment on above:Order Comment: TEST COMPREHENSIVE PANEL WAS CANCELLED, 01/21/2023 08:08 NO SPECIMEN RECEIVED IN LAB.Performed By: #### CMP #### [address] [place], [place] [address]KOUVJZYDOzokorcmUdlovmQWNorth Valley Health CenterComment on above:Order Comment: TEST COMPREHENSIVE PANEL WAS CANCELLED, 01/21/2023 08:08 NO SPECIMEN RECEIVED IN LAB.Performed By: #### CMP #### [address] [place], [place] [address]GTMQVASFUQUygyshsyZktxpvJTNorth Valley Health CenterComment on above:Order Comment: TEST COMPREHENSIVE PANEL WAS CANCELLED, 01/21/2023 08:08 NO SPECIMEN RECEIVED IN LAB.Performed By: #### CMP #### [address] [place], [place] [address]bWXF FEMALECanNorth Valley Health CenterComment on above:Order Comment: TEST COMPREHENSIVE PANEL WAS CANCELLED, 01/21/2023 08:08 NO SPECIMEN RECEIVED IN LAB.Result Comment: CALCULATIONS OF ESTIMATED GFR ARE PERFORMED USING THE 2020 CKD-EPI STUDY REFIT EQUATION WITHOUT THE RACE VARIABLE FOR THE IDMS-TRACEABLE CREATININE METHODS. https://jasn.asnjournals.org/content/early//ASN.0997494031Jhimimbfn By: #### CMP #### [address] [place] [address]mRDR MALECanNorth Valley Health CenterComment on above:Order Comment: TEST COMPREHENSIVE PANEL WAS CANCELLED, 01/21/2023 08:08 NO SPECIMEN RECEIVED IN LAB.Result Comment: CALCULATIONS OF ESTIMATED GFR ARE PERFORMED USING THE 2020 CKD-EPI STUDY REFIT EQUATION WITHOUT THE RACE VARIABLE FOR THE IDMS-TRACEABLE CREATININE METHODS. https://jasn.asnjournals.org/content/earlyASN.6070933394Dgcbrtvll By: #### CMP #### [address] [place] [address]EITVDPQBspdrtxtObvztsVVNorth Valley Health CenterComment on above:Order Comment: TEST COMPREHENSIVE PANEL WAS CANCELLED, 01/21/2023 08:08 NO SPECIMEN RECEIVED IN LAB.Performed By: #### CMP #### [address] [place] [address]BIUDNRROQVjdqjqxrOflngbHXNorth Valley Health CenterComment on above:Order Comment: TEST COMPREHENSIVE PANEL WAS CANCELLED, 01/21/2023 08:08 NO SPECIMEN RECEIVED IN LAB.Performed By: #### CMP #### [address] [place] [address]OOUSAUYvqmsliuHpfymsSCRice Memorial HospitalComment on above:Order Comment: TEST COMPREHENSIVE PANEL WAS CANCELLED, 01/21/2023 08:08 NO SPECIMEN RECEIVED IN LAB.Performed By: #### CMP #### [address] [place] [address]XICMS PROTEINCanNorth Valley Health CenterComment on above:Order Comment: TEST COMPREHENSIVE PANEL WAS CANCELLED, 01/21/2023 08:08 NO SPECIMEN RECEIVED IN LAB.Performed By: #### CMP #### [address] [place] [address]TXRT NITROGENCanceledKittson Memorial HospitalComment on above:Order Comment: TEST COMPREHENSIVE PANEL WAS CANCELLED, 01/21/2023 08:08 NO SPECIMEN RECEIVED IN LAB.Performed By: #### CMP #### [facility] [address] [place] [address]UPDbm 48-17-4282CVDRiiqdtliRxsibkNFKittson Memorial Hospital Comment on above:Order Comment: TEST LDH WAS CANCELLED, 01/21/2023 08:08 NO SPECIMEN RECEIVED IN LAB.Performed By: #### LDH ####[facility] [place] [address]ZQVLHHQYNje 69-43-0862UVPJFSMYEVatoqjwpIaihmk CentraState Healthcare SystemComment on above:Order Comment: TEST MAGNESIUM WAS CANCELLED, 01/21/2023 08:08 NO SPECIMEN RECEIVED IN LAB.Performed By: #### MG ####[facility] [facility] [place], [place] [address]Aqdeq Note - Heme Onc-Insurance Medical Hxon 38-59-2885Lqqke Note - Heme Onc-Insurance Medical HxPhone Call Information: Patient Demographics: Name: KATERINA DANIELLE Date: 1960 Address: [address] [place] [address] Date and Time: 14-Jan-2023 10:30 Caller Information: call from Call From: patient Primary Phone Number: [phone] Reason for Call: Reason for CallInsurance Medical Hx Message: Message: Insurance company re-evaluating him ([facility]). Would like a copy of [...] Updated: 14-Jan-2023 14:19 by Ashley Dugan (UNIT SECT)[facility] Memorial HospitalIMMUNOGLOBULIN IGG QUANTITATIVEon 01-03-2023 Immunoglobulin G, Qn, Fzgxx732 mg/bJWgahui206-6819Dyh [facility] HospitalComment on above:Performed By: #### MG, LDH, CMP #### [facility] [address] [place] [address] Dr. Ladan Pool Visiton 38-93-4168Gbabgb-up visitDiagnoses/Problems Hypogammaglobulinemia (279.00) (D80.1) CVID (common variable immunodeficiency) [...] All medical record entries made by the Ronny were at my direction and personally dictated by me. Maryuri reviewed the chart and agree that the record accurately reflects my personal performance of the history, physical exam, discussion and plan. Provider Impressions CVID, hypogammaglobulinemia - Chronic, controlled. He has been ill requiring numerous antibiotic courses. Doing well on HyQvia infusions every 28 days with only mild bloating and abdominal tendernesspost infusion. He will have IgG level. We will call you with results and further recommendations. Continue infusions with no change. Record release signed for PCP and Nohelia Machado DO, Community Health Nurse in [facility]. If you develop fever, loss of taste [...] that point, PCP referred patient to a Community Health Nurse at [facility]. He saw Nohelia Machado DO, Community Health Nurse at [facility], did a breathing test and ordered a CXR. He was Dxdwith a lung disease and started on Arnuity. Patient thinks he had his labs ordered here last visit. Patient has blood work due and routine labsand questions if he can have his IgG [...] Breath ActivatedINHALE 1 PUFF (more content not included)...NormalRehabilitation Hospital of Rhode IslandHEREDITARY HEMOCHROMATOSIS, DNA ANALYSISon 14-80-0083Mejaocmndi HemochromatosisComment NormalAcmc Healthcare System GlenbeighComment on above:Result Comment: Results: c.845G>A (p.Cbm422Kry) - Not Detected c.187C>G (p.Mgs98Iqc) - Detected, heterozygous c.193A>T (p.Zfv39Dsx) - Not Detected Not associated with increased [...] for patients who are homozygous for c.845G>A (p.Xnd343Jqm) and have yet to experience clinical symptoms. . Comments: The most common HFE variants associated with hereditary hemochromatosis are c.845G>A (p.Lli251Cay), c.187C>G (p.Bag29Fcu), c.193A>T (p.Xqg18Edr). While patients homozygous for c.845G>A (p.Jvc569Wyz) are the most likely to present clinical symptoms, less than 10% develop clinically significant iron overload with tissue and organ damage. . Genetic counseling is recommended to discuss the potential clinical implications of positive results, as well as recommendations for testing family members. Genetic Coordinators are available for health care providers to discuss results at [phone] ([phone]). . Test Details: Three variants analyzed: c.845G>A (p.Jfy387Swp), commonly referred to as C282Y c.187C>G (p.Ohx14Kel), commonly referred to as H63D c.193A>T (p.Evr66Jxr), commonly referred to as S65C . Methods/Limitations: [...] developed and its performance characteristics determined by [employer]. It has not been cleared or approved by the Food and Drug Administration. . References: Jared BR, Keith PC, Shelby KV, Rishabh LW, Heriberto ; [place] [employer] for [employer] Liver Diseases. Diagnosis and management of hemochromatosis: 2011 practice guideline by the [place] [employer] the [employer] Liver Diseases. Hepatology. 2011 Sam;54(1):328-43. doi: 10.1002/hep.84083. PMID: 79042943; PMCID: CHO9675909. Consuelo G, Lisa P, Janeth CODY, Marcel H, Nick O, Jeffrey S, Ryder I, Frederick M, Candace Hale. EMQN best practice guidelines for the molecular genetic diagnosis of hereditary hemochromatosis (HH). Eur J Hum Winter. 2016 Nov;24(4):479-41. doi: 10.1038/ejhg.2015.128. Epub 2014Mar 08. PMID: 01254009; PMCID: [id number]. . Leslee Cadena, PhD, [facility] Dioni Trinidad, PhD Sunday Sofia, PhD, [facility] Angelito Beard, PhD, [facility] Tom Wills, PhD, [facility] Helio Herny, PhD, [facility] Katie Collazo, PhD, [facility] Yun Peterson, PhD, [facility] HEALTHPerformed By: #### HHDNA #### [facility] [address] [place] [address] Dr. Ladan McdonaldFERRITINon 39-97-3887Pkzigotn [Mass/Vol]1497.0 ng/mLCritically high26.0-388.0The [facility] HospitalComment on above:Performed By: #### MG, LDH, CMP #### [facility] [address] [place] [address] Dr. Ladan Alcantara AND TIBCon 10-11-2022% BILHKXYFNE28.6 %NormalThe [facility] Regional HospitalComment on above:Performed By: #### MG, LDH, CMP #### [facility] [address] [place] [address] Dr. Ladan Alcantara [Mass/Vol]99.0 ug/hFMitoyv62.0-175.0[facility] Comment on above:Performed By: #### MG, LDH, CMP #### [facility] [address] [place] [address] Dr. Ladan McdonaldTIBC KTHSKG122.0 ug/zDNjruxs115.0-450.0The [facility] Comment on above:Performed By: #### MG, LDH, CMP #### [facility] [address] [place] [address] Dr. Ladan McdonaldMAGNESIUMon 07-20-4274Scuoosjfy [Mass/Vol]2.2 mg/dLNormal1.8-2.4 The [facility] HospitalComment on above:Performed By: #### MG, LDH, CMP #### [facility] [address] [place] [address] Dr. Ladan Tovar 89-71-6434PNI3.839 uIU/mLNormal0.358-3.740The [facility] on above:Performed By: #### MG, LDH, CMP #### [facility] [address] [place] [address] Dr. Ladan Casillas B12 AND FOLATEon 34-31-7639Eyhndjngt (Vitamin B12) [Mass/Vol] 632.0 pg/nFHyomah720.0-986.0The [facility] on above:Performed By: #### FERR, B12FOL, FETIBC #### [facility] [address] [place] [address] Dr. Ladan McdonaldFOLATE10.20 ng/mLNormal8.60-58.90The [facility] HospitalComselect [facility] on above:Performed By: #### FERR, B12FOL, FETIBC #### [facility] [address] [place] [address] Dr. Ladan McdonaldCBC AND DIFFERENTIALon 10-10-2022% AUTOMATED IMMATURE GRAN CancelRice Memorial HospitalComment on above:Order Comment: TEST CBC AND DIFFERENTIAL WAS CANCELLED, 10/10/2022 15:36 NO SAMPLE RECIEVED/RELEASED IN ERRORResult Comment: Immature Granulocyte Count (IG) includes promyelocytes, myelocytes and metamyelocytes but does not include bands. Percent differential counts (%) should be interpreted in the context of the absolute cell counts (cells/L).Performed By: #### CBCDF #### [address] [place] [address]% BASOPHILCanceledKittson Memorial HospitalComment on above:Order Comment: TEST CBC AND DIFFERENTIAL WAS CANCELLED, 10/10/2022 15:36 NO SAMPLE RECIEVED/RELEASED IN ERRORPerformed By: #### CBCDF #### [address] [place] [address]% EOSINOPHILCanceledKittson Memorial HospitalComment on above:Order Comment: TEST CBC AND DIFFERENTIAL WAS CANCELLED, 10/10/2022 15:36 NO SAMPLE RECIEVED/RELEASED IN ERRORPerformed By: #### CBCDF #### [address] [place] [address]% LYMPHOCYTECanceledKittson Memorial HospitalComment on above:Order Comment: TEST CBC AND DIFFERENTIAL WAS CANCELLED, 10/10/2022 15:36 NO SAMPLE RECIEVED/RELEASED IN ERRORPerformed By: #### CBCDF #### [address] [place] [address]% MONOCYTECanceledKittson Memorial HospitalComselect specialty hospital[facility] on above:Order Comment: TEST CBC AND DIFFERENTIAL WAS CANCELLED, 10/10/2022 15:36 NO SAMPLE RECIEVED/RELEASED IN ERRORPerformed By: #### CBCDF #### [address] [place] [address]% NEUTROPHILCanceledKittson Memorial HospitalComment on above:Order Comment: TEST CBC AND DIFFERENTIAL WAS CANCELLED, 10/10/2022 15:36 NO SAMPLE RECIEVED/RELEASED IN ERRORPerformed By: #### CBCDF #### [address] [place], [place] [address]RGQLXKSALxsilxegBclvjqRWKittson Memorial HospitalComment on above:Order Comment: TEST CBC AND DIFFERENTIAL WAS CANCELLED, 10/10/2022 15:36 NO SAMPLE RECIEVED/RELEASED IN ERRORPerformed By: #### CBCDF #### [address] [place], [place] [address]XHMRZPOVWVRZDhugpljgAiauuoQERice Memorial HospitalComment on above:Order Comment: TEST CBC AND DIFFERENTIAL WAS CANCELLED, 10/10/2022 15:36 NO SAMPLE RECIEVED/RELEASED IN ERRORPerformed By: #### CBCDF #### [address] [place], [place] [address]PWXDHBLEQSGwizmsdsEamavrVRRice Memorial HospitalComment on above:Order Comment: TEST CBC AND DIFFERENTIAL WAS CANCELLED, 10/10/2022 15:36 NO SAMPLE RECIEVED/RELEASED IN ERRORPerformed By: #### CBCDF #### [address] [place], [place] [address]NAVPayrtdreOjmmvtMQAllina Health Faribault Medical CenterComselect specialty hospital-[place] on above: Order Comment: TEST CBC AND DIFFERENTIAL WAS CANCELLED, 10/10/2022 15:36 NO SAMPLE RECIEVED/RELEASED IN ERRORPerformed By: #### CBCDF #### [address] [place], [place] [address]FAQXtarfmybTgzyotBJPerham Health HospitalComselect specialty hospital-[place] on above: Order Comment: TEST CBC AND DIFFERENTIAL WAS CANCELLED, 10/10/2022 15:36 NO SAMPLE RECIEVED/RELEASED IN ERRORPerformed By: #### CBCDF #### [address] [place], [place] [address]VOSCEATLUOZojywgomWfzfgmIKNorth Valley Health CenterComselect specialty hospital-[place] on above:Order Comment: TEST CBC AND DIFFERENTIAL WAS CANCELLED, 10/10/2022 15:36 NO SAMPLE RECIEVED/RELEASED IN ERRORPerformed By: #### CBCDF #### [address] [place], [place] [address]EEELIvfixzyjUkdxxeEANorth Valley Health CenterComselect specialty hospital-[place] on above: Order Comment: TEST CBC AND DIFFERENTIAL WAS CANCELLED, 10/10/2022 15:36 NO SAMPLE RECIEVED/RELEASED IN ERRORPerformed By: #### CBCDF #### [address] [place], [place] [address]LCVPgwakvpsWlkwmfELAllina Health Faribault Medical CenterComselect specialty hospital-[place] on above: Order Comment: TEST CBC AND DIFFERENTIAL WAS CANCELLED, 10/10/2022 15:36 NO SAMPLE RECIEVED/RELEASED IN ERRORPerformed By: #### CBCDF #### [address] [place], [place] [address]KBBZEYCLLsyuynloCiceszRRNorth Valley Health CenterComselect specialty hospital-[place] on above:Order Comment: TEST CBC AND DIFFERENTIAL WAS CANCELLED, 10/10/2022 15:36 NO SAMPLE RECIEVED/RELEASED IN ERRORPerformed By: #### CBCDF #### [address] [place], [place] [address]ZVUOOYBVRMFckrhjscHqrfgiMTNorth Valley Health CenterComment on above:Order Comment: TEST CBC AND DIFFERENTIAL WAS CANCELLED, 10/10/2022 15:36 NO SAMPLE RECIEVED/RELEASED IN ERRORPerformed By: #### CBCDF #### [address] [place], [place] [address]IQRXpaytjanJpbwusUDPerham Health HospitalComment on above: Order Comment: TEST CBC AND DIFFERENTIAL WAS CANCELLED, 10/10/2022 15:36 NO SAMPLE RECIEVED/RELEASED IN ERRORPerformed By: #### CBCDF #### [address] [place] [address]XVQJhsivpeoZzwxhqWJPerham Health HospitalComment on above: Order Comment: TEST CBC AND DIFFERENTIAL WAS CANCELLED, 10/10/2022 15:36 NO SAMPLE RECIEVED/RELEASED IN ERRORPerformed By: #### CBCDF #### [address] [place], [place] [address]QZE-XSTxezeaoeTxehrxZWNorth Valley Health CenterComselect specialty hospital-[place] on above:Order Comment: TEST CBC AND DIFFERENTIAL WAS CANCELLED, 10/10/2022 15:36 NO SAMPLE RECIEVED/RELEASED IN ERRORPerformed By: #### CBCDF #### [address] [place], [place] [address]SEPUbgphsouTwbygwIZRice Memorial HospitalComment on above: Order Comment: TEST CBC AND DIFFERENTIAL WAS CANCELLED, 10/10/2022 15:36 NO SAMPLE RECIEVED/RELEASED IN ERRORPerformed By: #### CBCDF #### [address] [place], [place] [address]Nolrje Note - Heme Onc Schedulingon [id number] Note - Heme Onc SchedulingRetrieve Patient Instructions: Patient Instructions: Patient Instructions: RetrievePatient Instructions Instructions Typenutrition Instructions Return to clinic Please call the office with any new or worsening symptoms in the meantime. End of Visit Documentation: Clinic Location/Phone Number: Clinic Location/Phone Number: [facility] [address] [facility] [address] [facility] [address] End Of Visit MU Report Item: Visit Summary given or mailed to patientyes Electronic Signatures: Whit Dugan (SEC) (Signed 10-Oct-2022 14:02) Authored: Retrieve Patient Instructions, End of Visit Documentation Last Updated: 10-Oct-2022 14:02 by Whit Dugan (SEC)[facility] HospitalClinic Note - Heme Onc-Follow Up Visiton [id number] Note - Heme Onc-Follow Up VisitPatient Visit Information: Visit Type: Follow Up Visit [...] referred to Dr. Rodriguez in oncology at [facility] for evaluation. 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 Bone marrow biopsy was done which was negative for involvement with lymphoma . He also underwent an LP with low yield. Because of his meningeal enhancement and location close to [employer], he was treated with hyperCVAD-MA. He received [...] was compared to this patient's previous biopsy ([id number]). The previous biopsy demonstrated areas of necrosis [...] TP53 mutations. The patient was enrolled on [id number], Venetoclax+RICE. Cycle 1 started 10/29/17. Had tumor [...] pneumonitis. The patient was recently readmitted to [facility] (06/16-06/18/18) for fever and PNA. 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 He completed by mouth Levaquin. The patient was admitted to [facility] (08/18-08/21/18) with a new PE. He [...] CAR T Cell infusion 01/04/19 with tisagenlecleucel ([employer]) with preparative regimen of fludarabine and cytoxan. History of Present Illness: ID Statement: KATERINA DANIELLE is a 61 year old Male (more content not included)...[facility] HospitalClinic Note - Intakeon [id number] Note - IntakePatient Visit Information: Visit TypeFollow Up Visit Source [...] 3 Weights & HeightsDate: Weight/Scale Type:Height: 15-Aug-2022 12:03994.7 kg 182.5 cm 21-Feb-2022 13:62343 kg 182.5 cm 21-Nov-2021 11:64672.3 kg / standing ytqax354.5 cm SpO2 (%)94 % SpO2 Patient Onroom [...] assistive deviceno Electronic Signatures: Linda Romero (PAKO PAGAN) (Signed 10-Oct-2022 12:45) Authored: Patient Visit Information, Vital Signs, Allergies, Outpatient Medication Profile, Notification, Travel History, Falls Last Updated: 10-Oct-2022 12:45 by Linda Romero (PAKO PAGAN)[facility] Memorial HospitalCBC AUTO DIFFon [id number] #0.0 103/ulNormal0.0-0.1[facility] System GlenbeighComment on above:Performed By: #### CBC #### [facility] [address] [address] [address] Ladan McdonaldBasophils/100 WBC (Bld)0.3 %Normal0.2-2.0[facility] Comment on above:Performed By: #### CBC #### [facility] [address] [address] [address] Ladan Karimi #0.2 103/ulNormal0.0-0.7The [facility] HospitalComment on above: Performed By: #### CBC #### [facility] [address] [address] [address] Ladan Riveraosinophils/100 WBC (Bld)4.8 %Normal0.9-7.0[facility] Comment on above:Performed By: #### CBC #### [facility] [address] [address] [address] Ladan Riverarythrocyte distribution width (RBC) [Ratio]16.1 %Critically high 11.0-15.0[facility] GlenbeighComment on above:Performed By: #### CBC #### [facility] [address] [address] [address] Ladan McdonaldHematocrit (Bld) [Volume fraction]46.7 %Mpjdyt83.0-54.0[facility] GlenbeighComment on above:Performed By: #### CBC #### [facility] [address] [place] [address] Dr. Ladan McdonaldHemoglobin (Bld) [Mass/Vol]13.6 g/dLCritically low14.0-18.0The [facility] HospitalComment on above:Performed By: #### CBC #### [facility] [address] [place] [address] Dr. Ladan Mott #0.02 10e3/ulNormal0.00-0.03The [facility] HospitalComment on above:Performed By: #### CBC #### [facility] [address] [place] [address] Dr. Ladan Mott %0.5 %Normal0.0-0.5The [facility] HospitalComment on above: Performed By: #### CBC #### [facility] [address] [place] [address] Dr. Ladan Woodson #1.0 103/ulCritically low1.2-3.8The [facility] Comment on above:Performed By: #### CBC #### [facility] [address] [place] [address] Dr. Ladan Beckwithhocytes/100 WBC (Bld)26.1 %Lilibi85.5-60.0The [facility] HospitalComment on above:Performed By: #### CBC #### [facility] [address] [place] [address] Dr. Ladan Beckman DIFF REQNONormalThe [facility] HospitalComment on above: Performed By: #### CBC #### [facility] [address] [place] [address] Dr. Ladan Sher (RBC) [Entitic mass]26.6 alGclfem60.9-34.0The [facility] HospitalComment on above:Performed By: #### CBC #### [facility] [address] [place] [address] Dr. Ladan Sher (RBC) [Mass/Vol]29.1 g/dLCritically low29.9-35.2The [facility] HospitalComment on above:Performed By: #### CBC #### [facility] [address] [place] [address] Dr. Yilan ChangMCV (RBC) [Entitic vol]91.4 oRLtejhi66.0-94.0The [facility] HospitalComment on above:Performed By: #### CBC #### [facility] [address] [place] [address] Dr. Ladan Truong #0.4 103/ulNormal0.3-0.8The [facility] HospitalComment on above:Performed By: #### CBC #### [facility] [address] [place] [address] Dr. Ladan Barronocytes/100 WBC (Bld)8.8 %Normal1.7-12.0The [facility] Comment on above:Performed By: #### CBC #### [facility] [address] [place] [address] Dr. Ladan Almazan #2.4 103/ulNormal1.4-6.5The [facility] HospitalComment on above:Performed By: #### CBC #### [facility] [address] [place] [address] Dr. Ladan Wildeutrophils/100 WBC (Bld)59.5 %Zbjkkf42.0-75.0The [facility] HospitalComment on above:Performed By: #### CBC #### [facility] [address] [place] [address] Dr. Ladan Bushlet mean volume (Bld) [Entitic vol]10.1 fLNormal9.5-13.5The [facility] HospitalComment on above:Performed By: #### CBC #### [facility] [address] [place] [address] Dr. Ladan BetancurT132 103/ulCritically djw420-261Osr [facility] HospitalComment on above:Performed By: #### CBC #### [facility] [address] [place] [address] Dr. Ladan McdonaldRBC5.11 106/ulNormal4.70-6.10The [facility] HospitalComment on above:Performed By: #### CBC #### [facility] [address] [place] [address] Dr. Ladan McdonaldWBC4.0 103/ulNormal4.0-11.0The [facility] HospitalComment on above: Performed By: #### CBC #### [facility] [address] [address] [address] Ladan Henley [id number] U/LCritically cpqr74-706Qrd [facility] HospitalComment on above:Performed By: #### MG, LDH, CMP #### [facility] [address] [address] [address] Ladan McdonaldMAGNESIUMon [id number] [Mass/Vol]2.1 mg/dLNormal1.8-2.4 The [facility] HospitalComment on above:Performed By: #### MG, LDH, CMP #### [facility] [address] [place] [address] Dr. Ladan McdonaldPROF 14(COMP METB)on 34-42-5510Qaldgbi [Mass/Vol]3.5 g/dLNormal 3.4-5.0The [facility] HospitalComment on above:Performed By: #### MG, LDH, CMP #### [facility] [address] [place] [address] Dr. Ladan McdonaldAlbumin/Globulin [Mass ratio]1.0 {ratio}NormalThe [facility] Hospitalment on above:Performed By: #### MG, LDH, CMP #### [facility] [address] [place] [address] Dr. Ladan Peraza [Catalytic activity/Vol]121 U/LCritically mdgk55-655Qzw [facility] HospitalComment on above:Performed By: #### MG, LDH, CMP #### [facility] [address] [place] [address] Dr. Ladan French [Catalytic activity/Vol]51 U/QIatkoh42-95Tbt [facility] HospitalComment on above:Performed By: #### MG, LDH, CMP #### [facility] [address] [place] [address] Dr. Ladan Hernandez gap [Moles/Vol]11.7 mmol/LNormalThe [facility] Comment on above:Performed By: #### MG, LDH, CMP #### [facility] [address] [address] [address] Ladan McdonaldAST [Catalytic activity/Vol]33 U/WOjtxtz86-69Tmg [facility] HospitalComment on above:Performed By: #### MG, LDH, CMP #### [facility] [address] [place] [address] Dr. Ladan McdonaldBilirubin [Mass/Vol]0.4 mg/dLNormal0.2-1.0The [facility] Comment on above:Performed By: #### MG, LDH, CMP #### [facility] [address] [place] [address] Dr. Ladan McdonaldCalcium [Mass/Vol]9.4 mg/dLNormal8.5-10.1[facility] Comment on above:Performed By: #### MG, LDH, CMP #### [facility] [address] [place] [address] Dr. Ladan McdonaldChloride [Moles/Vol]104 mmol/YSefrvt85-769Kwf [facility] Comment on above:Performed By: #### MG, LDH, CMP #### [facility] [address] [place] [address] Dr. Ladan McdonaldCO2 [Moles/Vol]29.0 mmol/GVgytfz02.0-32.0[facility] Comment on above:Performed By: #### MG, LDH, CMP #### [facility] [address] [place] [address] Dr. Ladan McdonaldCreatinine [Mass/Vol]1.61 mg/dLCritically high0.70-1.30The [facility] HospitalComment on above:Performed By: #### MG, LDH, CMP #### [facility] [address] [place] [address] Dr. Ladan RiveraGFR-AF OREAJQHA86 mL/min/1.47q6Raavogpqpz low>=60The [facility] HospitalComment on above:Performed By: #### MG, LDH, CMP #### [facility] [address] [place] [address] Dr. Ladan RiveraGFR-NON AF ZOUGQVTB29 mL/min/1.60h8Nguggnavro low>=60The [facility] HospitalComment on above:Performed By: #### MG, LDH, CMP #### [facility] [address] [address] [address] Ladan McdonaldGlobulin (S) [Mass/Vol]3.6 g/dLNoProtestant HospitalComment on above:Performed By: #### MG, LDH, CMP #### [facility] [address] [address] [address] Ladan McdonaldGlucose [Mass/Vol]107 mg/dLCritically gzlp26-450Vfr [facility] HospitalComment on above:Performed By: #### MG, LDH, CMP #### [facility] [address] [address] [address] Ladan McdonaldPotassium [Moles/Vol]4.7 mmol/LNormal3.5-5.1The [facility] Comment on above:Performed By: #### MG, LDH, CMP #### [facility] [address] [address] [address] Ladan McdonaldProtein [Mass/Vol]7.1 g/dLNormal6.4-8.2The [facility] Comment on above:Performed By: #### MG, LDH, CMP #### [facility] [address] [address] [address] Ladan McdonaldSodium [Moles/Vol]140 mmol/YOgqgju514-113Oul [facility] Comment on above:Performed By: #### MG, LDH, CMP #### [facility] [address] [address] [address] Ladan McdonaldUrea nitrogen [Mass/Vol]27.0 mg/dLCritically high7.0-18.0The [facility] HospitalComment on above:Performed By: #### MG, LDH, CMP #### [facility] [address] [address] [address] aLdan McdonaldUrea nitrogen/Creatinine [Mass ratio]16.8 mg/mgNoProtestant HospitalComment on above:Performed By: #### MG, LDH, CMP #### [facility] [address] [address] [address] Ladan McdonaldPhone Note - Heme Onc-lab requisitionon [id number] Note - Heme Onc-lab requisitionPhone Call Information: Patient Demographics: Name: KATERINA DANIELLE Date: 1960 Address: [address] [place] [address] Date and Time: 27-Sep-2022 08:29 Caller Information: call from Primary Phone Number: [phone] Reason for Call: Reason for Calllab requisition Message: Message: Needs lab order sent to [email or web address] in [place], [place] or [facility] in [place], [place]. Has appointment scheduled for next . Patient called back- fax number to lab at [facility]: [phone] Team Communication: Team Communications: RN printed and this social secretary faxed. Confirmation received 10:21am. Ashley Dugan [...] Updated: 27-Sep-2022 10:26 by Ashley Dugan (UNIT SECT)[facility] HospitalPhone Note - Heme Onc-refill medication...on 09-06-2022 Phone Note - Heme Onc-refill medication...Phone Call Information: Patient Demographics: Name: KATERINA DANIELLE Date: 1960 Address: [address] [place] [address] Date and Time: 06-Sep-2022 10:40 Caller Information: call from Call From: patient Primary Phone Number: [phone] Reason for Call: Reason for Callrefill medication Message: Message: Patient fills Gabapentin with [facility] that is now [facility]. He has 14 pills left. They will not refill for him until 09/22/22 and then say it will be 1-2 weeks before delivery. He will be out of medication by then. Asking if office can rectify Team Communication: Clinician note: contacted patient Disposition: Rx sent by eprescribe Team Communications: Spoke with Yas at [facility] pharmacy. States patient needs a refill for gabapentin sent in and then he will be able to receive the medication within 7 business days or less. Tea Oro 09/06/2022 11:[address] Sears: KATERINA DANIELLE ([id number]): Needs refill of gabapentin 300mg daily please [...] Updated: 06-Sep-2022 11:22 by Tea Oro (N MGR)[facility] HospitalClinic Note - Heme Onc-Follow Up Visiton [id number] Note - Heme Onc-Follow Up VisitPatient Visit Information: Visit Type: Follow Up Visit [...] referred to Dr. Rodriguez in oncology at [facility] for evaluation. 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 Bone marrow biopsy was done which was negative for involvement with lymphoma . He also underwent an LP with low yield. Because of his meningeal enhancement and location close to [employer], he was treated with hyperCVAD-MA. He received [...] was compared to this patient's previous biopsy ([id number]). The previous biopsy demonstrated areas of necrosis [...] TP53 mutations. The patient was enrolled on [id number], Venetoclax+RICE. Cycle 1 started 10/29/17. Had tumor [...] pneumonitis. The patient was recently readmitted to [facility] (06/16-06/18/18) for fever and PNA. 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 He completed by mouth Levaquin. The patient was admitted to [facility] (08/18-08/21/18) with a new PE. He [...] CAR T Cell infusion 01/04/19 with tisagenlecleucel ([facility]/[employer]) with preparative regimen of fludarabine and cytoxan. History of Present Illness: ID Statement: KATERINA DANIELLE is a 61 year old Male (more content not included)...NormalCentraState Healthcare SystemClinic Note - Intakeon 69-14-8513Ewadoz Note - IntakePatient Visit Information: Visit TypeFollow Up Visit Source [...] 3 Weights & HeightsDate: Weight/Scale Type:Height: 21-Feb-2022 13:03836 kg 182.5 cm 21-Nov-2021 11:44489.3 kg / standing .5 cm 23-Aug-2021 13:73305.3 kg / standing honry297.5 cm SpO2 (%)94 % SpO2 Patient Onroom [...] the patient using an assistive deviceno Spiritual/Procedural: Spiritual/cultural/temple practices important for us to knowno Adv Dir: [facility] Declaration of Mental Health Treatmentno Violence: Are you or have you been threatened or abused physically,emotionally or sexually abused by anyoneno Do you feel UNSAFE going back to the place you are livingno Depression: Past 2 wks: Skipwith down, depressed or hopelessno Past 2 wks: Skipwith little interest/pleasure doing thingsno Any Thoughts of [...] hearing,speaking, seeing, moving around or learningno Other Rivera Learnerno Electronic Signatures: Linda Romero (MA II) (Signed 15-Aug-2022 12:44) Authored: Patient Visit Information, Vital Signs, Allergies, Outpatient Medication Profile, Notification, Travel History, Falls, Spiritual/Procedural, Adv Dir, Violence, Depression, Substance, Nutrition/Learning Last Updated: 15-Aug-2022 12:44 by Linda Romero (PAKO II)NormalCentraState Healthcare SystemCBC AUTO DIFFon [id number] #0.0 103/ulNormal0.0-0.1The [facility] HospitalComment on above:Performed By: #### CBC #### [facility] [address] [address] [address] Ladan McdonaldBasophils/100 WBC (Bld)0.5 %Normal0.2-2.0The [facility] Comment on above:Performed By: #### CBC #### [facility] [address] [address] [address] Ladan Karimi #0.2 103/ulNormal0.0-0.7The [facility] HospitalComment on above: Performed By: #### CBC #### [facility] [address] [address] [address] Ladan Riveraosinophils/100 WBC (Bld)4.3 %Normal0.9-7.0The [facility] Comment on above:Performed By: #### CBC #### [facility] [address] [address] [address] Ladan Riverarythrocyte distribution width (RBC) [Ratio]15.7 %Critically high 11.0-15.0The [facility] [place] [facility] HospitalComment on above:Performed By: #### CBC #### [facility] [place] [facility] [address] [place] [address] Dr. Ladan McdonaldHematocrit (Bld) [Volume fraction]44.2 %Ovdhdg63.0-54.0The [facility] [place] [facility] HospitalComment on above:Performed By: #### CBC #### [facility] [place] [facility] [address] [place] [address] Dr. Ladan McdonaldHemoglobin (Bld) [Mass/Vol]14.0 g/lQStwssd85.0-18.0The [facility] [place] [facility] HospitalComment on above:Performed By: #### CBC #### [facility] [place] [facility] [address] [place] [address] Dr. Ladan Mott #0.06 10e3/ulCritically high0.00-0.03The [facility] [place] [facility] Comment on above:Performed By: #### CBC #### [facility] [place] [facility] [address] [place] [address] Dr. Ladan Mott %1.5 %Critically high0.0-0.5The [facility] [place] [facility] HospitalComment on above:Performed By: #### CBC #### [facility] [place] [facility] [address] [place] [address] Dr. Ladan Woodson #1.4 103/ulNormal1.2-3.8The [facility] [place] [facility] HospitalComment on above:Performed By: #### CBC #### [facility] [place] [facility] [address] [place] [address] Dr. Ladan Beckwithhocytes/100 WBC (Bld)35.2 %Wlljhb15.5-60.0The [facility] [place] [facility] HospitalComment on above:Performed By: #### CBC #### [facility] [place] [facility] [address] [place] [address] Dr. Ladan Beckman DIFF REQNONormalThe [facility] [place] [facility] HospitalComment on above: Performed By: #### CBC #### [facility] [place] [facility] [address] [place] [address] Dr. Ladan Villarreal (RBC) [Entitic mass]26.4 qkNggnfh23.9-34.0The [facility] [place] [facility] HospitalComment on above:Performed By: #### CBC #### [facility] [place] [facility] [address] [place] [address] Dr. Ladan Sher (RBC) [Mass/Vol]31.7 g/iTKmufjp06.9-35.2The [facility] [place] [facility] HospitalComment on above:Performed By: #### CBC #### [facility] [place] [facility] [address] [place] [address] Dr. Ladan Bateman (RBC) [Entitic vol]83.2 nAPlotgk79.0-94.0The [facility] [place] [facility] HospitalComment on above:Performed By: #### CBC #### [facility] [place] [facility] [address] [place] [address] Dr. Ladan Truong #0.3 103/ulNormal0.3-0.8The [facility] [place] [facility] HospitalComment on above:Performed By: #### CBC #### [facility] [place] [facility] [address] [place] [address] Dr. Ladan Barronocytes/100 WBC (Bld)6.4 %Normal1.7-12.0The [facility] [place] [facility] Comment on above:Performed By: #### CBC #### [facility] [place] [facility] [address] [place] [address] Dr. Ladan Almazan #2.0 103/ulNormal1.4-6.5The [facility] [place] [facility] HospitalComment on above:Performed By: #### CBC #### [facility] [place] [facility] [address] [place] [address] Dr. Ladan Wildeutrophils/100 WBC (Bld)52.1 %Zowqtp67.0-75.0The [facility] [place] [facility] HospitalComment on above:Performed By: #### CBC #### [facility] [place] [facility] [address] [place] [address] Dr. Ladan Bushlet mean volume (Bld) [Entitic vol]9.4 fLCritically low 9.5-13.5The [facility] [place] [facility] HospitalComment on above:Performed By: #### CBC #### [facility] [place] [facility] [address] [place] [address] Dr. Ladan BetancurT137 103/ulCritically fla792-749Vrw [facility] [place] [facility] HospitalComment on above:Performed By: #### CBC #### [facility] [place] [facility] [address] [place] [address] Dr. Ladan McdonaldRBC5.31 106/ulNormal4.70-6.10The [facility] [place] [facility] HospitalComment on above:Performed By: #### CBC #### [facility] [place] [facility] [address] [place] [address] Dr. Ladan McdonaldWBC3.9 103/ulCritically low4.0-11.0The [facility] Hospitalment on above:Performed By: #### CBC #### [facility] [place] [facility] [address] [place] [address] Dr. Ladan Henley 74-22-2906CZW624 U/NGldfqr70-198Rna [facility] [place] [facility] Comment on above:Performed By: #### MG, LDH, CMP #### [facility] [place] [facility] [address] [place] [address] Dr. Ladan MichelGNESIUMon 68-66-7958Rhmidvfwq [Mass/Vol]2.1 mg/dLNormal1.8-2.4 The [facility] [place] [facility] HospitalComment on above:Performed By: #### MG, LDH, CMP #### [facility] [place] [facility] [address] [place] [address] Dr. Ladan McdonaldPROJordan 14(COMP METB)on 80-22-0714Vanpsso [Mass/Vol]3.5 g/dLNormal 3.4-5.0The [facility] [place] [facility] HospitalComment on above:Performed By: #### MG, LDH, CMP #### [facility] [place] [facility] [address] [place] [address] Dr. Ladan McdonaldAlbumin/Globulin [Mass ratio]0.9 {ratio}NormalThe [facility] Hospitalment on above:Performed By: #### MG, LDH, CMP #### [facility] [place] [facility] [address] [place] [address] Dr. Ladan Peraza [Catalytic activity/Vol]118 U/LCritically nqvx69-752Iuy [facility] [place] [facility] HospitalComment on above:Performed By: #### MG, LDH, CMP #### [facility] [place] [facility] [address] [place] [address] Dr. Ladan French [Catalytic activity/Vol]46 U/DYvziju20-30Xob [facility] [place] [facility] HospitalComment on above:Performed By: #### MG, LDH, CMP #### [facility] [place] [facility] [address] [address] [address] Ladan Hernandez gap [Moles/Vol]8.7 mmol/LNormalThe [facility] [place] [facility] HospitalComment on above:Performed By: #### MG, LDH, CMP #### [facility] [place] [facility] [address] [address] [address] Ladan McdonaldAST [Catalytic activity/Vol]30 U/XLnlywh16-55Gjp [facility] [place] [facility] HospitalComment on above:Performed By: #### MG, LDH, CMP #### [facility] [place] [facility] [address] [address] [address] Ladan McdonaldBilirubin [Mass/Vol]0.4 mg/dLNormal0.2-1.0The [facility] [place] [facility] Comment on above:Performed By: #### MG, LDH, CMP #### [facility] [place] [facility] [address] [place] [address] Dr. Ladan McdonaldCalcium [Mass/Vol]9.1 mg/dLNormal8.5-10.1[facility] Comment on above:Performed By: #### MG, LDH, CMP #### [facility] [place] [facility] [address] [place] [address] Dr. Ladan McdonaldChloride [Moles/Vol]106 mmol/EMmjqza82-693Bzz [facility] [place] [facility] Comment on above:Performed By: #### MG, LDH, CMP #### [facility] [place] [facility] [address] [address] [address] Ladan McdonaldCO2 [Moles/Vol]31.9 mmol/QYmcmjb24.0-32.0The [facility] [place] [facility] Comment on above:Performed By: #### MG, LDH, CMP #### [facility] [place] [facility] [address] [address] [address] Ladan McdonaldCreatinine [Mass/Vol]1.68 mg/dLCritically high0.70-1.30The [facility] [place] [facility] HospitalComment on above:Performed By: #### MG, LDH, CMP #### [facility] [place] [facility] [address] [place] [address] Dr. Yilan ChangEGFR-AF ARJFPZVU92 mL/min/1.01r2Iapymqduod low>=60The [facility] [place] [facility] HospitalComment on above:Performed By: #### MG, LDH, CMP #### [facility] [place] [facility] [address] [place] [address] Dr. Pickering ChangEGFR-NON AF JKPPGVXQ06 mL/min/1.19j1Gpuqhmdkal low>=60The [facility] [place] [facility] HospitalComment on above:Performed By: #### MG, LDH, CMP #### [facility] [place] [facility] [address] [place] [address] Dr. Ladan McdonaldGlobulin (S) [Mass/Vol]3.7 g/dLNormalThe [facility] [place] [facility] HospitalComment on above:Performed By: #### MG, LDH, CMP #### [facility] [place] [facility] [address] [place] [address] Dr. Ladan McdonaldGlucose [Mass/Vol]110 mg/dLCritically dhfb55-734Vla [facility] [place] [facility] HospitalComment on above:Performed By: #### MG, LDH, CMP #### [facility] [place] [facility] [address] [place] [address] Dr. Ladan McdonaldPotassium [Moles/Vol]4.6 mmol/LNormal3.5-5.1[facility] Comment on above:Performed By: #### MG, LDH, CMP #### [facility] [place] [facility] [address] [place] [address] Dr. Ladan McdonaldProtein [Mass/Vol]7.2 g/dLNormal6.4-8.2[facility] Comment on above:Performed By: #### MG, LDH, CMP #### [facility] [place] [facility] [address] [place] [address] Dr. Ladan McdonaldSodium [Moles/Vol]142 mmol/SQfdyxh800-109GmhAcmc Healthcare System [facility] Comment on above:Performed By: #### MG, LDH, CMP #### [facility] [place] [facility] [address] [place] [address] Dr. Ladan McdonaldUrea nitrogen [Mass/Vol]24.0 mg/dLCritically high7.0-18.0The [facility] [place] [facility] HospitalComment on above:Performed By: #### MG, LDH, CMP #### [facility] [place] [facility] [address] [address] [address] Ladan McdonaldUrea nitrogen/Creatinine [Mass ratio]14.3 mg/mgNoProtestant HospitalComment on above:Performed By: #### MG, LDH, CMP #### [facility] [place] [facility] [address] [address] [address] Ladan McdonaldPhone Note - Heme Onc-lab requisition - Mailing lab reqon [id number] Note - Heme Onc-lab requisition - Mailing lab reqPhone Call Information: Patient Demographics: Name: KATERINA DANIELLE Date: 1960 Address: [address] [place] [address] Date and Time: 06-Aug-2022 10:58 Caller Information: call from Primary Phone Number: [phone] Reason for Call: Reason for Calllab requisition, [...] 21-Feb-2022 14:00 N/A Electronic Signatures: Zofia Smith (KELVER) (Signed 06-Aug-2022 11:16) Authored: Phone Call Information Ashley Dugan (UNIT SECT) (Signed 06-Aug-2022 11:00) Authored: Phone Call Information, Outpatient Medication Profile, Orders, Allergies, Results Last Updated: 06-Aug-2022 11:16 by Zofia Smith)[facility] Von [id number] CHEST 2 VEXAMINATION: XR CHEST 2 V HISTORY: Cough ; chronic cough, [...] Electronically authenticated by: JS LÓPEZ Date: 2022-07-18 15:06[facility] - Establ[facility])on 07-16-2022 Follow-up visitDiagnoses/Problems CKD (chronic kidney disease), stage III (585.3) (N18.30) Benign essential HTN (401.1) (I10) Hyperparathyroidism, secondary (588.81) (N25.81) Orders Benign essential HTN, CKD (chronic kidney disease), stage III, Hyperparathyroidism, secondary Basic Metabolic Panel; Status:Active; Requested for:71Dbr3024; Parathormone Intact, Serum; Status:Active; Requested for:35Ftx8235; Phosphorus, Serum; Status:Active; Requested for:28Ges0560; Provider Impressions 1- CKD III: His Cr [...] hemoptysis. No hematuria. No rectal bleeding. No m wilmer. No epistaxis. The patient denies any urinary [...] CAPSULES OVER THE WEEKENDS (more content not included)...NormalUH TouchworksCOVID-19 SOFIAOrdered By: Victor Hugoeliezer Farrell on [id number]-CoV+SARS-CoV-2 (COVID-19) Ag IA.rapid Ql (Resp)NegativeNegative [facility] HospitalComment on above:This is a duplicate Mariella SARS Antigen (JOE) result to be used for statistical tracking purpose only.No Panel InformationOrdered By: Victor Hugo Farrell on [id number] Antigen (LFIA)[facility] HospitalECHOCARDIO M/2D COMPLETEon [id number] M/2D COMPLETEPatient: ALONDRAKATERINA Gutierrez Exam Date: 04/01/2022 : 1960 Gender:M Ordering : DR NAEL FARIAS . Admission #: [id number] Family : Order #: [id number] CLICK HERE TO VIEW EXAM ECHOCARDIOGRAM REPORT [...] by: Spencer Perkins M.D. on 04/02/2022 at 18:37[facility]in HospitalLACTATE DEHYDROGENASE (LD) ISOENZYMESon [id number] FRACTION 116 % Critically chx13-02AjqUK [facility] on above:Result Comment: Performed at: BNPerformed By: #### LDISO #### [facility] [address] [address] [address] Ladan Graf FRACTION 233 %Tjwqtx57-79Eds [facility] on above:Result Comment: Performed at: BNPerformed By: #### LDISO #### [facility] [address] [address] [address] Ladan Graf FRACTION 323 %Nunckf61-72Ezp [facility] on above:Result Comment: Performed at: BNPerformed By: #### LDISO #### [facility] [address] [address] [address] Ladan Graf FRACTION 413 %Normal5-13[facility] on above: Result Comment: Performed at: BNPerformed By: #### LDISO #### [facility] [address] [address] [address] Ladan Graf FRACTION 515 %Normal4-20The [facility] [place] [facility] HospitalCom[facility] on above: Result Comment: Performed at: BNPerformed By: #### LDISO #### [facility] [address] [address] [address] Ladan McdonaldLDH245 IU/LCritically sbac258-461DjbAcmc Healthcare System GlenbeighComment on above:Result Comment: Performed at: CBPerformed By: #### LDISO #### [facility] [place] [facility] [address] [place], [place] [address] Dr. Ladan McdonaldCBC AND DIFFERENTIALon 02-21-2022% AUTOMATED IMMATURE GRAN CanceledNormalSt. [facility] HospitalCom[facility] on above:Order Comment: TEST CBC AND DIFFERENTIAL WAS CANCELLED, 02/21/2022 14:13 Cancelled per Zofia.Result Comment: Immature Granulocyte Count (IG) includes promyelocytes, myelocytes and metamyelocytes but does not include bands. Percent differential counts (%) should be interpreted in the context of the absolute cell counts (cells/L).Performed By: #### CBCDF #### [address] [place] [address]% BASOPHILCanceledNormalSt. [facility] HospitalComselect [facility] on above:Order Comment: TEST CBC AND DIFFERENTIAL WAS CANCELLED, 02/21/2022 14:13 Cancelled per Zofia.Performed By: #### CBCDF #### [address] [place] [address]% EOSINOPHILCanceledNormalSt. [facility] HospitalCom[facility] on above:Order Comment: TEST CBC AND DIFFERENTIAL WAS CANCELLED, 02/21/2022 14:13 Cancelled per Zofia.Performed By: #### CBCDF #### [address] [place] [address]% LYMPHOCYTECanceledNormalSt. [facility] HospitalCom[facility] on above:Order Comment: TEST CBC AND DIFFERENTIAL WAS CANCELLED, 02/21/2022 14:13 Cancelled per Zofia.Performed By: #### CBCDF #### [address] [place] [address]% MONOCYTECanceledNormalSt. [facility] HospitalCom[facility] on above:Order Comment: TEST CBC AND DIFFERENTIAL WAS CANCELLED, 02/21/2022 14:13 Cancelled per Zofia.Performed By: #### CBCDF #### [address] [place] [address]% NEUTROPHILCanceledNormalSt. [facility] HospitalCom[facility] on above:Order Comment: TEST CBC AND DIFFERENTIAL WAS CANCELLED, 02/21/2022 14:13 Cancelled per Zofia.Performed By: #### CBCDF #### [address] [place], [place] [address]YABVROWFIgbzahmwZkeznlDy. [facility]Com[facility] on above: Order Comment: TEST CBC AND DIFFERENTIAL WAS CANCELLED, 02/21/2022 14:13 Cancelled per Zofia.Performed By: #### CBCDF #### [address] [place], [place] [address]NQZIGNOVOWWIYmciidamKbzkcyAm. [facility]Com[facility] on above:Order Comment: TEST CBC AND DIFFERENTIAL WAS CANCELLED, 02/21/2022 14:13 Cancelled per Zofia.Performed By: #### CBCDF #### [address] [place], [place] [address]VDDBNSTYFTWieflvuuWpmjhiPm. [facility]Com[facility] on above:Order Comment: TEST CBC AND DIFFERENTIAL WAS CANCELLED, 02/21/2022 14:13 Cancelled per Zofia.Performed By: #### CBCDF #### [address] [place], [place] [address]NQZDlzrnpwhTzekcsKh. [facility]Com[facility] on above:Order Comment: TEST CBC AND DIFFERENTIAL WAS CANCELLED, 02/21/2022 14:13 Cancelled per Zofia.Performed By: #### CBCDF #### [address] [place], [place] [address]FJKSzssfdvzXhnospIy. [facility]Com[facility] on above:Order Comment: TEST CBC AND DIFFERENTIAL WAS CANCELLED, 02/21/2022 14:13 Cancelled per Zofia.Performed By: #### CBCDF #### [address] [place], [place] [address]OVYIKWVZRZTjwbruqpImarwbHm. [facility]Com[facility] on above:Order Comment: TEST CBC AND DIFFERENTIAL WAS CANCELLED, 02/21/2022 14:13 Cancelled per Zofia.Performed By: #### CBCDF #### [address] [place], [place] [address]WTWTXyansvriGpeneuLd. [facility]Com[facility] on above: Order Comment: TEST CBC AND DIFFERENTIAL WAS CANCELLED, 02/21/2022 14:13 Cancelled per Zofia.Performed By: #### CBCDF #### [address] [place], [place] [address]AOSFegtwhetUeszphYa. [facility]Com[facility] on above:Order Comment: TEST CBC AND DIFFERENTIAL WAS CANCELLED, 02/21/2022 14:13 Cancelled per Zofia.Performed By: #### CBCDF #### [address] [place], [place] [address]QXOCQKRFHylkuwiiDlwppuAw. [facility]Com[facility] on above: Order Comment: TEST CBC AND DIFFERENTIAL WAS CANCELLED, 02/21/2022 14:13 Cancelled per Zofia.Performed By: #### CBCDF #### [address] [place], [place] [address]RXIOBGNUNKVyibpqeyAebccsPd. [facility]Com[facility] on above:Order Comment: TEST CBC AND DIFFERENTIAL WAS CANCELLED, 02/21/2022 14:13 Cancelled per Zofia.Performed By: #### CBCDF #### [address] [place], [place] [address]UXUHoslxplaQvporoTd. [facility]Com[facility] on above:Order Comment: TEST CBC AND DIFFERENTIAL WAS CANCELLED, 02/21/2022 14:13 Cancelled per Zofia.Performed By: #### CBCDF #### [address] [place], [place] [address]PBTHbnrpupuSomemlTz. [facility]Com[facility] on above:Order Comment: TEST CBC AND DIFFERENTIAL WAS CANCELLED, 02/21/2022 14:13 Cancelled per Zofia.Performed By: #### CBCDF #### [address] [place], [place] [address]PEY-VQCfaplbedWfywtyEf. [facility] HospitalComment on above: Order Comment: TEST CBC AND DIFFERENTIAL WAS CANCELLED, 02/21/2022 14:13 Cancelled per Zofia.Performed By: #### CBCDF #### [address] [place], [place] [address]QDVYjkejufcHewusaMi. [facility] HospitalComment on above:Order Comment: TEST CBC AND DIFFERENTIAL WAS CANCELLED, 02/21/2022 14:13 Cancelled per Zofia.Performed By: #### CBCDF #### [address] [place], [place] [address]REHGLTLBQQUKC PANELon 62-86-7896ANHLCHONpzjddcyRallrfKb. [facility]Com[facility] on above:Order Comment: TEST COMPREHENSIVE PANEL WAS CANCELLED, 02/21/2022 14:13 Cancelled per Zofia.Performed By: #### CMP #### [address] [place], [place] [address]RIGJEKOE PHOSPHATASECanceledNormalSt. [facility] Comment on above:Order Comment: TEST COMPREHENSIVE PANEL WAS CANCELLED, 02/21/2022 14:13 Cancelled per Zofia.Performed By: #### CMP #### [address] [place], [place] [address]OTAIslqnplfKlzbgySy. [facility] HospitalComment on above:Order Comment: TEST COMPREHENSIVE PANEL WAS CANCELLED, 02/21/2022 14:13 Cancelled per Zofia.Result Comment: Patients treated with Sulfasalazine may generate falsely decreased results for ALT.Performed By: #### CMP #### [address] [place], [place] [address]CJGIU GAPCanceledNormalSt. [facility] HospitalCom[facility] on above:Order Comment: TEST COMPREHENSIVE PANEL WAS CANCELLED, 02/21/2022 14:13 Cancelled per Zofia.Performed By: #### CMP #### [address] [place], [place] [address]DIHSisfanknNzzkysIp. [facility]Com[facility] on above:Order Comment: TEST COMPREHENSIVE PANEL WAS CANCELLED, 02/21/2022 14:13 Cancelled per Zofia.Performed By: #### CMP #### [address] [place], [place] [address]FBYYVWYYKENRqflitqmZycaaiBp. [facility]Com[facility] on above:Order Comment: TEST COMPREHENSIVE PANEL WAS CANCELLED, 02/21/2022 14:13 Cancelled per Zofia.Performed By: #### CMP #### [address] [place], [place] [address]ALNUQUDAE,TOTALCanceledNormalSt. [facility] HospitalCom[facility] on above:Order Comment: TEST COMPREHENSIVE PANEL WAS CANCELLED, 02/21/2022 14:13 Cancelled per Zofia.Performed By: #### CMP #### [address] [place], [place] [address]NAHHLUAGbmudwftEyvxjaPe. [facility]Com[facility] on above: Order Comment: TEST COMPREHENSIVE PANEL WAS CANCELLED, 02/21/2022 14:13 Cancelled per Zofia.Performed By: #### CMP #### [address] [place], [place] [address]UESRKJESLdgvnaiyLowxwzXe. [facility]Com[facility] on above: Order Comment: TEST COMPREHENSIVE PANEL WAS CANCELLED, 02/21/2022 14:13 Cancelled per Zofia.Performed By: #### CMP #### [address] [place], [place] [address]WNPBJOHSGNLhjqvcgvYewpnrPj. [facility] on above:Order Comment: TEST COMPREHENSIVE PANEL WAS CANCELLED, 02/21/2022 14:13 Cancelled per Zofia.Performed By: #### CMP #### [address] [place], [place] [address]dWBL FEMALECanceledNormalSt. [facility] on above:Order Comment: TEST COMPREHENSIVE PANEL WAS CANCELLED, 02/21/2022 14:13 Cancelled per Zofia.Result Comment: CALCULATIONS OF ESTIMATED GFR ARE PERFORMED USING THE 2020 CKD-EPI STUDY REFIT EQUATION WITHOUT THE RACE VARIABLE FOR THE IDMS-TRACEABLE CREATININE METHODS. https://jasn.asnjournals.org/content/early/ASN.2390832917Gdhuslkqr By: #### CMP #### [address] [place], [place] [address]oRSX MALECanceledNormalSt. [facility] HospitalComment on above:Order Comment: TEST COMPREHENSIVE PANEL WAS CANCELLED, 02/21/2022 14:13 Cancelled per Zofia.Result Comment: CALCULATIONS OF ESTIMATED GFR ARE PERFORMED USING THE 2020 CKD-EPI STUDY REFIT EQUATION WITHOUT THE RACE VARIABLE FOR THE IDMS-TRACEABLE CREATININE METHODS. https://jasn.asnjournals.org/content/earlyASN.5228642810Tgwvfdrfv By: #### CMP #### [address] [place], [place] [address]GYEEMGBRnsffcirLelovzTw. [facility] HospitalComment on above: Order Comment: TEST COMPREHENSIVE PANEL WAS CANCELLED, 02/21/2022 14:13 Cancelled per Zofia.Performed By: #### CMP #### [address] [place], [place] [address]QVRYSIQBJPoxphvdbCnwhdwHn. [facility] HospitalComment on above:Order Comment: TEST COMPREHENSIVE PANEL WAS CANCELLED, 02/21/2022 14:13 Cancelled per Zofia.Performed By: #### CMP #### [address] [place], [place] [address]RQBJJSHsckjogbXyesrxHg. [facility]Com[facility] on above: Order Comment: TEST COMPREHENSIVE PANEL WAS CANCELLED, 02/21/2022 14:13 Cancelled per Zofia.Performed By: #### CMP #### [address] [place], [place] [address]KQBBX PROTEINCanceledNormalSt. [facility] HospitalCom[facility] on above:Order Comment: TEST COMPREHENSIVE PANEL WAS CANCELLED, 02/21/2022 14:13 Cancelled per Zofia.Performed By: #### CMP #### [address] [place], [place] [address]QCEV NITROGENCanceledNormRUST. [facility] HospitalComment on above:Order Comment: TEST COMPREHENSIVE PANEL WAS CANCELLED, 02/21/2022 14:13 Cancelled per Zofia.Performed By: #### CMP #### [address] [place], [place] [address]RJKnl 58-04-5663WSCOjcszmcyWautluJt. [facility] Comment on above:Order Comment: TEST LDH WAS CANCELLED, 02/21/2022 14:13 Cancelled per Zofia.Performed By: #### LDH #### [facility] [address] [address] [place], [place] [address]QBC AUTO DIFFon [id number] #0.0 103/ulNormal0.0-0.1[facility] GlenbeighComment on above:Performed By: #### CBC #### [facility] [place] [facility] [address] [place] [address] Dr. Ladan McdonaldBasophils/100 WBC (Bld)0.6 %Normal0.2-2.0[facility] Comment on above:Performed By: #### CBC #### [facility] [place] [facility] [address] [place] [address] Dr. Ladan Karimi #0.1 103/ulNormal0.0-0.7The [facility] [place] [facility] HospitalComment on above: Performed By: #### CBC #### [facility] [address] [place] [address] Dr. Ladan Riveraosinophils/100 WBC (Bld)2.0 %Normal0.9-7.0[facility] [place] [facility] Comment on above:Performed By: #### CBC #### [facility] [address] [place] [address] Dr. Ladan Riverarythrocyte distribution width (RBC) [Ratio]15.4 %Critically high 11.0-15.0[facility] System GlenbeighComment on above:Performed By: #### CBC #### [facility] [address] [place] [address] Dr. Ladan McdonaldHematocrit (Bld) [Volume fraction]44.7 %Xpqama33.0-54.0The [facility] HospitalComment on above:Performed By: #### CBC #### [facility] [address] [place] [address] Dr. Ladan McdonaldHemoglobin (Bld) [Mass/Vol]14.3 g/mTBqfimz72.0-18.0The [facility] HospitalComment on above:Performed By: #### CBC #### [facility] [address] [place] [address] Dr. Ladan Mott #0.02 10e3/ulNormal0.00-0.03The [facility] HospitalComment on above:Performed By: #### CBC #### [facility] [address] [place] [address] Dr. Ladan Mott %0.6 %Critically high0.0-0.5The [facility] HospitalComment on above:Performed By: #### CBC #### [facility] [address] [place] [address] Dr. Ladan Woodson #0.9 103/ulCritically low1.2-3.8The [facility] Comment on above:Performed By: #### CBC #### [facility] [address] [place] [address] Dr. Ladan Tavarezmphocytes/100 WBC (Bld)26.6 %Ttahoq83.5-60.0The [facility] HospitalComment on above:Performed By: #### CBC #### [facility] [address] [place] [address] Dr. Ladan MarcusUAL DIFF REQNONormalThe [facility] HospitalComment on above: Performed By: #### CBC #### [facility] [address] [place] [address] Dr. Ladan Sher (RBC) [Entitic mass]26.2 pmJtdmsg39.9-34.0The [facility] HospitalComment on above:Performed By: #### CBC #### [facility] [address] [place] [address] Dr. Ladan SherHC (RBC) [Mass/Vol]32.0 g/rNIbmohy17.9-35.2The [facility] HospitalComment on above:Performed By: #### CBC #### [facility] [address] [place] [address] Dr. Ladan SherV (RBC) [Entitic vol]82.0 qVBqcfkb77.0-94.0The [facility] HospitalComment on above:Performed By: #### CBC #### [facility] [address] [place] [address] Dr. Ladan Truong #0.3 103/ulNormal0.3-0.8The [facility] HospitalComment on above:Performed By: #### CBC #### [facility] [address] [place] [address] Dr. Ladan Barronocytes/100 WBC (Bld)8.9 %Normal1.7-12.0The [facility] Comment on above:Performed By: #### CBC #### [facility] [address] [place] [address] Dr. Ladan Almazan #2.2 103/ulNormal1.4-6.5The [facility] HospitalComment on above:Performed By: #### CBC #### [facility] [address] [place] [address] Dr. Ladan Wildeutrophils/100 WBC (Bld)61.3 %Haicxb52.0-75.0The [facility] HospitalComment on above:Performed By: #### CBC #### [facility] [address] [place] [address] Dr. Ladan Bushlet mean volume (Bld) [Entitic vol]9.7 fLNormal9.5-13.5The [facility] HospitalComment on above:Performed By: #### CBC #### [facility] [address] [place] [address] Dr. Ladan BetancurT115 103/ulCritically dko002-265Pyk [facility] HospitalComment on above:Performed By: #### CBC #### [facility] [address] [address] [address] Ladan McdonaldRBC5.45 106/ulNormal4.70-6.10The [facility] HospitalComment on above:Performed By: #### CBC #### [facility] [address] [place] [address] Dr. Ladan McdonaldWBC3.5 103/ulCritically low4.0-11.0The [facility] HospitalComment on above:Performed By: #### CBC #### [facility] [address] [place] [address] Dr. Ladan StallingsF 14(COMP METB)on 41-61-2564Wqsbofc [Mass/Vol]3.7 g/dLNormal 3.4-5.0The [facility] Hospitalment on above:Performed By: #### MG, LDH, CMP #### [facility] [address] [place] [address] Dr. Ladan McdonaldAlbumin/Globulin [Mass ratio]1.1 {ratio}NormalThe [facility] HospitalComment on above:Performed By: #### MG, LDH, CMP #### [facility] [address] [place] [address] Dr. Ladan Peraza [Catalytic activity/Vol]121 U/LCritically khjl82-938Ody [facility] HospitalComment on above:Performed By: #### MG, LDH, CMP #### [facility] [address] [place] [address] Dr. Ladan French [Catalytic activity/Vol]55 U/ERrlgdk20-23Lip [facility] Hospitalment on above:Performed By: #### MG, LDH, CMP #### [facility] [address] [place] [address] Dr. Ladan Hernandez gap [Moles/Vol]11.7 mmol/LNormalThe [facility] on above:Performed By: #### MG, LDH, CMP #### [facility] [address] [place] [address] Dr. Ladan Wilson [Catalytic activity/Vol]40 U/LCritically egqi67-73Gle [facility] HospitalComment on above:Performed By: #### MG, LDH, CMP #### [facility] [address] [place] [address] Dr. Ladan McdonaldBilirubin [Mass/Vol]0.5 mg/dLNormal0.2-1.0[facility] Comment on above:Performed By: #### MG, LDH, CMP #### [facility] [address] [place] [address] Dr. Ladan McdonaldCalcium [Mass/Vol]9.2 mg/dLNormal8.5-10.1The [facility] Comment on above:Performed By: #### MG, LDH, CMP #### [facility] [address] [place] [address] Dr. Ladan McdonaldChloride [Moles/Vol]107 mmol/ZRuirxt72-456Wpn [facility] Comment on above:Performed By: #### MG, LDH, CMP #### [facility] [address] [place] [address] Dr. Ladan McdonaldCO2 [Moles/Vol]28.3 mmol/EIlfpkx40.0-32.0The [facility] Comment on above:Performed By: #### MG, LDH, CMP #### [facility] [address] [place] [address] Dr. Ladan Grayatinine [Mass/Vol]1.97 mg/dLCritically high0.70-1.30The [facility] HospitalComment on above:Performed By: #### MG, LDH, CMP #### [facility] [address] [place] [address] Dr. Ladan RiveraGFR-AF OIQUNMYU96 mL/min/1.35l2Eunypejsnc low>=60The [facility] HospitalComment on above:Performed By: #### MG, LDH, CMP #### [facility] [address] [place] [address] Dr. Ladan RiveraGFR-NON AF OVWGMHMH46 mL/min/1.95g7Itozcznebj low>=60The [facility] HospitalComment on above:Performed By: #### MG, LDH, CMP #### [facility] [address] [place] [address] Dr. Yilan ChangGlobulin (S) [Mass/Vol]3.5 g/dLNoProtestant HospitalComment on above:Performed By: #### MG, LDH, CMP #### [facility] [address] [address] [address] Ladan McdonaldGlucose [Mass/Vol]114 mg/dLCritically ufvy17-014Zmz [facility] HospitalComment on above:Performed By: #### MG, LDH, CMP #### [facility] [address] [place] [address] Dr. Ladan McdonaldPotassium [Moles/Vol]4.0 mmol/LNormal3.5-5.1The [facility] Comment on above:Performed By: #### MG, LDH, CMP #### [facility] [address] [place] [address] Dr. Ladan McdonaldProtein [Mass/Vol]7.2 g/dLNormal6.4-8.2The [facility] Comment on above:Performed By: #### MG, LDH, CMP #### [facility] [address] [place] [address] Dr. Ladan McdonaldSodium [Moles/Vol]143 mmol/LSyicam630-231Vdt [facility] Comment on above:Performed By: #### MG, LDH, CMP #### [facility] [address] [place] [address] Dr. Ladan McdonaldUrea nitrogen [Mass/Vol]26.0 mg/dLCritically high7.0-18.0The [facility] HospitalComment on above:Performed By: #### MG, LDH, CMP #### [facility] [address] [place] [address] Dr. Ladan McdonaldUrea nitrogen/Creatinine [Mass ratio]13.2 mg/mgNoProtestant HospitalComment on above:Performed By: #### MG, LDH, CMP #### [facility] [address] [place] [address] Dr. Ladan De La FuenteC AND DIFFERENTIALon 11-14-2021% AUTOMATED IMMATURE GRAN1.2 % High0.0 - 0.9St. [facility] HospitalComment on above:Result Comment: Immature Granulocyte Count (IG) includes promyelocytes, myelocytes and metamyelocytes but does not include bands. Percent differential counts (%) should be interpreted in the context of the absolute cell counts (cells/L).Performed By: #### CBCDF #### [address] [address]Qziloshsa (Bld) [#/Vol]0.01 10*3/uLNormal0.00 - 0.10St. [facility] HospitalComment on above:Performed By: #### CBCDF #### [address] [address]Kvxbyldth/100 WBC (Bld)0.2 %Normal0.0 - 2.0St. [facility] HospitalComment on above:Performed By: #### CBCDF #### [address] [address]Dhvwmfikkna (Bld) [#/Vol]0.04 10*3/uLNormal0.00 - 0.70St. [facility] HospitalComment on above:Performed By: #### CBCDF #### [address] [address]Wxmzjqaraqe/100 WBC (Bld)1.0 %Normal0.0 - 6.0St. [facility] HospitalComment on above:Performed By: #### CBCDF #### [address] [address]Iubblwudske distribution width (RBC) [Ratio]15.0 %High11.5 - 14.5St. [facility] HospitalComment on above:Performed By: #### CBCDF #### [address] [address]Fopnngvjjy (Bld) [Volume fraction]48.2 %Gamxpv36.0 - 52.0St. [facility] HospitalComselect [facility] on above:Performed By: #### CBCDF #### [address] [address]Dxfybiftch (Bld) [Mass/Vol]14.9 g/mTDmiyjs31.5 - 17.5St. [facility] HospitalComment on above:Performed By: #### CBCDF #### [address] [address]Yfavxwnmeub (Bld) [#/Vol]1.26 10*3/uLNormal1.20 - 4.80St. [facility] HospitalComment on above:Performed By: #### CBCDF #### [address] [address]Mnpgjjsrnmw/100 WBC (Bld)30.2 %Fuxchs73.0 - 44.0St. [facility] HospitalComment on above:Performed By: #### CBCDF #### [address] [address]LKNP (RBC) [Mass/Vol]30.9 g/dLLow32.0 - 36.0St. [facility] HospitalComment on above:Performed By: #### CBCDF #### [address] [address]UMY (RBC) [Entitic vol]84 kMKwdmnl97 - 100St. [facility] HospitalComment on above:Performed By: #### CBCDF #### [address] [address]Wogrwbcjm (Bld) [#/Vol]0.36 10*3/uLNormal0.10 - 1.00St. [facility] HospitalComment on above:Performed By: #### CBCDF #### [address] [address]Yffbynynm/100 WBC (Bld)8.6 %Normal2.0 - 10.0St. [facility] HospitalComment on above:Performed By: #### CBCDF #### [address] [address]Dadmehipcml (Bld) [#/Vol]2.45 10*3/uLNormal1.20 - 7.70St. [facility] HospitalComment on above:Performed By: #### CBCDF #### [address] [address]Twahtfngwam/100 WBC (Bld)58.8 %Phgeev86.0 - 80.0St. [facility] HospitalComment on above:Performed By: #### CBCDF #### [address] [address]PACGIRORN RBC0.0 /100 WBCNormal0.0 - 0.0St. [facility] HospitalComment on above:Performed By: #### CBCDF #### [address] [address]Ejupaunmj (Bld) [#/Vol]138 10*3/oPKnh171 - 450St. [facility] HospitalComment on above:Performed By: #### CBCDF #### [address] [address]BAV8.71 x10E12/LNormal4.50 - 5.90[facility] Comment on above:Performed By: #### CBCDF #### [address] [address]TZV (Bld) [#/Vol]4.2 10*3/uLLow4.4 - 11.3St. [facility] HospitalComment on above:Performed By: #### CBCDF #### [address] [address]QTPFJXOSQEKRH PANELon 81-69-6314Wnaghho [Mass/Vol]4.3 g/dL Normal3.4 - 5.0St. [facility] HospitalComment on above:Performed By: #### CMP #### [address] [address]STU [Catalytic activity/Vol]89 U/AXdgfrn91 - 136St. [facility] HospitalComment on above:Performed By: #### CMP #### [address] [address]BBF [Catalytic activity/Vol]43 U/MXmwnix24 - 52St. [facility] HospitalComment on above:Result Comment: Patients treated with Sulfasalazine may generate falsely decreased results for ALT.Performed By: #### CMP #### [address] [place] [address]Uidqb gap [Moles/Vol]11 mmol/DUsbwft36 - 20St. [facility] HospitalComment on above:Performed By: #### CMP #### [address] [place], [place] [address]WNC [Catalytic activity/Vol]31 U/LNormal9 - 39St. [facility] HospitalComment on above:Performed By: #### CMP #### [address] [address]Ownngaovq [Mass/Vol]0.7 mg/dLNormal0.0 - 1.2St. [facility] HospitalComment on above:Performed By: #### CMP #### [address] [address]Jimvbgs [Mass/Vol]9.5 mg/dLNormal8.6 - 10.3St. [facility] HospitalComment on above:Performed By: #### CMP #### [address] [address]Hofazlfb [Moles/Vol]105 mmol/JWbkrfg59 - 107St. [facility] HospitalComment on above:Performed By: #### CMP #### [address] [address]Zkfdzuknbi [Mass/Vol]1.76 mg/dLHigh0.50 - 1.30St. [facility] HospitalComment on above:Performed By: #### CMP #### [address] [address]CEK/1.73 sq M.predicted among non-blacks MDRD (S/P/Bld) [Vol rate/Area]43 mL/min/{1.73_m2}Abnormal>90St. [facility] HospitalComment on above: Result Comment: CALCULATIONS OF ESTIMATED GFR ARE PERFORMED USING THE 2020 CKD-EPI STUDY REFIT EQUATION WITHOUT THE RACE VARIABLE FOR THE IDMS-TRACEABLE CREATININE METHODS. https://jasn.asnjournals.org/content//ASN.4868693660Cxdmvmbyr By: #### CMP #### [address] [facility] [place] [address]Bfdqwam [Mass/Vol]117 mg/rPQxvz48 - 99[facility] Comment on above:Performed By: #### CMP #### [address] [address]SBY1 (Bld) [Moles/Vol]27 mmol/HAjzyce69 - 32St. [facility] HospitalComment on above:Performed By: #### CMP #### [address] [address]Bfwciykjz [Moles/Vol]4.3 mmol/LNormal3.5 - 5.3St. [facility] HospitalComment on above:Performed By: #### CMP #### [address] [address]Bcpvqxv [Mass/Vol]7.0 g/dLNormal6.4 - 8.2St. [facility] HospitalComment on above:Performed By: #### CMP #### [address] [address]Ngmiim [Moles/Vol]139 mmol/NNwuwql358 - 145St. [facility] HospitalComment on above:Performed By: #### CMP #### [address] [address]Frou nitrogen [Mass/Vol]23 mg/dLNormal6 - 23St. 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 COMPARISON: CT chest 06/13/2020; CT abdomen pelvis dated 01/02/2019 ACCESSION NUMBER(S): [id number] ORDERING CLINICIAN: ANIRUDH SEARS TECHNIQUE: CT of [...] There are atherosclerotic changes of the aorta. PERITONEUM/RETROPERITONEUM/LYMPH NODES: There is no free air or [...] next to the spleen. Electronically signed by: Amanda STEEN. [facility] HospitalCT SINUS W CONTRASTon [id number] SINUS W CONTRASTMRN: [id number] Patient Name: KATERINA DANIELLE STUDY: CT NECK WITH CONTRAST; CT SINUS W CONTRAST; 11/14/2021 10:51 am INDICATION: HX DLBCL new sinus symptoms, same location as prior occurence 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 COMPARISON: June 2018. ACCESSION NUMBER(S): [id number]; [id number] ORDERING CLINICIAN: ANIRUDH SEARS TECHNIQUE: Following intravenous [...] the neck. THIS EXAMINATION WAS INTERPRETED AT [facility] Electronically signed by: Amanda WEST. [facility] HospitalNR CT NECK WITH CONTRASTon [id number] CT NECK WITH CONTRASTMRN: [id number] Patient Name: KATERINA DANIELLE STUDY: CT NECK WITH CONTRAST; CT SINUS W CONTRAST; 11/14/2021 10:51 am INDICATION: HX DLBCL new sinus symptoms, same location as prior occurence 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 COMPARISON: June 2018. ACCESSION NUMBER(S): [id number]; [id number] ORDERING CLINICIAN: ANIRUDH SEARS TECHNIQUE: Following intravenous [...] the neck. THIS EXAMINATION WAS INTERPRETED AT [facility] Electronically signed by: Amanda WEST. [facility] HospitalTobacco Screening.on [id number] risk assessmenta) No falls within the last yearMP-[facility] DO Work Phone: Tobacco use status CPHSb) NoMP-[address] [place] [address] DO Work Phone: Complete Blood Count + Differentialon 05-21-2021 Basophils/100 WBC (Bld)0.5 %0.0 - 2.3HC-Fngymaazxo-Aohaganx 2100 DO Work Phone: Erythrocyte distribution width (RBC) [Ratio]15.6 % above high thresholdSee GnzzeWX-Ohxjkhvxzp-Jqngnoyj 2099 DO Work Phone: [phone] on above:Reference Range: 11.5 - 14.5 Hematocrit (Bld) [Volume fraction]46.6 %See DwsulYS-Iwkjjgkodv-Uyxpgcxw 2099 DO Work Phone: Comment on above:Reference Range: 41.0 - 52.0 Hemoglobin (Bld) [Mass/Vol]14.8 g/dLSee IxxrtFU-Yrmdtdsyhu-Ewogttve 2099 DO Work Phone: Comment on above:Reference Range: 13.5 - 17.5 Lymphocytes/100 WBC (Bld)27.6 %See KboqqZJ-Ruacaoovgh-Sdhvuklj 2099 DO Work Phone: [phone] on above:Reference Range: 13.0 - 44.0MCHC (RBC) [Mass/Vol]31.8 g/dLbelow low thresholdSee NaeaoNJ-Zmqgmoqerp-Jamuhjwh 2099 DO Work Phone: Comment on above:Reference Range: 32.0 - 36.0MCV (RBC) [Entitic vol]87 fL80 - 411JC-Cmpbrsqiyr-Uncjnybp 2099 DO Work Phone: Monocytes/100 WBC (Bld)6.7 %2.0 - 10.0 WQ-Rcwsseftqp-Clifnyrz 2099 DO Work Phone: Neutrophils/100 WBC (Bld)62.6 %See Below XZ-Bgxnlohijw-Jmkleryc 2100 DO Work Phone: Comment on above:Reference Range: 40.0 - 80.0Platelets (Bld) [#/Vol]138 10*3/uLbelow low lmdkoisqc770 - 494EZ-Rseggeylpn-Laliqhbx 2100 DO Work Phone: RBC (Bld) [#/Vol]5.37 {x10E12/L}See Below LE-Popanmtabz-Pgchmjjm 2100 DO Work Phone: Comment on above:Reference Range: 4.50 - 5.90WBC (Bld) [#/Vol]4.2 10*3/uLbelow low threshold4.4 - 11.2PL-Cfyukjyqvp-Iufybpon 2100 DO Work Phone: Complete Blood Count + Differential0.02 {x10E9/L}See CojmqMS-Extqkqifws-Ytqjlgfc 2099 DO Work Phone: Comment on above:Reference Range: 0.00 - 0.10Complete Blood Count + Differential0.08 {x10E9/L}See CnibySA-Nvpktyfwvn-Hlatenxm 2100 DO Work Phone: Comment on above:Reference Range: 0.00 - 0.70Complete Blood Count + Differential0.28 {x10E9/L}See JkyvnJP-Qelttjxqvg-Rxnsseuo 2100 DO Work Phone: Comment on above:Reference Range: 0.10 - 1.00Complete Blood Count + Differential1.15 {x10E9/L}below low thresholdSee Below VA-Ixukyygini-Jnofooeb 2100 DO Work Phone: Comment on above:Reference Range: 1.20 - 4.80Complete Blood Count + Differential2.60 {x10E9/L}See CexbeMW-Zcdzbmqffi-Inbxkgbs 2100 DO Work Phone: Comment on above:Reference Range: 1.20 - 7.70Complete Blood Count + Differential1.9 %0.0 - 6.7WZ-Mwutfrbhbz-Umfotmup 2100 DO Work Phone: Complete Blood Count + Differential0.7 %0.0 - 0.9 HY-Anrrgxnlel-Fwpqtitv 2100 DO Work Phone: Comment on above:Immature Granulocyte Count (IG) includes promyelocytes, myelocytes and metamyelocytes but does not include bands. Percent differential counts (%) should be interpreted in the context of the absolute cell counts (cells/L).Immunoglobulin G Level, Serumon [id number] [Mass/Vol]1100 mg/dL700 - 8292KR-Gcoxlwybkp-Nvcjjtys 2099 DO Work Phone: Comment on above:MONOCLONAL PROTEINS MAY CAUSE FALSELY LOWRESULTS IN THIS ASSAY. SERUM PROTEINELECTROPHORESIS SHOULDBE DONE THEFIRST TEST TO EVALUATE MONOCLONAL GAMMOPATHY.Laboratory - Chemistry and Chemistry - challengeon [id number] BCP dye [Mass/Vol]4.2 g/dL3.4 - 5.0 CE-Lmsqpvamog-Omnxbonn 2099 DO Work Phone: ALP [Catalytic activity/Vol]86 U/L33 - 136 VI-Rdmusyryre-Ktqgrryn 2099 DO Work Phone: ALT With P-5'-P [Catalytic activity/Vol]32 U/L10 - 52 SV-Ztmvegpwce-Qepzpnfu 2099 DO Work Phone: Comment on above:Patients treated with Sulfasalazine may generate falsely decreased results for ALT.Anion gap [Moles/Vol]11 mmol/L10 - 24YW-Pgohdxatli-Pdmfgznc 2099 DO Work Phone: AST With P-5'-P [Catalytic activity/Vol]28 U/L9 - 39 UX-Olcsyfqgnd-Qpgeyzqo 2099 DO Work Phone: Bilirubin [Mass/Vol]0.6 mg/dL0.0 - 1.2 WM-Htifrhvjku-Vsubnuig 2099 DO Work Phone: Calcium [Mass/Vol]9.2 mg/dL8.6 - 10.3 NT-Cungxixvil-Kyxhujrr 2099 DO Work Phone: Chloride [Moles/Vol]107 mmol/L98 - 107 EV-Hhrnvdkvgs-Phcdabyj 2099 DO Work Phone: NS3 [Moles/Vol]27 mmol/L21 - 46BX-Jfyenfnwzp-Vbkoxtoa 2099 DO Work Phone: Creatinine [Mass/Vol]1.77 mg/dLabove high thresholdSee WkwqfVL-Vqaurxhkya-Vuewdmxe 2099 DO Work Phone: Comment on above:Reference Range: 0.50 - 1.30Glucose [Mass/Vol]99 mg/dL74 - 81VY-Uwiyjnawvk-Cphxktty 2100 DO Work Phone: Potassium [Moles/Vol]4.5 mmol/L3.5 - 5.3 OC-Giclkdeykj-Vxxqvgui 2100 DO Work Phone: Protein [Mass/Vol]7.0 g/dL6.4 - 8.2 FO-Enehvmghlr-Rfotkycq 2100 DO Work Phone: Sodium [Moles/Vol]140 mmol/L136 - 145 VE-Vymaoqeavb-Pnshacqv 2100 DO Work Phone: Urea nitrogen [Mass/Vol]22 mg/dL6 - 23 XN-Dxnyjotqcd-Pnqprifz 2100 DO Work Phone: No Panel Informationon {mL/min/1.73m2} Abnormal>21OX-Pkncyjkrsa-Uipmijfh 2100 DO Work Phone: Comment on above:CALCULATIONS OF ESTIMATED GFR ARE PERFORMED USING THE MDRD STUDY EQUATION FOR THE IDMS-TRACEABLE CREATININE METHODS. CLIN CHEM 2007;53:766-7239 {mL/min/1.73m2}Abnormal>60 KG-Qarkqvhhzj-Zbiszefr 2100 DO Work Phone: CBC AND DIFFERENTIALon 01-21-2020% AUTOMATED IMMATURE GRAN1.9 %High0.0 - 0.9[facility] HospitalComment on above:Result Comment: Immature Granulocyte Count (IG) includes promyelocytes, myelocytes and metamyelocytes but does not include bands. Percent differential counts (%) should be interpreted in the context of the absolute cell counts (cells/L).Performed By: #### CBCDF #### [address] [address]Oylihbuim (Bld) [#/Vol]0.02 10*3/uLNormal0.00 - 0.10[facility] PetersburgComment on above:Performed By: #### CBCDF #### [address] [place] [address]Fafjlzvsg/100 WBC (Bld)0.5 %Normal0.0 - 2.0[facility] HospitalComment on above:Performed By: #### CBCDF #### [address] [address]Msxqemynnke (Bld) [#/Vol]0.25 10*3/uLNormal0.00 - 0.70[facility] HospitalComment on above:Performed By: #### CBCDF #### [address] [address]Eqlyiwdxhxx/100 WBC (Bld)6.0 %Normal0.0 - 6.0[facility] HospitalComment on above:Performed By: #### CBCDF #### [address] [address]Qsdrkybssoz distribution width (RBC) [Ratio]14.2 %Tctqcc48.5 - 14.5[facility] HospitalComment on above:Performed By: #### CBCDF #### [address] [address]Dzrvtjqsnp (Bld) [Volume fraction]46.7 %Xntxhw26.0 - 52.0[facility] HospitalComment on above:Performed By: #### CBCDF #### [address] [address]Qpviecuxin (Bld) [Mass/Vol]14.8 g/vIZsrnny85.5 - 17.5[facility] HospitalComment on above:Performed By: #### CBCDF #### [address] [address]Zgljxdoipnx (Bld) [#/Vol]1.10 10*3/uLLow1.20 - 4.80[facility] HospitalComment on above:Performed By: #### CBCDF #### [address] [address]Qskciodqmuq/100 WBC (Bld)26.6 %Eefyjd26.0 - 44.0[facility] HospitalComment on above:Performed By: #### CBCDF #### [address] [address]WDZP (RBC) [Mass/Vol]31.7 g/dLLow32.0 - 36.0[facility]-St. PetersburgComment on above:Performed By: #### CBCDF #### [address] [address]YJG (RBC) [Entitic vol]85 zZAyhmnz37 - 100[facility]-St. PetersburgComment on above:Performed By: #### CBCDF #### [address] [address]Mmswfdqrj (Bld) [#/Vol]0.48 10*3/uLNormal0.10 - 1.00[facility]-St. PetersburgComment on above:Performed By: #### CBCDF #### [address] [address]Jqcozjkmm/100 WBC (Bld)11.6 %Normal2.0 - 10.0[facility] above:Performed By: #### CBCDF #### [address] [address]Qhusykdwtex (Bld) [#/Vol]2.21 10*3/uLNormal1.20 - 7.70[facility]Comment [place] above:Performed By: #### CBCDF #### [address] [address]Caborwhysup/100 WBC (Bld)53.4 %Qoqzpq93.0 - 80.0[facility]Comment on above:Performed By: #### CBCDF #### [address] [address]Xoibgjcse (Bld) [#/Vol]122 10*3/zRSrw706 - 450[facility]-[place]Comment on above:Performed By: #### CBCDF #### [address] [address]EIS (Bld) [#/Vol]5.47 x10E12/LNormal4.50 - 5.90[facility] [place]:Performed By: #### CBCDF #### [address] [address]LYA (Bld) [#/Vol]4.1 10*3/uLLow4.4 - 11.3[facility]-[place]Comment on above:Performed By: #### CBCDF #### [address] 133[address]QYJCBNHWYNNPT PANELon 57-84-7150Cgpdofk [Mass/Vol]4.7 g/dLNormal 3.4 - 5.0[facility] HospitalComment on above:Performed By: #### PHOS #### [address] [address]FCP [Catalytic activity/Vol]186 U/LHigh33 - 120[facility] HospitalComment on above:Performed By: #### PHOS #### [address] 93407FRC [Catalytic activity/Vol]46 U/ZJawmuj35 - 52[facility] HospitalComment on above:Result Comment: Patients treated with Sulfasalazine may generate falsely decreased results for ALT.Performed By: #### PHOS #### [address] [address]Podvx gap [Moles/Vol]11 mmol/LFfotxb81 - 20[facility] HospitalComment on above:Performed By: #### PHOS #### [address] 737[address]NFU [Catalytic activity/Vol]30 U/LNormal9 - 39[facility] HospitalComment on above:Performed By: #### PHOS #### [address] 76395Ghdincuxa [Mass/Vol]0.6 mg/dLNormal0.0 - 1.2[facility]-[place]Comment on above:Performed By: #### PHOS #### [address] 33987Laauyrc [Mass/Vol]9.2 mg/dLNormal8.6 - 10.3[facility]-[place] PetersburgComment on above:Performed By: #### PHOS #### [address] [address]Qlhfdtom [Moles/Vol]106 mmol/SCwayam22 - 107[facility]-[place] PetersburgComment on above:Performed By: #### PHOS #### [address] [address]Hiqmbtwxta [Mass/Vol]1.90 mg/dLHigh0.50 - 1.30[facility]-[place] PetersburgComment on above:Performed By: #### PHOS #### [address] [address]IQH-JZGTFCB AM.44 mL/min/1.50c1Crysiwcy>60[facility] HospitalComment on above:Result Comment: CALCULATIONS OF ESTIMATED GFR ARE PERFORMED USING THE MDRD STUDY EQUATION FOR THE IDMS-TRACEABLE CREATININE METHODS. CLIN CHEM 2007;53:766-72Performed By: #### PHOS #### [address] [address]OBR-GWZ AM.36 mL/min/1.41f8Jijzsiwe>60[facility] HospitalComment on above:Performed By: #### PHOS #### [address] [address]Qgmstct [Mass/Vol]62 mg/dLLow74 - 99[facility] [place] Comment on above:Performed By: #### PHOS #### [address] 16369MYZ6 (Bld) [Moles/Vol]29 mmol/SNvyqiz15 - 32[facility]-[place] PetersburgComment on above:Performed By: #### PHOS #### [address] 217[address]Nyjxkfzvp [Moles/Vol]4.1 mmol/LNormal3.5 - 5.3[facility]-[place] PetersburgComment on above:Performed By: #### PHOS #### [address] [address]Rmgklsm [Mass/Vol]6.5 g/dLNormal6.4 - 8.2[facility] HospitalComment on above:Performed By: #### PHOS #### [address] 26472Kfeyio [Moles/Vol]142 mmol/ANouivj591 - 145[facility] HospitalComment on above:Performed By: #### PHOS #### [address] 25562Bmpb nitrogen [Mass/Vol]23 mg/dLNormal6 - 23[facility] HospitalComment on above:Performed By: #### PHOS #### [address] 59709JXMlv 00-97-7737ELV595 U/FGtkosy95 - 246[facility] Comment on above:Performed By: #### PHOS #### [address] 638[address]PQEXBFDPMCO HORMONE,INTACTon 19-23-3665XHJXBEYBLZY HORMONE,AVFJCK656.7 pg/bQLdkq71.5 - 88.0[facility] HospitalComment on above:Result Comment: Patients receiving more than 5 mg/day of biotin may have interference in test results. A sample should be taken no sooner than eight hours after previous dose. Contact the testing laboratory for additional information.Performed By: #### PHOS #### [address] 24327YQQLQXSFCOhs 75-96-9522Mbiypeqhg [Mass/Vol]2.8 mg/dLNormal2.5 - 4.9[facility] HospitalComment on above:Result Comment: The performance characteristics of phosphorus testing in heparinized plasma have been validated by the individual laboratory site where testing is performed. Testing on heparinized plasma is not approved by the FDA; however, such approval is not necessary.Performed By: #### PHOS #### [address] [place] [address]ULVK ACIDon 84-62-7747Owqdm [Mass/Vol]5.9 mg/dLNormal4.0 - 7.5[facility] HospitalComment on above:Result Comment: Venipuncture immediately after or during the administration of Metamizole may lead to falsely low results. Testing should be performed immediately prior to Metamizole dosing.Performed By: #### PHOS #### [address] 33[address]FWCST METABOLIC PANELon 71-92-6816Pyjxr gap [Moles/Vol]11 mmol/L Oxgnam54 - 20[facility] HospitalComment on above:Performed By: #### BMP #### [address] [address]Yrrcofb [Mass/Vol]9.0 mg/dLNormal8.6 - 10.3[facility] HospitalComment on above:Performed By: #### BMP #### [address] [address]10Ezecdecn [Moles/Vol]109 mmol/LHigh98 - 107[facility] HospitalComment on above:Performed By: #### BMP #### [address] [address]Xauhkibwgf [Mass/Vol]1.92 mg/dLHigh0.50 - 1.30[facility] HospitalComment on above:Performed By: #### BMP #### [address] 68[address]WGQ-CNOQFZN AM.44 mL/min/1.75s9Layuckan>60[facility] HospitalComment on above:Result Comment: CALCULATIONS OF ESTIMATED GFR ARE PERFORMED USING THE MDRD STUDY EQUATION FOR THE IDMS-TRACEABLE CREATININE METHODS. CLIN CHEM 2007;53:766-72Performed By: #### BMP #### [address] 24[address]NMU-LLO AM.36 mL/min/1.26e2Ayaqdwmf>60[facility] HospitalComment on above:Performed By: #### BMP #### [address] [address]Kyerkpf [Mass/Vol]64 mg/dLLow74 - 99[facility] [place] Comment on above:Performed By: #### BMP #### [address] [address]18[address]RCP5 (Bld) [Moles/Vol]27 mmol/MAzialu29 - 32[facility]-[place]Comment on above:Performed By: #### BMP #### [address] [address]Ojmmnjjfq [Moles/Vol]4.1 mmol/LNormal3.5 - 5.3[facility]-[place]. PetersburgComment on above:Performed By: #### BMP #### [address] [address]Rmxiac [Moles/Vol]143 mmol/DBioupc805 - 145[facility]-[place]. PetersburgComment on above:Performed By: #### BMP #### [address] [address]71Qrzj nitrogen [Mass/Vol]27 mg/dLHigh6 - 23[facility]-[place]. PetersburgComment on above:Performed By: #### BMP #### [address] [address]Pvkitsvfl Panelon 39-73-0418Boqxf gap [Moles/Vol]11 mmol/L10 - 05DJ-Dhgvatrpot-FmtldceSan[facility] Work Phone: [phone] [Mass/Vol]9.0 mg/dL8.6 - 10.3 EE-Tfdigajozf-WsfrrsdSanford Medical Center [facility] Work Phone: [phone] [Moles/Vol]109 mmol/Labove high gwovmzuvp79 - 512BU-Xxgkrqcels-JkxcxfbSan[facility] Work Phone: [phone] [Moles/Vol]27 mmol/L21 - 36UH-Ljseqxwvzj-OfukqktSanford Medical Center [facility] Work Phone: [phone] [Mass/Vol]1.92 mg/dLabove high thresholdSee ZnzcdRX-Xetwblasyy-Llelyuq [facility] Work Phone: comment on above:Reference Range: 0.50 - 1.30Glucose [Mass/Vol]64 mg/dLbelow low pucjcqwmr79 - 07JN-Xmsrzranns-IdrrqhrChi [facility] Work Phone: potassium [Moles/Vol]4.1 mmol/L3.5 - 5.3 US-Pfcxaumngy-AmjvuusChi [facility] Work Phone: Sodium [Moles/Vol]143 mmol/L136 - 145 DI-Ybthjykicu-AjpyxwlChi [facility] Work Phone: Urea nitrogen [Mass/Vol]27 mg/dLabove high threshold6 - 43ZI-Gtimcczros-RqsssnuChi [facility] Work Phone: Otheron 14-25-4092Nrndfqjshzb by: FOEUDJ13/27/19 14:38MRN: [id number] Name: KATERINA DANIELLE STUDY:US RENAL BILAT;07/27/2019 2:41 pm INDICATION:CKD, Essential (primary) hypertension, Diffuse large B-cell lymphoma.COMPARISON:None. ORDERING CLINICIAN:CHRISTOPHER WATKINS TECHNIQUE:Multiple images of the kidneys were obtained . FINDINGS:RIGHT KIDNEY:The right kidney is 11.4 cm in longest axis. There is no evidence ofhydronephrosis. No definite renal masses or stones. LEFT KIDNEY:The left k idney is 10 cm in longest axis. No evidence ofhydronephrosis. Definite stones. BLADDER:The bladder is grossly unremarkable IMPRESSION:No hydronephrosis or suspicious renal masses or obstructing stonesElectronically signed by: CHELSEA 07/28/19 14:67JscoksMF-Owhgnikurr-PeillbwChi [facility] Work Phone: [phone] {mL/min/1.73m2}Abnormal>06TK-Lhxjtoluhk-NtrraphChi [facility]. [facility] Work Phone: comment on above:CALCULATIONS OF ESTIMATED GFR ARE PERFORMED USING THE MDRD STUDY EQUATION FOR THE IDMS-TRACEABLE CREATININE METHODS. CLIN CHEM 2007;53:766-7236 {mL/min/1.73m2}Abnormal>60 OZ-Xtnoifjgtc-XgqlbttChi [facility] Work Phone: please click on the link to view the study images WcfaqhBG-Vjutxezvma-QzbkgubChi St[facility] Work Phone: pARATHYROID HORMONE,INTACTon 55-49-1727BNUBHMTVECW HORMONE,PYUEAX437.6 pg/dDHkpo05.5 - 88.0[facility] HospitalComment on above:Result Comment: Patients receiving more than 5 mg/day of biotin may have interference in test results. A sample should be taken no sooner than eight hours after previous dose. Contact the testing laboratory for additional information.Performed By: #### PTH #### [address] 35[address]PVUZBMZWSQcb 83-30-2311Ipbyxxbnc [Mass/Vol]2.7 mg/dLNormal2.5 - 4.9[facility] HospitalComment on above:Result Comment: The performance characteristics of phosphorus testing in heparinized plasma have been validated by the individual laboratory site where testing is performed. Testing on heparinized plasma is not approved by the FDA; however, such approval is not necessary.Performed By: #### PHOS #### [address] [address]Hqazlottnhia Intact, Serumon 55-29-9771Dkhewkowts.intact [Mass/Vol]117.6 pg/mLabove high thresholdSee IuitaGF-Ccucyhtlyx-XzfvrxvNelson County Health System Work Phone: comment on above:Reference Range: 18.5 - 88.0 Patients receiving more than 5 mg/day of biotin may have interference in test results. A sample should be taken no sooner than eight hours after previous dose. Contact the testing laboratory for additional information.Phosphorus, Serumon 07-27-2019 Phosphate [Mass/Vol]2.7 mg/dL2.5 - 4.4LZ-Moyqwcbuyh-SmvdawbChi [facility] Work Phone: comment on above:The performance characteristics of phosphorus testing in heparinized plasma have been validated by the individual laboratory site where testing is performed. Testing on heparinized plasma is not approved by the FDA; however, such approval is not necessary.TOTAL PROTEIN, URINE SPOTon 33-18-7895WPIPBODILM,DMDQJ156.0 mg/yEUemtiu72.0 - 370.0[facility] HospitalComment on above:Performed By: #### TPS2 #### [address] [address]L. PROTEIN/CREAT RATIO0.37 mg/mg CreatHigh0.00 - 0.17[facility]-[place]Comment on above:Performed By: #### TPS2 #### [address] [address]YCDFI PROT,URINE SPOT61 mg/dLHigh5 - 25[facility] Comment on above:Performed By: #### TPS2 #### [address] 225[address]Wrxhx Protein, Urine Spoton 74-79-9352Yfjqlbofmb (U) [Mass/Vol] 167.0 mg/dLSee GyjczYG-Lxnotwaxkb-YifuawsChi [facility] Work Phone: comment on above:Reference Range: 20.0 - 370.0 Protein/Creatinine (U) [Ratio]0.37 {mg/mg_Creat}above high thresholdSee Below LR-Yujkpubtze-DcgrwnjNelson County Health System Work Phone: comment on above:Reference Range: 0.00 - 0.17Total Protein, Urine Spot61 mg/dLabove high threshold5 - 51FV-Bdxxescqhs-FnskwimChi [facility]. [facility] Work Phone: UA MICROSCOPICon 12-46-9147LNQHZ0+ /LPFNormalUH [facility] Area-St. PetersburgComment on above:Performed By: #### UAMIC #### [address] [address]HFC7 /HPFNormal0-5[facility] HospitalComment on above: Performed By: #### UAMIC #### [address] [address]CZF1 /HPFNormal0-5[facility] HospitalComment on above: Performed By: #### UAMIC #### [address] [address]AKAA ACIDon 54-90-3258Zzgep [Mass/Vol]5.8 mg/dLNormal4.0 - 7.5[facility] HospitalComment on above:Result Comment: Venipuncture immediately after or during the administration of Metamizole may lead to falsely low results. Testing should be performed immediately prior to Metamizole dosing.Performed By: #### URIC #### [address] [address]JSCKDVMZCFfv 57-43-8492Tgzqwtbvnd (U)CLEARNormalCLEARDelta County Memorial HospitalComment on above:Performed By: #### UA #### [address] [address]Cmdsmjjkv (U) [Mass/Vol]NegativeNormalNEGATIVEDelta County Memorial HospitalComment on above:Performed By: #### UA #### [address] 92998EQYCZLJWPW(1+)AbnormalNEGATIVEDelta County Memorial HospitalComment on above:Performed By: #### UA #### [address] 244[address]Ybxvq (U)YELLOWNormalSTRAW,YELLOWDelta County Memorial HospitalComment on above:Performed By: #### UA #### [address] 17983Xdnvuuw [Mass/Vol]NegativeNormalNEGOur Lady of [facility] Comment on above:Performed By: #### UA #### [address] [address]Vgslbib Ql (U)NegativeNormalNEGOur Lady of [facility] Comment on above:Performed By: #### UA #### [address] [address]Oguxqzzhu esterase Test strip Ql (U)NegativeNormalNEGOur Lady of Lourdes Regional Medical CenterComment on above:Performed By: #### UA #### [address] [address]Rjvtvlu Ql (U)NegativeNormalNEGATIVEDelta County Memorial Hospital Comment on above:Performed By: #### UA #### [address] 80841uQ (Bld)6.7Ylkizr6.0 - 8.0[facility] HospitalComment on above:Performed By: #### UA #### [address] [address]Kwtzulc (U) [Mass/Vol]30 (1+)AbnormalNEGATIVEDelta County Memorial HospitalComment on above:Performed By: #### UA #### [address] [address]Kfqczqnr gravity (U) [Rel density]1.127Bvhpsd1.005 - 1.035[facility] HospitalComment on above:Performed By: #### UA #### [address] [address]Ohnxvipbdxyr Qn (U)<2.2Urjnlx4.0 - 1.9[facility] Comment on above:Performed By: #### UA #### [address] [address]MA RENAL BILATon 07-08-5496GP RENAL BILATMRN: [id number] Patient Name: KATERINA DANIELLE STUDY: US RENAL BILAT; 07/27/2019 2:41 pm INDICATION: CKD, Essential (primary) hypertension, Diffuse large B-cell lymphoma. COMPARISON: None. ACCESSION NUMBER(S): [id number] ORDERING CLINICIAN: CHRISTOPHER WATKINS TECHNIQUE: Multiple images [...] masses or obstructing stones Electronically signed by: AREZOU FARAJI, MDNoSan Luis Valley Regional Medical CenterUric Acid, Serumon 26-82-8209Zvxmf [Mass/Vol]5.8 mg/dL4.0 - 7.4FW-Tqdevtytzb-QsjispxChi [facility] Work Phone: comment on above:Venipuncture immediately after or during the administration of Metamizole may lead to falsely low results. Testing should be performed immediately prior to Metamizole dosing.Urinalysison 47-87-6647Bztelgippd (U)RRLJLWVODBQI-Kyyslhluwq-GitjxpwChi St[facility] Work Phone: [phone] (U)YELLOWSee VostjZH-Gjdocsgsie-MmhjfljLaird Hospital Work Phone: comment on above:Reference Range: STRAW,YELLOWGlucose Ql (U)BumkkgmhGPDZCIYCTJ-Tyrfwcikbj-AnbrixyLaird Hospital Work Phone: [phone] Ql (U)KecmqttcXWJIGLNZQZ-Vxomqvmqel-LqejbejLaird Hospital Work Phone: [phone] esterase Test strip Ql (U)NegativeNEGATIVE [facility] Work Phone: [phone] (U)6.0 [pH]5.0 - 8.6LH-Musebmqteq-KtnogkaChi St. [facility] Work Phone: [phone] (U) [Mass/Vol]30 (1+)AbnormalNEGATIVE [facility] Work Phone: [phone] (U) [#/Vol]SMALL(1+)AbnormalNEGATIVE [facility] Work Phone: [phone] gravity (U) [Rel density]1.021See Below [facility] Work Phone: comment on above:Reference Range: 1.005 - 1.035 QjwjccncisYpsohizuLPUCPKTGHM-Accuqnqnij-Uhhdwnv [facility] Work Phone: [phone]<2.00.0 - 1.2LR-Bdxlapsyth-IpkjhnpSanford Medical Center Work Phone: Urinalysis, Microscopicon 36-38-8785Rrwwiwusis, Microscopic1 {/HPF}9-2NZ-RkufbflibfChi [facility] Work Phone: Urinalysis, Microscopic1+VY-Anhrruthbh-TtslprpChi [facility] Work Phone: VITAMIN D, 25-HYDROXYon 06-73-1335ZXSYHHQ D, 25-CICMWPY40 ng/mLNWray Community District HospitalComment on above:Result Comment: . DEFICIENCY: < 20 NG/ML INSUFFICIENCY: 20-29 NG/ML OPTIMUM LEVEL: 30-80 NG/ML POSSIBLE TOXICITY: > 80 NG/ML THIS ASSAY ACCURATELY QUANTIFIES THE SUM OF VITAMIN D3, 25-HYDROXY AND VIT D2,25-HYDROXY.Performed By: #### VTDOH #### [address] [address]Qvgicnt D 25-Hydroxyon 96-69-7637Nmvgnmhww [Mass/Vol]66 ng/mL [facility] Work Phone: comment on above:.DEFICIENCY: < 20 NG/MLINSUFFICIENCY: 20-29 NG/MLOPTIMUM LEVEL: 30-80 NG/MLPOSSIBLE TOXICITY: > 80 NG/MLTHIS ASSAY ACCURATELY QUANTIFIES THE SUM OFVITAMIN D3, 25-HYDROXY AND VIT D2,25-HYDROXY. Complete Blood Count + Differentialon 21-53-3955Uousirfwe (Bld) [#/Vol]0.01 {x10E9/L}See EowozTL-Dctwmancd-Pizshgt Work Phone: Comment on above:Reference Range: 0.00 - 0.10 Basophils/100 WBC (Bld)0.3 %0.0 - 2.3KB-Uufzgijxh-Ceisrdc Work Phone: Eosinophils (Bld) [#/Vol]0.09 {x10E9/L}See Below [facility] [place] Work Phone: [phone] on above:Reference Range: 0.00 - 0.70 Eosinophils/100 WBC (Bld)2.8 %0.0 - 6.1UB-Bxxrgmuxj-Fxtivuh Work Phone: [phone] distribution width (RBC) [Ratio]15.4 % above high thresholdSee OvhqdBP-Ixwkoiiux-Oigyzbp Work Phone: [phone] on above:Reference Range: 11.5 - 14.5 Hematocrit (Bld) [Volume fraction]43.5 %See PixxoDG-Uohwvgnlt-Yeesker Work Phone: [phone] on above:Reference Range: 41.0 - 52.0 Hemoglobin (Bld) [Mass/Vol]13.6 g/dLSee SubixOE-Hpzpegrbf-Jirhbja Work Phone: [phone] on above:Reference Range: 13.5 - 17.5 Lymphocytes (Bld) [#/Vol]0.93 {x10E9/L}below low thresholdSee Below NP-Qvnchoyxz-Vnysnlw Work Phone: [phone] on above:Reference Range: 1.20 - 4.80 Lymphocytes/100 WBC (Bld)29.3 %See YicllLI-Wdejtrknw-Cwqirsy Work Phone: [phone] on above:Reference Range: 13.0 - 44.0MCHC (RBC) [Mass/Vol]31.3 g/dLbelow low thresholdSee GcrrdMT-Okefufime-Trpvcfq Work Phone: [phone] on above:Reference Range: 32.0 - 36.0MCV (RBC) [Entitic vol]87 fL80 - 737JM-Iwkubckpl-Irwslua Work Phone: [phone] (Bld) [#/Vol]0.28 {x10E9/L}See Below YY-Rciyqguou-Oqsbeoj Work Phone: [phone] on above:Reference Range: 0.10 - 1.00 Monocytes/100 WBC (Bld)8.8 %2.0 - 10.7CO-Tnboajjbs-Nnoetsl Work Phone: [phone] (Bld) [#/Vol]1.84 {x10E9/L}See Below GN-Ldqrhhivd-Enqzzoc Work Phone: [phone] on above:Reference Range: 1.20 - 7.70 Neutrophils/100 WBC (Bld)58.2 %See XeurbLN-Hbshzjgxc-Wwokune Work Phone: [phone] on above:Reference Range: 40.0 - 80.0Platelets (Bld) [#/Vol]61 {x10E9/L}below low - 010JA-Qlazbaoas-Twnhvgx Work Phone: [phone] (Bld) [#/Vol]5.02 {x10E12/L}See Below SI-Iuwvhtpnv-Pskwnjz Work Phone: [phone] on above:Reference Range: 4.50 - 5.90WBC (Bld) [#/Vol]3.2 {x10E9/L}below low threshold4.4 - 11.3BL-Jruzgctnb-Nujcofi Work Phone: [phone] Blood Count + Differential0.6 %0.0 - 0.9 KT-Gdhxwkghi-Kvjumai Work Phone: [phone] on above:Percent differential counts (%) should be interpreted in the context of the absolute cell counts (cells/L).Gamma Glutamyl Transferase, Serumon 62-22-3466Evvot glutamyl transferase [Catalytic activity/Vol]522 U/Labove high threshold5 - 29YS-Lpfmmohtt-Jscoohu Work Phone: [phone]/Pathon 08-42-1179WwZ [Mass/Vol]13 mg/dLbelow low yohnujynh38 - 711OH-Mmowlvzxg-Bonmqzt Work Phone: [phone] on above:MONOCLONAL PROTEINS MAY CAUSE FALSELY LOWRESULTS IN THIS ASSAY. SERUM PROTEINELECTROPHORESIS SHOULDBE DONE THEFIRST TEST TO EVALUATE MONOCLONAL GAMMOPATHY.IgG [Mass/Vol]589 mg/dLbelow low efbtfaxyz801 - 4272RK-Bxbrseuje-Rdhjqpl Work Phone: [phone] on above:MONOCLONAL PROTEINS MAY CAUSE FALSELY LOWRESULTS IN THIS ASSAY. SERUM PROTEINELECTROPHORESIS SHOULDBE DONE THEFIRST TEST TO EVALUATE MONOCLONAL GAMMOPATHY.IgM [Mass/Vol]mg/rBVgnzbgdy91 - 147HL-Tbvteqbif-Zgzipfb Work Phone: [phone] on above:MONOCLONAL PROTEINS MAY CAUSE FALSELY LOWRESULTS IN THIS ASSAY. SERUM PROTEINELECTROPHORESIS SHOULDBE DONE THEFIRST TEST TO EVALUATE MONOCLONAL GAMMOPATHY.Metabolic Panelon 71-66-9617PFE [Catalytic activity/Vol]271 U/Labove high mtlsczakt11 - 190KX-Kywemrmai-Lwuqoob Work Phone: [phone] gap [Moles/Vol]13 mmol/L10 - 20 LS-Dksaftrdl-Avumrxs Work Phone: [phone] [Mass/Vol]0.5 mg/dL0.0 - 1.2 RM-Pljqxmpln-Spluafo Work Phone: [phone] [Mass/Vol]9.3 mg/dL8.6 - 10.6 CT-Ouwrcbyun-Xuyterw Work Phone: [phone] [Moles/Vol]107 mmol/L98 - 107 NG-Jteqpavpv-Hhmnxbd Work Phone: [phone] [Moles/Vol]26 mmol/L21 - 65FH-Ytszcriwh-Exkojxw Work Phone: [phone] [Mass/Vol]1.82 mg/dLabove high thresholdSee SzparBB-Wvimzmtcu-Poiwhml Work Phone: [phone] on above:Reference Range: 0.50 - 1.30Glucose [Mass/Vol]90 mg/dL74 - 27VY-Mxvrphmfd-Lfvozgr Work Phone: [phone] [Catalytic activity/Vol]202 U/L84 - 246 QO-Mzbbzyvwp-Rnlherh Work Phone: [phone] [Moles/Vol]4.7 mmol/L3.5 - 5.3 RZ-Ikvxxmphl-Qdernjm Work Phone: [phone] [Mass/Vol]6.3 g/dLbelow low threshold6.4 - 8.2 LM-Flmanauqv-Dokjlpz Work Phone: [phone] [Moles/Vol]141 mmol/L136 - 145 BT-Xbnvvqhec-Xekdgld Work Phone: Urea nitrogen [Mass/Vol]32 mg/dLabove high threshold6 - 21VD-Dobdjmkzi-Rlqwbpq Work Phone: [phone] [Mass/Vol]93 mg/dL74 - 87HF-Jxthiqbye-Gixssaf Work Phone: Otheron 95-71-9696Ksqamns BCP dye [Mass/Vol]4.4 g/dL 3.4 - 5.8KJ-Pofeapfxi-Gacwlar Work Phone: [phone] With P-5'-P [Catalytic activity/Vol]56 U/Labove high floprrsns83 - 26AN-Dtudbjypa-Usswgle Work Phone: [phone] on above:Patients treated with Sulfasalazine may generate falsely decreased results for ALT.AST With P-5'-P [Catalytic activity/Vol]39 U/L9 - 74HU-Vggrkcchl-Nyrsjxa Work Phone: [phone] {mL/min/1.73m2}Abnormal>20RE-Uvasuqvha-Vlfkrht Work Phone: Comment on above:CALCULATIONS OF ESTIMATED GFR ARE PERFORMED USING THE MDRD STUDY EQUATION FOR THE IDMS-TRACEABLE CREATININE METHODS. CLIN CHEM 2007;53:766-7238 {mL/min/1.73m2}Abnormal>60 FD-Vexoipgzp-Tcytcvi Work Phone: Interpreted by: DANIAL VICK07/02/19 12:12MRN: [id number] Name: KATERINA DANIELLE STUDY:PET/CT LYMPHOMA STAGING; 07/02/2019 9:33 am INDICATION:Currently on CAR T infusion. Evaluate for disease response. NHL. S/pCAR T Cell therapy. 6 month scan. 58-year-old male with non- Hodgkin'slymphoma, initially diagnosed in the right sphenoid as [...] an intravenous dose of 10.7 mCi of Fluorine-18fluorodeoxyglucose (FDG). Positron emission tomographic (PET) imagesfrom mid-thigh to skull base were then acquired after a one hourdelay. Also acquired was a contemporaneous low dose non-contrast CTscan performed for attenuation correction of PET images and anatomiclocalization. The PETand CT images were digitally fused fordisplay. All images were acquired on a combined PET-CT scanner unit.Some areas of FDG accumulation may be described in standardizeduptake value (SUV) units. CODING:Subsequent Treatment Strategy (PS) CALIBRATION:Dose Eshtmpgck-vi-Bohe Interval (mins): 54 minMediastinal bloodpool SUV (normal [...] evidence of increased FDGuptake, although evaluation is somewhatlimited due to the increasedFDG uptake within the adjacent left renal collecting system andureter. No significant change in size of the perisplenic soft tissuelesion with similar mild FDG uptake witha max SUV of 1.4No evidence of hypermetabolic lymphadenopathy.Physiologic radiotracer uptake is present in the liver [...] interpretation as stated. [facility]Electronically signed by: DANIAL VICK 07/02/19 12:12Normal BH-Twcvqffcs-Shqdayw Work Phone: C Reactive Protein, Serumon [id number] [Mass/Vol] 1.59 mg/pJHgkiifuoFR-Jlumoogfbxcbj-Huwmelqw B102 Work Phone: [phone] on above:REF VALUE< 1.00Complete Blood Count + Differentialon [id number] (Bld) [#/Vol]0.01 {x10E9/L}See Below LW-Tizbebbbtybzp-Gzovrtva B102 Work Phone: Comment on above:Reference Range: 0.00 - 0.10 Basophils/100 WBC (Bld)0.3 %0.0 - 2.3SX-Xhlwwjegjhoay-Akotwqmk B102 Work Phone: Eosinophils (Bld) [#/Vol]0.07 {x10E9/L}See Below EW-Iszwiiybhelmu-Otnunarm B102 Work Phone: Comment on above:Reference Range: 0.00 - 0.70 Eosinophils/100 WBC (Bld)2.2 %0.0 - 6.5VX-Qlunrhkkjophl-Ndwujcdt B102 Work Phone: Erythrocyte distribution width (RBC) [Ratio]13.7 %See TjkptIZ-Vikzivsckiagm-Zmdoaust B102 Work Phone: Comment on above:Reference Range: 11.5 - 14.5 Hematocrit (Bld) [Volume fraction]38.8 %below low thresholdSee Below ZC-Vefxmvmzcjoza-Yeouplsb B102 Work Phone: Comment on above:Reference Range: 41.0 - 52.0 Hemoglobin (Bld) [Mass/Vol]12.4 g/dLbelow low thresholdSee Below DG-Razaqhbshdbre-Jfvutllg B102 Work Phone: Comment on above:Reference Range: 13.5 - 17.5 Lymphocytes (Bld) [#/Vol]0.89 {x10E9/L}below low thresholdSee Below XF-Dxffhzamethvv-Jqbvmcas B102 Work Phone: Comment on above:Reference Range: 1.20 - 4.80 Lymphocytes/100 WBC (Bld)27.7 %See DxnxvOV-Zmzjmpqvcazbj-Jcqzafgt B102 Work Phone: Comment on above:Reference Range: 13.0 - 44.0MCHC (RBC) [Mass/Vol]32.0 g/dLSee ZbrpzME-Lqcabfthaqrtj-Vansfcgu B102 Work Phone: Comment on above:Reference Range: 32.0 - 36.0MCV (RBC) [Entitic vol]93 fL80 - 348DF-Wrwausvruztpr-Mrtxfhzu B102 Work Phone: Monocytes (Bld) [#/Vol]0.37 {x10E9/L}See Below TY-Psntqssoneuqj-Ztueyhgh B102 Work Phone: Comment on above:Reference Range: 0.10 - 1.00 Monocytes/100 WBC (Bld)11.5 %2.0 - 10.7MB-Iqkqwbtmdemub-Ssxnifee B102 Work Phone: Neutrophils (Bld) [#/Vol]1.86 {x10E9/L}See Below RS-Nxzrubauzxvse-Pjcwhcpz B102 Work Phone: Comment on above:Reference Range: 1.20 - 7.70 Neutrophils/100 WBC (Bld)58.0 %See UfndsFO-Xjqbnyjpezfuy-Nbzkrwbe B102 Work Phone: Comment on above:Reference Range: 40.0 - 80.0Platelets (Bld) [#/Vol]60 {x10E9/L}below low ghtohzydn979 - 732WT-Vaxtysqczqgst-Xiddyysw B102 Work Phone: RBC (Bld) [#/Vol]4.18 {x10E12/L}below low thresholdSee HkfqyKS-Hypjmcmlukftp-Pzxodqmr B102 Work Phone: Comment on above:Reference Range: 4.50 - 5.90WBC (Bld) [#/Vol]3.2 {x10E9/L}below low threshold4.4 - 11.5WW-Ggwawehvqvlrv-Ffhyivql B102 Work Phone: [phone] Blood Count + Differential0.3 %0.0 - 0.9 CW-Egsczlriwqwgm-Fvyeraqe B102 Work Phone: Comment on above:Percent differential counts (%) should be interpreted in the context of the absolute cell counts (cells/L). Ferritin, Serumon 31-81-4692Nswodbeo [Mass/Vol]667 ug/Labove high xazcycpll93 - 069OA-Qmxduusmslerj-Ezixjigo B102 Work Phone: [phone] Assayon 05-02-7623Iokkbasuci Adkni344 mg/dL above high kquqlvzhf870 - 687HX-Cuxgztjerwqxm-Ruwhwxfm B102 Work Phone: [phone] 13-96-0636eGSH Coag (PPP) [Time]25 {sec} below low kidcvxhuu73 - 48PF-Gpoblzryawgfk-Faeblmth B102 Work Phone: Comment on above:THE APTT IS NO LONGER USED FOR MONITORING UNFRACTIONATED HEPARIN THERAPY. FOR MONITORING HEPARIN THERAPY, USE THE HEPARIN ASSAY.INR Coag (PPP) [Relative time]1.0 {INR}0.9 - 1.1 FD-Efiexlpbywuty-Dlseyaes B102 Work Phone: [phone] Coag (PPP) [Time]11.0 {sec}9.7 - 12.7 MQ-Uoxnzxubzllzj-Faairpev B102 Work Phone: [phone] G Level, Serumon 35-23-0778EdY [Mass/Vol]487 mg/dLbelow low grtgwkfta639 - 4103KO-Cnvplasbnuuor-Xiygjucq B102 Work Phone: Comment on above:MONOCLONAL PROTEINS MAY CAUSE FALSELY LOWRESULTS IN THIS ASSAY. SERUM PROTEINELECTROPHORESIS SHOULDBE DONE THEFIRST TEST TO EVALUATE MONOCLONAL GAMMOPATHY.Magnesium, Serumon 04-02-2019 Magnesium [Mass/Vol]2.39 mg/dLSee WuvjvCL-Wxlywbmwctlub-Lhayruqq B102 Work Phone: Comment on above:Reference Range: 1.60 - 2.40Metabolic Panelon 54-99-7872XOR [Catalytic activity/Vol]327 U/Labove high udmerpfed81 - 547CM-Ypbidudqixzqo-Valtegsj B102 Work Phone: Anion gap [Moles/Vol]14 mmol/L10 - 20 DB-Ktnilselgwahg-Dwwhrbii B102 Work Phone: Bilirubin [Mass/Vol]0.7 mg/dL0.0 - 1.2 LI-Heorjdlufrqsu-Kkwnwnwr B102 Work Phone: Calcium [Mass/Vol]9.6 mg/dL8.6 - 10.6 NJ-Qcztpykcattbg-Cwatyenx B102 Work Phone: Chloride [Moles/Vol]106 mmol/L98 - 107 AZ-Pjmsydfrmaryl-Yxsahmbf B102 Work Phone: OH8 [Moles/Vol]25 mmol/L21 - 32 ER-Yugifzdoqrgxh-Wzhoymyo B102 Work Phone: Creatinine [Mass/Vol]1.50 mg/dLabove high thresholdSee GopadYT-Foruugmpkqyaf-Ingzzupf B102 Work Phone: Comment on above:Reference Range: 0.50 - 1.30Glucose [Mass/Vol]94 mg/dL74 - 35TM-Wivgumcqfsbsl-Onokbvmz B102 Work Phone: LDH [Catalytic activity/Vol]161 U/L84 - 246 QA-Olvgycussvhml-Igaqsdip B102 Work Phone: Potassium [Moles/Vol]4.6 mmol/L3.5 - 5.3 ZX-Kkwelinpivtvr-Amczdwis B102 Work Phone: Protein [Mass/Vol]6.2 g/dLbelow low threshold6.4 - 8.2 MC-Jpjhuwnxgwgas-Qevmuply B102 Work Phone: Sodium [Moles/Vol]140 mmol/L136 - 145 VP-Wpxniktmwjffz-Bhxqydak B102 Work Phone: Urea nitrogen [Mass/Vol]22 mg/dL6 - 23 HI-Ityfqwhlzxafg-Ncdkjoli B102 Work Phone: Glucose [Mass/Vol]92 mg/dL74 - 99 ST-Yytocadusfgcs-Ycwzldqt B102 Work Phone: Otheron 90-04-2200Ggelrvpqszr by: ZARA AHMADI04/02/19 13:04MRN: [id number] Name: KATERINA DANIELLE STUDY:PET/CT LYMPHOMA STAGING; 04/02/2019 11:47 am INDICATION:90 day s/p CAR T infusion. Evaluate for diseaseresponse. NHL. S/pCAR T Cell therapy. Day 60 scan. 58-year-old male with non-Hodgkin'slymphoma, initially diagnosed in the right sphenoid as diffuse largeB- ell lymphoma in 2015 treated with 4 cyclesof hyper- CVAD.Recurrence in 10/2017 in the left kidney, started on clinical trialCASE 2415 (Venetoclax + RICE). Patient developed further recurrencein 08/2018, reated with CAR T-cell infusion (tisagenlecleucel) withpreparative regimen of fludarabine and Cytoxan on 01/04/2019 COMPARISON:PET-CT dated03/05/2019 ORDERING CLINICIAN:LETICIA SALEEM TECHNIQUE:DIVISION OF NUCLEAR MEDICINEPOSITRON EMISSION TOMOGRAPHY (PET-CT) The patient received an intravenous dose of 14.8 mCiof Fluorine-18fluorodeoxyglucose (FDG). Positron emission tomographic (PET) imagesfrom mid-thigh tosktemple[facility] base were then acquired after a one hourdelay. Also acquired was a contemporaneous low dose non-contrast CTscan performed for attenuation correction of PET images and anatomiclocalization. The PET and CT images were digitally fused fordisplay. All images were acquired on a combined PET-CT scanner unit.Some areas of FDG accumulation may be described in standardizeduptake value (SUV) units. CO DING:Subsequent Treatment Strategy (PS) CALIBRATION:Dose Dwirmkqhf-pj-Zsbn Interval (mins): 105 minMediastinal bloodpool SUV (normal 1.5-2.5): 1.5Blood glucose: 92 mg/dL FINDINGS:NECK:No focal hypermetabolic soft tissue lesion is seen in the neck.No hypermetabolic cervical lymphadenopathy is present. CHEST:No focal hypermetabolic lesion is seen in the lung parenchyma.No evidence of hypermetabolicmediastinal, hilar or axillarylymphadenopathy. ABDOMEN AND PELVIS:No hypermetabolic soft tissue lesion is present in the abdomen andpelvis.No evidence of hypermetabolic lymphadenopathy.Physiologic radiotracer uptake is present in the liver and spleenwith excretion into the bowel loops and the genitourinary tract.The previously noted mild perisplenic hypermetabolic activity, seemsto be continuous with the splenic tissue and again demonstrates milduptake, likely representing splenic tissue. MUSCULOSKELETAL:There is no focal hypermetabolic lesion to suggest osseous metastasis. IMPRESSION:1. No de finite evidence of focal hypermetabolic activity throughoutthe body to suggest recurrent or residual malignancy. I personally reviewed the image(s) / study and agree with thefindings and interpretation as stated. [facility] Electronically signed by: ZARA AHMADI 04/02/19 13:63CkqcjiOH-Ckjlcwrtbyqtv-Ufjdemaz B102 Work Phone: Albumin BCP dye [Mass/Vol]4.1 g/dL3.4 - 5.0 EI-Ebukmmskuisxb-Udvsmphk B102 Work Phone: ALT With P-5'-P [Catalytic activity/Vol]34 U/L10 - 52 OG-Wqhvnhpvwlxxu-Vbvyrbhc B102 Work Phone: [phone] on above:Patients treated with Sulfasalazine may generate falsely decreased results for ALT.AST With P-5'-P [Catalytic activity/Vol]24 U/L9 - 83KQ-Ragzwezbtzgtd-Swogptdg B102 Work Phone: [phone] {mL/min/1.73m2}Abnormal>01VR-Zubokfladmyxg-Ylfaprik B102 Work Phone: [phone] {mL/min/1.73m2}Abnormal>55WT-Vhgguewaxqpta-Kvbdeupg B102 Work Phone: [phone] on above:CALCULATIONS OF ESTIMATED GFR ARE PERFORMED USING THE MDRD STUDY EQUATION FOR THE IDMS-TRACEABLE CREATININE METHODS. CLIN CHEM 2007;53:766-72Uric Acid, Serumon 67-80-5207Efilw [Mass/Vol] 5.9 mg/dL4.0 - 7.0LW-Gwhvtlmshnamq-Vfonbkkt B102 Work Phone: [phone] on above:Venipuncture immediately after or during the administration of Metamizole may lead to falsely low results. Testing should be performed immediately prior to Metamizole dosing.Vitamin B12, Serumon 06-37-8785Sijehxbmn (Vitamin B12) [Mass/Vol]362 pg/mL211 - 911 NV-Swjxdjwzvcgxx-Wvfhazlg B102 Work Phone: [phone] Reactive Protein, Serumon 42-79-5664VFR [Mass/Vol] 0.82 mg/nWCC-Pdlzilylftilm-Ayunqfsw B102 Work Phone: [phone] on above:REF VALUE< 1.00Complete Blood Count + Differentialon 85-61-7766Icouesfhb (Bld) [#/Vol]0.01 {x10E9/L}See Below XN-Fulbfkcjzzarr-Mphyvusc B102 Work Phone: [phone] on above:Reference Range: 0.00 - 0.10 Basophils/100 WBC (Bld)0.4 %0.0 - 2.0TV-Lyibeczcrfzam-Zlgmcyjj B102 Work Phone: [phone] (Bld) [#/Vol]0.06 {x10E9/L}See Below AE-Huulxhvqotjyt-Hzoouazg B102 Work Phone: [phone] on above:Reference Range: 0.00 - 0.70 Eosinophils/100 WBC (Bld)2.3 %0.0 - 6.4ZZ-Rgsmnuczkxzre-Ndnhxhfr B102 Work Phone: [phone] distribution width (RBC) [Ratio]14.9 % above high thresholdSee TeoeeMK-Nlqfdtminkjzd-Onkmylsr B102 Work Phone: [phone] on above:Reference Range: 11.5 - 14.5 Hematocrit (Bld) [Volume fraction]37.4 %below low thresholdSee Below TS-Yqnvhmjfamddg-Cjipvfhg B102 Work Phone: Comment on above:Reference Range: 41.0 - 52.0 Hemoglobin (Bld) [Mass/Vol]11.9 g/dLbelow low thresholdSee Below WE-Enrbocrdhhwnl-Tdjumvgm B102 Work Phone: Comment on above:Reference Range: 13.5 - 17.5 Lymphocytes (Bld) [#/Vol]0.78 {x10E9/L}below low thresholdSee Below HB-Edabxdjdvwzqi-Apxhcfvr B102 Work Phone: Comment on above:Reference Range: 1.20 - 4.80 Lymphocytes/100 WBC (Bld)30.2 %See SyqdnWP-Cltjpfyqjtomx-Xkvkjrgz B102 Work Phone: Comment on above:Reference Range: 13.0 - 44.0MCHC (RBC) [Mass/Vol]31.8 g/dLbelow low thresholdSee CsuieWH-Mgwhndkfngacf-Ixxjtvel B102 Work Phone: Comment on above:Reference Range: 32.0 - 36.0MCV (RBC) [Entitic vol]95 fL80 - 877GJ-Sgbphvsrcafyz-Zqmbwbul B102 Work Phone: Monocytes (Bld) [#/Vol]0.33 {x10E9/L}See Below ME-Xzcvaozqwefbn-Lnhjqilo B102 Work Phone: Comment on above:Reference Range: 0.10 - 1.00 Monocytes/100 WBC (Bld)12.8 %2.0 - 10.8SW-Zuxffpwqjacxk-Xhjvcfop B102 Work Phone: Neutrophils (Bld) [#/Vol]1.38 {x10E9/L}See Below WA-Cywbjktgexrce-Boznddvx B102 Work Phone: Comment on above:Reference Range: 1.20 - 7.70 Neutrophils/100 WBC (Bld)53.5 %See FmhjyWC-Nnwwaougnjkeu-Qgycqxao B102 Work Phone: Comment on above:Reference Range: 40.0 - 80.0Platelets (Bld) [#/Vol]54 {x10E9/L}below low hooobmcnk424 - 634OY-Gjqmgwnyffvrf-Hzzhyrsc B102 Work Phone: RBC (Bld) [#/Vol]3.95 {x10E12/L}below low thresholdSee AffliDK-Jkmeqywzdwnma-Mbpxppre B102 Work Phone: Comment on above:Reference Range: 4.50 - 5.90WBC (Bld) [#/Vol]2.6 {x10E9/L}below low threshold4.4 - 11.6DU-Aoripdllpntdk-Lxijeyji B102 Work Phone: Complete Blood Count + Differential0.8 %0.0 - 0.9 TB-Wdmxkrsmvdvnt-Nccvtjuy B102 Work Phone: Comment on above:Percent differential counts (%) should be interpreted in the context of the absolute cell counts (cells/L). Ferritin, Serumon 88-04-0693Niupcelf [Mass/Vol]569 ug/Labove high ctaquxidx66 - 368AG-Mfsfjyjycohom-Yjypajgt B102 Work Phone: [phone] Assayon 45-78-4190Fmbgrllars Xnnbi906 mg/dL 200 - 010BC-Pfumfvajrkfvn-Kenhwprk B102 Work Phone: [phone] 97-71-2230oXRN Coag (PPP) [Time]31 {sec} 28 - 74AU-Aqvxzgklkldga-Gyiceawo B102 Work Phone: Comment on above:THE APTT IS NO LONGER USED FOR MONITORING UNFRACTIONATED HEPARIN THERAPY. FOR MONITORING HEPARIN THERAPY, USE THE HEPARIN ASSAY.INR Coag (PPP) [Relative time]1.0 {INR}0.9 - 1.1 PP-Jddvlbrteielx-Ilgorvcb B102 Work Phone: PT Coag (PPP) [Time]11.0 {sec}9.7 - 12.7 QN-Msndymbncidpj-Ovbgsnuw B102 Work Phone: Immunoglobulin G Level, Serumon 70-92-9505MeT [Mass/Vol]263 mg/dLbelow low nqdhdimop233 - 5600WN-Riioruptwlaqr-Uupjdgzc B102 Work Phone: Comment on above:MONOCLONAL PROTEINS MAY CAUSE FALSELY LOWRESULTS IN THIS ASSAY. SERUM PROTEINELECTROPHORESIS SHOULDBE DONE THEFIRST TEST TO EVALUATE MONOCLONAL GAMMOPATHY.Magnesium, Serumon 03-19-2019 Magnesium [Mass/Vol]2.32 mg/dLSee ZjaccRI-Vahderbogktrv-Hzdndxwb B102 Work Phone: Comment on above:Reference Range: 1.60 - 2.40Metabolic Panelon 18-74-4508EWG [Catalytic activity/Vol]359 U/Labove high - 640AG-Pdtpuflszuqac-Evoxjskf B102 Work Phone: Anion gap [Moles/Vol]13 mmol/L10 - 20 UU-Thomakhhrizof-Bctswlqk B102 Work Phone: Bilirubin [Mass/Vol]0.6 mg/dL0.0 - 1.2 PR-Jxsmxgappowrj-Tnckujrb B102 Work Phone: Calcium [Mass/Vol]9.7 mg/dL8.6 - 10.6 AJ-Mjtdqbnbmiwic-Tnjcecrf B102 Work Phone: Chloride [Moles/Vol]107 mmol/L98 - 107 WQ-Raiimynzumggk-Hakvvgfk B102 Work Phone: XC8 [Moles/Vol]24 mmol/L21 - 32 JQ-Pyhnbhflrdrag-Rxapovtd B102 Work Phone: Creatinine [Mass/Vol]1.49 mg/dLabove high thresholdSee HaxbmZT-Tgsxzeuemrjfl-Xdqijpkr B102 Work Phone: Comment on above:Reference Range: 0.50 - 1.30Glucose [Mass/Vol]107 mg/dLabove high kcsxmvhup45 - 23GB-Fzvmiylnbqidb-Ureebohq B102 Work Phone: LDH [Catalytic activity/Vol]171 U/L84 - 246 BI-Prbytpychvqdm-Bbvwzqtx B102 Work Phone: Potassium [Moles/Vol]4.2 mmol/L3.5 - 5.3 PQ-Tfkgqwugtkfxn-Hyppkszm B102 Work Phone: Protein [Mass/Vol]5.7 g/dLbelow low threshold6.4 - 8.2 RX-Xogicmgrvifbi-Ogmcdchb B102 Work Phone: [phone] [Moles/Vol]140 mmol/L136 - 145 PK-Elunciokpnoga-Ecljejzf B102 Work Phone: [phone] nitrogen [Mass/Vol]21 mg/dL6 - 23 LL-Ivvxeafvdhdzp-Ooetnvbc B102 Work Phone: [phone] 97-12-5423Dwdzvku BCP dye [Mass/Vol]4.1 g/dL 3.4 - 5.9WG-Vsfagnblpmpdl-Fotpknpp B102 Work Phone: ALT With P-5'-P [Catalytic activity/Vol]48 U/L10 - 52 AG-Mtrszuxocofhh-Ipfvinvd B102 Work Phone: [phone] on above:Patients treated with Sulfasalazine may generate falsely decreased results for ALT.AST With P-5'-P [Catalytic activity/Vol]27 U/L9 - 37UV-Hcupmpjrcaboo-Hnikqcli B102 Work Phone: [phone] {mL/min/1.73m2}Abnormal>49DD-Urgkeqzftzpsx-Bplfbyoh B102 Work Phone: [phone] {mL/min/1.73m2}Abnormal>90UN-Bfymjrncieycp-Jtttqlsl B102 Work Phone: [phone] on above:CALCULATIONS OF ESTIMATED GFR ARE PERFORMED USING THE MDRD STUDY EQUATION FOR THE IDMS-TRACEABLE CREATININE METHODS. CLIN CHEM 2007;53:766-72Thyroidon 34-35-6728BJW Qn0.78 {mIU/L}See Below TW-Qrpkehxyxydqc-Ggyuptco B102 Work Phone: [phone] on above:Reference Range: 0.44 - 3.98 TSH testing is performed using different testing methodology at [facility] than at other [facility]. Direct result comparisons should only be made within the same method.. Patients receiving more than 5 mg/day of biotin may have interference in test results. A sample should be taken no sooner than eight hours after previous dose. Contact [phone] for additional information.Uric Acid, Serumon 81-33-2546Hrpno [Mass/Vol]5.5 mg/dL4.0 - 7.5 SL-Qierlnmypkrot-Ajpmgtao B102 Work Phone: Comment on above:Venipuncture immediately after or during the administration of Metamizole may lead to falsely low results. Testing should be performed immediately prior to Metamizole dosing. Vital Signs Date TimeVital SignValuePerforming MbzpxdozpPqlefoya59-00-6169 08:58-0400Body ifywzs529.9 Ty Farias MD Work Phone: [phone] [place], [place] [address]Nkgwteirwn93-57-4490 08:58-0400Body mass index (BMI) [Ratio]37.03 kg/n9ZhgqczNael Farias MD Work Phone: [phone] [place], [place] [address]Ulzyezyvhu91-63-2086 08:58-0400Body .83 kgNael Farias MD Work Phone: [phone] [place], [place] [address]Vviwkxposf60-21-9812 08:58-0400Heart rate84 /min Nael Farias MD Work Phone: [phone] [place], [place] [address]Daorcxicax63-31-3661 08:58-9085HdK2% (BldA) [Mass fraction]94 %Nael Farias MD Work Phone: [phone]09-08-2025 13:45-0400Body escpyn779.9 Ty Farias MD Work Phone: [phone] [place], [place] [address]Vpbrfodwet96-86-0805 13:45-0400Body mass index (BMI) [Ratio]37.03 kg/e5BbsqrgNael Farias MD Work Phone: [phone] [address]-08-2025 13:45-0400Body .83 kgNael Farias MD Work Phone: [phone] [place], [place] [address]Plcjqkwsnv50-84-3750 10:53-0400Body dajhev790.9 Ty Farias MD Work Phone: [phone]06-24-2025 10:53-0400Body mass index (BMI) [Ratio]35.94 kg/f9MjcfwtNael Farias MD Work Phone: [phone]06-24-2025 10:53-0400Body .2 kgNael Farias MD Work Phone: [facility]4100 10:53-0400Heart tkbp202 /min Nael Farias MD Work Phone: [facility] HospitalRpzgyxwzcn93-61-3152 10:53-3636EpW5% (BldA) [Mass fraction]98 %Nael Farias MD Work Phone: [facility] HospitalDxxbrzjlqa90-65-5223 11:04-0400Body kukuzj184.9 cmAslick Watkins MD Work Phone: [phone]06-19-2025 11:04-0400 Body mass index (BMI) [Ratio]36.67 kg/q8KkqamChristopher Watkins MD Work Phone: [phone]06-19-2025 11:04-0400 Body brnuol738.65 kgChristopher Watkins MD Work Phone: [phone] [place], [place] 3986706-19-2025 11:04-0400 Diastolic blood oxidficm22 mm[Hg]Christopher Watkins MD Work Phone: [phone] [place], [place] 3986706-19-2025 11:04-0400 Heart qeij643 /minChristopher Watkins MD Work Phone: [phone] [place], [place] 3986706-19-2025 11:04-0400 Systolic blood djapzogf608 mm[Hg]Christopher Watkins MD Work Phone: [address] [place], [place] 7213206-12-2025 08:50-0400 Body mass index (BMI) [Ratio]36.93 kg/m2Anirudh Sears MD Work Phone: [facility]06-12-2025 08:50-0400 Body gbbeqzxezkd23.5 [degF]Anirudh Sears MD Work Phone: [facility]06-12-2025 08:50-0400 Body kwwhku224.5 kgAnirudh Sears MD Work Phone: [phone] [place], [place] 2854406-12-2025 08:50-0400 Diastolic blood cslbtnoi87 mm[Hg]Anirudh Sears MD Work Phone: [phone] [place], [place] 2854406-12-2025 08:50-0400 Heart rate90 /Alin Sears MD Work Phone: [phone] [place], [place] 2854406-12-2025 08:50-0400 Respiratory rate16 /minAnirudh Sears MD Work Phone: [phone] [place], [place] 2854406-12-2025 08:50-0400 SaO2% (BldA) [Mass fraction]95 %Anirudh Sears MD Work Phone: [phone] [place], [place] 2854406-12-2025 08:50-0400 Systolic blood mm[Hg]Anirudh Sears MD Work Phone: [phone] [place], [place] 2854405-05-2025 10:34-0400 Body urmttc047.9 cmDaburton Cole MD Work Phone: [phone] [place], [place] 3789005-05-2025 10:34-0400 Body mass index (BMI) [Ratio]36.75 kg/m2Daburton Cole MD Work Phone: [phone] [place], [place] 3789005-05-2025 10:34-0400 Body futxxu446.92 kgDaburton Cole MD Work Phone: [phone] [place], [place] 3789005-05-2025 10:34-0400 Diastolic blood hdrsykzm25 mm[Hg]Sandra Cole MD Work Phone: [phone] [place], [place] 3789005-05-2025 10:34-0400 Systolic blood zuiihccx655 mm[Hg]Sandra Cole MD Work Phone: [phone] [place], [place] 3789003-06-2025 09:29-0500 Body .9 Ty Farias MD Work Phone: [facility] HospitalBryhgivddp39-40-3560 09:29-0500Body mass index (BMI) [Ratio]37.03 kg/n5ZuckvkNael Farias MD Work Phone: [facility] HospitalIzzgzafwlv82-27-8397 09:29-0500Body zdncxu296.83 kgNael Farias MD Work Phone: [facility] HospitalTkkdbhetow49-33-9163 09:29-0500Diastolic blood xqgpzoyb64 mm[Hg]Nael Farias MD Work Phone: [facility] HospitalEsakwtisrr43-50-9749 09:29-0500Heart rate92 /min Nael Farias MD Work Phone: [facility] HospitalYzueipmwtx39-58-9260 09:29-9298UrV7% (BldA) [Mass fraction]95 %Nael Farias MD Work Phone: [facility] HospitalPzufahlrvk74-12-2678 09:29-0500Systolic blood xjxirdwr730 mm[Hg]Nael Farias MD Work Phone: [facility] HospitalIkrbcftsgm68-39-6992 14:35-0500Diastolic blood lcfuxpzg13 mm[Hg]Christopher Watkins MD Work Phone: [facility]02-18-2025 14:35-0500 Heart rate72 /minChristopher Watkins MD Work Phone: [phone]02-18-2025 14:35-0500 Systolic blood byfdcbma817 mm[Hg]Christopher Watkins MD Work Phone: [phone] [place], [place] 3986702-18-2025 14:24-0500 Body ozopbo212.9 cmAslick Watkins MD Work Phone: [phone]02-18-2025 14:24-0500 Body mass index (BMI) [Ratio]37.08 kg/w9GqhjjChristopher Watkins MD Work Phone: [facility]02-18-2025 14:24-0500 Body aegyup639.01 kgChristopher Watkins MD Work Phone: [facility]12-23-2024 09:50-0500 Body .9 cmEалександр Farias MD Work Phone: [facility] HospitalWekzfrbsee65-13-2106 09:50-0500Body mass index (BMI) [Ratio]35.8 kg/k3SgwhgfNael Farias MD Work Phone: [facility] [id number] 09:50-0500Body wzlehg112.75 kgNael Farias MD Work Phone: [id number] 09:50-0500Heart rate66 /min Nael Farias MD Work Phone: [facility] HospitalTcjnrljtjg33-07-7540 09:50-6602OtU0% (BldA) [Mass fraction]97 %Nael Farias MD Work Phone: [facility] HospitalWejjxtxqln46-80-3245 10:24-0500Body mass index (BMI) [Ratio]36.15 kg/m2Anirudh Sears MD Work Phone: [phone])320-[facility]12-16-2024 10:24-0500 Body .1 [degF]Anirudh Sears MD Work Phone: [phone])[address]12-16-2024 10:24-0500 Body yplwgd206.9 kgAnirudh Sears MD Work Phone: [phone]12-16-2024 10:24-0500 Diastolic blood unkoamip92 mm[Hg]Anirudh Sears MD Work Phone: [phone])696-[facility]12-16-2024 10:24-0500 Heart rate68 /minAniruhd Sears MD Work Phone: [phone])[address]12-16-2024 10:24-0500 Respiratory rate18 /minAnirudh Sears MD Work Phone: [phone]12-16-2024 10:24-0500 SaO2% (BldA) [Mass fraction]94 %Anirudh Sears MD Work Phone: [facility]12-16-2024 10:24-0500 Systolic blood uypezwmb020 mm[Hg]Anirudh Sears MD Work Phone: [facility]11-04-2024 10:16-0500 Body qsmyvy214.9 cmDawfelicia Cole MD Work Phone: [facility]11-04-2024 10:16-0500 Body mass index (BMI) [Ratio]36.89 kg/m2Dawfelicia Cole MD Work Phone: [facility]11-04-2024 10:16-0500 Body nslibc451.38 kgDawfelicia Cole MD Work Phone: [facility]10-16-2024 14:19-0400 Body gotwis570.74 kgMD Nael Farias Work Phone: 1(275)865-[address] [place], [place] 1951210-16-2024 14:19-0400 Diastolic blood nesefkus74 mm[Hg]MD Nael Farias Work Phone: 1(215)138-[address] [place], [place] 1951210-16-2024 14:19-0400 Heart rate69 /minMD Nael Farias Work Phone: [phone]10-16-2024 14:19-0400 SaO2% (BldA) [Mass fraction]97 %MD Nael Farias Work Phone: [phone])506-[address] [place], [place] 1951210-16-2024 14:19-0400 Systolic blood dhwfbfmy005 mm[Hg]MD Nael Farias Work Phone: 1(858)459-[address] [place], [place] 6101210-11-2024 10:11-0400 Body juelel711.9 Sukhdeep Watkins MD Work Phone: [facility]10-11-2024 10:11-0400 Body mass index (BMI) [Ratio]35.8 kg/j6JiqscChristopher Watkins MD Work Phone: [facility]10-11-2024 10:11-0400 Body .75 kgChristopher Watkins MD Work Phone: [facility]10-11-2024 10:11-0400 Diastolic blood qbnhqtny14 mm[Hg]Christopher Watkins MD Work Phone: [facility]10-11-2024 10:11-0400 Heart rate67 /minChristopher Watkins MD Work Phone: [facility]10-11-2024 10:11-0400 Systolic blood crvygybh554 mm[Hg]Christopher Watkins MD Work Phone: [facility]09-24-2024 09:57-0400 Body ysdddu776.9 cmEалександр Farias MD Work Phone: [facility] [phone] 09:57-0400Body mass index (BMI) [Ratio]35.8 kg/n7VejsheNael Farias MD Work Phone: [facility] [phone] 09:57-0400Body .75 kgNael Farias MD Work Phone: [facility]zb[facility]4648 15:51-0400Body grkuer633.74 kgMD Nael Farias Work Phone: 1(363)473-[address] [place], [place] 1951209-18-2024 15:51-0400 Diastolic blood uqahpqnj73 mm[Hg]MD Nael Farias Work Phone: [facility]09-18-2024 15:51-0400 Heart rate70 /minMD Nael Farias Work Phone: 1(696)357-[address] [place], [place] 1951209-18-2024 15:51-0400 SaO2% (BldA) [Mass fraction]97 %MD Nael Farias Work Phone: 1(007)794-[address] [place], [place] 1951209-18-2024 15:51-0400 Systolic blood bvwtrjij229 mm[Hg]MD Nael Farias Work Phone: 1(084)389-[address] [place], [place] 6101209-09-2024 08:27-0400 Body ykahsa945.9 cmChristdean Morrison DO Work Phone: [facility] HospitalDncjxjoudj39-20-0880 08:27-0400Body mass index (BMI) [Ratio]35.8 kg/c5Pjdjpblxbny Prince DO Work Phone: [facility] HospitalNfvmothadc82-16-1748 08:27-0400Body vvudxi287.75 kgChristopher Prince DO Work Phone: [facility] HospitalMmtnwngfhs25-76-6045 08:27-0400Diastolic blood gmnqdkii24 mm[Hg]Nadeem Morrison DO Work Phone: [facility] HospitalXuxgddnrpm93-35-7138 08:27-0400Heart rate64 /min Christdean Morrison DO Work Phone: [facility] HospitalWruwrqtuid90-23-3711 08:27-1143PeW6% (BldA) [Mass fraction]95 %Christdean Morrison DO Work Phone: [facility] HospitalZdwqmghhur74-64-1347 08:27-0400Systolic blood blqwopcl733 mm[Hg]Nadeem Morrison DO Work Phone: [facility] HospitalIrqxjyscsm84-44-0973 10:39-0400Body mass index (BMI) [Ratio]35.8 kg/m2Sandra Cole MD Work Phone: [facility]05-06-2024 10:39-0400 Body .75 kgSandra Cole MD Work Phone: [facility]05-06-2024 10:39-0400 Heart rate72 /minDbobby Cole MD Work Phone: [facility]05-06-2024 10:39-0400 SaO2% (BldA) [Mass fraction]96 %Sandra Cole MD Work Phone: [facility]04-05-2024 09:53-0400 Body yohdxd984.9 Sukhdeep Watkins MD Work Phone: 1(015)207-[address] [place], [place] 3986704-05-2024 09:53-0400 Body mass index (BMI) [Ratio]35.67 kg/m7KznnuChristopher Watkins MD Work Phone: 1(800)519-[address] [place], [place] 3986704-05-2024 09:53-0400 Body aawtmx330.3 Eloina Watkins MD Work Phone: 1(298)[address]04-05-2024 09:53-0400 Diastolic blood qyenojss97 mm[Hg]Christopher Watkins MD Work Phone: 1(444)[address]04-05-2024 09:53-0400 Heart rate62 /minChristopher Watkins MD Work Phone: 1(360)[address]04-05-2024 09:53-0400 Systolic blood ltcaqpuw269 mm[Hg]Christopher Watkins MD Work Phone: 1(686)042-[address] [place], [place] 3986712-13-2023 11:15-0500 Body mass index (BMI) [Ratio]35.16 kg/m2Anirudh Sears MD Work Phone: 1(895)[address]12-13-2023 11:15-0500 Body fyqjktazlre14.3 [degF]Anirudh Sears MD Work Phone: 1(098)[address] [place], [place] 2854412-13-2023 11:15-0500 Body gmsaiz153.6 kgAnirudh Sears MD Work Phone: 1(983)[address] [place], [place] 3782912-13-2023 11:15-0500 Diastolic blood ejxkgtmm19 mm[Hg]Anirudh Sears MD Work Phone: 1(628)[address] [place], [place] 3976212-13-2023 11:15-0500 Heart rate70 /minAnirudh Sears MD Work Phone: 1(453)[address]12-13-2023 11:15-0500 Respiratory rate16 /minAnirudh Sears MD Work Phone: 1(944)862-[address] [place], [place] 3782912-13-2023 11:15-0500 SaO2% (BldA) [Mass fraction]98 %Anirudh Sears MD Work Phone: [facility]12-13-2023 11:15-0500 Systolic blood fzapcjia784 mm[Hg]Anirudh Sears MD Work Phone: [facility]06-22-2023 13:54-0400 Body .88 cmEалександр Partida Andrea Work Phone: JK-Vopw [facility] Work Phone: 1(670) 366-194106-22-2023 13:54-0400Body mass index (BMI) [Ratio] 35.26 kg/c8Cyjiak J Andrea Work Phone: [facility]cf[facility] Work Phone: 1(493) 313-912106-22-2023 13:54-0400Body surface area Derived from formula2.38 o0NrqqbuNael Brownevelyn Work Phone: YB[facility]unpChildren[facility] Work Phone: 1(473) 849-143106-22-2023 13:54-0400Body wlsoctcugfp75.16 [degF] Nael Partida Andrea Work Phone: WC[facility]rb[facility] Work Phone: 1(618) 187-120306-22-2023 13:54-0400Body xuiitt513.94 kgNael Farias Work Phone: FX-VtyfChildren[facility] Work Phone: 1(438) 181-956806-22-2023 13:54-0400Diastolic blood cfneveyc14 mm[Hg] Nael Brownevelyn Work Phone: KL-Blnd [facility] Work Phone: 1(610) 239-412306-22-2023 13:54-0400Heart rate75 /Mohsen Farias Work Phone: QC-Jvds [facility] Work Phone: 1(625) 996-883906-22-2023 13:54-0400Respiratory rate16 /Mohsen Brownyer Work Phone: 1(378) [phone]-Skst ManagementNorth Valley Health Center Work Phone: 1(890) 853-154406-22-2023 13:54-0199EcG7% (BldA) [Mass fraction]96 % Nael Brownevelyn Work Phone: 1(189) [phone]-Kbfl [facility] Work Phone: 1(935) 602-906006-22-2023 13:54-0400Systolic blood esckaezu904 mm[Hg] Nael Farias Work Phone: 1(733) [phone]-Jzas [facility] Work Phone: 1(170) 109-813805-31-2023 13:51-0400Body lmbyth384.88 Ty Farias Work Phone: 1(722) [phone]-IzgajAnn [place] [address] DO Work Phone: 1(908) 352-142705-31-2023 13:51-0400Body mass index (BMI) [Ratio] 36.08 kg/b3PvtjezNael Farias Work Phone: 1(282) [phone]-EebdxAitkin Hospital 3 DO Work Phone: 1(698) 716-193805-31-2023 13:51-0400Body surface area Derived from formula2.4 f8VcvcxnNael Farias Work Phone: 1(891) [phone]-MgoegAitkin Hospital 3 DO Work Phone: 1(465) 725-798905-31-2023 13:51-0400Body brsfrcyrdyi75.9 [degF]Nael Farias Work Phone: 1(961) [phone]-NfucsAitkin Hospital 3 DO Work Phone: 1(704) 934-107005-31-2023 13:51-0400Body rlzrce437.66 kgNael Farias Work Phone: 1(727) [phone]-LqfprAitkin Hospital 3 DO Work Phone: 1(581) 333-489505-31-2023 13:51-0400Diastolic blood qpyzpjmf32 mm[Hg] Edward J Hemeyer Work Phone: mp774-3922CN-AmzbjSt. [facility] 3 DO Work Phone: 1(236) 401-608005-31-2023 13:51-0400Heart rate72 /Mohsen Partida Stephanieyer Work Phone: mp044-2541TN-SidpcSt. Luke'S Hospital 3 DO Work Phone: 1(166) 933-526105-31-2023 13:51-0400Systolic blood ljawbezl993 mm[Hg] Nael Partida Stephanieyer Work Phone: mp697-9389YJ-DqeztSt. Luke'S Hospital 3 DO Work Phone: 1(772) 847-535004-21-2023 10:45-0400Diastolic blood bzrmiwus93 mm[Hg] Nael Partida Stephanieyer Work Phone: 1(172) [phone]-Xkgnpzdbci-[place] [address]100 DO Work Phone: 1(587) 381-871604-21-2023 10:45-0400Heart rate82 /Mohsen Brownyer Work Phone: 1(114) [phone]-Lxbxavekgh-[place] 2099 DO Work Phone: 1(499) 313-120804-21-2023 10:45-6432TlS9% (BldA) [Mass fraction]98 % Nael Partida Andrea Work Phone: 1(455) [phone]-Ifejcpppdi-[place] [address] DO Work Phone: 1(422) 402-559404-21-2023 10:45-0400Systolic blood vsdflfiy263 mm[Hg] Nael Brownevelyn Work Phone: 1(432) [phone]-Xnkkhwajcg-[place] [address]99 DO Work Phone: 1(746) 218-145604-29-2022 10:15-0400Body kohkdr799.88 cmEалександр Partida Stephanieyer Work Phone: mp992-7900AC-Qxirbcejde-[place] 2099 DO Work Phone: 1(559) 130-220904-29-2022 10:15-0400Body mass index (BMI) [Ratio] 36.21 kg/s9DnxsprNael Brownevelyn Work Phone: 1(723) [phone]-Bnkwhoynex-[place] 2100 DO Work Phone: 1(893) 674-972204-29-2022 10:15-0400Body surface area Derived from formula2.41 x5Rfwqpp Jaquan Farias Work Phone: mp203-1309SL-Dqommaiact-[place] [address] DO Work Phone: 1(852) 558-784704-29-2022 10:15-0400Body atgjhj640.11 kgEdscott Jaquan Farias Work Phone: 1(719) [phone]-KpptfqnchjMerit Health Bilox[facility] 2099 DO Work Phone: 1(855) 941-253304-29-2022 10:15-0400Diastolic blood azcsvixp50 mm[Hg] Moizscott Brownevelyn Work Phone: mp558-1569KR-Mkgztnufoy-[place] 2099 DO Work Phone: 1(382) 372-181004-29-2022 10:15-0400Systolic blood lertgyee560 mm[Hg] Nael Brownevelyn Work Phone: 1(370) [phone]-PkqbdmketxMerit Health [facility] 2099 DO Work Phone: 1(979) 507-988903-10-2022 10:18-0500Body ptszah962.88 cmEdscott Jaquan Farias Work Phone: mp247-3010YC-RhaxfC[facility] 3 DO Work Phone: 1(824) 523-367803-10-2022 10:18-0500Body mass index (BMI) [Ratio] 36.48 kg/n2EstvztNael Brownevelyn Work Phone: mp203-7114UT-BpsvvSt. Luke'S Hospital 3 DO Work Phone: 1(308) 637-672903-10-2022 10:18-0500Body surface area Derived from formula2.42 v9LvdptzNael Brownevelyn Work Phone: mp952-6260MB-KwmdfC[facility] 3 DO Work Phone: 1(337) 622-315703-10-2022 10:18-0500Body ogcsyneclsd02 [degF]Nael Farias Work Phone: 1(856) [phone]-ZnbmmCannon Falls Hospital [facility] 3 DO Work Phone: 1(745) 785-786703-10-2022 10:18-0500Body .02 kgNael Farias Work Phone: mp907-2400AG-RpmkzSt. Luke'S Hospital 3 DO Work Phone: 1(792) 629-865503-10-2022 10:18-0500Diastolic blood rxxjajsq62 mm[Hg] Nael Farias Work Phone: 1(357) [phone]-CjdohSt. Luke'S Hospital 3 DO Work Phone: 1(551) 450-186103-10-2022 10:18-0500Heart rate72 /minEалександр Farias Work Phone: mp232-1440CU-GmynfCannon Falls Hospital [facility] Clinic 3 DO Work Phone: 1(962) 441-412903-10-2022 10:180500Systolic blood egssvgau981 mm[Hg] Nael Farias Work Phone: mp528-2289KT-KgoupCannon Falls Hospital And Clinic 3 DO Work Phone: 1(922) 552-854009-20-2021 11:28-0400Body octokt359.88 cmEdscott Farias Work Phone: 1(813) [phone]-Dmntzqxpdn-[place] 2099 DO Work Phone: 1(651) 948-878309-20-2021 11:28-0400Body mass index (BMI) [Ratio]35.8 kg/b1GyvlcsNael Farias Work Phone: 1(163) [phone]-Rurpxbdrbw-[place] [address]99 DO Work Phone: 1(700) 950-890209-20-2021 11:28-0400Body surface area Derived from formula2.4 f0DytbfcNael Farias Work Phone: 1(779) [phone]-Ylergcfvyr-[place] [address] DO Work Phone: 1(341) 936-162309-20-2021 11:28-0400Body adojrj996.75 kgNael Farias Work Phone: 1(708) [phone]-Uzomcvghhj-[place] 2100 DO Work Phone: 1(960) 167-819109-20-2021 11:28-0400Diastolic blood diioowox35 mm[Hg] Nael Farias Work Phone: mp627-9802PT-Vndzlyjvgl-[place] [address]99 DO Work Phone: 1(627) 346-287709-20-2021 11:28-0400Systolic blood bhaezwzd430 mm[Hg] Nael Farias Work Phone: mp576-1326QQ-Znkpjwztgj-[place] [address]99 DO Work Phone: 1(919) 646-902512-02-2019 12:54-0500BMI (Body Mass Index)32.98 kg/m2 Christopher KzrhnpoQV-Vfjjiomvb-Bbdaydu Work Phone: 1(251)140-786898-727803-00517895-56-2944 12:54-0500Body Alifpgufcrn86.62 [degF]Christopher XftpulyUV-Arwbeplix-Utaaldf Work Phone: 1(090)719-064062-729678-32856589-53-2733 12:54-0500Body dmryes586.31 kgArash Roland EA-Jsmnmtpfx-Jonynng Work Phone: 1(494)748-392227-48 12:54-0500BP Eezmgdvxd74 mm[Hg]Christopher KzamsynDO-Guptmjmrl-Bxrnqsj Work Phone: 1(490)738-642-079288-45 12:54-0500BP Knqiuadi544 mm[Hg]Christopher KsvhlueKA-Bieqbexvg-Dkfyppq Work Phone: 1(899)675-926-863084-34 12:54-0500BSA (Body Surface Area)2.31 m2 Christopher WzvomafQU-Waaadldhd-Mtwbvzd Work Phone: 1(742)057-836737-78 12:54-6535Rwkvxd959.88 cmArash Roland NM-Loggodjhy-Iznnnwl Work Phone: 1(323)143-924-117315-30 12:54-0500Pulse (Heart Rate)79 /minArash BrjqgelEZ-Mcwliyafe-Tzdnhei Work Phone: 1(587)790-742-948410-95 12:54-0500Pulse Msqxstbp726 %Christopher Roland YU-Hjlajszcy-Lcemhag Work Phone: 1(143)516-513659-796440-19342420-45-1499 12:54-0500Respiratory Rate16 /minArash ZjfrxwyTS-Vtgkzopko-Ekpukbu Work Phone: 1(898)706-186-928524-24 12:54-63619 1Arash Roland VK-Gejlpjlky-Iezahis Work Phone: Comment on above:Pain Acmug97-93-4559 11:44-0500BMI (Body Mass Index)33.12 kg/b6Tnost BsdvofqJG-Hxfwnwrrj-Nlbenns Work Phone: 1216) 11:44-0500Body Jgmccmhinah61.3 [degF]Christopher DnfuimgWK-Ntttfqziv-Fzjpjwy Work Phone: 1216) 11:44-0500Body vbhija252.76 kgArash Roland BX-Rbzklplnd-Pcfdbjw Work Phone: 1216 11:44-0500BP Xbrxbghtq22 mm[Hg]Christopher RuzrmqxGK-Ultijgnew-Vrzhpui Work Phone: 1216 11:44-0500BP Pabwplmp806 mm[Hg]Christopher YxozvxeCR-Vtwstkliq-Hfnxscb Work Phone: 1216) 11:44-0500BSA (Body Surface Area)2.32 m2 Christopher DeulglkDM-Zrigzgssp-Uyyhjrn Work Phone: 1216 11:44-9128Hodeft127.88 cmArash Roland BP-Poswpqezs-Kipjymx Work Phone: 1216 11:44-0500Pulse (Heart Rate)85 /minArash IajjcgsAJ-Xnzjivhtm-Vwblxux Work Phone: 1216) 11:44-0500Pulse Vbhcmeeh372 %Christopher Roland KJ-Oltlzshkr-Zpvlxzi Work Phone: 1216 11:44-0500Respiratory Rate16 /minArash VpjxtshFM-Hirrqyyev-Rnzlxzm Work Phone: 1216 11:44-41792 1Arash Roland XN-Goyauczrz-Irzbebd Work Phone: Comment on above:Pain Scale Encounters Encounter DateEncounter TypeCare ProviderFacilityStart: 10-14-2025 End: 86-66-9249Lvycnheew encounterApril Tyree DOWNEY Sushant 100 Family Medicine Comment on above:Care CoordinationStart: 06-01-2025 End: 70-29-8388Byzdvpklm Result Beni Farias MD Work Phone: noms External Department UnsolicitedStart: 06-01-2025 End: 65-92-8683Vyjdpolrt Result Beni Farias MD Work Phone: NORD External Department UnsolicitedStart: 05-25-2025 End: 91-45-9997Hubuzn flowsheetNael Farias MD Work Phone: [facility] Sushant 100 Family MedicineStart: 05-25-2025 End: 89-83-3900Ofzkcl flowsLucina Farias MD Work Phone: [facility] Sushant 100 Family MedicineStart: 05-25-2025 End: 38-35-5081Ewuyfz outpatient visit 25 minutesEdscott Farias MD Work Phone: [facility] S[facility] 100 Family MedicineComment on above:Chronic pain syndrome (Primary Dx); Moderate persistent asthma without complication (HCC); Drug-induced diffuse interstitial pulmonary fibrosis; Morbid obesity ([facility]-HCC); BMI 37.0-37.9, adult; Stage 3b chronic kidney disease ([facility]-HCC); Venous insufficiencyStart: 05-25-2025 End: 67-45-6708ympupkrqqsWJOCDV J HEMEYERNot AvailableStart: 05-09-2025 End: 61-31-6317Pdhwcn flowsLucina Farias MD Work Phone: [facility] S[facility] 100 Family MedicineStart: 05-09-2025 End: 50-25-8890Nigzpd Carmenza Farias MD Work Phone: [facility] S[facility] 100 Family MedicineStart: 05-09-2025 End: 15-60-7607Oqmcns outpatient visit 25 minutesNael Farias MD Work Phone: [facility] [address] 100 [facility] MedicineComment on above:Edema of both legs (Primary Dx); Drug-induced diffuse interstitial pulmonary fibrosis; Moderate persistent asthma without complication (HCC); Systolic dysfunction; Stage 3b chronic kidney disease (CMS-HCC)Start: 05-09-2025 End: 59-01-8197rsyobqbjfmTSYYPJ J HEMEYERNot AvailableStart: 03-09-2025 End: 91-64-6696Qzgzbmlte Result EncounterGeneric External Data ProviderNOMS External Department UnsolicitedStart: 03-09-2025 End: 05-02-8565Totwusypc Result EncounterGeneric External Data ProviderNOMS External Department UnsolicitedStart: 02-22-2025 End: 95-12-3028Sbbuhpmisha Farias MD Work Phone: N[facility] CI FM 100Start: 02-22-2025 End: 86-97-4715Yiyygtmisha Farias MD Work Phone: noMS CI FM 100Start: 02-22-2025 End: 96-33-8888Vfpeex outpatient visit 25 minutesNael Farias MD Work Phone: noMS CI FM 100Comment on above:Nausea (Primary Dx); Moderate persistent asthma without complication (HCC); Drug-induced diffuse interstitial pulmonary fibrosis; Chronic pain syndrome; SpasmStart: 02-22-2025 End: 27-47-9130ligaslkibyTVRILD J HEMEYERNot AvailableStart: 02-17-2025 End: 93-30-1403Kcfivl outpatient visit 25 minutesChristopher Watkins MD Work Phone: [facility] DrComment on above:Stage 3b chronic kidney disease (Multi) (Primary Dx); Essential hypertension; Hyperparathyroidism, secondary (Multi); Diffuse large B-cell lymphoma, unspecified body region (Multi)Start: 02-17-2025 End: 68-72-2470ugxmydckxfISGTKPiedmont Rockdale AmbulatoryStart: 02-10-2025 End: 22-39-0002Tkjeds outpatient visit 25 minutesAnirudh Sears MD Work Phone: uh [facility] DrComment on above: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 (Primary Dx)Start: 02-10-2025 End: 10-02-6888tjvyqbcediNBFK C [facility] Hospitaltart: 01-31-2025 End: 69-29-2222Sznitwwme Result EncounterGeneric External Data ProviderNOMS External Department UnsolicitedStart: 01-31-2025 End: 57-58-9907Djqhsiipd Result EncounterGeneric External Data ProviderNOMS External Department UnsolicitedStart: 01-10-2025 End: 73-62-9761Spqffk Carmenza Farias MD Work Phone: [facility] CI FM 100Start: 01-10-2025 End: 16-60-7974Ydyqgc Carmenza Farias MD Work Phone: [facility] CI FM 100Start: 01-10-2025 End: 47-01-7576wkrbhgcljyWZNUEA J HEMEYERNot AvailableStart: 01-03-2025 End: 06-24-3581Kjqubd outpatient visit 25 minutesDawfelicia Cole MD Work Phone: [facility] HealthcareComment on above:CVID (common variable immunodeficiency) (Primary Dx); Moderate persistent asthma without complication ([facility]-HCC)Start: 01-03-2025 End: 57-11-0594kdcehbfewbQWLB M [facility] AmbulatoryStart: 12-15-2024 End: 98-30-8358Xucjspkiq Result EncounterGeneric External Data ProviderNOMS External Department UnsolicitedStart: 12-15-2024 End: 54-74-9593Lwergoczo Result EncounterGeneric External Data ProviderNOMS External Department UnsolicitedStart: 11-04-2024 End: 49-17-3359Wkhpsgmisha Farias MD Work Phone: [facility] CI FM 100Start: 11-04-2024 End: 11-67-8780Imxppzvenancio Farias MD Work Phone: [facility] CI FM 100Start: 11-04-2024 End: 74-07-9821Abbnfql encounter Lashay Farias MD Work Phone: NOWI CI 100Comment on above:Encounter for Medicare annual wellness exam (Primary Dx); Advance directive discussed with patient; Encounter for screening for other disorder; Screening for alcohol problem; Screening for diabetes mellitus (DM); Screening for lipid disorders; Morbid obesity (CMS/HCC); Acute non-recurrent maxillary sinusitis; 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 (CMS/HCC); Secondary malignant neoplasm of spinal canal (CMS/HCC); 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); Secondary malignant neoplasm of spleen (CMS/HCC); Hypogammaglobulinemia (CMS/HCC); Common variable immunodeficiency (CMS/HCC); 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); Stem cells transplant status (CMS/HCC); Drug-induced polyneuropathy (CMS/HCC); 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); Migraine without aura, intractable, with status migrainosus (CMS/HCC); Mixed hyperlipidemia (CMS/HCC); Stage 3b chronic kidney disease (HCC) (CMS/HCC)Start: 11-04-2024 End: 49-68-0415mmcixssifgPRTZKN J HEMEYERNot AvailableStart: 10-19-2024 End: 49-14-1056Yszcpn outpatient visit [address] [facility] [facility]Christopher Watkins MD Work Phone: [facility] DrComment on above:Stage 3b chronic kidney disease (Multi) (Primary Dx); Essential hypertension; Hyperparathyroidism, secondary (Multi); Diffuse large B-cell lymphoma, unspecified body region (Multi)Start: 10-19-2024 End: 01-74-0112xjeppeohnhLSNUR RASHIDIOur [facility] AmbulatoryStart: 09-22-2024 End: 01-16-3186Rzlxkwgor Result EncounterGeneric External Data ProviderNOMS External Department UnsolicitedStart: 09-22-2024 End: 78-48-7775Bibcmbrpn Result EncounterGeneric External Data ProviderNOMS External Department UnsolicitedStart: 08-23-2024 End: 11-04-1659Iahzcl flowsheetNael Farias MD Work Phone: [facility] CI FM 100Start: 08-23-2024 End: 30-75-6896Qaldhv flowsheetNael Farias MD Work Phone: [facility] CI FM 100Start: 08-23-2024 End: 75-40-3397Vejgam outpatient visit 25 minutesNael Farias MD Work Phone: [facility] CI FM 100Comment on above:Spasm (Primary Dx); Chronic pain syndrome; Drug-induced polyneuropathy (CMS/HCC); Moderate persistent asthma without complication (CMS/HCC)Start: 08-23-2024 End: 97-50-3946oopttbrwavEGQQAD J HEMEYERNot AvailableStart: 08-16-2024 End: 88-97-2884Iexnby outpatient visit 40 minutesAnirudh Sears MD Work Phone: uh [facility] DrComment on above: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 (Primary Dx); Hypogammaglobulinemia (Multi)Start: 08-16-2024 End: 77-37-9127owxtorvrbnLSNU C [facility] Hospitaltart: 08-12-2024 End: 74-76-5208Najvpphmx Result EncounterGeneric External Data ProviderNOMS External Department UnsolicitedStart: 08-12-2024 End: 72-09-8354Mnthzomxu Result EncounterGeneric External Data ProviderNOMS External Department UnsolicitedStart: 07-05-2024 End: 19-37-2056Tecavw outpatient visit 25 minutesDaburton Cole MD Work Phone: uh [facility] HospitalComment on above:CVID (common variable immunodeficiency) (Primary Dx); Asthma, unspecified asthma severity, unspecified whether complicated, unspecified whether persistent ([facility]-HCC)Start: 07-05-2024 End: 25-82-2879yplisgmschRNFY M ZACHASt. [facility] AmbulatoryStart: 06-30-2024 End: 41-13-8480Dmvxrtqsz Result EncounterGeneric External Data ProviderNOMS External Department UnsolicitedStart: 06-30-2024 End: 68-17-9607Vxtjawbeu Result EncounterGeneric External Data ProviderNOMS External Department UnsolicitedStart: 06-16-2024 End: 78-85-0131qvaerpahfnVO Nael Farias Work Phone: [facility] Work Phone: Start: 06-16-2024 End: 56-68-0131Siamsrc encounter procedureMD Nael Farias Work Phone: [facility] Work Phone: Start: 06-11-2024 End: 98-83-3525Mvmtuq outpatient visit 25 minutesChristopher Watkins MD Work Phone: [facility] DrComment on above:Stage 3b chronic kidney disease (Multi) (Primary Dx); Essential hypertension; Hyperparathyroidism, secondary (Multi)Start: 06-11-2024 End: 16-65-5527eqbktllqysNWBKFPiedmont Rockdale AmbulatoryStart: 06-02-2024 End: 51-00-9288Czbcqawlt Result EncounterGeneric External Data ProviderNOMS External Department UnsolicitedStart: 06-02-2024 End: 60-68-3115Xhfehxble Result EncounterGeneric External Data ProviderNOMS External Department UnsolicitedStart: 05-31-2024 End: 53-33-7585Julearmyi Beni Farias MD Work Phone: [facility] CI FM 100Start: 05-25-2024 End: 24-53-6460Jqfeto flowsLucina Farias MD Work Phone: [facility] CI FM 100Start: 05-25-2024 End: 41-79-7238Qpdxaj flowsLucina Farias MD Work Phone: [facility] CI FM 100Start: 05-25-2024 End: 90-35-2099Projli outpatient visit 15 minutesNael Farias MD Work Phone: [facility] CI FM 100Comment on above:Chronic pain syndrome; Drug-induced polyneuropathy (CMS/HCC); Spasm; Moderate persistent asthma without complication (CMS/HCC); Morbid obesity (CMS/HCC); BMI 35.0-35.9,adultStart: 05-19-2024 End: 80-76-9385zhavyfclwsJN Nael Farias Work Phone: [facility] Work Phone: Start: 05-19-2024 End: 65-89-5865Ufxbrde encounter procedureMD Nael Farias Work Phone: [facility] Work Phone: Start: 05-10-2024 End: 04-36-7019Mnmsvc flowsheetChristopher Prince DO Work Phone: [facility]TEStart: 05-10-2024 End: 58-73-3780Ucgxnj flowsheetChristopher Prince DO Work Phone: [facility]TEStart: 05-10-2024 End: 99-08-3281Hggost outpatient visit 25 minutesChristopher Prince DO Work Phone: [facility] STATE ROUTEComment on above:Cervical radiculopathy (Primary Dx); Multilevel degenerative disc diseaseStart: 04-27-2024 End: 07-97-4831Uffdcn outpatient visit 15 minutesAnirudh Sears MD Work Phone: [facility] DrComment on above: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 (Multi) (Primary Dx); Hypogammaglobulinemia (Multi)Start: 04-27-2024 End: 66-17-9174wjubhtueikQJHP C ARORAMarion Hospitaltart: 04-15-2024 End: 39-52-7330Rsvzvdb encounter procedureMD Nael Farias Work Phone: [facility] [place] Work Phone: Start: 04-15-2024 End: 88-81-5821stywrjtsbiFJ Nael Farias Work Phone: [facility] Work Phone: Start: 01-05-2024 End: 32-54-7393Kmrkdg outpatient visit 25 minutesSandra Cole MD Work Phone: [facility] HospitalComment on above:Asthma, unspecified asthma severity, unspecified whether complicated, unspecified whether persistent ([facility]-H[facility]) (Primary Dx); CVID (common variable immunodeficiency) (Multi)Start: 12-05-2023 End: 70-94-3686Rdqlfp outpatient visit 15 minutesChristopher Watkins MD Work Phone: [facility] DrComment on above:Stage 3b chronic kidney disease (CMS/HCC) (Primary Dx); Essential hypertension; Hyperparathyroidism, secondary (CMS/HCC)Start: 09-09-2023 End: 92-17-8394Pjxmtr outpatient visit 25 minutesSandra Cole MD Work Phone: uh Mountainside HospitalComment on above: Hypogammaglobulinemia (CMS/HCC) (Primary Dx); CVID (common variable immunodeficiency) (CMS/HCC)Start: 08-13-2023 End: 11-58-8261Ngmhvn outpatient visit 15 minutesAnirudh Sears MD Work Phone: uh [facility] DrComment on above: Hypogammaglobulinemia (CMS/HCC)Start: 09-57-2750cuzyiswrnrLiMary FariasFacility:[address]Sjzvf: 60-71-6370Ct RenewalEdscott Farias Work Phone: [phone]-LgptlAitkin Hospital 3 DO Work Phone: Start: 55-99-7285DTSLRWctmyi J Hemeyer Work Phone: [facility] Work Phone: Start: 21-21-5508Dkhkitl tobacco non-user cad cap copd pv Bill Farias Work Phone: [phone]-Vdir Management-[place] Work Phone: Start: 72-40-0876hhkpyrsoriUh. Fab Clark Facility:9857Start: 19-16-8455Hjhpxn outpatient visit 25 minutesEdscott Jaquan Brownevelyn Work Phone: [phone]-Svbue [facility] 3 DO Work Phone: Start: 49-71-0426dszxpxmojaEw. Nael Farias Facility:257[address]Ifeke: 12-30-1031rsjnesfwlwTk. Nael FariasFacility:[facility] CtrStart: 01-02-2023 End: 26-38-4556fntnolachfMXNT M ZACHARIASFacility:F1Grjcc: 95-44-3939Emxvrh outpatient visit 15 minutesEdscott Farias Work Phone: [phone]-UtmkuwxkyjNorthwest Medical Center 2100 DO Work Phone: Start: 36-74-3259Wonjvas encounter procedureNael Farias Work Phone: [phone]-TfoqktkeutNorthwest Medical Center 2100 DO Work Phone: Start: 66-60-3018qmbqnxaxduIe. Nael Sunday Andrea Facility:9544Start: 01-58-7287Lz RenewalNael Farias Work Phone: [phone]-SbsxiDeer River Health Care CenterNajma 250 DO Work Phone: Start: 10-15-2022 End: 69-17-2017jpgeoejnqvCO NAEL FARIAS .Facility:T2Rpcbi: 10-11-2022 End: 75-69-4935okjsoxzrcdRW DOCTOR MISCFacility:S3Ceear: 32-57-5937ftugktyfos Anirudh C AroraFacility:[facility] CtrStart: 09-27-2022 End: 18-42-5519voftjbbrcpSY DOCTOR MISCFacility:K2Dynkk: 43-62-3145xufvgtbygs Anirudh C AroraFacility:[facility] CtrStart: 31-21-0270oegerrurgeGzhq Chokshi AroraFacility:9542Start: 08-12-2022 End: 25-31-2707jvqvxxhpguOS DOCTOR MISCFacility:U5Mffow: 07-18-2022 End: 57-31-2584yzwiiajalxRB DOCTOR MISCFacility:I4Ifuru: 35-39-6821oupdbdmdygIs. Nael FariasFacility:20211Nndaj: 06-11-2022 End: 91-63-5207qzedaoxmzfXA Nael Farias Work Phone: [facility] Work Phone: Start: 06-11-2022 End: 50-73-3273Bujbstj encounter procedureMD Nael Farias Work Phone: [facility] Eme-Lcq-Ytjknadg Testing Start: 04-01-2022 End: 68-99-4786czcaxbesbkMR NAEL FARIAS .Facility:Q0Mrvmf: 02-21-2022 [address]Dr[address] Nael FariasFacility:9542Start: 02-20-2022 End: 69-35-8078vwcvxkdkalCN DOCTOR MISCFacility:T4Okozn: 84-75-2031Jhvern outpatient visit 15 minutesNael Farias Work Phone: [phone]-Ftmmoahlyf-[place] 2100 DO Work Phone: Start: 70-45-5179Erpustp encounter procedureNael Farias Work Phone: [phone]-Tmlnjxydtd-[place] 2100 DO Work Phone: Start: 55-38-3309sdugletlosXo. Nael Farias Facility:9537Start: 50-93-9216Ilpdjy outpatient visit 25 minutesNael Farias Work Phone: [phone]-[facility]itsSt. [facility] 3 DO Work Phone: Start: 63-57-8383Svtmn UpdateNael Farias Work Phone: [phone]-Gzcdmhnzuc-[place] 2100 DO Work Phone: Start: 45-47-1587Yhhwsji encounter procedureEdscott Farias Work Phone: [phone]-Adhvbubuiv-[place] 2100 DO Work Phone: Start: 92-75-7916Uteonuk encounter procedureArash IklikjzQG-Tkkwujeck-Gbpvykq Work Phone: Start: 96-42-5887Xwfcvwr encounter procedureArash OnsearjSE-Lucaxokwk-Uqyfvkp Work Phone: Start: 16-07-8924Vclgouc encounter procedureEdward VlwxwnpZZ-Qpuoagwxwvtcu-Ubpmtexb [address]102 Work Phone: Start: 17-17-7893Etlcxdk encounter procedureEdward HpedxrkWV-Gtzbojwvnqovq-Pqxijrta [address]102 Work Phone: Start: 29-19-9406Bwgyvtg encounter procedureEdward SsyfqkqUT-Fllwlbaammyvl-Oxhxmirl [address]102 Work Phone: Start: 40-01-4260Svfqppc encounter procedureEdward ZeqluueLP-Zbmhefmgoikvh-Tzolmuou [address]102 Work Phone: Start: 88-83-4346Mmfamke encounter procedureEdward WkusmanKD-Shfhienvtcdvd-Jugasino [address]102 Work Phone: Start: 85-70-3843Uztlbdh encounter procedureEdward TqxywvaIE-Hwgfnmidxkqkm-Ddzlcbad [address]102 Work Phone: Procedures DateProcedureProcedure DetailPerforming ClinicianStart: 71-54-7109AIF BASIC METABOLIC PANELEdscott Farias MD Work Phone: Start: 59-97-6829RTY IMMUNOGLOBULIN GGeneric External Data ProviderStart: 40-40-9183HXQ CBC WITH AUTO DIFFGeneric External Data ProviderStart: 32-77-1611JXB CMP (CMP) (FOR REMOTE [facility] USE)Generic External Data ProviderStart: 79-19-3457OLW CMP (CMP) (FOR REMOTE [facility] USE)Generic External Data ProviderStart: 06-35-9191OMU CBC WITH AUTO DIFFGeneric External Data ProviderStart: 81-73-0612SGL IMMUNOGLOBULIN GGeneric External Data Provider Start: 55-63-6345OLG CBC WITH AUTO DIFFGeneric External Data ProviderStart: 20-64-5209TXP of cervical spine with contrastMD Nael Farias Work Phone: Start: 51-62-8289QIE of headMD Nael Farias Work Phone: Start: 49-09-5740MwhrdyxzhqhUrqx Arora MD Work Phone: Start: 32-43-6424Ekokc of blood/uric acidArash Roland Start: 99-86-3032Gxwpx of parathormoneArash RashidiStart: 97-29-3691Aceto of phosphorus inorganicArash RashidiStart: 23-78-6823Ojtlu metabolic 1997 panel - Serum or PlasmaArash RashidiStart: 55-55-5551Osgri metabolic 1997 panel - Serum or PlasmaArash RashidiStart: 52-12-735900 hydroxy includes fractions if performedArash RashidiStart: 87-41-1432Bizgw of blood/uric acidArash Roland Start: 56-86-1574Dyzxf of parathormoneArash RashidiStart: 91-61-1597Ljyfx of phosphorus inorganicArash RashidiStart: 52-95-6819Zujmt metabolic 1997 panel - Serum or PlasmaArash RashidiStart: 44-36-9850Kdznzhfjub other sourceArash RashidiStart: 45-09-1327Vqzmuck total xcpt refractometry urineArash Roland Start: 30-85-4604Dbjghmvthg Kidney BilateralArash RashidiStart: 63-52-3823Utgvl dip stick/tablet rgnt auto w/o microscopyArash RashidiStart: 75-14-4466Gmexe 1996 panel - Serum or PlasmaAnirudh Sears MD Work Phone: Fasciotomy of footEdscott Mcdaniel Antigen (LFIA)MD Nael Farias Work Phone: Plan of Treatment DateCare ActivityDetailAuthorStart: 47-98-0504Hzscnsuus for malignant [facility] of [facility] HospitalStart: 98-83-1001Obdxngiee vaccination Influenza Vaccine (#1)[facility] HealthcareComment on above:Postponed from 05/02/2025 (Patient Refused)Start: 03-06-2026Medicare Annual Wellness (AWV)Medicare Annual Wellness (AWV)[facility] HealthcareStart: 08-16-2025 End: 14-33-5900JZI W Auto Differential panel - BloodCBC and Auto Differential Lab Routine 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 Expected: 08/16/2025, Expires: 02/14/2026[facility] Service Area Work Phone: Comment on above:Expected: 08/16/2025, Expires: 02/14/2026Start: 08-16-2025 End: 50-16-2659Tcyxvlynztdhz metabolic 2000 panel - Serum or PlasmaComprehensive metabolic panel Lab Routine 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 Expected: 08/16/2025 (Approximate), Expires: 02/14/2026[facility] Work Phone: Comment on above:Expected: 08/16/2025 (Approximate), Expires: 02/14/2026Start: 08-16-2025 End: 17-01-0295Nqjelsc dehydrogenase [Enzymatic activity/volume] in Serum or Plasma by Lactate to pyruvate reactionLactate dehydrogenase Lab Routine Diffuse large B-cell lymphoma of extranodal site excluding spleenand other solid organs Expected: 08/16/2025 (Approximate), Expires: 02/14/2026[facility] Work Phone: Comment on above:Expected: 08/16/2025 (Approximate), Expires: 02/14/2026Start: 08-15-2025 End: 87-17-2739Qmcyhqq encounter gvaqacpmf62/15/2025 10:40 AM EST Office Visit [facility] [address] [place] [address] [place]irudh Sears [place] [id number] [place] [address] [address] [place] [address] [facility] DrStart: 08-12-2025 End: 97-66-2784WSQ W Auto Differential panel - BloodCBC and Auto Differential Lab Routine 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 Expected: 08/12/2025 (Approximate), Expires: 02/10/2026 [facility] Service Area Work Phone: Comment on above:Expected: 08/12/2025 (Approximate), Expires: 02/10/2026Start: 08-12-2025 End: 00-62-0058Defbvvjownxgs metabolic 2000 panel - Serum or PlasmaComprehensive Metabolic Panel Lab Routine 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 Expected: 08/12/2025 (Approximate), Expires: 02/10/2026[facility] Work Phone: Comment on above:Expected: 08/12/2025 (Approximate), Expires: 02/10/2026Start: 08-12-2025 End: 44-02-5559Mbnguqa dehydrogenase [Enzymatic activity/volume] in Serum or Plasma by Lactate to pyruvate reactionLactate dehydrogenase Lab Routine Diffuse large B-cell lymphoma of extranodal site excluding spleenand other solid organs Expected: 08/12/2025 (Approximate), Expires: 02/10/2026[facility] Work Phone: Comment on above:Expected: 08/12/2025 (Approximate), Expires: 02/10/2026Start: 07-11-2025 End: 74-90-6735Faglkwd encounter grrmfopta30/10/2025 11:15 AM EST Office Visit [facility] [address] [place] [address] Sandra Cole MD [address] [facility], [address] [place], [place] [phone] [facility] Campustart: 05-25-2025 End: 85-95-8484Ixddi metabolic 1998 panel - Serum or PlasmaBasic metabolic panel Lab Routine Stage 3b chronic kidney disease ([facility]-HCC) Expected: 05/25/2025 (Ap proximate), Expires: 05/25/2026[facility] Work Phone: Comment on above:Expected: 05/25/2025 (Approximate), Expires: 05/25/2026Start: 05-25-2025 End: 90-33-4984Nprycyy encounter procedureNOMS CI FM 100Comment on above:Chronic pain syndrome; Moderate persistent asthma without complication (HCC); Drug-induced diffuse interstitial pulmonary fibrosis; Thickening of pleura; Morbid obesity ([facility]-HCC); BMI 37.0-37.9, adultStart: 05-09-2025 End: 51-64-6660Nareweg encounter mpfvbetoa42/08/2025 1:45 PM EDT Office Visit [facility] [place] [address] [place] [address] Nael Farias MD [address] [place] [address] (Fax) ArrivedNORobert Ville [address] Family MedicineComment on above:ArrivedStart: 85-10-1087Sbwfpbtej vaccinationNOMS HealthcareStart: 41-87-0271Odzrpiihl vaccinationInfluenza Vaccine (#1)[facility] HealthcareComment on above:Postponed from 05/02/2024 (Patient Refused)Start: 02-22-2025 End: 07-65-3353Iicwauq encounter mzbozmpkc84/24/2025 11:00 AM EDT Office Visit [facility] [address] [place] [address] Nael Farias MD [address] [place] [address] (Fax) Moderate persistent asthma without complication (HCC); Drug-induced diffuse interstitial pulmonary fibrosis; Chronic pain syndromeNOMS CI FM 100Comment on above:Moderate persistent asthma without complication (HCC); Drug-induced diffuse interstitial pulmonary fibrosis; Chronic pain syndromeStart: 02-17-2025 End: 64-85-8955Xrnxx metabolic 2000 panel - Serum or PlasmaBasic Metabolic Panel Lab Routine Stage 3b chronic kidney disease (Multi) Essential hypertension Hyp erparathyroidism, secondary (Multi) Diffuse large B-cell lymphoma, unspecified body region (Multi) Expected: 02/17/2025 (Approximate), Expires: 02/17/2026[facility] [address] [facility] Work Phone: Comment on above:Expected: 02/17/2025 (Approximate), Expires: 02/17/2026Start: 02-17-2025 End: 48-21-0554Jbtrlcnfnm [Mass/volume] in UrineCreatinine, Urine Random Lab Routine Stage 3b chronic kidney disease (Multi) Essential hypertension Hyperparathyroidism, secondary (Multi) Diffuse large B-cell lymphoma, unspecified body region (Multi) Expected: 02/17/2025 (Approximate), Expires: 02/17/2026[facility] Work Phone: Comment on above:Expected: 02/17/2025 (Approximate), Expires: 02/17/2026Start: 02-17-2025 End: 16-70-0863Sfhyqwqmcz.intact [Mass/volume] in Serum or PlasmaParathyroid Hormone, Intact Lab Routine Stage 3b chronic kidney disease (Multi) Essential hypertension Hyperparathyroidism, secondary (Multi) Diffuse large B-cell lymphoma, unspecified body region (Multi) Expected: 02/17/2025 (Approximate), Expires: 02/17/2026[facility] Work Phone: Comment on above:Expected: 02/17/2025 (Approximate), Expires: 02/17/2026Start: 02-17-2025 End: 98-38-7113Tonqqry, Urine RandomProtein, Urine Random Lab Routine Stage 3b chronic kidney disease (Multi) Essential hypertension Hyperparathyroidism, secondary (Multi) Diffuse large B-cell lymphoma, unspecified body region (Multi) Expected: 02/17/2025 (Approximate), Expires: 02/17/2026[facility] Work Phone: Comment on above:Expected: 02/17/2025 (Approximate), Expires: 02/17/2026Start: 02-17-2025 End: 81-99-6831Smgcxcy encounter ufrklgxra97/19/2025 11:30 AM EDT Office Visit [facility] [address] [place] [address] [place] [address] [place] [address] [facility] DrStart: 01-10-2025 End: 21-82-6204Mysajad encounter xodlfuakg50/12/2025 1:45 PM EDT Office Visit [facility] [address] [place] [address] Nael Farias MD [address] [place] [address] (Fax) ArrivedNOMS CI FM 100Comment on above: ArrivedStart: 01-03-2025 End: 46-96-1751Dijtssz encounter cwqqpgqqo04/05/2025 10:45 AM EDT Office Visit [facility] [address] [facility] [address] [place] [address] Sandra Cole MD [address] [facility], [facility] [address] [place] [address] [facility] Campustart: 11-04-2024 End: 85-90-8582Stkbkio encounter /06/2025 9:30 AM EST Office Visit [facility] [address] [place] [address] Nael Farias MD [address] [place] [address] (Fax) Encounter for Medicare annual wellness exam; Advance directive discussed withpatient; Encounter for screening for other disorder; Screening for alcohol problem; Screening for diabetes mellitus (DM); Screening for lipid disorders; Morbid obesity (CMS/HCC)[facility] CI FM 100Comment on above:Encounter for Medicare annual wellness exam; Advance directive discussed with patient; Encounter for screening for other disorder; Screening for alcohol problem; Screening for diabetes mellitus (DM); Screening for lipid disorders; Morbid obesity ([facility]/HCC)Start: 02-22-2025Medicare Annual Wellness (AWV)Medicare Annual Wellness (AWV)[facility] HealthcareStart: 10-19-2024 End: 78-30-9885Nqxeq metabolic 2000 panel - Serum or PlasmaBasic Metabolic Panel Lab Routine Stage 3b chronic kidney disease (Multi) Essential hypertension Hyp erparathyroidism, secondary (Multi) Diffuse large B-cell lymphoma, unspecified body region (Multi) Expected: 10/19/2024 (Approximate), Expires: 10/19/2025[facility] Service Area Work Phone: Comment on above:Expected: 10/19/2024 (Approximate), Expires: 10/19/2025Start: 10-19-2024 End: 50-91-9994Mnzsfmvryi [Mass/volume] in UrineCreatinine, Urine Random Lab Routine Stage 3b chronic kidney disease (Multi) Essential hypertension Hyperparathyroidism, secondary (Multi) Diffuse large B-cell lymphoma, unspecified body region (Multi) Expected: 10/19/2024 (Approximate), Expires: 10/19/2025[facility] Work Phone: Comment on above:Expected: 10/19/2024 (Approximate), Expires: 10/19/2025Start: 10-19-2024 End: 06-87-4380Iqefjyiuug.intact [Mass/volume] in Serum or PlasmaParathyroid Hormone, Intact Lab Routine Stage 3b chronic kidney disease (Multi) Essential hypertension Hyperparathyroidism, secondary (Multi) Diffuse large B-cell lymphoma, unspecified body region (Multi) Expected: 10/19/2024 (Approximate), Expires: 10/19/2025[facility] Work Phone: Comment on above:Expected: 10/19/2024 (Approximate), Expires: 10/19/2025Start: 10-19-2024 End: 79-67-9629Mlhcukl, Urine RandomProtein, Urine Random Lab Routine Stage 3b chronic kidney disease (Multi) Essential hypertension Hyperparathyroidism, secondary (Multi) Diffuse large B-cell lymphoma, unspecified body region (Multi) Expected: 10/19/2024 (Approximate), Expires: 10/19/2025[facility] Work Phone: Comment on above:Expected: 10/19/2024 (Approximate), Expires: 10/19/2025Start: 10-08-2024 End: 85-77-2377Pbacuse encounter etnlugvrg78/07/2025 10:40 AM EST Office Visit [facility] [address] [place] [address] [address] [place] [address] Christopher Watkins MD [address] [place] [address] [address] [place], [place] [address] [facility] DrStart: 08-23-2024 End: 63-59-3300Einlmcz encounter procedureNOMS CI FM 100Comment on above:Arrived Start: 08-16-2024 End: 33-19-2762Azygpda encounter vzctcgjon74/16/2024 10:40 AM EST Office Visit [facility] [address] [place] [address] [address] [place] [address] Anirudh Sears MD [address] [place] [address] [address] [place], [place] [address] [facility] DrStart: 08-09-2024 End: 89-38-0636Ultswkl encounter oqrkvqwuq36/09/2024 8:20 AM EST Office Visit [facility] [address] [place] [address] Arely Gabriel NP [address] [place] [address] [facility] ROUTEStart: 07-14-2024 End: 74-08-1897Ethpanb encounter zfamieztf44/13/2024 1:45 PM EST Office Visit [facility] [address] [place] [address] Nohelia Machado, DO [address] [place] [address] [facility] DAIGLE PULMStart: 07-05-2024 End: 66-44-6959Luvmfgu encounter jizkeglnh89/04/2024 10:45 AM EST Office Visit [facility] [address] [place] [address] Sandra Cole MD [address] [facility], [address] [place] [address] [facility] Campustart: 06-11-2024 End: 84-80-1147Mmsmi metabolic 2000 panel - Serum or PlasmaBasic Metabolic Panel Lab Routine Stage 3b chronic kidney disease (Multi) Essential hypertension Hyp erparathyroidism, secondary (Multi) Expected: 06/11/2024 (Approximate), Expires: 06/11/2025[facility] Service Area Work Phone: Comment on above:Expected: 06/11/2024 (Approximate), Expires: 06/11/2025Start: 06-11-2024 End: 95-07-0403Rudkdmrxsh [Mass/volume] in UrineCreatinine, Urine Random Lab Routine Stage 3b chronic kidney disease (Multi) Essential hypertension Hyperparathyroidism, secondary (Multi) Expected: 06/11/2024 (Approximate), Expires: 06/11/2025[facility] Work Phone: Comment on above:Expected: 06/11/2024 (Approximate), Expires: 06/11/2025Start: 06-11-2024 End: 65-56-5859Qzqnztynef.intact [Mass/volume] in Serum or PlasmaParathyroid Hormone, Intact Lab Routine Stage 3b chronic kidney disease (Multi) Essential hypertension Hyperparathyroidism, secondary (Multi) Expected: 06/11/2024 (Approximate), Expires: 06/11/2025[facility] Work Phone: Comment on above:Expected: 06/11/2024 (Approximate), Expires: 06/11/2025Start: 06-11-2024 End: 61-40-6325Eebzqwv, Urine RandomProtein, Urine Random Lab Routine Stage 3b chronic kidney disease (Multi) Essential hypertension Hyperparathyroidism, secondary (Multi) Expected: 06/11/2024 (Approximate), Expires: 06/11/2025 [facility] Work Phone: Comment on above:Expected: 06/11/2024 (Approximate), Expires: 06/11/2025Start: 06-11-2024 End: 04-36-3324Lbrmosd encounter otabvxzlb88/11/2024 10:30 AM EDT Office Visit [facility] [address] [place] [address] [place] [address] [place], [place] [address] [facility] DrStart: 05-25-2024 End: 58-74-0975Epnwrun encounter yqgmtzkyh71/24/2024 10:00 AM EDT Office Visit [facility] [address] [address] Nael Farias MD [address] [place], [place] [address] (Fax) Chronic pain syndrome; Drug-induced polyneuropathy (CMS/HCC); Spasm; Moderate persistent asthma without complication (CMS/HCC); Morbid obesity (CMS/HCC); BMI 35.0-35.9,adultNOMS CI FM 100Comment on above: Chronic pain syndrome; Drug-induced polyneuropathy (CMS/HCC); Spasm; Moderate persistent asthma without complication (CMS/HCC); Morbid obesity (CMS/HCC); BMI 35.0-35.9,adultStart: 05-12-2024 End: 41-36-5172Zjeqqzb encounter sqmhrucxt81/11/2024 10:30 AM EDT Office Visit [facility] [address] [phone] Nael Farias MD [address] [facility] [place] [address] (Fax)[place] [address]: 05-10-2024 End: 32-81-7922Zdhaakd encounter qelsnusat88/09/2024 8:30 AM EDT Office Visit [facility] [place] [facility] [address] [place] [address] Nadeem Morrison DO [address] [place] [address] ArrivedNOMS [facility] ROUTEComment on above:ArrivedStart: 91-50-2592UVBJU-19 Vaccine ( season)COVID-19 Vaccine ( season)[facility]: [facility] COVID-19 Vaccine ( season)COVID-19 Vaccine ( season) [facility] InstituteStart: 45-23-4643KLMWS-19 Vaccine ( season)COVID-19 Vaccine ( season)[facility] Start: 49-88-3402Xqvoexcak vaccinationInfluenza Vaccine (#1)[facility] Start: 01-05-2024 End: 11-53-0250Yzvzgpy encounter sjaafoibz59/06/2024 10:45 AM EDT Office Visit [facility] [address] [place] [address] Sandra Cole MD [address] [facility], [facility] [address] [place] [address] (Fax)[facility] Campustart: 12-05-2023 End: 57-44-8196Sdbts metabolic 2000 panel - Serum or PlasmaBasic Metabolic Panel Lab Routine Stage 3b chronic kidney disease (CMS/HCC) Essential hypertension E xpected: 12/05/2023 (Approximate), Expires: 12/04/2024[facility] Service Area Work Phone: Comment on above:Expected: 12/05/2023 (Approximate), Expires: 12/04/2024Start: 12-05-2023 End: 54-44-7696Xiyjygolno [Mass/volume] in UrineCreatinine, Urine Random Lab Routine Stage 3b chronic kidney disease (CMS/HCC) Essential hypertension Expected: 12/05/2023 (Approximate), Expires: 12/04/2024[facility] Work Phone: Comment on above:Expected: 12/05/2023 (Approximate), Expires: 12/04/2024Start: 12-05-2023 End: 36-96-7612Weddpfstdw.intact [Mass/volume] in Serum or PlasmaParathyroid Hormone, Intact Lab Routine Stage 3b chronic kidney disease (CMS/HCC) Essential hypertension Expected: 12/05/2023 (Approximate), Expires: 12/04/2024[facility] Work Phone: Comment on above:Expected: 12/05/2023 (Approximate), Expires: 12/04/2024Start: 12-05-2023 End: 47-45-9342Qerzgwc, Urine RandomProtein, Urine Random Lab Routine Stage 3b chronic kidney disease (CMS/HCC) Essential hypertension Expected: 12/05/2023 (Approximate), Expires: 12/04/2024[facility] Work Phone: Comment on above:Expected: 12/05/2023 (Approximate), Expires: 12/04/2024Start: 11-27-2023 End: 91-71-9208Qjpmqyv encounter rvpmhbeut99/28/2024 12:20 PM EDT Office Visit [facility] [address] [place] [address] [place] [address] [place] [address] [address] [place] [address] [facility] Center DrStart: 10-20-2023 End: 24-46-3422Aqwlluu encounter /19/2024 3:00 PM EST Office Visit [facility] [address] [facility] [address] [place] [id number] Sandra Cole MD [address] [facility], [place] [address] [place] [address] [facility] Campustart: 09-09-2023 End: 75-97-5261Tlhqzfmtcxxtqfq (IgG, IgA, IgM)Immunoglobulins (IgG, IgA, IgM) Lab Routine CVID (common variable immunodeficiency) (CMS/HCC) Expected: 09/09/2023 (Approximate), Expires: 09/09/2024[facility] Service Area Work Phone: comment on above:Expected: 09/09/2023 (Approximate), Expires: 09/09/2024Start: 08-12-2023 End: 59-74-0704GJI W Auto Differential panel - BloodCBC and Auto Differential Lab Routine Hypogammaglobulinemia (CMS/HCC) Expected: 08/12/2023 (Approximate), Expires: 08/11/2024[facility] Service Area Work Phone: Comment on above:Expected: 08/12/2023 (Approximate), Expires: 08/11/2024Start: 08-12-2023 End: 77-94-7696Oyfhapdxdytrp metabolic 2000 panel - Serum or PlasmaComprehensive Metabolic Panel Lab Routine Hypogammaglobulinemia (CMS/HCC) Expected: 08/12/2023 (Approximate), Expires: 08/11/2024[facility] Work Phone: Comment on above:Expected: 08/12/2023 (Approximate), Expires: 08/11/2024Start: 08-12-2023 End: 95-01-5156Hbxtnvk dehydrogenase [Enzymatic activity/volume] in Serum or Plasma by Lactate to pyruvate reactionLactate dehydrogenase Lab Routine Hypogammaglobulinemia (CMS/HCC) Expected: 08/12/2023 (Approximate), Expires: 08/11/2024[facility] Work Phone: Comment on above:Expected: 08/12/2023 (Approximate), Expires: 08/11/2024Start: 24-79-1060YNRAT-19 Vaccine (4 - Pfizer risk series) COVID-19 Vaccine (4 - Pfizer risk series)[facility]: 08-34-3115DCAHR-19 Vaccine ()COVID-19 Vaccine ()[facility]: 54-83-9183STEHA-19 Vaccine ()COVID-19 Vaccine ()[facility]: 53-98-2097NLJCR-19 Vaccine ()COVID-19 Vaccine ()[facility]: 73-55-7846QIF, Provider: Christopher Watkins, Status: Pen, Time: 12:50 PMFUV, Provider: Christopher Watkins, Status: Pen, Time: 12:50 PM-[facility] 3 DO Work Phone: Start: 14-65-6453ACS, Provider: Christopher Watkins, Status: Pen, Time: 11:10 AMFUV, Provider: Christopher Watkins, Status: Pen, Time: 11:10 AM [facility] [address] DO Work Phone: Start: 73-41-0255WOX, Provider: Christopher Watkins, Status: Pen, Time: 1:00 PMFUV, Provider: Christopher Watkins, Status: Pen, Time: 1:00 PM- [facility] 250 DO Work Phone: Start: 49-38-4601Tgums panelLipid PanelUnWright-Patterson Medical Center: 63-45-6150Uuavevlg mellitus screeningDiabetes ScreeningOhioHealth Grady Memorial Hospital: 09-27-5861CPB, Provider: Christopher Watkins, Status: Pen, Time: 2:10 PMFUV, Provider: Christopher Watkins, Status: Pen, Time: 2:10 PM-[facility] 3 DO Work Phone: Start: 62-62-9445XCL, Provider: Christopher Watkins, Status: Pen, Time: 10:00 AMFUV, Provider: Christopher Watkins, Status: Pen, Time: 10:00 AM AM-Hjatkzcamh-Dikfmntm [address]100 DO Work Phone: Start: 22-09-9288Shtpkbfwb B Vaccines (1 of 3 - Risk 3-dose series)Hepatitis B Vaccines (1 of 3 - Risk 3-dose series)[facility]: 42-46-9663NKH High Risk: (Elderly (60+) or Population) (1 - Risk 60-74 years 1-dose series)RSV High Risk: (Elderly (60+) or Population) (1 - Risk 60-74 years 1-dose series)[facility]: 90-02-4180RVD patients and/or patients aged 60+ years (1 - 1-dose 60+ series)RSV patients and/or patients aged 60+ years (1 - 1-dose 60+ series)[facility]: 09-71-8210Fhoqlpfbit Kidney RiyxdjqymUL-Natfjzhib-Gkmydpg Work Phone: Start: 42-23-5240CGzZ/Tdap/Td Vaccines (1 - Tdap) DTaP/Tdap/Td Vaccines (1 - Tdap)[facility]: 54-82-8629Ehubgrhfn A Vaccines (1 of 2 - Risk 2-dose series)Hepatitis A Vaccines (1 of 2 - Risk 2-dose series)[facility]: 11-16-1979 Pneumococcal vaccinationPneumococcal Vaccine (1 of 2 - PCV)[facility]: 78-85-4364Lcpgg screening for proteinCKD: Urine Protein ScreeningUnWright-Patterson Medical Center: 57-79-8907Cztnia Vaccines (1 of 2)Zoster Vaccines (1 of 2)[facility]: 1966 Pneumococcal Vaccine: Pediatrics (0 to 5 Years) and At-Risk Patients (6 to 64 Years) (1 - PCV)Pneumococcal Vaccine: Pediatrics (0 to 5 Years) and At-Risk Patients (6 to 64 Years) (1 - PCV)[facility]: 80-03-4072Brrnxyycencf Vaccine: Pediatrics (0 to 5 Years) and At-Risk Patients (6 to 64 Years) (1 of 2 - PCV)Pneumococcal Vaccine: Pediatrics (0 to 5 Years) and At-Risk Patients (6 to 64 Years) (1 of 2 - PCV)[facility]: 80-30-0320LXD screeningHIV ScreeningOhioHealth Grady Memorial Hospital: 03-17-1961Medicare Annual Wellness VisitMedicare Annual Wellness Visit (AWV)[facility]: 07-96-0985Knqumvmhc for malignant neoplasm of [facility] HospitalaPTT in Platelet poor plasma by Coagulation assayOhiohealth Hardin Memorial HospitalPlatelets [#/volume] in BloodUC West Chester HospitalNeurology-Seidman Work Phone: [facility] HospitalNEGATED: Highlighted row has been ruled out!Planned Goals not ikgrnscixwNV-Svmkokgny-Habiiey Work Phone: Immunizations Immunization DateImmunizationNotesCare MdhswrsoOkjdxxju06-95-2187tcbpktvgd, injectable, quadrivalent, preservative freeChristopher Prince DO Work Phone: noKindred HospitalWathfqjqkh82-23-4462zrysvwwby virus vaccine, unspecified formulationAnirudh Sears MD Work Phone: [facility] Work Phone: [phone] Bivalent Booster Vaccination Christopher Prince DO Work Phone: noKindred HospitalVnbzzoofqt00-90-1209Hfkfkq Bivalent Booster 12 Years And OlderChristopher Prince DO Work Phone: nocloudswave Cnbmgqhdjn57-35-4717Iuxtsa COVID-19 vaccine, bivalent, age 12 years and older (30 mcg/0.3 mL)Anirudh Sears MD Work Phone: [facility] Work Phone: [phone]h, injectable, quadrivalent, preservative freeAnirudh Sears MD Work Phone: [facility] Work Phone: [phone] Newman Cap CHSK-VsN-0Ldmh Arora MD Work Phone: [facility] Work Phone: [phone]-SyvHIxlq COVID-19 Vacc 30 MCG/0.3ML Intramuscular SuspensionNael Farias Work Phone: [phone]-CohylSt. [facility]S [facility] 3 DO Work Phone: [phone], mumps and rubella virus vaccine Nael Farias Work Phone: [phone]-IrknaSt. Luke'S Hospital 3 DO Work Phone: Payers DatePayer CategoryPayerPolicy [id number] [id number] 2022Medicare (Managed Care) [id number] 2..840.1.763823.3.57[id number] 2..840.1.707705.3.579.[id number] 2..840.1.613629.3.579.2.3[id number] 2.16.840.1.507628.3.579.2.82136-00-3900Xpktfep2581984 2.16.840.1.562625.3.579.[id number] 2.16.840.1.431679.3.579.2.20018-78-5223Pmjvrpq2576112 2.16.840.1.514350.3.579.2.73255-73-2197Kgaucoq7999508 2.16.840.1.759184.3.579.2.41013-69-2612Qtobyfq2404311 2..840.1.553044.3.579.2.43775-72-0811Sdpumth1446772 2..840.1.255661.3.579.2.34829-15-5940Ghzonbg0352495 2..840.1.516307.3.579.2.81459-75-4366Qzqukbe39902720 2..840.1.030658.3.579.2.630792-04-2373Iibzjds411111360 2..840.1.775593.3.579.2.72365-73-7300Gkawpnm248584992 2..840.1.960613.3.579.2.34094-00-6439Lpxicqj953937141 2..840.1.796402.3.579.2.90462-94-1533Imlzaal578551672 2..840.1.279134.3.579.2.70671-31-4950Ytfqwyt116494344 2.16.840.1.834447.3.579.2.91115-28-1716Hifzraz234195746 2.16.840.1.977424.3.579.2.76690-40-0676Buvqbwg240682334 2.16.840.1.736286.3.579.2.80785-39-6964Cxgzael372619392 2.16.840.1.909760.3.579.2.758399-46-5554Pztnscq713533108 2.16.840.1.377813.3.579.2.733699-07-3779Mstuuvx75078096 2..840.1.842499.3.579.2.202952-26-3259Gyeuxms899982166 2.840.1.750010.3.579.2.855175-29-0954Yomcahp543815424 2.840.1.556847.3.579.2.481915-05-3779Gpmpyoy231800340 2.840.1.690168.3.579.2.681723-15-5365Tdbirbd935112377 2.840.1.909713.3.579.2.572193-13-8248Kgtpugp948026144 2.840.1.773695.3.579.2.409680-92-7955Gbywsdz25039421 2.840.1.753824.3.579.2.156577-48-9692Dvtymak02392452 2.840.1.195371.3.579.2.412037-18-0507Jcifumu31412366 2.840.1.652821.3.579.2.799776-54-2734Cyhiqap1892795 2..840.1.225372.3.579.2.869115-91-7133Xojvasp8753535 2.840.1.875390.3.579.2.334718-52-9383Nzuqrvq6931128 .16.840.1.838183.3.579.2.1259 [id number] [facility] [id number] [id number]-xs89-8837-u57c-yy2c91j6[id number] 86056t8l-1z2l-2qv3-798x-0hlj6327mt72PdfkhjvDxcvlc /JIUMFUD0636879 g7jido84-8812-3d55-0f4[id number] .16.840.1.424827.3.579.2.531 Social History DateTypeDetailFacilityStart: 08-13-2023 End: 45-72-0403Chzav a smokerNever a smokerMCKAY-DEE [facility] HealthcareStart: 10-71-1226H[facility] Hospitaltart: 07-16-2023 End: 78-24-2247Efjhwps smoking status NHISNever smoked tobaccoRiverview Health InstituteHistory of tobacco usePassive smokerUn[facility] Work Phone: Start: 07-16-2023 End: 93-91-3083Moxwwou use and exposureSmokeless tobacco non-userUnGerman Hospital Work Phone: Start: 08-13-2023 End: 83-93-4642Ozgvilb intakeLifetime non-drinker (finding)[facility] Work Phone: Start: 08-13-2023 End: 87-21-9393Xceoqdq use panelMCKAY-DEE HOSPITAL CENTER HealthcareStart: 04-97-7518Wzt Assigned At BirthNot on fileUnGerman Hospital Work Phone: Start: 08-03-2023 End: 16-03-6513Bcpahxql to SARS-CoV-2 (event)Not sureRiverview Health InstituteStart: 05-25-2024 End: 58-69-1254Sdtstdwvu beverage intakeEx-drinker (finding)[facility] Within the last year, have you been afraid of your partner or ex-partner?NoNOMS HealthcareAre you now , , , , never or living with a partner?MarriedNOMS HealthcareHow often to you have a drink containing alcohol?NeverNOMS HealthcareStart: 06-81-4306Doo many standard drinks containing alcohol do you have on a typical day?Patient does not drinkNOMS HealthcareDo you feel stress - tense, restless, nervous, or anxious, or unable to sleep at night because yourmind is troubled all the time - these days [OSQ] Very muchNOMS Healthcare(I/We) worried whether (my/our) food would run out before (I/we) got money to buy more.Never trueNOMS HealthcareStart: 04-09-2023 Alcohol CommentCaffeine intake: 1-2 cups per day sodaNOMS HealthcareStart: 04-17-2024 End: 00-08-7084Eidzqtqr to SARS-CoV-2 (event)Unable to assessRiverview Health InstituteHow hard is it for you to pay for the very basics like food, housing, medical care, and heatingNot very hardNOMS HealthcareDo you feel stress - tense, restless, nervous, or anxious, or unable to sleep at night because yourmind is troubled all the time - these days [OSQ]Rather muchNOMS HealthcareHow often do you need to have someone help you when you read instructions, pamphlets, or other written material from your doctor or pharmacy [SILS]RarelyNOMS HealthcareNEGATED: Highlighted row--ND-Chdohgdzjuzji-Fzzfmujt B102 Work Phone: Functional Status BdiyLfgqmimtfjHwizewCegvuerj47-83-0358Khpgosg Health Questionnaire 2 item (PHQ- 2) [Reported][facility] Fezeltadkc21-34-5275Wepxtof Health Questionnaire 2 item (PHQ- 2) [Reported][facility] HealthcareNEGATED: Highlighted rowFunctional performance Functional status health issues are not documented Disease KW-Wlvuohiebxpri-Xscqwsfi B102 Work Phone: Mental Status DateAssessmentResultFacilityNEGATED: Highlighted rowCognitive function [Interpretation]Cognitive status health issues are not documented Disease LP-Awjaawobunwne-Fypvzatf B102 Work Phone: Clinical Notes 09-06-2020 to 06-14-2025 Note Date & QsrnVyihCfuxaopj84-46-2324 Telephone encounter Note* Telephone Encounter - Nael Farias MD - 06/14/2025 10:48 AM EDT [facility] Miscellaneous Notes* Telephone Encounter - Nael Farias MD - 06/14/2025 10:48 AM EDT Prescription sent * Telephone Encounter - Elizabeth Clements MA - 06/14/2025 10:40 AM EDT Pt called and left a VM that he needs a refill if [facility]H wants him to keep on the spironolactone. I called and pt states he still swells a little but not nearly as much during the day as he was butwhen he goes to bed and gets up in the morning the swelling is completely gone. documented in this encounterFulton State HospitalTgrvlkgwhn39-89-1011 Telephone encounter Note* Telephone Encounter - Elizabeth Clements MA - 06/14/2025 10:40 AM EDT Pt called and left a VM that he needs a refill if [facility]H wants him to keep on the spironolactone. I called and pt states he still swells a little but not nearly as much during the day as he was butwhen he goes to bed and gets up in the morning the swelling is completely gone. [facility] HospitalSuvndpfvlq63-57-2112 History of Present illness Narrative* Nael Farias MD - 05/25/2025 9:00 AM EDT Images from the original note were not included. Patient ID: Katerina Danielle is a 64 y.o. male who presents for: Chronic Pain: Pt is here for follow-up of chronic pain related to back, hips, legs, muscle. Her/His pain is stable with the restricted and limited use of legs. Pain is usually 6/10, described as aching, sharp, andthrobbing and occurs continuously. He will only use the oxycodone intermittently when absolutely necessary to control his pain. He states he does not need any today. He also specifically noted that the gabapentin helps, but we had refilled it for him previously andhe has refills. He does need the baclofen refilled and does perceive some benefit from taking. He has more swellingin his ankle and gets a shooting pain up into his calf on the left side. He did have some popping afew days ago in the knee causing pain. Asthma Patient presents for evaluation of dyspnea and non-productive cough. The patient has been previously diagnosed with asthma. Symptoms currently include dyspnea, non-productive cough, and wheezing and occur continuously. Observed precipitants include: animal dander, dust, infection, pollens, smoke, and upper respiratory infection. Does he do nebulizer treatments? yes Does he use an inhaler? Yes, but states he does not needed frequently. Does he use a spacer with MDIs? no Does he monitor peak flow rates? yes What is his personal best peak flow rate: havent done it in a while Review of Systems Constitutional: Negative for activity change and fatigue. Respiratory: Negative for cough, shortness of breath and wheezing. Cardiovascular: Negative for chest pain, palpitations and leg swelling. Neurological: Negative for light-headedness and headaches. He is somewhat vague about it but he is complaining of swelling in his left leg more so than the right leg. He does not note it is better today than it has been over the past week. There was no trauma. He denies noting any redness. He just has some more tenderness throughout the leg region. Objective The patient is pleasant and in no acute distress The patient has good eye contact and clear speech He has trace edema is bilateral lower legs. It also does extend up into the thighs. On his left leghe has tenderness when I squeeze his calf but down in an near the Achilles tendon. He is complaining of tenderness to the posterolateral aspect of the ankle area. Because of his tenderness I did not directly palpate the distal Achilles tendon or insertion point. Upon squeezing the calf he did have plantar flexion of his foot. It is also of note that he has had previous plantar fascia surgeries onboth feet. 05/09/2025 1:45 PM 02/22/2025 10:53 AM 01/10/2025 1:35 PM 11/04/2024 9:29 AM Vitals BMI 37.03 kg/m2 35.94 kg/m2 35.94 kg/m2 37.03 kg/m2 BSA (m2) 2.51 m2 2.47 m2 2.47 m2 2.51 m2 Systolic 124 Diastolic 78 Heart Rate 103 92 SpO2 98 % 95 % Height (in) 6' 6' 6' 6' Weight (lb) 273 265 265 273 Visit Report Report Report Report Report Allergies Allergen Reactions Keflex [Cephalexin] Other Pain in the kidney area, unable to urinate Capsaicin Diarrhea Dapsone Other Reaction(s): nausea, chills, vomiting Levofloxacin Other Reaction(s): diarrhea Prochlorperazine Other Reaction(s): Hives nausea Sulfamethoxazole-Trimethoprim Other Reaction(s): Hives Voriconazole Sweating, insomnia, nausea. Current Outpatient Medications on File Prior to Visit Medication Sig Dispense Refill albuterol (2.5 MG/3ML) 0.083% nebulizer solution Take 3 mL (2.5 mg) by nebulization 4 (four) times a day as needed for wheezing or shortness of breath albuterol HFA 90 mcg/act inhaler Inhale 2 puffs every 4 (four) hours if needed for wheezing or shortness of breath 54 g 1 baclofen (Lioresal) 10 MG tablet Take by mouth; 1/2 tablet in the morning, 1/2 tablet at lunchtime,and 1 tablet in the evening. 180 tablet 1 calcitriol (Rocaltrol) 0.25 MCG capsule Take 0.25 mcg by mouth See administration instructions. TAKE 1 CAPSULE BY MOUTH ONCE DAILY ON WEEK AND 2 CAPSULES ONCE DAILY ON FRI. AND SUN. cetirizine (ZyrTEC) 10 MG tablet Take 10 mg by mouth Daily chlorhexidine (Peridex) 0.12 % solution Use 15 mL in the mouth or throat if needed for wound care cholecalciferol (Vitamin D-3) 250 MCG (37052 UT) capsule Take 1 capsule by mouth in the morning. Fluticasone-Salmeterol (Wixela Inhub) 500-50 MCG/ACT aerosol powder Inhale 1 puff Daily gabapentin (Neurontin) 100 MG capsule Take 1 capsule (100 mg) by mouth in the morning and in the evening 180 capsule 1 gabapentin (Neurontin) 300 MG capsule Take 1-2 [...] Administer 1-2 drops into both eyes Daily Potassium 99 MG tablet 1 (one) time each day at the same time. valsartan (Diovan) 160 MG tablet Take 160 mg by mouth Daily No current facility-administered medications on file prior to visit. 1. Chronic pain syndrome (Primary) Chronic problem, stable, multifactorial, with complex decision [...] to continue their activities of daily living. On further questioning we have previously filled and he does not need any refills on the gabapentinfor his narcotic for breakthrough severe pain. Actually he has been doing fairly well. The baclofenhas been refilled. 2. Moderate persistent asthma without complication (HCC) Chronic problem, stable, patient does not need any refills today continue to monitor longitudinally. 3. Drug-induced diffuse interstitial pulmonary fibrosis As above from his chemotherapy in stem cell transplants. 4. Morbid obesity ([facility]) Chronic problem that has actually worsening a bit. We discussed the importance of eliminating sugars minimizing simple carbohydrates in the have a formal exercise program. He tends to pick projects and then he overdoes it in his sore for days afterwards. 5. BMI 37.0-37.9, adult Defines the morbid obesity 6. Stage 3b chronic kidney disease ([facility]-HCC) - Basic metabolic panel; Future - Basic metabolic panel 7. Venous insufficiency I do think most of his problem is secondary to the venous insufficiency. He may have had a little bit of phlebitis in the lateral upper aspect of the calf. I do not think there is any formal DVT nor evidence requiring venous ultrasound although we did discuss this in a mutually agreed not to proceed. We are going to go ahead and add the spironolactone. He will give me a call back in 10-14 days with an update. We will also get the metabolic panel is noted above to ensure that his renal function electrolytes are stable. - spironolactone (Aldactone) 25 MG tablet; Take 1 tablet (25 mg) by mouth Daily Dispense: 30 tablet; Refill: 0 Please Note: Portions of this chart may have been created using voice recognition software. Occasionally a wrong-word or sound-like substitutions may have occurred due to inherent limitations of the voice recognition software. Please read the chart carefully and recognize, using context, where the substitutions may have occurred. documented in this encounterFulton State HospitalOclhvaabtt99-20-0177 History of Present illness Narrative* Nael Farias MD - 05/09/2025 1:45 PM EDT Images from the original note were not included. Patient ID: Katerina Danielle is a 64 y.o. male who presents for: Edema Patient complains of edema in the left ankle and foot and the left lower leg. The edema has been moderate. Onset of symptoms was 5 days ago, . The edema is present all day. The swelling has been aggravated by sitting for a long time with legs down, gave the example of at the races the other day. The swelling has been relieved by nothing. Associated factors include: shortness of breath and weight gain. Cardiac risk factors include hypertension, obesity (BMI >= 30 kg/m2), and sedentary lifestyle. He specifically notes it is better now than it was when he called. Review of Systems Constitutional: Negative for activity change and fatigue. Respiratory: Positive for shortness of breath. Negative for cough and wheezing. Cardiovascular: Positive for leg swelling. Negative for chest pain and palpitations. Neurological: Negative for light-headedness and headaches. Objective Upon 1st entering the room in looking at him he does seem more obese or fluid overloaded to me in general. Upon showing me his legs and noting specifically there much improved he really only has trace pitting edema. He does have some varicosities he notes these are about the same. He does not appear to have any edema around his hands or distal forearms. Auscultation of the lungs does demonstrate decreased breath sounds diffusely which is not unusual for him. No specific rhonchi, rales, wheezes were noted. The heart is distant but otherwise regular rate and rhythm. I could not identify any other heart sounds. 05/09/2025 1:45 PM 02/22/2025 10:53 AM 01/10/2025 1:35 PM 11/04/2024 9:29 AM Vitals BMI 37.03 kg/m2 35.94 kg/m2 35.94 kg/m2 37.03 kg/m2 BSA (m2) 2.51 m2 2.47 m2 2.47 m2 2.51 m2 Systolic 124 Diastolic 78 Heart Rate 103 92 SpO2 98 % 95 % Height (in) 6' 6' 6' 6' Weight (lb) 273 265 265 273 Visit Report Report Report Report Report Allergies Allergen Reactions Keflex [Cephalexin] Other Pain in the kidney area, unable to urinate Capsaicin Diarrhea Dapsone Other Reaction(s): nausea, chills, vomiting Levofloxacin Other Reaction(s): diarrhea Prochlorperazine Other Reaction(s): Hives nausea Sulfamethoxazole-Trimethoprim Other Reaction(s): Hives Current Outpatient Medications on File Prior to Visit Medication Sig Dispense Refill albuterol (2.5 MG/3ML) 0.083% nebulizer solution Take 3 mL (2.5 mg) by nebulization 4 (four) times a day as needed for wheezing or shortness of breath albuterol HFA 90 mcg/act inhaler Inhale 2 puffs every 4 (four) hours if needed for wheezing or shortness of breath 54 g 1 baclofen (Lioresal) 10 MG tablet Take by mouth; 1/2 tablet in the morning, 1/2 tablet at lunchtime,and 1 tablet in the evening. 180 tablet 1 calcitriol (Rocaltrol) 0.25 MCG capsule Take 0.25 mcg by mouth See administration instructions. TAKE 1 CAPSULE BY MOUTH ONCE DAILY ON AND 2 CAPSULES ONCE DAILY ON FRI. AND FRI. cetirizine (ZyrTEC) 10 MG tablet Take 10 mg by mouth Daily chlorhexidine (Peridex) 0.12 % solution Use 15 mL in the mouth or throat if needed for wound care cholecalciferol (Vitamin D-3) 250 MCG (16898 UT) capsule Take 1 capsule by mouth in the morning. Fluticasone-Salmeterol (Wixela Inhub) 500-50 MCG/ACT aerosol powder Inhale 1 puff Daily gabapentin (Neurontin) 100 MG capsule Take 1 capsule (100 mg) by mouth in the morning and in the evening 180 capsule 1 gabapentin (Neurontin) 300 MG capsule Take 1-2 [...] Administer 1-2 drops into both eyes Daily Potassium 99 MG tablet 1 (one) time each day at the same time. valsartan (Diovan) 160 MG tablet Take 160 mg by mouth Daily No current facility-administered medications on file prior to visit. 1. Edema of both legs (Primary) I discussed with him and he already has significant polypharmacy insignificant co-morbidities. We discussed the possibility of adding more medication in the form of a diuretic at but have mutually agreed to hold off since things are improving. I did discuss the importance with him of decreasing hiscarbohydrates and increasing his activity. 2. Drug-induced diffuse interstitial pulmonary fibrosis Chronic problem that appears to be stable but is a complicating factor in the diagnostic differential. 3. Moderate persistent asthma without complication (HCC) Chronic problem that appears to be stable but is a complicating factor in the diagnostic differential. 4. Systolic dysfunction Chronic problem that appears to be stable but is a complicating factor in the diagnostic differential. 5. Stage 3b chronic kidney disease (CMS-HCC) Chronic problem that appears to be stable but is a complicating factor in the diagnostic differential. Polypharmacy Chronic problem The patient meets the criteria for polypharmacy; 5 or more prescriptions or multi-morbidity definedas 5 or more diagnoses. Polypharmacy can significantly increase the risk of adverse drug events and negatively impact adherence. Consideration of factors such as clinician agreement, patient perspective, and de-prescribing,as appropriate can improve patient outcomes while simplifying care. This requires longitudinal monitoring as there is at least a moderate risk of morbidity and requires at least a moderate degree of evaluation and management. Please Note: Portions of this chart may have been created using voice recognition software. Occasionally a wrong-word or sound-like substitutions may have occurred due to inherent limitations of the voice recognition software. Please read the chart carefully and recognize, using context, where the substitutions may have occurred. documented in this encounterFulton State [id number] History of Present illness Narrative* Nael Farias MD - 02/22/2025 11:00 AM EDT Images from the original note were not included. Patient ID: Katerina Danielle is a 64 y.o. male who presents for: Chronic Pain: Pt is here for follow-up of chronic pain related to back, hips, legs, muscle. Her/His pain is stable with the restricted and limited use of legs. Pain is usually 6/10, described as aching, sharp, andthrobbing and occurs continuously. He will only use the oxycodone intermittently when absolutely necessary to control his pain. He states he does not need any today. He also specifically noted that the gabapentin helps, but we had refilled it for him previously andhe has refills. He does need the baclofen refilled and does perceive some benefit from taking. Asthma Patient presents for evaluation of dyspnea and non-productive cough. The patient has been previously diagnosed with asthma. Symptoms currently include dyspnea, non-productive cough, and wheezing and occur continuously. Observed precipitants include: animal dander, dust, infection, pollens, smoke, and upper respiratory infection. Does he do nebulizer treatments? yes Does he use an inhaler? Yes, but states he does not needed frequently. Does he use a spacer with MDIs? no Does he monitor peak flow rates? yes What is his personal best peak flow rate: havent done it in a while Review of Systems Constitutional: Negative for chills and fever. Respiratory: Positive for shortness of breath. Negative for cough and wheezing. Cardiovascular: Negative for chest pain and palpitations. Objective The patient is pleasant and in no acute distress. The neck is supple and trachea is midline. No masses are appreciated. The heart is regular rate and rhythm without S3, S4. No murmur. The patient has normal respiratory pattern. The breath sounds are symmetrical without evidence of rhonchi or rales. No wheezing. The skin is warm and dry. The lower extremities have trace edema. The patient has good eye contact and speech is clear. Appropriate affect. 02/17/2024 9:23 AM 03/23/2024 8:17 AM 05/10/2024 8:27 AM 05/25/2024 9:57 AM 08/23/2024 9:50 AM 11/04/2024 9:29 AM 01/10/2025 1:35 PM Vitals BMI 35.94 kg/m2 35.67 kg/m2 35.8 kg/m2 35.8 kg/m2 35.8 kg/m2 37.03 kg/m2 35.94 kg/m2 BSA (m2) 2.47 m2 2.46 m2 2.47 m2 2.47 m2 2.47 m2 2.51 m2 2.47 m2 Systolic 128 148 124 Diastolic 80 97 78 Heart Rate 62 64 66 92 SpO2 98 % 95 % 97 % 95 % Resp 16 Height (in) 6' 6' 6' 6' 6' 6' 6' Weight (lb) 265 263 264 264 264 273 265 Visit Report Report Report Report Report Report Report Report Allergies Allergen Reactions Capsaicin Diarrhea Dapsone Other Reaction(s): nausea, chills, vomiting Levofloxacin Other Reaction(s): diarrhea Prochlorperazine Other Reaction(s): Hives nausea Sulfamethoxazole-Trimethoprim Other Reaction(s): Hives Current Outpatient Medications on File Prior to Visit Medication Sig Dispense Refill albuterol (2.5 MG/3ML) 0.083% nebulizer solution Take 3 mL (2.5 mg) by nebulization 4 (four) times a day as needed for wheezing or shortness of breath albuterol HFA 90 mcg/act inhaler Inhale 2 puffs every 4 (four) hours if needed for wheezing or shortness of breath baclofen (Lioresal) 10 MG tablet Take by mouth; 1/2 tablet in the morning, 1/2 tablet at lunchtime,and 1 tablet in the evening. 60 tablet 0 calcitriol (Rocaltrol) 0.25 MCG capsule Take 0.25 mcg by mouth See administration instructions. TAKE 1 CAPSULE BY MOUTH ONCE DAILY ON WEEKDAYS AND 2 CAPSULES ONCE DAILY ON SAT. AND SUN. cetirizine (ZyrTEC) 10 MG tablet Take 10 mg by mouth Daily cholecalciferol (Vitamin D-3) 250 MCG (43357 UT) capsule Take 1 capsule by mouth in the morning. Fluticasone-Salmeterol (Wixela Inhub) 500-50 MCG/ACT aerosol powder Inhale 1 puff Daily gabapentin (Neurontin) 100 MG capsule Take 1 capsule (100 mg) by mouth in the morning and in the evening (Patient taking differently: Take 100 mg by mouth 1 (one) time each day) 180 capsule 1 gabapentin (Neurontin) 300 MG capsule Take 1-2 [...] Administer 1-2 drops into both eyes Daily Potassium 99 MG tablet 1 (one) time each day at the same time. valsartan (Diovan) 160 MG tablet Take 160 mg by mouth Daily No current facility-administered medications on file prior to visit. 1. Moderate persistent asthma without complication (HCC) He did note that is HF phase are low and and we will replace. - albuterol HFA 90 mcg/act inhaler; Inhale 2 puffs every 4 (four) hours if needed for wheezing or shortness of breath Dispense: 54 g; Refill: 1 2. Drug-induced diffuse interstitial pulmonary fibrosis Chronic problem which is also a component of his dyspnea secondary to his previous cancer treatments. 3. Chronic pain syndrome Chronic problem that is stable except where when he gets the actual spasms. These cause increased pain and he has to pause and try and stretch the muscles back out. He does note benefit from the baclofen. - gabapentin (Neurontin) 100 MG capsule; Take 1 capsule (100 mg) by mouth in the morning and in theevening Dispense: 180 capsule; Refill: 1 - gabapentin (Neurontin) 300 MG capsule; Take 1-2 capsules (300-600 mg) by mouth at bedtime Take 1 to 2 capsules in the evening Dispense: 180 capsule; Refill: 1 4. Spasm As above - gabapentin (Neurontin) 300 MG capsule; Take 1-2 capsules (300-600 mg) by mouth at bedtime Take 1 to 2 capsules in the evening Dispense: 180 capsule; Refill: 1 - baclofen (Lioresal) 10 MG tablet; Take by mouth; 1/2 tablet in the morning, 1/2 tablet at lunchtime, and 1 tablet in the evening. Dispense: 180 tablet; Refill: 1 5. Nausea (Primary) He gets some intermittent nausea ever since his chemotherapy. He has not had this refilled for sometime but is just about out. - ondansetron (Zofran) 4 MG tablet; Take 1 tablet (4 mg) by mouth every 8 (eight) hours if needed for nausea or vomiting for up to 7 days Dispense: 20 tablet; Refill: 0 documented in this encounterFulton State [id number] History of Present illness Narrative* Anirudh Sears MD - 02/10/2025 9:00 AM EDT Patient ID: Katerina Danielle is a 64 y.o. male. Subjective HPI Mr. Katerina Danielle is a 63 y/o M who presents for follow-up for his diffuse large b-cell, s/p CAR-T treatment. Most recent labs, creatinine stable at 1.69, no new cytopenias, LDH low at 207. He has had some improvement in muscle spasms since going to a chiropractor. He also notes increasednight sweats with chills and diarrhea, after having the stomach flu. Patient's past medical history, surgical history, family history and social history reviewed. Review of Systems: Review of Systems: Positive per HPI, otherwise negative. Objective BP 131/81 (BP Location: Right arm, Patient Position: Sitting) Pulse 90 Temp 36.4 C (97.5 F) (Temporal) Resp 16 Wt 124 kg (272 lb 4.3 oz) SpO2 95% BMI 36.93 kg/m Physical Exam Gen: appears well in clinic, NAD HEENT: atraumatic head, normocephalic, EOMI, conjunctiva normal LUNG: no increased WOB, CTAB CV: No JVD. RRR GI: soft, NT, ND LE: no LE edema Skin: no obvious rashes or lesions on visible skin Neuro: interactive, no focal deficits noted Psych: normal mood and affect Performance Status: Symptomatic; fully ambulatory Labs/Imaging/Pathology: personally reviewed reports and images in [employer] electronic medical record system. Pertinent results as it related to the plan represented in below in assessment and plan. Assessment/Plan 1. 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 Preparative regimen includes Fludarabine and Cyclophosphamide 04/27/24: Telephone visit -reviewed outside report of MRI cervical that reports marrow changes -We reviewed that the marrow changes seen on MRI are not concerning for recurrence of his lymphoma and are very much expected in the setting of prior chemotherapy and CAR-T cell therapy that he has gone through -No lytic lesions or masses or lymphadenopathy seen -No new cytopenia -No new B symptoms at this point he continues to have muscle spasms that I think are likely relatedto prior from prior treatments and recommendation would be for pain control and supportive care -Did discuss integrative health to think about medical massage and alternative methods along with pain management -He wishes to discuss further with neurology and we will keep his follow-up as scheduled in 08/16/24: - No evidence of any abnormalities to suggest recurrence. - He continues to have problems with muscle spasms and we discussed different alternatives for treatment. - However, what seems to help the most is apples and electrolytes, which he is going to continue. - At this point, we discussed, given he is 5 years out, he does not need regular follow up, but prefers to check in once a year - RTC in 1 year with labs 02/10/25: - No new cytopenias - We did discuss that he did have a GI bug and that likely was the reason for his new night sweats - We did review that he is over 5 years out and I would be ok for him to follow up with his PCP alone - He wishes to continue follow up in August - Lab request form printed today, to be done in [facility] - Black spasms now resolved with chiropractor - He knows to call with nay new symptoms - RTC in 6 months 2. Abdominal pain 3. Muscle cramps - likely also related to prior treatments vs unclear etiology, has seen neuro and pain management with no significant improvement in sx - onslow magnesium anywhere between 250-500 mg OTC - now improved with chiropractor 4. 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 Hypogammaglobulinemia: - on IVIG with Dr Cole, Much better sinus symptoms. 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 documented in this encounterUnGerman Hospital Work Phone: [phone] 471-491205-05-2025 Evaluation + Plan note* Assessment & Plan Note - Carolyn Morrison - 01/03/2025 10:57 AM EDTAssociated Problem(s): CVID (common variable immunodeficiency) Infusions are going well with no SE or infections x6 months. He had a GI viral illness since that started with profuse diarrhea and emesis but is improving. He will continue his Gammagard infusions as scheduled with quarterly blood work. [facility] Work Phone: [phone] Miscellaneous Notes* Assessment & Plan Note - Carolyn Morrison - 01/03/2025 10:57 AM EDTAssociated Problem(s): CVID (common variable immunodeficiency) Infusions are going well with no SE or infections x6 months. He had a GI viral illness since that started with profuse diarrhea and emesis but is improving. He will continue his Gammagard infusions as scheduled with quarterly blood work. * Assessment & Plan Note - Carolyn Morrison - 01/03/2025 10:56 AM EDTAssociated Problem(s): Asthma ACT 19. No flares or exacerbations and Sx are well-controlled on his medications. He will continue Wixela and albuterol as needed. documented in this encounterRiverview Health Institute Work Phone: [phone] Evaluation + Plan note* Assessment & Plan Note - Carolyn Morrison - 01/03/2025 10:56 AM EDTAssociated Problem(s): Asthma ACT 19. No flares or exacerbations and Sx are well-controlled on his medications. He will continue Wixela and albuterol as needed. [facility] Work Phone: [phone] History of Present illness Narrative* Sandra Cole MD - 01/03/2025 10:45 AM EDT Subjective Katerina Danielle is a 64 y.o. male who presents for Follow-up (Act 19). Chief Complaint Patient presents with Follow-up Act 19 Patient presents for F/U of asthma and CVID. Started IVIG 2018 and Gammagard 2-2-24 at [place]. Since last visit, 07-05-24, patient reports since last , he started having profuse, watery diarrhea and liquid emesis after everything he ate. He is unsure if he had food poisoning or a stomach flu. This morning, he was going to eat breakfast with his but decided not to due to persistent abdominal distress. Patient states his Gammagard infusions are going well. He denies SE or infections in the last 6 months despite being around his grandchildren. He is getting quarterly blood work. Patient is C/O persistent spasms and cramping in his hands, arms and legs where the lock up when heis working outdoors too much. His neurologist did a SERGEY and he has had other workup that have been unrevealing. He had a brain MRI that showed something on top of his tangirnaq and he was referred to Dr. Sears, Oncologist. Dr. Sears told him there was nothing concerning in the MRI and he likely had arthritis. His neurologist referred him to Pain Management who declined injections because of the infection risk at his neck. He recommended the patient return to his neurologist. He also C/O sciatic nerve pain and he saw a chiropractor. He felt significantly better and has been doing exercises daily . He wonders if this may be triggering his extremities and hand cramping. Patient is questioning the possibility he may have undiagnosed diabetes. He states he has gained weight because he is immobile and not happy with this. He changed his diet and now eating yogurt, salad and a meal at supper. He has never seen a measurement and verification engineer. He has an appointment with his PCP next month. Review of Systems Constitutional: Positive for unexpected weight change (unintentional weight gain). Gastrointestinal: Positive for diarrhea (resolved). Abdominal distress. Musculoskeletal: Positive for back pain (sciatic) and myalgias (spasms and cramping). Bilateral hand spasms and cramping. Objective BP 130/62 Ht 1.829 m (6') Wt 123 kg (271 lb) BMI 36.75 kg/m Physical Exam Constitutional: Appearance: Normal appearance. [...] Mood normal. Behavior: Behavior normal. Assessment/Plan Asthma ([facility]) ACT 19. No flares or exacerbations and Sx are well-controlled on his medications. He will continue Wixela and albuterol as needed. CVID (common variable immunodeficiency) Infusions are going well with no SE or infections x6 months. He had a GI viral illness since that started with profuse diarrhea and emesis but is improving. He will continue his Gammagard infusions as scheduled with quarterly blood work. By signing my name below, I, Marlene [...] exam, discussion and plan. documented in this encounterRiverview Health Institute Work Phone: [phone] Instructions* Patient Instructions* Carolyn Morrison - 01/03/2025 10:45 AM EDT Continue Wixela one inhalation two times a day and albuterol as needed. Continue Gammagard infusions at [place] as scheduled. Follow up in 6 months or sooner if symptoms worsen prior. documented in this encounterRiverview Health Institute Work Phone: [phone] History of Present illness Narrative* Nael Farias MD - 11/04/2024 9:30 AM EST Images from the original note were not included. Subjective : Chief Complaint: Katerina Danielle is an 63 y.o. male here for an annual wellness visit. I have reviewed and reconciled the history and medication list with the patient today. Current Outpatient Medications Medication Sig Dispense Refill albuterol (2.5 MG/3ML) 0.083% nebulizer solution Take 3 mL (2.5 mg) by nebulization 4 (four) times a day as needed for wheezing or shortness of breath albuterol HFA 90 mcg/act inhaler Inhale 2 puffs every 4 (four) hours if needed for wheezing or shortness of breath baclofen (Lioresal) 10 MG tablet Take by mouth; 1/2 tablet in the morning, 1/2 tablet at lunchtime,and 1 tablet in the evening. 180 tablet 1 calcitriol (Rocaltrol) 0.25 MCG capsule Take 0.25 mcg by mouth See administration instructions. TAKE 1 CAPSULE BY MOUTH ONCE DAILY ON WEEKDAYS AND 2 CAPSULES ONCE DAILY ON SAT. AND SUN. cetirizine (ZyrTEC) 10 MG tablet Take 10 mg by mouth Daily cholecalciferol (Vitamin D-3) 250 MCG (35352 UT) capsule Take 1 capsule by mouth in the morning. Fluticasone-Salmeterol (Wixela Inhub) 500-50 MCG/ACT aerosol powder Inhale 1 puff Daily gabapentin (Neurontin) 100 MG capsule Take 1 capsule (100 mg) by mouth in the morning and in the evening (Patient taking differently: Take 100 mg by mouth 1 (one) time each day) 180 capsule 1 gabapentin (Neurontin) 300 MG capsule Take 1-2 [...] Administer 1-2 drops into both eyes Daily Potassium 99 MG tablet 1 (one) time each day at the same time. valsartan (Diovan) 160 MG tablet Take 160 mg by mouth Daily No current facility-administered medications for this visit. Review of Systems unremarkable except as mentioned List of current healthcare providers: Patient Care Team: Nael Farias MD as PCP - General (Family Medicine) Nael Farias MD as PCP - Aranza Sears as Referring Physician (Oncology) Nohelia Machado DO as Referring Physician (Pulmonary Disease) Christopher Watkins MD as Referring Physician (Nephrology) Sandra Cole MD as Referring Physician (Allergy and Immunology) Medicare Annual Visit Health Risk Assessment Form Do you need help eating, bathing, using the toilet, dressing, or getting around your home?: No Can you prepare your own meals?: Yes Can you do your own housework without help?: Yes Can you shop for groceries or clothes without help?: Yes Do you exercise for about 20 minutes 3 or more days a week?: No How confident are you that you can control and manage most of your health problems?: Very confident Can you mange your money, credit cards and accounts, pay bills and taxes?: Yes Vision Screening: Not done Hearing Screening: Not done Cognitive Screening Self Assessment: No concerns rasied by family members, friends, or caretakers Three Word Registration: Leader, Season, Table Clock Drawing: Normal Clock - 2 Three Word Recall: 2/3 words correct - 2 Total Score (0-5 Points): 4 Advance Care Planning Do you have a living will?: No Do you have a medical power of supervisor spring up?: No Objective : BP 124/78 Pulse 92 Ht 6' Wt 273 lb SpO2 95% BMI 37.03 kg/m No results found. Physical Exam The patient is pleasant and in no acute distress. The head is normocephalic and atraumatic. Both eyes appear grossly normal without obvious lid pathology or icterus. Both ears hearing is grossly intact. The neck is supple and trachea is midline. No masses are appreciated. The anterior cervical lymphatics demonstrates shoddy bilateral nontender lymphadenopathy. There is no supraclavicular lymphadenopathy. The heart is regular rate and rhythm without S3, S4. No murmur. The patient has normal respiratory pattern. The breath sounds are diffusely decreased but symmetrical without evidence of rhonchi or rales. No wheezing. The skin is warm and dry. The lower extremities have trace to 1+ edema. Neurologic screening exam is nonfocal. The patient is alert. There is no overt gross evidence of cognitive impairment The patient has good eye contact and speech is clear. Appropriate affect. Assessment/Plan : The following health maintenance schedule was reviewed with the patient and provided in printed form in the after visit summary: Health Maintenance Topic Date Due Medicare Annual Wellness (AWV) 10/23/2024 Influenza Vaccine (1) 02/28/2025 (Originally 05/02/2024) Colorectal Cancer Screening 06/13/2032 1. Encounter for Medicare annual wellness exam (Primary) The patient is here for their Annual Medicare Wellness visit. Demographics were updated. Self-assessment was completed and reviewed. Past medical, family, and social history were updated. The medication list updated and reviewed by the doctor. A list of other current medical providers is established and updated. Time was spent discussing health maintenance issues, ordering testing as appropriate,and a schedule was reviewed regarding recommended screening. We discussed safety issues and fall risk. Depression screening was completed and addressed as appropriate. Fall screening was completed and addressed. Cognitive function was assessed by direct observation, cognitive screening as indicated, and assessment of ability to perform ADL's. The BMI and discussed. Major risk factors for chronic disease including family history were discussed. An after visit summary is made available to the patient 2. Advance directive discussed with patient Patient voluntarily agreed to discuss advance care planning at today's wellness visit. We discussed that an advance directive is a legal document that only goes into effect if the patient is incapacitated and unable to speak for themselves. This would help us to decide what care the patient would want. We discussed emergency treatments to keep the patient alive such as CPR, ventilator use and concept of comfort. We discussed how patients could make their wishes known through a living will, durable power of supervisor spring up for healthcare, or other advanced directives. We discussed telling [place] people about their advance and a copy will be kept in the EHR. I discussedthat they should also make me an emergency contact in their cell phone, and/or notify their POA that I have a copy of the advanced directives. 3. Encounter for screening for other disorder Mild depressive symptomatology. I think most of the responses are more secondary to pain and physical limitations than actual depression. 4. Screening for alcohol problem Negative alcohol screening 5. Screening for diabetes mellitus (DM) 6. Screening for lipid disorders 7. Morbid obesity (CMS/HCC) Chronic problem, unstable and slowly worsening. Briefly discussed limiting sugars and simple carbohydrates. 8. Acute non-recurrent maxillary sinusitis Acute problem, and the comorbidity of immunosuppression we have elected to treat. - cefuroxime (Ceftin) 500 MG tablet; Take 1 tablet (500 mg) by mouth in the morning and 1 tablet (500 mg) before bedtime. Do all this for 14 days. Dispense: 28 tablet; Refill: 0 9. 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 10. Secondary malignant neoplasm of spinal canal (CMS/HCC) Currently in remission and being monitored by Oncology. 11. 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 12. Secondary malignant neoplasm of spleen (CMS/HCC) Currently in remission and being monitored by Oncology. 13. Hypogammaglobulinemia (CMS/HCC) Chronic problem that has not comorbid condition with a stem-cell transplant. Monitored by Oncology. 14. Common variable immunodeficiency (CMS/HCC) Chronic problem that has not comorbid condition with a stem-cell transplant. Monitored by Oncology. 15. 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 Monitored by Oncology. 16. Stem cells transplant status (CMS/HCC) Chronic problem that is leading to the above diagnoses. 17. Drug-induced polyneuropathy (CMS/HCC) Chronic problem that has been related to the chemotherapy he received during the lymphoma. Currently being treated and monitored longitudinally. 18. 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) Chronic problem that has been related to the chemotherapy he received during the lymphoma. Currently being treated and monitored longitudinally. 19. Migraine without aura, intractable, with status migrainosus (CMS/HCC) Chronic problem, stable, monitor longitudinally. 20. Mixed hyperlipidemia (CMS/HCC) Chronic problem, patient declining statin therapy. Continue to monitor longitudinally. 21. Stage 3b chronic kidney disease (HCC) (CMS/HCC) Chronic problem that has been related to the chemotherapy he received during the lymphoma. Currently being treated and monitored longitudinally. Electronically signed by Nael Farias MD on November 04, 2024 documented in this encounterFulton State [id number] History of Present illness Narrative* Christopher Watkins MD - 10/19/2024 2:30 PM EST Katerina Cory Danielle 63 y.o. @WT@ [facility]/Room: [id number]/Room/bed info not found Subjective: The patient is [...] mg/3 mL nebulizer solution Inhale. artificial tears, mjnmaaz-hsyphba-mhamjqgd, 0.1-0.3-0.2 % ophthalmic solution Administer into affected eye(s) 4 times a day as needed. baclofen (Lioresal) 10 mg tablet Take 1 tablet (10 mg) by mouth 3 times a day. calcitriol (Rocaltrol) 0.25 mcg capsule TAKE 2 CAPSULES OVER THE WEEKENDS AND 1 CAPSULE THE OTHER DAYS 117 capsule 3 cetirizine (ZyrTEC) 10 mg tablet Take 1 tablet (10 mg) by mouth once daily. fluticasone propion-salmeteroL (Wixela Inhub) 500-50 mcg/dose diskus inhaler Inhale 1 puff 2 times a day. Rinse mouth with water after use to reduce aftertaste and incidence of candidiasis. Do not swallow. 180 each 2 lubricating eye drops (polyvinyl alcohol-povidon,PF,) ophthalmic solution [...] (Diovan) 80 mg tablet TAKE 1 TABLET BY MOUTH DAILY 90 tablet 3 cholecalciferol (Vitamin D3) 5,000 Units tablet Take 2 tablets (10,000 Units) by mouth once daily. gabapentin (Neurontin) 100 mg capsule Take 1 capsule (100 mg) by mouth 2 times a day. (Patient taking differently: Take 1 capsule (100 mg) by mouth once daily at bedtime.) No current facility-administered medications for this visit. ROS: The patient is awake and oriented. No dizziness or lightheadedness. No chills and no fever. No headaches. No nausea and no vomiting. No shortness of breath. No cough. No chest pain. No abdominal pain. No diarrhea. No hematemesis or hemoptysis. No hematuria. No rectal bleeding. No melena. No epistaxis. No urinary symptoms. No flank pain. No leg edema. No itching. Overall, the rest of the review ofsystems is also negative. 12 point review of systems otherwise negative as stated in HPI. Physical Examination: Vitals: 10/19/24 1424 BP: 145/88 Pulse: 80 General: The patient is awake, oriented, and is not in any distress. Head and Neck: Normocephalic. No periorbital edema. Eyes: non-icteric Respiratory: Symmetric chest expansion. No respiratory distress. Skin: No maculopapular rash. Musculoskeletal: No peripheral edema. Neuro Exam: Speech is fluent. Moves extremities. Imaging: === 07/27/19 === US RENAL COMPLETE - Impression - No hydronephrosis or suspicious renal masses or obstructing stones Blood Labs: No results found for this or any previous visit (from the past 24 hours). Lab Results Component Value Date PTH 65.5 [...] past few years. He is s/p autologus HSCT in December 2017. 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 He is getting IVIG. Last spot urine protein to creatinine ratio did not show significant proteinuria. Volume status is good. 2- Secondary hyperparathyroidism: He is on calcitriol. PTH level will be checked before the next appointment. 3. Hypertension. Blood pressure is on high side. I increased his valsartan dose. I will see him in about 4 months for follow-up. Christopher Watkins MD Senior Attending Physician Director of Onco-Nephrology Program Division of Nephrology & Hypertension [facility] documented in this [facility] Work Phone: [phone]) 552-657912-23-2024 History of Present illness Narrative* Nael Farias MD - 08/23/2024 10:00 AM EST Images from the original note were not included. Patient ID: Katerina Danielle is a 63 y.o. male who presents for: Chronic Pain: Pt is here for follow-up of chronic pain related to back, hips, legs, muscle. Her/His pain is stable with the restricted and limited use of legs. Pain is usually 8/10, described as aching, sharp, andthrobbing and occurs continuously. Pt states he saw a pain dr and he put him on a new medication and his BP bottomed out and it took 2 hours to recover. He will only use the oxycodone intermittently when absolutely necessary to control his pain. He states he does not need any today. He also specifically noted that the gabapentin helps, but we had refilled it for him previously andhe has refills. He does need the baclofen refilled and does perceive some benefit from taking. Asthma Patient presents for evaluation of dyspnea [...] Negative for activity change and fatigue. Respiratory: Negative for cough, shortness of breath and wheezing. Cardiovascular: Negative for chest pain, palpitations and leg swelling. Neurological: Negative for light-headedness and headaches. Objective The patient is pleasant and in no acute distress The patient does not appear to have a gross neurologic deficit. The patient has good eye contact and clear speech He has no spasm at the time of exam. He moves all 4 extremities purposely and symmetrically. He does have some hypertonicity in the bilateral Cervical paraspinal musculature. Decreased range of motion in all 4 directions. Mild decreased range of motion in right and left turning. Visit Vitals Pulse 66 Ht 6' Wt 264 lb SpO2 97% BMI 35.80 kg/m Smoking Status Never BSA 2.47 m PDMP reviewed, Nael Farias MD on 08/23/2024 11:14 AM Appears as expected. Allergies Allergen Reactions Capsaicin Diarrhea Dapsone Other Reaction(s): nausea, chills, vomiting Levofloxacin Other Reaction(s): diarrhea Prochlorperazine Other Reaction(s): Hives nausea Sulfamethoxazole-Trimethoprim Other Reaction(s): Hives Current Outpatient Medications on File Prior to Visit Medication Sig Dispense Refill baclofen (Lioresal) 10 MG tablet Take by mouth; 1/2 tablet in the morning, 1/2 tablet at lunchtime,and 1 tablet in the evening. 180 tablet 0 calcitriol (Rocaltrol) 0.25 MCG capsule Take 0.25 mcg by mouth See administration instructions. TAKE 1 CAPSULE BY MOUTH ONCE DAILY ON WEEKDAYS AND 2 CAPSULES ONCE DAILY ON SAT. AND SUN. cetirizine (ZyrTEC) 10 MG tablet Take 10 mg by mouth Daily cholecalciferol (Vitamin D-3) 250 MCG (57639 UT) capsule Take 1 capsule by mouth in the morning. Fluticasone-Salmeterol (Wixela Inhub) 500-50 MCG/ACT aerosol powder Inhale 1 puff Daily gabapentin (Neurontin) 100 MG capsule Take 1 capsule (100 mg) by mouth in the morning and in the evening 180 capsule 1 gabapentin (Neurontin) 300 MG capsule Take 1-2 [...] Administer 1-2 drops into both eyes Daily Potassium 99 MG tablet 1 (one) time each day at the same time. sildenafil (Revatio) 20 MG tablet Take 1 to 5 tablets as needed daily 90 tablet 1 valsartan (Diovan) 80 MG tablet Take 80 mg by mouth in the morning. [DISCONTINUED] tiZANidine (Zanaflex) 4 MG tablet Take 2 mg by mouth in the morning and 2 mg before bedtime. No current facility-administered medications on file prior to visit. 1. Spasm (Primary) Chronic problem. We have discussed and reviewed all the other doctors that he has seen including Neurology pain management in his oncology. No one seems to have a good answer for him. For now we will continue in an attempt to manage it. - baclofen (Lioresal) 10 MG tablet; Take by mouth; 1/2 tablet in the morning, 1/2 tablet at lunchtime, and 1 tablet in the evening. Dispense: 180 tablet; Refill: 1 2. Chronic pain syndrome Chronic problem, stable, multifactorial, [...] to continue their activities of daily living. 3. Drug-induced polyneuropathy (CMS/HCC) Chronic problem, stable, secondary to his previous chemotherapy. 4. Moderate persistent asthma without complication (CMS/HCC) It turns out this is actually being managed by 1 of his cancer doctors. Updating the medical record. - albuterol (2.5 MG/3ML) 0.083% nebulizer solution; Take 3 mL (2.5 mg) by nebulization 4 (four) times a day as needed for wheezing or shortness of breath - albuterol HFA 90 mcg/act inhaler; Inhale 2 puffs every 4 (four) hours if needed for wheezing or shortness of breath documented in this encounterFulton State [id number] History of Present illness Narrative* Anirudh Sears MD - 08/16/2024 10:40 AM EST Patient ID: Katerina Danielle is a 63 y.o. male. Subjective HPI Mr. Katerina Danielle is a 63 y/o M who presents for follow-up for his diffuse large b-cell, s/p CAR-T treatment. Blood work from outside hospital shows no new cytopenias and creatine 1.78. Patient is not using NSAID or Aleve. He uses Tylenol and valsartan daily. Patient reports persistent pain, musclespasms, and cramping. He states he is unable to exercise because, within an hour, his hands lock up, and he experiences spasms in his legs. He notes that eating apples and having electrolytes seem tohelp with muscle spasms. He reports irregular bowels and difficulty sleeping. Patient's past medical history, surgical history, family history and social history reviewed. Review of Systems: Review of Systems: Positive per HPI, otherwise negative. Objective BP 146/78 Pulse 68 Temp 35.6 C (96.1 F) Resp 18 Wt 121 kg (266 lb 8.6 oz) SpO2 94% BMI 36.15 kg/m Physical Exam Gen: appears well in clinic, NAD HEENT: atraumatic head, normocephalic, EOMI, conjunctiva normal LUNG: no increased WOB, CTAB CV: No JVD. RRR GI: soft, NT, ND LE: no LE edema Skin: no obvious rashes or lesions on visible skin Neuro: interactive, no focal deficits noted Psych: normal mood and affect Performance Status: Symptomatic; fully ambulatory Labs/Imaging/Pathology: personally reviewed reports and images in [employer] electronic medical record system. Pertinent results as it related to the plan represented in below in assessment and plan. Assessment/Plan 1. 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 Preparative regimen includes Fludarabine and Cyclophosphamide 04/27/24: Telephone visit -reviewed outside report of MRI cervical that reports marrow changes -We reviewed that the marrow changes seen on MRI are not concerning for recurrence of his lymphoma and are very much expected in the setting of prior chemotherapy and CAR-T cell therapy that he has gone through -No lytic lesions or masses or lymphadenopathy seen -No new cytopenia -No new B symptoms at this point he continues to have muscle spasms that I think are likely relatedto prior from prior treatments and recommendation would be for pain control and supportive care -Did discuss integrative health to think about medical massage and alternative methods along with pain management -He wishes to discuss further with neurology and we will keep his follow-up as scheduled in 08/16/24: - No evidence of any abnormalities to suggest recurrence. - He continues to have problems with muscle spasms and we discussed different alternatives for treatment. - However, what seems to help the most is apples and electrolytes, which he is going to continue. - At this point, we discussed, given he is 5 years out, he does not need regular follow up, but prefers to check in once a year - RTC in 1 year with labs 2. Abdominal pain 3. Muscle cramps - likely also related to prior treatments vs unclear etiology, has seen neuro and pain management with no significant improvement in sx - advised to start slow magnesium anywhere between 250-500 mg OTC - now improving with OTC med, will discus further pCP 4. 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 Vison changes - Likely also related to prior treatments - At this point, we did discuss that he could benefit from further evaluation with another project management instructor. Patient will consider 6. Hypogammaglobulinemia: - Restarted [...] 2 mo RTC in 1 year with labs. This note has been transcribed using a senior medical director and there is a possibility of unintentional typing misprints. 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 - Clinic Appointment Request; Future - CBC and Auto Differential; Future - Comprehensive metabolic panel; Future - Lactate dehydrogenase; Future Hypogammaglobulinemia (Multi) - Clinic Appointment Request Follow up Anirudh Sears MD Hematology/Oncology [facility] Scribe Attestation By signing my name below, IKristie , Scribe attest that this documentation has been prepared under the direction and in the presence of Anirudh Sears MD. Time Spent Prep time on day of patient encounter: 5 minutes Time spent directly with patient, family or caregiver: 25 minutes Additional Time Spent on Patient Care Activities: 5 minutes Documentation Time: 5 minutes Other Time Spent: 0 minutes Total: 40 minutes documented in this encounterRiverview [facility] Institute Work Phone: 1(657) 615-469111-04-2024 History of Present illness Narrative* Sandra Cole MD - 07/05/2024 10:45 AM EST Subjective Katerina Danielle is a 63 y.o. male who presents for Follow-up (ACT 19). Chief Complaint Patient presents with Follow-up ACT 19 Patient presents for F/U of asthma and CVID. Started Gammagard 10-03-23 at [place]. Started IVIG in 2018. At that time he received home health out of [place] to come to his home for administration. He would experience flulike symptoms with headache drainage and GI upset that would take him approximately a week to recover from. Therefore he discontinued treatment. He was then started on HyQvia around March 2021. He was changed to IVIG at [place] [facility] due to cost. Since last visit, 01-05-24, [...] work ordered Jun [address] Watkins, Docent Coordinator. He had an MRI of his head showed an abnormality he saw Dr. Sears for. She thinks it was all arthritic and told patient no need marshall concern. He has arthritis in his knees, shoulders and and elbows. He was told shots may be givenin his neck. He was taking baclofen for his nerve but was switched to something else that caused hot flashes and disrupted his sleep. He called his physician who recommended he return to baclofen. Ilda lock, started eating an apple a day and [...] Mood normal. Behavior: Behavior normal. Assessment/Plan Asthma ([facility]) ACT is 19. He is doing well [...] quarterly By signing my name below, I, Ronny [...] exam, discussion and plan. documented in this encounterUnGerman Hospital Work Phone: 1(188) 710-979611-04-2024 Instructions* Patient Instructions* Carolyn Morrison - 07/05/2024 10:45 AM EST Continue Wixela one inhalation two times a day. Continue Gammagard infusions at [facility] as scheduled. Follow up in 6 months or sooner if symptoms worsen prior.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 Bone marrow biopsy was done which was negative for involvement with lymphoma . He also underwent an LP with low yield. Because of his meningeal enhancement and location close to LASER BEAM CUTTER, he was treated with hyperCVAD-MA. He received [...] The cells demonstrate a Ki-67 proliferation fraction of50%.The main differential diagnosis includes a cyclin D1 [...] chain stains and molecular studies are pending tohelp in the classification of the process. Clinical correlation is suggested. The current biopsy was compared to this patient's previous biopsy ([id number]). The previous biopsydemonstrated areas of necrosis and apoptosis with cells that are more clearly large cells, featuresnot seen, or clearly identified, in the current [...] TP53 mutations. The patient was enrolled on [id number], Venetoclax+RICE. Cycle 1 started 10/29/17. Had tumor [...] pneumonitis. The patient was recently readmitted to [facility] (06/16-06/18/18) for fever and PNA. 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 He completed by mouth Levaquin. The patient was admitted to [facility] (08/18-08/21/18) with a new PE. He was started on renally dosed Lovenox. He reported bruising with some bleeding at the site of his Lovenox injections. He feels thatthe Lovenox made his pelvic pain worse. He was not willing to take further Lovenox and discontinuedhis injections (without discussion with our office) as of 08/31/18. He then was prescribed Xarelto and was only taking this intermittently because of headaches. 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 He initiated therapy on clinical research trial ADCT 1418. He was scheduled to receive C3 (09/04/18) but unable due to a persistently elevated GGT. CAR T Cell infusion 01/04/19 with tisagenlecleucel ([facility]) with preparative regimen of fludarabine and cytoxan. [...] Labs/Imaging/Pathology: personally reviewed reports and images in [facility] electronic medical record system. Pertinent results as it related to the plan represented in below in assessment and plan. Assessment/Plan 1. 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 Patient will consider 6. Hypogammaglobulinemia: - Restarted [...] This note has been transcribed using a senior medical director and there is a possibility of unintentional typing misprints. Diagnoses and all orders for this visit: Hypogammaglobulinemia (CMS/HCC) - CBC and Auto Differential; Future - Comprehensive Metabolic Panel; Future - Lactate dehydrogenase; Future - Clinic Appointment Request Follow up; Future Anirudh Sears MD Hematology/Oncology [facility] Scribe Attestation By signing my name below, IBernarda Ronny Noe attest that this documentation has been prepared under the direction and in the presence of Anirudh Sears MD. documented in this [facility] Work Phone: 1(646) 537-595706-22-2023 History of Present illness Narrative* OPIOID * Opioid Risk Screening: * Opioid Risk Tool * Last opioid risk screening date/ordered today: 02/20/23 * Patient's total score is 0, within range of Low Risk (<= 3). * This 62 year old male here for evaluation of generalized cramping. The patient has been experiencing these symptoms for last 5 years. The patient describes the pain as aching and tight. The patient'scurrent pain score is 4 on a scale from 0-10. The pain is worsened by cramping and is alleviated bywalk and medications for cramp. Since the start of the symptoms the pain has been worsening. * The patient denies any fever, chills, weight loss, weakness, numbness, bladder/ bowel incontinence,history of IV drug abuse, recent trauma. -Pain Management-[facility] Work Phone: [phone]) 247-566606-22-2023 History of Present illness Narrative* OPIOID * Opioid Risk Screening: * Opioid Risk Tool * Last opioid risk screening date/ordered today: 02/20/23 * Patient's total score is 0, within range of Low Risk (<= 3). * This 62 year old male here for evaluation of generalized cramping. The patient has been experiencing these symptoms for last 5 years. The patient describes the pain as aching and tight. The patient'scurrent pain score is 4 on a scale from 0-10. The pain is worsened by cramping and is alleviated bywalk and medications for cramp. Since the start of the symptoms the pain has been worsening. * The patient denies any fever, chills, weight loss, weakness, numbness, bladder/ bowel incontinence,history of IV drug abuse, recent trauma. [facility] Work Phone: 1([phone]) 124-856906-22-2023 History of Present illness Narrative* OPIOID * Opioid Risk Screening: * Opioid Risk Tool * Last opioid risk screening date/ordered today: 02/20/23 * Patient's total score is 0, within range of Low Risk (<= 3). * This 62 year old male here for evaluation of generalized cramping. The patient has been experiencing these symptoms for last 5 years. The patient describes the pain as aching and tight. The patient'scurrent pain score is 4 on a scale from 0-10. The pain is worsened by cramping and is alleviated bywalk and medications for cramp. Since the start of the symptoms the pain has been worsening. * The patient denies any fever, chills, weight loss, weakness, numbness, bladder/ bowel incontinence,history of IV drug abuse, recent trauma. [facility] Work Phone: 1([phone]) [phone] History of Present illness Narrative* Patient was last here, 12/28/2021 and he [...] that point, PCP referred patient to a Community Health Nurse at [facility]. * He saw Nohelia Machado DO, Community Health Nurse at [facility], did a breathing test and ordered a CXR. He was Dxdwith a lung disease and started on Arnuity. * Patient thinks he had his labs ordered here last visit. Patient has blood work due and routine labsand questions if he can have his IgG level done at that time. * Patient's HyQvia infusions every 28 days are going well but he does have bloating and tenderness after. [facility] DO Work Phone: [phone]) [phone] History of Present illness Narrative* Patient was last here, 12/28/2021 and he [...] that point, PCP referred patient to a Community Health Nurse at [facility]. * He saw Nohelia Machado DO, Community Health Nurse at [facility], did a breathing test and ordered a CXR. He was Dxdwith a lung disease and started on Arnuity. * Patient thinks he had his labs ordered here last visit. Patient has blood work due and routine labsand questions if he can have his IgG level done at that time. * Patient's HyQvia infusions every 28 days are going well but he does have bloating and tenderness after. OV-Ltppplnugu-Ftbdvyzu 2100 DO Work Phone: 1(512) 695-876109-20-2021 History of Present illness Narrative* Patient was last here, 05/21/2021. * Patient states he is doing well on HyQvia. He reports he bruised his right lower abdomen with the needle. He uses a heating pad during and after infusions. He has been doing infusions in the evening.He has intermittent sensation of abdominal fullness and burning when waking that resolves in a few days. * His breathing is variable depending on season. He has intermittent wheeze even just sitting. If he overexerts himself, it is no better and sweats profusely to the point his shirt is drenched. He has to limit himself to 2 hours of exercising. He has gained weight due to limitations and is hoping weight loss helps. He does not use his albuterol. * He saw Dr. Watkins 11/08/2021 who ordered labs. His next appointment is 03/12/2022. * He takes methocarbamol for sciatic nerve pain provided by PCP. * He will have his second COVID booster Friday. * . IR-Cgjevyprxm-Fjxhzjbv 2100 DO Work Phone: 1([phone] 162-805209-20-2021 History of Present illness Narrative* Patient was last here, 05/21/2021. * Patient states he is doing well on HyQvia. He reports he bruised his right lower abdomen with the needle. He uses a heating pad during and after infusions. He has been doing infusions in the evening.He has intermittent sensation of abdominal fullness and burning when waking that resolves in a few days. * He has had a dramatic decrease in infections. He is doing well from that standpoint. he is tolerating the infusions * His breathing is variable depending on season. He has intermittent wheeze even just sitting. If he overexerts himself, it is no better and sweats profusely to the point his shirt is drenched. He has to limit himself to 2 hours of exercising. He has gained weight due to limitations and is hoping weight loss helps. He does not use his albuterol. * He saw Dr. Watkins 11/08/2021 who ordered labs. His next appointment is 03/12/2022. * He takes methocarbamol for sciatic nerve pain provided by PCP. * He will have his second COVID booster Friday. * . OK-Qucahqmujq-Fobvhmbo 2100 DO Work Phone: [phone]) 316-434001-06-2021 History of Present illness Narrative* Since last visit, 09/06/2020, patient reports * He had his labs done at [facility] 2 weeks ago and he requested results be sent to [place] and here. Dr. Sears told her the labs were normal. Dr. Watkins said he would advise of any abnormal labs, but he never called him. * He noticed onset of bumps after HyQvia S/P infusion by nurse March 2021. Since then, he does them himself but the last few months and concerned of possible hernia because they get larger. He also feltextremely bloated. He was told to apply moist heat prior to infusion, which helped with the morgan and soreness. He pretreats with prednisone. He extends the infusion time to avoid the burning that occurs with infusing too rapidly. * He takes a potassium pill for hand cramping so severe at times, his wanted to call EMS. Dr. Sears told him to take magnesium. * He does get headaches. * He c/o abdominal pain attributed to transplant in 2018. * He has not been ill after Gamunex in Oct other than a cold in March that took a month to resolve. * He got his COVID vaccine. * In 2015, he had a sphenoid mass that turned out to be a large B cell lymphoma S/P * . RR-Ealtsvdepf-Zhqxflgp 2100 DO Work Phone: Evaluation noteNo assessment information available [facility] Work Phone: Evaluation note* Diagnosis Hypogammaglobulinemia (CMS/HCC) Unspecified hypogammaglobulinemia documented in this encounter [facility] Work Phone: Evaluation note* Diagnosis Hypogammaglobulinemia (CMS/HCC)- Primary Unspecified hypogammaglobulinemia CVID (common variable immunodeficiency) (CMS/HCC) Common variable immunodeficiency documented in this encounter [facility] Work Phone: Evaluation note* Diagnosis Stage 3b chronic kidney disease (CMS/HCC)- Primary Essential hypertension Unspecified essential hypertension Hyperparathyroidism, secondary (CMS/HCC) documented in this encounter [facility] Work Phone: Evaluation note* Diagnosis Asthma, unspecified asthma severity, unspecified whether complicated, unspecified whether persistent ([facility])- Primary CVID (common variable immunodeficiency) (Multi) Common variable immunodeficiency documented in this encounter [facility] Work Phone: Evaluation note* Diagnosis Onset Date Resolution Status B-cell lymphoma acuteDDD (degenerative disc disease), cervicalacuteMuscle spasmacuteOther chronic painacute [facility] Work Phone: Evaluation note* Diagnosis Chronic pain syndrome 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 Spasm Abnormal involuntary movements Moderate persistent asthma without complication (CMS/HCC) Morbid obesity (CMS/HCC) Morbid obesity BMI 35.0-35.9,adult documented in this encounter [facility] HealthcareEvaluation note* Diagnosis Hypogammaglobulinemia (Multi)- Primary Unspecified hypogammaglobulinemia CVID (common variable immunodeficiency) Common variable immunodeficiency Asthma, unspecified asthma severity, unspecified whether complicated, unspecified whether persistent (HHS-HCC)- Primary CVID (common variable immunodeficiency) Common variable immunodeficiency Stage 3b chronic kidney disease (Multi)- Primary Essential hypertension Unspecified essential hypertension Hyperparathyroidism, secondary (Multi) documented in this encounter [facility] Work Phone: Evaluation note* Diagnosis Onset Date Resolution Status B-cell lymphoma acuteDDD (degenerative disc disease), cervicalacuteMuscle spasmacuteOther chronic painacuteB-cell lymphomaacuteDDD (degenerative disc disease), cervical acuteMuscle spasmacuteOther chronic painacute [facility] Work Phone: Evaluation note* Diagnosis Hypogammaglobulinemia (Multi)- Primary Unspecified hypogammaglobulinemia CVID (common variable immunodeficiency) Common variable immunodeficiency Asthma, unspecified asthma severity, unspecified whether complicated, unspecified whether persistent (HHS-HCC)- Primary CVID (common variable immunodeficiency) Common variable immunodeficiency CVID (common variable immunodeficiency)- Primary Common variable immunodeficiency Asthma, unspecified asthma severity, unspecified whether complicated, unspecified whether persistent (HHS-HCC) documented in this encounter [facility] Work Phone: Evaluation note* Diagnosis Hypogammaglobulinemia (Multi)- Primary Unspecified hypogammaglobulinemia CVID (common variable immunodeficiency) Common variable immunodeficiency Asthma, unspecified asthma severity, unspecified whether complicated, unspecified whether persistent ([facility]HS-HCC)- Primary CVID (common variable immunodeficiency) Common variable immunodeficiency CVID (common variable immunodeficiency)- Primary Common variable immunodeficiency Asthma, unspecified asthma severity, unspecified whether complicated, unspecified whether persistent (HHS-HCC) 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- Primary Hypogammaglobulinemia (Multi) Unspecified hypogammaglobulinemia documented in this encounter [facility] Work Phone: Evaluation note* Diagnosis Hypogammaglobulinemia (Multi)- Primary Unspecified hypogammaglobulinemia CVID (common variable immunodeficiency) (Multi) Common variable immunodeficiency Asthma, unspecified asthma severity, unspecified whether complicated, unspecified whether persistent (HHS-HCC)- Primary CVID (common variable immunodeficiency) (Multi) Common variable immunodeficiency 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 (Multi)- Primary Hypogammaglobulinemia (Multi) Unspecified hypogammaglobulinemia documented in this encounter [facility] Work Phone: Evaluation note* Diagnosis Cervical radiculopathy- Primary Brachial neuritis or radiculitis nos Multilevel degenerative disc disease Chronic pain syndrome 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 Moderate persistent asthma without complication (CMS/HCC) Morbid obesity (CMS/HCC) Morbid obesity BMI 35.0-35.9,adult documented in [facility] encounter [facility]* Diagnosis Spasm Abnormal involuntary movements Chronic pain syndrome documented in this encounter [facility]* Diagnosis Spasm- Primary Abnormal involuntary movements Chronic pain syndrome 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 Moderate persistent asthma without complication (CMS/HCC) documented [facility]* Diagnosis Hypogammaglobulinemia (Multi)- Primary Unspecified hypogammaglobulinemia CVID (common variable immunodeficiency) Common variable immunodeficiency Asthma, unspecified asthma severity, unspecified whether complicated, unspecified whether persistent (HHS-HCC)- Primary CVID (common variable immunodeficiency) Common variable immunodeficiency CVID (common variable immunodeficiency)- Primary Common variable immunodeficiency Asthma, unspecified asthma severity, unspecified whether complicated, unspecified whether persistent (HHS-HCC) Stage 3b chronic kidney disease (Multi)- Primary Essential hypertension Unspecified essential hypertension Hyperparathyroidism, secondary (Multi) Diffuse large B-cell lymphoma, unspecified body region (Multi) documented in this encounter [facility] Work Phone: Evaluation note* Diagnosis Encounter for Medicare annual wellness exam- Primary Advance directive discussed with patient Encounter for screening for other disorder Screening for alcohol problem Screening for alcoholism Screening for diabetes mellitus (DM) Screening for diabetes mellitus Screening for lipid disorders Morbid obesity (CMS/HCC) Morbid obesity Acute non-recurrent maxillary sinusitis 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 (CMS/HCC) 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) Hypogammaglobulinemia (CMS/HCC) Unspecified hypogammaglobulinemia Common variable immunodeficiency (CMS/HCC) Common variable immunodeficiency 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) Stem cells transplant status (CMS/HCC) 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) Migraine without aura, intractable, with status migrainosus (CMS/HCC) Mixed hyperlipidemia (CMS/HCC) Mixed hyperlipidemia Stage 3b chronic kidney disease (HCC) (CMS/HCC) documented in this encounter [facility] HealthcareEvaluation note* Diagnosis Hypogammaglobulinemia (Multi)- Primary Unspecified hypogammaglobulinemia CVID (common variable immunodeficiency) Common variable immunodeficiency Asthma, unspecified asthma severity, unspecified whether complicated, unspecified whether persistent (HHS-HCC)- Primary CVID (common variable immunodeficiency) Common variable immunodeficiency CVID (common variable immunodeficiency)- Primary Common variable immunodeficiency Asthma, unspecified asthma severity, unspecified whether complicated, unspecified whether persistent (HHS-HCC) CVID (common variable immunodeficiency)- Primary Common variable immunodeficiency Moderate persistent asthma without complication (HHS-HCC) documented in this encounter [facility] Work Phone: Evaluation note* Diagnosis Hypogammaglobulinemia (Multi)- Primary Unspecified hypogammaglobulinemia CVID (common variable immunodeficiency) Common variable immunodeficiency Asthma, unspecified asthma severity, unspecified whether complicated, unspecified whether persistent (HHS-HCC)- Primary CVID (common variable immunodeficiency) Common variable immunodeficiency CVID (common variable immunodeficiency)- Primary Common variable immunodeficiency Asthma, unspecified asthma severity, unspecified whether complicated, unspecified whether persistent (HHS-HCC) CVID (common variable immunodeficiency)- Primary Common variable immunodeficiency Moderate persistent asthma without complication (HHS-HCC) 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- Primary documented in this encounter [facility] Work Phone: Evaluation note* Diagnosis Hypogammaglobulinemia (Multi)- Primary Unspecified hypogammaglobulinemia CVID (common variable immunodeficiency) Common variable immunodeficiency Asthma, unspecified asthma severity, unspecified whether complicated, unspecified whether persistent (HHS-HCC)- Primary CVID (common variable immunodeficiency) Common variable immunodeficiency CVID (common variable immunodeficiency)- Primary Common variable immunodeficiency Asthma, unspecified asthma severity, unspecified whether complicated, unspecified whether persistent (HHS-HCC) CVID (common variable immunodeficiency)- Primary Common variable immunodeficiency Moderate persistent asthma without complication (HHS-HCC) Stage 3b chronic kidney disease (Multi)- Primary Essential hypertension Unspecified essential hypertension Hyperparathyroidism, secondary (Multi) Diffuse large B-cell lymphoma, unspecified body region (Multi) documented in this encounter [facility] Work Phone: Evaluation note* Diagnosis Nausea- Primary Nausea alone Moderate persistent asthma without complication (HCC) Drug-induced diffuse interstitial pulmonary fibrosis Chronic pain syndrome Spasm Abnormal involuntary movements [facility]* Diagnosis Edema of both legs- Primary Edema Drug-induced diffuse interstitial pulmonary fibrosis Moderate persistent asthma without complication (HCC) Systolic dysfunction Unspecified heart disease Stage 3b chronic kidney disease ([facility]-HCC) documented in this encounter [facility]* Diagnosis Chronic pain syndrome- Primary Moderate persistent asthma without complication (HCC) Drug-induced diffuse interstitial pulmonary fibrosis Morbid obesity ([facility]-HCC) Morbid obesity BMI 37.0-37.9, adult Stage 3b chronic kidney disease ([facility]HCC) Venous insufficiency Unspecified venous (peripheral) insufficiency documented in this [facility]* Diagnosis Venous insufficiency Unspecified venous (peripheral) insufficiency documented in this encounter [facility] HealthcareHistory of Present illness NarrativeThe patient is being seen for a routine clinic follow-up of chronic kidney disease. This is classified as stage 3. Recently, the disease has been stable. Disease complications: hyperparathyroidism, but no hyperkalemia, no hypocalcemia, no hyperphosphatemia, no metabolic acidosis, no coagulopathy, no uremic encephalopathy, no neuropathy and no renal osteodystrophy. The patient is currently asymptomatic. No associated symptoms are reported.-[facility] 3 DO Work Phone: History of [...] currently asymptomatic. No associated symptoms are reported.-[facility] 3 DO Work Phone: History of Present illness Narrative* Christopher Watkins MD - 12/05/2023 10:10 AM EDT Katerina Danielle 63 y.o. @@ [facility]/Room: [id number]/Room/bed info not found Subjective: The patient is [...] mg/3 mL nebulizer solution Inhale. artificial tears, mzepytf-avnwuoc-nrwdgbav, 0.1-0.3-0.2 % ophthalmic solution Administer into affected [...] Onco-Nephrology Program Division of Nephrology & Hypertension [facility] documented in this [facility] Work Phone: History of Present illness Narrative* Christopher Watkins MD - 06/11/2024 10:30 AM EDT Katerina Danielle 63 y.o. @@ [facility]/Room: [id number]/Room/bed info not found Subjective: The patient is [...] mg/3 mL nebulizer solution Inhale. artificial tears, hzrzmwe-vyfgxkq-vpzzwksr, 0.1-0.3-0.2 % ophthalmic solution Administer into affected [...] Onco-Nephrology Program Division of Nephrology & Hypertension [facility]: [facility] Present illness Narrative* Christopher Watkins MD - 02/17/2025 11:30 AM EDT Katerina Cory Danielle 64 y.o. @WT@ N/Room: [id number]/Room/bed info not found Subjective: The patient is being seen for a routine clinic follow-up of chronic kidney disease. Recently, the disease has been stable. Disease complications: No hyperkalemia, no hypocalcemia, no hyperphosphatemia, no metabolic acidosis, no coagulopathy, no uremic encephalopathy, no neuropathy and no renal osteo dystrophy. The patient is currently asymptomatic. No associated symptoms are reported. Meds: Current Medications[1] Physical Examination: Vitals: 02/17/25 1104 BP: 128/74 Pulse: 103 General: The patient is awake, oriented, and is not in any distress. Head and Neck: Normocephalic. No periorbital edema. Eyes: non-icteric Respiratory: Symmetric chest expansion. No respiratory distress. Skin: No maculopapular rash. Musculoskeletal: No peripheral edema. Neuro Exam: Speech is fluent. Moves extremities. Imaging: === 07/27/19 === US RENAL COMPLETE - Impression - No hydronephrosis or suspicious renal masses or obstructing stones Blood Labs: No results found for this or any previous visit (from the past 24 hours). Lab Results Component Value Date PTH 65.5 11/09/2020 PROTUR 61 (H) 07/27/2019 PROTUR 30 (1+) (A) 07/27/2019 PHOS 4.1 11/09/2020 Lab Results Component Value Date GLUCOSE CANCELED 01/21/2023 CALCIUM CANCELED 01/21/2023 NA CANCELED 01/21/2023 K CANCELED 01/21/2023 CO2 CANCELED 01/21/2023 CL CANCELED 01/21/2023 BUN CANCELED 01/21/2023 CREATININE CANCELED 01/21/2023 Assessment and Plan: 1- CKD III: His Cr level is 1.69. Stable kidney function. He has history of lymphoma with multiple relapses. He had multiple exposures to iv contrast over the past few years. He is s/p autologus HSCTin December 2017. 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 He is getting IVIG. Last spot urine protein to creatinine ratio did not show significant proteinuria. Volume status is good. 2- Secondary hyperparathyroidism: He is on calcitriol with good PTH level. 3. Hypertension. Blood pressure is under control. I will see him in about 6 months for follow-up. Christopher Watkins MD Senior Attending Physician Director of Onco-Nephrology Program Division of Nephrology & Hypertension [facility] [1] Current Outpatient Medications Medication Sig Dispense Refill albuterol 0.63 mg/3 mL nebulizer solution Inhale. artificial tears, ogghqlu-cbiygbh-jeqxives, 0.1-0.3-0.2 % ophthalmic solution Administer into affected eye(s) 4 times a day as needed. baclofen (Lioresal) 10 mg tablet Take 1 tablet (10 mg) by mouth 3 times a day. calcitriol (Rocaltrol) 0.25 mcg capsule TAKE 2 CAPSULES OVER THE WEEKENDS AND 1 CAPSULE THE OTHER DAYS 117 capsule 3 cetirizine (ZyrTEC) 10 mg tablet Take 1 tablet (10 mg) by mouth once daily. cholecalciferol (Vitamin D3) 5,000 Units tablet Take 2 tablets (250 mcg) by mouth once daily. fluticasone propion-salmeteroL (Wixela Inhub) 500-50 mcg/dose diskus inhaler Inhale 1 puff 2 times a day. Rinse mouth with water after use to reduce aftertaste and incidence of candidiasis. Do not swallow. 180 each 2 gabapentin (Neurontin) 100 mg capsule Take 1 capsule (100 mg) by mouth 2 times a day. gabapentin (Neurontin) 300 mg capsule Take 1 capsule (300 mg) by mouth once daily at bedtime. lubricating eye drops (polyvinyl alcohol-povidon,PF,) ophthalmic solution [...] tablet by mouth once daily. valsartan (Diovan) 160 mg tablet Take 1 tablet (160 mg) by mouth once daily. 90 tablet 3 No current facility-administered medications for this visit. documented in this [facility] Work Phone: Family History Grandparent Name Dates Details Family history of glaucoma(V 19.11, Z83.511) Status:Active Mother Name Dates Details Family history of Alzheimer' s disease(V17.2, Z82.0) Status:ActiveFamily history of malignant neoplasm(V16.9, Z80.9) Status:Active Sister Name Dates Details Family history of malignant neoplasm(V16.9, Z80.9) Status:Active Brother Name Dates Details Family history of malignant neoplasm(V16.9, Z80.9) Status:Active Grandparent Name Dates Details Family history of glaucoma(V 19.11, Z83.511) Status:Active Mother Name Dates Details Family history of Alzheimer' s disease(V17.2, Z82.0) Status:ActiveFamily history of malignant neoplasm(V16.9, Z80.9) Status:Active Sister Name Dates Details Family history of malignant neoplasm(V16.9, Z80.9) Status:Active Brother Name Dates Details Family history of malignant neoplasm(V16.9, Z80.9) Status:Active Grandparent Name Dates Details Family history of glaucoma(V 19.11, Z83.511) Status:Active Mother Name Dates Details Family history of Alzheimer' s disease(V17.2, Z82.0) Status:ActiveFamily history of malignant neoplasm(V16.9, Z80.9) Status:Active Sister Name Dates Details Family history of malignant neoplasm(V16.9, Z80.9) Status:Active Brother Name Dates Details Family history of malignant neoplasm(V16.9, Z80.9) Status:Active Grandparent Name Dates Details Family history of glaucoma(V 19.11, Z83.511) Status:Active Mother Name Dates Details Family history of Alzheimer' s disease(V17.2, Z82.0) Status:ActiveFamily history of malignant neoplasm(V16.9, Z80.9) Status:Active Sister Name Dates Details Family history of malignant neoplasm(V16.9, Z80.9) Status:Active Brother Name Dates Details Family history of malignant neoplasm(V16.9, Z80.9) Status:Active Grandparent Name Dates Details Family history of glaucoma(V 19.11, Z83.511) Status:Active Mother Name Dates Details Family history of Alzheimer' s disease(V17.2, Z82.0) Status:ActiveFamily history of malignant neoplasm(V16.9, Z80.9) Status:Active Sister Name Dates Details Family history of malignant neoplasm(V16.9, Z80.9) Status:Active Brother Name Dates Details Family history of malignant neoplasm(V16.9, Z80.9) Status:Active Unknown Family Member Name Dates Details Family history of Alzheimer' s disease: Mother(V17.2, Z82.0) Status:ActiveFamily history of malignant neoplasm: Mother, Sister, Brother (V16.9, Z80.9) Status:ActiveFamily history of glaucoma: Grandparent(V19.11, Z83.511) Status:ActiveFamily history of asthma: Mother, Father(V17.5, Z82.5) Status:ActiveFamily history of eczema: Mother, Father(V19.4, Z84.0) Status:ActiveSeasonal allergies: Mother, Father Status:Active Unknown Family Member Name Dates Details Family history of Alzheimer' s disease: Mother(V17.2, Z82.0) Status:ActiveFamily history of malignant neoplasm: Mother, Sister, Brother (V16.9, Z80.9) Status:ActiveFamily history of glaucoma: Grandparent(V19.11, Z83.511) Status:ActiveFamily history of asthma: Mother, Father(V17.5, Z82.5) Status:ActiveFamily history of eczema: Mother, Father(V19.4, Z84.0) Status:ActiveSeasonal allergies: Mother, Father Status:Active Unknown Family Member Name Dates Details Family history of glaucoma: Grandparent(V19.11, Z83.511) Status:ActiveFamily history of asthma: Mother, Father(V17.5, Z82.5) Status:ActiveFamily history of eczema: Mother, Father(V19.4, Z84.0) Status:ActiveSeasonal allergies: Mother, Father Status:ActiveFamily history of malignant neoplasm of prostate: Father(V16.42, Z80.42) Status:ActiveFamily history of malignant neoplasm: Mother, Sister, Brother (V16.9, Z80.9) Status:ActiveFamily history of Alzheimer's disease: Mother(V17.2, Z82.0) Status:ActiveFamily history of multiple myeloma: Brother(V16.7, Z80.7) Status:Active Unknown Family Member Name Dates Details Family history of Alzheimer' s disease: Mother(V17.2, Z82.0) Status:ActiveFamily history of malignant neoplasm: Mother, Sister, Brother (V16.9, Z80.9) Status:ActiveFamily history of glaucoma: Grandparent(V19.11, Z83.511) Status:ActiveFamily history of asthma: Mother, Father(V17.5, Z82.5) Status:ActiveFamily history of eczema: Mother, Father(V19.4, Z84.0) Status:ActiveSeasonal allergies: Mother, Father Status:ActiveFamily history of malignant neoplasm of prostate: Father(V16.42, Z80.42) Status:ActiveFamily history of multiple myeloma: Brother(V16.7, Z80.7) Status:Active Unknown Family Member Name Dates Details Family history of Alzheimer' s disease: Mother(V17.2, Z82.0) Status:ActiveFamily history of malignant neoplasm: Mother, Sister, Brother (V16.9, Z80.9) Status:ActiveFamily history of glaucoma: Grandparent(V19.11, Z83.511) Status:ActiveFamily history of asthma: Mother, Father(V17.5, Z82.5) Status:ActiveFamily history of eczema: Mother, Father(V19.4, Z84.0) Status:ActiveSeasonal allergies: Mother, Father Status:ActiveFamily history of malignant neoplasm of prostate: Father(V16.42, Z80.42) Status:ActiveFamily history of multiple myeloma: Brother(V16.7, Z80.7) Status:Active Unknown Family Member Name Dates Details Family history of Alzheimer' s disease: Mother(V17.2, Z82.0) Status:ActiveFamily history of malignant neoplasm: Mother, Sister, Brother (V16.9, Z80.9) Status:ActiveFamily history of glaucoma: Grandparent(V19.11, Z83.511) Status:ActiveFamily history of asthma: Mother, Father(V17.5, Z82.5) Status:ActiveFamily history of eczema: Mother, Father(V19.4, Z84.0) Status:ActiveSeasonal allergies: Mother, Father Status:ActiveFamily history of malignant neoplasm of prostate: Father(V16.42, Z80.42) Status:ActiveFamily history of multiple myeloma: Brother(V16.7, Z80.7) Status:Active Unknown Family Member Name Dates Details Family history of Alzheimer' s disease: Mother(V17.2, Z82.0) Status:ActiveFamily history of malignant neoplasm: Mother, Sister, Brother (V16.9, Z80.9) Status:ActiveFamily history of glaucoma: Grandparent(V19.11, Z83.511) Status:ActiveFamily history of asthma: Mother, Father(V17.5, Z82.5) Status:ActiveFamily history of eczema: Mother, Father(V19.4, Z84.0) Status:ActiveSeasonal allergies: Mother, Father Status:ActiveFamily history of malignant neoplasm of prostate: Father(V16.42, Z80.42) Status:ActiveFamily history of multiple myeloma: Brother(V16.7, Z80.7) Status:Active Unknown Family Member Name Dates Details Family history of Alzheimer' s disease: Mother(V17.2, Z82.0) Status:ActiveFamily history of malignant neoplasm: Mother, Sister, Brother (V16.9, Z80.9) Status:ActiveFamily history of glaucoma: Grandparent(V19.11, Z83.511) Status:ActiveFamily history of asthma: Mother, Father(V17.5, Z82.5) Status:ActiveFamily history of eczema: Mother, Father(V19.4, Z84.0) Status:ActiveSeasonal allergies: Mother, Father Status:ActiveFamily history of malignant neoplasm of prostate: Father(V16.42, Z80.42) Status:ActiveFamily history of multiple myeloma: Brother(V16.7, Z80.7) Status:Active Unknown Family Member Name Dates Details Family history of Alzheimer' s disease: Mother(V17.2, Z82.0) Status:ActiveFamily history of malignant neoplasm: Mother, Sister, Brother (V16.9, Z80.9) Status:ActiveFamily history of glaucoma: Grandparent(V19.11, Z83.511) Status:ActiveFamily history of asthma: Mother, Father(V17.5, Z82.5) Status:ActiveFamily history of eczema: Mother, Father(V19.4, Z84.0) Status:ActiveSeasonal allergies: Mother, Father Status:ActiveFamily history of malignant neoplasm of prostate: Father(V16.42, Z80.42) Status:ActiveFamily history of multiple myeloma: Brother(V16.7, Z80.7) Status:Active Unknown Family Member Name Dates Details Family history of Alzheimer' s disease: Mother(V17.2, Z82.0) Status:ActiveFamily history of malignant neoplasm: Mother, Sister, Brother (V16.9, Z80.9) Status:ActiveFamily history of glaucoma: Grandparent(V19.11, Z83.511) Status:ActiveFamily history of malignant neoplasm of prostate: Father(V16.42, Z80.42) Status:ActiveFamily history of multiple myeloma: Brother(V16.7, Z80.7) Status:ActiveSeasonal allergies: Mother, Father Status:ActiveFamily history of eczema: Mother, Father(V19.4, Z84.0) Status:ActiveFamily history of asthma: Mother, Father(V17.5, Z82.5) Status:Active Unknown Family Member Name Dates Details Family history of Alzheimer' s disease: Mother(V17.2, Z82.0) Status:ActiveFamily history of malignant neoplasm: Mother, Sister, Brother (V16.9, Z80.9) Status:ActiveFamily history of glaucoma: Grandparent(V19.11, Z83.511) Status:ActiveFamily history of asthma: Mother, Father(V17.5, Z82.5) Status:ActiveFamily history of eczema: Mother, Father(V19.4, Z84.0) Status:ActiveSeasonal allergies: Mother, Father Status:ActiveFamily history of malignant neoplasm of prostate: Father(V16.42, Z80.42) Status:ActiveFamily history of multiple myeloma: Brother(V16.7, Z80.7) Status:Active Unknown Family Member Name Dates Details Family history of Alzheimer' s disease: Mother(V17.2, Z82.0) Status:ActiveFamily history of malignant neoplasm: Mother, Sister, Brother (V16.9, Z80.9) Status:ActiveFamily history of glaucoma: Grandparent(V19.11, Z83.511) Status:ActiveFamily history of asthma: Mother, Father(V17.5, Z82.5) Status:ActiveFamily history of eczema: Mother, Father(V19.4, Z84.0) Status:ActiveSeasonal allergies: Mother, Father Status:ActiveFamily history of malignant neoplasm of prostate: Father(V16.42, Z80.42) Status:ActiveFamily history of multiple myeloma: Brother(V16.7, Z80.7) Status:Active Unknown Family Member Name Dates Details Family history of Alzheimer' s disease: Mother(V17.2, Z82.0) Status:ActiveFamily history of malignant neoplasm: Mother, Sister, Brother (V16.9, Z80.9) Status:ActiveFamily history of glaucoma: Grandparent(V19.11, Z83.511) Status:ActiveFamily history of asthma: Mother, Father(V17.5, Z82.5) Status:ActiveFamily history of eczema: Mother, Father(V19.4, Z84.0) Status:ActiveSeasonal allergies: Mother, Father Status:ActiveFamily history of malignant neoplasm of prostate: Father(V16.42, Z80.42) Status:ActiveFamily history of multiple myeloma: Brother(V16.7, Z80.7) Status:Active Relationship Condition Age at Onset Recorded Date/T osvaldo father Heart disease Unknown Diabetes mellitusUnknownMalignant neoplasm of prostateUnknownDisease of circulatory systemUnknownPulmonary emphysemaUnknownNot SpecifiedAlzheimer's diseaseUnknowngrandparentMalignant neoplasmUnknowngrandparentAlzheimer's disease UnknownsisterMalignant neoplasm of ovaryUnknownbrotherHeart diseaseUnknown Disease of spineUnknownMultiple myelomaUnknown Relationship Condition Age at Onset Recorded Date/T osvaldo father Heart disease Unknown Diabetes mellitusUnknownMalignant neoplasm of prostateUnknownDisease of circulatory systemUnknownPulmonary emphysemaUnknownmotherAlzheimer's disease UnknowngrandparentMalignant neoplasmUnknowngrandparentAlzheimer's diseaseUnknown sisterMalignant neoplasm of ovaryUnknownbrotherHeart diseaseUnknownDisease of spineUnknownMultiple myelomaUnknown Summary Purpose Advance Directives Advance Directive Response [...] C85.18 M62.[address] NADEEM MORRISONReason for VisitB-cell lymphoma DDD (degenerative disc disease), cervical Muscle spasm Other chronic pain Chief Complaint C85.18 M62.[address] NADEEM MORRISON FOLLOW UP FOLLOWING TIZANIDINE CHANGEReason for VisitB-cell lymphoma DDD (degenerative disc disease), cervical Muscle [...] section and content) DATE CREATED AUTHOR 01/25/2020 [facility] DATE CREATED AUTHOR AUTHOR'S ORGANIZ ATION 08/22/2022 [facility] DATE CREATED AUTHOR AUTHOR'S ORGANIZ ATION 01/09/2023 [facility] DATE CREATED AUTHOR AUTHOR'S ORGANIZ ATION 02/22/2023 [facility] DATE CREATED AUTHOR AUTHOR'S ORGANIZ ATION 06/05/2023 [facility] DATE CREATED AUTHOR AUTHOR'S ORGANIZ ATION 06/05/2023 [facility] DATE CREATED AUTHOR AUTHOR'S ORGANIZ ATION 04/22/2024 [facility] DATE CREATED AUTHOR AUTHOR'S ORGANIZ ATION 02/12/2025 [facility] DATE CREATED AUTHOR AUTHOR'S ORGANIZ ATION 02/20/2025 [facility] DATE CREATED AUTHOR AUTHOR'S ORGANIZ ATION 05/26/2025 [facility] EPIC Care Teams (unrecognized sec tion and content) Team Status: Active Member Role Status Dates Nael Farias MD 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 Provider Active Team Status: Inactive Member Role Status Dates Nael Farias MD 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 Provider Active Start: April 15, 2024 End: April 15Talia Calvert ProviderActiveStart: April 15, 2024 End: April 15, 2024 Team Status: Inactive Member Role Status Dates Nael Farias MD 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 Provider Active Victor Hugo Farrell MDAttaiden ProviderActiveTeam MemberRelationshipSpecialtyStart DateEnd Date Nael Farias MD [address] [place] [address] PCP - Vrjbzvr91/18/18 Anirudh Sears MD [address] [place] [address] [address] [place] [address] Consulting PhysicianHematology and Jrhivajn54/13/23Te MemberRelationship SpecialtyStart DateEnd Date Nael Farias MD [address] [place] [address] PCP - Kdbduxd25/18/18 Anirudh Sears MD [address] [place] [address] [address] [place], [place] [phone] Consulting PhysicianHematology and Otprpcrd00/13/23Team MemberRelationship SpecialtyStart DateEnd Date Nael Farias MD [address] [place] [address] PCP - Pgqeyny25/18/18 Anirudh Sears MD [address] [place] [address] [address] [place] [address] Consulting PhysicianHematology and Xccpucwf37/13/23Team MemberRelationship SpecialtyStart DateEnd Date Nael Farias MD [facility] [address] [place] [address] PCP - Grcovfe92/18/18 Anirudh Sears MD [address] [place] [address] [address] [place] [address] Consulting PhysicianHematology and Mzpflmhr66/13/23 Christopher Watkins MD [address] [place] [address] [address] [place] [address] Consulting PhysicianNephrology12/08/23 Team Status: Inactive Member Role Status Dates Nael Farias MD 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 Provider Active Start: May 19, 2024 End: May 19, 2024Jorge Webster ProviderActiveStart: May 19, 2024 End: May 19Yasmin Calvert ProviderActive Start: May 19, 2024 End: May 19, 2024Team MemberRelationshipSpecialtyStart DateEnd Date Nael Farias MD [address] [place] [address] (Fax) PCP - Vibbard ID09/01/21 Nael Farias MD [address] [place] [address] PCP - GeneralFamily Medicine01/31/23 Nohelia Machado DO [address] [place] [address] Referring PhysicianPulmonary Disease10/09/23 Christopher Watkins MD [address] [place] [address] [place] [address] Referring PhysicianNephrology10/09/23 [place] [address] [place] [address] Referring PhysicianAllergy and Immunology10/09/23 Anirudhrandal Sears Referring PhysicianOncolog09/01/18Team MemberRelationshipSpecialtyStart DateEnd Date Nael Farias MD [address] [place] [address] (Fax) PCP - Vibbard ID09/01/21 Nael Farias MD [address] [place] [address] PCP - [facility]Unity[facility] Centerly Medicine01/31/23 Nohelia Machado DO [address] [place] [address] Referring PhysicianPulmonary Disease10/09/23 Christopher Watkins MD [address] [place] [address] [place] [address] Referring PhysicianNephrology10/09/23 [place] [address] [address] [place], [phone] Referring PhysicianAllergy and Immunology10/09/23 Anirudh Sears Referring PhysicianOncolog09/01/18Team MemberRelationshipSpecialtyStart DateEnd Date Nael Farias MD [address] [address] [place] [address] PCP - Yrxtvjh74/18/18 Anirudh Sears MD [address] [place] [address] [place] [address] Consulting PhysicianHematology and Hldgmebn45/13/23 Christopher Watkins MD [address] [place] [address] Dr [address] [place] [address] Consulting PhysicianNephrology12/08/23 Team Status: Inactive Member Role Status Dates Nael Farias MD 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 Provider Active Start: June 16, 2024 End: June 16, 2024Elia Malik MDAttaiden ProviderActiveStart: June 16, 2024 End: June 16, 2024Team MemberRelationshipSpecialtyStart DateEnd Date Nael Farias MD [address] [place] [address] (Fax) PCP - Vibbard ID09/01/21 Nael Farias MD [address] [place] [address] (Fax) PCP - GeneralFamily Medicine01/31/23 Nohelia Machado DO [address] [place] [address] Referring PhysicianPulmonary Disease10/09/23 Christopher Watkins MD [address] [place] [address] [place] [address] Referring PhysicianNephrology10/09/23 [place] [address] [place] [address] Referring PhysicianAllergy and Immunology10/09/23 Anirudh Sears Referring PhysicianOncolog09/01/18Team MemberRelationshipSpecialtyStart DateEnd Date Nael Farias MD [address] [address] [place] [address] PCP - Niswsdb04/18/18 Anirudh Sears MD [address] [place] [address] [address] [place] [address] Consulting PhysicianHematology and Ybqvidjb98/13/23 Christopher Watkins MD [address] [place] [address] [address] [place] [address] Consulting PhysicianNephrology12/08/23 Sandra Cole MD [address] [facility] [address] [place] [address] Referring PhysicianAllergy and Rpxivxlyeg83/24/24Team MemberRelationship SpecialtyStart DateEnd Date Nael Farias MD [address] [facility] [address] [place] [address] (Fax) PCP - Vibbard MA09/01/21 Nael Farias MD [address] [facility] [address] [place] [address] (Fax) PCP - GeneralFamily Medicine01/31/23 Nohelia Machado DO [address] [place] [address] Referring PhysicianPulmonary Disease10/09/23 Christopher Watkins MD [address] [place] [address] [place] [address] Referring PhysicianNephrology10/09/23 [place] [address] [place] [address] Referring PhysicianAllergy and Immunology10/09/23 Anirudh Sears Referring PhysicianOncolog09/01/18Team MemberRelationshipSpecialtyStart DateEnd Date Nael Farias MD [facility] [place] [address] [place] [phone] PCP - Pgktpow80/18/18 Anirudh Sears MD [address] [place] [address] [address] [place] [address] Consulting PhysicianHematology and Tcsxnonv30/13/23 Christopher Watkins MD [address] [place] [address] Dr [address] [place] [address] Consulting PhysicianNephrology12/08/23 Sandra Cole MD [address] [facility] [place] [address] [place] [address] Referring PhysicianAllergy and Qimdkqskom32/24/24Team MemberRelationship SpecialtyStart DateEnd Date Nael Farias MD [address] [phone] PCP - Ahkrbad88/18/18 Anirudh Sears MD [address] [place] [address] [address] [place] [address] Consulting PhysicianHematology and Qnaxgqgj92/13/23 Christopher Watkins MD [address] [place] [address] [address] [place] [address] Consulting PhysicianNephrology12/08/23Team MemberRelationshipSpecialtyStart Date End Date Nael Farias MD [address] [place] [address] (Fax) PCP - Vibbard MA09/01/21 Nael Farias MD [address] [place] [address] PCP - GeneralFamily Medicine01/31/23 Nohelia Machado DO [address] [place] [address] Referring PhysicianPulmonary Disease10/09/23 Christopher Watkins MD [address] [place] [address] [place] [address] Referring PhysicianNephrology10/09/23 [place] [address] [place] [address] Referring PhysicianAllergy and Immunology10/09/23 Anirudhrandal Sears Referring PhysicianOncology1Team MemberRelationshipSpecialtyStart DateEnd Date Nael Farias MD [address] [place] [address] (Fax) PCP - Vibbard ID09/01/21 Nael Farias MD [address] [place] [address] PCP - GeneralFamily Medicine01/31/23 Nohelia Machado DO [address] [place] [address] Referring PhysicianPulmonary Disease10/09/23 Christopher Watkins MD [address] [place] [address] [place] [address] Referring PhysicianNephrology10/09/23 [place] [address] [place] [address] Referring PhysicianAllergy and Immunology10/09/23 Anirudh Sears Referring PhysicianOncology1Team MemberRelationshipSpecialtyStart DateEnd Date Nael Farias MD [address] [place] [address] (Fax) PCP - Aranza ID09/01/21 Nael Farias MD [address] [place] [place] [address] PCP - GeneralFamily Medicine01/31/23 Nohelia Machado DO [address] [place] [address] Referring PhysicianPulmonary Disease10/09/23 Christopher Watkins MD [address] [place] [address] [place] [address] Referring PhysicianNephrology10/09/23 [place] [address] [place] [address] Referring PhysicianAllergy and Immunology10/09/23 Anirudh Sears Referring PhysicianOncolog09/01/18Team MemberRelationshipSpecialtyStart DateEnd Date Nael Farias MD [address] [place] [address] (Fax) PCP - Aranza ID09/01/21 Nael Farias MD [address] [place] [address] PCP - GeneralFamily Medicine01/31/23 Nohelia Machado DO [address] [place] [address] Referring PhysicianPulmonary Disease10/09/23 Christopher Watkins MD [address] [place] [address] [place] [address] Referring PhysicianNephrology10/09/23 [place] [address] [address] [place] [phone] Referring PhysicianAllergy and Immunology10/09/23 Anirudh Orion Referring PhysicianOncology1Team MemberRelationshipSpecialtyStart DateEnd Date Nael Farias MD [address] [place] [address] (Fax) PCP - Aranza MIN09/01/21 Nael Farias MD [address] [place] [address] (Fax) [facility] Medicine01/31/23 Nohelia Machado DO [address] [place] [address] Referring PhysicianPulmonary Disease10/09/23 Christopher Watkins MD [address] [place] [address] [place] [address] Referring PhysicianNephrology10/09/23 [place] [address] [address] [place], [phone] Referring PhysicianAllergy and Immunology10/09/23 Anirudhrandal Sears Referring PhysicianOncology1Team MemberRelationshipSpecialtyStart DateEnd Date Nael Farias MD [address] [place] [address] (Fax) PCP - Aranza MIN09/01/21 Nael Farias MD [address] [place] [address] (Fax) PCP - [facility] Medicine01/31/23 Nohelia Machado DO [address] [place] [address] Referring PhysicianPulmonary Disease10/09/23 Christopher Watkins MD [address] [place] [address] [place] [address] Referring PhysicianNephrology10/09/23 [place] [address] [place] [address] Referring PhysicianAllergy and Immunology10/09/23 Anirudh Sears Referring PhysicianOncolog09/01/18Team MemberRelationshipSpecialtyStart DateEnd Date Nael Farias MD [address] [place] [address] PCP - Mdkjtil89/18/18 Anirudh Sears MD [address] [place] [address] [address] [place] [address] Consulting PhysicianHematology and Yqbojfkr17/13/23 Christopher Watkins MD [address] [place] [address] [address] [place] [address] Consulting PhysicianNephrology12/08/23 Sandra Cole MD [address] [facility] [address] [place] [address] Referring PhysicianAllergy and Mmhtqmxrpr36/24/24Team MemberRelationship SpecialtyStart DateEnd Date Nael Farias MD [address] [place] [address] (Fax) PCP - Aranza MIN09/01/21 Nael Farias MD [address] [place] [address] (Fax) PCP - GeneralFamily Medicine01/31/23 Nohelia Machado DO [address] [place] [place] [address] Referring PhysicianPulmonary Disease10/09/23 [place] [address] [facility] [place] [address] Referring PhysicianNephrology10/09/23 [place] [address] [address] [place], [facility] Referring PhysicianAllergy and Immunology10/09/23 Anirudh Orion Referring PhysicianOncology1Team MemberRelationshipSpecialtyStart DateEnd Date Nael Farias MD [address] [place] [address] (Fax) PCP - Aranza MIN09/01/21 Nael Farias MD [address] [place] [address] (Fax) PCP - GeneralFamily Medicine01/31/23 Nohelia Machado DO [address] [place] [place] [address] Referring PhysicianPulmonary Disease10/09/23 [place] [address] [facility] [place] [address] Referring PhysicianNephrology10/09/23 [place] [address] [address] [place], [phone] Referring PhysicianAllergy and Immunology10/09/23 Anirudh Orion Referring PhysicianOncology1Team MemberRelationshipSpecialtyStart DateEnd Date Nael Farias MD [address] [place] [address] (Fax) PCP - Aranza MIN09/01/21 Nael Farias MD [address] [place] [address] (Fax) PCP - GeneralFamily Medicine01/31/23 Nohelia Machado DO [address] [place] [address] Referring PhysicianPulmonary Disease10/09/23 Christopher Watkins MD [address] [place] [address] [place] [address] Referring PhysicianNephrology10/09/23 [place] [address] [place] [address] Referring PhysicianAllergy and Immunology10/09/23 Anirudh Sears Referring PhysicianOncolog09/01/18Team MemberRelationshipSpecialtyStart DateEnd Date Nael Farias MD [address] [place] [address] PCP - Qdgnvlq94/18/18 Anirudh Sears MD [address] [place] [address] [address] [place], [place] [address] Consulting PhysicianHematology and Tqditgrg34/13/23 Christopher Watkins MD [address] [place] [address] [address] [place], [place] [address] Consulting PhysicianNephrology12/08/23 Sandra Cole MD [address] [facility] [address] [place], [place] [address] Referring PhysicianAllergy and Qxemomgacw59/24/24Team MemberRelationship SpecialtyStart DateEnd Date Nael Farias MD [address] [place] [address] PCP - Qodudkq09/18/18 [place] [address] [facility] [address] [place], [place] [address] Consulting PhysicianHematology and Hruathkf39/13/23 [place] [address] [facility] [address] [place] [address] Consulting PhysicianNephrology12/08/23 Sandra Cole MD [address] [facility] [address] [place] [address] Referring PhysicianAllergy and Jpbedrkqnq98/24/24Team MemberRelationship SpecialtyStart DateEnd Date Nael Farias MD [address] [facility] [address] [place] [address] PCP - Vibbard MA09/01/21 Nael Farias MD 112 [facility] 100 [place] [address] PCP - GeneralFamily Medicine01/31/23 Nohelia Machado DO [address] [place] [address] Referring PhysicianPulmonary Disease10/09/23 Christopher Watkins MD [address] [place] [address] [place] [address] Referring PhysicianNephrology10/09/23 [place] [address] [place] [address] Referring PhysicianAllergy and Immunology10/09/23 Anirudh Sears Referring PhysicianOncolog09/01/18Team MemberRelationshipSpecialtyStart DateEnd Date Nael Farias MD [address] [place] [address] (Fax) PCP - Aranza MIN09/01/21 Nael Farias MD [address] [place] [address] (Fax) PCP - GeneralFamily Medicine01/31/23 Nohelia Machado DO [address] [place] [address] Referring PhysicianPulmonary Disease10/09/23 Christopher Watkins MD [address] [place] [address] [place] [address] Referring PhysicianNephrology10/09/23 [place] [address] [address] [place], [facility] Referring PhysicianAllergy and Immunology10/09/23 Anirudh Sears Referring PhysicianOncology1Team MemberRelationshipSpecialtyStart DateEnd Date Nael Farias MD [address] [place] [address] (Fax) PCP - Aranza MIN09/01/21 Nael Farias MD [address] [place] [address] (Fax) PCP - GeneralFamily Medicine01/31/23 Nohelia Machado DO [address] [place] [address] Referring PhysicianPulmonary Disease10/09/23 Christopher Watkins MD [address] [place] [address] [place] [address] Referring PhysicianNephrology10/09/23 [place] [address] [place] [address] Referring PhysicianAllergy and Immunology10/09/23 Anirudhrandal Sears Referring PhysicianOncology1Team MemberRelationshipSpecialtyStart DateEnd Date Nael Farias MD [address] [place] [address] (Fax) PCP - Aranza MIN09/01/21 Nael Farias MD [address] [place] [address] (Fax) PCP - GeneralFamily Medicine05/09/25 Nohelia Machado DO [address] [place] [address] Referring PhysicianPulmonary Disease10/09/23 Christopher Watkins MD [address] [place] [address] [place] [address] Referring PhysicianNephrology10/09/23 [place] [address] [place] [address] Referring PhysicianAllergy and Immunology10/09/23 Anirudhrandal Sears Referring PhysicianOncology1Team MemberRelationshipSpecialtyStart DateEnd Date Nael Farias MD [address] [place] [address] (Fax) PCP - Aranza MIN09/01/21 Nael Farias MD [address] [place] [address] (Fax) PCP - Generalmi Medicine05/09/25 Nohelia Machado DO [address] [place] [address] Referring PhysicianPulmonary Disease10/09/23 Christopher Watkins MD [address] [place] [address] [place] [address] Referring PhysicianNephrology10/09/23 [place] [address] [place] [address] Referring PhysicianAllergy and Immunology10/09/23 Anirudh Sears Referring PhysicianOncolog09/01/18Team MemberRelationshipSpecialtyStart DateEnd Date Nael Farias MD [address] [place] [address] (Fax) PCP - Aranza MIN09/01/21 Nael Farias MD [address] [place] [address] (Fax) PCP - GeneralFamily Medicine05/09/25 Nohelia Machado DO [address] [place] [address] Referring PhysicianPulmonary Disease10/09/23 Christopher Watkins MD [address] [place] [address] [place] [address] Referring PhysicianNephrology10/09/23 [place] [address] [place] [address] Referring PhysicianAllergy and Immunology10/09/23 Anirudh Sears Referring PhysicianOncology1Team MemberRelationshipSpecialtyStart DateEnd Date Nael Farias MD [address] [place] [address] (Fax) PCP - Aranza MIN09/01/21 Nael Farias MD [address] [place] [address] (Fax) PCP - GeneralFamily Medicine05/09/25 Nohelia Machado DO [address] [place] [address] Referring PhysicianPulmonary Disease10/09/23 Christopher Watkins MD [address] [place] [address] [place] [address] Referring PhysicianNephrology10/09/23 [place] [address] [address] [place] [address] Referring PhysicianAllergy and Immunology10/09/23 Anirudhrandal Sears Referring PhysicianOncolog09/01/18Team MemberRelationshipSpecialtyStart DateEnd Date Nael Farias MD [address] [facility] [address] [place] [address] PCP - [place] ID09/01/21 Nael Farias MD [address] [address] PCP - GeneralFamily Medicine05/09/25 Nohelia Machado DO [address] [place] [address] Referring PhysicianPulmonary Disease10/09/23 Christopher Watkins MD [address] [place] [address] [place] [address] Referring PhysicianNephrology10/09/23 [place] [address] [place] [address] Referring PhysicianAllergy and Immunology10/09/23 Anirudhrandal Sears Referring PhysicianOncolog09/01/18 Goals (unrecognized section and content) Goals may be documented in a n alternate sectionGoals may be documented in an alternate sectionGoals may be documented in an alternate sectionGoals may be documented in an alternate sectionGoals may be documented in an alternate section Reason for Visit (unrecogniz ed section and content) GcuabhBfbeabugEwjqic-miRuyhlaKlaxojnsFvkwis-fkRsimmnniquzimWsxig like to discuss new medicationReasonCommentsImmunodeficiencyReasonCommentsAsthmaPainReason CommentsFollow-upACT 19ReasonCommentsPainAsthmaReasonCommentsAnnual ExamReason CommentsFollow-upAct 19ReasonCommentsFollow-upChronic Kidney DiseaseReason CommentsEdemaReasonOnset DateCommentsCare Tohlpfgxbdql62/14/2025 FOR RECORDS PERTAINING TO PATIENTS WHO ARE [...] BE BASED ON THE PRIMARY CLINICAL RECORDS. [facility] [employer] [facility]. provides no warranty or guarantee of the accuracy or completeness of information in this document.
[2025-07-06 09:42] LABS: Alanine Aminotransferase 51 U/L (16-63); Albumin Globulin Ratio 0.9; Albumin Level 3.4 g/dL (3.4-5.0); Alkaline Phosphatase 91 U/L (46-116); Anion Gap 11.5; Aspartate Amino Transferase 31 U/L (15-37); Blood Urea Nitrogen 34.0 mg/dL (7.0-18.0); Calcium 9.6 mg/dL (8.5-10.1); Carbon Dioxide 29.3 mmol/L (21.0-32.0); Chloride 106 mmol/L (98-107); Estimated GFR (African America 40 (>=60 mL/min/1.73m^2); Estimated GFR (Non-African Ame 33 (>=60 mL/min/1.73m^2); Globulin 3.7 g/dL; Glucose 115 mg/dL (74-106); Potassium 4.8 mmol/L (3.5-5.1); Sodium 142 mmol/L (136-145); Total Protein 7.1 g/dL (6.4-8.2)
[2025-07-07 08:09] LABS: Immunoglobulin G, Qn 1279 mg/dL (603-1613)
== END 2025-07-06 08:38 | disposition home or self-care (01) ==
LOC: LAB 08:39
PROVIDERS: PCP Family Medicine; Visit Provider Allergy & Immunology
DX: D80.1 Nonfamilial hypogammaglobulinemia (principal)
CPT/HCPCS: 36415; 80053; 82784

== ENCOUNTER 2025-07-12 08:32 | Outpatient (OUT) | payer MEDICARE, SELFPAY ==
--- OUTSIDE RECORDS SUMMARY | 2025-07-11 11:15 | XMS_ITS | Encounter Summary ---
Author Organization [facility] Address [address] [place] [address] Phone Care Team Providers Care Scouts Name Role Phone Nael Mendez MD 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 Provider Miranda Sears MD Unavailable Christopher Solomon MD Unavailable [phone] Sandra Cole MD Unavailable Reason for Visit * ReasonCommentsFollow-upAsthmaACT 22 Encounter Details DateTypeDepartmentCare Team (Latest Contact Info)Iushzimpnpt35/10/2025 11:15 AM ESTOffice Visit [facility] [address] [place] [address] Sandra Cole MD [address] [facility] [address] [place] [address] CVID (common variable immunodeficiency) (Multi) (Primary Dx); Moderate persistent asthma without complication ([facility]) Discharge Disposition: Home Social History Tobacco UseTypesPacks/DayYears UsedDateSmoking Tobacco: NeverPassive Smoke Exposure: PastSmokeless Tobacco: Never Tobacco Cessation:Counseling Given: Not Answered Alcohol UseStandard Drinks/WeekCommentsNever0 (1 standard drink = 0.6 oz pure alcohol)Sex and Gender InformationValueDate RecordedSex Assigned at BirthNot on fileLegal AaiNkss97/26/2022 12:29 PM ESTGender IdentityNot on fileSexual OrientationNot on filedocumented as of this encounter Last Filed Vital Signs Vital SignReadingTime TakenCommentsBlood Pbfmejtu133/8207/11/2025 11:08 AM EST Aatfx340107/11/2025 11:08 AM ESTTemperature--Respiratory Rate--Oxygen Saturation-- Inhaled Oxygen Concentration--Jufiek411 kg (271 lb)07/11/2025 11:08 AM ESTHeight 182.9 cm (6')07/11/2025 11:08 AM ESTBody Mass Index36.7507/11/2025 11:08 AM EST documented in this encounter Functional Status * BPAnswerDate of AxuinebityVifvkz481/8207/11/2025 11:08 AM Flori Nichols MA * PulseAnswerDate of CxqyizqmriPiujbm7218/10/2025 11:08 AM Flori Nichols MA documented as of this encounter Patient Instructions * Patient Instructions* Carolyn Morrison - 07/11/2025 11:15 AM EST Have blood work to evaluate renal panels. I will follow up with you with results and further recommendations. Have blood work for renal, hepatic and pre-infusion, IgG level. I will follow up with you with results and further recommendations. Continue Gammagard 40 g IV infusions every 4 weeks at [place] as scheduled. Send me a message if you have not heard from me. Continue Wixela one inhalation two times a day and albuterol as needed. Follow up in 6 months or sooner if symptoms worsen prior. documented in this encounter Miscellaneous Notes * Assessment & Plan Note - Carolyn Morrison - 07/11/2025 11:53 AM ESTAssociated Problem(s): Asthma ([facility]) ACT 22. Sx are under control with no exacerbations. He continues Wixela. He will continue Wixela one inhalation two times a day and albuterol as needed. * Assessment & Plan Note - Carolyn Morrison - 07/09/2025 6:45 PM ESTAssociated Problem(s): CVID (common variable immunodeficiency) (Multi) Infusions are well-tolerated with no SE or reactions. He will have blood work to evaluate renal panels today. He will then have blood work for renal, hepatic and pre-infusion, IgG level. I discussed possible switch to Hizentra subcu weekly with less volume which should likely decrease his reactions. He will continue Gammagard infusions at [place] as scheduled. I asked him to send me a message if he has not heard from me. documented in this encounter Plan of Treatment DateTypeDepartmentCare Team (Latest Contact Info)Cnexocmtcfp36/11/2025 11:30 AM ESTOffice Visit [facility] [address] [place] [address] [address] [place] [address] Christopher Solomon MD [address] [place] [address] Dr [address] [place] [address] 08/15/2025 10:40 AM ESTOffice Visit [facility] [address] [place] [address] [address] [place] [address] Miranda Sears MD [address] [place] [address] [address] [place] [id number] 01/09/2026 11:00 AM EDTOffice Visit [facility] [address] [place] [address] Sandra Cole MD [address] [facility], [address] [place] [address] NameTypePriorityAssociated DiagnosesOrder ScheduleComprehensive Metabolic Panel LabRoutine CVID (common variable immunodeficiency) (Multi) Every 3 months for 6 Occurrences starting 07/11/2025 until 01/08/2027IgGLab Routine CVID (common variable immunodeficiency) (Multi) Expected: 07/11/2025 (Approximate), Expires: 07/11/2026asic Metabolic PanelLab Routine CVID (common variable immunodeficiency) (Multi) Expected: 07/11/2025 (Approximate), Expires: 07/11/2026documented as of this encounter Visit Diagnoses Diagnosis CVID (common variable immunodeficiency) (Multi)- Primary Common variable immunodeficiency Moderate persistent asthma without complication ([facility]) documented in this encounter Additional Health Concerns AssessmentNoted TimeA fall risk assessment has been completed for the patient 02/17/2025 11:03 AM EDTdocumented as of this encounter Care Teams Team MemberRelationshipSpecialtyStart DateEnd Date Nael Mendez MD [address] [place] [address] PCP - Ddvvzyu86/18/18 Miranda Sears MD [address] [place] [address] [address] [place] [address] Consulting PhysicianHematology and Wtdsigjn59/13/23 Christopher Solomon MD [address] [place] [address] [address] [place] [address] Consulting PhysicianNephrology12/08/23 Sandra Cole MD [address] [facility], [address] [place], [place] [address] Referring PhysicianAllergy and Adoyxuhjgb33/24/24documented as of this encounter
--- OUTSIDE RECORDS SUMMARY | 2025-07-12 08:39 | XMS_ITS | Encounter Summary ---
Author Organization [facility] Address [address] [place] [address] Phone Care Team Providers Care Drafter Patent Name Role Phone Nael Mendez MD 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 Provider [phone] Miranda Sears MD Unavailable Christopher Solomon MD Unavailable [phone] Sandra Cole MD Unavailable Encounter Details DateTypeDepartmentCare Team (Latest Contact Info)Qqkugtyedjo40/10/2025Scanned Document [facility] [address] [place] [address] Sandra Cole MD [address] [facility], [address] [place], [place] [id number] Social History Tobacco UseTypesPacks/DayYears UsedDateSmoking Tobacco: NeverPassive Smoke Exposure: PastSmokeless Tobacco: NeverAlcohol UseStandard Drinks/WeekComments Never0 (1 standard drink = 0.6 oz pure alcohol)Sex and Gender InformationValue Date RecordedSex Assigned at BirthNot on fileLegal SiuGjhp56/26/2022 12:29 PM ESTGender IdentityNot on fileSexual OrientationNot on filedocumented as of this encounter Functional Status * BPAnswerDate of OiozxnsmxgDbpolz635/8211 11:08 AM Flori Nichols MA * PulseAnswerDate of YbxwaecrrvGprsan82315 11:08 AM Flori Nichols MA documented as of this encounter Plan of Treatment DateTypeDepartmentCare Team (Latest Contact Info)Piwzayewtws92/11/2025 11:30 AM ESTOffice Visit [facility] [address] [place] [address] [address] [place] [address] Christopher Solomon MD [address] [place] [address] [address] [place] [address] 08/15/2025 10:40 AM ESTOffice Visit [facility] [address] [place] [address] [address] [place] [address] Miranda Sears MD [address] [place] [address] [address] [place] [address] 01/09/2026 11:00 AM EDTOffice Visit [facility] [address] [facility] [address] [place] [address] Sandra Cole MD [address] [facility], [facility] [address] [place] [address] documented as of this encounter Visit Diagnoses Not on filedocumented in this encounter Additional Health Concerns AssessmentNoted TimeA fall risk assessment has been completed for the patient 02/17/2025 11:03 AM EDTdocumented as of this encounter Care Teams Team MemberRelationshipSpecialtyStart DateEnd Date Nael Mendez MD [address] [place] [address] PCP - Nysgqfu29/18/18 Miranda Sears MD [address] [place] [address] [address] [place], [place] [address] Consulting PhysicianHematology and Ldgxakft48/13/23 [place] [address] [facility] [address] [place] [address] Consulting PhysicianNephrology12/08/23 Sandra Cole MD [address] [facility], [address] [place], [place] [address] Referring PhysicianAllergy and Wdukzskjzy05/24/24documented as of this encounter
--- OUTSIDE RECORDS SUMMARY | 2025-07-12 08:39 | XMS_ITS ---
Author Organization [facility] Address [address] [place] [address] Care Team Providers Care Burn Center Nurse Name Role Phone Nael Mendez MD Unavailable [phone] Nohelia Machado DO Unavailable Unavailable Christopher Solomon MD Unavailable Unavailable Sandra Cole MD Unavailable [phone] Nael Mendez MD 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 Provider [phone] Active Problems ProblemNoted DateDiagnosed DateBMI 37.0-37.9, adult05/06/2024hronic pain kzzmnrod98/18/2024Morbid hntdtie4710/23/2023 Overview (10/23/2023): BMI >= to 35 with multiple co-morbid conditions. Spasm09/11/2023dverse effect of antineoplastic and immunosuppressive drugs, oksszfs9302/05/20237057Irmqny08/07/2023hronic znyxiaf9902/05/2023ommon variable epipmgtbssoevxdb30/07/2023LBCL (diffuse large B cell lymphoma)02/05/2023 Overview (11/04/2024): Initial DX 2016 Drug-induced diffuse interstitial pulmonary kiypogwa81/07/2023rug-induced szdmfxnfplaggh74/07/2023Esophageal ppsqjv4302/05/2023Hypogammaglobulinemia 02/05/2023Immunodeficiency due to external vnrldl6702/05/2023Migraine without aura, intractable, with status btpyudcegwt56/07/2023Mixed hyperlipidemia 02/05/2023Non-seasonal allergic gghzucki79/07/9683Tpkejhhqnukypg88/07/2023 Secondary hyperparathyroidism of renal rhjkgt5002/05/2023Secondary malignant neoplasm of left kidney and renal qntglb6602/05/2023Secondary malignant neoplasm of spinal canal02/05/2023Secondary malignant neoplasm of rwmbtv6602/05/2023Stage 3b chronic kidney isibhoj9402/05/2023Stem cells transplant hftcpb9202/05/2023 Overview (11/04/2024): CAR T Cell infusion with tisageniecleucel 2019 Preparative Regimen of fludarabine and Cytoxan Systolic khjcwiuwrxc89/07/2023Thickening of zmmsrw4102/05/2023Venous (peripheral) iezxgnpkhkczv81/07/2023 Current Treatment and Therapy Plans No current plan information found. Past Treatment and Therapy Plans No past plan information found. Lifetime Dose Tracking * ChemicalLifetime DoseAutomatic EntryManual KlchyEhgmdyelr688.44 uWs109.44 mSv0 mSv Resolved Problems ProblemNoted DateDiagnosed DateResolved DateOther obesity due to excess calories /
--- OUTSIDE RECORDS SUMMARY | 2025-07-12 08:39 | XMS_ITS | Encounter Summary ---
Author Organization [facility] Address [address] [place] [address] Phone Care Team Providers Care Hadoop Infrastructure Architect Name Role Phone Nael Mendez MD 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 Provider Miranda Sears MD Unavailable Christopher Solomon MD Unavailable [phone] Sandra Cole MD Unavailable [phone] Encounter Details DateTypeDepartmentCare Team (Latest Contact Info)Boyvnhxcctv38/30/2025Orders Only [facility] [address] [place] [address] Sandra Cole MD [address] [facility], [address] [place], [place] [id number] Hypogammaglobulinemia (Multi) (Primary Dx) Social History Tobacco UseTypesPacks/DayYears UsedDateSmoking Tobacco: NeverPassive Smoke Exposure: PastSmokeless Tobacco: NeverAlcohol UseStandard Drinks/WeekComments Never0 (1 standard drink = 0.6 oz pure alcohol)Sex and Gender InformationValue Date RecordedSex Assigned at BirthNot on fileLegal OaeQcbw94/26/2022 12:29 PM ESTGender IdentityNot on fileSexual OrientationNot on filedocumented as of this encounter Plan of Treatment DateTypeDepartmentCare Team (Latest Contact Info)Orxkpwiwncu48/11/2025 11:30 AM ESTOffice Visit [facility] [address] [place] [address] [place] [address] [place] [address] 08/15/2025 10:40 AM ESTOffice Visit [facility] [address] [place] [address] Miranda Sears MD [address] [place] [address] Dr [address] [place] [address] 01/09/2026 11:00 AM EDTOffice Visit [facility] [address] [facility] [address] [place] [address] Sandra Cole MD [address] [facility], [facility] [address] [place] [address] NameTypePriorityAssociated DiagnosesOrder ScheduleComprehensive Metabolic Panel LabRoutine Hypogammaglobulinemia [...] Date Nael Mendez MD [address] [place] [address] PCP - Gglftwk54/18/18 Miranda Sears MD [address] [place] [address] [address] [place] [address] Consulting PhysicianHematology and Utrykxzh51/13/23 [place] [address] [facility] 3 [place] [address] Consulting PhysicianNephrology12/08/23 Sandra Cole MD [address] [facility], [facility] [address] [place] [phone] Referring PhysicianAllergy and Lruufnqyfz42/24/24documented as of this encounter
--- OUTSIDE RECORDS SUMMARY | 2025-07-12 08:39 | XMS_ITS | Encounter Summary ---
Author Organization [facility] Address [address] [place] [address] Phone Care Team Providers Care Vacuum Technician Name Role Phone Nael Mendez MD 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 Provider Miranda Sears MD Unavailable Christopher Solomon MD Unavailable [phone] Sandra Cole MD Unavailable Encounter Details DateTypeDepartmentCare Team (Latest Contact Info)Pkhacjkcvvl40/11/2025Scanned Document [facility] [address] [place] [address] Sandra Cole MD [address] [facility], [address] [place], [place] [phone] Social History Tobacco UseTypesPacks/DayYears UsedDateSmoking Tobacco: NeverPassive Smoke Exposure: PastSmokeless Tobacco: NeverAlcohol UseStandard Drinks/WeekComments Never0 (1 standard drink = 0.6 oz pure alcohol)Sex and Gender InformationValue Date RecordedSex Assigned at BirthNot on fileLegal IeiOxiw75/26/2022 12:29 PM ESTGender IdentityNot on fileSexual OrientationNot on filedocumented as of this encounter Plan of Treatment DateTypeDepartmentCare Team (Latest Contact Info)Nzdjreemfty52/11/2025 11:30 AM ESTOffice Visit [facility] [address] [facility] [address] [place] [address] Christopher Solomon MD [address] [place] [address] Dr [address] [place] [address] 08/15/2025 10:40 AM ESTOffice Visit [facility] [address] [place] [address] Dr [address] [place] [address] Miranda Sears MD [address] [place] [address] Dr [address] [place] [address] 01/09/2026 11:00 AM EDTOffice Visit [facility] [address] [facility] [address] [place] [address] Sandra Cole MD [address] [facility], [facility] [address] [place] [address] documented as of this encounter Visit Diagnoses Not on filedocumented in this encounter Additional Health Concerns AssessmentNoted TimeA fall risk assessment has been completed for the patient 02/17/2025 11:03 AM EDTdocumented as of this encounter Care Teams Team MemberRelationshipSpecialtyStart DateEnd Date Nael Mendez MD [address] [address] PCP - Dnfourc96/18/18 Miranda Sears MD [address] [place] [address] [address] [place] [address] Consulting PhysicianHematology and Hcsbvdwm68/13/23 Christopher Solomon MD [address] [place] [address] [address] [place] [address] Consulting PhysicianNephrology12/08/23 Sandra Cole MD [address] [facility], [address] [place] [address] Referring PhysicianAllergy and Igizvrshkg34/24/24documented as of this encounter
--- OUTSIDE RECORDS SUMMARY | 2025-07-12 08:39 | XMS_ITS | Encounter Summary ---
Author Organization [facility] Address [address] [place] [address] Phone Care Team Providers Care Security Officers And Guards Name Role Phone Nael Mendez MD 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 Provider Miranda Sears MD Unavailable Christopher Solomon MD Unavailable [phone] Sandra Cole MD Unavailable Encounter Details DateTypeDepartmentCare Team (Latest Contact Info)Lylecjczvkk17/05/2025Scanned Document [facility] [address] [place] [address] Sandra Cole MD [address] [facility], [address] [place], [place] [phone] Social History Tobacco UseTypesPacks/DayYears UsedDateSmoking Tobacco: NeverPassive Smoke Exposure: PastSmokeless Tobacco: NeverAlcohol UseStandard Drinks/WeekComments Never0 (1 standard drink = 0.6 oz pure alcohol)Sex and Gender InformationValue Date RecordedSex Assigned at BirthNot on fileLegal EseWnmt85/26/2022 12:29 PM ESTGender IdentityNot on fileSexual OrientationNot on filedocumented as of this encounter Plan of Treatment DateTypeDepartmentCare Team (Latest Contact Info)Pvkkiwekwza69/11/2025 11:30 AM ESTOffice Visit [facility] [address] [facility] [address] [place] [address] Christopher Soolmon MD [address] [place] [address] Dr [address] [place] [address] 08/15/2025 10:40 AM ESTOffice Visit [facility] [address] [place] [address] Dr [address] [place] [address] Miranda Sears MD [address] [place] [address] Dr [address] [place] [address] 01/09/2026 11:00 AM EDTOffice Visit [facility] [address] [facility] [address] [place] [address] Sandra Cole MD [address] [facility], [facility] [address] [place] [address] documented as of this encounter Visit Diagnoses Not on filedocumented in this encounter Additional Health Concerns AssessmentNoted TimeA fall risk assessment has been completed for the patient 02/17/2025 11:03 AM EDTdocumented as of this encounter Care Teams Team MemberRelationshipSpecialtyStart DateEnd Date Nael Mendez MD [address] [address] PCP - Nvlknoj43/18/18 Miranda Sears MD [address] [place] [address] Dr [address] [place] [address] Consulting PhysicianHematology and Qdkgcoul50/13/23 Christopher Solomon MD [address] [place] [address] Dr [address] [place] [address] Consulting PhysicianNephrology12/08/23 Sandra Cole MD [address] [facility], [address] [place] [address] Referring PhysicianAllergy and Fctmxvazny57/24/24documented as of this encounter
--- OUTSIDE RECORDS SUMMARY | 2025-07-12 08:39 | XMS_ITS | Clinical Summary ---
Author Organization [facility] Healthcare Address [address] [place] [address] Care Team Providers Care Technology Applications Teacher Name Role Phone Nael Mendez MD Unavailable [phone] Nohelia Machado DO Unavailable Unavailable Christopher Solomon MD Unavailable Unavailable Sandra Cole MD Unavailable [phone] Nael Mendez MD 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 Provider + [phone] Allergies Active AllergyReactionsCriticalityNoted YjsqIxtpbslgElmccfbhsYsmgdhyw82/06/2024 Zasclim0102/05/2023 Other Reaction(s): nausea, chills, vomiting KuvsolcghiWaqwtVrcbtc67/24/2025 Pain in the kidney area, unable to urinate Ledogjbezhfm82/07/2023 Other Reaction(s): diarrhea Nxxwdioazemwccah51/07/2023 Other Reaction(s): Hives nausea Sulfamethoxazole-Qbsunvjznyrq48/07/2023 Other Reaction(s): Hives CrhaqhehrvidZew18/04/2023 Sweating, insomnia, nausea. Medications MedicationSigDispense QuantityRefillsLast FilledStart [...] mouth DailyActive cholecalciferol (Vitamin D-3) 250 MCG (07408 UT) capsule Take 1 capsule by mouth [...] as needed for wheezing or shortness of kndpyb865Active valsartan (Diovan) 160 MG tablet Take 160 [...] Problems ProblemNoted DateDiagnosed DateBMI 37.0-37.9, adult05/06/2024hronic pain jmkzqavh14/18/2024Morbid lejhpwo2410/23/2023 Overview (10/23/2023): BMI >= to 35 with multiple co-morbid conditions. Spasm09/11/2023dverse effect of antineoplastic and immunosuppressive drugs, fegordx2302/05/20236212Clzfeo46/07/2023hronic gomrdmb6602/05/2023ommon variable caznuqniqutgwjfq36/07/2023LBCL (diffuse large B cell lymphoma)02/05/2023 Overview (11/04/2024): Initial DX 2016 Drug-induced diffuse interstitial pulmonary fjopzwyy48/07/2023rug-induced rtrpajwqwplfkp82/07/2023Esophageal pmscwj8102/05/2023Hypogammaglobulinemia 02/05/2023Immunodeficiency due to external qdsfsw6702/05/2023Migraine without aura, intractable, with status cgqmaxloypo38/07/2023Mixed hyperlipidemia 02/05/2023Non-seasonal allergic heuxxhud76/07/3841Jqvczzmenicqhq95/07/2023 Secondary hyperparathyroidism of renal ujtprc5802/05/2023Secondary malignant neoplasm of left kidney and renal pspgly5302/05/2023Secondary malignant neoplasm of spinal canal02/05/2023Secondary malignant neoplasm of sdouaj0102/05/2023Stage 3b chronic kidney hxhddac4902/05/2023Stem cells transplant xrejpv3602/05/2023 Overview (11/04/2024): CAR T Cell infusion with tisageniecleucel 2018 Preparative Regimen of fludarabine and Cytoxan Systolic idqubfgwgps13/07/2023Thickening of rwlfut2902/05/2023Venous (peripheral) ukqgjthxmxdyn87/07/2023 Resolved Problems ProblemNoted DateDiagnosed DateResolved DateOther obesity due to excess calories / Encounters DateTypeDepartmentCare IpadAwirchejtid04/05/2025linisync Result Encounter [facility] External Department Unsolicited Provider, Generic External Data 06/14/2025Telephone [facility] [address] [place] [address] Elizabeth Clements MA Care Eorksidnwfay76/01/2025linisync Result Encounter [facility] External Department Unsolicited Nael Mendez MD 05/25/2025 9:00 AM EDTOffice Visit [facility] [address] [place] [address] Nael Mendez MD Chronic pain syndrome (Primary Dx); Moderate persistent asthma without complication (HCC); Drug-induced diffuse interstitial pulmonary fibrosis; Morbid obesity (CMS-HCC); BMI 37.0-37.9, adult; Stage 3b chronic kidney disease (CMS-HCC); Venous fbaudgfjgrkyu20/24/2025amboo flowsheet [facility] [address] [place] [address] Nael Mendez MD 05/25/20250429Uunfmc88/17/6901Gvuydb51/08/2025 1:45 PM EDTOffice Visit [place] [address] [place] [address] Nael Mendez MD Edema of both legs (Primary Dx); Drug-induced diffuse interstitial pulmonary fibrosis; Moderate persistent asthma without complication (HCC); Systolic dysfunction; Stage 3b chronic kidney disease (CMS-HCC)05/09/2025amboo flowsheet [address] [address] [place] [address] Nael Mendez MD 05/09/2025Travelfrom Last 3 Months Immunizations ImmunizationAdministration DatesNext DueInfluenza, injectable, quadrivalent, preservative free06/14/2023,08/18/2022MMR02/08/2020Moderna Bivalent Booster Jkfeshyregv76/27/2022fizer Bivalent Booster 12 Years And Older08/27/2022 Family History Medical HistoryRelationNameCommentsMylomaBrother 1Heart diseaseBrother 2Steve Spinal diseaseBrother 2SteveCOPDBrother 3AlfredHeart failureBrother 3Alfred Alcohol abuseFatherAlfredArthritisFatherAlfredCirculation problemsFatherAlfred DiabetesFatherAlfredEmphysemaFatherAlfredHeart diseaseFatherAlfredNeuropathy FatherAlfredProstate cancerFatherAlfredRestless legs syndromeFatherAlfredCancer Maternal GrandfatherGlenn KramerAlzheimer's diseaseMaternal GrandmotherMae KramerMental illnessMaternal GrandmotherMae KramerAlzheimer's diseaseMotherCarol AsthmaMotherCarolDementiaMotherCarolMental illnessMotherCarolCancerPaternal GrandfatherGlenn KramerAlzheimer's diseasePaternal GrandmotherMae KramerMental illnessPaternal GrandmotherMae KramerOvarian cancerSisterRelationNameStatus CommentsBrother 1AliveBrother 2SteveAliveBrother 2QjrbfoLdvlbjreRghkeiylPitew8 daughterFatherAlfredDeceasedMaternal GrandfatherGlenn KramerDeceasedMaternal GrandmotherMae KramerDeceasedMotherCarolDeceasedPaternal GrandfatherGlenn Coelho DeceasedPaternal GrandmotherMae TtcbphUiytmgkaSqrwnzZjywlnpur7ZflLlzbu9 son Social History Tobacco UseTypesPacks/DayYears UsedDateSmoking Tobacco: NeverSmokeless Tobacco: Never Tobacco Cessation:Counseling Given: Yes Alcohol UseStandard Drinks/WeekCommentsNot Currently0 (1 standard drink = 0.6 oz pure alcohol)Caffeine intake: 1-2 cups per day [id number] Health LiteracyAnswer Date RecordedHow often do you need to have someone help you when you read instructions, pamphlets, or other written material from your doctor or pharmacy? Tckicb4808/19/2024Humiliation, Afraid, Rape, and Kick questionnaireAnswerDate RecordedWithin the [...] week08/19/2024How often do you attend episcopal or advent services?Never08/19/2024o you belong to any clubs or organizations such as episcopal groups, unions, fraternal or athletic groups, or school groups?No 08/19/2024How often do you attend meetings of the clubs or organizations you belong to?Never08/19/2024re you , , , , never , or living with a partner?Ollvqqq5108/19/2024UDIT-CAnswerDate RecordedQ1: How often do you have a [...] and heating?Not very hard08/19/2024HQ-2AnswerDate RecordedPatient Health Questionnaire-2 Oukqa763[facility] - Occupational Stress QuestionnaireAnswerDate [...] steady place to sleep or slept in [facility] (including now)?No04/08/2023 Housing Stability Vital SignAnswerDate RecordedIn the last 12 months, was there a time when you were not able to pay the mortgage or rent on time?No08/19/2024 Number of Times Moved in the Last YearNot on file08/19/2024t any time in the past 12 months, were you homeless or living in a mcfp (including now)?No 08/19/2024Sex and Gender InformationValueDate RecordedSex Assigned at BirthNot on fileLegal UmsTjpr2911/13/2022 7:14 PM EDTGender IdentityNot on fileSexual OrientationNot on file Last Filed Vital Signs Vital SignReadingTime TakenCommentsBlood Mwftvcmi188/7803 9:29 AM EST Udkyh5997 8:58 AM EDTTemperature--Respiratory Tdtn9027 8:17 AM EDTOxygen Fsdkcoehkw83%05/25/2025 8:58 AM EDTInhaled Oxygen Concentration-- Avwmyy836 kg (273 lb)05/25/2025 8:58 AM HMZTexivo147.9 cm (6')05/25/2025 8:58 AM EDTBody Mass Index37.03005/25/2025 8:58 AM EDT Plan of Treatment Health MaintenanceDue DateLast DoneCommentsCT Xjvvepeqgyzi12/17/1961FIT-DNA 1960FIT1960FOBT1960 1546Jxqwxhgqzujjk97/17/1961neumococcal Vaccine: Pediatrics (0 to 5 Years) and At-Risk Patients (6 to 64 Years) (1 of 2 - PCV)11/16/1979COVID-19 Vaccine ( season)510/, 08/27/2022, 08/27/2022, Additional history existsMedicare Annual Wellness (AWV) 603/01/2025, 10/23/2023, 02/25/2022Influenza Vaccine (#1)2026 06/14/2023, 2Postponed from 05/02/2025 (Patient Refused)Colonoscopy 21, 06/13/2022olorectal Cancer Zkmsqqpds51/13/2032 Procedures Procedure NamePriorityDate/TimeAssociated DiagnosisCommentsALL IMMUNOGLOBULIN G Vgqcvqw8807/06/2025 8:52 AM EST [facility] CMP (CMP) (FOR REMOTE [facility] USE)Vmlfflj3107/06/2025 8:52 AM EST ALL BASIC METABOLIC QOVRCRfcnxlm08/01/2025 8:40 AM EDT HRGWCAXOABQOipgxye32/13/2022 12:00 PM EDT from Last 3 Months or Most Recently Relevant to Health Maintenance Results * (ABNORMAL) [facility] CMP (CMP) (FOR REMOTE [facility] USE) (07/06/2025 8:52 AM EST) ComponentValueRef RangeTest MethodAnalysis TimePerformed AtPathologist GdnfplhugKTNAPJ730290 - 145 mmol/LTBHPOTASSIUM4.83.5 - 5.1 mmol/LTBHCHLORIDE 27988 - 107 mmol/LTBHCARBON KLTMZQG02.321.0 - 32.0 mmol/LTBHANION GAP11.5TBH STSHWXR084(H)74 - 106 mg/dLTBHBLOOD UREA EHGDWDUY77.0(H)7.0 - 18.0 mg/dLTBH CREATININE2.05(H)0.70 - 1.30 mg/dLTBHTBH EGFR-AF QYBHSNWO24(L)>=60 mL/min/1.73m 2TBHTBH EGFR-NON AF SLTNUPAI64(L)>=60 mL/min/1.73m 2TBHBUN CREATININE RATIO16.4TGFABVHCPQ7.68.5 - 10.1 mg/dLTBHBILIRUBIN TOTAL0.50.2 - 1.0 mg/dLTBHASPARTATE AMINO NJSEPYPTQDW3060 - 37 U/LTBHALANINE KPBUSGHZDTDZTMYV7994 - 63 U/LTBHALKALINE WTZZYNDMILR3163 - 116 U/LTBHTOTAL PROTEIN7.16.4 - 8.2 g/dLTBHALBUMIN LEVEL3.43.4 - 5.0 g/dLTBHGLOBULIN3.7g/dLTBH ALBUMIN GLOBULIN RATIO0.9TBHSpecimen (Source)Anatomical Location / Laterality Collection Method / VolumeCollection TimeReceived Time07/06/2025 8:52 AM EST 07/06/2025 8:53 AM EST Narrative CLINISYNC - 07/06/2025 9:42 AM EST Authorizing ProviderResult TypeResult StatusGeneric External Data Provider CLINISYNCFinal ResultPerforming OrganizationAddressCity/State/ZIP CodePhone Number CLINISYNC [facility] * ALL IMMUNOGLOBULIN G (07/06/2025 8:52 AM EST)ComponentValueRef RangeTest MethodAnalysis TimePerformed AtPathologist SignatureTBH IMMUNOGLOBULIN G, QN [id number] - 1613 mg/dLTBHComment: Performed at: ??CB - [facility] [address] ??[id number] Credit Verification Clerk: Benjamín Vora PhD, Phone: ??[phone] Specimen (Source)Anatomical Location / LateralityCollection Method / Volume Collection TimeReceived Time07/06/2025 8:52 AM EST07/06/2025 8:53 AM EST Narrative CLINISYNC - 07/07/2025 8:09 AM EST Authorizing ProviderResult TypeResult StatusGeneric External Data Provider CLINISYNCFinal ResultPerforming OrganizationAddressCity/State/ZIP CodePhone Number [facility] * (ABNORMAL) ALL BASIC METABOLIC PANEL (06/01/2025 8:40 AM EDT)ComponentValueRef RangeTest MethodAnalysis TimePerformed AtPathologist KvtkymlkpBTWIMX036491 - 145 mmol/LTBHPOTASSIUM4.33.5 - 5.1 mmol/KAJTWYEHJSID27602 - 107 mmol/LTBH CARBON KVAIYDS18.921.0 - 32.0 mmol/LTBHANION GAP12.1TDKBOTZFOE561(H)74 - 106 mg/dLTBHBLOOD UREA PXBBFCMT39.0(H)7.0 - 18.0 mg/dLTBHCREATININE1.80(H)0.70 - 1.30 mg/dLTBHTBH EGFR-AF SPGLGDJA21(L)>=60 mL/min/1.73m 2TBHTBH EGFR-NON AF LEGMQEUS35(L)>=60 mL/min/1.73m 2TBHBUN CREATININE RATIO15.3UOHIIYPCKT2.68.5 - 10.1 mg/dLTBHSpecimen (Source)Anatomical Location / LateralityCollection Method / VolumeCollection TimeReceived Time06/01/2025 8:40 AM EDT1 9:01 AM EDT Narrative CLINISYNC - 06/01/2025 9:16 AM EDT Authorizing ProviderResult TypeResult StatusEdscott Mendez MDCLINISYNCFinal ResultPerforming OrganizationAddressCity/State/ZIP CodePhone Number [facility] * Colonoscopy (06/13/2022 12:00 PM EDT)Anatomical RegionLateralityModality EndoscopySpecimen (Source)Anatomical Location / LateralityCollection Method / VolumeCollection TimeReceived Time06/13/2022 12:00 PM EDT Narrative 06/13/2022 12:00 PM EDT PERFORMED AT [facility] LOCATION:[id number] Procedure Note CONVERSION, GENERIC - 01/15/2023 PERFORMED AT [facility] LOCATION:[id number] Authorizing ProviderResult TypeResult StatusEdscott Mendez MDENDOSCOPY PROCEDURE ORDERABLESFinal Result from Last 3 Months or Most Recently Relevant to Health Maintenance Insurance Care Teams Team MemberRelationshipSpecialtyStart DateEnd Date Nael Mendez MD [address] [place] [address] PCP - Aranza [place]09/01/21 Nael Mendez MD [address] [place] [address] PCP - GeneralFamily Medicine05/09/25 Nohelia Machado DO [address] [place] [address] Referring PhysicianPulmonary Disease10/09/23 [place] [address] [facility] [place] [address] Referring PhysicianNephrology10/09/23 [place] [address] [place] [address] Referring PhysicianAllergy and Immunology10/09/23 Miranda Sears Referring PhysicianOncolog09/01/18"
--- OUTSIDE RECORDS SUMMARY | 2025-07-12 08:39 | XMS_ITS | Encounter Summary ---
Author Organization [facility] Address [address] [place] [address] Phone Care Team Providers Care Deckhand Engineer Name Role Phone Nael Mendez MD 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 Provider Miranda Sears MD Unavailable Christopher Solomon MD Unavailable [phone] Sandra Cole MD Unavailable Encounter Details DateTypeDepartmentCare Team (Latest Contact Info)Xcoexpfuhid97/30/2025Scanned Document [facility] [address] [place] [address] Sandra Cole MD [address] [facility] [place] [address] [place] [address] Social History Tobacco UseTypesPacks/DayYears UsedDateSmoking Tobacco: NeverPassive Smoke Exposure: PastSmokeless Tobacco: NeverAlcohol UseStandard Drinks/WeekComments Never0 (1 standard drink = 0.6 oz pure alcohol)Sex and Gender InformationValue Date RecordedSex Assigned at BirthNot on fileLegal RauLvty01/26/2022 12:29 PM ESTGender IdentityNot on fileSexual OrientationNot on filedocumented as of this encounter Plan of Treatment DateTypeDepartmentCare Team (Latest Contact Info)Pvsrwlkktaf85/11/2025 11:30 AM ESTOffice Visit [facility] [address] [facility] [address] [place] [address] Christopher Solomon MD [address] [place] [address] [address] [place] [address] 08/15/2025 10:40 AM ESTOffice Visit [facility] [address] [place] [address] [address] [place] [address] Miranda Sears MD [address] [place] [address] [address] [place] [address] 01/09/2026 11:00 AM EDTOffice Visit [facility] [address] [facility] [address] [place] [address] Sandra Cole MD [address] [address] documented as of this encounter Visit Diagnoses Not on filedocumented in this encounter Additional Health Concerns AssessmentNoted TimeA fall risk assessment has been completed for the patient 02/17/2025 11:03 AM EDTdocumented as of this encounter Care Teams Team MemberRelationshipSpecialtyStart DateEnd Date Nael Mendez MD [address] [place] [address] PCP - Calpdhp40/18/18 Miranda Sears MD [address] [place] [address] [address] [place] [address] Consulting PhysicianHematology and Ginacodr01/13/23 Christopher Solomon MD [address] [place] [address] [address] [place] [address] Consulting PhysicianNephrology12/08/23 Sandra Cole MD [address] [facility] [address] [place] [address] Referring PhysicianAllergy and Qipkhzkspb03/24/24documented as of this encounter
--- OUTSIDE RECORDS SUMMARY | 2025-07-12 08:39 | XMS_ITS | Encounter Summary ---
Author Organization [facility] Address [address] [place] [address] Care Team Providers Care Telegraph Installer Name Role Phone Nael Mendez MD Unavailable [phone] Nohelia Machado DO Unavailable Unavailable Christopher Solomon MD Unavailable Unavailable Sandra Cole MD Unavailable [phone] Nael Mendez MD 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 Provider [phone] Encounter Details DateTypeDepartmentCare Team (Latest Contact Info)Hmbwmjbiveh04/05/2025Clinisync Result Encounter [facility] External Department Unsolicited Provider, Generic External Data Social History Tobacco UseTypesPacks/DayYears UsedDateSmoking Tobacco: NeverSmokeless Tobacco: NeverAlcohol UseStandard Drinks/WeekCommentsNot Currently0 (1 standard drink = 0.6 oz pure alcohol)Caffeine intake: 1-2 cups per day [id number] Health Literacy AnswerDate RecordedHow often do you need to have someone help you when you read instructions, pamphlets, or other written material from your doctor or pharmacy? Rcdfnw1608/19/2024Humiliation, Afraid, Rape, and Kick questionnaireAnswerDate RecordedWithin the [...] times a week08/19/2024How often do you attend yarsanism or gnosticism services?Never08/19/2024o you belong to any clubs or organizations such as yarsanism groups, unions, fraDynamo Plastics or athletic groups, or school groups?No 08/19/2024How often do you attend meetings of the clubs or organizations you belong to?Never08/19/2024re you , , , , never , or living with a partner?Ekjrymj1208/19/2024UDIT-CAnswerDate RecordedQ1: How often do you have a [...] and heating?Not very hard08/19/2024HQ-2AnswerDate RecordedPatient Health Questionnaire-2 Nwgmu748Fincentral [facility] [place] of Occupational Health - Occupational Stress QuestionnaireAnswerDate [...] steady place to sleep or slept in ashelter (including now)?No04/08/2023 Housing Stability Vital SignAnswerDate RecordedIn the last 12 months, was there a time when you were not able to pay the mortgage or rent on time?No08/19/2024 Number of Times Moved in the Last YearNot on file08/19/2024t any time in the past 12 months, were you homeless or living in a assisted (including now)?No 08/19/2024Sex and Gender InformationValueDate RecordedSex Assigned at BirthNot on fileLegal AlpRcqb5111/13/2022 7:14 PM EDTGender IdentityNot on fileSexual OrientationNot on filedocumented as of this encounter Plan of Treatment Not on file documented as of this encounter Procedures Procedure NamePriorityDate/TimeAssociated DiagnosisCommentsCCF CMP (CMP) (FOR REMOTE [facility] USE)Nkcmrab6107/06/2025 8:52 AM EST ALL IMMUNOGLOBULIN KTarkvjg36/05/2025 8:52 AM EST documented in this encounter Results * ALL IMMUNOGLOBULIN G (07/06/2025 8:52 AM EST)ComponentValueRef RangeTest MethodAnalysis TimePerformed AtPathologist SignatureTBH IMMUNOGLOBULIN G, QN [id number] - 1613 mg/dLTBHComment: Performed at: ??CB - [facility] [address] ??[id number] Furniture Mover: Benjamín Vora PhD, Phone: ??[phone] Specimen (Source)Anatomical Location / LateralityCollection Method / Volume Collection TimeReceived Time07/06/2025 8:52 AM EST07/06/2025 8:53 AM EST Narrative CLINISYNC - 07/07/2025 8:09 AM EST Authorizing ProviderResult TypeResult StatusGeneric External Data Provider CLINISYNCFinal ResultPerforming OrganizationAddressCity/State/ZIP CodePhone Number CLINISYNC [facility] * (ABNORMAL) [facility]CF CMP (CMP) (FOR REMOTE [facility] USE) (07/06/2025 8:52 AM EST) ComponentValueRef RangeTest MethodAnalysis TimePerformed AtPathologist AdiyvgomuPZHMDV564671 - 145 mmol/LTBHPOTASSIUM4.83.5 - 5.1 mmol/LTBHCHLORIDE 09259 - 107 mmol/LTBHCARBON QZCYSGH09.321.0 - 32.0 mmol/LTBHANION GAP11.5TBH XXGLAOD719(H)74 - 106 mg/dLTBHBLOOD UREA GJTSMCDO11.0(H)7.0 - 18.0 mg/dLTBH CREATININE2.05(H)0.70 - 1.30 mg/dLTBHTBH EGFR-AF NJUJQXLZ22(L)>=60 mL/min/1.73m 2TBHTBH EGFR-NON AF EMTSGNSW61(L)>=60 mL/min/1.73m 2TBHBUN CREATININE RATIO16.8CQVLWQUQLT3.68.5 - 10.1 mg/dLTBHBILIRUBIN TOTAL0.50.2 - 1.0 mg/dLTBHASPARTATE AMINO VXKPOFPMHYW4378 - 37 U/LTBHALANINE GVPISGAMVSQNWTBC2700 - 63 U/LTBHALKALINE YPVNSRZDPJX2862 - 116 U/LTBHTOTAL PROTEIN7.16.4 - 8.2 g/dLTBHALBUMIN LEVEL3.43.4 - 5.0 g/dLTBHGLOBULIN3.7g/dLTBH ALBUMIN GLOBULIN RATIO0.9TBHSpecimen (Source)Anatomical Location / Laterality Collection Method / VolumeCollection TimeReceived Time07/06/2025 8:52 AM EST 07/06/2025 8:53 AM EST Narrative CLINISYNC - 07/06/2025 9:42 AM EST Authorizing ProviderResult TypeResult StatusGeneric External Data Provider CLINISYNCFinal ResultPerforming OrganizationAddressCity/State/ZIP CodePhone Number CLINISYNC [facility] documented in this encounter Visit Diagnoses Not on filedocumented in this encounter Additional Health Concerns AssessmentNoted TimePHQ-9 Depression Total Score: 11011/04/2024 9:00 AM EST documented as of this encounter Care Teams Team MemberRelationshipSpecialtyStart DateEnd Date Nael Mendez MD [address] [place] [address] PCP - Aranza [place]09/01/21 Nael Mendez MD [address] [place] [address] PCP - GeneralFamily Medicine05/09/25 Nohelia Machado DO [address] [place] [address] Referring PhysicianPulmonary Disease10/09/23 [place] [address] [facility] [place] [address] Referring PhysicianNephrology10/09/23 [place] [address] [place] [address] Referring PhysicianAllergy and Immunology10/09/23 Miranda Sears Referring PhysicianOncolog09/01/18documented as of this encounter
--- OUTSIDE RECORDS SUMMARY | 2025-07-12 08:40 | XMS_ITS | Clinical Summary ---
Author Organization [facility] Address [address] [place] [address] Phone Care Team Providers Care Stock Shaper Name Role Phone Nael Mendez MD 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 Provider Miranda Sears MD Unavailable Christopher Solomon MD Unavailable [phone] Sandra Cole MD Unavailable [phone] Allergies Active AllergyReactionsCriticalityNoted QaraMflhsnerXavftiyejQszhfhud33/06/2024 WusiuupLinzVvi54/04/2023LevofloxacinGI RikdpMpl28/07/2023ProchlorperazineOther, Shortness of xfwbuzGhnq05/04/2023 anxiety, restlessness Sulfamethoxazole-TrimethoprimHives,Itching,WitvNfb9908/04/2023TrimethoprimOther 12/03/20173201LpkhfestzcslOlujf93/04/2023 Sweating, insomnia, nausea. Medications MedicationSigDispense QuantityRefillsLast FilledStart DateEnd DateStatus potassium citrate 99 mg capsule Take 1 tablet by mouth once daily.Active albuterol 0.63 mg/3 mL nebulizer solution Inhale.06/13/2020Active cetirizine (ZyrTEC) 10 mg tablet Take 1 tablet (10 mg) by mouth once daily.Active artificial tears, lclgaoi-psnawym-heizcbvl, 0.1-0.3-0.2 % ophthalmic solution Administer into affected [...] unspecified whether persistent ([facility])Inhale 1 puff 2 times a day. Rinse [...] 117 capsule 5Active Active Problems ProblemNoted DateDiagnosed NlthVmyzlt95/10/2024 Overview (09/10/2023): 09/2023 Previously managed by his primary care. Assessment & Plan (07/11/2025 11:53 AM EST): ACT 22. Sx are under control with no exacerbations. He continues Wixela. He will continue Wixela one inhalation two times a day and albuterol as needed. Assessment & Plan (01/03/2025 10:56 AM EDT): [...] staff to send him co-pay assistance through [employer]. According to the patient his primary care [...] EDGAR (acute kidney injury)3Benign essential HTN08/04/2023hronic kidney migulerbvukke77/04/2023KD (chronic kidney disease), stage III08/04/2023VID (common variable immunodeficiency)08/04/2023 Overview (01/02/2025): Started Gammagard infusions 2--24 at [facility]. Previously on HyQvia with side effects of abdominal bloating and pain at infusion sites. 09/2023 Current labs and treatment due to insurance issues. Last infusion was in July 2023. Started IVIG in 2018. At that time he received home health out of [place] to come to his home for administration. He would experience flulike symptoms with headache drainage and GI upset that would take him approximately a week to recover from. Therefore he discontinued treatment. He was then started on HyQvia around March 2021. He was changed to IVIG at [facility] due to cost. Assessment & Plan (07/11/2025 12:11 PM EST): Infusions are well-tolerated with no SE or reactions. He will have blood work to evaluate renal panels today. He will then have blood work for renal, hepatic and pre-infusion, IgG level. I discussed possible switch to Hizentra subcu weekly with less volume which should likely decrease his reactions. He will continue Gammagard infusions at [facility] as scheduled. I asked him to send me a message if he has not heard from me. Assessment & Plan (01/03/2025 10:57 AM EDT): [...] for the patient. Continue Gammagard infusions at [facility]. He will maintain his current dose. His [...] We will try to coordinate care with [facility]. Due to his kidney disease I do not really feel that IV is the best option, but under the c ircumstances IV is better than nothing. Diffuse large B-cell lucswdbv06/04/2023Hyperparathyroidism, yebkwcjum08/04/2023 Kofrohqzqywlvptxhmlqq74/04/7911Yqyapvlfbuwxhjnek04/04/2023Left renal mass 08/04/2023Malignant neoplasm metastatic to fwjzan5908/04/2023Orthostatic kjmyyccsvtu43/04/2023Senile nuclear yamzcbymz89/04/2023Thrombocytopenia 08/04/2023 Encounters DateTypeDepartmentCare DpmeEsznguymjgg19/11/2025Scanned Document [facility] [address] [place] [address] Sandra Cole MD 07/11/2025 11:15 AM ESTOffice Visit [facility] [address] [place] [address] Sandra Cole MD CVID (common variable immunodeficiency) (Multi) (Primary Dx); Moderate persistent asthma without complication ([facility]) Discharge Disposition: Home07/11/2025Scanned Document [facility] [address] [place] [address] Sandra Cole MD 07/06/2025Scanned Document [facility] [address] [place] [address] Sandra Cole MD 06/30/2025Scanned Document [facility] [address] [place] [phone] Sandra Cole MD 06/30/2025Orders Only [facility] [address] [place] [phone] Sandra Cole MD Hypogammaglobulinemia (Multi) (Primary Dx)from Last 3 Months Immunizations ImmunizationAdministration DatesNext DueFlu vaccine (IIV4), preservative free *Check age/dose*08/18/2022MMR vaccine, subcutaneous (MMR II)02/08/2020Pfizer COVID-19 vaccine, bivalent, age 12 years and older (30 mcg/0.3 mL)08/27/2022 Pfizer Newman Cap GUTO-JlA-105/03/2022 Social History Tobacco UseTypesPacks/DayYears UsedDateSmoking Tobacco: NeverPassive Smoke Exposure: PastSmokeless Tobacco: Never Tobacco Cessation:Counseling Given: Not Answered Alcohol UseStandard Drinks/WeekCommentsNever0 (1 standard drink = 0.6 oz pure alcohol)Sex and Gender InformationValueDate RecordedSex Assigned at BirthNot on fileLegal SdlPluu11/26/2022 12:29 PM ESTGender IdentityNot on fileSexual OrientationNot on file Last Filed Vital Signs Vital SignReadingTime TakenCommentsBlood Xrynqwuh301/8211 11:08 AM EST Iomcv744307/11/2025 11:08 AM CTRLxqatvwfyuw50.4 ??C (97.5 ??F)02/10/2025 8:50 AM EDTRespiratory Zvca575602/10/2025 8:50 AM EDTOxygen Alykdpyzrp50%02/10/2025 8:50 AM EDTInhaled Oxygen Concentration--Lzzdxt877 kg (271 lb)07/11/2025 11:08 AM EST Pmtodc128.9 cm (6')07/11/2025 11:08 AM ESTBody Mass Index36.7507/11/2025 11:08 AM EST Plan of Treatment DateTypeDepartmentCare Team (Latest Contact Info)Txaviadckva76/11/2025 11:30 AM ESTOffice Visit [facility] [address] [place] [address] [address] [place] [address] Christopher Solomon MD [address] [place] [address] [address] [place] [address] 08/15/2025 10:40 AM ESTOffice Visit [facility] [address] [place] [address] [address] [place] [address] Miranda Sears MD [address] [place] [address] [address] [place] [address] 01/09/2026 11:00 AM EDTOffice Visit [facility] [address] [facility] [address] [place] [phone] Sandra Cole MD [address] [facility] [address] [place] [address] Health MaintenanceDue DateLast DoneCommentsCT Dwvyzheaxqnc18/17/1961FIT-DNA (Cologuard)1960FIT1960HIV Kceyqldqo67/17/1961Medicare Annual Wellness Visit (AWV)4710Zblucunngrkwl21/17/1961CKD: Urine Protein Scydqbhij60/17/1980Hepatitis A Vaccines (1 of 2 - Risk 2-dose series)11/16/1979 Pneumococcal Vaccine (1 of 2 - PCV)11/16/1979Zoster Vaccines (1 of 2)11/16/1979 DTaP/Tdap/Td Vaccines (1 - Tdap)1982PSA Prostate Cancer Screening 2010RSV High Risk: (Elderly (60+) or Population) (1 - Risk 50-74 years 1-dose series)2010Hepatitis B Vaccines (1 of 3 - Risk 3-dose series) 1Lipid PanelDiabetes Qkckpxwvc17/16/749213/, 05/21/2021, 08/08/2020, Additional history existsInfluenza Vaccine (#1) /, 2COVID-19 Vaccine ( season)2025 06/14/2023, 08/27/2022, 01/01/2022, Additional history existsColonoscopy , 06/13/2022olorectal Cancer Scbiirgiq54/13/2032Hepatitis C TrdrhcbxgGkgkquxkt78/08/2019, 12/11/2017, 10/28/2017MMR VaccinesCompleted 02/08/2020Irritable Bowel YpypstziImmjkcqjspng80/13/2022, 03/23/2018HIB Vaccines Aged OutNo longer eligible based [...] this topic Procedures Procedure NamePriorityDate/TimeAssociated DiagnosisCommentsCOMPREHENSIVE METABOLIC RYKCPMkvrtey46/16/2022 9:19 AM EDT AUTO TRANSPLANT VIRAL NDWFVOyjfsza12/08/2019 12:49 PM EST MUEZHQRKFIZXMabqvnt87/23/2018 1:00 PM EDT LIPID VLCSGItlwmwg99/24/2018 9:39 AM EDT from Last 3 Months or Most Recently Relevant to Health Maintenance Results * (ABNORMAL) Comprehensive Metabolic Panel (11/14/2021 9:19 AM EDT)Component ValueRef RangeTest MethodAnalysis TimePerformed AtPathologist SignatureGlucose 117(H)74 - 99 mg/dLST [facility] TSZXsrbpa788983 - 145 mmol/LST [facility] LABPotassium4.33.5 - 5.3 mmol/[facility] Ikcaaqri82663 - 107 mmol/L[facility] URLZsdvomywjan5223 - 32 mmol/L[facility] LABAnion Vmp6787 - 20 mmol/[facility] LABUrea Kzljsdqq625 - 23 mg/dLST [facility] LABCreatinine1.76 (H)0.50 - 1.30 mg/dLST [facility] LABGFR MALE43(A)>90 mL/min/1.73m2[facility] LABComment: CALCULATIONS OF ESTIMATED GFR ARE PERFORMED USING THE 2020 CKD-EPI STUDY REFIT EQUATION WITHOUT THE RACE VARIABLE FOR THE IDMS-TRACEABLE CREATININE METHODS. https://jasn.asnjournals.org/content//ASN.8663225060 Calcium9.58.6 - 10.3 mg/dLST [facility] LABAlbumin4.33.4 - 5.0 g/dLST [facility] LABAlkaline Wouhrcflflw9611 - 136 U/LST [facility] LABTotal Protein7.06.4 - 8.2 g/dLST [facility] JVOVNW470 - 39 U/[facility] LABTotal Bilirubin0.70.0 - 1.2 mg/dLST [facility]OALS [facility] LABALT (SGPT)4310 - 52 U/[facility] LABComment: Patients treated with Sulfasalazine may generate falsely decreased results for ALT. Specimen (Source)Anatomical Location / LateralityCollection Method / Volume Collection TimeReceived Time11/14/2021 9:19 AM EDT11/14/2021 9:24 AM EDT Narrative Authorizing ProviderResult TypeResult StatusMiranda DEWITT BLOOD ORDERABLES Final ResultPerforming OrganizationAddressCity/State/ZIP CodePhone Number [facility] * (ABNORMAL) Auto Transplant Viral Panel (11/06/2018 12:49 PM EST)ComponentValue Ref RangeTest MethodAnalysis TimePerformed AtPathologist SignatureCMV IgG9.1 (A)INDEXKINDRED HEALTHCARE LABComment: RESULTS WERE OBTAINED WITH THE IMMULITE CMV IGG CHEMILUMINESCENT METHOD. THE MAGNITUDE OF THE MEASURED RESULT, ABOVE THE CUT-OFF, IS NOT INDICATIVE OF THE TOTAL AMOUNT OF ANTIBODY PRESENT. NEGATIVE: < 0.9 EQUIVOCAL: ?? 0.9 - 1.0 POSITIVE: >=1.1 CMV IgMNEGATIVENEGATIVEKINDRED HEALTHCARE LABComment: RESULTS WERE OBTAINED WITH THE IMMULITE 2000 CMV IGM CHEMILUMINESCENT METHOD AND CANNOT BE INTERCHANGED WITH OTHER TESTING METHODS. Immunodeficiency may impair a CMV specific IgM response. Samples collected early in CMV infection may not demonstrate IgM sera conversion. Hepatitis B Surface Ab311.9<10 mIU/mLKINDRED HEALTHCARE LABComment: INTERPRETIVE CRITERIA: <10 mIU/mL....NONREACTIVE >=10 mIU/mL...REACTIVE . Patients receiving more than 5 mg/day of biotin may have interference in test results. ??A sample should be taken no sooner than eight hours after ??previous dose. Contact the testing laboratory for additional information. HSV 1 IgG3.1(A)[facility] LABComment: REF VALUES NEGATIVE <0.9 EQUIVOCAL >=0.90 <=1.10 POSITIVE >1.10 HSV 2 IgG1.7(A)[facility] LABComment: POTENTIAL FOR CROSS-REACTIVITY BETWEEN HSV I AND HSV II EXISTS. REF VALUES NEGATIVE <0.9 EQUIVOCAL >=0.90 <=1.10 POSITIVE >1.10 Varicella IgGPOSITIVENEGATIVEKINDRED [facility]ALTH[facility]ARE LABComment: INTERPRETATIVE COMMENT NEGATIVE: No IgG antibodies [...] results in serological assays. Hep B Core IgMNON-REACTIVENONREACTIVEKINDRED HEALTHCARE LABComment: Patients receiving more than 5 mg/day of biotin may have interference in test results. ??A sample should be taken no sooner than eight hours after ??previous dose. Contact the testing laboratory for additional information. Hepatitis C AbNON-REACTIVENONREACTIVEKINDRED HEALTHCARE LABComment: Patients receiving more than 5 mg/day of biotin may have interference in test results. ??A sample should be taken no sooner than eight hours after ??previous dose. Contact the testing laboratory for additional information. Hepatitis B Surface AgNONREACTIVENONREACTIVEKINDRED HEALTHCARE LABComment: Patients receiving more than 5 mg/day of biotin may have interference in test results. ??A sample should be taken no sooner than eight hours after ??previous dose. Contact the testing laboratory for additional information. HIV 1 and 2 ScreenNON REACTIVENONREACTIVEKINDRED HEALTHCARE LABComment: HIV Ag/Ab screen is performed using the Siemens Advia Centaur HIV Ag/Ab Combo assay which detects the presence of HIV p24 antigen as well as antibodies to HIV-1 (Group M and O) and HIV-2. SYPHILIS IGG - DATA CONVERSIONNON REACTIVENONACTIVEKINDRED [facility]ALTH[facility]ARE LABComment: Patients receiving more than 5 mg/day of biotin may have interference in test results. ??A sample should be taken no sooner than eight hours after ??previous dose. Contact [phone] for additional information. Specimen (Source)Anatomical Location / LateralityCollection Method / Volume Collection TimeReceived Time11/06/2018 12:49 PM EST11/06/2018 1:54 PM EST Narrative Authorizing ProviderResult TypeResult StatusPieter Saleem MDLAB BLOOD ORDERABLESFinal ResultPerforming OrganizationAddressCity/State/ZIP CodePhone Number [facility] * Bronchoscopy (03/23/2018 1:00 PM EDT)Anatomical RegionLateralityModality EndoscopySpecimen (Source)Anatomical Location / LateralityCollection Method / VolumeCollection TimeReceived Time03/23/2018 1:00 PM EDT Narrative 08/19/2022 11:51 AM EST Patient Name: Gabriel Danielle Procedure Date: 03/23/2018 1:00 PM Date of : 1960 Room: [facility] Procedure Room 7 Attending MD: Dante Murphy DO, [id number] Procedure: ? Bronchoscopy Indications: ? Bilateral atelectasis Providers: ? Dante Murphy DO (Doctor), Gabriel Mcghee RN ? (Nurse), Denny Montalvo RN (Nurse), Pat ? MD Ivan (Fellow) Referring MD: ?Katie Jeffries MD (Referring MD) Provider Care Team: ?Katie Jeffries MD (Requesting Physician) Medicines: ? Lidocaine 4% Nebulizer 3 mL, Midazolam mg IV, Fentanyl ? mcg IV, Lidocaine 2% mg, Cetacaine [place] 1 dose, ? Fentanyl IV 125 mcgs, [...] normal ? oropharyngeal airway. Respiratory Examination: ? zenonlagregory bennett. CV Examination: normal. ASA Grade ? Assessment: [...] Procedure Code(s): ? --- Professional --- ? 57346, Bronchoscopy, rigid or flexible, including ? fluoroscopic guidance, when performed; with bronchial ? alveolar lavage Diagnosis Code(s): ? --- Professional --- ? J98.11, Atelectasis CPT copyright 2021 [employer]. All rights reserved. The codes documented in this report are preliminary and upon strategic marketing associate review may be revised to meet current [...] 1:00 PM Date of : 1960 Room: [facility] Procedure Room 7 Attending MD: Dante Murphy DO, [id number] Procedure: Bronchoscopy Indications: Bilateral atelectasis Providers: Dante Murphy DO (Doctor), Gabriel Mcghee, RN (Nurse), Denny Montalvo RN (Nurse), Pat Love MD (Fellow) Referring MD: Katie Jeffries MD (Referring MD) Provider Care Team: Katie Jeffries MD (Requesting Physician) Medicines: Lidocaine 4% Nebulizer 3 mL, Midazolam mg IV,Fentanyl mcg IV, Lidocaine 2% mg, Cetacaine [place] 1 dose, Fentanyl IV 125 mcgs, Lidocaine [...] tree. Bronchoalveolar lavage was performed in the [facility] anterior medialsegments (B7 & B8) of the [...] referring physician. Procedure Code(s): --- Professional --- 38688, Bronchoscopy, rigid or flexible, including fluoroscopic guidance, when performed; withbronchial alveolar lavage Diagnosis Code(s): --- Professional --- J98.11, Atelectasis CPT copyright 2021 [employer]. All rights reserved. The codes documented in this report are preliminary and upon strategic marketing associate reviewmay be revised to meet current compliance requirements. Attending Participation: I was present and participated during the entire procedure, including non-rivera portions. Dante Murphy, 03/23/2018 3:17:37 PM This report has been [...] 9:39 AM EDT)ComponentValueRef RangeTest MethodAnalysis TimePerformed AtPathologist GmkxlzkrlIrvnflyfwbb857(H)0 - 199 mg/dLKINDRED HEALTHCARE LABComment: . ?AGE ?DESIRABLE ?? BORDERLINE HIGH [...] be performed immediately prior to Metamizole dosing. HDL49.1mg/dLKINDRED HEALTHCARE LABComment: . ?AGE ?VERY LOW ?? LOW ? NORMAL ?HIGH ?? 0-19 Y < 35 < 40 40-45 ---- 20-24 Y ---- < 40 >45 ---- >24 Y ---- < 40 40-60 >60 . Cholesterol/HDL Ratio5.6(A)[facility] LABComment: REF VALUES DESIRABLE < 3.4 HIGH RISK > 5.0 ZVE605(H)0 - 99 mg/dLKINDRED HEALTHCARE LABComment: . ? NEAR ?BORD ?AGE ?DESIRABLE ??OPTIMAL ?HIGH ? HIGH ? VERY HIGH 0-19 Y 0 - 109 --- 110-129 >/= 130 ---- 20-24 Y 0 - 119 --- 120-159 >/= 160 ---- >24 Y 0 - 99 100-129 130-159 160-189 >/=190 . JEDU819 - 40 mg/dLKINDRED HEALTH[facility]ARE XPKBajsvhajzhqaf669(H)0 - 149 mg/dLKINDRED HEALTHCARE LABComment: . ?AGE ?DESIRABLE ?? BORDERLINE HIGH [...] / LateralityCollection Method / Volume Collection TimeReceived Time04/ 9:39 AM EDT12/23/2017 12:53 PM EDT Narrative Authorizing ProviderResult TypeResult StatusHeather Cory Hastings PATROL SERGEANT-CNPLAB BLOOD ORDERABLESFinal ResultPerforming OrganizationAddressCity/State/ZIP CodePhone Number [facility] from Last 3 Months or Most Recently Relevant to Health Maintenance Insurance Care Teams Team MemberRelationshipSpecialtyStart DateEnd Date Nael Mendez MD [address] [place] [address] PCP - Cyzrbne13/18/18 [place] [address] [facility] [place] [address] Consulting PhysicianHematology and Wfzupuwp95/13/23 [place] [address] [facility] [address] [place] [address] Consulting PhysicianNephrology12/08/23 Sandra Cole MD [address] [facility] [address] [place] [address] Referring PhysicianAllergy and Xtutunucca82/24/24
[2025-07-12 09:22] LABS: Anion Gap 11.6; Blood Urea Nitrogen 28.0 mg/dL (7.0-18.0); Calcium 9.6 mg/dL (8.5-10.1); Carbon Dioxide 29.6 mmol/L (21.0-32.0); Chloride 108 mmol/L (98-107); Estimated GFR (African America 42 (>=60 mL/min/1.73m^2); Estimated GFR (Non-African Ame 34 (>=60 mL/min/1.73m^2); Glucose 111 mg/dL (74-106); Potassium 5.2 mmol/L (3.5-5.1); Sodium 144 mmol/L (136-145)
== END 2025-07-12 08:33 | disposition home or self-care (01) ==
LOC: LAB 08:36
PROVIDERS: PCP Family Medicine; Visit Provider Allergy & Immunology
DX: D83.9 Common variable immunodeficiency, unspecified (principal)
CPT/HCPCS: 36415; 80048

== ENCOUNTER 2025-07-27 08:34 | Outpatient (RCR) | payer MEDICARE, SELFPAY ==
[2025-07-27 08:59] VITALS: BP 124/87; PULSE 81; TEMP 35.9; O2SAT 95
[2025-07-27] MEDS: IMMUN GLOB IV (09:04)
[2025-07-27] MEDS: GLY IV (09:04)
[2025-07-27] MEDS: IGA OV50 IV (09:04)
[2025-07-27] MEDS: 0.9 % SODIUM CHLORIDE 250 ML 40 ML IV (09:07)
== END 2025-07-31 23:59 | disposition home or self-care (01) ==
LOC: INF 08:34
PROVIDERS: PCP Family Medicine; Visit Provider Allergy & Immunology
DX: D83.9 Common variable immunodeficiency, unspecified (principal); D80.1 Nonfamilial hypogammaglobulinemia; I12.9 Hypertensive chronic kidney disease with stage 1 through stage 4 chronic kidney disease, or unspecified chronic kidney disease; N18.32 Chronic kidney disease, stage 3b; N25.81 Secondary hyperparathyroidism of renal origin; C83.30 Diffuse large B-cell lymphoma, unspecified site
CPT/HCPCS: 36415; 80048; 81003; 83970; 96365; 96366; J1569

== ENCOUNTER 2025-07-27 08:40 | Outpatient (RCR) | payer MEDICARE, SELFPAY ==
--- OUTSIDE RECORDS SUMMARY | 2025-07-27 08:44 | XMS_ITS | Clinical Summary ---
Author Organization [facility] Address [address] [place] [address] Phone Care Team Providers Care Rn Compliance Name Role Phone Nael Mendez MD 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 Provider Miranda Sears MD Unavailable Christopher Solomon MD Unavailable [phone] Sandra Cole MD Unavailable Allergies Active AllergyReactionsCriticalityNoted VzkiJovsfcdyMuzvbysyrNxxueogd00/06/2024 OmyvwddOthkJqt64/04/2023LevofloxacinGI MnpqgCdc43/07/2023ProchlorperazineOther, Shortness of dsqadsEksh17/04/2023 anxiety, restlessness Sulfamethoxazole-TrimethoprimHives,Itching,CmqqNyd6208/04/2023TrimethoprimOther 12/03/20175405LqlqeuzhzryqHomnv47/04/2023 Sweating, insomnia, nausea. Medications MedicationSigDispense QuantityRefillsLast FilledStart DateEnd DateStatus potassium citrate 99 mg capsule Take 1 tablet by mouth once daily.Active albuterol 0.63 mg/3 mL nebulizer solution Inhale.06/13/2020Active cetirizine (ZyrTEC) 10 mg tablet Take 1 tablet (10 mg) by mouth once daily.Active artificial tears, hqhuffq-xfaxlxl-skkhlcle, 0.1-0.3-0.2 % ophthalmic solution Administer into affected [...] severity, unspecified whether complicated, unspecified whether persistent ([facility])Inhale 1 puff 2 times a day. [...] 117 capsule 5Active Active Problems ProblemNoted DateDiagnosed KffrKvdxke09/10/2024 Overview (09/10/2023): 09/2023 Previously managed by his [...] staff to send him co-pay assistance through [email or web address]. According to the patient his primary care recommended albuterol 2 inhalations twice a day as a maintenance and then every 4 hours as needed, but I am concerned about him developing tolerance to the albuterol and not having his underlying inflammation treated with a maintenance medication. Therefore I am going to attempt to get a coveredinhaled corticosteroid for maintenance. EDGAR (acute kidney injury)08/04/2023enign essential HTN08/04/2023hronic kidney tzniwapgghpcl09/04/2023KD (chronic kidney disease), stage III08/04/2023 Assessment & Plan (07/12/2025 8:48 AM EST): Patient's creatinine increased significantly. He currently sees Dr. Solomon. I explained to him hiscreatinine may have increased due to the large protein bolus associated with IVIG infusions. I willcheck his creatinine now and then prior to his next infusion. 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 This is more gentle on his kidneys. CVID (common variable immunodeficiency)08/04/2023 Overview (07/12/2025): Started Gammagard infusions 2-2-24 at [facility]. Previously on HyQvia with side effects of abdominal bloating and pain at infusion sites. Last infusion of sub cu hyqvia was in July 2023. Started IVIG in 2018. At that time he received home health out of [place] to come to his home for administration. He would experience flulike symptoms with headache drainage and GI upset that would take him approximately a week to recover from. Therefore he discontinued treatment. He was then started on HyQvia around March 2021. He was changed to IVIG at [facility] due to cost and side effects from local reaction at sub cu infusions sites. Assessment & Plan (07/12/2025 8:46 AM EST): Infusions are well-tolerated with no SE or reactions. Gammagard 40 grams monthly IV He will have blood work to evaluate renal panels today. It is possible his creatinine ernesto due to him just having his IV infusion. I explained to the patient that there is a large protein bolus once he receives an IV infusion. He will then have blood work for renal, hepatic and pre-infusion, IgG level. I discussed possible switch to Hizentra subcu weekly with less volume which should likely decrease his reactions. He will continue Gammagard infusions at [facility] as scheduled. Assessment & Plan (01/03/2025 10:57 AM EDT): [...] for the patient. Continue Gammagard infusions at [facility]. He will maintain his current dose. His [...] We will try to coordinate care with [facility]. Due to his kidney disease I do not really feel that IV is the best option, but under the [facility] IV is better than nothing. Diffuse large B-cell uasbicba74/04/2023Hyperparathyroidism, avcomjikw20/04/2023 Swbpsuowuioajqcacazji20/04/4113Triektnsxxuytlllk71/04/2023Left renal mass 08/04/2023Malignant neoplasm metastatic to fyohwe2308/04/2023Orthostatic fzfukbsfiai48/04/2023Senile nuclear wqrfgreah16/04/2023Thrombocytopenia 08/04/2023 Encounters DateTypeDepartmentCare CxbpZiorrpmqraf59/12/2025Telephone [facility] [address] [place] [address] Sarah Mills MA 07/13/2025Orders Only [facility] [address] [facility] [address] [place] [address] Christopher Soolmon MD Stage 3b chronic kidney disease (Multi) (Primary Dx); Essential xdkrmoaokzsm93/11/2025Scanned Document [facility] [address] [place] [address] Sandra Cole MD 07/12/2025Scanned Document [facility] [address] [place] [address] Sandra Cole MD 07/11/2025 11:15 AM ESTOffice Visit [facility] [address] [place] [address] Sandra Cole MD CVID (common variable immunodeficiency) (Multi) (Primary Dx); Moderate persistent asthma without complication ([facility]); Stage 3 chronic kidney disease, unspecified whether stage 3a or 3b CKD (Multi) Discharge Disposition: Home07/11/2025Scanned Document [facility] [address] [place] [address] Sandra Cole MD 07/06/2025Scanned Document [facility] [address] [place] [address] Sandra Cole MD 06/30/2025Scanned Document [facility] [address] [place] [address] Sandra Cole MD 06/30/2025Orders Only [facility] [address] [place] [address] Sandra Cole MD Hypogammaglobulinemia (Multi) (Primary Dx)from Last 3 Months Immunizations ImmunizationAdministration DatesNext DueFlu vaccine (IIV4), preservative free *Check age/dose*08/18/2022MMR vaccine, subcutaneous (MMR II)02/08/2020Pfizer COVID-19 vaccine, bivalent, age 12 years and older (30 mcg/0.3 mL)08/27/2022 Pfizer Newman Cap DUGM-LbL-864/03/2022 Social History Tobacco UseTypesPacks/DayYears UsedDateSmoking Tobacco: NeverPassive Smoke Exposure: PastSmokeless Tobacco: Never Tobacco Cessation:Counseling Given: Not Answered Alcohol UseStandard Drinks/WeekCommentsNever0 (1 standard drink = 0.6 oz pure alcohol)Sex and Gender InformationValueDate RecordedSex Assigned at BirthNot on fileLegal CxwRhgf76/26/2022 12:29 PM ESTGender IdentityNot on fileSexual OrientationNot on file Last Filed Vital Signs Vital SignReadingTime TakenCommentsBlood Oesdwzvd302/8211 11:08 AM EST Ugcrd103307/11/2025 11:08 AM JZDXzmhirbtrto26.4 ??C (97.5 ??F)02/10/2025 8:50 AM EDTRespiratory Svyj898502/10/2025 8:50 AM EDTOxygen Iudibkgdyf76%02/10/2025 8:50 AM EDTInhaled Oxygen Concentration--Vzbdyh395 kg (271 lb)07/11/2025 11:08 AM EST Jlithg746.9 cm (6')07/11/2025 11:08 AM ESTBody Mass Index36.7507/11/2025 11:08 AM EST Plan of Treatment DateTypeDepartmentCare Team (Latest Contact Info)Kxgotmtqhpd27/11/2025 11:30 AM ESTOffice Visit [facility] [address] [facility] [address] [place] [address] Christopher Solomon MD [address] [place] [address] [address] [place] [address] 08/15/2025 10:40 AM ESTOffice Visit [facility] [address] [facility] [address] [place] [address] Miranda Sears MD [address] [place] [address] [address] [place] [address] 01/09/2026 11:00 AM EDTOffice Visit [facility] [address] [place] [address] Sandra Cole MD [address] [facility] [address] [place] [address] Health MaintenanceDue DateLast DoneCommentsCT Lugcivbvjrik25/17/1961FIT-DNA (Cologuard)1960FIT1960HIV Qhxolniii66/17/1961Medicare Annual Wellness Visit (AWV)1960 1958Ikcpihitfxoff73/17/1961KD: Urine Protein Wsvgbcakb71/17/1980Hepatitis A Vaccines (1 of 2 - Risk 2-dose series)11/16/1979 Pneumococcal Vaccine (1 of 2 - PCV)11/16/1979Zoster Vaccines (1 of 2)11/16/1979 DTaP/Tdap/Td Vaccines (1 - Tdap)1982PSA Prostate Cancer Screening 2010RSV High Risk: (Elderly (60+) or Population) (1 - Risk 50-74 years 1-dose series)2010Hepatitis B Vaccines (1 of 3 - Risk 3-dose series) 2020ipid Panel04/24/Diabetes Hfmyvojky74/16/973839/, 05/21/2021, 08/08/2020, Additional history existsInfluenza Vaccine (#1) 51, 2COVID-19 Vaccine ( season)2025 06/14/2023, 08/27/2022, 01/01/2022, Additional history existsColonoscopy 21, 06/13/2022olorectal Cancer Ztfsnkqec23/13/2032Hepatitis C HqckhidpwCzeegfrvm25/08/2019, 12/11/2017, 10/28/2017MMR VaccinesCompleted 02/08/2020Irritable Bowel AwwfulmsElobxirccqgv82/13/2022, 03/23/2018HIB Vaccines Aged OutNo longer eligible based [...] this topic Procedures Procedure NamePriorityDate/TimeAssociated DiagnosisCommentsCOMPREHENSIVE METABOLIC LMDYRMykuuce16/16/2022 9:19 AM EDT AUTO TRANSPLANT VIRAL JZJAVUncfzjc19/08/2019 12:49 PM EST YZCGBSTXQIDEQisowdd48/23/2018 1:00 PM EDT LIPID SMTCTJpqfdfi27/24/2018 9:39 AM EDT from Last 3 Months or Most Recently Relevant to Health Maintenance Results * (ABNORMAL) Comprehensive Metabolic Panel (11/14/2021 9:19 AM EDT)Component ValueRef RangeTest MethodAnalysis TimePerformed AtPathologist SignatureGlucose 117(H)74 - 99 mg/dLST [facility] LQXJarguv233474 - 145 mmol/LST [facility] LABPotassium4.33.5 - 5.3 mmol/[facility] LAB Spsptifw17053 - 107 mmol/[facility] DCVVpfkiczzmrc1443 - 32 mmol/[facility] LABAnion Prn4783 - 20 mmol/[facility] LABUrea Tnwuopve140 - 23 mg/dLST [facility] LABCreatinine1.76 (H)0.50 - 1.30 mg/dLST [facility] LABGFR MALE43(A)>90 mL/min/1.73m2ST [facility] LABComment: CALCULATIONS OF ESTIMATED GFR ARE PERFORMED USING THE 2020 CKD-EPI STUDY REFIT EQUATION WITHOUT THE RACE VARIABLE FOR THE IDMS-TRACEABLE CREATININE METHODS. https://jasn.asnjournals.org/content/early//ASN.3851755218 Calcium9.58.6 - 10.3 mg/dLST [facility] LABAlbumin4.33.4 - 5.0 g/[facility] LABAlkaline Alotgtlvllq1139 - 136 U/[facility] LABTotal Protein7.06.4 - 8.2 g/dLSSAGEWEST [facility] BYMQER809 - 39 U/[facility] LABTotal Bilirubin0.70.0 - 1.2 mg/[facility] LABALT (SGPT)4310 - 52 U/[facility] LABComment: Patients treated with Sulfasalazine may generate falsely decreased results for ALT. Specimen (Source)Anatomical Location / LateralityCollection Method / Volume Collection TimeReceived Time11/14/2021 9:19 AM EDT11/14/2021 9:24 AM EDT Narrative Authorizing ProviderResult TypeResult StatusPefrem Sears MDLAB BLOOD ORDERABLES Final ResultPerforming OrganizationAddressCity/State/ZIP CodePhone Number [facility] * (ABNORMAL) Auto Transplant Viral Panel (11/06/2018 12:49 PM EST)ComponentValue Ref RangeTest MethodAnalysis TimePerformed AtPathologist SignatureCMV IgG9.1 (A)INDEXMEADOWS PSYCHIATRIC CENTER LABComment: RESULTS WERE OBTAINED WITH THE IMMULITE CMV IGG CHEMILUMINESCENT METHOD. THE MAGNITUDE OF THE MEASURED RESULT, ABOVE THE CUT-OFF, IS NOT INDICATIVE OF THE TOTAL AMOUNT OF ANTIBODY PRESENT. NEGATIVE: < 0.9 EQUIVOCAL: ?? 0.9 - 1.0 POSITIVE: >=1.1 CMV IgMNEGATIVENEGATIVEMEADOWS PSYCHIATRIC CENTER LABComment: RESULTS WERE OBTAINED WITH THE IMMULITE 2000 CMV IGM CHEMILUMINESCENT METHOD AND CANNOT BE INTERCHANGED WITH OTHER TESTING METHODS. Immunodeficiency may impair a CMV specific IgM response. Samples collected early in CMV infection may not demonstrate IgM sera conversion. Hepatitis B Surface Ab311.9<10 mIU/mLMEADOWS PSYCHIATRIC CENTER LABComment: INTERPRETIVE CRITERIA: <10 mIU/mL....NONREACTIVE >=10 mIU/mL...REACTIVE . Patients receiving more than 5 mg/day of biotin may have interference in test results. ??A sample should be taken no sooner than eight hours after ??previous dose. Contact the testing laboratory for additional information. HSV 1 IgG3.1(A)INDEXMEADOWS [facility] LABComment: REF VALUES NEGATIVE <0.9 EQUIVOCAL >=0.90 <=1.10 POSITIVE >1.10 HSV 2 IgG1.7(A)[facility] LABComment: POTENTIAL FOR CROSS-REACTIVITY BETWEEN HSV I AND HSV II EXISTS. REF VALUES NEGATIVE <0.9 EQUIVOCAL >=0.90 <=1.10 POSITIVE >1.10 Varicella IgGPOSITIVENEGATIVEMEADOWS PSYCHIATRIC CENTER LABComment: INTERPRETATIVE COMMENT NEGATIVE: No IgG antibodies [...] results in serological assays. Hep B Core IgMNON-REACTIVENONREACTIVEMEADOWS PSYCHIATRIC CENTER LABComment: Patients receiving more than 5 mg/day of biotin may have interference in test results. ??A sample should be taken no sooner than eight hours after ??previous dose. Contact the testing laboratory for additional information. Hepatitis C AbNON-REACTIVENONREACTIVEMEADOWS PSYCHIATRIC CENTER LABComment: Patients receiving more than 5 mg/day of biotin may have interference in test results. ??A sample should be taken no sooner than eight hours after ??previous dose. Contact the testing laboratory for additional information. Hepatitis B Surface AgNONREACTIVENONACTIVEMEADOWS PSYCHIATRIC CENTER LABComment: Patients receiving more than 5 mg/day of biotin may have interference in test results. ??A sample should be taken no sooner than eight hours after ??previous dose. Contact the testing laboratory for additional information. HIV 1 and 2 ScreenNON REACTIVENONSPENCER HOSPITAL LABComment: HIV Ag/Ab screen is performed using the Siemens Advia Centaur HIV Ag/Ab Combo assay which detects the presence of HIV p24 antigen as well as antibodies to HIV-1 (Group M and O) and HIV-2. SYPHILIS IGG - DATA CONVERSIONNON REACTIVENONSPENCER HOSPITAL LABComment: Patients receiving more than 5 mg/day of biotin may have interference in test results. ??A sample should be taken no sooner than eight hours after ??previous dose. Contact [phone] for additional information. Specimen (Source)Anatomical Location / LateralityCollection Method / Volume Collection TimeReceived Time11/06/2018 12:49 PM EST11/06/2018 1:54 PM EST Narrative Authorizing ProviderResult TypeResult StatusPieter Saleem MDLAB BLOOD ORDERABLESFinal ResultPerforming OrganizationAddressCity/State/ZIP CodePhone Number [facility] * Bronchoscopy (03/23/2018 1:00 PM EDT)Anatomical RegionLateralityModality EndoscopySpecimen (Source)Anatomical Location / LateralityCollection Method / VolumeCollection TimeReceived Time03/23/2018 1:00 PM EDT Narrative 08/19/2022 11:51 AM EST Patient Name: Gabriel Danielle Procedure Date: 03/23/2018 1:00 PM Date of : 1960 Room: [place] Procedure Room 7 Attending MD: Dante Murphy DO, [id number] Procedure: ? Bronchoscopy Indications: ? Bilateral atelectasis Providers: ? Dante Murphy DO (Doctor), Gabriel Mcghee RN ? (Nurse), Denny Montalvo RN (Nurse), Pat ? MD Ivan (Fellow) Referring MD: ?Katie Jeffries MD (Referring MD) Provider Care Team: ?Katie Jeffries MD (Requesting Physician) Medicines: ? Lidocaine 4% Nebulizer 3 mL, Midazolam mg IV, Fentanyl ? mcg IV, Lidocaine 2% mg, Cetacaine Acton 1 dose, ? Fentanyl IV 125 mcgs, [...] Procedure Code(s): ? --- Professional --- ? 58357, Bronchoscopy, rigid or flexible, including ? fluoroscopic guidance, when performed; with bronchial ? alveolar lavage Diagnosis Code(s): ? --- Professional --- ? J98.11, Atelectasis CPT copyright 2021 [employer]. All rights reserved. The codes documented in this report are preliminary and upon hospital medical assistant review may be revised to meet current compliance requirements. Attending Participation: ? I was present and participated during the entire procedure, including ? non-rivera portions. Dante Murphy, 03/23/2018 3:17:37 PM [...] 1:00 PM Date of : 1960 Room: [place] Procedure Room 7 Attending MD: Dante Murphy DO, [id number] Procedure: Bronchoscopy Indications: Bilateral atelectasis Providers: Dante Murphy DO (Doctor), Gabriel Mcghee RN (Nurse), Denny Montalvo RN (Nurse), Pat Love MD (Fellow) Referring MD: Katie Jeffries MD (Referring MD) Provider Care Team: Katie Jeffries MD (Requesting Physician) Medicines: Lidocaine 4% Nebulizer 3 mL, Midazolam mg IV,Fentanyl mcg IV, Lidocaine 2% mg, Cetacaine Acton 1 dose, Fentanyl IV 125 mcgs, Lidocaine [...] referring physician. Procedure Code(s): --- Professional --- 23483, Bronchoscopy, rigid or flexible, including fluoroscopic guidance, when performed; withbronchial alveolar lavage Diagnosis Code(s): --- Professional --- J98.11, Atelectasis CPT copyright 2021 [employer]. All rights reserved. The codes documented in this report are preliminary and upon hospital medical assistant reviewmay be revised to meet current compliance [...] light or sedentary nature. Authorizing ProviderResult TypeResult StatusJanhardik A Nesha MDENDOSCOPY PROCEDURE ORDERABLESEdited Result - Final * (ABNORMAL) Lipid Panel (12/23/2017 9:39 AM EDT)ComponentValueRef RangeTest MethodAnalysis TimePerformed AtPathologist AuucyrkkvYsddjxhaoid293(H)0 - 199 mg/dLMEADOWS PSYCHIATRIC CENTER LABComment: . ?AGE ?DESIRABLE ?? BORDERLINE HIGH [...] be performed immediately prior to Metamizole dosing. HDL49.1mg/dLMEADOWS PSYCHIATRIC CENTER LABComment: . ?AGE ?VERY LOW ?? LOW ? NORMAL ?HIGH ?? 0-19 Y < 35 < 40 40-45 ---- 20-24 Y ---- < 40 >45 ---- >24 Y ---- < 40 40-60 >60 . Cholesterol/HDL Ratio5.6(A)[facility] LABComment: REF VALUES DESIRABLE < 3.4 HIGH RISK > 5.0 DGG230(H)0 - 99 mg/dLMEADOWS PSYCHIATRIC CENTER LABComment: . ? NEAR ?BORD ?AGE ?DESIRABLE ??OPTIMAL ?HIGH ? HIGH ? VERY HIGH 0-19 Y 0 - 109 --- 110-129 >/= 130 ---- 20-24 Y 0 - 119 --- 120-159 >/= 160 ---- >24 Y 0 - 99 100-129 130-159 160-189 >/=190 . DJJD455 - 40 mg/dLMEADOWS PSYCHIATRIC CENTER RGWSexurqnswebwp735(H)0 - 149 mg/dLMEADOWS PSYCHIATRIC CENTER LABComment: . ?AGE ?DESIRABLE ?? BORDERLINE HIGH [...] Narrative Authorizing ProviderResult TypeResult StatusHeather Cory Hastings CIRCULAR RIPSAW OPERATOR-CNPLAB BLOOD ORDERABLESFinal ResultPerforming OrganizationAddressCity/State/ZIP CodePhone Number [facility] from Last 3 Months or Most Recently Relevant to Health Maintenance Insurance * Guarantor: Gabriel Danielle TypeRelation to PatientDate of BirthPhone Billing AddressPersonal/UisfhqOxxj16/17/1961 [facility] [address] [place] [address] Care Teams Team MemberRelationshipSpecialtyStart DateEnd Date Nael Mendez MD [address] [place] [phone] PCP - Hjtcsim80/18/18 Miranda Sears MD [address] [place] [address] [address] [place] [address] Consulting PhysicianHematology and Ofrzpiun67/13/23 Christopher Solomon MD [address] [place] [address] [address] [place] [address] Consulting PhysicianNephrology12/08/23 Sandra Cole MD [address] [facility] [place] [address] Referring PhysicianAllergy and Gpooiewgwb44/24/24
--- OUTSIDE RECORDS SUMMARY | 2025-07-27 08:44 | XMS_ITS ---
Author Organization [facility] Address [address] [place] [address] Care Team Providers Care Sewer And Inspector Name Role Phone Nael Mendez MD Unavailable [phone] Nohelia Machado DO Unavailable Unavailable Christopher Solomon MD Unavailable Unavailable Sandra Cole MD Unavailable [phone] Nael Mendez MD 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 Provider [phone] Active Problems ProblemNoted DateDiagnosed DateBMI 37.0-37.9, adult05/06/2024hronic pain bpmlaneb62/18/2024Morbid zrwspis4010/23/2023 Overview (10/23/2023): BMI >= to 35 with multiple co-morbid conditions. Spasm09/11/2023dverse effect of antineoplastic and immunosuppressive drugs, zdotiak1602/05/20231837Tyoyeg47/07/2023hronic wspkgwz5502/05/2023ommon variable ugiteipeqgxbvhox39/07/2023LBCL (diffuse large B cell lymphoma)02/05/2023 Overview (11/04/2024): Initial DX 2016 Drug-induced diffuse interstitial pulmonary llpujvpm41/07/2023rug-induced gxvmzswxgozvhf07/07/2023Esophageal oxvccg8302/05/2023Hypogammaglobulinemia 02/05/2023Immunodeficiency due to external tvzhuj5202/05/2023Migraine without aura, intractable, with status zbytvqdngsa43/07/2023Mixed hyperlipidemia 02/05/2023Non-seasonal allergic pqncqqir82/07/1972Mdvhvzxlcqfulr09/07/2023 Secondary hyperparathyroidism of renal wjnylu6002/05/2023Secondary malignant neoplasm of left kidney and renal jeyvzr3802/05/2023Secondary malignant neoplasm of spinal canal02/05/2023Secondary malignant neoplasm of jjligk3602/05/2023Stage 3b chronic kidney zsqyxxx3302/05/2023Stem cells transplant zjzfzg8402/05/2023 Overview (11/04/2024): CAR T Cell infusion with tisageniecleucel 2019 Preparative Regimen of fludarabine and Cytoxan Systolic zlpyfpxogsp06/07/2023Thickening of nrfacl5502/05/2023Venous (peripheral) lhhleohrjohtw24/07/2023 Current Treatment and Therapy Plans No current plan information found. Past Treatment and Therapy Plans No past plan information found. Lifetime Dose Tracking * ChemicalLifetime DoseAutomatic EntryManual HctkvEthuohdkp735.44 rEx807.44 mSv0 mSv Resolved Problems ProblemNoted DateDiagnosed DateResolved DateOther obesity due to excess calories /
--- OUTSIDE RECORDS SUMMARY | 2025-07-27 08:44 | XMS_ITS | Clinical Summary ---
Author Organization [facility] Healthcare Address [address] [place] [address] Care Team Providers Care Installation Engineer Name Role Phone Nael Mendez MD Unavailable [phone] Nohelia Machado DO Unavailable Unavailable Christopher Solomon MD Unavailable Unavailable Sandra Cole MD Unavailable [phone] Nael Mendez MD 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 Provider [phone] Allergies Active AllergyReactionsCriticalityNoted ExpkQfwpxusnJubmpvsbwNoqsiofe64/06/2024 Vlztely8302/05/2023 Other Reaction(s): nausea, chills, vomiting JfdktaaizkYkxmlAzygxh45/24/2025 Pain in the kidney area, unable to urinate Xeonvdboukqh89/07/2023 Other Reaction(s): diarrhea Tpnxkyewwqlobkyx58/07/2023 Other Reaction(s): Hives nausea Sulfamethoxazole-Cwmcktxapeqv09/07/2023 Other Reaction(s): Hives DftgzgvyacgzEya97/04/2023 Sweating, insomnia, nausea. Medications MedicationSigDispense QuantityRefillsLast FilledStart [...] mouth DailyActive cholecalciferol (Vitamin D-3) 250 MCG (34297 UT) capsule Take 1 capsule by mouth [...] as needed for wheezing or shortness of tyhyfu075Active valsartan (Diovan) 160 MG tablet Take 160 [...] wheezing or shortness of breath 54 g tive spironolactone (Aldactone) 25 MG tablet Indications:Venous insufficiencyTake 1 tablet (25 mg) by mouth Daily 90 tablet 5009/12/2025ctive Active Problems ProblemNoted DateDiagnosed DateBMI 37.0-37.9, adult05/06/2024hronic pain ljdmrauq93/18/2024Morbid szlmrqc8410/23/2023 Overview (10/23/2023): BMI >= to 35 with multiple co-morbid conditions. Spasm09/11/2023dverse effect of antineoplastic and immunosuppressive drugs, wxgscjw6602/05/20230542Cyrlkg87/07/2023hronic esfqwte8302/05/2023ommon variable erxvdlgkuzqktrpu86/07/2023LBCL (diffuse large B cell lymphoma)02/05/2023 Overview (11/04/2024): Initial DX 2016 Drug-induced diffuse interstitial pulmonary rukzepte09/07/2023rug-induced iwowcbfgpygjhk60/07/2023Esophageal lhihis2802/05/2023Hypogammaglobulinemia 02/05/2023Immunodeficiency due to external hflfub8702/05/2023Migraine without aura, intractable, with status usksdviqabu59/07/2023Mixed hyperlipidemia 02/05/2023Non-seasonal allergic stoeaksl68/07/0504Apdeurzzfrnmod21/07/2023 Secondary hyperparathyroidism of renal plbaou8902/05/2023Secondary malignant neoplasm of left kidney and renal nrkvfj8902/05/2023Secondary malignant neoplasm of spinal canal02/05/2023Secondary malignant neoplasm of vkhoas1802/05/2023Stage 3b chronic kidney xdfdguc7402/05/2023Stem cells transplant ojyqhp6102/05/2023 Overview (11/04/2024): CAR T Cell infusion with tisageniecleucel 2019 Preparative Regimen of fludarabine and Cytoxan Systolic csmjfzpqupv32/07/2023Thickening of tcyxvw2302/05/2023Venous (peripheral) rawgqqdwcsgqy29/07/2023 Resolved Problems ProblemNoted DateDiagnosed DateResolved DateOther obesity due to excess calories / Encounters DateTypeDepartmentCare CqsiWahjfzqkrpz51/25/2025Telephone [facility] [address] [place] [address] Ana Maria Bower RN Care Coordination (Medicare Wellness)5Clinisync Result Encounter [facility] External Department Unsolicited Provider, Generic External Data 07/06/2025linisync Result Encounter [facility]OM[facility] External Department Unsolicited Provider, Generic External Data 06/14/2025Telephone [facility] [address] [place] [address] Elizabeth Clements MA Care Vrykrdnkbuyy14/01/2025linisync Result Encounter [facility] External Department Unsolicited Nael Mendez MD 05/25/2025 9:00 AM EDTOffice Visit [address] [place] [address] Nael Mendez MD Chronic pain syndrome (Primary Dx); Moderate persistent asthma without complication (HCC); Drug-induced diffuse interstitial pulmonary fibrosis; Morbid obesity ([facility]); BMI 37.0-37.9, adult; Stage 3b chronic kidney disease ([facility]-HCC); Venous tsprjldosiwjr94/24/2025amboo flowsheet [facility] [place] [address] Nael Mendez MD 05/25/20256853Nnjyoh80/17/3629Befdfx23/08/2025 1:45 PM EDTOffice Visit [address] [place] [address] Nael Mendez MD Edema of both legs (Primary Dx); Drug-induced diffuse interstitial pulmonary fibrosis; Moderate persistent asthma without complication (HCC); Systolic dysfunction; Stage 3b chronic kidney disease (CMS-HCC)09/08/2025Bamboo flowsheet [facility] [address] [facility] [address] [place] [address] Nael Mendez MD 05/09/2025Travelfrom Last 3 Months Immunizations ImmunizationAdministration DatesNext DueInfluenza, injectable, quadrivalent, preservative free06/14/2023,08/18/2022MMR02/08/2020Moderna Bivalent Booster Kysxuviwwyw02/27/2022fizer Bivalent Booster 12 Years And Older08/27/2022 Family History Medical HistoryRelationNameCommentsMylomaBrother 1Heart diseaseBrother 2Steve Spinal diseaseBrother 2SteveCOPDBrother 3AlfredHeart failureBrother 3Alfred Alcohol abuseFatherAlfredArthritisFatherAlfredCirculation problemsFatherAlfred DiabetesFatherAlfredEmphysemaFatherAlfredHeart diseaseFatherAlfredNeuropathy FatherAlfredProstate cancerFatherAlfredRestless legs syndromeFatherAlfredCancer Maternal GrandfatherGlenn KramerAlzheimer's diseaseMaternal GrandmotherMae KramerMental illnessMaternal GrandmotherMae KramerAlzheimer's diseaseMotherCarol AsthmaMotherCarolDementiaMotherCarolMental illnessMotherCarolCancerPaternal GrandfatherGlenn KramerAlzheimer's diseasePaternal GrandmotherMae KramerMental illnessPaternal GrandmotherMae KramerOvarian cancerSisterRelationNameStatus CommentsBrother 1AliveBrother 2SteveAliveBrother 6CohrfgNfxnxwaaRgmlqiurKjgqi7 daughterFatherAlfredDeceasedMaternal GrandfatherGlenn KramerDeceasedMaternal GrandmotherMae KramerDeceasedMotherCarolDeceasedPaternal GrandfatherGlenn Coelho DeceasedPaternal GrandmotherMae SsnugzWloigggtTetyavClntuiqtj2KujEawvo7 son Social History Tobacco UseTypesPacks/DayYears UsedDateSmoking Tobacco: NeverSmokeless Tobacco: Never Tobacco Cessation:Counseling Given: Yes Alcohol UseStandard Drinks/WeekCommentsNot Currently0 (1 standard drink = 0.6 oz pure alcohol)Caffeine intake: 1-2 cups per day hdiuH9439 Health LiteracyAnswer Date RecordedHow often do you need to have someone help you when you read instructions, pamphlets, or other written material from your doctor or pharmacy? Cvkfgm3608/19/2024Humiliation, Afraid, Rape, and Kick questionnaireAnswerDate RecordedWithin the [...] times a week08/19/2024How often do you attend hindu or judaism services?Never08/19/2024o you belong to any clubs or organizations such as hindu groups, unions, fraternal or athletic groups, or school groups?No 08/19/2024How often do you attend meetings of the clubs or organizations you belong to?Never08/19/2024re you , , , , never , or living with a partner?Wwnczbs4608/19/2024UDIT-CAnswerDate RecordedQ1: How often do you have a [...] and heating?Not very hard08/19/2024HQ-2AnswerDate RecordedPatient Health Questionnaire-2 Sruic560[facility] [place] of Occupational Health - Occupational Stress QuestionnaireAnswerDate [...] were you homeless or living in a alf (including now)?No 08/19/2024Sex and Gender InformationValueDate RecordedSex Assigned at BirthNot on fileLegal JbgGnzr8711/13/2022 7:14 PM EDTGender IdentityNot on fileSexual OrientationNot on file Last Filed Vital Signs Vital SignReadingTime TakenCommentsBlood Epaeidoe695/7803 9:29 AM EST Mdtdv2078 8:58 AM EDTTemperature--Respiratory Ussp8924 8:17 AM EDTOxygen Rtknlfqiga83%05/25/2025 8:58 AM EDTInhaled Oxygen Concentration-- Njxxqm716 kg (273 lb)05/25/2025 8:58 AM FYLRvkbjo029.9 cm (6')05/25/2025 8:58 AM EDTBody Mass Index37.0309 8:58 AM EDT Plan of Treatment DateTypeDepartmentCare Team (Latest Contact Info)Lmkhnzxdacn17/09/2025 9:00 AM ESTOffice Visit NOM[facility] [address] [address] Nael Mendez MD 112 [facility] [address] [place] [address] Health MaintenanceDue DateLast DoneCommentsCT Nlxddvckfxtw35/17/1961FIT-DNA 1960FIT1960FOBT1960 5681Avcvaqeqoanwh49/17/1961neumococcal Vaccine: Pediatrics (0 to 5 Years) and At-Risk Patients (6 to 64 Years) (1 of 2 - PCV)11/16/1979COVID-19 Vaccine ( - 2024- season), 08/27/2022, 08/27/2022, Additional history existsMedicare Annual Wellness (AWV) /01/2025, 10/23/2023, 02/25/2022, Additional history existsInfluenza Vaccine (#1)/, 08/18/2022ostponed from 05/02/2025 (Patient Refused)Osvmaftjzqg46, 06/13/2022olorectal Cancer Screening 06/13/2032 Procedures Procedure NamePriorityDate/TimeAssociated DiagnosisCommentsALL BASIC METABOLIC PRKOOWnsuzxw61/11/2025 8:51 AM EST ALL IMMUNOGLOBULIN HFnvwdzc00/05/2025 8:52 AM EST [facility] CMP (CMP) (FOR REMOTE [facility] USE)Ignsyvl0107/06/2025 8:52 AM EST ALL BASIC METABOLIC BDVXDVccvxut30/01/2025 8:40 AM EDT OVPSFBNMTIHJupvqng90/13/2022 12:00 PM EDT from Last 3 Months or Most Recently Relevant to Health Maintenance Results * (ABNORMAL) ALL BASIC METABOLIC PANEL (07/12/2025 8:51 AM EST) Only the most recent of2 resultswithin the time period is included. ComponentValueRef RangeTest MethodAnalysis TimePerformed AtPathologist Signature DWTNNK162050 - 145 mmol/LTBHPOTASSIUM5.2(H)3.5 - 5.1 mmol/RXWHVMNLSSWU358(H)98 - 107 mmol/LTBHCARBON ZVNDBBV61.621.0 - 32.0 mmol/LTBHANION GAP11.1DLJGQFNUOO708 (H)74 - 106 mg/dLTBHBLOOD UREA YNLVVROZ40.0(H)7.0 - 18.0 mg/dLTBHCREATININE1.97 (H)0.70 - 1.30 mg/dLTBHTBH EGFR-AF FXJMZJNK78(L)>=60 mL/min/1.73m 2TBHTBH EGFR- NON AF TCPNDXPO20(L)>=60 mL/min/1.73m 2TBHBUN CREATININE RATIO14.2TMXAHFLHXV4.6 8.5 - 10.1 mg/dLTBHSpecimen (Source)Anatomical Location / LateralityCollection Method / VolumeCollection TimeReceived Time07/12/2025 8:51 AM EST07/12/2025 8:52 AM EST Narrative CLINISYNC - 07/12/2025 9:22 AM EST Authorizing ProviderResult TypeResult StatusGeneric External Data Provider CLINISYNCFinal ResultPerforming OrganizationAddressCity/State/ZIP CodePhone Number [facility] * (ABNORMAL) [facility]CF CMP (CMP) (FOR REMOTE [facility] USE) (07/06/2025 8:52 AM EST) ComponentValueRef RangeTest MethodAnalysis TimePerformed AtPathologist OmesbfklbTQZXCC100042 - 145 mmol/LTBHPOTASSIUM4.83.5 - 5.1 mmol/LTBHCHLORIDE [address]19 - 107 mmol/LTBHCARBON SWMWLRZ65.321.0 - 32.0 mmol/LTBHANION GAP11.5TBH CAFWWDS081(H)74 - 106 mg/dLTBHBLOOD UREA QCDQRLVQ66.0(H)7.0 - 18.0 mg/dLTBH CREATININE2.05(H)0.70 - 1.30 mg/dLTBHTBH EGFR-AF IBHTDGYH02(L)>=60 mL/min/1.73m 2TBHTBH EGFR-NON AF DBRXVJZB97(L)>=60 mL/min/1.73m 2TBHBUN CREATININE RATIO16.7AEEUOZKIRK9.68.5 - 10.1 mg/dLTBHBILIRUBIN TOTAL0.50.2 - 1.0 mg/dLTBHASPARTATE AMINO GJDHMWVDRUT0794 - 37 U/LTBHALANINE UDGUWPXBQNPXFYOM3826 - 63 U/LTBHALKALINE ZIERTQNWBIX1622 - 116 U/LTBHTOTAL PROTEIN7.16.4 - 8.2 g/dLTBHALBUMIN LEVEL3.43.4 - 5.0 g/dLTBHGLOBULIN3.7g/dLTBH ALBUMIN GLOBULIN RATIO0.9TBHSpecimen (Source)Anatomical Location / Laterality Collection Method / VolumeCollection TimeReceived Time07/06/2025 8:52 AM EST 07/06/2025 8:53 AM EST Narrative CLINISYNC - 07/06/2025 9:42 AM EST Authorizing ProviderResult TypeResult StatusGeneric External Data Provider CLINISYNCFinal ResultPerforming OrganizationAddressCity/State/ZIP CodePhone Number [facility] * ALL IMMUNOGLOBULIN G (07/06/2025 8:52 AM EST)ComponentValueRef RangeTest MethodAnalysis TimePerformed AtPathologist SignatureTBH IMMUNOGLOBULIN G, QN [id number] - 1613 mg/dLTBHComment: Performed at: ?? - [facility] [address] ??[id number] Sociology Professor: Benjamín Vora PhD, Phone: ??[phone] Specimen (Source)Anatomical Location / LateralityCollection Method / Volume Collection TimeReceived Time07/06/2025 8:52 AM EST07/06/2025 8:53 AM EST Narrative CLINISYNC - 07/07/2025 8:09 AM EST Authorizing ProviderResult TypeResult StatusGeneric External Data Provider CLINISYNCFinal ResultPerforming OrganizationAddressCity/State/ZIP CodePhone Number [facility]YFORMERLY [facility] * Colonoscopy (06/13/2022 12:00 PM EDT)Anatomical RegionLateralityModality EndoscopySpecimen (Source)Anatomical Location / LateralityCollection Method / VolumeCollection TimeReceived Time06/13/2022 12:00 PM EDT Narrative 06/13/2022 12:00 PM EDT PERFORMED AT [facility] LOCATION:[id number] Procedure Note CONVERSION, GENERIC - 01/15/2023 PERFORMED AT [facility] LOCATION:[id number] Authorizing ProviderResult TypeResult StatusNael Mendez MDENDOSCOPY PROCEDURE ORDERABLESFinal Result from Last 3 Months or Most Recently Relevant to Health Maintenance Insurance Care Teams Team MemberRelationshipSpecialtyStart DateEnd Date Nael Mendez MD [address] [place] [address] (Fax) PCP - Aranza MIN09/01/21 Nael Mendez MD [address] [place] [address] PCP - GeneralFamily Medicine05/09/25 Nohelia Machado DO [address] [place] [address] Referring PhysicianPulmonary Disease10/09/23 [place] [address] [facility] [address] Referring PhysicianNephrology10/09/23 [place] [address] [place] [address] Referring PhysicianAllergy and Immunology10/09/23 Miranda Sears Referring PhysicianOncolog09/01/18
--- OUTSIDE RECORDS SUMMARY | 2025-07-27 08:44 | XMS_ITS | Encounter Summary ---
Author Organization [facility] Address [address] [place] [address] Phone Care Team Providers Care Paper Inserter Name Role Phone Nael Mendez MD 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 Provider [phone] Miranda Sears MD Unavailable Christopher Solomon MD Unavailable [phone] Sandra Cole MD Unavailable Encounter Details DateTypeDepartmentCare Team (Latest Contact Info)Zbhmlqyvfxx79/12/2025Telephone [facility] [address] [place] [address] Sarah Mills MA Social History Tobacco UseTypesPacks/DayYears UsedDateSmoking Tobacco: NeverPassive Smoke Exposure: PastSmokeless Tobacco: NeverAlcohol UseStandard Drinks/WeekComments Never0 (1 standard drink = 0.6 oz pure alcohol)Sex and Gender InformationValue Date RecordedSex Assigned at BirthNot on fileLegal QitWlst32/26/2022 12:29 PM ESTGender IdentityNot on fileSexual OrientationNot on filedocumented as of this encounter Plan of Treatment DateTypeDepartmentCare Team (Latest Contact Info)Amacsjrcyzo85/11/2025 11:30 AM ESTOffice [facility] [address] [place] [address] [place] [address] [place] [address] 08/15/2025 10:40 AM ESTOffice Visit [facility] [address] [place] [address] [address] [place] [address] Miranda Sears MD [address] [place] [address] [address] [place] [address] 01/09/2026 11:00 AM EDTOffice Visit [facility] [address] [facility] [address] [place] [address] Sandra Cole MD [address] [facility], [facility] [address] [place] [address] documented as of this encounter Visit Diagnoses Not on filedocumented in this encounter Additional Health Concerns AssessmentNoted TimeA fall risk assessment has been completed for the patient 02/17/2025 11:03 AM EDTdocumented as of this encounter Care Teams Team MemberRelationshipSpecialtyStart DateEnd Date Nael Mendez MD [address] [place] [address] PCP - Znnfiag32/18/18 Miranda Sears MD [address] [place] [address] [address] [place] [address] Consulting PhysicianHematology and Uczrdzkf50/13/23 Christopher Solomon MD [address] [place] [address] [address] [place] [address] Consulting PhysicianNephrology12/08/23 Sandra Cole MD [address] [facility], [facility] [address] [place] [address] Referring PhysicianAllergy and Zakrcgkrsb18/24/24documented as of this encounter
--- OUTSIDE RECORDS SUMMARY | 2025-07-27 08:44 | XMS_ITS | Encounter Summary ---
Author Organization [facility] Address [address] [facility] [place] [address] Care Team Providers Care Fur Tinter Name Role Phone Nael Mendez MD Unavailable [phone] Nohelia Machado DO Unavailable Unavailable Christopher Solomon MD Unavailable Unavailable Sandra Cole MD Unavailable [phone] Nael Mendez MD 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 Provider [phone] Reason for Visit * ReasonOnset DateCommentsCare Oimdpnbuqozg95/25/2025Medicare Wellness Encounter Details DateTypeDepartmentCare Team (Latest Contact Info)Szqoprjbwfs04/25/2025Telephone [facility] [address] 112 [facility] 100 [place] [address] Ana Maria Bower, KLEVER Care Coordination (Medicare Wellness) Social History Tobacco UseTypesPacks/DayYears UsedDateSmoking Tobacco: NeverSmokeless Tobacco: NeverAlcohol UseStandard Drinks/WeekCommentsNot Currently0 (1 standard drink = 0.6 oz pure alcohol)Caffeine intake: 1-2 cups per day jvucD3814 Health Literacy AnswerDate RecordedHow often do you need to have someone help you when you read instructions, pamphlets, or other written material from your doctor or pharmacy? Nkrwph6808/19/2024Humiliation, Afraid, Rape, and Kick questionnaireAnswerDate RecordedWithin the [...] times a week08/19/2024How often do you attend mormon or restoration services?Never08/19/2024o you belong to any clubs or organizations such as mormon groups, unions, fraISpeak or athletic groups, or school groups?No 08/19/2024How often do you attend meetings of the clubs or organizations you belong to?Never08/19/2024re you , , , , never , or living with a partner?Bohyrfz4908/19/2024UDIT-CAnswerDate RecordedQ1: How often do you have a [...] and heating?Not very hard08/19/2024HQ-2AnswerDate RecordedPatient Health Questionnaire-2 Ompdc951Finuintah [facility] center [place] of Occupational Health - Occupational Stress QuestionnaireAnswerDate [...] steady place to sleep or slept in [facility] (including now)?No04/08/2023 Housing Stability Vital SignAnswerDate RecordedIn the last 12 months, was there a time when you were not able to pay the mortgage or rent on time?No08/19/2024 Number of Times Moved in the Last YearNot on file08/19/2024t any time in the past 12 months, were you homeless or living in a long-term (including now)?No 08/19/2024Sex and Gender InformationValueDate RecordedSex Assigned at BirthNot on fileLegal YjeNybk3811/13/2022 7:14 PM EDTGender IdentityNot on fileSexual OrientationNot on filedocumented as of this encounter Miscellaneous Notes * Telephone Encounter - Ana Maria Bower RN - 07/26/2025 2:46 PM EST Working on Medicare Wellness Report. Spoke with pt and he stated he is coming into the office in August and will schedule his Wellness when he is here. documented in this encounter Plan of Treatment DateTypeDepartmentCare Team (Latest Contact Info)Pelnnffdxkd96/09/2025 9:00 AM ESTOffice Visit [facility] [place] [facility] 112 [facility] 100 [place] [address] Nael Mendez MD 112 [facility] 100 [place] [address] (Fax) documented as of this encounter Visit Diagnoses Not on filedocumented in this encounter Additional Health Concerns AssessmentNoted TimePHQ-9 Depression Total Score: 11011/04/2024 9:00 AM EST documented as of this encounter Care Teams Team MemberRelationshipSpecialtyStart DateEnd Date Nael Mendez MD 112 [facility] 100 [place] [address] PCP - [place] MA09/01/21 Nael Mendez MD 112 [facility] 100 [place] [address] (Fax) PCP - GeneralFamily Medicine05/09/25 Nohelia Machado DO [address] [place] [address] Referring PhysicianPulmonary Disease10/09/23 [place] [address] [place] [address] Referring PhysicianNephrology10/09/23 [place] [address] [place] [address] Referring PhysicianAllergy and Immunology10/09/23 Miranda Sears Referring PhysicianOncology1documented as of this encounter
--- OUTSIDE RECORDS SUMMARY | 2025-07-27 08:44 | XMS_ITS | Encounter Summary ---
Author Organization [facility] Address [address] [place] [address] Phone Care Team Providers Care Director Of Global Talent Name Role Phone Nael Mendez MD 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 Provider Miranda Sears MD Unavailable Christopher Solomon MD Unavailable [phone] Sandra Cole MD Unavailable Encounter Details DateTypeDepartmentCare Team (Latest Contact Info)Ggpfxmbcpnl23/12/2025Orders Only [facility] [address] [facility] [address] [place] [address] Christopher Solomon MD [address] [place] [address] [address] [place] [address] Stage 3b chronic kidney disease (Multi) (Primary Dx); Essential hypertension Social History Tobacco UseTypesPacks/DayYears UsedDateSmoking Tobacco: NeverPassive Smoke Exposure: PastSmokeless Tobacco: NeverAlcohol UseStandard Drinks/WeekComments Never0 (1 standard drink = 0.6 oz pure alcohol)Sex and Gender InformationValue Date RecordedSex Assigned at BirthNot on fileLegal TyvYuud21/26/2022 12:29 PM ESTGender IdentityNot on fileSexual OrientationNot on filedocumented as of this encounter Plan of Treatment DateTypeDepartmentCare Team (Latest Contact Info)Osjoxurkphy95/11/2025 11:30 AM ESTOffice Visit [facility] [address] [facility] [address] [place] [address] Christopher Solomon MD [address] [place] [address] [address] [place] [address] 08/15/2025 10:40 AM ESTOffice Visit [facility] [address] [place] [address] [address] [place] [address] Miranda Sears MD [address] [place] [address] [address] [place] [address] 01/09/2026 11:00 AM EDTOffice Visit [facility] [address] [facility] [address] [place] [address] Sandra Cole MD [address] [facility], [facility] [address] [place] [address] NameTypePriorityAssociated DiagnosesOrder ScheduleBasic Metabolic PanelLab Routine Stage 3b chronic kidney disease (Multi) Essential hypertension Expected: 07/13/2025 (Approximate), Expires: 07/13/2026documented as of this encounter Visit Diagnoses Diagnosis Stage 3b chronic kidney disease (Multi)- Primary Essential hypertension Unspecified essential hypertension documented in this encounter Additional Health Concerns AssessmentNoted TimeA fall risk assessment has been completed for the patient 02/17/2025 11:03 AM EDTdocumented as of this encounter Care Teams Team MemberRelationshipSpecialtyStart DateEnd Date Nael Mendez MD [address] [place] [address] PCP - Lhnchoa06/18/18 Miranda Sears MD [address] [place] [address] [address] [place] [address] Consulting PhysicianHematology and Yeigjjzl90/13/23 Christopher Solomon MD [address] [place] [address] [address] [place] [address] Consulting PhysicianNephrology12/08/23 Sandra Cole MD [address] [facility], [facility] [address] [place], [place] [address] Referring PhysicianAllergy and Rdmshnynpm96/24/24documented as of this encounter
--- OUTSIDE RECORDS SUMMARY | 2025-07-27 08:49 | XMS_ITS | CCD ---
Author Organization [facility] Care Team Providers Care Patient Care Nursing Assistant Name Role Phone Christopher Watkins Unavailable Unavailable Nale Farias Unavailable Unavailable Nael Farias Unavailable Unavailable [...] [place]on Attending Unavailable Hemeyer, Dr. Nael Brand [facility] Unava ilable Sears, Anirudh C Admitting Unavailable Sears, Anirudh C Attending Unavailable Hemeyer, Dr. Nael Brand [facility] Unava ilable Sears, Anirudh C Admitting Unavailable Sears, Anirudh C Attending Unavailable Hemeyer, Dr. Nael Brand [facility] Unava ilable Hemeyer, Dr. Nael Brand [facility] Unava ilable Roland, Dr. White Attending Unavailable Roland, Dr. White Referring Unavailable Hemeyer, Dr. Nael Brand [facility] Unava ilable Roland, Dr. White Attending Unavailable Roland, Dr. White Referring Unavailable Hemeyer, Dr. Nael Brand [facility] Unava ilable Roland, Dr. White Attending Unavailable Roland, Dr. White Referring Unavailable Hemeyer, Dr. Nael Brand [facility] Unava ilable Stephanieyer, Dr. Nael Brand Referring Unava ilable Kelsey, Dr. Sandra Lopez Attending Unav ailable Hemeyer, Dr. Nael Brand [facility] Unava ilable Sears, Anirudh C Attending Unavailable Sears, Anirudh C Admitting Unavailable Hemeyer Nael GRACE 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 Provider Anirudh Sears MD Unavailable Christopher Watkins MD Unavailable MD Nael Farias 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 Provider DO Nadeem Morrison Attending Provider [phone] Nael Farias 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 Unavailable Nadeem Morrison Attending Unavailab Nadeem Lopez Admitting Unavailab Nael Garcia MD Unavailable Nael Farias MD 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 Provider [phone] Nohelia Machado DO Unavailable Unavailable Christopher Watkins MD Unavailable Unavailable Sandra Cole MD Unavailable Nael Farias MD 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 Provider Nael Farias MD Unavailable Nael Farias MD 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 Provider [phone] Sandra Cole MD Unavailable [phone] Nael Farias MD Unavailable [phone] Nael Farias MD 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 Provider Nael Farias MD 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 Provider [phone] Anirudh Sears MD Unavailable Christopher Watkins MD Unavailable Sandra Cole MD Unavailable [phone] SEARS, ANIRUDH C Attending Unavailable HEMENAEL WEEKS 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 Unavailable SEARS, ANIRUDH C Attending Unavailable SEARS, ANIRUDH C Referring Unavailable NAEL FARIAS 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 Unavailable SEARS, ANIRUDH C Attending Unavailable NAEL FARIAS 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 Unavailable Nael Farias MD 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 Provider NAEL FARIAS Attending Unavailable HEMEYER, EDSCOTT J Attending Unavailable HEMEYER, EDSCOTT J Attending Unavailable HEMEYER, EDSCOTT J Attending Unavailable HEMEYER, EDSCOTT J Attending Unavailable HEMEYER, EDSCOTT J Attending Unavailable Nohelia Machado DO Unavailable Unavailable Roland GRACE, Christopher Unavailable Unavailable Sandra Cole MD Unavailable [phone] SANDRA COLE Attending Unavailable HEMEEVELYN EDSCOTT Partida 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 Unavailable ROLAND, CHRISTOPHER Attending Unavailable HEMEEVELYN, EDSCOTT Partida 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 Unavailable ROLAND, CHRISTOPHER Attending Unavailable HEMEEVELYN, EDSCOTT Partida 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 Unavailable SANDRA COLE Attending Unavailable NAEL FARIAS 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 Unavailable Christopher Watkins MD Unavailable Sandra Cole MD Unavailable [phone] Allergies Allergy ClassificationReported Allergen(s)Allergy TypeDate of OnsetReaction(s) Facility (20 sources)Dapsone; Translations: [dapsone]Drug Sggsgbu77-63-7496[facility]SkuhmncwjHol[facility] (20 sources)Prochlorperazine; Translations: [Compazine]Drug AllergyThe [facility] (20 sources)Sulfamethoxazole / Trimethoprim; Translations: [Bactrim DS TABS]Drug Wnynyan70-61-3362Ngsad, Itching, OwynJE-Yesiqgjwqpljh-Tdnkvlby B102 Work Phone: (20 sources)voriconazole; Translations: [voriconazole]Drug Ztmahai78-81-5491 [facility] 3 DO Work Phone: (1 source)PenicillinsAllergy to ujngqmwtn41-24-4404WqgminrAs[facility] (20 sources)Prochlorperazine; Translations: [prochlorperazine]Drug Allergy 95-02-0347Bmmpi, Shortness of breathMer[facility] (6 sources)Sulfamethoxazole; Translations: [sulfamethoxazole]Drug Allergy 39-88-8896JxbmsahAshtabula [facility] (18 sources)Trimethoprim; Translations: [trimethoprim]Drug Yydgybw61-57-7820 [facility] (1 source)CapsaicinDrug AllergyOhio[facility] (1 source)Sulfamethoxazole / TrimethoprimDrug AllergyOhiohealth [facility] (12 sources)Capsaicin; Translations: [CAPSAICIN]Drug Gxizeuu38-28-0790LmklrziwSalem [facility] (20 sources)CapsaicinDrug Flcijfh57-63-1811RlelvawyFTPO Healthcare (20 sources)levoFLOXacin; Translations: [LEVOFLOXACIN]Drug Zcnnjgd37-56-3686[facility] (2 sources)Sulfamethoxazole / Trimethoprim; Translations: [SULFAMETHOXAZOLE-TRIMETHOPRIM]Drug Rawlnnl32-90-2018YDMarymount Hospital [facility] (13 sources)CephalexinDrug Rvuvafk16-39-2719JwbohCOER Healthcare (7 sources)VoriconazoleAllergy to -54-9975X[facility] Medications Current Medications MedicationDrug Class(es)DatesSig (Normalized)Sig (Original)[id number] 200 actuat albuterol 0.09 mg/actuat metered dose inhaler (20 sources)beta2-Adrenergic AgonistStart: 08-23-2024 End: 08-13-4263ekqlgwfku (2.5 MG/3ML) 0.083% nebulizer solution Indications: Moderate persistent asthma without complication (HCC) Take 3 mL (2.5 mg) by nebulization 4 (four) times a day as needed for wheezing or shortness of breath 08/23/2024 08/23/2025 ActiveStart: 08-23-2024 End: 37-30-0999rync 2 puff(s) by inhalation every four hours for wheezing albuterol HFA 90 mcg/act inhaler Indications: Moderate persistent asthma without complication (HCC)Inhale 2 puffs every 4 (four) hours if needed for wheezing or shortness of breath 54 g 1 02/22/2025tiveStart: 17-67-7943Qfjoagcbv Sulfate (2.5 MG/3ML) 0.083% Inhalation Nebulization Solution Quantity: 375 Refills: 0 Ordered: 01-Jul-2022 DO Start : 01-Jul-2022 ActiveStart: 02-61-8636vfjl 2.5 mg by inhalation every six hoursAlbuterol Sulfate Active 2.5 MG INHALATION Q6H June 13, 2022 12:00amStart: 42-51-2542qzhp 1 puff(s) by inhalation every four hoursAlbuterol Sulfate Active 1 PUFF INHALATION Q4H June 13, 2022 12:00amStart: 02-76-8912mfxjnkpab 0.63 mg/3 mL nebulizer solution Inhale. 06/13/2020 ActiveStart: 86-49-8365zadx 1 [IU] by inhalation every four to six hours as neededAlbuterol Sulfate 0.63 MG/3ML Inhalation Nebulization Solution USE 1 UNIT DOSE IN NEBULIZER EVERY 4TO 6 HOURS NEEDED. Quantity: 0 Refills: 0 Ordered: 13-Jun-2020 DO Start : 13-Jun-2020 Activebaclofen 10 mg oral tablet (20 sources)gamma-Aminobutyric Acid-ergic AgonistStart: 02-07-2025 End: 67-62-4547thbywdyd (Lioresal) 10 MG tablet Indications: Spasm Take by mouth; 1/2 tablet in the morning, 1/2 tablet at lunchtime, and 1 tablet in the evening. 180 tablet 1 02/22/2025 ActiveStart: 03-25-2024 End: 10-89-9275tjahgxnz (Lioresal) 10 MG tablet Indications: Spasm Take by mouth; 1/2 tablet in the morning, 1/2 tablet at lunchtime, and 1 tablet in the evening. 180 tablet 1 08/23/2024 ActiveStart: 09-29-2023 End: 06-96-6319qnsw 10 mg by mouth twice dailyBaclofen Discontinued 10 MG PO Twice daily May 19, 2024 12:00am May 19, 2024 4:34pmtake 1 tablet by mouth three times dailybaclofen (Lioresal) 10 mg tablet Take 1 tablet (10 mg) by mouth 3 times a day. Activebreath-actuated 120 actuat beclomethasone dipropionate 0.08 mg/actuat metered dose inhaler (1 source)CorticosteroidStart: 09-09-2023 End: 70-67-8679twrjcnmksaehqx dipropionate (Qvar) 80 mcg/actuation inhaler Indications: CVID (common variable immunodeficiency) (CMS/HCC) Inhale 2 Inhalations 2 times a day. Rinse mouth out after inhalation. 10.6 g3 09/09/2023 09/08/2024 Activecalcitriol 0.25096 mg oral capsule (20 sources)Vitamin D3 AnalogStart: 36-80-9564eedb 2 capsules by mouth once daily, then take 1 capsule by mouth once dailycalcitriol (Rocaltrol) 0.25 mcg capsule Indications: Hyperparathyroidism (Multi) TAKE TWO CAPSULES BY MOUTH EVERY DAY OVER THE WEEKENDS, AND TAKE ONE CAPSULE DAILY ON THE OTHER DAYS, DIRECTED. 117capsule 3 03/10/2025 ActiveStart: 18-07-4403xvfqrryaap (Rocaltrol) 0.25 mcg capsule Indications: Hyperparathyroidism (Multi) TAKE 2 CAPSULES OVER THE WEEKENDS AND 1 CAPSULE THE OTHER DAYS 117 capsule 3 04/15/2024 ActiveStart: 17-21-2417drvk 0.5 ug by mouth twice dailyCalcitriol Active 0.5 MCG PO Twice daily June 13, 2022 12:00am 2xW; weekendsStart: 07-28-2019 End: 84-70-5228rxdu 0.25 ug by mouth once dailyCalcitriol Discontinued 0.25 MCG PO Daily June 13, 2022 12:00am May 19, 2024 3:58pm 5xweek-takes on weekdaysStart: 45-84-5144Lcowxeukzj 0.25 MCG Oral Capsule TAKE 2 CAPSULES OVER THE WEEKENDS AND 1 CAPSULE THE OTHER DAYS Quantity: 117 Refills: 3 Ordered: 07-Apr-2023 Christopher Watkins MD Start : 28-Jul-2019 ActiveStart: 84-98-9912jdbm 1 capsule by mouth every other dayCalcitriol 0.25 MCG Oral Capsule One cap every other day. Quantity: 15 Refills: 10 Christopher Watkins MD Start : 28-Jul-2019 Active cefuroxime 500 mg oral tablet (4 sources)Cephalosporin AntibacterialStart: 11-04-2024 End: 44-30-4981eyah 1 tablet by mouth in the morningcefuroxime (Ceftin) 500 MG tablet Indications: Acute non-recurrent maxillary sinusitis Take 1 tablet (500 mg) by mouth in the morning and 1 tablet (500 mg) before bedtime. Do all this for 14 days. 28tablet 11/04/2024 11/18/2024 ActiveStart: 10-31-2022 End: 57-14-9632ekrm 1 tablet by mouth twice dailycefuroxime (Ceftin) 500 mg tablet Take 1 tablet (500 mg) by mouth 2 times a day. 0 10/31/2022 09/09/2023 Discontinued (Therapy completed)cephalexin 500 mg oral capsule (1 source)Cephalosporin Antibacterial End: 22-65-1825dcct 1 capsule by mouth twice dailycephalexin (Keflex) [...] Pseudoephedrine (4 sources)alpha-Adrenergic Agonist, Histamine-1 Receptor AntagonistStart: 43-84-6732hebj 1 tablet by mouth once daily, then take 1 tablet by mouth every twelve hoursCetirizine-Pseudoephedrine (Zyrtec-D) 5-120 mg Tablet Extended Release 12 Hr Active 1 TAB PO Daily June 13, 2022 12:00amchlorhexidine gluconate 1.2 mg/ml mouthwash (13 sources)chlorhexidine (Peridex) 0.12 % solution Use 15 mL in the mouth or throat if needed for wound care Activedextran 70 1 mg/ml / glycerin 2 mg/ml / hypromellose 3 mg/ml ophthalmic solution (13 sources)Plasma Volume Leather Whitener, Non-Standardized Chemical AllergenStart: 52-99-9738wimutumsie tears, whcahwk-zkfvuyd-gvrabufv, 0.1-0.3-0.2 % ophthalmic solution Administer into affected eye(s) 4 times a day as needed. 02/27/2019 Fbddgx51 actuat fluticasone furoate 0.1 mg/actuat dry powder inhaler (16 sources)CorticosteroidStart: 44-15-5226zvmf 1 puff(s) by mouth once daily Arnuity Ellipta 100 mcg/actuation inhaler INHALE 1 PUFF BY MOUTH DAILY (rinse mouth after use) 0 04/09/2023 ActiveStart: 15-32-1849dqux 1 puff(s) by mouth once dailyArnuity Ellipta 100 MCG/ACT Inhalation Aerosol Powder Breath Activated INHALE 1 PUFF BY MOUTH DAILYQuantity: 30 Refills: 0 Ordered: 06-Nov-2022 DO Start : 09-Oct-2022 ActiveStart: 39-76-7846otqe 1 spray(s) nasal route once daily Fluticasone Propionate 50 MCG/ACT Nasal Suspension USE 1 SPRAY IN EACH NOSTRIL ONCE DAILY. Quantity: 1 Refills: 3 DO Start : 13-Mar-2018 Activefluticasone / salmeterol (20 sources)Corticosteroid, beta2-Adrenergic AgonistStart: 02-07-2025 End: 85-83-3676ntsb 1 puff(s) by mouth twice dailyfluticasone propion-salmeteroL (Wixela Inhub) 500-50 mcg/dose diskus inhaler Indications: Asthma, unspecified asthma severity, unspecified whether complicated, unspecified whether persistent ([facility]) Inhale 1 puff 2 times a day. Rinse mouth with water after use to reduce aftertaste and incidence of candidiasis. Do not swallow. 180 each 2 06/15/2025 12:19 PM EDT 02/07/2025 09/13/2025 ActiveStart: 02-07-2025 End: 13-62-9867zpov 1 puff(s) by mouth twice dailyfluticasone propion-salmeteroL (Wixela Inhub) 500-50 mcg/dose diskus inhaler Indications: Asthma, unspecified asthma severity, unspecified whether complicated, unspecified whether persistent (HHS-HCC) Inhale 1 puff 2 times a day. Rinse mouth with water after use to reduce aftertaste and incidence of candidiasis. Do not swallow. 180 each 2 02/07/2025 05/08/2025 ActiveStart: 88-45-6467gyku 1 puff(s) by mouth twice daily fluticasone propion-salmeteroL (Wixela Inhub) 500-50 mcg/dose diskus inhaler Indications: Asthma, unspecified asthma severity, unspecified whether complicated, unspecified whether persistent ([facility]HS-HCC) Inhale 1 puff 2 times a day. Rinse mouth with water after use to reduce aftertaste and incidence of candidiasis. Do not swallow. 180 each 2 05/31/2024 ActiveStart: 05-31-2024 End: 70-45-1348txcz 1 puff(s) by mouth twice dailyfluticasone propion-salmeteroL (Wixela Inhub) 500-50 mcg/dose diskus inhaler Indications: Asthma, unspecified asthma severity, unspecified whether complicated, unspecified whether persistent ([facility]HS-HCC) Inhale 1 puff 2 times a day. Rinse mouth with water after use to reduce aftertaste and incidence of candidiasis. Do not swallow. 180 each 2 05/31/2024 08/29/2024 ActiveStart: 12-26-2023 End: 55-23-5619pdgp 1 puff(s) by mouth twice dailyfluticasone propion-salmeteroL (Wixela Inhub) 500-50 mcg/dose diskus inhaler Indications: Asthma, unspecified asthma severity, unspecified whether complicated, unspecified whether persistent ([facility]HS-HCC) Inhale 1 puff 2 times a day. Rinse mouth with water after use to reduce aftertaste and incidence of candidiasis. Do not swallow. 60 each 11 12/26/2023 12/25/2024 ActiveStart: 09-15-2023 End: 11-47-2016lmyq 1 puff(s) by mouth twice dailyfluticasone propion-salmeteroL (Advair Diskus) 500-50 mcg/dose diskus inhaler Indications: Asthma, unspecified asthma severity, unspecified whether complicated, unspecified whether persistent Inhale 1 puff 2 times a day. Rinse mouth with water after use to reduce aftertaste and incidence of candidiasis. Do not swallow. 60 each 11 09/15/2023 12/05/2023 Discontinued (Med List Cleanup)take 1 puff(s) by inhalation once dailyFluticasone-Salmeterol (Wixela Inhub) 500-50 MCG/ACT aerosol powder Inhale 1 puff Daily Active End: 55-93-1685iwng 1 puff(s) by mouth twice dailyfluticasone propion-salmeteroL (Advair Diskus) 500-50 mcg/dose diskus inhaler Inhale 1 puff 2 timesa day. Rinse mouth with water after use to reduce aftertaste and incidence of candidiasis. Do not swallow. 0 12/05/2023 Discontinued (Med List Cleanup)30 actuat fluticasone furoate 0.2 mg/actuat / vilanterol 0.025 mg/actuat dry powder inhaler (1 source)Corticosteroid, beta2-Adrenergic AgonistStart: 12-17-2023 End: 67-59-8176vust 1 puff(s) by inhalation once dailyfluticasone furoate- vilanteroL (Breo Ellipta) 200-25 mcg/dose inhaler Indications: Asthma, unspecifi ed asthma severity, unspecified whether complicated, unspecified whether persistent ([facility]) Inhale 1 puff once daily. 3 each 12/17/2023 01/07/2024 Discontinued (Formulary change)fluticasone propion/salmeterol (WIXELA INHUB INHL) (1 source)fluticasone propion/salmeterol (WIXELA INHUB INHL) Inhale. 0 Active gabapentin 300 mg oral capsule (20 sources)Anti-epileptic AgentStart: 05-19-2024 End: 52-62-9612hicz 1 capsule by mouth in the morninggabapentin (Neurontin) 100 MG capsule Indications: Chronic pain syndrome Take 1 capsule (100 mg) bymouth in the morning and in the evening 180 capsule 1 02/22/2025 08/21/2025 ActiveStart: 89-96-0844vsgd 1 capsule by mouth twice dailygabapentin (Neurontin) 100 mg capsule Take 1 capsule (100 mg) by mouth 2 times a day. 01/04/2024 ActiveStart: 02-20-2023 End: 70-67-8685dnbb 1 capsule by mouth twice daily at bedtimegabapentin (Neurontin) 100 mg capsule TAKE 1 CAPSULE BY MOUTH TWICE DAILY in addition to the 300mg AT BEDTIME 0 02/25/2023 08/13/2023 Discontinued (Med List Cleanup) Start: 06-13-2020 End: 01-55-5221olqu 1-2 capsules by mouth at bedtime, then take 1-2 capsules by mouth in the eveninggabapentin (Neurontin) 300 MG capsule Indications: Chronic pain syndrome , Spasm Take 1-2 capsules (300-600 mg) by mouth at bedtime Take 1 to 2 capsules in the evening 180 capsule 1 02/22/2025 08/21/2025 ActiveStart: 55-85-8767Prenwbntvs 300 MG Oral Capsule Quantity: 0 Refills: 0 Ordered: 13-Jun-2020 DO Start : 13-Jun-2020 ActiveHomeopathic Products (Leg Cramp Relief) sublingual tablet (20 sources)Homeopathic Products (Leg Cramp Relief) sublingual tablet Place 1 tablet under the tongue if uovuxgBcneae296 ml immunoglobulin g, human 100 mg/ml injection (20 sources)Human Immunoglobulin GStart: 10-03-2023 End: 44-56-7777khtddw globulin, human, (Gammagard Liquid) infusion Indications: CVID (common variable immunodeficiency) Infuse 400 mL (40 g) into a venous catheter every 30 (thirty) days. 400 mL 11 10/03/2023 10/02/2024 ActiveImmune Globulin, Human, 40 GM/400ML solution Inject 400 mL as directed every 30 (thirty) days Activelosartan potassium 25 mg oral tablet (10 sources)Angiotensin 2 Receptor BlockerStart: 06-13-2022 End: 13-03-4893ejyb 25 mg by mouth once dailyLosartan Active 25 MG PO Daily June 13, 2022 12:00amMagnesium (18 sources) End: 07-28-4391ljrvhbwrq 200 mg tablet Take 1 tablet (200 mg) by mouth. 01/07/2024 Discontinued (Med List Cleanup)magnesium 200 mg tablet Take 1 tablet (200 mg) by mouth. 0 Active End: 51-30-9641evll 1 tablet by mouth once dailymagnesium 200 mg tablet Take 1 tablet (200 mg) by mouth once daily. 0 08/13/2023 Discontinued (Med List Cleanup)take 1 tablet by mouth once dailyMagnesium 200 MG Oral Tablet TAKE 1 TABLET DAILY DIRECTED. Quantity: 0 Refills: 0 Ordered: 08-Nov-2021 DO Active magnesium gluconate 250 mg oral tablet (20 sources)Start: 17-81-3607fwkq 250 mg by mouth twice dailyMagnesium Gluconate [...] capsule (20 sources)Proton Pump InhibitorStart: 02-09-2016 End: 38-64-4724juzcaowuhi (PriLOSEC) [address] capsule Take by mouth once daily. 02/09/2016 ActiveStart: 23-15-1309Tmkynbvrjk 20 MG Oral Capsule Delayed Release Quantity: 0 Refills: 0 Ordered: 09-Feb-2016 DO Start : 09-Feb-2016 Activetake 1 tablet by mouth before mealtimeomeprazole OTC (PriLOSEC OTC) 20 MG EC tablet Take 20 mg by mouth in the morning. Take before meals. Do not crush, chew, or split.. ActiveoxyCODONE hydrochloride 5 mg oral tablet (20 sources)Opioid AgonistStart: 11-12-2018 End: 58-41-1688zrxYCMZVC (Roxicodone) 5 mg immediate release tablet Take [...] mg extended release oral tablet (20 sources)Start: 55-96-9445njbm 99 mg by mouth once dailyPotassium Active 99 MG PO Daily June 13, 2022 12:00amPotassium 99 MG tablet 1 (one) time each day at the same time. Activepotassium citrate 99 mg oral tablet (13 sources)take 1 tablet by mouth once dailypotassium citrate 99 mg capsule Take 1 tablet by mouth once daily. Activesildenafil 20 mg oral tablet (17 sources)Phosphodiesterase 5 InhibitorStart: 11-05-2023 End: 01-50-5344nurmmiqhfz (Revatio) 20 MG tablet Indications: Erectile dysfunction due to diseases classified elsewhere Take 1 to 5 tablets as needed daily 90 tablet 1 11/05/2023 11/04/2024 Discontinued (Therapy completed) spironolactone 25 mg oral tablet (7 sources)Aldosterone AntagonistStart: 05-25-2025 End: 18-11-2241rfnt 1 tablet by mouth once dailyspironolactone (Aldactone) 25 MG tablet Indications: Venous insufficiency Take 1 tablet (25 mg) by mouth Daily 90 tablet 06/14/2025 09/12/2025 ActivetiZANidine 4 mg oral tablet (14 sources)Central alpha-2 Adrenergic AgonistStart: 05-19-2024 End: 97-84-8417xhoq 2 mg by mouth in the morningtiZANidine (Zanaflex) 4 MG tablet Take 2 mg by mouth in the morning and 2 mg before bedtime. 05/19/2024 08/23/2024 Discontinued (Therapy completed)Start: 05-19-2024 End: 08-93-1865ycFHBkigkf (Zanaflex) 4 mg capsule 2 mg once daily. 05/19/2024 08/16/2024 Discontinued (Med List Cleanup)Start: 04-10-8782txle 0.5-1 tablets by mouth twice daily as neededTizanidine Active 0 PO Twice daily 60 30 May 19, 2024 12:00am 1/2-1 tablet orally twice daily PRN;valsartan 160 mg oral tablet (20 sources)Angiotensin 2 Receptor BlockerStart: 10-19-2024 End: 19-77-5077maun 1 tablet by mouth once dailyvalsartan (Diovan) 160 MG tablet Take 160 mg by mouth Daily 10/19/2024 ActiveStart: 01-29-2023 End: 36-58-5955bqjw 1 tablet by mouth once dailyvalsartan (Diovan) 80 mg tablet Indications: Benign essential HTN TAKE 1 TABLET BY MOUTH DAILY 90 tablet 3 07/26/2024 10/19/2024 Discontinued (Therapy completed) Completed/Discontinued Medications MedicationDrug Class(es)DatesSig (Normalized)Sig (Original)acetaminophen 325 mg oral capsule (18 sources)Start: 01-16-2021 End: 45-33-6903uvwehuuisvihz (TylenoL) 325 mg capsule Take by mouth. 0 01/16/2021 09/09/2023 Discontinued (Med List Cleanup)Start: 75-37-1615Syqfwsd 325 MG Oral Capsule take two tablets 20 minutes prior to infusion Quantity: 10 Refills: 0 Ordered: 16-Jan-2021 Sandra Cole MD Start : 16-Jan-2021 Active Start: 90-87-3898Ebiagblyagqtb 325 MG Oral Tablet TAKE 2 TABLETS BY MOUTH 20 MIN PRIOR TO INFUSION Quantity: 10 Refills: 0 Ordered: 17-Jan-2021 DO Start : 16-Jan-2021 Completeacyclovir 400 mg oral tablet (7 sources)Herpesvirus Nucleoside Analog DNA Polymerase Inhibitor, Herpes Simplex Virus Nucleoside Analog DNA Polymerase Inhibitor, Herpes Zoster Virus Nucleoside Analog DNA Polymerase InhibitorStart: 93-86-8543nfzq 1 tablet by mouth twice dailyAcyclovir 400 MG Oral Tablet TAKE 1 TABLET TWICE DAILY. Quantity: 0 Refills: 0 Ordered: 35-Aiy-6763ZY Start : 17-Dec-2017 Active amLODIPine 5 mg oral tablet (12 sources)Dihydropyridine Calcium Channel BlockerStart: 03-12-2022 End: 06-29-7906kjqg 1 tablet by mouth once dailyamLODIPine (Norvasc) 5 mg tablet Take 1 tablet (5 mg) by mouth once daily. 0 03/12/2022 09/09/2023 Discontinued (Therapy completed)cefdinir 300 mg oral capsule (2 sources)Cephalosporin AntibacterialStart: 11-20-2022 End: 16-27-1867bzee 1 capsule by mouth twice dailycefdinir (Omnicef) 300 mg capsule Take 1 capsule (300 mg) by mouth 2 times a day. 0 11/20/2022 09/09/2023 Discontinued (Therapy completed)cholecalciferol 0.125 mg oral tablet (20 sources)Vitamin DStart: 12-03-2017 End: 84-18-3773ixke 1 tablet by mouth once dailyCholecalciferol (Vitamin D3) (Vitamin D3) 5,000 unit Tablet Discontinued 5000 UNIT PO Daily December 03, 2017 12:00am June 13, 2022 8:53amtake 1 capsule by mouth in the morning cholecalciferol (Vitamin D-3) 250 MCG (25179 UT) capsule Take 1 capsule by mouth in the morning. Activetake 2 tablets by mouth once dailycholecalciferol (Vitamin D3) 5,000 Units tablet Take 2 tablets (250 mcg) by mouth once daily. Active End: 63-55-7535bwqv 1 tablet by mouth once dailycholecalciferol (Vitamin D3) 50 MCG (2000 UT) tablet Take 1 tablet (50 mcg) by mouth once daily. 07/05/2024 Discontinued (Med List Cleanup)chondroitin sulfates 200 mg / glucosamine hydrochloride 250 mg oral tablet (5 sources)Start: 12-03-2017 End: 74-20-5048cskc 2 tablets by mouth once dailyGlucosamine-Chondroitin (Osteo Bi-Flex) 250-200 mg Tablet Discontinued 2 TAB PO Daily December 03, 2017 12:00am June 13, 2022 8:53amdiphenhydrAMINE hydrochloride 25 mg oral tablet (20 sources)Histamine-1 Receptor AntagonistStart: 01-16-2021 End: 56-59-9672olisephefvZYSGW (Benadryl Allergy) 25 mg tablet Take by mouth. 01/16/2021 07/05/2024 Discontinued (Med List Cleanup)Start: 16-95-0893Tzlfpsft Allergy 25 MG Oral Tablet take 20 minutes prior to infusion Quantity: 10 Refills: 0 Ordered: 16-Jan-2021 Sandra Cole MD Start : 16-Jan-2021 Active ergocalciferol 26685 unt oral capsule (5 sources)Provitamin D2 CompoundVitamin D (Ergocalciferol) 1.25 MG (38867 UT) Oral Capsule Refills: 0 DO ActiveVitamin D (Ergocalciferol) 65129 UNIT Oral Capsule Refills: 0 Activefluconazole 200 mg oral tablet (3 sources)Azole AntifungalStart: 10-03-2022 End: 89-00-9345wnhp 1 tablet by mouth once dailyfluconazole (Diflucan) 200 mg tablet Take 1 tablet (200 mg) by mouth once daily. 0 10/03/2022 09/09/2023 Discontinued (Therapy completed)Start: 36-00-0093tooo 1 tablet by mouth once dailyFluconazole 200 MG Oral Tablet take 1 tablet by mouth once daily for 10 days Quantity: 14 Refills: 0 Ordered: 20-Mar-2021 DO Start : 20-Mar-2021 CompleteHyaluronidase (12 sources)EndoglycosidaseStart: 04-23-2023 End: 54-47-5641FwPamn 5 gram /50 mL (10 %) solutionStart: 72-89-7694MuNvnz 5 gram /50 mL (10 %) solutionStart: 45-34-8978Xbc-Hyaluronidase,Recombinant (Hyqvia) 5 gram /50 mL (10 %) Solution Active 50 ML SUBCUT Q28D June 13, 2022 12:00amStart: 11-06-2021 End: 04-35-6718iheaoz globulin-hyaluronidase (HyQvia) 2.5 gram /25 mL (10 %) solution Inject under the skin. 0 11/06/2021 09/09/2023 Discontinued (Cost of medication)Start: 11-06-2021 End: 04-60-7704CsRwar 20 gram /200 mL (10 %) solution Inject under the skin. 0 11/06/2021 09/09/2023 Discontinued (Cost of medication)Start: 40-16-8006wpujkq globulin-hyaluronidase (HyQvia) 2.5 gram /25 mL (10 %) solution Inject under the skin. 0 11/06/2021 ActiveStart: 59-33-0066HvPsup 20 gram /200 mL (10 %) solution Inject under the skin. 0 11/06/2021 Active End: 52-15-7825tbtyku globulin-hyaluronidase (HyQvia) 2.5 gram /25 mL (10 %) solution Inject under the skin. 0 09/09/2023 Discontinued (Cost of medication) immune globulin-hyaluronidase (HyQvia) 2.5 gram /25 mL (10 %) solution Inject under the skin. 0 Activehydrocortisone 25 mg/ml topical cream (17 sources)CorticosteroidStart: 01-17-2021 End: 20-51-8280pbalexkvdcbthg 2.5 % cream Apply topically. Apply to affected areas 2-3 times daily 0 01/17/2021 09/09/2023 Discontinued (Cost of medication) Start: 46-46-5909Xkyfimrrkivbbu 2.5 % External Cream APPLY 2-3 TIMES DAILY TO AFFECTED AREA(S). Quantity: 1 Refills:0 Ordered: 17-Jan-2021 Sandra Cole MD Start : 17-Jan-2021 ActiveHyqvia 2.5 GM/25ML Subcutaneous Kit (13 sources)Start: 59-11-6887Zdcvlt 2.5 GM/25ML Subcutaneous Kit evry 28 days Quantity: 0 Refills: 0 Ordered: 08-Nov-2021 DO Start : 06-Nov-2021 ActiveStart: 02-43-8376Foehzh 2.5 GM/25ML Subcutaneous Kit Quantity: 0 Refills: 0 Ordered: 08-Nov-2021 DO Start : 06-Nov-2021 ActiveHyqvia 20 GM/200ML Subcutaneous Kit (6 sources)Start: 29-83-7480Bwsibs 20 GM/200ML Subcutaneous Kit Quantity: 0 Refills: 0 Ordered: 08-Nov-2021 DO Start : 06-Nov-2021 ActivelevoFLOXacin 750 mg oral tablet (2 sources)Quinolone AntimicrobialStart: 11-19-2022 End: 96-76-1030abaf 1 tablet by mouth once dailylevoFLOXacin (Levaquin) 750 mg tablet TAKE 1 TABLET BY MOUTH ONCE DAILY FOR 10 DAYS 0 11/19/2022 09/09/2023 Discontinued (Therapy completed)lidocaine 25 mg/ml / prilocaine 25 mg/ml topical cream (11 sources)Antiarrhythmic, Amide Local AnestheticStart: 49-03-4134Rfvbohors- Prilocaine 2.5-2.5 % External Cream APPLY TO AREA AND COVER WITH saran wrap 1 HOUR BEFOREAPPOINTMENT. Quantity: 1 Refills: 0 Ordered: 19-Aug-2022 Sandra Cole MD Start : 15-Aug-2022 ActiveStart: 02-11-4226Irvpbpsdp-Prilocaine 2.5- 2.5 % External Cream Quantity: 30 Refills: 0 Ordered: 12-Oct-2021 DO Start: 12-Oct-2021 Completeloratadine 10 mg oral tablet (5 sources)Start: 12-03-2017 End: 79-92-3815gvva 1 tablet by mouth once dailyLoratadine (Claritin) 10 mg Tablet Discontinued 10 MG PO Daily December 03, 2017 12:00am June 13, 2022 8:53ammethocarbamol 750 mg oral tablet (19 sources)Muscle RelaxantStart: 12-19-2021 End: 26-54-8647Gldzjjxyuwoto Discontinued 750 MG PO As Directed June 13, 2022 12:00am May 19, 2024 3:57pmondansetron 4 mg oral tablet (20 sources)Serotonin-3 Receptor AntagonistStart: 02-22-2025 End: 88-11-5778vzrf 1 tablet by mouth every eight hours as needed for nausea and vomiting and nausea and nauseaondansetron (Zofran) 4 MG tablet Indications: Nausea Take 1 tablet (4 mg) by mouth every 8 (eight) hours if needed for nausea or vomiting for up to 7 days 20 tablet 02/22/2025 03/01/2025 ExpiredStart: 06-13-2020 End: 61-55-1510bkisukluxgy (Zofran) 4 mg tablet Take by mouth. 0 06/13/2020 08/13/2023 Discontinued (Med List Cleanup)Start: 91-82-0118Mwcegi 4 MG Oral Tablet Quantity: 0 Refills: 0 Ordered: 13-Jun-2020 DO Start : 13-Jun-2020 Active Start: 15-19-5665ibpoesfcmeo (Zofran) 8 mg tablet Take by mouth every 8 hours if needed. 02/01/2019 Activepot bicarb/potassium cit/ca (POTASSIUM BICARBONATE ORAL) (2 sources) End: 66-47-1054enn bicarb/potassium cit/ca (POTASSIUM BICARBONATE ORAL) Take 99 mg by mouth. 0 09/09/2023 Discontinued (Therapy completed)pot bicarb/potassium cit/ca (POTASSIUM BICARBONATE ORAL) Take 99 mg by mouth. 0 ActivepredniSONE 50 mg oral tablet (2 sources)Start: 62-94-3570pqxiqeJYPZ 50 MG Oral Tablet take 30 minutes prior to infusion Quantity: 10 Refills: 0 Ordered: 16-Jan-2021 Sandra Cole MD Start : 16-Jan-2021 ActivetraMADol hydrochloride 50 mg oral tablet (5 sources)Opioid AgonistStart: 12-03-2017 End: 39-16-8700cjmc 50 mg by mouth once dailyTramadol Discontinued 50 MG PO Daily December 03, 2017 12:00am June 13, 2022 8:53amtraZODone hydrochloride 50 mg oral tablet (5 sources)Serotonin Reuptake InhibitorStart: 12-03-2017 End: 73-33-7432ssig 50 mg by mouth at bedtimeTrazodone Discontinued 50 MG PO Bedtime December 03, 2017 12:00am June 13, 2022 8:53amZinc (6 sources) End: 10-83-8436dhoj 0.5 tablet by mouth once dailyzinc 50 MG tablet Take 0.5 tablets by mouth 1 (one) time each day 05/25/2024 Discontinued (Therapy c ompleted)take 0.5 tablet by mouth once dailyzinc 50 MG tablet Take 0.5 tablets by mouth 1 (one) time each day ActiveZINC CITRATE (5 sources) End: 32-51-0680OIXU CITRATE ORAL Take by mouth. 07/05/2024 Discontinued (Med List Cleanup)ZINC CITRATE ORAL Take by mouth. ActiveZINC CITRATE ORAL Take by mouth. 0 Active Problems Active Problems Problem ClassificationProblemDateDocumented DateEpisodic/Chronic Administrative/social admission (2 sources)Advance directive discussed with patient; Translations: [Other specified counseling]90-06-0469EctarrrnVkbvlt (20 sources)Asthma; Translations: [Unspecified asthma, uncomplicated]Onset: 819026-84-5128BolixdiEtdawput (20 sources)Nuclear senile cataract; Translations: [Senile nuclear sclerosis] Onset: 910548-91-6215SbyokeiArypviy kidney disease (20 sources)Chronic kidney disease stage 3; Translations: [Chronic kidney disease, Stage III (moderate)]Onset: 942308-36-3125ZsdzqkxKhpvfsz kidney disease (3 sources)Chronic kidney disease; Translations: [CHRONIC KIDNEY DISEASE STAGE 3B]Onset: 32-71-1632Sccnchyrzkf and hemorrhagic disorders (20 sources)Platelet count below reference range; Translations: [Thrombocytopenia, unspecified]Onset: 965074-06-8151SrsxbuqRomhfmjzjnfq of device; implant or graft (20 sources)Graft versus host disease; Translations: [Isovp-polcsg-dqfq disease, unspecified]ChronicDeficiency and other anemia (1 source)Antineoplastic chemotherapy induced pancytopenia; Translations: [Antineoplastic chemotherapy induced pancytopenia]Onset: 99-46-0266Pvkpisl Disorders of lipid metabolism (20 sources)Mixed hyperlipidemia; Translations: [Mixed hyperlipidemia]Onset: 388525-59-1744DjexjdjIuhvczztlt disorders (20 sources)Gastroesophageal reflux disease; Translations: [Gastro-esophageal reflux disease without esophagitis]Onset: 044328-40-0242HmhtjnnTyptcmeiw hypertension (20 sources)Benign essential hypertension; Translations: [Benign essential hypertension]Onset: 968027-94-2949NfsolmwXmwutmdnxbrxb symptoms and ill- defined conditions (20 sources)H/O: kidney disease; Translations: [Urinary symptoms ]Onset: 43-70-9128EyddkyzqVvqyortn; including migraine (20 sources)Refractory migraine without aura; Translations: [Migraine without aura, intractable, with status migrainosus]Onset: hronic Headache; including migraine (5 sources)Headache; Translations: [Head ache]EpisodicImmunity disorders (20 sources)Hypogammaglobulinemia; Translations: [Hypogammaglobulinemia, unspecified]Onset: 57-62-4415RspactzPlntuga and fatigue (20 sources)Fatigue; Translations: [Chronic fatigue, unspecified]Onset: 655696-35-7216KvrcijfByvtmt and vomiting (2 sources)Nausea; Translations: [Nausea]44-21-7312FwyyhbvuMxk-Hodgkin`s lymphoma (20 sources)Diffuse non-Hodgkin's lymphoma, large cell (clinical); Translations: [Other malignant lymphomas, unspecified site, extranodal and solid organ sites] Onset: 67-97-6269OefulcwLpo-Hodgkin`s lymphoma (20 sources)History of B-cell lymphoma; Translations: [Personal history of other lymphatic and hematopoietic neoplasms]EpisodicOsteoarthritis (20 sources)Osteoarthritis; Translations: [Unspecified osteoarthritis, unspecified site]Onset: 508654-51-5023OgfdiqlNtyqu and ill-defined heart disease (20 sources)Systolic dysfunction; Translations: [Heart disease, unspecified] Onset: 778570-56-0791JtxysmxRhbgw circulatory disease (20 sources)H/O: hypertension; Translations: [Personal history of other diseases of circulatory system]EpisodicOther connective tissue disease (6 sources)Cramp; Translations: [Cramp of limb]EpisodicOther connective tissue disease (1 source)Cramp and spasm; Translations: [Cramp and spasm]Onset: 02-20-2023 EpisodicOther connective tissue disease (3 sources)Other muscle spasm; Translations: [Spasm of muscle]85-59-0955Httxxngq Other diseases of kidney and ureters (20 sources)Renal mass; Translations: [Unspecified disorder of kidney and ureter]Onset: 319878-80-6420DwikrryWzpzr diseases of kidney and ureters (20 sources)Hyperparathyroidism due to renal insufficiency; Translations: [Secondary hyperparathyroidism of renal origin]Onset: 480658-99-4790 ChronicOther diseases of kidney and ureters (2 sources)Secondary hyperparathyroidism of renal origin; Translations: [Secondary hyperparathyroidism of renal origin (Multi)]Onset: 71-46-7529Azymdlg Other diseases of kidney and ureters (5 sources)Renal mass; Translations: [Left renal mass]EpisodicOther diseases of veins and lymphatics (3 sources)Vascular insufficiency; Translations: [Venous insufficiency (chronic) (peripheral)]05-59-1179TlowpaciCkiyr endocrine disorders (20 sources)Secondary hyperparathyroidism; Translations: [Secondary hyperparathyroidism (of renal origin)]Onset: 851561-51-0452KzwlwsvAaxlf nervous system disorders (1 source)Polyneuropathy, unspecified; Translations: [Polyneuropathy, unspecified]Onset: 24-73-0541DqxeswjBijve nervous system disorders (2 sources)Chronic pain; Translations: [Other chronic pain]59-61-7527Prdlxcj Other nervous system disorders (3 sources)Other chronic pain; Translations: [Other chronic pain]05-19-2024 ChronicOther nervous system disorders (20 sources)Polyneuropathy due to drug; Translations: [Drug-induced polyneuropathy]Onset: 807833-40-9978MtvlqmoPezwc nervous system disorders (20 sources)Chronic pain syndrome; Translations: [Chronic pain syndrome]Onset: 093661-09-2146XdmcapiZwmhh nutritional; endocrine; and metabolic disorders (20 sources)Morbid obesity; Translations: [Morbid (severe) obesity due to excess calories]Onset: 112237-03-5195RdqsmdvOvlbf nutritional; endocrine; and metabolic disorders (20 sources)Body mass index 30+ - obesity; Translations: [Body mass index (BMI) 35.0-35.9, adult]Onset: 423618-57-9424VvaauhhLesyj screening for suspected conditions (not mental disorders or infectious disease) (10 sources)Other specified abnormal findings of blood chemistry; Translations: [Patient encounter status]Onset: 54-31-0492RwufkcerPwsla skin disorders (3 sources)Eruption; Translations: [Rash and other nonspecific skin eruption] EpisodicOther upper respiratory disease (20 sources)Allergic rhinitis; Translations: [Other allergic rhinitis]Onset: 050170-05-3225SmihxttMulth upper respiratory infections (8 sources)Chronic sphenoidal sinusitis; Translations: [Chronic sphenoidal sinusitis]ChronicOther upper respiratory infections (2 sources)Acute maxillary sinusitis; Translations: [Acute maxillary sinusitis, unspecified]40-45-9316YpiqrtivMtfwdcek codes; unclassified (5 sources)Procedure indicated; Translations: [Awaiting organ transplant status] ChronicResidual codes; unclassified (10 sources)Awaiting transplantation; Translations: [Awaiting organ transplant status]ChronicResidual codes; unclassified (20 sources)H/O: tissue/organ recipient; Translations: [Stem cells transplant status]Onset: 103570-91-6194YaermafTiywncee codes; unclassified (2 sources)Bilateral lower limb edema; Translations: [Localized edema]05-12-2025 EpisodicScreening and history of mental health and substance abuse codes (2 sources)Patient encounter status; Translations: [Encounter for screening examination for other mental health and behavioral disorders]00-95-6995Wuzytmum Secondary malignancies (20 sources)Secondary malignant neoplasm of kidney; Translations: [Secondary malignant neoplasm of kidney]Onset: 071590-68-1720MoprhabSyocsucno malignancies (20 sources)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; Translations: [Secondary malignant neoplasm of kidney]Onset: 02-05-2023 64-50-4078MjhvbfbXifjlcaap malignancies (20 sources)Secondary malignant neoplasm of back; Translations: [Secondary malignant neoplasm of other parts ofnervous system]Onset: ChronicSecondary malignancies (20 sources)Secondary malignant neoplasm of spleen; Translations: [Secondary malignant neoplasm of other digestive organs]Onset: hronic Spondylosis; intervertebral disc disorders; other back problems (5 sources)Degeneration of cervical intervertebral disc; Translations: [Other cervical disc degeneration, unspecified cervical region]39-23-8119Fbptxxm Systemic lupus erythematosus and connective tissue disorders (5 sources)Keratoconjunctivitis sicca; 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]ChronicUnclassified (3 sources)COUGH, UNSPECIFIED; Translations: [COUGH, UNSPECIFIED]Onset: 71-27-5699Fyqskjydfnhu (1 source)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; Translations: [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]Onset: 08-04-2023 Past or Other Problems Problem ClassificationProblemDateDocumented DateEpisodic/ChronicAcute and unspecified renal failure (20 sources)Injury of kidney; Translations: [Acute kidney failure, unspecified] Onset: 103090-07-0598BpcqhrarT Codes: Adverse effects of medical drugs (20 sources)Adverse effect of antineoplastic and immunosuppressive drugs, sequela; Translations: [Adverse reaction to drug]Onset: EpisodicLung disease due to external agents (20 sources)Drug-induced interstitial lung disorders, unspecified; Translations: [Drug-induced interstitial lung disorder]Onset: 975565-91-0357GxokgnqcRutd disorders (20 sources)Mood disordersOnset: 10-23-2023 Resolved: 593417-43-0187Bvbtjyroa of unspecified nature or uncertain behavior (20 sources)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; Translations: [Neoplasm of uncertain behavior of other and unspecified respiratory organs] Resolved: 60-92-8659MptbpezkIfdac circulatory disease (20 sources)Orthostatic hypotension; Translations: [Orthostatic hypotension] Onset: 189915-15-4242CsqlvpntQtmqs connective tissue disease (20 sources)Spasm; Translations: [Other muscle spasm]Onset: EpisodicOther diseases of kidney and ureters (1 source)Chronic renal insufficiency; Translations: [Disorder of kidney and ureter, unspecified]Onset: 467793-57-8643TntzmmmtBzfti diseases of veins and lymphatics (20 sources)Peripheral venous insufficiency; Translations: [Venous insufficiency (chronic) (peripheral)]Onset: 074071-17-4397IucycrqvAgjkq eye disorders (20 sources)Tear film insufficiency; Translations: [Tear film insufficiency, unspecified]Onset: 70-07-7447AteaqnlxTubay eye disorders (20 sources)Dry eyes; Translations: [Tear film insufficiency, unspecified]Onset: 36-07-8233MssgfcfhUiuji nutritional; endocrine; and metabolic disorders (20 sources)Obesity caused by energy imbalance; Translations: [Other obesity due to excess calories]Onset: 02-05-2023 Resolved: 043477-40-1448VksrhgjJacbzquy; pneumothorax; pulmonary collapse (20 sources)Thickening of pleura; Translations: [Pleural plaque without asbestos]Onset: 376274-39-1489PibvsrrnPqhmvttwamf; intervertebral disc disorders; other back problems (4 sources)Cervical radiculopathy; Translations: [Radiculopathy, cervical region]79-24-1413DpwilzuxVkmcelrfvnio (5 sources)Procedure indicated; Translations: [Stem cell transplant candidate] Unclassified (13 sources)Never smoked tobacco; Translations: [Never a smoker]Unclassified (1 source)COUGH, UNSPECIFIED; Translations: [COUGH, UNSPECIFIED]Onset: 59-11-2547Hjowyseysfwl (11 sources)Onset: 12-05-2023 Resolved: 426703-73-1716Aeijciorvgdj (1 source)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 Residual codes; unclassified (20 sources)DiseaseEpisodic Results Test NameValueInterpretationReference RangeFacilityALL BASIC METABOLIC PANELon 48-26-0198Ejhji gap [Moles/Vol]11.6 mmol/LNOMS HealthcareCalcium [Mass/Vol]9.6 mg/dL8.5 - 10.1 mg/dLNOMS HealthcareChloride [Moles/Vol]108 mmol/LHigh98 - 107 mmol/LNOMS HealthcareCO2 [Moles/Vol]29.6 mmol/L21.0 - 32.0 mmol/LNOMS Healthcare Creatinine [Mass/Vol]1.97 mg/dLHigh0.70 - 1.30 mg/dLNOMS HealthcareGFR/1.73 sq M.predicted CKD-EPI (S/P/Bld) [Vol rate/Area]42Low>=60 mL/min/1.73m 2NOMS HealthcareGlucose [Mass/Vol]111 mg/nRXdeb34 - 106 mg/dLNOFL Healthcare Interpretation and review of laboratory resultsAbnormalNOMS HealthcarePotassium [Moles/Vol]5.2 mmol/LHigh3.5 - 5.1 mmol/LNOMS HealthcareSodium [Moles/Vol]144 mmol/L136 - 145 mmol/LNOMS HealthcareTBH EGFR-NON AF [id number]>=60 mL/min/1.73m 2NOMS HealthcareUrea nitrogen [Mass/Vol]28.0 mg/dLHigh7.0 - 18.0 mg/dLNOMS HealthcareUrea nitrogen/Creatinine [Mass ratio]14.2 mg/mgNOMS HealthcareCLINISYNCNCURAHE[facility] [place] [facility] [place] HealthcareCCF CMP (CMP) (FOR REMOTE [facility] USE)on 60-03-5595Eevhzzc [Mass/Vol]3.4 g/dL3.4 - 5.0 g/dLNOMS HealthcareALBUMIN GLOBULIN RATIO0.9NOFL HealthcareALP [Catalytic activity/Vol]91 U/L46 - 116 U/L NOMS HealthcareALT [Catalytic activity/Vol]51 U/L16 - 63 U/LNOMS HealthcareAnion gap [Moles/Vol]11.5 mmol/LNOMS HealthcareAST [Catalytic activity/Vol]31 U/L15 - 37 U/LNOMS HealthcareBilirubin [Mass/Vol]0.5 mg/dL0.2 - 1.0 mg/dLNOMS Healthcare Calcium [Mass/Vol]9.6 mg/dL8.5 - 10.1 mg/dLNOMS HealthcareChloride [Moles/Vol] 106 mmol/L98 - 107 mmol/LNOMS HealthcareCO2 [Moles/Vol]29.3 mmol/L21.0 - 32.0 mmol/LNOMS HealthcareCreatinine [Mass/Vol]2.05 mg/dLHigh0.70 - 1.30 mg/dLNOMS HealthcareGFR/1.73 sq M.predicted CKD-EPI (S/P/Bld) [Vol rate/Area]40Low>=60 mL/min/1.73m 2NOMS HealthcareGlobulin (S) [Mass/Vol]3.7 g/dLNOMS Healthcare Glucose [Mass/Vol]115 mg/bPCwnd15 - 106 mg/dLNOFL HealthcareInterpretation and review of laboratory resultsAbnormalNOMS HealthcarePotassium [Moles/Vol]4.8 mmol/L3.5 - 5.1 mmol/LNOMS HealthcareProtein [Mass/Vol]7.1 g/dL6.4 - 8.2 g/dL NOMS HealthcareSodium [Moles/Vol]142 mmol/L136 - 145 mmol/LNOMS HealthcareTB EGFR-NON AF [id number]>=60 mL/min/1.73m 2NOMS HealthcareUrea nitrogen [Mass/Vol]34.0 mg/dLHigh7.0 - 18.0 mg/dLNOFL HealthcareUrea nitrogen/Creatinine [Mass ratio]16.6 mg/mgNOMS HealthcareCLINISYNMcLeod Health Cheraw BASIC METABOLIC PANELon 63-54-7037Guwit gap [Moles/Vol]12.4 mmol/LNOMS HealthcareCalcium [Mass/Vol]9.6 mg/dL8.5 - 10.1 mg/dLNOFL HealthcareChloride [Moles/Vol]106 mmol/L 98 - 107 mmol/LNOMS HealthcareCO2 [Moles/Vol]28.9 mmol/L21.0 - 32.0 mmol/LNOMS HealthcareCreatinine [Mass/Vol]1.8 mg/dLHigh0.70 - 1.30 mg/dLNOFreeman Health System GFR/1.73 sq M.predicted CKD-EPI (S/P/Bld) [Vol rate/Area]46Low>=60 mL/min/1.73m 2[facility] [place] [facility] [place] HealthcareGlucose [Mass/Vol]146 mg/mMTmfs14 - 106 mg/dLNOFreeman Health System Interpretation and review of laboratory resultsAbnormalNOFL HealthcarePotassium [Moles/Vol]4.3 mmol/L3.5 - 5.1 mmol/LNOMS HealthcareSodium [Moles/Vol]143 mmol/L 136 - 145 mmol/LNOMS [facility] HospitalTB EGFR-NON AF [id number]>=60 mL/min/1.73m 2 NOMS HealthcareUrea nitrogen [Mass/Vol]27 mg/dLHigh7.0 - 18.0 mg/dLNOFL HealthcareUrea nitrogen/Creatinine [Mass ratio]15 mg/mgNOFL HealthcareCLINISYNC [facility] HealthcareALL IMMUNOGLOBULIN Mio 51-27-3728MBV IMMUNOGLOBULIN G, QN766 mg/dL603 - 1613 mg/dLNOFL HealthcareComment on above:Performed at: [facility] [address], [place] [id number] Delivery Rn: Benjamín Vora PhD, Phone: [phone] [facility] [place] CBC WITH AUTO DIFFon 00-15-5173AKSNRTRKU ABSOLUTE SHRF7PAFE HealthcareBasophils/100 WBC (Bld)0.2 %0.2 - 2.0 %[facility] Eosinophils/100 WBC (Bld)5 %0.9 - 7.0 %[facility] CenterErythrocyte distribution width (RBC) [Ratio]15.5 %High11.0 - 15.0 %NOM HealthcareHematocrit (Bld) [Volume fraction]40.5 %Low42.0 - 54.0 %[facility] HealthcareHemoglobin (Bld) [Mass/Vol]13.1 g/dLLow14.0 - 18.0 g/dLParkland Health CenterIMMATURE GRANULOCYTES ABS AUTO0.13HighNOFL HealthcareImmature granulocytes/100 WBC (Bld)2.2 %High0.0 - 0.5 %[facility] HealthcareInterpretation and review of laboratory resultsAbnormalNOFreeman Health SystemLYMPHOCYTES ABSOLUTE AUTO1.7NOMS HealthcareLymphocytes/100 WBC (Bld) 28.8 %20.5 - 60.0 %[facility] HospitalH (RBC) [Entitic mass]27.3 pg25.9 - 34.0 pg [facility] CenterMCHC (RBC) [Mass/Vol]32.3 g/dL29.9 - 35.2 g/dLParkland Health CenterMCV (RBC) [Entitic vol]84.4 fL80.0 - 94.0 fLNOFreeman Health SystemMONOCYTES ABSOLUTE AUTO 0.4NOMS HealthcareMonocytes/100 WBC (Bld)7.2 %1.7 - 12.0 %[facility] NEUTROPHILS ABSOLUTE AUTO3.3NOMS HealthcareNeutrophils/100 WBC (Bld)56.6 %43.0 - 75.0 %[facility] CenterPlatelet mean volume (Bld) [Entitic vol]10 fL9.5 - 13.5 fL [facility] CenterTBH EO #0.3NOMS HealthcareTBH [id number] HealthcareTBH RBC4.8NOMS HealthcareTBH WBC5.8NOMS HealthcareCLINISYNCNOMS HealthcareCCF CMP (CMP) (FOR REMOTE C USE)on 74-29-4065Vbvwyth [Mass/Vol]3.5 g/dL3.4 - 5.0 g/dLNOMS HealthcareALBUMIN GLOBULIN RATIO1.1NOMS HealthcareALP [Catalytic activity/Vol]97 U/L46 [...] 2NOMS HealthcareGlobulin (S) [Mass/Vol]3.1 g/dLNOMS HealthcareGlucose [Mass/Vol]125 mg/nRXqus48 - 106 mg/dL N[facility] HealthcareInterpretation and review of laboratory resultsAbnormalNOMS HealthcarePotassium [Moles/Vol]4 mmol/L3.5 - 5.1 mmol/LNOMS HealthcareProtein [Mass/Vol]6.6 g/dL6.4 - 8.2 g/dLNOMS HealthcareSodium [Moles/Vol]143 mmol/L136 - 145 mmol/LNOMS HealthcareTBH EGFR-NON AF YNPJGQGQ44Hzg>=60 mL/min/1.73m 2NOMS HealthcareUrea nitrogen [Mass/Vol]30 mg/dLHigh7.0 - 18.0 mg/dLNOMS Healthcare Urea nitrogen/Creatinine [Mass ratio]16.1 mg/mgNOMS HealthcareCLINISYNGrand Strand Medical Center CMP (CMP) (FOR REMOTE [facility] USE)on 09-67-4996Byhqdau [Mass/Vol]3.4 g/dL3.4 - 5.0 g/dLNOFL HealthcareALBUMIN GLOBULIN RATIO1.1NOMS HealthcareALP [Catalytic activity/Vol]91 U/L46 - 116 U/LNOMS HealthcareALT [Catalytic activity/Vol]42 U/L16 - 63 U/LNOMS HealthcareAnion gap [Moles/Vol]12.9 mmol/L NOMS HealthcareAST [Catalytic activity/Vol]24 U/L15 - 37 U/LNOMS Healthcare Bilirubin [Mass/Vol]0.6 mg/dL0.2 - 1.0 mg/dLNOMS HealthcareCalcium [Mass/Vol]9 mg/dL8.5 - 10.1 mg/dLNOMS HealthcareChloride [Moles/Vol]103 mmol/L98 - 107 mmol/LNOMS HealthcareCO2 [Moles/Vol]29.1 mmol/L21.0 - 32.0 mmol/LNOMS Healthcare Creatinine [Mass/Vol]1.81 mg/dLHigh0.70 - 1.30 mg/dLNOFL HealthcareGFR/1.73 sq M.predicted CKD-EPI (S/P/Bld) [Vol rate/Area]46Low>=60 mL/min/1.73m 2NOMS HealthcareGlobulin (S) [Mass/Vol]3.1 g/dLNOFL HealthcareGlucose [Mass/Vol]153 mg/zPRnkk04 - 106 mg/dLNOFL HealthcareInterpretation and review of laboratory resultsAbnormalNOMS HealthcarePotassium [Moles/Vol]4 mmol/L3.5 - 5.1 mmol/LNOMS HealthcareProtein [Mass/Vol]6.5 g/dL6.4 - 8.2 g/dLNOFL HealthcareSodium [Moles/Vol]141 mmol/L136 - 145 mmol/LNOMS HealthcareTBH EGFR-NON AF [id number] Low>=60 mL/min/1.73m 2NOMS HealthcareUrea nitrogen [Mass/Vol]26 mg/dLHigh7.0 - 18.0 mg/dLNOFL HealthcareUrea nitrogen/Creatinine [Mass ratio]14.4 mg/mgNOMS HealthcareCLINISYNCNCURAHEALTH [facility] [place] [facility] [place] HealthcareALL CBC WITH AUTO DIFFon 55-72-5673Qfsxhurfbhs distribution width (RBC) [Ratio]15 %11.0 - 15.0 %[facility] HealthcareHematocrit (Bld) [Volume fraction]42.5 %42.0 - 54.0 %[facility] CenterHemoglobin (Bld) [Mass/Vol] 13.6 g/dLLow14.0 - 18.0 g/dLENCOMPASS HEALTH HealthcareInterpretation and review of laboratory resultsAbnormalNOMineral Area Regional Medical CenterH (RBC) [Entitic mass]26.9 pg25.9 - 34.0 pgSalem Memorial District HospitalHC (RBC) [Mass/Vol]32 g/dL29.9 - 35.2 g/dLSalem Memorial District HospitalV (RBC) [Entitic vol]84 fL80.0 - 94.0 fLParkland Health CenterPlatelet mean volume (Bld) [Entitic vol]10.2 fL9.5 - 13.5 fLParkland Health CenterTB IUF877RysKISBFreeman Orthopaedics & Sports Medicine RBC5.06NOFreeman Orthopaedics & Sports Medicine WBC4.9[facility] CenterCLINISYNCNOMS [facility] IMMUNOGLOBULIN Mio 14-72-5207MVD IMMUNOGLOBULIN G, QN741 mg/dL603 - 1613 mg/dLENCOMPASS HEALTH HealthcareComment on above:Performed at: - LabDouglas Ville [id number] Delivery Rn: Benjamín Vora PhD, Phone: [phone] CLIN[facility]YCentennial [facility] [place] CBC WITH AUTO DIFFon 17-06-6615MYINPKFCN ABSOLUTE AUTO0.0NOMS [facility] HospitalBasophils/100 WBC (Bld)0.2 %0.2 - 2.0 %[facility] Eosinophils/100 WBC (Bld)4.6 %0.9 - 7.0 %[facility] Health CenterErythrocyte distribution width (RBC) [Ratio]15.4 %High11.0 - 15.0 %[facility] Health CenterHematocrit (Bld) [Volume fraction]43.8 %42.0 - 54.0 %[facility] Health CenterHemoglobin (Bld) [Mass/Vol] 13.8 g/dLLow14.0 - 18.0 g/dLParkland Health CenterIMMATURE GRANULOCYTES ABS AUTO0.13 HighNOFreeman Health SystemImmature granulocytes/100 WBC (Bld)2.9 %High0.0 - 0.5 %[facility] HealthcareInterpretation and review of laboratory resultsAbcox bransonalNOFL Healthcare LYMPHOCYTES ABSOLUTE AUTO1.2NOMS HealthcareLymphocytes/100 WBC (Bld)27.0 %20.5 - 60.0 %[facility] HospitalH (RBC) [Entitic mass]26.6 pg25.9 - 34.0 pgNOMineral Area Regional Medical CenterHC (RBC) [Mass/Vol]31.5 g/dL29.9 - 35.2 g/dLSalem Memorial District HospitalV (RBC) [Entitic vol]84.6 fL80.0 - 94.0 fLENCOMPASS HEALTH HealthcareMONOCYTES ABSOLUTE AUTO0.4NOFL HealthcareMonocytes/100 WBC (Bld)7.7 %1.7 - 12.0 %[facility] HealthcareNEUTROPHILS ABSOLUTE AUTO2.6NOFL HealthcareNeutrophils/100 WBC (Bld)57.6 %43.0 - 75.0 %[facility] HealthcarePlatelet mean volume (Bld) [Entitic vol]11.2 fL9.5 - 13.5 fLParkland Health CenterTBH EO #0.2NOMS HealthcareTBH CKW348GopRTDQ HealthcareTB RBC5.18NOFreeman Health SystemTB WBC4.6NOFL HealthcareCLINISYNCNOMS HealthcareISTAT XRay CREon 52-55-3165LCJCM GFR36.811NoECU Health Medical Center Physician GroupComment on above: Result Comment: PERFORMED BY: [place] [address] PATHOLOGIST CO CHAIRMAN BRIAN BALL M.D.Performed By: #### ISCRE #### [facility] [address] [place] [address] cervical spine wo/w conon 36-04-7539IV cervical spine wo/w [facility] [place] [address] MRI Report Signed Patient: Katerina Danielle MR#: [id number] 0 : 1960 Acct:[id number] Age/Sex: 63 / M ADM Date: 04/15/24 Loc: MR Room: Type: [facility] Attending Dr: Nadeem Morrison DO Copies to: [...] Sorin Shah M.D.04/15/2024 10:18 PM Dictation Location: RADIO-PC-13 Transcribed By: COURT 04/15/242217 Dictated By: Sorin Shah II, MD 04/15/242210 Signed By: 04/15/242217[facility] head/brain wo/w conon 20-36-4149MG head/brain wo/w [facility] [place] [address] [place] [address] MRI Report Signed Patient: Katerina Danielle MR#: [id number] 0 : 1960 Acct:[id number] Age/Sex: 63 / M ADM Date: 04/15/24 Loc: MR Room: Type: [facility] Attending Dr: Nadeem Morrison DO Copies to: [...] Sorin Shah M.D.04/15/2024 10:23 PM Dictation Location: [facility]--13 Transcribed By: COURT 04/15/242222 Dictated By: Sorin Shah II, MD 04/15/242217 Signed By: 04/15/242222[facility] Physician GroupNo Panel InformationOrdered By: Nadeem Morrison on 30-80-3185Xikopxq Estimated GFR (eGFR)36.811[facility] HospitalWhole blood creatinine measurementOrdered By: Nadeem Morrison on 91-25-3720Godfvdixva [Mass/Vol]2.0 mg/dLHigh0.6-1.3FOhioHealth O'Bleness HospitalComment on above:ER/ESD physician is notified/shown all ISTAT results.Critical values may be confirmed by laboratorytesting ifdeemed necessary by ER attending doctor.Result Comment: ER/ESD physician is notified/shown all ISTAT results. Critical values may be confirmed by laboratory testing if deemed necessary by ER attending doctor.Performed By: #### ISCRE #### [place] [address] USAOffice Visit (Onco-Nephrology - Established)on 05-29-2023 Follow-up visitDiagnoses/Problems Benign essential HTN (401.1) (I10) CKD (chronic kidney disease), stage III (585.3) (N18.30) Hyperparathyroidism, secondary (588.81) (N25.81) Orders Benign essential HTN, CKD (chronic kidney disease), stage III, Hyperparathyroidism, secondary Basic Metabolic Panel; Status:Active; Requested for:46Ujh8656; Parathormone Intact, Serum; Status:Active; Requested for:82Hyn8428; Provider Impressions 1- CKD III: His Cr [...] Note - Heme Onc-appointment question - 04/29/23 [facility] 26-50-7535Vlomu Note - Heme Onc-appointment question - 04/29/23 apptPhone Call Information: Patient Demographics: Name: KATERINA DANIELLE Date: 1960 Address: [address] [place] [address] Date and Time: 28-Apr-2023 09:18 Caller Information: call from Call From: patient Primary Phone Number: [phone] Reason for Call: Reason for Callappointment question, [...] questions or concerns, Tea Oro 04/28/2023 09:30 Lamoda Tea 04/28/2023 09:34 Outpatient Medication Profile: * Patient [...] Updated: 28-Apr-2023 09:34 by Tea Oro (N MGR)[facility] HospitalPhone Note - Heme Onc-test resultson 86-73-3474Pjzyk Note - Heme Onc-test resultsPhone Call Information: Patient Demographics: Name: KATERINA DANIELLE Date: 1960 Address: [address] [place] [address] Date and Time: 15-Apr-2023 14:56 Caller Information: call from Call From: patient Primary Phone Number: [phone] Reason for Call: Reason for Calltest results Message: Message: Calling to see if Dr. Sears had time to see results from labs on Friday His PCP really didn't find anything wrong and wants to order a CT. Patient would like to know Dr. Sears's thoughts first before continuing with this. Should have come from [place]. Team Communication: Team Communications: I spoke Katerina [...] will continue with the scan and US ChristophermedinaZofia 04/15/2023 15:30 Outpatient Medication Profile: * Patient [...] Last Updated: 15-Apr-2023 15:30 by Zofia Smith (KLEVER)[facility] HospitalPhone Note - Heme Onc-pain - Pain/tenderness in abdomenon 95-65-5422Zluvc Note - Heme Onc-pain - Pain/tenderness in abdomenPhone Call Information: Patient Demographics: Name: KATERINA DANIELLE Date: 1960 Address: [address] [place] [address] Date and Time: 08-Apr-2023 09:26 Caller Information: call from Call From: patient Primary Phone Number: [phone] Reason for Call: Reason for Callpain, Pain/tenderness [...] once a day, M-F 2x a day [facility] 10%-160 units/mL subcutaneous solution: every 28 days [...] Last Updated: 08-Apr-2023 10:46 by Nikki Aguilera (RN)[facility] HospitalInitial Visit (Pain Medicine)on 28-35-7253Lpzoseo Visit (Pain Medicine) Diagnoses/Problems Cramps, muscle, general (729.82) (R25.2) Orders Stop: Gabapentin 100 MG Oral Capsule Neurology - Neuromuscular Referral Evaluation and Treatment Evaluate AND Treat Status: Hold For - Scheduling Requested for: 68Qdx7578 Start: Gabapentin 100 MG Oral Capsule; TAKE [...] and evaluated by multiple physicians including his freelance translator, his oncologist. He has tried multiple different [...] pain. ENT: no ea (more content not included)...[facility] TouchworksClinic Note - Heme Onc Schedulingon 95-92-7823Jpbkwj Note - Heme Onc SchedulingRetrieve Patient Instructions: Patient Instructions: Patient Instructions: RetrievePatient Instructions Instructions patient is scheduled w/ Pain Mngmnt as requested. Earliest available 02/19. End of Visit Documentation: Clinic Location/Phone Number: Clinic Location/Phone Number: [facility] End Of Visit MU Report Item: Visit Summary given or mailed to patientyes mailed Electronic Signatures: Nicole Jeong (SEC) (Signed 31-Jan-2023 16:14) Authored: Retrieve Patient Instructions, End of Visit Documentation Last Updated: 31-Jan-2023 16:14 by Nicole Jeong (SEC)[facility] HospitalPhone Note - Heme Onc-appointment question - Referral to paion 01-31-2023 Phone Note - Heme Onc-appointment question - Referral to paiPhone Call Information: Patient Demographics: Name: KATERINA DANIELLE Date: 1960 Address: [address] [place] [address] Date and Time: 31-Jan-2023 12:13 Caller Information: call from Call From: patient Primary Phone Number: [phone] Reason for Call: Reason for Callappointment question, [...] Updated: 31-Jan-2023 12:22 by Tea Oro (N MGR)[facility] HospitalOffice Visit (Onco-Nephrology - Established)on 54-07-8459Ftbspf-up visitDiagnoses/Problems Benign essential HTN (401.1) (I10) CKD [...] transplant candidate Basic Metabolic Panel; Status:Active; Requested for:44Pct3246; Parathormone Intact, Serum; Status:Active; Requested for:42Jkx7995; Phosphorus, Serum; Status:Active; Requested for:33Azh8891; Unlinked Stop: Losartan Potassium 25 MG Oral [...] included)...NormalUH TouchworksPhone Note - Heme Onc-order entryon 48-49-3259Evxrk Note - Heme Onc-order entryPhone Call Information: Patient Demographics: Name: KATERINA DANIELLE Date: 1960 Address: [address] [place] [address] Primary Phone Number: [phone] Reason for Call: Reason for Callorder entry [...] N/A Electronic Signatures: Zofia Smith (KLEVER) (Signed 29-Jan-2023 14:13) Authored: Phone Call Information, Outpatient Medication Profile, Orders, Allergies, Results Last Updated: 29-Jan-2023 14:13 by Zofia Smith (KLEVER)[facility] HospitalTobacco Screening.on 76-33-1635Wntl risk assessmentb) One or more falls in the last yearMP-[facility] 3 DO Work Phone: Tobacco use status CPHSb) NoMP-[facility] DO Work Phone: Clinic Note - Heme Onc Schedulingon 46-88-3674Yieyue Note - Heme Onc SchedulingRetrieve Patient Instructions: Patient Instructions: Patient Instructions: RetrievePatient Instructions End of Visit Documentation: Clinic Location/Phone Number: Clinic Location/Phone Number: [facility] End Of Visit MU Report Item: Visit Summary given or mailed to patientyes mailed to patient Electronic Signatures: Nicole Jeong (SEC) (Signed 24-Jan-2023 14:06) Authored: Retrieve Patient Instructions, End of Visit Documentation Last Updated: 24-Jan-2023 14:06 by Nicole Jeong (SOURAV)[facility] Note - Heme Onc-Follow Up Visiton 39-60-7412Rdhnkw Note - Heme Onc-Follow Up VisitPatient Visit [...] to Dr. Rodriguez in oncology at [facility] for evaluation. 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 Bone marrow biopsy was done which was negative for involvement with lymphoma . He also underwent an LP with low yield. Because of his meningeal enhancement and location close to MD UROLOGIST, he was treated with hyperCVAD-MA. He received [...] was compared to this patient's previous biopsy ([id number]). The previous biopsy demonstrated areas of necrosis [...] TP53 mutations. The patient was enrolled on [id number], Venetoclax+RICE. Cycle 1 started 10/29/17. Had tumor [...] pneumonitis. The patient was recently readmitted to [facility] (06/16-06/18/18) for fever and PNA. 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 He completed by mouth Levaquin. The patient was admitted to [facility] (08/18-08/21/18) with a new PE. He was [...] CAR T Cell infusion 01/04/19 with tisagenlecleucel ([employer] [place]) with preparative regimen of fludarabine and cytoxan. History of Present Illness: ID Statement: KATERINA DANIELLE is a 62 year old Male (more content not included)...NormalUH [facility] Rehabilitation HospitalClinic Note - Intakeon 17-02-2198Mjtbaq Note - IntakePatient Visit Information: Visit TypeFollow [...] falls riskimplement environmental risk factors interventions Spiritual/Procedural: Spiritual/cultural/restorationism practices important for us to knowno Alcohol, [...] Last Updated: 22-Jan-2023 13:02 by Lindsay Yadav (PCNA)[facility] HospitalCOMPREHENSIVE PANELon 02-39-2621VXLEAUDCanubrrsGwatwlGTRiver's Edge HospitalComment on above:Order Comment: TEST COMPREHENSIVE PANEL WAS CANCELLED, 01/21/2023 08:08 NO SPECIMEN RECEIVED IN LAB.Performed By: #### CMP #### [address] [place] [address]IVLDHRYU PHOSPHATASECancelRiver's Edge Hospital Comment on above:Order Comment: TEST COMPREHENSIVE PANEL WAS CANCELLED, 01/21/2023 08:08 NO SPECIMEN RECEIVED IN LAB.Performed By: #### CMP #### [address] [place] [address]XQWRjmolukyVercerUBNew Prague HospitalComment on above: Order Comment: TEST COMPREHENSIVE PANEL WAS CANCELLED, 01/21/2023 08:08 NO SPECIMEN RECEIVED IN LAB.Result Comment: Patients treated with Sulfasalazine may generate falsely decreased results for ALT.Performed By: #### CMP #### [address] [place] [address]GBUHW GAPCancelRiver's Edge HospitalComment on above:Order Comment: TEST COMPREHENSIVE PANEL WAS CANCELLED, 01/21/2023 08:08 NO SPECIMEN RECEIVED IN LAB.Performed By: #### CMP #### [address] [place], [place] [address]OYNHwcdpxguNdxijgPDSt. Mary's Medical CenterComment on above: Order Comment: TEST COMPREHENSIVE PANEL WAS CANCELLED, 01/21/2023 08:08 NO SPECIMEN RECEIVED IN LAB.Performed By: #### CMP #### [address] [place], [place] [address]CPLUEQBEKFSGictqhfwFdmghrJASt. Mary's Medical CenterComment on above:Order Comment: TEST COMPREHENSIVE PANEL WAS CANCELLED, 01/21/2023 08:08 NO SPECIMEN RECEIVED IN LAB.Performed By: #### CMP #### [address] [place], [place] [address]PNYPTJYCY,TOTALCanSt. Mary's Medical Center Comment on above:Order Comment: TEST COMPREHENSIVE PANEL WAS CANCELLED, 01/21/2023 08:08 NO SPECIMEN RECEIVED IN LAB.Performed By: #### CMP #### [address] [place], [place] [address]TGQYJKXKktfygppPtgqtzEXRiver's Edge HospitalComment on above:Order Comment: TEST COMPREHENSIVE PANEL WAS CANCELLED, 01/21/2023 08:08 NO SPECIMEN RECEIVED IN LAB.Performed By: #### CMP #### [address] [place], [place] [address]JYVTKXSPVxaltykaKlieiqYMRiver's Edge HospitalComment on above:Order Comment: TEST COMPREHENSIVE PANEL WAS CANCELLED, 01/21/2023 08:08 NO SPECIMEN RECEIVED IN LAB.Performed By: #### CMP #### [address] [place], [place] [address]ITDETYBYUROkxrabqpXvnzvsOISt. Mary's Medical CenterComment on above:Order Comment: TEST COMPREHENSIVE PANEL WAS CANCELLED, 01/21/2023 08:08 NO SPECIMEN RECEIVED IN LAB.Performed By: #### CMP #### [address] [place] [address]oGLD FEMALECancelRiver's Edge HospitalComment on above:Order Comment: TEST COMPREHENSIVE PANEL WAS CANCELLED, 01/21/2023 08:08 NO SPECIMEN RECEIVED IN LAB.Result Comment: CALCULATIONS OF ESTIMATED GFR ARE PERFORMED USING THE 2020 CKD-EPI STUDY REFIT EQUATION WITHOUT THE RACE VARIABLE FOR THE IDMS-TRACEABLE CREATININE METHODS. https://jasn.asnjournals.org/content/earlyASN.6995610531Fnhjrcpuo By: #### CMP #### [address] [place] [address]xRPY MALECancelRiver's Edge HospitalComment on above:Order Comment: TEST COMPREHENSIVE PANEL WAS CANCELLED, 01/21/2023 08:08 NO SPECIMEN RECEIVED IN LAB.Result Comment: CALCULATIONS OF ESTIMATED GFR ARE PERFORMED USING THE 2020 CKD-EPI STUDY REFIT EQUATION WITHOUT THE RACE VARIABLE FOR THE IDMS-TRACEABLE CREATININE METHODS. https://jasn.asnjournals.org/content/earlyASN.1666457804Xrmfizbss By: #### CMP #### [address] [place] [address]SSKAHSSMkpdvgoxOmcoevBNSt. Mary's Medical CenterComment on above:Order Comment: TEST COMPREHENSIVE PANEL WAS CANCELLED, 01/21/2023 08:08 NO SPECIMEN RECEIVED IN LAB.Performed By: #### CMP #### [address] [place] [address]OKPQRJRCVMwzefgthMatmhfXYSt. Mary's Medical CenterComment on above:Order Comment: TEST COMPREHENSIVE PANEL WAS CANCELLED, 01/21/2023 08:08 NO SPECIMEN RECEIVED IN LAB.Performed By: #### CMP #### [address] [place] [address]WXSDCGZywzjizjNbemtlELSt. Mary's Medical CenterComment on above:Order Comment: TEST COMPREHENSIVE PANEL WAS CANCELLED, 01/21/2023 08:08 NO SPECIMEN RECEIVED IN LAB.Performed By: #### CMP #### [address] [place], [place] [address]IWHFX PROTEINCancelRiver's Edge HospitalComment on above:Order Comment: TEST COMPREHENSIVE PANEL WAS CANCELLED, 01/21/2023 08:08 NO SPECIMEN RECEIVED IN LAB.Performed By: #### CMP #### [address] [place] [address]PAFJ NITROGENCancelRiver's Edge HospitalComment on above:Order Comment: TEST COMPREHENSIVE PANEL WAS CANCELLED, 01/21/2023 08:08 NO SPECIMEN RECEIVED IN LAB.Performed By: #### CMP #### [address] [place] [address]CEWmk 47-42-8180DRLWohliniuTdgesbTRNew Prague Hospital Comment on above:Order Comment: TEST LDH WAS CANCELLED, 01/21/2023 08:08 NO SPECIMEN RECEIVED IN LAB.Performed By: #### LDH ####[facility] [place], [place] [address]RWHJABSMYsq 58-82-0486LDKCHSWQEZkemocyrCpdnjb [facility] Specialized HospitalComment on above:Order Comment: TEST MAGNESIUM WAS CANCELLED, 01/21/2023 08:08 NO SPECIMEN RECEIVED IN LAB.Performed By: #### MG ####[address] [place], [place] [address]Jqlfq Note - Heme Onc-Insurance Medical Hxon 28-03-3236Pkrpm Note - Heme Onc-Insurance Medical HxPhone Call Information: Patient Demographics: Name: KATERINA DANIELLE Date: 1960 Address: [address] [place] [address] Date and Time: 14-Jan-2023 10:30 Caller Information: call from Call From: patient Primary Phone Number: [phone] Reason for Call: Reason for CallInsurance Medical Hx Message: Message: Insurance company re-evaluating him ([facility]). Would like a copy of medical history [...] Updated: 14-Jan-2023 14:19 by Ashley Dugan (UNIT SECT)[facility] Prague HospitalIMMUNOGLOBULIN IGG QUANTITATIVEon 01-03-2023 Immunoglobulin G, Qn, Cxosj851 mg/dEBuanec161-9036JkfOhiohealth Dublin Methodist HospitalComment on above:Performed By: #### MG, LDH, CMP #### [facility] [address] [place], [place] [address] Dr. 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 All medical record entries made by the Scribe were at my direction and personally dictated by me. Ihave reviewed the chart and agree that the [...] signed for PCP and Nohelia Machado DO, Asset Analyst in [facility]. If you develop fever, loss [...] that point, PCP referred patient to a Asset Analyst at [facility]. He saw Nohelia Machado DO, Asset Analyst at [facility], did a breathing test and ordered a [...] Breath ActivatedINHALE 1 PUFF (more content not included)...NormalCorey HospitalworksHEREDITARY HEMOCHROMATOSIS, DNA ANALYSISon 69-22-7390Crirgbmstz HemochromatosisComment NormalOhiohealth Dublin Methodist HospitalComment on above:Result Comment: Results: c.845G>A (p.Sdn729Hli) - Not Detected c.187C>G (p.Igu09Bba) - Detected, heterozygous c.193A>T (p.Ypv66Mmf) - Not Detected Not associated with increased [...] for patients who are homozygous for c.845G>A (p.Emf010Dlx) and have yet to experience clinical symptoms. . Comments: The most common HFE variants associated with hereditary hemochromatosis are c.845G>A (p.Dtz595Ion), c.187C>G (p.Wxm53Hly), c.193A>T (p.Ojm94Rdg). While patients homozygous for c.845G>A (p.Jwl641Djz) are the most likely to present clinical symptoms, less than 10% develop clinically significant iron overload with tissue and organ damage. . Genetic counseling is recommended to discuss the potential clinical implications of positive results, as well as recommendations for testing family members. Genetic Coordinators are available for health care providers to discuss results at [phone] ([phone]). . Test Details: Three variants analyzed: c.845G>A (p.Qza680Bzl), commonly referred to as C282Y c.187C>G (p.Fnt42Wco), commonly referred to as H63D c.193A>T (p.Nxm22Lzb), commonly referred to as S65C . Methods/Limitations: [...] developed and its performance characteristics determined by [employer]. It has not been cleared or approved by the Food and Drug Administration. . References: Jared BR, Keith PC, Shelby KV, Rishabh LW, Heriberto ; [employer] [employer] for the [employer] Liver Diseases. Diagnosis and management of hemochromatosis: 2011 practice guideline by the [place] [employer] the [employer] Liver Diseases. Hepatology. 2010;54(1):328-43. doi: 10.1002/hep.77230. PMID: 47127152; PMCID: LML3996267. Consuelo G, Lisa P, Janeth CODY, Marcel H, Nick O, Jeffrey S, Ryder I, Frederick M, Candace Hale. [facility] best practice guidelines for the molecular genetic diagnosis of hereditary hemochromatosis (HH). Eur J Hum Winter. 2016 Nov;24(4):479-95. doi: 10.1038/ejhg.2015.128. Epub 2014Mar 08. PMID: 36366707; PMCID: QHW3928557. . Leslee Cadena, PhD, [facility] Dioni Trinidad, PhD Sunday Sofia, PhD, FAC Angelito Beard, PhD, [facility] Tom Wills, PhD, [facility] Helio Henry, PhD, [facility] Katie Collazo, PhD, [facility] Yun Peterson, PhD, FACMGPerformed By: #### HHDNA #### [facility] [address] [place] [address] Dr. Ladan McdonaldFERRITINon 45-61-9434Zetbociu [Mass/Vol]1497.0 ng/mLCritically high26.0-388.0Ohio[facility] HospitalComment on above:Performed By: #### MG, LDH, CMP #### [facility] [address] [place] [address] Dr. Ladan Alcantara AND TIBCon 10-11-2022% MIHTTSBJUQ60.6 %NormalThe OhiohealthComment on above:Performed By: #### MG, LDH, CMP #### [facility] [address] [place] [address] Dr. Ladan Alcantara [Mass/Vol]99.0 ug/vFJtspsy83.0-175.0The [facility] Comment on above:Performed By: #### MG, LDH, CMP #### [facility] [address] [place] [address] Dr. Ladan McdonaldTIBC WLAHJA719.0 ug/mYUtviwn073.0-450.0[facility] Comment on above:Performed By: #### MG, LDH, CMP #### [facility] [address] [place] [address] Dr. Ladan McdonaldMAGNESIUMon 56-07-2015Jcprtkyjb [Mass/Vol]2.2 mg/dLNormal1.8-2.4 The OhiohealthComment on above:Performed By: #### MG, LDH, CMP #### [facility] [address] [place] [address] Dr. Ladan GoldenHofelicia 06-02-6960UOK7.839 uIU/mLNormal0.358-3.740The OhiohealthComment on above:Performed By: #### MG, LDH, CMP #### [facility] [address] [place] [address] Dr. Ladan Casillas B12 AND FOLATEon 76-84-6234Zofqcqpey (Vitamin B12) [Mass/Vol] 632.0 pg/wASsoooh823.0-986.0Ohio[facility] HospitalComment on above:Performed By: #### FERR, B12FOL, FETIBC #### [facility] [address] [place] [address] Dr. Ladan McdonaldFOLATE10.20 ng/mLNormal8.60-58.90Ohiohealth Dublin Methodist HospitalComment on above:Performed By: #### FERR, B12FOL, FETIBC #### [facility] [address] [place] [address] Dr. Ladan McdonaldCBC AND DIFFERENTIALon 10-10-2022% AUTOMATED IMMATURE GRAN CanceledNoMemorial Hospital CentralComment on above:Order Comment: TEST CBC AND DIFFERENTIAL WAS CANCELLED, 10/10/2022 15:36 NO SAMPLE RECIEVED/RELEASED IN ERRORResult Comment: Immature Granulocyte Count (IG) includes promyelocytes, myelocytes and metamyelocytes but does not include bands. Percent differential counts (%) should be interpreted in the context of the absolute cell counts (cells/L).Performed By: #### CBCDF #### [address] [place] [address]% BASOPHILCanceledNew Prague HospitalComment on above:Order Comment: TEST CBC AND DIFFERENTIAL WAS CANCELLED, 10/10/2022 15:36 NO SAMPLE RECIEVED/RELEASED IN ERRORPerformed By: #### CBCDF #### [address] [place] [address]% EOSINOPHILCanceledNew Prague HospitalComment on above:Order Comment: TEST CBC AND DIFFERENTIAL WAS CANCELLED, 10/10/2022 15:36 NO SAMPLE RECIEVED/RELEASED IN ERRORPerformed By: #### CBCDF #### [address] [place] [address]% LYMPHOCYTECanceledNew Prague HospitalComment on above:Order Comment: TEST CBC AND DIFFERENTIAL WAS CANCELLED, 10/10/2022 15:36 NO SAMPLE RECIEVED/RELEASED IN ERRORPerformed By: #### CBCDF #### [address] [place] [address]% MONOCYTECanceledNew Prague HospitalComment on above:Order Comment: TEST CBC AND DIFFERENTIAL WAS CANCELLED, 10/10/2022 15:36 NO SAMPLE RECIEVED/RELEASED IN ERRORPerformed By: #### CBCDF #### [address] [place] [address]% NEUTROPHILCanceledNew Prague HospitalComment on above:Order Comment: TEST CBC AND DIFFERENTIAL WAS CANCELLED, 10/10/2022 15:36 NO SAMPLE RECIEVED/RELEASED IN ERRORPerformed By: #### CBCDF #### [address] [place], [place] [address]DCKDIOQQYcgbkfkgOpccgqPONew Prague HospitalComascension providence hospital on above:Order Comment: TEST CBC AND DIFFERENTIAL WAS CANCELLED, 10/10/2022 15:36 NO SAMPLE RECIEVED/RELEASED IN ERRORPerformed By: #### CBCDF #### [address] [place], [place] [address]VFAERLLHNLFWRimzuijmTuvtgmKTSt. Mary's Medical CenterComment on above:Order Comment: TEST CBC AND DIFFERENTIAL WAS CANCELLED, 10/10/2022 15:36 NO SAMPLE RECIEVED/RELEASED IN ERRORPerformed By: #### CBCDF #### [address] [place], [place] [address]SZVHOXUEVXUtqwfpamDlvdtkJBSt. Mary's Medical CenterComment on above:Order Comment: TEST CBC AND DIFFERENTIAL WAS CANCELLED, 10/10/2022 15:36 NO SAMPLE RECIEVED/RELEASED IN ERRORPerformed By: #### CBCDF #### [address] [place], [place] [address]HMITpddugojKfphuaRRCanby Medical CenterComment on above: Order Comment: TEST CBC AND DIFFERENTIAL WAS CANCELLED, 10/10/2022 15:36 NO SAMPLE RECIEVED/RELEASED IN ERRORPerformed By: #### CBCDF #### [address] [place], [place] [address]YMZOqtlesbvNrhlqhMYCanby Medical CenterComment on above: Order Comment: TEST CBC AND DIFFERENTIAL WAS CANCELLED, 10/10/2022 15:36 NO SAMPLE RECIEVED/RELEASED IN ERRORPerformed By: #### CBCDF #### [address] [place], [place] [address]SAVIZLBXDFAgrdvryfHnbajnBBSt. Mary's Medical CenterComment on above:Order Comment: TEST CBC AND DIFFERENTIAL WAS CANCELLED, 10/10/2022 15:36 NO SAMPLE RECIEVED/RELEASED IN ERRORPerformed By: #### CBCDF #### [address] [place], [place] [address]CKKSKzurytuyOfqmlwBARiver's Edge HospitalComment on above: Order Comment: TEST CBC AND DIFFERENTIAL WAS CANCELLED, 10/10/2022 15:36 NO SAMPLE RECIEVED/RELEASED IN ERRORPerformed By: #### CBCDF #### [address] [place], [place] [address]PXWPaepeixeDtnqlaLGMadelia Community HospitalComment on above: Order Comment: TEST CBC AND DIFFERENTIAL WAS CANCELLED, 10/10/2022 15:36 NO SAMPLE RECIEVED/RELEASED IN ERRORPerformed By: #### CBCDF #### [address] [place], [place] [address]YODYQXDTVlbhastbYcooqfPTSt. Mary's Medical CenterComment on above:Order Comment: TEST CBC AND DIFFERENTIAL WAS CANCELLED, 10/10/2022 15:36 NO SAMPLE RECIEVED/RELEASED IN ERRORPerformed By: #### CBCDF #### [address] [place], [place] [address]LOBRVDUZDOIydaciiuMehmkoRPSt. Mary's Medical CenterComascension providence hospital on above:Order Comment: TEST CBC AND DIFFERENTIAL WAS CANCELLED, 10/10/2022 15:36 NO SAMPLE RECIEVED/RELEASED IN ERRORPerformed By: #### CBCDF #### [address] [place], [place] [address]PLLLaixrgubRlkluqSOMadelia Community HospitalComascension providence hospital on above: Order Comment: TEST CBC AND DIFFERENTIAL WAS CANCELLED, 10/10/2022 15:36 NO SAMPLE RECIEVED/RELEASED IN ERRORPerformed By: #### CBCDF #### [address] [place], [place] [address]KQOIcnwvbxpEpplksEPCanby Medical CenterComment on above: Order Comment: TEST CBC AND DIFFERENTIAL WAS CANCELLED, 10/10/2022 15:36 NO SAMPLE RECIEVED/RELEASED IN ERRORPerformed By: #### CBCDF #### [address] [place], [place] [address]BWC-YPKvhvfiaeGhjdbxSYSt. Mary's Medical CenterComment on above:Order Comment: TEST CBC AND DIFFERENTIAL WAS CANCELLED, 10/10/2022 15:36 NO SAMPLE RECIEVED/RELEASED IN ERRORPerformed By: #### CBCDF #### [address] [place], [place] [address]URXUxdgzspbYrjbrtEUSt. Mary's Medical CenterComment on above: Order Comment: TEST CBC AND DIFFERENTIAL WAS CANCELLED, 10/10/2022 15:36 NO SAMPLE RECIEVED/RELEASED IN ERRORPerformed By: #### CBCDF #### [address] [place], [place] [address]Ewfovc Note - Heme Onc Schedulingon 70-36-3968Nyjiqe Note - Heme Onc SchedulingRetrieve Patient Instructions: Patient Instructions: Patient Instructions: RetrievePatient Instructions Instructions Typenutrition Instructions Return to clinic Please call the office with any new or worsening symptoms in the meantime. End of Visit Documentation: Clinic Location/Phone Number: Clinic Location/Phone Number: [address] [place] [address] End Of Visit MU Report Item: Visit Summary given or mailed to patientyes Electronic Signatures: Whit Dugan (SEC) (Signed 10-Oct-2022 14:02) Authored: Retrieve Patient Instructions, End of Visit Documentation Last Updated: 10-Oct-2022 14:02 by Whit Dugan (SEC)[facility] Note - Heme Onc-Follow Up Visiton 43-43-4341Lzpmtb Note - Heme Onc-Follow Up VisitPatient Visit [...] to Dr. Rodriguez in oncology at [facility] for evaluation. 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 Bone marrow biopsy was done which was negative for involvement with lymphoma . He also underwent an LP with low yield. Because of his meningeal enhancement and location close to MD UROLOGIST, he was treated with hyperCVAD-MA. He received [...] was compared to this patient's previous biopsy ([id number]). The previous biopsy demonstrated areas of necrosis [...] TP53 mutations. The patient was enrolled on [id number], Venetoclax+RICE. Cycle 1 started 10/29/17. Had tumor [...] pneumonitis. The patient was recently readmitted to [facility] (06/16-06/18/18) for fever and PNA. 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 He completed by mouth Levaquin. The patient was admitted to [facility] (08/18-08/21/18) with a new PE. He was [...] CAR T Cell infusion 01/04/19 with tisagenlecleucel (Funding [employer]) with preparative regimen of fludarabine and cytoxan. History of Present Illness: ID Statement: KATERINA DANIELLE is a 61 year old Male (more content not included)...[facility] HospitalClinic Note - Intakeon 02-92-7166Kdzjch Note - IntakePatient Visit Information: Visit TypeFollow [...] 3 Weights & HeightsDate: Weight/Scale Type:Height: 15-Aug-2022 12:29571.7 kg 182.5 cm 21-Feb-2022 13:69663 kg 182.5 cm 21-Nov-2021 11:72021.3 kg / standing kycxq396.5 cm SpO2 (%)94 % SpO2 Patient Onroom [...] Updated: 10-Oct-2022 12:45 by Linda Romero (PAKO II)New Prague HospitalCBC AUTO DIFFon 38-76-8114INAD #0.0 103/ulNormal0.0-0.1The [place]healthComment on above:Performed By: #### CBC #### [facility] [address] [address] [address] Ladan McdonaldBasophils/100 WBC (Bld)0.3 %Normal0.2-2.0[facility] Comment on above:Performed By: #### CBC #### [facility] [address] [address] [address] Ladan Karimi #0.2 103/ulNormal0.0-0.7The [place]healthComment on above: Performed By: #### CBC #### [facility] [address] [address] [address] Ladan Riveraosinophils/100 WBC (Bld)4.8 %Normal0.9-7.0The [facility] Comment on above:Performed By: #### CBC #### [facility] [address] [place] [address] Dr. Ladan Riverarythrocyte distribution width (RBC) [Ratio]16.1 %Critically high 11.0-15.0The [place]healthComment on above:Performed By: #### CBC #### [facility] [address] [address] [address] Ladan McdonaldHematocrit (Bld) [Volume fraction]46.7 %Rsvvlk81.0-54.0The [place]healthComment on above:Performed By: #### CBC #### [facility] [address] [place] [address] Dr. Ladan McdonaldHemoglobin (Bld) [Mass/Vol]13.6 g/dLCritically low14.0-18.0The [facility] HospitalComment on above:Performed By: #### CBC #### [facility] [address] [place] [address] Dr. Ladan Mott #0.02 10e3/ulNormal0.00-0.03The [place]healthComment on above:Performed By: #### CBC #### [facility] [address] [place] [address] Dr. Ladan Mott %0.5 %Normal0.0-0.5The [place]healthComment on above: Performed By: #### CBC #### [facility] [address] [place] [address] Dr. Ladan Woodson #1.0 103/ulCritically low1.2-3.8The [facility] Comment on above:Performed By: #### CBC #### [facility] [address] [place] [address] Dr. Ladan Tavarezmphocytes/100 WBC (Bld)26.1 %Dsgugc07.5-60.0The [facility] HospitalComment on above:Performed By: #### CBC #### [facility] [address] [place] [address] Dr. Ldaan MarcusUAL DIFF REQNONormalThe [place]healthComment on above: Performed By: #### CBC #### [facility] [address] [place] [address] Dr. Ladan Villarreal (RBC) [Entitic mass]26.6 vjKzznag44.9-34.0The [place]healthComment on above:Performed By: #### CBC #### [facility] [address] [address] [address] Ladan SherHC (RBC) [Mass/Vol]29.1 g/dLCritically low29.9-35.2The [place]healthComment on above:Performed By: #### CBC #### [facility] [address] [address] [address] Ladan SherV (RBC) [Entitic vol]91.4 uERnzxwx57.0-94.0The [place]healthComment on above:Performed By: #### CBC #### [facility] [address] [address] [address] Ladan Truong #0.4 103/ulNormal0.3-0.8The [place]healthComment on above:Performed By: #### CBC #### [facility] [address] [address] [address] Ladan Barronocytes/100 WBC (Bld)8.8 %Normal1.7-12.0The [facility] Comment on above:Performed By: #### CBC #### [facility] [address] [address] [address] Ladan Almazan #2.4 103/ulNormal1.4-6.5The [place]healthComment on above:Performed By: #### CBC #### [facility] [address] [address] [address] Ladan Cruzutrophils/100 WBC (Bld)59.5 %Bkwfrf09.0-75.0The [place]healthComment on above:Performed By: #### CBC #### [facility] [address] [address] [address] Ladan Bushlet mean volume (Bld) [Entitic vol]10.1 fLNormal9.5-13.5The [place]healthComment on above:Performed By: #### CBC #### [facility] [address] [address] [address] Ladan McdonaldPLT132 103/ulCritically sng223-292Yev [facility] Hospitalment on above:Performed By: #### CBC #### [facility] [address] [place] [address] Dr. Ladan McdonaldRBC5.11 106/ulNormal4.70-6.10The [facility]healthCom[facility] providence hospital on above:Performed By: #### CBC #### [facility] [address] [place] [address] Dr. Ladan McdonaldWBC4.0 103/ulNormal4.0-11.0The [facility]healthComasc[facility] prov[facility] hospital on above: Performed By: #### CBC #### [facility] [address] [place] [address] Dr. Ladan Henley 36-23-2849MBQ147 U/LCritically rfwd36-828Jrz [facility] on above:Performed By: #### MG, LDH, CMP #### [facility] [address] [place] [address] Dr. Ladan McdonaldMAGNESIUMon 60-09-2158Vavqnuipj [Mass/Vol]2.1 mg/dLNormal1.8-2.4 The [facility]healthComascension providence hospital on above:Performed By: #### MG, LDH, CMP #### [facility] [address] [place] [address] Dr. Ladan White 14(COMP METB)on 29-28-1161Afwbxko [Mass/Vol]3.5 g/dLNormal 3.4-5.0The [facility] on above:Performed By: #### MG, LDH, CMP #### [facility] [address] [place] [address] Dr. Ladan McdonaldAlbumin/Globulin [Mass ratio]1.0 {ratio}NormalThe [facility] on above:Performed By: #### MG, LDH, CMP #### [facility] [address] [place] [address] Dr. Ladan BrennanP [Catalytic activity/Vol]121 U/LCritically kuec27-209Kpb [facility] on above:Performed By: #### MG, LDH, CMP #### [facility] [address] [address] [address] Ladan BrennanT [Catalytic activity/Vol]51 U/LZqxrqu05-51Xxr OhiohealthComment on above:Performed By: #### MG, LDH, CMP #### [facility] [address] [address] [address] Ladan McdonaldAnion gap [Moles/Vol]11.7 mmol/LNormalThe [facility] Comment on above:Performed By: #### MG, LDH, CMP #### [facility] [address] [address] [address] Ladan McdonaldAST [Catalytic activity/Vol]33 U/DNdktsl80-13Jtw OhiohealthComment on above:Performed By: #### MG, LDH, CMP #### [facility] [address] [place] [address] Dr. Ladan McdonaldBilirubin [Mass/Vol]0.4 mg/dLNormal0.2-1.0The [facility] Comment on above:Performed By: #### MG, LDH, CMP #### [facility] [address] [address] [address] Ladan McdonaldCalcium [Mass/Vol]9.4 mg/dLNormal8.5-10.1The [facility] Comment on above:Performed By: #### MG, LDH, CMP #### [facility] [address] [address] [address] Ladan McdonaldChloride [Moles/Vol]104 mmol/FVbemdb65-321Hqp [facility] Comment on above:Performed By: #### MG, LDH, CMP #### [facility] [address] [address] [address] Ladan McdonaldCO2 [Moles/Vol]29.0 mmol/IClwjso95.0-32.0The [facility] Comment on above:Performed By: #### MG, LDH, CMP #### [facility] [address] [address] [address] Ladan McdonaldCreatinine [Mass/Vol]1.61 mg/dLCritically high0.70-1.30The [facility] HospitalComment on above:Performed By: #### MG, LDH, CMP #### [facility] [address] [address] [address] Ladan RiveraGFR-AF WESLZIRU96 mL/min/1.22d9Oxiuwnpkhq low>=60The [facility]healthComment on above:Performed By: #### MG, LDH, CMP #### [facility] [address] [address] [address] Ladan RiveraGFR-NON AF XIRGPLKH84 mL/min/1.58u0Udsdjmlmrm low>=60[facility] HospitalComment on above:Performed By: #### MG, LDH, CMP #### [facility] [address] [place] [address] Dr. Ladan McdonaldGlobulin (S) [Mass/Vol]3.6 g/dLNormalThe [facility]healthComment on above:Performed By: #### MG, LDH, CMP #### [facility] [address] [place] [address] Dr. Ladan McdonaldGlucose [Mass/Vol]107 mg/dLCritically hegp80-147Nuz OhiohealthComment on above:Performed By: #### MG, LDH, CMP #### [facility] [address] [place] [address] Dr. Ladan McdonaldPotassium [Moles/Vol]4.7 mmol/LNormal3.5-5.1[facility] Comment on above:Performed By: #### MG, LDH, CMP #### [facility] [address] [place] [address] Dr. Ladan McdonaldProtein [Mass/Vol]7.1 g/dLNormal6.4-8.2[facility] Comment on above:Performed By: #### MG, LDH, CMP #### [facility] [address] [place] [address] Dr. Ladan McdonaldSodium [Moles/Vol]140 mmol/FRqmvqz663-487SgyOhiohealth Dublin Methodist Hospital Comment on above:Performed By: #### MG, LDH, CMP #### [facility] [address] [place] [address] Dr. Ladan Fernandez nitrogen [Mass/Vol]27.0 mg/dLCritically high7.0-18.0[facility] HospitalComment on above:Performed By: #### MG, LDH, CMP #### [facility] [address] [place], [place] [address] Dr. Ladan Fernandez nitrogen/Creatinine [Mass ratio]16.8 mg/mgNormalThe [facility]healthComment on above:Performed By: #### MG, LDH, CMP #### [facility] [address] [place], [place] [address] Dr. Ladan McdonaldPhone Note - Heme Onc-lab requisitionon 39-08-5661Sgezu Note - Heme Onc-lab requisitionPhone Call Information: Patient Demographics: Name: KATERINA DANIELLE Date: 1960 Address: [address] [place] [address] Date and Time: 27-Sep-2022 08:29 Caller Information: call from Primary Phone Number: [phone] Reason for Call: Reason for Calllab requisition Message: Message: Needs lab order sent to [facility] [email or web address] in [place], [place] or [facility] in [place], [place]. Has appointment scheduled for next . Patient called back- fax number to lab at [facility]: [phone] Team Communication: Team Communications: RN printed and this corporate legal secretary faxed. Confirmation received 10:21am. Ashley Dugan [...] Updated: 27-Sep-2022 10:26 by Ashley Dugan (UNIT SECT)[facility] HospitalPhone Note - Heme Onc-refill medication...on 09-06-2022 Phone Note - Heme Onc-refill medication...Phone Call Information: Patient Demographics: Name: KATERINA DANIELLE Date: 1960 Address: [address] [place] [address] Date and Time: 06-Sep-2022 10:40 Caller Information: call from Call From: patient Primary Phone Number: [phone] Reason for Call: Reason for Callrefill medication Message: Message: Patient fills Gabapentin with [facility] now [facility]. He has 14 pills left. They will not refill for him until 09/22/22 and then say it will be 1-2 weeks before delivery. He will be out of medication by then. Asking if office can rectify Team Communication: Clinician note: contacted patient Disposition: Rx sent by eprescribe Team Communications: Spoke with Yas at [facility]. States patient needs a refill for gabapentin sent in and then he will be able to receive the medication within 7 business days or less. Tea Oro 09/06/2022 11:[address] Sears: KATERINA DANIELLE ([id number]): Needs refill of gabapentin 300mg daily please [...] date/time LDH 21-Feb-2022 14:00 N/A Electronic Signatures: Lamangel Tea (N MGR) (Signed 06-Sep-2022 11:22) Authored: Phone Call Information Ashley Dugan (UNIT SECT) (Signed 06-Sep-2022 10:43) Authored: Phone Call Information, Outpatient Medication Profile, Orders, Allergies, Results Last Updated: 06-Sep-2022 11:22 by Tea Oro (N MGR)[facility] HospitalCl[facility] Note - Heme Onc-Follow Up Visiton 52-92-2664Zwkpaf Note - Heme Onc-Follow Up VisitPatient Visit [...] to Dr. Rodriguez in oncology at [facility] for evaluation. 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 Bone marrow biopsy was done which was negative for involvement with lymphoma . He also underwent an LP with low yield. Because of his meningeal enhancement and location close to MD UROLOGIST, he was treated with hyperCVAD-MA. He received [...] was compared to this patient's previous biopsy ([id number]). The previous biopsy demonstrated areas of necrosis [...] TP53 mutations. The patient was enrolled on [id number], Venetoclax+RICE. Cycle 1 started 10/29/17. Had tumor [...] pneumonitis. The patient was recently readmitted to [facility] (06/16-06/18/18) for fever and PNA. 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 He completed by mouth Levaquin. The patient was admitted to [facility] (08/18-08/21/18) with a new PE. He was [...] CAR T Cell infusion 01/04/19 with tisagenlecleucel (Funding [employer]) with preparative regimen of fludarabine and cytoxan. History of Present Illness: ID Statement: KATERINA DANIELLE is a 61 year old Male (more content not included)...NormalRunnells Specialized HospitalClinic Note - Intakeon 40-10-9597Gjycge Note - IntakePatient Visit Information: Visit TypeFollow [...] 3 Weights & HeightsDate: Weight/Scale Type:Height: 21-Feb-2022 13:58197 kg 182.5 cm 21-Nov-2021 11:41110.3 kg / standing qbaaf336.5 cm 23-Aug-2021 13:65571.3 kg / standing nplex945.5 cm SpO2 (%)94 % SpO2 Patient Onroom [...] the patient using an assistive deviceno Spiritual/Procedural: Spiritual/cultural/restorationism practices important for us to knowno Adv Dir: [facility] Declaration of Mental Health Treatmentno Violence: Are you or have you been threatened or abused physically,emotionally or sexually abused by anyoneno Do you feel UNSAFE going back to the place you are livingno Depression: Past 2 wks: [place] down, depressed or hopelessno Past 2 wks: [place] little interest/pleasure doing thingsno Any Thoughts of [...] Other Rivera Learnerno Electronic Signatures: Linda Romero (PAKO PAGAN) (Signed 15-Aug-2022 12:44) Authored: Patient Visit Information, Vital Signs, Allergies, Outpatient Medication Profile, Notification, Travel History, Falls, Spiritual/Procedural, Adv Dir, Violence, Depression, Substance, Nutrition/Learning Last Updated: 15-Aug-2022 12:44 by Linda Romero (PAKO PAGAN)[facility] HospitalCBC AUTO DIFFon 15-58-3327NPMD #0.0 103/ulNormal0.0-0.1[facility] HospitalComment on above:Performed By: #### CBC #### [facility] [address] [place] [address] Dr. Pickering ChangBasophils/100 WBC (Bld)0.5 %Normal0.2-2.0[facility] Comment on above:Performed By: #### CBC #### [facility] [address] [address] [address] Ladan Karimi #0.2 103/ulNormal0.0-0.7The [place]healthComment on above: Performed By: #### CBC #### [facility] [address] [address] [address] Ladan Riveraosinophils/100 WBC (Bld)4.3 %Normal0.9-7.0[facility] Comment on above:Performed By: #### CBC #### [facility] [address] [place] [address] Dr. Ladan Riverarythrocyte distribution width (RBC) [Ratio]15.7 %Critically high 11.0-15.0The [facility] Hospitalment on above:Performed By: #### CBC #### [facility] [address] [place] [address] Dr. Ladan McdonaldHematocrit (Bld) [Volume fraction]44.2 %Kphuwd18.0-54.0The [place]healthComment on above:Performed By: #### CBC #### [facility] [address] [place] [address] Dr. Ladan McdonaldHemoglobin (Bld) [Mass/Vol]14.0 g/jWVdivyv98.0-18.0The [facility] Hospitalment on above:Performed By: #### CBC #### [facility] [address] [place] [address] Dr. Ladan Mott #0.06 10e3/ulCritically high0.00-0.03The [facility] Comment on above:Performed By: #### CBC #### [facility] [address] [place] [address] Dr. Ladan Mott %1.5 %Critically high0.0-0.5The [facility] Hospitalment on above:Performed By: #### CBC #### [facility] [address] [place] [address] Dr. Ladan MeadH #1.4 103/ulNormal1.2-3.8The [place]healthComment on above:Performed By: #### CBC #### [facility] [address] [place] [address] Dr. Ladan Tavarezmphocytes/100 WBC (Bld)35.2 %Rmfaoo96.5-60.0The [facility] Hospitalment on above:Performed By: #### CBC #### [facility] [address] [place] [address] Dr. Ladan MarcusUAL DIFF REQNONormalThe OhiohealthComment on above: Performed By: #### CBC #### [facility] [address] [address] [address] Ladan Sher (RBC) [Entitic mass]26.4 dwOfwccw73.9-34.0The [place]healthComment on above:Performed By: #### CBC #### [facility] [address] [place] [address] Dr. Ladan Sher (RBC) [Mass/Vol]31.7 g/dWZxcnvl38.9-35.2The [place]healthComment on above:Performed By: #### CBC #### [facility] [address] [place] [address] Dr. Ladan Sher (RBC) [Entitic vol]83.2 fKAalvpg14.0-94.0The [facility]healthComment on above:Performed By: #### CBC #### [facility] [address] [place] [address] Dr. Ladan Truong #0.3 103/ulNormal0.3-0.8The [place]healthComment on above:Performed By: #### CBC #### [facility] [address] [place] [address] Dr. Ladan Barronocytes/100 WBC (Bld)6.4 %Normal1.7-12.0The [facility] Comment on above:Performed By: #### CBC #### [facility] [address] [place] [address] Dr. Ladan CruzUT #2.0 103/ulNormal1.4-6.5The [place]healthComment on above:Performed By: #### CBC #### [facility] [address] [place] [address] Dr. Ladan Cruzutrophils/100 WBC (Bld)52.1 %Bcpfni72.0-75.0The [place]healthComment on above:Performed By: #### CBC #### [facility] [address] [place] [address] Dr. Ladan Bushlet mean volume (Bld) [Entitic vol]9.4 fLCritically low 9.5-13.5The [place]healthComment on above:Performed By: #### CBC #### [facility] [address] [address] [address] Ladan McdonaldPLT137 103/ulCritically hun266-035Pgn OhiohealthComment on above:Performed By: #### CBC #### [facility] [address] [place] [address] Dr. Ladan McdonaldRBC5.31 106/ulNormal4.70-6.10The [place]healthComment on above:Performed By: #### CBC #### [facility] [address] [place] [address] Dr. Ladan McdonaldWBC3.9 103/ulCritically low4.0-11.0The [place]healthComment on above:Performed By: #### CBC #### [facility] [address] [place] [address] Dr. Ladan GrafHofelicia [id number] U/QEpljqe98-472Fuy [facility] Comment on above:Performed By: #### MG, LDH, CMP #### [facility] [address] [place] [address] Dr. Ladan McdonaldMAGNESIUMon 57-25-6740Btoenepqu [Mass/Vol]2.1 mg/dLNormal1.8-2.4 The OhiohealthComment on above:Performed By: #### MG, LDH, CMP #### [facility] [address] [place] [address] Dr. Ladan McdonaldPROF 14(COMP METB)on 66-92-8221Iwxwhty [Mass/Vol]3.5 g/dLNormal 3.4-5.0The OhiohealthComment on above:Performed By: #### MG, LDH, CMP #### [facility] [address] [place] [address] Dr. Ladan McdonaldAlbumin/Globulin [Mass ratio]0.9 {ratio}NormalThe OhiohealthComment on above:Performed By: #### MG, LDH, CMP #### [facility] [address] [place] [address] Dr. Ladan BrennanP [Catalytic activity/Vol]118 U/LCritically tcwq64-345Kxz [facility]healthComment on above:Performed By: #### MG, LDH, CMP #### [facility] [address] [address] [address] Ladan BrennanT [Catalytic activity/Vol]46 U/NAttcbf33-18Khk [facility]healthComment on above:Performed By: #### MG, LDH, CMP #### [facility] [address] [address] [address] Ladan Palafoxon gap [Moles/Vol]8.7 mmol/LNormalThe OhiohealthComment on above:Performed By: #### MG, LDH, CMP #### [facility] [address] [place] [address] Dr. Ladan McdonaldAST [Catalytic activity/Vol]30 U/MAawiph11-76Hpl [facility]healthComment on above:Performed By: #### MG, LDH, CMP #### [facility] [address] [place] [address] Dr. Ladan McdonaldBilirubin [Mass/Vol]0.4 mg/dLNormal0.2-1.0[facility] Comment on above:Performed By: #### MG, LDH, CMP #### [facility] [address] [place] [address] Dr. Ladan McdonaldCalcium [Mass/Vol]9.1 mg/dLNormal8.5-10.1The [facility] Comment on above:Performed By: #### MG, LDH, CMP #### [facility] [address] [place] [address] Dr. Ladan McdonaldChloride [Moles/Vol]106 mmol/ZCvoexq51-499Tuk [facility] Comment on above:Performed By: #### MG, LDH, CMP #### [facility] [address] [place] [address] Dr. Ladan McdonaldCO2 [Moles/Vol]31.9 mmol/RGnnvuw86.0-32.0The [facility] Comment on above:Performed By: #### MG, LDH, CMP #### [facility] [address] [address] [address] Ladan McdonaldCreatinine [Mass/Vol]1.68 mg/dLCritically high0.70-1.30The [facility]healthComment on above:Performed By: #### MG, LDH, CMP #### [facility] [address] [place] [address] Dr. Ladan RiveraGFR-AF JGXBFLUR53 mL/min/1.34n3Fqyaisuktp low>=60The [facility]healthComment on above:Performed By: #### MG, LDH, CMP #### [facility] [address] [place] [address] Dr. Ladan RiveraGFR-NON AF VWWBPMKP85 mL/min/1.40m7Yjlpqgebjf low>=60The [facility]healthComment on above:Performed By: #### MG, LDH, CMP #### [facility] [address] [place] [address] Dr. Ladan McdonaldGlobulin (S) [Mass/Vol]3.7 g/dLNormalThe [facility]healthComment on above:Performed By: #### MG, LDH, CMP #### [facility] [address] [place] [address] Dr. Ladan McdonaldGlucose [Mass/Vol]110 mg/dLCritically jqsh83-038Slm [facility] on above:Performed By: #### MG, LDH, CMP #### [facility] [address] [place] [address] Dr. Ladan McdonaldPotassium [Moles/Vol]4.6 mmol/LNormal3.5-5.1The [facility] Comment on above:Performed By: #### MG, LDH, CMP #### [facility] [address] [place] [address] Dr. Ladan McdonaldProtein [Mass/Vol]7.2 g/dLNormal6.4-8.2The [facility] Comment on above:Performed By: #### MG, LDH, CMP #### [facility] [address] [place] [address] Dr. Yilan ChangSodium [Moles/Vol]142 mmol/QNrbhpe201-091Tws [facility] Comment on above:Performed By: #### MG, LDH, CMP #### [facility] [address] [address] [address] Ladan Fernandez nitrogen [Mass/Vol]24.0 mg/dLCritically high7.0-18.0[facility] HospitalComment on above:Performed By: #### MG, LDH, CMP #### [facility] [address] [address] [address] Ladan Fernandez nitrogen/Creatinine [Mass ratio]14.3 mg/mgNormalThAdena Regional Medical CenterComment on above:Performed By: #### MG, LDH, CMP #### [facility] [address] [address] [address] Ladan Miller Note - Heme Onc-lab requisition - Mailing lab reqon [id number] Note - Heme Onc-lab requisition - Mailing lab reqPhone Call Information: Patient Demographics: Name: KATERINA DANIELLE Date: 1960 Address: [address] [place] [address] Date and Time: 06-Aug-2022 10:58 Caller Information: call from Primary Phone Number: [phone] Reason for Call: Reason for Calllab requisition, [...] Last Updated: 06-Aug-2022 11:16 by Zofia Smith (RN)[facility] Von [id number] CHEST 2 VEXAMINATION: XR CHEST 2 V [...] Electronically authenticated by: JS LÓPEZ Date: 2022-07-18 15:06[facility] ([facility]-Neph[facility] - Established)on 07-16-2022 Follow-up visitDiagnoses/Problems CKD (chronic kidney disease), stage III (585.3) (N18.30) Benign essential HTN (401.1) (I10) Hyperparathyroidism, secondary (588.81) (N25.81) Orders Benign essential HTN, CKD (chronic kidney disease), stage III, Hyperparathyroidism, secondary Basic Metabolic Panel; Status:Active; Requested for:54Qua1663; Parathormone Intact, Serum; Status:Active; Requested for:96Hvf8904; Phosphorus, Serum; Status:Active; Requested for:84Ray4846; Provider Impressions 1- CKD III: His Cr [...] content not included)...NormalUH TouchworksCOVID-19 SOFIAOrdered By: Victor Hugo Farrell on 03-45-3889GNVY-CoV+SARS-CoV-2 (COVID-19) Ag IA.rapid Ql (Resp)NegativeNegative [facility] HospitalComment on above:This is a duplicate Mariella SARS Antigen (JOE) result to be used for statistical tracking purpose only.No Panel InformationOrdered By: Victor Hugo Farrell on 34-04-3036[facility] Antigen (LFIA)[facility] HospitalECHOCARDIO M/2D COMPLETEon 52-05-3750AEHFLMUPRX M/2D COMPLETEPatient: KATERINA DANIELLE Exam Date: 04/01/2022 : 1960 Gender:M Ordering : DR NAEL FARIAS . Admission #: [id number] Family : Order #: [id number] CLICK HERE TO VIEW EXAM ECHOCARDIOGRAM REPORT [...] by: Spencer Perkins M.D. on 04/02/2022 at 18:37[facility] HospitalLACTATE DEHYDROGENASE (LD) ISOENZYMESon 08-01-4518SG FRACTION 116 % Critically fnk88-38Xfx [facility] on above:Result Comment: Performed at: BNPerformed By: #### LDISO #### [facility] [address] [place] [address] Dr. Ladan Graf FRACTION 233 %Acnbyi35-27Fhz [facility] on above:Result Comment: Performed at: BNPerformed By: #### LDISO #### [facility] [address] [place] [address] Dr. Ladan Graf FRACTION 323 %Wnoibs18-13Uuo [facility] on above:Result Comment: Performed at: BNPerformed By: #### LDISO #### [facility] [address] [address] [address] Ladan Graf FRACTION 413 %Normal5-13The [facility] HospitalComment on above: Result Comment: Performed at: BNPerformed By: #### LDISO #### [facility] [address] [place], [place] [address] Dr. Ladan Graf FRACTION 515 %Normal4-20[facility] on above: Result Comment: Performed at: BNPerformed By: #### LDISO #### [facility] [address] [place], [place] [address] Dr. Ladan GrafH245 IU/LCritically ecdk714-496WmxOhiohealth Dublin Methodist HospitalComment on above:Result Comment: Performed at: CBPerformed By: #### LDISO #### [facility] [address] [place], [place] [address] Dr. Ladan De La FuenteC AND DIFFERENTIALon 02-21-2022% AUTOMATED IMMATURE GRAN CanceledNormalSt. [facility]Com[facility] on above:Order Comment: TEST CBC AND DIFFERENTIAL WAS CANCELLED, 02/21/2022 14:13 Cancelled per Zofia.Result Comment: Immature Granulocyte Count (IG) includes promyelocytes, myelocytes and metamyelocytes but does not include bands. Percent differential counts (%) should be interpreted in the context of the absolute cell counts (cells/L).Performed By: #### CBCDF #### [address] [place] [address]% BASOPHILCanceledNormalSt. [facility] CenterCom[facility] hospital on above:Order Comment: TEST CBC AND DIFFERENTIAL WAS CANCELLED, 02/21/2022 14:13 Cancelled per Zofia.Performed By: #### CBCDF #### [address] [place] [address]% EOSINOPHILCanceledNormalSt. [facility]Com[facility] on above:Order Comment: TEST CBC AND DIFFERENTIAL WAS CANCELLED, 02/21/2022 14:13 Cancelled per Zofia.Performed By: #### CBCDF #### [address] [place] [address]% LYMPHOCYTECanceledNormalSt. [facility]Com[facility] on above:Order Comment: TEST CBC AND DIFFERENTIAL WAS CANCELLED, 02/21/2022 14:13 Cancelled per Zofia.Performed By: #### CBCDF #### [address] [place] [address]% MONOCYTECanceledNormalSt. [facility]Com[facility] on above:Order Comment: TEST CBC AND DIFFERENTIAL WAS CANCELLED, 02/21/2022 14:13 Cancelled per Zofia.Performed By: #### CBCDF #### [address] [place] [address]% NEUTROPHILCanceledNormalSt. [facility]Com[facility] on above:Order Comment: TEST CBC AND DIFFERENTIAL WAS CANCELLED, 02/21/2022 14:13 Cancelled per Zofia.Performed By: #### CBCDF #### [address] [place], [place] [address]ISMKTGFHMwxdzscuSzfafpSu. [facility] on above: Order Comment: TEST CBC AND DIFFERENTIAL WAS CANCELLED, 02/21/2022 14:13 Cancelled per Zofia.Performed By: #### CBCDF #### [address] [place], [place] [address]XNGBGKAJEPJARstxrgbnLovwdsVl. [facility] on above:Order Comment: TEST CBC AND DIFFERENTIAL WAS CANCELLED, 02/21/2022 14:13 Cancelled per Zofia.Performed By: #### CBCDF #### [address] [place], [place] [address]SMACTWZXMAIsecuyrwOvtufcAx. [facility] on above:Order Comment: TEST CBC AND DIFFERENTIAL WAS CANCELLED, 02/21/2022 14:13 Cancelled per Zofia.Performed By: #### CBCDF #### [address] [place], [place] [address]KPLIbtbszgeQzvuwoDp. [facility] on above:Order Comment: TEST CBC AND DIFFERENTIAL WAS CANCELLED, 02/21/2022 14:13 Cancelled per Zofia.Performed By: #### CBCDF #### [address] [place], [place] [address]EIQKwwzwkpmQhmfouKq. [facility] on above:Order Comment: TEST CBC AND DIFFERENTIAL WAS CANCELLED, 02/21/2022 14:13 Cancelled per Zofia.Performed By: #### CBCDF #### [address] [place], [place] [address]ZGJLBGDUODNjmsskmuUrcclcPf. [facility] on above:Order Comment: TEST CBC AND DIFFERENTIAL WAS CANCELLED, 02/21/2022 14:13 Cancelled per Zofia.Performed By: #### CBCDF #### [address] [place], [place] [address]EZODKelcyyctUrfyqlRh. [facility] on above: Order Comment: TEST CBC AND DIFFERENTIAL WAS CANCELLED, 02/21/2022 14:13 Cancelled per Zofia.Performed By: #### CBCDF #### [address] [place], [place] [address]NZQIpvntvyuHxhpewMg. [facility] on above:Order Comment: TEST CBC AND DIFFERENTIAL WAS CANCELLED, 02/21/2022 14:13 Cancelled per Zofia.Performed By: #### CBCDF #### [address] [place], [place] [address]GETABMAPKhrbducuXhuuptTx. [facility] on above: Order Comment: TEST CBC AND DIFFERENTIAL WAS CANCELLED, 02/21/2022 14:13 Cancelled per Zofia.Performed By: #### CBCDF #### [address] [place], [place] [address]LRCRHZCOIARwxvpftfGsuosxNp. [facility] on above:Order Comment: TEST CBC AND DIFFERENTIAL WAS CANCELLED, 02/21/2022 14:13 Cancelled per Zofia.Performed By: #### CBCDF #### [address] [place], [place] [address]YPBXtxqevokBdmoatPr. [facility] on above:Order Comment: TEST CBC AND DIFFERENTIAL WAS CANCELLED, 02/21/2022 14:13 Cancelled per Zofia.Performed By: #### CBCDF #### [address] [place], [place] [address]PFUDvdptepaCxojnzPj. [facility] CenterComment on above:Order Comment: TEST CBC AND DIFFERENTIAL WAS CANCELLED, 02/21/2022 14:13 Cancelled per Zofia.Performed By: #### CBCDF #### [address] [place], [place] [address]UTZ-EGNltoacknCgzvupFa. [facility] on above: Order Comment: TEST CBC AND DIFFERENTIAL WAS CANCELLED, 02/21/2022 14:13 Cancelled per Zofia.Performed By: #### CBCDF #### [address] [place], [place] [address]TKPEiuxelsdTjncqzXu. [facility] CenterComment on above:Order Comment: TEST CBC AND DIFFERENTIAL WAS CANCELLED, 02/21/2022 14:13 Cancelled per Zofia.Performed By: #### CBCDF #### [address] [place], [place] [address]AHDEKJPRTRDAB PANELon 02-96-7927YWEZULKYkfrdqvoQuwhjqVe. [facility] CenterComment on above:Order Comment: TEST COMPREHENSIVE PANEL WAS CANCELLED, 02/21/2022 14:13 Cancelled per Zofia.Performed By: #### CMP #### [address] [place], [place] [address]JTSCOUZY PHOSPHATASECanceledNormalSt. [facility] Comment on above:Order Comment: TEST COMPREHENSIVE PANEL WAS CANCELLED, 02/21/2022 14:13 Cancelled per Zofia.Performed By: #### CMP #### [address] [place], [place] [address]YBPRckmxkbyLciexmDy. [facility] CenterComment on above:Order Comment: TEST COMPREHENSIVE PANEL WAS CANCELLED, 02/21/2022 14:13 Cancelled per Zofia.Result Comment: Patients treated with Sulfasalazine may generate falsely decreased results for ALT.Performed By: #### CMP #### [address] [place], [place] [address]WKTEI GAPCanceledNormalSt. [facility]Com[facility] on above:Order Comment: TEST COMPREHENSIVE PANEL WAS CANCELLED, 02/21/2022 14:13 Cancelled per Zofia.Performed By: #### CMP #### [address] [place], [place] [address]AJJJwxvewcxBcfnrtSq. [facility] on above:Order Comment: TEST COMPREHENSIVE PANEL WAS CANCELLED, 02/21/2022 14:13 Cancelled per Zofia.Performed By: #### CMP #### [address] [place], [place] [address]AITGUPVUSVASieqqnsiRgxiysTv. [facility] on above:Order Comment: TEST COMPREHENSIVE PANEL WAS CANCELLED, 02/21/2022 14:13 Cancelled per Zofia.Performed By: #### CMP #### [address] [place], [place] [address]SHFYYBYEW,TOTALCanceledNormalSt. [facility]Com[facility] on above:Order Comment: TEST COMPREHENSIVE PANEL WAS CANCELLED, 02/21/2022 14:13 Cancelled per Zofia.Performed By: #### CMP #### [address] [place], [place] [address]SRADXRFRlzxanolGufrdoGt. [facility] on above: Order Comment: TEST COMPREHENSIVE PANEL WAS CANCELLED, 02/21/2022 14:13 Cancelled per Zofia.Performed By: #### CMP #### [address] [place], [place] [address]TXPTJMOZXtfvqhvoBbedstIa. [facility] on above: Order Comment: TEST COMPREHENSIVE PANEL WAS CANCELLED, 02/21/2022 14:13 Cancelled per Zofia.Performed By: #### CMP #### [address] [place], [place] [address]DKFIZRTHOVAyenugboQyekrxYj. [facility] on above:Order Comment: TEST COMPREHENSIVE PANEL WAS CANCELLED, 02/21/2022 14:13 Cancelled per Zofia.Performed By: #### CMP #### [address] [place], [place] [address]dKFU FEMALECanceledNormalSt. [facility] CenterComment on above:Order Comment: TEST COMPREHENSIVE PANEL WAS CANCELLED, 02/21/2022 14:13 Cancelled per Zofia.Result Comment: CALCULATIONS OF ESTIMATED GFR ARE PERFORMED USING THE 2020 CKD-EPI STUDY REFIT EQUATION WITHOUT THE RACE VARIABLE FOR THE IDMS-TRACEABLE CREATININE METHODS. https://jasn.asnjournals.org/content/early/ASN.9878875381Spyrtkpsv By: #### CMP #### [address] [place], [place] [address]pPQU MALECanceledNormalSt. [facility] CenterComment on above:Order Comment: TEST COMPREHENSIVE PANEL WAS CANCELLED, 02/21/2022 14:13 Cancelled per Zofia.Result Comment: CALCULATIONS OF ESTIMATED GFR ARE PERFORMED USING THE 2020 CKD-EPI STUDY REFIT EQUATION WITHOUT THE RACE VARIABLE FOR THE IDMS-TRACEABLE CREATININE METHODS. https://jasn.asnjournals.org/content/earlyASN.1641048319Uregmmtqj By: #### CMP #### [address] [place], [place] [address]NMAEFEEHbbzkjxyOezpigXv. [facility] CenterComment on above: Order Comment: TEST COMPREHENSIVE PANEL WAS CANCELLED, 02/21/2022 14:13 Cancelled per Zofia.Performed By: #### CMP #### [address] [place], [place] [address]QKDKSWZGQIglhjtchOpymrsTz. [facility] CenterComment on above:Order Comment: TEST COMPREHENSIVE PANEL WAS CANCELLED, 02/21/2022 14:13 Cancelled per Zofia.Performed By: #### CMP #### [address] [place], [place] [address]HSFCOKHrombucoVjfjpsSl. [facility] CenterComment on above: Order Comment: TEST COMPREHENSIVE PANEL WAS CANCELLED, 02/21/2022 14:13 Cancelled per Zofia.Performed By: #### CMP #### [address] [place], [place] [address]BATEQ PROTEINCanceledNormalSt. [facility] CenterComment on above:Order Comment: TEST COMPREHENSIVE PANEL WAS CANCELLED, 02/21/2022 14:13 Cancelled per Zofia.Performed By: #### CMP #### [address] [place], [place] [address]EQOO NITROGENCanceledNormalSt. [facility] CenterComment on above:Order Comment: TEST COMPREHENSIVE PANEL WAS CANCELLED, 02/21/2022 14:13 Cancelled per Zofia.Performed By: #### CMP #### [address] [place], [place] [address]HVLtn 30-05-7011VFBAvhbwtfdVxihbbVt. [facility] Comment on above:Order Comment: TEST LDH WAS CANCELLED, 02/21/2022 14:13 Cancelled per Zofia.Performed By: #### LDH #### [facility] [address] [address] [place], [place] [address]KVQ AUTO DIFFon 86-98-9973CHNP #0.0 103/ulNormal0.0-0.1[facility] HospitalComment on above:Performed By: #### CBC #### [facility] [address] [address] [address] Ladan McdonaldBasophils/100 WBC (Bld)0.6 %Normal0.2-2.0[facility] Comment on above:Performed By: #### CBC #### [facility] [address] [address] [address] Ladan Karimi #0.1 103/ulNormal0.0-0.7The [facility]healthComment on above: Performed By: #### CBC #### [facility] [address] [address] [address] Ladan Riveraosinophils/100 WBC (Bld)2.0 %Normal0.9-7.0[facility] Comment on above:Performed By: #### CBC #### [facility] [address] [place] [address] Dr. Ladan Riverarythrocyte distribution width (RBC) [Ratio]15.4 %Critically high 11.0-15.0The [facility]healthComment on above:Performed By: #### CBC #### [facility] [address] [place] [address] Dr. Ladan McdonaldHematocrit (Bld) [Volume fraction]44.7 %Mtiitp85.0-54.0The [facility] HospitalComment on above:Performed By: #### CBC #### [facility] [address] [place] [address] Dr. Ladan McdonaldHemoglobin (Bld) [Mass/Vol]14.3 g/tCIkorxl75.0-18.0The [facility]healthComment on above:Performed By: #### CBC #### [facility] [address] [place] [address] Dr. Ladan Mott #0.02 10e3/ulNormal0.00-0.03The [facility]healthComment on above:Performed By: #### CBC #### [facility] [address] [place] [address] Dr. Ladan Mott %0.6 %Critically high0.0-0.5The [facility]healthComment on above:Performed By: #### CBC #### [facility] [address] [place] [address] Dr. Ladan MeadH #0.9 103/ulCritically low1.2-3.8The [facility] Comment on above:Performed By: #### CBC #### [facility] [address] [place] [address] Dr. Ladan Tavarezmphocytes/100 WBC (Bld)26.6 %Jprlck13.5-60.0The [facility]healthComment on above:Performed By: #### CBC #### [facility] [address] [place] [address] Dr. Ladan MarcusUAL DIFF REQNONormalThe Niki HospitalComment on above: Performed By: #### CBC #### [facility] [address] [place] [address] Dr. Ladan Sher (RBC) [Entitic mass]26.2 jeFuvhpt51.9-34.0The [facility] HospitalComment on above:Performed By: #### CBC #### [facility] [address] [place] [address] Dr. Ladan Sher (RBC) [Mass/Vol]32.0 g/tQEbcvqg56.9-35.2The [facility] HospitalComment on above:Performed By: #### CBC #### [facility] [address] [place] [address] Dr. Ladan Sher (RBC) [Entitic vol]82.0 fZAgftcn27.0-94.0The [facility]healthComment on above:Performed By: #### CBC #### [facility] [address] [place] [address] Dr. Ladan Truong #0.3 103/ulNormal0.3-0.8The [facility]healthComment on above:Performed By: #### CBC #### [facility] [address] [place] [address] Dr. Ladan Barronocytes/100 WBC (Bld)8.9 %Normal1.7-12.0The [facility] Comment on above:Performed By: #### CBC #### [facility] [address] [place] [address] Dr. Ladan Almazan #2.2 103/ulNormal1.4-6.5The [facility]healthComment on above:Performed By: #### CBC #### [facility] [address] [place] [address] Dr. Ladan Cruzutrophils/100 WBC (Bld)61.3 %Bhjvrn52.0-75.0The [facility]healthComment on above:Performed By: #### CBC #### [facility] [address] [place] [address] Dr. Ladan Bushlet mean volume (Bld) [Entitic vol]9.7 fLNormal9.5-13.5The [facility]healthComment on above:Performed By: #### CBC #### [facility] [address] [place] [address] Dr. Ladan McdonaldPLT115 103/ulCritically raj763-428Xfg OhiohealthComment on above:Performed By: #### CBC #### [facility] [address] [place] [address] Dr. Ladan McdonaldRBC5.45 106/ulNormal4.70-6.10The [facility]healthComment on above:Performed By: #### CBC #### [facility] [address] [place] [address] Dr. Ladan McdonaldWBC3.5 103/ulCritically low4.0-11.0The [facility] on above:Performed By: #### CBC #### [facility] [address] [place] [address] Dr. Ladan White 14(COMP METB)on 42-63-8631Cclhccv [Mass/Vol]3.7 g/dLNormal 3.4-5.0[facility] HospitalComment on above:Performed By: #### MG, LDH, CMP #### [facility] [address] [place] [address] Dr. Ladan McdonaldAlbumin/Globulin [Mass ratio]1.1 {ratio}NormalThe [facility] on above:Performed By: #### MG, LDH, CMP #### [facility] [address] [place] [address] Dr. Ladan Peraza [Catalytic activity/Vol]121 U/LCritically xyrx26-773Wlv [facility]healthComment on above:Performed By: #### MG, LDH, CMP #### [facility] [address] [place] [address] Dr. Ladan French [Catalytic activity/Vol]55 U/PKelbct52-96Zme [facility]healthComment on above:Performed By: #### MG, LDH, CMP #### [facility] [address] [place] [address] Dr. Ladan Hernandez gap [Moles/Vol]11.7 mmol/LNormalOhiohealth [facility] Hospital Comment on above:Performed By: #### MG, LDH, CMP #### [facility] [address] [address] [address] Ladan McdonaldAST [Catalytic activity/Vol]40 U/LCritically lwkw21-79Jdy [facility]healthComment on above:Performed By: #### MG, LDH, CMP #### [facility] [address] [address] [address] Ladan McdonaldBilirubin [Mass/Vol]0.5 mg/dLNormal0.2-1.0[facility] Comment on above:Performed By: #### MG, LDH, CMP #### [facility] [address] [address] [address] Ladan McdonaldCalcium [Mass/Vol]9.2 mg/dLNormal8.5-10.1[facility] Comment on above:Performed By: #### MG, LDH, CMP #### [facility] [address] [address] [address] Ladan McdonaldChloride [Moles/Vol]107 mmol/HMgclod08-022CchOhiohealth Dublin Methodist Hospital Comment on above:Performed By: #### MG, LDH, CMP #### [facility] [address] [address] [address] Ladan McdonaldCO2 [Moles/Vol]28.3 mmol/USrfjsu44.0-32.0[facility] Comment on above:Performed By: #### MG, LDH, CMP #### [facility] [address] [address] [address] Ladan McdonaldCreatinine [Mass/Vol]1.97 mg/dLCritically high0.70-1.30The [facility]healthComment on above:Performed By: #### MG, LDH, CMP #### [facility] [address] [address] [address] Pickering ChangEGFR-AF HXROYBOG66 mL/min/1.96b4Gathowhdsn low>=60The [facility]healthComment on above:Performed By: #### MG, LDH, CMP #### [facility] [address] [place] [address] Dr. Ladan RiveraGFR-NON AF JZQPXBAJ86 mL/min/1.79r5Xtyfuyzkqu low>=60The OhiohealthComment on above:Performed By: #### MG, LDH, CMP #### [facility] [address] [place] [address] Dr. Ladan McdonaldGlobulin (S) [Mass/Vol]3.5 g/dLNormalThe OhiohealthComment on above:Performed By: #### MG, LDH, CMP #### [facility] [address] [place] [address] Dr. Ladan McdonaldGlucose [Mass/Vol]114 mg/dLCritically yuiw22-347Pyg OhiohealthComment on above:Performed By: #### MG, LDH, CMP #### [facility] [address] [place] [address] Dr. Ladan McdonaldPotassium [Moles/Vol]4.0 mmol/LNormal3.5-5.1The [facility] Comment on above:Performed By: #### MG, LDH, CMP #### [facility] [address] [place] [address] Dr. Ladan McdonaldProtein [Mass/Vol]7.2 g/dLNormal6.4-8.2The [facility] Comment on above:Performed By: #### MG, LDH, CMP #### [facility] [address] [place] [address] Dr. Ladan McdonaldSodium [Moles/Vol]143 mmol/NAwesuy507-195Whh [facility] Comment on above:Performed By: #### MG, LDH, CMP #### [facility] [address] [place] [address] Dr. Ladan McdonaldUrea nitrogen [Mass/Vol]26.0 mg/dLCritically high7.0-18.0The OhiohealthComment on above:Performed By: #### MG, LDH, CMP #### [facility] [address] [place] [address] Dr. Ladan McdonaldUrea nitrogen/Creatinine [Mass ratio]13.2 mg/mgNoMedina HospitalComment on above:Performed By: #### MG, LDH, CMP #### [facility] [address] [address] [address] Ladan McdonaldCBC AND DIFFERENTIALon 11-14-2021% AUTOMATED IMMATURE GRAN1.2 % High0.0 - 0.9St. [facility] CenterComment on above:Result Comment: Immature Granulocyte Count (IG) includes promyelocytes, myelocytes and metamyelocytes but does not include bands. Percent differential counts (%) should be interpreted in the context of the absolute cell counts (cells/L).Performed By: #### CBCDF #### [address] [address]Ytuftrqig (Bld) [#/Vol]0.01 10*3/uLNormal0.00 - 0.10St. [facility] CenterComment on above:Performed By: #### CBCDF #### [address] [address]Wdyslffsf/100 WBC (Bld)0.2 %Normal0.0 - 2.0St. [facility] CenterComment on above:Performed By: #### CBCDF #### [address] [address]Dhlbdtncbfa (Bld) [#/Vol]0.04 10*3/uLNormal0.00 - 0.70St. [facility] CenterComment on above:Performed By: #### CBCDF #### [address] [address]Oihdibbzctf/100 WBC (Bld)1.0 %Normal0.0 - 6.0St. [facility] CenterComment on above:Performed By: #### CBCDF #### [address] [address]Rwsahwnegal distribution width (RBC) [Ratio]15.0 %High11.5 - 14.5St. [facility] CenterComment on above:Performed By: #### CBCDF #### [address] [place], [place] [address]Doqnsaifsr (Bld) [Volume fraction]48.2 %Wmrkku12.0 - 52.0St[facility] CenterComment on above:Performed By: #### CBCDF #### [address] [place], [place] [address]Ldopdlksfr (Bld) [Mass/Vol]14.9 g/jFAnxmei96.5 - 17.5St. [facility] CenterComment on above:Performed By: #### CBCDF #### [address] [place], [place] [address]Xylbsfdpuci (Bld) [#/Vol]1.26 10*3/uLNormal1.20 - 4.80St. [facility] CenterComment on above:Performed By: #### CBCDF #### [address] [place], [place] [address]Urfmesghxuk/100 WBC (Bld)30.2 %Njcdxl72.0 - 44.0St[facility] CenterComment on above:Performed By: #### CBCDF #### [address] [place], [place] [address]CDRT (RBC) [Mass/Vol]30.9 g/dLLow32.0 - 36.0St[facility] CenterComment on above:Performed By: #### CBCDF #### [address] [place], [place] [address]RAK (RBC) [Entitic vol]84 sZFytzwt51 - 100St. [facility] CenterComment on above:Performed By: #### CBCDF #### [address] [place], [place] [address]Bmqetsgka (Bld) [#/Vol]0.36 10*3/uLNormal0.10 - 1.00St. [facility] CenterComment on above:Performed By: #### CBCDF #### [address] [place], [place] [address]Iekjutilv/100 WBC (Bld)8.6 %Normal2.0 - 10.0St[facility] CenterComment on above:Performed By: #### CBCDF #### [address] [place], [place] [address]Iaaoqehrvwl (Bld) [#/Vol]2.45 10*3/uLNormal1.20 - 7.70St[facility] CenterComment on above:Performed By: #### CBCDF #### [address] [place], [place] [address]Ffvoxtaavvb/100 WBC (Bld)58.8 %Xzczcc27.0 - 80.0St[facility] CenterComment on above:Performed By: #### CBCDF #### [address] [place], [place] [address]VDHFJQAOO RBC0.0 /100 WBCNormal0.0 - 0.0St. [facility] CenterComment on above:Performed By: #### CBCDF #### [address] [place], [place] [address]Oqjrpqdim (Bld) [#/Vol]138 10*3/dISxd225 - 450St. [facility] CenterComment on above:Performed By: #### CBCDF #### [address] [address]XLU2.71 x10E12/LNormal4.50 - 5.90[facility] Comment on above:Performed By: #### CBCDF #### [address] [place], [place] [address]SOJ (Bld) [#/Vol]4.2 10*3/uLLow4.4 - 11.3St[facility] CenterComment on above:Performed By: #### CBCDF #### [address] [place], [place] [address]CKSSZUAHONNMS PANELon 13-60-6585Kihxrkg [Mass/Vol]4.3 g/dL Normal3.4 - 5.0St. [facility] CenterComment on above:Performed By: #### CMP #### [address] [place], [place] [address]NXE [Catalytic activity/Vol]89 U/TUskbbt30 - 136St. [facility] CenterComment on above:Performed By: #### CMP #### [address] [place], [place] [address]QIU [Catalytic activity/Vol]43 U/AAxjhwy22 - 52St. [facility] CenterComment on above:Result Comment: Patients treated with Sulfasalazine may generate falsely decreased results for ALT.Performed By: #### CMP #### [address] [place], [place] [address]Bcsgd gap [Moles/Vol]11 mmol/OCtgnwq72 - 20St. [facility] CenterComment on above:Performed By: #### CMP #### [address] [place], [place] [address]UBL [Catalytic activity/Vol]31 U/LNormal9 - 39St. [facility] CenterComment on above:Performed By: #### CMP #### [address] [place], [place] [address]Tzeumxxuz [Mass/Vol]0.7 mg/dLNormal0.0 - 1.2St. [facility] CenterComment on above:Performed By: #### CMP #### [address] [place], [place] [address]Xhhwixw [Mass/Vol]9.5 mg/dLNormal8.6 - 10.3St. [facility] CenterComment on above:Performed By: #### CMP #### [address] [place], [place] [address]Czdmnfrw [Moles/Vol]105 mmol/IZsiars93 - 107St. [facility] CenterComment on above:Performed By: #### CMP #### [address] [place], [place] [address]Vusxbsvbzg [Mass/Vol]1.76 mg/dLHigh0.50 - 1.30St. [facility] CenterComment on above:Performed By: #### CMP #### [address] [place], [place] [address]FEV/1.73 sq M.predicted among non-blacks MDRD (S/P/Bld) [Vol rate/Area]43 mL/min/{1.73_m2}Abnormal>90St. [facility] CenterComment on above: Result Comment: CALCULATIONS OF ESTIMATED GFR ARE PERFORMED USING THE 2020 CKD-EPI STUDY REFIT EQUATION WITHOUT THE RACE VARIABLE FOR THE IDMS-TRACEABLE CREATININE METHODS. https://jasn.asnjournals.org/content/early//ASN.4490107272Akqtjjiui By: #### CMP #### [address] [place], [place] [address]Ruzedbl [Mass/Vol]117 mg/nULqdz37 - 99[facility] Comment on above:Performed By: #### CMP #### [address] [place], [place] [address]PUY3 (Bld) [Moles/Vol]27 mmol/RGixuzu81 - 32St. [facility] CenterComment on above:Performed By: #### CMP #### [address] [place], [place] [address]Abkzpcbwn [Moles/Vol]4.3 mmol/LNormal3.5 - 5.3St. [facility] CenterComment on above:Performed By: #### CMP #### [address] [place], [place] [address]Rnmzfxw [Mass/Vol]7.0 g/dLNormal6.4 - 8.2St. [facility] CenterComment on above:Performed By: #### CMP #### [address] [place], [place] [address]Pptldl [Moles/Vol]139 mmol/ZNcalcn099 - 145St. [facility] CenterComment on above:Performed By: #### CMP #### [address] [place], [place] [address]Auij nitrogen [Mass/Vol]23 mg/dLNormal6 - 23St. [facility] CenterComment on above:Performed By: #### CMP #### [address] 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 COMPARISON: CT chest 06/13/2020; CT abdomen pelvis dated 01/02/2019 ACCESSION NUMBER(S): [id number] ORDERING CLINICIAN: ANIRUDH SEARS TECHNIQUE: CT of [...] the spleen. Electronically signed by: Amanda STEEN. [facility] CenterCT SINUS W CONTRASTon 11-64-6249OW SINUS W CONTRASTMRN: [id number] Patient Name: KATERINA DANIELLE STUDY: CT NECK WITH CONTRAST; CT SINUS W CONTRAST; 11/14/2021 10:51 am INDICATION: HX DLBCL new sinus symptoms, same location as prior occurence 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 COMPARISON: June 2018. ACCESSION NUMBER(S): [id number]; [id number] ORDERING CLINICIAN: ANIRUDH SEARS TECHNIQUE: Following intravenous [...] the neck. [place]AM[place] [facility] [place] signed by: Amanda WEST. [facility] CenterNR CT NECK WITH CONTRASTon 17-08-1458WG CT NECK WITH CONTRASTMRN: [id number] Patient Name: KATERINA DANIELLE STUDY: CT NECK WITH CONTRAST; CT SINUS W CONTRAST; 11/14/2021 10:51 am INDICATION: HX DLBCL new sinus symptoms, same location as prior occurence 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 COMPARISON: June 2018. ACCESSION NUMBER(S): [id number]; [id number] ORDERING CLINICIAN: ANIRUDH SEARS TECHNIQUE: Following intravenous [...] the neck. [place]AMIN[place] [facility] [place]ically signed by: Amanda WEST. [facility] Medical CenterTobacco Screening.on 89-18-0790Ncqr risk assessmenta) No falls within the last yearMP-[facility] 3 DO Work Phone: Tobacco use status CPHSb) NoMP-[facility] [place] 3 DO Work Phone: Complete Blood Count + Differentialon 05-21-2021 Basophils/100 WBC (Bld)0.5 %0.0 - 2.1EV-Odsddosdmg-Wacwerps 2100 DO Work Phone: [phone] distribution width (RBC) [Ratio]15.6 % above high thresholdSee CobpeFZ-Qzxugxogns-Fskpvwhu 2100 DO Work Phone: Comment on above:Reference Range: 11.5 - 14.5 Hematocrit (Bld) [Volume fraction]46.6 %See FhshzOV-Drtjgsbwje-Mpnshpwn 2100 DO Work Phone: [phone] on above:Reference Range: 41.0 - 52.0 Hemoglobin (Bld) [Mass/Vol]14.8 g/dLSee EywlyLT-Bkkgitgykg-Wxtpnzvb 2100 DO Work Phone: [phone] on above:Reference Range: 13.5 - 17.5 Lymphocytes/100 WBC (Bld)27.6 %See LwlzyTD-Gaaiieeqsu-Tejdpikd 2100 DO Work Phone: Comment on above:Reference Range: 13.0 - 44.0MCHC (RBC) [Mass/Vol]31.8 g/dLbelow low thresholdSee OuphpUG-Dyymszlxgs-Lmztpfcb 2100 DO Work Phone: Comment on above:Reference Range: 32.0 - 36.0MCV (RBC) [Entitic vol]87 fL80 - 240TQ-Yakkqqssog-Vnhcmvsf 2100 DO Work Phone: [phone]/100 WBC (Bld)6.7 %2.0 - 10.0 RQ-Tgzimvpwgm-Nkztmslw 2100 DO Work Phone: [phone]/100 WBC (Bld)62.6 %See Below KP-Sdjonrqsit-Gxwskizs 2100 DO Work Phone: Comment on above:Reference Range: 40.0 - 80.0Platelets (Bld) [#/Vol]138 10*3/uLbelow low hdgcdslyr915 - 006HO-Uiyeyjnvhk-Ctwdokpu 2099 DO Work Phone: RBC (Bld) [#/Vol]5.37 {x10E12/L}See Below KV-Bojewhqakf-Cbxwqkxc 2099 DO Work Phone: Comment on above:Reference Range: 4.50 - 5.90WBC (Bld) [#/Vol]4.2 10*3/uLbelow low threshold4.4 - 11.0ZO-Zmvdvwspbd-Fureypxz 2099 DO Work Phone: Complete Blood Count + Differential0.02 {x10E9/L}See ThzpxPW-Mfxbqehfir-Cgqznosu 2099 DO Work Phone: Comment on above:Reference Range: 0.00 - 0.10Complete Blood Count + Differential0.08 {x10E9/L}See QeiqrSY-Yqngnmucnl-Johvyycd 2099 DO Work Phone: Comment on above:Reference Range: 0.00 - 0.70Complete Blood Count + Differential0.28 {x10E9/L}See GbyjcAZ-Bpzklxgwrm-Tjqrjgao 2100 DO Work Phone: Comment on above:Reference Range: 0.10 - 1.00Complete Blood Count + Differential1.15 {x10E9/L}below low thresholdSee Below AG-Pcqstwcrok-Nkhciqgw 2099 DO Work Phone: Comment on above:Reference Range: 1.20 - 4.80Complete Blood Count + Differential2.60 {x10E9/L}See WhyauGZ-Qxfmhiooio-Lalksdlv 2100 DO Work Phone: Comment on above:Reference Range: 1.20 - 7.70Complete Blood Count + Differential1.9 %0.0 - 6.9EM-Zhlhjenpic-Dlrdwund 2099 DO Work Phone: Complete Blood Count + Differential0.7 %0.0 - 0.9 TM-Jfkpommrtz-Zgvtwyoy 2099 DO Work Phone: Comment on above:Immature Granulocyte Count (IG) includes promyelocytes, myelocytes and metamyelocytes but does not include bands. Percent differential counts (%) should be interpreted in the context of the absolute cell counts (cells/L).Immunoglobulin G Level, Serumon 95-51-9506SfS [Mass/Vol]1100 mg/dL700 - 5882PM-Csyypkgfms-Ykeftnaw 2099 DO Work Phone: Comment on above:MONOCLONAL PROTEINS MAY CAUSE FALSELY LOWRESULTS IN THIS ASSAY. SERUM PROTEINELECTROPHORESIS SHOULDBE DONE THEFIRST TEST TO EVALUATE MONOCLONAL GAMMOPATHY.Laboratory - Chemistry and Chemistry - challengeon 28-75-5011Puxmchp BCP dye [Mass/Vol]4.2 g/dL3.4 - 5.0 LR-Jqjfwhohar-Rksguwcv 2099 DO Work Phone: ALP [Catalytic activity/Vol]86 U/L33 - 136 KA-Mlxeguhubq-Cfobqjcx 2099 DO Work Phone: ALT With P-5'-P [Catalytic activity/Vol]32 U/L10 - 52 ME-Ttmzcjypau-Lmkriwfq 2099 DO Work Phone: Comment on above:Patients treated with Sulfasalazine may generate falsely decreased results for ALT.Anion gap [Moles/Vol]11 mmol/L10 - 04QC-Tppvujvwbr-Uwccbigb 2099 DO Work Phone: AST With P-5'-P [Catalytic activity/Vol]28 U/L9 - 39 RC-Egpjypllmn-Cymzrbuu 2100 DO Work Phone: Bilirubin [Mass/Vol]0.6 mg/dL0.0 - 1.2 KV-Iyzstuhbbq-Kpvxfyik 2100 DO Work Phone: Calcium [Mass/Vol]9.2 mg/dL8.6 - 10.3 GR-Iewqhwgphd-Uofpovbn 2100 DO Work Phone: Chloride [Moles/Vol]107 mmol/L98 - 107 BW-Lbqdcbmivd-Gozxxcsk 2100 DO Work Phone: IK6 [Moles/Vol]27 mmol/L21 - 69EJ-Htfyqrbdno-Qidbvkjp 2100 DO Work Phone: Creatinine [Mass/Vol]1.77 mg/dLabove high thresholdSee GjjvzHI-Rxkpvmocvi-Jfrmqqux 2100 DO Work Phone: Comment on above:Reference Range: 0.50 - 1.30Glucose [Mass/Vol]99 mg/dL74 - 16AC-Gvmswwdelt-Hcoekxoh 2099 DO Work Phone: Potassium [Moles/Vol]4.5 mmol/L3.5 - 5.3 WH-Jzcrvztomf-Cyxcpeva 2100 DO Work Phone: Protein [Mass/Vol]7.0 g/dL6.4 - 8.2 PR-Qrdmewvicn-Ugdombwm 2100 DO Work Phone: Sodium [Moles/Vol]140 mmol/L136 - 145 ZG-Ngkkjtxeqd-Ogoxburk 2100 DO Work Phone: Urea nitrogen [Mass/Vol]22 mg/dL6 - 23 TG-Jvxvnqpair-Qtmuwnjz 2100 DO Work Phone: No Panel Informationon [id number] {mL/min/1.73m2} Abnormal>56MG-Kiipnmbixq-Urtvyqsw 2100 DO Work Phone: Comment on above:CALCULATIONS OF ESTIMATED GFR ARE PERFORMED USING THE MDRD STUDY EQUATION FOR THE IDMS-TRACEABLE CREATININE METHODS. CLIN CHEM 2007;53:766-7239 {mL/min/1.73m2}Abnormal>60 [place]-Njhbdhardj-Tqmwjbqq 2100 DO Work Phone: CBC AND DIFFERENTIALon 01-21-2020% AUTOMATED IMMATURE GRAN1.9 %High0.0 - 0.9[facility]S Medical CenterComment on above:Result Comment: Immature Granulocyte Count (IG) includes promyelocytes, myelocytes and metamyelocytes but does not include bands. Percent differential counts (%) should be interpreted in the context of the absolute cell counts (cells/L).Performed By: #### CBCDF #### [address] [address]Wykoozant (Bld) [#/Vol]0.02 10*3/uLNormal0.00 - 0.10[facility]'S Medical CenterComment on above:Performed By: #### CBCDF #### [address] [address]Vmgrrrznc/100 WBC (Bld)0.5 %Normal0.0 - 2.0[facility] Medical CenterComment on above:Performed By: #### CBCDF #### [address] [address]Rhwtgheiwjm (Bld) [#/Vol]0.25 10*3/uLNormal0.00 - 0.70[facility]S Medical CenterComment on above:Performed By: #### CBCDF #### [address] [address]Tlyiozfgnzw/100 WBC (Bld)6.0 %Normal0.0 - 6.0[facility] of AuroraComment on above:Performed By: #### CBCDF #### [address] [address]Lajwvwbqazs distribution width (RBC) [Ratio]14.2 %Cdkduk41.5 - 14.5[facility] AuroraComment on above:Performed By: #### CBCDF #### [address] [address]Ainirvamkp (Bld) [Volume fraction]46.7 %Zuxdio63.0 - 52.0[facility] AuroraComment on above:Performed By: #### CBCDF #### [address] [address]Wyactxjyve (Bld) [Mass/Vol]14.8 g/dABgurve69.5 - 17.5[facility]S Medical CenterComment on above:Performed By: #### CBCDF #### [address] [address]Egvseepcbll (Bld) [#/Vol]1.10 10*3/uLLow1.20 - 4.80[facility] AuroraComment on above:Performed By: #### CBCDF #### [address] [address]Zthzqsrogzq/100 WBC (Bld)26.6 %Trmowq84.0 - 44.0[facility] AuroraComment on above:Performed By: #### CBCDF #### [address] [address]HCAM (RBC) [Mass/Vol]31.7 g/dLLow32.0 - 36.0[facility] AuroraComment on above:Performed By: #### CBCDF #### [address] [address]PLM (RBC) [Entitic vol]85 zYSoavih54 - 100[facility] AuroraComment on above:Performed By: #### CBCDF #### [address] [address]Aoztgfidw (Bld) [#/Vol]0.48 10*3/uLNormal0.10 - 1.00[facility] AuroraComment on above:Performed By: #### CBCDF #### [address] [address]Saczcjavp/100 WBC (Bld)11.6 %Normal2.0 - 10.0[facility] AuroraComment on above:Performed By: #### CBCDF #### [address] [address]Njbzmfugmwh (Bld) [#/Vol]2.21 10*3/uLNormal1.20 - 7.70[facility] AuroraComment on above:Performed By: #### CBCDF #### [address] [address]Dkjvlrjiuem/100 WBC (Bld)53.4 %Fgalou33.0 - 80.0[facility] AuroraComment on above:Performed By: #### CBCDF #### [address] [address]Eubgaavgc (Bld) [#/Vol]122 10*3/nDSnh975 - 450[facility] Medical CenterComment on above:Performed By: #### CBCDF #### [address] [address]SHZ (Bld) [#/Vol]5.47 x10E12/LNormal4.50 - 5.90[facility] Medical CenterComment on above:Performed By: #### CBCDF #### [address] [address]VIM (Bld) [#/Vol]4.1 10*3/uLLow4.4 - 11.3[facility]S Medical CenterComment on above:Performed By: #### CBCDF #### [address] [address]ATBYJBTJHXORU PANELon 49-15-2027Enwevgq [Mass/Vol]4.7 g/dLNormal 3.4 - 5.0[facility]S Medical CenterComment on above:Performed By: #### PHOS #### [address] [address]DAM [Catalytic activity/Vol]186 U/LHigh33 - 120[facility]S Medical CenterComment on above:Performed By: #### PHOS #### [address] [address]BIB [Catalytic activity/Vol]46 U/TSudlvm82 - 52[facility] Medical CenterComment on above:Result Comment: Patients treated with Sulfasalazine may generate falsely decreased results for ALT.Performed By: #### PHOS #### [address] [address]Gelxh gap [Moles/Vol]11 mmol/MNhpxkw28 - 20[facility] Medical CenterComment on above:Performed By: #### PHOS #### [address] [address]MZB [Catalytic activity/Vol]30 U/LNormal9 - 39[facility] AuroraComment on above:Performed By: #### PHOS #### [address] [address]Cqcwgrzat [Mass/Vol]0.6 mg/dLNormal0.0 - 1.2[facility] AuroraComment on above:Performed By: #### PHOS #### [address] [address]Jhstatj [Mass/Vol]9.2 mg/dLNormal8.6 - 10.3[facility] AuroraComment on above:Performed By: #### PHOS #### [address] [address]Xuldubxi [Moles/Vol]106 mmol/KGhlwtm94 - 107[facility] AuroraComment on above:Performed By: #### PHOS #### [address] [address]Wzbditdzqq [Mass/Vol]1.90 mg/dLHigh0.50 - 1.30[facility] AuroraComment on above:Performed By: #### PHOS #### [address] [address]EAN-NWPAYAG AM.44 mL/min/1.13v7Znpylqjr>60[facility] AuroraComment on above:Result Comment: CALCULATIONS OF ESTIMATED GFR ARE PERFORMED USING THE MDRD STUDY EQUATION FOR THE IDMS-TRACEABLE CREATININE METHODS. CLIN CHEM 2007;53:766-72Performed By: #### PHOS #### [address] [address]CRG-GMR AM.36 mL/min/1.43y2Ddlcsbkh>60[facility] AuroraComment on above:Performed By: #### PHOS #### [address] [address]Lilrtnf [Mass/Vol]62 mg/dLLow74 - 99[facility] Comment on above:Performed By: #### PHOS #### [address] [address]CTQ3 (Bld) [Moles/Vol]29 mmol/QVqrdiq04 - 32[facility] AuroraComment on above:Performed By: #### PHOS #### [address] [address]Emuwbatzc [Moles/Vol]4.1 mmol/LNormal3.5 - 5.3[facility] AuroraComment on above:Performed By: #### PHOS #### [address] [address]Yartkrv [Mass/Vol]6.5 g/dLNormal6.4 - 8.2[facility] AuroraComment on above:Performed By: #### PHOS #### [address] [address]Zvdesv [Moles/Vol]142 mmol/PExucrh903 - 145[facility] AuroraComment on above:Performed By: #### PHOS #### [address] [address]Canw nitrogen [Mass/Vol]23 mg/dLNormal6 - 23[facility] AuroraComment on above:Performed By: #### PHOS #### [address] [address]ZQNan 71-88-8820RPZ231 U/AMofbzb96 - 246[facility] Comment on above:Performed By: #### PHOS #### [address] [address]HXPDDNFJWHV HORMONE,INTACTon 23-07-1892TBOTMVFBBPJ HORMONE,VCVWMW347.7 pg/tBMhdd18.5 - 88.0[facility] Medical CenterComment on above:Result Comment: Patients receiving more than 5 mg/day of biotin may have interference in test results. A sample should be taken no sooner than eight hours after previous dose. Contact the testing laboratory for additional information.Performed By: #### PHOS #### [address] [address]NMNJDXTCWBtm 99-85-7144Uenwoqigo [Mass/Vol]2.8 mg/dLNormal2.5 - 4.9[facility] AuroraComment on above:Result Comment: The performance characteristics of phosphorus testing in heparinized plasma have been validated by the individual laboratory site where testing is performed. Testing on heparinized plasma is not approved by the FDA; however, such approval is not necessary.Performed By: #### PHOS #### [address] [address]OJSD ACIDon 21-92-6563Yduqm [Mass/Vol]5.9 mg/dLNormal4.0 - 7.5[facility] AuroraComment on above:Result Comment: Venipuncture immediately after or during the administration of Metamizole may lead to falsely low results. Testing should be performed immediately prior to Metamizole dosing.Performed By: #### PHOS #### [address] [address]PCTYE METABOLIC PANELon 18-96-3874Jwlxw gap [Moles/Vol]11 mmol/L Oowzmn36 - 20[facility] AuroraComment on above:Performed By: #### BMP #### [address] [address]Rgdtkml [Mass/Vol]9.0 mg/dLNormal8.6 - 10.3[facility] AuroraComment on above:Performed By: #### BMP #### [address] [address]Zjiukujj [Moles/Vol]109 mmol/LHigh98 - 107[facility] AuroraComment on above:Performed By: #### BMP #### [address] [address]Lglcraroxb [Mass/Vol]1.92 mg/dLHigh0.50 - 1.30[facility] AuroraComment on above:Performed By: #### BMP #### [address] [address]FCG-ITLHGHY AM.44 mL/min/1.07c7Vwvvbbxc>60[facility] CenterComment on above:Result Comment: CALCULATIONS OF ESTIMATED GFR ARE PERFORMED USING THE MDRD STUDY EQUATION FOR THE IDMS-TRACEABLE CREATININE METHODS. CLIN CHEM 2007;53:766-72Performed By: #### BMP #### [address] [address]EAH-CLG AM.36 mL/min/1.74z1Fsqezjxu>60[facility] CenterComment on above:Performed By: #### BMP #### [address] [address]Qqitkck [Mass/Vol]64 mg/dLLow74 - 99[facility] Comment on above:Performed By: #### BMP #### [address] [address]WBZ0 (Bld) [Moles/Vol]27 mmol/KUszrgm14 - 32[facility] CenterComment on above:Performed By: #### BMP #### [address] [address]Nhkfannmc [Moles/Vol]4.1 mmol/LNormal3.5 - 5.3[facility] CenterComment on above:Performed By: #### BMP #### [address] [address]Zqbbmj [Moles/Vol]143 mmol/VRpbmxk499 - 145[facility] CenterComment on above:Performed By: #### BMP #### [address] [address]Ffnt nitrogen [Mass/Vol]27 mg/dLHigh6 - 23[facility] CenterComment on above:Performed By: #### BMP #### [address] [address]Sslcxmmgn Panelon 84-17-2825Jylza gap [Moles/Vol]11 mmol/L10 - 91[facility]epjbg-[facility] Work Phone: calcium [Mass/Vol]9.0 mg/dL8.6 - 10.3 YK-Iqrqaxmtlq-ZzfczfbTrinity Hospital Work Phone: Chloride [Moles/Vol]109 mmol/Labove high dujlweqwd18 - 058PQ-Zhiyhssxky-QfxwzbkSan[facility] Work Phone: MT8 [Moles/Vol]27 mmol/L21 - 37TZ-Zcdbxfdhye-MnobxjzSanford [facility] Work Phone: [phone] [Mass/Vol]1.92 mg/dLabove high thresholdSee OgzrbAF-Vnajrjypgv-QeptgruSanford South University Medical Center Work Phone: Comment on above:Reference Range: 0.50 - 1.30Glucose [Mass/Vol]64 mg/dLbelow low olgusryyg79 - 28LM-Gznumorxid-NickcejSanford South University Medical Center Work Phone: [phone] [Moles/Vol]4.1 mmol/L3.5 - 5.3 BJ-Flebaeoyya-NhhvjoaSanford South University Medical [facility] Work Phone: [phone] [Moles/Vol]143 mmol/L136 - 145 AB-Vvugyexymt-IqmysnpSanford South University [facility] Work Phone: [phone] nitrogen [Mass/Vol]27 mg/dLabove high threshold6 - 52YC-Beaspvhdsk-YerscgsSanford South University [facility] Center Work Phone: [phone] 71-31-6562Cbgormvipvi by: TUYIZA15/27/19 14:38MRN: [id number] Name: KATERINA DANIELLE STUDY: RENAL BILAT;07/27/2019 2:41 pm INDICATION:CKD, Essential (primary) [...] or obstructing stonesElectronically signed by: CHELSEA 07/28/19 14:30DbozskBE-Dwmnyyppqi-KrbqizjSanford South University Medical Center Work Phone: [phone] {mL/min/1.73m2}Abnormal>19ND-Edwshqqtnm-JqdzncvSanford South University [facility] Center Work Phone: comment on above:CALCULATIONS OF ESTIMATED GFR ARE PERFORMED USING THE MDRD STUDY EQUATION FOR THE IDMS-TRACEABLE CREATININE METHODS. CLIN CHEM 2007;53:766-7236 {mL/min/1.73m2}Abnormal>60 IS-Vkpzbjekil-CjwboetSanford South University Medical Center Work Phone: please click on the link to view the study images GatluoZK-Gfgidahotn-FbsipxlSt. [facility]'S [facility] Work Phone: pARATHYROID HORMONE,INTACTon 62-73-2935YDWINJPWIEE HORMONE,PQWERH713.6 pg/sYKxlq32.5 - 88.0[facility] AuroraComment on above:Result Comment: Patients receiving more than 5 mg/day of biotin may have interference in test results. A sample should be taken no sooner than eight hours after previous dose. Contact the testing laboratory for additional information.Performed By: #### PTH #### [address] [address]AYVMIBWPXCml 75-41-2224Xwwahoyvi [Mass/Vol]2.7 mg/dLNormal2.5 - 4.9The [facility] AuroraComment on above:Result Comment: The performance characteristics of phosphorus testing in heparinized plasma have been validated by the individual laboratory site where testing is performed. Testing on heparinized plasma is not approved by the FDA; however, such approval is not necessary.Performed By: #### PHOS #### [address] [address]Pnzpfzhjsfhr Intact, Serumon 31-11-8964Fpmxgxmepw.intact [Mass/Vol]117.6 pg/mLabove high thresholdSee IxeuwFS-Qkgncyjbdb-QwreyxrSt. Joseph'S Hospital Work Phone: comment on above:Reference Range: 18.5 - 88.0 Patients receiving more than 5 mg/day of biotin may have interference in test results. A sample should be taken no sooner than eight hours after previous dose. Contact the testing laboratory for additional information.Phosphorus, Serumon 07-27-2019 Phosphate [Mass/Vol]2.7 mg/dL2.5 - 4.0UD-Oibzyfearr-DntjsvaSanford South University Medical Center Work Phone: comment on above:The performance characteristics of phosphorus testing in heparinized plasma have been validated by the individual laboratory site where testing is performed. Testing on heparinized plasma is not approved by the FDA; however, such approval is not necessary.TOTAL PROTEIN, URINE SPOTon 97-08-9597AOIUIFNYBX,JKMGA491.0 mg/mGThmkse85.0 - 370.0[facility]'S Medical CenterComment on above:Performed By: #### TPS2 #### [address] [address]Y. PROTEIN/CREAT RATIO0.37 mg/mg CreatHigh0.00 - 0.17[facility]'S Medical CenterComment on above:Performed By: #### TPS2 #### [address] [address]AXASK PROT,URINE SPOT61 mg/dLHigh5 - 25[facility] Comment on above:Performed By: #### TPS2 #### [address] [address]Ljqma Protein, Urine Spoton 86-73-0655Gecvurchxh (U) [Mass/Vol] 167.0 mg/dLSee PvisrTU-Rbskoziqvn-XrovakgSanford South University Medical Center Work Phone: comment on above:Reference Range: 20.0 - 370.0 Protein/Creatinine (U) [Ratio]0.37 {mg/mg_Creat}above high thresholdSee Below NH-Newdzgegee-WnsstyiSanford South University Medical Center Work Phone: comment on above:Reference Range: 0.00 - 0.17Total Protein, Urine Spot61 mg/dLabove high threshold5 - 73XX-Aitofywvfv-YdrbrjnSt. Joseph'S Hospital Work Phone: UA MICROSCOPICon 89-39-5205LVXRU3+ /LPFNormalUH [facility]'S Medical CenterComment on above:Performed By: #### UAMIC #### [address] [address]YKV6 /HPFNormal0-5The [facility] Center [facility] AuroraComment on above: Performed By: #### UAMIC #### [address] [address]PWK7 /HPFNormal0-5The [facility] AuroraComment on above: Performed By: #### UAMIC #### [address] [address]XPIO ACIDon 33-22-2733Iocik [Mass/Vol]5.8 mg/dLNormal4.0 - 7.5[facility] AuroraComment on above:Result Comment: Venipuncture immediately after or during the administration of Metamizole may lead to falsely low results. Testing should be performed immediately prior to Metamizole dosing.Performed By: #### URIC #### [address] [address]VLOQUEOZIKon 99-80-8507Xjkrnpesqp (U)CLEARNormalCLEARThe Medical Center of AuroraComment on above:Performed By: #### UA #### [address] [address]Acdqqwanv (U) [Mass/Vol]NegativeNormalNEGATIVEThe Medical Center of AuroraComment on above:Performed By: #### UA #### [address] [address]TCKIDBBIND(1+)AbnormalNEGATIVEThe Medical Center of AuroraComment on above:Performed By: #### UA #### [address] [address]Jwnvd (U)YELLOWNormalSTRAW,YELLOWThe Medical Center of AuroraComment on above:Performed By: #### UA #### [address] [address]Qfjhdls [Mass/Vol]NegativeNormalNEGATIVEThe [facility] Center of [facility] Comment on above:Performed By: #### UA #### [address] [address]Ajmicgi Ql (U)NegativeNormalNEGATIVEThe [facility] Center of [facility] Comment on above:Performed By: #### UA #### [address] [address]Wdhnvisog esterase Test strip Ql (U)NegativeNormalNEGATIVEThe Medical Center of AuroraComment on above:Performed By: #### UA #### [address] [address]Uechfsp Ql (U)NegativeNormalNEGATIVEThe Medical Center of Aurora Comment on above:Performed By: #### UA #### [address] [address]lW (Bld)6.2Asllcv6.0 - 8.0[facility] AuroraComment on above:Performed By: #### UA #### [address] [address]Vfeaazr (U) [Mass/Vol]30 (1+)AbnormalNEGATIVEThe Medical Center of AuroraComment on above:Performed By: #### UA #### [address] [address]Pqxjswkx gravity (U) [Rel density]1.745Cokheb5.005 - 1.035The [facility] Center of AuroraComment on above:Performed By: #### UA #### [address] [address]Qvpbmbgzbpni Qn (U)<2.5Ecnkly8.0 - 1.9[facility] Comment on above:Performed By: #### UA #### [address] [address]AA RENAL BILATon 94-70-8640FA RENAL BILATMRN: [id number] Patient Name: KATERINA DANIELLE STUDY: US RENAL BILAT; 07/27/2019 2:41 pm INDICATION: CKD, Essential (primary) hypertension, Diffuse large B-cell lymphoma. COMPARISON: None. ACCESSION NUMBER(S): [id number] ORDERING CLINICIAN: CHRISTOPHER WATKINS TECHNIQUE: Multiple images [...] masses or obstructing stones Electronically signed by: Nader LOUISFoothills HospitalUric Acid, Serumon 97-63-2607Pojuw [Mass/Vol]5.8 mg/dL4.0 - 7.3JV-Flzaqbebjt-BtusxllSt. Joseph'S Hospital Work Phone: [phone] on above:Venipuncture immediately after or during the administration of Metamizole may lead to falsely low results. Testing should be performed immediately prior to Metamizole dosing.Urinalysison 53-04-2394Tlqcsjkmvv (U)ZUQWOKRECYPH-Cnnqqifial-NjdadcrSt. Joseph'S Hospital Work Phone: [phone] (U)YELLOWSee RpiduHG-Rigqqoxgqu-WubhlqbSharkey Issaquena [facility] Work Phone: [phone] on above:Reference Range: STRAW,YELLOWGlucose Ql (U)KauujbenYUPRAUSASN-Lgtkqfxitc-YqzhdrnSharkey Issaquena [facility] Hospital Work Phone: Ketones Ql (U)TdfhcqnjQCLPFOUQIV-Iyeuwdbejf-ZhspyusSharkey Issaqu[facility] Hospital Work Phone: [phone] esterase Test strip Ql (U)NegativeNEGATIVE [facility] Work Phone: [phone] (U)6.0 [pH]5.0 - 8.3OP-Gmtprgeqdu-SdmdcsdSanford South University Medical Center Work Phone: protein (U) [Mass/Vol]30 (1+)AbnormalNEGATIVE [facility] Work Phone: [phone] (U) [#/Vol]SMALL(1+)AbnormalNEGATIVE [facility] Work Phone: Specific gravity (U) [Rel density]1.021See Below [facility] Work Phone: comment on above:Reference Range: 1.005 - 1.035 PfuwjrobakCdvihnwrRBMIROVMBH-Sdvhalpahe-Oarorww [facility] Work Phone: Urinalysis<2.00.0 - 1.2TR-Zkptqwwbfy-EjsxyovSanford South University Medical Center Work Phone: Urinalysis, Microscopicon 45-69-1616Qfrczgxwxq, Microscopic1 {/HPF}6-9HJ-JdfzoekrijSharkey Issaquena [facility] Hospital Work Phone: Urinalysis, Microscopic1+[facility] Work Phone: VITAMIN D, 25-HYDROXYon 89-10-9737MRSZJMB D, 25-ZEAIFWB71 ng/mLNormalThe Medical Center of AuroraComment on above:Result Comment: . DEFICIENCY: < 20 NG/ML INSUFFICIENCY: 20-29 NG/ML OPTIMUM LEVEL: 30-80 NG/ML POSSIBLE TOXICITY: > 80 NG/ML THIS ASSAY ACCURATELY QUANTIFIES THE SUM OF VITAMIN D3, 25-HYDROXY AND VIT D2,25-HYDROXY.Performed By: #### VTDOH #### [address] [address]Sdtpkvs D 25-Hydroxyon 54-54-4475Okyfkgsqz [Mass/Vol]66 ng/mL [facility] Work Phone: comment on above:.DEFICIENCY: < 20 NG/MLINSUFFICIENCY: 20-29 NG/MLOPTIMUM LEVEL: 30-80 NG/MLPOSSIBLE TOXICITY: > 80 NG/MLTHIS ASSAY ACCURATELY QUANTIFIES THE SUM OFVITAMIN D3, 25-HYDROXY AND VIT D2,25-HYDROXY. Complete Blood Count + Differentialon 83-08-5644Nrdfbryjo (Bld) [#/Vol]0.01 {x10E9/L}See HnvllRX-Lknpqyzdk-Xpmiiim Work Phone: Comment on above:Reference Range: 0.00 - 0.10 Basophils/100 WBC (Bld)0.3 %0.0 - 2.1UI-Qaqumqhcw-Ozujndk Work Phone: [phone] (Bld) [#/Vol]0.09 {x10E9/L}See Below CA-Keibgvdrw-Lkctyfl Work Phone: [phone] on above:Reference Range: 0.00 - 0.70 Eosinophils/100 WBC (Bld)2.8 %0.0 - 6.6QH-Fmvtewhpx-Vzlkmka Work Phone: [phone] distribution width (RBC) [Ratio]15.4 % above high thresholdSee JgomkNV-Ucjtjzipr-Mkdgfbn Work Phone: [phone] on above:Reference Range: 11.5 - 14.5 Hematocrit (Bld) [Volume fraction]43.5 %See HfjgeNM-Jvnfjcwqj-Tlthyhe Work Phone: [phone] on above:Reference Range: 41.0 - 52.0 Hemoglobin (Bld) [Mass/Vol]13.6 g/dLSee DkvfiVU-Qscejollv-Qkkzmgz Work Phone: [phone] on above:Reference Range: 13.5 - 17.5 Lymphocytes (Bld) [#/Vol]0.93 {x10E9/L}below low thresholdSee Below AA-Fcfmjkwjm-Duteqkz Work Phone: [phone] on above:Reference Range: 1.20 - 4.80 Lymphocytes/100 WBC (Bld)29.3 %See DztckAC-Lxzqnvspa-Pkhgbko Work Phone: [phone] on above:Reference Range: 13.0 - 44.0MCHC (RBC) [Mass/Vol]31.3 g/dLbelow low thresholdSee AwnmwFD-Lfhpfgkkx-Dpnkwai Work Phone: [phone] on above:Reference Range: 32.0 - 36.0MCV (RBC) [Entitic vol]87 fL80 - 214GL-Oxgidzaox-Jcnwhkg Work Phone: [phone] (Bld) [#/Vol]0.28 {x10E9/L}See Below VY-Cefkydsgt-Giukhmc Work Phone: [phone] on above:Reference Range: 0.10 - 1.00 Monocytes/100 WBC (Bld)8.8 %2.0 - 10.4PQ-Pnlmqnwni-Dcvcike Work Phone: [phone] (Bld) [#/Vol]1.84 {x10E9/L}See Below EL-Qmloapgbt-Jptvcpz Work Phone: [phone] on above:Reference Range: 1.20 - 7.70 Neutrophils/100 WBC (Bld)58.2 %See EjitpSW-Uvxvbkkvg-Pyuooph Work Phone: [phone] on above:Reference Range: 40.0 - 80.0Platelets (Bld) [#/Vol]61 {x10E9/L}below low hhguzkgyy035 - 346GL-Eysxuasvr-Fkofide Work Phone: [phone] (Bld) [#/Vol]5.02 {x10E12/L}See Below SG-Mnjryjatr-Earltvp Work Phone: [phone] on above:Reference Range: 4.50 - 5.90WBC (Bld) [#/Vol]3.2 {x10E9/L}below low threshold4.4 - 11.3DQ-Bizwnplvp-Tcphgtj Work Phone: [phone] Blood Count + Differential0.6 %0.0 - 0.9 SX-Qviseuzao-Nkwezrg Work Phone: [phone] on above:Percent differential counts (%) should be interpreted in the context of the absolute cell counts (cells/L).Gamma Glutamyl Transferase, Serumon 70-91-7297Ijbuf glutamyl transferase [Catalytic activity/Vol]522 U/Labove high threshold5 - 90CR-Daonfntze-Vtjugde Work Phone: Imm/Pathon 96-82-5926AgE [Mass/Vol]13 mg/dLbelow low ultyimkzm26 - 033UZ-Axwexyrol-Otnalyl Work Phone: [phone] on above:MONOCLONAL PROTEINS MAY CAUSE FALSELY LOWRESULTS IN THIS ASSAY. SERUM PROTEINELECTROPHORESIS SHOULDBE DONE THEFIRST TEST TO EVALUATE MONOCLONAL GAMMOPATHY.IgG [Mass/Vol]589 mg/dLbelow low lrgxlivsf423 - 0427BK-Ioroshyaz-Lnvisru Work Phone: [phone] on above:MONOCLONAL PROTEINS MAY CAUSE FALSELY LOWRESULTS IN THIS ASSAY. SERUM PROTEINELECTROPHORESIS SHOULDBE DONE THEFIRST TEST TO EVALUATE MONOCLONAL GAMMOPATHY.IgM [Mass/Vol]mg/cEPbhqfzfu51 - 315DI-Thjrjwfym-Zxbiqxi Work Phone: [phone] on above:MONOCLONAL PROTEINS MAY CAUSE FALSELY LOWRESULTS IN THIS ASSAY. SERUM PROTEINELECTROPHORESIS SHOULDBE DONE THEFIRST TEST TO EVALUATE MONOCLONAL GAMMOPATHY.Metabolic Panelon 85-40-2687LBZ [Catalytic activity/Vol]271 U/Labove high bhubbfumv33 - 703AT-Qaftpkyzw-Aovdylk Work Phone: [phone] gap [Moles/Vol]13 mmol/L10 - 20 MA-Mqdbqkccb-Uyulpem Work Phone: [phone] [Mass/Vol]0.5 mg/dL0.0 - 1.2 LS-Artvkegqf-Tasypxg Work Phone: [phone] [Mass/Vol]9.3 mg/dL8.6 - 10.6 ZP-Fjsihbvtk-Pvgqvbq Work Phone: [phone] [Moles/Vol]107 mmol/L98 - 107 FL-Bodbgkroj-Fxtalqy Work Phone: [phone] [Moles/Vol]26 mmol/L21 - 53HI-Ilzpspydf-Galaeae Work Phone: [phone] [Mass/Vol]1.82 mg/dLabove high thresholdSee IvqdiOC-Egfykorqk-Kxvwlqt Work Phone: [phone] on above:Reference Range: 0.50 - 1.30Glucose [Mass/Vol]90 mg/dL74 - 96KC-Nniswteis-Pgvwgxp Work Phone: [phone] [Catalytic activity/Vol]202 U/L84 - 246 QR-Kekzploqr-Qqujfhl Work Phone: [phone] [Moles/Vol]4.7 mmol/L3.5 - 5.3 BX-Vdvfsjopc-Plqrizc Work Phone: [phone] [Mass/Vol]6.3 g/dLbelow low threshold6.4 - 8.2 NG-Wrbptiagu-Udzlgep Work Phone: [phone] [Moles/Vol]141 mmol/L136 - 145 IE-Hnodnkqog-Dkoraog Work Phone: Urea nitrogen [Mass/Vol]32 mg/dLabove high threshold6 - 94FR-Suodldvvu-Ipwsjvj Work Phone: Glucose [Mass/Vol]93 mg/dL74 - 47VB-Hfcwlabvm-Yooesvn Work Phone: Otheron 81-88-3438Ckzlqin BCP dye [Mass/Vol]4.4 g/dL 3.4 - 5.0LG-Jvrdwjvrp-Rkkxipz Work Phone: [phone] With P-5'-P [Catalytic activity/Vol]56 U/Labove high llejpwyoa44 - 28KJ-Rrvnzpgib-Cvnfflz Work Phone: [phone] on above:Patients treated with Sulfasalazine may generate falsely decreased results for ALT.AST With P-5'-P [Catalytic activity/Vol]39 U/L9 - 77KF-Hitvojmgf-Ccmhkqw Work Phone: [phone] {mL/min/1.73m2}Abnormal>24ZG-Hwespniyo-Gwuvcax Work Phone: [phone] on above:CALCULATIONS OF ESTIMATED GFR ARE PERFORMED USING THE MDRD STUDY EQUATION FOR THE IDMS-TRACEABLE CREATININE METHODS. CLIN CHEM 2007;53:766-7238 {mL/min/1.73m2}Abnormal>60 PP-Wbredzets-Lodcark Work Phone: [phone] by: DANIAL VICK07/02/19 12:12MRN: [id number] Name: KATERINA DANIELLE STUDY:PET/CT LYMPHOMA STAGING; 07/02/2019 [...] (SUV) units. CODING:Subsequent Treatment Strategy (PS) CALIBRATION:Dose Eyylgvhld-eq-Tkvc Interval (mins): 54 minMediastinal bloodpool SUV (normal [...] interpretation as stated. [facility]Electronically signed by: DANIAL VICK 07/02/19 12:12Normal NT-Sbtsgrdqr-Anawkys Work Phone: C Reactive Protein, Serumon 83-94-4917ZII [Mass/Vol] 1.59 mg/tFQmkwqaztPH-Apkoieghqhkrj-Hemnrexe B102 Work Phone: Comment on above:REF VALUE< 1.00Complete Blood Count + Differentialon 12-20-0135Ddhxaspmz (Bld) [#/Vol]0.01 {x10E9/L}See Below UM-Ekcuuhspffsqo-Yeuwbctx B102 Work Phone: Comment on above:Reference Range: 0.00 - 0.10 Basophils/100 WBC (Bld)0.3 %0.0 - 2.7DH-Tblobptsmmzys-Ylknewvd B102 Work Phone: Eosinophils (Bld) [#/Vol]0.07 {x10E9/L}See Below PA-Apwikqxzrtull-Dimdilop B102 Work Phone: Comment on above:Reference Range: 0.00 - 0.70 Eosinophils/100 WBC (Bld)2.2 %0.0 - 6.6BK-Jedicuszarwcc-Zccekhry B102 Work Phone: Erythrocyte distribution width (RBC) [Ratio]13.7 %See VrphgVH-Hkqmiimvesoyx-Chueqoqv B102 Work Phone: Comment on above:Reference Range: 11.5 - 14.5 Hematocrit (Bld) [Volume fraction]38.8 %below low thresholdSee Below KG-Nvesijptstvgn-Qsrmicta B102 Work Phone: Comment on above:Reference Range: 41.0 - 52.0 Hemoglobin (Bld) [Mass/Vol]12.4 g/dLbelow low thresholdSee Below DX-Cjeesgoxvcdhj-Udxldrmo B102 Work Phone: Comment on above:Reference Range: 13.5 - 17.5 Lymphocytes (Bld) [#/Vol]0.89 {x10E9/L}below low thresholdSee Below CG-Sbvgmgskhjeyj-Aoyyiujg B102 Work Phone: Comment on above:Reference Range: 1.20 - 4.80 Lymphocytes/100 WBC (Bld)27.7 %See QruqwEA-Dzkbmbxbijusb-Lerjcgdk B102 Work Phone: Comment on above:Reference Range: 13.0 - 44.0MCHC (RBC) [Mass/Vol]32.0 g/dLSee DwhbxDY-Gegiaoanjijya-Hyhhlmci B102 Work Phone: Com on above:Reference Range: 32.0 - 36.0MCV (RBC) [Entitic vol]93 fL80 - 085GB-Dhiahujejwrir-Xxrapfcu B102 Work Phone: Monocytes (Bld) [#/Vol]0.37 {x10E9/L}See Below BY-Vmlqzcrhillae-Ubdqnclk B102 Work Phone: Comment on above:Reference Range: 0.10 - 1.00 Monocytes/100 WBC (Bld)11.5 %2.0 - 10.2MQ-Kehehuifypvcq-Nbslsymj B102 Work Phone: Neutrophils (Bld) [#/Vol]1.86 {x10E9/L}See Below HI-Ihugonuwhmbop-Unumdqzr B102 Work Phone: Comment on above:Reference Range: 1.20 - 7.70 Neutrophils/100 WBC (Bld)58.0 %See FmmxqYF-Oaigtelijzlmr-Gpkigahz B102 Work Phone: Comment on above:Reference Range: 40.0 - 80.0Platelets (Bld) [#/Vol]60 {x10E9/L}below low johqjfzed139 - 953JQ-Ucynexusgueqp-Aeeqepex B102 Work Phone: RBC (Bld) [#/Vol]4.18 {x10E12/L}below low thresholdSee EzecdWR-Nbizzeuiedlwh-Gvtuhatw B102 Work Phone: Comment on above:Reference Range: 4.50 - 5.90WBC (Bld) [#/Vol]3.2 {x10E9/L}below low threshold4.4 - 11.7II-Rfiaegtuegknc-Gnclomry B102 Work Phone: Complete Blood Count + Differential0.3 %0.0 - 0.9 AN-Pjrtwxbpvbyjv-Lyhlarhv B102 Work Phone: Comment on above:Percent differential counts (%) should be interpreted in the context of the absolute cell counts (cells/L). Ferritin, Serumon 19-05-8293Nsztobxj [Mass/Vol]667 ug/Labove high thubdzjcg15 - 809XV-Wyhiwtyhgnidx-Iscsljru B102 Work Phone: Fibrinogen Assayon 20-72-6043Mkejzbaonn Ukpjc670 mg/dL above high qariwpvps417 - 976MT-Tdfuqdtripzxb-Ndybhwii B102 Work Phone: Hematologyon 55-28-3308gFBJ Coag (PPP) [Time]25 {sec} below low wmfvurtid28 - 04AA-Ucpurjgpgjijp-Zbxtsbyt B102 Work Phone: Comment on above:THE APTT IS NO LONGER USED FOR MONITORING UNFRACTIONATED HEPARIN THERAPY. FOR MONITORING HEPARIN THERAPY, USE THE HEPARIN ASSAY.INR Coag (PPP) [Relative time]1.0 {INR}0.9 - 1.1 NA-Ufxkgzkzmxgzy-Rukuioti B102 Work Phone: PT Coag (PPP) [Time]11.0 {sec}9.7 - 12.7 YW-Ovsizcpybgmdq-Vxghnsaq B102 Work Phone: Immunoglobulin G Level, Serumon 41-80-9117AqX [Mass/Vol]487 mg/dLbelow low bixjrolfe513 - 0936LI-Uoywbccosmjkd-Fbkxgjvb B102 Work Phone: Comment on above:MONOCLONAL PROTEINS MAY CAUSE FALSELY LOWRESULTS IN THIS ASSAY. SERUM PROTEINELECTROPHORESIS SHOULDBE DONE THEFIRST TEST TO EVALUATE MONOCLONAL GAMMOPATHY.Magnesium, Serumon 04-02-2019 Magnesium [Mass/Vol]2.39 mg/dLSee LdpjrLY-Vjrxqaetqommj-Gfqgtcvw B102 Work Phone: Comment on above:Reference Range: 1.60 - 2.40Metabolic Panelon 15-29-0086FFF [Catalytic activity/Vol]327 U/Labove high mzayqmqhy51 - 552CH-Mueonfzqnooxu-Zoioieip B102 Work Phone: Anion gap [Moles/Vol]14 mmol/L10 - 20 DV-Jgxrgejodapca-Qxkdvujy B102 Work Phone: Bilirubin [Mass/Vol]0.7 mg/dL0.0 - 1.2 NS-Vzvnnlvpqtmbg-Whphctlj B102 Work Phone: Calcium [Mass/Vol]9.6 mg/dL8.6 - 10.6 YG-Kktsrpmzhqafp-Bgobhoxt B102 Work Phone: Chloride [Moles/Vol]106 mmol/L98 - 107 VC-Hdgboyulkueqg-Hzmengkb B102 Work Phone: NQ8 [Moles/Vol]25 mmol/L21 - 32 UA-Gjckpvzlwwgbw-Ktoqvhoa B102 Work Phone: Creatinine [Mass/Vol]1.50 mg/dLabove high thresholdSee QaoahEV-Tvmejmrnpemfw-Udnmjces B102 Work Phone: Comment on above:Reference Range: 0.50 - 1.30Glucose [Mass/Vol]94 mg/dL74 - 46OC-Yjoymtdwyscjw-Ybgfcvvi B102 Work Phone: LDH [Catalytic activity/Vol]161 U/L84 - 246 RR-Dfdkhnycchblz-Ztksglwz B102 Work Phone: Potassium [Moles/Vol]4.6 mmol/L3.5 - 5.3 CA-Azwbdbyxmxapy-Peioehwr B102 Work Phone: Protein [Mass/Vol]6.2 g/dLbelow low threshold6.4 - 8.2 UM-Cbaoavofdzeug-Ysuyuiku B102 Work Phone: Sodium [Moles/Vol]140 mmol/L136 - 145 QP-Xzqfkdqetzeyg-Oangazsu B102 Work Phone: Urea nitrogen [Mass/Vol]22 mg/dL6 - 23 EG-Wcqyvziztwtut-Pghhqbcp B102 Work Phone: [phone] [Mass/Vol]92 mg/dL74 - 99 GZ-Hddibcwuwbjrf-Zybmydvw B102 Work Phone: Otheron 18-88-7116Ulbultoxfdg by: ZARA AHMADI04/02/19 13:04MRN: [id number] Name: KATERINA DANIELLE STUDY:PET/CT LYMPHOMA STAGING; 04/02/2019 [...] (FDG). Positron emission tomographic (PET) imagesfrom mid-thigh toskull base were then acquired after a one hourdelay. Also acquired was a contemporaneous low dose non-contrast CTscan performed for attenuation correction of PET images and anatomiclocalization. The PET and CT images were digitally fused fordisplay. All images were acquired on a combined PET-CT scanner unit.Some areas of FDG accumulation may be described in standardizeduptake value (SUV) units. CO DING:Subsequent Treatment Strategy (PS) CALIBRATION:Dose Ynxjqgdrv-nb-Nsqd Interval (mins): 105 minMediastinal bloodpool SUV (normal [...] interpretation as stated. [facility] Electronically signed by: ZARA AHMADI 04/02/19 13:88YupevdFB-Qggrdzmexinwv-Kmbxyxpj B102 Work Phone: Albumin BCP dye [Mass/Vol]4.1 g/dL3.4 - 5.0 FX-Gxpvvqpiynoeq-Fhwufyxr B102 Work Phone: ALT With P-5'-P [Catalytic activity/Vol]34 U/L10 - 52 FC-Zbhaqdafykeoh-Hcnozgtf B102 Work Phone: Comment on above:Patients treated with Sulfasalazine may generate falsely decreased results for ALT.AST With P-5'-P [Catalytic activity/Vol]24 U/L9 - 92TU-Cggfcjrmmygcb-Fzauqhst B102 Work Phone: [phone] {mL/min/1.73m2}Abnormal>68DZ-Bpouaafasgipl-Wfhtiqvh B102 Work Phone: [phone] {mL/min/1.73m2}Abnormal>93EC-Plyllpmavkrsj-Weknwsws B102 Work Phone: [phone] on above:CALCULATIONS OF ESTIMATED GFR ARE PERFORMED USING THE MDRD STUDY EQUATION FOR THE IDMS-TRACEABLE CREATININE METHODS. CLIN CHEM 2007;53:766-72Uric Acid, Serumon 37-99-8658Hzvma [Mass/Vol] 5.9 mg/dL4.0 - 7.5KA-Bjeozfgvvxgza-Ftzgxsev B102 Work Phone: Comment on above:Venipuncture immediately after or during the administration of Metamizole may lead to falsely low results. Testing should be performed immediately prior to Metamizole dosing.Vitamin B12, Serumon 54-19-8947Eilqwvvca (Vitamin B12) [Mass/Vol]362 pg/mL211 - 911 OU-Htjqgdxbgtpee-Ncesoxcy B102 Work Phone: [phone] Reactive Protein, Serumon 77-04-3828MHM [Mass/Vol] 0.82 mg/gNUB-Uywxsmglqmqot-Wpkfptff B102 Work Phone: [phone] on above:REF VALUE< 1.00Complete Blood Count + Differentialon 40-22-3007Xmpekqedo (Bld) [#/Vol]0.01 {x10E9/L}See Below PX-Rmelsjpvqjlfj-Berbkcnr B102 Work Phone: [phone] on above:Reference Range: 0.00 - 0.10 Basophils/100 WBC (Bld)0.4 %0.0 - 2.3IK-Kacrjlxiihpkk-Zhvzkheh B102 Work Phone: [phone] (Bld) [#/Vol]0.06 {x10E9/L}See Below TK-Qupalgnwrlfiw-Hikbntyb B102 Work Phone: [phone] on above:Reference Range: 0.00 - 0.70 Eosinophils/100 WBC (Bld)2.3 %0.0 - 6.4VX-Cisezreuabwsz-Drykpegh B102 Work Phone: [phone] distribution width (RBC) [Ratio]14.9 % above high thresholdSee AipvoNX-Gffuhlierkwni-Cxgnoxai B102 Work Phone: [phone] on above:Reference Range: 11.5 - 14.5 Hematocrit (Bld) [Volume fraction]37.4 %below low thresholdSee Below WD-Gvuqxwzesmqcw-Gtrjnyof B102 Work Phone: [phone] on above:Reference Range: 41.0 - 52.0 Hemoglobin (Bld) [Mass/Vol]11.9 g/dLbelow low thresholdSee Below OE-Sxgyrqaqqqsix-Sohdkrcu B102 Work Phone: [phone] on above:Reference Range: 13.5 - 17.5 Lymphocytes (Bld) [#/Vol]0.78 {x10E9/L}below low thresholdSee Below TW-Uzntouycthzlt-Njrclalg B102 Work Phone: [phone] on above:Reference Range: 1.20 - 4.80 Lymphocytes/100 WBC (Bld)30.2 %See JitccGX-Xgjydjcczmvnt-Yokkkvsv B102 Work Phone: Comment on above:Reference Range: 13.0 - 44.0MCHC (RBC) [Mass/Vol]31.8 g/dLbelow low thresholdSee JmkftTZ-Nwjpfogowseml-Avmghhsa B102 Work Phone: Comment on above:Reference Range: 32.0 - 36.0MCV (RBC) [Entitic vol]95 fL80 - 930ZZ-Ffccckyylgzzw-Ucafqqdk B102 Work Phone: [phone] (Bld) [#/Vol]0.33 {x10E9/L}See Below BG-Jukgnzgeibirv-Oqisqkpc B102 Work Phone: [phone] on above:Reference Range: 0.10 - 1.00 Monocytes/100 WBC (Bld)12.8 %2.0 - 10.5UZ-Dyuclzfbqivpp-Bwaeujqt B102 Work Phone: Neutrophils (Bld) [#/Vol]1.38 {x10E9/L}See Below WW-Ilhahvrorvzna-Dhbagogj B102 Work Phone: Comment on above:Reference Range: 1.20 - 7.70 Neutrophils/100 WBC (Bld)53.5 %See GifeoSO-Pvjqwojioteza-Paswjpkp B102 Work Phone: Comment on above:Reference Range: 40.0 - 80.0Platelets (Bld) [#/Vol]54 {x10E9/L}below low soeaywfko260 - 081WH-Qqrfzgqxfudaa-Kloyjtjk B102 Work Phone: [phone] (Bld) [#/Vol]3.95 {x10E12/L}below low thresholdSee IlrnmFC-Dmchcjydbhbkh-Qkbpybnb B102 Work Phone: Comment on above:Reference Range: 4.50 - 5.90WBC (Bld) [#/Vol]2.6 {x10E9/L}below low threshold4.4 - 11.6JJ-Qtrtjcewmojcn-Bbmeowgx B102 Work Phone: [phone] Blood Count + Differential0.8 %0.0 - 0.9 TU-Vitkmsotyxxcd-Cbstyrzc B102 Work Phone: Comment on above:Percent differential counts (%) should be interpreted in the context of the absolute cell counts (cells/L). Ferritin, Serumon 78-77-5813Vamqyfsz [Mass/Vol]569 ug/Labove high vrkmniqms77 - 405PS-Xirirwanjffbm-Ydkfurpo B102 Work Phone: [phone] Assayon 06-67-1911Cajnkvintx Azfmy774 mg/dL 200 - 248FR-Zmpvzeyzxkqcz-Srmbwdfx B102 Work Phone: [phone] 57-26-8640mGHN Coag (PPP) [Time]31 {sec} 28 - 51XN-Qrvmfhrqcbqlv-Vajudslj B102 Work Phone: Comment on above:THE APTT IS NO LONGER USED FOR MONITORING UNFRACTIONATED HEPARIN THERAPY. FOR MONITORING HEPARIN THERAPY, USE THE HEPARIN ASSAY.INR Coag (PPP) [Relative time]1.0 {INR}0.9 - 1.1 NM-Jylaupbbvvmug-Sditadjj B102 Work Phone: PT Coag (PPP) [Time]11.0 {sec}9.7 - 12.7 LE-Ynqvruiypwfpk-Zpbbfaqc B102 Work Phone: Immunoglobulin G Level, Serumon 66-42-2154AbK [Mass/Vol]263 mg/dLbelow low vlocgxzbe988 - 2964BY-Ghxmvrllbselo-Szgkjsqv B102 Work Phone: Comment on above:MONOCLONAL PROTEINS MAY CAUSE FALSELY LOWRESULTS IN THIS ASSAY. SERUM PROTEINELECTROPHORESIS SHOULDBE DONE THEFIRST TEST TO EVALUATE MONOCLONAL GAMMOPATHY.Magnesium, Serumon 03-19-2019 Magnesium [Mass/Vol]2.32 mg/dLSee BusrtAF-Emyprbkjwmrkt-Uteathed B102 Work Phone: Comment on above:Reference Range: 1.60 - 2.40Metabolic Panelon 50-49-7855MFD [Catalytic activity/Vol]359 U/Labove high pxgjiarub20 - 834XC-Vequzizkklxqe-Ivvkwoaz B102 Work Phone: Anion gap [Moles/Vol]13 mmol/L10 - 20 WV-Ssztnarpftnan-Fyzeihpc B102 Work Phone: Bilirubin [Mass/Vol]0.6 mg/dL0.0 - 1.2 ZQ-Lldmgoekbqlwu-Vkvfbdvz B102 Work Phone: Calcium [Mass/Vol]9.7 mg/dL8.6 - 10.6 CK-Aqgihjmmukrda-Slnivkvc B102 Work Phone: Chloride [Moles/Vol]107 mmol/L98 - 107 WZ-Pcwtshashsquy-Inpzyico B102 Work Phone: RH8 [Moles/Vol]24 mmol/L21 - 32 DC-Utqzjzzxlsnfy-Gyldneld B102 Work Phone: Creatinine [Mass/Vol]1.49 mg/dLabove high thresholdSee KqouqCE-Sdnbtikvffhpk-Jqdxqred B102 Work Phone: Comment on above:Reference Range: 0.50 - 1.30Glucose [Mass/Vol]107 mg/dLabove high tccadaucw89 - 92IY-Dvzrlvqajzzoy-Hmcbrhiv B102 Work Phone: LDH [Catalytic activity/Vol]171 U/L84 - 246 HJ-Cwerkuosivfdg-Kymmbeos B102 Work Phone: Potassium [Moles/Vol]4.2 mmol/L3.5 - 5.3 BO-Xdyyoynzdeyox-Iesocjht B102 Work Phone: Protein [Mass/Vol]5.7 g/dLbelow low threshold6.4 - 8.2 WB-Kqxjhzolvezsl-Owndjumg B102 Work Phone: Sodium [Moles/Vol]140 mmol/L136 - 145 CA-Dpniknmywewbz-Rghenvkj B102 Work Phone: Urea nitrogen [Mass/Vol]21 mg/dL6 - 23 SQ-Gkisistjqsnts-Ggcapelp B102 Work Phone: Otheron 19-27-5195Rfcuykl BCP dye [Mass/Vol]4.1 g/dL 3.4 - 5.3FG-Eoyexknssntxp-Kdswostw B102 Work Phone: ALT With P-5'-P [Catalytic activity/Vol]48 U/L10 - 52 MG-Wmfksrzbxstuj-Rcgyvvrd B102 Work Phone: [phone] on above:Patients treated with Sulfasalazine may generate falsely decreased results for ALT.AST With P-5'-P [Catalytic activity/Vol]27 U/L9 - 12LM-Mfzslhvhfchqu-Qiuyzmrg B102 Work Phone: [phone] {mL/min/1.73m2}Abnormal>64GC-Qiwoszzaqsefa-Yvbjykib B102 Work Phone: [phone] {mL/min/1.73m2}Abnormal>72FD-Klrmispnhdvjx-Vuhgvdxw B102 Work Phone: Comment on above:CALCULATIONS OF ESTIMATED GFR ARE PERFORMED USING THE MDRD STUDY EQUATION FOR THE IDMS-TRACEABLE CREATININE METHODS. CLIN CHEM 2007;53:766-72Thyroidon 46-94-5438TBW Qn0.78 {mIU/L}See Below YL-Rjhmawsphcayi-Uirndgrc B102 Work Phone: Comment on above:Reference Range: 0.44 - 3.98 TSH testing is performed using different testing methodology at [facility] than at other [facility]. Direct result comparisons should only be made within the same method.. Patients receiving more than 5 mg/day of biotin may have interference in test results. A sample should be taken no sooner than eight hours after previous dose. Contact [phone] for additional information.Uric Acid, Serumon 62-88-4380Mpapi [Mass/Vol]5.5 mg/dL4.0 - 7.5 MC-Qfzqhrfivjzjf-Ktdeqzxt B102 Work Phone: Comment on above:Venipuncture immediately after or during the administration of Metamizole may lead to falsely low results. Testing should be performed immediately prior to Metamizole dosing. Vital Signs Date TimeVital SignValuePerforming DyzukotxzKquujqao19-32-0795 11:08-0500Body .9 cmDawfelicia Cole MD Work Phone: [facility]11-10-2025 11:08-0500 Body mass index (BMI) [Ratio]36.75 kg/m2Dawfelicia Cole MD Work Phone: [facility]11-10-2025 11:08-0500 Body .92 kgDawfelicia Cole MD Work Phone: [facility]11-10-2025 11:08-0500 Diastolic blood hkadcbif51 mm[Hg]Sandra Cole MD Work Phone: [facility]11-10-2025 11:08-0500 Heart rate80 /Silvana Cole MD Work Phone: [facility]11-10-2025 11:08-0500 Systolic blood iowipzao260 mm[Hg]Sandra Cole MD Work Phone: [facility]09-24-2025 08:58-0400 Body eneuny942.9 Ty Farias MD Work Phone: [facility] CenterGexpandoyz52-93-7040 08:58-0400Body mass index (BMI) [Ratio]37.03 kg/l6AotxbnNael Farias MD Work Phone: [phone] [place], [place] [address]Vhvmdaimso66-23-8778 08:58-0400Body hbswyc815.83 kgNael Farias MD Work Phone: [phone])[facility] [place], [place] [address]Asxadtkdyd53-40-3539 08:58-0400Heart rate84 /min Nael Farias MD Work Phone: 1(179)[facility] [place], [place] [address]Wjoeboftdv23-89-8057 08:58-5487CaG0% (BldA) [Mass fraction]94 %Nael Farias MD Work Phone: [phone])[address] [place], [place] 5971109-08-2025 13:45-0400Body ossmvf832.9 cmEалександр Farias MD Work Phone: [phone])[address] [place], [place] 5971109-08-2025 13:45-0400Body mass index (BMI) [Ratio]37.03 kg/i1YqpznlNael Farias MD Work Phone: 1(376)[facility] [place], [place] [address]Xkaquwbnmc34-86-7923 13:45-0400Body .83 kgNael Farias MD Work Phone: [phone])[address] [place], [place] 5971106-24-2025 10:53-0400Body niomtv396.9 cmEалександр Farias MD Work Phone: 1(192)[facility] [place], [place] [address]Jsbqgmcpye71-73-1297 10:53-0400Body mass index (BMI) [Ratio]35.94 kg/v2MllrurNael Farias MD Work Phone: 1(544)[facility] [place], [place] [address]Gvyehmlbhu00-03-0086 10:53-0400Body ekvnqp350.2 kgNael Farias MD Work Phone: 1(648)[facility] [place], [place] [address]Lxmdwbgsrp49-90-9789 10:53-0400Heart rnet223 /min Nael Farias MD Work Phone: [phone])[facility] [place], [place] [address]Bwmgfnkakm71-72-6517 10:53-0802XjD2% (BldA) [Mass fraction]98 %Nael Farias MD Work Phone: 1(427)[facility] [place], [place] [address]Qylwlzqpuc98-22-4266 11:04-0400Body rytula911.9 cmArash Roland MD Work Phone: [phone] [place], [place] 3066406-19-2025 11:04-0400 Body mass index (BMI) [Ratio]36.67 kg/x6FtnjsChristopher Watkins MD Work Phone: [phone])[address]06-19-2025 11:04-0400 Body yneomv788.65 kgChristopher Watkins MD Work Phone: 1([phone])[address]06-19-2025 11:04-0400 Diastolic blood ptjxudne92 mm[Hg]Christopher Watkins MD Work Phone: [phone])[address]06-19-2025 11:04-0400 Heart wjoc507 /Yuki Watkins MD Work Phone: [phone])[address]06-19-2025 11:04-0400 Systolic blood jbdnjtuu904 mm[Hg]Christopher Watkins MD Work Phone: [phone])[address]06-12-2025 08:50-0400 Body mass index (BMI) [Ratio]36.93 kg/m2Anirudh Sears MD Work Phone: [phone])[address]06-12-2025 08:50-0400 Body ffucyspawro82.5 [degF]Anirudh Sears MD Work Phone: [phone]-12-2025 08:50-0400 Body rcyrbt921.5 kgAnirudh Sears MD Work Phone: [phone])322[facility]06-12-2025 08:50-0400 Diastolic blood nnlvjeke85 mm[Hg]Anirudh Sears MD Work Phone: 1(270)[address]06-12-2025 08:50-0400 Heart rate90 /Alin Sears MD Work Phone: 1(971)[address]06-12-2025 08:50-0400 Respiratory rate16 /Alin Sears MD Work Phone: 1(694)490-[address] [place], [place] [address]12-2025 08:50-0400 SaO2% (BldA) [Mass fraction]95 %Anirudh Sears MD Work Phone: [facility]06-12-2025 08:50-0400 Systolic blood yaaagjij234 mm[Hg]Anirudh Sears MD Work Phone: [facility]05-05-2025 10:34-0400 Body hcakmw598.9 cmDaburton Cole MD Work Phone: [facility]05-05-2025 10:34-0400 Body mass index (BMI) [Ratio]36.75 kg/m2Sandra Cole MD Work Phone: 1(926)[facility] [place], [place] 16[address]505-05-2025 10:34-0400 Body ypzxew504.92 kgDaburton Cole MD Work Phone: 1(019)[facility]5506[facility]05-05-2025 10:34-0400 Diastolic blood ixsmkaap23 mm[Hg]Sandra Cole MD Work Phone: [facility]05-05-2025 10:34-0400 Systolic blood mzjjqohu745 mm[Hg]Sandra Cole MD Work Phone: [facility]03-06-2025 09:29-0500 Body fvwkih254.9 cmEалександр Farias MD Work Phone: [facility] CenterUvqgcvzecy21-21-0693 09:29-0500Body mass index (BMI) [Ratio]37.03 kg/x6AmyrypNael Farias MD Work Phone: [facility] CenterGowkaiusmn22-20-0780 09:29-0500Body gxisca220.83 kgNael Farias MD Work Phone: [facility] CenterWsfeysgvzi45-78-5552 09:29-0500Diastolic blood qezfvnyw07 mm[Hg]Nael Farias MD Work Phone: [facility] CenterYhtuulmxgj89-63-0203 09:29-0500Heart rate92 /min Nael Farias MD Work Phone: [facility] CenterMbaofffuea76-31-3674 09:29-9053QdP4% (BldA) [Mass fraction]95 %Nael Farias MD Work Phone: [facility] CenterOjkqvayaur74-36-7761 09:29-0500Systolic blood cmlborkp473 mm[Hg]Nael Farias MD Work Phone: [facility] CenterAsltaorsyf24-56-4725 14:35-0500Diastolic blood jesdwylc72 mm[Hg]Christopher Watkins MD Work Phone: [facility]02-18-2025 14:35-0500 Heart rate72 /minChristopher Watkins MD Work Phone: 1(712)177-[address] [place], [place] 3066402-18-2025 14:35-0500 Systolic blood xydvvfpg995 mm[Hg]Christopher Watkins MD Work Phone: 6(949)192-[address] [place], [place] 3066402-18-2025 14:24-0500 Body .9 cmAslick Watkins MD Work Phone: 1(105)729-[address] [place], [place] 3066402-18-2025 14:24-0500 Body mass index (BMI) [Ratio]37.08 kg/g8TjfyfChristopher Watkins MD Work Phone: [phone]02-18-2025 14:24-0500 Body ieqnlu302.01 kgChristopher Watkins MD Work Phone: 6(566)344-[address] [place], [place] 3066412-23-2024 09:50-0500 Body abeehr848.9 cmEалександр Farias MD Work Phone: [facility] CenterZzdfqnmijd76-88-3877 09:50-0500Body mass index (BMI) [Ratio]35.8 kg/z6DegiiqNael Farias MD Work Phone: [facility] CenterOckcmicpzt55-85-1617 09:50-0500Body .75 kgNael Farias MD Work Phone: [facility] CenterWihcsvxqyp60-22-0381 09:50-0500Heart rate66 /min Nael Farias MD Work Phone: [facility] CenterBxbgzeikrj01-62-9575 09:50-7387LyN9% (BldA) [Mass fraction]97 %Nael Farias MD Work Phone: [facility] CenterXhqeptxvqv04-69-0303 10:24-0500Body mass index (BMI) [Ratio]36.15 kg/m2Anirudh Sears MD Work Phone: 1(284)[address]12-16-2024 10:24-0500 Body bxllginworm03.1 [degF]Anirudh Sears MD Work Phone: [phone])[address] [place], [place] 7238912-16-2024 10:24-0500 Body sqcefu259.9 kgAnirudh Sears MD Work Phone: 1(566)[address] [place], [place] 1507612-16-2024 10:24-0500 Diastolic blood gmiizcgj63 mm[Hg]Aniurdh Sears MD Work Phone: 1(769)[address] [place], [place] 7238912-16-2024 10:24-0500 Heart rate68 /minAnirudh Sears MD Work Phone: 1(025)[address] [place], [place] 1507612-16-2024 10:24-0500 Respiratory rate18 /minAnirudh Sears MD Work Phone: 1(487)[address] [place], [place] 1507612-16-2024 10:24-0500 SaO2% (BldA) [Mass fraction]94 %Anirudh Sears MD Work Phone: [phone])[address] [place], [place] 7238912-16-2024 10:24-0500 Systolic blood cfipckdl562 mm[Hg]Anirudh Sears MD Work Phone: [phone])[address] [place], [place] 7238911-04-2024 10:16-0500 Body duejzw464.9 cmDaburton Cole MD Work Phone: [facility]11-04-2024 10:16-0500 Body mass index (BMI) [Ratio]36.89 kg/m2Sandra Cole MD Work Phone: [facility]11-04-2024 10:16-0500 Body zaqvmm854.38 kgDawn Kelsey GRACE Work Phone: [facility]10-16-2024 14:19-0400 Body edztxq343.74 kgMD Nael Farias Work Phone: [facility]10-16-2024 14:19-0400 Diastolic blood yadkstim73 mm[Hg]MD Nael Farias Work Phone: 1(806)331-[address] [place], [place] 4989310-16-2024 14:19-0400 Heart rate69 /minMD Nael Farias Work Phone: 1(419)151-[address] [place], [place] 79[address]110-16-2024 14:19-0400 SaO2% (BldA) [Mass fraction]97 %MD Nael Farias Work Phone: 1(179)687-[address] [place], [place] 4989310-16-2024 14:19-0400 Systolic blood gutzonli266 mm[Hg]MD Nael Farias Work Phone: 1(215)288-[address] [place], [place] 4989310-11-2024 10:11-0400 Body .9 Sukhdeep Watkins MD Work Phone: [facility]10-11-2024 10:11-0400 Body mass index (BMI) [Ratio]35.8 kg/y1VbagcChristopher Watkins MD Work Phone: [facility]10-11-2024 10:11-0400 Body rbukky840.75 kgChristopher Watkins MD Work Phone: [facility]10-11-2024 10:11-0400 Diastolic blood byhvblpl82 mm[Hg]Christopher Watkins MD Work Phone: [facility]10-11-2024 10:11-0400 Heart rate67 /minChristopher Watkins MD Work Phone: [facility]10-11-2024 10:11-0400 Systolic blood tedagmzs188 mm[Hg]Christopher Watkins MD Work Phone: [facility]09-24-2024 09:57-0400 Body uxfafn411.9 cmEалександр Farias MD Work Phone: [facility] CenterRssjgwwbgp64-30-8509 09:57-0400Body mass index (BMI) [Ratio]35.8 kg/a6JuftjkNael Farias MD Work Phone: [facility] CenterZxlfpuqhan51-83-9313 09:57-0400Body ewerxr176.75 kgNael Farias MD Work Phone: [facility] CenterQdpbfblukb96-31-6097 15:51-0400Body ginbaq053.74 kgMD Nael Farias Work Phone: [facility]09-18-2024 15:51-0400 Diastolic blood pblecoyy22 mm[Hg]MD Nael Farias Work Phone: [facility]09-18-2024 15:51-0400 Heart rate70 /minMD Nael Farias Work Phone: [facility]09-18-2024 15:51-0400 SaO2% (BldA) [Mass fraction]97 %MD Nael Farias Work Phone: [facility]09-18-2024 15:51-0400 Systolic blood vtjeaeqo063 mm[Hg]MD Nael Farias Work Phone: [facility]09-09-2024 08:27-0400 Body biajtr945.9 cmChristophluda Morrison DO Work Phone: [facility] CenterEctuibsrcy56-31-0025 08:27-0400Body mass index (BMI) [Ratio]35.8 kg/x0Tkinjcgaidd Prince DO Work Phone: [facility] CenterBualauampu35-49-0303 08:27-0400Body idxfwu874.75 kgChristopher Prince DO Work Phone: [facility] CenterUleihdbhyz24-70-7470 08:27-0400Diastolic blood btndyrya72 mm[Hg]Nadeem Morrison DO Work Phone: [facility] CenterTlruhutsks65-36-8148 08:27-0400Heart rate64 /min Nadeem Morrison DO Work Phone: [facility] CenterGharikovpp45-22-2155 08:27-8798JjI8% (BldA) [Mass fraction]95 %Nadeem Morrison DO Work Phone: [facility] CenterUomhxddhtg31-04-0916 08:27-0400Systolic blood idijkqhf874 mm[Hg]Nadeem Morrison DO Work Phone: [facility] CenterUqyzgkdcgh99-46-1662 10:39-0400Body mass index (BMI) [Ratio]35.8 kg/m2Sandra Cole MD Work Phone: [phone] [place], [place] [address]505-06-2024 10:39-0400 Body .75 kgSandra Cole MD Work Phone: [facility]05-06-2024 10:39-0400 Heart rate72 /minDbobby Cole MD Work Phone: [facility]05-06-2024 10:39-0400 SaO2% (BldA) [Mass fraction]96 %Sandra Cole MD Work Phone: [facility]04-05-2024 09:53-0400 Body vsvinb858.9 Sukhdeep Watkins MD Work Phone: [facility]04-05-2024 09:53-0400 Body mass index (BMI) [Ratio]35.67 kg/r0DtpozChristopher Watkins MD Work Phone: [facility]04-05-2024 09:53-0400 Body tbldlo583.3 kgChristopher Watkins MD Work Phone: [facility]04-05-2024 09:53-0400 Diastolic blood mm[Hg]Christopher Watkins MD Work Phone: [facility]04-05-2024 09:53-0400 Heart rate62 /minChristopher Watkins MD Work Phone: [facility]04-05-2024 09:53-0400 Systolic blood mm[Hg]Christopher Watkins MD Work Phone: [facility]12-13-2023 11:15-0500 Body mass index (BMI) [Ratio]35.16 kg/m2Anirudh Sears MD Work Phone: [facility]12-13-2023 11:15-0500 Body fspwjytxvcg86.3 [degF]Anirudh Sears MD Work Phone: 1(453)399-[address] [place], [place] 5003812-13-2023 11:15-0500 Body jzrfse682.6 kgAnirudh Sears MD Work Phone: 1(771)340-[facility]12-13-2023 11:15-0500 Diastolic blood gygcicrl73 mm[Hg]Anirudh Sears MD Work Phone: 1(252)535-[facility]12-13-2023 11:15-0500 Heart rate70 /minAnirudh Sears MD Work Phone: 1(861)012-[facility]12-13-2023 11:15-0500 Respiratory rate16 /minAnirudh Sears MD Work Phone: 1(077)117-[facility]12-13-2023 11:15-0500 SaO2% (BldA) [Mass fraction]98 %Anirudh Sears MD Work Phone: 1(036)729-[facility]12-13-2023 11:15-0500 Systolic blood cttavsqe898 mm[Hg]Anirudh Sears MD Work Phone: 1(081)823-[facility]06-22-2023 13:54-0400 Body qkkerx622.88 Ty Farias Work Phone: 1(370) 304-8773995-2288RD-[facility] ManagementJackson [facility] Center Work Phone: 1(327) 111-944506-22-2023 13:54-0400Body mass index (BMI) [Ratio] 35.26 kg/b7ZfpgxwNael Farias Work Phone: UJ-Cfpv [facility] Work Phone: 1(284) 230-630306-22-2023 13:54-0400Body surface area Derived from formula2.38 v4TobzdbNael Farias Work Phone: YJ-Hkwl [facility] Work Phone: 1(509) 887-793706-22-2023 13:54-0400Body uujvhbzefoj12.16 [degF] Nael Farias Work Phone: RD-Yqpc [facility] Work Phone: 1(717) 236-642806-22-2023 13:54-0400Body hbiied512.94 kgNael Farias Work Phone: [facility] Work Phone: 1(105) 980-752906-22-2023 13:54-0400Diastolic blood vsbucagr99 mm[Hg] Nael Farias Work Phone: YA[facility]igkWell[facility] Work Phone: 1(968) 619-527606-22-2023 13:54-0400Heart rate75 /Mohsen Farias Work Phone: HT-[facility]mphWell[facility] Work Phone: 1(135) 976-819006-22-2023 13:54-0400Respiratory rate16 /Mohsen Farias Work Phone: EE-Dpit [facility] Work Phone: 1(653) 894-875606-22-2023 13:54-2283WiB8% (BldA) [Mass fraction]96 % Nael Farias Work Phone: QF-Xmbl [facility] Work Phone: 1(837) 604-513106-22-2023 13:54-0400Systolic blood ykzyjlxs665 mm[Hg] Nael Farias Work Phone: mp-[facility]Jackson [facility] Work Phone: 1(904) 807-514305-31-2023 13:51-0400Body gcqmos857.88 cmEdscott Farias Work Phone: 1(395) [phone]-UiuxwR[facility] 3 DO Work Phone: 1(592) 268-519605-31-2023 13:51-0400Body mass index (BMI) [Ratio] 36.08 kg/d4XytdqzNael Farias Work Phone: 1(267) 295-6528663-7591ZC-CgaemMichael [place] [address] DO Work Phone: 1(914) 893-199005-31-2023 13:51-0400Body surface area Derived from formula2.4 s1KbyxiaNael Farias Work Phone: 1(571) [phone]-LethjMichael [place] [address] DO Work Phone: 1(750) 341-514605-31-2023 13:51-0400Body jjejporyaei67.9 [degF]Nael Farias Work Phone: 1(266) [phone]-VcpfaMichael [place] [address] DO Work Phone: 1(853) 291-108005-31-2023 13:51-0400Body .66 kgNael Farias Work Phone: 1(567) [phone]-BviclMichael [place] [address] DO Work Phone: 1(804) 657-688405-31-2023 13:51-0400Diastolic blood pehovabf37 mm[Hg] Nael Farias Work Phone: 1(208) [phone]-OjknzRidgeview [facility] 3 DO Work Phone: 1(927) 243-177505-31-2023 13:51-0400Heart rate72 /minEалександр Farias Work Phone: 1(106) [phone]-OlpxmMichael [place] [address] DO Work Phone: 1(187) 231-856805-31-2023 13:51-0400Systolic blood pvxzlypq471 mm[Hg] Nael Farias Work Phone: 1(421) [phone]-[facility]wk[facility] 3 DO Work Phone: 1(409) [phone] 10:45-0400Diastolic blood alqmlsrj26 mm[Hg] Nael Brownevelyn Work Phone: AM-Pajhjfksam-[place] 2099 DO Work Phone: 1(695) [phone] 10:45-0400Heart rate82 /minEалександр Partida Andrea Work Phone: [id number]-Izgoakwltj-[place] 2099 DO Work Phone: 1(473) 230-692604-21-2023 10:45-2606MdF2% (BldA) [Mass fraction]98 % Nael Partida Andrea Work Phone: 1(217) [phone]-Ighfykyktl-[place] 2099 DO Work Phone: 1(776) [phone] 10:45-0400Systolic blood sjtmjycc301 mm[Hg] Nael Brownevelyn Work Phone: 1(861) [phone]-Vvjtmjvzmn-[place] 2099 DO Work Phone: 1(710) 299-358004-29-2022 10:15-0400Body yzrmjj172.88 cmEалександр Brownevelyn Work Phone: 1(184) [phone]-Jmcagfihwp-[place] 2099 DO Work Phone: 1(405) [phone] 10:15-0400Body mass index (BMI) [Ratio] 36.21 kg/a5CzghktNael Farias Work Phone: 1(766) [phone]-Vxceeyelua-[place] 2099 DO Work Phone: 1(680) [phone] 10:15-0400Body surface area Derived from formula2.41 n3UedumwNael Farias Work Phone: mp194-3391RM-Faakvptntl-[place] 2099 DO Work Phone: 1(384) [phone] 10:15-0400Body gdivqs132.11 kgNael Farias Work Phone: mp146-7023EP-Jjiwwtamtv-[place] 2099 DO Work Phone: 1(324) [phone] 10:15-0400Diastolic blood gnevfyer18 mm[Hg] Nael Farias Work Phone: 1(540) [phone]-Ryejiaobdh-[place] 2100 DO Work Phone: 1(995) [phone] 10:150400Systolic blood aoqmpqtv275 mm[Hg] Nael Farias Work Phone: 1(700) [phone]-Giaknbukts-[place] 2099 DO Work Phone: 1(729) 188-343803-10-2022 10:18-0500Body mclmir451.88 cmEалександр Farias Work Phone: 1(488) [phone][facility] 3 DO Work Phone: 1(322) 122-908803-10-2022 10:18-0500Body mass index (BMI) [Ratio] 36.48 kg/x5PnbuspNael Farias Work Phone: 1(446) [phone]-[facility]tjssR[facility] 3 DO Work Phone: 1(289) 254-424103-10-2022 10:18-0500Body surface area Derived from formula2.42 r8OyguscNael Farias Work Phone: 1(173) [phone]-HrkbpR[facility] 3 DO Work Phone: 1(146) [phone] 10:18-0500Body ysufnedyaub33 [degF]Nael Farias Work Phone: 1(395) [phone]-QlftnReg[facility] 3 DO Work Phone: 1(667) 405-411203-10-2022 10:18-0500Body .02 kgNael Farias Work Phone: 1(920) [phone]-JgxdbReg[facility] Hospital 3 DO Work Phone: 1(520) 343-247003-10-2022 10:18-0500Diastolic blood nmgejwra93 mm[Hg] Nael Farias Work Phone: 1(897) [phone]-[facility]qebReg[facility] Hospital 3 DO Work Phone: 1(720) [phone] 10:18-0500Heart rate72 /minEалександр Farias Work Phone: 1(032)[phone]-[facility]di[facility] 3 DO Work Phone: 1(830) [phone] 10:18-0500Systolic blood vnbjjahg410 mm[Hg] Nael Partida Andrea Work Phone: [phone]-[facility] 3 DO Work Phone: 1(165) [phone] 11:28-0400Body oifzkg208.88 cmEалександр Partida Andrea Work Phone: [phone]-Hjtyyzlzeg-[place] 2100 DO Work Phone: 1(529) 888-342509-20-2021 11:28-0400Body mass index (BMI) [Ratio]35.8 kg/q1BivyqrNael Farias Work Phone: mp946-6878PT-Ejxvfelgod-[place] 2100 DO Work Phone: 1(682) 183-141309-20-2021 11:28-0400Body surface area Derived from formula2.4 x1DfgwheNael Brownevelyn Work Phone: mp698-8710CE-Ybheonxmqv-[place] 2099 DO Work Phone: 1(704) 612-767209-20-2021 11:28-0400Body mkeddc884.75 kgNael Brownevelyn Work Phone: [phone]-Mlhsrsqugc-[place] 2100 DO Work Phone: 1(138) 459-184109-20-2021 11:28-0400Diastolic blood upsmeioz34 mm[Hg] Nael Farias Work Phone: [phone]) [phone]-Iycidfclyw-[place] 2100 DO Work Phone: 1(796) [phone] 11:28-0400Systolic blood ecjhhmaz113 mm[Hg] Nael Farias Work Phone: [phone]-Driuhzhsdp-[place] 2100 DO Work Phone: 1(715) 329-936412-02-2019 12:54-0500BMI (Body Mass Index)32.98 kg/m2 Christopher WatkinsIzjgvllTT-Oxhsbgopv-Lgdbkot Work Phone: 1([phone]) 12:54-0500Body Aplmgzmcnmz58.62 [degF]Christopher LweesfiLS-Gzjwhgrab-Gwsqjll Work Phone: 1(318) 12:54-0500Body mxxrox850.31 kgArash Roland ZK-Jfexryujs-Owjurtf Work Phone: [phone] 12:54-0500BP Wczoxndoh89 mm[Hg]Christopher DhynleaLA-Cxejevytr-Rwmpkxw Work Phone: [phone] 12:54-0500BP Fjuiqtdh172 mm[Hg]Christopher VieqnbvER-Qnmkbonlq-Rakgjph Work Phone: 1(038) 12:54-0500BSA (Body Surface Area)2.31 m2 Christopher JgxpxzpTG-Xustvcxry-Bnfnbop Work Phone: [phone] 12:54-0738Uwunpe882.88 cmArash Roland IV-Upzlrvemq-Ijfdmis Work Phone: 1(072) 12:54-0500Pulse (Heart Rate)79 /minArash ZuehkgcKR-Xrmcsuvfc-Hbuzuok Work Phone: 1(625) 12:54-0500Pulse Lkqigfsh991 %Christopher Roland EO-Ouzfoibgu-Yofshmi Work Phone: [phone] 12:54-0500Respiratory Rate16 /minArash EmyxqxqEZ-Ooarqdcyo-Jtrhnbg Work Phone: [phone] 12:54-11248 1Arash Roland EW-Uywclbhjw-Bpfzwvw Work Phone: Comment on above:Pain Bomwe25-50-2766 11:44-0500BMI (Body Mass Index)33.12 kg/v8Igjfj WtwawwhPQ-Ixacbfzak-Zjwmzeh Work Phone: [phone] 11:44-0500Body Zbokgwvbygn88.3 [degF]Christopher SvedrvcXO-Ryvgowmve-Fnflwtu Work Phone: [phone] 11:44-0500Body ehdkcx588.76 kgArash Roland IZ-Kzxliubqj-Auwydrp Work Phone: 1([phone] 11:44-0500BP Pgxkclivn09 mm[Hg]Christopher HjvkyzePM-Dqprieunt-Xqxqjvv Work Phone: 1([phone]) 11:44-0500BP Alvluykd747 mm[Hg]Christopher HelgwrhWT-Fipgzoxtk-Vpjnobj Work Phone: 1([phone] 11:44-0500BSA (Body Surface Area)2.32 m2 Christopher FtyhdftIM-Hvwaoqfzz-Ryoxxlf Work Phone: 1(226) 11:44-9704Ggeher287.88 cmArash Roland RI-Uhwwpkhaw-Taqxxwy Work Phone: 1(183) 11:44-0500Pulse (Heart Rate)85 /minArash RkzdvogMF-Ryoebbpmv-Aibcxeq Work Phone: 1([phone] 11:44-0500Pulse Erdfygcg583 %Christopher Roland DR-Vwrhunhfb-Cyvmoot Work Phone: [phone]) 11:44-0500Respiratory Rate16 /minArash EqiildrCE-Rwdfhosma-Dzrupaa Work Phone: 1(740) 11:44-13282 1Arash Roland GY-Utaokjzlq-Lqxqnhi Work Phone: Comment on above:Pain Scale Encounters Encounter DateEncounter TypeCare ProviderFacilityStart: 07-12-2025 End: 07-75-0844Yuebpjkrf Result EncounterGeneric External Data ProviderNOMS External Department UnsolicitedStart: 07-12-2025 End: 35-68-3701Kogrisbix Result EncounterGeneric External Data ProviderNOMS External Department UnsolicitedStart: 07-11-2025 End: 24-36-7605Gitrah outpatient visit 25 minutesDaburton Cole MD Work Phone: [facility]:CVID (common variable immunodeficiency) (Multi) (Primary Dx); Moderate persistent asthma without complication (HHS-HCC); Stage 3 chronic kidney disease, unspecified whether stage 3a or 3b CKD (Multi) Start: 07-11-2025 End: 41-08-5019fzmbciqqnmEGDG [facility] AmbulatoryStart: 07-06-2025 End: 29-26-9930Vgavmvcaw Result EncounterGeneric External Data ProviderNOMS External Department UnsolicitedStart: 07-06-2025 End: 95-86-8490Zplvjxzhq Result EncounterGeneric External Data ProviderNOMS External Department UnsolicitedStart: 06-14-2025 End: 84-54-1128Zjrjiwxwj encounterApril Walterjacknajma DOWNEY Sushant 100 Family Medicine Comment on above:Care CoordinationStart: 06-01-2025 End: 44-01-8390Hqrsywfqx Result Beni Farias MD Work Phone: noms External Department UnsolicitedStart: 06-01-2025 End: 29-10-6039Ujweurenm Result Beni Farias MD Work Phone: noms External Department UnsolicitedStart: 05-25-2025 End: 84-60-8253Hygjhi flowsLucina Farias MD Work Phone: noMS Sushant 100 Family MedicineStart: 05-25-2025 End: 50-38-9452Ahepbb flowsLucina Farias MD Work Phone: noms Sushant 100 Family MedicineStart: 05-25-2025 End: 68-44-3148Jqtywl outpatient visit 25 minutesEdscott Farias MD Work Phone: noMS Sushant 100 Family MedicineComment on above:Chronic pain syndrome (Primary Dx); Moderate persistent asthma without complication (HCC); Drug-induced diffuse interstitial pulmonary fibrosis; Morbid obesity (CMS-HCC); BMI 37.0-37.9, adult; Stage 3b chronic kidney disease (CMS-HCC); Venous insufficiencyStart: 05-25-2025 End: 98-09-9225upzssuxdxsHAENPA J HEMEYERNot AvailableStart: 05-09-2025 End: 18-58-3289Hqcxib Carmenza Farias MD Work Phone: NOMS [place] [facility] MedicineStart: 05-09-2025 End: 16-51-9736Wnsput Carmenza Farias MD Work Phone: noms [place] 100 [facility] MedicineStart: 05-09-2025 End: 56-36-7557Wygsrk outpatient visit 25 minutesEdscott Farias MD Work Phone: NOMS [place] [address] [facility] MedicineComment on above:Edema of both legs (Primary Dx); Drug-induced diffuse interstitial pulmonary fibrosis; Moderate persistent asthma without complication (HCC); Systolic dysfunction; Stage 3b chronic kidney disease ([facility]-HCC)Start: 05-09-2025 End: 81-36-1213iikylmyhotPIXGUL J HEMEYERNot AvailableStart: 03-09-2025 End: 49-94-0535Rsuqmgqpf Result EncounterGeneric External Data ProviderNOMS External Department UnsolicitedStart: 03-09-2025 End: 52-57-4931Lqajrniha Result EncounterGeneric External Data ProviderNOMS External Department UnsolicitedStart: 02-22-2025 End: 00-64-9151Tslptq Carmenza Farias MD Work Phone: NOMS CI FM 100Start: 02-22-2025 End: 72-42-9361Iqhgoo Carmenza Farias MD Work Phone: NOMS CI FM 100Start: 02-22-2025 End: 74-86-2000Fahowl outpatient visit 25 minutesNael Farias MD Work Phone: NOMS CI FM 100Comment on above:Nausea (Primary Dx); Moderate persistent asthma without complication (HCC); Drug-induced diffuse interstitial pulmonary fibrosis; Chronic pain syndrome; SpasmStart: 02-22-2025 End: 44-97-5216gcgebvxgpfUAIJZE J HEMEYERNot AvailableStart: 02-17-2025 End: 38-03-9850Kgxycq outpatient visit 25 minutesChristopher Watkins MD Work Phone: [facility] DrComment on above:Stage 3b chronic kidney disease (Multi) (Primary Dx); Essential hypertension; Hyperparathyroidism, secondary (Multi); Diffuse large B-cell lymphoma, unspecified body region (Multi)Start: 02-17-2025 End: 88-29-1180vvxeobjelpMYYZKOptim Medical Center [facility] AmbulatoryStart: 02-10-2025 End: 30-49-6421Pemhhc outpatient visit 25 minutesAnirudh Sears MD Work Phone: uh [facility] DrComment on above: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 (Primary Dx)Start: 02-10-2025 End: 36-86-6199wudaqsnuacWZOG [facility] Hospitaltart: 01-31-2025 End: 66-31-9663Bzkyikyfa Result EncounterGeneric External Data ProviderNOMS External Department UnsolicitedStart: 01-31-2025 End: 77-79-4890Rqjbhevio Result EncounterGeneric External Data ProviderNOMS External Department UnsolicitedStart: 01-10-2025 End: 83-46-0452Pertfm Carmenza Farias MD Work Phone: NOMS CI FM 100Start: 01-10-2025 End: 30-42-0812Svbacyvenancio Farias MD Work Phone: NOMS CI FM 100Start: 01-10-2025 End: 63-07-7348mwasejfzvxKSHGFV J HEMEYERNot AvailableStart: 01-03-2025 End: 82-03-1356Exuagt outpatient visit 25 minutesDaburton Cole MD Work Phone: uh [facility] HealthcareComment on above:CVID (common variable immunodeficiency) (Primary Dx); Moderate persistent asthma without complication ([facility]-HCC)Start: 01-03-2025 End: 28-91-7695drzeelbdixIMZR M ZASt. [facility]s [facility] AmbulatoryStart: 12-15-2024 End: 1960Qmfxjwlxz Result EncounterGeneric External Data ProviderNOMS External Department UnsolicitedStart: 12-15-2024 End: 57-05-3666Qpxdawkrl Result EncounterGeneric External Data ProviderNOFL External Department UnsolicitedStart: 11-04-2024 End: 15-08-4189Sbamfb flowsLucina Farias MD Work Phone: NOMS CI FM 100Start: 11-04-2024 End: 69-22-6937Gqaxxg flowsLucina Farias MD Work Phone: NOMS CI FM 100Start: 11-04-2024 End: 28-74-4847Lsgrjro encounter procedureNael Farias MD Work Phone: noMS CI FM 100Comment on above:Encounter for Medicare [...] chronic kidney disease (HCC) (CMS/HCC)Start: 11-04-2024 End: 58-62-9693uzpoflizzbOHUHLM J HEMEYERNot AvailableStart: 10-19-2024 End: 46-43-2736Mvvjie outpatient visit 25 minutesChristopher Watkins MD Work Phone: [facility] DrComment on above:Stage 3b chronic kidney disease (Multi) (Primary Dx); Essential hypertension; Hyperparathyroidism, secondary (Multi); Diffuse large B-cell lymphoma, unspecified body region (Multi)Start: 10-19-2024 End: 56-76-1446pmgqgyqymvYCAWXOptim Medical Center [facility] AmbulatoryStart: 09-22-2024 End: 66-17-8808Ulabsnoek Result EncounterGeneric External Data ProviderNOMS External Department UnsolicitedStart: 09-22-2024 End: 89-88-8841Zwuudjamc Result EncounterGeneric External Data ProviderNOMS External Department UnsolicitedStart: 08-23-2024 End: 56-30-0898Rbjlyx Carmenza Farias MD Work Phone: NOMS CI FM 100Start: 08-23-2024 End: 74-01-7515Ptukbo Carmenza Farias MD Work Phone: noms CI FM 100Start: 08-23-2024 End: 31-01-3917Lfyrit outpatient visit 25 minutesEdscott Farias MD Work Phone: noms CI FM 100Comment on above:Spasm (Primary Dx); Chronic pain syndrome; Drug-induced polyneuropathy (CMS/HCC); Moderate persistent asthma without complication (CMS/HCC)Start: 08-23-2024 End: 94-86-6588ezquatlifcRBZJQU J HEMEYERNot AvailableStart: 08-16-2024 End: 29-91-1515Lhwkqx outpatient visit 40 minutesPefrem Sears MD Work Phone: [facility] DrComment on above: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 (Primary Dx); Hypogammaglobulinemia (Multi)Start: 08-16-2024 End: 42-68-6921clfomexkuwSLDE C [facility] Hospitaltart: 08-12-2024 End: 21-81-8541Uebtinotm Result EncounterGeneric External Data ProviderNOMS External Department UnsolicitedStart: 08-12-2024 End: 66-57-2815Oscfxpxne Result EncounterGeneric External Data ProviderNOMS External Department UnsolicitedStart: 07-05-2024 End: 23-71-9625Mefftk outpatient visit 25 minutesDawn M Kelsey MD Work Phone: uh [facility] HealthcareComment on above:CVID (common variable immunodeficiency) (Primary Dx); Asthma, unspecified asthma severity, unspecified whether complicated, unspecified whether persistent ([facility])Start: 06-30-2024 End: 11-55-6819Rfoetnejq Result EncounterGeneric External Data ProviderNOMS External Department UnsolicitedStart: 06-30-2024 End: 91-79-9525Viegybplk Result EncounterGeneric External Data ProviderNOMS External Department UnsolicitedStart: 06-16-2024 End: 13-02-8496bgisvletspBY Nael Farias Work Phone: [facility] Work Phone: Start: 06-16-2024 End: 08-41-2285Iiceyyd encounter procedureMD Nael Farias Work Phone: [facility] Work Phone: Start: 06-11-2024 End: 11-26-7801Raxmvo outpatient visit 25 minutesChristopher Watkins MD Work Phone: uh [facility] DrComment on above:Stage 3b chronic kidney disease (Multi) (Primary Dx); Essential hypertension; Hyperparathyroidism, secondary (Multi)Start: 06-02-2024 End: 31-09-5332Bvfqfivdk Result EncounterGeneric External Data ProviderNOMS External Department UnsolicitedStart: 06-02-2024 End: 19-90-5369Atmvhfeam Result EncounterGeneric External Data ProviderNOMS External Department UnsolicitedStart: 05-31-2024 End: 64-91-6452Vxgeknsty Beni Farias MD Work Phone: NOMS CI FM 100Start: 05-25-2024 End: 64-45-4165Fzwmwj flowsheetNael Farias MD Work Phone: N[facility]S CI FM 100Start: 05-25-2024 End: 80-76-3016Pkyiex flowsLucina Farias MD Work Phone: N[facility] CI FM 100Start: 05-25-2024 End: 59-07-9863Cnxnee outpatient visit 15 minutesEdscott Farias MD Work Phone: [facility] CI FM 100Comment on above:Chronic pain syndrome; Drug-induced polyneuropathy (CMS/HCC); Spasm; Moderate persistent asthma without complication (CMS/HCC); Morbid obesity (CMS/HCC); BMI 35.0-35.9,adultStart: 05-19-2024 End: 69-49-1617htlfqlfflyRE Nael Farias Work Phone: [facility] Work Phone: Start: 05-19-2024 End: 53-27-2389Tsjfkqw encounter procedureMD Nael Farias Work Phone: [facility] Work Phone: Start: 05-10-2024 End: 82-93-8858Umzywr flowsheetChristopher Prince DO Work Phone: noms [address]TEStart: 05-10-2024 End: 96-27-5847Esusqd flowsheetChristopher Prince DO Work Phone: noms [address]TEStart: 05-10-2024 End: 02-69-8881Qmamkp outpatient visit 25 minutesChristopher Prince DO Work Phone: noms [address] R[address]TEComment on above:Cervical radiculopathy (Primary Dx); Multilevel degenerative disc diseaseStart: 04-27-2024 End: 55-44-0855Antugw outpatient visit 15 minutesAnirudh Sears MD Work Phone: [facility] DrComment on above: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 (Multi) (Primary Dx); Hypogammaglobulinemia (Multi)Start: 04-27-2024 End: 32-73-1652tftldfcbttOTIQ C ARORAMercy Health St. Rita's Medical Centertart: 04-15-2024 End: 38-72-4518Iiypekd encounter procedureMD Nael Farias Work Phone: [facility] Work Phone: Start: 04-15-2024 End: 90-94-3574menrhkqtujQI Nael Farias Work Phone: [facility] Work Phone: Start: 01-05-2024 End: 46-15-3701Ufimgh outpatient visit 25 minutesSandra Cole MD Work Phone: uh [facility] HealthcareComment on above:Asthma, unspecified asthma severity, unspecified whether complicated, unspecified whether persistent ([facility]-HCC) (Primary Dx); CVID (common variable immunodeficiency) ([facility])Start: 12-05-2023 End: 27-06-7550Smsjzk outpatient visit 15 minutesChristopher Watkins MD Work Phone: [facility] DrComment on above:Stage 3b chronic kidney disease (CMS/HCC) (Primary Dx); Essential hypertension; Hyperparathyroidism, secondary (CMS/HCC)Start: 09-09-2023 End: 74-82-7854Mrxjsr outpatient visit 25 minutesSandra Cole MD Work Phone: uh [facility] HealthcareComment on above: Hypogammaglobulinemia (CMS/HCC) (Primary Dx); CVID (common variable immunodeficiency) (CMS/HCC)Start: 08-13-2023 End: 94-33-4659Xbdqqh outpatient visit 15 minutesAnirudh Sears MD Work Phone: uh [facility] DrComment on above: Hypogammaglobulinemia (CMS/HCC)Start: 42-76-8483gkgjmwoobaKvMary FariasFacility:[id number]: 85-37-8122As RenewalNael Farias Work Phone: [phone]-PlzbuR[facility] 3 DO Work Phone: Start: 51-40-2647OVMWNZgeveh J Hemeyer Work Phone: [facility] Work Phone: Start: 09-25-4174Ktkewtf tobacco non-user cad cap copd pv dmEdscott Jaquan Stephanieevelyn Work Phone: [phone]-Huye Management-[facility] Work Phone: Start: 02-07-3640thhitpbeplDw. Fab Clark Facility:[id number]: 86-99-0233Fzhpjz outpatient visit 25 minutesEdscott Farias Work Phone: [phone]-[facility]dfgqBig[facility] 3 DO Work Phone: Start: 05-45-5004xhvwxdgegrYz. Nael Farias Facility:[id number]: 08-38-1115igulkvzpdvKz. Nael FariasFacility:[facility] CtrStart: 01-02-2023 End: 82-67-7102yckozqrottNZAK M ZACHARIASFacility:P6Iuout: 87-15-0682Wqmiun outpatient visit 15 minutesNael Farias Work Phone: [phone]) [phone]-Kxujggdgxn-[place] 2100 DO Work Phone: Start: 06-17-5357Pdoaknq encounter procedureNael Farias Work Phone: [phone]-Xyuhlbnknj-[place] 2100 DO Work Phone: Start: 62-09-9587xkotffcwinCf. Nael Farias Facility:[id number]: 20-12-1159Uu RenewalNael Farias Work Phone: [phone]-TclyqEssentia Health 250 DO Work Phone: Start: 10-15-2022 End: 38-19-0719hqzvigmrytNV NAEL FARIAS .Facility:U1Wukea: 10-11-2022 End: 25-61-5838mzndducktnKT DOCTOR MISCFacility:Q8Esofk: 01-85-3283awrpxzuuvi Anirudh C AroraFacility:[facility] CtrStart: 09-27-2022 End: 93-19-1327vnemtscaalTD DOCTOR MISCFacility:B4Oksad: 78-62-9083blbbrnaocr Anirudh C AroraFacility:[facility] CtrStart: 47-58-2634kktodayntyXdzc Chrissy AroraFacility:[id number]: 08-12-2022 End: 34-05-0382xdqmkexgzmMH DOCTOR MISCFacility:L5Vhijv: 07-18-2022 End: 80-85-8629pjquctazbwWE DOCTOR MISCFacility:X1Roqnh: 14-47-1815cukzqltfzqJe. Nael FariasFacility:[address]Fooga: 06-11-2022 End: 24-71-1323jtyvxkhqgaWN Nael Farias Work Phone: [facility] Work Phone: Start: 06-11-2022 End: 23-79-4732Rminbrb encounter procedureMD Nael Farias Work Phone: [facility] Jdc-Ggo-Qmoswjjn Testing Start: 04-01-2022 End: 72-02-2104wtjqscxzszEL NAEL FARIAS .Facility:F2Vgead: 02-21-20[address] Nael FariasFacility:[id number]: 02-20-2022 End: 57-64-5119yppbrhxngvAE DOCTOR MISCFacility:B0Rnwzv: 75-47-0319Jnzwlk outpatient visit 15 minutesEdscott Farias Work Phone: [phone]-Pffjiekzzm-[place] 2099 DO Work Phone: Start: 10-43-3658Noqobqp encounter procedureNael Farias Work Phone: [phone]-Xsbopvqudg-[place] 2100 DO Work Phone: Start: 20-05-5905rkzkqdspaxQv. Nael Farias Facility:9537Start: 35-45-6096Giwovv outpatient visit 25 minutesEdscott Farias Work Phone: [phone]-Dmnrb [facility] [place] 3 DO Work Phone: Start: 96-67-1714Gxgip UpdateEdscott Farias Work Phone: [phone]) [phone]-Ogodkorfwk-[place] 2100 DO Work Phone: Start: 27-50-9310Wzfiomo encounter procedureEdscott Farias Work Phone: [phone]) [phone]-Lwypijashl-[place] 2100 DO Work Phone: Start: 25-04-7667Glmozew encounter procedureArachelsea MhujnvcSG-Ciyyurejt-Rwempeu Work Phone: Start: 04-00-4486Dboauhs encounter procedureArash AbfhalfVI-Ivzfansgn-Uhljaba Work Phone: Start: 78-35-5339Dhrinqx encounter procedureEdward TrrtlktZX-Boutrzkodnmmc-Fmwwnhjm B102 Work Phone: Start: 94-91-3018Gzogesa encounter procedureEdward XbtsquvBP-Nlrbkygbedgpr-Wswadehk B102 Work Phone: Start: 62-06-1763Libqeqe encounter procedureEdward VxwlvetRY-Rdhgmocsljxhr-Auvfuszg B102 Work Phone: Start: 79-81-8755Hmzkrpz encounter procedureEdward NkofbqgDX-Ostkgjmrakqmk-Mpzvyhxp B102 Work Phone: Start: 66-13-4980Zberuqp encounter procedureEdward AxjzuusQS-Pobokflhncdvf-Xmayrine B102 Work Phone: Start: 16-00-0085Xuxhqqs encounter procedureEdward UvvduhiDR-Fainmdyrmsimp-Tzhwloku B102 Work Phone: Procedures DateProcedureProcedure DetailPerforming ClinicianStart: 23-01-7914YDS BASIC METABOLIC PANELGeneric External Data ProviderStart: 87-56-7870NGV CMP (CMP) (FOR REMOTE [facility] USE)Generic External Data ProviderStart: 52-92-3627FAW BASIC METABOLIC PANELNael Farias MD Work Phone: Start: 62-06-6657OKH IMMUNOGLOBULIN GGeneric External Data ProviderStart: 33-85-8529ZKT CBC WITH AUTO DIFFGeneric External Data ProviderStart: 85-28-8722YCS CMP (CMP) (FOR REMOTE [facility] USE)Generic External Data ProviderStart: 33-45-9288TZF CMP (CMP) (FOR REMOTE [facility] USE)Generic External Data ProviderStart: 82-94-4221NKP CBC WITH AUTO DIFFGeneric External Data ProviderStart: 22-03-2270RJG IMMUNOGLOBULIN GGeneric External Data Provider Start: 70-38-5216UIR CBC WITH AUTO DIFFGeneric External Data ProviderStart: 36-43-8569SAL of cervical spine with contrastMD Moizscott Andrea Work Phone: Start: 82-66-4793WLU of headMD Nael Farias Work Phone: Start: 13-44-2089JlvtyamfrbbCjgr Arora MD Work Phone: Start: 74-03-4185Fowks of blood/uric acidArash Roland Start: 43-72-7968Uknwb of parathormoneArash RashidiStart: 12-54-7578Yjbln of phosphorus inorganicArash RashidiStart: 61-71-0593Aksls metabolic 1998 panel - Serum or PlasmaArash RashidiStart: 64-65-2298Faanu metabolic 1998 panel - Serum or PlasmaArash RashidiStart: 68-00-345324 hydroxy includes fractions if performedArash RashidiStart: 04-71-9837Nflzl of blood/uric acidArash Roland Start: 71-54-0958Ypwep of parathormoneArash RashidiStart: 06-34-2445Hfhwn of phosphorus inorganicArash RashidiStart: 97-06-7599Phyka metabolic 1998 panel - Serum or PlasmaArash RashidiStart: 62-35-2253Ifhoimpriv other sourceArash RashidiStart: 10-23-6998Kiufseo total xcpt refractometry urineArash Roland Start: 53-48-5723Cijukghcxa Kidney BilateralArash RashidiStart: 80-94-8322Jukac dip stick/tablet rgnt auto w/o microscopyArash RashidiStart: 18-22-8462Njxgo 1996 panel - Serum or PlasmaAnirudh Sears MD Work Phone: Fasciotomy of Aquilino Mcdaniel Antigen (LFIA)MD Nael Farias Work Phone: Plan of Treatment DateCare ActivityDetailAuthorStart: 84-42-3867Ppqrkrikp for malignant neoplasm of [facility] HospitalStart: 49-65-5265Dcuixelzd vaccination Influenza Vaccine (#1)[facility] HealthcareComment on above:Postponed from 05/02/2025 (Patient Refused)Start: 01-09-2026 End: 42-03-6400Npnelvb encounter jgfcprgby08/11/2026 11:00 AM EDT Office Visit [facility] [address] [facility] [address] [place] [id number] Sandra Cole MD [address] [facility], [facility] [address] [place] [id number] [facility] Centertart: 03-06-2026Medicare Annual Wellness (AWV)Medicare Annual Wellness (AWV)[facility] HealthcareStart: 08-16-2025 End: 67-58-5839VZT W Auto Differential panel - BloodCBC and Auto Differential Lab Routine 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 Expected: 08/16/2025, Expires: 02/14/2026[facility] Service Area Work Phone: Comment on above:Expected: 08/16/2025, Expires: 02/14/2026Start: 08-16-2025 End: 51-87-1084Erpjqtutmolcs metabolic 2000 panel - Serum or PlasmaComprehensive metabolic panel Lab Routine 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 Expected: 08/16/2025 (Approximate), Expires: 02/14/2026[facility] Work Phone: Comment on above:Expected: 08/16/2025 (Approximate), Expires: 02/14/2026Start: 08-16-2025 End: 03-58-2014Vdsmjgz dehydrogenase [Enzymatic activity/volume] in Serum or Plasma by Lactate to pyruvate reactionLactate dehydrogenase Lab Routine Diffuse large B-cell lymphoma of extranodal site excluding spleenand other solid organs Expected: 08/16/2025 (Approximate), Expires: 02/14/2026[facility] Work Phone: Comment on above:Expected: 08/16/2025 (Approximate), Expires: 02/14/2026Start: 08-15-2025 End: 78-87-2192Mzsflip encounter itlfppkmd20/15/2025 10:40 AM EST Office Visit [facility] [address] [place] [address] [address] [place] [phone] Anirudh Sears MD [address] [place] [address] [address] [place] [address] [facility] DrStart: 08-12-2025 End: [id number] W Auto Differential panel - BloodCBC and Auto Differential Lab Routine 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 Expected: 08/12/2025 (Approximate), Expires: 02/10/2026 [facility] Service Area Work Phone: Comment on above:Expected: 08/12/2025 (Approximate), Expires: 02/10/2026Start: 08-12-2025 End: [id number] metabolic 2000 panel - Serum or PlasmaComprehensive Metabolic Panel Lab Routine 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 Expected: 08/12/2025 (Approximate), Expires: 02/10/2026[facility] Work Phone: Comment on above:Expected: 08/12/2025 (Approximate), Expires: 02/10/2026Start: 08-12-2025 End: 05-15-4393Gdmybsc dehydrogenase [Enzymatic activity/volume] in Serum or Plasma by Lactate to pyruvate reactionLactate dehydrogenase Lab Routine Diffuse large B-cell lymphoma of extranodal site excluding spleenand other solid organs Expected: 08/12/2025 (Approximate), Expires: 02/10/2026[facility] Work Phone: Comment on above:Expected: 08/12/2025 (Approximate), Expires: 02/10/2026Start: 08-11-2025 End: 61-24-8508Xwmunkf encounter dockadqhm18/11/2025 11:30 AM EST Office Visit [facility] [address] [place] [address] Christopher Watkins MD [address] [place] [address] [address] [place] [address] [facility] DrStart: 07-11-2025 End: 93-02-8610Lrloz metabolic 2000 panel - Serum or PlasmaBasic Metabolic Panel Lab Routine CVID (common variable immunodeficiency) (Multi) Expected: 07/11/2025 (Approximate), Expires: 07/11/2026[facility] Work Phone: Comment on above:Expected: 07/11/2025 (Approximate), Expires: 07/11/2026Start: 07-11-2025 End: 71-88-3823SsO [Mass/volume] in Serum or PlasmaIgG Lab Routine CVID (common variable immunodeficiency) (Multi) Expected: 07/11/2025 (Approximate),Expires: 07/11/2026[facility] Work Phone: Comment on above:Expected: 07/11/2025 (Approximate), Expires: 07/11/2026Start: 07-11-2025 End: 85-13-7409Pulugkv encounter ajauwaffv00/10/2025 11:15 AM EST Office Visit [facility] [address] [place] [address] Sandra Cole MD [address] [facility], [address] [place] [address] [facility]: 05-25-2025 End: 65-47-0428Felvr metabolic 1998 panel - Serum or PlasmaBasic metabolic panel Lab Routine Stage 3b chronic kidney disease (CMS-HCC) Expected: 05/25/2025 (Ap proximate), Expires: 05/25/2026[facility] Work Phone: Comment on above:Expected: 05/25/2025 (Approximate), Expires: 05/25/2026Start: 05-25-2025 End: 22-59-0633Ouddxan encounter procedureNOMS CI FM 100Comment on above:Chronic pain syndrome; Moderate persistent asthma without complication (HCC); Drug-induced diffuse interstitial pulmonary fibrosis; Thickening of pleura; Morbid obesity ([facility]-HCC); BMI 37.0-37.9, adultStart: 05-09-2025 End: 89-71-6029Tgahoqe encounter gfbmkiple72/08/2025 1:45 PM EDT Office Visit [facility] [place] [address] [facility] [address] [facility] [address] [place] [address] Nael Farias MD [address] [facility] 100 [place] [address] [facility]rivedNOCorner[facility] [place] [facility] Family MedicineComment on above:ArrivedStart: 04-96-6363ZZMQJ-19 Vaccine ( season)COVID-19 Vaccine ( season)[facility] HealthcareStart: 05-02-2025 Influenza vaccinationNOMS HealthcareStart: 65-37-7871Hroefwdwl vaccination Influenza Vaccine (#1)[facility]: [facility] Influenza vaccinationInfluenza Vaccine (#1)NOMS HealthcareComment on above: Postponed from 05/02/2024 (Patient Refused)Start: 02-22-2025 End: 49-01-0739Eydnuxj encounter giqduuger91/24/2025 11:00 AM EDT Office Visit [facility] [address] [facility] [address] [place] [address] Nael Farias MD 112 [facility] 100 [place] [address] Moderate persistent asthma without complication (HCC); Drug-induced diffuse interstitial pulmonary fibrosis; Chronic pain syndromeNOMS CI FM 100Comment on above:Moderate persistent asthma without complication (HCC); Drug-induced diffuse interstitial pulmonary fibrosis; Chronic pain syndromeStart: 02-17-2025 End: 25-53-0892Pamxr metabolic 2000 panel - Serum or PlasmaBasic Metabolic Panel Lab Routine Stage 3b chronic kidney disease (Multi) Essential hypertension Hyp erparathyroidism, secondary (Multi) Diffuse large B-cell lymphoma, unspecified body region (Multi) Expected: 02/17/2025 (Approximate), Expires: 02/17/2026[facility] Service Area Work Phone: Comment on above:Expected: 02/17/2025 (Approximate), Expires: 02/17/2026Start: 02-17-2025 End: 96-51-8512Ibhrpcpuxf [Mass/volume] in UrineCreatinine, Urine Random Lab Routine Stage 3b chronic kidney disease (Multi) Essential hypertension Hyperparathyroidism, secondary (Multi) Diffuse large B-cell lymphoma, unspecified body region (Multi) Expected: 02/17/2025 (Approximate), Expires: 02/17/2026[facility] Work Phone: Comment on above:Expected: 02/17/2025 (Approximate), Expires: 02/17/2026Start: 02-17-2025 End: 06-33-9854Gtqmiucyuw.intact [Mass/volume] in Serum or PlasmaParathyroid Hormone, Intact Lab Routine Stage 3b chronic kidney disease (Multi) Essential hypertension Hyperparathyroidism, secondary (Multi) Diffuse large B-cell lymphoma, unspecified body region (Multi) Expected: 02/17/2025 (Approximate), Expires: 02/17/2026[facility] Work Phone: Comment on above:Expected: 02/17/2025 (Approximate), Expires: 02/17/2026Start: 02-17-2025 End: 48-66-6533Zoztaxj, Urine RandomProtein, Urine Random Lab Routine Stage 3b chronic kidney disease (Multi) Essential hypertension Hyperparathyroidism, secondary (Multi) Diffuse large B-cell lymphoma, unspecified body region (Multi) Expected: 02/17/2025 (Approximate), Expires: 02/17/2026[facility] Work Phone: Comment on above:Expected: 02/17/2025 (Approximate), Expires: 02/17/2026Start: 02-17-2025 End: 67-16-3972Fdaupcr encounter gdwepzchr27/19/2025 11:30 AM EDT Office Visit [facility] [address] [place] [address] Christopher Watkins [place] [address] [place] [address] Dr [address] [place] [address] [facility] DrStart: 01-10-2025 End: 08-34-5195Crbmqfq encounter buaueennj79/12/2025 1:45 PM EDT Office Visit [facility] [address] [place] [address] Nael Farias MD [address] [place] [address] (Fax) ArrivedNOMS CI FM 100Comment on above: ArrivedStart: 01-03-2025 End: 60-51-3133Igzptll encounter azdxsjfuk22/05/2025 10:45 AM EDT Office Visit [facility] [address] [facility] [address] [place] [address] Sandra Cole MD [address] [facility], [facility] [address] [place] [address] (Fax)[facility] Centertart: 92-24-1060Sljmokys mellitus screeningDiabetes ScreeningUnUniversity Hospitals [facility] CenterStart: 11-04-2024 End: 06-01-3652Ctsciir encounter xtaxpdexe47/06/2025 9:30 AM EST Office Visit [facility] [address] [place] [address] Nael Farias MD [address] [place] [address] (Fax) Encounter for Medicare annual wellness exam; [...] (DM); Screening for lipid disorders; Morbid obesity (CMS/HCC)Start: 02-22-2025Medicare Annual Wellness (AWV)Medicare Annual Wellness (AWV)[facility] HealthcareStart: 10-19-2024 End: 65-70-4317Ixxfd metabolic 2000 panel - Serum or PlasmaBasic Metabolic Panel Lab Routine Stage 3b chronic kidney disease (Multi) Essential hypertension Hyp erparathyroidism, secondary (Multi) Diffuse large B-cell lymphoma, unspecified body region (Multi) Expected: 10/19/2024 (Approximate), Expires: 10/19/2025[facility] Area Work Phone: Comment on above:Expected: 10/19/2024 (Approximate), Expires: 10/19/2025Start: 10-19-2024 End: 71-92-1811Ltspiflmpr [Mass/volume] in UrineCreatinine, Urine Random Lab Routine Stage 3b chronic kidney disease (Multi) Essential hypertension Hyperparathyroidism, secondary (Multi) Diffuse large B-cell lymphoma, unspecified body region (Multi) Expected: 10/19/2024 (Approximate), Expires: 10/19/2025[facility] Work Phone: Comment on above:Expected: 10/19/2024 (Approximate), Expires: 10/19/2025Start: 10-19-2024 End: 39-92-0426Vxmbwcexpe.intact [Mass/volume] in Serum or PlasmaParathyroid Hormone, Intact Lab Routine Stage 3b chronic kidney disease (Multi) Essential hypertension Hyperparathyroidism, secondary (Multi) Diffuse large B-cell lymphoma, unspecified body region (Multi) Expected: 10/19/2024 (Approximate), Expires: 10/19/2025[facility] Work Phone: Comment on above:Expected: 10/19/2024 (Approximate), Expires: 10/19/2025Start: 10-19-2024 End: 35-53-2163Hrgjrmq, Urine RandomProtein, Urine Random Lab Routine Stage 3b chronic kidney disease (Multi) Essential hypertension Hyperparathyroidism, secondary (Multi) Diffuse large B-cell lymphoma, unspecified body region (Multi) Expected: 10/19/2024 (Approximate), Expires: 10/19/2025[facility] Work Phone: Comment on above:Expected: 10/19/2024 (Approximate), Expires: 10/19/2025Start: 10-08-2024 End: 22-54-4651Cuuhdbp encounter dxkjqrska20/07/2025 10:40 AM EST Office Visit [facility] [address] [place] [address] Dr [address] [place] [phone] Christopher Watkins MD [address] [place] [address] Dr [address] [place] [address] [facility] DrStart: 08-23-2024 End: 64-47-6691Pifilem encounter procedureNOMS CI FM 100Comment on above:Arrived Start: 08-16-2024 End: 98-69-9481Cmuwobc encounter olthusznw45/16/2024 10:40 AM EST Office Visit [facility] [address] [place] [address] Dr [address] [place] [address] Anirudh Sears MD [address] [place] [address] Dr [address] [place] [address] [facility] DrStart: 08-09-2024 End: 12-97-4310Ltuwwyz encounter gvnamxngu74/09/2024 8:20 AM EST Office Visit [facility] [address] [place] [address] Arely Gabriel NP [address] [place] [address] [facility] ROUTEStart: 07-14-2024 End: 60-88-9152Ujbimwh encounter vvgbsesmx96/13/2024 1:45 PM EST Office Visit [facility] [address] [place] [address] Nohelia Machado, DO [address] [place] [address] NOMAlexia OXANA PULMStart: 07-05-2024 End: 65-57-9559Lfvvsng encounter /04/2024 10:45 AM EST Office Visit [facility] [address] [place] [address] Sandra Cole MD [address] [facility], [facility] [address] [place] [id number] [facility]: 06-11-2024 End: 19-97-3650Zmyfq metabolic 2000 panel - Serum or PlasmaBasic Metabolic Panel Lab Routine Stage 3b chronic kidney disease (Multi) Essential hypertension Hyp erparathyroidism, secondary (Multi) Expected: 06/11/2024 (Approximate), Expires: 06/11/2025[facility] Service Area Work Phone: Comment on above:Expected: 06/11/2024 (Approximate), Expires: 06/11/2025Start: 06-11-2024 End: 70-49-8382Ibnltbfjks [Mass/volume] in UrineCreatinine, Urine Random Lab Routine Stage 3b chronic kidney disease (Multi) Essential hypertension Hyperparathyroidism, secondary (Multi) Expected: 06/11/2024 (Approximate), Expires: 06/11/2025[facility] Work Phone: Comment on above:Expected: 06/11/2024 (Approximate), Expires: 06/11/2025Start: 06-11-2024 End: 85-37-7054Qaswsgnljx.intact [Mass/volume] in Serum or PlasmaParathyroid Hormone, Intact Lab Routine Stage 3b chronic kidney disease (Multi) Essential hypertension Hyperparathyroidism, secondary (Multi) Expected: 06/11/2024 (Approximate), Expires: 06/11/2025[facility] Work Phone: Comment on above:Expected: 06/11/2024 (Approximate), Expires: 06/11/2025Start: 06-11-2024 End: 46-05-5651Nyxgtct, Urine RandomProtein, Urine Random Lab Routine Stage 3b chronic kidney disease (Multi) Essential hypertension Hyperparathyroidism, secondary (Multi) Expected: 06/11/2024 (Approximate), Expires: 06/11/2025 [facility] Work Phone: Comment on above:Expected: 06/11/2024 (Approximate), Expires: 06/11/2025Start: 06-11-2024 End: 47-78-2106Fcvrruk encounter kfjmhjozj78/11/2024 10:30 AM EDT Office Visit [facility] [address] [place] [address] Dr [address] [place] [address] Christopher Watkins MD [address] [place] [address] Dr [address] [place] [address] [facility] DrStart: 05-25-2024 End: 18-07-0733Kekubej encounter wbcqhdlyv70/24/2024 10:00 AM EDT Office Visit [facility] [address] [phone] Nael Farias MD [address] [place] [address] (Fax) Chronic pain syndrome; Drug-induced polyneuropathy (CMS/HCC); Spasm; Moderate persistent asthma without complication (CMS/HCC); Morbid obesity (CMS/HCC); BMI 35.0-35.9,adultNOMS CI FM 100Comment on above: Chronic pain syndrome; Drug-induced polyneuropathy (CMS/HCC); Spasm; Moderate persistent asthma without complication (CMS/HCC); Morbid obesity (CMS/HCC); BMI 35.0-35.9,adultStart: 05-12-2024 End: 09-92-5472Nknxmsi encounter nkuiwgbbm50/11/2024 10:30 AM EDT Office Visit [facility] 100 112 [facility] 100 [place] [address] Nael Farias MD [address] [facility] [address] [facility] CI FM 100Start: 05-10-2024 End: 83-80-8680Lvznrps encounter nsimhgtok09/09/2024 8:30 AM EDT Office Visit [facility] [address] [place], [place] [address] [address] Nadeem Morrison DO [address] [place] [address] ArrivedNOUNIVERSITY [facility] ROUTEComment on above:ArrivedStart: 18-94-1340SYOXA-19 Vaccine ( season)COVID-19 Vaccine ( season)[facility]: [facility]2024 COVID-19 Vaccine ( season)COVID-19 Vaccine ( season) [facility]: 82-92-7996ZYFWO-19 Vaccine ( season)COVID-19 Vaccine ( season)[facility] Start: 85-61-9414Lifvlaypu vaccinationInfluenza Vaccine (#1)[facility] Start: 01-05-2024 End: 13-63-4691Mqxmoao encounter bovkbdqqp38/06/2024 10:45 AM EDT Office Visit [facility] [address] [place] [address] Sandra Cole MD [address] [facility], [facility] [address] [place] [address] [facility]: 12-05-2023 End: 48-09-8279Fkwox metabolic 2000 panel - Serum or PlasmaBasic Metabolic Panel Lab Routine Stage 3b chronic kidney disease (CMS/HCC) Essential hypertension E xpected: 12/05/2023 (Approximate), Expires: 12/04/2024[facility] Service Area Work Phone: Comment on above:Expected: 12/05/2023 (Approximate), Expires: 12/04/2024Start: 12-05-2023 End: 58-90-9643Tljbxrgqah [Mass/volume] in UrineCreatinine, Urine Random Lab Routine Stage 3b chronic kidney disease (CMS/HCC) Essential hypertension Expected: 12/05/2023 (Approximate), Expires: 12/04/2024[facility] Work Phone: Comment on above:Expected: 12/05/2023 (Approximate), Expires: 12/04/2024Start: 12-05-2023 End: 05-47-1736Osryoamlaw.intact [Mass/volume] in Serum or PlasmaParathyroid Hormone, Intact Lab Routine Stage 3b chronic kidney disease (CMS/HCC) Essential hypertension Expected: 12/05/2023 (Approximate), Expires: 12/04/2024[facility] Work Phone: Comment on above:Expected: 12/05/2023 (Approximate), Expires: 12/04/2024Start: 12-05-2023 End: 52-10-2470Jyiwbxk, Urine RandomProtein, Urine Random Lab Routine Stage 3b chronic kidney disease (CMS/HCC) Essential hypertension Expected: 12/05/2023 (Approximate), Expires: 12/04/2024[facility] Work Phone: Comment on above:Expected: 12/05/2023 (Approximate), Expires: 12/04/2024Start: 11-27-2023 End: 19-72-2586Gxcrhww encounter eoptinbfa85/28/2024 12:20 PM EDT Office Visit [facility] [address] [place] [address] [place] [address] [place] [address] [facility] DrStart: 10-20-2023 End: 56-02-3563Wneuftz encounter axwshrhzj58/19/2024 3:00 PM EST Office Visit [facility] [address] [facility] [address] [place] [address] Sandra Cole MD [address] [facility], [facility] [address] [place] [address] [facility]: 09-09-2023 End: 17-83-9818Uaxryekwmrmqeog (IgG, IgA, IgM)Immunoglobulins (IgG, IgA, IgM) Lab Routine CVID (common variable immunodeficiency) (CMS/HCC) Expected: 09/09/2023 (Approximate), Expires: 09/09/2024[facility] Service Area Work Phone: comment on above:Expected: 09/09/2023 (Approximate), Expires: 09/09/2024Start: 08-12-2023 End: 20-43-6607JZB W Auto Differential panel - BloodCBC and Auto Differential Lab Routine Hypogammaglobulinemia (CMS/HCC) Expected: 08/12/2023 (Approximate), Expires: 08/11/2024[facility] Service Area Work Phone: Comment on above:Expected: 08/12/2023 (Approximate), Expires: 08/11/2024Start: 08-12-2023 End: 42-97-4250Aimvaebwrzhbq metabolic 2000 panel - Serum or PlasmaComprehensive Metabolic Panel Lab Routine Hypogammaglobulinemia (CMS/HCC) Expected: 08/12/2023 (Approximate), Expires: 08/11/2024[facility] Work Phone: Comment on above:Expected: 08/12/2023 (Approximate), Expires: 08/11/2024Start: 08-12-2023 End: 32-92-9661Hjdmvsh dehydrogenase [Enzymatic activity/volume] in Serum or Plasma by Lactate to pyruvate reactionLactate dehydrogenase Lab Routine Hypogammaglobulinemia (CMS/HCC) Expected: 08/12/2023 (Approximate), Expires: 08/11/2024[facility] Work Phone: Comment on above:Expected: 08/12/2023 (Approximate), Expires: 08/11/2024Start: 99-10-9731XHXDX-19 Vaccine (4 - Pfizer risk series) COVID-19 Vaccine (4 - Pfizer risk series)[facility]: 21-67-7743AQCGD-19 Vaccine ( season)COVID-19 Vaccine ( season)[facility]: 22-59-4864NZVXD-19 Vaccine ( season)COVID-19 Vaccine ( season)[facility]: 89-63-4873ASUDI-19 Vaccine ( season)COVID-19 Vaccine ( season)[facility]: 39-77-9556KKV, Provider: Christopher Watkins, Status: Pen, Time: 12:50 PMFUV, Provider: Christopher Watkins, Status: Pen, Time: 12:50 PM-[facility] 3 DO Work Phone: Start: 55-48-6921OYH, Provider: Christopher Watkins, Status: Pen, Time: 11:10 AMFUV, Provider: Christopher Watkins, Status: Pen, Time: 11:10 AM [facility] 2100 DO Work Phone: start: 31-42-7840ZWZ, Provider: Christopher Watkins, Status: Pen, Time: 1:00 PMFUV, Provider: Christopher Watkins, Status: Pen, Time: 1:00 PMLakeWood [facility] 250 DO Work Phone: Start: 33-43-8906Wkpig panelLipid PanelUnOhioHealth [facility], Cancer [facility]: 18-99-3949Veedfisa mellitus screeningDiabetes ScreeningUnOhioHealth [facility]: 21-48-2383KVQ, Provider: Christopher Watkins, Status: Pen, Time: 2:10 PMFUV, Provider: Christopher Watkins, Status: Pen, Time: 2:10 [facility] 3 DO Work Phone: Start: 73-71-0614UHG, Provider: Christopher Watkins, Status: Pen, Time: 10:00 AMFUV, Provider: Christopher Watkins, Status: Pen, Time: 10:00 AM WD-Gbgqmzpinw-Ggflbqxo [address] DO Work Phone: Start: 56-32-4847Dmibsrssb B Vaccines (1 of 3 - Risk 3-dose series)Hepatitis B Vaccines (1 of 3 - Risk 3-dose series)[facility]: 67-18-6278KBT High Risk: (Elderly (60+) or Population) (1 - Risk 60-74 years 1-dose series)RSV High Risk: (Elderly (60+) or Population) (1 - Risk 60-74 years 1-dose series)[facility]: 92-32-8921VGW patients and/or patients aged 60+ years (1 - 1-dose 60+ series)RSV patients and/or patients aged 60+ years (1 - 1-dose 60+ series)[facility]: 51-19-1365Kvgdmgwtcw Kidney LqhnsonkjKA-Zhheducxm-Zeuhabr Work Phone: Start: 50-03-8336Idvqejdz specific antigen measurement PSA Prostate Cancer ScreeningUnOhioHealth [facility]: 2010 RSV High Risk: (Elderly (60+) or Population) (1 - Risk 50-74 years 1- dose series)RSV High Risk: (Elderly (60+) or Population) (1 - Risk 50- 74 years 1-dose series)[facility]: 1982 DTaP/Tdap/Td Vaccines (1 - Tdap)DTaP/Tdap/Td Vaccines (1 - Tdap)[facility]: 52-08-2650Pgxdjgocv A Vaccines (1 of 2 - Risk 2- dose series)Hepatitis A Vaccines (1 of 2 - Risk 2-dose series)[facility]: 33-91-5346Ttpubrtloqky vaccinationPneumococcal Vaccine (1 of 2 - PCV)[facility]: 11-16-1979 Pneumococcal Vaccine: Pediatrics (0 to 5 Years) and At-Risk Patients (6 to 64 Years) (1 of 2 - PCV)Pneumococcal Vaccine: Pediatrics (0 to 5 Years) and At-Risk Patients (6 to 64 Years) (1 of 2 - PCV)[facility]: 46-44-1340Kfmky screening for proteinCKD: Urine Protein ScreeningACMC Healthcare System [facility]: 48-50-9850Kwhtqt Vaccines (1 of 2)Zoster Vaccines (1 of 2) [facility]: 64-27-4236Cgylxzowfdyk Vaccine: Pediatrics (0 to 5 Years) and At-Risk Patients (6 to 64 Years) (1 - PCV) Pneumococcal Vaccine: Pediatrics (0 to 5 Years) and At-Risk Patients (6 to 64 Years) (1 - PCV)[facility]: 27-54-9168Pzfecrtvtdtp Vaccine: Pediatrics (0 to 5 Years) and At-Risk Patients (6 to 64 Years) (1 of 2 - PCV)Pneumococcal Vaccine: Pediatrics (0 to 5 Years) and At-Risk Patients (6 to 64 Years) (1 of 2 - PCV)[facility]: 72-76-7963TRA screeningHIV ScreeningUnOhioHealth [facility]: 03-17-1961Medicare Annual Wellness VisitMedicare Annual Wellness Visit (AWV)[facility]: 05-99-9542Zitoizvyu for malignant neoplasm of [facility] HospitalaPTT in Platelet poor plasma by Coagulation assayMercy Health Defiance Hospital End: 68-78-1841Wtfomkdljduxq metabolic 2000 panel - Serum or PlasmaComprehensive Metabolic Panel Lab Routine CVID (common variable immunodeficiency) (Multi) Every 3 months for 6 Occurrences starting 07/11/2025 until 01/08/2027[facility] Service Area Work Phone: comment on above:Every 3 months for 6 Occurrences starting 07/11/2025 until 01/08/2027Platelets [#/volume] in BloodSuburban Community Hospital & [facility]-[place] Work Phone: [facility] Defiance HospitalNEGATED: Highlighted row has been ruled out!Planned Goals not pczzbcunfhZO-Sohudombe-Tqwztrh Work Phone: Immunizations Immunization DateImmunizationNotesCare QjukizjqYydovniq79-70-3039hjsjgpryo, injectable, quadrivalent, preservative freeChristopher Prince DO Work Phone: [facility] CenterAobxnltyzn94-28-8935fnuwzubix virus vaccine, unspecified formulationAnirudh Sears MD Work Phone: [facility] Work Phone: [phone] Bivalent Booster Vaccination Nadeem Prince DO Work Phone: noFreeman Health SystemDdfxodjnwf59-71-2724Aukkib Bivalent Booster 12 Years And OlderChristop Prince DO Work Phone: noFreeman Health SystemIxlaqutrpw95-75-5213Ofajmb COVID-19 vaccine, bivalent, age 12 years and older (30 mcg/0.3 mL)Anirudh Sears MD Work Phone: [facility] Work Phone: [phone]imzdx, injectable, quadrivalent, preservative freeAnirudh Sears MD Work Phone: [facility] Work Phone: [phone] Newman Cap UPNR-GxK-2Gbtl Arora MD Work Phone: [facility] Work Phone: [phone]-QfoBLaaw COVID-19 Vacc 30 MCG/0.3ML Intramuscular SuspensionNael Farias Work Phone: [phone]-LlppdBigfork Valley Hospital 3 DO Work Phone: [phone]to, mumps and rubella virus vaccine Nael Brownevelyn Work Phone: [phone]-DktuiBigfork Valley Hospital 3 DO Work Phone: Payers DatePa[facility] CategoryPayerPolicy AH03-36-0338Lpcj-vlb [id number] 1.2.840.511034.1.13.647.2.7.3.389160.31501-01-2022Medicare (Managed Care) 1.2.840.166828.1.13.693.2.7.9.840884.188[id number] 2.16.840.1.332725.3.57[id number] 2.16.840.1.435978.3.57[id number] 2.16.840.1.355593.3.579.2.703012-65-2912Mprfcdj2604594 2.16.840.1.580484.3.57[id number] 2.16.840.1.543503.3.579.2.10822-82-5289Vwvmgtm2656480 2.16.840.1.214359.3.579.2.90344-82-2046Moobftv8150488 2.16.840.1.300915.3.579.2.09602-79-7276Zyrfvvj9022658 2..840.1.156892.3.579.2.16826-32-6064Majeulg7471219 2.16.840.1.894076.3.579.2.23059-11-8128Hgycoul6372407 2..840.1.173200.3.579.2.90731-23-4679Wlabgjt0947101 2..840.1.794599.3.579.2.18745-05-0276Nrccdiw84689235 2..840.1.750229.3.579.2.7[id number] 2.840.1.261989.3.57[id number] 2.840.1.851621.3.579.2.79171-09-9132Qevdhvh643031323 2..840.1.120413.3.579.2.30520-68-6937Ussgypt377442834 2.840.1.067892.3.579.2.50260-49-0571Ieccwzf834946663 2.840.1.571253.3.579.2.5[id number] 2..840.1.871320.3.579.2.73421-55-8020Toyobuy379158323 2.840.1.554455.3.579.2.37156-33-5867Emeuoyc810102441 2..840.1.957277.3.579.2.801856-58-9498Vmlesup958443501 2..840.1.376880.3.579.2.179509-93-7793Ufxatog94376603 2..840.1.447089.3.579.2.872061-64-2889Mskeufg08951277 2.16.840.1.652011.3.579.2.628134-01-2283Kdzxfbo84720478 2..840.1.184064.3.579.2.595814-35-0504Bdiswkb03413472 2..840.1.532965.3.579.2.876002-14-2580Iemoqik5062511 2..840.1.967646.3.579.2.853217-19-6411Shguayr0748231 2..840.1.379642.3.579.2.168274-65-2105Eohzhsj5075768 2..840.1.252040.3.579.2.344917-84-2495Xrhcyjl845161870 2..840.1.447311.3.579.2.615867-55-3045Ivdxqgi405004268 2..840.1.624623.3.579.2.503552-39-3787Qkicbsl023362033 2..840.1.469159.3.579.2.881986-88-3187Fuiwczb162255033 2.840.1.424909.3.579.[id number] Health InsuranceUnited Healthcare [id number] [id number]-[id number]-[id number]-[id number] BC/[id number] g0rpiy09-1181-7o57-2b36-2ggd4180s06lYgagwez11278972 2.16.840.1.805275.3.579.2.531 Social History DateTypeDetailFacilityStart: 08-13-2023 End: 82-14-4899Tddec a smokerNever a smokerENCOMPASS HEALTH HealthcareStart: 64-75-9259Fys [facility]: 07-16-2023 End: 85-06-2760Orpovct smoking status NHISNever smoked tobaccoFostoria City HospitalHistory of tobacco usePassive smokerFostoria City Hospital Work Phone: Start: 07-16-2023 End: 00-45-3909Smkydli use and exposureSmokeless tobacco non-userUnUniversity Hospitals [facility] Work Phone: Start: 08-13-2023 End: 32-95-2435Cewipwu intakeLifetime non-drinker (finding)[facility] Work Phone: Start: 08-13-2023 End: 01-63-4852Iebvstf use panelENCOMPASS HEALTH HealthcareStart: 80-18-4075Bdm Assigned At BirthNot on fileFostoria City Hospital Work Phone: Start: 08-03-2023 End: 86-57-6300Dbzpxzem to SARS-CoV-2 (event)Not sureFostoria City HospitalStart: 05-25-2024 End: 97-79-5407Cniqsnvth beverage intakeEx-drinker (finding)[facility] Within the last year, have you been afraid of your partner or ex-partner?NoNOMS HealthcareAre you now , , , , never or living with a partner?MarriedNOMS HealthcareHow often to you have a drink containing alcohol?NeverNOMS HealthcareStart: 02-31-1728Udg many standard drinks containing alcohol do you [...] cups per day sodaNOMS HealthcareStart: 04-17-2024 End: 47-56-6987Komljcty to SARS-CoV-2 (event)Unable to assessFostoria City HospitalHow hard is it for you to pay [...] material from your doctor or pharmacy [SILS]RarelyNOMS HealthcareStart: 65-43-2660JdmCijk (finding)[facility] HospitalNEGATED: Highlighted row--[facility] Work Phone: Functional Status MyevDanevonlymEzyzitNbwubrey91-10-3936Jhhlpicnkt flgnua084/82 07/11/2025 11:08 AM Flori Baum [place] [facility]11-10-2025 Vital signs80 07/11/2025 11:08 AM Flori Baum MAFostoria City Hospital Work Phone: [phone] 248-563109918449-50-4365Ivsydij Health Questionnaire 2 item (PHQ-2) [Reported][facility] Rczjwrahok61-16-0523Hisqzmb Health Questionnaire 2 item (PHQ-2) [Reported][facility] HealthcareNEGATED: Highlighted rowFunctional performance Functional status health issues are not documented Disease PY-Qiagbszzkybcz-Ckgwfkue [address] Work Phone: Mental Status DateAssessmentResultFacilityNEGATED: Highlighted rowCognitive function [Interpretation]Cognitive status health issues are not documented Disease WM-Sjdpucldtbekq-Bvmggfts [address] Work Phone: Clinical Notes 09-06-2020 to 07-12-2025 Note Date & NiqfJdabWrzwfxsd63-51-0524 Evaluation + Plan note* Assessment & Plan Note - Sandra Cole MD - 07/12/2025 8:47 AM ESTAssociated Problem(s): CKD (chronic kidney disease), stage III ([facility]) Patient's creatinine increased significantly. He currently sees Dr. Watkins. I explained to him hiscreatinine may have increased due to the large protein bolus associated with IVIG infusions. I willcheck his creatinine now and then prior to his next infusion. If his creatinine remains elevated I will discuss his case with his freelance translator and most likely I am going to ask him to change to subcut aneous immunoglobulin. This is more gentle on his kidneys. [facility] Work Phone: 1(105) 205-259111-11-2025 Miscellaneous Notes* Assessment & Plan Note - Sandra Cole MD - 07/12/2025 8:47 AM ESTAssociated Problem(s): CKD (chronic kidney disease), stage III ([facility]) Patient's creatinine increased significantly. He currently sees Dr. Watkins. I explained to him hiscreatinine may have increased due to the large protein bolus associated with IVIG infusions. I willcheck his creatinine now and then prior to his next infusion. If his creatinine remains elevated I will discuss his case with his freelance translator and most likely I am going to ask him to change to subcut aneous immunoglobulin. This is more gentle on his kidneys. * Assessment & Plan Note - Carolyn Morrison - 07/11/2025 11:53 AM ESTAssociated Problem(s): Asthma ([facility]) ACT 22. Sx are under control with no exacerbations. He continues Wixela. He will continue Wixela one inhalation two times a day and albuterol as needed. * Assessment & Plan Note - Carolyn Morrison - 07/09/2025 6:45 PM ESTAssociated Problem(s): CVID (common variable immunodeficiency) ([facility]) Infusions are well-tolerated with no SE or [...] reactions. He will continue Gammagard infusions at [facility] as scheduled. documented in this [facility] Work Phone: 1(294) 888-318911-10-2025 Evaluation + Plan note* Assessment & Plan Note - Carolyn Morrison - 07/11/2025 11:53 AM ESTAssociated Problem(s): Asthma ([facility]) ACT 22. Sx are under control with no exacerbations. He continues Wixela. He will continue Wixela one inhalation two times a day and albuterol as needed. [facility] Work Phone: 1([phone] 205-760811-10-2025 History of Present illness Narrative* Sandra Cole MD - 07/11/2025 11:15 AM EST Subjective Katerina Danielle is a 64 y.o. male who presents for Follow-up and Asthma (ACT 22). Chief Complaint Patient presents with Follow-up Asthma ACT 22 Patient presents for F/U of asthma and CVID. Started IVIG 2018 and Gammagard 10-03-23 at [facility]. Heis receiving 40 grams every month. Since last visit, 01-03-25, patient states his IgG and renal panel were elevated. He had his fgwtnmaf7-57-05 and had his labs drawn 4 days later. He reports at his infusion, the nurse told him there was no order present for blood so he called here and it was ordered. He notes the day before his blood work he drank Celsius and was bouncing off the michel and could not sleep even though he drank itat 1 pm and went to bed at 11:30 pm. The next day, he felt like he had the flu and had his blood work done. He wonders if this caused his aberrant results. He states his is concerned because he has CKD stage 3. Patient follows with Dr. Sears for his lymphoma. He states she wants to release care because he is in remission [address] Christopher Watkins, [employer], for his CKD but he feels he is not listened to. He plans to ask his PCP for another referral. Patient did subcu infusions in the past but switched because he had GI issues and heart stops . Hewas also getting a lot of local reaction. He was on Hyqvia. He reports his Gammagard infusions are going well. He denies SE or infections in the last 6 months. 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 He is seeing a chiropractor and states he does have relief after his adjustments. He saw a neurologist who did test for neuropathy and he referred him to Pain Medicine for consideration of shots in his neck. The Pain Medicine specialist told him because his platelets were borderline and the infection risk was too high so he told him to return to the neurologist and injections are not an option. Objective BP 134/82 Pulse 80 Ht 1.829 m (6') Wt 123 kg (271 lb) BMI 36.75 kg/m Physical Exam Constitutional: Appearance: Normal appearance. HENT: Head: Normocephalic and atraumatic. Right Ear: External ear normal. Left Ear: External ear normal. Nose: No congestion or rhinorrhea. Mouth/Throat: Mouth: Mucous membranes are moist. Eyes: Extraocular Movements: Extraocular movements intact. Conjunctiva/sclera: [...] reactions. He will continue Gammagard infusions at [facility] as scheduled. Asthma ([facility]) ACT 22. Sx are under control with no exacerbations. He continues Wixela. He will continue Wixela one inhalation two times a day and albuterol as needed. CKD (chronic kidney disease), stage III ([facility]) Patient's creatinine increased significantly. He currently sees Dr. Watkins. I explained to him hiscreatinine may have increased due to the large protein bolus associated with IVIG infusions. I willcheck his creatinine now and then prior to his next infusion. If his creatinine remains elevated I will discuss his case with his freelance translator and most likely I am going to ask him to change to subcut aneous immunoglobulin. This is more gentle on his kidneys. I, Brenton Curiel, am scribing for, and in the presence of Sandra Cole MD. ISandra MD, personally performed the services described in the documentation as scribed by Brenton Curiel, in my presence, and confirm it is both accurate and complete. documented in this encounterFostoria City Hospital Work Phone: 1([phone]) 640-504611-10-2025 Instructions* Patient Instructions* Carolyn Morrison - 07/11/2025 11:15 AM EST Have blood work to evaluate renal panels. I will follow up with you with results and further recommendations. Have blood work for renal, hepatic and pre-infusion, IgG level. I will follow up with you with results and further recommendations. Continue Gammagard 40 g IV infusions every 4 weeks at [facility] as scheduled. Send me a message if you have not heard from me. Continue Wixela one inhalation two times a day and albuterol as needed. Follow up in 6 months or sooner if symptoms worsen prior. documented in this encounterFostoria City Hospital Work Phone: [phone] 512-512711-08-2025 Evaluation + Plan note* Assessment & Plan [...] reactions. He will continue Gammagard infusions at [facility] as scheduled. [facility] Work Phone: [phone] 500-532410-14-2025 Telephone encounter Note* Telephone Encounter - Nael Farias MD - 06/14/2025 10:48 AM EDT [facility]Wbpmsnhlqy14-99-9345 Miscellaneous Notes* Telephone Encounter - Nael Farias [...] swelling is completely gone. documented in this encounterParkland Health CenterNtzlvrrwsx86-75-9077 Telephone encounter Note* Telephone Encounter - Elizabeth [...] the morning the swelling is completely gone. [facility] CenterBcnhdpsyvi97-76-4558 History of Present illness Narrative* Nael Farias [...] wound care cholecalciferol (Vitamin D-3) 250 MCG (32774 UT) capsule Take 1 capsule by mouth [...] in stem cell transplants. 4. Morbid obesity ([facility]) Chronic problem that has actually worsening a bit. We discussed the importance of eliminating sugars minimizing simple carbohydrates in the have a formal exercise program. He tends to pick projects and then he overdoes it in his sore for days afterwards. 5. BMI 37.0-37.9, adult Defines the morbid obesity 6. Stage 3b chronic kidney disease ([facility]) - Basic metabolic panel; Future - Basic [...] substitutions may have occurred. documented in this encounterParkland Health CenterXymwyzdbga88-91-7881 History of Present illness Narrative* Nael Farias [...] wound care cholecalciferol (Vitamin D-3) 250 MCG (79900 UT) capsule Take 1 capsule by mouth [...] substitutions may have occurred. documented in this encounterParkland Health CenterRbwvfhapig53-35-5469 History of Present illness Narrative* Nael Farias [...] ON AND 2 CAPSULES ONCE DAILY ON SAT. AND SUN. cetirizine (ZyrTEC) 10 MG tablet Take 10 mg by mouth Daily cholecalciferol (Vitamin D-3) 250 MCG (87506 UT) capsule Take 1 capsule by mouth [...] 20 tablet; Refill: 0 documented in this encounterParkland Health CenterUzllfpwrqp68-36-3695 History of Present illness Narrative* Anirudh Sears [...] Labs/Imaging/Pathology: personally reviewed reports and images in [employer] electronic medical record system. Pertinent results as it related to the plan represented in below in assessment and plan. Assessment/Plan 1. 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 documented in this encounterUnUniversity Hospitals Portage Medical Center Work Phone: 1([phone] 368-180405-05-2025 Evaluation + Plan note* Assessment & Plan Note - Carolyn Morrison - 01/03/2025 10:57 AM EDTAssociated Problem(s): CVID (common variable immunodeficiency) Infusions are going well with no SE or infections x6 months. He had a GI viral illness since that started with profuse diarrhea and emesis but is improving. He will continue his Gammagard infusions as scheduled with quarterly blood work. [facility] Work Phone: 1([phone]) 184-985505-05-2025 Miscellaneous Notes* Assessment & Plan Note - [...] and albuterol as needed. documented in this encounterFostoria City Hospital Work Phone: 1([phone]) 567-275305-05-2025 Evaluation + Plan note* Assessment & Plan Note - Carolyn Morrison - 01/03/2025 10:56 AM EDTAssociated Problem(s): Asthma ACT 19. No flares or exacerbations and Sx are well-controlled on his medications. He will continue Wixela and albuterol as needed. [facility] Work Phone: 1([phone] 691-501605-05-2025 History of Present illness Narrative* Sandra Cole MD - 01/03/2025 10:45 AM EDT Subjective Katerina Danielle is a 64 y.o. male who presents for Follow-up (Act 19). Chief Complaint Patient presents with Follow-up Act 19 Patient presents for F/U of asthma and CVID. Started IVIG 2018 and Gammagard 10-03-23 at [facility]. Since last visit, 07-05-24, patient reports since [...] that showed something on top of his stillaguamish and he was referred to Dr. Sears, [...] at supper. He has never seen a patient ambassador. He has an appointment with his PCP [...] Mood normal. Behavior: Behavior normal. Assessment/Plan Asthma ([facility]) ACT 19. No flares or exacerbations and [...] work. By signing my name below, I, Ronny [...] exam, discussion and plan. documented in this encounterFostoria City Hospital Work Phone: 1([phone]) 358-989005-05-2025 Instructions* Patient Instructions* Carolyn Morrison - 01/03/2025 10:45 AM EDT Continue Wixela one inhalation two times a day and albuterol as needed. Continue Gammagard infusions at [facility] as scheduled. Follow up in 6 months or sooner if symptoms worsen prior. documented in this encounterFostoria City Hospital Work Phone: [phone]) 930-945803-06-2025 History of Present illness Narrative* Nael Farias [...] mouth Daily cholecalciferol (Vitamin D-3) 250 MCG (61479 UT) capsule Take 1 capsule by mouth [...] Do you have a medical power of transactional attorney?: No Objective : BP 124/78 Pulse 92 [...] through a living will, durable power of transactional attorney for healthcare, or other advanced directives. We [...] on November 04, 2024 documented in this encounterParkland Health CenterGcankigprw73-37-1676 History of Present illness Narrative* Christopher Watkins MD - 10/19/2024 2:30 PM EST Katerina Danielle 63 y.o. @WT@ [facility]/Room: [id number]/Room/bed info not found Subjective: The patient is [...] mg/3 mL nebulizer solution Inhale. artificial tears, agzkhhb-kgtahjc-ehstbpef, 0.1-0.3-0.2 % ophthalmic solution Administer into affected [...] Onco-Nephrology Program Division of Nephrology & Hypertension [facility] documented in this encounterFostoria City Hospital Work Phone: [phone]) 677-145012-23-2024 History of Present illness Narrative* Nael Farias [...] mouth Daily cholecalciferol (Vitamin D-3) 250 MCG (36240 UT) capsule Take 1 capsule by mouth [...] or shortness of breath documented in this encounterParkland Health CenterAubxkgphjq60-70-4149 History of Present illness Narrative* Anirudh Sears [...] Labs/Imaging/Pathology: personally reviewed reports and images in [employer] electronic medical record system. Pertinent results as it related to the plan represented in below in assessment and plan. Assessment/Plan 1. 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 Patient will consider 6. Hypogammaglobulinemia: - Restarted [...] This note has been transcribed using a certified medical technician assistant and there is a possibility of unintentional typing misprints. 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 - Clinic Appointment Request; Future - CBC and Auto Differential; Future - Comprehensive metabolic panel; Future - Lactate dehydrogenase; Future Hypogammaglobulinemia (Multi) - Clinic Appointment Request Follow up Anirudh Sears MD Hematology/Oncology [facility] Scribe Attestation By signing my name below, Kirstie Cole , Scribe attest that this documentation has [...] minutes Total: 40 minutes documented in this encounterFostoria City Hospital Work Phone: 1([phone] 326-836611-04-2024 History of Present illness Narrative* Sandra Cole MD - 07/05/2024 10:45 AM EST Subjective Katerina Danielle is a 63 y.o. male who presents for Follow-up (ACT 19). Chief Complaint Patient presents with Follow-up ACT 19 Patient presents for F/U of asthma and CVID. Started Gammagard 224 at [facility]. Started IVIG in 2018. At that time he received home health out of [place] to come to his home for administration. He would experience flulike symptoms with headache drainage and GI upset that would take him approximately a week to recover from. Therefore he discontinued treatment. He was then started on HyQvia around March 2021. He was changed to IVIG at [facility] due to cost. Since last visit, 01-05-24, [...] work ordered Jun [address] Watkins, [employer]. He had an MRI of his head [...] physician who recommended he return to baclofen. Hedid research, started eating an apple a day [...] Mood normal. Behavior: Behavior normal. Assessment/Plan Asthma ([facility]) ACT is 19. He is doing [...] quarterly By signing my name below, I, Marlene [...] exam, discussion and plan. documented in this encounterFostoria City Hospital Work Phone: 1([phone]) 999-664711-04-2024 Instructions* Patient Instructions* Carolyn Morrison - 07/05/2024 10:45 AM EST Continue Wixela one inhalation two times a day. Continue Gammagard infusions at [facility] as scheduled. Follow up in 6 months or sooner if symptoms worsen prior. documented in this encounterFostoria City Hospital Work Phone: [phone] 583-626411-04-2024 Evaluation + Plan note* Assessment & Plan Note - Carolyn Morrison - 07/05/2024 10:36 AM ESTAssociated Problem(s): CVID (common variable immunodeficiency) He is tolerating his Gammagard well. Last IgG was 741. Cost is still an issue, but the patient understands that he has few options. He will continue his current treatment. He is due to for a level quarterly [facility] Work Phone: [phone] 609-126811-04-2024 Miscellaneous Notes* Assessment & Plan Note - [...] inhalation twice a day. documented in this encounterUnUniversity Hospitals [facility]age Medical Center Work Phone: 1([phone]) 247-919511-03-2024 Evaluation + Plan note* Assessment & Plan Note - Carolyn Morrison - 07/04/2024 8:04 PM ESTAssociated Problem(s): Asthma ACT is 19. He is doing well from an asthma standpoint. He will continue the Wixela one inhalation twice a day. [facility] Work Phone: [phone]) 489-176809-30-2024 Telephone encounter Note* Telephone Encounter - Nael Farias MD - 05/31/2024 1:01 PM EDT [facility] CenterBqwvnlppha09-99-6451 Miscellaneous Notes* Telephone Encounter - Nael Farias MD - 05/31/2024 1:01 PM EDT Prescription sent * Telephone Encounter - Paige Aparicio - 05/31/2024 11:37 AM EDT Chad left a message requesting a refill on his Gabapentin. He states he thought he should have a new refill but pharmacy says no. [facility] [place] documented in this encounterParkland Health CenterHfklxraafy39-29-8345 Telephone encounter Note* Telephone Encounter - Paige Aparicio - 05/31/2024 11:37 AM EDT Chad left a message requesting a refill on his Gabapentin. He states he thought he should have a new refill but pharmacy says no. He is [facility] [place]. [facility] Yfdkpeowxr56-18-4241 History of Present illness Narrative* Nael Farias [...] last night. He wants to discuss with EH. Asthma Patient presents for evaluation of dyspnea [...] Comment: Result confirmed on concentration. Performed at: [address] [id number] Delivery Rn: Benjamín Vora PhD, Phone: [phone] Allergies Allergen Reactions Capsaicin Diarrhea Dapsone Other [...] for allergies cholecalciferol (Vitamin D-3) 250 MCG (54180 UT) capsule Take 1 capsule by mouth [...] combined with multi morbidity documented in this encounterParkland Health CenterYaykqtdens33-12-7582 History of Present illness Narrative* Nadeem Morrison, DO - 05/10/2024 8:30 AM EDT Images from the original note were not included. Chief complaint: Pain and muscle spasm Subjective Katerina Danielle, 63 y.o., male Patient presents today [...] 2016 Allergic rhinitis 2016 Anxiety 2016 Asthma ([facility]) Cervical strain CVID (common variable immunodeficiency) ([facility]) Dry eyes Eczema 2016 GERD (gastroesophageal reflux disease) H/O stem cell transplant ([facility]) 12/2017 for B Cell Lymphoma History of being hospitalized B cell Lymphoma complications from Chemo (7days) [facility] 10/2017, 10/2017 History of being hospitalized 12/29/2018 for Chemotherapy 21 days History of being hospitalized 12/2018 radition 6 rounds History of being hospitalized 12/2018 T cell transplants Hyperlipidemia (CMS/HCC) Hypertension (CMS/HCC) Kidney stone on left side Liver disease 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 B cell Lympoma Mass of left kidney Migraines ([facility]/HCC) Neuromuscular disorder ([facility]) 2018 Obesity 2016 Osteoarthritis PE (physical exam), annual 08/18/2018 Piriformis syndrome of right side Plantar fasciitis, bilateral Pneumonia 2018 Pulmonary embolism, bilateral (CMS/HCC) Shift work sleep disorder URI (upper respiratory infection) Visual impairment 2017 Past Surgical History: Procedure Laterality Date CT [...] marrow aspiration and biopsy OTHER SURGICAL HISTORY 2018 Car T-cell transplant TRANSFUSE STEM CELLS Cancer- Stem cell 2017 VASECTOMY 2000 Family History Problem Relation Name Age of [...] Patrick COPD Brother Ryan Heart failure Brother Ryan Alzheimer's disease Maternal Grandmother Gabriella Coelho Mental [...] reflexes are 3+ and symmetric throughout. Coordination: Fuswkg-ie-wbmh testing and rapid alternating movements are normal [...] MRI of the brain in 01/15/2019 at [facility] notes developmental venous anomalies and also notes [...] The patient's oncologist is Dr. Tyson at [facility]. She follows with the patient at [facility] in [facility]. Patient's initial non-Hodgkin's lymphoma was treated [...] plan, and return instructions documented in this [facility]08-27-2024 History of Present illness Narrative* Anirudh Sears MD - 04/27/2024 4:20 PM EDT Consent: Verbal consent was requested and obtained from patient on this date for a telehealth visit. Patient ID: Kaetrina Danielle is a 63 y.o. male. Subjective HPI A telephone visit (audio only) between the patient at home and the provider at [facility] [place] was utilized to provide this telehealth service. [...] Labs/Imaging/Pathology: personally reviewed reports and images in [employer] electronic medical record system. Pertinent results as it related to the plan represented in below in assessment and plan. Assessment/Plan 1. 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 Abdominal pain 3. Muscle cramps - likely [...] could benefit from further evaluation with another internet assessor. Patient will consider 6. Hypogammaglobulinemia: - Restarted [...] This note has been transcribed using a certified medical technician assistant and there is a possibility of unintentional typing misprints. There are no diagnoses linked to this encounter. Anirudh Sears MD Hematology/Oncology [facility] Scribe Attestation By signing my name below, I, Kirstie Ronny Yeh attest that this documentation has been prepared under the direction and in the presence of Anirudh Sears MD. [facility] Work Phone: [phone]) [phone] Evaluation + Plan note* Assessment & Plan Note - Carolyn Rubioildefonso - 01/05/2024 11:13 AM EDTAssociated Problem(s): Asthma ([facility]) ACT is 19. Sx are controlled [...] to see him back in 6 months [facility] Work Phone: 1([phone]) 456-591105-06-2024 Miscellaneous Notes* Assessment & Plan Note - Carolyn Dormanpam - 01/05/2024 11:13 AM EDTAssociated Problem(s): Asthma ([facility]) ACT is 19. Sx are controlled [...] * Assessment & Plan Note - Carolyn Dormanpam - 01/05/2024 11:12 AM EDTAssociated Problem(s): CVID (common variable immunodeficiency) (Multi) Infusions are going well with Tylenol pretreatment. I think pre and post IV hydration would be beneficial. Unfortunately due to insurance constraints the cost is out of control. Therefore, the patient is willing to suffer with the side effects. Is a very unfortunate situation for the patient. Continue Gammagard infusions at [facility]. He will maintain his current dose. His last level in October 2023 was a little low at 699. Nonetheless, the patient has not had any infections and therefore wewill not increase his dose at this time. I would like to check it in 3 months time. documented in this encounterFost[facility] City Hospital Work Phone: [phone]) 553-578805-06-2024 Evaluation + Plan note* Assessment & Plan [...] for the patient. Continue Gammagard infusions at [facility]. He will maintain his current dose. His last level in October 2023 was a little low at 699. Nonetheless, the patient has not had any infections and therefore wewill not increase his dose at this time. I would like to check it in 3 months time. [facility] Work Phone: [phone]) 343-317005-06-2024 History of Present illness Narrative* Sandra Cole MD - 01/05/2024 10:45 AM EDT Subjective Katerina Danielle is a 63 y.o. male who presents for Immunodeficiency. Chief Complaint Patient presents with Immunodeficiency Since last visit, 12-20-22, patient states his infusions at [facility] are going well but pays over $700 [...] for the patient. Continue Gammagard infusions at [facility]. He will maintain his current dose. His last level in October 2023 was a little low at 699. Nonetheless, the patient has not had any infections and therefore wewill not increase his dose at this time. I would like to check it in 3 months time. Asthma ([facility]) ACT is 19. Sx are [...] exam, discussion and plan. documented in this [facility] Work Phone: [phone] Instructions* Patient Instructions* Carolyn Morrison - 01/05/2024 10:45 AM EDT Continue Wixela or Breo one inhalation one time a day. Continue Gammagard infusions at [facility] as scheduled. Follow up in 6 months or sooner if symptoms worsen prior. documented in this [facility] Work Phone: [phone] Evaluation + Plan note* Assessment & Plan [...] staff to send him co-pay assistance through [employer]. According to the patient his primary care recommended albuterol 2 inhalations twice a day as a maintenance and then every 4 hours as needed, but I am concerned about him developing tolerance to the albuterol and not having his underlying inflammation treated with a maintenance medication. Therefore I am going to attempt to get a coveredinhaled corticosteroid for maintenance. [facility] Work Phone: [phone]) [phone] Miscellaneous Notes* Assessment & Plan Note - [...] staff to send him co-pay assistance through [employer]. According to the patient his primary care [...] EST Associated Problem(s): CVID (common variable immunodeficiency) ([facility]) Unfortunately, this is an insurance nightmare. His benefits have changed. I am going to ask my staff to look into what the actual issue is. He is willing to go to IVIG monthly which is probably his best bet. Unfortunately he does live some distance away. We will try to coordinate care with [facility]. Due to his kidney disease I do not really feel that IV is the best option, but under the [facility] IV is better than nothing. documented in this encounterF[facility] City [facility] Work Phone: [phone] 304-664801-10-2024 Evaluation + Plan note* Assessment & Plan Note - Sandra Cole MD - 09/10/2023 8:44 AM ESTAssociated Problem(s): CVID (common variable immunodeficiency) ([facility]) Unfortunately, this is an insurance nightmare. His benefits have changed. I am going to ask my staff to look into what the actual issue is. He is willing to go to IVIG monthly which is probably his best bet. Unfortunately he does live some distance away. We will try to coordinate care with [facility]. Due to his kidney disease I do not really feel that IV is the best option, but under the [facility] IV is better than nothing. [facility] Work Phone: [phone]) 485-200001-09-2024 History of Present illness Narrative* Sandra Cole [...] him 08/12/2023 that he was switched to [facility] who never contacted him despite him calling them twice. When they called him, they told him it would cost $2500 a month and that did not include his pump and supplies. He states his stomach feels better than ever after 2 years on HyQvia compared to tender and sore prior. [facility] did test positive for COVID at [facility] and again on 08/27/2023. He and [...] Judgment normal. Assessment/Plan CVID (common variable immunodeficiency) ([facility]) Unfortunately, this is an insurance nightmare. His benefits have changed. I am going to ask my staff to look into what the actual issue is. He is willing to go to IVIG monthly which is probably his best bet. Unfortunately he does live some distance away. We will try to coordinate care with [facility]. Due to his kidney disease I do not really feel that IV is the best option, but under the [facility] IV is better than nothing. Asthma Patient states the cost of his Arnuity went up dramatically this year. He is unable to afford the $42 a month co-pay. Therefore, I am going to try to change him to a lower cost inhaler. I am also going to ask my staff to send him co-pay assistance through [employer]. According to the patient his primary care [...] exam, discussion and plan. documented in this encounterF[facility] City [facility] Work Phone: [phone] 241-565501-09-2024 Instructions* Patient Instructions* Carolyn Morrison - 09/09/2023 5:15 PM EST Obtain blood work to check IgG, IgA and IgM levels. We will call you with results, recommendations and followup plan. Compare QVAR to Arnuity. Use albuterol only as needed. I will let you know what our plan is for your infusions. documented in this encounterFost[facility] City [facility] Work Phone: [phone]) 531-223112-13-2023 History of Present illness Narrative* Anirudh Sears [...] to Dr. Rodriguez in oncology at [facility] for evaluation. 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 Bone marrow biopsy was done which was negative for involvement with lymphoma . He also underwent an LP with low yield. Because of his meningeal enhancement and location close to MD UROLOGIST, he was treated with hyperCVAD-MA. He received [...] was compared to this patient's previous biopsy ([id number]). The previous biopsydemonstrated areas of necrosis and [...] TP53 mutations. The patient was enrolled on [id number], Venetoclax+RICE. Cycle 1 started 10/29/17. Had tumor [...] pneumonitis. The patient was recently readmitted to [facility] (06/16-06/18/18) for fever and PNA. 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 He completed by mouth Levaquin. The patient was admitted to [facility] (08/18-08/21/18) with a new PE. He was [...] CAR T Cell infusion 01/04/19 with tisagenlecleucel (Funding [employer]) with preparative regimen of fludarabine and cytoxan. [...] history and social history reviewed. Objective Vitals: 12/13/23 1115 BP: 115/78 Pulse: 70 Resp: 16 [...] Labs/Imaging/Pathology: personally reviewed reports and images in [employer] electronic medical record system. Pertinent results as it related to the plan represented in below in assessment and plan. Assessment/Plan 1. 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 Patient will consider 6. Hypogammaglobulinemia: - Restarted [...] This note has been transcribed using a certified medical technician assistant and there is a possibility of unintentional typing misprints. Diagnoses and all orders for this visit: Hypogammaglobulinemia (CMS/HCC) - CBC and Auto Differential; Future - Comprehensive Metabolic Panel; Future - Lactate dehydrogenase; Future - Clinic Appointment Request Follow up; Future Anirudh Sears MD Hematology/Oncology [facility] [place] [facility] Scribe Attestation By signing my name below, I Bernarda Ronny Noe attest that this documentation has been prepared under the direction and in the presence of Anirudh Sears MD. documented in this [facility] Work Phone: [phone]) [phone] History of Present illness Narrative* OPIOID * [...] incontinence,history of IV drug abuse, recent trauma. [facility] Work Phone: [phone] History of Present illness Narrative* OPIOID * [...] incontinence,history of IV drug abuse, recent trauma. [facility] Work Phone: [phone]) 576-436806-22-2023 History of Present illness Narrative* OPIOID * [...] incontinence,history of IV drug abuse, recent trauma. [facility] Work Phone: [phone]) [phone] History of Present illness Narrative* Patient was [...] that point, PCP referred patient to a Asset Analyst at [facility]. * He saw Nohelia Machado DO, Asset Analyst at [facility], did a breathing test and ordered a [...] he does have bloating and tenderness after. FH-Dufbdbgspo-Psgauf[facility]l [employer] DO Work Phone: [phone] History of Present illness Narrative* Patient was [...] that point, PCP referred patient to a Asset Analyst at [facility]. * He saw Nohelia Machado DO, Asset Analyst at [facility], did a breathing test and ordered a [...] he does have bloating and tenderness after. AW-Rmrnhxmgae-Mxlnhhnm 2100 DO Work Phone: [phone] History of Present illness Narrative* Patient was [...] his second COVID booster Friday. * . Sovi 2058 DO Work Phone: [phone]) [phone] History of Present illness Narrative* Patient was [...] his second COVID booster Friday. * . NB-Clqjzoviui-Gnyiuvlm 2100 DO Work Phone: [phone] History of Present illness Narrative* Since last visit, 09/06/2020, patient reports * He had his labs done at [facility] 2 weeks ago and he requested results [...] c/o abdominal pain attributed to transplant in 2017. * He has not been ill after Gamunex in Oct other than a cold in March that took a month to resolve. * He got his COVID vaccine. * In 2015, he had a sphenoid mass that turned out to be a large B cell lymphoma S/P * . Teresa 2100 DO Work Phone: Evaluation noteNo assessment information available [facility] Work Phone: Evaluation note* Diagnosis Hypogammaglobulinemia (CMS/HCC) Unspecified hypogammaglobulinemia documented in this encounter [facility] Work Phone: Evaluation note* Diagnosis Hypogammaglobulinemia (CMS/HCC)- Primary Unspecified hypogammaglobulinemia CVID (common variable immunodeficiency) ([facility]/HCC) Common variable immunodeficiency documented in this encounter [facility] Work Phone: Evaluation note* Diagnosis Stage 3b chronic kidney disease (CMS/HCC)- Primary Essential hypertension Unspecified essential hypertension Hyperparathyroidism, secondary ([facility]/HCC) documented in this encounter [facility] Work Phone: Evaluation note* Diagnosis Asthma, unspecified asthma severity, unspecified whether complicated, unspecified whether persistent (HHS-HCC)- Primary CVID (common variable immunodeficiency) (Multi) Common variable immunodeficiency documented in this encounter [facility] Work Phone: Evaluation note* Diagnosis Onset Date Resolution Status B-cell lymphoma acuteDDD (degenerative disc disease), cervicalacuteMuscle spasmacuteOther chronic painacute [facility] Work Phone: Evaluation note* Diagnosis Chronic pain syndrome 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 Spasm Abnormal involuntary movements Moderate persistent asthma without complication ([facility]) Morbid obesity ([facility]) Morbid obesity BMI 35.0-35.9,adult documented in this encounter [facility] HealthcareEvaluation note* Diagnosis Hypogammaglobulinemia (Multi)- Primary Unspecified hypogammaglobulinemia CVID (common variable immunodeficiency) Common variable immunodeficiency Asthma, unspecified asthma severity, unspecified whether complicated, unspecified whether persistent (HHS-HCC)- Primary CVID (common variable immunodeficiency) Common variable immunodeficiency Stage 3b chronic kidney disease (Multi)- Primary Essential hypertension Unspecified essential hypertension Hyperparathyroidism, secondary (Multi) documented in this encounter [facility] Work Phone: Evaluation note* Diagnosis Onset Date Resolution Status B-cell lymphoma acuteDDD (degenerative disc disease), cervicalacuteMuscle spasmacuteOther chronic painacuteB-cell lymphomaacuteDDD (degenerative disc disease), cervical acuteMuscle spasmacuteOther chronic painacute [facility] Work Phone: Evaluation note* Diagnosis Hypogammaglobulinemia (Multi)- Primary Unspecified hypogammaglobulinemia CVID (common variable immunodeficiency) Common variable immunodeficiency Asthma, unspecified asthma severity, unspecified whether complicated, unspecified whether persistent (HHS-HCC)- Primary CVID (common variable immunodeficiency) Common variable immunodeficiency CVID (common variable immunodeficiency)- Primary Common variable immunodeficiency Asthma, unspecified asthma severity, unspecified whether complicated, unspecified whether persistent (HHS-HCC) documented in this encounter [facility] Work Phone: Evaluation note* Diagnosis Hypogammaglobulinemia [...] (Multi) Unspecified hypogammaglobulinemia documented in this encounter [facility] Work Phone: Evaluation note* Diagnosis Hypogammaglobulinemia (Multi)- Primary Unspecified hypogammaglobulinemia CVID (common variable immunodeficiency) (Multi) Common variable immunodeficiency Asthma, unspecified asthma severity, unspecified whether complicated, unspecified whether persistent (HHS-HCC)- Primary CVID (common variable immunodeficiency) (Multi) Common variable immunodeficiency 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 (Multi)- Primary Hypogammaglobulinemia (Multi) Unspecified hypogammaglobulinemia documented in this encounter [facility] Work Phone: Evaluation note* Diagnosis Cervical radiculopathy- [...] body region (Multi) documented in this encounter [facility] Work Phone: Evaluation note* Diagnosis Encounter for [...] disease (HCC) (CMS/HCC) documented [facility] encounter [facility] [...] without complication (HHS-HCC) documented in this encounter [facility] Work Phone: Evaluation note* Diagnosis Hypogammaglobulinemia [...] solid organs- Primary documented in this encounter [facility] Work Phone: Evaluation note* Diagnosis Hypogammaglobulinemia [...] body region (Multi) documented in this encounter [facility] Work Phone: Evaluation note* Diagnosis Nausea- Primary Nausea alone Moderate persistent asthma without complication (HCC) Drug-induced diffuse interstitial pulmonary fibrosis Chronic pain syndrome Spasm Abnormal involuntary movements documented in this encounter [facility] HealthcareEvaluation note* Diagnosis Edema of both legs- Primary Edema Drug-induced diffuse interstitial pulmonary fibrosis Moderate persistent asthma without complication (HCC) Systolic dysfunction Unspecified heart disease Stage 3b chronic kidney disease ([facility]) documented in this encounter [facility] HealthcareEvaluation note* Diagnosis Chronic pain syndrome- Primary Moderate persistent asthma without complication (HCC) Drug-induced diffuse interstitial pulmonary fibrosis Morbid obesity ([facility]) Morbid obesity BMI 37.0-37.9, adult Stage 3b chronic kidney disease ([facility]) Venous insufficiency Unspecified venous (peripheral) insufficiency documented in this encounter [facility]* Diagnosis Venous insufficiency Unspecified venous (peripheral) insufficiency documented in this encounter [facility] HealthcareEvaluation note* Diagnosis Hypogammaglobulinemia (Multi)- Primary Unspecified hypogammaglobulinemia CVID (common variable immunodeficiency) (Multi) Common variable immunodeficiency Asthma, unspecified asthma severity, unspecified whether complicated, unspecified whether persistent (HHS-HCC)- Primary CVID (common variable immunodeficiency) (Multi) Common variable immunodeficiency CVID (common variable immunodeficiency) (Multi)- Primary Common variable immunodeficiency Asthma, unspecified asthma severity, unspecified whether complicated, unspecified whether persistent (HHS-HCC) CVID (common variable immunodeficiency) (Multi)- Primary Common variable immunodeficiency Moderate persistent asthma without complication (HHS-HCC) CVID (common variable immunodeficiency) (Multi)- Primary Common variable immunodeficiency Moderate persistent asthma without complication (HHS-HCC) Stage 3 chronic kidney disease, unspecified whether stage 3a or 3b CKD (Multi) documented in this encounter [facility] Work Phone: History of Present illness NarrativeThe [...] is currently asymptomatic. No associated symptoms are reported.-[place] [address] DO Work Phone: History of Present illness [...] is currently asymptomatic. No associated symptoms are reported.-[place] [address] DO Work Phone: History of Present illness Narrative* Christopher Watkins MD - 12/05/2023 10:10 AM EDT Katerina Danielle 63 y.o. @WT@ N/Room: [id number]/Room/bed info not found Subjective: The patient is [...] mg/3 mL nebulizer solution Inhale. artificial tears, dfoolvp-jshqzvx-wfyuqifh, 0.1-0.3-0.2 % ophthalmic solution Administer into affected [...] Onco-Nephrology Program Division of Nephrology & Hypertension [facility] documented in this [facility] Work Phone: History of Present illness Narrative* Christopher Watkins MD - 06/11/2024 10:30 AM EDT Katerina Danielle 63 y.o. @WT@ [facility]/Room: [id number]/Room/bed info not found Subjective: The patient is [...] mg/3 mL nebulizer solution Inhale. artificial tears, nsnaipp-wadzgqr-fqvfqxue, 0.1-0.3-0.2 % ophthalmic solution Administer into affected [...] Onco-Nephrology Program Division of Nephrology & Hypertension [facility] documented in this [facility] Work Phone: History of Present illness Narrative* Christopher Watkins MD - 02/17/2025 11:30 AM EDT Katerina Danielle 64 y.o. @WT@ N/Room: [id number]/Room/bed info not found Subjective: The patient is [...] Onco-Nephrology Program Division of Nephrology & Hypertension [facility] [1] Current Outpatient Medications Medication Sig Dispense Refill albuterol 0.63 mg/3 mL nebulizer solution Inhale. artificial tears, qiurxcn-vijnsii-rphbufuc, 0.1-0.3-0.2 % ophthalmic solution Administer into affected [...] medications for this visit. documented in this [facility] Work Phone: Family History Grandparent Name Dates [...] and content) DATE CREATED AUTHOR 01/25/2020 [facility] DATE CREATED AUTHOR AUTHOR'S ORGANIZ ATION 08/22/2022 [facility] [place] DATE CREATED AUTHOR AUTHOR'S ORGANIZ ATION 01/09/2023 [facility] DATE CREATED AUTHOR AUTHOR'S ORGANIZ ATION 02/22/2023 [facility] DATE CREATED AUTHOR AUTHOR'S ORGANIZ ATION 06/05/2023 [facility] DATE CREATED AUTHOR AUTHOR'S ORGANIZ ATION 06/05/2023 [facility] DATE CREATED AUTHOR AUTHOR'S ORGANIZ ATION 04/22/2024 [facility] DATE CREATED AUTHOR AUTHOR'S ORGANIZ ATION 02/12/2025 [facility] DATE CREATED AUTHOR AUTHOR'S ORGANIZ ATION 05/26/2025 [facility] DATE CREATED AUTHOR AUTHOR'S ORGANIZ ATION 07/13/2025 [facility] [employer] Teams (unrecognized sec tion and content) Team Status: Active Member Role Status Dates Nael Farias MD 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 Provider Active Team Status: Inactive Member Role Status Dates Nael Farias MD 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 Provider Active Start: April 15, 2024 End: April 15seun Morrison DOAttaiden ProviderActiveStart: April 15, 2024 End: April 15, 2024 Team Status: Inactive Member Role Status Dates Nael Farias MD 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 Provider Active Victor Hugo Farrell MDAttaiden ProviderActiveTeam MemberRelationshipSpecialtyStart DateEnd Date Nael Farias MD [address] [place] [address] PCP - Jyqoxev89/18/18 Anirudh Sears MD [address] [place] [address] [address] [place] [address] Consulting PhysicianHematology and Ajyyvayh65/13/23Te MemberRelationship SpecialtyStart DateEnd Date Nael Farias MD [address] [place] [address] PCP - Yfgwowv10/18/18 Anirudh Sears MD [address] [place] [address] [address] [place] [address] Consulting PhysicianHematology and Wisknvmz95/13/23 MemberRelationship SpecialtyStart DateEnd Date Nael Farias MD [address] [place], [place] [address] [address] PCP - Ihucdfd61/18/18 Anirudh Sears MD [address] [place] [address] Dr [address] [place] [address] Consulting PhysicianHematology and Dtddfskl97/13/23Te MemberRelationship SpecialtyStart DateEnd Date Nael Farias MD [address] [facility] [place] [address] PCP - Fhmkgst77/18/18 Anirudh Sears MD [address] [place] [address] Dr [address] [place] [address] Consulting PhysicianHematology and Caqqjkbd85/13/23 Christopher Watkins MD [address] [place] [address] [place] [address] Consulting PhysicianNephrology12/08/23 Team Status: Inactive Member Role Status Dates Nael Farias MD 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 Provider Active Start: May 19, 2024 End: May 19, 2024Elia Malik MDAttaiden ProviderActiveStart: May 19, 2024 End: May 19Wild Calverterring ProviderActive Start: May 19, 2024 End: May 19, 2024Team MemberRelationshipSpecialtyStart DateEnd Date Nael Farias MD [address] [place] [address] (Fax) PCP - [place]09/01/21 Nael Farias MD [address] [place] [address] PCP - GeneralFamily Medicine01/31/23 Nohelia Machado DO [address] [place] [address] Referring PhysicianPulmonary Disease10/09/23 Christopher Watkins MD [address] [place] [address] [place] [address] Referring PhysicianNephrology10/09/23 [place] [address] [place] [address] Referring PhysicianAllergy and Immunology10/09/23 Anirudh Sears Referring PhysicianOncolog09/01/18Team MemberRelationshipSpecialtyStart DateEnd Date Nael Farias MD [address] [place] [address] PCP - [place]09/01/21 Nael Farias MD [address] [place] [address] PCP - GeneralFamily Medicine01/31/23 Nohelia Machado DO [address] [place] [address] Referring PhysicianPulmonary Disease10/09/23 [place] [address] [facility] [place] [address] Referring PhysicianNephrology10/09/23 [place] [address] [place] [address] Referring PhysicianAllergy and Immunology10/09/23 Anirudh Sears Referring PhysicianOncolog09/01/18Team MemberRelationshipSpecialtyStart DateEnd Date Nael Farias MD [address] [place] [address] PCP - Ygvkszt72/18/18 Anirudh Sears MD [address] [place] [address] Dr [address] [place] [address] Consulting PhysicianHematology and Ydpxonrh75/13/23 [place] [address] [facility] [address] [place] [address] Consulting PhysicianNephrology12/08/23 Team Status: Inactive Member Role Status Dates Nael Farias MD 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 Provider Active Start: June 16, 2024 End: June 16, 2024Elia Malik MDAttending ProviderActiveStart: June 16, 2024 End: June 16, 2024Team MemberRelationshipSpecialtyStart DateEnd Date Nael Farias MD [address] [place] [address] (Fax) PCP - [place]09/01/21 Nael Farias MD [address] [place] [address] (Fax) PCP - GeneralFamily Medicine01/31/23 Nohelia Machado DO [address] [place] [address] Referring PhysicianPulmonary Disease10/09/23 Christopher Watkins MD [address] [place] [address] [place] [address] Referring PhysicianNephrology10/09/23 [place] [address] [place] [address] Referring PhysicianAllergy and Immunology10/09/23 Anirudh Sears Referring PhysicianOncolog09/01/18Team MemberRelationshipSpecialtyStart DateEnd Date Nael Farias MD [address] [place] [address] PCP - Hluklqi93/18/18 Anirudh Sears MD [address] [place] [address] Dr [address] [place] [address] Consulting PhysicianHematology and Xutrtveb77/13/23 Christopher Watkins MD [address] [place] [address] Dr [address] [place], [place] [phone] Consulting PhysicianNephrology12/08/23 Sandra Cole MD [address] [facility] [address] [place] [address] Referring PhysicianAllergy and Qjspkcdavx37/24/24Team MemberRelationship SpecialtyStart DateEnd Date Nael Farias MD [address] [place] [address] (Fax) PCP - [place] [place]09/01/21 Nael Farias MD [address] [place] [address] PCP - GeneralFamily Medicine01/31/23 Nohelia Machado DO [address] [place] [address] Referring PhysicianPulmonary Disease10/09/23 Christopher Watkins MD [address] [place] [address] [place] [address] Referring PhysicianNephrology10/09/23 [place] [address] [place] [address] Referring PhysicianAllergy and Immunology10/09/23 Anirudh Sears Referring PhysicianOncolog09/01/18Team MemberRelationshipSpecialtyStart DateEnd Date Nael Farias MD [address] [place] [address] PCP - Wcbtxpe92/18/18 Anirudh Sears MD [address] [place] [address] Dr [address] [place] [address] Consulting PhysicianHematology and Xjkozsoq82/13/23 Christopher Watkins MD [address] [place] [address] Dr [address] [place] [address] Consulting PhysicianNephrology12/08/23 Sandra Cole MD [address] [facility] [place] [address] [place] [address] Referring PhysicianAllergy and Kxjchdysnn08/24/24Team MemberRelationship SpecialtyStart DateEnd Date Nael Farias MD [address] [place] [address] PCP - Pjcxajm82/18/18 Anirudh Sears MD [address] [place] [address] [facility] 1 [place] [address] Consulting PhysicianHematology and Rfsvatfy14/13/23 Christopher Watkins MD [address] [place] [address] [facility] 3 [place] [address] Consulting PhysicianNephrology12/08/23Te MemberRelationshipSpecialtyStart Date End Date Nael Farias MD [address] [place] [address] PCP - [place]09/01/21 Nael Farias MD [address] [place] [address] PCP - GeneralFamily Medicine01/31/23 Nohelia Machado DO [address] [place] [address] Referring PhysicianPulmonary Disease10/09/23 [place] [address] [place] [address] Referring PhysicianNephrology10/09/23 [place] [address] [place] [address] Referring PhysicianAllergy and Immunology10/09/23 Anirudh Sears Referring PhysicianOncolog09/01/18Team MemberRelationshipSpecialtyStart DateEnd Date Nael Farias MD [address] [place] [address] (Fax) PCP - [place]09/01/21 Nael Farias MD [address] [place] [address] PCP - [facility] Medicine01/31/23 Nohelia Machado DO [address] [place] [address] Referring PhysicianPulmonary Disease10/09/23 [place] [address] [place] [address] Referring PhysicianNephrology10/09/23 [place] [address] [place] [address] Referring PhysicianAllergy and Immunology10/09/23 Anirudh Sears Referring PhysicianOncolog09/01/18Team MemberRelationshipSpecialtyStart DateEnd Date Nael Farias MD [address] [facility] [place] [address] (Fax) PCP - [place]09/01/21 Nael Farias MD [address] [place] [address] [facility]/23 Nohelia Machado DO [address] [place] [address] Referring PhysicianPulmonary Disease10/09/23 Christopher Watkins MD [address] [place] [address] [place] [address] Referring PhysicianNephrology10/09/23 [place] [address] [place], [facility] Referring PhysicianAllergy and Immunology10/09/23 Anirudh Sears Referring PhysicianOncolog09/01/18Team MemberRelationshipSpecialtyStart DateEnd Date Nael Farias MD [address] [place] [address] (Fax) PCP - [place]09/01/21 Nael Farias MD [address] [place] [place] [address] PCP - GeneralFamily Medicine01/31/23 Nohelia Machado DO [address] [place] [address] Referring PhysicianPulmonary Disease10/09/23 Christopher Watkins MD [address] [place] [address] [place] [address] Referring PhysicianNephrology10/09/23 [place] [address] [address] [place], [facility] Referring PhysicianAllergy and Immunology10/09/23 Anirudh Sears Referring PhysicianOncology1Team MemberRelationshipSpecialtyStart DateEnd Date Nael Farias MD [address] [place] [address] (Fax) PCP - [place]09/01/21 Nael Farias MD [address] [place] [address] (Fax) PCP - GeneralFamily Medicine01/31/23 Nohelia Machado DO [address] [place] [address] Referring PhysicianPulmonary Disease10/09/23 Christopher Watkins MD [address] [place] [address] [place] [address] Referring PhysicianNephrology10/09/23 [place] [address] [place] [address] Referring PhysicianAllergy and Immunology10/09/23 Anirudhrandal Sears Referring PhysicianOncolog09/01/18Team MemberRelationshipSpecialtyStart DateEnd Date Nael Farias MD [address] [place] [address] (Fax) PCP - [place]09/01/21 Nael Farias MD [address] [place] [address] (Fax) PCP - GeneralFamily Medicine01/31/23 Nohelia Machado DO [address] [place] [address] Referring PhysicianPulmonary Disease10/09/23 Christopher Watkins MD [address] [place] [address] [place] [address] Referring PhysicianNephrology10/09/23 [place] [address] [place] [address] Referring PhysicianAllergy and Immunology10/09/23 Anirudh [place] Referring PhysicianOncolog09/01/18Team MemberRelationshipSpecialtyStart DateEnd Date Nael Farias MD [address] [place] [address] PCP - Jhhnizj93/18/18 Anirudh Sears MD [address] [place] [address] [address] [place] [address] Consulting PhysicianHematology and Rvxnhxkb53/13/23 Christopher Watkins MD [address] [place] [address] [address] [place] [address] Consulting PhysicianNephrology12/08/23 Sandra Cole MD [address] [facility] [place] [address] [place] [address] Referring PhysicianAllergy and Fyfjzuzpnk82/24/24Team MemberRelationship SpecialtyStart DateEnd Date Nael Farias MD [address] [place] [address] PCP - [place]09/01/21 Nael Farias MD [address] [place] [address] PCP - GeneralFamily Medicine01/31/23 Nohelia Machado DO [address] [place] [address] Referring PhysicianPulmonary Disease10/09/23 Christopher Watkins MD [address] [place] [address] [place] [address] Referring PhysicianNephrology10/09/23 [place] [address] [place] [address] Referring PhysicianAllergy and Immunology10/09/23 Anirudh Sears Referring PhysicianOncolog09/01/18Team MemberRelationshipSpecialtyStart DateEnd Date Nael Farias MD [address] [place] [address] (Fax) PCP - [place]09/01/21 Nael Farias MD [address] [place] [address] (Fax) PCP - GeneralFamily Medicine01/31/23 Nohelia Machado DO [address] [place] [address] Referring PhysicianPulmonary Disease10/09/23 Christopher Watkins MD [address] [place] [address] [place] [address] Referring PhysicianNephrology10/09/23 [place] [address] [place] [address] Referring PhysicianAllergy and Immunology10/09/23 Anirudhrandal Sears Referring PhysicianOncology1Team MemberRelationshipSpecialtyStart DateEnd Date Nael Farias MD [address] [place] [address] (Fax) PCP - [place]09/01/21 Nael Farias MD [address] [place] [address] (Fax) PCP - GeneralFamily Medicine01/31/23 Nohelia Machado DO [address] [place] [address] Referring PhysicianPulmonary Disease10/09/23 Christopher Watkins MD [address] [place] [address] [place] [address] Referring PhysicianNephrology10/09/23 [place] [address] [place] [address] Referring PhysicianAllergy and Immunology10/09/23 Anirudh Sears Referring PhysicianOncology1Team MemberRelationshipSpecialtyStart DateEnd Date Nael Farias MD [address] [place] [address] PCP - Lwtkkua09/18/18 Anirudh Sears MD [address] [place] [address] [address] [place] [address] Consulting PhysicianHematology and Vfjdcdig44/13/23 Christopher Watkins MD [address] [place] [address] [address] [place] [address] Consulting PhysicianNephrology12/08/23 Sandra Cole MD [address] [facility] [place] [address] [place] [address] Referring PhysicianAllergy and Nhvbiyosjw30/24/24Te MemberRelationship SpecialtyStart DateEnd Date Nael Farias MD [address] [place] [address] PCP - Dihdwnq92/18/18 Anirudh Sears MD [address] [place] [address] [address] [place] [address] Consulting PhysicianHematology and Mnqqzgcz27/13/23 Christopher Watkins MD [address] [place] [address] [address] [place] [address] Consulting PhysicianNephrology12/08/23 Sandra Cole MD [address] [facility] [place] [address] [place] [address] Referring PhysicianAllergy and Ofcdyuzirp35/24/24Team MemberRelationship SpecialtyStart DateEnd Date Nael Farias MD [address] [place] [address] (Fax) PCP - [place]09/01/21 Nael Farias MD [address] [place] [address] (Fax) PCP - GeneralFamily Medicine01/31/23 Nohelia Machado DO [address] [place] [address] Referring PhysicianPulmonary Disease10/09/23 [place] [address] [place] [address] Referring PhysicianNephrology10/09/23 [place] [address] [place] [address] Referring PhysicianAllergy and Immunology10/09/23 Anirudh Sears Referring PhysicianOncology1Team MemberRelationshipSpecialtyStart DateEnd Date Nael Farias MD [address] [place] [address] (Fax) PCP - [place]09/01/21 Nael Farias MD [address] [place] [address] (Fax) PCP - GeneralFamily Medicine01/31/23 Nohelia Machado DO [address] [place] [address] Referring PhysicianPulmonary Disease10/09/23 Christopher Watkins MD [address] [place] [address] [place] [address] Referring PhysicianNephrology10/09/23 [place] [address] [place], [facility] Referring PhysicianAllergy and Immunology10/09/23 Anirudh [place] Referring PhysicianOncology1Team MemberRelationshipSpecialtyStart DateEnd Date Nael Farias MD [address] [place] [address] (Fax) PCP - [place]09/01/21 Nael Farias MD [address] [place] [address] (Fax) PCP - Generalmily Medicine01/31/23 Nohelia Machado DO [address] [place] [address] Referring PhysicianPulmonary Disease10/09/23 Christopher Watkins MD [address] [place] [address] [place] [address] Referring PhysicianNephrology10/09/23 [place] [address] [address] [place], [facility] Referring PhysicianAllergy and Immunology10/09/23 Anirudhrandal Sears Referring PhysicianOncology1Team MemberRelationshipSpecialtyStart DateEnd Date Nael Farias MD [address] [place] [address] (Fax) PCP - [place]09/01/21 Nael Farias MD [address] [place] [address] (Fax) PCP - GeneralFamily Medicine05/09/25 Nohelia Machado DO [address] [place] [address] Referring PhysicianPulmonary Disease10/09/23 Christopher Watkins MD [address] [place] [address] [place] [address] Referring PhysicianNephrology10/09/23 [place] [address] [place] [address] Referring PhysicianAllergy and Immunology10/09/23 Anirudhrandal Sears Referring PhysicianOncolog09/01/18Team MemberRelationshipSpecialtyStart DateEnd Date Nael Farias MD [address] [address] (Fax) PCP - [place]09/01/21 Nael Farias MD [address] [address] (Fax) PCP - GeneralFamily Medicine05/09/25 Nohelia Machado DO [address] [place] [address] Referring PhysicianPulmonary Disease10/09/23 Christopher Watkins MD [address] [place] [address] [place] [address] Referring PhysicianNephrology10/09/23 [place] [address] [place] [address] Referring PhysicianAllergy and Immunology10/09/23 Anirudhrandal Sears Referring PhysicianOncology1Team MemberRelationshipSpecialtyStart DateEnd Date Nael Farias MD [address] [address] (Fax) PCP - [place]09/01/21 Nael Farias MD [address] [place] [address] (Fax) PCP - GeneralFamily Medicine05/09/25 Nohelia Machado DO [address] [place] [address] Referring PhysicianPulmonary Disease10/09/23 Christopher Watkins MD [address] [place] [address] [place] [address] Referring PhysicianNephrology10/09/23 [place] [address] [address] [place], [facility] Referring PhysicianAllergy and Immunology10/09/23 Anirudh Sears Referring PhysicianOncology1Team MemberRelationshipSpecialtyStart DateEnd Date Nael Farias MD [address] [place] [address] (Fax) PCP - [place]09/01/21 Nael Farias MD [address] [place] [address] (Fax) PCP - GeneralFamily Medicine05/09/25 Nohelia Machado DO [address] [place] [address] Referring PhysicianPulmonary Disease10/09/23 Christopher Watkins MD [address] [place] [address] [place] [address] Referring PhysicianNephrology10/09/23 [place] [address] [place] [address] Referring PhysicianAllergy and Immunology10/09/23 Anirudhrandal Sears Referring PhysicianOncology1Team MemberRelationshipSpecialtyStart DateEnd Date Nael Farias MD [address] [place] [address] (Fax) PCP - [place]09/01/21 Nael Farias MD [address] [place] [address] (Fax) PCP - GeneralFamily Medicine05/09/25 Nohelia Machado DO [address] [place] [address] Referring PhysicianPulmonary Disease10/09/23 Christopher Watkins MD [address] [place] [address] [place] [address] Referring PhysicianNephrology10/09/23 [place] [address] [place] [address] Referring PhysicianAllergy and Immunology10/09/23 Anirudhrandal Sears Referring PhysicianOncology1Team MemberRelationshipSpecialtyStart DateEnd Date Nael Farias MD [address] [place] [address] (Fax) PCP - [place] MIN09/01/21 Nael Farias MD [address] [place] [address] (Fax) PCP - GeneralFamily Medicine05/09/25 Nohelia Machado DO [address] [place] [address] Referring PhysicianPulmonary Disease10/09/23 Christopher Watkins MD [address] [place] [address] [place] [address] Referring PhysicianNephrology10/09/23 [place] [address] [place] [address] Referring PhysicianAllergy and Immunology10/09/23 Anirudh Sears Referring PhysicianOncolog09/01/18Team MemberRelationshipSpecialtyStart DateEnd Date Nael Farias MD [address] [place] [address] PCP - Tzncodx64/18/18 [place] [address] [facility] [address] [place], [place] [address] Consulting PhysicianHematology and Fhlffonh29/13/23 [place] [address] [facility] [address] [place] [address] Consulting PhysicianNephrology12/08/23 Sandra Cole MD [address] [facility], [facility] [address] [place] [address] Referring PhysicianAllergy and Zswfpkqhiz41/24/24 Goals (unrecognized section and content) Goals may be documented in a n alternate sectionGoals may be documented in an alternate sectionGoals may be documented in an alternate sectionGoals may be documented in an alternate sectionGoals may be documented in an alternate section Reason for Visit (unrecogniz ed section and content) ZkelqzCjxklwopBwrjaf-ynHnmshuNmnxbkpiCkvvny-euFpuyjcsmxobbnFuuof like to discuss new medicationReasonCommentsImmunodeficiencyReasonCommentsAsthmaPainReason CommentsFollow-upACT 19ReasonCommentsPainAsthmaReasonCommentsAnnual ExamReason CommentsFollow-upAct 19ReasonCommentsFollow-upChronic Kidney DiseaseReason CommentsEdemaReasonOnset DateCommentsCare Vghhuimbpfuu29/14/2025ReasonComments Follow-upAsthmaACT 22 FOR RECORDS PERTAINING TO PATIENTS WHO ARE [...] BE BASED ON THE PRIMARY CLINICAL RECORDS. [facility] [employer] [facility]. provides no warranty or guarantee of the accuracy or completeness of information in this document.
[2025-07-27 09:40] LABS: Glucose Urine UA NEGATIVE (NEGATIVE)
[2025-07-27 10:40] LABS: Anion Gap 10.8; Blood Urea Nitrogen 32.0 mg/dL (7.0-18.0); Calcium 9.6 mg/dL (8.5-10.1); Carbon Dioxide 29.7 mmol/L (21.0-32.0); Chloride 107 mmol/L (98-107); Estimated GFR (African America 42 (>=60 mL/min/1.73m^2); Estimated GFR (Non-African Ame 34 (>=60 mL/min/1.73m^2); Glucose 109 mg/dL (74-106); Potassium 4.5 mmol/L (3.5-5.1); Sodium 143 mmol/L (136-145)
== END 2025-08-01 08:31 | disposition home or self-care (01) ==
LOC: LAB 08:40
PROVIDERS: PCP Family Medicine; Visit Provider Internal Medicine
DX: I12.9 Hypertensive chronic kidney disease with stage 1 through stage 4 chronic kidney disease, or unspecified chronic kidney disease (principal); N18.32 Chronic kidney disease, stage 3b; N25.81 Secondary hyperparathyroidism of renal origin; C83.30 Diffuse large B-cell lymphoma, unspecified site
CPT/HCPCS: 36415; 80048; 81003; 83970

== ENCOUNTER 2025-08-09 09:33 | Outpatient (OUT) | payer MEDICARE, SELFPAY ==
--- OUTSIDE RECORDS SUMMARY | 2025-08-09 09:52 | XMS_ITS | CCD ---
Author Organization [facility] Care Team Providers Care Training And Development Coordinator Name Role Phone Christopher Watkins Unavailable Unavailable Nael Farias Unavailable Unavailable Nael Farias Unavailable Unavailable Unavailable MD Nael Farias 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 Provider [phone] MD Victor Hugo Farrell Attending Provider [phone] Andrea, Dr. Nael Brand 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 Unava [...] DR GARCIA 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 Unavailable MISC, DR MATTEHW Consulting Unavailable HEMEYER ., DR GARCIA Primary [...] Sanon Attending Unavailable Hemeyer, Dr. Nael Brand [facility] Unava ilable Sears, Anirudh C Admitting Unavailable Sears, Anirudh C Attending Unavailable Hemeyer, Dr. Nael Brand [facility] Unava ilable Sears, Anirudh C Admitting Unavailable Sears, Anirudh C Attending Unavailable Hemeyer, Dr. Nael Brand [facility] Unava ilable Hemeyer, Dr. Nael Brand [facility] Unava ilable Roland, Dr. White Attending Unavailable Roland, Dr. White Referring Unavailable Hemeyer, Dr. Nael Brand [facility] Unava ilable Roland, Dr. White Attending Unavailable Roland, Dr. White Referring Unavailable Hemeyer, Dr. Nael Brand [facility] Unava ilable Roland, Dr. White Attending Unavailable Roland, Dr. White Referring Unavailable Hemeyer, Dr. Nael Brand [facility] Unava ilable Stephanieyer, Dr. Nael Brand Referring Unava ilable Kelsey, Dr. Sandra Lopez Attending Unav ailable Hemeyer, Dr. Nael Brand [facility] Unava ilable Sears, Anirudh C Attending Unavailable Sears, Anirudh C Admitting Unavailable Hemeyer Nael GRACE 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 Provider Anirudh Sears MD Unavailable Christopher Watkins MD Unavailable MD Nael Farias 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 Provider DO Nadeem Morrison Attending Provider [phone] Nael Farias 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 Unavailable Nadeem Morrison Attending Unavailab Nadeem Lopez Admitting Unavailab Nael Garcia MD Unavailable Nael Farias MD 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 Provider Nohelia Machado DO Unavailable Unavailable Christopher Watkins MD Unavailable Unavailable Sandra Cole MD Unavailable Nael Fraias MD 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 Provider Nael Farias MD Unavailable Nael Farias MD 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 Provider Sandra Cole MD Unavailable Nael Farias MD Unavailable Nael Farias MD 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 Provider Nael Farias MD 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 Provider [phone] Anirudh Sears MD Unavailable Christopher Watkins MD Unavailable Sandra Cole MD Unavailable SEARS, ANIRUDH C Attending Unavailable HEMENAEL WEEKS [...] Christopher Unavailable Unavailable Sandra Cole MD Unavailable SANDRA COLE Attending Unavailable HEMEEVELYN EDSCOTT Partida 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 Unavailable ROLAND, CHRISTOPHER Attending Unavailable HEMEEVELYN, EDSCOTT Partida 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 Unavailable ROLAND, CHRISTOPHER Attending Unavailable HEMEEVELYN, EDSCOTT Partida 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 Unavailable SANDRA COLE Attending Unavailable NAEL FARIAS 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 Unavailable Christopher Watkins MD Unavailable Sandra Cole MD Unavailable Allergies Allergy ClassificationReported Allergen(s)Allergy TypeDate of OnsetReaction(s) Facility (20 sources)Dapsone; Translations: [dapsone]Drug Hhwknvu16-58-3383[facility]ijfzhatK[facility] ([facility] sources)Prochlorperazine; Translations: [Compazine][facility]rug [facility]The [facility] (20 sources)Sulfamethoxazole / Trimethoprim; Translations: [Bactrim DS TABS]Drug Ctepgbc84-63-4993Igcis, Itching, FntrFY-Ufboyysqzplqn-Vrosnuxn B102 Work Phone: (20 sources)voriconazole; Translations: [voriconazole]Drug Vxfofcv92-42-5459 [facility] 3 DO Work Phone: (1 source)PenicillinsAllergy to xoksouavl05-51-2481WteyyjxCinc[facility] (20 sources)Prochlorperazine; Translations: [prochlorperazine]Drug Allergy 19-66-2028Qpfno, Shortness of breathH[facility] (6 sources)Sulfamethoxazole; Translations: [sulfamethoxazole]Drug Allergy 87-78-3730PgwfvclCincinnati VA Medical Center (18 sources)Trimethoprim; Translations: [trimethoprim]Drug Rhwuirt77-60-2552 [facility] (1 source)CapsaicinDrug AllergyChillicothe [facility] (1 source)Sulfamethoxazole / TrimethoprimDrug AllergyChillicothe [facility] Rep[facility] (12 sources)Capsaicin; Translations: [CAPSAICIN]Drug Wqycvwe77-45-0182OpqsodbfOhio [facility] (20 sources)CapsaicinDrug Mrdfmqh97-41-0721VdxuuxnfABYD Healthcare (20 sources)levoFLOXacin; Translations: [LEVOFLOXACIN]Drug Mrfhnea97-82-7608[facility] (2 sources)Sulfamethoxazole / Trimethoprim; Translations: [SULFAMETHOXAZOLE-TRIMETHOPRIM]Drug Wdkootd65-84-1378UBSelect [facility] (13 sources)CephalexinDrug Ndmwpnz09-88-6087FnbgmZAZT Healthcare (7 sources)VoriconazoleAllergy to -13-7287ENUM [facility] Medications Current Medications MedicationDrug Class(es)DatesSig (Normalized)Sig (Original)[id number] 200 actuat albuterol 0.09 mg/actuat metered dose inhaler (20 sources)beta2-Adrenergic AgonistStart: 08-23-2024 End: 00-30-6208raoodozxq (2.5 MG/3ML) 0.083% nebulizer solution Indications: Moderate persistent asthma without complication (HCC) Take 3 mL (2.5 mg) by nebulization 4 (four) times a day as needed for wheezing or shortness of breath 08/23/2024 08/23/2025 ActiveStart: 08-23-2024 End: 21-29-1825xtud 2 puff(s) by inhalation every four hours for wheezing albuterol HFA 90 mcg/act inhaler Indications: Moderate persistent asthma without complication (HCC)Inhale 2 puffs every 4 (four) hours if needed for wheezing or shortness of breath 54 g 1 02/22/2025tiveStart: 86-43-7027Ktpmgnqnf Sulfate (2.5 MG/3ML) 0.083% Inhalation Nebulization Solution Quantity: 375 Refills: 0 Ordered: 01-Jul-2022 DO Start : 01-Jul-2022 ActiveStart: 61-09-4450yrkc 2.5 mg by inhalation every six hoursAlbuterol Sulfate Active 2.5 MG INHALATION Q6H June 13, 2022 12:00amStart: 43-11-6721cjqd 1 puff(s) by inhalation every four hoursAlbuterol Sulfate Active 1 PUFF INHALATION Q4H June 13, 2022 12:00amStart: 43-23-0939cbacdpmjv 0.63 mg/3 mL nebulizer solution Inhale. 06/13/2020 ActiveStart: 75-81-2730upve 1 [IU] by inhalation every four to six hours as neededAlbuterol Sulfate 0.63 MG/3ML Inhalation Nebulization Solution USE 1 UNIT DOSE IN NEBULIZER EVERY 4TO 6 HOURS NEEDED. Quantity: 0 Refills: 0 Ordered: 13-Jun-2020 DO Start : 13-Jun-2020 Activebaclofen 10 mg oral tablet (20 sources)gamma-Aminobutyric Acid-ergic AgonistStart: 02-07-2025 End: 54-89-1577qzklglha (Lioresal) 10 MG tablet Indications: Spasm Take by mouth; 1/2 tablet in the morning, 1/2 tablet at lunchtime, and 1 tablet in the evening. 180 tablet 1 02/22/2025 ActiveStart: 03-25-2024 End: 37-15-4279ewjhlxrs (Lioresal) 10 MG tablet Indications: Spasm Take by mouth; 1/2 tablet in the morning, 1/2 tablet at lunchtime, and 1 tablet in the evening. 180 tablet 1 08/23/2024 ActiveStart: 09-29-2023 End: 98-26-4253doyz 10 mg by mouth twice dailyBaclofen Discontinued 10 MG PO Twice daily May 19, 2024 12:00am May 19, 2024 4:34pmtake 1 tablet by mouth three times dailybaclofen (Lioresal) 10 mg tablet Take 1 tablet (10 mg) by mouth 3 times a day. Activebreath-actuated 120 actuat beclomethasone dipropionate 0.08 mg/actuat metered dose inhaler (1 source)CorticosteroidStart: 09-09-2023 End: 24-62-1900yezebljuxyvtiv dipropionate (Qvar) 80 mcg/actuation inhaler Indications: CVID (common variable immunodeficiency) (CMS/HCC) Inhale 2 Inhalations 2 times a day. Rinse mouth out after inhalation. 10.6 g3 09/09/2023 09/08/2024 Activecalcitriol 0.93379 mg oral capsule (20 sources)Vitamin D3 AnalogStart: 92-35-8024avat 2 capsules by mouth once daily, then take 1 capsule by mouth once dailycalcitriol (Rocaltrol) 0.25 mcg capsule Indications: Hyperparathyroidism (Multi) TAKE TWO CAPSULES BY MOUTH EVERY DAY OVER THE WEEKENDS, AND TAKE ONE CAPSULE DAILY ON THE OTHER DAYS, DIRECTED. 117capsule 3 03/10/2025 ActiveStart: 89-64-6903xlreqqytmi (Rocaltrol) 0.25 mcg capsule Indications: Hyperparathyroidism (Multi) TAKE 2 CAPSULES OVER THE WEEKENDS AND 1 CAPSULE THE OTHER DAYS 117 capsule 3 04/15/2024 ActiveStart: 70-58-0834beey 0.5 ug by mouth twice dailyCalcitriol Active 0.5 MCG PO Twice daily June 13, 2022 12:00am 2xW; weekendsStart: 07-28-2019 End: 98-46-3110snfy 0.25 ug by mouth once dailyCalcitriol Discontinued 0.25 MCG PO Daily June 13, 2022 12:00am May 19, 2024 3:58pm 5xweek-takes on weekdaysStart: 27-26-7652Bcwwtryoiz 0.25 MCG Oral Capsule TAKE 2 CAPSULES OVER THE WEEKENDS AND 1 CAPSULE THE OTHER DAYS Quantity: 117 Refills: 3 Ordered: 07-Apr-2023 Christopher Watkins MD Start : 28-Jul-2019 ActiveStart: 36-59-4162xlqt 1 capsule by mouth every other dayCalcitriol 0.25 MCG Oral Capsule One cap every other day. Quantity: 15 Refills: 10 Christopher Watkins MD Start : 28-Jul-2019 Active cefuroxime 500 mg oral tablet (4 sources)Cephalosporin AntibacterialStart: 11-04-2024 End: 43-71-3613hpqc 1 tablet by mouth in the morningcefuroxime (Ceftin) 500 MG tablet Indications: Acute non-recurrent maxillary sinusitis Take 1 tablet (500 mg) by mouth in the morning and 1 tablet (500 mg) before bedtime. Do all this for 14 days. 28tablet 11/04/2024 11/18/2024 ActiveStart: 10-31-2022 End: 85-94-0822ynrl 1 tablet by mouth twice dailycefuroxime (Ceftin) 500 mg tablet Take 1 tablet (500 mg) by mouth 2 times a day. 0 10/31/2022 09/09/2023 Discontinued (Therapy completed)cephalexin 500 mg oral capsule (1 source)Cephalosporin Antibacterial End: 93-36-1076yfbe 1 capsule by mouth twice dailycephalexin (Keflex) [...] Pseudoephedrine (4 sources)alpha-Adrenergic Agonist, Histamine-1 Receptor AntagonistStart: 99-16-9277guvn 1 tablet by mouth once daily, then [...] 3 mg/ml ophthalmic solution (13 sources)Plasma Volume Core Inserter, Non-Standardized Chemical AllergenStart: 72-03-0268qqrtjwcedv tears, uolemzr-ggwdfhv-gtpxwvnh, 0.1-0.3-0.2 % ophthalmic solution Administer into affected eye(s) 4 times a day as needed. 02/27/2019 Ybohoa24 actuat fluticasone furoate 0.1 mg/actuat dry powder inhaler (16 sources)CorticosteroidStart: 45-69-4564utft 1 puff(s) by mouth once daily Arnuity Ellipta 100 mcg/actuation inhaler INHALE 1 PUFF BY MOUTH DAILY (rinse mouth after use) 0 04/09/2023 ActiveStart: 49-62-6938ygrz 1 puff(s) by mouth once dailyArnuity Ellipta 100 MCG/ACT Inhalation Aerosol Powder Breath Activated INHALE 1 PUFF BY MOUTH DAILYQuantity: 30 Refills: 0 Ordered: 06-Nov-2022 DO Start : 09-Oct-2022 ActiveStart: 70-58-0821fgmw 1 spray(s) nasal route once daily Fluticasone Propionate 50 MCG/ACT Nasal Suspension USE 1 SPRAY IN EACH NOSTRIL ONCE DAILY. Quantity: 1 Refills: 3 DO Start : 13-Mar-2018 Activefluticasone / salmeterol (20 sources)Corticosteroid, beta2-Adrenergic AgonistStart: 02-07-2025 End: 46-43-3252erzh 1 puff(s) by mouth twice dailyfluticasone propion-salmeteroL (Wixela Inhub) 500-50 mcg/dose diskus inhaler Indications: Asthma, unspecified asthma severity, unspecified whether complicated, unspecified whether persistent ([facility]) Inhale 1 puff 2 times a day. Rinse mouth with water after use to reduce aftertaste and incidence of candidiasis. Do not swallow. 180 each 2 06/15/2025 12:19 PM EDT 02/07/2025 09/13/2025 ActiveStart: 02-07-2025 End: 47-77-4562sbnf 1 puff(s) by mouth twice dailyfluticasone propion-salmeteroL (Wixela Inhub) 500-50 mcg/dose diskus inhaler Indications: Asthma, unspecified asthma severity, unspecified whether complicated, unspecified whether persistent (HHS-HCC) Inhale 1 puff 2 times a day. Rinse mouth with water after use to reduce aftertaste and incidence of candidiasis. Do not swallow. 180 each 2 02/07/2025 05/08/2025 ActiveStart: 82-19-0115jnwd 1 puff(s) by mouth twice daily fluticasone propion-salmeteroL (Wixela Inhub) 500-50 mcg/dose diskus inhaler Indications: Asthma, unspecified asthma severity, unspecified whether complicated, unspecified whether persistent (HHS-HCC) Inhale 1 puff 2 times a day. Rinse mouth with water after use to reduce aftertaste and incidence of candidiasis. Do not swallow. 180 each 2 05/31/2024 ActiveStart: 05-31-2024 End: 09-00-3724lgcw 1 puff(s) by mouth twice dailyfluticasone propion-salmeteroL (Wixela Inhub) 500-50 mcg/dose diskus inhaler Indications: Asthma, unspecified asthma severity, unspecified whether complicated, unspecified whether persistent (HHS-HCC) Inhale 1 puff 2 times a day. Rinse mouth with water after use to reduce aftertaste and incidence of candidiasis. Do not swallow. 180 each 2 05/31/2024 08/29/2024 ActiveStart: 12-26-2023 End: 52-39-9990dhep 1 puff(s) by mouth twice dailyfluticasone propion-salmeteroL (Wixela Inhub) 500-50 mcg/dose diskus inhaler Indications: Asthma, unspecified asthma severity, unspecified whether complicated, unspecified whether persistent (HHS-HCC) Inhale 1 puff 2 times a day. Rinse mouth with water after use to reduce aftertaste and incidence of candidiasis. Do not swallow. 60 each 11 12/26/2023 12/25/2024 ActiveStart: 09-15-2023 End: 45-15-3659qdzc 1 puff(s) by mouth twice dailyfluticasone propion-salmeteroL [...] powder Inhale 1 puff Daily Active End: 16-43-1001hgea 1 puff(s) by mouth twice dailyfluticasone propion-salmeteroL (Advair Diskus) 500-50 mcg/dose diskus inhaler Inhale 1 puff 2 timesa day. Rinse mouth with water after use to reduce aftertaste and incidence of candidiasis. Do not swallow. 0 12/05/2023 Discontinued (Med List Cleanup)30 actuat fluticasone furoate 0.2 mg/actuat / vilanterol 0.025 mg/actuat dry powder inhaler (1 source)Corticosteroid, beta2-Adrenergic AgonistStart: 12-17-2023 End: 47-67-1079bolb 1 puff(s) by inhalation once dailyfluticasone furoate- vilanteroL (Breo Ellipta) 200-25 mcg/dose inhaler Indications: Asthma, unspecifi ed asthma severity, unspecified whether complicated, unspecified whether persistent ([facility]) Inhale 1 puff once daily. 3 each 12/17/2023 01/07/2024 Discontinued (Formulary change)fluticasone propion/salmeterol (WIXELA INHUB INHL) (1 source)fluticasone propion/salmeterol (WIXELA INHUB INHL) Inhale. 0 Active gabapentin 300 mg oral capsule (20 sources)Anti-epileptic AgentStart: 05-19-2024 End: 57-57-7791eqwt 1 capsule by mouth in the morninggabapentin (Neurontin) 100 MG capsule Indications: Chronic pain syndrome Take 1 capsule (100 mg) bymouth in the morning and in the evening 180 capsule 1 02/22/2025 08/21/2025 ActiveStart: 48-48-6403yxrh 1 capsule by mouth twice dailygabapentin (Neurontin) 100 mg capsule Take 1 capsule (100 mg) by mouth 2 times a day. 01/04/2024 ActiveStart: 02-20-2023 End: 20-46-7723tkqd 1 capsule by mouth twice daily at bedtimegabapentin (Neurontin) 100 mg capsule TAKE 1 CAPSULE BY MOUTH TWICE DAILY in addition to the 300mg AT BEDTIME 0 02/25/2023 08/13/2023 Discontinued (Med List Cleanup) Start: 06-13-2020 End: 60-79-8558urau 1-2 capsules by mouth at bedtime, then take 1-2 capsules by mouth in the eveninggabapentin (Neurontin) 300 MG capsule Indications: Chronic pain syndrome , Spasm Take 1-2 capsules (300-600 mg) by mouth at bedtime Take 1 to 2 capsules in the evening 180 capsule 1 02/22/2025 08/21/2025 ActiveStart: 07-08-0470Wbhbryopkp 300 MG Oral Capsule Quantity: 0 Refills: 0 Ordered: 13-Jun-2020 DO Start : 13-Jun-2020 ActiveHomeopathic Products (Leg Cramp Relief) sublingual tablet (20 sources)Homeopathic Products (Leg Cramp Relief) sublingual tablet Place 1 tablet under the tongue if gujiorHxbvvb002 ml immunoglobulin g, human 100 mg/ml injection (20 sources)Human Immunoglobulin GStart: 10-03-2023 End: 91-36-6689kjofdy globulin, human, (Gammagard Liquid) infusion Indications: CVID (common variable immunodeficiency) Infuse 400 mL (40 g) into a venous catheter every 30 (thirty) days. 400 mL 11 10/03/2023 10/02/2024 ActiveImmune Globulin, Human, 40 GM/400ML solution Inject 400 mL as directed every 30 (thirty) days Activelosartan potassium 25 mg oral tablet (10 sources)Angiotensin 2 Receptor BlockerStart: 06-13-2022 End: 87-29-4121cjjw 25 mg by mouth once dailyLosartan Active 25 MG PO Daily June 13, 2022 12:00amMagnesium (18 sources) End: 34-49-8989jnxympvwv 200 mg tablet Take 1 tablet (200 mg) by mouth. 01/07/2024 Discontinued (Med List Cleanup)magnesium 200 mg tablet Take 1 tablet (200 mg) by mouth. 0 Active End: 23-06-1560stqr 1 tablet by mouth once dailymagnesium 200 mg tablet Take 1 tablet (200 mg) by mouth once daily. 0 08/13/2023 Discontinued (Med List Cleanup)take 1 tablet by mouth once dailyMagnesium 200 MG Oral Tablet TAKE 1 TABLET DAILY DIRECTED. Quantity: 0 Refills: 0 Ordered: 08-Nov-2021 DO Active magnesium gluconate 250 mg oral tablet (20 sources)Start: 86-37-0426ocgt 250 mg by mouth twice dailyMagnesium Gluconate [...] capsule (20 sources)Proton Pump InhibitorStart: 02-09-2016 End: 13-97-6307bnsvurickw (PriLOSEC) [address] capsule Take by mouth once daily. 02/09/2016 ActiveStart: 83-68-5539Gkqbggwbtt 20 MG Oral Capsule Delayed Release Quantity: 0 Refills: 0 Ordered: 09-Feb-2016 DO Start : 09-Feb-2016 Activetake 1 tablet by mouth before mealtimeomeprazole OTC (PriLOSEC OTC) 20 MG EC tablet Take 20 mg by mouth in the morning. Take before meals. Do not crush, chew, or split.. ActiveoxyCODONE hydrochloride 5 mg oral tablet (20 sources)Opioid AgonistStart: 11-12-2018 End: 88-10-0828vpmRUICTJ (Roxicodone) 5 mg immediate release tablet Take [...] mg extended release oral tablet (20 sources)Start: 00-12-8698iwpf 99 mg by mouth once dailyPotassium Active 99 MG PO Daily June 13, 2022 12:00amPotassium 99 MG tablet 1 (one) time each day at the same time. Activepotassium citrate 99 mg oral tablet (13 sources)take 1 tablet by mouth once dailypotassium citrate 99 mg capsule Take 1 tablet by mouth once daily. Activesildenafil 20 mg oral tablet (17 sources)Phosphodiesterase 5 InhibitorStart: 11-05-2023 End: 61-19-5277qyjvytcnmm (Revatio) 20 MG tablet Indications: Erectile dysfunction due to diseases classified elsewhere Take 1 to 5 tablets as needed daily 90 tablet 1 11/05/2023 11/04/2024 Discontinued (Therapy completed) spironolactone 25 mg oral tablet (7 sources)Aldosterone AntagonistStart: 05-25-2025 End: 57-05-3797mzwn 1 tablet by mouth once dailyspironolactone (Aldactone) 25 MG tablet Indications: Venous insufficiency Take 1 tablet (25 mg) by mouth Daily 90 tablet 06/14/2025 09/12/2025 ActivetiZANidine 4 mg oral tablet (14 sources)Central alpha-2 Adrenergic AgonistStart: 05-19-2024 End: 65-10-3830cvxv 2 mg by mouth in the morningtiZANidine (Zanaflex) 4 MG tablet Take 2 mg by mouth in the morning and 2 mg before bedtime. 05/19/2024 08/23/2024 Discontinued (Therapy completed)Start: 05-19-2024 End: 73-07-2761cfJPHqslww (Zanaflex) 4 mg capsule 2 mg once daily. 05/19/2024 08/16/2024 Discontinued (Med List Cleanup)Start: 92-04-3324nvbr 0.5-1 tablets by mouth twice daily as neededTizanidine Active 0 PO Twice daily 60 30 May 19, 2024 12:00am 1/2-1 tablet orally twice daily PRN;valsartan 160 mg oral tablet (20 sources)Angiotensin 2 Receptor BlockerStart: 10-19-2024 End: 68-61-0732ouap 1 tablet by mouth once dailyvalsartan (Diovan) 160 MG tablet Take 160 mg by mouth Daily 10/19/2024 ActiveStart: 01-29-2023 End: 44-40-6732fped 1 tablet by mouth once dailyvalsartan (Diovan) 80 mg tablet Indications: Benign essential HTN TAKE 1 TABLET BY MOUTH DAILY 90 tablet 3 07/26/2024 10/19/2024 Discontinued (Therapy completed) Completed/Discontinued Medications MedicationDrug Class(es)DatesSig (Normalized)Sig (Original)acetaminophen 325 mg oral capsule (18 sources)Start: 01-16-2021 End: 62-65-8457vviqeccnumytu (TylenoL) 325 mg capsule Take by mouth. 0 01/16/2021 09/09/2023 Discontinued (Med List Cleanup)Start: 65-62-8844Rppqgpu 325 MG Oral Capsule take two tablets 20 minutes prior to infusion Quantity: 10 Refills: 0 Ordered: 16-Jan-2021 Sandra Cole MD Start : 16-Jan-2021 Active Start: 26-55-9786Apvmfbfozgzmr 325 MG Oral Tablet TAKE 2 TABLETS BY MOUTH 20 MIN PRIOR TO INFUSION Quantity: 10 Refills: 0 Ordered: 17-Jan-2021 DO Start : 16-Jan-2021 Completeacyclovir 400 mg oral tablet (7 sources)Herpesvirus Nucleoside Analog DNA Polymerase Inhibitor, Herpes Simplex Virus Nucleoside Analog DNA Polymerase Inhibitor, Herpes Zoster Virus Nucleoside Analog DNA Polymerase InhibitorStart: 26-98-7180ilan 1 tablet by mouth twice dailyAcyclovir 400 MG Oral Tablet TAKE 1 TABLET TWICE DAILY. Quantity: 0 Refills: 0 Ordered: 69-Iqo-0604YH Start : 17-Dec-2017 Active amLODIPine 5 mg oral tablet (12 sources)Dihydropyridine Calcium Channel BlockerStart: 03-12-2022 End: 21-65-0121iooq 1 tablet by mouth once dailyamLODIPine (Norvasc) 5 mg tablet Take 1 tablet (5 mg) by mouth once daily. 0 03/12/2022 09/09/2023 Discontinued (Therapy completed)cefdinir 300 mg oral capsule (2 sources)Cephalosporin AntibacterialStart: 11-20-2022 End: 80-70-0314pocm 1 capsule by mouth twice dailycefdinir (Omnicef) 300 mg capsule Take 1 capsule (300 mg) by mouth 2 times a day. 0 11/20/2022 09/09/2023 Discontinued (Therapy completed)cholecalciferol 0.125 mg oral tablet (20 sources)Vitamin DStart: 12-03-2017 End: 10-62-2574ureu 1 tablet by mouth once dailyCholecalciferol (Vitamin D3) (Vitamin D3) 5,000 unit Tablet Discontinued 5000 UNIT PO Daily December 03, 2017 12:00am June 13, 2022 8:53amtake 1 capsule by mouth in the morning cholecalciferol (Vitamin D-3) 250 MCG (00976 UT) capsule Take 1 capsule by mouth in the morning. Activetake 2 tablets by mouth once dailycholecalciferol (Vitamin D3) 5,000 Units tablet Take 2 tablets (250 mcg) by mouth once daily. Active End: 63-26-9210wdqs 1 tablet by mouth once dailycholecalciferol (Vitamin D3) 50 MCG (2000 UT) tablet Take 1 tablet (50 mcg) by mouth once daily. 07/05/2024 Discontinued (Med List Cleanup)chondroitin sulfates 200 mg / glucosamine hydrochloride 250 mg oral tablet (5 sources)Start: 12-03-2017 End: 40-90-0813blwi 2 tablets by mouth once dailyGlucosamine-Chondroitin (Osteo Bi-Flex) 250-200 mg Tablet Discontinued 2 TAB PO Daily December 03, 2017 12:00am June 13, 2022 8:53amdiphenhydrAMINE hydrochloride 25 mg oral tablet (20 sources)Histamine-1 Receptor AntagonistStart: 01-16-2021 End: 41-37-2576ftlzqdllcxSBNKQ (Benadryl Allergy) 25 mg tablet Take by mouth. 01/16/2021 07/05/2024 Discontinued (Med List Cleanup)Start: 99-85-4261Vrtuemay Allergy 25 MG Oral Tablet take 20 minutes prior to infusion Quantity: 10 Refills: 0 Ordered: 16-Jan-2021 Sandra Cole MD Start : 16-Jan-2021 Active ergocalciferol 87099 unt oral capsule (5 sources)Provitamin D2 CompoundVitamin D (Ergocalciferol) 1.25 MG (82579 UT) Oral Capsule Refills: 0 DO ActiveVitamin D (Ergocalciferol) 91679 UNIT Oral Capsule Refills: 0 Activefluconazole 200 mg oral tablet (3 sources)Azole AntifungalStart: 10-03-2022 End: 45-62-5645ywuu 1 tablet by mouth once dailyfluconazole (Diflucan) 200 mg tablet Take 1 tablet (200 mg) by mouth once daily. 0 10/03/2022 09/09/2023 Discontinued (Therapy completed)Start: 29-46-5485mspa 1 tablet by mouth once dailyFluconazole 200 MG Oral Tablet take 1 tablet by mouth once daily for 10 days Quantity: 14 Refills: 0 Ordered: 20-Mar-2021 DO Start : 20-Mar-2021 CompleteHyaluronidase (12 sources)EndoglycosidaseStart: 04-23-2023 End: 95-19-1186HpUtbo 5 gram /50 mL (10 %) solutionStart: 57-88-2162EhWgrh 5 gram /50 mL (10 %) solutionStart: 30-44-3901Xax-Hyaluronidase,Recombinant (Hyqvia) 5 gram /50 mL (10 %) Solution Active 50 ML SUBCUT Q28D June 13, 2022 12:00amStart: 11-06-2021 End: 09-74-8125kzjufc globulin-hyaluronidase (HyQvia) 2.5 gram /25 mL (10 %) solution Inject under the skin. 0 11/06/2021 09/09/2023 Discontinued (Cost of medication)Start: 11-06-2021 End: 99-32-9145TyFssg 20 gram /200 mL (10 %) solution Inject under the skin. 0 11/06/2021 09/09/2023 Discontinued (Cost of medication)Start: 14-62-5350hvgppw globulin-hyaluronidase (HyQvia) 2.5 gram /25 mL (10 %) solution Inject under the skin. 0 11/06/2021 ActiveStart: 66-77-7164WtHukc 20 gram /200 mL (10 %) solution Inject under the skin. 0 11/06/2021 Active End: 57-83-5233qqckmu globulin-hyaluronidase (HyQvia) 2.5 gram /25 mL (10 %) solution Inject under the skin. 0 09/09/2023 Discontinued (Cost of medication) immune globulin-hyaluronidase (HyQvia) 2.5 gram /25 mL (10 %) solution Inject under the skin. 0 Activehydrocortisone 25 mg/ml topical cream (17 sources)CorticosteroidStart: 01-17-2021 End: 13-10-1689ychradmtauekzz 2.5 % cream Apply topically. Apply to affected areas 2-3 times daily 0 01/17/2021 09/09/2023 Discontinued (Cost of medication) Start: 63-97-3085Yjwvwmheknzwse 2.5 % External Cream APPLY 2-3 TIMES DAILY TO AFFECTED AREA(S). Quantity: 1 Refills:0 Ordered: 17-Jan-2021 Sandra Cole MD Start : 17-Jan-2021 ActiveHyqvia 2.5 GM/25ML Subcutaneous Kit (13 sources)Start: 61-73-6446Azsuao 2.5 GM/25ML Subcutaneous Kit evry 28 days Quantity: 0 Refills: 0 Ordered: 08-Nov-2021 DO Start : 06-Nov-2021 ActiveStart: 97-94-9358Jjrtwt 2.5 GM/25ML Subcutaneous Kit Quantity: 0 Refills: 0 Ordered: 08-Nov-2021 DO Start : 06-Nov-2021 ActiveHyqvia 20 GM/200ML Subcutaneous Kit (6 sources)Start: 36-08-0803Moqnci 20 GM/200ML Subcutaneous Kit Quantity: 0 Refills: 0 Ordered: 08-Nov-2021 DO Start : 06-Nov-2021 ActivelevoFLOXacin 750 mg oral tablet (2 sources)Quinolone AntimicrobialStart: 11-19-2022 End: 40-19-6507ackf 1 tablet by mouth once dailylevoFLOXacin (Levaquin) 750 mg tablet TAKE 1 TABLET BY MOUTH ONCE DAILY FOR 10 DAYS 0 11/19/2022 09/09/2023 Discontinued (Therapy completed)lidocaine 25 mg/ml / prilocaine 25 mg/ml topical cream (11 sources)Antiarrhythmic, Amide Local AnestheticStart: 17-55-8415Xfhypgbgo- Prilocaine 2.5-2.5 % External Cream APPLY TO AREA AND COVER WITH saran wrap 1 HOUR BEFOREAPPOINTMENT. Quantity: 1 Refills: 0 Ordered: 19-Aug-2022 Sandra Cole MD Start : 15-Aug-2022 ActiveStart: 69-04-6891Qegunuzne-Prilocaine 2.5- 2.5 % External Cream Quantity: 30 Refills: 0 Ordered: 12-Oct-2021 DO Start: 12-Oct-2021 Completeloratadine 10 mg oral tablet (5 sources)Start: 12-03-2017 End: 82-33-9933opjp 1 tablet by mouth once dailyLoratadine (Claritin) 10 mg Tablet Discontinued 10 MG PO Daily December 03, 2017 12:00am June 13, 2022 8:53ammethocarbamol 750 mg oral tablet (19 sources)Muscle RelaxantStart: 12-19-2021 End: 68-64-6613Ylqyiyrwlqblm Discontinued 750 MG PO As Directed June 13, 2022 12:00am May 19, 2024 3:57pmondansetron 4 mg oral tablet (20 sources)Serotonin-3 Receptor AntagonistStart: 02-22-2025 End: 79-64-3346htlq 1 tablet by mouth every eight hours as needed for nausea and vomiting and nausea and nauseaondansetron (Zofran) 4 MG tablet Indications: Nausea Take 1 tablet (4 mg) by mouth every 8 (eight) hours if needed for nausea or vomiting for up to 7 days 20 tablet 02/22/2025 03/01/2025 ExpiredStart: 06-13-2020 End: 66-06-9782pdrurfsijfp (Zofran) 4 mg tablet Take by mouth. 0 06/13/2020 08/13/2023 Discontinued (Med List Cleanup)Start: 02-83-8993Iawdhf 4 MG Oral Tablet Quantity: 0 Refills: 0 Ordered: 13-Jun-2020 DO Start : 13-Jun-2020 Active Start: 89-55-9423qqonhzomfop (Zofran) 8 mg tablet Take by mouth every 8 hours if needed. 02/01/2019 Activepot bicarb/potassium cit/ca (POTASSIUM BICARBONATE ORAL) (2 sources) End: 73-32-4766mcg bicarb/potassium cit/ca (POTASSIUM BICARBONATE ORAL) Take 99 mg by mouth. 0 09/09/2023 Discontinued (Therapy completed)pot bicarb/potassium cit/ca (POTASSIUM BICARBONATE ORAL) Take 99 mg by mouth. 0 ActivepredniSONE 50 mg oral tablet (2 sources)Start: 46-65-2893cipiipSTZF 50 MG Oral Tablet take 30 minutes prior to infusion Quantity: 10 Refills: 0 Ordered: 16-Jan-2021 Sandra Cole MD Start : 16-Jan-2021 ActivetraMADol hydrochloride 50 mg oral tablet (5 sources)Opioid AgonistStart: 12-03-2017 End: 94-39-3422vlum 50 mg by mouth once dailyTramadol Discontinued 50 MG PO Daily December 03, 2017 12:00am June 13, 2022 8:53amtraZODone hydrochloride 50 mg oral tablet (5 sources)Serotonin Reuptake InhibitorStart: 12-03-2017 End: 66-89-7767qclk 50 mg by mouth at bedtimeTrazodone Discontinued 50 MG PO Bedtime December 03, 2017 12:00am June 13, 2022 8:53amZinc (6 sources) End: 52-84-7701celn 0.5 tablet by mouth once dailyzinc 50 MG tablet Take 0.5 tablets by mouth 1 (one) time each day 05/25/2024 Discontinued (Therapy c ompleted)take 0.5 tablet by mouth once dailyzinc 50 MG tablet Take 0.5 tablets by mouth 1 (one) time each day ActiveZINC CITRATE (5 sources) End: 54-98-9875MSXY CITRATE ORAL Take by mouth. 07/05/2024 Discontinued (Med List Cleanup)ZINC CITRATE ORAL Take by mouth. ActiveZINC CITRATE ORAL Take by mouth. 0 Active Problems Active Problems Problem ClassificationProblemDateDocumented DateEpisodic/Chronic Administrative/social admission (2 sources)Advance directive discussed with patient; Translations: [Other specified counseling]93-89-4935OradjwqxMdrdwx (20 sources)Asthma; Translations: [Unspecified asthma, uncomplicated]Onset: 668304-32-8920PhfxlptCabbnwvt (20 sources)Nuclear senile cataract; Translations: [Senile nuclear sclerosis] Onset: 676004-69-3807HbiruaoOkwxcmx kidney disease (20 sources)Chronic kidney disease stage 3; Translations: [Chronic kidney disease, Stage III (moderate)]Onset: 133118-77-3010QwwnmwlZqzpvpb kidney disease (3 sources)Chronic kidney disease; Translations: [CHRONIC KIDNEY DISEASE STAGE 3B]Onset: 82-37-9024Rjneutehyxy and hemorrhagic disorders (20 sources)Platelet count below reference range; Translations: [Thrombocytopenia, unspecified]Onset: 401693-91-2953PychuzyFncbtnuehskd of device; implant or graft (20 sources)Graft versus host disease; Translations: [Frstc-kpjqhv-oyaj disease, unspecified]ChronicDeficiency and other anemia (1 source)Antineoplastic chemotherapy induced pancytopenia; Translations: [Antineoplastic chemotherapy induced pancytopenia]Onset: 26-46-1510Qzrqhyv Disorders of lipid metabolism (20 sources)Mixed hyperlipidemia; Translations: [Mixed hyperlipidemia]Onset: 191688-18-8320CmzayarTdizbwaomv disorders (20 sources)Gastroesophageal reflux disease; Translations: [Gastro-esophageal reflux disease without esophagitis]Onset: 607741-41-1812IajwtmaZkfypkebc hypertension (20 sources)Benign essential hypertension; Translations: [Benign essential hypertension]Onset: 105993-62-4564XtmnpusFjfsdjvqdzljm symptoms and ill- defined conditions (20 sources)H/O: kidney disease; Translations: [Urinary symptoms ]Onset: 57-01-4883NpkfwovuIyuesnjt; including migraine (20 sources)Refractory migraine without aura; Translations: [Migraine without aura, intractable, with status migrainosus]Onset: hronic Headache; including migraine (5 sources)Headache; Translations: [Head ache]EpisodicImmunity disorders (20 sources)Hypogammaglobulinemia; Translations: [Hypogammaglobulinemia, unspecified]Onset: 15-63-8208VizjojeCqqdbto and fatigue (20 sources)Fatigue; Translations: [Chronic fatigue, unspecified]Onset: 364472-50-6004DgnjccrZqznlo and vomiting (2 sources)Nausea; Translations: [Nausea]29-56-1708LiuldmjiFhi-Hodgkin`s lymphoma (20 sources)Diffuse non-Hodgkin's lymphoma, large cell (clinical); Translations: [Other malignant lymphomas, unspecified site, extranodal and solid organ sites] Onset: 47-76-4106JksfqaqNun-Hodgkin`s lymphoma (20 sources)History of B-cell lymphoma; Translations: [Personal history of other lymphatic and hematopoietic neoplasms]EpisodicOsteoarthritis (20 sources)Osteoarthritis; Translations: [Unspecified osteoarthritis, unspecified site]Onset: 966581-23-3200SbkqbqfDoavl and ill-defined heart disease (20 sources)Systolic dysfunction; Translations: [Heart disease, unspecified] Onset: 232702-11-9510OuovqdxHgeva circulatory disease (20 sources)H/O: hypertension; Translations: [Personal history of other diseases of circulatory system]EpisodicOther connective tissue disease (6 sources)Cramp; Translations: [Cramp of limb]EpisodicOther connective tissue disease (1 source)Cramp and spasm; Translations: [Cramp and spasm]Onset: 02-20-2023 EpisodicOther connective tissue disease (3 sources)Other muscle spasm; Translations: [Spasm of muscle]52-94-1221Kqzcihlu Other diseases of kidney and ureters (20 sources)Renal mass; Translations: [Unspecified disorder of kidney and ureter]Onset: 717700-52-7181UxxnzrcEqdvp diseases of kidney and ureters (20 sources)Hyperparathyroidism due to renal insufficiency; Translations: [Secondary hyperparathyroidism of renal origin]Onset: 607356-26-1585 ChronicOther diseases of kidney and ureters (2 sources)Secondary hyperparathyroidism of renal origin; Translations: [Secondary hyperparathyroidism of renal origin (Multi)]Onset: 09-99-2399Ifmxhjl Other diseases of kidney and ureters (5 sources)Renal mass; Translations: [Left renal mass]EpisodicOther diseases of veins and lymphatics (3 sources)Vascular insufficiency; Translations: [Venous insufficiency (chronic) (peripheral)]38-07-3560FgkfifziVjsky endocrine disorders (20 sources)Secondary hyperparathyroidism; Translations: [Secondary hyperparathyroidism (of renal origin)]Onset: 758531-83-8174TvjidmaOriud nervous system disorders (1 source)Polyneuropathy, unspecified; Translations: [Polyneuropathy, unspecified]Onset: 01-08-4503NhznktjCxdsy nervous system disorders (2 sources)Chronic pain; Translations: [Other chronic pain]72-76-0006Ytcgzci Other nervous system disorders (3 sources)Other chronic pain; Translations: [Other chronic pain]05-19-2024 ChronicOther nervous system disorders (20 sources)Polyneuropathy due to drug; Translations: [Drug-induced polyneuropathy]Onset: 345247-43-6742XmbxpuiVslhm nervous system disorders (20 sources)Chronic pain syndrome; Translations: [Chronic pain syndrome]Onset: 524263-71-9715VjixuisQfhek nutritional; endocrine; and metabolic disorders (20 sources)Morbid obesity; Translations: [Morbid (severe) obesity due to excess calories]Onset: 347816-32-4980FnapuanCgmwv nutritional; endocrine; and metabolic disorders (20 sources)Body mass index 30+ - obesity; Translations: [Body mass index (BMI) 35.0-35.9, adult]Onset: 213848-90-4986PfzguslZsnni screening for suspected conditions (not mental disorders or infectious disease) (10 sources)Other specified abnormal findings of blood chemistry; Translations: [Patient encounter status]Onset: 19-32-3112FkppjabuVdyef skin disorders (3 sources)Eruption; Translations: [Rash and other nonspecific skin eruption] EpisodicOther upper respiratory disease (20 sources)Allergic rhinitis; Translations: [Other allergic rhinitis]Onset: 975191-99-2353SotsbwiFkrvr upper respiratory infections (8 sources)Chronic sphenoidal sinusitis; Translations: [Chronic sphenoidal sinusitis]ChronicOther upper respiratory infections (2 sources)Acute maxillary sinusitis; Translations: [Acute maxillary sinusitis, unspecified]76-19-0703PeyyslkqVwzkcsku codes; unclassified (5 sources)Procedure indicated; Translations: [Awaiting organ transplant status] ChronicResidual codes; unclassified (10 sources)Awaiting transplantation; Translations: [Awaiting organ transplant status]ChronicResidual codes; unclassified (20 sources)H/O: tissue/organ recipient; Translations: [Stem cells transplant status]Onset: 379210-09-0715DvkxlatFjdjprxn codes; unclassified (2 sources)Bilateral lower limb edema; Translations: [Localized edema]05-12-2025 EpisodicScreening and history of mental health and substance abuse codes (2 sources)Patient encounter status; Translations: [Encounter for screening examination for other mental health and behavioral disorders]50-74-4785Dcatwiso Secondary malignancies (20 sources)Secondary malignant neoplasm of kidney; Translations: [Secondary malignant neoplasm of kidney]Onset: 409356-58-8736LojassdUesfjwzgy malignancies (20 sources)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; Translations: [Secondary malignant neoplasm of kidney]Onset: 02-05-2023 18-47-8816DsajsesYkcdwycmc malignancies (20 sources)Secondary malignant neoplasm of back; Translations: [Secondary malignant neoplasm of other parts ofnervous system]Onset: ChronicSecondary malignancies (20 sources)Secondary malignant neoplasm of spleen; Translations: [Secondary malignant neoplasm of other digestive organs]Onset: hronic Spondylosis; intervertebral disc disorders; other back problems (5 sources)Degeneration of cervical intervertebral disc; Translations: [Other cervical disc degeneration, unspecified cervical region]79-80-3541Iqkyjrb Systemic lupus erythematosus and connective tissue disorders (5 sources)Keratoconjunctivitis sicca; 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]ChronicUnclassified (3 sources)COUGH, UNSPECIFIED; Translations: [COUGH, UNSPECIFIED]Onset: 20-23-1141Mgcjcitjsljc (1 source)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; Translations: [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]Onset: 08-04-2023 Past or Other Problems Problem ClassificationProblemDateDocumented DateEpisodic/ChronicAcute and unspecified renal failure (20 sources)Injury of kidney; Translations: [Acute kidney failure, unspecified] Onset: 459619-69-2361WtaaxwldP Codes: Adverse effects of medical drugs (20 sources)Adverse effect of antineoplastic and immunosuppressive drugs, sequela; Translations: [Adverse reaction to drug]Onset: EpisodicLung disease due to external agents (20 sources)Drug-induced interstitial lung disorders, unspecified; Translations: [Drug-induced interstitial lung disorder]Onset: 964527-60-7398HysrbquwKbfx disorders (20 sources)Mood disordersOnset: 10-23-2023 Resolved: 146315-90-8788Cbgyubufr of unspecified nature or uncertain behavior (20 sources)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; Translations: [Neoplasm of uncertain behavior of other and unspecified respiratory organs] Resolved: 17-95-5816DuiqamqxCqmnh circulatory disease (20 sources)Orthostatic hypotension; Translations: [Orthostatic hypotension] Onset: 184503-83-0484PtyryarmUnciw connective tissue disease (20 sources)Spasm; Translations: [Other muscle spasm]Onset: EpisodicOther diseases of kidney and ureters (1 source)Chronic renal insufficiency; Translations: [Disorder of kidney and ureter, unspecified]Onset: 824801-57-7078UcusechkMcrdi diseases of veins and lymphatics (20 sources)Peripheral venous insufficiency; Translations: [Venous insufficiency (chronic) (peripheral)]Onset: 523556-41-4689KtsedhdiNzoon eye disorders (20 sources)Tear film insufficiency; Translations: [Tear film insufficiency, unspecified]Onset: 51-39-1646GtwafwxlUwkan eye disorders (20 sources)Dry eyes; Translations: [Tear film insufficiency, unspecified]Onset: 24-96-0511OpwruybwJdgev nutritional; endocrine; and metabolic disorders (20 sources)Obesity caused by energy imbalance; Translations: [Other obesity due to excess calories]Onset: 02-05-2023 Resolved: 031019-44-3593YxitrejEnkgzifz; pneumothorax; pulmonary collapse (20 sources)Thickening of pleura; Translations: [Pleural plaque without asbestos]Onset: 494655-39-5735DspyvyqfPmzmjriyrky; intervertebral disc disorders; other back problems (4 sources)Cervical radiculopathy; Translations: [Radiculopathy, cervical region]23-66-8188WbpgieblAaopwbveweeu (5 sources)Procedure indicated; Translations: [Stem cell transplant candidate] Unclassified (13 sources)Never smoked tobacco; Translations: [Never a smoker]Unclassified (1 source)COUGH, UNSPECIFIED; Translations: [COUGH, UNSPECIFIED]Onset: 96-09-4392Xzxhznpbtlzk (11 sources)Onset: 12-05-2023 Resolved: 489639-40-2979Xgtwbvalzwuq (1 source)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 Residual codes; unclassified (20 sources)DiseaseEpisodic Results Test NameValueInterpretationReference RangeFacilityALL BASIC METABOLIC PANELon 95-00-2340Pycro gap [Moles/Vol]11.6 mmol/LNOMS HealthcareCalcium [Mass/Vol]9.6 mg/dL8.5 - 10.1 mg/dLNOMS HealthcareChloride [Moles/Vol]108 mmol/LHigh98 - 107 mmol/LNOMS HealthcareCO2 [Moles/Vol]29.6 mmol/L21.0 - 32.0 mmol/LNOMS Healthcare Creatinine [Mass/Vol]1.97 mg/dLHigh0.70 - 1.30 mg/dLNOMS HealthcareGFR/1.73 sq M.predicted CKD-EPI (S/P/Bld) [Vol rate/Area]42Low>=60 mL/min/1.73m 2NOMS HealthcareGlucose [Mass/Vol]111 mg/hIYrem57 - 106 mg/dLNOMO Healthcare Interpretation and review of laboratory resultsAbnormalNOMS HealthcarePotassium [Moles/Vol]5.2 mmol/LHigh3.5 - 5.1 mmol/LNOMS HealthcareSodium [Moles/Vol]144 mmol/L136 - 145 mmol/LNOMS HealthcareTBH EGFR-NON AF EBFEIJTN45Eyw>=60 mL/min/1.73m 2NOMS HealthcareUrea nitrogen [Mass/Vol]28.0 mg/dLHigh7.0 - 18.0 mg/dLNOMS HealthcareUrea nitrogen/Creatinine [Mass ratio]14.2 mg/mgNOMS HealthcareCLINISYNCNOK [facility] [place] HealthcareCCF CMP (CMP) (FOR REMOTE [facility] USE)on 10-34-0195Xyelokc [Mass/Vol]3.4 g/dL3.4 - 5.0 g/dLNOMS HealthcareALBUMIN GLOBULIN RATIO0.9NOMO HealthcareALP [Catalytic activity/Vol]91 U/L46 - 116 U/L [...] HealthcareGlobulin (S) [Mass/Vol]3.7 g/dLNOMS Healthcare Glucose [Mass/Vol]115 mg/oQXqpp33 - 106 mg/dLNOMO HealthcareInterpretation and review of laboratory resultsAbnormalNOMS HealthcarePotassium [Moles/Vol]4.8 mmol/L3.5 - 5.1 mmol/LNOMS HealthcareProtein [Mass/Vol]7.1 g/dL6.4 - 8.2 g/dL NOMS HealthcareSodium [Moles/Vol]142 mmol/L136 - 145 mmol/LNOMS HealthcareTB EGFR-NON AF MPUTMWFN93Vry>=60 mL/min/1.73m 2NOMS HealthcareUrea nitrogen [Mass/Vol]34.0 mg/dLHigh7.0 - 18.0 mg/dLNOMO HealthcareUrea nitrogen/Creatinine [Mass ratio]16.6 mg/mgNOMS HealthcareCLINISYNMcLeod Health Loris BASIC METABOLIC PANELon 36-35-1966Eujyx gap [Moles/Vol]12.4 mmol/LNOMS HealthcareCalcium [Mass/Vol]9.6 mg/dL8.5 - 10.1 mg/dLNOMO HealthcareChloride [Moles/Vol]106 mmol/L 98 - 107 mmol/LNOMS HealthcareCO2 [Moles/Vol]28.9 mmol/L21.0 - 32.0 mmol/LNOMS HealthcareCreatinine [Mass/Vol]1.8 mg/dLHigh0.70 - 1.30 mg/dLNOCox [place] GFR/1.73 sq M.predicted CKD-EPI (S/P/Bld) [Vol rate/Area]46Low>=60 mL/min/1.73m 2[facility] [place] [facility] HealthcareGlucose [Mass/Vol]146 mg/tSKhmy95 - 106 mg/dLNOCox [place] Interpretation and review of laboratory resultsAbnormalNOMO HealthcarePotassium [Moles/Vol]4.3 mmol/L3.5 - 5.1 mmol/LNOMS HealthcareSodium [Moles/Vol]143 mmol/L 136 - 145 mmol/LNOMS [facility]FairhillTB EGFR-NON AF [id number]>=60 mL/min/1.73m 2 NOMS HealthcareUrea nitrogen [Mass/Vol]27 mg/dLHigh7.0 - 18.0 mg/dLNOMO HealthcareUrea nitrogen/Creatinine [Mass ratio]15 mg/mgNOMO HealthcareCLINISYNC [facility] HealthcareALL IMMUNOGLOBULIN Mio 90-84-0044XOB IMMUNOGLOBULIN G, QN766 mg/dL603 - 1613 mg/dLNOMO HealthcareComment on above:Performed at: [facility] [address] [place], [place] [id number] Core Maker: Benjamín Vora PhD, Phone: [phone] CL[facility]YHenderson County [facility] CBC WITH AUTO DIFFon 53-18-0486IKWIMRHHA ABSOLUTE GFLR6HENX HealthcareBasophils/100 WBC (Bld)0.2 %0.2 - 2.0 %[facility] Eosinophils/100 WBC (Bld)5 %0.9 - 7.0 %[facility] CenterErythrocyte distribution width (RBC) [Ratio]15.5 %High11.0 - 15.0 %NOM HealthcareHematocrit (Bld) [Volume fraction]40.5 %Low42.0 - 54.0 %[facility] HealthcareHemoglobin (Bld) [Mass/Vol]13.1 g/dLLow14.0 - 18.0 g/dLRusk Rehabilitation CenterIMMATURE GRANULOCYTES ABS AUTO0.13HighNOMO HealthcareImmature granulocytes/100 WBC (Bld)2.2 %High0.0 - 0.5 %[facility] HealthcareInterpretation and review of laboratory resultsAbnormalNOCox MonettLYMPHOCYTES ABSOLUTE AUTO1.7NOMS HealthcareLymphocytes/100 WBC (Bld) 28.8 %20.5 - 60.0 %[facility] HospitalH (RBC) [Entitic mass]27.3 pg25.9 - 34.0 pg [facility] CenterMCHC (RBC) [Mass/Vol]32.3 g/dL29.9 - 35.2 g/dLRusk Rehabilitation CenterMCV (RBC) [Entitic vol]84.4 fL80.0 - 94.0 fLNOCox MonettMONOCYTES ABSOLUTE AUTO 0.4NOMS HealthcareMonocytes/100 WBC (Bld)7.2 %1.7 - 12.0 %[facility] NEUTROPHILS ABSOLUTE AUTO3.3NOMS HealthcareNeutrophils/100 WBC (Bld)56.6 %43.0 - 75.0 %[facility] CenterPlatelet mean volume (Bld) [Entitic vol]10 fL9.5 - 13.5 fL [facility] CenterTBH EO #0.3NOMS HealthcareTBH [id number] HealthcareTBH RBC4.8NOMS HealthcareTBH WBC5.8NOMS HealthcareCLINISYNCNOMS HealthcareCCF CMP (CMP) (FOR REMOTE C USE)on 35-73-1595Epmbhur [Mass/Vol]3.5 g/dL3.4 - 5.0 g/dLNOMS HealthcareALBUMIN GLOBULIN [...] 2NOMS HealthcareGlobulin (S) [Mass/Vol]3.1 g/dLNOMS HealthcareGlucose [Mass/Vol]125 mg/fQOhum13 - 106 mg/dL NOMS HealthcareInterpretation and review of laboratory resultsAbnormalNOMS HealthcarePotassium [Moles/Vol]4 mmol/L3.5 - 5.1 mmol/LNOMS HealthcareProtein [Mass/Vol]6.6 g/dL6.4 - 8.2 g/dLNOMS HealthcareSodium [Moles/Vol]143 mmol/L136 - 145 mmol/LNOMS HealthcareTBH EGFR-NON AF SVBXRIFZ06Llh>=60 mL/min/1.73m 2NOMS HealthcareUrea nitrogen [Mass/Vol]30 mg/dLHigh7.0 - 18.0 mg/dLNOMS Healthcare Urea nitrogen/Creatinine [Mass ratio]16.1 mg/mgNOMS HealthcareCLINISYNFormerly [facility] CMP (CMP) (FOR REMOTE [facility] USE)on 83-00-3203Jhqmaek [Mass/Vol]3.4 g/dL3.4 - 5.0 g/dLNOMO HealthcareALBUMIN GLOBULIN RATIO1.1NOMS HealthcareALP [Catalytic activity/Vol]91 U/L46 - 116 U/LNOMS HealthcareALT [Catalytic activity/Vol]42 U/L16 - 63 U/LNOMS HealthcareAnion gap [Moles/Vol]12.9 mmol/L NOMS HealthcareAST [Catalytic activity/Vol]24 U/L15 - 37 U/LNOMS Healthcare Bilirubin [Mass/Vol]0.6 mg/dL0.2 - 1.0 mg/dLNOMS HealthcareCalcium [Mass/Vol]9 mg/dL8.5 - 10.1 mg/dLNOMS HealthcareChloride [Moles/Vol]103 mmol/L98 - 107 mmol/LNOMS HealthcareCO2 [Moles/Vol]29.1 mmol/L21.0 - 32.0 mmol/LNOMS Healthcare Creatinine [Mass/Vol]1.81 mg/dLHigh0.70 - 1.30 mg/dLNOMO HealthcareGFR/1.73 sq M.predicted CKD-EPI (S/P/Bld) [Vol rate/Area]46Low>=60 mL/min/1.73m 2NOMS HealthcareGlobulin (S) [Mass/Vol]3.1 g/dLNOMO HealthcareGlucose [Mass/Vol]153 mg/hAEkod62 - 106 mg/dLNOMO HealthcareInterpretation and review of laboratory resultsAbnormalNOMS HealthcarePotassium [Moles/Vol]4 mmol/L3.5 - 5.1 mmol/LNOMS HealthcareProtein [Mass/Vol]6.5 g/dL6.4 - 8.2 g/dLNOMO HealthcareSodium [Moles/Vol]141 mmol/L136 - 145 mmol/LNOMS HealthcareTBH EGFR-NON AF [id number] Low>=60 mL/min/1.73m 2NOMS HealthcareUrea nitrogen [Mass/Vol]26 mg/dLHigh7.0 - 18.0 mg/dLNOMO HealthcareUrea nitrogen/Creatinine [Mass ratio]14.4 mg/mgNOMS HealthcareCLINISYNCNOK [facility] [place] [facility] HealthcareALL CBC WITH AUTO DIFFon 19-75-4769Xyfocyepgzv distribution width (RBC) [Ratio]15 %11.0 - 15.0 %[facility] HealthcareHematocrit (Bld) [Volume fraction]42.5 %42.0 - 54.0 %[facility] CenterHemoglobin (Bld) [Mass/Vol] 13.6 g/dLLow14.0 - 18.0 g/dLUTAH STATE HOSPITAL HealthcareInterpretation and review of laboratory resultsAbnormalNOResearch Belton HospitalH (RBC) [Entitic mass]26.9 pg25.9 - 34.0 pgChildren's Mercy HospitalHC (RBC) [Mass/Vol]32 g/dL29.9 - 35.2 g/dLChildren's Mercy HospitalV (RBC) [Entitic vol]84 fL80.0 - 94.0 fLRusk Rehabilitation CenterPlatelet mean volume (Bld) [Entitic vol]10.2 fL9.5 - 13.5 fLRusk Rehabilitation CenterTB DPD618FpkNARZColumbia Regional Hospital RBC5.06NOColumbia Regional Hospital WBC4.9[facility] CenterCLINISYNCNOMS [facility] IMMUNOGLOBULIN Mio 97-65-5920LXS IMMUNOGLOBULIN G, QN741 mg/dL603 - 1613 mg/dLUTAH STATE HOSPITAL HealthcareComment on above:Performed at: - LabWilliam [place]ille [id number] Core Maker: Benjamín Vora PhD, Phone: [phone] [facility]YH[facility] CBC WITH AUTO DIFFon 85-67-6532MLIVTMRUC ABSOLUTE AUTO0.0NOMS [facility]-FairhillBasophils/100 WBC (Bld)0.2 %0.2 - 2.0 %[facility] Eosinophils/100 WBC (Bld)4.6 %0.9 - 7.0 %[facility] CenterErythrocyte distribution width (RBC) [Ratio]15.4 %High11.0 - 15.0 %[facility] CenterHematocrit (Bld) [Volume fraction]43.8 %42.0 - 54.0 %[facility] CenterHemoglobin (Bld) [Mass/Vol] 13.8 g/dLLow14.0 - 18.0 g/dLRusk Rehabilitation CenterIMMATURE GRANULOCYTES ABS AUTO0.13 HighNOCox MonettImmature granulocytes/100 WBC (Bld)2.9 %High0.0 - 0.5 %[facility] HealthcareInterpretation and review of laboratory resultsAbcitizens memorial healthcarealNOMO Healthcare LYMPHOCYTES ABSOLUTE AUTO1.2NOMS HealthcareLymphocytes/100 WBC (Bld)27.0 %20.5 - 60.0 %[facility] HospitalH (RBC) [Entitic mass]26.6 pg25.9 - 34.0 pgNOResearch Belton HospitalHC (RBC) [Mass/Vol]31.5 g/dL29.9 - 35.2 g/dLChildren's Mercy HospitalV (RBC) [Entitic vol]84.6 fL80.0 - 94.0 fLUTAH STATE HOSPITAL HealthcareMONOCYTES ABSOLUTE AUTO0.4NOMO HealthcareMonocytes/100 WBC (Bld)7.7 %1.7 - 12.0 %[facility] HealthcareNEUTROPHILS ABSOLUTE AUTO2.6NOMO HealthcareNeutrophils/100 WBC (Bld)57.6 %43.0 - 75.0 %[facility] HealthcarePlatelet mean volume (Bld) [Entitic vol]11.2 fL9.5 - 13.5 fLRusk Rehabilitation CenterTBH EO #0.2NOMS HealthcareTBH DYI772HbtGHAR HealthcareTB RBC5.18NOCox MonettTB WBC4.6NOMO HealthcareCLINISYNCNOMS HealthcareISTAT XRay CREon 43-31-0666FTAAJ GFR36.811NoUNC Health Nash Physician GroupComment on above: Result Comment: PERFORMED BY: [place] [address] PATHOLOGIST MACHINE PLUG SHAPER BRIAN BALL M.D.Performed By: #### ISCRE #### [facility] [address] [place] [address] cervical spine wo/w conon 88-27-9237XP cervical spine wo/w [facility] [place] [address] MRI Report Signed Patient: Katerina Danielle MR#: [id number] 0 : 1960 Acct:[id number] Age/Sex: 63 / M ADM Date: 04/15/24 Loc: MR Room: Type: [facility] Attending Dr: Nadeem Morrison DO Copies to: Nadeem Mrorison DO Ordering Provider: Nadeem Morrison DO Date [...] Sorin Shah II, MD 04/15/242210 Signed By: 04/15/242217[facility] head/brain wo/w conon 07-14-3332BG head/brain wo/w [facility] [place] [address] [place] [address] MRI Report Signed Patient: Katerina Danielle MR#: [id number] 0 : 1960 Acct:[id number] Age/Sex: 63 / M ADM Date: 04/15/24 Loc: MR Room: Type: [facility] Attending Dr: Nadeem Morrison DO Copies to: [...] Sorin Shah M.D.04/15/2024 10:23 PM Dictation Location: [facility]--13 Transcribed By: COURT 04/15/242222 Dictated By: Sorin Shah II, MD 04/15/242217 Signed By: 04/15/242222[facility] Physician GroupNo Panel InformationOrdered By: Nadeem Morrison on 97-63-0250Erfutip Estimated GFR (eGFR)36.811Harrison Community HospitalWhole blood creatinine measurementOrdered By: Nadeem Morrison on 66-68-8956Pdzortmsxd [Mass/Vol]2.0 mg/dLHigh0.6-1.3FKindred Hospital LimaComment on above:ER/ESD physician is notified/shown all ISTAT results.Critical values may be confirmed by laboratorytesting ifdeemed necessary by ER attending doctor.Result Comment: ER/ESD physician is notified/shown all ISTAT results. Critical values may be confirmed by laboratory testing if deemed necessary by ER attending doctor.Performed By: #### ISCRE #### [place] [address] USAOffice Visit (Onco-Nephrology - Established)on 05-29-2023 Follow-up visitDiagnoses/Problems Benign essential HTN (401.1) (I10) CKD (chronic kidney disease), stage III (585.3) (N18.30) Hyperparathyroidism, secondary (588.81) (N25.81) Orders Benign essential HTN, CKD (chronic kidney disease), stage III, Hyperparathyroidism, secondary Basic Metabolic Panel; Status:Active; Requested for:66Xgj8681; Parathormone Intact, Serum; Status:Active; Requested for:48Qck2558; Provider Impressions 1- CKD III: His Cr [...] - Heme Onc-appointment question - 04/29/23 [facility] 34-65-4868Gibqw Note - Heme Onc-appointment question - 04/29/23 apptPhone Call Information: Patient Demographics: Name: KATERINA DANIELLE Date: 1960 Address: [address] [place] [address] Date and Time: 28-Apr-2023 09:18 Caller Information: call from Call From: patient Primary Phone Number: [phone] Reason for Call: Reason for Callappointment question, [...] Updated: 28-Apr-2023 09:34 by Tea Oro (N MGR)[facility] CenterPhone Note - Heme Onc-test resultson 20-93-0707Gtuac Note - Heme Onc-test resultsPhone Call Information: Patient Demographics: Name: KATERINA DANIELLE Date: 1960 Address: [address] [place] [address] Date and Time: 15-Apr-2023 14:56 Caller Information: call from Call From: patient Primary Phone Number: [phone] Reason for Call: Reason for Calltest results Message: Message: Calling to see if Dr. Sears had time to see results from labs on Friday His PCP really didn't find anything wrong and wants to order a CT. Patient would like to know Dr. Sears's thoughts first before continuing with this. Should have come from [place]. Team Communication: Team Communications: I spoke Katerina [...] Last Updated: 15-Apr-2023 15:30 by Zofia Smith (KLEVER)[facility] CenterPhone Note - Heme Onc-pain - Pain/tenderness in abdomenon 51-14-3764Iyozb Note - Heme Onc-pain - Pain/tenderness in abdomenPhone Call Information: Patient Demographics: Name: KATERINA DANIELLE Date: 1960 Address: [address] [place] [address] Date and Time: 08-Apr-2023 09:26 Caller Information: call from Call From: patient Primary Phone Number: [phone] Reason for Call: Reason for Callpain, Pain/tenderness [...] once a day, M-F 2x a day [facility] 10%-160 units/mL subcutaneous solution: every 28 days [...] Last Updated: 08-Apr-2023 10:46 by Nikki Aguilera (RN)[facility] CenterInitial Visit (Pain Medicine)on 82-24-7313Sdjtpsv Visit (Pain Medicine) Diagnoses/Problems Cramps, muscle, general (729.82) (R25.2) Orders Stop: Gabapentin 100 MG Oral Capsule Neurology - Neuromuscular Referral Evaluation and Treatment Evaluate AND Treat Status: Hold For - Scheduling Requested for: 24Bhh8673 Start: Gabapentin 100 MG Oral Capsule; TAKE [...] and evaluated by multiple physicians including his rnp, his oncologist. He has tried multiple different [...] pain. ENT: no ea (more content not included)...[facility] TouchworksClinic Note - Heme Onc Schedulingon 87-04-6161Mwlqbj Note - Heme Onc SchedulingRetrieve Patient Instructions: Patient Instructions: Patient Instructions: RetrievePatient Instructions Instructions patient is scheduled w/ Pain Mngmnt as requested. Earliest available 02/19. End of Visit Documentation: Clinic Location/Phone Number: Clinic Location/Phone Number: [facility] End Of Visit MU Report Item: Visit Summary given or mailed to patientyes mailed Electronic Signatures: Nicole Jeong (SEC) (Signed 31-Jan-2023 16:14) Authored: Retrieve Patient Instructions, End of Visit Documentation Last Updated: 31-Jan-2023 16:14 by Nicole Jeong (SEC)[facility] CenterPhone Note - Heme Onc-appointment question - Referral to paion 01-31-2023 Phone Note - Heme Onc-appointment question - Referral to paiPhone Call Information: Patient Demographics: Name: KATERINA DANIELLE Date: 1960 Address: [address] [place] [address] Date and Time: 31-Jan-2023 12:13 Caller Information: call from Call From: patient Primary Phone Number: [phone] Reason for Call: Reason for Callappointment question, [...] Updated: 31-Jan-2023 12:22 by Tea Oro (N MGR)[facility] CenterOffice Visit (Onco-Nephrology - Established)on 33-65-1718Ydoviv-up visitDiagnoses/Problems Benign essential HTN (401.1) (I10) CKD [...] transplant candidate Basic Metabolic Panel; Status:Active; Requested for:71Ild0811; Parathormone Intact, Serum; Status:Active; Requested for:89Mgy4664; Phosphorus, Serum; Status:Active; Requested for:63Rgh2139; Unlinked Stop: Losartan Potassium 25 MG Oral [...] included)...NormalUH TouchworksPhone Note - Heme Onc-order entryon 11-68-0934Hivle Note - Heme Onc-order entryPhone Call Information: Patient Demographics: Name: KATERINA DANIELLE Date: 1960 Address: [address] [place] [address] Primary Phone Number: [phone] Reason for Call: Reason for Callorder entry [...] Last Updated: 29-Jan-2023 14:13 by Zofia Smith (KLEVER)[facility] Medical CenterTobacco Screening.on 44-31-2419Udff risk assessmentb) One or more falls in the last yearMP-[facility] DO Work Phone: Tobacco use status CPHSb) NoMP-[facility] 3 DO Work Phone: Clinic Note - Heme Onc Schedulingon 64-24-1635Zoiwzf Note - Heme Onc SchedulingRetrieve Patient Instructions: Patient Instructions: Patient Instructions: RetrievePatient Instructions End of Visit Documentation: Clinic Location/Phone Number: Clinic Location/Phone Number: [facility] End Of Visit MU Report Item: Visit Summary given or mailed to patientyes mailed to patient Electronic Signatures: Nicole Jeong (SEC) (Signed 24-Jan-2023 14:06) Authored: Retrieve Patient Instructions, End of Visit Documentation Last Updated: 24-Jan-2023 14:06 by Nicole Jeong (SOURAV)[facility] Note - Heme Onc-Follow Up Visiton 28-22-6350Gebeew Note - Heme Onc-Follow Up VisitPatient Visit [...] Dr. Rodriguez in oncology at [facility] for evaluation. 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 Bone marrow biopsy was done which was negative for involvement with lymphoma . He also underwent an LP with low yield. Because of his meningeal enhancement and location close to [employer], he was treated with hyperCVAD-MA. He received [...] was compared to this patient's previous biopsy ([id number]). The previous biopsy demonstrated areas of necrosis [...] TP53 mutations. The patient was enrolled on ZWTP1345, Venetoclax+RICE. Cycle 1 started 10/29/17. Had tumor [...] pneumonitis. The patient was recently readmitted to [facility] (06/16-06/18/18) for fever and PNA. 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 He completed by mouth Levaquin. The patient was admitted to [facility] (08/18-08/21/18) with a new PE. He [...] CAR T Cell infusion 01/04/19 with tisagenlecleucel (Sonda41/[employer]) with preparative regimen of fludarabine and cytoxan. History of Present Illness: ID Statement: KATERINA DANIELLE is a 62 year old Male (more content not included)...NormalUH [facility] Medical CenterClinic Note - Intakeon 01-08-8455Xltfhp Note - IntakePatient Visit Information: Visit TypeFollow [...] falls riskimplement environmental risk factors interventions Spiritual/Procedural: Spiritual/cultural/islam practices important for us to knowno Alcohol, [...] Last Updated: 22-Jan-2023 13:02 by Lindsay Yadav (PCNA)[facility] CenterCOMPREHENSIVE PANELon 94-35-9635JARBIZTQtrohfaoTqdomdULChildren's MinnesotaComment on above:Order Comment: TEST COMPREHENSIVE PANEL WAS CANCELLED, 01/21/2023 08:08 NO SPECIMEN RECEIVED IN LAB.Performed By: #### CMP #### [address] [place] [address]VGAOJMTO PHOSPHATASECancelChildren's Minnesota Comment on above:Order Comment: TEST COMPREHENSIVE PANEL WAS CANCELLED, 01/21/2023 08:08 NO SPECIMEN RECEIVED IN LAB.Performed By: #### CMP #### [address] [place] [address]LDKIhdxwdqeXfyerlTBRainy Lake Medical CenterComment on above: Order Comment: TEST COMPREHENSIVE PANEL WAS CANCELLED, 01/21/2023 08:08 NO SPECIMEN RECEIVED IN LAB.Result Comment: Patients treated with Sulfasalazine may generate falsely decreased results for ALT.Performed By: #### CMP #### [address] [place] [address]PORXR GAPCancelChildren's MinnesotaComment on above:Order Comment: TEST COMPREHENSIVE PANEL WAS CANCELLED, 01/21/2023 08:08 NO SPECIMEN RECEIVED IN LAB.Performed By: #### CMP #### [address] [place], [place] [address]TFFBdfvyvnsDrnegiHHNorthland Medical CenterComment on above: Order Comment: TEST COMPREHENSIVE PANEL WAS CANCELLED, 01/21/2023 08:08 NO SPECIMEN RECEIVED IN LAB.Performed By: #### CMP #### [address] [place], [place] [address]FDTECGGVUQCOfxzhlqdCcwthxSQNorthland Medical CenterComment on above:Order Comment: TEST COMPREHENSIVE PANEL WAS CANCELLED, 01/21/2023 08:08 NO SPECIMEN RECEIVED IN LAB.Performed By: #### CMP #### [address] [place], [place] [address]NVUGGVJGM,TOTALCanNorthland Medical Center Comment on above:Order Comment: TEST COMPREHENSIVE PANEL WAS CANCELLED, 01/21/2023 08:08 NO SPECIMEN RECEIVED IN LAB.Performed By: #### CMP #### [address] [place], [place] [address]JOBHSEKRrmqxuuvObwcymPNChildren's MinnesotaComment on above:Order Comment: TEST COMPREHENSIVE PANEL WAS CANCELLED, 01/21/2023 08:08 NO SPECIMEN RECEIVED IN LAB.Performed By: #### CMP #### [address] [place], [place] [address]QGDNXTBIXeaaodigQqbcmqVMChildren's MinnesotaComment on above:Order Comment: TEST COMPREHENSIVE PANEL WAS CANCELLED, 01/21/2023 08:08 NO SPECIMEN RECEIVED IN LAB.Performed By: #### CMP #### [address] [place], [place] [address]JGCPRTDQERVxduvdxjEccnhvKRNorthland Medical CenterComment on above:Order Comment: TEST COMPREHENSIVE PANEL WAS CANCELLED, 01/21/2023 08:08 NO SPECIMEN RECEIVED IN LAB.Performed By: #### CMP #### [address] [place] [address]yILD FEMALECancelChildren's MinnesotaComment on above:Order Comment: TEST COMPREHENSIVE PANEL WAS CANCELLED, 01/21/2023 08:08 NO SPECIMEN RECEIVED IN LAB.Result Comment: CALCULATIONS OF ESTIMATED GFR ARE PERFORMED USING THE 2020 CKD-EPI STUDY REFIT EQUATION WITHOUT THE RACE VARIABLE FOR THE IDMS-TRACEABLE CREATININE METHODS. https://jasn.asnjournals.org/content/earlyASN.7519086178Gbbqnhthn By: #### CMP #### [address] [place] [address]pYHO MALECancelChildren's MinnesotaComment on above:Order Comment: TEST COMPREHENSIVE PANEL WAS CANCELLED, 01/21/2023 08:08 NO SPECIMEN RECEIVED IN LAB.Result Comment: CALCULATIONS OF ESTIMATED GFR ARE PERFORMED USING THE 2020 CKD-EPI STUDY REFIT EQUATION WITHOUT THE RACE VARIABLE FOR THE IDMS-TRACEABLE CREATININE METHODS. https://jasn.asnjournals.org/content/earlyASN.9777781705Jtzlyrvlw By: #### CMP #### [address] [place] [address]PEABZTBYlrxhbojTxyyjpBZNorthland Medical CenterComment on above:Order Comment: TEST COMPREHENSIVE PANEL WAS CANCELLED, 01/21/2023 08:08 NO SPECIMEN RECEIVED IN LAB.Performed By: #### CMP #### [address] [address]TZRPMUGZKXtdrqihhTzuomaSPNorthland Medical CenterComment on above:Order Comment: TEST COMPREHENSIVE PANEL WAS CANCELLED, 01/21/2023 08:08 NO SPECIMEN RECEIVED IN LAB.Performed By: #### CMP #### [address] [address]GSUQSDMuxwlibiIrczkuBXNorthland Medical CenterComment on above:Order Comment: TEST COMPREHENSIVE PANEL WAS CANCELLED, 01/21/2023 08:08 NO SPECIMEN RECEIVED IN LAB.Performed By: #### CMP #### [address] [place], [place] [address]OZCDP PROTEINCancelChildren's MinnesotaComment on above:Order Comment: TEST COMPREHENSIVE PANEL WAS CANCELLED, 01/21/2023 08:08 NO SPECIMEN RECEIVED IN LAB.Performed By: #### CMP #### [address] [place] [address]HFYT NITROGENCancelChildren's MinnesotaComment on above:Order Comment: TEST COMPREHENSIVE PANEL WAS CANCELLED, 01/21/2023 08:08 NO SPECIMEN RECEIVED IN LAB.Performed By: #### CMP #### [address] [place] [address]GGNje 78-09-4023NXEYyyzxoavYoyhyeBERainy Lake Medical Center Comment on above:Order Comment: TEST LDH WAS CANCELLED, 01/21/2023 08:08 NO SPECIMEN RECEIVED IN LAB.Performed By: #### LDH ####[facility] [place], [place] [address]HCFSCMUWYkn 46-25-6785LVNHPEGKZXkqjkpkwLnhxqd [facility] General HospitalComment on above:Order Comment: TEST MAGNESIUM WAS CANCELLED, 01/21/2023 08:08 NO SPECIMEN RECEIVED IN LAB.Performed By: #### MG ####[address] [place], [place] [address]Zpgiq Note - Heme Onc-Insurance Medical Hxon 15-94-4862Rskbv Note - Heme Onc-Insurance Medical HxPhone Call Information: Patient Demographics: Name: KATERINA DANIELLE Date: 1960 Address: [address] [place] [address] Date and Time: 14-Jan-2023 10:30 Caller Information: call from Call From: patient Primary Phone Number: [phone] Reason for Call: Reason for CallInsurance Medical Hx Message: Message: Insurance company re-evaluating him ([facility]). Would like a copy of medical [...] Updated: 14-Jan-2023 14:19 by Ashley Dugan (UNIT SECT)[facility] Medical CenterIMMUNOGLOBULIN IGG QUANTITATIVEon 01-03-2023 Immunoglobulin G, Qn, Lzzpz814 mg/rBPwyxfg907-3410OtlChillicothe Va Medical CenterComment on above:Performed By: #### MG, LDH, CMP #### [facility] [address] [place], [place] [address] Dr. 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 If you develop fever, loss [...] that point, PCP referred patient to a Supervisor [employer] at [facility]. He saw Nohelia Machado DO, Supervisor [employer] at [facility], did a breathing test and ordered [...] Breath ActivatedINHALE 1 PUFF (more content not included)...NormalProMedica Fostoria Community HospitalworksHEREDITARY HEMOCHROMATOSIS, DNA ANALYSISon 40-33-4321Abicltirpn HemochromatosisComment NormalChillicothe Va Medical CenterComment on above:Result Comment: Results: c.845G>A (p.Gak610Yau) - Not Detected c.187C>G (p.Inw51Esm) - Detected, heterozygous c.193A>T (p.Eqz39Vff) - Not Detected Not associated with increased [...] for patients who are homozygous for c.845G>A (p.Uth222Voz) and have yet to experience clinical symptoms. . Comments: The most common HFE variants associated with hereditary hemochromatosis are c.845G>A (p.Osk790Anm), c.187C>G (p.Vzs46Bgc), c.193A>T (p.Ekq13Ykf). While patients homozygous for c.845G>A (p.Zqm062Jri) are the most likely to present clinical symptoms, less than 10% develop clinically significant iron overload with tissue and organ damage. . Genetic counseling is recommended to discuss the potential clinical implications of positive results, as well as recommendations for testing family members. Genetic Coordinators are available for health care providers to discuss results at [phone] ([phone]). . Test Details: Three variants analyzed: c.845G>A (p.Xfj423Trg), commonly referred to as C282Y c.187C>G (p.Jhb85Dqx), commonly referred to as H63D c.193A>T (p.Twf99Yjx), commonly referred to as S65C . Methods/Limitations: [...] developed and its performance characteristics determined by [employer]. It has not been cleared or approved by the Food and Drug Administration. . References: Jared BR, Keith PC, Shelby KV, Rishabh LW, Heriberto ; [employer] Liver Diseases. Diagnosis and management of hemochromatosis: 2011 practice guideline by the [place] Liver Diseases. Hepatology. 2010;54(1):328-43. doi: 10.1002/hep.30763. PMID: 82843455; PMCID: PVX9107020. Consuelo G, Lisa P, Janeth CODY, Marcel H, Nick O, Jeffrey S, Ryder I, Frederick M, Candace Hale. [facility] best practice guidelines for the molecular genetic diagnosis of hereditary hemochromatosis (HH). Eur J Hum Winter. 2016 Nov;24(4):479-95. doi: 10.1038/ejhg.2015.128. Epub 2014Mar 08. PMID: 93209511; PMCID: SFG0665174. . Leslee Cadena, PhD, [facility] Dioni Trinidad, PhD Sunday Sofia, PhD, FAC Angelito Beard, PhD, [facility] Tom Wills, PhD, [facility] Helio Henry, PhD, [facility] Katie Collazo, PhD, [facility] Yun Peterson, PhD, FACMGPerformed By: #### HHDNA #### [facility] [address] [place] [address] Dr. Ladan McdonaldFERRITINon 85-47-7525Csdzfnwy [Mass/Vol]1497.0 ng/mLCritically high26.0-388.0Chillicothe Va Medical CenterComment on above:Performed By: #### MG, LDH, CMP #### [facility] [address] [place] [address] Dr. Ladan Alcantara AND TIBCon 10-11-2022% UFRFQRQQCM66.6 %NormalThe Marymount HospitalComment on above:Performed By: #### MG, LDH, CMP #### [facility] [address] [place] [address] Dr. Ladan Alcantara [Mass/Vol]99.0 ug/wUGaddqo36.0-175.0[facility] Comment on above:Performed By: #### MG, LDH, CMP #### [facility] [address] [place] [address] Dr. Ladan McdonaldTIBC VVMDPM703.0 ug/nPYpodhe521.0-450.0[facility] Comment on above:Performed By: #### MG, LDH, CMP #### [facility] [address] [place] [address] Dr. Ladan McdonaldMAGNESIUMon 54-88-8552Jipavvcoi [Mass/Vol]2.2 mg/dLNormal1.8-2.4 The [facility] HospitalComment on above:Performed By: #### MG, LDH, CMP #### [facility] [address] [place] [address] Dr. Ladan GoldenHofelicia 98-78-0582ZLE2.839 uIU/mLNormal0.358-3.740The Marymount HospitalComment on above:Performed By: #### MG, LDH, CMP #### [facility] [address] [place] [address] Dr. Ladan Casillas B12 AND FOLATEon 43-69-6274Ashmkdtry (Vitamin B12) [Mass/Vol] 632.0 pg/mVSbeiif478.0-986.0Chillicothe Va Medical CenterComment on above:Performed By: #### FERR, B12FOL, FETIBC #### [facility] [address] [place] [address] Dr. Ladan McdonaldFOLATE10.20 ng/mLNormal8.60-58.90Chillicothe Va Medical CenterComment on above:Performed By: #### FERR, B12FOL, FETIBC #### [facility] [address] [place] [address] Dr. Ladan McdonaldCBC AND DIFFERENTIALon 10-10-2022% AUTOMATED IMMATURE GRAN CanceledNoPenrose HospitalComment on above:Order Comment: TEST CBC AND DIFFERENTIAL WAS CANCELLED, 10/10/2022 15:36 NO SAMPLE RECIEVED/RELEASED IN ERRORResult Comment: Immature Granulocyte Count (IG) includes promyelocytes, myelocytes and metamyelocytes but does not include bands. Percent differential counts (%) should be interpreted in the context of the absolute cell counts (cells/L).Performed By: #### CBCDF #### [address] [place] [address]% BASOPHILCanceledRainy Lake Medical CenterComment on above:Order Comment: TEST CBC AND DIFFERENTIAL WAS CANCELLED, 10/10/2022 15:36 NO SAMPLE RECIEVED/RELEASED IN ERRORPerformed By: #### CBCDF #### [address] [place] [address]% EOSINOPHILCanceledRainy Lake Medical CenterComment on above:Order Comment: TEST CBC AND DIFFERENTIAL WAS CANCELLED, 10/10/2022 15:36 NO SAMPLE RECIEVED/RELEASED IN ERRORPerformed By: #### CBCDF #### [address] [place] [address]% LYMPHOCYTECanceledRainy Lake Medical CenterComment on above:Order Comment: TEST CBC AND DIFFERENTIAL WAS CANCELLED, 10/10/2022 15:36 NO SAMPLE RECIEVED/RELEASED IN ERRORPerformed By: #### CBCDF #### [address] [place] [address]% MONOCYTECanceledRainy Lake Medical CenterComment on above:Order Comment: TEST CBC AND DIFFERENTIAL WAS CANCELLED, 10/10/2022 15:36 NO SAMPLE RECIEVED/RELEASED IN ERRORPerformed By: #### CBCDF #### [address] [place] [address]% NEUTROPHILCanceledRainy Lake Medical CenterComment on above:Order Comment: TEST CBC AND DIFFERENTIAL WAS CANCELLED, 10/10/2022 15:36 NO SAMPLE RECIEVED/RELEASED IN ERRORPerformed By: #### CBCDF #### [address] [place], [place] [address]IBUVUAOIArhxirxoFfdddlCMRainy Lake Medical CenterComharbor oaks hospital on above:Order Comment: TEST CBC AND DIFFERENTIAL WAS CANCELLED, 10/10/2022 15:36 NO SAMPLE RECIEVED/RELEASED IN ERRORPerformed By: #### CBCDF #### [address] [place], [place] [address]CNICHYJQOHOVInmtfyteSsemcsUWNorthland Medical CenterComment on above:Order Comment: TEST CBC AND DIFFERENTIAL WAS CANCELLED, 10/10/2022 15:36 NO SAMPLE RECIEVED/RELEASED IN ERRORPerformed By: #### CBCDF #### [address] [place], [place] [address]UCDWCQOZXSKfrwmnuvCbkjwyWUNorthland Medical CenterComment on above:Order Comment: TEST CBC AND DIFFERENTIAL WAS CANCELLED, 10/10/2022 15:36 NO SAMPLE RECIEVED/RELEASED IN ERRORPerformed By: #### CBCDF #### [address] [place], [place] [address]REKSkmglqszOcagdyZRMelrose Area HospitalComment on above: Order Comment: TEST CBC AND DIFFERENTIAL WAS CANCELLED, 10/10/2022 15:36 NO SAMPLE RECIEVED/RELEASED IN ERRORPerformed By: #### CBCDF #### [address] [place], [place] [address]YCWPjyqhwlqBtvbiaKVMelrose Area HospitalComment on above: Order Comment: TEST CBC AND DIFFERENTIAL WAS CANCELLED, 10/10/2022 15:36 NO SAMPLE RECIEVED/RELEASED IN ERRORPerformed By: #### CBCDF #### [address] [place], [place] [address]LSYJATLANYImkxndtlZbgivmIQNorthland Medical CenterComment on above:Order Comment: TEST CBC AND DIFFERENTIAL WAS CANCELLED, 10/10/2022 15:36 NO SAMPLE RECIEVED/RELEASED IN ERRORPerformed By: #### CBCDF #### [address] [place], [place] [address]GXJWNcynoonbJycpxmYCChildren's MinnesotaComment on above: Order Comment: TEST CBC AND DIFFERENTIAL WAS CANCELLED, 10/10/2022 15:36 NO SAMPLE RECIEVED/RELEASED IN ERRORPerformed By: #### CBCDF #### [address] [place], [place] [address]QJZJxucinuqDgdweqABCommunity Memorial HospitalComment on above: Order Comment: TEST CBC AND DIFFERENTIAL WAS CANCELLED, 10/10/2022 15:36 NO SAMPLE RECIEVED/RELEASED IN ERRORPerformed By: #### CBCDF #### [address] [place], [place] [address]NQTMCYMFRzhsoaawBbpusyOVNorthland Medical CenterComment on above:Order Comment: TEST CBC AND DIFFERENTIAL WAS CANCELLED, 10/10/2022 15:36 NO SAMPLE RECIEVED/RELEASED IN ERRORPerformed By: #### CBCDF #### [address] [place], [place] [address]PEAZZZMECTOnaospqtVugkjeRUNorthland Medical CenterComharbor oaks hospital on above:Order Comment: TEST CBC AND DIFFERENTIAL WAS CANCELLED, 10/10/2022 15:36 NO SAMPLE RECIEVED/RELEASED IN ERRORPerformed By: #### CBCDF #### [address] [place], [place] [address]LIYGxfgxfbbFdrjhbOMCommunity Memorial HospitalComharbor oaks hospital on above: Order Comment: TEST CBC AND DIFFERENTIAL WAS CANCELLED, 10/10/2022 15:36 NO SAMPLE RECIEVED/RELEASED IN ERRORPerformed By: #### CBCDF #### [address] [place], [place] [address]OBMPowyjlvxVthzeeKNMelrose Area HospitalComment on above: Order Comment: TEST CBC AND DIFFERENTIAL WAS CANCELLED, 10/10/2022 15:36 NO SAMPLE RECIEVED/RELEASED IN ERRORPerformed By: #### CBCDF #### [address] [place], [place] [address]KYO-MNTnmlvgfkWascdjWNNorthland Medical CenterComment on above:Order Comment: TEST CBC AND DIFFERENTIAL WAS CANCELLED, 10/10/2022 15:36 NO SAMPLE RECIEVED/RELEASED IN ERRORPerformed By: #### CBCDF #### [address] [place], [place] [address]KATUzpxszfbRchfkwTONorthland Medical CenterComment on above: Order Comment: TEST CBC AND DIFFERENTIAL WAS CANCELLED, 10/10/2022 15:36 NO SAMPLE RECIEVED/RELEASED IN ERRORPerformed By: #### CBCDF #### [address] [place], [place] [address]Jgialn Note - Heme Onc Schedulingon 63-34-4961Ntrekm Note - Heme Onc SchedulingRetrieve Patient Instructions: Patient Instructions: Patient Instructions: RetrievePatient Instructions Instructions Typenutrition Instructions Return to clinic Please call the office with any new or worsening symptoms in the meantime. End of Visit Documentation: Clinic Location/Phone Number: Clinic Location/Phone Number: [address] [place] [address] End Of Visit MU Report Item: Visit Summary given or mailed to patientyes Electronic Signatures: Whit Dugan (SEC) (Signed 10-Oct-2022 14:02) Authored: Retrieve Patient Instructions, End of Visit Documentation Last Updated: 10-Oct-2022 14:02 by Whit Dugan (SEC)[facility] Note - Heme Onc-Follow Up Visiton 33-27-8846Wxwtfn Note - Heme Onc-Follow Up VisitPatient Visit [...] Dr. Rodriguez in oncology at [facility] for evaluation. 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 Bone marrow biopsy was done which was negative for involvement with lymphoma . He also underwent an LP with low yield. Because of his meningeal enhancement and location close to [employer], he was treated with hyperCVAD-MA. He received [...] was compared to this patient's previous biopsy ([id number]). The previous biopsy demonstrated areas of necrosis [...] TP53 mutations. The patient was enrolled on [id number], Venetoclax+RICE. Cycle 1 started 10/29/17. Had tumor [...] pneumonitis. The patient was recently readmitted to [facility] (06/16-06/18/18) for fever and PNA. 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 He completed by mouth Levaquin. The patient was admitted to [facility] (08/18-08/21/18) with a new PE. He [...] CAR T Cell infusion 01/04/19 with tisagenlecleucel (Fl[employer]) with preparative regimen of fludarabine and cytoxan. History of Present Illness: ID Statement: KATERINA DANIELEL is a 61 year old Male (more content not included)...[facility] CenterClinic Note - Intakeon 13-46-5422Bshlkr Note - IntakePatient Visit Information: Visit TypeFollow [...] 3 Weights & HeightsDate: Weight/Scale Type:Height: 15-Aug-2022 12:04974.7 kg 182.5 cm 21-Feb-2022 13:89887 kg 182.5 cm 21-Nov-2021 11:98107.3 kg / standing dqgry451.5 cm SpO2 (%)94 % SpO2 Patient Onroom [...] Updated: 10-Oct-2022 12:45 by Linda Romero (PAKO II)[facility] Medical CenterCBC AUTO DIFFon 27-71-4192RMWA #0.0 103/ulNormal0.0-0.1The [facility]mount HospitalComment on above:Performed By: #### CBC #### [facility] [address] [address] [address] Ladan McdonaldBasophils/100 WBC (Bld)0.3 %Normal0.2-2.0[facility] Comment on above:Performed By: #### CBC #### [facility] [address] [address] [address] Ladan Karimi #0.2 103/ulNormal0.0-0.7The [facility] HospitalComment on above: Performed By: #### CBC #### [facility] [address] [address] [address] Ladan Riveraosinophils/100 WBC (Bld)4.8 %Normal0.9-7.0[facility] Comment on above:Performed By: #### CBC #### [facility] [address] [place] [address] Dr. Ladan Riverarythrocyte distribution width (RBC) [Ratio]16.1 %Critically high 11.0-15.0The [facility] HospitalComment on above:Performed By: #### CBC #### [facility] [address] [address] [address] Ladan McdonaldHematocrit (Bld) [Volume fraction]46.7 %Ceantt93.0-54.0The [facility] HospitalComment on above:Performed By: #### CBC #### [facility] [address] [place] [address] Dr. Ladan McdonaldHemoglobin (Bld) [Mass/Vol]13.6 g/dLCritically low14.0-18.0The [facility] HospitalComment on above:Performed By: #### CBC #### [facility] [address] [place] [address] Dr. Ladan Mott #0.02 10e3/ulNormal0.00-0.03The [facility] HospitalComment on above:Performed By: #### CBC #### [facility] [address] [place] [address] Dr. Ladan Mott %0.5 %Normal0.0-0.5The [facility] HospitalComment on above: Performed By: #### CBC #### [facility] [address] [place] [address] Dr. Ladan Woodson #1.0 103/ulCritically low1.2-3.8The [facility] Comment on above:Performed By: #### CBC #### [facility] [address] [place] [address] Dr. Ladan Tavarezmphocytes/100 WBC (Bld)26.1 %Wrgsqw06.5-60.0The [facility] HospitalComment on above:Performed By: #### CBC #### [facility] [address] [place] [address] Dr. Ladan MarcusUAL DIFF REQNONormalThe [facility]mount HospitalComment on above: Performed By: #### CBC #### [facility] [address] [place] [address] Dr. Ladan Villarreal (RBC) [Entitic mass]26.6 veZixluw56.9-34.0The [facility] HospitalComment on above:Performed By: #### CBC #### [facility] [address] [address] [address] Ladan SherHC (RBC) [Mass/Vol]29.1 g/dLCritically low29.9-35.2The [facility] HospitalComment on above:Performed By: #### CBC #### [facility] [address] [address] [address] Ladan SherV (RBC) [Entitic vol]91.4 xBPxymuv76.0-94.0The [facility] HospitalComment on above:Performed By: #### CBC #### [facility] [address] [address] [address] Ladan Truong #0.4 103/ulNormal0.3-0.8The [facility] HospitalComment on above:Performed By: #### CBC #### [facility] [address] [address] [address] Ladan Barronocytes/100 WBC (Bld)8.8 %Normal1.7-12.0[facility] Comment on above:Performed By: #### CBC #### [facility] [address] [address] [address] Ladan Almazan #2.4 103/ulNormal1.4-6.5The [facility] HospitalComment on above:Performed By: #### CBC #### [facility] [address] [address] [address] Ladan Cruzutrophils/100 WBC (Bld)59.5 %Wjchxi17.0-75.0The [facility] HospitalComment on above:Performed By: #### CBC #### [facility] [address] [address] [address] Ladan Bushlet mean volume (Bld) [Entitic vol]10.1 fLNormal9.5-13.5The [facility] HospitalComment on above:Performed By: #### CBC #### [facility] [address] [address] [address] Ladan McdonaldPLT132 103/ulCritically dog126-120Cvq [facility] Hospital Daytonment on above:Performed By: #### CBC #### [facility] [address] [place] [address] Dr. Ladan McdonaldRBC5.11 106/ulNormal4.70-6.10The [facility] HospitalComharbor oaks hospital on above:Performed By: #### CBC #### [facility] [address] [place] [address] Dr. Ladan McdonaldWBC4.0 103/ulNormal4.0-11.0The [facility] HospitalComharbor oaks hospital on above: Performed By: #### CBC #### [facility] [address] [place] [address] Dr. Ladan Henley 91-39-7038ECF797 U/LCritically bsdy40-805Iks [facility] on above:Performed By: #### MG, LDH, CMP #### [facility] [address] [place] [address] Dr. Ladan McdonaldMAGNESIUMon 14-56-4437Mtslxhauq [Mass/Vol]2.1 mg/dLNormal1.8-2.4 The [facility] HospitalComharbor oaks hospital on above:Performed By: #### MG, LDH, CMP #### [facility] [address] [place] [address] Dr. Ladan White 14(COMP METB)on 36-39-4446Fabxali [Mass/Vol]3.5 g/dLNormal 3.4-5.0The [facility] on above:Performed By: #### MG, LDH, CMP #### [facility] [address] [place] [address] Dr. Ladan McdonaldAlbumin/Globulin [Mass ratio]1.0 {ratio}NormalThe [facility] on above:Performed By: #### MG, LDH, CMP #### [facility] [address] [place] [address] Dr. Ladan BrennanP [Catalytic activity/Vol]121 U/LCritically jgtv97-045Hsi [facility] on above:Performed By: #### MG, LDH, CMP #### [facility] [address] [address] [address] Ladan BrennanT [Catalytic activity/Vol]51 U/AXridtl10-37Ais [facility] HospitalComment on above:Performed By: #### MG, LDH, CMP #### [facility] [address] [address] [address] Ladan McdonaldAnion gap [Moles/Vol]11.7 mmol/LNormalThe [facility] Comment on above:Performed By: #### MG, LDH, CMP #### [facility] [address] [address] [address] Ladan McdonaldAST [Catalytic activity/Vol]33 U/DCgdcga51-24Jnx [facility] HospitalComment on above:Performed By: #### MG, LDH, CMP #### [facility] [address] [place] [address] Dr. Ladan McdonaldBilirubin [Mass/Vol]0.4 mg/dLNormal0.2-1.0[facility] Comment on above:Performed By: #### MG, LDH, CMP #### [facility] [address] [address] [address] Ladan McdonaldCalcium [Mass/Vol]9.4 mg/dLNormal8.5-10.1The [facility] Comment on above:Performed By: #### MG, LDH, CMP #### [facility] [address] [address] [address] Ladan McdonaldChloride [Moles/Vol]104 mmol/MNexvgg99-817Lzi [facility] Comment on above:Performed By: #### MG, LDH, CMP #### [facility] [address] [address] [address] Ladan McdonaldCO2 [Moles/Vol]29.0 mmol/BSqjzyy73.0-32.0The [facility] Comment on above:Performed By: #### MG, LDH, CMP #### [facility] [address] [address] [address] Ladan McdonaldCreatinine [Mass/Vol]1.61 mg/dLCritically high0.70-1.30The [facility] HospitalComment on above:Performed By: #### MG, LDH, CMP #### [facility] [address] [address] [address] Ladan RiveraGFR-AF FVFGFSRT43 mL/min/1.08q4Bunmqdvkbk low>=60The [facility] HospitalComment on above:Performed By: #### MG, LDH, CMP #### [facility] [address] [address] [address] Ladan RiveraGFR-NON AF ZPNXTJGW08 mL/min/1.41d2Jfztkogsse low>=60[facility] CenterComment on above:Performed By: #### MG, LDH, CMP #### [facility] [address] [place] [address] Dr. Ladan McdonaldGlobulin (S) [Mass/Vol]3.6 g/dLNormalThe [facility] HospitalComment on above:Performed By: #### MG, LDH, CMP #### [facility] [address] [place] [address] Dr. Ladan McdonaldGlucose [Mass/Vol]107 mg/dLCritically wtkt45-492Yfi [facility] HospitalComment on above:Performed By: #### MG, LDH, CMP #### [facility] [address] [place] [address] Dr. Ladan McdonaldPotassium [Moles/Vol]4.7 mmol/LNormal3.5-5.1[facility] Comment on above:Performed By: #### MG, LDH, CMP #### [facility] [address] [place] [address] Dr. Ladan McdonaldProtein [Mass/Vol]7.1 g/dLNormal6.4-8.2[facility] Comment on above:Performed By: #### MG, LDH, CMP #### [facility] [address] [place] [address] Dr. Ladan McdonaldSodium [Moles/Vol]140 mmol/OXsfqzx051-818WpnChillicothe Va Medical Center Comment on above:Performed By: #### MG, LDH, CMP #### [facility] [address] [place] [address] Dr. Ladan Fernandez nitrogen [Mass/Vol]27.0 mg/dLCritically high7.0-18.0[facility] CenterComment on above:Performed By: #### MG, LDH, CMP #### [facility] [address] [place], [place] [address] Dr. Ladan Fernandez nitrogen/Creatinine [Mass ratio]16.8 mg/mgNormalThe [facility] HospitalComment on above:Performed By: #### MG, LDH, CMP #### [facility] [address] [place], [place] [address] Dr. Ladan McdonaldPhone Note - Heme Onc-lab requisitionon 68-22-0499Wnywu Note - Heme Onc-lab requisitionPhone Call Information: Patient Demographics: Name: KATERINA DANIELLE Date: 1960 Address: [address] [place] [address] Date and Time: 27-Sep-2022 08:29 Caller Information: call from Primary Phone Number: [phone] Reason for Call: Reason for Calllab requisition Message: Message: Needs lab order sent to [facility] in [place], [place] or [facility] in [place], [place]. Has appointment scheduled for next . Patient called back- fax number to lab at [facility]: [phone] Team Communication: Team Communications: RN printed and this department secretary faxed. Confirmation received 10:21am. Ashley Dugan [...] Updated: 27-Sep-2022 10:26 by Ashley Dugan (UNIT SECT)[facility] CenterPhone Note - Heme Onc-refill medication...on 09-06-2022 Phone Note - Heme Onc-refill medication...Phone Call Information: Patient Demographics: Name: KATERINA DANIELLE Date: 1960 Address: [address] [place] [address] Date and Time: 06-Sep-2022 10:40 Caller Information: call from Call From: patient Primary Phone Number: [phone] Reason for Call: Reason for Callrefill medication Message: Message: Patient fills Gabapentin with [facility]. He has 14 pills left. They will not refill for him until 09/22/22 and then say it will be 1-2 weeks before delivery. He will be out of medication by then. Asking if office can rectify Team Communication: Clinician note: contacted patient Disposition: Rx sent by eprescribe Team Communications: Spoke with Yas at [facility]. States patient needs a refill for gabapentin sent in and then he will be able to receive the medication within 7 business days or less. Tea Oro 09/06/2022 11:[address] Sears: KATERINA DANIELLE ([id number]): Needs refill of gabapentin 300mg daily please [...] Updated: 06-Sep-2022 11:22 by Tea Oro (N MGR)[facility] CenterClinic Note - Heme Onc-Follow Up Visiton 59-30-3574Ytvycm Note - Heme Onc-Follow Up VisitPatient Visit [...] Dr. Rodriguez in oncology at [facility] for evaluation. 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 Bone marrow biopsy was done which was negative for involvement with lymphoma . He also underwent an LP with low yield. Because of his meningeal enhancement and location close to [employer], he was treated with hyperCVAD-MA. He received [...] was compared to this patient's previous biopsy ([id number]). The previous biopsy demonstrated areas of necrosis [...] TP53 mutations. The patient was enrolled on [id number], Venetoclax+RICE. Cycle 1 started 10/29/17. Had tumor [...] pneumonitis. The patient was recently readmitted to [facility] (06/16-06/18/18) for fever and PNA. 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 He completed by mouth Levaquin. The patient was admitted to [facility] (08/18-08/21/18) with a new PE. He [...] CAR T Cell infusion 01/04/19 with tisagenlecleucel (FlattrAeluros/[employer]) with preparative regimen of fludarabine and cytoxan. History of Present Illness: ID Statement: KATERINA DANIELLE is a 61 year old Male (more content not included)...NormalEast [facility] HospitalClinic Note - Intakeon 36-46-3375Ryvtjq Note - IntakePatient Visit Information: Visit TypeFollow [...] 3 Weights & HeightsDate: Weight/Scale Type:Height: 21-Feb-2022 13:25265 kg 182.5 cm 21-Nov-2021 11:89799.3 kg / standing .5 cm 23-Aug-2021 13:04970.3 kg / standing .5 cm SpO2 (%)94 [...] the patient using an assistive deviceno Spiritual/Procedural: Spiritual/cultural/islam practices important for us to knowno Adv Dir: [facility] [place] Declaration of Mental Health Treatmentno Violence: Are you or have you been threatened or abused physically,emotionally or sexually abused by anyoneno Do you feel UNSAFE going back to the place you are livingno Depression: Past 2 wks: [place] down, depressed or hopelessno Past 2 wks: [place] little interest/pleasure doing thingsno Any Thoughts of [...] hearing,speaking, seeing, moving around or learningno Other Rievra Learnerno Electronic Signatures: Linda Romero (PAKO PAGAN) (Signed 15-Aug-2022 12:44) Authored: Patient Visit Information, Vital Signs, Allergies, Outpatient Medication Profile, Notification, Travel History, Falls, Spiritual/Procedural, Adv Dir, Violence, Depression, Substance, Nutrition/Learning Last Updated: 15-Aug-2022 12:44 by Linda Romero (PAKO PAGAN)[facility] CenterCBC AUTO DIFFon 12-74-1650LUKY #0.0 103/ulNormal0.0-0.1[facility] Medical CenterComment on above:Performed By: #### CBC #### [facility] [address] [place] [address] Dr. Pickering ChangBasophils/100 WBC (Bld)0.5 %Normal0.2-2.0[facility] Comment on above:Performed By: #### CBC #### [facility] [address] [address] [address] Ladan Karimi #0.2 103/ulNormal0.0-0.7The [facility]mount HospitalComment on above: Performed By: #### CBC #### [facility] [address] [address] [address] Ladan Riveraosinophils/100 WBC (Bld)4.3 %Normal0.9-7.0[facility] Comment on above:Performed By: #### CBC #### [facility] [address] [place] [address] Dr. Ladan Riverarythrocyte distribution width (RBC) [Ratio]15.7 %Critically high 11.0-15.0The [facility] Daytonment on above:Performed By: #### CBC #### [facility] [address] [place] [address] Dr. Ladan McdonaldHematocrit (Bld) [Volume fraction]44.2 %Nsygaf30.0-54.0The [facility] HospitalComment on above:Performed By: #### CBC #### [facility] [address] [place] [address] Dr. Ladan McdonaldHemoglobin (Bld) [Mass/Vol]14.0 g/oCUgwsdd58.0-18.0The [facility] Daytonment on above:Performed By: #### CBC #### [facility] [address] [place] [address] Dr. Ladan Mott #0.06 10e3/ulCritically high0.00-0.03The [facility] Comment on above:Performed By: #### CBC #### [facility] [address] [place] [address] Dr. Ladan Mott %1.5 %Critically high0.0-0.5The [facility] Daytonment on above:Performed By: #### CBC #### [facility] [address] [place] [address] Dr. Ladan MeadH #1.4 103/ulNormal1.2-3.8The [facility] HospitalComment on above:Performed By: #### CBC #### [facility] [address] [place] [address] Dr. Ladan Tavarezmphocytes/100 WBC (Bld)35.2 %Obnioy20.5-60.0The [facility] Daytonment on above:Performed By: #### CBC #### [facility] [address] [place] [address] Dr. Ladan MarcusUAL DIFF REQNONormalThe [facility]mount HospitalComment on above: Performed By: #### CBC #### [facility] [address] [address] [address] Ladan Sher (RBC) [Entitic mass]26.4 qvOkjuzk95.9-34.0The [facility] HospitalComment on above:Performed By: #### CBC #### [facility] [address] [place] [address] Dr. Ladan Sher (RBC) [Mass/Vol]31.7 g/dESavqur68.9-35.2The [facility] HospitalComment on above:Performed By: #### CBC #### [facility] [address] [place] [address] Dr. Ladan Sher (RBC) [Entitic vol]83.2 oAEbmhtw02.0-94.0The [facility] HospitalComment on above:Performed By: #### CBC #### [facility] [address] [place] [address] Dr. Ladan Truong #0.3 103/ulNormal0.3-0.8The [facility] HospitalComment on above:Performed By: #### CBC #### [facility] [address] [place] [address] Dr. Ladan Barronocytes/100 WBC (Bld)6.4 %Normal1.7-12.0[facility] Comment on above:Performed By: #### CBC #### [facility] [address] [place] [address] Dr. Ladan CruzUT #2.0 103/ulNormal1.4-6.5The [facility] HospitalComment on above:Performed By: #### CBC #### [facility] [address] [place] [address] Dr. Ladan Cruzutrophils/100 WBC (Bld)52.1 %Mdqsyr34.0-75.0The [facility] HospitalComment on above:Performed By: #### CBC #### [facility] [address] [place] [address] Dr. Ladan Bushlet mean volume (Bld) [Entitic vol]9.4 fLCritically low 9.5-13.5The [facility] HospitalComment on above:Performed By: #### CBC #### [facility] [address] [address] [address] Ladan McdonaldPLT137 103/ulCritically xuc115-974Cyc [facility] HospitalComment on above:Performed By: #### CBC #### [facility] [address] [place] [address] Dr. Ladan McdonaldRBC5.31 106/ulNormal4.70-6.10The [facility] HospitalComment on above:Performed By: #### CBC #### [facility] [address] [place] [address] Dr. Ladan McdonaldWBC3.9 103/ulCritically low4.0-11.0The [facility] HospitalComment on above:Performed By: #### CBC #### [facility] [address] [place] [address] Dr. Ladan GrafHofelicia 31-82-7652ILR123 U/NItqmds27-600Kix [facility] Comment on above:Performed By: #### MG, LDH, CMP #### [facility] [address] [place] [address] Dr. Ladan McdonaldMAGNESIUMon 68-54-7538Bdejesrsk [Mass/Vol]2.1 mg/dLNormal1.8-2.4 The [facility] HospitalComment on above:Performed By: #### MG, LDH, CMP #### [facility] [address] [place] [address] Dr. Ladan McdonaldPROF 14(COMP METB)on 42-09-5130Gmodfws [Mass/Vol]3.5 g/dLNormal 3.4-5.0The [facility] HospitalComment on above:Performed By: #### MG, LDH, CMP #### [facility] [address] [place] [address] Dr. Ladan McdonaldAlbumin/Globulin [Mass ratio]0.9 {ratio}NormalThe [facility]mount HospitalComment on above:Performed By: #### MG, LDH, CMP #### [facility] [address] [place] [address] Dr. Ladan BrennanP [Catalytic activity/Vol]118 U/LCritically tjen08-490Pft [facility] HospitalComment on above:Performed By: #### MG, LDH, CMP #### [facility] [address] [address] [address] Ladan BrennanT [Catalytic activity/Vol]46 U/JLaedgx91-97Hjb [facility] HospitalComment on above:Performed By: #### MG, LDH, CMP #### [facility] [address] [address] [address] Ladan Palafoxon gap [Moles/Vol]8.7 mmol/LNormalThe [facility]mount HospitalComment on above:Performed By: #### MG, LDH, CMP #### [facility] [address] [place] [address] Dr. Ladan McdonaldAST [Catalytic activity/Vol]30 U/XEsvnfd08-33Mbj [facility] HospitalComment on above:Performed By: #### MG, LDH, CMP #### [facility] [address] [place] [address] Dr. Ladan McdonaldBilirubin [Mass/Vol]0.4 mg/dLNormal0.2-1.0[facility] Comment on above:Performed By: #### MG, LDH, CMP #### [facility] [address] [place] [address] Dr. Ladan McdonaldCalcium [Mass/Vol]9.1 mg/dLNormal8.5-10.1[facility] Comment on above:Performed By: #### MG, LDH, CMP #### [facility] [address] [place] [address] Dr. Ladan McdonaldChloride [Moles/Vol]106 mmol/OGontyi78-760Dfq [facility] Comment on above:Performed By: #### MG, LDH, CMP #### [facility] [address] [place] [address] Dr. Ladan McdonaldCO2 [Moles/Vol]31.9 mmol/UAtjiot36.0-32.0[facility] Comment on above:Performed By: #### MG, LDH, CMP #### [facility] [address] [address] [address] Ladan McdonaldCreatinine [Mass/Vol]1.68 mg/dLCritically high0.70-1.30The [facility] HospitalComment on above:Performed By: #### MG, LDH, CMP #### [facility] [address] [place] [address] Dr. Ladan RiveraGFR-AF UKATDCWN12 mL/min/1.59o6Oyohzomkxs low>=60The [facility] HospitalComment on above:Performed By: #### MG, LDH, CMP #### [facility] [address] [place] [address] Dr. Ladan RiveraGFR-NON AF FDAAVZKL50 mL/min/1.36e6Hqzvjwqgkx low>=60The [facility] HospitalComment on above:Performed By: #### MG, LDH, CMP #### [facility] [address] [place] [address] Dr. Ladan McdonaldGlobulin (S) [Mass/Vol]3.7 g/dLNormalThe [facility] HospitalComment on above:Performed By: #### MG, LDH, CMP #### [facility] [address] [place] [address] Dr. Ladan McdonaldGlucose [Mass/Vol]110 mg/dLCritically fozp09-298Gda [facility] on above:Performed By: #### MG, LDH, CMP #### [facility] [address] [place] [address] Dr. Ladan McdonaldPotassium [Moles/Vol]4.6 mmol/LNormal3.5-5.1[facility] Comment on above:Performed By: #### MG, LDH, CMP #### [facility] [address] [place] [address] Dr. Ladan McdonaldProtein [Mass/Vol]7.2 g/dLNormal6.4-8.2[facility] Comment on above:Performed By: #### MG, LDH, CMP #### [facility] [address] [place] [address] Dr. Yilan ChangSodium [Moles/Vol]142 mmol/WSiguzf397-205Zqw [facility] Comment on above:Performed By: #### MG, LDH, CMP #### [facility] [address] [address] [address] Ladan Fernandez nitrogen [Mass/Vol]24.0 mg/dLCritically high7.0-18.0[facility] CenterComment on above:Performed By: #### MG, LDH, CMP #### [facility] [address] [address] [address] Ladan Fernandez nitrogen/Creatinine [Mass ratio]14.3 mg/mgNormalThProMedica Bay Park HospitalComment on above:Performed By: #### MG, LDH, CMP #### [facility] [address] [address] [address] Ladan Miller Note - Heme Onc-lab requisition - Mailing lab reqon [id number] Note - Heme Onc-lab requisition - Mailing lab reqPhone Call Information: Patient Demographics: Name: KATERINA DANIELLE Date: 1960 Address: [address] [place] [address] Date and Time: 06-Aug-2022 10:58 Caller Information: call from Primary Phone Number: [phone] Reason for Call: Reason for Calllab requisition, [...] Last Updated: 06-Aug-2022 11:16 by Zofia Smith (RN)[facility] Von [id number] CHEST 2 VEXAMINATION: XR CHEST 2 V [...] Electronically authenticated by: JS LÓPEZ Date: 2022-07-18 15:06[facility] ([facility]-Nephrology - Established)on 07-16-2022 Follow-up visitDiagnoses/Problems CKD (chronic kidney disease), stage III (585.3) (N18.30) Benign essential HTN (401.1) (I10) Hyperparathyroidism, secondary (588.81) (N25.81) Orders Benign essential HTN, CKD (chronic kidney disease), stage III, Hyperparathyroidism, secondary Basic Metabolic Panel; Status:Active; Requested for:22Ebo8180; Parathormone Intact, Serum; Status:Active; Requested for:34Cmj4601; Phosphorus, Serum; Status:Active; Requested for:69Viy1084; Provider Impressions 1- CKD III: His Cr [...] TouchworksCOVID-19 SOFIAOrdered By: Victor Hugo Farrell on 80-26-3031BHDO-CoV+SARS-CoV-2 (COVID-19) Ag IA.rapid Ql (Resp)NegativeNegative [facility] HospitalComment on above:This is a duplicate Mariella SARS Antigen (JOE) result to be used for statistical tracking purpose only.No Panel InformationOrdered By: Victor Hugo Farrell on 10-75-2688OHLU Antigen (LFIA)[facility] HospitalECHOCARDIO M/2D COMPLETEon [id number] M/2D COMPLETEPatient: KATERINA DANIELLE Exam Date: 04/01/2022 : 1960 Gender:M Ordering : DR NAEL FARIAS . Admission #: [id number] Family : Order #: [id number] CLICK HERE TO VIEW EXAM ECHOCARDIOGRAM REPORT [...] Perkins M.D. on 04/02/2022 at 18:37[facility] HospitalLACTATE DEHYDROGENASE (LD) ISOENZYMESon [id number] FRACTION 116 % Critically fyx11-24Ven [facility] on above:Result Comment: Performed at: BNPerformed By: #### LDISO #### [facility] [address] [place] [address] Dr. Ladan Graf FRACTION 233 %Jcuozs27-09Irp [facility] on above:Result Comment: Performed at: BNPerformed By: #### LDISO #### [facility] [address] [place] [address] Dr. Ladan Graf FRACTION 323 %Ctycnz17-12Ztx [facility] on above:Result Comment: Performed at: BNPerformed By: #### LDISO #### [facility] [address] [address] [address] Ladan Graf FRACTION 413 %Normal5-13The [facility] HospitalComment on above: Result Comment: Performed at: BNPerformed By: #### LDISO #### [facility] [address] [place], [place] [address] Dr. Ladan Graf FRACTION 515 %Normal4-20The [facility] HospitalComhar[facility] oaks hospital on above: Result Comment: Performed at: BNPerformed By: #### LDISO #### [facility] [address] [place], [place] [address] Dr. Ladan GrafH245 IU/LCritically iyhd649-335DkpChillicothe Va Medical CenterComment on above:Result Comment: Performed at: CBPerformed By: #### LDISO #### [facility] [address] [place], [place] [address] Dr. Ladan De La FuenteC AND DIFFERENTIALon 02-21-2022% AUTOMATED IMMATURE GRAN CanceledNormalSt. [facility] NorthComharbor oaks hospital on above:Order Comment: TEST CBC AND DIFFERENTIAL WAS CANCELLED, 02/21/2022 14:13 Cancelled per Zofia.Result Comment: Immature Granulocyte Count (IG) includes promyelocytes, myelocytes and metamyelocytes but does not include bands. Percent differential counts (%) should be interpreted in the context of the absolute cell counts (cells/L).Performed By: #### CBCDF #### [address] [place] [address]% BASOPHILCanceledNormalSt. [facility] NorthComhar[facility] oaks hospital on above:Order Comment: TEST CBC AND DIFFERENTIAL WAS CANCELLED, 02/21/2022 14:13 Cancelled per Zofia.Performed By: #### CBCDF #### [address] [place] [address]% EOSINOPHILCanceledNormalSt. [facility] NorthComhar[facility] oaks hospital on above:Order Comment: TEST CBC AND DIFFERENTIAL WAS CANCELLED, 02/21/2022 14:13 Cancelled per Zofia.Performed By: #### CBCDF #### [address] [place] [address]% LYMPHOCYTECanceledNormalSt. [facility] NorthComhar[facility] oaks hospital on above:Order Comment: TEST CBC AND DIFFERENTIAL WAS CANCELLED, 02/21/2022 14:13 Cancelled per Zofia.Performed By: #### CBCDF #### [address] [place] [address]% MONOCYTECanceledNormalSt. [facility]Comhar[facility] o[facility] hospital on above:Order Comment: TEST CBC AND DIFFERENTIAL WAS CANCELLED, 02/21/2022 14:13 Cancelled per Zofia.Performed By: #### CBCDF #### [address] [place] [address]% NEUTROPHILCanceledNormalSt. [facility]Com[facility] o[facility] hospital on above:Order Comment: TEST CBC AND DIFFERENTIAL WAS CANCELLED, 02/21/2022 14:13 Cancelled per Zofia.Performed By: #### CBCDF #### [address] [place], [place] [address]MLFDYSZYGixfipoeNotntkNk. [facility]Com[facility] on above: Order Comment: TEST CBC AND DIFFERENTIAL WAS CANCELLED, 02/21/2022 14:13 Cancelled per Zofia.Performed By: #### CBCDF #### [address] [place], [place] [address]ZSJGXRZCMYKTVvnzncfxVbosawPp. [facility]Com[facility] on above:Order Comment: TEST CBC AND DIFFERENTIAL WAS CANCELLED, 02/21/2022 14:13 Cancelled per Zofia.Performed By: #### CBCDF #### [address] [place], [place] [address]ZMZNBREYESBlimyhdxZwswkeWf. [facility] on above:Order Comment: TEST CBC AND DIFFERENTIAL WAS CANCELLED, 02/21/2022 14:13 Cancelled per Zofia.Performed By: #### CBCDF #### [address] [place], [place] [address]NUDDezxphltLoxnpjSs. [facility]Com[facility] on above:Order Comment: TEST CBC AND DIFFERENTIAL WAS CANCELLED, 02/21/2022 14:13 Cancelled per Zofia.Performed By: #### CBCDF #### [address] [place], [place] [address]OCGYktxfbgxTtxnleCj. [facility]Com[facility] on above:Order Comment: TEST CBC AND DIFFERENTIAL WAS CANCELLED, 02/21/2022 14:13 Cancelled per Zofia.Performed By: #### CBCDF #### [address] [place], [place] [address]VKLJYXKJQPKogsvcdlTzgayzEs. [facility] on above:Order Comment: TEST CBC AND DIFFERENTIAL WAS CANCELLED, 02/21/2022 14:13 Cancelled per Zofia.Performed By: #### CBCDF #### [address] [place], [place] [address]KJRANapjgfrnTcspxnJl. [facility]Com[facility] on above: Order Comment: TEST CBC AND DIFFERENTIAL WAS CANCELLED, 02/21/2022 14:13 Cancelled per Zofia.Performed By: #### CBCDF #### [address] [place], [place] [address]PDGLmmjcutjGhfqkxJo. [facility] on above:Order Comment: TEST CBC AND DIFFERENTIAL WAS CANCELLED, 02/21/2022 14:13 Cancelled per Zofia.Performed By: #### CBCDF #### [address] [place], [place] [address]CSADVLDTSbhqseioJpcreeAu. [facility] on above: Order Comment: TEST CBC AND DIFFERENTIAL WAS CANCELLED, 02/21/2022 14:13 Cancelled per Zofia.Performed By: #### CBCDF #### [address] [place], [place] [address]LFNEXKNLLAOgpbdychDipwdjPz. [facility] on above:Order Comment: TEST CBC AND DIFFERENTIAL WAS CANCELLED, 02/21/2022 14:13 Cancelled per Zofia.Performed By: #### CBCDF #### [address] [place], [place] [address]IKWPvcpvsnvCeyrbiLi. [facility]Com[facility] on above:Order Comment: TEST CBC AND DIFFERENTIAL WAS CANCELLED, 02/21/2022 14:13 Cancelled per Zofia.Performed By: #### CBCDF #### [address] [place], [place] [address]NXAScklnyuqRkmedqXl. [facility] NorthComment on above:Order Comment: TEST CBC AND DIFFERENTIAL WAS CANCELLED, 02/21/2022 14:13 Cancelled per Zofia.Performed By: #### CBCDF #### [address] [place], [place] [address]BHQ-FUTrkfpbhkGejejbNh. [facility]Com[facility] on above: Order Comment: TEST CBC AND DIFFERENTIAL WAS CANCELLED, 02/21/2022 14:13 Cancelled per Zofia.Performed By: #### CBCDF #### [address] [place], [place] [address]AEDRbhmhapmIobtitNy. [facility] NorthComment on above:Order Comment: TEST CBC AND DIFFERENTIAL WAS CANCELLED, 02/21/2022 14:13 Cancelled per Zofia.Performed By: #### CBCDF #### [address] [place], [place] [address]XKKGCOGKDCUBY PANELon 67-72-5571LVWKFECRtbslfyjFjjpegTb. [facility] NorthComment on above:Order Comment: TEST COMPREHENSIVE PANEL WAS CANCELLED, 02/21/2022 14:13 Cancelled per Zofia.Performed By: #### CMP #### [address] [place], [place] [address]BHEDWMKY PHOSPHATASECanceledNormalSt. [facility] Comment on above:Order Comment: TEST COMPREHENSIVE PANEL WAS CANCELLED, 02/21/2022 14:13 Cancelled per Zofia.Performed By: #### CMP #### [address] [place], [place] [address]DWSGpldhjgeJulgvqWv. [facility] NorthComment on above:Order Comment: TEST COMPREHENSIVE PANEL WAS CANCELLED, 02/21/2022 14:13 Cancelled per Zofia.Result Comment: Patients treated with Sulfasalazine may generate falsely decreased results for ALT.Performed By: #### CMP #### [address] [place], [place] [address]UQNPY GAPCanceledNormalSt. [facility] NorthComhar[facility]aks hospital on above:Order Comment: TEST COMPREHENSIVE PANEL WAS CANCELLED, 02/21/2022 14:13 Cancelled per Zofia.Performed By: #### CMP #### [address] [place], [place] [address]FFTLqzndtnfEfmfntRg. [facility]Com[facility] on above:Order Comment: TEST COMPREHENSIVE PANEL WAS CANCELLED, 02/21/2022 14:13 Cancelled per Zofia.Performed By: #### CMP #### [address] [place], [place] [address]SYBINIEOWGRCahlkuxdAwdhxyCi. [facility] on above:Order Comment: TEST COMPREHENSIVE PANEL WAS CANCELLED, 02/21/2022 14:13 Cancelled per Zofia.Performed By: #### CMP #### [address] [place], [place] [address]OXJHATVRD,TOTALCanceledNormalSt. [facility] NorthCom[facility] hospital on above:Order Comment: TEST COMPREHENSIVE PANEL WAS CANCELLED, 02/21/2022 14:13 Cancelled per Zofia.Performed By: #### CMP #### [address] [place], [place] [address]YVOIUXASqumlgizWfbpfgWl. [facility] on above: Order Comment: TEST COMPREHENSIVE PANEL WAS CANCELLED, 02/21/2022 14:13 Cancelled per Zofia.Performed By: #### CMP #### [address] [place], [place] [address]NOSIJFQMAnupcgjyVmehdwCo. [facility] on above: Order Comment: TEST COMPREHENSIVE PANEL WAS CANCELLED, 02/21/2022 14:13 Cancelled per Zofia.Performed By: #### CMP #### [address] [place], [place] [address]BPDUDSGCWCAszfgzryFziwmnYj. [facility] on above:Order Comment: TEST COMPREHENSIVE PANEL WAS CANCELLED, 02/21/2022 14:13 Cancelled per Zofia.Performed By: #### CMP #### [address] [place], [place] [address]zTJK FEMALECanceledNormalSt. [facility] Medical Center NorthComment on above:Order Comment: TEST COMPREHENSIVE PANEL WAS CANCELLED, 02/21/2022 14:13 Cancelled per Zofia.Result Comment: CALCULATIONS OF ESTIMATED GFR ARE PERFORMED USING THE 2020 CKD-EPI STUDY REFIT EQUATION WITHOUT THE RACE VARIABLE FOR THE IDMS-TRACEABLE CREATININE METHODS. https://jasn.asnjournals.org/content/early/ASN.9127976659Lbfhmrmyp By: #### CMP #### [address] [place], [place] [address]eTPA MALECanceledNormalSt. [facility] Medical Center NorthComment on above:Order Comment: TEST COMPREHENSIVE PANEL WAS CANCELLED, 02/21/2022 14:13 Cancelled per Zofia.Result Comment: CALCULATIONS OF ESTIMATED GFR ARE PERFORMED USING THE 2020 CKD-EPI STUDY REFIT EQUATION WITHOUT THE RACE VARIABLE FOR THE IDMS-TRACEABLE CREATININE METHODS. https://jasn.asnjournals.org/content/earlyASN.6406781707Vkosfidsr By: #### CMP #### [address] [place], [place] [address]BZJYAJRAazkbvojAbiwweSp. [facility] NorthComment on above: Order Comment: TEST COMPREHENSIVE PANEL WAS CANCELLED, 02/21/2022 14:13 Cancelled per Zofia.Performed By: #### CMP #### [address] [place], [place] [address]DQNJFVKDUBvtbxbasUuflrxMv. [facility] NorthComment on above:Order Comment: TEST COMPREHENSIVE PANEL WAS CANCELLED, 02/21/2022 14:13 Cancelled per Zofia.Performed By: #### CMP #### [address] [place], [place] [address]FHRQFECyozajigJuopepXy. [facility] NorthComment on above: Order Comment: TEST COMPREHENSIVE PANEL WAS CANCELLED, 02/21/2022 14:13 Cancelled per Zofia.Performed By: #### CMP #### [address] [place], [place] [address]RBGLG PROTEINCanceledNormalSt. [facility] Medical Center NorthComment on above:Order Comment: TEST COMPREHENSIVE PANEL WAS CANCELLED, 02/21/2022 14:13 Cancelled per Zofia.Performed By: #### CMP #### [address] [place], [place] [address]LEIW NITROGENCanceledNormalSt. [facility] Medical Center NorthComment on above:Order Comment: TEST COMPREHENSIVE PANEL WAS CANCELLED, 02/21/2022 14:13 Cancelled per Zofia.Performed By: #### CMP #### [address] [place], [place] [address]BDUca 52-45-8721GGJOovyrimvDhrzkjAf. [facility] Comment on above:Order Comment: TEST LDH WAS CANCELLED, 02/21/2022 14:13 Cancelled per Zofia.Performed By: #### LDH #### [facility] [address] [address] [place], [place] [address]GOQ AUTO DIFFon [id number] #0.0 103/ulNormal0.0-0.1[facility] CenterComment on above:Performed By: #### CBC #### [facility] [address] [address] [address] Ladan McdonaldBasophils/100 WBC (Bld)0.6 %Normal0.2-2.0[facility] Comment on above:Performed By: #### CBC #### [facility] [address] [address] [address] Ladan Karimi #0.1 103/ulNormal0.0-0.7The [facility] HospitalComment on above: Performed By: #### CBC #### [facility] [address] [address] [address] Ladan Riveraosinophils/100 WBC (Bld)2.0 %Normal0.9-7.0[facility] Comment on above:Performed By: #### CBC #### [facility] [address] [place] [address] Dr. Ladan Riverarythrocyte distribution width (RBC) [Ratio]15.4 %Critically high 11.0-15.0The [facility] HospitalComment on above:Performed By: #### CBC #### [facility] [address] [place] [address] Dr. Ladan McdonaldHematocrit (Bld) [Volume fraction]44.7 %Twxcqb05.0-54.0The [facility] HospitalComment on above:Performed By: #### CBC #### [facility] [address] [place] [address] Dr. Ladan McdonaldHemoglobin (Bld) [Mass/Vol]14.3 g/vXKavquh71.0-18.0The [facility] HospitalComment on above:Performed By: #### CBC #### [facility] [address] [place] [address] Dr. Ladan Mott #0.02 10e3/ulNormal0.00-0.03The [facility] HospitalComment on above:Performed By: #### CBC #### [facility] [address] [place] [address] Dr. Ladan Mott %0.6 %Critically high0.0-0.5The [facility] HospitalComment on above:Performed By: #### CBC #### [facility] [address] [place] [address] Dr. Ladan MeadH #0.9 103/ulCritically low1.2-3.8[facility] Comment on above:Performed By: #### CBC #### [facility] [address] [place] [address] Dr. Ladan Tavarezmphocytes/100 WBC (Bld)26.6 %Zypdck20.5-60.0The [facility] HospitalComment on above:Performed By: #### CBC #### [facility] [address] [place] [address] Dr. Ladan MarcusUAL DIFF REQNONormalThe Niki HospitalComment on above: Performed By: #### CBC #### [facility] [address] [place] [address] Dr. Ladan Sher (RBC) [Entitic mass]26.2 paBjxdeb98.9-34.0The [facility] HospitalComment on above:Performed By: #### CBC #### [facility] [address] [place] [address] Dr. Ladan Sher (RBC) [Mass/Vol]32.0 g/nVUnkmvw68.9-35.2The [facility] HospitalComment on above:Performed By: #### CBC #### [facility] [address] [place] [address] Dr. Ladan Sher (RBC) [Entitic vol]82.0 cRIsmgga15.0-94.0The [facility] HospitalComment on above:Performed By: #### CBC #### [facility] [address] [place] [address] Dr. Ladan Truong #0.3 103/ulNormal0.3-0.8The [facility] HospitalComment on above:Performed By: #### CBC #### [facility] [address] [place] [address] Dr. Ladan Barronocytes/100 WBC (Bld)8.9 %Normal1.7-12.0[facility] Comment on above:Performed By: #### CBC #### [facility] [address] [place] [address] Dr. Ladan Almazan #2.2 103/ulNormal1.4-6.5The [facility] HospitalComment on above:Performed By: #### CBC #### [facility] [address] [place] [address] Dr. Ladan Cruzutrophils/100 WBC (Bld)61.3 %Kmsdez97.0-75.0The [facility] HospitalComment on above:Performed By: #### CBC #### [facility] [address] [place] [address] Dr. Ladan Bushlet mean volume (Bld) [Entitic vol]9.7 fLNormal9.5-13.5The [facility] HospitalComment on above:Performed By: #### CBC #### [facility] [address] [place] [address] Dr. Ladan McdonaldPLT115 103/ulCritically aua467-340Cdf [facility] HospitalComment on above:Performed By: #### CBC #### [facility] [address] [place] [address] Dr. Ladan McdonaldRBC5.45 106/ulNormal4.70-6.10The [facility] HospitalComment on above:Performed By: #### CBC #### [facility] [address] [place] [address] Dr. Ladan McdonaldWBC3.5 103/ulCritically low4.0-11.0The [facility] HospitalComhar[facility]aks hospital on above:Performed By: #### CBC #### [facility] [address] [place] [address] Dr. Ladan White 14(COMP METB)on 34-67-8771Dvqoylc [Mass/Vol]3.7 g/dLNormal 3.4-5.0[facility] CenterComment on above:Performed By: #### MG, LDH, CMP #### [facility] [address] [place] [address] Dr. Ladan McdonaldAlbumin/Globulin [Mass ratio]1.1 {ratio}NormalThe [facility] on above:Performed By: #### MG, LDH, CMP #### [facility] [address] [place] [address] Dr. Ladan Peraza [Catalytic activity/Vol]121 U/LCritically npgq53-628Stu [facility] HospitalComment on above:Performed By: #### MG, LDH, CMP #### [facility] [address] [place] [address] Dr. Ladan French [Catalytic activity/Vol]55 U/EPddewl02-14Hjc [facility] HospitalComment on above:Performed By: #### MG, LDH, CMP #### [facility] [address] [place] [address] Dr. Ladan Hernandez gap [Moles/Vol]11.7 mmol/LNormalChillicothe Va Medical Center Comment on above:Performed By: #### MG, LDH, CMP #### [facility] [address] [address] [address] Ladan McdonaldAST [Catalytic activity/Vol]40 U/LCritically etgh59-89Mdv [facility] HospitalComment on above:Performed By: #### MG, LDH, CMP #### [facility] [address] [address] [address] Ladan McdonaldBilirubin [Mass/Vol]0.5 mg/dLNormal0.2-1.0[facility] Comment on above:Performed By: #### MG, LDH, CMP #### [facility] [address] [address] [address] Ladan McdonaldCalcium [Mass/Vol]9.2 mg/dLNormal8.5-10.1[facility] Comment on above:Performed By: #### MG, LDH, CMP #### [facility] [address] [address] [address] Ladan McdonaldChloride [Moles/Vol]107 mmol/AJlnoza02-519RdjChillicothe Va Medical Center Comment on above:Performed By: #### MG, LDH, CMP #### [facility] [address] [address] [address] Ladan McdonaldCO2 [Moles/Vol]28.3 mmol/SCdrevx24.0-32.0[facility] Comment on above:Performed By: #### MG, LDH, CMP #### [facility] [address] [address] [address] Ladan McdonaldCreatinine [Mass/Vol]1.97 mg/dLCritically high0.70-1.30The [facility] HospitalComment on above:Performed By: #### MG, LDH, CMP #### [facility] [address] [address] [address] Pickering ChangEGFR-AF UPYMLXPO57 mL/min/1.33n9Abpzeyhskm low>=60The [facility] HospitalComment on above:Performed By: #### MG, LDH, CMP #### [facility] [address] [place] [address] Dr. Ladan RiveraGFR-NON AF ACDOCOEB71 mL/min/1.25s0Txljgkcxpq low>=60The [facility] HospitalComment on above:Performed By: #### MG, LDH, CMP #### [facility] [address] [place] [address] Dr. Ladan McdonaldGlobulin (S) [Mass/Vol]3.5 g/dLNormalThe [facility] HospitalComment on above:Performed By: #### MG, LDH, CMP #### [facility] [address] [place] [address] Dr. Ladan McdonaldGlucose [Mass/Vol]114 mg/dLCritically yoit75-653Xzl Mary[facility] HospitalComment on above:Performed By: #### MG, LDH, CMP #### [facility] [address] [place] [address] Dr. Ladan McdonaldPotassium [Moles/Vol]4.0 mmol/LNormal3.5-5.1[facility] Comment on above:Performed By: #### MG, LDH, CMP #### [facility] [address] [place] [address] Dr. Ladan McdonaldProtein [Mass/Vol]7.2 g/dLNormal6.4-8.2[facility] Comment on above:Performed By: #### MG, LDH, CMP #### [facility] [address] [place] [address] Dr. Ladan McdonaldSodium [Moles/Vol]143 mmol/NGfiuey258-060Qiq [facility] Comment on above:Performed By: #### MG, LDH, CMP #### [facility] [address] [place] [address] Dr. Ladan McdonaldUrea nitrogen [Mass/Vol]26.0 mg/dLCritically high7.0-18.0The [facility] HospitalComment on above:Performed By: #### MG, LDH, CMP #### [facility] [address] [place] [address] Dr. Ladan McdonaldUrea nitrogen/Creatinine [Mass ratio]13.2 mg/mgNoKettering Health Behavioral Medical CenterComment on above:Performed By: #### MG, LDH, CMP #### [facility] [address] [address] [address] Ladan McdonaldCBC AND DIFFERENTIALon 11-14-2021% AUTOMATED IMMATURE GRAN1.2 % High0.0 - 0.9[facility] NorthComment on above:Result Comment: Immature Granulocyte Count (IG) includes promyelocytes, myelocytes and metamyelocytes but does not include bands. Percent differential counts (%) should be interpreted in the context of the absolute cell counts (cells/L).Performed By: #### CBCDF #### [address] [address]Tdqayvesk (Bld) [#/Vol]0.01 10*3/uLNormal0.00 - 0.10St[facility] NorthComment on above:Performed By: #### CBCDF #### [address] [address]Pvdpadbwb/100 WBC (Bld)0.2 %Normal0.0 - 2.0[facility] NorthComment on above:Performed By: #### CBCDF #### [address] [address]Vlfmwrzyywd (Bld) [#/Vol]0.04 10*3/uLNormal0.00 - 0.70[facility] NorthComment on above:Performed By: #### CBCDF #### [address] [address]Xuwltjludhu/100 WBC (Bld)1.0 %Normal0.0 - 6.0[facility] NorthComment on above:Performed By: #### CBCDF #### [address] [address]Lhdvzaedbef distribution width (RBC) [Ratio]15.0 %High11.5 - 14.5[facility] NorthComment on above:Performed By: #### CBCDF #### [address] [place], [place] [address]Cejqtjfesv (Bld) [Volume fraction]48.2 %Gzxcve70.0 - 52.0[facility] NorthComment on above:Performed By: #### CBCDF #### [address] [place], [place] [address]Ctgdnadbsn (Bld) [Mass/Vol]14.9 g/kIZvlhte48.5 - 17.5[facility] NorthComment on above:Performed By: #### CBCDF #### [address] [place], [place] [address]Sosxanaaoby (Bld) [#/Vol]1.26 10*3/uLNormal1.20 - 4.80[facility] NorthComment on above:Performed By: #### CBCDF #### [address] [place], [place] [address]Mbmdvztfkst/100 WBC (Bld)30.2 %Hnbwov77.0 - 44.0[facility] NorthComment on above:Performed By: #### CBCDF #### [address] [place], [place] [address]NQYL (RBC) [Mass/Vol]30.9 g/dLLow32.0 - 36.0[facility] NorthComment on above:Performed By: #### CBCDF #### [address] [place], [place] [address]XRA (RBC) [Entitic vol]84 cMIcpqqq30 - 100St[facility] NorthComment on above:Performed By: #### CBCDF #### [address] [place], [place] [address]Lvrwiifyl (Bld) [#/Vol]0.36 10*3/uLNormal0.10 - 1.00[facility] NorthComment on above:Performed By: #### CBCDF #### [address] [place], [place] [address]Rdxzqyrtm/100 WBC (Bld)8.6 %Normal2.0 - 10.0[facility] NorthComment on above:Performed By: #### CBCDF #### [address] [place], [place] [address]Kcqsihoxjuy (Bld) [#/Vol]2.45 10*3/uLNormal1.20 - 7.70[facility] NorthComment on above:Performed By: #### CBCDF #### [address] [place], [place] [address]Dcqzvegknyf/100 WBC (Bld)58.8 %Liuqxu19.0 - 80.0[facility] NorthComment on above:Performed By: #### CBCDF #### [address] [place], [place] [address]MDOJRAKTO RBC0.0 /100 WBCNormal0.0 - 0.0[facility] NorthComment on above:Performed By: #### CBCDF #### [address] [place], [place] [address]Biivucald (Bld) [#/Vol]138 10*3/fVXfs611 - 450St[facility] NorthComment on above:Performed By: #### CBCDF #### [address] [address]YBR7.71 x10E12/LNormal4.50 - 5.90[facility] Comment on above:Performed By: #### CBCDF #### [address] [place], [place] [address]UEA (Bld) [#/Vol]4.2 10*3/uLLow4.4 - 11.3[facility] NorthComment on above:Performed By: #### CBCDF #### [address] [place], [place] [address]QTXUBQWIJTXOW PANELon 37-44-9370Yokzsjb [Mass/Vol]4.3 g/dL Normal3.4 - 5.0[facility] NorthComment on above:Performed By: #### CMP #### [address] [place], [place] [address]UYB [Catalytic activity/Vol]89 U/QDhlluh89 - 136St[facility] NorthComment on above:Performed By: #### CMP #### [address] [place], [place] [address]WUM [Catalytic activity/Vol]43 U/VZjmrse30 - 52St[facility] NorthComment on above:Result Comment: Patients treated with Sulfasalazine may generate falsely decreased results for ALT.Performed By: #### CMP #### [address] [place], [place] [address]Ixryf gap [Moles/Vol]11 mmol/BWidmlx64 - 20[facility] NorthComment on above:Performed By: #### CMP #### [address] [place], [place] [address]EZF [Catalytic activity/Vol]31 U/LNormal9 - 39[facility] NorthComment on above:Performed By: #### CMP #### [address] [place], [place] [address]Gvafzgcme [Mass/Vol]0.7 mg/dLNormal0.0 - 1.2[facility] NorthComment on above:Performed By: #### CMP #### [address] [place], [place] [address]Vhqcbrr [Mass/Vol]9.5 mg/dLNormal8.6 - 10.3[facility] NorthComment on above:Performed By: #### CMP #### [address] [place], [place] [address]Glixnlzq [Moles/Vol]105 mmol/ZSeacvt94 - 107St[facility] NorthComment on above:Performed By: #### CMP #### [address] [place], [place] [address]Kkupuniwjq [Mass/Vol]1.76 mg/dLHigh0.50 - 1.30[facility] NorthComment on above:Performed By: #### CMP #### [address] [place], [place] [address]YSR/1.73 sq M.predicted among non-blacks MDRD (S/P/Bld) [Vol rate/Area]43 mL/min/{1.73_m2}Abnormal>90St. [facility] NorthComment on above: Result Comment: CALCULATIONS OF ESTIMATED GFR ARE PERFORMED USING THE 2020 CKD-EPI STUDY REFIT EQUATION WITHOUT THE RACE VARIABLE FOR THE IDMS-TRACEABLE CREATININE METHODS. https://jasn.asnjournals.org/content/early//ASN.7573809626Elwcxquiw By: #### CMP #### [address] [place], [place] [address]Kuqcvtv [Mass/Vol]117 mg/lHHekw14 - 99[facility] Comment on above:Performed By: #### CMP #### [address] [place], [place] [address]OAV5 (Bld) [Moles/Vol]27 mmol/UEnmlpq24 - 32St[facility] NorthComment on above:Performed By: #### CMP #### [address] [place], [place] [address]Qamkgdttg [Moles/Vol]4.3 mmol/LNormal3.5 - 5.3[facility] NorthComment on above:Performed By: #### CMP #### [address] [place], [place] [address]Qylzlwv [Mass/Vol]7.0 g/dLNormal6.4 - 8.2[facility] NorthComment on above:Performed By: #### CMP #### [address] [place], [place] [address]Dhukpi [Moles/Vol]139 mmol/STcwyjo617 - 145St[facility] NorthComment on above:Performed By: #### CMP #### [address] [place], [place] [address]Xewm nitrogen [Mass/Vol]23 mg/dLNormal6 - 23[facility] NorthComment on above:Performed By: #### CMP #### [address] [place], [place] [address]OM CHEST ABDOMEN PELVIS W IV CONTRASTon [id number] CHEST ABDOMEN PELVIS W IV CONTRASTMRN: [id number] Patient Name: KATERINA DANIELLE STUDY: CT CHEST ABDOMEN PELVIS W IV CONTRAST; 11/14/2021 10:51 am INDICATION: HX DLBCL new sinus symptoms, same location as prior occurence 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 COMPARISON: CT chest 06/13/2020; CT abdomen pelvis dated 01/02/2019 ACCESSION NUMBER(S): [id number] ORDERING CLINICIAN: ANIRUDH SEARS TECHNIQUE: CT of [...] the spleen. Electronically signed by: Amanda STEEN. [facility] NorthCT SINUS W CONTRASTon [id number] SINUS W CONTRASTMRN: [id number] Patient Name: KATERINA DANIELLE STUDY: CT NECK WITH CONTRAST; CT SINUS W CONTRAST; 11/14/2021 10:51 am INDICATION: HX DLBCL new sinus symptoms, same location as prior occurence 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 COMPARISON: June 2018. ACCESSION NUMBER(S): [id number]; [id number] ORDERING CLINICIAN: ANIRUDH SEARS TECHNIQUE: Following intravenous [...] the neck. THIS EXAMINATION WAS INTERPRETED AT [facility] Electronically signed by: Amanda WEST. [facility] NorthNR CT NECK WITH CONTRASTon [id number] CT NECK WITH CONTRASTMRN: [id number] Patient Name: KATERINA DANIELLE STUDY: CT NECK WITH CONTRAST; CT SINUS W CONTRAST; 11/14/2021 10:51 am INDICATION: HX DLBCL new sinus symptoms, same location as prior occurence 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 COMPARISON: June 2018. ACCESSION NUMBER(S): [id number]; [id number] ORDERING CLINICIAN: ANIRUDH SEARS TECHNIQUE: Following intravenous [...] the neck. THIS EXAMINATION WAS INTERPRETED AT [facility] Electronically signed by: Amanda WEST. [facility] NorthTobacco Screening.on [id number] risk assessmenta) No falls within the last yearMP-[facility] 3 DO Work Phone: Tobacco use status CPHSb) NoMP-[facility] 3 DO Work Phone: Complete Blood Count + Differentialon 05-21-2021 Basophils/100 WBC (Bld)0.5 %0.0 - 2.1QI-Jkhpzrswyw-Qswwkezi 2100 DO Work Phone: [phone] distribution width (RBC) [Ratio]15.6 % above high thresholdSee PmyefLS-Nhxkwzvmxv-Zonoxnxz 2100 DO Work Phone: Comment on above:Reference Range: 11.5 - 14.5 Hematocrit (Bld) [Volume fraction]46.6 %See JmakqWF-Ynsdpffjch-Zmoiqssb 2100 DO Work Phone: [phone] on above:Reference Range: 41.0 - 52.0 Hemoglobin (Bld) [Mass/Vol]14.8 g/dLSee JiedhEM-Tungzfzclw-Pgmhesfm 2100 DO Work Phone: [phone] on above:Reference Range: 13.5 - 17.5 Lymphocytes/100 WBC (Bld)27.6 %See NtcbjFP-Rqwmjxtxkp-Cxfizssl 2100 DO Work Phone: Comment on above:Reference Range: 13.0 - 44.0MCHC (RBC) [Mass/Vol]31.8 g/dLbelow low thresholdSee HnjthNF-Qbhlyohvou-Dpznlnhy 2100 DO Work Phone: Comment on above:Reference Range: 32.0 - 36.0MCV (RBC) [Entitic vol]87 fL80 - 714XY-Hjowkjtelw-Kcawpgns 2100 DO Work Phone: [phone]/100 WBC (Bld)6.7 %2.0 - 10.0 UB-Mpwcxauwzt-Xtjymroq 2100 DO Work Phone: [phone]/100 WBC (Bld)62.6 %See Below ZL-Wyorqjwska-Uqzrolzr 2100 DO Work Phone: Comment on above:Reference Range: 40.0 - 80.0Platelets (Bld) [#/Vol]138 10*3/uLbelow low jmcubbudk671 - 807ZW-Shysilwozr-Wrkssrmf 2099 DO Work Phone: RBC (Bld) [#/Vol]5.37 {x10E12/L}See Below GZ-Yjnfinpwec-Rylgutwx 2099 DO Work Phone: Comment on above:Reference Range: 4.50 - 5.90WBC (Bld) [#/Vol]4.2 10*3/uLbelow low threshold4.4 - 11.1VE-Ceqsxlixrw-Hfksxalm 2099 DO Work Phone: Complete Blood Count + Differential0.02 {x10E9/L}See ZvtaxTR-Gtbuiapauh-Wqpcyhsp 2099 DO Work Phone: Comment on above:Reference Range: 0.00 - 0.10Complete Blood Count + Differential0.08 {x10E9/L}See UkvdcKT-Izcdujouhy-Vehlgcne 2099 DO Work Phone: Comment on above:Reference Range: 0.00 - 0.70Complete Blood Count + Differential0.28 {x10E9/L}See OrztdAF-Eelcfgkwud-Mkawmgaa 2100 DO Work Phone: Comment on above:Reference Range: 0.10 - 1.00Complete Blood Count + Differential1.15 {x10E9/L}below low thresholdSee Below VP-Vibwaondao-Lbrduant 2099 DO Work Phone: Comment on above:Reference Range: 1.20 - 4.80Complete Blood Count + Differential2.60 {x10E9/L}See NufbiHS-Nkplfffvsx-Tdzqkwdu 2100 DO Work Phone: Comment on above:Reference Range: 1.20 - 7.70Complete Blood Count + Differential1.9 %0.0 - 6.9FO-Ifebrrfvsp-Rsytomdn 2099 DO Work Phone: Complete Blood Count + Differential0.7 %0.0 - 0.9 AZ-Amorpngvmz-Riucxgwd 2099 DO Work Phone: Comment on above:Immature Granulocyte Count (IG) includes promyelocytes, myelocytes and metamyelocytes but does not include bands. Percent differential counts (%) should be interpreted in the context of the absolute cell counts (cells/L).Immunoglobulin G Level, Serumon [id number] [Mass/Vol]1100 mg/dL700 - 4995BA-Harmmgmidr-Yenlyhae 2099 DO Work Phone: Comment on above:MONOCLONAL PROTEINS MAY CAUSE FALSELY LOWRESULTS IN THIS ASSAY. SERUM PROTEINELECTROPHORESIS SHOULDBE DONE THEFIRST TEST TO EVALUATE MONOCLONAL GAMMOPATHY.Laboratory - Chemistry and Chemistry - challengeon [id number] BCP dye [Mass/Vol]4.2 g/dL3.4 - 5.0 NU-Yrdrbwarlo-Xdvcnyfp 2099 DO Work Phone: ALP [Catalytic activity/Vol]86 U/L33 - 136 EN-Pjfqcrdvju-Mqjxmvcn 2099 DO Work Phone: ALT With P-5'-P [Catalytic activity/Vol]32 U/L10 - 52 ZM-Folrbdikja-Slhnsktt 2099 DO Work Phone: Comment on above:Patients treated with Sulfasalazine may generate falsely decreased results for ALT.Anion gap [Moles/Vol]11 mmol/L10 - 52PJ-Dnschdzysi-Kmgyupzq 2099 DO Work Phone: AST With P-5'-P [Catalytic activity/Vol]28 U/L9 - 39 JE-Ponnubejva-Xxnydzbm 2100 DO Work Phone: Bilirubin [Mass/Vol]0.6 mg/dL0.0 - 1.2 XR-Pctizgjyru-Zihtxnyc 2100 DO Work Phone: Calcium [Mass/Vol]9.2 mg/dL8.6 - 10.3 NA-Zdnzhbdmzr-Mpambrcq 2100 DO Work Phone: Chloride [Moles/Vol]107 mmol/L98 - 107 DR-Pugzxogeol-Cvhqjrjk 2100 DO Work Phone: MP0 [Moles/Vol]27 mmol/L21 - 36UB-Kbpvdxbvun-Xehxlizs 2100 DO Work Phone: Creatinine [Mass/Vol]1.77 mg/dLabove high thresholdSee BlzpdHC-Fqvknxspqy-Oydtuovg 2100 DO Work Phone: Comment on above:Reference Range: 0.50 - 1.30Glucose [Mass/Vol]99 mg/dL74 - 18TY-Atzhbekgbs-Txlvpnfe 2099 DO Work Phone: Potassium [Moles/Vol]4.5 mmol/L3.5 - 5.3 UV-Ezwcwonbeh-Wpthvwhq 2100 DO Work Phone: Protein [Mass/Vol]7.0 g/dL6.4 - 8.2 BA-Jvonarsxil-Xuuqojvz 2100 DO Work Phone: Sodium [Moles/Vol]140 mmol/L136 - 145 YJ-Bienmevtpw-Oqpemlnm 2100 DO Work Phone: Urea nitrogen [Mass/Vol]22 mg/dL6 - 23 DR-Znqkqsizet-Ieyccykv 2100 DO Work Phone: No Panel Informationon [id number] {mL/min/1.73m2} Abnormal>22BX-Dkmuptnctn-Wapmkfew 2100 DO Work Phone: Comment on above:CALCULATIONS OF ESTIMATED GFR ARE PERFORMED USING THE MDRD STUDY EQUATION FOR THE IDMS-TRACEABLE CREATININE METHODS. CLIN CHEM 2007;53:766-7239 {mL/min/1.73m2}Abnormal>60 FN-Wrgqokfxoc-Owxctwlg 2100 DO Work Phone: CBC AND DIFFERENTIALon 01-21-2020% AUTOMATED IMMATURE GRAN1.9 %High0.0 - 0.9[facility] Lake MaryComment on above:Result Comment: Immature Granulocyte Count (IG) includes promyelocytes, myelocytes and metamyelocytes but does not include bands. Percent differential counts (%) should be interpreted in the context of the absolute cell counts (cells/L).Performed By: #### CBCDF #### [address] [address]Ojpzthymr (Bld) [#/Vol]0.02 10*3/uLNormal0.00 - 0.10[facility] - Lake MaryComment on above:Performed By: #### CBCDF #### [address] [address]Ligdopxsj/100 WBC (Bld)0.5 %Normal0.0 - 2.0[facility] Lake MaryComment on above:Performed By: #### CBCDF #### [address] [address]Uywdbojehhr (Bld) [#/Vol]0.25 10*3/uLNormal0.00 - 0.70[facility] - Lake MaryComment on above:Performed By: #### CBCDF #### [address] [address]Uhjlszqfjxe/100 WBC (Bld)6.0 %Normal0.0 - 6.0[facility] SpringsComment on above:Performed By: #### CBCDF #### [address] [address]Rsifubxwtck distribution width (RBC) [Ratio]14.2 %Ayiser34.5 - 14.5Den[facility] SpringsComment on above:Performed By: #### CBCDF #### [address] [address]Rywdpvbcit (Bld) [Volume fraction]46.7 %Dcqycd98.0 - 52.0[facility] SpringsComment on above:Performed By: #### CBCDF #### [address] [address]Kwagbxdfht (Bld) [Mass/Vol]14.8 g/iUOiylfd19.5 - 17.5[facility] - Lake MaryComment on above:Performed By: #### CBCDF #### [address] [address]Idwyqcunnnx (Bld) [#/Vol]1.10 10*3/uLLow1.20 - 4.80[facility] SpringsComment on above:Performed By: #### CBCDF #### [address] [address]Iysswywhqrm/100 WBC (Bld)26.6 %Ywecaw57.0 - 44.0[facility] SpringsComment on above:Performed By: #### CBCDF #### [address] [address]KGNI (RBC) [Mass/Vol]31.7 g/dLLow32.0 - 36.0[facility] SpringsComment on above:Performed By: #### CBCDF #### [address] [address]QNQ (RBC) [Entitic vol]85 vJZotufy02 - 100Den[facility] SpringsComment on above:Performed By: #### CBCDF #### [address] [address]Pituoxlsz (Bld) [#/Vol]0.48 10*3/uLNormal0.10 - 1.00[facility] SpringsComment on above:Performed By: #### CBCDF #### [address] [address]Iwhtlfrof/100 WBC (Bld)11.6 %Normal2.0 - 10.0[facility] SpringsComment on above:Performed By: #### CBCDF #### [address] [address]Jvemvensvvu (Bld) [#/Vol]2.21 10*3/uLNormal1.20 - 7.70[facility] SpringsComment on above:Performed By: #### CBCDF #### [address] [address]Dxvxovjgskf/100 WBC (Bld)53.4 %Gksice85.0 - 80.0[facility] SpringsComment on above:Performed By: #### CBCDF #### [address] [address]Girgfzbut (Bld) [#/Vol]122 10*3/bIZzr817 - 450[facility] - Lake MaryComment on above:Performed By: #### CBCDF #### [address] [address]JEY (Bld) [#/Vol]5.47 x10E12/LNormal4.50 - 5.90[facility] - Lake MaryComment on above:Performed By: #### CBCDF #### [address] [address]SRS (Bld) [#/Vol]4.1 10*3/uLLow4.4 - 11.3[facility] - Lake MaryComment on above:Performed By: #### CBCDF #### [address] [address]ONISNYRPGBKMW PANELon 69-84-8149Ubivjvw [Mass/Vol]4.7 g/dLNormal 3.4 - 5.0[facility] MaryComment on above:Performed By: #### PHOS #### [address] [address]ZRF [Catalytic activity/Vol]186 U/LHigh33 - 120[facility] - Lake MaryComment on above:Performed By: #### PHOS #### [address] [address]ZZN [Catalytic activity/Vol]46 U/BZujngi94 - 52[facility] - Lake MaryComment on above:Result Comment: Patients treated with Sulfasalazine may generate falsely decreased results for ALT.Performed By: #### PHOS #### [address] [address]Grudg gap [Moles/Vol]11 mmol/UCdojes36 - 20[facility] - Lake MaryComment on above:Performed By: #### PHOS #### [address] [address]IDJ [Catalytic activity/Vol]30 U/LNormal9 - 39Den[place] SpringsComment on above:Performed By: #### PHOS #### [address] [address]Ucogldiqa [Mass/Vol]0.6 mg/dLNormal0.0 - 1.2[place] SpringsComment on above:Performed By: #### PHOS #### [address] [address]Lxwftsc [Mass/Vol]9.2 mg/dLNormal8.6 - 10.3[place] SpringsComment on above:Performed By: #### PHOS #### [address] [address]Rjjdkvam [Moles/Vol]106 mmol/ZGcwcxj74 - 107Den[place] SpringsComment on above:Performed By: #### PHOS #### [address] [address]Bkedifgbxb [Mass/Vol]1.90 mg/dLHigh0.50 - 1.30[place] SpringsComment on above:Performed By: #### PHOS #### [address] [address]BNU-UXBYDUA AM.44 mL/min/1.66i7Hmwffvmh>60[place] SpringsComment on above:Result Comment: CALCULATIONS OF ESTIMATED GFR ARE PERFORMED USING THE MDRD STUDY EQUATION FOR THE IDMS-TRACEABLE CREATININE METHODS. CLIN CHEM 2007;53:766-72Performed By: #### PHOS #### [address] [address]API-GYA AM.36 mL/min/1.70b5Xokiqqps>60[place] SpringsComment on above:Performed By: #### PHOS #### [address] [address]Vnccgbj [Mass/Vol]62 mg/dLLow74 - 99[facility] Comment on above:Performed By: #### PHOS #### [address] [address]EDM7 (Bld) [Moles/Vol]29 mmol/YTzshoi69 - 32Den[place] SpringsComment on above:Performed By: #### PHOS #### [address] [address]Zuxeqawwz [Moles/Vol]4.1 mmol/LNormal3.5 - 5.3[place] SpringsComment on above:Performed By: #### PHOS #### [address] [address]Coacntc [Mass/Vol]6.5 g/dLNormal6.4 - 8.2[place] SpringsComment on above:Performed By: #### PHOS #### [address] [address]Izjzoa [Moles/Vol]142 mmol/DJsafya873 - 145Den[place] SpringsComment on above:Performed By: #### PHOS #### [address] [address]Vmfo nitrogen [Mass/Vol]23 mg/dLNormal6 - 23Den[place] SpringsComment on above:Performed By: #### PHOS #### [address] [address]JNGuq 00-14-1506QXW562 U/MZhfcyd82 - 246[place] Comment on above:Performed By: #### PHOS #### [address] [address]PAYYFMFVCXU HORMONE,INTACTon 21-46-2591RDJBPKUEREJ HORMONE,IXTWZE588.7 pg/tSDmae30.5 - 88.0[facility] Lake MaryComment on above:Result Comment: Patients receiving more than 5 mg/day of biotin may have interference in test results. A sample should be taken no sooner than eight hours after previous dose. Contact the testing laboratory for additional information.Performed By: #### PHOS #### [address] [address]HCLSRHMAZAdl 52-52-4771Qjodqbyel [Mass/Vol]2.8 mg/dLNormal2.5 - 4.9[place] SpringsComment on above:Result Comment: The performance characteristics of phosphorus testing in heparinized plasma have been validated by the individual laboratory site where testing is performed. Testing on heparinized plasma is not approved by the FDA; however, such approval is not necessary.Performed By: #### PHOS #### [address] [address]SDRQ ACIDon 46-13-1885Oawqz [Mass/Vol]5.9 mg/dLNormal4.0 - 7.5[place] SpringsComment on above:Result Comment: Venipuncture immediately after or during the administration of Metamizole may lead to falsely low results. Testing should be performed immediately prior to Metamizole dosing.Performed By: #### PHOS #### [address] [address]TIQZE METABOLIC PANELon 20-10-0857Euhsc gap [Moles/Vol]11 mmol/L Gbnwlr91 - 20[place] SpringsComment on above:Performed By: #### BMP #### [address] [address]Skaumpe [Mass/Vol]9.0 mg/dLNormal8.6 - 10.3[place] SpringsComment on above:Performed By: #### BMP #### [address] [address]Slavlgdm [Moles/Vol]109 mmol/LHigh98 - 107Den[place] SpringsComment on above:Performed By: #### BMP #### [address] [address]Vgiyinhaxt [Mass/Vol]1.92 mg/dLHigh0.50 - 1.30[place] SpringsComment on above:Performed By: #### BMP #### [address] [address]FXD-ETFXNZR AM.44 mL/min/1.04d6Kwcimwzz>60[facility] MaryComment on above:Result Comment: CALCULATIONS OF ESTIMATED GFR ARE PERFORMED USING THE MDRD STUDY EQUATION FOR THE IDMS-TRACEABLE CREATININE METHODS. CLIN CHEM 2007;53:766-72Performed By: #### BMP #### [address] [address]RGR-IAU AM.36 mL/min/1.42w2Qeuiyrtx>60[facility]Comment on above:Performed By: #### BMP #### [address] [address]Lesefzu [Mass/Vol]64 mg/dLLow74 - 99[facility] [place] Comment on above:Performed By: #### BMP #### [address] [address]NAR0 (Bld) [Moles/Vol]27 mmol/IZwriwb77 - 32[facility] [place] MaryComment on above:Performed By: #### BMP #### [address] [address]Ggswxzriq [Moles/Vol]4.1 mmol/LNormal3.5 - 5.3[facility] [place] MaryComment on above:Performed By: #### BMP #### [address] [address]Fonnii [Moles/Vol]143 mmol/GZilgds806 - 145[facility] [place] MaryComment on above:Performed By: #### BMP #### [address] [address]Cgag nitrogen [Mass/Vol]27 mg/dLHigh6 - 23[facility] MaryComment on above:Performed By: #### BMP #### [address] [address]Tvkiapicd Panelon [id number] gap [Moles/Vol]11 mmol/L10 - 00HW-Jfiaihzira-CebgzlcChi [facility] Work Phone: calcium [Mass/Vol]9.0 mg/dL8.6 - 10.[address]zczxlh[address]NxtjnbjChi [facility] Work Phone: Chloride [Moles/Vol]109 mmol/Labove high wytthhzpb86 - 411AS-Wqjzrsxnaw-ItgxkebChi [facility] Work Phone: SF0 [Moles/Vol]27 mmol/L21 - 10XP-Hqmcjyotbm-NqgbykwChi [facility] Work Phone: [phone] [Mass/Vol]1.92 mg/dLabove high thresholdSee QzumnKN-Bzexrzrale-WbhqwmkChi [facility] Work Phone: Comment on above:Reference Range: 0.50 - 1.30Glucose [Mass/Vol]64 mg/dLbelow low qpekpwiok46 - 82HE-Wtjzvjyrkj-PdfsuzzChi [facility] Work Phone: [phone] [Moles/Vol]4.1 mmol/L3.5 - 5.3 BM-Zhpownqiyb-JsgqhwiChi St. [facility]ius [facility] Work Phone: [phone] [Moles/Vol]143 mmol/L136 - 145 Q[address]drcgrxChi [facility] Work Phone: [phone] nitrogen [Mass/Vol]27 mg/dLabove high threshold6 - 50PT-Efrijkahmx-KmdscapChi St. [facility] Work Phone: [phone] 89-45-7419Vrcltkjwosq by: QKEPWY54/27/19 14:38MRN: [id number] Name: KATERINA DANIELLE STUDY: RENAL BILAT;07/27/2019 2:41 [...] or obstructing stonesElectronically signed by: CHELSEA 07/28/19 14:42BclsmtMB-Dkzwfcnekq-TbtvjnhChi St. [facility] Work Phone: [phone] {mL/min/1.73m2}Abnormal>75JX-Ytqqfixmur-DhtdpcmChi St. [facility] Work Phone: comment on above:CALCULATIONS OF ESTIMATED GFR ARE PERFORMED USING THE MDRD STUDY EQUATION FOR THE IDMS-TRACEABLE CREATININE METHODS. CLIN CHEM 2007;53:766-7236 {mL/min/1.73m2}Abnormal>60 [address]-Dclbrqlrfe-GixtbkaChi [facility]. [facility] Work Phone: please click on the link to view the study images LvyxvbKX-Ddwaqshspc-QrjzzjtFirst Care [facility] Center Work Phone: pARATHYROID HORMONE,INTACTon 88-04-4417EDZVZTYMEBL HORMONE,WJLSMO233.6 pg/vYSavy96.5 - 88.0[place] SpringsComment on above:Result Comment: Patients receiving more than 5 mg/day of biotin may have interference in test results. A sample should be taken no sooner than eight hours after previous dose. Contact the testing laboratory for additional information.Performed By: #### PTH #### [address] [address]AEQDBQIJMTgc 93-35-1672Tntihhibl [Mass/Vol]2.7 mg/dLNormal2.5 - 4.9[place] SpringsComment on above:Result Comment: The performance characteristics of phosphorus testing in heparinized plasma have been validated by the individual laboratory site where testing is performed. Testing on heparinized plasma is not approved by the FDA; however, such approval is not necessary.Performed By: #### PHOS #### [address] [address]Yspctiqoehdv Intact, Serumon 30-32-1690Tizpptkcvd.intact [Mass/Vol]117.6 pg/mLabove high thresholdSee SxebnAT-Cnyxrsampw-OfpirumFirst Care Health Center Work Phone: comment on above:Reference Range: 18.5 - 88.0 Patients receiving more than 5 mg/day of biotin may have interference in test results. A sample should be taken no sooner than eight hours after previous dose. Contact the testing laboratory for additional information.Phosphorus, Serumon 07-27-2019 Phosphate [Mass/Vol]2.7 mg/dL2.5 - 4.2YY-Kejddrcjph-ReywwbiChi [facility]. [facility] Work Phone: comment on above:The performance characteristics of phosphorus testing in heparinized plasma have been validated by the individual laboratory site where testing is performed. Testing on heparinized plasma is not approved by the FDA; however, such approval is not necessary.TOTAL PROTEIN, URINE SPOTon 78-08-1666PCQVTTXGBX,RUOZX555.0 mg/hCNsdquh41.0 - 370.0[facility] MaryComment on above:Performed By: #### TPS2 #### [address] [address]V. PROTEIN/CREAT RATIO0.37 mg/mg CreatHigh0.00 - 0.17[facility] Lake MaryComment on above:Performed By: #### TPS2 #### [address] [address]SHAKA PROT,URINE SPOT61 mg/dLHigh5 - 25[place] Comment on above:Performed By: #### TPS2 #### [address] [address]Fbdys Protein, Urine Spoton 65-54-6284Vlsozqmmuc (U) [Mass/Vol] 167.0 mg/dLSee SnznvIO-Tcmkajsaay-BmaifgkChi St. [facility] Work Phone: comment on above:Reference Range: 20.0 - 370.0 Protein/Creatinine (U) [Ratio]0.37 {mg/mg_Creat}above high thresholdSee Below SV-Dhuuhjxwuu-TsxsjriChi St. [facility] Work Phone: comment on above:Reference Range: 0.00 - 0.17Total Protein, Urine Spot61 mg/dLabove high threshold5 - 65KJ-Xqgruptazr-BqqjnntFirst Care Health Center Work Phone: UA MICROSCOPICon 35-68-2741GNLJX1+ /LPFNormalUH [facility] - Lake MaryComment on above:Performed By: #### UAMIC #### [address] [address]VTM3 /HPFNormal0-5Den[place] SpringsComment on above: Performed By: #### UAMIC #### [address] [address]AWH0 /HPFNormal0-5Den[place] SpringsComment on above: Performed By: #### UAMIC #### [address] [address]AIBN ACIDon 92-08-3787Dotfe [Mass/Vol]5.8 mg/dLNormal4.0 - 7.5Den[place] SpringsComment on above:Result Comment: Venipuncture immediately after or during the administration of Metamizole may lead to falsely low results. Testing should be performed immediately prior to Metamizole dosing.Performed By: #### URIC #### [address] [address]UQWTATCHTAbz 01-65-1573Ecttnvdlay (U)CLEARNormalCLEARDenver SpringsComment on above:Performed By: #### UA #### [address] [address]Twnlxxulm (U) [Mass/Vol]NegativeNormalNEGATIVEDenver SpringsComment on above:Performed By: #### UA #### [address] [address]SKXKIJLOJL(1+)AbnormalNEGATIVEDenver SpringsComment on above:Performed By: #### UA #### [address] [address]Madss (U)YELLOWNormalSTRAW,YELLOWDenver SpringsComment on above:Performed By: #### UA #### [address] [address]Gzixddh [Mass/Vol]NegativeNormalNEGATIVEDenver Springs Comment on above:Performed By: #### UA #### [address] [address]Mdymkcx Ql (U)NegativeNormalNEGATIVEDenver Springs Comment on above:Performed By: #### UA #### [address] [address]Jqfbetunb esterase Test strip Ql (U)NegativeNormalNEGATIVEDenver SpringsComment on above:Performed By: #### UA #### [address] [address]Vrwdpuo Ql (U)NegativeNormalNEGATIVEDenver Springs Comment on above:Performed By: #### UA #### [address] [address]rP (Bld)6.4Emtkoq8.0 - 8.0[place] SpringsComment on above:Performed By: #### UA #### [address] [address]Ogyxolw (U) [Mass/Vol]30 (1+)AbnormalNEGATIVEDenver SpringsComment on above:Performed By: #### UA #### [address] [address]Currikzt gravity (U) [Rel density]1.127Lscljn4.005 - 1.035Den[place] SpringsComment on above:Performed By: #### UA #### [address] [address]Iprgkbyhnxxz Qn (U)<2.7Qsbrgi8.0 - 1.9[place] Comment on above:Performed By: #### UA #### [address] [address]MT RENAL BILATon 68-28-8546MH RENAL BILATMRN: [id number] Patient Name: KATERINA DANIELLE STUDY: US RENAL BILAT; 07/27/2019 2:41 pm INDICATION: CKD, Essential (primary) hypertension, Diffuse large B-cell lymphoma. COMPARISON: None. ACCESSION NUMBER(S): [id number] ORDERING CLINICIAN: CHRISTOPHER WATKINS TECHNIQUE: Multiple images [...] or obstructing stones Electronically signed by: Nader [facility]ISRose Medical CenterUric Acid, Serumon 90-01-7376Rkank [Mass/Vol]5.8 mg/dL4.0 - 7.3LS-Wberccrxfx-HfmmqdqFirst Care Health Center Work Phone: [phone] on above:Venipuncture immediately after or during the administration of Metamizole may lead to falsely low results. Testing should be performed immediately prior to Metamizole dosing.Urinalysison 45-44-0014Aqgchylynh (U)BYTZJOMDBOOD-Ublqbcduhd-XmzyvbkFirst Care Health Center Work Phone: [phone] (U)YELLOWSee DmyavQN-Itaifoctqu-FaixkapMonroe Regional Hospital Work Phone: [phone] on above:Reference Range: STRAW,YELLOWGlucose Ql (U)IzsyeqnrGAPYJMLHKO-Pcucppyyjj-GdfimygMonroe Regional Hospital Work Phone: Ketones Ql (U)DdrkkypqAGECXFYSHH-Lspybwfpjb-JregelcMonroe Regional Hospital Work Phone: [phone] esterase Test strip Ql (U)NegativeNEGATIVE [facility] Work Phone: [phone] (U)6.0 [pH]5.0 - 8.3AH-Zhpucbfiju-DcrommaChi St. [facility] Work Phone: protein (U) [Mass/Vol]30 (1+)AbnormalNEGATIVE [facility] Work Phone: [phone] (U) [#/Vol]SMALL(1+)AbnormalNEGATIVE [facility] Work Phone: Specific gravity (U) [Rel density]1.021See Below [facility] Work Phone: comment on above:Reference Range: 1.005 - 1.035 UwexfmzawqTvheefdlHYHPMCLNCI-Hmaunrlnwe-Nplvbzk [facility] Work Phone: Urinalysis<2.00.0 - 1.0BL-Ypsqesfiif-MilgviuChi St. [facility] Work Phone: Urinalysis, Microscopicon 27-33-4557Qbduzlzuze, Microscopic1 {/HPF}2-4AF-HnryegohzkMonroe Regional Hospital Work Phone: Urinalysis, Microscopic1+[facility] Work Phone: VITAMIN D, 25-HYDROXYon 20-12-8622AZGOYVE D, 25-ASKHGYX83 ng/mLNormalDenver SpringsComment on above:Result Comment: . DEFICIENCY: < 20 NG/ML INSUFFICIENCY: 20-29 NG/ML OPTIMUM LEVEL: 30-80 NG/ML POSSIBLE TOXICITY: > 80 NG/ML THIS ASSAY ACCURATELY QUANTIFIES THE SUM OF VITAMIN D3, 25-HYDROXY AND VIT D2,25-HYDROXY.Performed By: #### VTDOH #### [address] [address]Pkudhmp D 25-Hydroxyon 69-98-3149Jltvtrihp [Mass/Vol]66 ng/mL [facility] Work Phone: comment on above:.DEFICIENCY: < 20 NG/MLINSUFFICIENCY: 20-29 NG/MLOPTIMUM LEVEL: 30-80 NG/MLPOSSIBLE TOXICITY: > 80 NG/MLTHIS ASSAY ACCURATELY QUANTIFIES THE SUM OFVITAMIN D3, 25-HYDROXY AND VIT D2,25-HYDROXY. Complete Blood Count + Differentialon 00-79-6679Pfuwnhigo (Bld) [#/Vol]0.01 {x10E9/L}See IztcoCA-Lgzvublfq-Caeolaz Work Phone: Comment on above:Reference Range: 0.00 - 0.10 Basophils/100 WBC (Bld)0.3 %0.0 - 2.4AJ-Psjfakkae-Ulvwerc Work Phone: [phone] (Bld) [#/Vol]0.09 {x10E9/L}See Below YQ-Aqnrkdwbn-Lhiargr Work Phone: [phone] on above:Reference Range: 0.00 - 0.70 Eosinophils/100 WBC (Bld)2.8 %0.0 - 6.8UB-Ejrwqbzmj-Aoxcvsh Work Phone: [phone] distribution width (RBC) [Ratio]15.4 % above high thresholdSee KbebqLN-Qjlewpsrc-Mtdorzv Work Phone: [phone] on above:Reference Range: 11.5 - 14.5 Hematocrit (Bld) [Volume fraction]43.5 %See PutsnVK-Nsvzpvlma-Wswmygv Work Phone: [phone] on above:Reference Range: 41.0 - 52.0 Hemoglobin (Bld) [Mass/Vol]13.6 g/dLSee AtzucPK-Rjqalochr-Yekwbuo Work Phone: [phone] on above:Reference Range: 13.5 - 17.5 Lymphocytes (Bld) [#/Vol]0.93 {x10E9/L}below low thresholdSee Below KJ-Gdvtrgkjg-Otncksl Work Phone: [phone] on above:Reference Range: 1.20 - 4.80 Lymphocytes/100 WBC (Bld)29.3 %See EeyspQE-Aqkjtvdpc-Bzwfzhr Work Phone: [phone] on above:Reference Range: 13.0 - 44.0MCHC (RBC) [Mass/Vol]31.3 g/dLbelow low thresholdSee RidemWP-Qokcpwgfq-Ppxroiq Work Phone: [phone] on above:Reference Range: 32.0 - 36.0MCV (RBC) [Entitic vol]87 fL80 - 196PA-Cqfwqkwse-Otbmhbs Work Phone: [phone] (Bld) [#/Vol]0.28 {x10E9/L}See Below UD-Ktuciixjw-Quwwmbp Work Phone: [phone] on above:Reference Range: 0.10 - 1.00 Monocytes/100 WBC (Bld)8.8 %2.0 - 10.5VB-Aacmldgqf-Xjtjowj Work Phone: [phone] (Bld) [#/Vol]1.84 {x10E9/L}See Below KU-Sivdpxndt-Zbhubld Work Phone: [phone] on above:Reference Range: 1.20 - 7.70 Neutrophils/100 WBC (Bld)58.2 %See RasryFG-Temgbbkio-Cvawqdy Work Phone: [phone] on above:Reference Range: 40.0 - 80.0Platelets (Bld) [#/Vol]61 {x10E9/L}below low betnvloyd127 - 148FO-Yydutjoce-Ymhhfdy Work Phone: [phone] (Bld) [#/Vol]5.02 {x10E12/L}See Below TC-Qzpwgppvs-Izsyhbk Work Phone: [phone] on above:Reference Range: 4.50 - 5.90WBC (Bld) [#/Vol]3.2 {x10E9/L}below low threshold4.4 - 11.4BP-Eixcdrzcd-Dtbhvus Work Phone: [phone] Blood Count + Differential0.6 %0.0 - 0.9 MG-Boqfjcxbp-Jeymxwg Work Phone: [phone] on above:Percent differential counts (%) should be interpreted in the context of the absolute cell counts (cells/L).Gamma Glutamyl Transferase, Serumon 32-55-8196Jjfky glutamyl transferase [Catalytic activity/Vol]522 U/Labove high threshold5 - 82QE-Tvfasvdpj-Jvruoax Work Phone: Imm/Pathon 30-13-7587MlT [Mass/Vol]13 mg/dLbelow low iwjfewikf33 - 504KX-Jherwtfen-Ljkzrrd Work Phone: [phone] on above:MONOCLONAL PROTEINS MAY CAUSE FALSELY LOWRESULTS IN THIS ASSAY. SERUM PROTEINELECTROPHORESIS SHOULDBE DONE THEFIRST TEST TO EVALUATE MONOCLONAL GAMMOPATHY.IgG [Mass/Vol]589 mg/dLbelow low csesoiqzv563 - 5396TB-Znatqaytm-Atgryrf Work Phone: [phone] on above:MONOCLONAL PROTEINS MAY CAUSE FALSELY LOWRESULTS IN THIS ASSAY. SERUM PROTEINELECTROPHORESIS SHOULDBE DONE THEFIRST TEST TO EVALUATE MONOCLONAL GAMMOPATHY.IgM [Mass/Vol]mg/lPYciuujjo36 - 523VD-Wzlpmvcxe-Pgqbvlf Work Phone: [phone] on above:MONOCLONAL PROTEINS MAY CAUSE FALSELY LOWRESULTS IN THIS ASSAY. SERUM PROTEINELECTROPHORESIS SHOULDBE DONE THEFIRST TEST TO EVALUATE MONOCLONAL GAMMOPATHY.Metabolic Panelon 20-06-8953BQV [Catalytic activity/Vol]271 U/Labove high ardwqagoh99 - 167BB-Nkcbqnoua-Yakoanx Work Phone: [phone] gap [Moles/Vol]13 mmol/L10 - 20 OG-Ldroiaunv-Rgtpivq Work Phone: [phone] [Mass/Vol]0.5 mg/dL0.0 - 1.2 FG-Dfgsopvis-Lylhghc Work Phone: [phone] [Mass/Vol]9.3 mg/dL8.6 - 10.6 JR-Iruusbhez-Ooppvqr Work Phone: [phone] [Moles/Vol]107 mmol/L98 - 107 ZJ-Isgbjjmmf-Mhvgwre Work Phone: [phone] [Moles/Vol]26 mmol/L21 - 41UJ-Hvqjcotdo-Wvcmrkh Work Phone: [phone] [Mass/Vol]1.82 mg/dLabove high thresholdSee CemaiYH-Orxdmsohp-Txkqwrz Work Phone: [phone] on above:Reference Range: 0.50 - 1.30Glucose [Mass/Vol]90 mg/dL74 - 83PF-Pmttxvock-Ajcjjnv Work Phone: [phone] [Catalytic activity/Vol]202 U/L84 - 246 YX-Jznoijadb-Iqcbhcu Work Phone: [phone] [Moles/Vol]4.7 mmol/L3.5 - 5.3 BK-Vjvxoygos-Fbnlkeu Work Phone: [phone] [Mass/Vol]6.3 g/dLbelow low threshold6.4 - 8.2 SO-Vtxpjqkzl-Xynawzp Work Phone: [phone] [Moles/Vol]141 mmol/L136 - 145 ZZ-Kgtazvnzl-Witgrpc Work Phone: Urea nitrogen [Mass/Vol]32 mg/dLabove high threshold6 - 34FG-Ixbagnwep-Nhqirkn Work Phone: Glucose [Mass/Vol]93 mg/dL74 - 98YY-Pirufopmr-Xyxudtm Work Phone: Otheron 12-17-2686Ugpqksb BCP dye [Mass/Vol]4.4 g/dL 3.4 - 5.4ZA-Jkyiaeizz-Ogevxcm Work Phone: [phone] With P-5'-P [Catalytic activity/Vol]56 U/Labove high kyrzziubo97 - 08PL-Faeluyewx-Popvowy Work Phone: [phone] on above:Patients treated with Sulfasalazine may generate falsely decreased results for ALT.AST With P-5'-P [Catalytic activity/Vol]39 U/L9 - 35AU-Gowlvqpyr-Nguiywi Work Phone: [phone] {mL/min/1.73m2}Abnormal>09CH-Swusrzcsq-Mpoljln Work Phone: [phone] on above:CALCULATIONS OF ESTIMATED GFR ARE PERFORMED USING THE MDRD STUDY EQUATION FOR THE IDMS-TRACEABLE CREATININE METHODS. CLIN CHEM 2007;53:766-7238 {mL/min/1.73m2}Abnormal>60 MH-Mmquubmzv-Zwsqrhx Work Phone: [phone] by: DANIAL VICK07/02/19 12:12MRN: [id number] Name: KATERINA DANIELLE STUDY:PET/CT LYMPHOMA STAGING; 07/02/2019 [...] (SUV) units. CODING:Subsequent Treatment Strategy (PS) CALIBRATION:Dose Jvweyheff-qf-Mkob Interval (mins): 54 minMediastinal bloodpool SUV (normal [...] interpretation as stated. [facility]Electronically signed by: DANIAL VICK 07/02/19 12:12Normal RV-Vjyjoshml-Wmenvxm Work Phone: C Reactive Protein, Serumon 42-71-1448UTE [Mass/Vol] 1.59 mg/mEYzarzcvbIL-Luuwkacbmjvtd-Ptprysvm B102 Work Phone: Comment on above:REF VALUE< 1.00Complete Blood Count + Differentialon 19-02-9486Jjyiobytq (Bld) [#/Vol]0.01 {x10E9/L}See Below HA-Ctkfsakpzufpq-Dfxzzfsq B102 Work Phone: Comment on above:Reference Range: 0.00 - 0.10 Basophils/100 WBC (Bld)0.3 %0.0 - 2.2QA-Ngncsqgfwwkzo-Nrsplazp B102 Work Phone: Eosinophils (Bld) [#/Vol]0.07 {x10E9/L}See Below VI-Sdjovsemhayvq-Cswrvyos B102 Work Phone: Comment on above:Reference Range: 0.00 - 0.70 Eosinophils/100 WBC (Bld)2.2 %0.0 - 6.9KG-Bdvrpleunfefe-Avzznmmi B102 Work Phone: Erythrocyte distribution width (RBC) [Ratio]13.7 %See VmjibVI-Ubccruqbsqdic-Muenttvc B102 Work Phone: Comment on above:Reference Range: 11.5 - 14.5 Hematocrit (Bld) [Volume fraction]38.8 %below low thresholdSee Below YJ-Zbjlrxxhnrdgs-Wflqpyao B102 Work Phone: Comment on above:Reference Range: 41.0 - 52.0 Hemoglobin (Bld) [Mass/Vol]12.4 g/dLbelow low thresholdSee Below HS-Lacdxrppzsqke-Sovubbwn B102 Work Phone: Comment on above:Reference Range: 13.5 - 17.5 Lymphocytes (Bld) [#/Vol]0.89 {x10E9/L}below low thresholdSee Below IQ-Psunflanhpfhz-Qdmlaofj B102 Work Phone: Comment on above:Reference Range: 1.20 - 4.80 Lymphocytes/100 WBC (Bld)27.7 %See JpqzpVP-Zlayhpuqzldpe-Ivlvrvrq B102 Work Phone: Comment on above:Reference Range: 13.0 - 44.0MCHC (RBC) [Mass/Vol]32.0 g/dLSee MyelpDC-Bmyjbymsiyfxc-Iesvveas B102 Work Phone: Com on above:Reference Range: 32.0 - 36.0MCV (RBC) [Entitic vol]93 fL80 - 279ZR-Duhydmnflhnqc-Rawxlehi B102 Work Phone: Monocytes (Bld) [#/Vol]0.37 {x10E9/L}See Below KE-Hjvqfpnxmzogx-Niapprhy B102 Work Phone: Comment on above:Reference Range: 0.10 - 1.00 Monocytes/100 WBC (Bld)11.5 %2.0 - 10.6QS-Teteehqpzxumr-Afodddwj B102 Work Phone: Neutrophils (Bld) [#/Vol]1.86 {x10E9/L}See Below HH-Mooawcxyraing-Vdnmlopa B102 Work Phone: Comment on above:Reference Range: 1.20 - 7.70 Neutrophils/100 WBC (Bld)58.0 %See VynvsTR-Nqclzyxvnwfli-Ljzbtmdw B102 Work Phone: Comment on above:Reference Range: 40.0 - 80.0Platelets (Bld) [#/Vol]60 {x10E9/L}below low - 657IO-Eoywnwhiveneg-Tphuzsav B102 Work Phone: RBC (Bld) [#/Vol]4.18 {x10E12/L}below low thresholdSee YjhheZP-Krwkgeotliucj-Arzynuxn B102 Work Phone: Comment on above:Reference Range: 4.50 - 5.90WBC (Bld) [#/Vol]3.2 {x10E9/L}below low threshold4.4 - 11.2DW-Yzxwwirvaiptj-Vuoqfhde B102 Work Phone: Complete Blood Count + Differential0.3 %0.0 - 0.9 MR-Wfhaenzajxoqu-Hjceefdx B102 Work Phone: Comment on above:Percent differential counts (%) should be interpreted in the context of the absolute cell counts (cells/L). Ferritin, Serumon 89-25-0977Rropguud [Mass/Vol]667 ug/Labove high rhdrtaefv90 - 193RS-Hwmrtaufkplan-Vxwbdoww B102 Work Phone: Fibrinogen Assayon 59-62-5036Qaylmlwxpz Alrvt855 mg/dL above high iikvumklw558 - 666KK-Rxgjxqtvxxtfg-Disiiijk B102 Work Phone: Hematologyon 98-54-4789eJTI Coag (PPP) [Time]25 {sec} below low qsbfyofek26 - 89CW-Yfmilfyytvfid-Snsrrlfa B102 Work Phone: Comment on above:THE APTT IS NO LONGER USED FOR MONITORING UNFRACTIONATED HEPARIN THERAPY. FOR MONITORING HEPARIN THERAPY, USE THE HEPARIN ASSAY.INR Coag (PPP) [Relative time]1.0 {INR}0.9 - 1.1 HR-Ujuinibyzevhf-Dmnjpqbv B102 Work Phone: PT Coag (PPP) [Time]11.0 {sec}9.7 - 12.7 UC-Hgbrtlfhquqwl-Zpbjhvco B102 Work Phone: Immunoglobulin G Level, Serumon 31-71-6033ScC [Mass/Vol]487 mg/dLbelow low htzhdkoiq568 - 9489WJ-Xfkaxysnokuop-Ozgmhedz B102 Work Phone: Comment on above:MONOCLONAL PROTEINS MAY CAUSE FALSELY LOWRESULTS IN THIS ASSAY. SERUM PROTEINELECTROPHORESIS SHOULDBE DONE THEFIRST TEST TO EVALUATE MONOCLONAL GAMMOPATHY.Magnesium, Serumon 04-02-2019 Magnesium [Mass/Vol]2.39 mg/dLSee NnnjpTR-Pmvphdmbkxcii-Mrzvfqap B102 Work Phone: Comment on above:Reference Range: 1.60 - 2.40Metabolic Panelon 18-20-0020BRF [Catalytic activity/Vol]327 U/Labove high xefihezsx63 - 120CA-Qcthpwavshvyz-Gfzftlkw B102 Work Phone: Anion gap [Moles/Vol]14 mmol/L10 - 20 ZG-Msilpyubtvzxr-Aenbuilb B102 Work Phone: Bilirubin [Mass/Vol]0.7 mg/dL0.0 - 1.2 WO-Canjdesiopmyp-Owgwbyie B102 Work Phone: Calcium [Mass/Vol]9.6 mg/dL8.6 - 10.6 IO-Dyxdwnmhugysz-Unpnsfnn B102 Work Phone: Chloride [Moles/Vol]106 mmol/L98 - 107 ZH-Lpvggwbpnpvow-Qbzazpmu B102 Work Phone: CB6 [Moles/Vol]25 mmol/L21 - 32 RC-Puqvvcaibrxjd-Qoplougm B102 Work Phone: Creatinine [Mass/Vol]1.50 mg/dLabove high thresholdSee JwofvTQ-Wgphkoodxzzem-Nuxbjbse B102 Work Phone: Comment on above:Reference Range: 0.50 - 1.30Glucose [Mass/Vol]94 mg/dL74 - 86MU-Gcydvwuksamup-Jpwcvjcg B102 Work Phone: LDH [Catalytic activity/Vol]161 U/L84 - 246 YB-Vmtuwomamnfpk-Tncqhpmc B102 Work Phone: Potassium [Moles/Vol]4.6 mmol/L3.5 - 5.3 ZX-Kkacnsjcqprzm-Fmftzsqj B102 Work Phone: Protein [Mass/Vol]6.2 g/dLbelow low threshold6.4 - 8.2 FI-Zcqjstitnvoda-Lxcwcqak B102 Work Phone: Sodium [Moles/Vol]140 mmol/L136 - 145 II-Jfjatzhsmuthm-Qsvunnth B102 Work Phone: Urea nitrogen [Mass/Vol]22 mg/dL6 - 23 TC-Fhemhukzqdixd-Koiuspuy B102 Work Phone: [phone] [Mass/Vol]92 mg/dL74 - 99 OW-Caeujpurxrbve-Xflbduvn B102 Work Phone: Otheron 68-79-2610Xrnefyfjvva by: ZARA AHMADI04/02/19 13:04MRN: [id number] Name: KATERINA DANIELLE STUDY:PET/CT LYMPHOMA STAGING; 04/02/2019 [...] units. CO DING:Subsequent Treatment Strategy (PS) CALIBRATION:Dose Hgtjyhlbm-jw-Cujc Interval (mins): 105 minMediastinal bloodpool SUV (normal [...] interpretation as stated. [facility] Electronically signed by: ZARA AHMADI 04/02/19 13:17RuypbaMZ-Yiigaxvhyrrmr-Tmgphvdo B102 Work Phone: Albumin BCP dye [Mass/Vol]4.1 g/dL3.4 - 5.0 PE-Lqzhrcrljocah-Xxevvpej B102 Work Phone: ALT With P-5'-P [Catalytic activity/Vol]34 U/L10 - 52 NV-Ayvnbppaleqng-Ebtrxrbv B102 Work Phone: Comment on above:Patients treated with Sulfasalazine may generate falsely decreased results for ALT.AST With P-5'-P [Catalytic activity/Vol]24 U/L9 - 02FW-Feixjmmjnnwzy-Yjmybzvj B102 Work Phone: [phone] {mL/min/1.73m2}Abnormal>85LC-Peluhsoflrtyg-Uyphockg B102 Work Phone: [phone] {mL/min/1.73m2}Abnormal>40TA-Fqhewariqtjgt-Jjkrxnye B102 Work Phone: [phone] on above:CALCULATIONS OF ESTIMATED GFR ARE PERFORMED USING THE MDRD STUDY EQUATION FOR THE IDMS-TRACEABLE CREATININE METHODS. CLIN CHEM 2007;53:766-72Uric Acid, Serumon 57-62-5030Gndud [Mass/Vol] 5.9 mg/dL4.0 - 7.0OM-Kwrrxygvfgtem-Noncozxz B102 Work Phone: Comment on above:Venipuncture immediately after or during the administration of Metamizole may lead to falsely low results. Testing should be performed immediately prior to Metamizole dosing.Vitamin B12, Serumon 86-28-8416Teffsexzh (Vitamin B12) [Mass/Vol]362 pg/mL211 - 911 HW-Aityorcnlqtdf-Otnhqbwb B102 Work Phone: [phone] Reactive Protein, Serumon 87-69-4282SPH [Mass/Vol] 0.82 mg/rDPK-Uflxeuumaxoji-Lwqgvfrz B102 Work Phone: [phone] on above:REF VALUE< 1.00Complete Blood Count + Differentialon 93-90-4369Dandwvlnh (Bld) [#/Vol]0.01 {x10E9/L}See Below NR-Hpihbkybbzsqg-Bqzwvyuz B102 Work Phone: [phone] on above:Reference Range: 0.00 - 0.10 Basophils/100 WBC (Bld)0.4 %0.0 - 2.2NS-Qxhwucxwboyky-Ijlfaiyc B102 Work Phone: [phone] (Bld) [#/Vol]0.06 {x10E9/L}See Below AL-Mimebpzpduetw-Wyqmxvsl B102 Work Phone: [phone] on above:Reference Range: 0.00 - 0.70 Eosinophils/100 WBC (Bld)2.3 %0.0 - 6.8NM-Gjluqiuekmjcy-Thmljlic B102 Work Phone: [phone] distribution width (RBC) [Ratio]14.9 % above high thresholdSee FzrusGK-Kolcwawzwqtgz-Npeyujmc B102 Work Phone: [phone] on above:Reference Range: 11.5 - 14.5 Hematocrit (Bld) [Volume fraction]37.4 %below low thresholdSee Below HT-Ullqrfdskfpmn-Suhgofeb B102 Work Phone: [phone] on above:Reference Range: 41.0 - 52.0 Hemoglobin (Bld) [Mass/Vol]11.9 g/dLbelow low thresholdSee Below JY-Cuwfpxbjrmppl-Fqceiikz B102 Work Phone: [phone] on above:Reference Range: 13.5 - 17.5 Lymphocytes (Bld) [#/Vol]0.78 {x10E9/L}below low thresholdSee Below YC-Ekvfqtddfajzl-Hioypvdh B102 Work Phone: [phone] on above:Reference Range: 1.20 - 4.80 Lymphocytes/100 WBC (Bld)30.2 %See GevclJJ-Iroxqzubnurcp-Dskeerit B102 Work Phone: Comment on above:Reference Range: 13.0 - 44.0MCHC (RBC) [Mass/Vol]31.8 g/dLbelow low thresholdSee NnvbtJY-Irihxhvtmwhed-Zxesugof B102 Work Phone: Comment on above:Reference Range: 32.0 - 36.0MCV (RBC) [Entitic vol]95 fL80 - 688UK-Nefvdyrewkqdu-Wqdrzivh B102 Work Phone: [phone] (Bld) [#/Vol]0.33 {x10E9/L}See Below JZ-Wjaizuxrubumw-Tggudvtv B102 Work Phone: [phone] on above:Reference Range: 0.10 - 1.00 Monocytes/100 WBC (Bld)12.8 %2.0 - 10.7VK-Noqbfxzgcpqgv-Bdnogskt B102 Work Phone: Neutrophils (Bld) [#/Vol]1.38 {x10E9/L}See Below GM-Wgwtxdgcqrneb-Vvykhzwz B102 Work Phone: Comment on above:Reference Range: 1.20 - 7.70 Neutrophils/100 WBC (Bld)53.5 %See BhvwhCB-Widxmmjqfojin-Oaqtwhkp B102 Work Phone: Comment on above:Reference Range: 40.0 - 80.0Platelets (Bld) [#/Vol]54 {x10E9/L}below low crahoezuk959 - 212WQ-Cvxrahtqefuhf-Ombixink B102 Work Phone: [phone] (Bld) [#/Vol]3.95 {x10E12/L}below low thresholdSee MhyweDI-Myjfopdjgilmw-Msugpcut B102 Work Phone: Comment on above:Reference Range: 4.50 - 5.90WBC (Bld) [#/Vol]2.6 {x10E9/L}below low threshold4.4 - 11.5NY-Aydlwxmwgutql-Rnrolvpy B102 Work Phone: [phone] Blood Count + Differential0.8 %0.0 - 0.9 MU-Exawgetfhtpfi-Vfkyvuxa B102 Work Phone: Comment on above:Percent differential counts (%) should be interpreted in the context of the absolute cell counts (cells/L). Ferritin, Serumon 01-74-3015Aosqyebt [Mass/Vol]569 ug/Labove high tlpasdzfy10 - 048BU-Jpcmbyivtysgu-Lzjzpulu B102 Work Phone: [phone])Fibrinogen Assayon 18-63-5836Luzpvbsrvr Xdbca750 mg/dL 200 - 052BP-Urmgnjchsfmxj-Affnfyqy B102 Work Phone: [phone])Hematologyon 58-68-1496rUVP Coag (PPP) [Time]31 {sec} 28 - 29XL-Gzepppgeszmdb-Bjdsvfbu B102 Work Phone: Comment on above:THE APTT IS NO LONGER USED FOR MONITORING UNFRACTIONATED HEPARIN THERAPY. FOR MONITORING HEPARIN THERAPY, USE THE HEPARIN ASSAY.INR Coag (PPP) [Relative time]1.0 {INR}0.9 - 1.1 UF-Xkxykfytkhxnz-Svxaiupg B102 Work Phone: PT Coag (PPP) [Time]11.0 {sec}9.7 - 12.7 KX-Grhluojaihpru-Ntlccjqr B102 Work Phone: Immunoglobulin G Level, Serumon 52-93-6662GfI [Mass/Vol]263 mg/dLbelow low qoaevdfdj601 - 1380ZD-Chokuhgzevneu-Bncobtmq B102 Work Phone: Comment on above:MONOCLONAL PROTEINS MAY CAUSE FALSELY LOWRESULTS IN THIS ASSAY. SERUM PROTEINELECTROPHORESIS SHOULDBE DONE THEFIRST TEST TO EVALUATE MONOCLONAL GAMMOPATHY.Magnesium, Serumon 03-19-2019 Magnesium [Mass/Vol]2.32 mg/dLSee AtvmkMB-Smyyttqajwmwf-Ibtmzvym B102 Work Phone: Comment on above:Reference Range: 1.60 - 2.40Metabolic Panelon 88-90-4394XLW [Catalytic activity/Vol]359 U/Labove high zbmxqosig52 - 890QL-Bbsjkqnkfatew-Vavcjdry B102 Work Phone: Anion gap [Moles/Vol]13 mmol/L10 - 20 [place]-Glxinwtgbikdw-Zfvmufby B102 Work Phone: Bilirubin [Mass/Vol]0.6 mg/dL0.0 - 1.2 ZK-Uvvxzhocqrqbb-Bhacitry B102 Work Phone: Calcium [Mass/Vol]9.7 mg/dL8.6 - 10.6 IM-Bummvcmtgegxx-Myykzlhu B102 Work Phone: Chloride [Moles/Vol]107 mmol/L98 - 107 QH-Mpvdxpwzfctba-Tiewkxgn B102 Work Phone: UE6 [Moles/Vol]24 mmol/L21 - 32 GC-Jvcxasutsyipw-Ixazacjg B102 Work Phone: Creatinine [Mass/Vol]1.49 mg/dLabove high thresholdSee XosnuES-Bkvdsymumujuv-Jhitikhk B102 Work Phone: Comment on above:Reference Range: 0.50 - 1.30Glucose [Mass/Vol]107 mg/dLabove high twthsamwt19 - 39KO-Gvsrnryheyrfm-Ntiwlpze B102 Work Phone: LDH [Catalytic activity/Vol]171 U/L84 - 246 IM-Rcqszpsuxonko-Lptgixxp B102 Work Phone: Potassium [Moles/Vol]4.2 mmol/L3.5 - 5.3 RN-Msqypuywgohqd-Yyszmafc B102 Work Phone: Protein [Mass/Vol]5.7 g/dLbelow low threshold6.4 - 8.2 EX-Jyykjyhxcqqlu-Eojnspzn B102 Work Phone: Sodium [Moles/Vol]140 mmol/L136 - 145 PR-Unigpimqjvueu-Umziebuq B102 Work Phone: Urea nitrogen [Mass/Vol]21 mg/dL6 - 23 CA-Wukxzioqsjgfj-Eydzhxkj B102 Work Phone: Otheron 28-41-6626Cqolzuh BCP dye [Mass/Vol]4.1 g/dL 3.4 - 5.3WO-Pgbhecsjocoxv-Wmvlmwam B102 Work Phone: ALT With P-5'-P [Catalytic activity/Vol]48 U/L10 - 52 OH-Tcdtfbyxgfltz-Tpkuyhbh B102 Work Phone: [phone] on above:Patients treated with Sulfasalazine may generate falsely decreased results for ALT.AST With P-5'-P [Catalytic activity/Vol]27 U/L9 - 74FF-Bjrkvwpdfjioj-Amrewvbs B102 Work Phone: [phone] {mL/min/1.73m2}Abnormal>10NG-Niatomtshkbzy-Qkkhagwj B102 Work Phone: [phone] {mL/min/1.73m2}Abnormal>47AW-Ukmooobnkibiw-Penjaygj B102 Work Phone: Comment on above:CALCULATIONS OF ESTIMATED GFR ARE PERFORMED USING THE MDRD STUDY EQUATION FOR THE IDMS-TRACEABLE CREATININE METHODS. CLIN CHEM 2007;53:766-72Thyroidon 77-67-3146YOW Qn0.78 {mIU/L}See Below DZ-Qtxnmkfhvaotj-Pvzdzpue B102 Work Phone: Comment on above:Reference Range: 0.44 - 3.98 TSH testing is performed using different testing methodology at [facility] than at other [facility]. Direct result comparisons should only be made within the same method.. Patients receiving more than 5 mg/day of biotin may have interference in test results. A sample should be taken no sooner than eight hours after previous dose. Contact [phone] for additional information.Uric Acid, Serumon 39-65-3380Myhgj [Mass/Vol]5.5 mg/dL4.0 - 7.5 KC-Xmymkvcqailwx-Ojpzwpou B102 Work Phone: Comment on above:Venipuncture immediately after or during the administration of Metamizole may lead to falsely low results. Testing should be performed immediately prior to Metamizole dosing. Vital Signs Date TimeVital SignValuePerforming DjqdrowjpPlwwooyg46-74-6486 11:08-0500Body .9 cmDawfelicia Cole MD Work Phone: [facility]11-10-2025 11:08-0500 Body mass index (BMI) [Ratio]36.75 kg/m2Dawfelicia Cole MD Work Phone: [facility]11-10-2025 11:08-0500 Body amkgyl382.92 kgDawfelicia Cole MD Work Phone: [facility]11-10-2025 11:08-0500 Diastolic blood jyqhjouc63 mm[Hg]Sandra Cole MD Work Phone: [facility]11-10-2025 11:08-0500 Heart rate80 /Silvana Cole MD Work Phone: [facility]11-10-2025 11:08-0500 Systolic blood ajomqroy358 mm[Hg]Sandra Cole MD Work Phone: [facility]09-24-2025 08:58-0400 Body .9 Ty Farias MD Work Phone: [facility] CenterUofuuuerms11-87-2438 08:58-0400Body mass index (BMI) [Ratio]37.03 kg/s3WwdcfxNael Farias MD Work Phone: [phone])-[address] [place], [place] [address]Dmdjwmqqjf08-98-6151 08:58-0400Body izpiwa911.83 kgNael Farias MD Work Phone: 1(349)[facility] [place], [place] [address]Koeypheshf66-39-2552 08:58-0400Heart rate84 /min Nael Farias MD Work Phone: 1(389)[facility] [place], [place] [address]Umhuysvomx10-42-6634 08:58-3107RkW2% (BldA) [Mass fraction]94 %Nael Farias MD Work Phone: 1(097)[address] [place], [place] 6903609-08-2025 13:45-0400Body yuktxm432.9 cmEалександр Farias MD Work Phone: 1(439)[address] [place], [place] 6903609-08-2025 13:45-0400Body mass index (BMI) [Ratio]37.03 kg/z0TzwywuNael Farias MD Work Phone: 1(671)[facility] [place], [place] [address]Dirtpunzqb78-67-3948 13:45-0400Body svjpef135.83 kgNael Farias MD Work Phone: 1(949)[address] [place], [place] 6903606-24-2025 10:53-0400Body bugiys986.9 cmEалександр Farias MD Work Phone: 1(945)[facility] [place], [place] [address]Cacfnflqmw28-12-6214 10:53-0400Body mass index (BMI) [Ratio]35.94 kg/w0OgyhkpNael Farias MD Work Phone: 1(190)[facility] [place], [place] [address]Lckcevuhhj50-11-2780 10:53-0400Body znalrm184.2 kgNael Farias MD Work Phone: 1(470)[facility] [place], [place] [address]Mauuxeevng71-62-3700 10:53-0400Heart vlkn619 /min Nael Farias MD Work Phone: 1(284)[facility] [place], [place] [address]Opczgvhcdb64-44-9824 10:53-3374MwS9% (BldA) [Mass fraction]98 %Nael Farias MD Work Phone: 1(312)[facility] [place], [place] [address]Dwpwelzfnd32-19-1520 11:04-0400Body ufkbqt991.9 cmArash Roland MD Work Phone: 1(100)454-[address] [place], [place] 0708206-19-2025 11:04-0400 Body mass index (BMI) [Ratio]36.67 kg/o1PgkzqChristopher Watkins MD Work Phone: 1(015)[address]06-19-2025 11:04-0400 Body jueoyj286.65 kgChristopher Watkins MD Work Phone: 1(848)[address]06-19-2025 11:04-0400 Diastolic blood uqsisunu18 mm[Hg]Christopher Watkins MD Work Phone: 1(852)[address]06-19-2025 11:04-0400 Heart vwnm097 /Yuki Watkins MD Work Phone: 1(856)[address]06-19-2025 11:04-0400 Systolic blood yahteska908 mm[Hg]Christopher Watkins MD Work Phone: 1(565)[address]06-12-2025 08:50-0400 Body mass index (BMI) [Ratio]36.93 kg/m2Anirudh Sears MD Work Phone: 1(469)[address]06-12-2025 08:50-0400 Body wwdhwawbuhi95.5 [degF]Anirudh Sears MD Work Phone: [phone])630[facility]06-12-2025 08:50-0400 Body wwnaio668.5 kgAnirudh Sears MD Work Phone: 1(490)661[facility]06-12-2025 08:50-0400 Diastolic blood ayuuejao46 mm[Hg]Anirudh Sears MD Work Phone: 1(052)[address]06-12-2025 08:50-0400 Heart rate90 /Alin Sears MD Work Phone: 1(064)[address]06-12-2025 08:50-0400 Respiratory rate16 /Alin Sears MD Work Phone: 1(200)677-[address] [place], [place] 2633012-2025 08:50-0400 SaO2% (BldA) [Mass fraction]95 %Anirudh Sears MD Work Phone: [facility]06-12-2025 08:50-0400 Systolic blood uswxguur208 mm[Hg]Anirudh Seasr MD Work Phone: [facility]05-05-2025 10:34-0400 Body xfogui046.9 cmDaburton Cole MD Work Phone: [facility]05-05-2025 10:34-0400 Body mass index (BMI) [Ratio]36.75 kg/m2Sandra Cole MD Work Phone: 1(022)[facility][note 3][address] [place], [place] 5054605-05-2025 10:34-0400 Body icloeb933.92 kgDaburton Cole MD Work Phone: 1(542)[facility][note 3]8385[facility]05-05-2025 10:34-0400 Diastolic blood emvmulgu78 mm[Hg]Sandra Cole MD Work Phone: [facility]05-05-2025 10:34-0400 Systolic blood chbqdiev208 mm[Hg]Sandra Cole MD Work Phone: [facility]03-06-2025 09:29-0500 Body eavmax630.9 cmEалександр Farias MD Work Phone: [facility] CenterXwdvxxgyqu99-97-4541 09:29-0500Body mass index (BMI) [Ratio]37.03 kg/z7MjzjyvNael Farias MD Work Phone: [facility] CenterYfuvvsrren19-13-3952 09:29-0500Body qwxwyg501.83 kgNael Farias MD Work Phone: [facility] CenterOuxckurfsj87-25-3659 09:29-0500Diastolic blood yhoheqbc80 mm[Hg]Nael Farias MD Work Phone: [facility] CenterXygprkoidn02-51-5623 09:29-0500Heart rate92 /min Nael Farias MD Work Phone: [facility] CenterHobdlrzwqy57-25-1080 09:29-0412QpN2% (BldA) [Mass fraction]95 %Nael Farias MD Work Phone: [facility] CenterHyvdabozmd79-88-9080 09:29-0500Systolic blood eggyzchi772 mm[Hg]Nael Farias MD Work Phone: [facility] CenterLvoaprwpho25-88-5368 14:35-0500Diastolic blood wbphdbum32 mm[Hg]Christopher Watkins MD Work Phone: [facility]02-18-2025 14:35-0500 Heart rate72 /minChristopher Watkins MD Work Phone: 1(735)239-[address] [place], [place] 0708202-18-2025 14:35-0500 Systolic blood mfcjamft199 mm[Hg]Christopher Watkins MD Work Phone: 6(111)852-[address] [place], [place] 0708202-18-2025 14:24-0500 Body .9 cmAslick Watkins MD Work Phone: 2(400)073-[address] [place], [place] 0708202-18-2025 14:24-0500 Body mass index (BMI) [Ratio]37.08 kg/s2PkdznChristopher Watkins MD Work Phone: 1(966)174-73[facility]02-18-2025 14:24-0500 Body sisrfr937.01 kgChristopher Watkins MD Work Phone: 1(466)793-[address] [place], [place] 0708212-23-2024 09:50-0500 Body .9 cmEалександр Farias MD Work Phone: [facility] CenterCjeushcyja25-11-5730 09:50-0500Body mass index (BMI) [Ratio]35.8 kg/e9PjinakNael Farias MD Work Phone: [facility] CenterFvqhhahvjk30-41-1804 09:50-0500Body ylvbqi428.75 kgNael Farias MD Work Phone: [facility] CenterVqszhwavfx95-20-2796 09:50-0500Heart rate66 /min Nael Farias MD Work Phone: [facility] CenterNbojcoiudp84-16-6908 09:50-0807BlH7% (BldA) [Mass fraction]97 %Nael Farias MD Work Phone: [facility] CenterQrepoiylxq56-77-5194 10:24-0500Body mass index (BMI) [Ratio]36.15 kg/m2Anirudh Sears MD Work Phone: 1(448)[address]12-16-2024 10:24-0500 Body hapubjryzcj30.1 [degF]Anirudh Sears MD Work Phone: 1(970)[address] [place], [place] 1586312-16-2024 10:24-0500 Body cmmuub672.9 kgAnirudh Sears MD Work Phone: 1(693)[address] [place], [place] 4100712-16-2024 10:24-0500 Diastolic blood mm[Hg]Anirudh Sears MD Work Phone: 1(574)[address] [place], [place] 1586312-16-2024 10:24-0500 Heart rate68 /minAnirudh Sears MD Work Phone: 1(695)[address] [place], [place] 4100712-16-2024 10:24-0500 Respiratory rate18 /minAnirudh Sears MD Work Phone: 1(084)[address] [place], [place] 4100712-16-2024 10:24-0500 SaO2% (BldA) [Mass fraction]94 %Anirudh Sears MD Work Phone: 1(545)[address] [place], [place] 1586312-16-2024 10:24-0500 Systolic blood wudsiauy836 mm[Hg]Anirudh Sears MD Work Phone: 1(203)[address] [place], [place] 1586311-04-2024 10:16-0500 Body .9 cmDaburton Cole MD Work Phone: [facility]11-04-2024 10:16-0500 Body mass index (BMI) [Ratio]36.89 kg/m2Sandra Cole MD Work Phone: [facility]11-04-2024 10:16-0500 Body heozyu869.38 kgDawn Kelsey GRACE Work Phone: [facility]10-16-2024 14:19-0400 Body .74 kgMD Nael Farias Work Phone: [facility]10-16-2024 14:19-0400 Diastolic blood jotbemju24 mm[Hg]MD Nael Farias Work Phone: 1(999)353-[address] [place], [place] 0276610-16-2024 14:19-0400 Heart rate69 /minMD Nael Farias Work Phone: 1(837)071-[address] [place], [place] 7291610-16-2024 14:19-0400 SaO2% (BldA) [Mass fraction]97 %MD Nael Farias Work Phone: 1(038)183-[address] [place], [place] 0276610-16-2024 14:19-0400 Systolic blood wegaduny200 mm[Hg]MD Nael Farias Work Phone: 1(762)572-[address] [place], [place] 0276610-11-2024 10:11-0400 Body vijnbl817.9 Sukhdeep Watkins MD Work Phone: [facility]10-11-2024 10:11-0400 Body mass index (BMI) [Ratio]35.8 kg/z0IommrChristopher Watkins MD Work Phone: [facility]10-11-2024 10:11-0400 Body iqxyqd864.75 kgChristopher Watkins MD Work Phone: [facility]10-11-2024 10:11-0400 Diastolic blood mm[Hg]Christopher Watkins MD Work Phone: [facility]10-11-2024 10:11-0400 Heart rate67 /minChristopher Watkins MD Work Phone: [facility]10-11-2024 10:11-0400 Systolic blood yehxqnhq896 mm[Hg]Christopher Watkins MD Work Phone: [facility]09-24-2024 09:57-0400 Body .9 cmEалександр Farias MD Work Phone: [facility] CenterDuakdkeqwi32-32-6766 09:57-0400Body mass index (BMI) [Ratio]35.8 kg/s4XxrbgnNael Farias MD Work Phone: [facility] CenterMijzlnbdhg23-21-6819 09:57-0400Body xbhagw532.75 kgNael Farias MD Work Phone: [facility] CenterMugebmhmmu58-13-5480 15:51-0400Body udafhf132.74 kgMD Nael Farias Work Phone: [facility]09-18-2024 15:51-0400 Diastolic blood dfirumyu73 mm[Hg]MD Nael Farias Work Phone: [facility]09-18-2024 15:51-0400 Heart rate70 /minMD Nael Farias Work Phone: [facility]09-18-2024 15:51-0400 SaO2% (BldA) [Mass fraction]97 %MD Nael Farias Work Phone: [facility]09-18-2024 15:51-0400 Systolic blood hfrziwje115 mm[Hg]MD Nael Farias Work Phone: [facility]09-09-2024 08:27-0400 Body wdmdki185.9 cmChristophluda Morrison DO Work Phone: [facility] CenterAqpwswpirm81-39-1917 08:27-0400Body mass index (BMI) [Ratio]35.8 kg/g4Undivubdsjk Prince DO Work Phone: [facility] CenterYkeidnnqgh46-61-8194 08:27-0400Body mwucfn470.75 kgChristopher Prince DO Work Phone: [facility] CenterRppvxzdwhw38-04-0800 08:27-0400Diastolic blood enprroip95 mm[Hg]Nadeem Morrison DO Work Phone: [facility] CenterHmtlnvkegj58-75-5767 08:27-0400Heart rate64 /min Nadeem Morrison DO Work Phone: [facility] CenterBuyzwwcogb05-48-8805 08:27-5770NtI2% (BldA) [Mass fraction]95 %Nadeem Morrison DO Work Phone: [facility] CenterQaggssinnb30-16-0729 08:27-0400Systolic blood hifwayhd336 mm[Hg]Nadeem Morrison DO Work Phone: [facility] CenterBvhuciawnh52-58-7223 10:39-0400Body mass index (BMI) [Ratio]35.8 kg/m2Sandra Cole MD Work Phone: 1(912)[address] [place], [place] 5054605-06-2024 10:39-0400 Body niaqff276.75 kgSandra Cole MD Work Phone: [facility]05-06-2024 10:39-0400 Heart rate72 /minDbobby Cole MD Work Phone: [facility]05-06-2024 10:39-0400 SaO2% (BldA) [Mass fraction]96 %Sandra Cole MD Work Phone: [facility]04-05-2024 09:53-0400 Body twozhw076.9 Sukhdeep Watkins MD Work Phone: [facility]04-05-2024 09:53-0400 Body mass index (BMI) [Ratio]35.67 kg/n5CsjzgChristopher Watkins MD Work Phone: [facility]04-05-2024 09:53-0400 Body sefygj395.3 kgChristopher Watkins MD Work Phone: [facility]04-05-2024 09:53-0400 Diastolic blood geyyujbu93 mm[Hg]Christopher Watkins MD Work Phone: [facility]04-05-2024 09:53-0400 Heart rate62 /minChristopher Watkins MD Work Phone: [facility]04-05-2024 09:53-0400 Systolic blood hcpqkynw764 mm[Hg]Christopher Watkins MD Work Phone: [facility]12-13-2023 11:15-0500 Body mass index (BMI) [Ratio]35.16 kg/m2Anirudh Sears MD Work Phone: [facility]12-13-2023 11:15-0500 Body sklozjqzehv63.3 [degF]Anirudh Sears MD Work Phone: 1(670)299-[address] [place], [place] 7907912-13-2023 11:15-0500 Body yuzenm153.6 kgAnirudh Sears MD Work Phone: 1(879)110-[facility]12-13-2023 11:15-0500 Diastolic blood heyuujge93 mm[Hg]Anirudh Sears MD Work Phone: 1(279)486-[facility]12-13-2023 11:15-0500 Heart rate70 /minAnirudh Sears MD Work Phone: 1(734)335-[facility]12-13-2023 11:15-0500 Respiratory rate16 /minAnirudh Sears MD Work Phone: 1(674)899-[facility]12-13-2023 11:15-0500 SaO2% (BldA) [Mass fraction]98 %Anirudh Sears MD Work Phone: 1(964)048-[facility]12-13-2023 11:15-0500 Systolic blood dxjaoaoy212 mm[Hg]Anirudh Sears MD Work Phone: 1(750)759-[facility]06-22-2023 13:54-0400 Body hdquvv314.88 Ty Farias Work Phone: 1(688) [phone]-Eqwu ManagementBagley Medical Center Work Phone: 1(297) 376-786506-22-2023 13:54-0400Body mass index (BMI) [Ratio] 35.26 kg/n3FczpinNael Farias Work Phone: EM-Tykk [facility] Work Phone: 1(669) 353-677406-22-2023 13:54-0400Body surface area Derived from formula2.38 s7TiqulhNael Farias Work Phone: ZJ-Cnek [facility] Work Phone: 1(764) 548-852706-22-2023 13:54-0400Body gqjdsnusxka78.16 [degF] Nael Farias Work Phone: AP-Bmvu [facility] Work Phone: 1(742) 580-379106-22-2023 13:54-0400Body ujxzdj482.94 kgNael Farias Work Phone: [facility] Work Phone: 1(100) 711-134506-22-2023 13:54-0400Diastolic blood ebrzcnzp64 mm[Hg] Nael Farias Work Phone: TM-[facility]dngH[facility] Work Phone: 1(706) 279-144206-22-2023 13:54-0400Heart rate75 /Mohsen Farias Work Phone: TL-[facility]keH[facility] Work Phone: 1(298) 549-922406-22-2023 13:54-0400Respiratory rate16 /Mohsen Farias Work Phone: QK-Vjzq [facility] Work Phone: 1(979) 393-373806-22-2023 13:54-0529UgK5% (BldA) [Mass fraction]96 % Nael Farias Work Phone: XY-Sgse [facility] Work Phone: 1(864) 338-200406-22-2023 13:54-0400Systolic blood ucomjtxm208 mm[Hg] Nael Farias Work Phone: mp-[facility] ManagementBag[facility] Work Phone: 1(482) 102-303405-31-2023 13:51-0400Body vvyqpo886.88 cmEdscott Farias Work Phone: 1(474) [phone]-NqrweEssentia Health 3 DO Work Phone: 1(883) 763-617905-31-2023 13:51-0400Body mass index (BMI) [Ratio] 36.08 kg/a7PcwisbNael Farias Work Phone: 1(226) [phone]-QrggeSteven Ville [address] DO Work Phone: 1(301) 916-249805-31-2023 13:51-0400Body surface area Derived from formula2.4 d2XpqpygNael Farias Work Phone: 1(655) [phone]-UkdywSteven [place]ille [address] DO Work Phone: 1(276) 281-357205-31-2023 13:51-0400Body uffnucudcvr09.9 [degF]Nael Fraias Work Phone: 1(262) [phone]-JonbeSteven [place] [address] DO Work Phone: 1(596) 156-759105-31-2023 13:51-0400Body nuezof250.66 kgNael Farias Work Phone: 1(444) [phone]-DhjpjSteven [place] [address] DO Work Phone: 1(187) 591-400705-31-2023 13:51-0400Diastolic blood xkrlwnsu77 mm[Hg] Nael Farias Work Phone: 1(749) [phone]-GkzicEssentia Health 3 DO Work Phone: 1(200) 234-546005-31-2023 13:51-0400Heart rate72 /minEалександр Farias Work Phone: 1(886) [phone]-ArvugSteven [place] [address] DO Work Phone: 1(147) 802-631305-31-2023 13:51-0400Systolic blood rohvvmef941 mm[Hg] Nael Farias Work Phone: 1(926) [phone]-CgtiyL[facility] [place] 3 DO Work Phone: 1(185) 880-310104-21-2023 10:45-0400Diastolic blood jezhihgo17 mm[Hg] Nael Borwnevelyn Work Phone: FN-Jgmkbqatuz-[place] 2099 DO Work Phone: 1(937) 918-452404-21-2023 10:45-0400Heart rate82 /minEалександр Partida Andrea Work Phone: mp523-9396TK-Fleqvjofqr-[place] 2099 DO Work Phone: 1(874) 643-115604-21-2023 10:45-4318IjY6% (BldA) [Mass fraction]98 % Nael Partida Andrea Work Phone: 1(981) [phone]-Odgcvpibop-[place] 2099 DO Work Phone: 1(521) 761-254104-21-2023 10:45-0400Systolic blood mm[Hg] Nael Brownevelyn Work Phone: 1(659) [phone]-Letfbnruhe-[place] 2099 DO Work Phone: 1(482) 332-705104-29-2022 10:15-0400Body ljhnue661.88 cmEалександр Brownevelyn Work Phone: 1(402) [phone]-Ymylwzhehg-[place] 2099 DO Work Phone: 1(431) 183-759204-29-2022 10:15-0400Body mass index (BMI) [Ratio] 36.21 kg/r1ZuklpoNael Farias Work Phone: 1(725) [phone]-Evclqmpgtr-[place] 2099 DO Work Phone: 1(500) 956-144504-29-2022 10:15-0400Body surface area Derived from formula2.41 h4TumntlaNel Farias Work Phone: mp429-9528VR-Oegqbbodpp-[place] 2099 DO Work Phone: 1(796) 837-415204-29-2022 10:15-0400Body nqybdt079.11 kgNael Farias Work Phone: mp912-1613WP-Kgbdgvdgyf-[place] 2099 DO Work Phone: 1(132) 102-986504-29-2022 10:15-0400Diastolic blood fwokoctd69 mm[Hg] Nael Farias Work Phone: 1(689) [phone]-Tnffpbwjjy-[place] 2100 DO Work Phone: 1(167) 958-520604-29-2022 10:150400Systolic blood tjrcvltu647 mm[Hg] Nael Farias Work Phone: 1(100) [phone]-Jxiwprvgwb-[place] 2099 DO Work Phone: 1(339) [phone] 10:18-0500Body xqptep428.88 cmEалександр Farias Work Phone: 1(234) [phone][facility] 3 [facility] Work Phone: 1(497) 712-922703-10-2022 10:18-0500Body mass index (BMI) [Ratio] 36.48 kg/v6LvftnkNael Farias Work Phone: 1(661) [phone]-IljfhEss[facility] 3 DO Work Phone: 1(795) 299-926503-10-2022 10:18-0500Body surface area Derived from formula2.42 l7LcefexNael Farias Work Phone: 1(551) [phone]-HvtrpEssentia Health 3 DO Work Phone: 1(530) 555-669803-10-2022 10:18-0500Body qkaszfxiotp79 [degF]Nael Farias Work Phone: 1(227) [phone]-[facility]wn[facility] 3 DO Work Phone: 1(485) 442-738203-10-2022 10:18-0500Body rlmcmy758.02 kgNael Farias Work Phone: 1(467) [phone]-[facility]tbafMad[facility] 3 DO Work Phone: 1(120) 697-844503-10-2022 10:18-0500Diastolic blood xbyuhpnu58 mm[Hg] Nael Farias Work Phone: 1(758) [phone]-[facility]ztykMad[facility] 3 DO Work Phone: 1(267) 623-141203-10-2022 10:18-0500Heart rate72 /minEалександр Farias Work Phone: 1(749)[phone][facility] 3 DO Work Phone: 1(820) 231-111403-10-2022 10:18-0500Systolic blood jpfwumyp447 mm[Hg] Nael Partida Andrea Work Phone: 1(304)[phone]-Xsfzz[facility] 3 DO Work Phone: 1(546) [phone] 11:28-0400Body zrinul811.88 cmEалександр Partida Andrea Work Phone: 1(772) [phone]-Yozeztnupo-[place] 2100 DO Work Phone: 1(650) 576-212309-20-2021 11:28-0400Body mass index (BMI) [Ratio]35.8 kg/g5VoirpoNael Farias Work Phone: mp415-5562SV-Tahyipxukc-[place] 2100 DO Work Phone: 1(302) [phone] 11:28-0400Body surface area Derived from formula2.4 o8EkbvstNael Brownevelyn Work Phone: [id number]-Wxltvsdcfi-[place] 2099 DO Work Phone: 1(380) 655-429309-20-2021 11:28-0400Body .75 kgNael Brownevelyn Work Phone: 1(757) [phone]-Zjliyabpvr-[place] 2100 DO Work Phone: 1(665) 283-799309-20-2021 11:28-0400Diastolic blood mm[Hg] Nael Farias Work Phone: 1(811) [phone]-Cwidoouiti-[place] [address]100 DO Work Phone: 1(434) 323-489409-20-2021 11:28-0400Systolic blood hdlrkjaq019 mm[Hg] Nael Farias Work Phone: 1(860) [phone]-Mpvgjtwkje-[place] [address]100 DO Work Phone: 1(712) 713-684212-02-2019 12:54-0500BMI (Body Mass Index)32.98 kg/m2 Christopher WatkinsQmoujfpFC-Oqcjpsrar-Jlvuqdo Work Phone: 1(216) 12:54-0500Body Uskbyqccckj47.62 [degF]Christopher AlpyyocMV-Pqbnolkeu-Biulntj Work Phone: 1(536) 12:54-0500Body jrynlw689.31 kgArash Roland IA-Hipwhwsre-Emllpvu Work Phone: 1(958)[phone] 12:54-0500BP Ypfvqsswy00 mm[Hg]Christopher BzowmffHY-Rrnakrcfk-Rhdtxlv Work Phone: [phone] 12:54-0500BP Fuqqdkqc149 mm[Hg]Christopher TwfvevbNG-Rqrogpewe-Akoklgc Work Phone: [phone] 12:54-0500BSA (Body Surface Area)2.31 m2 Christopher OokgplxRD-Celkdbssu-Fvzieta Work Phone: [phone] 12:54-7881Hybdhv164.88 cmArash Roland PM-Qkklbljyh-Lplhwtg Work Phone: [phone] 12:54-0500Pulse (Heart Rate)79 /minArash HitdakwQI-Sbbdexsix-Szihzku Work Phone: [phone] 12:54-0500Pulse Douhsacy726 %Christopher Roland KE-Ygtlolree-Gjrxfhh Work Phone: [phone] 12:54-0500Respiratory Rate16 /minArash LuzspkrBF-Qcylwowob-Txvdxuk Work Phone: [phone] 12:54-36936 1Arash Roland JX-Grxnezpvx-Zhypuzv Work Phone: Comment on above:Pain Glpox98-65-9554 11:44-0500BMI (Body Mass Index)33.12 kg/h2Syowq VlhgxpkSQ-Okmzpeewu-Zqewdkp Work Phone: [phone] 11:44-0500Body Lfhlujgbkik81.3 [degF]Christopher OmkfywoFK-Jswaieqlp-Ecfyxnp Work Phone: [phone] 11:44-0500Body jwvryl004.76 kgArash Roland ET-Tfewcgfoq-Ovvmnws Work Phone: [phone] 11:44-0500BP Ajptryyot08 mm[Hg]Christopher XwkvqbfCZ-Edvjouzrb-Cqwgrpm Work Phone: [phone] 11:44-0500BP Olpfoady268 mm[Hg]Christopher WsyytbmZZ-Wnfsgbwce-Miwxfic Work Phone: [phone] 11:44-0500BSA (Body Surface Area)2.32 m2 Christopher AqijqutKD-Vcnceitnn-Rgyokbj Work Phone: 1(214) 11:44-2634Mtkatm465.88 cmArash Roland WA-Hezzymaff-Wdkobhq Work Phone: [phone] 11:44-0500Pulse (Heart Rate)85 /minArash MyxzvvzSO-Boxoxhkco-Zvdpgec Work Phone: [phone] 11:44-0500Pulse Jyvlrrvm703 %Christopher Roland WA-Psocvkjuc-Glcarqi Work Phone: [phone] 11:44-0500Respiratory Rate16 /minArash MfhpqyvDJ-Lplzuhsxb-Ugyodfu Work Phone: [phone] 11:44-61382 1Arash Roland VB-Xeiuasdnn-Psfhbzf Work Phone: Comment on above:Pain Scale Encounters Encounter DateEncounter TypeCare ProviderFacilityStart: 07-12-2025 End: 44-18-0923Qmdwbehrk Result EncounterGeneric External Data ProviderNOMS External Department UnsolicitedStart: 07-12-2025 End: 52-58-4739Ojxjsoaqi Result EncounterGeneric External Data ProviderNOMS External Department UnsolicitedStart: 07-11-2025 End: 95-11-1056Fbigvv outpatient visit 25 minutesDaburton Cole MD Work Phone: [facility]Comment on above:CVID (common variable immunodeficiency) (Multi) (Primary Dx); Moderate persistent asthma without complication (HHS-HCC); Stage 3 chronic kidney disease, unspecified whether stage 3a or 3b CKD (Multi) Start: 07-11-2025 End: 17-08-2325gtfjkvfnyhLXNZ M [facility] AmbulatoryStart: 07-06-2025 End: 67-68-9581Tdqebhmca Result EncounterGeneric External Data ProviderNOMS External Department UnsolicitedStart: 07-06-2025 End: 59-19-4298Mlfnfhhsz Result EncounterGeneric External Data ProviderNOMS External Department UnsolicitedStart: 06-14-2025 End: 92-58-9707Wwbhgdhhu encounterApril Walterjacknajma DOWNEY Sush[facility] Comment on above:Care CoordinationStart: 06-01-2025 End: 95-11-4837Fskmjpcan Result Beni Farias MD Work Phone: noms External Department UnsolicitedStart: 06-01-2025 End: 63-05-8914Ooagebnxt Result Beni Farias MD Work Phone: noms External Department UnsolicitedStart: 05-25-2025 End: 62-16-9722Ngftzp flowsLucina Farias MD Work Phone: noMS Sushant 100 Family MedicineStart: 05-25-2025 End: 23-15-2288Jlankr flowsLucina Farias MD Work Phone: noms Sushant 100 Family MedicineStart: 05-25-2025 End: 91-52-7999Qoojlv outpatient visit 25 minutesEdscott Farias MD Work Phone: noMS Sushant 100 Family MedicineComment on above:Chronic pain syndrome (Primary Dx); Moderate persistent asthma without complication (HCC); Drug-induced diffuse interstitial pulmonary fibrosis; Morbid obesity (CMS-HCC); BMI 37.0-37.9, adult; Stage 3b chronic kidney disease (CMS-HCC); Venous insufficiencyStart: 05-25-2025 End: 78-41-2429xikkhsxsecGYNHNY J HEMEYERNot AvailableStart: 05-09-2025 End: 43-53-3216Okducm Carmenza Farias MD Work Phone: NOMS [place] [facility] MedicineStart: 05-09-2025 End: 97-71-1336Qlmfvd Carmenza Farias MD Work Phone: noms [address] MedicineStart: 05-09-2025 End: 11-80-7367Xxzsao outpatient visit 25 minutesEdscott Farias MD Work Phone: N[facility] [place] [facility] MedicineComment on above:Edema of both legs (Primary Dx); Drug-induced diffuse interstitial pulmonary fibrosis; Moderate persistent asthma without complication (HCC); Systolic dysfunction; Stage 3b chronic kidney disease ([facility]-HCC)Start: 05-09-2025 End: 25-54-4486iaptavggrnHVTKTI J HEMEYERNot AvailableStart: 03-09-2025 End: 85-20-9705Bjqbavdyy Result EncounterGeneric External Data ProviderNOMS External Department UnsolicitedStart: 03-09-2025 End: 48-24-6313Ogxptlghl Result EncounterGeneric External Data ProviderNOMS External Department UnsolicitedStart: 02-22-2025 End: 52-23-9464Footsk Carmenza Farias MD Work Phone: NOMS CI FM 100Start: 02-22-2025 End: 54-87-4008Esxfkh Carmenza Farias MD Work Phone: NOMS CI FM 100Start: 02-22-2025 End: 02-17-7101Zilrme outpatient visit 25 minutesNael Farias MD Work Phone: NOMS CI FM 100Comment on above:Nausea (Primary Dx); Moderate persistent asthma without complication (HCC); Drug-induced diffuse interstitial pulmonary fibrosis; Chronic pain syndrome; SpasmStart: 02-22-2025 End: 59-99-0938guejllelvtUNCMUM J HEMEYERNot AvailableStart: 02-17-2025 End: 78-66-2599Fgqlhf outpatient visit 25 minutesChristopher Watkins MD Work Phone: [facility] DrComment on above:Stage 3b chronic kidney disease (Multi) (Primary Dx); Essential hypertension; Hyperparathyroidism, secondary (Multi); Diffuse large B-cell lymphoma, unspecified body region (Multi)Start: 02-17-2025 End: 41-51-6586amieuutkuxNMVDQPiedmont [facility] AmbulatoryStart: 02-10-2025 End: 55-89-9282Xrsdqh outpatient visit 25 minutesAnirudh Sears MD Work Phone: uh [facility] DrComment on above: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 (Primary Dx)Start: 02-10-2025 End: 56-15-2351ysiwomrdeuLBDY C [facility]: 01-31-2025 End: 17-76-3433Jpzwwclte Result EncounterGeneric External Data ProviderNOMS External Department UnsolicitedStart: 01-31-2025 End: 00-63-6645Vciwnxmxn Result EncounterGeneric External Data ProviderNOMS External Department UnsolicitedStart: 01-10-2025 End: 24-21-0373Ycngaj Carmenza Farias MD Work Phone: NOMS CI FM 100Start: 01-10-2025 End: 49-69-0613Edwtlkvenancio Farias MD Work Phone: NOMS CI FM 100Start: 01-10-2025 End: 46-89-4053hfkvxxwrqxGRKJYU J HEMEYERNot AvailableStart: 01-03-2025 End: 06-38-6716Picecm outpatient visit 25 minutesDaburton Cole MD Work Phone: uh [facility]Comment [facility]:CVID (common variable immunodeficiency) (Primary Dx); Moderate persistent asthma without complication ([facility]-HCC)Start: 01-03-2025 End: 50-90-6160qeyvxmypqoDZAC M [facility]ASpecial[facility] AmbulatoryStart: 12-15-2024 End: 72-59-3322Emzyslcgh Result EncounterGeneric External Data ProviderNOMS External Department UnsolicitedStart: 12-15-2024 End: 29-44-3564Fuxialosn Result EncounterGeneric External Data ProviderNOMO External Department UnsolicitedStart: 11-04-2024 End: 80-60-1244Ivxxpe flowsLucina Farias MD Work Phone: NOMS CI FM 100Start: 11-04-2024 End: 03-03-1123Rosliq flowsLucina Farias MD Work Phone: N[facility]S CI FM 100Start: 11-04-2024 End: 57-28-1312Zrtgyuy encounter procedureNael Farias MD Work Phone: noMS [...] chronic kidney disease (HCC) (CMS/HCC)Start: 11-04-2024 End: 64-02-2432gpkncvhpefZPMWHW J HEMEYERNot AvailableStart: 10-19-2024 End: 35-76-7724Pvnfqd outpatient visit 25 minutesChristopher Watkins MD Work Phone: [facility] DrComment on above:Stage 3b chronic kidney disease (Multi) (Primary Dx); Essential hypertension; Hyperparathyroidism, secondary (Multi); Diffuse large B-cell lymphoma, unspecified body region (Multi)Start: 10-19-2024 End: 88-62-4350tcdapmtfyuAFMUAPiedmont Macon [facility] Hospital AmbulatoryStart: 09-22-2024 End: 84-64-0853Epimxzkgy Result EncounterGeneric External Data ProviderNOMS External Department UnsolicitedStart: 09-22-2024 End: 84-62-1614Nsbcgohzn Result EncounterGeneric External Data ProviderNOMS External Department UnsolicitedStart: 08-23-2024 End: 09-81-7910Nglngz Carmenza Farias MD Work Phone: NOMS CI FM 100Start: 08-23-2024 End: 68-93-3291Aqlrux Carmenza Farias MD Work Phone: noms CI FM 100Start: 08-23-2024 End: 43-16-5253Jqyjmt outpatient visit 25 minutesEdscott Farias MD Work Phone: noms CI FM 100Comment on above:Spasm (Primary Dx); Chronic pain syndrome; Drug-induced polyneuropathy (CMS/HCC); Moderate persistent asthma without complication (CMS/HCC)Start: 08-23-2024 End: 33-64-9853quwpoecwkgTAAHWM J HEMEYERNot AvailableStart: 08-16-2024 End: 47-56-2792Windnp outpatient visit 40 minutesPefrem Sears MD Work Phone: [facility] DrComment on above: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 (Primary Dx); Hypogammaglobulinemia (Multi)Start: 08-16-2024 End: 00-00-8454vdtwmhcbvmAIHL C [facility] Hospital[facility]art: 08-12-2024 End: 07-06-4013Rqnfyyirn Result EncounterGeneric External Data ProviderNOMS External Department UnsolicitedStart: 08-12-2024 End: 63-56-5519Lneaafehm Result EncounterGeneric External Data ProviderNOMS External Department UnsolicitedStart: 07-05-2024 End: 48-12-9851Yzadip outpatient visit 25 minutesDawn M Kelsey MD Work Phone: uh [facility] HospitalComment on above:CVID (common variable immunodeficiency) (Primary Dx); Asthma, unspecified asthma severity, unspecified whether complicated, unspecified whether persistent ([facility])Start: 06-30-2024 End: 80-66-1618Wyiyjplfh Result EncounterGeneric External Data ProviderNOMS External Department UnsolicitedStart: 06-30-2024 End: 53-12-3358Cvrxdphch Result EncounterGeneric External Data ProviderNOMS External Department UnsolicitedStart: 06-16-2024 End: 81-15-0684saviljjdrwNY Nael Farias Work Phone: [facility] Work Phone: Start: 06-16-2024 End: 11-49-2367Akwwins encounter procedureMD Nael Farias Work Phone: [facility] Work Phone: Start: 06-11-2024 End: 19-04-9356Uichao outpatient visit 25 minutesChristopher Watkins MD Work Phone: uh [facility] DrComment on above:Stage 3b chronic kidney disease (Multi) (Primary Dx); Essential hypertension; Hyperparathyroidism, secondary (Multi)Start: 06-02-2024 End: 71-92-1426Bhuhdpwuq Result EncounterGeneric External Data ProviderNOMS External Department UnsolicitedStart: 06-02-2024 End: 07-31-3076Rfcypupfn Result EncounterGeneric External Data ProviderNOMS External Department UnsolicitedStart: 05-31-2024 End: 21-52-3302Cdmsuvkaj Beni Farias MD Work Phone: [facility] CI FM 100Start: 05-25-2024 End: 70-23-5524Udzofz flowsheetNael Farias MD Work Phone: [facility] CI FM 100Start: 05-25-2024 End: 79-57-2355Onudhx flowsLucina Farias MD Work Phone: [facility] CI FM 100Start: 05-25-2024 End: 70-51-0868Lowygg outpatient visit 15 minutesEdscott Farias MD Work Phone: [facility] CI FM 100Comment on above:Chronic pain syndrome; Drug-induced polyneuropathy (CMS/HCC); Spasm; Moderate persistent asthma without complication (CMS/HCC); Morbid obesity (CMS/HCC); BMI 35.0-35.9,adultStart: 05-19-2024 End: 98-16-7594ggckyhdermPK Nael Farias Work Phone: [facility] Work Phone: Start: 05-19-2024 End: 48-86-3011Kadrbpe encounter procedureMD Nael Farias Work Phone: [facility] Work Phone: Start: 05-10-2024 End: 06-86-0661Dhkesz flowsheetChristopher Prince DO Work Phone: noms [address] R[address]TEStart: 05-10-2024 End: 82-25-2138Athoin flowsheetChristopher Prince DO Work Phone: noms [address] R[address]TEStart: 05-10-2024 End: 74-20-5188Hignpf outpatient visit 25 minutesChristopher Prince DO Work Phone: noms [address] ROUTEComment on above:Cervical radiculopathy (Primary Dx); Multilevel degenerative disc diseaseStart: 04-27-2024 End: 44-18-3874Qkargd outpatient visit 15 minutesAnirudh Sears MD Work Phone: [facility] DrComment on above: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 (Multi) (Primary Dx); Hypogammaglobulinemia (Multi)Start: 04-27-2024 End: 63-10-2622dhhwjvieqbZKPC C ARORAMercy Healthtart: 04-15-2024 End: 52-51-2298Dnkmybf encounter procedureMD Nael Farias Work Phone: [facility] Work Phone: Start: 04-15-2024 End: 17-52-7904opxgzhuclcGK Nael Farias Work Phone: [facility] Work Phone: Start: 01-05-2024 End: 18-26-5935Redrzh outpatient visit 25 minutesSandra Cole MD Work Phone: uh [facility] HospitalComment on above:Asthma, unspecified asthma severity, unspecified whether complicated, unspecified whether persistent ([facility]-HCC) (Primary Dx); CVID (common variable immunodeficiency) ([facility])Start: 12-05-2023 End: 43-99-4468Mxuiog outpatient visit 15 minutesChristopher Watkins MD Work Phone: [facility] DrComment on above:Stage 3b chronic kidney disease (CMS/HCC) (Primary Dx); Essential hypertension; Hyperparathyroidism, secondary (CMS/HCC)Start: 09-09-2023 End: 11-60-0422Emfyee outpatient visit 25 minutesSandra Cole MD Work Phone: uh [facility] HospitalComment on above: Hypogammaglobulinemia (CMS/HCC) (Primary Dx); CVID (common variable immunodeficiency) (CMS/HCC)Start: 08-13-2023 End: 61-14-2166Rdukyj outpatient visit 15 minutesAnirudh Sears MD Work Phone: uh [facility] DrComment on above: Hypogammaglobulinemia (CMS/HCC)Start: 11-18-6772ebjlhuxwyrKaMary FariasFacility:[address]Fswiq: 35-92-5468Ae RenewalNael Farias Work Phone: [phone]-CpphqEssentia Health 3 DO Work Phone: Start: 20-03-0391RYLDQCkhwpm J Hemeyer Work Phone: [facility] Work Phone: Start: 85-26-9751Gfsgxwx tobacco non-user cad cap copd pv dmEdscott Jaquan Stephanieevelyn Work Phone: [phone]-Nflw Management-[facility] Work Phone: Start: 22-02-9548hczvvbbntdNr. Fab Clark Facility:[id number]: 38-15-1109Rquriq outpatient visit 25 minutesEdscott Farias Work Phone: [phone]-CgumeNorth Shore Health 3 DO Work Phone: Start: 24-99-7006hlpfgstlocSa. Nael Farias Facility:[id number]: 79-33-4888sdlbctpesqCd. Nael FariasFacility:[facility] CtrStart: 01-02-2023 End: 23-74-7147evznantiklTUAY M ZACHARIASFacility:V3Tntwp: 19-72-8591Ifgqlp outpatient visit 15 minutesNael Farias Work Phone: [phone]-Gupqmhlgqz-[place] [address] DO Work Phone: Start: 74-37-1732Ssmohzy encounter procedureNael Farias Work Phone: [phone]-Ymyvknckgx-[place] [address]100 DO Work Phone: Start: 86-45-6041dmjqsunipcKd. Nael Farias Facility:[id number]: 65-33-4108Cb RenewalNael Farias Work Phone: [phone]-AgflvSt. Luke'S Hospital 250 DO Work Phone: Start: 10-15-2022 End: 35-32-3742ogbkufqcedZV NAEL FARIAS .Facility:A6Wudjk: 10-11-2022 End: 84-78-8657ftdrgefpygIZ DOCTOR MISCFacility:P2Girgh: 99-01-9402ascoeqvjga Anirudh C AroraFacility:[facility] CtrStart: 09-27-2022 End: 49-84-6672fnyosgnsneMF DOCTOR MISCFacility:W1Eiurc: 00-44-9121qzzfprxqkw Anirudh C AroraFacility:[facility] CtrStart: 01-21-4732ejbnppotmxBhfi Chrissy AroraFacility:9542Start: 08-12-2022 End: 14-13-5447adwungiggiEA DOCTOR MISCFacility:A5Pewcs: 07-18-2022 End: 70-50-5434ixrejwiekpUW DOCTOR MISCFacility:X6Sgiqa: 67-37-7158yafymuxtxnGj. Nael FariasFacility:[address]Vgjtj: 06-11-2022 End: 30-53-1399ypqwcszvbuKQ Nael Farias Work Phone: [facility] Work Phone: Start: 06-11-2022 End: 35-84-7214Qjwigtp encounter procedureMD Nael Farias Work Phone: [facility] Ibt-Ucq-Grdtlqvg Testing Start: 04-01-2022 End: 40-69-1395hgjpqmazzfTG NAEL FARIAS .Facility:Q0Dglpa: 02-21-20[address] Nael FariasFacility:9542Start: 02-20-2022 End: 99-67-0465ioiqqozlufMO DOCTOR MISCFacility:C2Pnyti: 85-27-5100Ylivzl outpatient visit 15 minutesEdscott Farias Work Phone: [phone]-Ugaohjtmks-[place] 2099 DO Work Phone: Start: 44-68-1624Vnxdfut encounter procedureNael Farias Work Phone: [phone]-Jgdovzrfwx-[place] 2100 DO Work Phone: Start: 35-35-2522bwgutroglfNv. Nael Farias Facility:9537Start: 00-10-3418Wrgaxo outpatient visit 25 minutesEdscott Farias Work Phone: [phone]-Nomjn [facility] 3 DO Work Phone: Start: 88-04-8410Sgvnt UpdateEdscott Farias Work Phone: [phone]-Ndpbtipbba-[place] 2100 DO Work Phone: Start: 36-85-0043Dozmrca encounter procedureEdscott Farias Work Phone: [phone]-Mitlaretbf-[place] 2100 DO Work Phone: Start: 21-39-6436Dusyowc encounter procedureArachelsea GjtvthvET-Wkpbvdyog-Lvnnpwh Work Phone: Start: 79-33-7876Yyamhce encounter procedureArash ZrhecveIB-Mylzfxekr-Tpqssjw Work Phone: Start: 71-38-3317Sikhikw encounter procedureEdward GevegcpUJ-Ccjdvwyctvcib-Xbdszwjk B102 Work Phone: Start: 23-20-7979Zmrnrjb encounter procedureEdward TjfbhjiYH-Nkxxzgdwbdkho-Cgoiuhlf B102 Work Phone: Start: 99-93-6680Jvqivsk encounter procedureEdward FxvvyhdLR-Gbllffwpvptex-Gwzhplyb B102 Work Phone: Start: 37-71-0155Quotein encounter procedureEdward KrmwdaoKM-Ljsuftrwdpihg-Cadkezvz B102 Work Phone: Start: 45-92-4642Myzblmd encounter procedureEdward FqqluhpCV-Amdvagrhofkaa-Lsqivfzr B102 Work Phone: Start: 67-48-9016Wyvqytk encounter procedureEdward AgwtglbET-Opfifpvpujvkh-Cfagiuaa B102 Work Phone: Procedures DateProcedureProcedure DetailPerforming ClinicianStart: 40-64-6434PJQ BASIC METABOLIC PANELGeneric External Data ProviderStart: 40-43-7704ATA CMP (CMP) (FOR REMOTE [facility] USE)Generic External Data ProviderStart: 77-67-5416GKH BASIC METABOLIC PANELNael Farias MD Work Phone: Start: 43-72-3258YIR IMMUNOGLOBULIN GGeneric External Data ProviderStart: 92-70-9733TRT CBC WITH AUTO DIFFGeneric External Data ProviderStart: 37-15-8631UHD CMP (CMP) (FOR REMOTE [facility] USE)Generic External Data ProviderStart: 79-46-4079HNP CMP (CMP) (FOR REMOTE [facility] USE)Generic External Data ProviderStart: 86-05-8783BNI CBC WITH AUTO DIFFGeneric External Data ProviderStart: 85-78-6569KLL IMMUNOGLOBULIN GGeneric External Data Provider Start: 64-18-3727CPS CBC WITH AUTO DIFFGeneric External Data ProviderStart: 37-35-7002WRP of cervical spine with contrastMD Moizscott Andrea Work Phone: Start: 12-54-9911VOI of headMD Nael Farias Work Phone: Start: 72-20-1658KeiydvclyfoAqlv Arora MD Work Phone: Start: 60-53-2785Kftiu of blood/uric acidArash Roland Start: 38-41-5176Xdybf of parathormoneArash RashidiStart: 40-07-8646Yczjp of phosphorus inorganicArash RashidiStart: 93-28-2958Rcysg metabolic 1998 panel - Serum or PlasmaArash RashidiStart: 82-17-3692Bipga metabolic 1998 panel - Serum or PlasmaArash RashidiStart: 16-10-909804 hydroxy includes fractions if performedArash RashidiStart: 08-19-6434Xtvgk of blood/uric acidArash Roland Start: 55-50-3750Yuyjt of parathormoneArash RashidiStart: 22-30-6966Xmswn of phosphorus inorganicArash RashidiStart: 40-77-8482Mpipk metabolic 1998 panel - Serum or PlasmaArash RashidiStart: 10-09-5930Pwouictkpp other sourceArash RashidiStart: 66-48-8227Wbrjpuu total xcpt refractometry urineArash Roland Start: 47-38-4944Vlunypsnsi Kidney BilateralArash RashidiStart: 10-90-0932Sizas dip stick/tablet rgnt auto w/o microscopyArash RashidiStart: 56-87-2834Pmrji 1996 panel - Serum or PlasmaAnirudh Sears MD Work Phone: Fasciotomy of Aquilino Mcdaniel Antigen (LFIA)MD Nael Farias Work Phone: Plan of Treatment DateCare ActivityDetailAuthorStart: 37-95-0638Sglvdvmwi for malignant neoplasm of [facility]edoStart: 49-65-3922Btgvevzpl vaccination Influenza Vaccine (#1)[facility] HealthcareComment on above:Postponed from 05/02/2025 (Patient Refused)Start: 01-09-2026 End: 29-84-0641Iqppdus encounter eqhpdaatj46/11/2026 11:00 AM EDT Office Visit [facility] [address] [facility] [address] [place] [phone] Sandra Cole MD [address] [facility], 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 Expected: 08/16/2025, Expires: 02/14/2026[facility] Work Phone: Comment on above:Expected: 08/16/2025, Expires: 02/14/2026Start: 08-16-2025 End: 38-91-8681Ownzzejvndjqm metabolic 2000 panel - Serum or PlasmaComprehensive metabolic panel Lab Routine 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 Expected: 08/16/2025 (Approximate), Expires: 02/14/2026[facility] Work Phone: Comment on above:Expected: 08/16/2025 (Approximate), Expires: 02/14/2026Start: 08-16-2025 End: 26-47-6873Izjvjob dehydrogenase [Enzymatic activity/volume] in Serum or Plasma by Lactate to pyruvate reactionLactate dehydrogenase Lab Routine Diffuse large B-cell lymphoma of extranodal site excluding spleenand other solid organs Expected: 08/16/2025 (Approximate), Expires: 02/14/2026[facility] Work Phone: Comment on above:Expected: 08/16/2025 (Approximate), Expires: 02/14/2026Start: 08-15-2025 End: 35-36-1944Etbrozi encounter vjoivmtei40/15/2025 10:40 AM EST Office Visit [facility] [address] [place] [address] [address] [place] [phone] Anirudh Sears MD [address] [place] [address] [address] [place] [address] [facility] DrStart: 08-12-2025 End: 49-88-9894EHV W Auto Differential panel - BloodCBC and Auto Differential Lab Routine 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 Expected: 08/12/2025 (Approximate), Expires: 02/10/2026 [facility] Work Phone: Comment on above:Expected: 08/12/2025 (Approximate), Expires: 02/10/2026Start: 08-12-2025 End: 55-76-7989Sqregwwcbozwp metabolic 2000 panel - Serum or PlasmaComprehensive Metabolic Panel Lab Routine 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 Expected: 08/12/2025 (Approximate), Expires: 02/10/2026[facility] Work Phone: Comment on above:Expected: 08/12/2025 (Approximate), Expires: 02/10/2026Start: 08-12-2025 End: 90-52-8651Bpygpyt dehydrogenase [Enzymatic activity/volume] in Serum or Plasma by Lactate to pyruvate reactionLactate dehydrogenase Lab Routine Diffuse large B-cell lymphoma of extranodal site excluding spleenand other solid organs Expected: 08/12/2025 (Approximate), Expires: 02/10/2026[facility] Work Phone: Comment on above:Expected: 08/12/2025 (Approximate), Expires: 02/10/2026Start: 08-11-2025 End: 11-45-1757Svbzqdl encounter bevdnoyxs32/11/2025 11:30 AM EST Office Visit [facility] [address] [facility] [address] [place] [address] Christopher [place] [id number] [place] [address] [address] [place] [address] [facility] DrStart: 07-11-2025 End: 20-17-3688Tuzlm metabolic 2000 panel - Serum or PlasmaBasic Metabolic Panel Lab Routine CVID (common variable immunodeficiency) (Multi) Expected: 07/11/2025 (Approximate), Expires: 07/11/2026[facility] Work Phone: Comment on above:Expected: 07/11/2025 (Approximate), Expires: 07/11/2026Start: 07-11-2025 End: 24-61-6174SnD [Mass/volume] in Serum or PlasmaIgG Lab Routine CVID (common variable immunodeficiency) (Multi) Expected: 07/11/2025 (Approximate),Expires: 07/11/2026[facility] Work Phone: Comment on above:Expected: 07/11/2025 (Approximate), Expires: 07/11/2026Start: 07-11-2025 End: 05-69-7468Xyvdihg encounter uextgmzig88/10/2025 11:15 AM EST Office Visit [facility] [address] [place] [address] Sandra Cole MD [address] [facility], [address] [place] [address] [facility] 05-25-2025 End: 34-91-3624Tdvzp metabolic 1998 panel - Serum or PlasmaBasic metabolic panel Lab Routine Stage 3b chronic kidney disease (CMS-HCC) Expected: 05/25/2025 (Ap proximate), Expires: 05/25/2026[facility] Work Phone: Comment on above:Expected: 05/25/2025 (Approximate), Expires: 05/25/2026Start: 05-25-2025 End: 82-69-3604Diyxneg encounter procedureNOMS CI FM 100Comment on above:Chronic pain syndrome; Moderate persistent asthma without complication (HCC); Drug-induced diffuse interstitial pulmonary fibrosis; Thickening of pleura; Morbid obesity ([facility]-HCC); BMI 37.0-37.9, adultStart: 05-09-2025 End: 37-14-5678Ofafuja encounter ejqdtrpxb48/08/2025 1:45 PM EDT Office Visit [facility] [place] [address] [facility] 100 [place] [address] Nael Farias MD [address] [facility] 100 [place] [address] [facility]rivedNOIN[facility] [place] 100 Family MedicineComment on above:ArrivedStart: 68-58-9821OFYZH-19 Vaccine ( season)COVID-19 Vaccine ( season)[facility] HealthcareStart: 05-02-2025 Influenza vaccinationNOMS HealthcareStart: 66-89-2962Vevatmbby vaccination Influenza Vaccine (#1)[facility]: [facility]2025 Influenza vaccinationInfluenza Vaccine (#1)[facility] HealthcareComment on above: Postponed from 05/02/2024 (Patient Refused)Start: 02-22-2025 End: 54-50-5892Bbwumnc encounter oedejiykc08/24/2025 11:00 AM EDT Office Visit [facility] [address] [facility] 100 [place] [address] Nael Farias MD 112 [facility] [address] [place] [address] Moderate persistent asthma without complication (HCC); Drug-induced diffuse interstitial pulmonary fibrosis; Chronic pain syndromeNOMS CI FM 100Comment on above:Moderate persistent asthma without complication (HCC); Drug-induced diffuse interstitial pulmonary fibrosis; Chronic pain syndromeStart: 02-17-2025 End: 65-36-3407Nmcvn metabolic 2000 panel - Serum or PlasmaBasic Metabolic Panel Lab Routine Stage 3b chronic kidney disease (Multi) Essential hypertension Hyp erparathyroidism, secondary (Multi) Diffuse large B-cell lymphoma, unspecified body region (Multi) Expected: 02/17/2025 (Approximate), Expires: 02/17/2026[facility] Work Phone: Comment on above:Expected: 02/17/2025 (Approximate), Expires: 02/17/2026Start: 02-17-2025 End: 94-42-2376Pokxnorsvu [Mass/volume] in UrineCreatinine, Urine Random Lab Routine Stage 3b chronic kidney disease (Multi) Essential hypertension Hyperparathyroidism, secondary (Multi) Diffuse large B-cell lymphoma, unspecified body region (Multi) Expected: 02/17/2025 (Approximate), Expires: 02/17/2026[facility] Work Phone: Comment on above:Expected: 02/17/2025 (Approximate), Expires: 02/17/2026Start: 02-17-2025 End: 14-24-5517Mllnfuuddx.intact [Mass/volume] in Serum or PlasmaParathyroid Hormone, Intact Lab Routine Stage 3b chronic kidney disease (Multi) Essential hypertension Hyperparathyroidism, secondary (Multi) Diffuse large B-cell lymphoma, unspecified body region (Multi) Expected: 02/17/2025 (Approximate), Expires: 02/17/2026[facility] Work Phone: Comment on above:Expected: 02/17/2025 (Approximate), Expires: 02/17/2026Start: 02-17-2025 End: 07-18-2905Nogawjj, Urine RandomProtein, Urine Random Lab Routine Stage 3b chronic kidney disease (Multi) Essential hypertension Hyperparathyroidism, secondary (Multi) Diffuse large B-cell lymphoma, unspecified body region (Multi) Expected: 02/17/2025 (Approximate), Expires: 02/17/2026[facility] Work Phone: Comment on above:Expected: 02/17/2025 (Approximate), Expires: 02/17/2026Start: 02-17-2025 End: 99-01-2574Rqyrgkd encounter ebarwiyhc85/19/2025 11:30 AM EDT Office Visit [facility] [address] [facility] [address] [place] [address] [place] [address] [place] [address] [address] [place] [address] [facility] DrStart: 01-10-2025 End: 76-77-8460Yoybbwd encounter /12/2025 1:45 PM EDT Office Visit [facility] [address] [place] [address] Nael Farias MD [address] [place] [address] (Fax) ArrivedNOMS CI FM 100Comment on above: ArrivedStart: 01-03-2025 End: 27-06-8313Miubfaf encounter sxfkkivqy49/05/2025 10:45 AM EDT Office Visit [facility] [address] [facility] [address] [place] [address] Sandra Cole MD [address] [facility], [facility] [address] [place] [address] (Fax)[facility]: 45-44-0103Gbcmrawk mellitus screeningDiabetes ScreeningUnElyria Memorial HospitalStart: 11-04-2024 End: 77-23-1674Pddqbmo encounter yiixoswjl82/06/2025 9:30 AM EST Office Visit [facility] [address] [place] [address] Nael Farias MD [address] [place] [address] (Fax) Encounter for Medicare annual wellness exam; [...] (AWV)Medicare Annual Wellness (AWV)[facility] HealthcareStart: 10-19-2024 End: 79-32-6771Iifkg metabolic 2000 panel - Serum or PlasmaBasic Metabolic Panel Lab Routine Stage 3b chronic kidney disease (Multi) Essential hypertension Hyp erparathyroidism, secondary (Multi) Diffuse large B-cell lymphoma, unspecified body region (Multi) Expected: 10/19/2024 (Approximate), Expires: 10/19/2025[facility] Work Phone: Comment on above:Expected: 10/19/2024 (Approximate), Expires: 10/19/2025Start: 10-19-2024 End: 59-20-3228Saxkcbnfhj [Mass/volume] in UrineCreatinine, Urine Random Lab Routine Stage 3b chronic kidney disease (Multi) Essential hypertension Hyperparathyroidism, secondary (Multi) Diffuse large B-cell lymphoma, unspecified body region (Multi) Expected: 10/19/2024 (Approximate), Expires: 10/19/2025[facility] Work Phone: Comment on above:Expected: 10/19/2024 (Approximate), Expires: 10/19/2025Start: 10-19-2024 End: 19-24-3344Uicncrvssg.intact [Mass/volume] in Serum or PlasmaParathyroid Hormone, Intact Lab Routine Stage 3b chronic kidney disease (Multi) Essential hypertension Hyperparathyroidism, secondary (Multi) Diffuse large B-cell lymphoma, unspecified body region (Multi) Expected: 10/19/2024 (Approximate), Expires: 10/19/2025[facility] Work Phone: Comment on above:Expected: 10/19/2024 (Approximate), Expires: 10/19/2025Start: 10-19-2024 End: 76-09-5764Akpgqqc, Urine RandomProtein, Urine Random Lab Routine Stage 3b chronic kidney disease (Multi) Essential hypertension Hyperparathyroidism, secondary (Multi) Diffuse large B-cell lymphoma, unspecified body region (Multi) Expected: 10/19/2024 (Approximate), Expires: 10/19/2025[facility] Work Phone: Comment on above:Expected: 10/19/2024 (Approximate), Expires: 10/19/2025Start: 10-08-2024 End: 26-92-2059Zqagrtk encounter hcgtiljhc96/07/2025 10:40 AM EST Office Visit [facility] [address] [place] [address] [address] [place] [address] Christopher Watkins MD [address] [place] [address] Dr [address] [place] [address] [facility] DrStart: 08-23-2024 End: 48-38-5935Nogyzgg encounter procedureNOMS CI FM 100Comment on above:Arrived Start: 08-16-2024 End: 77-12-5680Jdzmytu encounter lccjrohat20/16/2024 10:40 AM EST Office Visit [facility] [address] [place] [address] [address] [place] [address] Anirudh Sears MD [address] [place] [address] [address] [place] [address] [facility] DrStart: 08-09-2024 End: 10-52-4074Isvqphs encounter sebyscqvv61/09/2024 8:20 AM EST Office Visit [facility] [address] [place] [address] Arely Gabriel NP [address] [place] [address] [facility] ROUTEStart: 07-14-2024 End: 90-41-2419Jyakrvg encounter byaskpedu01/13/2024 1:45 PM EST Office Visit [facility] [address] [place] [address] Nohelia Machado, DO [address] [place] [address] NOMAlexia OXANA PULMStart: 07-05-2024 End: 24-93-9677Cxjpnqa encounter pfuxifebg10/04/2024 10:45 AM EST Office Visit [facility] [address] [place] [address] Sandra Cole MD [address] [facility], [facility] [address] [place] [id number] [facility]: 06-11-2024 End: 76-24-8230Xrdra metabolic 2000 panel - Serum or PlasmaBasic Metabolic Panel Lab Routine Stage 3b chronic kidney disease (Multi) Essential hypertension Hyp erparathyroidism, secondary (Multi) Expected: 06/11/2024 (Approximate), Expires: 06/11/2025[facility] Work Phone: Comment on above:Expected: 06/11/2024 (Approximate), Expires: 06/11/2025Start: 06-11-2024 End: 22-66-1089Etkkrhgdle [Mass/volume] in UrineCreatinine, Urine Random Lab Routine Stage 3b chronic kidney disease (Multi) Essential hypertension Hyperparathyroidism, secondary (Multi) Expected: 06/11/2024 (Approximate), Expires: 06/11/2025[facility] Work Phone: Comment on above:Expected: 06/11/2024 (Approximate), Expires: 06/11/2025Start: 06-11-2024 End: 82-67-0276Egfduenadx.intact [Mass/volume] in Serum or PlasmaParathyroid Hormone, Intact Lab Routine Stage 3b chronic kidney disease (Multi) Essential hypertension Hyperparathyroidism, secondary (Multi) Expected: 06/11/2024 (Approximate), Expires: 06/11/2025[facility] Work Phone: Comment on above:Expected: 06/11/2024 (Approximate), Expires: 06/11/2025Start: 06-11-2024 End: 60-52-4139Sfunhia, Urine RandomProtein, Urine Random Lab Routine Stage 3b chronic kidney disease (Multi) Essential hypertension Hyperparathyroidism, secondary (Multi) Expected: 06/11/2024 (Approximate), Expires: 06/11/2025 [facility] Work Phone: Comment on above:Expected: 06/11/2024 (Approximate), Expires: 06/11/2025Start: 06-11-2024 End: 80-78-4188Lozlklv encounter dejxezkpc89/11/2024 10:30 AM EDT Office Visit [facility] [address] [place] [address] [address] [place] [address] Christopher Watkins MD [address] [place] [address] Dr [address] [place] [address] [facility] DrStart: 05-25-2024 End: 87-67-2295Crpkzcb encounter /24/2024 10:00 AM EDT Office Visit [facility] [address] [phone] Nael Farias MD [address] [facility] [place] [address] (Fax) Chronic pain syndrome; Drug-induced polyneuropathy (CMS/HCC); Spasm; Moderate persistent asthma without complication (CMS/HCC); Morbid obesity (CMS/HCC); BMI 35.0-35.9,adultNOMS CI FM 100Comment on above: Chronic pain syndrome; Drug-induced polyneuropathy (CMS/HCC); Spasm; Moderate persistent asthma without complication (CMS/HCC); Morbid obesity (CMS/HCC); BMI 35.0-35.9,adultStart: 05-12-2024 End: 23-13-5020Rtyhfce encounter aewfcuefn41/11/2024 10:30 AM EDT Office Visit [facility] 100 112 [facility] 100 [place] [address] Nael Farias MD [address] [facility] [place] [address] [facility] CI FM 100Start: 05-10-2024 End: 86-34-6110Ipfmdvn encounter lquhrxqet04/09/2024 8:30 AM EDT Office Visit [facility] [address] [place], [place] [address] [address] Nadeem Morrison DO [address] [place] [address] ArrivedNOHENRY COUNTY [facility] ROUTEComment on above:ArrivedStart: 29-01-9186RZCFH-19 Vaccine ( season)COVID-19 Vaccine ( season)[facility]: 05-02-2024 COVID-19 Vaccine ( season)COVID-19 Vaccine ( season) [facility] HospitalStart: 00-96-5342GMZET-19 Vaccine ( season)COVID-19 Vaccine ( season)[facility] Start: 83-85-3569Dwedcqhcu vaccinationInfluenza Vaccine (#1)[facility] Start: 01-05-2024 End: 18-20-3630Gsjseyi encounter xlmnfybip72/06/2024 10:45 AM EDT Office Visit [facility] [address] [place] [address] Sandra Cole MD [address] [facility], [facility] [address] [place] [address] [facility]: 12-05-2023 End: 79-68-3475Pacuk metabolic 2000 panel - Serum or PlasmaBasic Metabolic Panel Lab Routine Stage 3b chronic kidney disease (CMS/HCC) Essential hypertension E xpected: 12/05/2023 (Approximate), Expires: 12/04/2024[facility] Work Phone: Comment on above:Expected: 12/05/2023 (Approximate), Expires: 12/04/2024Start: 12-05-2023 End: 29-90-2391Bzfthngqky [Mass/volume] in UrineCreatinine, Urine Random Lab Routine Stage 3b chronic kidney disease (CMS/HCC) Essential hypertension Expected: 12/05/2023 (Approximate), Expires: 12/04/2024[facility] Work Phone: Comment on above:Expected: 12/05/2023 (Approximate), Expires: 12/04/2024Start: 12-05-2023 End: 91-97-5294Xiisvlslti.intact [Mass/volume] in Serum or PlasmaParathyroid Hormone, Intact Lab Routine Stage 3b chronic kidney disease (CMS/HCC) Essential hypertension Expected: 12/05/2023 (Approximate), Expires: 12/04/2024[facility] Work Phone: Comment on above:Expected: 12/05/2023 (Approximate), Expires: 12/04/2024Start: 12-05-2023 End: 91-75-3571Acwfayv, Urine RandomProtein, Urine Random Lab Routine Stage 3b chronic kidney disease (CMS/HCC) Essential hypertension Expected: 12/05/2023 (Approximate), Expires: 12/04/2024[facility] Work Phone: Comment on above:Expected: 12/05/2023 (Approximate), Expires: 12/04/2024Start: 11-27-2023 End: 50-42-2326Zyypayj encounter zawelbcui88/28/2024 12:20 PM EDT Office Visit [facility] [address] [facility] [address] [place] [address] [place] [address] [facility] [address] [place] [address] [facility] DrStart: 10-20-2023 End: 35-76-2109Xzgoteg encounter /19/2024 3:00 PM EST Office Visit [facility] [address] [facility] [address] [place] [address] Sandra Cole MD [address] [facility], [facility] [address] [place] [address] [facility]: 09-09-2023 End: 66-61-8583Iawsnxhknfsfetw (IgG, IgA, IgM)Immunoglobulins (IgG, IgA, IgM) Lab Routine CVID (common variable immunodeficiency) (CMS/HCC) Expected: 09/09/2023 (Approximate), Expires: 09/09/2024[facility] Work Phone: comment on above:Expected: 09/09/2023 (Approximate), Expires: 09/09/2024Start: 08-12-2023 End: 27-79-8545YWF W Auto Differential panel - BloodCBC and Auto Differential Lab Routine Hypogammaglobulinemia (CMS/HCC) Expected: 08/12/2023 (Approximate), Expires: 08/11/2024[facility] Work Phone: Comment on above:Expected: 08/12/2023 (Approximate), Expires: 08/11/2024Start: 08-12-2023 End: 91-15-0255Jphddjexmweko metabolic 2000 panel - Serum or PlasmaComprehensive Metabolic Panel Lab Routine Hypogammaglobulinemia (CMS/HCC) Expected: 08/12/2023 (Approximate), Expires: 08/11/2024[facility] Work Phone: Comment on above:Expected: 08/12/2023 (Approximate), Expires: 08/11/2024Start: 08-12-2023 End: 21-46-8553Jtbnvta dehydrogenase [Enzymatic activity/volume] in Serum or Plasma by Lactate to pyruvate reactionLactate dehydrogenase Lab Routine Hypogammaglobulinemia (CMS/HCC) Expected: 08/12/2023 (Approximate), Expires: 08/11/2024[facility] Work Phone: Comment on above:Expected: 08/12/2023 (Approximate), Expires: 08/11/2024Start: 93-20-2897CKZCM-19 Vaccine (4 - Pfizer risk series) COVID-19 Vaccine (4 - Pfizer risk series)[facility]: 97-25-9596RWRIF-19 Vaccine ( season)COVID-19 Vaccine ( season)[facility]: 32-86-8248FULJZ-19 Vaccine ( season)COVID-19 Vaccine ( season)[facility]: 40-14-4513EJLLP-19 Vaccine ( season)COVID-19 Vaccine ( season)[facility]: 77-25-0469TNC, Provider: Christopher Watkins, Status: Pen, Time: 12:50 PMFUV, Provider: Christopher Watkins, Status: Pen, Time: 12:50 PM-[facility] 3 DO Work Phone: Start: 29-39-9553YYW, Provider: Christopher Watkins, Status: Pen, Time: 11:10 AMFUV, Provider: Christopher Watkins, Status: Pen, Time: 11:10 AM [facility] 2100 DO Work Phone: start: 34-73-5373KOP, Provider: Christopher Watkins, Status: Pen, Time: 1:00 PMFUV, Provider: Christopher Watkins, Status: Pen, Time: 1:00 PM[facility] 250 DO Work Phone: Start: 88-29-4959Wdgvp panelLipid PanelUnProMedica Toledo Hospital: 22-88-7319Fotcvcou mellitus screeningDiabetes ScreeningUnProMedica Tol[facility] Hospital: 58-72-9908DCJ, Provider: Christopher Watkins, Status: Pen, Time: 2:10 PMFUV, Provider: Christopher Watkins, Status: Pen, Time: 2:10 PMEssentia Health 3 DO Work Phone: Start: 64-00-0556SUZ, Provider: Christopher Watkins, Status: Pen, Time: 10:00 AMFUV, Provider: Christopher Watkins, Status: Pen, Time: 10:00 AM QY-Zugrlhfjgg-Vqxsgkkb 2100 DO Work Phone: Start: 18-79-3818Kgjcgfhik B Vaccines (1 of 3 - Risk 3-dose series)Hepatitis B Vaccines (1 of 3 - Risk 3-dose series)[facility]: 67-94-8089HOL High Risk: (Elderly (60+) or Population) (1 - Risk 60-74 years 1-dose series)RSV High Risk: (Elderly (60+) or Population) (1 - Risk 60-74 years 1-dose series)[facility]: 34-22-2626OUP patients and/or patients aged 60+ years (1 - 1-dose 60+ series)RSV patients and/or patients aged 60+ years (1 - 1-dose 60+ series)[facility]: 97-08-7127Lmbtjdzcpb Kidney ViislrqpmTX-Xlshrhjpo-Qcdcono Work Phone: Start: 60-18-9457Pstcibqj specific antigen measurement PSA Prostate Cancer ScreeningUnProMedica Toledo Hospital: 2010 RSV High Risk: (Elderly (60+) or Population) (1 - Risk 50-74 years 1- dose series)RSV High Risk: (Elderly (60+) or Population) (1 - Risk 50- 74 years 1-dose series)[facility]: 1982 DTaP/Tdap/Td Vaccines (1 - Tdap)DTaP/Tdap/Td Vaccines (1 - Tdap)[facility]: 60-79-3383Iavomefxs A Vaccines (1 of 2 - Risk 2- dose series)Hepatitis A Vaccines (1 of 2 - Risk 2-dose series)[facility]: 64-69-9174Xadjguqlpgaa vaccinationPneumococcal Vaccine (1 of 2 - PCV)[facility]: 11-16-1979 Pneumococcal Vaccine: Pediatrics (0 to 5 Years) and At-Risk Patients (6 to 64 Years) (1 of 2 - PCV)Pneumococcal Vaccine: Pediatrics (0 to 5 Years) and At-Risk Patients (6 to 64 Years) (1 of 2 - PCV)[facility]: 62-42-9127Wufwq screening for proteinCKD: Urine Protein ScreeningUniversity Hospitals Samaritan Medical Center: 56-56-2920Xthits Vaccines (1 of 2)Zoster Vaccines (1 of 2) [facility]: 03-55-4886Ixkzbzbccbpz Vaccine: Pediatrics (0 to 5 Years) and At-Risk Patients (6 to 64 Years) (1 - PCV) Pneumococcal Vaccine: Pediatrics (0 to 5 Years) and At-Risk Patients (6 to 64 Years) (1 - PCV)[facility]: 57-50-4732Voyttjktxacb Vaccine: Pediatrics (0 to 5 Years) and At-Risk Patients (6 to 64 Years) (1 of 2 - PCV)Pneumococcal Vaccine: Pediatrics (0 to 5 Years) and At-Risk Patients (6 to 64 Years) (1 of 2 - PCV)[facility]: 68-15-9762IKV screeningHIV ScreeningUnProMedica Toledo Hospital: 03-17-1961Medicare Annual Wellness VisitMedicare Annual Wellness Visit (AWV)[facility]: 48-60-3242Pfzzdkmgr for malignant neoplasm of [facility] ToledoaPTT in Platelet poor plasma by Coagulation assayHarrison Community Hospital End: 65-93-8992Amzruejamltui metabolic 2000 panel - Serum or PlasmaComprehensive Metabolic Panel Lab Routine CVID (common variable immunodeficiency) (Multi) Every 3 months for 6 Occurrences starting 07/11/2025 until 01/08/2027[facility] Work Phone: comment on above:Every 3 months for 6 Occurrences starting 07/11/2025 until 01/08/2027Platelets [#/volume] in BloodClinton Memorial Hospital-[facility] Work Phone: [facility] Community HospitalNEGATED: Highlighted row has been ruled out!Planned Goals not entvbnmtlgOL-Rvftzitwm-Jakwiol Work Phone: Immunizations Immunization DateImmunizationNotesCare ZdfvbbmrRpafnhwk16-55-0291qqqtedxmr, injectable, quadrivalent, preservative freeChristopher Prince DO Work Phone: [facility] CenterIedgkabont74-20-0141vgrwgywre virus vaccine, unspecified formulationAnirudh Sears MD Work Phone: [facility] Work Phone: [phone] Bivalent Booster Vaccination Nadeem Prince DO Work Phone: noCox MonettNvxrcfsmbb55-46-4765Ckkzzu Bivalent Booster 12 Years And OlderChristop Prince DO Work Phone: noCox MonettUndwaeugmb07-15-3693Reowcw COVID-19 vaccine, bivalent, age 12 years and older (30 mcg/0.3 mL)Anirudh Sears MD Work Phone: [facility] Work Phone: [phone]dzsdhb, injectable, quadrivalent, preservative freeAnirudh Sears MD Work Phone: [facility] Work Phone: [phone] Newman Cap PVEI-IgH-6Glgx Arora MD Work Phone: [facility] Work Phone: [phone]-IkqIVhsd COVID-19 Vacc 30 MCG/0.3ML Intramuscular SuspensionNael Farias Work Phone: [phone]-QklgoNorth Shore Health 3 DO Work Phone: [phone]kh, mumps and rubella virus vaccine Nael Brownevelyn Work Phone: [phone]-WewruNorth Shore Health 3 DO Work Phone: Payers DateP[facility] CategoryPayerPolicy [id number]-dhf [id number] [id number] (Managed Care) [id number] 2.16.840.1.168979.3.57[id number] 2.16.840.1.194447.3.57[id number] 2.16.840.1.414443.3.57[id number] 2.16.840.1.614969.3.57[id number] 2.16.840.1.428532.3.579.[id number] 2.16.840.1.878370.3.579.[id number] 2.16.840.1.646838.3.579.2.57048-68-0653Acfpysw6270474 2..840.1.868270.3.57[id number] 2.16.840.1.953753.3.579.2.89452-75-1301Wgarflh6655063 2..840.1.112249.3.579.2.81192-03-8487Gbgfkxo5232766 2..840.1.608693.3.57[id number] 2..840.1.504678.3.57[id number] 2.840.1.931777.3.57[id number] 2.840.1.921696.3.579.[id number] 2..840.1.768363.3.57[id number] 2.840.1.535394.3.579.[id number] 2.840.1.010106.3.579.[id number] 2..840.1.385699.3.579.[id number] 2.840.1.067680.3.579.2.60877-92-7610Gspiyfn197553301 2..840.1.696028.3.579.2.413077-14-4982Ebhmjif580250116 2..840.1.556630.3.579.2.413110-57-4889Bivjlkc85143039 2..840.1.476920.3.57[id number] 2.16.840.1.631900.3.579.2.742408-20-0069Asnbkxe39034981 2..840.1.658967.3.57[id number] 2..840.1.908104.3.579.2.704963-60-2645Ojnkhuw4526165 2..840.1.717842.3.579.2.221678-59-3244Oflrmxr3263753 2..840.1.113959.3.579.2.647241-80-8905Xzrrsyo8739252 2..840.1.609981.3.579.2.682093-62-0603Egbuyng309515029 2..840.1.521672.3.579.2.161259-26-9909Dpiwdmz068860760 2..840.1.677980.3.579.2.5737[id number] 2..840.1.556834.3.57[id number] 2.840.1.254367.3.579.[id number] Health InsuranceUnited Healthcare [id number] [id number] Social History DateTypeDetailFacilityStart: 08-13-2023 End: 14-36-0376Zvksu a smokerNever a smokerUTAH STATE HOSPITAL HealthcareStart: 17-67-0344Mco [facility] Hospitaltart: 07-16-2023 End: 21-75-5104Cmbycbu smoking status NHISNever smoked tobaccoOhioHealth Grady Memorial HospitalHistory of tobacco usePassive smokerOhioHealth Grady Memorial Hospital Work Phone: Start: 07-16-2023 End: 38-04-2058Twlganp use and exposureSmokeless tobacco non-userUnElyria Memorial Hospital Work Phone: Start: 08-13-2023 End: 84-27-5832Txldwnh intakeLifetime non-drinker (finding)[facility] Work Phone: Start: 08-13-2023 End: 98-35-3442Srxwgka use panelUTAH STATE HOSPITAL HealthcareStart: 65-58-0305Fgf Assigned At BirthNot on fileOhioHealth Grady Memorial Hospital Work Phone: Start: 08-03-2023 End: 07-18-7396Rtutcjjj to SARS-CoV-2 (event)Not sureOhioHealth Grady Memorial HospitalStart: 05-25-2024 End: 09-67-4098Wdgxuvxmp beverage intakeEx-drinker (finding)[facility] Within the last year, have you been afraid of your partner or ex-partner?NoNOMS HealthcareAre you now , , , , never or living with a partner?MarriedNOMS HealthcareHow often to you have a drink containing alcohol?NeverNOMS HealthcareStart: 60-82-1216Tse many standard drinks containing alcohol do you [...] cups per day sodaNOMS HealthcareStart: 04-17-2024 End: 36-85-9821Fwrhbilw to SARS-CoV-2 (event)Unable to assessOhioHealth Grady Memorial HospitalHow hard is it for you to [...] from your doctor or pharmacy [SILS]RarelyNOMS HealthcareStart: 16-40-2863XmyWjbj (finding)[facility] HospitalNEGATED: Highlighted row--[facility] [address] Work Phone: Functional Status InkfOclugmmyddRotdcoRnkxrmic49-25-8578Xocoegqame aptwsu805/82 07/11/2025 11:08 AM Flori Baum [place] [facility]11-10-2025 Vital signs80 07/11/2025 11:08 AM Flori Baum MAOhioHealth Grady Memorial Hospital Work Phone: [phone]) 259-728209776131-74-7493Kcuqsyv Health Questionnaire 2 item (PHQ-2) [Reported][facility] Emgxifkpjd08-52-1779Cwzyxep Health Questionnaire 2 item (PHQ-2) [Reported][facility] HealthcareNEGATED: Highlighted rowFunctional performance Functional status health issues are not documented Disease KN-Gaaknqektpcqm-Eyimreqn [address]102 Work Phone: Mental Status DateAssessmentResultFacilityNEGATED: Highlighted rowCognitive function [Interpretation]Cognitive status health issues are not documented Disease QQ-Irzqndceyopcu-Yrdnpqok [address] Work Phone: Clinical Notes 09-06-2020 to 07-12-2025 Note Date & TtcvIdtkIoorkfsi73-91-4722 Evaluation + Plan note* Assessment & Plan Note - Sandra Cole MD - 07/12/2025 8:47 AM ESTAssociated Problem(s): CKD (chronic kidney disease), stage III ([facility]) Patient's creatinine increased significantly. He currently sees Dr. Watkins. I explained to him hiscreatinine may have increased due to the large protein bolus associated with IVIG infusions. I willcheck his creatinine now and then prior to his next infusion. If his creatinine remains elevated I will discuss his case with his rnp and most likely I am going to ask him to change to subcut aneous immunoglobulin. This is more gentle on his kidneys. [facility] Work Phone: [phone]) 953-263511-11-2025 Miscellaneous Notes* Assessment & Plan Note - Sandra Cole MD - 07/12/2025 8:47 AM ESTAssociated Problem(s): CKD (chronic kidney disease), stage III ([facility]) Patient's creatinine increased significantly. He currently sees Dr. Watkins. I explained to him hiscreatinine may have increased due to the large protein bolus associated with IVIG infusions. I willcheck his creatinine now and then prior to his next infusion. If his creatinine remains elevated I will discuss his case with his rnp and most likely I am going to ask him to change to subcut aneous immunoglobulin. This is more gentle on his kidneys. * Assessment & Plan Note - Carolyn Morrison - 07/11/2025 11:53 AM ESTAssociated Problem(s): Asthma ([facility]) ACT 22. Sx are under control with no exacerbations. He continues Wixela. He will continue Wixela one inhalation two times a day and albuterol as needed. * Assessment & Plan Note - Carolyn Morrison - 07/09/2025 6:45 PM ESTAssociated Problem(s): CVID (common variable immunodeficiency) ([facility]) Infusions are well-tolerated with no SE [...] reactions. He will continue Gammagard infusions at [facility] as scheduled. documented in this [facility] Work Phone: [phone]) 930-246311-10-2025 Evaluation + Plan note* Assessment & Plan Note - Carolyn Morrison - 07/11/2025 11:53 AM ESTAssociated Problem(s): Asthma ([facility]) ACT 22. Sx are under control with no exacerbations. He continues Wixela. He will continue Wixela one inhalation two times a day and albuterol as needed. [facility] Work Phone: 1(697) 332-619111-10-2025 History of Present illness Narrative* Sandra Cole MD - 07/11/2025 11:15 AM EST Subjective Katerina Danielle is a 64 y.o. male who presents for Follow-up and Asthma (ACT 22). Chief Complaint Patient presents with Follow-up Asthma ACT 22 Patient presents for F/U of asthma and CVID. Started IVIG 2018 and Gammagard 10-03-23 at [facility]. Heis receiving 40 grams every month. Since last visit, 01-03-25, patient states his IgG and renal panel were elevated. He had his rtqsykpi4-18-64 and had his labs drawn 4 days [...] [address] Christopher Watkins, [employer], for his CKD but he feels he [...] reactions. He will continue Gammagard infusions at [facility] as scheduled. Asthma ([facility]) ACT 22. Sx are under control with no exacerbations. He continues Wixela. He will continue Wixela one inhalation two times a day and albuterol as needed. CKD (chronic kidney disease), stage III ([facility]) Patient's creatinine increased significantly. He currently sees Dr. Watkins. I explained to him hiscreatinine may have increased due to the large protein bolus associated with IVIG infusions. I willcheck his creatinine now and then prior to his next infusion. If his creatinine remains elevated I will discuss his case with his rnp and most likely I am going to [...] both accurate and complete. documented in this encounterOhioHealth Grady Memorial Hospital Work Phone: 1([phone]) 159-900911-10-2025 Instructions* Patient Instructions* Carolyn Morrison - 07/11/2025 11:15 AM EST Have blood work to evaluate renal panels. I will follow up with you with results and further recommendations. Have blood work for renal, hepatic and pre-infusion, IgG level. I will follow up with you with results and further recommendations. Continue Gammagard 40 g IV infusions every 4 weeks at [facility] as scheduled. Send me a message if you have not heard from me. Continue Wixela one inhalation two times a day and albuterol as needed. Follow up in 6 months or sooner if symptoms worsen prior. documented in this encounterOhioHealth Grady Memorial Hospital Work Phone: [phone] 463-608111-08-2025 Evaluation + Plan note* Assessment & Plan [...] reactions. He will continue Gammagard infusions at [facility] as scheduled. [facility] Work Phone: [phone] Telephone encounter Note* Telephone Encounter - Nael Farias MD - 06/14/2025 10:48 AM EDT [facility]ox[facility]-5507 Miscellaneous Notes* Telephone Encounter - Nael Farias [...] swelling is completely gone. documented in this encounterRusk Rehabilitation CenterNjtppkwqzl75-63-8294 Telephone encounter Note* Telephone Encounter - Elizabeth [...] the morning the swelling is completely gone. [facility] CenterSlnqkcbeud16-00-9533 History of Present illness Narrative* Nael Farias [...] wound care cholecalciferol (Vitamin D-3) 250 MCG (24389 UT) capsule Take 1 capsule by mouth [...] in stem cell transplants. 4. Morbid obesity ([facility]) Chronic problem that has actually worsening a bit. We discussed the importance of eliminating sugars minimizing simple carbohydrates in the have a formal exercise program. He tends to pick projects and then he overdoes it in his sore for days afterwards. 5. BMI 37.0-37.9, adult Defines the morbid obesity 6. Stage 3b chronic kidney disease ([facility]) - Basic metabolic panel; Future - Basic [...] substitutions may have occurred. documented in this encounterRusk Rehabilitation CenterIjshozqxub12-97-2123 History of Present illness Narrative* Nael Farias [...] wound care cholecalciferol (Vitamin D-3) 250 MCG (43039 UT) capsule Take 1 capsule by mouth [...] substitutions may have occurred. documented in this encounterRusk Rehabilitation CenterBpqwzvudjq87-25-9809 History of Present illness Narrative* Nael Farias [...] mouth Daily cholecalciferol (Vitamin D-3) 250 MCG (11039 UT) capsule Take 1 capsule by mouth [...] 20 tablet; Refill: 0 documented in this encounterRusk Rehabilitation CenterHjvgwrwmqt82-15-1549 History of Present illness Narrative* Anirudh Sears [...] Labs/Imaging/Pathology: personally reviewed reports and images in [employer] electronic medical record system. Pertinent results as it related to the plan represented in below in assessment and plan. Assessment/Plan 1. 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 documented in this encounterUnElyria Memorial Hospital Work Phone: [phone] Evaluation + Plan note* Assessment & Plan Note - Carolyn Morrison - 01/03/2025 10:57 AM EDTAssociated Problem(s): CVID (common variable immunodeficiency) Infusions are going well with no SE or infections x6 months. He had a GI viral illness since that started with profuse diarrhea and emesis but is improving. He will continue his Gammagard infusions as scheduled with quarterly blood work. [facility] Work Phone: 1([phone] 343-567705-05-2025 Miscellaneous Notes* Assessment & Plan Note - [...] and albuterol as needed. documented in this encounterOhioHealth Grady Memorial Hospital Work Phone: [phone] Evaluation + Plan note* Assessment & Plan Note - Carolyn Morrison - 01/03/2025 10:56 AM EDTAssociated Problem(s): Asthma ACT 19. No flares or exacerbations and Sx are well-controlled on his medications. He will continue Wixela and albuterol as needed. [facility] Work Phone: [phone] History of Present illness Narrative* Sandra Cole MD - 01/03/2025 10:45 AM EDT Subjective Katerina Danielle is a 64 y.o. male who presents for Follow-up (Act 19). Chief Complaint Patient presents with Follow-up Act 19 Patient presents for F/U of asthma and CVID. Started IVIG 2018 and Gammagard 10-03-23 at [facility]. Since last visit, 07-05-24, patient reports since [...] that showed something on top of his chitina and he was referred to Dr. Sears, [...] at supper. He has never seen a waterside worker. He has an appointment with his PCP [...] Mood normal. Behavior: Behavior normal. Assessment/Plan Asthma ([facility]) ACT 19. No flares or exacerbations and [...] exam, discussion and plan. documented in this encounterOhioHealth Grady Memorial Hospital Work Phone: [phone] 269-333605-05-2025 Instructions* Patient Instructions* Carolyn Morrison - 01/03/2025 10:45 AM EDT Continue Wixela one inhalation two times a day and albuterol as needed. Continue Gammagard infusions at [facility] as scheduled. Follow up in 6 months or sooner if symptoms worsen prior. documented in this encounterOhioHealth Grady Memorial Hospital Work Phone: [phone] History of Present illness Narrative* Nael Farias [...] mouth Daily cholecalciferol (Vitamin D-3) 250 MCG (93646 UT) capsule Take 1 capsule by mouth [...] Do you have a medical power of erisa attorney?: No Objective : BP 124/78 Pulse [...] through a living will, durable power of erisa attorney for healthcare, or other advanced directives. [...] on November 04, 2024 documented in this encounterRusk Rehabilitation CenterJkqaqzvpts13-32-6519 History of Present illness Narrative* Christopher Watkins MD - 10/19/2024 2:30 PM EST Katernia Danielle 63 y.o. @WT@ [facility]/Room: 42131339/Room/bed info not found Subjective: The patient is [...] mg/3 mL nebulizer solution Inhale. artificial tears, fbrqoei-lvsmqwq-jcnxnasx, 0.1-0.3-0.2 % ophthalmic solution Administer into affected [...] Onco-Nephrology Program Division of Nephrology & Hypertension [facility] documented in this encounterOhioHealth Grady Memorial Hospital Work Phone: [phone] History of Present illness Narrative* Nael Farias [...] mouth Daily cholecalciferol (Vitamin D-3) 250 MCG (80410 UT) capsule Take 1 capsule by mouth [...] or shortness of breath documented in this encounterRusk Rehabilitation CenterWzzkdhxdcm41-30-6850 History of Present illness Narrative* Anirudh Sears [...] Labs/Imaging/Pathology: personally reviewed reports and images in [employer] electronic medical record system. Pertinent results as it related to the plan represented in below in assessment and plan. Assessment/Plan 1. 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 Patient will consider 6. Hypogammaglobulinemia: - Restarted [...] has been transcribed using a medical assistant per diem and there is a possibility of unintentional typing misprints. 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 male who presents for Follow-up (ACT 19). Chief Complaint Patient presents with Follow-up ACT 19 Patient presents for F/U of asthma and CVID. Started Gammagard 224 at [facility]. Started IVIG in 2018. At that time he received home health out of [place] to come to his home for administration. He would experience flulike symptoms with headache drainage and GI upset that would take him approximately a week to recover from. Therefore he discontinued treatment. He was then started on HyQvia around March 2021. He was changed to IVIG at [facility] due to cost. Since last visit, 01-05-24, [...] work ordered Jun [address] Watkins, [employer]. He had an MRI of his head [...] Mood normal. Behavior: Behavior normal. Assessment/Plan Asthma ([facility]) ACT is 19. He is doing well [...] exam, discussion and plan. documented in this encounterOhioHealth Grady Memorial Hospital Work Phone: [phone] 528-587411-04-2024 Instructions* Patient Instructions* Carolyn Morrison - 07/05/2024 10:45 AM EST Continue Wixela one inhalation two times a day. Continue Gammagard infusions at [facility] as scheduled. Follow up in 6 months or sooner if symptoms worsen prior. documented in this encounterOhioHealth Grady Memorial Hospital Work Phone: [phone] 282-867711-04-2024 Evaluation + Plan note* Assessment & Plan Note - Carolyn Morrison - 07/05/2024 10:36 AM ESTAssociated Problem(s): CVID (common variable immunodeficiency) He is tolerating his Gammagard well. Last IgG was 741. Cost is still an issue, but the patient understands that he has few options. He will continue his current treatment. He is due to for a level quarterly [facility] Work Phone: [phone] Miscellaneous Notes* Assessment & Plan Note - [...] inhalation twice a day. documented in this encounterUnElyria Memorial Hospital Work Phone: [phone] 961-473711-03-2024 Evaluation + Plan note* Assessment & Plan Note - Carolyn Morrison - 07/04/2024 8:04 PM ESTAssociated Problem(s): Asthma ACT is 19. He is doing well from an asthma standpoint. He will continue the Wixela one inhalation twice a day. [facility] Work Phone: [phone] Telephone encounter Note* Telephone Encounter - Nael Farias MD - 05/31/2024 1:01 PM EDT [facility] CenterDkvmubbxid28-24-2470 Miscellaneous Notes* Telephone Encounter - Nael Farias MD - 05/31/2024 1:01 PM EDT Prescription sent * Telephone Encounter - Paige Aparicio - 05/31/2024 11:37 AM EDT Chad left a message requesting a refill on his Gabapentin. He states he thought he should have a new refill but pharmacy says no. [facility] [place] documented in this encounterRusk Rehabilitation CenterHigxhogprk84-37-1475 Telephone encounter Note* Telephone Encounter - Paige Aparicio - 05/31/2024 11:37 AM EDT Chad left a message requesting a refill on his Gabapentin. He states he thought he should have a new refill but pharmacy says no. He is [facility] [place] Lskmcyjfbl89-10-8256 History of Present illness Narrative* Nael Farias [...] Comment: Result confirmed on concentration. Performed at: [address] [id number] Core Maker: Benjamín Vora PhD, Phone: [phone] Allergies Allergen Reactions Capsaicin Diarrhea Dapsone Other [...] for allergies cholecalciferol (Vitamin D-3) 250 MCG (99655 UT) capsule Take 1 capsule by mouth [...] combined with multi morbidity documented in this encounterRusk Rehabilitation CenterXrcvmvvpsa64-57-2413 History of Present illness Narrative* Nadeem Morrison, [...] 2016 Allergic rhinitis 2016 Anxiety 2016 Asthma ([facility]) Cervical strain CVID (common variable immunodeficiency) ([facility]) Dry eyes Eczema 2016 GERD (gastroesophageal reflux disease) H/O stem cell transplant ([facility]) 12/2017 for B Cell Lymphoma History of being hospitalized B cell Lymphoma complications from Chemo (7days) [facility] 10/2017, 10/2017 History of being hospitalized 12/29/2018 for Chemotherapy 21 days History of being hospitalized 12/2018 radition 6 rounds History of being hospitalized 12/2018 T cell transplants Hyperlipidemia (CMS/HCC) Hypertension (CMS/HCC) Kidney stone on left side Liver disease 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 Coordination: Nntzvw-zy-hjsn testing and rapid alternating movements are normal [...] the brain in 01/15/2019 at [facility] notes developmental venous anomalies and also notes [...] oncologist is Dr. Tyson at [facility]. She follows with the patient at [facility] in [place]. Patient's initial non-Hodgkin's lymphoma was treated and [...] plan, and return instructions documented in this [facility]08-27-2024 History of Present illness Narrative* Anirudh Sears MD - 04/27/2024 4:20 PM EDT Consent: Verbal consent was requested and obtained from patient on this date for a telehealth visit. Patient ID: Katerina Danielle is a 63 y.o. male. Subjective HPI A telephone visit (audio only) between the patient at home and the provider at [facility] was utilized to provide this telehealth service. [...] Labs/Imaging/Pathology: personally reviewed reports and images in [employer] electronic medical record system. Pertinent results as it related to the plan represented in below in assessment and plan. Assessment/Plan 1. 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 Patient will consider 6. Hypogammaglobulinemia: - Restarted [...] has been transcribed using a medical assistant per diem and there is a possibility of unintentional typing misprints. There are no diagnoses linked to this encounter. Anirudh Sears MD Hematology/Oncology [facility] Scribe Attestation By signing my name below, I, Kirstie Ronny Yeh attest that this documentation has been prepared under the direction and in the presence of Anirudh Sears MD. documented in this encounterOhioHealth Grady Memorial Hospital Work Phone: [phone]) [phone] Evaluation + Plan note* Assessment & Plan Note - Carolyn Rubioildefonso - 01/05/2024 11:13 AM EDTAssociated Problem(s): Asthma ([facility]) ACT is 19. Sx are controlled currently. [...] see him back in 6 months [facility] Work Phone: [phone] 345-375405-06-2024 Miscellaneous Notes* Assessment & Plan Note - Carolyn Dormanpam - 01/05/2024 11:13 AM EDTAssociated Problem(s): Asthma ([facility]) ACT is 19. Sx are controlled currently. [...] for the patient. Continue Gammagard infusions at [facility]. He will maintain his current dose. His last level in October 2023 was a little low at 699. Nonetheless, the patient has not had any infections and therefore wewill not increase his dose at this time. I would like to check it in 3 months time. documented in this encounterOhioHealth Grady Memorial Hospital Work Phone: [phone]) [phone] Evaluation + Plan note* Assessment & Plan [...] for the patient. Continue Gammagard infusions at [facility]. He will maintain his current dose. His last level in October 2023 was a little low at 699. Nonetheless, the patient has not had any infections and therefore wewill not increase his dose at this time. I would like to check it in 3 months time. [facility] Work Phone: [phone] History of Present illness Narrative* Sandra Cole MD - 01/05/2024 10:45 AM EDT Subjective Katerina Danielle is a 63 y.o. male who presents for Immunodeficiency. Chief Complaint Patient presents with Immunodeficiency Since last visit, 12-20-22, patient states his infusions at [facility] are going well but pays over $700 [...] for the patient. Continue Gammagard infusions at [facility]. He will maintain his current dose. His last level in October 2023 was a little low at 699. Nonetheless, the patient has not had any infections and therefore wewill not increase his dose at this time. I would like to check it in 3 months time. Asthma ([facility]) ACT is 19. Sx are controlled currently. [...] exam, discussion and plan. [facility] Work Phone: 1(939) 400-203205-06-2024 Instructions* Patient Instructions* Carolyn Morrison - 01/05/2024 10:45 AM EDT Continue Wixela or Breo one inhalation one time a day. Continue Gammagard infusions at [facility] as scheduled. Follow up in 6 months or sooner if symptoms worsen prior. documented in this encounterOhio[facility] Work Phone: 1(369) 784-970701-10-2024 Evaluation + Plan note* Assessment & Plan [...] staff to send him co-pay assistance through [employer]. According to the patient his primary care recommended albuterol 2 inhalations twice a day as a maintenance and then every 4 hours as needed, but I am concerned about him developing tolerance to the albuterol and not having his underlying inflammation treated with a maintenance medication. Therefore I am going to attempt to get a coveredinhaled corticosteroid for maintenance. [facility] Work Phone: 1(295) 572-966401-10-2024 Miscellaneous Notes* Assessment & Plan Note - [...] staff to send him co-pay assistance through [employer]. According to the patient his primary care [...] EST Associated Problem(s): CVID (common variable immunodeficiency) ([facility]) Unfortunately, this is an insurance nightmare. His benefits have changed. I am going to ask my staff to look into what the actual issue is. He is willing to go to IVIG monthly which is probably his best bet. Unfortunately he does live some distance away. We will try to coordinate care with [facility]. Due to his kidney disease I do not really feel that IV is the best option, but under the [facility] IV is better than nothing. documented in this [facility]Ohio[facility] Work Phone: [phone]) 861-620401-10-2024 Evaluation + Plan note* Assessment & Plan Note - Sandra Cole MD - 09/10/2023 8:44 AM ESTAssociated Problem(s): CVID (common variable immunodeficiency) ([facility]) Unfortunately, this is an insurance nightmare. His benefits have changed. I am going to ask my staff to look into what the actual issue is. He is willing to go to IVIG monthly which is probably his best bet. Unfortunately he does live some distance away. We will try to coordinate care with [facility]. Due to his kidney disease I do not really feel that IV is the best option, but under the [facility] IV is better than nothing. [facility] Work Phone: 1(112) 990-225601-09-2024 History of Present illness Narrative* Sandra Cole [...] him 08/12/2023 that he was switched to [place] who never contacted him despite him calling them twice. When they called him, they told him it would cost $2500 a month and that did not include his pump and supplies. He states his stomach feels better than ever after 2 years on HyQvia compared to tender and sore prior. [facility] did test positive for COVID at [facility] and again on 08/27/2023. He and his [...] Judgment normal. Assessment/Plan CVID (common variable immunodeficiency) ([facility]) Unfortunately, this is an insurance nightmare. His benefits have changed. I am going to ask my staff to look into what the actual issue is. He is willing to go to IVIG monthly which is probably his best bet. Unfortunately he does live some distance away. We will try to coordinate care with [facility]. Due to his kidney disease I do not really feel that IV is the best option, but under the [facility] IV is better than nothing. Asthma Patient states the cost of his Arnuity went up dramatically this year. He is unable to afford the $42 a month co-pay. Therefore, I am going to try to change him to a lower cost inhaler. I am also going to ask my staff to send him co-pay assistance through [employer]. According to the patient his primary care [...] exam, discussion and plan. documented in this encounterOhio[facility] Work Phone: 1(518) 899-837601-09-2024 Instructions* Patient Instructions* Carolyn Morrison - 09/09/2023 5:15 PM EST Obtain blood work to check IgG, IgA and IgM levels. We will call you with results, recommendations and followup plan. Compare QVAR to Arnuity. Use albuterol only as needed. I will let you know what our plan is for your infusions. documented in this encounterOhio[facility] Work Phone: 1([phone]) 345-742712-13-2023 History of Present illness Narrative* Anirudh Sears [...] Dr. Rodriguez in oncology at [facility] for evaluation. 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 Bone marrow biopsy was done which was negative for involvement with lymphoma . He also underwent an LP with low yield. Because of his meningeal enhancement and location close to [employer], he was treated with hyperCVAD-MA. He received [...] was compared to this patient's previous biopsy ([id number]). The previous biopsydemonstrated areas of necrosis and [...] TP53 mutations. The patient was enrolled on [id number], Venetoclax+RICE. Cycle 1 started 10/29/17. Had tumor [...] pneumonitis. The patient was recently readmitted to [facility] (06/16-06/18/18) for fever and PNA. 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 He completed by mouth Levaquin. The patient was admitted to [facility] (08/18-08/21/18) with a new PE. He [...] CAR T Cell infusion 01/04/19 with tisagenlecleucel ([employer]) with preparative regimen of fludarabine and cytoxan. [...] Labs/Imaging/Pathology: personally reviewed reports and images in [employer] electronic medical record system. Pertinent results as it related to the plan represented in below in assessment and plan. Assessment/Plan 1. 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 Patient will consider 6. Hypogammaglobulinemia: - Restarted [...] has been transcribed using a medical assistant per diem and there is a possibility of unintentional typing misprints. Diagnoses and all orders for this visit: Hypogammaglobulinemia (CMS/HCC) - CBC and Auto Differential; Future - Comprehensive Metabolic Panel; Future - Lactate dehydrogenase; Future - Clinic Appointment Request Follow up; Future Anirudh Sears MD Hematology/Oncology [facility] [place] [facility] Scribe Attestation By signing my name below, I Bernarda Ronny Noe attest that this documentation has been prepared under the direction and in the presence of Anirudh Sears MD. documented in this [facility] Work Phone: [phone]) 142-225306-22-2023 History of Present illness Narrative* OPIOID * [...] of IV drug abuse, recent trauma. [facility] Work Phone: [phone]) 702-146706-22-2023 History of Present illness Narrative* OPIOID * [...] incontinence,history of IV drug abuse, recent trauma. [facility] Work Phone: [phone]) [phone] History of Present illness Narrative* OPIOID * [...] incontinence,history of IV drug abuse, recent trauma. [facility] Work Phone: [phone]) [phone] History of Present illness Narrative* Patient was [...] that point, PCP referred patient to a [employer] at [facility]. * He saw Nohelia Machado DO, Super[employer] at [facility], did a breathing test and ordered [...] he does have bloating and tenderness after. [facility] [employer] DO Work Phone: [phone] History of Present illness Narrative* Patient was [...] that point, PCP referred patient to a Supervisor [employer] at [facility]. * He saw Nohelia Machado DO, [employer] at [facility], did a breathing test and ordered [...] he does have bloating and tenderness after. FF-Pgtpcmtcgb-Fuuvsskt 2100 DO Work Phone: [phone]) [phone] History of Present illness Narrative* Patient was [...] his second COVID booster Friday. * . [employer] DO Work Phone: [phone]) 181-768509-20-2021 History of Present illness Narrative* Patient was [...] his second COVID booster Friday. * . MF-Xzjufzayhj-Fnsvpbyc 2100 DO Work Phone: [phone] History of Present illness Narrative* Since last visit, 09/06/2020, patient reports * He had his labs done at [facility] 2 weeks ago and he requested [...] Evaluation noteNo assessment information available [facility] Work Phone: Evaluation note* Diagnosis Hypogammaglobulinemia (CMS/HCC) Unspecified hypogammaglobulinemia documented in this encounter [facility] Work Phone: Evaluation note* Diagnosis Hypogammaglobulinemia (CMS/HCC)- Primary Unspecified hypogammaglobulinemia CVID (common variable immunodeficiency) ([facility]/HCC) Common variable immunodeficiency documented in this encounter [facility] Work Phone: Evaluation note* Diagnosis Stage 3b chronic kidney disease (CMS/HCC)- Primary Essential hypertension Unspecified essential hypertension Hyperparathyroidism, secondary ([facility]/HCC) documented in this encounter [facility] Work Phone: Evaluation note* Diagnosis Asthma, unspecified asthma severity, unspecified whether complicated, unspecified whether persistent (HHS-HCC)- Primary CVID (common variable immunodeficiency) (Multi) Common variable immunodeficiency documented in this encounter [facility] Work Phone: Evaluation note* Diagnosis Onset Date Resolution Status B-cell lymphoma acuteDDD (degenerative disc disease), cervicalacuteMuscle spasmacuteOther chronic painacute [facility] Work Phone: Evaluation note* Diagnosis Chronic pain syndrome 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 Spasm Abnormal involuntary movements Moderate persistent asthma without complication ([facility]) Morbid obesity ([facility]) Morbid obesity BMI 35.0-35.9,adult documented in this encounter [facility] HealthcareEvaluation note* Diagnosis Hypogammaglobulinemia (Multi)- Primary Unspecified hypogammaglobulinemia CVID (common variable immunodeficiency) Common variable immunodeficiency Asthma, unspecified asthma severity, unspecified whether complicated, unspecified whether persistent (HHS-HCC)- Primary CVID (common variable immunodeficiency) Common variable immunodeficiency Stage 3b chronic kidney disease (Multi)- Primary Essential hypertension Unspecified essential hypertension Hyperparathyroidism, secondary (Multi) documented in this encounter [facility] Work Phone: Evaluation note* Diagnosis Onset Date Resolution Status B-cell lymphoma acuteDDD (degenerative disc disease), cervicalacuteMuscle spasmacuteOther chronic painacuteB-cell lymphomaacuteDDD (degenerative disc disease), cervical acuteMuscle spasmacuteOther chronic painacute [facility] Work Phone: Evaluation note* Diagnosis Hypogammaglobulinemia (Multi)- Primary Unspecified hypogammaglobulinemia CVID (common variable immunodeficiency) Common variable immunodeficiency Asthma, unspecified asthma severity, unspecified whether complicated, unspecified whether persistent (HHS-HCC)- Primary CVID (common variable immunodeficiency) Common variable immunodeficiency CVID (common variable immunodeficiency)- Primary Common variable immunodeficiency Asthma, unspecified asthma severity, unspecified whether complicated, unspecified whether persistent (HHS-HCC) documented in this encounter [facility] Work Phone: Evaluation note* Diagnosis Hypogammaglobulinemia [...] (Multi) Unspecified hypogammaglobulinemia documented in this encounter [facility] Work Phone: Evaluation note* Diagnosis Hypogammaglobulinemia (Multi)- Primary Unspecified hypogammaglobulinemia CVID (common variable immunodeficiency) (Multi) Common variable immunodeficiency Asthma, unspecified asthma severity, unspecified whether complicated, unspecified whether persistent (HHS-HCC)- Primary CVID (common variable immunodeficiency) (Multi) Common variable immunodeficiency 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 (Multi)- Primary Hypogammaglobulinemia (Multi) Unspecified hypogammaglobulinemia documented in this encounter [facility] Work Phone: Evaluation note* Diagnosis Cervical [...] body region (Multi) documented in this encounter [facility] Work Phone: Evaluation note* Diagnosis Encounter [...] without complication (HHS-HCC) documented in this encounter [facility] Work Phone: Evaluation note* Diagnosis Hypogammaglobulinemia [...] solid organs- Primary documented in this encounter [facility] Work Phone: Evaluation note* Diagnosis Hypogammaglobulinemia [...] body region (Multi) documented in this encounter [facility] Work Phone: Evaluation note* Diagnosis Nausea- Primary Nausea alone Moderate persistent asthma without complication (HCC) Drug-induced diffuse interstitial pulmonary fibrosis Chronic pain syndrome Spasm Abnormal involuntary movements documented in this encounter [facility] HealthcareEvaluation note* Diagnosis Edema of both legs- Primary Edema Drug-induced diffuse interstitial pulmonary fibrosis Moderate persistent asthma without complication (HCC) Systolic dysfunction Unspecified heart disease Stage 3b chronic kidney disease ([facility]-HCC) documented in this encounter [facility] HealthcareEvaluation note* Diagnosis Chronic pain syndrome- Primary Moderate persistent asthma without complication (HCC) Drug-induced diffuse interstitial pulmonary fibrosis Morbid obesity ([facility]) Morbid obesity BMI 37.0-37.9, adult Stage 3b chronic kidney disease ([facility]) Venous insufficiency Unspecified venous (peripheral) insufficiency documented in this encounter [facility]* Diagnosis Venous insufficiency Unspecified venous (peripheral) insufficiency documented in this encounter [facility] HealthcareEvaluation note* Diagnosis Hypogammaglobulinemia (Multi)- Primary [...] 3b CKD (Multi) documented in this encounter [facility] Work Phone: History of Present illness [...] is currently asymptomatic. No associated symptoms are reported.-[place] [address] DO Work Phone: History of Present illness [...] is currently asymptomatic. No associated symptoms are reported.-[place] [address] DO Work Phone: History of Present illness Narrative* Christopher Watkins MD - 12/05/2023 10:10 AM EDT Katerina Danielle 63 y.o. @WT@ N/Room: [id number]/Room/bed info not found Subjective: The patient is [...] mg/3 mL nebulizer solution Inhale. artificial tears, owzvocr-mjopjfu-cqdtykjx, 0.1-0.3-0.2 % ophthalmic solution Administer into affected [...] Onco-Nephrology Program Division of Nephrology & Hypertension [facility] documented in this [facility] Work Phone: History of Present illness Narrative* Christopher Watkins MD - 06/11/2024 10:30 AM EDT Katerina Danielle 63 y.o. @WT@ [facility]/Room: [id number]/Room/bed info not found Subjective: The patient is [...] mg/3 mL nebulizer solution Inhale. artificial tears, kcxlijq-xguaizr-nqvgnmih, 0.1-0.3-0.2 % ophthalmic solution Administer into affected [...] Onco-Nephrology Program Division of Nephrology & Hypertension [facility] Work Phone: History of Present illness Narrative* Christopher Watkins MD - 02/17/2025 11:30 AM EDT Katerina Danielle 64 y.o. @WT@ N/Room: [id number]/Room/bed info not found Subjective: The patient is [...] Onco-Nephrology Program Division of Nephrology & Hypertension [facility] [1] Current Outpatient Medications Medication Sig Dispense Refill albuterol 0.63 mg/3 mL nebulizer solution Inhale. artificial tears, qhiipaf-zqsptrj-iyaanwik, 0.1-0.3-0.2 % ophthalmic solution Administer into affected [...] medications for this visit. documented in this [facility] Work Phone: Family History Grandparent Name [...] section and content) DATE CREATED AUTHOR 01/25/2020 [place] [facility] DATE CREATED AUTHOR AUTHOR'S ORGANIZ ATION 08/22/2022 [facility] DATE CREATED AUTHOR AUTHOR'S ORGANIZ ATION 01/09/2023 [facility] DATE CREATED AUTHOR AUTHOR'S ORGANIZ ATION 02/22/2023 [facility] DATE CREATED AUTHOR AUTHOR'S ORGANIZ ATION 06/05/2023 [facility] DATE CREATED AUTHOR AUTHOR'S ORGANIZ ATION 06/05/2023 [employer] DATE CREATED AUTHOR AUTHOR'S ORGANIZ ATION 04/22/2024 [facility] DATE CREATED AUTHOR AUTHOR'S ORGANIZ ATION 02/12/2025 [facility] DATE CREATED AUTHOR AUTHOR'S ORGANIZ ATION 05/26/2025 [facility] DATE CREATED AUTHOR AUTHOR'S ORGANIZ ATION 07/13/2025 [facility] (unrecognized sec tion and content) Team [...] Date Nael Farias MD [address] [place] [address] PCP - Uohuwuz57/18/18 Anirudh Sears MD [address] [place] [address] [address] [place] [address] Consulting PhysicianHematology and Bdnkpuqu31/13/23Te MemberRelationship SpecialtyStart DateEnd Date Nael Farias MD [address] [place] [address] PCP - Gelfqgx67/18/18 Anirudh Sears MD [address] [place] [address] [address] [place] [address] Consulting PhysicianHematology and Mlvrtobv02/13/23 MemberRelationship SpecialtyStart DateEnd Date Nael Farias MD [address] [place], [place] [address] [address] PCP - Gobnwxq59/18/18 Anirudh Sears MD [address] [place] [address] [address] [place] [address] Consulting PhysicianHematology and Jcvwaozw34/13/23Te MemberRelationship SpecialtyStart DateEnd Date Nael Farias MD [address] [facility] [place] [address] PCP - Rtlqrey10/18/18 Anirudh Sears MD [address] [place] [address] [address] [place] [address] Consulting PhysicianHematology and Bnmiaphc21/13/23 Christopher Watkins MD [address] [place] [address] [place] [address] Consulting PhysicianNephrology12/08/23 Team Status: Inactive Member Role Status Dates Nael Farias MD 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 Provider Active Start: May 19, 2024 End: May 19, 2024Elia Malik MDAttaiden ProviderActiveStart: May 19, 2024 End: May 19Wild Calverterring ProviderActive Start: May 19, 2024 End: May 19, 2024Team MemberRelationshipSpecialtyStart DateEnd Date Nael Farias MD [address] [place] [address] (Fax) PCP - Hansen OK09/01/21 Nael Farias MD [address] [place] [address] PCP - GeneralFamily Medicine01/31/23 Nohelia Machado DO [address] [place] [address] Referring PhysicianPulmonary Disease10/09/23 Christopher Watkins MD [address] [place] [address] [place] [address] Referring PhysicianNephrology10/09/23 [place] [address] [place] [address] Referring PhysicianAllergy and Immunology10/09/23 Anirudh Sears Referring PhysicianOncolog09/01/18Team MemberRelationshipSpecialtyStart DateEnd Date Nael Farias MD [address] [place] [address] PCP - Hansen MA09/01/21 Nael Farias MD [address] [place] [address] PCP - GeneralFamily Medicine01/31/23 Nohelia Machado DO [address] [place] [address] Referring PhysicianPulmonary Disease10/09/23 [place] [address] [place] [address] Referring PhysicianNephrology10/09/23 [place] [address] [address] [place] [address] Referring PhysicianAllergy and Immunology10/09/23 Anirudh Sears Referring PhysicianOncolog09/01/18Team MemberRelationshipSpecialtyStart DateEnd Date Nael Farias MD [address] [place] [address] PCP - Yefhzuf08/18/18 Anirudh Sears MD [address] [place] [address] [address] [place] [address] Consulting PhysicianHematology and Ynbtciyw30/13/23 [place] [address] [facility] [address] [place] [address] Consulting PhysicianNephrology12/08/23 Team Status: Inactive Member Role Status Dates Nael Farias MD 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 Provider Active Start: June 16, 2024 End: June 16, 2024Elia Malik MDAttending ProviderActiveStart: June 16, 2024 End: June 16, 2024Team MemberRelationshipSpecialtyStart DateEnd Date Nael Farias MD [address] [place] [address] (Fax) PCP - Aranza MIN09/01/21 Nael Farias MD [address] [place] [address] (Fax) PCP - GeneralFamily Medicine01/31/23 Nohelia Machado DO [address] [place] [address] Referring PhysicianPulmonary Disease10/09/23 Christopher Watkins MD [address] [place] [address] [place] [address] Referring PhysicianNephrology10/09/23 [place] [address] [address] [place] [address] Referring PhysicianAllergy and Immunology10/09/23 Anirudh Sears Referring PhysicianOncolog09/01/18Team MemberRelationshipSpecialtyStart DateEnd Date Nael Farias MD [address] [place] [address] PCP - Zwbcolr65/18/18 Anirudh Sears MD [address] [place] [address] [address] [place] [address] Consulting PhysicianHematology and Nrfaexpu34/13/23 Christopher Watkins MD [address] [place] [address] [address] [place], [place] [address] Consulting PhysicianNephrology12/08/23 Sandra Cole MD [address] [facility] [address] [place] [address] Referring PhysicianAllergy and Cujgmnudvj04/24/24Team MemberRelationship SpecialtyStart DateEnd Date Nael Farias MD [address] [place] [address] (Fax) PCP - Hansen MA09/01/21 Nael Farias MD [address] [place] [address] PCP - GeneralFamily Medicine01/31/23 Nohelia Machado DO [address] [place] [address] Referring PhysicianPulmonary Disease10/09/23 Christopher Watkins MD [address] [place] [address] [place] [address] Referring PhysicianNephrology10/09/23 [place] [address] [place] [address] Referring PhysicianAllergy and Immunology10/09/23 Anirudh Sears Referring PhysicianOncolog09/01/18Team MemberRelationshipSpecialtyStart DateEnd Date Nael Farias MD [address] [place] [address] PCP - Tnrblzs48/18/18 Anirudh Sears MD [address] [place] [address] [address] [place] [address] Consulting PhysicianHematology and Denmshce04/13/23 Christopher Watkins MD [address] [place] [address] [address] [place] [address] Consulting PhysicianNephrology12/08/23 Sandra Cole MD [address] [facility] [address] [place] [address] Referring PhysicianAllergy and Rcdscjfecx71/24/24Team MemberRelationship SpecialtyStart DateEnd Date Nael Farias MD [address] [place] [phone] PCP - Wmxjlen53/18/18 Anirudh Sears MD [id number] [place] [address] [facility] 1 [place] [address] Consulting PhysicianHematology and Fafwpkzp77/13/23 Christopher Watkins MD [address] [place] [address] [facility] 3 [place] [address] Consulting PhysicianNephrology12/08/23Te MemberRelationshipSpecialtyStart Date End Date Nael Farias MD [address] [facility] [place] [address] PCP - Hansen MA09/01/21 Nael Farias MD [address] [place] [address] PCP - GeneralFamily Medicine01/31/23 Nohelia Machado DO [address] [place] [address] Referring PhysicianPulmonary Disease10/09/23 [place] [address] [facility] [place] [address] Referring PhysicianNephrology10/09/23 [place] [address] [place] [address] Referring PhysicianAllergy and Immunology10/09/23 Anirudh Sears Referring PhysicianOncolog09/01/18Team MemberRelationshipSpecialtyStart DateEnd Date Nael Farias MD [address] [place] [address] (Fax) PCP - Hansen OK09/01/21 Nael Farias MD [address] [place] [address] PCP - [facility] Medicine01/31/23 Nohelia Machado DO [address] [place] [address] Referring PhysicianPulmonary Disease10/09/23 [place] [address] [place] [address] Referring PhysicianNephrology10/09/23 [place] [address] [place] [address] Referring PhysicianAllergy and Immunology10/09/23 Anirudh Sears Referring PhysicianOncolog09/01/18Team MemberRelationshipSpecialtyStart DateEnd Date Nael Farias MD [address] [facility] [place] [address] (Fax) PCP - Hansen OK09/01/21 Nael Farias MD [address] [place] [address] [facility]/31/23 Nohelia Machado DO [address] [place] [address] Referring PhysicianPulmonary Disease10/09/23 Christopher Watkins MD [address] [place] [address] [place] [address] Referring PhysicianNephrology10/09/23 [place] [address] [address], [facility] Referring PhysicianAllergy and Immunology10/09/23 Anirudh Sears Referring PhysicianOncolog09/01/18Team MemberRelationshipSpecialtyStart DateEnd Date Nael Farias MD [address] [place] [address] (Fax) PCP - Aranza MIN09/01/21 Nael Farias MD [address] [place] [address] PCP - GeneralFamily Medicine01/31/23 Nohelia Machado DO [address] [place] [address] Referring PhysicianPulmonary Disease10/09/23 Christopher Watkins MD [address] [place] [address] [place] [address] Referring PhysicianNephrology10/09/23 [place] [address] [address], [phone] Referring PhysicianAllergy and Immunology10/09/23 Anirudh Sears Referring PhysicianOncology1Team MemberRelationshipSpecialtyStart DateEnd Date Nael Farias MD [address] [place] [address] (Fax) PCP - Aranza MIN09/01/21 Nael Farias MD [address] [place] [address] (Fax) PCP - GeneralFamily Medicine01/31/23 Nohelia Machado DO [address] [place] [address] Referring PhysicianPulmonary Disease10/09/23 Christopher Watkins MD [address] [place] [address] [place] [address] Referring PhysicianNephrology10/09/23 [place] [address] [place] [address] Referring PhysicianAllergy and Immunology10/09/23 Anirudhrandal Sears Referring PhysicianOncolog09/01/18Team MemberRelationshipSpecialtyStart DateEnd Date Nael Farias MD [address] [place] [address] (Fax) PCP - Hansen OK09/01/21 Nael Farias MD [address] [place] [address] (Fax) PCP - GeneralFamily Medicine01/31/23 Nohelia Machado DO [address] [place] [address] Referring PhysicianPulmonary Disease10/09/23 Christopher Watkins MD [address] [place] [address] [place] [address] Referring PhysicianNephrology10/09/23 [place] [address] [place] [address] Referring PhysicianAllergy and Immunology10/09/23 Anirudh Orion Referring PhysicianOncolog09/01/18Team MemberRelationshipSpecialtyStart DateEnd Date Nael Farias MD [address] [place] [address] PCP - Tricvao38/18/18 Anirudh Sears MD [address] [place] [address] [address] [place] [address] Consulting PhysicianHematology and Vohkemrh54/13/23 Christopher Watkins MD [address] [place] [address] [address] [place] [address] Consulting PhysicianNephrology12/08/23 Sandra Cole MD [address] [facility] [place] [address] [place] [address] Referring PhysicianAllergy and Kdoywgxmuj80/24/24Team MemberRelationship SpecialtyStart DateEnd Date Nael Farias MD [address] [place] [address] PCP - Hansen OK09/01/21 Nael Farias MD [address] [place] [address] PCP - GeneralFamily Medicine01/31/23 Nohelia Machado DO [address] [place] [address] Referring PhysicianPulmonary Disease10/09/23 Christopher Watkins MD [address] [place] [address] [place] [address] Referring PhysicianNephrology10/09/23 [place] [address] [place] [address] Referring PhysicianAllergy and Immunology10/09/23 Anirudh Sears Referring PhysicianOncolog09/01/18Team MemberRelationshipSpecialtyStart DateEnd Date Nael Farias MD [address] [place] [address] (Fax) PCP - Aranza MIN09/01/21 Nael Farias MD [address] [place] [address] (Fax) PCP - GeneralFamily Medicine01/31/23 Nohelia Machado DO [address] [place] [address] Referring PhysicianPulmonary Disease10/09/23 Christopher Watkins MD [address] [place] [address] [place] [address] Referring PhysicianNephrology10/09/23 [place] [address] [place] [address] Referring PhysicianAllergy and Immunology10/09/23 Anirudhrandal Sears Referring PhysicianOncology1Team MemberRelationshipSpecialtyStart DateEnd Date Nael Farias MD [address] [place] [address] (Fax) PCP - Aranza MIN09/01/21 Nael Farias MD [address] [place] [address] (Fax) PCP - GeneralFamily Medicine01/31/23 Nohelia Machado DO [address] [place] [address] Referring PhysicianPulmonary Disease10/09/23 Christopher Watkins MD [address] [place] [address] [place] [address] Referring PhysicianNephrology10/09/23 [place] [address] [address] [place] [address] Referring PhysicianAllergy and Immunology10/09/23 Anirudh Sears Referring PhysicianOncology1Team MemberRelationshipSpecialtyStart DateEnd Date Nael Farias MD [address] [place] [address] PCP - Hnkpwud57/18/18 Anirudh Sears MD [address] [place] [address] [address] [place] [address] Consulting PhysicianHematology and Ettqjitz89/13/23 Christopher Watkins MD [address] [place] [address] [address] [place] [address] Consulting PhysicianNephrology12/08/23 Sandra Cole MD [address] [facility] [place] [address] [place] [address] Referring PhysicianAllergy and Tpgyzhtvbm41/24/24Te MemberRelationship SpecialtyStart DateEnd Date Nael Farias MD [address] [place] [address] PCP - Qfsjmri77/18/18 Anirudh Sears MD [address] [place] [address] [address] [place] [address] Consulting PhysicianHematology and Nsjsvdvb39/13/23 Christopher Watkins MD [address] [place] [address] [address] [place] [address] Consulting PhysicianNephrology12/08/23 Sandra Cole MD [address] [facility] [place] [address] [place] [address] Referring PhysicianAllergy and Avwqnfocya03/24/24Team MemberRelationship SpecialtyStart DateEnd Date Nael Farias MD [address] [place] [address] (Fax) PCP - Aranza MIN09/01/21 Nael Farias MD [address] [place] [address] (Fax) PCP - GeneralFamily Medicine01/31/23 Nohelia Machado DO [address] [place] [address] Referring PhysicianPulmonary Disease10/09/23 [place] [address] [place] [address] Referring PhysicianNephrology10/09/23 [place] [address] [place] [address] Referring PhysicianAllergy and Immunology10/09/23 Anirudh Sears Referring PhysicianOncology1Team MemberRelationshipSpecialtyStart DateEnd Date Nael Farias MD [address] [place] [address] (Fax) PCP - Aranza MIN09/01/21 Nael Farias MD [address] [place] [address] (Fax) PCP - GeneralFamily Medicine01/31/23 Nohelia Machado DO [address] [place] [address] Referring PhysicianPulmonary Disease10/09/23 Christopher Watkins MD [address] [place] [address] [place] [address] Referring PhysicianNephrology10/09/23 [place] [address] [address], [facility] Referring PhysicianAllergy and Immunology10/09/23 Anirudh Orion Referring PhysicianOncology1Team MemberRelationshipSpecialtyStart DateEnd Date Nael Farias MD [address] [place] [address] (Fax) PCP - Aranza MIN09/01/21 Nael Farias MD [address] [place] [address] (Fax) PCP - Generalmily Medicine01/31/23 Nohelia Machado DO [address] [place] [address] Referring PhysicianPulmonary Disease10/09/23 Christopher Watkins MD [address] [place] [address] [place] [address] Referring PhysicianNephrology10/09/23 [place] [address] [address] [place], [facility] Referring PhysicianAllergy and Immunology10/09/23 Anirudhrandal Sears Referring PhysicianOncology1Team MemberRelationshipSpecialtyStart DateEnd Date Nael Farias MD [address] [place] [address] (Fax) PCP - Hansen MA09/01/21 Nael Farias MD [address] [place] [address] (Fax) PCP - GeneralFamily Medicine05/09/25 Nohelia Machado DO [address] [place] [address] Referring PhysicianPulmonary Disease10/09/23 Christopher Watkins MD [address] [place] [address] [place] [address] Referring PhysicianNephrology10/09/23 [place] [address] [place] [address] Referring PhysicianAllergy and Immunology10/09/23 Anirudhrandal Sears Referring PhysicianOncolog09/01/18Team MemberRelationshipSpecialtyStart DateEnd Date Nael Farias MD [address] [address] (Fax) PCP - Hansen MA09/01/21 Nael Farias MD [address] [address] (Fax) PCP - GeneralFamily Medicine05/09/25 Nohelia Machado DO [address] [place] [address] Referring PhysicianPulmonary Disease10/09/23 Christopher Watkins MD [address] [place] [address] [place] [address] Referring PhysicianNephrology10/09/23 [place] [address] [place] [address] Referring PhysicianAllergy and Immunology10/09/23 Anirudhrandal Sears Referring PhysicianOncology1Team MemberRelationshipSpecialtyStart DateEnd Date Nael Farias MD [address] [address] (Fax) PCP - Aranza OK09/01/21 Nael Farias MD [address] [place] [address] (Fax) PCP - GeneralFamily Medicine05/09/25 Nohelia Machado DO [address] [place] [address] Referring PhysicianPulmonary Disease10/09/23 Christopher Watkins MD [address] [place] [address] [place] [address] Referring PhysicianNephrology10/09/23 [place] [address] [place], [facility] Referring PhysicianAllergy and Immunology10/09/23 Anirudh Sears Referring PhysicianOncology1Team MemberRelationshipSpecialtyStart DateEnd Date Nael Farias MD [address] [place] [address] (Fax) PCP - Aranza OK09/01/21 Nael Farias MD [address] [place] [address] (Fax) PCP - GeneralFamily Medicine05/09/25 Nohelia Machado DO [address] [place] [address] Referring PhysicianPulmonary Disease10/09/23 Christopher Watkins MD [address] [place] [address] [place] [address] Referring PhysicianNephrology10/09/23 [place] [address] [place] [address] Referring PhysicianAllergy and Immunology10/09/23 Anirudhrandal Sears Referring PhysicianOncology1Team MemberRelationshipSpecialtyStart DateEnd Date Nael Farias MD [address] [place] [address] (Fax) PCP - Aranza MIN09/01/21 Nael Farias MD [address] [place] [address] (Fax) PCP - GeneralFamily Medicine05/09/25 Nohelia Machado DO [address] [place] [address] Referring PhysicianPulmonary Disease10/09/23 Christopher Watikns MD [address] [place] [address] [place] [address] Referring PhysicianNephrology10/09/23 [place] [address] [place] [address] Referring PhysicianAllergy and Immunology10/09/23 Anirudhrandal Sears Referring PhysicianOncology1Team MemberRelationshipSpecialtyStart DateEnd Date Nael Farias MD [address] [place] [address] (Fax) PCP - Aranza MIN09/01/21 Nael Farias MD [address] [place] [address] (Fax) PCP - GeneralFamily Medicine05/09/25 Nohelia Machado DO [address] [place] [address] Referring PhysicianPulmonary Disease10/09/23 Christopher Watkins MD [address] [place] [address] [place] [address] Referring PhysicianNephrology10/09/23 [place] [address] [address] [place] [address] Referring PhysicianAllergy and Immunology10/09/23 Anirudh Sears Referring PhysicianOncolog09/01/18Team MemberRelationshipSpecialtyStart DateEnd Date Nael Farias MD [address] [place] [address] PCP - Xljbftm45/18/18 [place] [address] [facility] [address] [place], [place] [address] Consulting PhysicianHematology and Roflwzmb75/13/23 [place] [address] [facility] [address] [place] [address] Consulting PhysicianNephrology12/08/23 Sandra Cole MD [address] [facility], [facility] [address] [place] [address] Referring PhysicianAllergy and Xocgaedeom08/24/24 Goals (unrecognized section and content) Goals may be documented in a n alternate sectionGoals may be documented in an alternate sectionGoals may be documented in an alternate sectionGoals may be documented in an alternate sectionGoals may be documented in an alternate section Reason for Visit (unrecogniz ed section and content) FtcgafTssdyfnxAkqlxo-tgLjbjrtLrkfakxrQebgqt-waJsawmgngyfzrqQrhpd like to discuss new medicationReasonCommentsImmunodeficiencyReasonCommentsAsthmaPainReason CommentsFollow-upACT 19ReasonCommentsPainAsthmaReasonCommentsAnnual ExamReason CommentsFollow-upAct 19ReasonCommentsFollow-upChronic Kidney DiseaseReason CommentsEdemaReasonOnset DateCommentsCare Ezbqocnllivq71/14/2025ReasonComments Follow-upAsthmaACT 22 FOR RECORDS PERTAINING TO PATIENTS [...] BE BASED ON THE PRIMARY CLINICAL RECORDS. [facility] [employer] [facility]. provides no warranty or guarantee of the accuracy or completeness of information in this document.
[2025-08-09 10:12] LABS: Hematocrit 42.2 % (42.0-54.0); Hemoglobin 13.3 g/dL (14.0-18.0); Immature Granulocytes Abs Auto 0.10 10^3/uL (0.00-0.03); Immature Granulocytes Pct Auto 2.0 % (0.0-0.5); Lymphocytes Absolute Auto 1.6 10^3/uL (1.2-3.8); Mean Corpuscular HGB Conc 31.5 g/dL (29.9-35.2); Mean Corpuscular Hemoglobin 26.8 pg (25.9-34.0); Mean Corpuscular Volume 84.9 fL (80.0-94.0); Platelet Count 139 10^3/uL (150-450); Red Blood Count 4.97 10^6/uL (4.70-6.10); White Blood Count 5.0 10^3/uL (4.0-11.0)
[2025-08-09 10:32] LABS: Alanine Aminotransferase 51 U/L (16-63); Albumin Globulin Ratio 0.9; Albumin Level 3.4 g/dL (3.4-5.0); Alkaline Phosphatase 91 U/L (46-116); Anion Gap 10.8; Aspartate Amino Transferase 30 U/L (15-37); Blood Urea Nitrogen 28.0 mg/dL (7.0-18.0); Calcium 9.5 mg/dL (8.5-10.1); Carbon Dioxide 29.9 mmol/L (21.0-32.0); Chloride 107 mmol/L (98-107); Estimated GFR (African America 43 (>=60 mL/min/1.73m^2); Estimated GFR (Non-African Ame 35 (>=60 mL/min/1.73m^2); Globulin 3.6 g/dL; Glucose 74 mg/dL (74-106); Potassium 4.7 mmol/L (3.5-5.1); Sodium 143 mmol/L (136-145); Total Protein 7.0 g/dL (6.4-8.2)
== END 2025-08-09 09:34 | disposition home or self-care (01) ==
LOC: LAB 09:35
PROVIDERS: PCP Family Medicine; Visit Provider Internal Medicine Hematology & Oncology
DX: C83.398 Diffuse large B-cell lymphoma of other extranodal and solid organ sites (principal)
CPT/HCPCS: 36415; 80053; 83615; 85025

== ENCOUNTER 2025-08-22 08:51 | Outpatient (RCR) | payer MEDICARE, SELFPAY ==
[2025-08-22 08:55] VITALS: BP 123/79; PULSE 90; TEMP 35.7; O2SAT 93
[2025-08-22] MEDS: 0.9 % SODIUM CHLORIDE 250 ML 10 ML IV (09:22)
[2025-08-22] MEDS: IMMUN GLOB IV (09:22)
[2025-08-22] MEDS: GLY IV (09:22)
[2025-08-22] MEDS: IGA OV50 IV (09:22)
== END 2025-08-31 23:59 | disposition home or self-care (01) ==
LOC: INF 08:51
PROVIDERS: PCP Family Medicine; Visit Provider Allergy & Immunology
DX: D83.9 Common variable immunodeficiency, unspecified (principal)
CPT/HCPCS: 96365; 96366; J1569